=== PATIENT | female | born 1990 | race Caucasian/White ===

== ENCOUNTER 2021-06-30 10:12 | Emergency (ER) | payer BC, SELFPAY ==
[2021-06-30 10:47] VITALS: BP 124/84; PULSE 100; RESP 18; TEMP 36.6; O2SAT 100
--- NOTE | 2021-06-30 11:10 | ED.GENADULT ---
HPI - General Adult General Chief complaint: Upper Respiratory Infection Stated complaint: nasal congestion Time Seen by Provider: 06/30/21 11:10 Source: patient Mode of arrival: ambulatory Limitations: no limitations History of Present Illness HPI narrative: 30-year-old female patient presents to the [facility] with complaints of nasal congestion that started yesterday. Patient states she is also had some drainage to the back of her throat. Denies fevers, body aches or chills. Patient states she is taking Mucinex for her symptoms. Patient states she feels like a sinus infection is coming on. Patient states she was diagnosed with COVID last month and is fully vaccinated. Denies taking any daily antihistamines or Flonase. Patient recently gave last month but is not currently breast-feeding. Related Data Home Medications Medication Instructions Recorded Confirmed [id number] 1 pkg PO DAILY 06/30/21 06/30/21 [Chewable ] Allergies Allergy/AdvReac Type Severity Reaction Status Date / Time cefdinir Allergy Unknown Anaphylactic Verified 06/30/21 10:55 Shock clindamycin Allergy Unknown Verified 06/30/21 10:55 iodine Allergy Unknown surgical Verified 06/30/21 10:55 prep morphine Allergy Unknown Verified 06/30/21 10:55 povidone-iodine Allergy Unknown RASH Verified 06/30/21 10:55 soap Allergy Unknown RASH Verified 06/30/21 10:55 Sulfa (Sulfonamide Allergy Unknown Verified 06/30/21 10:55 Antibiotics) Review of Systems Review of Systems: CONSTITUTIONAL: Denies fever, chills, or sweats. EYES: Denies visual changes, redness, or discharge. ENT: Positive rhinorrhea, congestion, sore throat, denies otalgia. CARDIOVASCULAR: Denies chest pain, palpitations, or edema. RESPIRATORY: Denies cough or dyspnea. GASTROINTESTINAL: Denies abdominal pain, nausea, vomiting, or diarrhea. GENITOURINARY: Denies dysuria or hematuria. SKIN: Denies rash or itching. MUSCULOSKELETAL: Denies back pain, joint pain, or myalgia. NEUROLOGIC: Denies headache, numbness, or weakness. PSYCHIATRIC: Denies anxiety or depression. [facility] Past Medical History Medical History (Updated 06/30/21 @ 11:18 by GUILLERMO Flores) ADD (attention deficit disorder) Depression Eustachian tube disorder Tubes and ear as child Surgical History Surgical History (Updated 06/30/21 @ 11:11 by GUILLERMO Flores) History of orthopedic surgery Right ankle fracture with hardware Hx of cholecystectomy Family History Family History (Updated 06/30/21 @ 11:11 by GUILLERMO Flores) Grandparent Hypertension Family history of dementia Other Diabetes mellitus Heart disease Social History Social History Smoking status: Current every day smoker Alcohol intake: current Comments At the time of my signature I agree with nursing past medical history, surgical, social, and family history. There is no relevant family history pertinent to the presenting complaint. Exam Narrative: GENERAL: Well-appearing, well-nourished, and in no acute distress. HEAD: Normocephalic, atraumatic. EYES: PERRLA and EOMI. ENT: Nares with erythema and edema noted to the left nare, no rhinorrhea or epistaxis. Mucous membranes moist. Posterior pharynx no erythema, tonsillar lodgment, exudates or lesions present. Bilateral TMs are clear with no erythema or foreign body to the canal. Slight fluid noted behind the tympanic membrane of the right ear. NECK: Supple. No lymphadenopathy CHEST: Clear to auscultation. No respiratory distress. HEART: Regular rate and rhythm. No murmur heard. Normal peripheral pulses. ABDOMEN: Soft, nontender, nondistended, normal active bowel sounds. EXTREMITIES: Normal range of motion. No edema. SKIN: Warm, dry, no rash. NEURO: No focal deficits. Alert and oriented x3. Course Course Level of Care: Express Care Visit Vital Signs Vital signs
== END 2021-06-30 11:25 | disposition home or self-care (01) ==
PROVIDERS: Emergency Provider Nurse Practitioner Family; PCP Nurse Practitioner Family
DX: J30.9 Allergic rhinitis, unspecified (principal)
CPT/HCPCS: 99213; G0463

== ENCOUNTER 2023-05-16 10:07 | Outpatient (RCR) | payer OTHER, SELFPAY ==
--- NOTE | 2023-05-16 17:04 | PC.NURSE ---
In- 1007 Out- 1140 Reason for visit: latch issues History: mother has a history of infertility, she is unsure if she had a large blood loss but shares she believes the placenta was manually removed at [place] where she delivered on 05/13. Mother is a former smoker. She was diagnosis with PCOS as a teenager, yet during fertility testing was told she did not have PCOS. She receives IV infusion of Entyvio for her Chrohn's disease and according to [facility] there is a potential for decreased breast milk. Introductions were made yesterday evening when the parents brought their infant to [place] for a bilirubin test that resulted at 13.1 and did not require medical treatment. Infant was latched to the mothers breast on the left breast, the self detached and nipple was slightly misshaped with flattening on the underside. Mother has purple color to the tips of her nipples so there's a concern for Raynaud's syndrome. Discussed warmth to her nipples. Today is post day 3 so, last evening we were not surprised by the breast milk volume not fully in, however; today her breast are firm, filling and mother is able to express the milk easily with her hands. There were no immediate concerns so we made a LC appt for Friday morning giving mother positioning suggestions, is being supplemented, and making sure was latched deeply to prevent pain. Observations: Infant is weighed, then placed upright on mothers chest. When infant demonstrates feeding cues. Infant is brought to the breast. Infant has a big, open, wide gape, however; sucks once, then holds nipple in the mouth. This action was repeated multiple attempts, then waited 30 minutes, then attempted multiple times again with infant repeating the same actions. We discussed her pumps and breast shield sizes. She has a portable pump that I discouraged using based on research doesn't support that type of pump building a adequate milk supply. She also has a Spectra 2 with breast shield sizes 21mm. Mothers nipples measure 12mm and she was instructed to order a smaller breast shield as having one that is too big can cause injury and decrease the milk supply. weight: Mother reports weight 7-0, Lowest weight: 6-8, Last weight: 6-8 Pre-feed weight: 6-9.8 Post-feed weight: Not done as did not breastfeed Plan of Care: Mother will attempt to breastfeed and was instructed to supplement 1.5 oz (EBM or formula) after every feeding if eats 10 times in a 24 hour period of time. Explained to mother that would require less if fed more frequently and fed more supplement if fed less frequently. Mother given pumping instructions for encouraging her milk supply to come to full volume pumping 8 times in 24 hours with 1-2 times at night and to purchase a smaller breast shield. Mother voiced understanding of the information and was given written instructions for pumping, latching, and increasing milk. Reviewed how to find IBCLC resources or MD assistance over the weekend. Follow up plans: Mother will be returning to [facility] 2/3 for 's bilirubin and Laura VENCES is aware of the LC visit and how to make contact with me if needed. Mother will call the next week to follow up. *Follow up phone call margarette mother confirmed she purchased a 15mm breast shield and it will be delivered to her home tomorrow.
== END 2023-08-14 23:59 | disposition home or self-care (01) ==
LOC: ANHOBOP 10:07
PROVIDERS: PCP Nurse Practitioner Family; Visit Provider Pediatrics
DX: Z39.1 Encounter for care and examination of lactating mother (principal)
CPT/HCPCS: 99203; G0463

== ENCOUNTER 2024-04-04 08:05 | Emergency (ER) | payer OTHER, SELFPAY ==
[2024-04-04 08:17] VITALS: BP 123/73; PULSE 98; RESP 18; TEMP 36.6; O2SAT 99
--- NOTE | 2024-04-04 08:21 | ED_ITS ---
HPI - URI/Sore Throat General Chief Complaint: Upper Respiratory Infection Stated Complaint: throat pain Time Seen by Provider: 04/04/24 08:21 Source: patient, RN notes reviewed and old records reviewed Mode of arrival: ambulatory Limitations: no limitations History of Present Illness HPI Narrative: 33-year-old female who presents Express Care with complaints of sinus congestion and drainage on Friday and throat pain started 2 days ago with some difficulty swallowing and pain. patient reports that she has some radiating discomfort to her bilateral ears also. Patient reports she has been taking Zyrtec, Tylenol, and using cough drops. Patient reports she has not had any fevers. MD elicited complaint: sore throat, rhinorrhea, nasal congestion and other ( ear pain) Onset (ago): day(s) ( 5 days nasal congestion and drainage 3 days of sore throat) Consistency: constant Pain scale (0-10): 5 Able to tolerate fluids by mouth: Yes Treatments prior to arrival: acetaminophen and other ( cough drops and Zyrtec) Related Data Home Medications ?Medication ?Instructions ?Recorded ?Confirmed ?Last Taken ?Type vedolizumab 300 mg intravenous 300 mg IV .monthy 07/11/23 02/27/24 Unknown History solution (Entyvio) cetirizine 10 mg capsule (All Day 10 mg PO DAILY PRN 02/27/24 02/27/24 Unknown History Allergy (cetirizine)) Allergies Allergy/AdvReac Type Severity Reaction Status Date / Time clindamycin Allergy Severe Anaphylaxis Verified 04/04/24 08:19 cefdinir Allergy Unknown Anaphylactic Verified 04/04/24 08:19 Shock iodine Allergy Unknown rash Verified 04/04/24 08:19 povidone-iodine Allergy Unknown RASH Verified 04/04/24 08:19 soap Allergy Unknown RASH Verified 04/04/24 08:19 Sulfa (Sulfonamide Allergy Unknown Anaphylactic Verified 04/04/24 08:19 Antibiotics) Shock morphine AdvReac Intermediate Itching Verified 04/04/24 08:19 Review of Systems Review of Systems: CONSTITUTIONAL: reports malaise, no chills, sweats, or fever. EYES: Denies visual changes, redness, or discharge. ENT: Reports rhinorrhea, congestion, no sinus pain, positive otalgia and positive sore throat. CARDIOVASCULAR: Denies chest pain, palpitations, or edema. RESPIRATORY: Reports no cough.? Denies dyspnea. GASTROINTESTINAL: Denies abdominal pain, nausea, vomiting, diarrhea SKIN: Denies rash or itching. MUSCULOSKELETAL: Denies myalgia. NEUROLOGIC: Denies headache. All systems reviewed & are unremarkable except as noted in HPI and below PMFSH Past Medical History Medical History (Updated 04/04/24 @ 08:40 by Juliane Minaya NP) History of pre-eclampsia Obese Crohn's colitis Gestational diabetes Eustachian tube disorder Tubes and ear as child Depression ADD (attention deficit disorder) Surgical History Surgical History (Updated 04/04/24 @ 08:37 by Juliane Minaya NP) History of placement of ear tubes as child H/O LEEP ~2014 History of orthopedic surgery Right ankle fracture with hardware Hx of cholecystectomy Family History Family History Grandparent Hypertension Family history of dementia Heart disease Mother Diabetes mellitus Hypertension Social History Social History Smoking status: Former smoker Alcohol intake: current Substance use: never Do You Feel Safe in your Home?: Yes Lack of Transportation: No Lack of Food: Never True Current Housing: I Have Housing Concerned About Future Housing: No Difficulty Paying Gas/Electric Bills: No Difficulty Paying for Meds: No Currently Unemployed: No Education: Don't Know Difficulty w/ Childcare or Family Care: No Living arrangements: with family Occupation/Education: occupation 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 There is no relevant family history pertinent to the presenting complaint Exam Narrative: GENERAL: Well-appearing, well-nourished, and in no acute distress. HEAD: Normocephalic EYES: PERRLA, conjunctivae clear ENT: Nares clear, turbinates edematous and erythematous, clear discharge. Mucous membranes moist. TM pearly bryan with dull light reflex bilaterally; no tragal tenderness. Oropharynx erythematous without lesions. Tonsils huge red enlarged and without exudate, no drooling, no hoarseness, no trismus, uvula midline and swollen, some postnasal drainage NECK: Supple. positive lymphadenopathy CHEST: Clear to auscultation, breath sounds equal. No wheezing, rhonchi, rales, or stridor. No respiratory distress, speaks in full sentences. SaO2 99% on room air HEART: Regular rate and rhythm. No murmur heard. SKIN: Warm, dry, no rash. NEURO: Alert and oriented x3. PSYCH: Normal mood and affect Course Course Emergency Course: Patient is aware of diagnosis, understands and agrees to treatment plan.? Anticipatory guidance given.? Patient agrees to follow-up as directed and is aware of reasons to seek care at the emergency department. Portions of this record may have been created with voice recognition software Level of Care: Express Care Visit Vital Signs Vital signs: Vital Signs Temperature 36.6 C 04/04/24 08:17 Pulse Rate 98 04/04/24 08:17 Respiratory Rate 18 04/04/24 08:17 Blood Pressure 123/73 04/04/24 08:17 Pulse Oximetry 99 04/04/24 08:17 Oxygen Delivery Room Air 04/04/24 08:17 Temperature 36.6 C 04/04/24 08:17 Pulse Rate 98 04/04/24 08:17 Respiratory Rate 18 04/04/24 08:17 Blood Pressure 123/73 04/04/24 08:17 Pulse Oximetry 99 04/04/24 08:17 Oxygen Delivery Room Air 04/04/24 08:17 Reviewed MDM - URI/Sore Throat MDM Narrative Medical decision making narrative: Differential diagnosis considered: Gonzáles virus, strep pharyngitis, allergic rhinitis, upper respiratory tract infection, sinusitis, rhinosinusitis, nasopharyngitis. viral pharyngitis, otitis media, otitis externa, pneumonia, bronchitis, viral cough syndrome, viral syndrome, and influenza.? Exam findings show no acute concerns or changes; patient is non-toxic appearing and is in no distress.? Patient is appropriate for outpatient treatment and follow-up. Differential Diagnosis Differential diagnosis: Likely upper respiratory infection, sinusitis, viral infection, pharyngitis and other ( strep pharyngitis) Medical Records Attestation: I reviewed the patient's medical records. Lab Data Attestation: I reviewed the patient's lab results. Lab results narrative: strep screen positive Labs: Lab Results 04/04/24 Range/Units 08:32 POC Grp A Strep Screen Positive (Negative) Critical Care Time Critical Care Time Critical Care Time: No Discharge Plan Discharge Clinical Impression: Acute streptococcal pharyngitis Patient Disposition: Home, Self-Care Condition: Stable Instructions: Antibiotic Form, Strep Throat (ED) Additional Instructions: You tested positive for Group A strep . Take the entire course of antibiotics. Throw away your current toothbrush and begin using a new toothbrush in 48 hours in order to prevent re-infection. Sanitize all reusable water bottles . Do not share items with others. Salt water gargles may alleviate some of the throat discomfort. You can take tylenol or ibuprofen per the package instructions for pain/fever. If your symptoms persist, change or worsen significantly before you can contact your personal physician then please, without delay, go to the emergency department for further evaluation. Follow-up with PCP in 7-10 days or sooner if needed Follow up with PCP soon in regards to your blood pressure which is elevated above threshold for referral. Blood pressure above 120/80 may indicate pre- hypertension.Minimal elevation at 123/73 Patient Language: Polish Prescriptions: New amoxicillin 500 mg capsule 500 mg PO Q8H Qty: 30 0RF dexamethasone 6 mg tablet 12 mg PO DAILY 2 Days Qty: 4 0RF No Action etonogestrel-ethinyl estradiol [NuvaRing] 0.12-0.015 mg/24 hr ring 1 vag ring vaginal Q21D Qty: 4 1RF Rx Instructions: place ring vaginally every 21 days to skip cycles Entyvio 300 mg recon soln 300 mg IV .monthy Rx Instructions: administer over 30 mins All Day Allergy (cetirizine) 10 mg capsule 10 mg PO DAILY PRN dextroamphetamine-amphetamine 20 mg capsule,extended release 24hr 20 mg PO DAILY Qty: 30 0RF Follow-up/Referrals: Judy Fishman APRN [Primary Care Provider] - Stand Alone Forms: Work/School Release IP Time of Disposition: 08:52 Quality [place] Coma Scale Eyes: Open Verbal: Oriented and Alert Motor: Follows Commands [place] Coma Total Score: 15
[2024-04-04 08:34] LABS: EDSTREPNEGPOS1 Positive (Negative)
--- OUTSIDE RECORDS SUMMARY | 2024-04-11 06:09 | XMS_ITS | Data Portability ---
Author Organization [place] - [facility] [employer], Main Office Address [address] [place] [address] Assessment No assessment recorded. Plan of Treatment Reminders Order Date Submit Date Provider Last Modified By Organization Details Last Modified Time Details Appointments None record ed. Lab None record ed. Referral None record ed. Procedures None record ed. Surgeries None record ed. Imaging None record ed. Medication Orders None record ed. Patient TargetsNo targets recorded. Patient Instructions Encounter Date Encounter Id Patient Instructions Last Modified By Organization Details Last Modified Time 11/22/2022 [id number] mo fu crohn's, htn, etc. [email or web address] Not available 11/22/2022 10:42:40 Reason for Referral None Reported. Results Created Date Observation Date Name Description Value Unit Range Abnormal Flag Note LastModifiedBy Organization Detail LastModifiedTime 04/12/20 22 04/13/2022 HEMOG LOBIN A1C hemoglobin A1C 5.6 %_of_ total _HGB <5.7 normal For the purpo se of maryan sales for the prese nce of diabe maribell: <5.7% Consi stent with the absen ce of diabe maribell 5.7-6 .4% Consi stent with incre ased risk for diabe maribell (pred iabet es) > or =6.5% Consi stent with diabe maribell This assay resul t is consi stent with a decre ased risk of diabe maribell. Curre ntly, no conse nsus exist alban oliveros use of hemog lobin A1c for diagn osis of diabe maribell in child david. Accor domo to Ameri can Diabe maribell Assoc iatio n (ADA) guide lines , hemog lobin A1c <7.0% repre sents optim al contr ol in non-p regna nt diabe tic patie nts. Diffe rent metri cs may apply to speci fic patie nt popul ation s. Stand ards of Medic al Care in Diabe maribell(A DA). Not Available [address], [address], 04/13/2022 06:48:05 04/12/20 22 04/13/2022 TSH W/REF ADAL TO FT4 TSH w/reflex to FT4 0.53 mIU/L normal Refer ence Range > or = 20 Years 0.40- 4.50 Pregn hermann Range s First trime ster 0.26- 2.66 Secon d trime ster 0.55- 2.73 Third trime ster 0.43- 2.91 Not Available [address], [address], 04/13/2022 06:48:04 04/12/20 22 04/13/2022 CBC (INCL UDES DIFF/ PLT) white blood cell count 9.9 thous and/u L 3.8-10 .8 normal Not Available [address], [address], 04/13/2022 06:48:04 04/12/20 22 04/13/2022 CBC (INCL UDES DIFF/ PLT) red blood cell count 4.57 dalila on/uL 3.80-5 .10 normal Not Available [address], [address], 04/13/2022 06:48:04 04/12/20 22 04/13/2022 CBC (INCL UDES DIFF/ PLT) hemoglobin 11.7 g/dL 11.7-1 5.5 normal Not Available [address], [address], 04/13/2022 06:48:04 04/12/20 22 04/13/2022 CBC (INCL UDES DIFF/ PLT) hematocrit 36.6 % 35.0-4 5.0 normal Not Available [address], [address], 04/13/2022 06:48:04 04/12/20 22 04/13/2022 CBC (INCL UDES DIFF/ PLT) MCV 80.1 fL 80.0-1 00.0 normal Not Available [address], [address], 04/13/2022 06:48:04 04/12/20 22 04/13/2022 CBC (INCL UDES DIFF/ PLT) MCH 25.6 pg 27.0-3 3.0 low Not Available [address], [address], 04/13/2022 06:48:04 04/12/20 22 04/13/2022 CBC (INCL UDES DIFF/ PLT) MCHC 32.0 g/dL 32.0-3 6.0 normal Not Available [address], [address], 04/13/2022 06:48:04 04/12/20 22 04/13/2022 CBC (INCL UDES DIFF/ PLT) RDW 15.1 % 11.0-1 5.0 high Not Available [address], [address], 04/13/2022 06:48:04 04/12/20 22 04/13/2022 CBC (INCL UDES DIFF/ PLT) platelet count 354 thous and/u L 140-40 0 normal Not Available [address], [address], 04/13/2022 06:48:04 04/12/20 22 04/13/2022 CBC (INCL UDES DIFF/ PLT) MPV 10.3 fL 7.5-12 .5 normal Not Available [address], [address], 04/13/2022 06:48:04 04/12/20 22 04/13/2022 CBC (INCL UDES DIFF/ PLT) absolute neutrophils 6475 cells /uL 1500-7 800 normal Not Available [address], [address], 04/13/2022 06:48:04 04/12/20 22 04/13/2022 CBC (INCL UDES DIFF/ PLT) absolute lymphocytes 2604 cells /uL 850-39 00 normal Not Available [address], [address], 04/13/2022 06:48:04 04/12/20 22 04/13/2022 CBC (INCL UDES DIFF/ PLT) absolute monocytes 465 cells /uL 200-95 0 normal Not Available [address], [address], 04/13/2022 06:48:04 04/12/20 22 04/13/2022 CBC (INCL UDES DIFF/ PLT) absolute eosinophils 317 cells /uL 15-500 normal Not Available [address], [address], 04/13/2022 06:48:04 04/12/20 22 04/13/2022 CBC (INCL UDES DIFF/ PLT) absolute basophils 40 cells /uL 0-200 normal Not Available [address], [address], 04/13/2022 06:48:04 04/12/20 22 04/13/2022 CBC (INCL UDES DIFF/ PLT) neutrophils 65.4 % normal Not Available [address], [address], 04/13/2022 06:48:04 04/12/20 22 04/13/2022 CBC (INCL UDES DIFF/ PLT) lymphocytes 26.3 % normal Not Available [address], [address], 04/13/2022 06:48:04 04/12/20 22 04/13/2022 CBC (INCL UDES DIFF/ PLT) monocytes 4.7 % normal Not Available [address], [address], 04/13/2022 06:48:04 04/12/20 22 04/13/2022 CBC (INCL UDES DIFF/ PLT) eosinophils 3.2 % normal Not Available [address], [address], 04/13/2022 06:48:04 04/12/20 22 04/13/2022 CBC (INCL UDES DIFF/ PLT) basophils 0.4 % normal Not Available [address], [address], 04/13/2022 06:48:04 04/12/20 22 04/13/2022 COMPR EHENS MONSTER METAB OLIC PANEL glucose 93 mg/dL 65-99 normal Fasti ng refer ence inter vanessa Not Available [address], [address], 04/13/2022 06:48:03 04/12/20 22 04/13/2022 COMPR EHENS MONSTER METAB OLIC PANEL urea nitrogen (BUN) 10 mg/dL 7-25 normal Not Available [address], [address], 04/13/2022 06:48:03 04/12/20 22 04/13/2022 COMPR EHENS MONSTER METAB OLIC PANEL creatinine 0.59 mg/dL 0.50-0 .96 normal Not Available [address], [address], 04/13/2022 06:48:03 04/12/20 22 04/13/2022 COMPR EHENS MONSTER METAB OLIC PANEL eGFR 125 mL/mi n/1.7 3m2 > or = 60 normal The eGFR is based on the CKD-E PI 2020 equat ion. To calcu late the new eGFR from a previ ous Creat inine or Cysta tin C resul t, go to https :[email or web address] [email or web address] taylor s/ kdoqi /gfr% 5Fcal culat or Not Available [address] [address] [place], [address], 04/13/2022 06:48:03 04/12/20 22 04/13/2022 COMPR EHENS MONSTER METAB OLIC PANEL BUN/creatini ne ratio not applic able (calc ) 6-22 Not Available [address], [address], 04/13/2022 06:48:03 04/12/20 22 04/13/2022 COMPR EHENS MONSTER METAB OLIC PANEL sodium 141 mmol/ L 135-14 6 normal Not Available [address], [address], 04/13/2022 06:48:03 04/12/20 22 04/13/2022 COMPR EHENS MONSTER METAB OLIC PANEL potassium 4.4 mmol/ L 3.5-5. 3 normal Not Available [address], [address], 04/13/2022 06:48:03 04/12/20 22 04/13/2022 COMPR EHENS MONSTER METAB OLIC PANEL chloride 107 mmol/ L 98-110 normal Not Available [address], [address], 04/13/2022 06:48:03 04/12/20 22 04/13/2022 COMPR EHENS MONSTER METAB OLIC PANEL carbon dioxide 27 mmol/ L 20-32 normal Not Available [address] [address] [place], [address], 04/13/2022 06:48:03 04/12/20 22 04/13/2022 COMPR EHENS MONSTER METAB OLIC PANEL calcium 8.9 mg/dL 8.6-10 .2 normal Not Available [address], [address], 04/13/2022 06:48:03 04/12/20 22 04/13/2022 COMPR EHENS MONSTER METAB OLIC PANEL protein, total 6.9 g/dL 6.1-8. 1 normal Not Available [address], [address], 04/13/2022 06:48:03 04/12/20 22 04/13/2022 COMPR EHENS MONSTER METAB OLIC PANEL albumin 3.9 g/dL 3.6-5. 1 normal Not Available [address], [address], 04/13/2022 06:48:03 04/12/20 22 04/13/2022 COMPR EHENS MONSTER METAB OLIC PANEL globulin 3.0 g/dL_ (calc ) 1.9-3. 7 normal Not Available [address], [address], 04/13/2022 06:48:03 04/12/20 22 04/13/2022 COMPR EHENS MONSTER METAB OLIC PANEL albumin/glob ulin ratio 1.3 (calc ) 1.0-2. 5 normal Not Available [address], [address], 04/13/2022 06:48:03 04/12/20 22 04/13/2022 COMPR EHENS MONSTER METAB OLIC PANEL bilirubin, total 0.4 mg/dL 0.2-1. 2 normal Not Available [address], [address], 04/13/2022 06:48:03 04/12/20 22 04/13/2022 COMPR EHENS MONSTER METAB OLIC PANEL alkaline phosphatase 77 U/L 31-125 normal Not Available [address] [place], [address], 04/13/2022 06:48:03 04/12/20 22 04/13/2022 COMPR EHENS MONSTER METAB OLIC PANEL AST 12 U/L 10-30 normal Not Available [address] [address] [place], [address], 04/13/2022 06:48:03 04/12/20 22 04/13/2022 COMPR EHENS MONSTER METAB OLIC PANEL ALT 17 U/L 6-29 normal Not Available [address] [place], [address], 04/13/2022 06:48:03 04/12/20 22 04/13/2022 LIPID PANEL , STAND DUSTIN cholesterol, total 132 mg/dL <200 normal Not Available [address], [address], 04/13/2022 06:48:03 04/12/20 22 04/13/2022 LIPID PANEL , STAND DUSTIN HDL cholesterol 36 mg/dL > or = 50 low Not Available [address], [address], 04/13/2022 06:48:03 04/12/20 22 04/13/2022 LIPID PANEL , STAND DUSTIN triglyceride s 98 mg/dL <150 normal Not Available [address], [address], 04/13/2022 06:48:03 04/12/20 22 04/13/2022 LIPID PANEL , STAND DUSTIN LDL-choleste rol 78 mg/dL _(kim c) normal Refer ence range : <100 Eileen able range <100 mg/dL for prima ry preve ntion ; <70 mg/dL for patie nts with CHD or diabe tic patie nts with > or = 2 CHD risk facto rs. LDL-C is now calcu lated using the [facility] n-Hop kins calcu fatou n, which is a valid ated novel metho d provi ding edy r accur acy than the Fried ketty equat ion in the estim ation of LDL-C . Leslie n SS et al. SANCHEZ. 2013; 310(1 9): 2061- 2068 (http ://ed ucati on.Qu Alexey nicoleBladeLogic. com/f aq/FA Q164) Not Available [address] [address] [address], [place], [address], 04/13/2022 06:48:03 04/12/20 22 04/13/2022 LIPID PANEL , STAND DUSTIN chol/HDLC ratio 3.7 (calc ) <5.0 normal Not Available [address] [address] [address], [place], [address], 04/13/2022 06:48:03 04/12/20 22 04/13/2022 LIPID PANEL , STAND DUSTIN non HDL cholesterol 96 mg/dL _(kim c) <130 normal For patie nts with diabe maribell plus 1 major ASCVD risk facto r, treat ing to a non-H DL-C goal of <100 mg/dL (LDL- C of <70 mg/dL ) is toby schultz n. Not Available [facility] [address] [address] , [place], [address], 04/13/2022 06:48:03 Result Notes None recorded. Problems Name Problem SNOMED Code Status Onset Date Resolution Date Notes Provider Name and Address Organization Details Recorded Time Abscess 353040480 Completed Not Available [facility] 3 09:24:18 Acute sinusiti s 74465740 Completed Not Available [facility] 3 09:24:18 Pain in throat 644744001 Completed Not Available [facility] 3 09:24:18 Dry skin 23066101 Completed 201612/03/2016 Not Available [facility] 3 09:24:19 Impacted cerumen 85718511 Completed 201612/03/2016 Not Available [facility] 3 09:24:19 Fluid level behind tympanic membrane Completed Not Available [facility] 3 09:24:19 Gastroen teritis 56793715 Completed Not Available [facility] 3 09:24:19 On examinat ion - rash present Completed Not Available [facility] 3 09:24:19 Eruption 857076465 Completed Not Available [facility] 3 09:24:19 Pruritic disorder 373951409 Completed Not Available [facility] 3 09:24:19 Crohn's disease 00651976 Active [address] Trent Severino MD GI. Not Available [facility] 3 09:24:19 Fever 212736150 Completed Not Available [facility] 3 09:24:19 Pharyngi tis 305742225 Completed Not Available [facility] 3 09:24:20 Itching of skin 537553665 Completed Not Available [facility] 3 09:24:20 Cough 82780003 Completed Not Available [facility] 3 09:24:20 Upper respirat ory infectio n 24919974 Completed Not Available [facility] 3 09:24:20 Swelling 99694600 Completed 201612/03/2016 Not Available [facility] 3 09:24:20 Posterio r rhinorrh ea 94500695 Completed Not Available [facility] 3 09:24:20 Congesti on of nasal sinus 33108774 Completed Not Available [facility] 3 09:24:20 Fatigue 05353421 Completed Not Available [facility] 3 09:24:21 Obese 686464921 Active 2022 Judy Fishman NP [address] [facility], [facility] [address], [place], [address] , [facility] 3 08:20:25 Problem Notes None recorded. Medical Equipment None Reported. Allergies Allergen ID Allergen Name Allergen Category Reaction Reaction Severity Criticality Documentation Date Start Date Code Code System Note Provider Name and Address Organization Details Recorded Time 96140 Substance with sulfonami de structure and antibacte rial mechanism of action (substanc e) medicatio n anaphylax is Not available Not available 06/12/2022 45827 8003 SNOMED Not Available [facility] 3 09:27:25 48027 Omnicef medicatio n anaphylax is Not available Not available 06/12/2022 39267 RxNorm Not Available [facility] 3 09:27:25 06602 morphine medicatio n itching Not available Not available 06/12/2022 7052 RxNorm Not Available [facility] 3 09:27:25 74219 iodine medicatio n rash moderate Not available 06/12/2022 5933 RxNorm Used iodin e to prep for gallb ladde r remov al Not Available [facility] 3 09:27:26 51573 clindamyc in Not available Not available Not available Not available 06/12/2022 2582 RxNorm Not Available [facility] 3 09:27:26 Medications Name Sig Start Date Stop Date Status Note LastModified by Organization Details LastModified Time cyclobenz aprine 10 mg tablet TK 1 T PO HS 09/26 completed as needed Not Available Not Available Not Available metformin 500 mg tablet Take 1 tablet twice a day by oral route for 90 days. 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 Not Available Not Available Not Available prednison e 10 mg tablet 11/22 completed Not Available Not Available Not Available Vitamin B-6 25 mg tablet TAKE 1 TABLET BY MOUTH THREE TIMES DAILY 11/22 completed Not Available Not Available Not Available famotidin e 10 mg tablet TK 1 T PO D 06/19 completed Not Available Not Available Not Available triamcino lone acetonide 0.5 % topical cream APPLY A THIN LAYER TO THE AFFECTED AREA(S) on arm and hip BY TOPICAL ROUTE 2 TIMES PER DAY for 7-10 days active Not Available Not Available No t Available cetirizin e 10 mg tablet TAKE 1 TABLET BY MOUTH EVERY DAY 03/29 completed Not Available Not Available Not Available azithromy jose 250 mg tablet ZPK 03/29 completed Not Available Not Available Not Available fluconazo le 150 mg tablet TK 1 T PO QD FOR 1 DAY 09/26 completed Not Available Not Available Not Available benzonata te 200 mg capsule TK 1 C PO TID PRF COUGH active Not Available Not Available No t Available glyburide 2.5 mg tablet Take 1 tablet every day by oral route for 90 days. 05/01 completed Not Available Not Available Not Available hydrocodo ne 5 mg-acetam inophen 325 mg tablet TK 1 T PO Q 4 TO 6 H PRN 09/26 completed Not Available Not Available Not Available Avelox 400 mg tablet Take 1 tablet every day by oral route with meals for 10 days. 12/30 completed Not Available Not Available Not Available metronida zole 0.75 % (37.5 mg/5 gram) vaginal gel IVB X 5 NIGHTS active Not Available Not Available No t Available prednison e 20 mg tablet TK 2 TS PO QD FOR 3 DAYS active Not Available Not Available No t Available terconazo le 0.8 % vaginal cream U 1 VAGINALL Y HS 05/09 completed Not Available Not Available Not Available diphenoxy late-atro pine 2.5 mg-0.025 mg tablet Take 2 tablets 4 times a day by oral route as needed for 2 days. 09/28 completed Not Available Not Available Not Available phentermi ne 37.5 mg tablet TK 1 T PO QAM 09/28 completed Not Available Not Available Not Available prochlorp erazine maleate 10 mg tablet 11/22 completed Not Available Not Available Not Available ciproflox acin 500 mg tablet Take 1 tablet every 12 hours by oral route for 7 days. active Not Available Not Available No t Available ondansetr on 8 mg disintegr ating tablet DIS 1 T ON THE TONGUE Q 8 H PRN active pt stated that she is not taking this medicati on Not Available Not Available Not Available Tessalon Perles 100 mg capsule Take 1 capsule every 4-6 hours by oral route as directed for 15 days. 01/04 completed Not Available Not Available Not Available methocarb delta 750 mg tablet Take 1 tablet every 4 hours by oral route as needed. active Not Available Not Available No t Available diphenhyd ramine 25 mg capsule TK 1 C PO Q 4 TO 6 H PRN FOR 15 DAYS active Not Available Not Available No t Available oseltamiv ir 75 mg capsule Take 1 capsule every day by oral route for 7 days. active Not Available Not Available No t Available ranitidin e 150 mg tablet TK 1 T PO BID FOR 15 DAYS active Not Available Not Available No t Available naproxen 500 mg tablet,de layed release TK 1 T PO BID WF 06/19 completed Not Available Not Available Not Available hydrocort isone 2.5 % topical cream APPLY TOPICALL Y TO THE AFFECTED AREA TWICE DAILY 03/29 completed Not Available Not Available Not Available norgestim ate-ethin yl estradiol 0.18 mg/0.215m g/0.25mg- 35 mcg(28)ta blet Take 1 tablet every day by oral route for 84 days. 09/19 completed Not Available Not Available Not Available Baby Aspirin 81 mg chewable tablet Chew 1 tablet every day by oral route. active Not Available Not Available No t Available mupirocin 2 % topical ointment 05/09 completed Not Available Not Available Not Available Levaquin 500 mg tablet Take 1 tablet every 24 hours by oral route for 10 days. 03/01 completed Not Available Not Available Not Available ergocalci ferol (vitamin D2) 1,250 mcg (50,000 unit) capsule active Not Available Not Available Not Available ibuprofen 600 mg tablet 11/22 completed Not Available Not Available Not Available methylpre dnisolone 4 mg tablets in a dose pack TK UTD 09/26 completed Not Available Not Available Not Available fluticaso ne propionat e 50 mcg/actua tion nasal spray,genia pension ADMINIST ER 1 SPRAY IN EACH NOSTRIL EVERY DAY 03/29 completed Not Available Not Available Not Available naproxen 500 mg tablet TK 1 T PO BID PRN 09/19 completed Not Available Not Available Not Available amoxicill in 875 mg-potass ium clavulana te 125 mg tablet active Not Available Not Available Not Available hydroxyzi ne pamoate 25 mg capsule 05/09 completed Not Available Not Available Not Available azithromy jose 500 mg tablet TK 2 TS PO IMMEDIAT TENISHA active Not Available Not Available No t Available tinidazol e 500 mg tablet 01/31 completed Not Available Not Available Not Available nitrofura ntoin monohydra te/macroc rystals 100 mg capsule TK ONE C PO Q 12 H FOR 7 DAYS 05/09 completed Not Available Not Available Not Available Mucinex DM 30 mg-600 mg tablet,ex tended release 12 hr Take 1 tablet every 12 hours by oral route as directed for 14 days. 01/03 completed Not Available Not Available Not Available BD Ultra-Fin e Mini Pen Needle 31 gauge x 3/16 USE DAILY DIRECTED 11/22 completed Not Available Not Available Not Available Vitamin daily active Not Available Not Available Not Available SINGH (28) 3 mg-0.02 mg tablet Take 1 tablet every day by oral route for 84 days. active Not Available Not Available No t Available Ariana 3 mg-0.03 mg tablet Take 1 tablet every day by oral route for 84 days. 09/28 completed Not Available Not Available Not Available OneTouch Verio test strips CHECK BLOOD GLUCOSE FASTING AND 1 HOUR AFTER EACH MEAL 09/28 completed Not Available Not Available Not Available Estarylla 0.25 mg-35 mcg tablet TAKE 1 TABLET BY MOUTH DAILY 09/28 completed Not Available Not Available Not Available Minastrin 24 Fe 1 mg-20 mcg (24)/75 mg (4) chewable tablet active Not Available Not Available Not Available Entyvio 300 mg intraveno us solution Inject by intraven ous route. active infusion every 4 weeks Not Available Not Available Not Available Fluvirin 4709-3509 45 mcg (15 mcg x 3)/0.5 mL intramusc ular suspensio n ADM 0.5ML UTD active Not Available Not Available No t Available Flucelvax Quad 1654-6094 (PF) 60 mcg (15 mcg x 4)/0.5 mL IM syringe active Not Available Not Available Not Available OneTouch Delica Plus Lancet 33 gauge TEST BLOOD SUGAR FASTING AND 1 HOUR AFTER EACH MEAL 09/28 completed Not Available Not Available Not Available Novolin N FlexPen 100 unit/mL (3 mL) subcutane ous insulin pen INJECT 12 UNITS UNDER THE SKIN EVERY DAY AT BEDTIME 09/28 completed Not Available Not Available Not Available OneTouch Verio Reflect Meter USE DIRECTED 09/28 completed Not Available Not Available Not Available Vitals Date Recorded Body mass index (BMI) Body height Oxygen saturation Oxygen saturation in Arterial blood by Pulse oximetry Heart rate Body temperature Body weight Systolic blood pressure Diastolic blood pressure Provider Name and Address Organization Details Last Updated DateTime 2 44.4 kg/m2 157.48 cm 97 % 97 % 76 /min 97.8 [degF] 287047. 95 g 118 mm[Hg] 76 mm[Hg] Not Available [facility] 3 09:21:47 Date Recorded Body mass index (BMI) Body height Oxygen saturation Oxygen saturation in Arterial blood by Pulse oximetry Heart rate Respiratory rate Body temperature Body weight Systolic blood pressure Diastolic blood pressure Provider Name and Address Organization Details Last Updated DateTime 2 45.2 kg/m2 157.48 cm 98 % 98 % 98 /min 18 /min 97.8 [degF] 965849. 32 g 138 mm[Hg] 90 mm[Hg] Not Available [facility] 3 09:21:47 Date Recorded Body mass index (BMI) Body height Oxygen saturation Oxygen saturation in Arterial blood by Pulse oximetry Heart rate Respiratory rate Body temperature Body weight Systolic blood pressure Diastolic blood pressure Provider Name and Address Organization Details Last Updated DateTime 3 44.1 kg/m2 157.48 cm 97 % 97 % 91 /min 16 /min 97 [degF] 942845. 12 g 132 mm[Hg] 77 mm[Hg] Not Available [facility] 3 09:21:47 Date Recorded Body height Body mass index (BMI) Body weight Body temperature Heart rate Respiratory rate Oxygen saturation Oxygen saturation in Arterial blood by Pulse oximetry Systolic blood pressure Diastolic blood pressure Provider Name and Address Organization Details Last Updated DateTime 3 157.48 cm 43.8 kg/m2 521087. 68 g 97 [degF] 89 /min 16 /min 98 % 98 % 128 mm[Hg] 80 mm[Hg] Judy Carrillo RN [facility] [email or web address] 3 10:07:36 Social History Question Answer Notes LastModified by Organizat ion Details LastModified Time Tobacco Smoking Status Former Smoker Judy Carrillo RN [facility], [facility] [employer] 11/22/2022 10:08:27 Do You Have An Advance Directive? No [id number] Information not available 06/12/2022 What Is Your Level Of Alcohol Consumption? Occasional [id number] Information not available 06/12/2022 Is Blood Transfusion Acceptable In An Emergency? Yes Information not available 11/22/2022 What Is Your Level Of Caffeine Consumption? Moderate [id number] Information not available 06/12/2022 What Is Your Code Status? Full Code Information not available 11/22/2022 In The 14 Days Before Symptom Onset, Have You Had Close Contact With A Laboratory-confi rmed COVID-19 While That Case Was Ill? No [id number] Information not available 06/12/2022 In The 14 Days Before Symptom Onset, Have You Had Close Contact With A Person Who Is Under Investigation For COVID-19 While That Person Was Ill? No [id number] Information not available 06/12/2022 What Type Of Diet Are You Following? 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 No [id number] Information not available 06/12/2022 Are There Any Guns Present In Your Home? No [id number] Information not available 06/12/2022 Do You Use Insect Repellent Routinely? Yes Information not available 11/22/2022 Where Do You Live? SingleLevelHouse Information not available 11/22/2022 Do You Have A Medical Power Of Wealth Management Advisor? No [id number] Information not available 06/12/2022 Do You Have Any Pets? Yes Information not available 11/22/2022 What Is Your Relationship Status? Single [id number] Information not available 06/12/2022 Do You Use Your Seat Belt Or Car Seat Routinely? Yes [id number] Information not available 06/12/2022 Do You Have Smoke And Carbon Monoxide Detectors In Your Home? Yes Information not available 11/22/2022 At What Age Did You Start Smoking Tobacco? 19 [id number] Information not available 06/12/2022 Are You Passively Exposed To Smoke? No [id number] Information not available 06/12/2022 Are There Any Smokers In Your House? No [id number] Information not available 06/12/2022 How Much Tobacco Do You Smoke? 0.25 PPD [id number] Information not available 06/12/2022 Do You Participate In Social Media? Yes Information not available 11/22/2022 Do You Feel Stressed (tense, Restless, Nervous, Or Anxious, Or Unable To Sleep At Night)? [id number] Information not available 11/22/2022 Do You Use Any Illicit Or Recreational Drugs? No [id number] Information not available 06/12/2022 Do You Use Sunscreen Routinely? Yes Information not available 11/22/2022 Has Tobacco Cessation Counseling Been Provided? No [id number] Information not available 06/12/2022 Have You Recently Traveled Abroad? No [id number] Information not available 06/12/2022 Are You Currently In School? No [id number] Information not available 06/12/2022 Do You Have Any Dietary Restrictions? No [id number].70821 [id number] Information not available 06/12/2022 Do You Or Have You Ever Used Any Other Forms Of Tobacco Or Nicotine? No [id number] [id number] Information not available 06/12/2022 Sex: Female Functional Status Question Answer Note LastModified by Organization D etails LastModified Time What is your exercise level? None Information not available 11/22/2022 Mental Status None recorded. Family History Nothing Reported. Medical History No medical history recorded. Gynecological History Statement/Question Response Date of Last Pap 01/12/2022 Date of LMP Obstetrics History GPAL:G 1 P 0 1 0 1 Type Value Premature 1 Living 1 Total 1 Immunizations Vaccine Type Date Status Note Provider Nam e and Address Organization Details Recorded Time Influenza, split virus, quadrivalent, preservative 7 completed Not Available [facility] 06/12/2022 09:27:10 Influenza, split virus, trivalent, preservative 6 completed Not Available [facility] 06/12/2022 09:27:11 SARS-COV-2 (COVID-19) vaccine, UNSPECIFIED 2 completed Not Available [facility] 06/12/2022 09:27:11 SARS-COV-2 (COVID-19) vaccine, UNSPECIFIED 1 completed Not Available [facility] 06/12/2022 09:27:11 SARS-COV-2 (COVID-19) vaccine, UNSPECIFIED 1 completed Not Available [facility] 06/12/2022 09:27:11 Influenza, split virus, trivalent, preservative 4 completed Not Available [facility] 06/12/2022 09:27:11 Influenza, split virus, trivalent, preservative 3 completed Not Available [facility] 06/12/2022 09:27:11 varicella 3 completed Not Available [facility] 06/12/2022 09:27:12 Past Encounters Encounter ID Performer Location Encounter Start Date Encounter Closed Date Diagnosis/Indication Diagnosis SNOMED-CT Code Diagnosis ICD10 Code [id number] [facility] [address] [place] [address] 01/04/2021 00:00:00 01/04/2021 15:26:21 [id number] [facility] [address] [place], [place] [address] [place] [address] 09/28/2021 00:00:00 09/28/2021 12:11:20 [id number] [facility] [address] [place] [address] 03/29/2022 00:00:00 03/29/2022 13:39:51 [id number] [facility] [address] [place] [address] 05/03/2022 00:00:00 05/03/2022 10:36:37 [id number] Judy Fishman NP [facility] [address] [place] [address] 11/22/2022 09:51:09 11/22/2022 10:44:14 Crohn's disease 54946197 K50.90 Obese [id number] E66.9 [id number] Z33.1 Health Concerns Section Related Observation LastModified by Organization Detai ls LastModified Time None Recorded Concern Status LastModified by Organization Details LastModified Time None Recorded Advance Directives Directive N: Payers Encounter Date Sequence Insurance Name Policy Number Policy [place] Covered Member ID Latham Member ID Guarantor Name 11/22/2022 1 [employer] - [facility] - CHOICE PLUS (PPO) [id number] Ramírez Mancilla [id number] Liliana Mancilla Notes Date Note Type Note Provider Name and Address Organization Details Recorded Time 11/22/2022 text/html Here for 6 mo fu . BP- Stable. on ASA 81 mgCrohn's disease- Getting home health to provide medication.Obese- Overweight Currently 14 weeks . Hx pre-eclampsia on ASA 81 mg. Working as usual. JONNATHAN: may 23, but son was 3 weeks early. Judy iFshman NP [address], [place], [address], [facility] [id number] 11/22/2022 10:42:56 OBGyn Episode No OBEpisode recorded.
--- OUTSIDE RECORDS SUMMARY | 2024-04-11 06:10 | XMS_ITS | Encounter Summary ---
Author Organization [facility] Address [address] [place] [address] Phone Care Team Providers Care Manager Ems Name Role Phone Judy Fishman NP Primary Care Provider + Jessica Martínez MD Unavailable [phone] Reason for Visit * Reason Comments High Risk Gestation Encounter Details Date Type Department Care Team (Late st Contact Info) Description 06/24/2023 10:00 AM CDT Office Visit [facility] Maternal- Medicine [address] [facility] 7th [address] [place] [address] care following vaginal delivery (Primary Dx); Urinary tract infection symptoms Social History Tobacco Use Types Packs/Day Years Used Date Smoking Tobacco: Former Cigarettes Q uit: 10/03/2020 Smokeless Tobacco: Never Tobacco Cessation:Counseling Given: Not Answered Alcohol Use Standard Drinks/Week Comments Yes 2 (1 standard drink = 0.6 oz pur e alcohol) Social Connection and Isolat ion Panel [NHANES] Answer Date Recorded In a typical week, how many times do you talk on the phone with family, friends, or neighbors? More than three times a week 05/14/2023 How often do you get togethe r with friends or relatives? Once a week 05/14/2023 How often do you attend chur or catholic services? 1 to 4 times per year 05/14/2023 Do you belong to any clubs o r organizations such as jainism groups, unions, fraternal or athletic groups, or school groups? Yes 05/14/2023 How often do you attend meet ings of the clubs or organizations you belong to? Never 05/14/2023 Are you , , di vorced, , never , or living with a partner? 05/14/2023 AUDIT-C Answer Date Recorded Q1: How often do you have a drink containing alc ohol? Never 07/04/2022 Average Number of Drinks Not on file 023 Frequency of Binge Drinking Not on file 06/13 Overall Financial Resource Strain (CARDIA) Answe r Date Recorded How hard is it for you to pa y for the very basics like food, housing, medical care, and heating? Not hard at all 05/14/2023 Hunger Vital Sign Answer Date Recorded Within the past 12 months, y ou worried that your food would run out before you got the money to buy more. Never true 05/14/19 24 Within the past 12 months, t he food you bought just didn't last and you didn't have money to get more. Never true 05/14/2023 PRAPARE - Transportation Answer Date Re corded In the past 12 months, has l ack of transportation kept you from medical appointments or from getting medications? No 04/16 In the past 12 months, has l ack of transportation kept you from meetings, work, or from getting things needed for daily living? No 05/14/2023 Housing Stability Vital Sign Answer Héctor e Recorded In the last 12 months, was t here a time when you were not able to pay the mortgage or rent on time? No 05/14/2023 In the last 12 months, how many places have you lived? 1 05/14/2023 In the last 12 months, was t here a time when you did not have a steady place to sleep or slept in a fci (including now)? No 05/14/2023 Cromwell Depression Scale Answer Date Recorded Cromwell Depression Scale Total 0 06/24/2023 The thought of harming myself has occurred to me . Never 06/24/2023 Personal Safety Answer Date Recorded Have you ever been in or are you currently in a harmful physical or emotional relationship or is someone making you feel afraid or unsafe? 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 Gender Identity Not on file Sexual Orientation Not on file documented as of this encounter Last Filed Vital Signs Vital Sign Reading Time Taken Comments Blood Pressure 125/87 06/24/2023 9:52 AM CDT Pulse 83 06/24/2023 9:52 AM CDT Temperature - - Respiratory Rate - - Oxygen Saturation 97% 06/24/2023 9:52 AM CDT Inhaled Oxygen Concentration - - Weight 109.8 kg (242 lb) 06/24/2023 9:52 AM CDT Height 157.5 cm (5' 2 ) 06/24/2023 9:52 AM CDT Body Mass Index 44.26 06/24/2023 9:52 AM CDT documented in this encounter Progress Notes * Judy Polanco, BRAIN PICKER - 06/24/2023 10:00 AM CDT [facility] Visit 06/24/2023 Delivery Date: 05/13/2023 Type: Vaginal [[id number]] Delivery Details: uncomplicated Subjective: Liliana Mancilla is a 32 y.o. now here for 6 weeks exam following a Vaginal Since delivery she has been doing well. No longer having pain or vaginal bleeding. Denies vaginal issues. She reports urinary frequency since delivery. She denies symptoms of UTI but states she typically does not have UTI symptoms and then eventually develops kidney pain. Reports a crohn's flare that has improved with her infusion and prednisone. Currently pumping and denies issues with breasts but reports a low supple. Reports mood has been good. Objective: General: Pleasant female in NAD Breast: no abnormal masses, skin changes or nipple discharge bilaterally : normal appearing labia and vagina Vitals BP 125/87 Pulse 83 Ht 157.5 cm (5' 2 ) Wt 242 lb (109.8 kg) LMP 08/01/2022 SpO2 97% Yes BMI 44.26 kg/m?? Last pap: normal 2021- plan for well women exam with repeat pap in 1 year with primary OB Screened for depression or prior mood disorders/blues: 0 Assessment and Plan: Liliana Mancilla is a 32 y.o. now here for 6 week exam following a Vaginal 1. : Doing well , meeting milestones 2. Medical issues: #crohns - continue care with GI #gdm - for 2 hour gtt at 6 weeks pp- discussed and ordered for quest - counseled on risk of T2DM and recommend good diet, regular exercise and regular f/u with a PCP #gHTN - for counseled on risk of chtn and recommend good diet, regular exercise and regular f/u with a PCP #urinary frequency - plan for culture today 3. Contraception: Plans for partner vasectomy. Declines bridge and plans for condoms. S/p counseling. 4. depression screening as above, discussed normal baby blues and post depressionwarning signs. Will call with questions or concerns. DIEUDONNE Raphael documented in this encounter Miscellaneous Notes * Addendum Note - Torey Bianchi CMA - 06/24/2023 10:00 AM CDTAddended by: TOREY BIANCHI on: 06/24/2023 10:24 AM Modules accepted: Orders documented in this encounter Plan of Treatment Not on file documented as of this encounter Results * Urine culture Urine, clean voided (06/24/2023 2:33 PM CDT) Report Final Report: Less than 100,000 colonies/mL (clinically insignificant growth based on current clinical standards) Organism (CLINICALLY INSIGNIFICANT [facility] Urine, clean voided 06/24/2023 2:33 PM CDT 06/24/2023 3:42 PM CDT Narrative [facility] - 06/25/2023 5:51 PM CDT Testing performed by [facility]biology [facility] ([phone]) us Judy Polanco NP LAB MICROBIOLOGY - GENERAL ORDERABLES Final Result [facility] Department [place] [address] documented in this encounter Visit Diagnoses Diagnosis care following vaginal delivery- Primary Urinary tract infection symptoms Urinary tract infection symptoms documented in this encounter Care Teams Manager Ems Relationship Specialty Start Date End Date Judy Fishman NP [address] [address] PCP - General 07/31/18 Jessica Martínez MD [address] [address] Consulting Physician Obstetrics and Gynecology 11/16/20 documented as of this encounter
--- OUTSIDE RECORDS SUMMARY | 2024-04-11 06:10 | XMS_ITS | Encounter Summary ---
Author Organization [facility] Address [address] [place] [address] Care Team Providers Care Deck Officer Name Role Phone Judy Fishman HOSE INSPECTOR AND PATCHER Primary Care Provider + Jessica Martínez MD Unavailable [phone] Encounter Details Date Type Department Care Team (Latest Contact Info) Description 06/24/2023 12:41 PM CDT - 06/24/2023 11:59 PM CDT Hospital Encounter [address] [address] Urinary tract infection symptoms Discharge Disposition: Discharge to home or self care Social History Tobacco Use Types Packs/Day Years Used Date Smoking Tobacco: Former Cigarettes Q uit: 10/03/2020 Smokeless Tobacco: Never Alcohol Use Standard Drinks/Week Comments Yes 2 [...] 05/14/2023 How often do you attend chur ch or roman catholic services? 1 to 4 times per year 05/14/2023 Do you belong to any clubs o r organizations such as christianity groups, unions, fraternal or athletic groups, or [...] place to sleep or slept in a fdc (including now)? 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 blood glucose diagnostic strip Check glucose fasting and one hour after each meal and as needed, up to 8 times per day 200 each 6 02/10/2023 diphenhydrAMINE HCL 25 mg tablet,disintegr ating Take 25 mg by mouth every 4 (four) hours ferrous sulfate 325 mg (65 mg of elemental iron) tabletIndication s:Iron Deficiency Anemia Take 1 tablet (325 mg total) by mouth every other day 15 tablet 3 02/10/2023 ibuprofen (ADVIL,MOTRIN) 600 mg tabletIndication s:Cramps Take 1 tablet (600 mg total) by mouth every 6 (six) hours 30 tablet 05/14/2023 insulin glargine (LANTUS) 100 unit/mL (3 mL) pen for injection Inject 10 units under the skin in the morning 15 mL 3 02/21/2023 lancets 33 gauge misc CHECK GLUCOSE FASTING AND ONE HOUR AFTER EACH MEAL AND NEEDED, UP TO 8 TIMES PER WEEK 200 each 6 02/10/2023 lidocaine (ASPERCREME) 4 % adhesive patch,medicated Place 2 patches on the skin daily 15 patch 05/14/2023 pen needle, diabetic 33 gauge x 5/32 needle 1 INJECTIONS DAILY DIRECTED 100 each 2 02/21/2023 polyethylene glycol (MIRALAX) 17 gram/dose bulk powderIndication s:constipation Take 17 g by mouth daily 510 g 05/14/2023 vit no.124/iron/foli c ( VITAMIN ORAL) Take by mouth vedolizumab (ENTYVIO) 300 mg recon soln 5 mL (300 mg total) predniSONE (DELTASONE) 10 mg tablet Take 4 tablets (40 mg) by mouth daily for 7 days, THEN 3 tablets (30 mg) daily for 7 days, THEN 2 tablets (20 mg) daily for 7 days, THEN 1 tablet (10 mg) daily for 7 days. Take by mouth as directed. 70 tablet 06/13/2023 4 documented as of this encounter Discharge Disposition Disposition Code Departure Means Destination Discharge to home or self care documented in this encounter Plan of Treatment Not on file documented as of this encounter Procedures Procedure Name Priority Date/Time Associated Diagnosis Comments URINE CULTURE Routine 06/24/2023 2:33 PM CDT Urinary tract infection symptoms documented in this encounter Results * Urine culture Urine, clean voided (06/24/2023 2:33 PM CDT) Report Final Report: Less than 100,000 colonies/mL (clinically insignificant growth based on current clinical standards) Organism (CLINICALLY INSIGNIFICANT GROWTH [facility] Urine, clean voided 06/24/2023 2:33 PM CDT 06/24/2023 3:42 PM CDT Narrative [facility] - 06/25/2023 5:51 PM CDT Testing performed by [facility] Microbiology Laboratory ([phone]) Judy Polanco NP LAB MICROBIOLOGY - GENERAL ORDERABLES Final Result [facility] Department [place] [address] documented in this encounter Visit Diagnoses Diagnosis Urinary tract infection symptoms documented in this encounter Care Teams Deck Officer Relationship Specialty Start Date End Date Judy Fishman NP [address] [address] PCP - General 07/31/18 Jessica Martínez MD [address] [address] Consulting Physician Obstetrics and Gynecology 11/16/20 documented as of this encounter
--- OUTSIDE RECORDS SUMMARY | 2024-04-11 06:10 | XMS_ITS | Encounter Summary ---
Author Organization [facility] Address [address] [place] [address] Phone Care Team Providers Care Dye Jig Operator Name Role Phone Judy Fishman NP Primary Care Provider + Jessica Martínez MD Unavailable [phone] Reason for Visit * Reason Onset Date Comments Medical Records Request 03/30/2024 Encounter Details Date Type Department Care Team (Late st Contact Info) Description 03/30/2024 Telephone [facility] Gastroenterology [address] 12th [place] [address] [place] [address] Hermelinda Don Medical Records Request Social History Tobacco Use Types Packs/Day Years [...] often do you attend chur ch or advent services? 1 to 4 times per year 05/14/2023 Do you belong to any clubs o r organizations such as jewish groups, unions, fraternal or athletic groups, or [...] place to sleep or slept in a [place] (including now)? No 05/14/2023 Hurley Depression Scale Answer Date Recorded Hurley Depression Scale Total 0 06/24/2023 The thought of harming myself has occurred to me . Never 06/24/2023 Personal Safety Answer Date Recorded Have you ever been in or are you currently in a harmful physical or emotional relationship or is someone making you feel afraid or unsafe? 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 Result: The transmission was successful. Explanation: All Pages Ok Pages Sent: 17 Connect Time: 11 minutes, 38 seconds Transmit Time: 03/30/2024 09:29 Transfer Rate: 9600 Status Code: 0000 Retry Count: 0 Job Id: [id number] Unique Id: [id number] Fax Line: 7 Fax Biofuels Technology Manager: [id number] ION PADDER * Telephone Encounter - Hermelinda Don - 03/30/2024 9:29 AM CUSHION PADDER Images from the original note were not included. Faxed last two office notes to [facility] fax #[phone] ION PADDER documented in this encounter Plan of Treatment Not on file documented as of this encounter Visit Diagnoses Not on filedocumented in this encounter Care Teams Dye Jig Operator Relationship Specialty Start Date End Date Judy Fishman NP [address] [address] PCP - General 07/31/18 Jessica Martínez MD [address] [address] Consulting Physician Obstetrics and Gynecology 11/16/20 documented as of this encounter
--- OUTSIDE RECORDS SUMMARY | 2024-04-11 06:10 | XMS_ITS | Clinical Summary ---
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 Active diphenhydrAMINE HCL 25 mg tablet,disinteg rating Take 25 mg by mouth every 4 (four) hours Active acetaminophen 32 mg/mL Active blood glucose diagnostic strip Check glucose fasting and one hour after each meal and as needed, up to 8 times per day 200 each 3 Active Additional Information Patient not taking.Reported on 07/31/2023 lancets 33 gauge misc CHECK GLUCOSE FASTING AND ONE HOUR AFTER EACH MEAL AND NEEDED, UP TO 8 TIMES PER WEEK 200 each 3 Active Additional Information Patient not taking.Reported on 07/31/2023 ferrous sulfate 325 mg (65 mg of elemental iron) tabletIndicatio ns:Iron Deficiency Anemia Take 1 tablet (325 mg total) by mouth every other day 15 tablet 3 3 Active Additional Information Patient not taking.Reported on 07/31/2023 docusate sodium (COLACE) 100 mg capsuleIndicati ons:constipatio n Take 1 capsule (100 mg total) by mouth 2 (two) times a day as needed for constipation 60 capsule 3 3 Active Additional Information Patient not taking.Reported on 12/11/2023 pen needle, diabetic 33 gauge x 5/32 needle 1 INJECTIONS DAILY DIRECTED 100 each 2 3 Active Additional Information Patient not taking.Reported on 07/31/2023 insulin glargine (LANTUS) 100 unit/mL (3 mL) pen for injection Inject 10 units under the skin in the morning 15 mL 3 3 Active Additional Information Patient not taking.Reported on 07/31/2023 acetaminophen (TYLENOL) 325 mg tablet Take 2 tablets (650 mg total) by mouth every 6 (six) hours as needed for pain 30 tablet 4 Active ibuprofen (ADVIL,MOTRIN) 600 mg tabletIndicatio ns:Cramps Take 1 tablet (600 mg total) by mouth every 6 (six) hours 30 tablet 4 Active Additional Information Patient not taking.Reported on 07/31/2023 lidocaine (ASPERCREME) 4 % adhesive patch,medicated Place 2 patches on the skin daily 15 patch 4 Active Additional Information Patient not taking.Reported on 07/31/2023 polyethylene glycol (MIRALAX) 17 gram/dose bulk powderIndicatio ns:constipation Take 17 g by mouth daily 510 g 4 Active Additional Information Patient not taking.Reported on 07/31/2023 EnilloRing 0.12-0.015 mg/24 hr vaginal ring INSERT 1 RING VAGINALLY EVERY 21 DAYS TO SKIP CYCLES 4 Active Active Problems Problem Noted Date Diagnosed Date Decreased movements in third trimester Overview (05/12/2023): Liliana Mancilla is a 32 y.o. female at 38w3d who is dated by 1st trimester ultrasound and is being admitted for decreased movement, elevated BPs for extended monitoring and possible induction . Admit to L&D: Consents signed and placed in chart. Labs: CBC and T&S pending. Induction of labor if meeting criteria for gHTN or distress. FWB: Continuous monitoring. Reactive NST. ID: 3rd trimester HIV (>28 wga) negative on 05/05/23. GBS negative on 04/18/23 . RPR on admission: pending. History of genital HSV or HSV 1/2 seropositivity: No. Membrane Status: intact. Indications for UDS: none. Verbal consent obtained for UDS: Not indicated. MOF: Plans to breastfeed. Urine drug screen not indicated. Patient informed of results: N/A. MOC: Plans to use partner vasectomy for contraception. Pain management: Desires epidural. Post DVT prophylaxis: The patient has the following MAJOR risk factors BMI >/= 40 and the following MINOR risk factors none. enoxaparin 40 mg BID will be ordered for VTE prophylaxis . c/b: #gHTN #hx of preeclampisa: Pt reports two MR BPs while checking at home. MR x1 on admission to [facility]. On ASA 81 mg. Denies WHITE, vision changes, RUQ pain. CMP, CBC, UPC pending. #GDM: On lantus 24u nightly. For insulin OB gtt. Will check fasting BS . #Maternal obesity: For PP DVT prophylaxis. #Crohn's disease of small intestine: In remission since diagnosis in 2019 with no perianal involvement. Current regimen: Entyvio #Hx of PPH: In G1 had vaginal delivery, EBL 3000 mL with QBL 3350 mL related to uterine atony, treated with Hemabate x2, rectal miso, TXA, freddy, Banjo, Bakri + packing, 2u PRBC. Starting Hgb on admission pending. #Hx of LEEP: In 1st trimester. Routine midtrimester cervical length screening normal. Skin rash 08/31/2021 Assessment & Plan (08/31/2021 5:48 PM CDT): A sun related skin rashes unlikely to be associated with Entyvio particularly as she has been on this for the past 2 years. We would recommend that she follow up with Dermatology. As it is itchy, she can try using Aveeno eczema ointment NAFLD (nonalcoholic fatty liver disease) 021 Crohn's disease of small intestine with other co mplication 12/01/2018 Overview (05/02/2023): History - diagnosis: Crohn's disease, in remission since diagnosis in 2019 - current regimen: Entyvio - history of perianal involvement: no - s/p counseling Plan [x] Continue Entyvio and follow-up with Dr. Severino - plan for next infusion following delivery. Last was in March [x] Specialized anatomy [x] Serial growth ultrasounds per GDMA2 problem [x] Mode of delivery: anticipate vaginal Assessment & Plan (04/03/2023 2:06 PM ROBOTIC TOY INVENTOR): Asymptomatic, well controlled. Assessment & Plan (03/06/2023 1:18 AM ROBOTIC TOY INVENTOR): Well controlled. Assessment & Plan (08/31/2021 5:47 PM CDT): The patient seems to be having higher baseline stool frequency, joint pain, and looser stools since before . She also continues to have a high CRP without localizing symptoms. As she has not had a repeat colonoscopy since her index procedure which did not include regional biopsies, we would recommend that she have a repeat colonoscopy later in the summer/fall to verify mucosal healing and determine the extent disease. We would recommend that she reschedule her Entyvio infusion to be in late August rather than September as we suspect she will require a new prior authorization when her new insurance starts on September 12 and this would likely delay her infusion. We will continue to monitor her labs with her infusions Plan 1. Continue monthly Entyvio 2. Patient should schedule her Entyvio infusion a couple days early to assure that this is done before her new insurance kicks in as the unit fusion would likely otherwise be delayed for at least a week or so while we are waiting for this prior authorization 3. Consider repeat colonoscopy towards the end of the summer to verify mucosal healing and determine the extent of her disease activity Assessment & Plan (05/25/2021 9:26 AM ROBOTIC TOY INVENTOR): Discussed recommendation for both stool softener and laxative. Recommend she continue miralax and increase to BID or take senna and colace. Assessment & Plan (11/24/2020 3:08 PM CDT): Duncan was diagnosed with Crohn's disease in 2018 and has been on Entyvio (vedolizumab) since that time without any additional flares. She gets her Entyvio injections q4 weeks. We discussed that the course of Crohn disease during mirrors pre- status. One third of women in remission, compared to 70% of women with active disease at the beginning of , will relapse during , most commonly in the first trimester. Pregnancies complicated by Crohn disease are at increased risk for IUGR, delivery, and abruption, especially with active disease. Furthermore, increased folic acid of 2mg/daily should be considered if there is ileal involvement of the disease or other concerns regarding diet or absorption (ie, low residue diets). Iron and B12 levels should be evaluated in the first trimester to determine if supplementation is needed. Inflammatory bowel disease typically follows a non-Mendelian pattern of inheritance, and the fetus is at increased risk to develop IBD over the general population. Genetic anticipation is sometimes seen in IBD and thus her children may develop the disease with an earlier onset. Given she is on a biologic, we will discuss with pediatrics - baby should avoid all live vaccines for 6 months. Recommendations: - 1st trimester labs: B12, ferritin, folate, Vit D - Anatomy US and MFM appointment at 19-20 weeks - Serial growth US q4 weeks starting at 24-26 weeks - testing starting at 32 weeks - Delivery at 39 weeks unless otherwise indicated--plan given no history of perianal disease. Would recommend CS in the setting of perianal disease. Assessment & Plan (03/30/2019 3:48 PM ROBOTIC TOY INVENTOR): Ileal Crohn's disease. Diagnosed 2018. Started entyvio q 8 weeks in 12/2018. Symptomatic improvement. 1-3 semiformed stools daily. Recent MRE last week shows improvement in TI inflammation since initiation of entyvio. -continue entyvio -will continue to trend CRP -She is Hep B immunte, Had prevnar 01/26/19, has had flu shot, will do pneumovax today -f/u in 6 months Chronic diarrhea 11/08/2018 Resolved Problems Problem Noted Date Diagnosed Date Resolved Date care following vaginal delivery 05/13/2023 06/24/2023 Overview (05/14/2023): # ID: Afebrile. No signs/symptoms of infection. # Heme: QBL 432 mL. Hemodynamically stable. # CV/Pulm: Gestational hypertension - Blood pressures well controlled on no meds since delivery. Asymptomatic, denies WHITE/RUQ pain/vision changes. CBC/CMP wnl, UPC 0.2. # GI/: Tolerating PO. Voiding spontaneously. Enrolled in home BP monitoring. # Pain: Controlled with above regimen. Will add lidoderm patch for back pain. # MOC: vasectomy . # MOF: . Urine drug screen not indicated. Patient informed of results: N/A. # Post DVT prophylaxis: The patient has the following MAJOR risk factors BMI >/= 40 and the following MINOR risk factors none. enoxaparin 40 mg BID ordered for VTE prophylaxis. # Disposition: Follow up task not sent. Continue routine care. complicated by: #GDM: On lantus 24u nightly during . PPD1 BS 83. #Crohn's disease of small intestine: In remission since diagnosis in 2019 with no perianal involvement. Current regimen: Entyvio Gestational diabetes mellitu s, with history of GDM 10/04/2022 06/24/2023 Overview (05/09/2023): - History of GDM in G1 - Early screening with A1C, 5.7 on 10/04/22- follow- up 3hr normal - 3hr OGTT in 2T: 2/4 elevated (84, 183, 138, 143) Current regimen: 05/05/2023 - encouraged to be more consistent with checking after meal values Lantus 24 units every night Continue an evening walk and high protein snack. Keep food log for breakfast S/p counseling Plan [] Send weekly glucose log through [facility] for review [] Twice weekly NSTs scheduled next Fri/Fri, complete for BPP and growth next week to evaluate size [x] Serial growth ultrasounds, complete [] Plan delivery by 39 weeks - IOL scheduled 2 [] 2 hour gtt 6 weeks Assessment & Plan (03/06/2023 1:17 AM ROBOTIC TOY INVENTOR): Has only taken 1 dose of increased lantus dose. Thus will continue for now. Reviewed how to transition from AM dosing to PM dosing and provided written schedule. Assessment & Plan (02/22/2023 11:29 AM ROBOTIC TOY INVENTOR): Recommend initiation of lantus 10U morning given elevated fasting and morning. Rx sent. Do not recommend metformin given Crohns. May consider mealtime with breakfast next review of logs. History of loop electrosurgi kim excision procedure (LEEP) of cervix affecting in first trimester 10/04/2022 06/24/2023 Overview (12/27/2022): Plan [x] Routine midtrimester cervical length screening normal History of hemorr hardik, currently 10/04/2022 06/24/2023 Overview (12/27/2022): - In G1 had vaginal delivery, EBL 3000 mL with QBL 3350 mL related to uterine atony, treated with Hemabate x2, rectal miso, TXA, freddy, Banjo, Bakri + packing, 2u PRBC. Plan - routine care - Optimize anemia: hemoglobin 12.0 09/2022 -Consider T&C at time of delivery Other specified diseases and conditions complicating 09/30/2022 06/24/2023 History of pre-eclampsia in prior , currently in third trimester 09/30/2022 Overview (05/02/2023): - s/p counseling Blood pressure log reviewed on 04/25/2023 - 05/02: BPs normal, mild HAs relived with tylenol Plan [x] Baseline CBC, CMP,- WNL UPC- 57 [x] Low dose aspirin daily starting at 12 weeks gestation until delivery Assessment & Plan (03/06/2023 1:18 AM ROBOTIC TOY INVENTOR): BP at goal today. Assessment & Plan (02/22/2023 11:27 AM ROBOTIC TOY INVENTOR): We reviewed recommendation in future to present for evaluation if has elevated BP and WHITE. Reassuring that WHITE resolved and BP today normotensive. Recommend daily BP monitoring given history. Patient has BP cuff at home that was validated at the time of receipt in last . Supervision of high-risk pre gnancy, third trimester 09/30/2022 06/24/2023 Overview (05/09/2023): [x] Full [facility] Care; [x] Blue Team Referring Provider: Trent XAVIER) [phone] [] or Medicare Insurance [x] Dating Criteria: LMP 08/01/22 with JONNATHAN 05/08/23 [x] Labs: Rh [B positive ], Ab [negative ], Rubella [Imm ], HIV [NR ], HepBSAg [NR ], RPR [NR ], Hep C [NR ], Varicella [ Reactive], GC/CT [Neg/Neg ] [x] Genetic Screening: NIPT- LR- pt aware [x] CBC/Hgb: 12.0/37.1/360K [x] Early 1hr GTT (if indicated) : Hemoglobin A1C: 5.7 [x] UCx: collected on 01/24- insignificant growth [x] Pap: 2021, normal [x] LD ASA (if indicated) starting at 12 weeks: [] EPDS [ ]; PNBHS referral (if indicated) 2nd Tri Labs: [x] Anatomy ultrasound: [x] CBC: 10.6/32.9/296K repeat 3 hr gtt: 84/183/13/143- GDM- pt aware and supplies sent [x] Flu Shot (Dec-Mar):01/24/2023 [x] Tdap (27-36wks): 02/21/2023 3rd Tri Labs: [x] CBC/HIV/RPR/T&S: Hgb 10.7, HIV: NR RPR: NR [x] GBS: neg [x] GC/CT (if indicated): [x] testing: per GDM problem [x] RSV vaccine after 32wks - Also counseled on COVID vaccine 04/03 Counseling [x] MOD: IOL scheduled on 05/16/2023 at 0800- pt letter sent. [x] [facility] of [facility] [x] Epidural: yes [x] MOC: partner vasectomy [x] Method of feeding: Breast [x] Obstetrics Gynecology Md: Pb [x] PP Depression Discussed: Assessment & Plan (02/22/2023 11:29 AM ROBOTIC TOY INVENTOR): Provided [email or web address] website to review. Hypertension in , p reeclampsia, delivered 07/10/2021 09/30/2022 Cardiac risk counseling 07/10/202110/12 Preeclampsia in period 06/05/2021 06/12/2021 Overview (06/05/2021): Diagnosed with Preeclampsia during admission. Not on an agent. BP for most part are mild. Only 1 BP met criteria for starting in period. We discussed new diagnosis for stage 1 HTN. If SBP in 140s or DBP in 90s will initiate agent. Precuations reviewed. Hemorrhoids during , delivered 06/05/2021 06/12/2021 Overview (06/05/2021): Reporting hemorrhoids that are concerning. Already on stool softener - Colace BID and DC MIralax secondary to loose stool Will Rx Anusol care following vaginal delivery 05/29/2021 09/30/2022 Overview (05/31/2021): # ID: Afebrile. No signs/symptoms of infection. #COVID-19: Positive # Heme: EBL 3000 mL with QBL 3350 mL. No symptoms acute blood loss anemia. 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 Bakri with 450cc. Vaginal packing and bakri removed 05/30. Hgb 6.8 > 9.2 post transfusion. PPD#1 AM CBC is 8.0. Plan for PO iron on d/c. # CV/Pulm: #Pre-eclampsia with severe features: For 24 hours magnesium sulfate, complete 05/30/21 @ 1563. Blood pressures well controlled on no agents. CBC/CMP wnl, UPC undetectable. Repeat CMP with calcium 7.7, TUMs ordered. # GI/: Tolerating PO. Voiding spontaneously. #Crohn's disease: Diagnosed with Crohn's disease in 2019 and has been on Entyvio (vedolizumab) since that time without any additional flares. She gets her Entyvio injections q4 weeks. Last 05/18. # GDMA2: Fasting BG PPD#1 113. For PP 2hr gtt # Pain: Controlled with above regimen. # Post DVT prophylaxis: The patient has the following MAJOR risk factors BMI >/= 40 and the following MINOR risk factors PPH (EBL >/= 1000 mL) and preeclampsia. enoxaparin 40 mg BID ordered for VTE prophylaxis held on PPD#1, plan to give PPD#2. # MOC: Natural family planning # MOF: # COVID Vaccination Status: Previously received dose #1, currently has covid. # Disposition: Follow up task sent to [facility] scheduling pool. Desires discharge home today. pending bleeding amount Gestational diabetes mellitu s (GDM) in third trimester 04/12/2021 06/12/2021 Overview (06/05/2021): Failed 3 hour gtt Plan for PP 2 hr OGTT Assessment & Plan (05/10/2021 8:56 AM ROBOTIC TOY INVENTOR): BS log reviewed with the majority of values at or under goal. Continue current regimen. Assessment & Plan (04/26/2021 5:10 PM ROBOTIC TOY INVENTOR): Fastings continue to be elevated with a few elevated breakfast PCs. Will adjust bedtime insulin and have patient send log on Friday for review. Assessment & Plan (04/12/2021 1:50 PM ROBOTIC TOY INVENTOR): Counseled today on diagnosed gDM. Discussed goal BS and briefly reviewed diet recommendations. She had an appt with diabetes education. We reviewed importance of tight glycemic control and recommendation to start medication today. We discussed that insulin the the standard of care in but that metformin could also be an option. Patient did not tolerate metformin previously. We will plan to review her BS logs weekly. Reviewed a risk of diabetes in is LGA fetus and risks associated with LGA include possible need for c/s, vacuum/forcep assisted vaginal delivery, shoulder dystocia and pp hemorrhage. Reviewed risk of hypoglycemia in the . Also discussed risk for T2DM and reviewed importance of 2 hour gtt and a healthy lifestyle with good PCP f/u. Pauline to room for insulin teaching and rx sent. Will review log again in 1 week. Excessive growth affec ting management of in second trimester 02/14/2021 022 Overview (05/10/2021): 02/14/2021 anataomy with growth at the 98%, dating by IVF 04/12/2021 97%, 05/10/2021 95% s/p counseling Continue serial growths Recommend tight glycemic control Supervision of high-risk pre gnancy, unspecified trimester 11/16/2020 06/12/2021 Overview (05/28/2021): [x] Full MFM Care; [] Red Team [x] Blue Team Referring Provider: JESSICA Severino [phone] [facility] Jessica Mauricio: [phone]; [x] Dating Criteria: Embryo Transfer 10/03/20 with JONNATHAN 06/21/21 [x] Labs: Lab Results Component Value Date ABORH B Positive 11/24/2020 IDCOOMB Negative 11/24/2020 [id number] Nonreactive 11/24/2020 LABRPR Nonreactive 11/24/2020 RUBELIGG Reactive 11/24/2020 HEPBSAG Nonreactive 11/24/2020 HGB 11.1 (L) 11/24/2020 HCT 35.4 (L) 11/24/2020 LABPLAT 360 11/24/2020 [x] GC/CT- Neg/Neg [x] Genetic Screening: Erika Low Risk [x] Early 1hr GTT (if indicated) - 12/08: 133 [x] UCx: Negative [x] Pap: 01/2019: negative [x] LD ASA (if indicated) starting at 12 weeks: indicated [] EPDS [ ]; PNBHS referral (if indicated) 2nd Tri Labs: [x] Anatomy ultrasound [x] CBC: 10.7/32.8/320K 1hr gtt at 24-28wks: 148 3 hr GTT completed 03/24/21, 84/173/169/148- failed, pt aware and supplies and DE completed on 03/27 [x] Flu Shot (Dec-Mar): pt receiving vaccine after infusion 02/14 [x] Tdap (27-36wks): 04/26/21 ck [x] COVID Vaccine: s/p dose #1 and #2 3rd Tri Labs: [x] CBC/HIV/RPR: 11.3/34.9 plt, HIV: NR and RPR: NR [x] GBS: Negative on 05/24/21 [] COVID testing: ordered on for the [place] location, pt letter sent Counselling [x] MOD: IOL scheduled on 06/13/21 at 9PM, pt letter sent [x] Place of delivery: [facility] [] MOC: [x] Method of feeding: breast [x] Obstetrics Gynecology Md: [] PP Depression Discussed: [place] should not be given any live vaccines. Assessment & Plan (11/24/2020 3:14 PM CDT): SEROLOGIES NEEDED [] Co-management vs. [] Full MFM Care; [] Red Team [] Blue Team Referring Provider: JESSICA Severino [phone] [facility] Jessica Mauricio: [phone]; [] or Medicare Insurance [x] Dating Criteria: Embryo Transfer 10/03/20 with JONNATHAN 06/21/21 [] Labs: Rh [ ], Ab [ ], Rubella [ ], HIV [ ], HepBSAg [ ], RPR [ ], GC/CT [ ] - collected 11/24 [] Genetic Screening: desires NIPT, discussed 11/24 - be be drawn at 12 weeks [] CBC/Hgb [] Early 1hr GTT (if indicated) - collected 11/24 [] UCx: Collected 11/24 [x] Pap: 01/2019: negative [x] LD ASA (if indicated) starting at 12 weeks: indicated [] EPDS [ ]; PNBHS referral (if indicated) 2nd Tri Labs: [] Anatomy ultrasound: [] CBC/1hr gtt at 24-28wks: [] Flu Shot (Dec-Mar): [] Tdap (27-36wks): [] COVID Vaccine: discussed on 11/24, advised patient of the advantages in . Considering, will discuss at next visit. [] Rhogam at 28 wks (if Rh neg): 3rd Tri Labs: [] CBC/HIV/RPR/T&S: [] GBS: [] GC/CT (if indicated): [] COVID testing: Counselling [] MOD: [] Place of delivery: [] MOC: [] Method of feeding: [] Obstetrics Gynecology Md: [] PP Depression Discussed: care not yet up to date. - serum and urine labs collected today - We discussed the options for aneuploidy screening today, including SS + NT and NIPT. Patient desires NIPT. Recommend drawing at 12-13 weeks. - Discussed recommendation for COVID vaccine in , patient is considering. Should discuss further at next visit if does not get in the meantime Obesity in , antepartum 11/16/2020 06/24/2023 Overview (04/02/2023): - BMI: 44 - s/p counseling Plan [x] Specialized anatomy ultrasound [] Serial growth ultrasounds and testing per GDMA2 problem Assessment & Plan (11/24/2020 3:09 PM CDT): We discussed the risks associated with obesity, including preeclampsia, gestational diabetes, delivery, growth abnormalities (IUGR and macrosomia) and stillbirth. We would recommend a specialized anatomic survey, serial growth assessment and testing. Aspirin 81mg should be started after 12 weeks to decrease the risk of preeclampsia. - Recommend early 1hr GTT - Recommend baseline preeclampsia labs - drawn today - Recommend weight gain of no more than 11-20 lbs during - Recommend low dose aspirin throughout until 36 weeks given ART and obesity resulting from ass isted reproductive technology, antepartum 11/16/2020 03/04/2021 Overview (04/11/2021): Previously counseled [x] ECHO Assessment & Plan (11/24/2020 3:08 PM CDT): We discussed that pregnancies resulting from ART are at increased risk for abnormal placentation, placenta previa, abruption, -induced hypertension, IUGR, , congential anomalies, and delivery. - Recommend continuation of low dose aspirin daily through 36 weeks - Detailed anatomy US at 19-20 weeks BMI 40.0-44.9, adult 06/12/2020 023 Prediabetes 06/12/2020 10/30/2022 Overview (04/26/2021): History of prediabetes with most recent A1c 5.6% (02/2020). [x] early 1hr GTT- wnl [x] Gtt at 24-28 weeks-gDM Assessment & Plan (08/31/2021 5:46 PM CDT): Patient should be back to normal since delivery. We will recheck an A1c with her next infusion Assessment & Plan (11/24/2020 3:10 PM CDT): History of prediabetes with most recent A1c 5.6% (02/2020). - Recommend early 1hr GTT. If normal, recommend GTT repeated at 24-28 weeks. High risk medications (not a nticoagulants) long-term use 03/30/2019 10/30/2022 Assessment & Plan (03/30/2019 3:48 PM ROBOTIC TOY INVENTOR): High risk medications: As with all patients taking immunosuppressive biologic therapies or immunomodulators, we provide a balanced discussion on benefits and risks associated with these medications. Regarding potential risks, we employ a strategy of active monitoring for medication related toxicities. Toxicities and risks discussed in monitoring include, but are not limited to the following: infusion reactions including anaphylaxis; bacterial, viral and fungal infections; pancreatitis; heart failure; neurologic reactions; hematologic and solid tumors malignancy including an increased risk of lymphoma and skin cancers; bone marrow toxicity including anemia, lymphopenia and immune suppression; hepatotoxicity and potential renal toxicity. Patients are actively assessed through routine laboratories (Q4 month or more frequently) which I personally review and are encouraged to contact us with any questions regarding new symptom development. Iron deficiency anemia due t o chronic blood loss 11/13/2018 12/27/2022 Assessment & Plan (08/31/2021 5:46 PM CDT): We will recheck the patient's iron stores with her upcoming infusion Crohn's colitis (CMS/HCC) 10/27/2018 Obesity 10/27/2018 06/12/2020 Encounters Date Type Department Care Team Description 03/30/2024 Telephone [facility] Gastroenterology [address] [facility] 12th [place] [address] [place] [address] Hermelinda Don Medical Records Request 02/25/2024 Documentation Gastroententerology Lydia Rivera M.A. 01/13/2024 Telephone [facility] Gastroenterology [address] [facility] 12th [place] [address] [place] [address] Dianelys Espinoza Signed POT for yunior from Last 3 Months Immunizations Name Administration Dates Next Due Influenza, Quadrivalent, Jessica l Culture-based MDCK, Preservative Free, Antibiotic Free, Intramuscular 01/24/2023,02/07/2017 Influenza, Quadrivalent, Spl it, Intramuscular 01/13/2017 Influenza, Trivalent, IM (MDV) 02/27/2014,2012 Influenza, Trivalent, Preser vative Free, Intramuscular 04/27/2012 Influenza, Unspecified 02/12/2021 MMR 05/14/2023(Deferred: Contraindication - rubella immune) Pneumococcal Conjugate PCV 13 01/26/2019 Pneumococcal Polysaccharide PPV23 03/30/2019 Tdap 02/21/2023,04/26/2021 Varicella 05/14/2023(Deferred: Contraindication - varicella immune) Surgical History Surgery Date Site/Laterality Comments ANKLE FRACTURE SURGERY 04/14/2008 - 04/13/2009 Right CHOLECYSTECTOMY 04/14/2017 - 04/13/2018 CERVICAL BIOPSY W/ LOOP ELEC TRODE EXCISION Medical History Medical History Date Comments Autoimmune disorder (HCC) Crohn's disease (CMS/HCC) (HCC) 2018 Diabetes mellitus (HCC) GDM Hypertension in , preeclampsia, delivered 07/10/2021 care following va ginal delivery 05/29/2021 # ID: Afebrile. No signs/sym ptoms of infection. #COVID-19: Positive # Heme: EBL 3000 mL with QBL 3350 mL. No symptoms acute blood loss anemia. 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 Bakri with 450cc. Vaginal packing and bakri removed 05/30. Hgb 6.8 > 9.2 post transfusion. PPD#1 AM CBC is 8.0. Plan for PO iron on d/c. # CV/Pulm: Iron deficiency anemia due t o chronic blood loss 11/13/2018 Family History Medical History Relation Name Comments Cancer Maternal Grandfather Diabetes Maternal Grandfather Cancer Maternal Grandmother Diabetes Mother Hypertension Mother Cancer Mother's Sister Cancer Paternal Grandmother Crohn's disease Paternal cousin Ulcerative colitis Paternal cousin Relation Name Status Comments Maternal Grandfather Maternal Grandmother Mother Mother's Sister Paternal Grandmother Paternal cousin Social History Tobacco Use Types Packs/Day Years [...] How often do you attend chur or oriental orthodox services? 1 to 4 times per year 05/14/2023 Do you belong to any clubs o r organizations such as evangelical groups, unions, fraternal or athletic groups, or [...] in a fdc (including now)? No 05/14/2023 [place] Depression Scale Answer Date Recorded [place] Depression Scale Total 0 06/24/2023 The thought [...] on file Legal Sex Female 7:54 PM ROBOTIC TOY INVENTOR Gender Identity Not on file Sexual Orientation Not on file Obstetrics History Para Term AB IAB SAB Ectopic Multiple Livin g Live Births 2 2 1 1 0 2 2 Date Outcome GA Total Labor Labor/2nd/3rd Weight Sex Type Anes PTL Melina A1 A5 Name Clin 2021 36w 5d 0h 08m 0h 08m 3.33 kg (7 lb 5.5 oz) M Vag-Sp ont Epidur al Y Livin g 8 9 KORI YORK Micha el McKin ley, MD Complications:Pre eclampsia Delivery Location:[facility] Main C ampus ([facility] 58LD) 2023 Term 38w 4d 0h 05m 0h 05m 3.17 kg (6 lb 15.8 oz) F Vagina l Epidur al N Livin g 8 9 Capri cruz Huysm an, Lay MD Delivery Location:[facility] Main C ampus ([facility] 58LD) Last Filed Vital Signs Vital Sign Reading Time Taken Comments Blood Pressure 119/75 12/11/2023 2:53 PM CDT Pulse 95 12/11/2023 2:53 PM CDT Temperature 36.3 ??C (97.3 ??F) 12/11/2023 2:53 PM CD T Respiratory Rate 16 05/14/2023 7:00 AM ROBOTIC TOY INVENTOR Oxygen Saturation 96% 12/11/2023 2:53 PM CDT Inhaled Oxygen Concentration - - Weight 108.9 kg (240 lb) 12/11/2023 2:53 PM CDT Height 157.5 cm (5' 2 ) 12/11/2023 2:53 PM CDT Body Mass Index 43.9 12/11/2023 2:53 PM CDT Plan of Treatment Health Maintenance Due Date Last Done Comments Cervical Cancer Screening 1992 Hepatitis B Screening 2010 Regular Well Visit/Exam 18-64 2010 Varicella Vaccines (2 of 2 - 13+ 2-dose series) 11/04/2012 10/07/2012 Covid-19 Vaccine ( season) 2023 12/01/2020 Influenza Vaccine (#1) 2023 , 02/12/2021, 02/07/2017, Additional history exists Depression Screening 06/23/2024 06/24/2023 DTaP/Tdap/Td Vaccine (3 - Td or Tdap) 02/21/2033 02/21/2023, 04/26/2021 Pneumococcal vaccine <65 (3 of 3 - PPSV23 or PCV20) 2057 03/30/2019, 01/26/2019 Hepatitis C Screening Completed 10/04/2022 , 11/24/2020, 06/09/2020 HPV Vaccines Aged Out No longer eligi ble based on patient's age to complete this topic Medical Devices Implanted Type Area Quartz Miner Blasting Device Identifier Shelf Expiration Date Model / Serial / Lot Plate/Screws In Right Ankle Ankle Procedures Procedure Name Priority Date/Time Associated Diagnosis Comments TB TEST, QUANTIFERON GOLD Routine 02/20/2024 7:56 AM ROBOTIC TOY INVENTOR Crohn's disease of small intestine with other complication (HCC) CRP (ACUTE PHASE) Routine 02/20/2024 7:5 6 AM ROBOTIC TOY INVENTOR Crohn's disease of small intestine with other complication (HCC) IRON PROFILE W/ IBC Routine 02/20/2024 7 :55 AM ROBOTIC TOY INVENTOR Crohn's disease of small intestine with other complication (HCC) VITAMIN D 25 HYDROXY Routine 02/20/2024 7:55 AM ROBOTIC TOY INVENTOR Crohn's disease of small intestine with other complication (HCC) VITAMIN B12 Routine 02/20/2024 7:55 AM ROBOTIC TOY INVENTOR Crohn's disease of small intestine with other complication (HCC) CBC WITHOUT DIFFERENTIAL Routine 02/20/2024 7:55 AM ROBOTIC TOY INVENTOR Crohn's disease of small intestine with other complication (HCC) COMPREHENSIVE METABOLIC PANEL Routine 02/20/2024 7:51 AM ROBOTIC TOY INVENTOR Crohn's disease of small intestine with other complication (HCC) HEPATITIS C ANTIBODY Routine 10/04/2022 10:07 AM CDT Crohn's disease of small intestine with other complication (HCC) Supervision of high-risk , first trimester from Last 3 Months or Most Recently Relevant to Health Maintenance Results * TB test, quantiferon gold (02/20/2024 7:56 AM ROBOTIC TOY INVENTOR) QuantiFERON(R)-T B Gold Plus, 1 Tube NEGATIVE NEGATIVE [facility] Comment: Negative test result. M. tuberculosis complex infection unlikely. NIL 0.03 IU/mL [facility] MITOGEN-NIL 7.97 IU/mL [facility] TB1-NIL 0.00 IU/mL [facility] TB2-NIL 0.00 IU/mL [facility] Comment: The Nil tube value reflects the background interferon gamma immune response of the patient's blood sample. This value has been subtracted from the patient's displayed TB and Mitogen results. Lower than expected results with the Mitogen tube prevent false-negative Quantiferon readings by detecting a patient with a potential immune suppressive condition and/or suboptimal pre-analytical specimen handling. The TB1 Antigen tube is coated with the M. tuberculosis-specific antigens designed to elicit responses from TB antigen primed CD4+ helper T-lymphocytes. The TB2 Antigen tube is coated with the M. tuberculosis-specific antigens designed to elicit responses from TB antigen primed CD4+ helper and CD8+ cytotoxic T-lymphocytes. For additional information, please refer to https://education.[employer]/faq/YKJ369 (This link is being provided for informational/ educational purposes only.) Blood 02/20/2024 7:56 AM ROBOTIC TOY INVENTOR 02/20/2024 7:57 AM ROBOTIC TOY INVENTOR Narrative [facility] - 02/26/2024 6:44 PM ROBOTIC TOY INVENTOR FASTING:YES FASTING: YES Lizz Clark NP LAB BLOOD ORDERABLES Final Result [facility] [address] [place] [address] * (ABNORMAL) CRP (acute phase) (02/20/2024 7:56 AM ROBOTIC TOY INVENTOR) [facility] C-RP 37.9(H) <8.0 mg/L [facility] Blood 02/20/2024 7:56 AM ROBOTIC TOY INVENTOR 02/20/2024 7:57 AM ROBOTIC TOY INVENTOR Narrative [facility] - 02/26/2024 6:44 PM ROBOTIC TOY INVENTOR FASTING:YES FASTING: YES Lizz Clark LINTING MACHINE OPERATOR LAB BLOOD ORDERABLES Final Result Performing Organization Address [facility] de Phone Number [address] [address] [place] [address] * (ABNORMAL) Iron profile w/ IBC (02/20/2024 7:55 AM ROBOTIC TOY INVENTOR) [facility] Iron 39(L) 40 - 190 mcg/dL [facility] TIBC 455(H) 250 - 450 mcg/dL (calc) [facility] Iron saturation 9(L) 16 - 45 % (calc) [facility] Blood 02/20/2024 7:55 AM ROBOTIC TOY INVENTOR 02/20/2024 7:55 AM ROBOTIC TOY INVENTOR Narrative [facility] - 02/21/2024 3:48 AM ROBOTIC TOY INVENTOR FASTING:YES FASTING: YES Lizz Clark LINTING MACHINE OPERATOR LAB BLOOD ORDERABLES Final Result Performing Organization Address [facility] de Phone Number [facility] [address] [address] [place] [address] * (ABNORMAL) Vitamin D 25 hydroxy (02/20/2024 7:55 AM ROBOTIC TOY INVENTOR) [facility] Vitamin D 25-OH 23(L) 30 - 100 ng/mL [facility] Comment: Vitamin D Status ? 25-OH Vitamin D: Deficiency: ?<20 ng/mL Insufficiency: ? 20 - 29 ng/mL Optimal: ? > or = 30 ng/mL For 25-OH Vitamin D testing on patients on D2-supplementation and patients for whom quantitation of D2 and D3 fractions is required, the [facility](TM) 25-OH VIT D, (D2,D3), LC/MS/MS is recommended: order code 16550 (patients >2yrs). See Note 1 Note 1 For additional information, please refer to http://education.[employer]/faq/PJF208 (This link is being provided for informational/ educational purposes only.) Blood 02/20/2024 7:55 AM ROBOTIC TOY INVENTOR 02/20/2024 7:55 AM ROBOTIC TOY INVENTOR Narrative [facility] - 02/21/2024 3:48 AM ROBOTIC TOY INVENTOR FASTING:YES FASTING: YES Lizz Clark LINTING MACHINE OPERATOR LAB BLOOD ORDERABLES Final Result [facility] [address] [place] [address] * (ABNORMAL) CBC without differential (02/20/2024 7:55 AM ROBOTIC TOY INVENTOR) Pathologist [facility] WBC 8.3 3.8 - 10.8 Thousand/u L [facility] RBC, POC 4.71 3.80 - 5.10 Million/uL [facility] Hgb 12.5 11.7 - 15.5 g/dL [facility] Hct 38.9 35.0 - 45.0 % [facility] MCV 82.6 80.0 - 100.0 fL [facility] MCH 26.5(L) 27.0 - 33.0 pg [facility] MCHC 32.1 32.0 - 36.0 g/dL [facility] Comment: For adults, a slight decrease in the calculated MCHC value (in the range of 30 to 32 g/dL) is most likely not clinically significant; however, it should be interpreted with caution in correlation with other red cell parameters and the patient's clinical condition. Rdw 13.1 11.0 - 15.0 % [facility] Platelets 280 140 - 400 Thousand/u L [facility] MPV 10.6 7.5 - 12.5 fL [facility] Blood 02/20/2024 7:55 AM ROBOTIC TOY INVENTOR 02/20/2024 7:55 AM ROBOTIC TOY INVENTOR Narrative [facility] - 02/21/2024 3:48 AM ROBOTIC TOY INVENTOR FASTING:YES FASTING: YES Lizz Clark NP LAB BLOOD ORDERABLES Final Result Performing Organization Address [facility] de Phone Number [employer] [facility] [address] [place] [address] * Vitamin B12 (02/20/2024 7:55 AM ROBOTIC TOY INVENTOR) [facility] Vitamin B12 344 200 - 1,100 pg/mL [facility] Comment: Please Note: Although the reference range for vitamin B12 is 200-1100 pg/mL, it has been reported that between 5 and 10% of patients with values between 200 and 400 pg/mL may experience neuropsychiatric and hematologic abnormalities due to occult B12 deficiency; less than 1% of patients with values above 400 pg/mL will have symptoms. Blood 02/20/2024 7:55 AM ROBOTIC TOY INVENTOR 02/20/2024 7:55 AM ROBOTIC TOY INVENTOR Narrative [facility] - 02/21/2024 3:48 AM ROBOTIC TOY INVENTOR FASTING:YES FASTING: YES Lizz Clark LINTING MACHINE OPERATOR LAB BLOOD ORDERABLES Final Result Performing Organization Address [facility] de Phone Number [employer] [facility] [address] [place] [address] * Comprehensive metabolic panel (02/20/2024 7:51 AM ROBOTIC TOY INVENTOR) [facility] Glucose 85 65 - 99 mg/dL [facility] Comment: ? Fasting reference interval BUN 9 7 - 25 mg/dL [facility] Creatinine 0.64 0.50 - 0.97 mg/dL [facility] eGFR 121 > OR = 60 mL/min/1.7 3m2 [facility] BUN/creat ratio SEE NOTE: 6 - 22 (calc) [facility] Comment: ?? Not Reported: BUN and Creatinine are within ?? reference range. ? Sodium 140 135 - 146 mmol/L [facility] Potassium, pl 4.4 3.5 - 5.3 mmol/L [facility] Chloride 107 98 - 110 mmol/L [facility] CO2 26 20 - 32 mmol/L [facility] Calcium 8.8 8.6 - 10.2 mg/dL [facility] Protein, sr 7.0 6.1 - 8.1 g/dL [facility] Albumin 4.0 3.6 - 5.1 g/dL [facility] GLOBULIN 3.0 1.9 - 3.7 g/dL (calc) [facility] Alb/glob ratio 1.3 1.0 - 2.5 (calc) [facility] Bilirubin, total 0.4 0.2 - 1.2 mg/dL [facility] Alk phos 69 31 - 125 U/L [facility] AST 11 10 - 30 U/L [facility] ALT (SGPT) 11 6 - 29 U/L [facility] Blood 02/20/2024 7:51 AM ROBOTIC TOY INVENTOR 02/20/2024 7:52 AM ROBOTIC TOY INVENTOR Narrative [facility] - 02/21/2024 6:04 AM ROBOTIC TOY INVENTOR FASTING:YES FASTING: YES us Lizz Clark NP LAB BLOOD ORDERABLES Final Result [facility] [address] [place] [address] * Hepatitis C antibody (10/04/2022 10:07 AM CDT) Hep C Ab Nonreactive Nonreactive [facility] Comment:Antibodies to HCV no t detected. Does NOT exclude the possibility of recent exposure to HCV. Current interpretive data was last revised on 21 Blood 10/04/2022 10:0 7 AM CDT 10/04/2022 11:26 AM CDT us Alley Reynoso MD LAB MICROBIOLOGY - GENERAL ORDERABLES Final Result [facility] Department [place] [address] from Last 3 Months or Most Recently Relevant to Health Maintenance Insurance [facility] [employer] [employer] [place] [facility] ANTHEM ACCESS Advance Directives For more information, please contact: [phone] * Full Code (Latest Code Status on File) Date Activated Date Inactivated Comments 05/13/2023 7:05 AM 05/14/2023 8:48 PM * Full Code Date Activated Date Inactivated Comments 05/12/2023 4:43 PM 05/13/2023 7:05 AM Full CPR in case of cardiopulmonary arrest * Full Code Date Activated Date Inactivated Comments 07/04/2022 11:52 AM 07/04/2022 7:24 PM * Full Code Date Activated Date Inactivated Comments 05/29/2021 6:30 PM 05/31/2021 8:27 PM * Full Code Date Activated Date Inactivated Comments 05/28/2021 12:25 PM 05/29/2021 6:30 PM Full CPR in case of cardiopulmonary arrest Care Teams Automatic Embroidery Machine Tender Relationship Specialty Start Date End Date Judy Fishman NP [address] [address] PCP - General 07/31/18 Jessica Martínez MD [address] [address] Consulting Physician Obstetrics and Gynecology 11/16/20
--- OUTSIDE RECORDS SUMMARY | 2024-04-11 06:10 | XMS_ITS | Encounter Summary ---
Author Organization [facility] Address [address] [place] [address] Phone Care Team Providers Care Engineering Analyst Name Role Phone Judy Fishman NP Primary Care Provider + Jessica Martínez MD Unavailable Reason for Visit * Reason Onset Date Comments Treatment Plan Update 12/11/2023 12/11/2023 rov Encounter Details Date Type Department Care Team (Late st Contact Info) Description 12/11/2023 Documentation [facility] Gastroenterology [address] [facility] 12th [place] [address] [place] [address] Abiola Silverman, RU Treatment Plan Update (12/11/2023 rov) Social History Tobacco Use Types Packs/Day Years [...] How often do you attend chur or methodist services? 1 to 4 times per year 05/14/2023 Do you belong to any clubs o r organizations such as zoroastrian groups, unions, fraternal or athletic groups, or [...] place to sleep or slept in a mcc (including now)? 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 Gender Identity Not on file Sexual Orientation Not on file documented as of this encounter Progress Notes * Abiola Silverman, RN - 12/11/2023 4:15 PM CDT Plan per Lizz: - continue q4 entyvio - labs - rov 8 months 12/17/2023 Per Maycol: - agree w/ plan documented in this encounter Plan of Treatment Not on file documented as of this encounter Visit Diagnoses Not on filedocumented in this encounter Care Teams Engineering Analyst Relationship Specialty Start Date End Date Judy Fishman NP [address] [id number] PCP - General 07/31/18 Jessica Martínez MD [address] [address] Consulting Physician Obstetrics and Gynecology 11/16/20 documented as of this encounter
--- OUTSIDE RECORDS SUMMARY | 2024-04-11 06:10 | XMS_ITS | Encounter Summary ---
Author Organization [facility] Address [address] [place] [address] Phone Care Team Providers Care Circuit Breaker Supervisor Name Role Phone Judy Fishman NP Primary Care Provider + Jessica Martínez MD Unavailable [phone] Reason for Visit * Reason Onset Date Comments bleeding 06/16/2023 Encounter Details Date Type Department Care Team (Late st Contact Info) Description 06/16/2023 Telephone [facility] Maternal- Medicine [address] [facility] 7th [address] [place] [address] Pauline Campos RN postpartum bleeding Social History Tobacco Use Types Packs/Day Years [...] often do you attend chur ch or jehovah's witness services? 1 to 4 times per year 05/14/2023 Do you belong to any clubs o r organizations such as sikh groups, unions, fraternal or athletic groups, or [...] place to sleep or slept in a assisted (including now)? No 05/14/2023 [place] Depression Scale Answer Date Recorded [place] Depression Scale Total 2 07/10/2021 The thought of harming myself has occurred to me . Never 07/10/2021 Personal Safety Answer Date Recorded Have you ever been in or are you currently in a harmful physical or emotional relationship or is someone making you feel afraid or unsafe? Denies 05/12/2023 Comments No Sex and Gender Information Value Date Recorded Sex Assigned at Not on file Legal Sex Female 7:54 PM ANIMAL STUNNER Gender Identity Not on file Sexual Orientation Not on file documented as of this encounter Miscellaneous Notes * Telephone Encounter - Pauline Campos RN - 06/16/2023 9:16 AM CST Liliana called and left a message regarding questions about her bleeding. She is having a Crohn's flare and on steroids currently. She states she thinks she started her period 2 days ago and she is still bleeding. She states she is having small clots sometimes. I asked if she is having to change her pad every hour and she statedno it is every couple of hours or more. She just wanted to make sure this was normal. I reassured her that this is more than likely her first period after having the baby. I gave her precautions of when to call back or be evaluated. She thanked me for the call. AL STUNNER documented in this encounter Plan of Treatment Not on file documented as of this encounter Visit Diagnoses Not on filedocumented in this encounter Care Teams Circuit Breaker Supervisor Relationship Specialty Start Date End Date Judy Fishman NP [address] [id number] PCP - General 07/31/18 Jessica Martínez MD [address] [address] Consulting Physician Obstetrics and Gynecology 11/16/20 documented as of this encounter
--- OUTSIDE RECORDS SUMMARY | 2024-04-11 06:10 | XMS_ITS | Encounter Summary ---
Author Organization [facility] Address [address] [place] [address] Phone Care Team Providers Care Food Service Team Member Name Role Phone Judy Fishman NP Primary Care Provider + Jessica Martínez MD Unavailable [phone] Encounter Details Date Type Department Care Team (Late st Contact Info) Description 05/22/2023 Telephone [facility] Maternal- Medicine [address] [facility] 7th Floor [address] [place] [address] Dorene England BS Social History Tobacco Use Types Packs/Day Years [...] often do you attend chur ch or restorationism services? 1 to 4 times per year 05/14/2023 Do you belong to any clubs o r organizations such as congregational groups, unions, fraternal or athletic groups, or [...] place to sleep or slept in a intermediate (including now)? No 05/14/2023 [place] Depression Scale Answer Date Recorded [place] Depression Scale Total 2 07/10/2021 The thought [...] on file Legal Sex Female 7:54 PM BUCKET PUSHER Gender Identity Not on file Sexual Orientation Not on file documented as of this encounter Miscellaneous Notes * Telephone Encounter - Dorene England BS - 05/22/2023 3:46 PM CST 05/22- patient called stating that she has an [employer] plan with her , and in order to get paid for this, she needs a claim with diagnosis codes for her hospital stay so she an turn this into them for payment. ET PUSHER documented in this encounter Plan of Treatment Not on file documented as of this encounter Visit Diagnoses Not on filedocumented in this encounter Care Teams Food Service Team Member Relationship Specialty Start Date End Date Judy Fishman NP [address] [address] PCP - General 07/31/18 Jessica Martínez MD [address] [address] Consulting Physician Obstetrics and Gynecology 11/16/20 documented as of this encounter
--- OUTSIDE RECORDS SUMMARY | 2024-04-11 06:10 | XMS_ITS | Referral Summary ---
Author Organization [facility] Address [address] [place] [address] Care Team Providers Care Demand Planner Name Role Phone Kye Judy Peter SHUTTLE THREADER Primary Care Provider + Jessica Martínez MD Unavailable [phone] Encounters Date Type Department Care Team Description 03/30/2024 Telephone [facility] Gastroenterology [address] [facility] 12th [place] [address] [place] [address] Hermelinda Don Medical Records Request 02/25/2024 Documentation Gastroententerology Lydia Rivera M.A. 01/13/2024 Telephone [facility] Gastroenterology [address] [facility] 12th [place] [address] [place] [address] Dianelys Espinoza Signed POT for entyvio from Last 3 Months Allergies Active Allergy Reactions Criticality Noted Date [...] 8 times per day 200 each 6 3 Active Additional Information Patient not taking.Reported on 07/31/2023 lancets 33 gauge misc CHECK GLUCOSE FASTING AND ONE HOUR AFTER EACH MEAL AND NEEDED, UP TO 8 TIMES PER WEEK 200 each 6 3 Active Additional Information Patient not taking.Reported [...] at home. MR x1 on admission to [facility]. On ASA 81 mg. Denies [...] Crohn's disease, in remission since diagnosis in 2018 - current regimen: Entyvio - history of perianal involvement: no - s/p counseling Plan [x] Continue Entyvio and follow-up with Dr. Severino - plan for next infusion following delivery. Last was in March [x] Specialized anatomy [x] Serial growth ultrasounds per GDMA2 problem [x] Mode of delivery: anticipate vaginal Assessment & Plan (04/03/2023 2:06 PM LEATHER COLORER): Asymptomatic, well controlled. Assessment & Plan (03/06/2023 1:18 AM LEATHER COLORER): Well controlled. Assessment & Plan (08/31/2021 5:47 [...] activity Assessment & Plan (05/25/2021 9:26 AM LEATHER COLORER): Discussed recommendation for both stool softener and [...] disease. Assessment & Plan (03/30/2019 3:48 PM LEATHER COLORER): Ileal Crohn's disease. Diagnosed 2018. Started entyvio [...] small intestine: In remission since diagnosis in 2018 with no perianal involvement. Current regimen: Entyvio [...] Plan [] Send weekly glucose log through [employer] for review [] Twice weekly NSTs scheduled next Fri/Fri, complete for BPP and growth next week to evaluate size [x] Serial growth ultrasounds, complete [] Plan delivery by 39 weeks - IOL scheduled 2/2 [] 2 hour gtt 6 weeks Assessment & Plan (03/06/2023 1:17 AM LEATHER COLORER): Has only taken 1 dose of increased lantus dose. Thus will continue for now. Reviewed how to transition from AM dosing to PM dosing and provided written schedule. Assessment & Plan (02/22/2023 11:29 AM LEATHER COLORER): Recommend initiation of lantus 10U morning given [...] delivery Assessment & Plan (03/06/2023 1:18 AM LEATHER COLORER): BP at goal today. Assessment & Plan (02/22/2023 11:27 AM LEATHER COLORER): We reviewed recommendation in future to present for evaluation if has elevated BP and WHITE. Reassuring that WHITE resolved and BP today normotensive. Recommend daily BP monitoring given history. Patient has BP cuff at home that was validated at the time of receipt in last . Supervision of high-risk pre gnancy, third trimester 09/30/2022 06/24/2023 Overview (05/09/2023): [x] Full M Care; [x] Blue Team Referring Provider: Trent XAVIER) [phone] [] or Medicare Insurance [x] Dating Criteria: [...] vasectomy [x] Method of feeding: Breast [x] Internet Marketing Director: Pb [x] PP Depression Discussed: Assessment & Plan (02/22/2023 11:29 AM LEATHER COLORER): Provided [email or web address] website to review. Hypertension in [...] # Disposition: Follow up task sent to [facility] scheduling pool. Desires discharge home today. pending bleeding amount Gestational diabetes mellitu s (GDM) in third trimester 04/12/2021 06/12/2021 Overview (06/05/2021): Failed 3 hour gtt Plan for PP 2 hr OGTT Assessment & Plan (05/10/2021 8:56 AM LEATHER COLORER): BS log reviewed with the majority of values at or under goal. Continue current regimen. Assessment & Plan (04/26/2021 5:10 PM LEATHER COLORER): Fastings continue to be elevated with a few elevated breakfast PCs. Will adjust bedtime insulin and have patient send log on Friday for review. Assessment & Plan (04/12/2021 1:50 PM LEATHER COLORER): Counseled today on diagnosed gDM. Discussed goal [...] [x] Blue Team Referring Provider: JESSICA Severino [phone] [facility] Jessica Mauricio: [phone]; [x] Dating Criteria: Embryo Transfer 10/03/20 with JONNATHAN 06/21/21 [x] Labs: Lab Results Component Value Date ABORH B Positive 11/24/2020 IDCOOMB Negative 11/24/2020 [id number] Nonreactive 11/24/2020 LABRPR Nonreactive 11/24/2020 RUBELIGG Reactive [...] [] COVID testing: ordered on for the [place] location, pt letter sent Counselling [x] MOD: IOL scheduled on 06/13/21 at 9PM, pt letter sent [x] Place of delivery: [facility] [] MOC: [x] Method of feeding: breast [x] Internet Marketing Director: [] PP Depression Discussed: [place] should not be given any live vaccines. Assessment & Plan (11/24/2020 3:14 PM CDT): SEROLOGIES NEEDED [] Co-management vs. [] Full MFM Care; [] Red Team [] Blue Team Referring Provider: JESSICA Severino [phone] [facility] Jessica Mauricio: [phone]; [] or Medicare Insurance [x] Dating Criteria: [...] [] MOC: [] Method of feeding: [] Internet Marketing Director: [] PP Depression Discussed: care not yet [...] from ass isted reproductive technology, antepartum 11/16/2020 03/0 04/2021 Overview (04/11/2021): Previously counseled [x] ECHO Assessment [...] 10/30/2022 Assessment & Plan (03/30/2019 3:48 PM LEATHER COLORER): High risk medications: As with all patients [...] stores with her upcoming infusion Crohn's colitis ([facility]) 10/27/2018 Obesity 10/27/2018 06/12/2020 Immunizations Name Administration Dates Next Due Influenza, Quadrivalent, Jessica l Culture-based MDCK, Preservative Free, Antibiotic Free, Intramuscular 01/24/2023,02/07/2017 Influenza, Quadrivalent, Spl it, Intramuscular 01/13/2017 Influenza, Trivalent, IM (MDV) 02/27/2014,2012 Influenza, Trivalent, Preser vative Free, Intramuscular 04/27/2012 Influenza, Unspecified 02/12/2021 MMR 05/14/2023(Deferred: Contraindication - rubella immune) Pneumococcal Conjugate PCV 13 01/26/2019 Pneumococcal Polysaccharide PPV23 03/30/2019 Tdap 02/21/2023,04/26/2021 Varicella 05/14/2023(Deferred: Contraindication - varicella immune) Social History Tobacco Use Types Packs/Day Years [...] any clubs o r organizations such as adventism groups, unions, fraternal or athletic groups, or [...] place to sleep or slept in a long-term (including now)? No 05/14/2023 [place] Depression Scale Answer Date Recorded [place] Depression Scale Total 0 06/24/2023 The thought [...] on file Legal Sex Female 7:54 PM LEATHER COLORER Gender Identity Not on file Sexual Orientation Not on file Last Filed Vital Signs Vital Sign Reading Time Taken Comments Blood Pressure 119/75 12/11/2023 2:53 PM CDT Pulse 95 12/11/2023 2:53 PM CDT Temperature 36.3 ??C (97.3 ??F) 12/11/2023 2:53 PM CD T Respiratory Rate 16 05/14/2023 7:00 AM LEATHER COLORER Oxygen Saturation 96% 12/11/2023 2:53 PM CDT Inhaled Oxygen Concentration - - Weight 108.9 kg (240 lb) 12/11/2023 2:53 PM CDT Height 157.5 cm (5' 2 ) 12/11/2023 2:53 PM CDT Body Mass Index 43.9 12/11/2023 2:53 PM CDT Plan of Treatment Not on file Medical Devices Implanted Type Area Tacker Off Device Identifier Shelf Expiration Date Model / Serial / Lot Plate/Screws In Right Ankle Ankle Procedures Procedure Name Priority Date/Time Associated Diagnosis Comments TB TEST, QUANTIFERON GOLD Routine 02/20/2024 7:56 AM LEATHER COLORER Crohn's disease of small intestine with other complication (HCC) CRP (ACUTE PHASE) Routine 02/20/2024 7:5 6 AM LEATHER COLORER Crohn's disease of small intestine with other complication (HCC) IRON PROFILE W/ IBC Routine 02/20/2024 7 :55 AM LEATHER COLORER Crohn's disease of small intestine with other complication (HCC) VITAMIN D 25 HYDROXY Routine 02/20/2024 7:55 AM LEATHER COLORER Crohn's disease of small intestine with other complication (HCC) VITAMIN B12 Routine 02/20/2024 7:55 AM LEATHER COLORER Crohn's disease of small intestine with other complication (HCC) CBC WITHOUT DIFFERENTIAL Routine 02/20/2024 7:55 AM LEATHER COLORER Crohn's disease of small intestine with other complication (HCC) COMPREHENSIVE METABOLIC PANEL Routine 02/20/2024 7:51 AM LEATHER COLORER Crohn's disease of small intestine with other complication (HCC) HEPATITIS C ANTIBODY Routine 10/04/2022 10:07 AM CDT Crohn's disease of small intestine with other complication (HCC) Supervision of high-risk , first trimester from Last 3 Months or Most Recently Relevant to Health Maintenance Results * TB test, quantiferon gold (02/20/2024 7:56 AM LEATHER COLORER) QuantiFERON(R)-T B Gold Plus, 1 Tube NEGATIVE [...] T-lymphocytes. For additional information, please refer to https://education.WeDeliver.WizIQ/faq/IHI767 (This link is being provided for informational/ educational purposes only.) Blood 02/20/2024 7:56 AM LEATHER COLORER 02/20/2024 7:57 AM LEATHER COLORER Narrative [facility] - 02/26/2024 6:44 PM LEATHER COLORER FASTING:YES FASTING: YES Lizz Clark NP LAB BLOOD ORDERABLES Final Result Performing Organization Address [facility] Co de Phone Number [facility] [address] [place] [address] * (ABNORMAL) CRP (acute phase) (02/20/2024 7:56 AM LEATHER COLORER) C-RP 37.9(H) <8.0 mg/L [facility] Blood 02/20/2024 7:56 AM LEATHER COLORER 02/20/2024 7:57 AM LEATHER COLORER Narrative [facility] - 02/26/2024 6:44 PM LEATHER COLORER FASTING:YES FASTING: YES Lizz Clark SHUTTLE THREADER LAB BLOOD ORDERABLES Final Result Performing Organization Address [facility] de Phone Number [facility] [address] [employer] [place] [address] * (ABNORMAL) Iron profile w/ IBC (02/20/2024 7:55 AM LEATHER COLORER) Iron 39(L) 40 - 190 mcg/dL [facility] TIBC 455(H) 250 - 450 mcg/dL (calc) [facility] Iron saturation 9(L) 16 - 45 % (calc) [facility] Blood 02/20/2024 7:55 AM LEATHER COLORER 02/20/2024 7:55 AM LEATHER COLORER Narrative [facility] - 02/21/2024 3:48 AM LEATHER COLORER FASTING:YES FASTING: YES Lizz Clark NP LAB BLOOD ORDERABLES Final Result Performing Organization Address [facility] Co de Phone Number [employer] [employer] [facility] [address] [place] [address] * (ABNORMAL) Vitamin D 25 hydroxy (02/20/2024 7:55 AM LEATHER COLORER) Pathologist [facility] Vitamin D 25-OH 23(L) 30 - 100 ng/mL [facility] Comment: Vitamin D Status ? 25-OH Vitamin D: Deficiency: ?<20 ng/mL Insufficiency: ? 20 - 29 ng/mL Optimal: ? > or = 30 ng/mL For 25-OH Vitamin D testing on patients on D2-supplementation and patients for whom quantitation of D2 and D3 fractions is required, the QuestAssureD(TM) 25-OH VIT D, (D2,D3), LC/MS/MS is recommended: order code 48210 (patients >2yrs). See Note 1 Note 1 For additional information, please refer to http://education.Retsly/faq/MKM795 (This link is being provided for informational/ educational purposes only.) Blood 02/20/2024 7:55 AM LEATHER COLORER 02/20/2024 7:55 AM LEATHER COLORER Narrative [facility] - 02/21/2024 3:48 AM LEATHER COLORER FASTING:YES FASTING: YES us Lizz Clark SHUTTLE THREADER LAB BLOOD ORDERABLES Final Result Performing Organization Address City/State/[facility] Co de Phone Number [facility] [address] [place] [address] * (ABNORMAL) CBC without differential (02/20/2024 7:55 AM LEATHER COLORER) [facility] WBC 8.3 3.8 - 10.8 Thousand/u [...] [facility] Blood 02/20/2024 7:55 AM LEATHER COLORER 02/20/2024 7:55 AM LEATHER COLORER Narrative [facility] - 02/21/2024 3:48 AM LEATHER COLORER FASTING:YES FASTING: YES Lizz Clark NP LAB BLOOD ORDERABLES Final Result Performing Organization Address [facility] de Phone Number [facility] [address] [place] [address] * Vitamin B12 (02/20/2024 7:55 AM LEATHER COLORER) [facility] Vitamin B12 344 200 - 1,100 pg/mL [...] will have symptoms. Blood 02/20/2024 7:55 AM LEATHER COLORER 02/20/2024 7:55 AM LEATHER COLORER Narrative [facility] - 02/21/2024 3:48 AM LEATHER COLORER FASTING:YES FASTING: YES Lizz Clark NP LAB BLOOD ORDERABLES Final Result Performing Organization Address [facility] de Phone Number [facility] [address] [place] [address] * Comprehensive metabolic panel (02/20/2024 7:51 AM LEATHER COLORER) Glucose 85 65 - 99 mg/dL [facility] Comment: ? Fasting reference interval BUN 9 7 - 25 mg/dL [facility] Creatinine 0.64 0.50 - 0.97 mg/dL [facility] eGFR 121 > OR = 60 mL/min/1.7 3m2 [facility] BUN/creat ratio SEE NOTE: 6 (calc) [facility] Comment: ?? Not [...] [facility] Blood 02/20/2024 7:51 AM LEATHER COLORER 02/20/2024 7:52 AM LEATHER COLORER Narrative [facility] - 02/21/2024 6:04 AM LEATHER COLORER FASTING:YES FASTING: YES Lizz Clark NP LAB BLOOD ORDERABLES Final Result [facility] [address] [facility] [place] [address] * Hepatitis C antibody (10/04/2022 10:07 AM CDT) Hep C Ab Nonreactive Nonreactive [facility] Comment:Antibodies to HCV no t detected. Does NOT exclude the possibility of recent exposure to HCV. Current interpretive data was last revised on 21 Blood 10/04/2022 10:0 7 AM CDT 10/04/2022 11:26 AM CDT Alley Reynoso MD LAB MICROBIOLOGY - GENERAL ORDERABLES Final Result [facility] [place] [address] from Last 3 Months or Most Recently Relevant to Health Maintenance Insurance [facility] CHOICE PLUS CHOICE PRF [place] [facility] CHOICE PLUS [facility] ACCESS [facility] CHOICE PLUS [facility] CHOICE PLUS Advance Directives For more information, please contact: [phone] * Full Code (Latest Code Status on [...] in case of cardiopulmonary arrest Care Teams Demand Planner Relationship Specialty Start Date End Date Judy Fishman NP [address] [address] PCP - General 07/31/18 Jessica Martínez MD [address] [place] [address] Consulting Physician Obstetrics and Gynecology 11/16/20
--- OUTSIDE RECORDS SUMMARY | 2024-04-11 06:10 | XMS_ITS | Encounter Summary ---
Author Organization [facility] Address [address] [place] [address] Phone Care Team Providers Care Porcelain Slusher Name Role Phone Judy Fishman NP Primary Care Provider + Jessica Martínez MD Unavailable [phone] Encounter Details Date Type Department Care Team (Late st Contact Info) Description 05/26/2023 1:30 PM INTERN Telemedicine [facility] Maternal- Medicine [facility] 7th Floor [address] [place] [address] Insulin controlled gestational diabetes mellitus (GDM) in second trimester (Primary Dx) Social History Tobacco Use Types Packs/Day Years [...] often do you attend chur ch or mormonism services? 1 to 4 times per year 05/14/2023 Do you belong to any clubs o r organizations such as caodaism groups, unions, fraternal or athletic groups, or [...] place to sleep or slept in a detention (including now)? No 05/14/2023 [place] Depression Scale Answer Date Recorded [place] Depression Scale Total 2 07/10/2021 The thought [...] on file Legal Sex Female 7:54 PM INTERN Gender Identity Not on file Sexual Orientation Not on file documented as of this encounter Progress Notes * Judy Polanco, ASSOCIATE BRAND MANAGER - 05/26/2023 1:30 PM CST This was a telemedicine visit with Liliana Mancilla alone which took place via Real-time video connection ([employer], [employer] or similar). During the visit, I was located in the office and the patient was located in her home in the [facility]. The patient visit started at 1:31 and ended at 1:41. My total encounter time on 05/26/2023 was 10 minutes which was spent in the activities documented in the note. This includes time spent prior to the visit and after the visit in direct care of the patient. This time does not include time spent in any separately reportable services. The patient: has been informed that the visit may not be secure and acknowledged the information. The option of participating in a telephone or video visit during the [facility] [place] [address] emergencywas explained to them. After being given an opportunity to ask questions about and discuss this type of visit, they verbally consented to proceeding with the telephone/video visit and understand thatthis service replaces an office visit. [facility] Visit 05/27/2023 Delivery Date: 05/13/2023 Type: Vaginal [[id number]] Delivery Details: uncomplicated Subjective: Liliana Mancilla is a 32 y.o. now here for 2 weeks exam following a Vaginal Since delivery she has been doing well. Her pain is well controlled and she reports small vaginal bleeding. Denies vaginal or bladder issues. Her GI issues are stable and she has f/u with GI scheduled. Currently breast feeding and denies issues with breasts. Reports mood has been good. Objective: General: Pleasant female in NAD Last pap: address at 6 weeks pp Verbally screened for depression or prior mood disorders/blues: feels mood has been good,denies concerns for pp depression or anxiety, denies SI/HI Assessment and Plan: Liliana Mancilla is a 32 y.o. now here for 2 week exam following a Vaginal 1. : Doing well , meeting milestones 2. Medical issues: #crohns - continue care with GI #gdm - for 2 hour gtt at 6 weeks pp- discussed and ordered for [facility] - counseled on risk of T2DM and recommend good diet, regular exercise and regular f/u with a PCP #gHTN - for counseling at next visit 3. Contraception: Plans for partner vasectomy. Declines bridge. S/p counseling. 4. depression screening as above, discussed normal baby blues and post depressionwarning signs. Will call with questions or concerns. DIEUDONNE Raphael RN documented in this encounter Plan of Treatment Scheduled Orders Name Type Priority Associated Diagnoses Orde r Schedule Glucose tolerance testing 75 gram non-gestational Lab Timed Insulin controlled gestational diabetes mellitus (GDM) in second trimester Expected: 05/27/2023, Expires: 05/27/2024 documented as of this encounter Visit Diagnoses Diagnosis Insulin controlled gestational diabetes mellitus (GDM) in second trimester- Primary documented in this encounter Discontinued Medications Medication Sig Discontinue Reason Start Date End Da te docusate sodium (COLACE) 100 mg capsuleIndications:const ipation,Stool Softener Take 1 capsule (100 mg total) by mouth 2 (two) times a day 05/14/2023 05/27/2023 documented as of this encounter Care Teams Porcelain Slusher Relationship Specialty Start Date End Date Judy Fishman NP [address] [place] [id number] PCP - General 07/31/18 Jessica Martínez MD [address] [address] Consulting Physician Obstetrics and Gynecology 11/16/20 documented as of this encounter
--- OUTSIDE RECORDS SUMMARY | 2024-04-11 06:10 | XMS_ITS | Encounter Summary ---
Author Organization [facility] Address [address] [place] [address] Phone Care Team Providers Care Management Professor Name Role Phone Judy Fishman NP Primary Care Provider + Jessica Martínez MD Unavailable [phone] Reason for Visit * Reason Onset Date Comments Treatment Plan Update 08/11/2023 07/31/2023 rov Encounter Details Date Type Department Care Team (Late st Contact Info) Description 08/11/2023 Documentation [facility] Gastroenterology [address] [facility] 12th [place] [address] [place] [address] Abiola Silverman, RU Treatment Plan Update (07/31/2023 rov) Social History Tobacco Use Types Packs/Day [...] How often do you attend chur or episcopal services? 1 to 4 times per year 05/14/2023 Do you belong to any clubs o r organizations such as restorationist groups, unions, fraternal or athletic groups, or [...] place to sleep or slept in a alf (including now)? 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 Gender Identity Not on file Sexual Orientation Not on file documented as of this encounter Progress Notes * Abiola Silverman, RN - 08/11/2023 1:27 PM CDT Plan per Lizz: - on q4 entyvio - had flare in June, feeling better now - calpro - rov 4 months Per Maycol: - agree w/ plan - if calpro elevated or new flare, see sooner Staff message sent to scheduling hub re: rov documented in this encounter Plan of Treatment Not on file documented as of this encounter Visit Diagnoses Not on filedocumented in this encounter Care Teams Management Professor Relationship Specialty Start Date End Date Judy Fishman NP [email or web address] [address] PCP - General 07/31/18 Jessica Martínez MD [email or web address] [address] Consulting Physician Obstetrics and Gynecology 11/16/20 documented as of this encounter
--- OUTSIDE RECORDS SUMMARY | 2024-04-11 06:10 | XMS_ITS | Encounter Summary ---
Author Organization [facility] Address [address] [place] [address] Care Team Providers Care Insurance Billing Specialist Name Role Phone Judy Fishman INSURANCE MANAGER Primary Care Provider + Jessica Martínez MD Unavailable [phone] Encounter Details Date Type Department Care Team (Late st Contact Info) Description 02/25/2024 Documentation Gastroententerology Lydia Rivera M.A. Social History Tobacco Use Types Packs/Day Years [...] How often do you attend chur or restorationist services? 1 to 4 times per year [...] place to sleep or slept in a longterm (including now)? No 05/14/2023 [place] Depression Scale Answer Date Recorded [place] Depression Scale Total 0 06/24/2023 The thought [...] on file Legal Sex Female 7:54 PM CREDIT REVIEW MANAGER Gender Identity Not on file Sexual Orientation Not on file documented as of this encounter Miscellaneous Notes * Research Note - yLdia Rivera M.A. - 02/25/2024 7:45 PM CST Completed SmartForm for [facility] study following GI clinic visit on 12/11/2023. IT REVIEW MANAGER documented in this encounter Plan of Treatment Not on file documented as of this encounter Visit Diagnoses Not on filedocumented in this encounter Care Teams Insurance Billing Specialist Relationship Specialty Start Date End Date Judy Fishman NP [address] [place] [address] PCP - General 07/31/18 Jessica Martínez MD [address] [place] [address] Consulting Physician Obstetrics and Gynecology 11/16/20 documented as of this encounter
--- OUTSIDE RECORDS SUMMARY | 2024-04-11 06:10 | XMS_ITS | Encounter Summary ---
Author Organization [facility] Address [address] [place] [address] Phone Care Team Providers Care Commercial Mortgage Broker Name Role Phone Judy Fishman NP Primary Care Provider + Jessica Martínez MD Unavailable [phone] Encounter Details Date Type Department Care Team (Late st Contact Info) Description 06/13/2023 Orders Only [facility] Gastroenterology [address] [facility] [facility] Advanced Medicine 12th [place] [address] [place] [address] Trent Severino MD [address] [place], [place] [id number] Crohn's disease of small intestine with other complication (HCC) (Primary Dx); High risk medications (not anticoagulants) long-term use; Diarrhea, unspecified type Social History Tobacco Use Types Packs/Day Years [...] week 05/14/2023 How often do you attend [facility] or [facility] services? 1 to 4 times per year 05/14/2023 Do you belong to any clubs o r organizations such as catholic groups, unions, fraternal or athletic groups, or [...] place to sleep or slept in a half-way (including now)? No 05/14/2023 [place] Depression Scale Answer Date Recorded [place] Depression Scale Total 2 07/10/2021 The thought [...] on file Legal Sex Female 7:54 PM WATER HAULER Gender Identity Not on file Sexual Orientation Not on file documented as of this encounter Ordered Prescriptions Prescription Sig Dispense Quantity Refills Last Filled Start Date End Date predniSONE (DELTASONE) 10 mg tablet Take 4 tablets (40 mg) by mouth daily for 7 days, THEN 3 tablets (30 mg) daily for 7 days, THEN 2 tablets (20 mg) daily for 7 days, THEN 1 tablet (10 mg) daily for 7 days. Take by mouth as directed. 70 tablet 06/13/2023 documented in this encounter Progress Notes * Rut Palafox LPN - 06/13/2023 3:28 PM CST Images from the original note were not included. R HAULER documented in this encounter Plan of Treatment Not on file documented as of this encounter Procedures Procedure Name Priority Date/Time Associated Diagnosis Comments COPY(IES) SENT TO: Routine 06/16/2023 12 :33 PM WATER HAULER C.DIFF CULT W/REFL Routine 06/16/2023 12 :33 PM WATER HAULER Crohn's disease of small intestine with other complication (HCC) High risk medications (not anticoagulants) long-term use Diarrhea, unspecified type CALPROTECTIN, FECAL Routine 06/16/2023 12:33 PM WATER HAULER Crohn's disease of small intestine with other complication (HCC) High risk medications (not anticoagulants) long-term use Diarrhea, unspecified type documented in this encounter Results * COPY(IES) SENT TO: (06/16/2023 12:33 PM WATER HAULER) COPY(IES) SENT TO: [facility] Comment: ?[facility] ?COPY TO ACCOUNT ?[id number] ?[place] [address] 06/16/2023 12:3 3 PM WATER HAULER 06/16/2023 12:34 PM WATER HAULER Trent Severino MD LAB BLOOD ORDERABLES Final Re sult Performing Organization Address [facility] Co de Phone Number [facility] * Clostridium difficile Culture with Reflex to Clostridium difficile Toxin B, PCR Stool (06/16/2023 12:33 PM WATER HAULER) C. difficile culture NOT ISOLATED [facility], Comment: REFERENCE RANGE: NOT ISOLATED For additional information, please refer to http://education.Lanx/faq/AXY467 (This link is being provided for informational/ educational purposes only.) Stool 06/16/2023 12:3 3 PM WATER HAULER 06/16/2023 12:34 PM WATER HAULER Trent Severino MD LAB MICROBIOLOGY - GENERAL OR DERABLES Final Result Performing Organization Address [facility] de Phone Number [facility], [address] [place] [address] * (ABNORMAL) Calprotectin, fecal (06/16/2023 12:33 PM WATER HAULER) Calprotectin, Stool 615(H) mcg/g [facility], Comment: ?Reference Range: ?<50 ? Normal ?50-120 ??Borderline ?>120 ?Elevated Calprotectin in Crohn's disease and ulcerative colitis can be five to several thousand times above the reference population (50 mcg/g or less). Levels are usually 50 mcg/g or less in healthy patients and with irritable bowel syndrome. Repeat testing in 4-6 weeks is suggested for borderline values. Stool 06/16/2023 12:3 3 PM WATER HAULER 06/16/2023 12:34 PM WATER HAULER Trent Severino MD LAB BODY FLUIDS AND STOOLS OR DERABLES Final Result Performing Organization Address City/State/[facility] Co de Phone Number [facility], [address] [place] [address] documented in this encounter Visit Diagnoses Diagnosis Crohn's disease of small intestine with other complication (HCC)- Primary High risk medications (not anticoagulants) long-term use Encounter for long-term (current) use of other medications Diarrhea, unspecified type documented in this encounter Care Teams Commercial Mortgage Broker Relationship Specialty Start Date End Date Judy Fishman NP [address] [address] PCP - General 07/31/18 Jessica Martínez MD [address] [address] Consulting Physician Obstetrics and Gynecology 11/16/20 documented as of this encounter
--- OUTSIDE RECORDS SUMMARY | 2024-04-11 06:10 | XMS_ITS | Encounter Summary ---
Author Organization [facility] Address [address] [place] [address] Phone Care Team Providers Care Inspector Balance Wheel Motion Name Role Phone Judy Fishman NP Primary Care Provider + Jessica Martínez MD Unavailable [phone] Encounter Details Date Type Department Care Team (Late st Contact Info) Description 12/11/2023 3:30 PM CDT Office Visit [facility] [address] [facility] Advanced Medicine 12th [place] [address] [place] [address] Lizz Clark NP [address] [place] [address] Crohn's disease of small intestine with other complication (HCC) (Primary Dx); High risk medications (not anticoagulants) long-term use Social History Tobacco Use Types Packs/Day Years [...] week 05/14/2023 How often do you attend [facility] or [facility] services? 1 to 4 times per year [...] place to sleep or slept in a senior care (including now)? No 05/14/2023 [place] Depression Scale Answer Date Recorded [place] Depression Scale Total 0 06/24/2023 The thought [...] on file Legal Sex Female 7:54 PM ASSISTANT FRONT OFFICE MANAGER Gender Identity Not on file Sexual Orientation Not on file documented as of this encounter Last Filed Vital Signs Vital Sign Reading Time Taken Comments Blood Pressure 119/75 12/11/2023 2:53 PM CDT Pulse 95 12/11/2023 2:53 PM CDT Temperature 36.3 ??C (97.3 ??F) 12/11/2023 2:53 PM CD T Respiratory Rate - - Oxygen Saturation 96% 12/11/2023 2:53 PM CDT Inhaled Oxygen Concentration - - Weight 108.9 kg (240 lb) 12/11/2023 2:53 PM CDT Height 157.5 cm (5' 2 ) 12/11/2023 2:53 PM CDT Body Mass Index 43.9 12/11/2023 2:53 PM CDT documented in this encounter Progress Notes * Lizz Clark NP - 12/11/2023 3:30 PM CDT NAME: Liliana Mancilla : 1990 DATE: 12/11/2023 Reason for visit: Crohn's disease HPI: Liliana Mancilla is a 33 y.o. female past medical history of at least ileal Crohn's disease whopresents today for follow-up on entyvio every 4 weeks. She delivered her daughter 7 months ago. Hasa 2 year old son as well. Ileal crohn's disease diagnosed in July 2018 after presentation with weight loss and diarrhea. Shewas started on entyvio in December 2018. She was noted to have a low entyvio level in March 2020 and she was advanced to every 6 week infusions. Her levels remain low so in 09/2019 she was furtheradvanced to every 4 weeks. Her last colonoscopy was at time of diagnosis by Dr. Gomez at an outside hospital. She has a family history of crohn's with a paternal aunt and cousins with a historyof Crohn's. MRE 03/2019 showed improvement in terminal ieal inflammation. Last MRE in 2019 no active inflammation seen. Had repeat colonoscopy 06/2022 remains in endoscopic and histologic remission. Had reached out to us in June 2023 with diarrhea, abdominal cramping. Calprotectin high at 615. Did a course of prednisone. Calprotectin normalized and has been doing well since. Having 2-3 stools daily. Denies any abdominal pain. Denies any nausea or vomiting. Denies any hematochezia. Continues to do well. Patient Active Problem List Diagnosis Date Noted Decreased movements in third trimester 05/12/2023 Liliana Mancilla is a 32 y.o. female [...] MAJOR risk factors BMI >/= 40 and thefollowing MINOR risk factors none. enoxaparin 40 mg BID will be ordered for VTE prophylaxis . c/b: #gHTN #hx of preeclampisa: Pt reports two MR BPs while checking at home. MR x1 on admission to [facility].On ASA 81 mg. Denies WHITE, vision changes, [...] Banjo, Bakri + packing, 2u PRBC. Starting Hgbon admission pending. #Hx of LEEP: In 1st trimester. Routine midtrimester cervical length screening normal. Skin rash 08/31/2021 NAFLD (nonalcoholic fatty liver disease) 06/12/2020 Crohn's disease of small intestine with other complication (HCC) 12/01/2018 History - diagnosis: Crohn's disease, in remission since diagnosis in 2019 - current regimen: Entyvio - history of perianal involvement: no - s/p counseling Plan [x] Continue Entyvio and follow-up with Dr. Severino - plan for next infusion following delivery. Last was in March [x] Specialized anatomy [x] Serial growth ultrasounds per GDMA2 problem [x] Mode of delivery: anticipate vaginal Chronic diarrhea 11/08/2018 Past Medical History: Diagnosis Date Autoimmune disorder (HCC) Crohn's disease (CMS/HCC) (HCC) 2018 Diabetes mellitus (HCC) GDM Hypertension in , preeclampsia, delivered 07/10/2021 Iron deficiency anemia due to chronic blood loss 11/13/2018 care following vaginal delivery 05/29/2021 # ID: Afebrile. No signs/symptoms of infection. [...] for PO iron on d/c. # CV/Pulm: Current Outpatient Medications Medication Sig Dispense Refill acetaminophen (TYLENOL) 325 mg tablet Take 2 tablets (650 mg total) by mouth every 6 (six) hours asneeded for pain 30 tablet 0 EnilloRing 0.12-0.015 mg/24 hr vaginal ring INSERT 1 RING VAGINALLY EVERY 21 DAYS TO SKIP CYCLES vedolizumab (ENTYVIO) 300 mg recon soln 5 mL (300 mg total) acetaminophen 32 mg/mL (Patient not taking: Reported on 07/31/2023) aspirin 81 mg chewable tablet Chew 1 tablet every day by oral route. (Patient not taking: Reported on 07/31/2023) blood glucose diagnostic strip Check glucose fasting and one hour after each meal and as needed, upto 8 times per day (Patient not taking: Reported on 07/31/2023) 200 each 6 diphenhydrAMINE HCL 25 mg tablet,disintegrating Take 25 mg by mouth every 4 (four) hours (Patient not taking: Reported on 07/31/2023) docusate sodium (COLACE) 100 mg capsule Take 1 capsule (100 mg total) by mouth 2 (two) times a day as needed for constipation (Patient not taking: Reported on 12/11/2023) 60 capsule 3 ferrous sulfate 325 mg (65 mg of elemental iron) tablet Take 1 tablet (325 mg total) by mouth everyother day (Patient not taking: Reported on 07/31/2023) 15 tablet 3 ibuprofen (ADVIL,MOTRIN) 600 mg tablet Take 1 tablet (600 mg total) by mouth every 6 (six) hours (Patient not taking: Reported on 07/31/2023) 30 tablet 0 insulin glargine (LANTUS) 100 unit/mL (3 mL) pen for injection Inject 10 units under the skin in the morning (Patient not taking: Reported on 07/31/2023) 15 mL 3 lancets 33 gauge misc CHECK GLUCOSE FASTING AND ONE HOUR AFTER EACH MEAL AND NEEDED, UP TO 8 TIMES PER WEEK (Patient not taking: Reported on 07/31/2023) 200 each 6 lidocaine (ASPERCREME) 4 % adhesive patch,medicated Place 2 patches on the skin daily (Patient not taking: Reported on 07/31/2023) 15 patch 0 pen needle, diabetic 33 gauge x 5/32 needle 1 INJECTIONS DAILY DIRECTED (Patient not taking: Reported on 07/31/2023) 100 each 2 polyethylene glycol (MIRALAX) 17 gram/dose bulk powder Take 17 g by mouth daily (Patient not taking: Reported on 07/31/2023) 510 g 0 vit no.124/iron/folic ( VITAMIN ORAL) Take by mouth (Patient not taking: Reported on 12/11/2023) No current facility-administered medications for this visit. Review of Systems: Constitutional: Negative. HENT: Negative for sore throat and trouble swallowing. Eyes: Negative. Respiratory: Negative. Cardiovascular: Negative. Gastrointestinal: See HPI Endocrine: Negative. Genitourinary: Negative. Musculoskeletal: Negative. Skin: Negative. Allergic/Immunologic: Negative. Neurological: Negative. Hematological: Negative. Psychiatric/Behavioral: Negative. Breast: Negative. Physical Exam: BP 119/75 Pulse 95 Temp 36.3 ??C (97.3 ??F) Ht 157.5 cm (5' 2 ) Wt 108.9 kg (240 lb) QvC301% BMI 43.90 kg/m?? GENERAL: Well-appearing, in no acute distress. HEENT: Sclerae anicteric. Oropharynx without lesion. NECK: Supple without lymphadenopathy or thyromegaly. LUNGS: Clear to auscultation bilaterally, breath sounds symmetrical bilaterally CARDIOVASCULAR: Regular rate and rhythm with no murmur, rub or gallop ABDOMEN: Flat, soft, non-tender; bowel sounds normal active in all four quadrants, no hepatosplenomegaly, or palpable masses RECTAL: deferred EXTREMITIES: No clubbing, cyanosis or edema. SKIN: No rash or jaundice. NEUROLOGIC: Grossly nonfocal on simple observation with normal insight, memory, affect, and orientation Imaging Review none Assessment/Plan: Crohn's disease Ileal CD dx 2019 on entyvio every 4 weeks. In remission on colonoscopy 06/2022. Had a daughter 7 months ago. went well. Started to flare in June with calprotectin of 615. Did a course of prednisone and calprotectin normalized and feeling well. -continue entyvio -continue to monitor safety labs -no change in current treatment plan -follow up in 8 months High risk medications: As with all patients [...] review and are encouraged to contact us withany questions regarding new symptom development. No problem-specific Assessment & Plan notes found for this encounter. Follow up: Return in about 8 months (around 08/10/2024). documented in this encounter Plan of Treatment Not on file documented as of this encounter Procedures Procedure Name Priority Date/Time Associated Diagnosis Comments TB TEST, QUANTIFERON GOLD Routine 02/20/2024 7:56 AM ASSISTANT FRONT OFFICE MANAGER Crohn's disease of small intestine with other complication (HCC) CRP (ACUTE PHASE) Routine 02/20/2024 7:5 6 AM ASSISTANT FRONT OFFICE MANAGER Crohn's disease of small intestine with other complication (HCC) IRON PROFILE W/ IBC Routine 02/20/2024 7 :55 AM ASSISTANT FRONT OFFICE MANAGER Crohn's disease of small intestine with other complication (HCC) VITAMIN D 25 HYDROXY Routine 02/20/2024 7:55 AM ASSISTANT FRONT OFFICE MANAGER Crohn's disease of small intestine with other complication (HCC) CBC WITHOUT DIFFERENTIAL Routine 02/20/2024 7:55 AM ASSISTANT FRONT OFFICE MANAGER Crohn's disease of small intestine with other complication (HCC) VITAMIN B12 Routine 02/20/2024 7:55 AM ASSISTANT FRONT OFFICE MANAGER Crohn's disease of small intestine with other complication (HCC) COMPREHENSIVE METABOLIC PANEL Routine 02/20/2024 7:51 AM ASSISTANT FRONT OFFICE MANAGER Crohn's disease of small intestine with other complication (HCC) documented in this encounter Results * TB test, quantiferon gold (02/20/2024 7:56 AM ASSISTANT FRONT OFFICE MANAGER) QuantiFERON(R)-T B Gold Plus, 1 Tube NEGATIVE [...] T-lymphocytes. For additional information, please refer to https://education.[employer]/faq/ARM442 (This link is being provided for informational/ educational purposes only.) Blood 02/20/2024 7:56 AM ASSISTANT FRONT OFFICE MANAGER 02/20/2024 7:57 AM ASSISTANT FRONT OFFICE MANAGER Narrative [facility] - 02/26/2024 6:44 PM ASSISTANT FRONT OFFICE MANAGER FASTING:YES FASTING: YES Lizz Clark NP LAB BLOOD ORDERABLES Final Result Performing Organization Address [facility] Co de Phone Number [facility] [address] [place] [address] * (ABNORMAL) CRP (acute phase) (02/20/2024 7:56 AM ASSISTANT FRONT OFFICE MANAGER) C-RP 37.9(H) <8.0 mg/L [facility] Blood 02/20/2024 7:56 AM ASSISTANT FRONT OFFICE MANAGER 02/20/2024 7:57 AM ASSISTANT FRONT OFFICE MANAGER Narrative [facility] - 02/26/2024 6:44 PM ASSISTANT FRONT OFFICE MANAGER FASTING:YES FASTING: YES Lizz Clark NP LAB BLOOD ORDERABLES Final Result Performing Organization Address [facility] Co de Phone Number [facility] [address] [place] [address] * (ABNORMAL) Iron profile w/ IBC (02/20/2024 7:55 AM ASSISTANT FRONT OFFICE MANAGER) Iron 39(L) 40 - 190 mcg/dL [facility] TIBC 455(H) 250 - 450 mcg/dL (calc) [facility] Iron saturation 9(L) 16 - 45 % (calc) [facility] Blood 02/20/2024 7:55 AM ASSISTANT FRONT OFFICE MANAGER 02/20/2024 7:55 AM ASSISTANT FRONT OFFICE MANAGER Narrative [facility] - 02/21/2024 3:48 AM ASSISTANT FRONT OFFICE MANAGER FASTING:YES FASTING: YES us Lizz Clark HEADING SAW OPERATOR LAB BLOOD ORDERABLES Final Result Performing Organization Address City/State/[facility] Co de Phone Number [facility] [address] [place] [address] * (ABNORMAL) Vitamin D 25 hydroxy (02/20/2024 7:55 AM ASSISTANT FRONT OFFICE MANAGER) Pathologist [facility] Vitamin D 25-OH 23(L) 30 - 100 ng/mL [facility] Comment: Vitamin D Status ? 25-OH Vitamin D: Deficiency: ?<20 ng/mL Insufficiency: ? 20 - 29 ng/mL Optimal: ? > or = 30 ng/mL For 25-OH Vitamin D testing on patients on D2-supplementation and patients for whom quantitation of D2 and D3 fractions is required, the Tablelist IncureD() 25-OH VIT D, (D2,D3), LC/MS/MS is recommended: order code 68515 (patients >2yrs). See Note 1 Note 1 For additional information, please refer to http://education.[employer]/faq/SLG834 (This link is being provided for informational/ educational purposes only.) Blood 02/20/2024 7:55 AM ASSISTANT FRONT OFFICE MANAGER 02/20/2024 7:55 AM ASSISTANT FRONT OFFICE MANAGER Narrative [facility] - 02/21/2024 3:48 AM ASSISTANT FRONT OFFICE MANAGER FASTING:YES FASTING: YES Lizz Clark HEADING SAW OPERATOR LAB BLOOD ORDERABLES Final Result Performing Organization Address [facility] de Phone Number [facility] [address] [place] [address] * Vitamin B12 (02/20/2024 7:55 AM ASSISTANT FRONT OFFICE MANAGER) Pathologist [facility] Vitamin B12 344 200 - 1,100 pg/mL [...] will have symptoms. Blood 02/20/2024 7:55 AM ASSISTANT FRONT OFFICE MANAGER 02/20/2024 7:55 AM ASSISTANT FRONT OFFICE MANAGER Narrative [facility] - 02/21/2024 3:48 AM ASSISTANT FRONT OFFICE MANAGER FASTING:YES FASTING: YES Lizz Clark HEADING SAW OPERATOR LAB BLOOD ORDERABLES Final Result Performing Organization Address [facility] de Phone Number [facility] [address] [place] [address] * (ABNORMAL) CBC without differential (02/20/2024 7:55 AM ASSISTANT FRONT OFFICE MANAGER) Pathologist [facility] WBC 8.3 3.8 - 10.8 Thousand/u L [...] [facility] Blood 02/20/2024 7:55 AM ASSISTANT FRONT OFFICE MANAGER 02/20/2024 7:55 AM ASSISTANT FRONT OFFICE MANAGER Narrative [facility] - 02/21/2024 3:48 AM ASSISTANT FRONT OFFICE MANAGER FASTING:YES FASTING: YES Lizz Clark NP LAB BLOOD ORDERABLES Final Result [facility] [address] [place] [address] * Comprehensive metabolic panel (02/20/2024 7:51 AM ASSISTANT FRONT OFFICE MANAGER) [facility] Glucose 85 65 - 99 mg/dL [facility] Comment: ? Fasting reference interval BUN 9 7 - 25 mg/dL [facility] Creatinine 0.64 0.50 - 0.97 mg/dL [facility] eGFR 121 > OR = 60 mL/min/1.7 3m2 [facility] BUN/creat ratio SEE NOTE: 6 22 (calc) [facility] Comment: ?? [...] [facility] Blood 02/20/2024 7:51 AM ASSISTANT FRONT OFFICE MANAGER 02/20/2024 7:52 AM ASSISTANT FRONT OFFICE MANAGER Narrative [facility] - 02/21/2024 6:04 AM ASSISTANT FRONT OFFICE MANAGER FASTING:YES FASTING: YES us Lizz Clark HEADING SAW OPERATOR LAB BLOOD ORDERABLES Final Result [facility] [address] [place] [address] documented in this encounter Visit Diagnoses Diagnosis Crohn's disease of small intestine with other complication (HCC)- Primary High risk medications (not anticoagulants) long-term use Encounter for long-term (current) use of other medications documented in this encounter Historical Medications * This list may reflect changes made after this encounter. EnilloRing 0.12-0.015 mg/24 hr vaginal ring INSERT 1 RING VAGINALLY EVERY 21 DAYS TO SKIP CYCLES 10/21/2023 added in this encounter Care Teams Inspector Balance Wheel Motion Relationship Specialty Start Date End Date Judy Fishman NP [address] [address] PCP - General 07/31/18 Jessica Martínez MD [address] [address] Consulting Physician Obstetrics and Gynecology 11/16/20 documented as of this encounter
--- OUTSIDE RECORDS SUMMARY | 2024-04-11 06:10 | XMS_ITS | Encounter Summary ---
Author Organization [facility] Address [address] [place] [address] Phone Care Team Providers Care Air Brake Mechanic Name Role Phone Judy Fishman NP Primary Care Provider + Jessica Martínez MD Unavailable [phone] Encounter Details Date Type Department Care Team (Late st Contact Info) Description 07/31/2023 2:30 PM CDT Office Visit [facility] Gastroenterology [address] [facility] [address] 12th [place] [address] [place] [address] Lizz Clark NP [address] [place] [address] Crohn's disease of small intestine with other complication (HCC) (Primary Dx); High risk medications (not anticoagulants) long-term use; NAFLD (nonalcoholic fatty liver disease) Social History Tobacco Use Types Packs/Day Years [...] often do you attend chur ch or jew services? 1 to 4 times per year 05/14/2023 Do you belong to any clubs o r organizations such as samaritan groups, unions, fraternal or athletic groups, or [...] to sleep or slept in a senior living (including now)? 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 Gender Identity Not on file Sexual Orientation Not on file documented as of this encounter Last Filed Vital Signs Vital Sign Reading Time Taken Comments Blood Pressure 126/82 07/31/2023 2:10 PM CDT Pulse 106 07/31/2023 2:10 PM CDT Temperature 36.7 ??C (98.1 ??F) 07/31/2023 2:10 PM CD T Respiratory Rate - - Oxygen Saturation - - Inhaled Oxygen Concentration - - Weight 110 kg (242 lb 6.4 oz) 07/31/2023 2:10 PM CDT Height 157.5 cm (5' 2 ) 07/31/2023 2:10 PM CDT Body Mass Index 44.34 07/31/2023 2:10 PM CDT documented in this encounter Progress Notes * Lizz Clark, BINU - 07/31/2023 2:30 PM CDT NAME: Liliana Mancilla : 1990 DATE: 07/31/2023 Reason for visit: Crohn's disease HPI: Liliana Mancilla is a 33 y.o. female with a past medical history of at least ileal Crohn's disease who presents today for follow-up on entyvio every 4 weeks. She delivered her daughter 11 weeks ago. Ileal crohn's disease diagnosed in July 2018 [...] Had reached out to us in June with diarrhea, abdominal cramping. Calprotectin high at 615. Did a course of prednisone. Now feeling well. Abdominal pain resolved. Having anywhere from 1-4 stools daily depending on the day. Anderson any nausea or vomiting. Has noted some joint pain in her knees, shoulders and back. Patient Active Problem List Diagnosis Date Noted [...] at home. MR x1 on admission to [facility].On ASA 81 mg. Denies WHITE, vision changes, [...] hours asneeded for pain 30 tablet 0 vit no.124/iron/folic ( VITAMIN ORAL) Take by mouth vedolizumab [...] as needed for constipation 60 capsule 3 ferrous sulfate 325 mg [...] taking: Reported on 07/31/2023) 510 g 0 No current facility-administered medications for this visit. Review of Systems: Constitutional: Negative. HENT: Negative for sore throat and trouble swallowing. Eyes: Negative. Respiratory: Negative. Cardiovascular: Negative. Gastrointestinal: See HPI Endocrine: Negative. Genitourinary: Negative. Musculoskeletal: Negative. Skin: Negative. Allergic/Immunologic: Negative. Neurological: Negative. Hematological: Negative. Psychiatric/Behavioral: Negative. Breast: Negative. Physical Exam: BP 126/82 Pulse 106 Temp 36.7 ??C (98.1 ??F) Ht 157.5 cm (5' 2 ) Wt 110 kg (242 lb 6.4 oz) BMI 44.34 kg/m?? GENERAL: Well-appearing, in no acute distress. [...] remission on colonoscopy 06/2022. Had a daughter 11 weeks ago. went well. Started to flare in June with calprotectin of 615. Did a course of prednisone and now feeling well. -continue entyvio -continue to monitor safety labs -repeat calprotectin if elevated consider therapy change -options discussed were stelara vs. skyrizi -follow up in 3-4 months High risk medications: As with all [...] this encounter. Follow up: Return in about 4 months (around 11/30/2023). documented in this encounter Plan of Treatment Not on file documented as of this encounter Procedures Procedure Name Priority Date/Time Associated Diagnosis Comments CALPROTECTIN, FECAL Routine 08/07/2023 1:56 PM CDT Crohn's disease of small intestine with other complication (HCC) documented in this encounter Results * Calprotectin, fecal (08/07/2023 1:56 PM CDT) Calprotectin, Stool 49 mcg/g [facility], Comment: ?Reference Range: ?<50 ? Normal ?50-120 ??Borderline ?>120 ?Elevated Calprotectin in Crohn's disease and ulcerative colitis can be five to several thousand times above the reference population (50 mcg/g or less). Levels are usually 50 mcg/g or less in healthy patients and with irritable bowel syndrome. Repeat testing in 4-6 weeks is suggested for borderline values. Stool 08/07/2023 1:56 PM CDT 08/08/2023 3:45 AM CDT Lizz Clark NP LAB BODY FLUIDS AND STOOLS ORDERABLES Final Result [facility] [address] [place] [address] documented in this encounter Visit Diagnoses Diagnosis Crohn's disease of small intestine with other complication (HCC)- Primary High risk medications (not anticoagulants) long-term use Encounter for long-term (current) use of other medications NAFLD (nonalcoholic fatty liver disease) documented in this encounter Care Teams Air Brake Mechanic Relationship Specialty Start Date End Date Judy Fishman NP [address] [place] [id number] PCP - General 07/31/18 Jessica Martínez MD [address] [place] [id number] Consulting Physician Obstetrics and Gynecology 11/16/20 documented as of this encounter
--- OUTSIDE RECORDS SUMMARY | 2024-04-11 06:10 | XMS_ITS | Encounter Summary ---
Author Organization [facility] Address [address] [place] [address] Phone Care Team Providers Care Manager Membership Name Role Phone Judy Fishman NP Primary Care Provider + Jessica Martínez MD Unavailable [phone] Encounter Details Date Type Department Care Team (Late st Contact Info) Description 05/23/2023 Telephone [facility]etrics [facility] Gynecology [facility] [place] [address] Asha Pfeiffer Social History Tobacco Use Types Packs/Day Years [...] often do you attend chur ch or hindu services? 1 to 4 times per year 05/14/2023 Do you belong to any clubs o r organizations such as confucianist groups, unions, fraternal or athletic groups, or [...] place to sleep or slept in a fpc (including now)? 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 (DM) TIC ATTACHER OVERLOCK documented in this encounter Plan of Treatment Not on file documented as of this encounter Visit Diagnoses Not on filedocumented in this encounter Care Teams Manager Membership Relationship Specialty Start Date End Date Judy Fishman NP [address] [place] [address] [id number] PCP - General 07/31/18 Jessica Martínez MD [address] [id number] Consulting Physician Obstetrics and Gynecology 11/16/20 documented as of this encounter
--- OUTSIDE RECORDS SUMMARY | 2024-04-11 06:10 | XMS_ITS | Encounter Summary ---
Author Organization [facility] Address [address] [place] [address] Phone Care Team Providers Care Assistant Director Of Nursing Name Role Phone Judy Fishman NP Primary Care Provider + Jessica Martínez MD Unavailable [phone] Encounter Details Date Type Department Care Team (Late st Contact Info) Description 06/13/2023 Telephone [facility] Gastroenterology [address] [facility] 12th [place] [address] [place] [address] Lian Mcmanus RMA Social History Tobacco Use Types Packs/Day Years [...] often do you attend chur ch or gnosticism services? 1 to 4 times per year [...] place to sleep or slept in a mcfp (including now)? 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 Sxs started yesterday. Frequent liquid stools to the point where it was difficult to leave the bathroom. Son had a gi bug recently w/ last sxs resolving 2 weeks ago. No one else sick in the family. Pt due for next infusion 06/20/2023. Pt agreeable to stool testing. Advised pt to call after hours number if sxs worsen. Total call time: 4:51 WELL SERVICE OPERATOR * Telephone Encounter - Lian Mcmanus RMA - 06/13/2023 12:00 PM CST Pt called stating she is going to the bathroom very frequent. No pain no blood, just very loose/ liquid stool. States something is usually called in for her. Swati in her chart is pharmacy. CB [phone] WELL SERVICE OPERATOR documented in this encounter Plan of Treatment Not on file documented as of this encounter Visit Diagnoses Not on filedocumented in this encounter Care Teams Assistant Director Of Nursing Relationship Specialty Start Date End Date Judy Fishman NP [address] [address] PCP - General 07/31/18 Jessica Martínez MD [address] [address] Consulting Physician Obstetrics and Gynecology 11/16/20 documented as of this encounter
--- OUTSIDE RECORDS SUMMARY | 2024-04-11 06:10 | XMS_ITS | Encounter Summary ---
Author Organization [facility] Address [address] [place] [address] Phone Care Team Providers Care Side Show Entertainer Name Role Phone Judy Fishman NP Primary Care Provider + Jessica Martínez MD Unavailable [phone] Reason for Visit * Reason Onset Date Comments Signed POT for entyvio 01/13/2024 Encounter Details Date Type Department Care Team (Late st Contact Info) Description 01/13/2024 Telephone [facility] Gastroenterology [address] [facility] [address]th [place] [address] [place] [address] Dianelys Espinoza Signed POT for entyvio Social History Tobacco Use Types Packs/Day Years [...] How often do you attend chur or presybeterian services? 1 to 4 times per year 05/14/2023 Do you belong to any clubs o r organizations such as rastafari groups, unions, fraternal or athletic groups, or [...] in a intermediate (including now)? 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 Gender Identity Not on file Sexual Orientation Not on file documented as of this encounter Miscellaneous Notes * Telephone Encounter - Dianelys Espinoza - 01/13/2024 9:11 PM CDT Signed Plan of Treatment (POT) was scanned into Media documented in this encounter Plan of Treatment Not on file documented as of this encounter Visit Diagnoses Not on filedocumented in this encounter Care Teams Side Show Entertainer Relationship Specialty Start Date End Date Judy Fishman NP [address] [id number] PCP - General 07/31/18 Jessica Martínez MD [address] [phone] Consulting Physician Obstetrics and Gynecology 11/16/20 documented as of this encounter
--- OUTSIDE RECORDS SUMMARY | 2024-04-11 06:11 | XMS_ITS | Encounter Summary ---
Author Organization [facility] Address [address] [place] [address] Phone Care Team Providers Care Metalworker Name Role Phone Judy Fishman NP Primary Care Provider + Jessica Martínez MD Unavailable [phone] Encounter Details Date Type Department Care Team (Late st Contact Info) Description 04/17/2023 3:30 PM ACOUSTICAL TILE CARPENTERS SUPERVISOR Office Visit [facility] Gastroenterology [address] [facility] [address] 12th [place] [address] [place] [address] Lizz Clark NP [address] [place] [address] High risk medications (not anticoagulants) long-term use (Primary Dx); Crohn's disease of small intestine with other complication (HCC) Social History Tobacco Use Types Packs/Day Years [...] neighbors? More than three times a week 05/31/2021 How often do you get togethe r with friends or relatives? Three times a week 05/31/2021 How often do you attend chur ch or confucianism services? 1 to 4 times per year 05/31/2021 Do you belong to any clubs o r organizations such as alevism groups, unions, fraternal or athletic groups, or school groups? Yes 05/31/2021 How often do you attend meet ings of the clubs or organizations you belong to? Never 05/31/2021 Are you , , di vorced, , never , or living with a partner? 05/31/2021 AUDIT-C Answer Date Recorded Q1: How often [...] care, and heating? Not hard at all 05/31/2021 Hunger Vital Sign Answer Date Recorded Within the past 12 months, y ou worried that your food would run out before you got the money to buy more. Never true 05/31/19 22 Within the past 12 months, t he food you bought just didn't last and you didn't have money to get more. Never true 05/31/2021 PRAPARE - Transportation Answer Date Re corded In the past 12 months, has l ack of transportation kept you from medical appointments or from getting medications? No 05/15 In the past 12 months, has l ack of transportation kept you from meetings, work, or from getting things needed for daily living? No 05/31/2021 Housing Stability Vital Sign Answer Héctor e Recorded In the last 12 months, was t here a time when you were not able to pay the mortgage or rent on time? No 05/31/2021 In the last 12 months, how many places have you lived? 1 05/31/2021 In the last 12 months, was t here a time when you did not have a steady place to sleep or slept in a nursing home (including now)? No 05/31/2021 [place] Depression Scale Answer Date Recorded [place] Depression Scale Total 2 07/10/2021 The thought of harming myself has occurred to me . Never 07/10/2021 Personal Safety Answer Date Recorded Getting School Help Needed Denies 03/25 Comments Yes Sex and Gender Information Value Date Recorded Sex Assigned at Not on file Legal Sex Female 7:54 PM ACOUSTICAL TILE CARPENTERS SUPERVISOR Gender Identity Not on file Sexual Orientation Not on file documented as of this encounter Last Filed Vital Signs Vital Sign Reading Time Taken Comments Blood Pressure 119/79 04/17/2023 3:20 PM ACOUSTICAL TILE CARPENTERS SUPERVISOR Pulse 99 04/17/2023 3:20 PM ACOUSTICAL TILE CARPENTERS SUPERVISOR Temperature 36.6 ??C (97.8 ??F) 04/17/2023 3:20 PM CS T Respiratory Rate 16 04/17/2023 3:20 PM ACOUSTICAL TILE CARPENTERS SUPERVISOR Oxygen Saturation 97% 04/17/2023 3:20 PM ACOUSTICAL TILE CARPENTERS SUPERVISOR Inhaled Oxygen Concentration - - Weight 114.4 kg (252 lb 3.2 oz) 04/17/2023 3:20 PM ACOUSTICAL TILE CARPENTERS SUPERVISOR Height 157.5 cm (5' 2 ) 04/17/2023 3:20 PM ACOUSTICAL TILE CARPENTERS SUPERVISOR Body Mass Index 46.13 04/17/2023 3:20 PM ACOUSTICAL TILE CARPENTERS SUPERVISOR documented in this encounter Progress Notes * Lizz Clark, BINU - 04/17/2023 3:30 PM CST NAME: Liliana Mancilla : 1990 DATE: 04/17/2023 Reason for visit: Crohn's disease HPI: Liliana Mancilla is a 32 y.o. female with a past medical history of at least ileal Crohn's disease who presents today for follow-up on entyvio every 4 weeks. She is currently 35 weeks with her second child. Ileal crohn's disease diagnosed in July 2018 [...] 06/2022 remains in endoscopic and histologic remission. She is currently doing well. She had some nausea during her first trimester but has improved. Having a bowel movement daily but will occasionally skip a day. Denies any joint pain. Denies any hematochezia. Denies any significant abdominal pain. Patient Active Problem List Diagnosis Date Noted Gestational diabetes mellitus, with history of GDM 10/04/2022 - History of GDM in G1 - Early screening with A1C, 5.7 on 10/04/22- follow- up 3hr normal - 3hr OGTT in 2T: 2/4 elevated (84, 183, 138, 143) Current regimen: 04/15/2023- encouraged to be more consistent with checking after meal values Lantus 24 units every night Continue an evening walk and high protein snack. Keep food log for breakfast S/p counseling Plan [] Send weekly glucose log through [employer]Next for review [] Weekly testing - counseled weekly vs twice weekly testing. Pt prefers weekly for now due to work scheduled. movement precautions reviewed. [] Serial growth ultrasounds, next scheduled 04/18 [] Plan delivery by 39 weeks [] 2 hour gtt 6 weeks History of loop electrosurgical excision procedure (LEEP) of cervix affecting in first trimester 10/04/2022 Plan [x] Routine midtrimester cervical length screening normal History of hemorrhage, currently 10/04/2022 - In G1 had vaginal delivery, EBL 3000 mL with QBL 3350 mL related to uterine atony, treated with Hemabate x2, rectal miso, TXA, freddy, Banjo, Bakri + packing, 2u PRBC. Plan - routine care - Optimize anemia: hemoglobin 12.0 09/2022 -Consider T&C at time of delivery Other specified diseases and conditions complicating 09/30/2022 History of pre-eclampsia in prior , currently in third trimester 09/30/2022 - s/p counseling Blood pressure log reviewed on 03/21/2023 Plan [x] Baseline CBC, CMP,- WNL UPC- 57 [x] Low dose aspirin daily starting at 12 weeks gestation until delivery Supervision of high-risk , third trimester 09/30/2022 [x] Full M Care; [x] Blue Team Referring Provider: Trent Severino (GI) [phone] [] or Medicare Insurance [x] Dating Criteria: [...] indicated) 2nd Tri Labs: [x] Anatomy ultrasound: scheduled for 12/27 [x] CBC: 10.6/32.9/296K repeat 3 hr gtt: 84/183/13/143- GDM- pt aware and supplies sent [x] Flu Shot (Dec-Mar):01/24/2023 [x] Tdap (27-36wks): 02/21/2023 3rd Tri Labs: [] CBC/HIV/RPR/T&S: ordered 04/03/23 [] GBS: [] GC/CT (if indicated): [] testing: [] RSV vaccine after 32wks - plans to get this week. Also counseled on COVID vaccine 04/03 Counseling [] MOD: [] Place of delivery: [] Last clinic visit SVE: [] IOL start agent: [] Epidural: [] Consents signed: [] MOC: Considering vasectomy vs reversible contraception for her. [x] Method of feeding: Breast [x] Rod Finisher: Pb [] PP Depression Discussed: Skin rash 08/31/2021 Obesity in , antepartum 11/16/2020 - BMI: 44 - s/p counseling Plan [x] Specialized anatomy ultrasound [] Serial growth ultrasounds and testing per GDMA2 problem NAFLD (nonalcoholic fatty liver disease) 06/12/2020 Crohn's disease of small intestine with other complication (HCC) 12/01/2018 History - diagnosis: Crohn's disease, in remission since diagnosis in 2019 - current regimen: Entyvio - history of perianal involvement: no - s/p counseling Plan [x] Continue Entyvio and follow-up with Dr. Severino [x] Specialized anatomy [] Serial growth ultrasounds per GDMA2 problem [] Mode of delivery: anticipate vaginal Chronic diarrhea 11/08/2018 Past Medical History: Diagnosis Date Autoimmune disorder (HCC) Crohn's disease (CMS/HCC) (HCC) 2019 Diabetes mellitus (HCC) GDM Hypertension in , [...] Outpatient Medications Medication Sig Dispense Refill acetaminophen 32 mg/mL aspirin 81 mg chewable tablet Chew 1 tablet every day by oral route. diphenhydrAMINE HCL 25 mg tablet,disintegrating Take 25 mg by mouth every 4 (four) hours docusate sodium (COLACE) 100 mg capsule Take 1 capsule (100 mg total) by mouth 2 (two) times a day as needed for constipation 60 capsule 3 ferrous sulfate 325 mg (65 mg of elemental iron) tablet Take 1 tablet (325 mg total) by mouth everyother day 15 tablet 3 insulin glargine (LANTUS) 100 unit/mL (3 mL) pen for injection Inject 10 units under the skin in the morning 15 mL 3 vit no.124/iron/folic ( VITAMIN ORAL) Take by mouth vedolizumab (ENTYVIO) 300 mg recon soln 5 mL (300 mg total) blood glucose diagnostic strip Check glucose fasting and one hour after each meal and as needed, upto 8 times per day 200 each 6 lancets 33 gauge misc CHECK GLUCOSE FASTING AND ONE HOUR AFTER EACH MEAL AND NEEDED, UP TO 8 TIMES PER WEEK 200 each 6 pen needle, diabetic 33 gauge x 5/32 needle 1 INJECTIONS DAILY DIRECTED 100 each 2 No current facility-administered medications for this visit. Review of Systems: Constitutional: Negative. HENT: Negative for sore throat and trouble swallowing. Eyes: Negative. Respiratory: Negative. Cardiovascular: Negative. Gastrointestinal: See HPI Endocrine: Negative. Genitourinary: Negative. Musculoskeletal: Negative. Skin: Negative. Allergic/Immunologic: Negative. Neurological: Negative. Hematological: Negative. Psychiatric/Behavioral: Negative. Breast: Negative. Physical Exam: BP 119/79 (BP Location: Left arm, Patient Position: Sitting) Pulse 99 Temp 36.6 ??C (97.8 ??F) Resp 16 Ht 157.5 cm (5' 2 ) Wt 114.4 kg (252 lb 3.2 oz) LMP 08/01/2022 SpO2 97% BMI 46.13 kg/m?? GENERAL: Well-appearing, in no acute distress. [...] 4 weeks. In remission on colonoscopy 06/2022. Doing quite well. Is35 weeks -continue entyvio -continue to monitor safety labs -no change in current treatment plan -follow up in 3 months High risk medications: As with all [...] this encounter. Follow up: Return in about 3 months (around 07/17/2023). STICAL TILE CARPENTERS SUPERVISOR documented in this encounter Plan of Treatment Not on file documented as of this encounter Visit Diagnoses Diagnosis High risk medications (not anticoagulants) long-term use- Primary Encounter for long-term (current) use of other medications Crohn's disease of small intestine with other complication (HCC) documented in this encounter Care Teams Metalworker Relationship Specialty Start Date End Date Judy Fishman NP [email or web address] [place] [id number] PCP - General 07/31/18 Jessica Martínez MD [email or web address] [place] [address] Consulting Physician Obstetrics and Gynecology 11/16/20 documented as of this encounter
--- OUTSIDE RECORDS SUMMARY | 2024-04-11 06:11 | XMS_ITS | Encounter Summary ---
Author Organization [facility] Address [address] [place] [address] Phone Care Team Providers Care Electric Engine Mechanic Name Role Phone Judy Fishman NP Primary Care Provider + Jessica Martínez MD Unavailable [phone] Reason for Visit * Reason Comments High Risk Gestation Encounter Details Date Type Department Care Team (Late st Contact Info) Description 05/02/2023 11:45 AM CARD CHECKER Office Visit [facility] Maternal- Medicine [address] [facility] 7th Floor [address] [place] [address] Supervision of high-risk , third trimester (Primary Dx); Insulin controlled gestational diabetes mellitus (GDM) in second trimester; Crohn's disease of small intestine with other complication (HCC); History of pre-eclampsia in prior , currently in third trimester Social History Tobacco Use Types Packs/Day Years [...] week 05/31/2021 How often do you attend [facility] or muslim services? 1 to 4 times per year [...] care, and heating? Not hard at all 05/05/2023 Hunger Vital Sign Answer Date Recorded Within the past 12 months, y ou worried that your food would run out before you got the money to buy more. Never true 05/05/19 24 Within the past 12 months, t he food you bought just didn't last and you didn't have money to get more. Never true 05/05/2023 PRAPARE - Transportation Answer Date Re corded In the past 12 months, has l ack of transportation kept you from medical appointments or from getting medications? No 04/15 In the past 12 months, has l ack of transportation kept you from meetings, work, or from getting things needed for daily living? No 05/05/2023 Housing Stability Vital Sign Answer Héctor e Recorded In the last 12 months, was t here a time when you were not able to pay the mortgage or rent on time? No 05/05/2023 Number of Places Lived in the Last Year Not on f ile 05/05/2023 In the last 12 months, was t here a time when you did not have a steady place to sleep or slept in a residential (including now)? No 05/05/2023 Pelican Depression Scale Answer Date Recorded Pelican Depression Scale Total 2 07/10/2021 The thought of harming myself has occurred to me . Never 07/10/2021 Personal Safety Answer Date Recorded Getting School Help Needed Denies 03/25 Comments Yes Sex and Gender Information Value Date Recorded Sex Assigned at Not on file Legal Sex Female 7:54 PM CARD CHECKER Gender Identity Not on file Sexual Orientation Not on file documented as of this encounter Last Filed Vital Signs Vital Sign Reading Time Taken Comments Blood Pressure 136/82 05/02/2023 11:23 AM CARD CHECKER Pulse 75 05/02/2023 11:23 AM CARD CHECKER Temperature - - Respiratory Rate - - Oxygen Saturation 99% 05/02/2023 11:23 AM CARD CHECKER Inhaled Oxygen Concentration - - Weight 113.9 kg (251 lb) 05/02/2023 11:23 AM CARD CHECKER Height 157.5 cm (5' 2 ) 05/02/2023 11:23 AM CARD CHECKER Body Mass Index 45.91 05/02/2023 11:23 AM CARD CHECKER documented in this encounter Progress Notes * Bertin Reilly MD - 05/02/2023 11:45 AM CST MFM Return Visit 05/02/2023 Liliana Mancilla is a 32 y.o. at 37w0d who is here for a return OB visit. Her is complicated by GDMA2, Crohn's disease, obesity, history of delivery, history of LEEP, historyof preeclampsia. Subjective: She reports felling well, denies any vaginal bleeding, contractions, or leakage of fluid. Reports positive movement. States she has been having more lower pelvic pressure and pain with movement. Nothing c/w contractions. BG log reviewed in [employer]. 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 Only two values elevated in the last week. Next Entyvio scheduled in 1 week; however, going to delay until after delivery and having issues with insurance Brief HAs, frontal, tension in nature over the past week that are relieved with tylenol. Normal BPsat home and in clinic Objective: BP 136/82 Pulse 75 Ht 157.5 cm (5' 2 ) Wt 251 lb (113.9 kg) LMP 08/01/2022 SpO2 99% BMI45.91 kg/m?? General: NAD Heart: regular rate Lungs: non-labored respirations Abdomen: Soft, gravid, NT Extremities: WWP, no edema Ultrasound: 05/02/2023 37w0d Vertex presentation. 2. The biophysical profile is 6/8, off for absence of sustained breathing motion. Normal breathing motion, body motion, tone and amniotic fluid volume. NST reactive for 11/21 testing Assessment/Plan: Liliana Mancilla is a 32 y.o. at 37w0d with a complicated by GDMA2, Crohn's disease, obesity, history of delivery, history of LEEP, history of preeclampsia. Problem List Endocrine and Metabolic Gestational diabetes mellitus, with history of GDM Overview - History of GDM in G1 - Early screening with A1C, 5.7 on 10/04/22- follow- up 3hr normal - 3hr OGTT in 2T: 2/ elevated (84, 183, 138, 143) Current regimen: 05/02/2023- encouraged to be more consistent with checking after meal values Lantus 24 units every night Continue an evening walk and high protein snack. Keep food log for breakfast S/p counseling Plan [] Send weekly glucose log through [employer] for review [] Twice weekly NSTs scheduled next Fri/Fri [x] Serial growth ultrasounds, complete [] Plan delivery by 39 weeks - IOL scheduled 2/2 [] 2 hour gtt 6 weeks Relevant Orders RPR Blood HIV 1/2 Antibody plus p24 Antigen Blood Gastrointestinal and Abdominal Crohn's disease of small intestine with other complication (HCC) Overview History - diagnosis: Crohn's disease, in remission since diagnosis in 2019 - current regimen: Entyvio - history of perianal involvement: no - s/p counseling Plan [x] Continue Entyvio and follow-up with Dr. Severino - plan for next infusion following delivery. Last was in March [x] Specialized anatomy [x] Serial growth ultrasounds per GDMA2 problem [x] Mode of delivery: anticipate vaginal Gravid and Supervision of high-risk , third trimester - Primary Overview [x] Full [facility] Care; [x] Blue Team Referring Provider: Trent Severino (GI) [phone] [] [employer] or Medicare Insurance [x] Dating Criteria: LMP [...] (27-36wks): 02/21/2023 3rd [facility]: [] CBC/HIV/RPR/T&S: Hgb 10.7, HIV/RPR to be collected at home [facility] as of 05/02 [x] GBS: neg [x] GC/CT (if indicated): [x] testing: per GDM problem [x] RSV vaccine after 32wks - Also counseled on COVID vaccine 04/03 Counseling [x] MOD: IOL scheduled on 05/16/2023 at 0800- pt letter sent. [x] Place of delivery: [facility] [] Last clinic visit SVE: [] IOL start agent: [] Epidural: [] Consents signed: [x] MOC: partner vasectomy [x] Method of feeding: Breast [x] Liaison Inspection Laboratory Assistant: bP [x] PP Depression Discussed: Relevant Orders RPR Blood HIV 1/2 Antibody plus p24 Antigen Blood History of pre-eclampsia in prior , currently in third trimester Overview - s/p counseling Blood pressure log reviewed on 04/25/2023 - 05/02: BPs normal, mild HAs relived with tylenol Plan [x] Baseline CBC, CMP,- WNL UPC- 57 [x] Low dose aspirin daily starting at 12 weeks gestation until delivery Patient was seen and discussed with Dr. Barry who agrees with the above documented assessment andplan. NSTs next week. For last EOB visit in 1 week. PreE precautions reviewed. Bertin Reilly MD Cosigned by Sharon Barry MD at 05/05/2023 4:14 PM CARD CHECKER CHECKER CHECKER Associated attestation - Sharon Barry MD - 05/05/2023 4:14 PM CARD CHECKER Attending Attestation I have seen, examined, and discussed Liliana Jose Angel Mancilla with Dr. Reilly on 05/05/2023. I agree with thefindings and the plan of care as documented. documented in this encounter Plan of Treatment Not on file documented as of this encounter Procedures Procedure Name Priority Date/Time Associated Diagnosis Comments HIV 1/2 ANTIBODY PLUS P24 ANTIGEN Routine 05/05/2023 9:00 AM CARD CHECKER Supervision of high-risk , third trimester Insulin controlled gestational diabetes mellitus (GDM) in second trimester RPR Routine 05/05/2023 9:00 AM CARD CHECKER Supervision of high-risk , third trimester Insulin controlled gestational diabetes mellitus (GDM) in second trimester documented in this encounter Results * HIV 1/2 Antibody plus p24 Antigen Blood (05/05/2023 9:00 AM CARD CHECKER) HIV Ag/Ab, 4th gen NON-REACT MONSTER NON-REACT MONSTER [facility] Comment: HIV-1 antigen and HIV-1/HIV-2 antibodies were not detected. There is no laboratory evidence of HIV infection. PLEASE NOTE: This information has been disclosed to you from records whose confidentiality may be protected by state law. ??If your state requires such protection, then the state law prohibits you from making any further disclosure of the information without the specific written consent of the person to whom it pertains, or as otherwise permitted by law. A general authorization for the release of medical or other information is NOT sufficient for this purpose. ?? For additional information please refer to http://education.[employer]/faq/RZZ196 (This link is being provided for informational/ educational purposes only.) The performance of this assay has not been clinically validated in patients less than 2 years old. Blood 05/05/2023 9:00 AM CARD CHECKER 05/05/2023 9:01 AM CARD CHECKER Sharon Barry MD LAB MICROBIOLOGY - GENERAL ORDERABLES Final Result Performing Organization Address City/[facility]/ZIP Co de Phone Number [facility] [address] [place] [address] * RPR Blood (05/05/2023 9:00 AM CARD CHECKER) RPR NON-REACTIV E NON-REACTI VE [facility] Blood 05/05/2023 9:00 AM CARD CHECKER 05/05/2023 9:01 AM CARD CHECKER Sharon Barry MD LAB MICROBIOLOGY - GENERAL ORDERABLES Final Result Performing Organization Address [facility] de Phone Number [facility] [address] [facility] [place] [address] documented in this encounter Visit Diagnoses Diagnosis Supervision of high-risk , third trimester- Primary Insulin controlled gestational diabetes mellitus (GDM) in second trimester Crohn's disease of small intestine with other complication (HCC) History of pre-eclampsia in prior , currently in third trimester documented in this encounter Care Teams Electric Engine Mechanic Relationship Specialty Start Date End Date Judy Fishman NP [address] [address] PCP - General 07/31/18 Jessica Martínez MD [address] [address] Consulting Physician Obstetrics and Gynecology 11/16/20 documented as of this encounter
--- OUTSIDE RECORDS SUMMARY | 2024-04-11 06:11 | XMS_ITS | Encounter Summary ---
Author Organization [facility] Address [address] [place] [address] Care Team Providers Care Pet Care Technician Name Role Phone Judy Fishman NP Primary Care Provider + Jessica Martínez MD Unavailable [phone] Reason for Referral * Diagnostic Imaging (Routine) - Closed Specialty Diagnoses / Procedures Referred By Mary roberson Referred To Contact Diagnoses Supervision of high-risk , first trimester History of pre-eclampsia in prior , currently in first trimester History of hemorrhage, currently History of loop electrosurgical excision procedure (LEEP) of cervix affecting in first trimester Insulin controlled gestational diabetes mellitus (GDM) in second trimester Obesity in , antepartum Crohn's disease of small intestine with other complication (HCC) Procedures US Ob Follow Up Erick Nava MD [address] [phone] [place] [address] Phone: tel: fax: [facility] (All Locations) Referral ID Status Reason Start Date Expiration Date Visits Re quested Visits Authorized [id number] Closed 03/21/2023 04/19/2024 1 1 OR PRODUCT INTEGRITY ENGINEER Reason for Visit * Diagnostic Imaging (Routine) - Closed Specialty Diagnoses / Procedures Referred By Mary roberson Referred To Contact Diagnoses Supervision of high-risk , first trimester History of pre-eclampsia in prior , currently in first trimester History of hemorrhage, currently History of loop electrosurgical excision procedure (LEEP) of cervix affecting in first trimester Insulin controlled gestational diabetes mellitus (GDM) in second trimester Obesity in , antepartum Crohn's disease of small intestine with other complication (HCC) Procedures US Ob Follow Up Erick Nava MD [address] [phone] [place] [address] Phone: tel: fax: [facility] (All Locations) Referral ID Status Reason Start Date Expiration Date Visits Re quested Visits Authorized [id number] Closed 03/21/2023 04/19/2024 1 1 Encounter Details Date Type Department Care Team (Latest Contact Info) Description 04/18/2023 10:15 AM SENIOR PRODUCT INTEGRITY ENGINEER - 04/18/2023 11:59 PM SENIOR PRODUCT INTEGRITY ENGINEER Hospital Encounter [facility]ound [address] [facility] 7th [address], [address] [place] [address] Supervision of high-risk , first trimester; History of pre-eclampsia in prior , currently in first trimester; History of hemorrhage, currently ; History of loop electrosurgical excision procedure (LEEP) of cervix affecting in first trimester; Insulin controlled gestational diabetes mellitus (GDM) in second trimester; Obesity in , antepartum; Crohn's disease of small intestine with other complication (HCC) Discharge Disposition: Discharge to home or self [...] 05/31/2021 How often do you attend chur or hoahaoism services? 1 to 4 times per year 05/31/2021 Do you belong to any clubs o r organizations such as latter day groups, unions, fraternal or athletic groups, or [...] slept in a detention (including now)? No 05/31/2021 [place] Depression Scale Answer Date Recorded [place] Depression Scale Total 2 07/10/2021 The thought of harming myself has occurred to me . Never 07/10/2021 Personal Safety Answer Date Recorded Getting School Help Needed Denies 03/25 Comments Yes Sex and Gender Information Value Date Recorded Sex Assigned at Not on file Legal Sex Female 7:54 PM SENIOR PRODUCT INTEGRITY ENGINEER Gender Identity Not on file Sexual Orientation Not on file documented as of this encounter Medications at Time of Discharge acetaminophen 32 mg/mL aspirin 81 mg chewable tablet Chew 1 tablet every day by oral route. blood glucose diagnostic strip Check glucose fasting and one hour after each meal and as needed, up to 8 times per day 200 each 6 02/10/2023 diphenhydrAMINE HCL 25 mg tablet,disintegr ating Take 25 mg by mouth every 4 (four) hours docusate sodium (COLACE) 100 mg capsuleIndicatio ns:constipation Take 1 capsule (100 mg total) by mouth 2 (two) times a day as needed for constipation 60 capsule 3 02/10/2023 ferrous sulfate 325 mg (65 mg of elemental iron) tabletIndication s:Iron Deficiency Anemia Take 1 tablet (325 mg total) by mouth every other day 15 tablet 3 02/10/2023 insulin glargine (LANTUS) 100 unit/mL (3 mL) pen for injection Inject 10 units under the skin in the morning 15 mL 3 02/21/2023 lancets 33 gauge misc CHECK GLUCOSE FASTING AND ONE HOUR AFTER EACH MEAL AND NEEDED, UP TO 8 TIMES PER WEEK 200 each 6 02/10/2023 pen needle, diabetic 33 gauge x 5/32 needle 1 INJECTIONS DAILY DIRECTED 100 each 2 02/21/2023 vit no.124/iron/foli c ( VITAMIN ORAL) Take by mouth vedolizumab (ENTYVIO) 300 mg recon soln 5 mL (300 mg total) documented as of this encounter Discharge Disposition Disposition Code Departure Means Destination Discharge to home or self care documented in this encounter Plan of Treatment Not on file documented as of this encounter Procedures Procedure Name Priority Date/Time Associated Diagnosis Comments US OB FOLLOW UP Schedule Routine, Read Routine (OP Routine) 04/18/2023 10:15 AM SENIOR PRODUCT INTEGRITY ENGINEER Supervision of high-risk , first trimester History of pre-eclampsia in prior , currently in first trimester History of hemorrhage, currently History of loop electrosurgical excision procedure (LEEP) of cervix affecting in first trimester Insulin controlled gestational diabetes mellitus (GDM) in second trimester Obesity in , antepartum Crohn's disease of small intestine with other complication (HCC) documented in this encounter Results * US Ob Follow Up (04/18/2023 10:15 AM SENIOR PRODUCT INTEGRITY ENGINEER) Fetus# Fetus1 VIEWPOINT Estimated Weight 2,746 g&grams VIEWPOINT Placenta Details posterior, Previa-no VIEWPOINT Presentation Vertex VIEWPOINT Anatomical Region Laterality Modality Abdomen N/A Ultrasound 04/18/2023 10:2 4 AM SENIOR PRODUCT INTEGRITY ENGINEER Impressions 04/18/2023 11:36 AM SENIOR PRODUCT INTEGRITY ENGINEER Interval growth has been normal. ??The biophysical profile is 8/8 with normal breathing motion, body motion, tone and amniotic fluid volume. IUP at 35 weeks AGA growth Reassuring BPP Narrative Procedure Note Bernarda York MD - 04/18/2023 IMPRESSION: Interval growth has been normal. The biophysical profile is 8/8with normal breathing motion, body motion, tone and amniotic fluid volume.IUP at 35 weeks AGA growth Reassuring BPP Erick Nava MD IMG OB US PROCEDU RES Final Result documented in this encounter Visit Diagnoses Diagnosis Supervision of high-risk , first trimester History of pre-eclampsia in prior , currently in first trimester History of hemorrhage, currently with other poor obstetric history History of loop electrosurgical excision procedure (LEEP) of cervix affecting in first trimester Insulin controlled gestational diabetes mellitus (GDM) in second trimester Obesity in , antepartum Obesity complicating , childbirth, or the puerperium, antepartum condition or complication Crohn's disease of small intestine with other complication (HCC) documented in this encounter Care Teams Pet Care Technician Relationship Specialty Start Date End Date Judy Fishman NP [address] [place] [id number] PCP - General 07/31/18 Jessica Martínez MD [address] [address] Consulting Physician Obstetrics and Gynecology 11/16/20 documented as of this encounter
--- OUTSIDE RECORDS SUMMARY | 2024-04-11 06:11 | XMS_ITS | Encounter Summary ---
Author Organization [facility] Address [address] [facility] [address] [place] [address] Phone Care Team Providers Care Radio Frequency Technician Name Role Phone Judy Fishman NP Primary Care Provider + Jessica Martínez MD Unavailable [phone] Reason for Referral * Diagnostic Imaging (Routine) - Closed Specialty Diagnoses / Procedures Referred By Contac t Referred To Contact Diagnoses Supervision of high-risk [...] Up Erick Nava MD [address] [facility] [phone] [place] [address] Phone: tel: fax: [facility] (All Locations) Referral ID Status Reason Start Date Expiration Date Visits Re quested Visits Authorized [id number] Closed 03/21/2023 04/19/2024 1 1 ER AISLE CASHIER Reason for Visit * Reason Comments High Risk Gestation Encounter Details Date Type Department Care Team (Latest Contact Info) Description 03/21/2023 11:30 AM CENTER AISLE CASHIER Office Visit [facility] [address] [facility] 7th [address] [place] [address] Supervision of high-risk , first trimester (Primary Dx); Other specified diseases and conditions complicating ; History of pre-eclampsia in prior , currently [...] often do you attend chur ch or quaker services? 1 to 4 times per year 05/31/2021 Do you belong to any clubs o r organizations such as latter-day groups, unions, fraternal or athletic groups, or [...] place to sleep or slept in a custodial (including now)? No 05/31/2021 [place] Depression Scale Answer Date Recorded [place] Depression Scale Total 2 07/10/2021 The thought of harming myself has occurred to me . Never 07/10/2021 Comments Yes Sex and Gender Information Value Date Recorded Sex Assigned at Not on file Legal Sex Female 7:54 PM CENTER AISLE CASHIER Gender Identity Not on file Sexual Orientation Not on file documented as of this encounter Last Filed Vital Signs Vital Sign Reading Time Taken Comments Blood Pressure 120/89 03/21/2023 11:04 AM CENTER AISLE CASHIER Pulse 95 03/21/2023 11:04 AM CENTER AISLE CASHIER Temperature - - Respiratory Rate - - Oxygen Saturation 97% 03/21/2023 11:04 AM CENTER AISLE CASHIER Inhaled Oxygen Concentration - - Weight 111.1 kg (245 lb) 03/21/2023 11:04 AM CENTER AISLE CASHIER Height 157.5 cm (5' 2 ) 03/21/2023 11:04 AM CENTER AISLE CASHIER Body Mass Index 44.81 03/21/2023 11:04 AM CENTER AISLE CASHIER documented in this encounter Progress Notes * Erick Nava MD - 03/21/2023 11:30 AM CST [facility] Return Visit 03/21/2023 Liliana Mancilla is a 32 y.o. at 31w0d who is here for a return OB visit. Her is complicated by GDM with history of GDM, Crohn's disease, obesity, history of delivery, history of LEEP, history of preeclampsia . Subjective: She reports doing well. +FM, neg VB/LOF/ctx Crohns doing well No PreE symptoms Objective: BP 120/89 Pulse 95 Ht 157.5 cm (5' 2 ) Wt 245 lb (111.1 kg) LMP 08/01/2022 SpO2 97% BMI44.81 kg/m?? General: NAD Ultrasound: 03/21/2023 31w0d EFW 68th percentile Assessment/Plan: Liliana Mancilla is a 32 y.o. at 31w0d with a complicated by: Problem List JONNATHAN 05/08/23 Crohn's disease of small intestine with other complication (HCC) Overview History - diagnosis: Crohn's disease, in remission since diagnosis in 2019 - current regimen: Entyvio - history of perianal involvement: no - s/p counseling Plan [x] Continue Entyvio and follow-up with Dr. Severino [x] Specialized anatomy [] Serial growth ultrasounds q4 weeks starting at 24 weeks, next due in 4 weeks [] Mode of delivery: anticipate vaginal Obesity in , antepartum Overview - BMI: 44 - s/p counseling Plan [x] Early A1C- 5.7 on 10/04/22 [x] Specialized anatomy ultrasound [] Serial growth ultrasounds q4 weeks starting at 24 weeks, next due in 4 weeks [] Weekly testing per history of preeclampsia Other specified diseases and conditions complicating History of pre-eclampsia in prior , currently in first trimester Overview - s/p counseling Blood pressure log reviewed on 03/21/2023 Plan [] testing weekly starting at 32 weeks (previous preeclampsia required delivery) [x] Baseline CBC, CMP,- WNL UPC- pending [x] Low dose aspirin daily starting at 12 weeks gestation until delivery Supervision of high-risk , first trimester - Primary Overview [x] Full MFM Care; [x] Blue Team Referring Provider: Trent Severino (JESSICA) [phone] [] or Medicare Insurance [x] Dating Criteria: [...] (27-36wks): 02/21/2023 3rd Tri Labs: [] CBC/HIV/RPR/T&S: [] GBS: [] GC/CT (if indicated): [] testing: [] RSV vaccine after 32wks Counseling [] MOD: [] Place of delivery: [] Last clinic visit SVE: [] IOL start agent: [] Epidural: [] Consents signed: [] MOC: Considering vasectomy vs reversible contraception for her. [x] Method of feeding: Breast [x] Segmental Paving Supervisor: Pb [] PP Depression Discussed: Gestational diabetes mellitus, with history of GDM Overview - History of GDM in G1 - Early screening with A1C, 5.7 on 10/04/22- follow- up 3hr normal - 3hr OGTT in 2T: 2/4 elevated (84, 183, 138, 143) Current regimen: 03/17/2023 Lantus 18 units---> 20 units in the evening Continue an evening walk and high protein snack. Keep food log for breakfast S/p counseling Plan [] Send weekly glucose log through [employer] for review [] Twice weekly testing if medications needed [] Rate of growth ultrasounds [] Plan delivery by 39 weeks [] 2 hour gtt 6 weeks History of loop electrosurgical excision procedure (LEEP) of cervix affecting in first trimester Overview Plan [x] Routine midtrimester cervical length screening normal History of hemorrhage, currently Overview - In G1 had vaginal delivery, EBL 3000 mL with QBL 3350 mL related to uterine atony, treated with Hemabate x2, rectal miso, TXA, freddy, Banjo, Bakri + packing, 2u PRBC. Plan - routine care - Optimize anemia: hemoglobin 12.0 09/2022 -Consider T&C at time of delivery Specialty Infusion Treatment 2 Crohn's disease of small intestine with other complication (HCC) Overview History - diagnosis: Crohn's disease, in remission since diagnosis in 2019 - current regimen: Entyvio - history of perianal involvement: no - s/p counseling Plan [x] Continue Entyvio and follow-up with Dr. Severino [x] Specialized anatomy [] Serial growth ultrasounds q4 weeks starting at 24 weeks, next due in 4 weeks [] Mode of delivery: anticipate vaginal RSV and COVID vaccine planned next week BGVs since lantus increased at goal NST weekly starting next week RV 2wks, 4wks w/US ER AISLE CASHIER documented in this encounter Plan of Treatment Not on file documented as of this encounter Results * US Ob Follow Up (04/18/2023 10:15 AM CENTER AISLE CASHIER) Fetus# Fetus1 VIEWPOINT Estimated Weight 2,746 g&grams VIEWPOINT Placenta Details posterior, Previa-no VIEWPOINT Presentation Vertex VIEWPOINT Anatomical Region Laterality Modality Abdomen N/A Ultrasound 04/18/2023 10:2 4 AM CENTER AISLE CASHIER Impressions 04/18/2023 11:36 AM CENTER AISLE CASHIER Interval growth has been normal. ??The biophysical [...] Diagnoses Diagnosis Supervision of high-risk , first trimester- Primary Other specified diseases and conditions complicating History of pre-eclampsia in prior , currently [...] (HCC) Supervision of high-risk , first trimester History [...] (HCC) documented in this encounter Care Teams Radio Frequency Technician Relationship Specialty Start Date End Date Judy Fishman NP [email or web address] [address] PCP - General 07/31/18 Jessica Martínez MD [email or web address] [address] Consulting Physician Obstetrics and Gynecology 11/16/20 documented as of this encounter
--- OUTSIDE RECORDS SUMMARY | 2024-04-11 06:11 | XMS_ITS | Encounter Summary ---
Author Organization [facility] Address [address] [place] [address] Care Team Providers Care Wheel Lacer And Truer Name Role Phone Judy Fishman DIRECTOR OF FUNDRAISING Primary Care Provider + Jessica Martínez MD Unavailable Encounter Details Date Type Department Care Team (Latest Contact Info) Description 01/24/2023 11:20 AM CDT - 01/24/2023 11:59 PM CDT Hospital Encounter [address] [address] Supervision of high-risk , first trimester Discharge Disposition: Discharge to home or self [...] often do you attend chur ch or voodoo services? 1 to 4 times per year 05/31/2021 Do you belong to any clubs o r organizations such as yarsanism groups, unions, fraternal or athletic groups, or [...] place to sleep or slept in a snf (including now)? No 05/31/2021 [place] Depression Scale Answer Date Recorded [place] Depression Scale Total 2 07/10/2021 The thought of harming myself has occurred to me . Never 07/10/2021 Comments Yes Sex and Gender Information Value Date Recorded Sex Assigned at Not on file Legal Sex Female 7:54 PM JAVA ENGINEER Gender Identity Not on file Sexual Orientation Not on file documented as of this encounter Medications at Time of Discharge acetaminophen 32 mg/mL aspirin 81 mg chewable tablet Chew 1 tablet every day by oral route. diphenhydrAMINE HCL 25 mg tablet,disintegratin g Take 25 mg by mouth every 4 (four) hours vit no.124/iron/folic ( VITAMIN ORAL) Take by mouth vedolizumab (ENTYVIO) 300 mg recon soln 5 mL (300 mg total) [facility] ranitidine () 150 mg tablet TK 1 T PO BID FOR 15 DAYS 3 ondansetron ODT (ZOFRAN-ODT) 8 mg disintegrating tablet DIS 1 T ON THE TONGUE Q 8 H PRN 3 documented as of this encounter Discharge Disposition Disposition Code Departure Means Destination Discharge to home or self care documented in this encounter Plan of Treatment Not on file documented as of this encounter Procedures Procedure Name Priority Date/Time Associated Diagnosis Comments URINE CULTURE Routine 01/24/2023 3:01 PM CDT Supervision of high-risk , first trimester documented in this encounter Results * Urine culture Urine, clean voided (01/24/2023 3:01 PM CDT) Report Final Report: Less than 100,000 colonies/mL (clinically insignificant growth based on current clinical standards) Organism (CLINICALLY INSIGNIFICANT GROWTH [facility] Urine, clean voided 01/24/2023 3:01 PM CDT 01/24/2023 4:34 PM CDT [facility] - 01/25/2023 5:58 PM CDT Testing performed by [facility] ([phone]) us Jane Montalvo MD LAB MICROBIOLOGY - GENERA L ORDERABLES Final Result [facility] Department [place] [address] documented in this encounter Visit Diagnoses Diagnosis Supervision of high-risk , first trimester documented in this encounter Care Teams Wheel Lacer And Truer Relationship Specialty Start Date End Date Judy Fishman NP [address] [address] PCP - General 07/31/18 Jessica Martínez MD [address] [address] Consulting Physician Obstetrics and Gynecology 11/16/20 documented as of this encounter
--- OUTSIDE RECORDS SUMMARY | 2024-04-11 06:11 | XMS_ITS | Encounter Summary ---
Author Organization [facility] Address [address] [place] [address] Phone Care Team Providers Care Registered Nurses Name Role Phone Judy Fishman NP Primary Care Provider + Jessica Martínez MD Unavailable [phone] Reason for Referral * (Routine) - Pending Review Specialty Diagnoses / Procedures Referred By Contac t Referred To Contact Diagnoses Gestational diabetes mellitus (GDM) in third trimester, gestational diabetes method of control unspecified Procedures nonstress test - America Collins MD [facility] [phone] [place] [address] Phone: tel: fax: [facility] (All Locations) Referral ID Status Reason Start Date Expiration Date V isits Requested Visits Authorized [id number] Pending Review 05/09/2023 06/07/2024 1 1 R DELIVERY RN Reason for Visit * Reason Comments Non-stress Test Encounter Details Date Type Department Care Team (Latest Contact Info) Description 05/09/2023 10:00 AM LABOR DELIVERY RN Clinical Support [facility] Obstetrics and Gynecology [facility] 7th [place] [address] Gestational diabetes mellitus (GDM) in third trimester, gestational diabetes method of control unspecified (Primary Dx) Social History Tobacco Use Types [...] often do you attend chur ch or yazidi services? 1 to 4 times per year 05/31/2021 Do you belong to any clubs o r organizations such as taoist groups, unions, fraternal or athletic groups, or [...] place to sleep or slept in a care home (including now)? No 05/05/2023 [place] Depression Scale Answer Date Recorded [place] Depression Scale Total 2 07/10/2021 The thought of harming myself has occurred to me . Never 07/10/2021 Personal Safety Answer Date Recorded Getting School Help Needed Denies 03/25 Comments Yes Sex and Gender Information Value Date Recorded Sex Assigned at Not on file Legal Sex Female 7:54 PM LABOR DELIVERY RN Gender Identity Not on file Sexual Orientation Not on file documented as of this encounter Last Filed Vital Signs Vital Sign Reading Time Taken Comments Blood Pressure 123/81 05/09/2023 9:46 AM LABOR DELIVERY RN Pulse - - Temperature - - Respiratory Rate - - Oxygen Saturation - - Inhaled Oxygen Concentration - - Weight - - Height - - Body Mass Index - - documented in this encounter Plan of Treatment Not on file documented as of this encounter Procedures Procedure Name Priority Date/Time Associated Diagnosis Comments NONSTRESS TEST Routine 05/09/2023 Gestational diabetes mellitus (GDM) in third trimester, gestational diabetes method of control unspecified documented in this encounter Results * nonstress test - (05/09/2023) America Collins MD OB GYNE ORDERABLES Fin al Result documented in this encounter Visit Diagnoses Diagnosis Gestational diabetes mellitus (GDM) in third trimester, gestational diabetes method of control unspecified- Primary documented in this encounter Care Teams Registered Nurses Relationship Specialty Start Date End Date Judy Fishman NP [address] [address] PCP - General 07/31/18 Jessica Martínez MD [address] [address] Consulting Physician Obstetrics and Gynecology 11/16/20 documented as of this encounter
--- OUTSIDE RECORDS SUMMARY | 2024-04-11 06:11 | XMS_ITS | Encounter Summary ---
Author Organization [facility] Address [address] [place] [address] Phone Care Team Providers Care Intravenous Therapy Nurse Name Role Phone Judy Fishman NP Primary Care Provider + Jessica Martínez MD Unavailable [phone] Reason for Referral * (Routine) - Pending Review Specialty Diagnoses / Procedures Referred By Contac t Referred To Contact Diagnoses Insulin controlled gestational diabetes mellitus (GDM) in second trimester Procedures nonstress test - Judy Polanco NP [address] [facility] [phone] [place] [address] Phone: tel: fax: [facility] (All Locations) Referral ID Status Reason Start Date Expiration Date V isits Requested Visits Authorized [id number] Pending Review 05/06/2023 06/04/2024 1 1 D IDENTIFICATION SPECIALIST Reason for Visit * Reason Comments Non-stress Test Encounter Details Date Type Department Care Team (Latest Contact Info) Description 05/06/2023 10:00 AM FIELD IDENTIFICATION SPECIALIST Clinical Support [facility] Obstetrics and Gynecology [address] [facility] 7th [place] [address] Insulin controlled gestational diabetes mellitus (GDM) in [...] any clubs o r organizations such as nondenominational groups, unions, fraternal or athletic groups, or [...] slept in a fpc (including now)? No 05/05/2023 [place] Depression Scale Answer Date Recorded [place] Depression Scale Total 2 07/10/2021 The thought of harming myself has occurred to me . Never 07/10/2021 Personal Safety Answer Date Recorded Getting School Help Needed Denies 03/25 Comments Yes Sex and Gender Information Value Date Recorded Sex Assigned at Not on file Legal Sex Female 7:54 PM FIELD IDENTIFICATION SPECIALIST Gender Identity Not on file Sexual Orientation Not on file documented as of this encounter Plan of Treatment Not on file documented as of this encounter Procedures Procedure Name Priority Date/Time Associated Diagnosis Comments NONSTRESS TEST Routine 05/06/2023 Insulin controlled gestational diabetes mellitus (GDM) in second trimester documented in this encounter Results * nonstress test - (05/06/2023) Judy Polanco SENSORY SCIENTIST OB GYNE ORDERABLES Final Result documented in this encounter Visit Diagnoses Diagnosis Insulin controlled gestational diabetes mellitus (GDM) in second trimester- Primary documented in this encounter Care Teams Intravenous Therapy Nurse Relationship Specialty Start Date End Date Judy Fishman NP [address] [address] PCP - General 07/31/18 Jessica Martínez MD [address] [address] Consulting Physician Obstetrics and Gynecology 11/16/20 documented as of this encounter
--- OUTSIDE RECORDS SUMMARY | 2024-04-11 06:11 | XMS_ITS | Encounter Summary ---
Author Organization [facility] Address [address] [place] [address] Phone Care Team Providers Care [employer] Name Role Phone Judy Fishman NP Primary Care Provider + Jessica Martínez MD Unavailable [phone] Reason for Visit * Reason Onset Date Comments Treatment Plan Update 04/24/2023 04/21/2023 r ov Encounter Details Date Type Department Care Team (Late st Contact Info) Description 04/24/2023 Documentation [facility] Gastroenterology [address] [facility] 12th [place] [address] [place] [address] Abiola Silverman, [place] Treatment Plan Update (04/21/2023 rov) Social History Tobacco Use Types Packs/Day [...] How often do you attend chur or buddhism services? 1 to 4 times per year 05/31/2021 Do you belong to any clubs o r organizations such as mandaeism groups, unions, fraternal or athletic groups, or [...] slept in a mcfp (including now)? No 05/31/2021 [place] Depression Scale Answer Date Recorded [place] Depression Scale Total 2 07/10/2021 The thought of harming myself has occurred to me . Never 07/10/2021 Personal Safety Answer Date Recorded Getting School Help Needed Denies 03/25 Comments Yes Sex and Gender Information Value Date Recorded Sex Assigned at Not on file Legal Sex Female 7:54 PM INSTRUCTOR OF EDUCATION Gender Identity Not on file Sexual Orientation Not on file documented as of this encounter Progress Notes * Abiola Silverman RN - 04/24/2023 9:56 AM CST Plan per Lizz: - pt doing well on q4 entyvio - rov 3 months Per Maycol: - agree 2/ plan RUCTOR OF EDUCATION documented in this encounter Plan of Treatment Not on file documented as of this encounter Visit Diagnoses Not on filedocumented in this encounter Care Teams [employer] Relationship Specialty Start Date End Date Judy Fishman NP [address] [address] PCP - General 07/31/18 Jessica Martínez MD [address] [address] Consulting Physician Obstetrics and Gynecology 11/16/20 documented as of this encounter
--- OUTSIDE RECORDS SUMMARY | 2024-04-11 06:11 | XMS_ITS | Encounter Summary ---
Author Organization [facility] Healthcare Address [address] [place] [address] Care Team Providers Care School Leader Name Role Phone Judy Fishman ELECTRIC MOTOR REPAIRMAN Primary Care Provider + Jessica Martínez MD Unavailable [phone] Encounter Details Date Type Department Care Team (Latest Contact Info) Description 05/05/2023 7:53 PM AIRCRAFT CAPTAIN - 05/05/2023 9:30 PM AIRCRAFT CAPTAIN Hospital Encounter [address] [address] Katie Kendall MD [address] [address] No leakage of amniotic fluid into vagina (Primary Dx) Discharge Disposition: Discharge to home or self [...] week 05/31/2021 How often do you attend [facility] or christian services? 1 to 4 times per year 05/31/2021 Do you belong to any clubs o r organizations such as rastafarian groups, unions, fraternal or athletic groups, or [...] slept in a mcc (including now)? No 05/05/2023 Lena Depression Scale Answer Date Recorded Lena Depression Scale Total 2 07/10/2021 The thought of harming myself has occurred to me . Never 07/10/2021 Personal Safety Answer Date Recorded Getting School Help Needed Denies 03/25 Comments Yes Sex and Gender Information Value Date Recorded Sex Assigned at Not on file Legal Sex Female 7:54 PM AIRCRAFT CAPTAIN Gender Identity Not on file Sexual Orientation Not on file documented as of this encounter Last Filed Vital Signs Vital Sign Reading Time Taken Comments Blood Pressure 128/79 05/05/2023 8:00 PM AIRCRAFT CAPTAIN Pulse 74 05/05/2023 9:15 PM AIRCRAFT CAPTAIN Temperature 36.7 ??C (98 ??F) 05/05/2023 8:00 PM AIRCRAFT CAPTAIN Respiratory Rate 18 05/05/2023 8:00 PM AIRCRAFT CAPTAIN Oxygen Saturation 98% 05/05/2023 9:15 PM AIRCRAFT CAPTAIN Inhaled Oxygen Concentration - - Weight 114.3 kg (252 lb) 05/05/2023 8:00 PM AIRCRAFT CAPTAIN Height 157.5 cm (5' 2 ) 05/05/2023 8:00 PM AIRCRAFT CAPTAIN Body Mass Index 46.09 05/05/2023 8:00 PM AIRCRAFT CAPTAIN documented in this encounter Discharge Instructions * Discharge Instr - Activity* Sarina Betancourt RN - 05/05/2023 9:25 PM AIRCRAFT CAPTAIN As tolerated RAFT CAPTAIN * Discharge Instr - Diet* Sarina Betancourt RN - 05/05/2023 9:25 PM AIRCRAFT CAPTAIN Follow a well balanced diet and drink 8-10 glasses of water a day. RAFT CAPTAIN documented in this encounter Medications at Time of Discharge [...] recon soln 5 mL (300 mg total) docusate sodium (COLACE) 100 mg capsuleIndicatio ns:constipation, Stool Softener Take 1 capsule (100 mg total) by mouth 2 (two) times a day 30 capsule 05/14/2023 4 documented as of this encounter Discharge Disposition Disposition Code Departure Means Destination Discharge to home or self care documented in this encounter H&P Notes * Katie Kendall MD - 05/05/2023 8:30 PM CST Images from the original note were not included. Obstetrics H&P Chief Complaint: LOF Estimated Date of Delivery: 05/23/23 Provider: YOUNG HPI: Lilianajaspreet Mancilla is a 32 y.o. female at 37w3d gestation, dated by 1st trimester ultrasound presents for complaints of LOF that occurred around 1830PM. She denies VB and endorses +FM. Denies any abdominal pain and or contractions. Her is complicated by: gDM, hx PPH, PTD in G1, SIP, hx PreE, obesity, Crohn's disease andhx of LEEP Patient Denies: [x] Contractions [x] Shortness of Breath [x] Nausea/Vomitting [x] Vaginal Bleeding [x] Headache [x] Abdominal Pain [] Leaking of Fluid [x] Visual changes [x] Decreased Movement OB History Para Term AB Living 2 1 0 1 0 1 SAB IAB Ectopic Multiple Live Births 0 0 0 0 1 # Outcome Date GA Lbr Amor/2nd Weight Sex Delivery Anes PTL Lv 2 Current 1 05/29/21 36w5d 3330 g (7 lb 5.5 oz) M Vag-Spont EPI Y SLIME Complications: Pre eclampsia Name: GAYLA MANCILLA Apgar1: 8 Apgar5: 9 SCOUT LEASER History: Patient's last menstrual period was 08/01/2022. History of Abnormal Pap: Yes, Hx LEEP, most recent pap NILM 2021 STD History: none Past Medical History: Diagnosis Date Autoimmune disorder [...] for PO iron on d/c. # CV/Pulm: Chronic hypertension: No Diabetes: GDM Lantus 24U @ bedtime Asthma: No Past Surgical History: Procedure Laterality Date ANKLE FRACTURE SURGERY Right 2009 CERVICAL BIOPSY W/ LOOP ELECTRODE EXCISION CHOLECYSTECTOMY 2018 Social History Tobacco Use Smoking status: Former Packs/day: .5 Types: Cigarettes Quit date: 10/03/2020 Years since quittin.5 Smokeless tobacco: Never Substance and Sexual Activity Drug use: Never Sexual activity: Yes Partners: Male control/protection: None Alcohol Use: Not At Risk (07/04/2022) AUDIT-C Frequency of Alcohol Consumption: Never Average Number of Drinks: Not on file Frequency of Binge Drinking: Not on file Support System: Supported by family Safe at home: Yes family history includes Cancer in her maternal grandfather, maternal grandmother, mother's sister, and paternal grandmother; Crohn's disease in her paternal cousin; Diabetes in her maternal grandfather and mother; Hypertension in her mother; Ulcerative colitis in her paternal cousin. Family history of bleeding or clotting disorders: No Family history of defects, genetic disorders, or developmental delay: No Allergies Allergen Reactions Cefdinir Swelling Clindamycin Swelling Iodine Rash Povidone-Iodine Rash And chlorahexadine Sulfa (Sulfonamide Antibiotics) Swelling Morphine Itching HOME MEDICATIONS : acetaminophen 32 mg/mL aspirin 81 mg chewable tablet blood glucose diagnostic strip diphenhydrAMINE HCL 25 mg tablet,disintegrating docusate sodium (COLACE) 100 mg capsule ferrous sulfate 325 mg (65 mg of elemental iron) tablet insulin glargine (LANTUS) 100 unit/mL (3 mL) pen for injection lancets 33 gauge misc pen needle, diabetic 33 gauge x 5/32 needle vit no.124/iron/folic ( VITAMIN ORAL) vedolizumab (ENTYVIO) 300 mg recon soln Review of Sys: Negative except per HPI Vitals: Temp: [36.7 ??C (98 ??F)] 36.7 ??C (98 ??F) Pulse: [67-87] 79 Resp: [18] 18 BP: (128)/(79) 128/79 BP: 128/79 Physical Exam: General: NAD, mood appropriate Cardiovascular: Regular rate and rhythm Pulmonary: Clear to ausculation bilaterally Abdomen: Gravid, non-tender Extremities: Warm and well perfused Speculum Exam: no pooling of fluid seen, negative valsalva, Nitrizine test is negative, Ferning test is negative, vaginal discharge: small amount of yellow mucus-like discharge, wet prep results: resulted at bedside: no pathogens and pH 3.5 Cervix: 1 /0 /Floating Monitoring: Baseline: 120 bpm, Variability: Moderate, Accelerations: Present and Decelerations: None Uterine Activity: No contractions seen on toco Interpretation: Reactive Ultrasound: Vertex presentation Posterior placenta Previa: No DVP: 4.98cm and LATRICE: 11.66cm Labs: Lab Results Component Value Date ABORH B Positive 10/04/2022 IDCOOMB Negative 10/04/2022 [id number] Nonreactive 10/04/2022 [id number] NON-REACTIVE 05/25/2021 LABRPR Nonreactive 10/04/2022 RUBELIGG Reactive 10/04/2022 HEPBSAG Nonreactive 10/04/2022 GBS neg 05/24/2021 VZVIGG Reactive 10/04/2022 Assessment and Plan: Patient is a 32 year old @ 37w3d who presents for complaints of LOF #R/o SROM -VSS -SSE: small amount of mucus-like yellow discharge noted, valsalva negative, no pooling of fluid seen, ferning negative, nitrizine negative, wet prep: pH: 3.5, no pathogens -Cervix: 1/L/Floating (same SVE as prior visit) -[facility] BSUS: DVP: 4.98cm and LATRICE: 11.66cm -[place]: relaxed (denies pain) -No e/o SROM and or labor. Reviewed s/s SROM/labor and given return precautions #GDMA -POC B -Regimen Lantus 24Units at bedtime #FWB -Reactive FHR Tracing -Endorses +FM -Discussed importance of good movement and kick counts Plan discussed with Dr. Kendall. Okay to d/c home with strict return precautions. Patient reassuredand discharged home in stable condition. NST appt tomorrow 05/06/23 and OB appt 05/09/23 Angela Regalado NP 05/05/23 MFM Fellow Attestation I have seen and discussed Liliana Mancilla with the above provider on 05/06/2023. I have evaluated the patient and reviewed the treatment plan and recommendations. I agree with the findings and the plan of care as documented in the resident???s note with the following addendum: Briefly, this is a 32 y.o. at 37w4d with complicated by gDM, hx PPH, PTD in G1, SIP, hx PreE, obesity, Crohn's disease and hx of LEEP who presented for rule out rupture. No evidence of rupture on exam Katie Kendall MD Maternal- Medicine Fellow Cosigned by Radha Clemente MD at 05/06/2023 4:30 PM AIRCRAFT CAPTAIN RAFT CAPTAIN RAFT CAPTAIN RAFT CAPTAIN Associated attestation - Radha Clemente MD - 05/06/2023 4:30 PM AIRCRAFT CAPTAIN The resident/fellow saw and examined the patient, we discussed their findings, and I am in agreement with the plan based on the discussion with the resident/fellow. I did not personally examine the patient. documented in this encounter Procedure Notes * Angela Regalado NP - 05/05/2023 9:26 PM CST Procedures Patient is a 32 year old @ 37w3d who presents for complaints of LOF Monitoring: Baseline: 120 bpm, Variability: Moderate, Accelerations: Present and Decelerations: None Uterine Activity: No contractions seen on toco Interpretation: Reactive DIEUDONNE Ring- 05/05/23 Cosigned by Jarrett Bustillo MD at 05/05/2023 9:40 PM AIRCRAFT CAPTAIN RAFT CAPTAIN RAFT CAPTAIN Associated attestation - Jarrett Bustillo MD - 05/05/2023 9:40 PM AIRCRAFT CAPTAIN I have reviewed and agree with nurse practioner's interpretation of NST. My interpretation is baseline 120, moderate variability, accels present, no decels. No contractionson monitor. Reactive NST. Jarrett Bustillo MD documented in this encounter Nursing Notes * Sarina Betancourt RN - 05/05/2023 9:33 PM CST Pt presented to the [facility] with complaints of LOF since 1830 today. Pt states she has no pain just tightness in her upper abdomen. NST reassuring, VSS, BS 91, no further complaints. Pt was seen and evaluated by Katie Regalado NP Urine dipstick performed, speculum exam performed, cervical exam was 1/0/-5 Negative for ROM Pt was given discharge paperwork and verbally states understanding. Given parking voucher. Pt was discharged in stable condition. RAFT CAPTAIN RAFT CAPTAIN documented in this encounter Plan of Treatment Not on file documented as of this encounter Procedures Procedure Name Priority Date/Time Associated Diagnosis Comments US OB LIMITED IP Routine 05/05/2023 9:24 PM AIRCRAFT CAPTAIN No leakage of amniotic fluid into vagina POCT URINALYSIS (CLINITEK) Routine 05/05/2023 9:13 PM AIRCRAFT CAPTAIN POCT GLUCOSE DEVICE Routine 05/05/2023 8 :26 PM AIRCRAFT CAPTAIN documented in this encounter Results * US Ob Limited (05/05/2023 9:24 PM AIRCRAFT CAPTAIN) Anatomical Region Laterality Modality Abdomen N/A Ultrasound Study GA Study Date Study JONNATHAN Working JONNATHAN (Source) Feta l Weight (Method) 05/05/2023 05/23/2023 (Ultrasound) Result Name Value Comments Amniotic fld cm Heart Rate bpm CRL cm Sac Diameter cm Addenda Addendum by Edward Zamorano MD on 05/06/2023 8:51 AM AIRCRAFT CAPTAIN Vertex on images Appropriate LATRICE I have reviewed the images and agree with above. Edward Zamorano MD Narrative 05/05/2023 9:[address] [facility] BSUS: Vertex presentation DVP: 4.98cm ?? LATRICE: 11.66cm us Angela L. Fabricio ELECTRIC MOTOR REPAIRMAN IMG OB US PROCEDURES Edited R esult - Final * (ABNORMAL) POCT urinalysis (Clinitek) (05/05/2023 9:13 PM AIRCRAFT CAPTAIN) Color, ur, POC Yellow Yellow [facility] Clarity, UA, POC Clear Clear [facility] Glucose, ur, POC Negative Negative [facility] Bilirubin, ur, POC Negative Negative [facility] Ketones, ur, POC Negative Negative [facility] Specific gravity, ur, POC 1.020 1.010 - 1.025 [facility] Blood, ur, POC Trace(A) Negative [facility] pH, ur, POC 7.0 [facility] Comment: Interpretive Data Urine pH is affected by diet, medications, systemic acid-base disturbances, and renal tubular function. pH may affect urinary stone formation. For example, urine pH below 6.0 may help reduce the tendency for calcium phosphate stones and pH greater than 6.0 may reduce the tendency for uric acid stone formation. Source: [employer]. Last Revised Date: 04-24-2017 Protein, ur, POC Negative Negative [facility] Urobilinogen, ur, POC 0.2 mg/dL mg/dL [facility] Nitrites, ur, POC Negative Negative [facility] Leukocyte esterase, ur, POC 1+(A) Negative [facility] Urine 05/05/2023 9:13 PM AIRCRAFT CAPTAIN 05/05/2023 9:13 PM AIRCRAFT CAPTAIN Katie Kendall MD LAB POCT ORDERABLES - DEVICE Final Result [facility] Department [place] [address] * POCT glucose (05/05/2023 8:26 PM AIRCRAFT CAPTAIN) Glucose, POC 91 70 - 199 mg/dL [facility] Blood 05/05/2023 8:26 PM AIRCRAFT CAPTAIN 05/05/2023 8:26 PM AIRCRAFT CAPTAIN Katie Kendall MD LAB POCT ORDERABLES - DEVICE Final Result [facility] [place] [address] documented in this encounter Visit Diagnoses Diagnosis No leakage of amniotic fluid into vagina- Primary documented in this encounter Orders Discharge Count Last Ordered Date First Orde red Date DISCHARGE PATIENT 1 05/05/2023 documented in this encounter Care Teams School Leader Relationship Specialty Start Date End Date Judy Fishman NP [address] [place] [id number] PCP - General 07/31/18 Jessica Martínez MD [address] [place] [id number] Consulting Physician Obstetrics and Gynecology 11/16/20 documented as of this encounter
--- OUTSIDE RECORDS SUMMARY | 2024-04-11 06:11 | XMS_ITS | Encounter Summary ---
Author Organization [facility] Address [address] [place] [address] Phone Care Team Providers Care Supervisor Drying And Winding Name Role Phone Judy Fishman NP Primary Care Provider + Jessica Martínez MD Unavailable [phone] Encounter Details Date Type Department Care Team (Late st Contact Info) Description 01/31/2023 Telephone [facility] Maternal- Medicine [facility] [address] [facility] [address] [place] [address] Rut Domínguez Social History Tobacco Use Types Packs/Day Years [...] often do you attend chur ch or protestant services? 1 to 4 times per year 05/31/2021 Do you belong to any clubs o r organizations such as mandaen groups, unions, fraternal or athletic groups, or [...] slept in a assisted (including now)? No 05/31/2021 Mellott Depression Scale Answer Date Recorded Mellott Depression Scale Total 2 07/10/2021 The thought of harming myself has occurred to me . Never 07/10/2021 Comments Yes Sex and Gender Information Value Date Recorded Sex Assigned at Not on file Legal Sex Female 7:54 PM DROSSER Gender Identity Not on file Sexual Orientation Not on file documented as of this encounter Miscellaneous Notes * Telephone Encounter - Rut Domínguez - 01/31/2023 8:49 AM CDT Pt called to report that she had two episodes of bright red bleeding last night. Both happened while she was having a bowel movement. Pt confirmed that the blood was definitely from her vagina. She reports that the first time was just a small amount of blood on the toilet paper when she wiped. The second time it was enough to drip into the toilet bowl. The bleeding has now stopped. She denies anypain, cramping. No leaking of fluid. Good movement. Advised pt that I recommend she present to the [facility] for assessment of bleeding in . She is aware of location. documented in this encounter Plan of Treatment Not on file documented as of this encounter Visit Diagnoses Not on filedocumented in this encounter Care Teams Supervisor Drying And Winding Relationship Specialty Start Date End Date Judy Fishman NP [address] [id number] PCP - General 07/31/18 Jessica Martínez MD [address] [phone] Consulting Physician Obstetrics and Gynecology 11/16/20 documented as of this encounter
--- OUTSIDE RECORDS SUMMARY | 2024-04-11 06:11 | XMS_ITS | Encounter Summary ---
Author Organization [facility] Address [address] [place] [address] Phone Care Team Providers Care Mate Chief Name Role Phone Judy Fishman NP Primary Care Provider + Jessica Martínez MD Unavailable [phone] Reason for Referral * (Routine) - Pending Review Specialty Diagnoses / Procedures Referred By Contac t Referred To Contact Diagnoses Gestational diabetes mellitus (GDM) in third trimester, gestational diabetes method of control unspecified Procedures nonstress test - Judy Polanco NP [address] [facility] [id number] [place] [address] Phone: tel: fax: [facility] (All Locations) Referral ID Status Reason Start Date Expiration Date V isits Requested Visits Authorized [id number] Pending Review 04/10/2023 05/09/2024 1 1 CH CONSULTANT Reason for Visit * Reason Comments Non-stress Test Encounter Details Date Type Department Care Team (Latest Contact Info) Description 04/10/2023 10:30 AM SEARCH CONSULTANT Clinical Support [facility] Obstetrics and Gynecology [address] [facility] [address] [place] [address] Gestational diabetes mellitus (GDM) in third trimester, [...] often do you attend chur ch or evangelical services? 1 to 4 times per year 05/31/2021 Do you belong to any clubs o r organizations such as adventist groups, unions, fraternal or athletic groups, or [...] slept in a half-way (including now)? No 05/31/2021 Rulo Depression Scale Answer Date Recorded Rulo Depression Scale Total 2 07/10/2021 The thought of harming myself has occurred to me . Never 07/10/2021 Personal Safety Answer Date Recorded Getting School Help Needed Denies 03/25 Comments Yes Sex and Gender Information Value Date Recorded Sex Assigned at Not on file Legal Sex Female 7:54 PM SEARCH CONSULTANT Gender Identity Not on file Sexual Orientation Not on file documented as of this encounter Last Filed Vital Signs Vital Sign Reading Time Taken Comments Blood Pressure 98/68 04/10/2023 10:29 AM SEARCH CONSULTANT Pulse - - Temperature - - Respiratory Rate - - Oxygen Saturation - - Inhaled Oxygen Concentration - - Weight - - Height - - Body Mass Index - - documented in this encounter Plan of Treatment Not on file documented as of this encounter Procedures Procedure Name Priority Date/Time Associated Diagnosis Comments NONSTRESS TEST Routine 04/10/2023 11:39 AM SEARCH CONSULTANT Gestational diabetes mellitus (GDM) in third trimester, gestational diabetes method of control unspecified documented in this encounter Results * nonstress test - (04/10/2023 11:39 AM SEARCH CONSULTANT) Judy Polanco PONDMAN OB GYNE ORDERABLES Final Result documented in this encounter Visit Diagnoses Diagnosis Gestational diabetes mellitus (GDM) in third trimester, gestational diabetes method of control unspecified- Primary documented in this encounter Care Teams Mate Chief Relationship Specialty Start Date End Date Judy Fishman NP [address] [address] PCP - General 07/31/18 Jessica Martínez MD [address] [address] Consulting Physician Obstetrics and Gynecology 11/16/20 documented as of this encounter
--- OUTSIDE RECORDS SUMMARY | 2024-04-11 06:11 | XMS_ITS | Encounter Summary ---
Author Organization [facility] Healthcare Address [address] [place] [address] Care Team Providers Care Microsoft Windows Engineer Name Role Phone Judy Fishman WINDOWS APPLICATION PACKAGER Primary Care Provider + Jessica Martínez MD Unavailable [phone] Reason for Visit * Auth/Cert Specialty Diagnoses / Procedures Referred By Mary t Referred To Contact Diagnoses Encounter for induction of labor Procedures n/a Referral ID Status Reason Start Date Expiration Date Visits Re quested Visits Authorized [id number] 1 1 Encounter Details Date Type Department Care Team (Late st Contact Info) Description 05/12/2023 10:55 PM ACCOUNTS PAYABLE PROFESSIONAL Anesthesia Event [address] [address] Vladimir Puga MD PhD [address] [place] [address] Lisa Ruiz MD [address] [place] [address] Anesthesia Record Procedure Summary Procedure Name Responsible Anesthesiologist Anesthesia Start Time Anesthesia Stop Time Labor Analgesia Vladimir Puga MD PhD 05/12/23 55 05/13/23 0633 Events Date Time Event Comment 05/12/2023 2255 An Start 2255 Time out - Regional 2255 Face Time 2300 An Block Induction The patie nt was reevaluated immediately before moderate or deep sedation and before anesthesia induction. 2300 Quick Note Patient with al lergy to chlorhexidine and Povidine/Iodine. Previous epidural skin test with povidine/iodine prior to prep w/o reaction. Similarly, skin test with povidine/iodine on hand no reaction after 10 minutes 2305 Epidural Placed 05/13/2023 0324 0633 An Stop Baby Delivery: 05/13/2023 6:23 AM Placenta Delivery: 05/13/2023 6:28 AM Meds Name Total fentaNYL-BUPivacaine preserv ative free in 0.9% sodium chloride 2 mcg/mL- 0.1 % cassette (premix) 10 mL fentaNYL-BUPivacaine preserv ative free in 0.9% sodium chloride 2 mcg/mL- 0.1 % cassette (premix) 74.17 mL * Agents No agents on file. * Blood No blood administrations on file. Lines, Drains, and Airways Type Details Placement Removal Peripheral IV Placement Date: 05/12/23; Placement Time: 153; Catheter Size: 20 G; Orientation: Left, Posterior; Location: Hand; Site Prep: Chlorhexidine; Inserted by: Tony Ewing RN; Insertion Attempts: 1; Patient Tolerance: Tolerated well; Removal Date: 05/14/23; Removal Time: 1049; Removal Reason: Per protocol 05/12/23 1538 by Iram Ewing RN 05/14/23 1049 by Lizz Sánchez RN Epidural Placement Date: 05/12/23; Placement Time: 2327 (created via procedure documentation); 05/13/23 (Not present on shift); (Not present on shift) 05/12/23 2328 by Lisa Ruiz MD 05/13/23 0000 by Luis Casillas RN Urethral Catheter Placement Date: 05/13/23; Placement Time: 002; Inserted by: Ximena VENCES; Removal Date: 05/13/23; Removal Time: 0700 (removed before this RN came on shift.) 05/13/23 0029 by Ximena Goode RN 05/13/23 0700 by Jing Najera RN documented in this encounter Social History Tobacco Use Types Packs/Day Years [...] often do you attend chur ch or restorationist services? 1 to 4 times [...] place to sleep or slept in a chcf (including now)? No 05/14/2023 [place] Depression Scale Answer Date Recorded [place] Depression Scale Total 2 07/10/2021 The thought of harming myself has occurred to me . Never 07/10/2021 Personal Safety Answer Date Recorded Have you ever been in or are you currently in a harmful physical or emotional relationship or is someone making you feel afraid or unsafe? Denies 05/12/2023 Comments Yes Sex and Gender Information Value Date Recorded Sex Assigned at Not on file Legal Sex Female 7:54 PM ACCOUNTS PAYABLE PROFESSIONAL Gender Identity Not on file Sexual Orientation Not on file documented as of this encounter OR Notes * Anesthesia Postprocedure Evaluation - Symone Mosqueda DO - 05/14/2023 8:02 AM CST Patient: Liliana Mancilla Procedure Summary Date: 05/12/23 Room / Location: Anesthesia Start: 2254 Anesthesia Stop: 05/13/23632 Procedure: Labor Analgesia Diagnosis: Scheduled Providers: Responsible Provider: Vladimir Puga MD PhD Anesthesia Type: epidural ASA Status: 3 Anesthesia Type: epidural Last vitals BP 116/69 Pulse 81 Temp 36.6 ??C (97.9 ??F) (Oral) Resp 16 SpO2 99% Anesthesia Post Evaluation Patient location during evaluation: floor Patient participation: complete - patient participated Level of consciousness: fully awake Pain score: 2 Pain management: adequate Airway patency: adequate Cardiovascular status: acceptable and hemodynamically stable Respiratory status: acceptable and room air Hydration status: euvolemic Pt is: normothermic Nausea/Vomiting status: none Comments: Patient denies headache, fevers, chills, rigors, nausea/vomiting, tingling/weakness/numbness, excessive pain/edema/drainage/erythema at needle puncture site. Patient taking PO, ambulating, urinating without Buenrostro catheter. Puncture site examined - no appreciable induration, erythema, swelling, drainage. Patient counseled on signs/symptoms of epidural abscess/hematoma and post dural puncture headache. Patient advised to seek immediate medical attention should she appreciate any of these. Patient voices understanding. No notable events documented. Cosigned by Lincoln Vuong MD at 05/15/2023 12:43 PM ACCOUNTS PAYABLE PROFESSIONAL UNTS PAYABLE PROFESSIONAL UNTS PAYABLE PROFESSIONAL * Anesthesia Procedure Notes - Lisa Ruiz MD - 05/12/2023 11:26 PM ACCOUNTS PAYABLE PROFESSIONAL Associated Order(s): Epidural Block Epidural Block Patient location: L&D Reason for block: labor analgesia Staff: Placed by: Anesthesiologist: Vladimir Puga MD PhD Procedure prep: Preprocedure checklist: patient identified, procedure contraindications assessed, procedure consentobtained, IV checked, risks, benefits and alternatives discussed and timeout performed Patient Position: sitting Procedure performed while patient: awake Monitoring: oximetry and blood pressure Prep solution: chlorhexadine/alcohol PPE: provider hat/mask, sterile gloves and sterile drape Skin infiltrated with lidocaine 1%: yes Epidural: Approach: midline Imaging guidance used: ultrasound and no Location: L4-5 Number of attempts:2 Epidural needle: Injection technique: GREGORIA saline Needle type: Tuohy Needle gauge: 17 G Needle length: 9 cm Loss of resistance: 7 cm Catheter: Catheter type: multi-orifice. Catheter at skin depth: 12 cm Negative aspiration of blood: no Negative aspiration of CSF: no Test dose: negative Assessment: Sensory level - left: full eval pending Sensory level - right: full eval pending Events: patient tolerated procedure well with no complications Cosigned by Vladimir Puga MD PhD at 05/13/2023 3:27 AM ACCOUNTS PAYABLE PROFESSIONAL UNTS PAYABLE PROFESSIONAL UNTS PAYABLE PROFESSIONAL UNTS PAYABLE PROFESSIONAL * Anesthesia Preprocedure Evaluation - Vladimir Puga MD PhD - 05/12/2023 5:35 PM CST Images from the original note were not included. Anesthesia Evaluation Liliana Mancilla is a 32 y.o. female * No procedures listed * * No Diagnosis Codes entered * HISTORY HPI 32 y.o. female at 38w3d with decreased movement, elevated BPs for extended monitoringand possible induction. Hx: complicated by GDMA2, gHTN, hx PPH, PTD in G1, hx PreE, obesity, Crohn's disease and hx of LEEP Past Medical History Information obtained from: patient. Neurological Neuro/Psych system: negative Cardiovascular + Hypertension (GHTN) Respiratory Respiratory system: negative Hepatic / Heme Hepatic/Heme system: negative Gastrointestinal GI system: negative Renal / Renal/ system: negative Musculoskeletal/Pain + Headaches Endocrine / Other + Diabetes mellitus (Gestational) Outpatient insulin use: current. + Obesity (BMI >30)- morbid obesity (BMI>40). Functional Capacity Functional capacity: 4-6 METs Day of Surgery assessments + Possibility of assessed - known to be . Review of Systems Pertinent negatives: bleeding problems and numbness/tingling Patient Active Problem List Diagnosis Date Noted Decreased movements in third trimester 05/12/2023 Gestational diabetes mellitus, with history of GDM 10/04/2022 History of loop electrosurgical excision procedure (LEEP) of cervix affecting in first trimester 10/04/2022 History of hemorrhage, currently 10/04/2022 Other specified diseases and conditions complicating 09/30/2022 History of pre-eclampsia in prior , currently in third trimester 09/30/2022 Supervision of high-risk , third trimester 09/30/2022 Skin rash 08/31/2021 Obesity in , antepartum 11/16/2020 NAFLD (nonalcoholic fatty liver disease) 06/12/2020 Crohn's disease of small intestine with other complication (HCC) 12/01/2018 Chronic diarrhea 11/08/2018 Past Medical History: Diagnosis [...] for PO iron on d/c. # CV/Pulm: Past Surgical History: Procedure Laterality Date ANKLE FRACTURE SURGERY Right 2009 CERVICAL BIOPSY W/ LOOP ELECTRODE EXCISION CHOLECYSTECTOMY 2018 OB History 2 Para 1 Term 1 AB Living 1 SAB IAB Ectopic Multiple 0 Live Births 1 Allergies Allergen Reactions Cefdinir Swelling Clindamycin Swelling Iodine Rash Povidone-Iodine Rash And chlorahexadine Sulfa (Sulfonamide Antibiotics) Swelling Morphine Itching Med List Status: Nurse Complete Set By: Iram Ewing RN at 05/12/2023 3:14 PM Taking? Last Dose Start Date End Date Provider acetaminophen 32 mg/mL -- -- -- Alejandro Tolentino MD aspirin 81 mg chewable tablet -- -- -- Alejandro Tolentino MD blood glucose diagnostic strip -- 02/10/23 -- Jane Montalvo MD Check glucose fasting and one hour after each meal and as needed, up to 8 times per day Notes: MAY SUBSTITUTE PER INSURANCE NEEDS diphenhydrAMINE HCL 25 mg tablet,disintegrating -- -- -- Alejandro Tolentino MD docusate sodium (COLACE) 100 mg capsule () -- 02/10/23 05/02/23 Jane Montalvo MD Take 1 capsule (100 mg total) by mouth 2 (two) times a day as needed for constipation ferrous sulfate 325 mg (65 mg of elemental iron) tablet -- 02/10/23 -- Jane Montalvo MD Take 1 tablet (325 mg total) by mouth every other day insulin glargine (LANTUS) 100 unit/mL (3 mL) pen for injection -- 02/21/23 -- Radha Clemente MD Inject 10 units under the skin in the morning lancets 33 gauge misc -- 02/10/23 -- Jane Montalvo MD CHECK GLUCOSE FASTING AND ONE HOUR AFTER EACH MEAL AND NEEDED, UP TO 8 TIMES PER WEEK Notes: MAY SUBSTITUTE PER INSURANCE NEEDS pen needle, diabetic 33 gauge x 5/32 needle -- 02/21/23 -- Radha Clemente MD 1 INJECTIONS DAILY DIRECTED Notes: MAY SUBSTITUTE PER INSURANCE NEEDS vit no.124/iron/folic ( VITAMIN ORAL) -- -- -- Alejandro Tolentino MD vedolizumab (ENTYVIO) 300 mg recon soln -- -- -- ProviderAlejandro MD Current Facility-Administered Medications: carboprost (HEMABATE) injection 250 mcg, 250 mcg, intramuscular, Once PRN Carrier Fluids for Secondary Infusion - 0.9% Sodium Chloride, 30 mL, intravenous, PRN dextrose gel in packet 15 g, 15 g, oral, Q15 Min PRN OR dextrose (D10W) 10% bolus 250 mL, 250 mL, intravenous, Q15 Min PRN glucagon injection 1 mg, 1 mg, intramuscular, Q30 Min PRN insulin regular in 0.9% sodium chloride (MYXREDLIN) 100 unit/100 mL (1 unit/mL) infusion (premix), 0-18 Units/hr, intravenous, Titrated Lactated Ringer's (LR) bolus 1,000 mL, 1,000 mL, intravenous, TID PRN Lactated Ringer's (LR) bolus 1,000 mL, 1,000 mL, intravenous, Once PRN lidocaine PF (XYLOCAINE) 10 mg/mL (1 %) preservative free injection 100 mg, 10 mL, infiltration, Once PRN loperamide (IMODIUM) capsule 2 mg, 2 mg, oral, Once PRN methylergonovine (METHERGINE) injection 0.2 mg, 0.2 mg, intramuscular, Once PRN miSOPROStoL (CYTOTEC) tablet 800 mcg, 800 mcg, rectal, Once PRN ondansetron ODT (ZOFRAN-ODT) disintegrating tablet 4 mg, 4 mg, oral, Q6H PRN OR ondansetron (ZOFRAN) injection 4 mg, 4 mg, intravenous, Q6H PRN oxytocin (PITOCIN) injection 10 Units, 10 Units, intramuscular, Once PRN sodium chloride 0.9% flush 0.5-20 mL, 0.5-20 mL, intra-catheter, Q8H PEARL sodium chloride 0.9% flush 0.5-20 mL, 0.5-20 mL, intra-catheter, PRN sodium chloride 0.9% infusion, 30 mL/hr, intravenous, Continuous terbutaline (BRETHINE) injection 0.125 mg, 0.125 mg, intravenous, Once PRN OR terbutaline (BRETHINE) injection 0.25 mg, 0.25 mg, subcutaneous, Once PRN tranexamic acid (CYKLOKAPRON) 1,000 mg/100 mL (10 mg/mL) in sodium chloride (premix) 1,000 mg, 1,000 mg, intravenous, Once PRN Social History Tobacco Use Smoking Status Former Packs/day: .5 Types: Cigarettes Quit date: 10/03/2020 Years since quittin.6 Smokeless Tobacco Never Alcohol Use: Not At Risk (07/04/2022) AUDIT-C Frequency of Alcohol Consumption: Never Average Number of Drinks: Not on file Frequency of Binge Drinking: Not on file Substance and Sexual Activity Drug Use Never Family History Problem Relation Age of Onset Diabetes Mother Hypertension Mother Cancer Mother's Sister Cancer Maternal Grandmother Cancer Maternal Grandfather Diabetes Maternal Grandfather Cancer Paternal Grandmother Ulcerative colitis Paternal cousin Crohn's disease Paternal cousin Vitals: 05/12/23 1517 05/12/23 1522 05/12/23 1625 BP: 126/74 151/80 Comment: Abelardo GREGORY notified Pulse: 79 73 81 Resp: 16 Temp: 36.7 ??C (98 ??F) SpO2: 97% 98% 99% PT: No results found for requested labs within last 30 days. INR: No results found for requested labs within last 30 days. APTT: No results found for requested labs within last 30 days. Hgb A1C: No results found for requested labs within last 30 days. CBC RBC: 05/12/2023: 3.97 M/cumm RDW: No results found for requested labs within last 30 days. MCHC: 05/12/2023: 33.8 g/dL MCH: 05/12/2023: 27.0 pg (L) MCV: 05/12/2023: 79.8 fL (L) Hct: 05/12/2023: 31.7 % (L) Hgb: 05/12/2023: 10.7 g/dL (L) WBC: 05/12/2023: 12.4 K/cumm (H) MPV: 05/12/2023: 11.1 fL Platelets: 05/12/2023: 234 K/cumm RDW CV: 05/12/2023: 14.2 % RDW Sd: 05/12/2023: 41.0 fL BMP Glucose: 05/12/2023: 102 mg/dL Calcium: 05/12/2023: 9.3 mg/dL Sodium: 05/12/2023: 139 mmol/L Potassium: 05/12/2023: 3.6 mmol/L CO2: 05/12/2023: 23 mmol/L Chloride: 05/12/2023: 107 mmol/L BUN: 05/12/2023: 7 mg/dL Creatinine: 05/12/2023: 0.49 mg/dL (L) DOS Physical Exam Medical history, medications, and allergies reviewed. Attestation: This PAT evaluation 05/12/2023. Airway Exam: Mallampati: II Cervical ROM: FROM TM distance: 3.5 EENT Exam: trachea midline Dental Exam: Appears intact Current state: Patient's current state is cooperative and interactive. Anesthesia Plan ASA 3 My patient is approved for the Anesthesia Controlled Medication protocol when under care of a STONEWORK TRACER Planned anesthesia: Epidural Informed Consent: Discussed plan with resident. Anesthesia plan and risks discussed with patient and spouse. Plan and Consent Comments: Discussed risks, benefits, alternatives to neuraxial anesthesia, including but not limited to PDPH,risk of prolonged or permanent numbness/weakness/paralysis, nausea, aspiration, bleeding, infection, possible need to convert to GETA. Pt voiced understanding and acceptance of risks and a desire to proceed with labor neuraxial anesthesia. Consent and Attending signature: I and/or my designee have discussed the anesthesia plan, benefits, possible alternatives, parental presence at time of induction (if indicated), and clinically relevant risks that may include dental injury, unintentional awareness, and/or other complications. The patient and/or parent/legal guardian understand, and agree to proceed. All questions answered. UNTS PAYABLE PROFESSIONAL UNTS PAYABLE PROFESSIONAL UNTS PAYABLE PROFESSIONAL UNTS PAYABLE PROFESSIONAL documented in this encounter Plan of Treatment Not on file documented as of this encounter Procedures Procedure Name Priority Date/Time Associated Diagnosis Comments ID AN PROCEDURE PLACEHOLDER Routine 05/12/2023 11:26 PM ACCOUNTS PAYABLE PROFESSIONAL documented in this encounter Results * ID AN PROCEDURE PLACEHOLDER (05/12/2023 11:26 PM ACCOUNTS PAYABLE PROFESSIONAL) Narrative Vladimir Puga MD PhD - 05/12/2023 11:26 PM ACCOUNTS PAYABLE PROFESSIONAL Lisa Ruiz MD ? 05/12/2023 11:28 PM Epidural Block Patient location: L&D Reason for block: labor analgesia Staff: Placed by: Anesthesiologist: Vladimir Puga MD PhD Procedure prep: Preprocedure checklist: patient identified, procedure contraindications assessed, procedure consent obtained, IV checked, risks, benefits and alternatives discussed and timeout performed Patient Position: sitting Procedure performed while patient: awake Monitoring: oximetry and blood pressure Prep solution: chlorhexadine/alcohol PPE: provider hat/mask, sterile gloves and sterile drape Skin infiltrated with lidocaine 1%: yes Epidural: Approach: midline Imaging guidance used: ultrasound ??and no Location: L4-5 Number of attempts:2 Epidural needle: Injection technique: GREGORIA saline Needle type: Tuohy Needle gauge: 17 G Needle length: 9 cm Loss of resistance: 7 cm Catheter: Catheter type: multi-orifice. Catheter at skin depth: 12 cm Negative aspiration of blood: no Negative aspiration of CSF: no Test dose: negative Assessment: Sensory level - left: full eval pending Sensory level - right: full eval pending Events: patient tolerated procedure well with no complications Vladimir Puga MD PhD ANESTHESIA ORDERABLES E dited Result - Final documented in this encounter Visit Diagnoses Not on filedocumented in this encounter Administered Medications Inactive Administered Medications - up to 3 most recent administrations Medication Order MAR Action Action Date Dose Rate Site fentaNYL-BUPivacaine preservative free in 0.9% sodium chloride 2 mcg/mL- 0.1 % cassette (premix) Continuous Rate: 10 mL/hr, Patient Bolus Dose: other, Patient Bolus Dose (mL): 6, Lockout Interval: 15 Minutes, epidural, Continuous, Starting on Fri05/13/23 at 0000, Until Fri05/13/23 at 0705, 100 mL, Indications: Pain, Stop epidural infusion after placental delivery and any indicated repair is complete., RoutineIndications:Pain New Bag 05/12/2023 11:08 PM ACCOUNTS PAYABLE PROFESSIONAL 10 mL/hr 10 mL/hr fentaNYL-BUPivacaine preservative free in 0.9% sodium chloride 2 mcg/mL- 0.1 % cassette (premix) epidural, As needed, Starting on Fri05/12/23 at 2308, Until Fri05/13/23 at 0638, Routine New Bag 05/12/2023 11:08 PM ACCOUNTS PAYABLE PROFESSIONAL 10 mL documented in this encounter Orders Medications Ordered That Jonathan ht Not Have Been Administered Count Last Ordered Date First Ordered Date fentaNYL-BUPivacaine preserv ative free in 0.9% sodium chloride 2 mcg/mL- 0.1 % cassette (premix) 1 05/12/2023 documented in this encounter Care Teams Microsoft Windows Engineer Relationship Specialty Start Date End Date Judy Fishman NP [address] [id number] PCP - General 07/31/18 Jessica Martínez MD [address] [address] Consulting Physician Obstetrics and Gynecology 11/16/20 documented as of this encounter
--- OUTSIDE RECORDS SUMMARY | 2024-04-11 06:11 | XMS_ITS | Encounter Summary ---
Author Organization [facility] Address [address] [place] [address] Phone Care Team Providers Care Certified Tumor Registrar Name Role Phone Judy Fishman NP Primary Care Provider + Jessica Martínez MD Unavailable [phone] Reason for Referral * Diagnostic Imaging (Routine) - Closed Specialty Diagnoses / Procedures Referred By Contac t Referred To Contact Diagnoses Supervision of high-risk , third trimester Insulin controlled gestational diabetes mellitus (GDM) in second trimester Procedures US Biophysical Profile WO Test Sharon Barry MD [address] [facility] [id number] [place] [address] Phone: tel: fax: [facility] (All Locations) Referral ID Status Reason Start Date Expiration Date Visits Re quested Visits Authorized [id number] Closed 05/02/2023 05/31/2024 1 1 ISTRY TECHNICIAN Encounter Details Date Type Department Care Team (Late st Contact Info) Description 05/02/2023 Orders Only [facility] 7th Floor [address] [place] [address] Pauline Campos RN Supervision of high-risk , third trimester (Primary Dx); Insulin controlled gestational diabetes mellitus (GDM) in second trimester Social History Tobacco Use Types Packs/Day [...] often do you attend chur ch or tenriism services? 1 to 4 times per year [...] place to sleep or slept in a long term (including now)? No 05/31/2021 [place]good Depression Scale Answer Date Recorded [place]good Depression Scale Total 2 07/10/2021 The thought of harming myself has occurred to me . Never 07/10/2021 Personal Safety Answer Date Recorded Getting School Help Needed Denies 03/25 Comments Yes Sex and Gender Information Value Date Recorded Sex Assigned at Not on file Legal Sex Female 7:54 PM CHEMISTRY TECHNICIAN Gender Identity Not on file Sexual Orientation Not on file documented as of this encounter Plan of Treatment Not on file documented as of this encounter Results * US Biophysical Profile WO Test (05/02/2023 10:44 AM CHEMISTRY TECHNICIAN) Fetus# Fetus1 VIEWPOINT Placenta Details posterior, Previa-no VIEWPOINT Presentation Vertex VIEWPOINT Anatomical Region Laterality Modality N/A Ultrasound 05/02/2023 10:4 5 AM CHEMISTRY TECHNICIAN Impressions 05/02/2023 11:37 AM CHEMISTRY TECHNICIAN Turner IUP at 37w0d.1. Vertex presentation. 2. The biophysical profile is 6/8, off for absence of sustained breathing motion. Normal breathing motion, body motion, tone and amniotic fluid volume. Narrative Procedure Note Jane Montalvo MD - 05/02/2023 IMPRESSION: Turner IUP at 37w0d.1. Vertex presentation. 2. The biophysicalprofile is 6/8, off for absence of sustained breathing motion.Normal breathing motion, body motion, tone and amniotic fluid volume. us Sharon Barry MD IMG OB US PROCEDU RES Final Result documented in this encounter Visit Diagnoses Diagnosis Supervision of high-risk , third trimester- Primary Insulin controlled gestational diabetes mellitus (GDM) in second trimester Supervision of high-risk , third trimester Insulin controlled gestational diabetes mellitus (GDM) in second trimester documented in this encounter Care Teams Certified Tumor Registrar Relationship Specialty Start Date End Date Judy Fishman NP [address] [address] PCP - General 07/31/18 Jessica Martínez MD [address] [address] Consulting Physician Obstetrics and Gynecology 11/16/20 documented as of this encounter
--- OUTSIDE RECORDS SUMMARY | 2024-04-11 06:11 | XMS_ITS | Encounter Summary ---
Author Organization [facility] Healthcare Address [address] [place] [address] Care Team Providers Care Special Needs Babysitter Name Role Phone Judy Fishman RESIDENT CARE AIDE Primary Care Provider + Jessica Martínez MD Unavailable [phone] Reason for Referral * Diagnostic Imaging (Routine) - Closed Specialty Diagnoses / Procedures Referred By Mary roberson Referred To Contact Diagnoses Crohn's disease of small intestine with other complication (HCC) Supervision of high-risk , first trimester NAFLD (nonalcoholic fatty liver disease) Procedures US Ob Follow Up Radha Clemente MD [address] [place] [id number] Phone: tel: fax: [facility] (All Locations) Referral ID Status Reason Start Date Expiration Date Visits Re quested Visits Authorized [id number] Closed 02/21/2023 03/22/2024 1 1 ET OR RUG LAYER HELPER Reason for Visit * Diagnostic Imaging (Routine) - Closed Specialty Diagnoses / Procedures Referred By Mary roberosn Referred To Contact Diagnoses Crohn's disease of small intestine with other complication (HCC) Supervision of high-risk , first trimester NAFLD (nonalcoholic fatty liver disease) Procedures [place] [address] [place] [id number] Phone: tel: fax: [facility] (All Locations) Referral ID Status Reason Start Date Expiration Date Visits Re quested Visits Authorized [id number] Closed 02/21/2023 03/22/2024 1 1 Encounter Details Date Type Department Care Team (Latest Contact Info) Description 03/21/2023 10:28 AM CARPET OR RUG LAYER HELPER - 03/21/2023 11:59 PM CARPET OR RUG LAYER HELPER Hospital Encounter [facility] [address], [address], [address] [place] [address] Crohn's disease of small intestine with other complication (HCC); Supervision of high-risk , first trimester; NAFLD (nonalcoholic fatty liver disease) Discharge Disposition: Discharge to home or self [...] often do you attend chur ch or adventist services? 1 to 4 times per year 05/31/2021 Do you belong to any clubs o r organizations such as presybeterian groups, unions, fraternal or athletic groups, or [...] place to sleep or slept in a halfway (including now)? No 05/31/2021 [place] Depression Scale Answer Date Recorded [place] Depression Scale Total 2 07/10/2021 The thought of harming myself has occurred to me . Never 07/10/2021 Comments Yes Sex and Gender Information Value Date Recorded Sex Assigned at Not on file Legal Sex Female 7:54 PM CARPET OR RUG LAYER HELPER Gender Identity Not on file Sexual Orientation [...] UP Schedule Routine, Read Routine (OP Routine) 03/21/2023 10:28 AM CARPET OR RUG LAYER HELPER Crohn's disease of small intestine with other complication (HCC) Supervision of high-risk , first trimester NAFLD (nonalcoholic fatty liver disease) documented in this encounter Results * US Ob Follow Up (03/21/2023 10:28 AM CARPET OR RUG LAYER HELPER) Fetus# Fetus1 VIEWPOINT Estimated Weight 1,858 g&grams VIEWPOINT Placenta Details posterior, Previa-no VIEWPOINT Presentation Vertex VIEWPOINT Anatomical Region Laterality Modality Abdomen N/A Ultrasound 03/21/2023 10:2 8 AM CARPET OR RUG LAYER HELPER Impressions 03/21/2023 4:16 PM CARPET OR RUG LAYER HELPER 31 week IUP - AGA growth pattern, EFW 68th%. Vertex presentation. Normal LATRICE. Narrative Procedure Note Mary Ellen Hopkins MD - 03/21/2023 IMPRESSION: 31 week IUP - AGA growth pattern, EFW 68th%. Vertex presentation. NormalAFI. us Radha Clemente MD IMG OB US PROCEDURES Final Result documented in this encounter Visit Diagnoses Diagnosis Crohn's disease of small intestine with other complication (HCC) Supervision of high-risk , first trimester NAFLD (nonalcoholic fatty liver disease) documented in this encounter Care Teams Special Needs Babysitter Relationship Specialty Start Date End Date Judy Fishman NP [address] [address] PCP - General 07/31/18 Jessica Martínez MD [address] [id number] Consulting Physician Obstetrics and Gynecology 11/16/20 documented as of this encounter
--- OUTSIDE RECORDS SUMMARY | 2024-04-11 06:11 | XMS_ITS | Encounter Summary ---
Author Organization [facility] Address [address] [place] [address] Care Team Providers Care Authorization Specialist Name Role Phone Judy Fishman NP Primary Care Provider + Jessica Martínez MD Unavailable [phone] Reason for Referral * Diagnostic Imaging (Routine) - Closed Specialty Diagnoses / Procedures Referred By Mary roberson Referred To Contact Diagnoses Supervision of high-risk , first trimester History of gestational diabetes in prior , currently Crohn's disease of small intestine with other complication (HCC) History of pre-eclampsia in prior , currently in first trimester Procedures US Ob Follow Up Jane Montalvo MD [address] [place] [address] Phone: tel: fax: [facility] (All Locations) Referral ID Status Reason Start Date Expiration Date Visits Re quested Visits Authorized [id number] Closed 01/24/2023 02/23/2024 1 1 SEWER HAND Reason for Visit * Diagnostic Imaging (Routine) - Closed Specialty Diagnoses / Procedures Referred By Mary roberson Referred To Contact Diagnoses Supervision of high-risk , first trimester History of gestational diabetes in prior , currently Crohn's disease of small intestine with other complication (HCC) History of pre-eclampsia in prior , currently in first trimester Procedures US Ob Follow Up Jane Montalvo MD [address] [place] [address] Phone: tel: fax: [facility] (All Locations) Referral ID Status Reason Start Date Expiration Date Visits Re quested Visits Authorized [id number] Closed 01/24/2023 02/23/2024 1 1 Encounter Details Date Type Department Care Team (Latest Contact Info) Description 02/21/2023 10:17 AM SOLE SEWER HAND - 02/21/2023 11:59 PM SOLE SEWER HAND Hospital Encounter [facility] [address] [facility], [address], [address] [place] [address] Supervision of high-risk , first trimester; History of gestational diabetes in prior , currently ; Crohn's disease of small intestine with other complication (HCC); History of pre-eclampsia in prior , currently in first trimester Discharge Disposition: Discharge to home [...] often do you attend chur ch or muslim services? 1 to 4 times [...] place to sleep or slept in a skilled nursing (including now)? No 05/31/2021 [place] Depression Scale Answer Date Recorded [place] Depression Scale Total 2 07/10/2021 The thought of harming myself has occurred to me . Never 07/10/2021 Comments Yes Sex and Gender Information Value Date Recorded Sex Assigned at Not on file Legal Sex Female 7:54 PM SOLE SEWER HAND Gender Identity Not on file Sexual Orientation [...] UP Schedule Routine, Read Routine (OP Routine) 02/21/2023 10:17 AM SOLE SEWER HAND Supervision of high-risk , first trimester History of gestational diabetes in prior , currently Crohn's disease of small intestine with other complication (HCC) History of pre-eclampsia in prior , currently in first trimester documented in this encounter Results * US Ob Follow Up (02/21/2023 10:17 AM SOLE SEWER HAND) Fetus# Fetus1 VIEWPOINT Estimated Weight 1,051 g&grams VIEWPOINT Placenta Details posterior, Previa-no VIEWPOINT Presentation Breech VIEWPOINT Anatomical Region Laterality Modality Abdomen N/A Ultrasound 02/21/2023 10:1 8 AM SOLE SEWER HAND Impressions 02/21/2023 10:49 AM SOLE SEWER HAND Interval growth has been normal.IUP at 27 weeksAGA growth pattern Narrative Procedure Note Bernarda York MD - 02/21/2023 IMPRESSION: Interval growth has been normal.IUP at 27 weeksAGA growth pattern us Jane Montalvo MD IMG OB US PROCEDURES Cee l Result documented in this encounter Visit Diagnoses Diagnosis Supervision of high-risk , first trimester History of gestational diabetes in prior , currently with other poor obstetric history Crohn's disease of small intestine with other complication (HCC) History of pre-eclampsia in prior , currently in first trimester documented in this encounter Care Teams Authorization Specialist Relationship Specialty Start Date End Date Judy Fishman NP [address] [place] [phone] PCP - General 07/31/18 Jessica Martínez MD [address] [place] [id number] Consulting Physician Obstetrics and Gynecology 11/16/20 documented as of this encounter
--- OUTSIDE RECORDS SUMMARY | 2024-04-11 06:11 | XMS_ITS | Encounter Summary ---
Author Organization [facility] Healthcare Address [address] [place] [address] Care Team Providers Care Software Developer Manager Name Role Phone Judy Fishman ORDER ENTRY Primary Care Provider + Jessica Martínez MD Unavailable [phone] Reason for Visit * Reason Comments Contractions Decreased Movement * Auth/Cert Specialty Diagnoses / Procedures Referred By Contac t Referred To Contact Diagnoses Encounter for induction of labor Procedures n/a Referral ID Status Reason Start Date Expiration Date Visits Re quested Visits Authorized [id number] 1 1 Encounter Details Date Type Department Care Team (Latest Contact Info) Description 05/12/2023 2:18 PM 3D ANIMATOR - 05/14/2023 4:43 PM 3D ANIMATOR Hospital Encounter [address] [id number] Shanti Chavarria MD [address] [address] Magi Gonzalez MD [address] [address] Supervision of high-risk , third trimester (Primary Dx) Discharge Disposition: Discharge to home [...] any clubs o r organizations such as worship groups, unions, fraternal or athletic groups, or [...] slept in a custodial (including now)? No 05/14/2023 [place] Depression Scale Answer Date Recorded [place] Depression Scale Total 2 07/10/2021 The thought [...] on file Legal Sex Female 7:54 PM 3D ANIMATOR Gender Identity Not on file Sexual Orientation Not on file documented as of this encounter Last Filed Vital Signs Vital Sign Reading Time Taken Comments Blood Pressure 116/69 05/14/2023 7:00 AM 3D ANIMATOR Pulse 81 05/14/2023 7:00 AM 3D ANIMATOR Temperature 36.6 ??C (97.9 ??F) 05/14/2023 7:00 AM CS T Respiratory Rate 16 05/14/2023 7:00 AM 3D ANIMATOR Oxygen Saturation 99% 05/14/2023 7:00 AM 3D ANIMATOR Inhaled Oxygen Concentration - - Weight 115 kg (253 lb 8 oz) 05/12/2023 2:[address] Height 157.5 cm (5' 2 ) 05/12/2023 2:50 PM 3D ANIMATOR Body Mass Index 46.37 05/12/2023 2:50 PM 3D ANIMATOR documented in this encounter Discharge Summaries * Kimber Zhou MD - 05/14/2023 12:43 PM CST Inpatient Discharge Summary Admitting Provider: Magi Gonzalez MD Discharge Provider: Magi Gonzalez MD Admission Date: 05/12/2023 Discharge Date: 05/14/2023 Primary Discharge Diagnosis: Vaginal Delivery Secondary Discharge Diagnosis: Active Problems: Decreased movements in third trimester care following vaginal delivery Resolved Problems: No resolved hospital problems. Operative Procedures Performed: Other Treatments: Magnesium sulfate therapy: No Blood transfusion: No Hospital Course: Liliana Velasco is a 32 y.o. female at 38w4d weeks gestation, dated by 1st trimester ultrasound with Estimated Date of Delivery: 05/23/23. Her was notable for GDMA2, gHTN, hx PPH, PTDin G1, hx PreE, obesity, Crohn's disease and hx of LEEP. Vertex presentation and GBS negative confirmed on admission. She presented with decreased movement, newly elevated BPs, and was admittedfor induction of labor . She was diagnosed with gHTN. Her induction was started with misoprostol and was continued with oxytocin and artificial rupture of membranes. She had an epidural placed for anesthesia. She progressed to complete and delivered a viable female with apgars 8 and 9 at oneand five minutes of life respectively. Delivery was uncomplicated. See L&D delivery note for full details. The patient was transferred to . Her course was uncomplicated. Prior to discharge, her pain was well controlled, she was voiding, passing gas, ambulating, and meeting all post milestones. The patient was consented and registered for remote blood pressure monitoring. A blood pressure cuff has been given to the patient. She has confirmed receipt of test message. Her AVS was updated withdischarge instructions on use of the remote blood pressure monitoring system. She will follow up with her primary OB team ([facility]). Symptoms of preeclampsia have been reviewed. #Mother/Baby: Patient has chosen to breastfeed her and has chosen partner vasectomy for contraception. Discharge Details Physical Exam at Discharge: Discharge Condition: Stable Pulse: 81 Resp: 16 BP: 116/69 Temp: 36.6 ??C (97.9 ??F) Weight: 253 lb 8 oz (115 kg) See full physical exam from progress note on day of discharge. Hct Date Value Ref Range Status 05/12/2023 31.7 (L) 35.6 - 45.5 % Final Discharge Disposition: Discharge to home or self care Code Status at Discharge: Full Discharge Instructions: Discharge Medications: Your medication list START taking these medications ibuprofen 600 mg tablet 600 mg, oral, Every 6 hours scheduled Commonly known as: ADVIL,MOTRIN lidocaine 4 % adhesive patch,medicated 2 patches, transdermal, Every 24 hours Commonly known as: ASPERCREME polyethylene glycol 17 gram/dose bulk powder 17 g, oral, Daily Commonly known as: MIRALAX CHANGE how you take these medications acetaminophen 325 mg tablet 650 mg, oral, Every 6 hours PRN Commonly known as: TYLENOL What changed: You were already taking a medication with the same name, and this prescription was added. Make sure you understand how and when to take each. acetaminophen 32 mg/mL No dose, route, or frequency recorded. Commonly known as: TYLENOL What changed: Another medication with the same name was added. Make sure you understand how and when to take each. docusate sodium 100 mg capsule 100 mg, oral, 2 times daily PRN Commonly known as: COLACE What changed: Another medication with the same name was added. Make sure you understand how and when to take each. docusate sodium 100 mg capsule 100 mg, oral, 2 times daily Commonly known as: COLACE What changed: You were already taking a medication with the same name, and this prescription was added. Make sure you understand how and when to take each. CONTINUE taking these medications aspirin 81 mg chewable tablet Chew 1 tablet every day by oral route. blood glucose diagnostic strip Check glucose fasting and one hour after each meal and as needed, up to 8 times per day Doctor's comments: MAY SUBSTITUTE PER INSURANCE NEEDS diphenhydrAMINE HCL 25 mg tablet,disintegrating 25 mg, oral, Every 4 hours ferrous sulfate 325 mg (65 mg of elemental iron) tablet 325 mg, oral, Every other day lancets 33 gauge misc CHECK GLUCOSE FASTING AND ONE HOUR AFTER EACH MEAL AND NEEDED, UP TO 8 TIMES PER WEEK Doctor's comments: MAY SUBSTITUTE PER INSURANCE NEEDS LANTUS 100 unit/mL (3 mL) pen for injection Inject 10 units under the skin in the morning Generic drug: insulin glargine pen needle, diabetic 33 gauge x 5/32 needle 1 INJECTIONS DAILY DIRECTED Doctor's comments: MAY SUBSTITUTE PER INSURANCE NEEDS VITAMIN ORAL oral vedolizumab 300 mg recon soln 300 mg Commonly known as: ENTYVIO Outpatient Follow-Up: 4-6 Weeks Cosigned by Therese Leslie MD at 05/14/2023 2:19 PM 3D ANIMATOR 3D ANIMATOR 3D ANIMATOR documented in this encounter Discharge Instructions * Discharge Instructions* Anabell Prieto NP - 05/13/2023 10:56 AM 3D ANIMATOR Images from the original note were not included. Discharge Instructions - Vaginal Delivery In order to minimize social contact during COVID19 precautions, your visit maybe over the phone. Please remember to wash your hands frequently, do not touch your face, and avoid anyone with feversor cough. Stay at home as much as possible and practice social distancing. COVID19 Precautions: * Wash your hands frequently * Do not touch your face * Avoid anyone with fevers or cough * DO NOT come to clinic or the hospital with mild cold or flu-like symptoms, first call our OB communication center at [phone]. * If you have SEVERE illness including persistent shortness of breath, high fever not responsive totylenol, or nausea and vomiting preventing you from adequately orally hydrating, then call your doctor or go to the ER. Call Your Doctor If: * You have a fever of 100.4 degrees or higher. * You have vaginal bleeding more than your normal menstrual period. * You are passing large blood clots (larger than an egg). * You have a strong foul odor coming from your vagina. * You have burning, pain or difficulty urinating. * You have pain or swelling in your vagina or vulva that gets worse or does not get better. * You have nausea, vomiting or increased abdominal pain. * You have redness or pain in your calves, legs or inner thighs. * You have red, swollen painful breasts. * You have other questions or concerns * You have a headache, difficulty breathing, pain in your upper abdomen, or changes in your vision. * You have decreased urine output. * Your level of consciousness changes. * If you have a blood pressure cuff at home, check your blood pressure once a day and write it down. Call your doctor if your blood pressure is greater than 160 (top number) or 110 (bottom number). Diet: * Follow your regular diet. * Maintain liquid intake of 8 -10 glasses per day. * For constipation - drink prune juice or take stool softener medication ordered by your doctor. Eat foods with fiber (examples - raisins, prunes, washed raw vegetables, whole wheat bread, and bran). Activity: * Do not put anything in your vagina for 6 weeks. NO douching, tampons or sexual intercourse. * Weakness and fatigue are common. * Limit activities and visitors and increase as energy levels return. Rest as often as possible. * No driving while taking narcotics. * If you are not , milk will come in between the 3rd and 4th day . Wear tight support bra and use ice packs to relieve breast discomfort. Care Instructions: * You may shower and shampoo hair as desired. * You may take a tub bath 2 weeks after delivery. * For perineal discomfort sit in warm shallow water for 15-20 minutes. Do this 3-4 times a day. Anystitches you have will dissolve in about 2 weeks. Continue to use sana bottle for the next 5-7 days. Contraception: PARTNER VASECTOMY Vasectomy is successful in more than 99 percent of men. A second method of control is necessary until testing is done to confirm that there are no sperm in the semen. The sperm count is checked, usually three months after the procedure, to ensure that no sperm remain in the ejaculate. A man needs to have ejaculated at least 20 times after vasectomy to clear the ducts of sperm before the follow-up sperm count. A sperm count requires that the man give a semen sample. A man who continues to have sperm in the ejaculate requires a second sperm count, usually performed two months later. If the follow-up check shows sperm that do not move, there is a small chance that a partner may become pre gnant. Another method of contraception should be continued until clearance is given by the doctor. Feeding: : Follow unrestricted . Feed your baby based on baby's hunger cues (or atleast 8-12 feedings per 24 hours). Do NOT supplement unless instructed by Senior Data Quality Analyst. Call your Senior Data Quality Analyst if your baby has poor eating habits (examples: feedings decrease, no feedings in 6 hours, or infant spits up more than ?? of their feeding for 2 consecutive feedings). Once your baby is 5-6 days old, you should expect at least 5 wet diapers and 3 soiled diapers per day. Formula Feeding: Feed your baby based on baby's hunger cues. Your baby will eat about every three to four hours during the day. Babies usually eat on demand (when they wake up at night). Your baby will take1-3 ounces at each feeding, and this will increase as the baby grows. Formula contains all the water and nutrition your baby needs. Do NOT supplement (water, juice, cereal) unless instructed byPediatrician. Call your Senior Data Quality Analyst if your baby has poor eating habits (examples: feedings decrease, no feedings in 6 hours, or infant spits up more than ?? of their feeding for 2 consecutive feedings). Once your baby is 5-6 days old you should expect at least 5 wet diapers and 3 soiled diapers per day. Outpatient Follow Up: Every patient needs a visit. We are currently scheduling some in person and some telemedicine visits for your visits. We are trying to keep you safe and minimize social contact due to COVID19 precautions. If you do not hear from your primary OB to set up your telephone or in person visit, please call your primary OB to set up a telephone or in person visit. Thank you for understanding and remember to wash your hands and avoid anyone with fevers or cough. Stay at home as much as possible and practice social distancing. If you yourself develop fever >100.4F, a new cough, or shortness of breath please call our centralized OB communication center at [phone]. Do not come to the hospital or clinic until you speak with a provider. Contact Information for your primary OB: [facility]) - [facility] - [address] [place], [place] [id number] to schedule an appointment to be seen within 2 and 6 weeks. Future Appointments Date Time Provider Department Center 05/14/2023 8:30 AM OB ROOM [address] [place] [address] 07/31/2023 2:30 PM Lizz Clark NP [facility] Blood Pressure Monitoring: If you are enrolled in home blood pressure monitoring please text your blood pressures when prompted upon hospital discharge. How to use a home blood pressure monitor: Be still. Don't smoke, drink caffeinated beverages or exercise within 30 minutes before measuring your blood pressure. Sit for at least 5 minutes before taking your blood pressure. Sit correctly. Sit with your back straight and supported (on a dining chair, rather than a sofa). Your feet should be flat on the floor and your legs should not be crossed. Your arm should be supported on a flat surface (such as a table) with the upper arm at heart level. Make sure the middle of the cuff is placed directly above the bend of the elbow. Check your monitor's instructions for an illustration or have your healthcare provider show you how. If at ANY time you have symptoms of chest pain, shortness of breath, vision changes, numbness/weakness, difficulty speaking, headache, or if something just doesn't feel right, call our OB communication center at [phone]. High blood pressure problems during & after Preeclampsia or induced hypertension is a high blood pressure disease that can happen in and shortly after delivery (up to 6 weeks after having your baby). Most women will developblood pressure problems towards the end of their , but others will have it for the first time after their delivery. High blood pressure can be dangerous and needs to be monitored closely. Blood pressures can get so high that it can put you at risk for brain injury, stroke, and seizures. Preeclampsia can also hurt your kidneys and liver or cause buildup of fluid in your lungs. If it is very severe and not treatedpreeclampsia can cause . Preeclampsia affects 8-10 out of 100 women and although we don???t know exactly what causes it we do know that some women are at higher risk: - First - If you are under 18 years old or over 40 years old - If you have diabetes, kidney problems, or Lupus - If you are obese - If you have had preeclampsia before - If you had high blood pressure before - If you are with twins or triplets The best way to treat preeclampsia is to have the baby and most of the time your blood pressure will return to normal after delivery, but some people still have high blood pressure after the baby is born. Some people need medication when leaving the hospital to help keep you blood pressure in a normal range. You may only need to take medication for a short time after the baby is born others need it for longer periods of time. It is very important that you get this prescription filled and take the medicine as instructed in order to help control your blood pressure. If you have preeclampsia or another hypertensive disorder of after you go home from the hospital, you should call the doctor if you experience: terminal makeup operator risks of preeclampsia If you had preeclampsia or high blood pressure in you have a higher chance of having highblood pressure sometime later in life. It can also increase your chance of heart disease, heart attack, or stroke in future . May women who get preeclampsia will not have it again in the future but women with preeclampsia have a higher chance of getting it again compared to women who did not have it. If you had a baby before 34 weeks because of preeclampsia, you have the highest chance of getting it again. It is very important you see a primary care doctor for regular checkups to have your blood pressurechecked. Discharge Medications: Take the following medications. Your medication list CONTINUE taking these medications lancets 33 gauge misc CHECK GLUCOSE FASTING AND ONE HOUR AFTER EACH MEAL AND NEEDED, UP TO 8 TIMES PER WEEK Doctor's comments: MAY SUBSTITUTE PER INSURANCE NEEDS pen needle, diabetic 33 gauge x 5/32 needle 1 INJECTIONS DAILY DIRECTED Doctor's comments: MAY SUBSTITUTE PER INSURANCE NEEDS ASK your doctor about these medications acetaminophen 32 mg/mL No dose, route, or frequency recorded. Commonly known as: TYLENOL aspirin 81 mg chewable tablet Chew 1 tablet every day by oral route. blood glucose diagnostic strip Check glucose fasting and one hour after each meal and as needed, up to 8 times per day Doctor's comments: MAY SUBSTITUTE PER INSURANCE NEEDS diphenhydrAMINE HCL 25 mg tablet,disintegrating 25 mg, oral, Every 4 hours docusate sodium 100 mg capsule 100 mg, oral, 2 times daily PRN Commonly known as: COLACE ferrous sulfate 325 mg (65 mg of elemental iron) tablet 325 mg, oral, Every other day LANTUS 100 unit/mL (3 mL) pen for injection Inject 10 units under the skin in the morning Generic drug: insulin glargine VITAMIN ORAL oral vedolizumab 300 mg recon soln 300 mg Commonly known as: ENTYVIO 3D ANIMATOR documented in this encounter Medications at Time [...] 05/14/2023 4 documented as of this encounter Ordered Prescriptions Prescription Sig Dispense Quantity Refills Last Filled Start Date End Date polyethylene glycol (MIRALAX) 17 gram/dose bulk powderIndications: constipation Take 17 g by mouth daily 510 g 05/14/2023 lidocaine (ASPERCREME) 4 % adhesive patch,medicated Place 2 patches on the skin daily 15 patch 05/14/2023 ibuprofen (ADVIL,MOTRIN) 600 mg tabletIndications: Cramps Take 1 tablet (600 mg total) by mouth every 6 (six) hours 30 tablet 05/14/2023 acetaminophen (TYLENOL) 325 mg tablet Take 2 tablets (650 mg total) by mouth every 6 (six) hours as needed for pain 30 tablet 05/14/2023 docusate sodium (COLACE) 100 mg capsuleIndications :constipation,Stoo l Softener Take 1 capsule (100 mg total) by mouth 2 (two) times a day 30 capsule 05/14/2023 4 documented in this encounter Discharge Disposition Disposition Code Departure Means Destination Discharge to home or self care documented in this encounter Progress Notes * Arcelia Kerr MD - 05/14/2023 6:45 AM CST Post Progress Note Delivery Date/Time: 05/13/2023 at 6:23 AM Delivery method: Vaginal [[id number]] Subjective Flatus: Yes Pain: Well controlled Diet: Tolerating regular diet. Ambulating independently Voiding spontaneously Lochia equal to menses Having low back pain near epidural site. Only using APAP/ibu at this time. Scheduled Medications docusate sodium, 100 mg, oral, BID enoxaparin, 40 mg, subcutaneous, Q12H PEARL ibuprofen, 600 mg, oral, Q6H PEARL viatmin, 1 tablet, oral, Daily polyethylene glycol, 17 g, oral, Daily PRN Medications acetaminophen benzocaine-menthoL calcium carbonate hydrocortisone ithnryd-whfzh-dniypbt ondansetron ODT OR ondansetron varicella zoster Vitals: Temp: [36.6 ??C (97.9 ??F)-36.8 ??C (98.2 ??F)] 36.6 ??C (97.9 ??F) Pulse: [63-88] 79 BP: (113-135)/(55-64) 113/64 Resp: [16-20] 18 SpO2: [92 %-100 %] 99 % Intake/Output Summary (Last 24 hours) at 05/14/2023 0645 Last data filed at 05/13/2023 0900 Gross per 24 hour Intake 1241.42 ml Output 432 ml Net 809.42 ml Physical Exam General: No acute distress. Cardiovascular: Regular rate and rhythm. Lungs: Non-labored. Abdomen: Soft, non-distended, non-tender to palpation. Fundus below umbilicus. Extremities: Warm and well-perfused. Neuro: Globally intact Recent Labs Lab Units 05/14/23 0516 05/13/23 0516 05/13/23 0304 05/12/23 1854 05/12/23 1645 05/12/23 1628 05/12/23 1541 WBC K/cumm -- -- -- -- -- -- 12.4* HEMOGLOBIN g/dL -- -- -- -- -- -- 10.7* HEMATOCRIT % -- -- -- -- -- -- 31.7* PLATELETS K/cumm -- -- -- -- -- -- 234 CREATININE mg/dL -- -- -- -- -- -- 0.49* AST Units/L -- -- -- -- -- -- 15 ALT Units/L -- -- -- -- -- -- 10 PROTEIN/CREAT RATIO mg/g CR -- -- -- -- 216.2* -- -- GLUCOSE mg/dL -- -- -- -- -- -- 106 POC GLUCOSE MONITOR mg/dL 83 99 101 < > -- < > -- < > = values in this interval not displayed. Assessment and Plan 32 y.o. PPD#1from . Problem Care Following Vaginal Delivery # ID: Afebrile. No signs/symptoms of infection. [...] 2019 with no perianal involvement. Current regimen: Cathi Kerr MD 05/14/23 R4 Attestation I agree with the above documentation. PPD1 from with preg c/b gHTN (well controlled on no meds), GDMA2 (PPD1 fasting BG wnl), Crohn's (stable on entyvio). Cont PP care. Marian Tao MD PGY-4 Cosigned by Therese Leslie MD at 05/14/2023 9:56 AM 3D ANIMATOR 3D ANIMATOR 3D ANIMATOR 3D ANIMATOR 3D ANIMATOR Associated attestation - Therese Leslie MD - 05/14/2023 9:56 AM 3D ANIMATOR I have seen and examined the patient on 05/14/23. I agree with the findings and plan of care as documented in the resident's/fellow's note. BG this morning 83, does not require additional insulin. Therese Leslie MD * Qi Watkins MD - 05/12/2023 6:47 PM CST Labor Update Note Subjective: Patient is comfortable Objective: BP 125/69 Pulse 84 Temp 36.7 ??C (98 ??F) (Oral) Resp 16 Ht 157.5 cm (5' 2 ) Wt 253 lb 8oz (115 kg) LMP 08/01/2022 SpO2 98% BMI 46.37 kg/m?? SVE: 1 /0 /Ballotable Monitoring: Baseline: 110 bpm Variability: Moderate Accelerations: Present Decelerations: None Uterine Activity: Irregular contractions Assessment and Plan: 32 y.o. at 38w3d - M1 placed @ 1900 - Category I tracing - Vitals notable for mild range elevated blood pressures during admission and concern for gHTN c/b: #hx of preeclampisa, concern for gHTN: Pt reports two MR BPs while checking at home. MR x1 on admission to [facility]. On ASA 81 mg. Denies WHITE, vision changes, RUQ pain. CMP, CBC, UPC pending. #GDMA2: On lantus 24u nightly. For insulin OB [...] trimester. Routine midtrimester cervical length screening normal. Arcelia Kerr MD PGY1 05/12/2023 Addendum I evaluated the patient at the start of my shift at ~1830. Plan to proceed with IOL given decreasedfetal movement, I/s/o newly elevated BP with concern for gHTN and GDMA2. Qi Watkins MD 3D ANIMATOR 3D ANIMATOR documented in this encounter H&P Notes * Magi Gonzalez MD - 05/12/2023 3:02 PM CST Obstetrics H&P Chief Complaint: dFM, VB, ctx Estimated Date of Delivery: 05/23/23 Provider: [facility] HPI: Liliana Velasco is a 32 y.o. female at 38w3d gestation, dated by 1st trimester ultrasound Her is complicated by GDMA2, gHTN, hx PPH, PTD in G1, hx PreE, obesity, Crohn's disease and hx of LEEP Patient presents to [facility] with concern for decreased movement, ctx and vaginal bleeding. She reports that she had intercourse this AM and had a small amount of vaginal bleeding that required wearing a panty liner. She also noticed cramping which has continued since intercourse and has graduallyinvolved more of the abdomen. Finally, she notes decreased movement since 1330. On arrival to [facility] pt had a BP of 141/74. She has previously presented to the [facility] on 04/15/2023 with elevated BP at home x2 and then once at work (131/95, 120s/91 & 125/102). She now meets criteria for gHTN. She denies WHITE, SOB, CP, vision changes, and RUQ pain. 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 History of Abnormal Pap: None STD History: none Past Medical History: Diagnosis Date Autoimmune disorder (HCC) Crohn's disease (CMS/HCC) (HCC) 2018 Diabetes mellitus ([facility]) GDM Hypertension in , preeclampsia, delivered 07/10/2021 [...] d/c. # CV/Pulm: Chronic hypertension: No Diabetes: Yes Asthma: No Past Surgical History: Procedure Laterality Date ANKLE FRACTURE SURGERY Right 2009 CERVICAL BIOPSY W/ LOOP ELECTRODE EXCISION CHOLECYSTECTOMY 2018 Social History Tobacco Use Smoking status: Former Packs/day: .5 Types: Cigarettes Quit date: 10/03/2020 Years since quittin.6 Smokeless tobacco: Never Substance and Sexual Activity Drug use: Never Sexual activity: Yes Partners: Male control/protection: None Alcohol Use: Not At Risk (07/04/2022) AUDIT-C Frequency of Alcohol Consumption: Never Average Number of Drinks: Not on file Frequency of Binge Drinking: Not on file Support System: Supported by Safe at home: Yes family history includes [...] Sys: Negative except per HPI Vitals: Temp: [36.6 ??C (97.8 ??F)-36.7 ??C (98 ??F)] 36.7 ??C (98 ??F) Pulse: [73-96] 81 Resp: [16-20] 16 BP: (126-151)/(74-80) 151/80 Physical Exam: General: NAD, mood appropriate Cardiovascular: Regular rate and rhythm Pulmonary: Normal work of breathing Abdomen: Gravid, non-tender Extremities: Warm and well perfused Speculum Exam: deferred Cervix: 1 /0 /Ballotable Monitoring: Baseline: 120 bpm, Variability: Moderate, Accelerations: Present and Decelerations: None Uterine Activity: No contractions seen on toco Interpretation: Reactive Ultrasound: Vertex presentation Posterior placenta Previa: No Estimated Weight: 2746g (67%) by US, date performed 04/18/2023 Labs: Lab Results Component Value Date ABORH B Positive 05/12/2023 IDCOOMB Negative 05/12/2023 [id number] Nonreactive 10/04/2022 [id number] NON-REACTIVE 05/05/2023 LABRPR NON-REACTIVE 05/05/2023 RUBELIGG Reactive 10/04/2022 HEPBSAG Nonreactive 10/04/2022 GBS neg 05/24/2021 VZVIGG Reactive 10/04/2022 Rh pos/Ab neg/HIV NR (Resulted on: 05/05) 3rd trimester (>28 wga):yes/Rub Imm/RPR NR/HepB NR/HepCNR/VZV Imm/GC/CT neg/neg GBS neg (Resulted on: 04/18) Assessment and Plan Problem Decreased Movements in Third Trimester Liliana Velasco is a 32 y.o. female at 38w3d [...] trimester. Routine midtrimester cervical length screening normal. Plan discussed with Dr. Gonzalez. Kimber Zhou MD 05/12/23 MFM Fellow Attestation I have seen and discussed Liliana Velasco with the resident, Dr. Zhou. I have evaluated the patient and reviewed the treatment plan and recommendations. I agree with the findings and the plan of care as documented in the resident???s note with the following addendum: Briefly, this is a 32 y.o. at 38w3d with complicated by Crohn's disease, GDMA2, history of PEC, history of PPH. She presents today with decreased movement and was found to have mild range BPs, not yet 4h apart, however patient reports intermittent mild range BPs at home. No PEC symptoms. Reactive NST in [facility]. Given possible gHTN, will admit for observation and possible IOL pending labs and repeat BPs. All questions answered. Magi Gonzalez MD Maternal- Medicine Fellow, PGY-5 Cosigned by Radha Clemente MD at 05/15/2023 6:13 PM 3D ANIMATOR 3D ANIMATOR 3D ANIMATOR 3D ANIMATOR 3D ANIMATOR Associated attestation - Radha Clemente MD - 05/15/2023 6:13 PM 3D ANIMATOR I have seen and examined the patient on 05/14/2023. I agree with the findings and plan of care as documented in the resident's/fellow's note. and as discussed with the resident/fellow.. documented in this encounter Nursing Notes * Lizz Sánchez RN - 05/14/2023 3:01 PM CST Patient instructed on participation in home blood pressure monitoring program. Instructed patient on use of omron BP cuff to take home. Patient aware that she is to check bp twice daily when she is prompted per text. She understands she is to text result to phone number. Reviewed normal, mild, and severe range blood pressures. Reviewed signs and symptoms of preeclampsia and when to call MD. Hospital cuff: 124/70 Omron home cuff: 125/82 3D ANIMATOR documented in this encounter Miscellaneous Notes * Plan of Care - Lizz Sánchez RN - 05/14/2023 4:35 PM CST Goals: Clinical Goals for the Shift: shower, manage pain Problem: Activity: Goal: Will verbalize the importance of balancing activity with adequate rest periods Outcome: Completed Problem: Lack of Knowledge: Goal: Will have increased knowledge of Care Outcome: Completed Problem: Coping: Goal: Ability to cope will improve Outcome: Completed Goal: Ability to identify and utilize available resources and services will improve Outcome: Completed Problem: Life Cycle: Goal: Risk for hemorrhage will decrease Outcome: Completed Goal: Chance of risk for complications during the period will decrease Outcome: Completed Problem: Nutritional: Goal: Dietary intake will improve Outcome: Completed Goal: Mother's verbalization of comfort with process will improve Outcome: Completed Problem: Role Relationship: Goal: Ability to interact appropriately with will improve Outcome: Completed Problem: Sensory: Goal: General experience of comfort will improve Outcome: Completed Summary: Discharge instructions reviewed with patient and signed. Patient received home medicationsfrom mobile pharmacy. Patient discharged home in stable condition. 3D ANIMATOR * Note - Blanche Bower RN - 05/14/2023 2:39 PM CST Parent states that infant is feeding without difficulty. Discussed pump for home use. Discussed normal progression in growth and normal parenting concerns. Instructed to call with needs or questions after discharge and visit support group as needed. Support and encouragement provided. 3D ANIMATOR * Initial Assessments - Rita Kim LCSW - 05/14/2023 1:32 PM 3D ANIMATOR Reason for Admission MOB (Liliana Velasco 1990) was admitted on 05/12/2023 for Encounter for induction of labor [Z34.90]. Social Work referral for SDOH check in. Medical History OB-ATMOSPHERIC TECHNICIAN care has been established with [facility]. Pediatric follow-up to be scheduled upon discharge. Medical insurance coverage is through [facility]. Information Baby girl was born on 05/13/2023 at EGA 38.4 weeks and has been named Capri Velasco. Delivery was Vaginal . weighed 6lb 15.8oz at delivery. Killdeer will be breast/formula fed. This is mother's 2nd child. Social History Current address is [address] [place] [id number], where she lives with her family. Currently [phone] (home) is the best phone number for future contact. Mother noted to have 1 other child(david): 2yo son, 05/29/21 MOB reports that her family will be a positive support for her and her child. Father of the baby/, Tacho Velasco, can be reached at [phone]. FOB has been present and supportive at the hospital. Mood and Anxiety Liliana oJse Angel Deoshree denies having any MH hx or concerns for mood instability throughout . Social Work and Lilaina Velasco discussed the signs and symptoms of Mood and Anxiety Disorder. Social Work discussed and normalized increase in emotions and the importance of self-care. Social Work encouraged new mom to take time for herself and utilize supports available. Available support systems reviewed, including: mother and . Warning signs reviewed and MOB encouraged to seek medical and mental health treatment if symptoms arise including possible medication management. MOB engaged in conversation and demonstrates knowledge. Resources Provided and Goals Addressed Social Determinants of Health: Pt denies having any concerns with access to food, transportation, or housing. Family has diapers, safe sleep location, bottles, clothing, and car seat for . Family reports no barriers to accessing follow up care for herself or child. Safe Discharge Plan Mother bonding well with . Preparations have been made at home for and social supports are available. Follow-up medical care has been arranged. Family is connected to resources and will utilize services as needed. There are no concerns for a safe discharge for with family. Social Work will follow for support and additional needs should they arise. Rita MARTÍNEZ, KELSI [facility] Clinical Systems Development Consultant Women and Infants Units 3D ANIMATOR * Plan of Care - Luis Casillas RN - 05/13/2023 10:38 PM CST Problem: Activity: Goal: Will verbalize the importance of balancing activity with adequate rest periods Outcome: Progressing Problem: Lack of Knowledge: Goal: Will have increased knowledge of Care Outcome: Progressing Problem: Coping: Goal: Ability to cope will improve Outcome: Progressing Goal: Ability to identify and utilize available resources and services will improve Outcome: Progressing Problem: Life Cycle: Goal: Risk for hemorrhage will decrease Outcome: Progressing Goal: Chance of risk for complications during the period will decrease Outcome: Progressing Problem: Nutritional: Goal: Dietary intake will improve Outcome: Progressing Goal: Mother's verbalization of comfort with process will improve Outcome: Progressing Problem: Role Relationship: Goal: Ability to interact appropriately with will improve Outcome: Progressing Problem: Sensory: Goal: General experience of comfort will improve Outcome: Progressing Goals: Clinical Goals for the Shift: Patient VSS. Patient pain will be controlled. Summary: Patient is progressing towards shift goals. 3D ANIMATOR * Note - Camila Santillan RN - 05/13/2023 4:59 PM CST Offered assistance with latch and positioning. Pt declines assist at this time. Pt with room full of visitors at this time. Encouraged to call out for support as needed. 3D ANIMATOR * Note - Magi Lezama RN - 05/13/2023 3:15 PM CST Discussed normal behavior, feeding frequency/duration, hand expression and expected void/stool for each day. Observed patient using football hold to latch baby to breast. No latch achieved atthis time due to baby being sleepy. Patient hand expressed 1.5 ml of expressed breast milk and fed to baby with spoon. Encouraged to call for assistance as needed. 3D ANIMATOR * Plan of Care - Lizz Sánchez RN - 05/13/2023 1:12 PM CST Goals: Clinical Goals for the Shift: oriented to unit Problem: Activity: Goal: Will verbalize the importance of balancing activity with adequate rest periods Outcome: Progressing Problem: Lack of Knowledge: Goal: Will have increased knowledge of Care Outcome: Progressing Problem: Coping: Goal: Ability to cope will improve Outcome: Progressing Goal: Ability to identify and utilize available resources and services will improve Outcome: Progressing Problem: Life Cycle: Goal: Risk for hemorrhage will decrease Outcome: Progressing Goal: Chance of risk for complications during the period will decrease Outcome: Progressing Problem: Nutritional: Goal: Dietary intake will improve Outcome: Progressing Goal: Mother's verbalization of comfort with process will improve Outcome: Progressing Problem: Role Relationship: Goal: Ability to interact appropriately with will improve Outcome: Progressing Problem: Sensory: Goal: General experience of comfort will improve Outcome: Progressing Summary: Patient admitted to room 6822 s/p vaginal delivery of baby girl. Patient instructed on meal ordering, call light, pericare, signs and symptoms of hemorrhage. Instructed to call for assistance first time up. 3D ANIMATOR * Hospital Course - Kimber Zhou MD - 05/13/2023 10:54 AM CST Liliana Velasco is a 32 y.o. female at 38w4d weeks gestation, dated by 1st trimester ultrasound with Estimated Date of Delivery: 05/23/23. Her was notable for GDMA2, gHTN, hx PPH, PTDin G1, hx PreE, obesity, Crohn's disease and hx of LEEP. Vertex presentation and GBS negative confirmed on admission. She presented with decreased movement, newly elevated BPs, and was admittedfor induction of labor . She was diagnosed with gHTN. Her induction was started with misoprostol and was continued with oxytocin and artificial rupture of membranes. She had an epidural placed for anesthesia. She progressed to complete and delivered a viable female infant with apgars 8 and 9 at oneand five minutes of life respectively. Delivery was uncomplicated. See L&D delivery note for full details. The patient was transferred to . Her course was uncomplicated. Prior to discharge, her pain was well controlled, she was voiding, passing gas, ambulating, and meeting all post milestones. The patient was consented and registered for remote blood pressure monitoring. A blood pressure cuff has been given to the patient. She has confirmed receipt of test message. Her AVS was updated withdischarge instructions on use of the remote blood pressure monitoring system. She will follow up with her primary OB team (MFM). Symptoms of preeclampsia have been reviewed. #Mother/Baby: Patient has chosen to breastfeed her infant and has chosen partner vasectomy for contraception. 3D ANIMATOR 3D ANIMATOR 3D ANIMATOR * Plan of Care - Jing Najera RN - 05/13/2023 7:19 AM CST Clinical Goals for the Shift: VS, BGs, healthy mom, healthy baby Problem: Lack of Knowledge: Goal: Verbalization of understanding the information provided will improve 05/13/2023718 by Jing Najera RN Outcome: Adequate for Discharge 05/13/2023718 by Jing Najera RN Outcome: Adequate for Discharge Problem: Coping: Goal: Ability to identify appropriate support needs for the childbearing process will improve 05/13/2023718 by Jing Najera, RN Outcome: Adequate for Discharge 05/13/2023718 by Jing Najera, RN Outcome: Adequate for Discharge Goal: Ability to verbilize concerns and feelings about labor and delivery improve 05/13/2023718 by Jing Najera, RN Outcome: Adequate for Discharge 05/13/2023718 by Jing Najera RN Outcome: Adequate for Discharge Problem: Life Cycle: Goal: Ability to maintain clinical measurements within normal limits will improve 05/13/2023718 by Jing Najera, RN Outcome: Adequate for Discharge 05/13/2023718 by Jing Najera RN Outcome: Adequate for Discharge Goal: Ability to make normal progression through stages of labor will improve 05/13/2023718 by Jing Najera RN Outcome: Adequate for Discharge 05/13/2023718 by Jing Najera, RN Outcome: Adequate for Discharge Goal: Ability to effectively push during vaginal delivery will improve 05/13/2023718 by Jing Najera, RN Outcome: Adequate for Discharge 05/13/2023718 by Jing Najera RN Outcome: Adequate for Discharge Problem: Role Relationship: Goal: Ability to demonstrate positive interaction with the child will improve 05/13/2023718 by Jing Najera RN Outcome: Adequate for Discharge 05/13/2023718 by Jing Najera, RN Outcome: Adequate for Discharge Problem: Safety: Goal: Chance of risk for complications during labor and delivery will decrease 05/13/2023718 by Jing Najera, RN Outcome: Adequate for Discharge 05/13/2023718 by Jing Najera RN Outcome: Adequate for Discharge Problem: Sensory: Goal: Relief or control of pain from uterine contractions will improve 05/13/2023718 by Jing Najera RN Outcome: Adequate for Discharge 05/13/2023718 by Jing Najera RN Outcome: Adequate for Discharge Summary: Pt delivered a healthy baby girl vaginally, bonding well with baby. 3D ANIMATOR * L&D Delivery Note - Qi Watkins MD - 05/13/2023 6:48 AM CST [facility] Vaginal Delivery Note Patient's Name: Liliana Velasco : 1990 Attending: Qi Watkins Assisting: Brandy Matson MD Clinic: [facility] Primary Diagnosis: Intrauterine at 38w4d, delivered Decreased movement GDMA2 gHTN, history of PreE History of PPH History of PTB Crohn's disease Obstetrical Medical Risk Factors: Medical Conditions Diagnosis Chronic diarrhea Crohn's disease of small intestine with other complication (HCC) NAFLD (nonalcoholic fatty liver disease) Obesity in , antepartum Skin rash Other specified diseases and conditions complicating History of pre-eclampsia in prior , currently in third trimester Supervision of high-risk , third trimester Gestational diabetes mellitus, with history of GDM History of loop electrosurgical excision procedure (LEEP) of cervix affecting in first trimester History of hemorrhage, currently Decreased movements in third trimester care following vaginal delivery Delivery method: Vaginal [[id number]] Anesthesia: Epidural [254] Membranes: Artificial rupture, clear fluid. Time ruptured prior to delivery: 2h 58m Antibiotics: none Delivery Date: 05/13/2023 Delivery Time: 6:23 AM Placenta Delivery Date & Time: 05/13/2023 6:28 AM Cord: 3 vessels [3] Delayed cord clamping: Yes, 60 seconds. Episiotomy: No Laceration: none QBL: 432 mL : living 6 lb 15.8 oz (3.17 kg) female APGARs: 8 / 9 Disposition: Nursery Labor Summary: Liliana Velasco is a 32 y.o. female at 38w4d weeks gestation, dated by 1st trimester ultrasound with Estimated Date of Delivery: 05/23/23. Her was notable for GDMA2, gHTN, hx PPH, PTDin G1, hx PreE, obesity, Crohn's disease and hx of LEEP. Vertex presentation and GBS negative confirmed on admission. She presented with decreased movement, newly elevated BPs, and was admittedfor induction of labor . She was diagnosed with gHTN. Her induction was started with misoprostol and was continued with oxytocin and artificial rupture of membranes. Epidural was placed for anesthesia. Patient progressed to complete and delivered a viable female infant. The cord was clamped and cutand the baby was handed to mother for skin to skin. The third stage was actively managed with external uterine massage, gentle cord traction and pitocin. The placenta was delivered spontaneously and intact. There were no lacerations or tears. There was lower uterine segment atony. Bimanual massage and oxytocin bolus were performed with improvement.Rectal misoprostol 800mcg was given with adequate hemostasis. All counts were correct before and after the delivery. Additional Procedures Performed: None Description of Additional Procedure Performed: N/A Complications: None Description of Complications: N/A Dr. Qi Watkins was present for the delivery and additional proceedures and management of complications. Brandy Matson MD 05/13/23 MFM Fellow Attestation I was present for the entire delivery. Prolonged decel just prior to delivery, that resolved with repositioning. Patient found to be complete and pushed with good head descent. Uncomplicated . Vigorous with good cry at delivery. Rectal miso placed after uterine atony treated with bimanual massage and oxytocin bolus. Please see resident note for full details. Qi Watkins MD, MPH Cosigned by Radha Clemente MD at 05/13/2023 2:57 PM 3D ANIMATOR 3D ANIMATOR 3D ANIMATOR 3D ANIMATOR Associated attestation - Radha Clemente MD - 05/13/2023 2:57 PM 3D ANIMATOR I have reviewed the above note for Liliana Jose Angel Velasco, and I agree with the documentation by the resident/fellow. Radha Clemente MD 05/13/2023 * Plan of Care - Ximena Goode RN - 05/12/2023 7:20 PM 3D ANIMATOR Goals: Clinical Goals for the Shift: VS, BGs, healthy mom, healthy baby Summary: Problem: Lack of Knowledge: Goal: Verbalization of understanding the information provided will improve Outcome: Progressing Problem: Coping: Goal: Ability to identify appropriate support needs for the childbearing process will improve Outcome: Progressing Goal: Ability to verbilize concerns and feelings about labor and delivery improve Outcome: Progressing Problem: Life Cycle: Goal: Ability to maintain clinical measurements within normal limits will improve Outcome: Progressing Goal: Ability to make normal progression through stages of labor will improve Outcome: Progressing Goal: Ability to effectively push during vaginal delivery will improve Outcome: Progressing Problem: Role Relationship: Goal: Ability to demonstrate positive interaction with the child will improve Outcome: Progressing Problem: Safety: Goal: Chance of risk for complications during labor and delivery will decrease Outcome: Progressing Problem: Sensory: Goal: Relief or control of pain from uterine contractions will improve Outcome: Progressing 3D ANIMATOR * Plan of Peg - Radha Hager RN - 05/12/2023 5:07 PM CST Goals: Clinical Goals for the Shift: healthy mom, healthy baby, pain control Summary: Problem: Lack of Knowledge: Goal: Verbalization of understanding the information provided will improve Outcome: Progressing Problem: Coping: Goal: Ability to identify appropriate support needs for the childbearing process will improve Outcome: Progressing Goal: Ability to verbilize concerns and feelings about labor and delivery improve Outcome: Progressing Problem: Life Cycle: Goal: Ability to maintain clinical measurements within normal limits will improve Outcome: Progressing Goal: Ability to make normal progression through stages of labor will improve Outcome: Progressing Goal: Ability to effectively push during vaginal delivery will improve Outcome: Progressing Problem: Role Relationship: Goal: Ability to demonstrate positive interaction with the child will improve Outcome: Progressing Problem: Safety: Goal: Chance of risk for complications during labor and delivery will decrease Outcome: Progressing Problem: Sensory: Goal: Relief or control of pain from uterine contractions will improve Outcome: Progressing 3D ANIMATOR documented in this encounter Plan of Treatment Not on file documented as of this encounter Procedures Procedure Name Priority Date/Time Associated Diagnosis Comments POCT GLUCOSE DEVICE Routine 05/14/2023 5 :16 AM 3D ANIMATOR SURGICAL PATHOLOGY Routine 05/13/2023 6: 52 AM 3D ANIMATOR POCT GLUCOSE DEVICE Routine 05/13/2023 5 :16 AM 3D ANIMATOR POCT GLUCOSE DEVICE Routine 05/13/2023 3 :04 AM 3D ANIMATOR POCT GLUCOSE DEVICE Routine 05/13/2023 1 :02 AM 3D ANIMATOR POCT GLUCOSE DEVICE Routine 05/12/2023 1 1:17 PM 3D ANIMATOR POCT GLUCOSE DEVICE Routine 05/12/2023 9 :09 PM 3D ANIMATOR US OB LIMITED IP Routine 05/12/2023 7:04 PM 3D ANIMATOR Supervision of high-risk , third trimester POCT GLUCOSE DEVICE Routine 05/12/2023 6 :54 PM 3D ANIMATOR PROTEIN / CREATININE RATIO, URINE, RANDOM Routine 05/12/2023 4:45 PM 3D ANIMATOR POCT GLUCOSE DEVICE Routine 05/12/2023 4 :28 PM 3D ANIMATOR EGFR STAT 05/12/2023 3:41 PM 3D ANIMATOR RPR STAT 05/12/2023 3:41 PM 3D ANIMATOR CBC WITHOUT DIFFERENTIAL STAT 05/12/2023 3:41 PM 3D ANIMATOR TYPE AND SCREEN STAT 05/12/2023 3:41 PM 3D ANIMATOR COMPREHENSIVE METABOLIC PANEL STAT 05/12/2023 3:41 PM 3D ANIMATOR POCT URINALYSIS (CLINITEK) Routine 05/12/2023 3:07 PM 3D ANIMATOR documented in this encounter Results * POCT glucose (05/14/2023 5:16 AM 3D ANIMATOR) Glucose, POC 83 70 - 199 mg/dL [facility] Blood 05/14/2023 5:16 AM 3D ANIMATOR 05/14/2023 5:16 AM 3D ANIMATOR us Magi Gonzalez MD LAB POCT ORDERABLES - JACE CE Final Result [facility] Department [place] [address] * Surgical pathology (05/13/2023 6:52 AM 3D ANIMATOR) Tissue (Placenta) 05/13/2023 6:52 AM 3D ANIMATOR 05/13/2023 8:12 AM 3D ANIMATOR Narrative PATHOLOGY [facility] - 05/19/2023 4:38 PM 3D ANIMATOR EPIC results best viewed via link to PDF [facility] [place] [address] Note to Patients: This report may contain a detailed description of human tissue sent by a health care provider to the laboratory for pathologic evaluation. The content of this report is essential for diagnosis and may provide important critical findings. This information may be unfamiliar to patients to review without a medical professional present. It is advised that the patient review this report in the presence of a health care provider who can answer questions and explain the details. SURGICAL PATHOLOGY REPORT FINAL Patient Name: ?? LILIANA VELASCO Gender: ??F : ??1990 (Age: 32) Address: ??[address] [place] [address] ??[id number] [facility] #: ??[id number] Taken:05/13/2023 Received:05/13/2023 Reported: 05/19/2023 Patient Type: [facility] Inpatient ?? 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 Yudi Fang M.D. Report Electronically Reviewed and Signed Out By ??Yudi Fang M.D. 05/19/2023 16:38:11 Microscopic Description and Comment: Microscopic examination substantiates the above cited diagnosis. Vanesa Silverman M.D. History: Patient is a 32-year-old woman who presents at 38.4 weeks with history of spontaneous vaginal delivery and gestational diabetes mellitus type 2. ??Operative procedure: Vaginal delivery. Specimen(s) Received: A: Placenta, ??third trimester Gross Description: Received in formalin, labeled with the patient? ? s identifiers and Placenta, per requisition - Dimensions: 460 g fixed, trimmed, 16.1 x 15.6 x 1.5-3.3 cm in thickness and discoid - Membranes: Ortega-brown and wrinkled semitranslucent - Membrane insertion: Marginal 80% and circummarginate 20% - Cord: ? 27.5 cm in length by 1.2 cm in diameter detached, 13.3 cm in length by 1.6 cm in diameter attached ? Three vessels ? Eccentric insertion, comes within 3.1 cm from disc edge ? Ortega-white with a 1.1 x 0.9 x 0.6 cm false knot - Surface: York purple and wrinkled with a focal area of subchorionic fibrin - Maternal Surface: The cotyledons are york purple intact and complete with ortega white flecks - Cut surface: Red and spongy with a centrally located cystic area that measures 1.2 x 0.9 cm. Summary of sections: A1 membranes and umbilical cord A2 placental disc A3-A6 Placenta disc, bisected A7 Cystic area Jar: 3 ?? rxr05/14/2023 12:37 PA(s): Erin Thomas, MS, PA(ASCP)CM By this signature, I attest that the above diagnosis is based upon my personal examination of the slides(and/or other material). Addenda/Procedures The performance characteristics of some immunohistochemical stains, fluorescence in-situ hybridization tests and immunophenotyping by flow cytometry cited in this report (if any) were determined by the Surgical Pathology and Flow Cytometry Departments at [facility] as part of an ongoing senior data quality analyst program and in compliance with federally mandated regulations drawn from the Clinical Laboratory Improvement Act of 1988 (CLIA '88). ??Some of these tests rely on the use of analyte specific reagents and are subject to specific labeling requirements by the US Food and Drug Administration. ??Such diagnostic tests may only be performed in a facility that is certified by the Department of Health and Human Services as a high complexity laboratory under CLIA '88. ??The FDA has determined that such clearance or approval is not necessary. ??This test is used for clinical purposes. ??It should not be regarded as investigational or for research. ??Nevertheless, federal rules concerning the medical use of analyte specific reagents require that the following disclaimer be attached to the report: This test was developed and its performance characteristics determined by the Surgical Pathology and Flow Cytometry Departments of [facility]. ??It has not been cleared or approved by the U. S. Food and Drug Administration. IMAGES AND SCANNED DOCUMENTS, IF INCLUDED, ONLY VIEWABLE IN PDF VERSION OF REPORT us Magi Gonzalez MD LAB PATHOLOGY ORDERABLES F inal Result PATHOLOGY [facility] 3rd Floor [place], [place] [phone] * POCT glucose (05/13/2023 5:16 AM 3D ANIMATOR) Glucose, POC 99 70 - 199 mg/dL [facility] Blood 05/13/2023 5:16 AM 3D ANIMATOR 05/13/2023 5:16 AM 3D ANIMATOR Magi Gonzalez MD LAB POCT ORDERABLES - JACE CE Final Result Performing Organization Address [facility] Co de Phone Number [facility] [place] [address] * POCT glucose (05/13/2023 3:04 AM 3D ANIMATOR) Glucose, POC 101 70 - 199 mg/dL [facility] Blood 05/13/2023 3:04 AM 3D ANIMATOR 05/13/2023 3:04 AM 3D ANIMATOR Magi Gonzalez MD LAB POCT ORDERABLES - JACE CE Final Result Performing Organization Address [facility] de Phone Number [facility] [place] [address] * POCT glucose (05/13/2023 1:02 AM 3D ANIMATOR) Glucose, POC 86 70 - 199 mg/dL [facility] Blood 05/13/2023 1:02 AM 3D ANIMATOR 05/13/2023 1:02 AM 3D ANIMATOR Magi Gonzalez MD LAB POCT ORDERABLES - JACE CE Final Result Performing Organization Address [facility] de Phone Number [facility] [place] [address] * POCT glucose (05/12/2023 11:17 PM 3D ANIMATOR) Glucose, POC 86 70 - 199 mg/dL [facility] Blood 05/12/2023 11:1 7 PM 3D ANIMATOR 05/12/2023 11:17 PM 3D ANIMATOR Magi Gonzalez MD LAB POCT ORDERABLES - JACE CE Final Result Performing Organization Address [facility] Co de Phone Number [facility] Department [place] [address] * POCT glucose (05/12/2023 9:09 PM 3D ANIMATOR) Glucose, POC 83 70 - 199 mg/dL [facility] Blood 05/12/2023 9:09 PM 3D ANIMATOR 05/12/2023 9:09 PM 3D ANIMATOR us Magi Gonzalez MD LAB POCT ORDERABLES - JACE CE Final Result Performing Organization Address [facility] de Phone Number [facility] [place] [address] * US Ob Limited (05/12/2023 7:04 PM 3D ANIMATOR) Anatomical Region Laterality Modality Abdomen N/A Ultrasound Narrative 05/12/2023 7:04 PM 3D ANIMATOR Vertex I have reviewed the images and agree with above. Edward Zamorano MD us Edward Zamorano MD IMG OB US PROCEDURES Final Result * POCT glucose (05/12/2023 6:54 PM 3D ANIMATOR) Glucose, POC 82 70 - 199 mg/dL [facility] Blood 05/12/2023 6:54 PM 3D ANIMATOR 05/12/2023 6:54 PM 3D ANIMATOR us Magi Gonzalez MD LAB POCT ORDERABLES - JACE CE Final Result Performing Organization Address [facility] Co de Phone Number [facility] Department [place] [address] * (ABNORMAL) Protein / creatinine ratio, urine, random (05/12/2023 4:45 PM 3D ANIMATOR) Protein, ur, quant 19.2 mg/dL [facility] Comment: Interpretive Data No reference range established. Current interpretive data was last revised 2018. Creatinine Ur 88.8 mg/dL [facility] Comment: Interpretive Data No reference range established. Current interpretive data was last revised 2018. Protein/creatinin e ratio 216.2(H) 0.0 - 180.0 mg/g CR [facility] Urine 05/12/2023 4:45 PM 3D ANIMATOR 05/12/2023 4:59 PM 3D ANIMATOR Magi Gonzalez MD LAB URINE ORDERABLES Final Result Performing Organization Address [facility]/ZIP Co de Phone Number [facility] Department [place] [address] * POCT glucose (05/12/2023 4:28 PM 3D ANIMATOR) Pathologist [facility] Glucose, POC 102 70 - 199 mg/dL [facility] Blood 05/12/2023 4:28 PM 3D ANIMATOR 05/12/2023 4:28 PM 3D ANIMATOR Magi Gonzalez MD LAB POCT ORDERABLES - JACE CE Final Result Performing Organization Address [facility] Co de Phone Number [facility] Department [place] [address] * eGFR (05/12/2023 3:41 PM 3D ANIMATOR) eGFR >90 >=60 mL/min/1. 73 m2 [facility] Comment: Interpretive Data Reference Interval Normal ?>/= 90 mL/min/1.73m2 Mildly decreased* ? 60 - 89 mL/min/1.73m2 Mildly to moderately decreased ?45 - 59 mL/min/1.73m2 Moderately to severely decreased ??30 - 44 mL/min/1.73m2 Severely decreased ?15 - 29 mL/min/1.73m2 Kidney Failure ?< 15 ??mL/min/1.73m2 *Relative to young adult level Estimated glomerular filtration rate is determined by the 2020 CKD-EPI equation recommended by the National Kidney Foundation (A Unifying Approach to GFR Estimation: Recommendations of the NKF-ASK Task Force on Reassessing the Inclusion of Race in Diagnosing Kidney Disease, JASN 2020). The CKD-EPI equation should not be used for patients with unstable renal function and has not been validated in children and those over 70. Current interpretive data was last reviewed 2021. Blood 05/12/2023 3:41 PM 3D ANIMATOR 05/12/2023 3:56 PM 3D ANIMATOR Lisa Gutierrez NP LAB BLOOD ORDERABLES Fin al Result Performing Organization Address City/[facility]/ZIP Co de Phone Number [facility] Department [place] [address] * RPR Blood (05/12/2023 3:41 PM 3D ANIMATOR) RPR Nonreactive Nonreactive [facility] Blood 05/12/2023 3:41 PM 3D ANIMATOR 05/12/2023 3:55 PM 3D ANIMATOR Lisa Gutierrez NP LAB MICROBIOLOGY - GENER AL ORDERABLES Final Result Performing Organization Address [facility]/ZIP Co de Phone Number [facility] Department [place] [address] * Type and screen (05/12/2023 3:41 PM 3D ANIMATOR) ABO Rh B Positive Andres, indirect Negative [facility] Blood 05/12/2023 3:41 PM 3D ANIMATOR 05/12/2023 3:50 PM 3D ANIMATOR Narrative [facility] - 05/12/2023 4:37 PM 3D ANIMATOR Has the patient had Daratumumab or Isatuximab in the past 6 months?->Unknown Lisa Gutierrez ORDER ENTRY LAB BLOOD BANK TEST ORDJosé LAGUERRE Final Result [facility] Department [place] [address] * (ABNORMAL) Comprehensive metabolic panel (05/12/2023 3:41 PM 3D ANIMATOR) [facility] Sodium 139 135 - 145 mmol/L [facility] Potassium, pl 3.6 3.3 - 4.9 mmol/L [facility] Chloride 107 97 - 110 mmol/L [facility] CO2 23 22 - 32 mmol/L [facility] Anion gap 9 2 - 15 mmol/L [facility] BUN 7 6 - 25 mg/dL [facility] Creatinine 0.49(L) 0.60 - 1.10 mg/dL [facility] Glucose 106 70 - 199 mg/dL [facility] Comment: Interpretive Data Fasting glucose >/= 126 mg/dl is diagnostic for diabetes. ?? Fasting is defined as no caloric intake for at least 8 hours. Fasting glucose between 100 mg/dl to 125 mg/dl is diagnostic of prediabetes. In a patient with classic symptoms of hyperglycemia or hyperglycemic crisis, a random glucose >/= 200 mg/dl is diagnostic for diabetes. In the absence of unequivocal hyperglycemia, results should be confirmed by repeat testing. The classification and Diagnosis of Diabetes Diabetes Care 2021; 46: S19-S40. Current interpretive data was last revised 2022. Calcium 9.3 8.5 - 10.3 mg/dL [facility] Bilirubin, total 0.2 0.1 - 1.2 mg/dL [facility] Protein, pl 6.8 6.5 - 8.5 g/dL [facility] Albumin 3.4(L) 3.5 - 5.0 g/dL [facility] Alk phos 101 40 - 130 Units/L [facility] ALT 10 7 - 45 Units/L [facility] AST 15 10 - 45 Units/L [facility] Blood 05/12/2023 3:41 PM 3D ANIMATOR 05/12/2023 3:56 PM 3D ANIMATOR Lisa Gutierrez ORDER ENTRY LAB BLOOD ORDERABLES Fin al Result Performing Organization Address [facility] de Phone Number [facility] Department [place] [address] * (ABNORMAL) CBC without differential (05/12/2023 3:41 PM 3D ANIMATOR) [facility] WBC 12.4(H) 3.8 - 9.9 K/cumm [facility] Hgb 10.7(L) 11.9 - 15.5 g/dL [facility] Hct 31.7(L) 35.6 - 45.5 % [facility] Plt 234 150 - 400 K/cumm [facility] MPV 11.1 9.1 - 12.3 fL [facility] RBC 3.97 3.90 - 5.20 M/cumm [facility] MCV 79.8(L) 81.3 - 96.4 fL [facility] MCH 27.0(L) 27.1 - 33.3 pg [facility] MCHC 33.8 32.3 - 35.7 g/dL [facility] RDW CV 14.2 11.1 - 14.9 % [facility] RDW SD 41.0 35.7 - 48.1 fL [facility] NRBC abs 0.00 0.00 - 0.01 K/cumm [facility] Blood 05/12/2023 3:41 PM 3D ANIMATOR 05/12/2023 3:56 PM 3D ANIMATOR Lisa Gutierrez ORDER ENTRY LAB BLOOD ORDERABLES Fin al Result Performing Organization Address [facility]/ZIP Co de Phone Number [facility] Department [place] [address] * (ABNORMAL) POCT urinalysis (Clinitek) (05/12/2023 3:07 PM 3D ANIMATOR) Color, ur, POC Yellow Yellow [facility] Clarity, UA, POC Clear Clear [facility] Glucose, ur, POC Negative Negative [facility] Bilirubin, ur, POC Negative Negative [facility] Ketones, ur, POC Negative Negative [facility] Specific gravity, ur, POC 1.025 1.010 - 1.025 [facility] Blood, ur, POC 3+(A) Negative [facility] pH, ur, POC 7.0 [facility] Comment: Interpretive Data Urine pH is affected by diet, medications, systemic acid-base disturbances, and renal tubular function. pH may affect urinary stone formation. For example, urine pH below 6.0 may help reduce the tendency for calcium phosphate stones and pH greater than 6.0 may reduce the tendency for uric acid stone formation. Source: [employer]. Last Revised Date: 04-24-2017 Protein, ur, POC 1+(A) Negative [facility] Urobilinogen, ur, POC 0.2 mg/dL mg/dL [facility] Nitrites, ur, POC Negative Negative [facility] Leukocyte esterase, ur, POC Negative Negative [facility] Urine 05/12/2023 3:07 PM 3D ANIMATOR 05/12/2023 3:07 PM 3D ANIMATOR Shanti Chavarria MD LAB POCT ORDERABLES - DEVICE Final Result [facility] Department [place] [address] documented in this encounter Visit Diagnoses Diagnosis Supervision of high-risk , third trimester- Primary Decreased movements in third trimester care following vaginal delivery documented in this encounter Administered Medications Inactive Administered Medications - up to 3 most recent administrations Medication Order MAR Action Action Date Dose Rate Site acetaminophen (TYLENOL) tablet 650 mg 650 mg, oral, Every 6 hours PRN, 1st line for pain, Starting on Fri05/13/23 at 0705 Given 05/14/2023 3:07 PM 3D ANIMATOR 650 mg Given 05/14/2023 4:28 AM 3D ANIMATOR 650 mg Given 05/13/2023 9:58 PM 3D ANIMATOR 650 mg dextrose 5% and Lactated Ringer's infusion 75 mL/hr, intravenous, Continuous, Starting on Fri05/13/23 at 0000 New Bag 05/12/2023 11:27 PM 3D ANIMATOR 75 mL/hr 75 mL/hr docusate sodium (COLACE) capsule 100 mg 100 mg, oral, 2 times daily, First dose on Fri05/13/23 at 0900, Hold if diarrhea., Indications: constipation, Stool SoftenerIndications:constipati on,Stool Softener Given 05/14/2023 7:47 AM 3D ANIMATOR 100 mg Oral Given 05/13/2023 9:59 PM 3D ANIMATOR 100 mg Given 05/13/2023 10:46 AM 3D ANIMATOR 100 mg enoxaparin (LOVENOX) syringe 40 mg 40 mg, subcutaneous, Every 12 hours scheduled, First dose (after last reorder) on Fri05/13/23 at 0900, Indications: Deep Vein Thrombosis PreventionIndications:Deep Vein Thrombosis Prevention Given 05/14/2023 7:48 AM 3D ANIMATOR 40 mg Left Upper Arm ibuprofen (ADVIL,MOTRIN) tablet 600 mg 600 mg, oral, Every 6 hours scheduled, First dose on Fri05/13/23 at 0745, Indications: CrampsIndications:Cramps Given 05/14/2023 12:53 PM 3D ANIMATOR 600 mg Given 05/14/2023 6:34 AM 3D ANIMATOR 600 mg Given 05/13/2023 11:53 PM 3D ANIMATOR 600 mg Lactated Ringer's (LR) bolus 1,000 mL 1,000 mL, intravenous, Once as needed, for epidural placement per anesthesia request, Starting on Fri05/12/23 at 1643, For 1 dose, L&D Pre-Delivery, Administer only on provider request. Start 15 minutes prior to epidural placement New Bag 05/12/2023 10:34 PM 3D ANIMATOR 1,000 mL lidocaine (ASPERCREME) 4 % patch 2 patch 2 patch, transdermal, Administer over 12 Hours, Every 24 hours, First dose on Fri05/14/23 at 0815, Apply to affected area: back miSOPROStol (CYTOTEC) split tablet 25 mcg 25 mcg, vaginal, Once, On Fri05/12/23 at 1930, For 1 dose Given 05/12/2023 6:50 PM 3D ANIMATOR 25 mcg miSOPROStoL (CYTOTEC) tablet 800 mcg 800 mcg, rectal, Once as needed, hemorrhage per MD request, Starting on Fri05/12/23 at 1643, For 1 dose, L&D Pre-Delivery, Administer only on provider request Given by Other 05/13/2023 6:34 AM 3D ANIMATOR 800 mcg ondansetron (ZOFRAN) injection 4 mg 4 mg, intravenous, Administer over 2 Minutes, Every 6 hours PRN, nausea, vomiting, if not tolerating PO, Starting on Fri05/14/23 at 0453, Start in 24 hours after Anesthesia no longer covering., Indications: Nausea and VomitingIndications:Nausea and Vomiting ondansetron ODT (ZOFRAN-ODT) disintegrating tablet 4 mg 4 mg, oral, Every 6 hours PRN, nausea, vomiting, Starting on Fri05/14/23 at 0453, Start in 24 hours after Anesthesia no longer covering., Indications: Nausea and VomitingIndications:Nausea and Vomiting oxytocin 30 unit/500 mL (0.06 unit/mL) in sodium chloride 0.9% (premix) solution 95-334 milliunits/min (95-334 mL/hr), 0.06 units/mL, intravenous, Continuous, Starting on Fri05/13/23 at 0700, Until Fri05/13/23 at 1024, After delivery of placenta initiate at 334 dalila-units/minutes for 30 minutes then decrease infusion to 95 dalila-units/min for 3.5 hours., Routine Rate/Dose Change 05/13/2023 6:55 AM 3D ANIMATOR 95 milliunits/min 95 mL/hr Rate/Dose Change 05/13/2023 6:30 AM 3D ANIMATOR 999 milliunits/min 999 mL/hr New Bag 05/13/2023 6:25 AM 3D ANIMATOR 334 milliunits/min 334 m L/hr oxytocin 30 unit/500 mL (0.06 unit/mL) in sodium chloride 0.9% (premix) solution 0-40 milliunits/min (0-40 mL/hr), 0.06 units/mL, intravenous, Titrated, Starting on Fri05/13/23 at 0015, Until Fri05/13/23 at 0705, Indications: Induction of Labor, Titration instructions: Titrate, Initial Dose: 2 milliunits/min, Titrate: Up/Down, Titrate by: 2 milliunits/min, Every: 30 minutes, Goal: Less than or equal to 5 contractions per 10 minutes, Maximum dose = 40 milliunit/min DO NOT USE FOR Stop oxytocin infusion and notify provider for category III heart rate (FHR) tracing or prolonged FHR deceleration. If oxytocin has been stopped for less than 30 minutes and the heart rate tracing is reassuring and contraction pattern is normal, restart oxytocin titration at half of the prior dose. If oxytocin has been stopped for greater than 30 minutes and the heart rate tracing is reassuring and contraction pattern is normal, restart oxytocin titration at 2 milliunits/minute?? , RoutineIndications:Inducti on of Labor Rate/Dose Change 05/13/2023 5:15 AM 3D ANIMATOR 18 milliunits/min 18 mL/hr Rate/Dose Change 05/13/2023 4:30 AM 3D ANIMATOR 16 milliunits/min 16 mL/hr Rate/Dose Change 05/13/2023 4:00 AM 3D ANIMATOR 14 milliunits/min 14 mL/hr PNV with bqciszt-ligb-FQ tablet 1 tablet 1 tablet, oral, Daily, First dose on Fri05/13/23 at 0900, Begin when normal bowel activity resumes., Indications: Vitamin Deficiency PreventionIndications:Vitamin Deficiency Prevention Given 05/14/2023 7:47 AM 3D ANIMATOR 1 tablet Given 05/13/2023 10:46 AM 3D ANIMATOR 1 tablet polyethylene glycol (MIRALAX) packet 17 g 17 g, oral, Daily, First dose on Fri05/13/23 at 0900, Hold if diarrhea., Indications: constipationIndications:constipation Given 05/14/2023 7:48 AM 3D ANIMATOR 17 g Oral sodium chloride 0.9% flush 0.5-20 mL 0.5-20 mL, intra-catheter, Every 8 hours scheduled, First dose on Fri05/12/23 at 1715, L&D Pre-Delivery, Flush volume based on line type and size. Given 05/12/2023 6:56 PM 3D ANIMATOR 10 mL documented in this encounter Active and Recently Administered Medications Times are shown in 3D ANIMATOR. Scheduled Medication Order 05/12/2023 05/13/2023 05/14/2023 docusate sodium (COLACE) capsule 100 mg 100 mg, oral, 2 times daily, First dose on Fri05/13/23 at 0900, Hold if diarrhea., Indications: constipation, Stool Softener 1046 (Given - Provider: Lizz Sánchez RN)2159 (Given - Provider: Luis Casillas RN) 0747 (Given - Provider: Tami Guajardo) enoxaparin (LOVENOX) syringe 40 mg 40 mg, subcutaneous, Every 12 hours scheduled, First dose (after last reorder) on Fri05/13/23 at 0900, Indications: Deep Vein Thrombosis Prevention 1047 (Not Given - Provider: Lizz Sánchez RN - Reason: Contraindicated)2100 (Not Given - Provider: Luis Casillas RN - Reason: Patient/family refused) 0748 (Given - Provider: Tami Guajardo) ibuprofen (ADVIL,MOTRIN) tablet 600 mg 600 mg, oral, Every 6 hours scheduled, First dose on Fri05/13/23 at 0745, Indications: Cramps 0745 (Hold - Provider: Jing Najera RN - Reason: Patient/family refused)1114 (Given - Provider: Lizz Sánchez RN)1759 (Given - Provider: Lizz Sánchez RN)2353 (Given - Provider: Luis Casillas RN) 0634 (Given - Provider: Luis Casillas RN)1253 (Given - Provider: Lizz Sánchez RN) lidocaine (ASPERCREME) 4 % patch 2 patch 2 patch, transdermal, Administer over 12 Hours, Every 24 hours, First dose on Fri05/14/23 at 0815, Apply to affected area: back 0815 (Due) miSOPROStol (CYTOTEC) split tablet 25 mcg (COMPLETED) 25 mcg, vaginal, Once, On Fri05/12/23 at 1930, For 1 dose 1850 (Given - Provider: Radha Hager RN) PNV with agwlwyb-ifas-SN tablet 1 tablet 1 tablet, oral, Daily, First dose on Fri05/13/23 at 0900, Begin when normal bowel activity resumes., Indications: Vitamin Deficiency Prevention 1046 (Given - Provider: Lizz Sánchez RN) 0747 (Given - Provider: Tami Guajardo) polyethylene glycol (MIRALAX) packet 17 g 17 g, oral, Daily, First dose on Fri05/13/23 at 0900, Hold if diarrhea., Indications: constipation 1047 (Not Given - Provider: Lizz Sánchez RN - Reason: Patient/family refused) 0748 (Given - Provider: Tami Guajardo) sodium chloride 0.9% flush 0.5-20 mL (CANCELED) 0.5-20 mL, intra-catheter, Every 8 hours scheduled, First dose on Fri05/12/23 at 1715, L&D Pre-Delivery, Flush volume based on line type and size. 1856 (Given - Provider: Radha Hager, RU)2350 (Not Given - Provider: Ximena Goode RN - Reason: IV Infusing) 0654 (Not Given - Provider: Ximena Goode RN - Reason: IV Infusing) Continuous Medication Order 05/12/2023 05/13/2023 05/14/2023 dextrose 5% and Lactated Ringer's infusion (CANCELED) 75 mL/hr, intravenous, Continuous, Starting on Fri05/13/23 at 0000 2300 (Canceled Entry - Provider: Ximena Goode RN)2327 (New Bag - Provider: Ximena Goode RN) 0627 (Stopped - Provider: oYko Tejada, RU) fentaNYL-BUPivacaine preservative free in 0.9% sodium chloride 2 mcg/mL- 0.1 % cassette (premix) (CANCELED) Continuous Rate: 10 mL/hr, Patient Bolus Dose: other, Patient Bolus Dose (mL): 6, Lockout Interval: 15 Minutes, epidural, Continuous, Starting on Fri05/13/23 at 0000, Until Fri05/13/23 at 0705, 100 mL, Indications: Pain, Stop epidural infusion after placental delivery and any indicated repair is complete., Routine 2308 (New Bag - Provider: Lisa Ruiz MD) 0633 (Stopped (Dual Sign) - Provider: Yoko Tejada, RU) oxytocin 30 unit/500 mL (0.06 unit/mL) in sodium chloride 0.9% (premix) solution () 95-334 milliunits/min (95-334 mL/hr), 0.06 units/mL, intravenous, Continuous, Starting on Fri05/13/23 at 0700, Until Fri05/13/23 at 1024, After delivery of placenta initiate at 334 dalila-units/minutes for 30 minutes then decrease infusion to 95 dalila-units/min for 3.5 hours., Routine 0625 (New Bag - Provider: Yoko Tejada RN)0630 (Rate/Dose Change - Provider: Yoko Tejada RN)0655 (Rate/Dose Change - Provider: Yoko Tejada RN)0815 (Stopped - Provider: Jing Najera RN) oxytocin 30 unit/500 mL (0.06 unit/mL) in sodium chloride 0.9% (premix) solution (CANCELED)(Linked Group 1) 0-40 milliunits/min (0-40 mL/hr), 0.06 units/mL, intravenous, Titrated, Starting on Fri05/13/23 at 0015, Until Fri05/13/23 at 0705, Indications: Induction of Labor, Titration instructions: Titrate, Initial Dose: 2 milliunits/min, Titrate: Up/Down, Titrate by: 2 milliunits/min, Every: 30 minutes, Goal: Less than or equal to 5 contractions per 10 minutes, Maximum dose = 40 milliunit/min DO NOT USE FOR Stop oxytocin infusion and notify provider for category III heart rate (FHR) tracing or prolonged FHR deceleration. If oxytocin has been stopped for less than 30 minutes and the heart rate tracing is reassuring and contraction pattern is normal, restart oxytocin titration at half of the prior dose. If oxytocin has been stopped for greater than 30 minutes and the heart rate tracing is reassuring and contraction pattern is normal, restart oxytocin titration at 2 milliunits/minute?? , Routine 2345 (New Bag - Provider: Ximena Goode RN - Comment: Verified by Radha VENCES) 0030 (Rate/Dose Change - Provider: Ximena Goode RN)0100 (Rate/Dose Change - Provider: Ximena Goode RN)0130 (Rate/Dose Change - Provider: Ximena Goode RN)0230 (Rate/Dose Change - Provider: Ximena Goode RN)0300 (Rate/Dose Change - Provider: Ximena Goode RN)0400 (Rate/Dose Change - Provider: Ximena Goode RN)0430 (Rate/Dose Change - Provider: Ximena Goode RN)0515 (Rate/Dose Change - Provider: Ximena Goode RN)0626 (Stopped - Provider: Yoko Tejada RN) PRN Medication Order 05/12/2023 05/13/2023 05/14/2023 acetaminophen (TYLENOL) tablet 650 mg 650 mg, oral, Every 6 hours PRN, 1st line for pain, Starting on Fri05/13/23 at 0705 0810 (Given - Provider: Jing Najera RN)1531 (Given - Provider: Bita Burns, RU)2158 (Given - Provider: Luis Casillas, RU) 0428 (Given - Provider: Luis Casillas, RU)1507 (Given - Provider: Lizz Sánchez, RU) benzocaine-menthoL (DERMOPLAST) 20-0.5 % topical spray 1 spray 1 spray, topical, As needed, other, perianal area for pain, Starting on Fri05/13/23 at 0705, Up to 6 times a day., Apply to affected area: perineum, Indications: Minor Skin Wound Pain calcium carbonate (TUMS) chewable tablet 500 mg 500 mg, oral, 4 times daily PRN, heartburn, Starting on Fri05/13/23 at 0705, Indications: Dyspepsia hydrocortisone (ANUSOL-HC) 2.5 % rectal cream rectal, 3 times daily PRN, hemorrhoids, Starting on Fri05/13/23 at 0705, Indications: Hemorrhoids Lactated Ringer's (LR) bolus 1,000 mL (COMPLETED) 1,000 mL, intravenous, Once as needed, for epidural placement per anesthesia request, Starting on Fri05/12/23 at 1643, For 1 dose, L&D Pre-Delivery, Administer only on provider request. Start 15 minutes prior to epidural placement 2234 (New Bag - Provider: Ximena Goode, RU) miSOPROStoL (CYTOTEC) tablet 800 mcg (COMPLETED) 800 mcg, rectal, Once as needed, hemorrhage per MD request, Starting on Fri05/12/23 at 1643, For 1 dose, L&D Pre-Delivery, Administer only on provider request 0634 (Given by Other - Provider: Yoko Tejada RN - Comment: placed by Heber GREGORY) ondansetron (ZOFRAN) injection 4 mg(Linked Group 2) 4 mg, intravenous, Administer over 2 Minutes, Every 6 hours PRN, nausea, vomiting, if not tolerating PO, Starting on Fri05/14/23 at 0453, Start in 24 hours after Anesthesia no longer covering., Indications: Nausea and Vomiting ondansetron ODT (ZOFRAN-ODT) disintegrating tablet 4 mg(Linked Group 2) 4 mg, oral, Every 6 hours PRN, nausea, vomiting, Starting on Fri05/14/23 at 0453, Start in 24 hours after Anesthesia no longer covering., Indications: Nausea and Vomiting Linked Groups Order Group 1: oxytocin 30 unit/500 mL (0.06 unit/mL) in sodium chloride 0.9% (premix) solution (CANCELED)Jump to med 0-40 milliunits/min (0-40 mL/hr), 0.06 units/mL, intravenous, Titrated, Starting on Fri05/13/23 at 0015, Until Fri05/13/23 at 0705, Indications: Induction of Labor, Titration instructions: Titrate, Initial Dose: 2 milliunits/min, Titrate: Up/Down, Titrate by: 2 milliunits/min, Every: 30 minutes, Goal: Less than or equal to 5 contractions per 10 minutes, Maximum dose = 40 milliunit/min DO NOT USE FOR Stop oxytocin infusion and notify provider for category III heart rate (FHR) tracing or prolonged FHR deceleration. If oxytocin has been stopped for less than 30 minutes and the heart rate tracing is reassuring and contraction pattern is normal, restart oxytocin titration at half of the prior dose. If oxytocin has been stopped for greater than 30 minutes and the heart rate tracing is reassuring and contraction pattern is normal, restart oxytocin titration at 2 milliunits/minute?? , Routine And Rupture of membranes Category 3 (III) heart rate tracing Prolonged or recurrent FHR decelerations Prolonged minimal variability Change in FHR baseline Uterine tachysystole requiring intervention ?? (CANCELED) Routine, Continuous, Starting on Fri05/12/23 at 2336, Until Specified, Rupture of membranes Category 3 (III) heart rate tracing Prolonged or recurrent FHR decelerations Prolonged minimal variability Change in FHR baseline Uterine tachysystole requiring intervention Group 2: ondansetron ODT (ZOFRAN-ODT) disintegrating tablet 4 mgJump to med 4 mg, oral, Every 6 hours PRN, nausea, vomiting, Starting on Fri05/14/23 at 0453, Start in 24 hours after Anesthesia no longer covering., Indications: Nausea and Vomiting Or ondansetron (ZOFRAN) injection 4 mgJump to med 4 mg, intravenous, Administer over 2 Minutes, Every 6 hours PRN, nausea, vomiting, if not tolerating PO, Starting on Fri05/14/23 at 0453, Start in 24 hours after Anesthesia no longer covering., Indications: Nausea and Vomiting documented in this encounter Orders Medications Ordered That Jonathan ht Not Have Been Administered Count Last Ordered Date First Ordered Date lidocaine (ASPERCREME) 4 % patch 2 patch 1 05/14/2023 benzocaine-menthoL (DERMOPLA ST) 20-0.5 % topical spray 1 spray 1 05/13/2023 calcium carbonate (TUMS) jayme wable tablet 500 mg 1 05/13/2023 enoxaparin (LOVENOX) syringe 40 mg 1 2023 hydrocortisone (ANUSOL-HC) 2 .5 % rectal cream 1 05/13/2023 ondansetron (ZOFRAN) injection 4 mg 4 05/1305/12/2023 ondansetron ODT (ZOFRAN-ODT) disintegrating tablet 4 mg 2 05/13/2023 05/12/2023 carboprost (HEMABATE) injection 250 mcg 1 0 05/12/2023 Carrier Fluids for Secondary Infusion - 0.9% Sodium Chloride 4 05/12/2023 dextrose (D10W) 10% bolus 250 mL 1 05/12/19 dextrose gel in packet 15 g 1 05/12/2023 fentaNYL-BUPivacaine preserv ative free in 0.9% sodium chloride 2 mcg/mL- 0.1 % cassette (premix) 2 05/12/2023 glucagon injection 1 mg 1 05/12/2023 insulin regular in 0.9% sodi um chloride (MYXREDLIN) 100 unit/100 mL (1 unit/mL) infusion (premix) 1 05/12/2023 Lactated Ringer's (LR) bolus 1,000 mL 1 lidocaine PF (XYLOCAINE) 10 mg/mL (1 %) preservative free injection 100 mg 1 05/12/2023 loperamide (IMODIUM) capsule 2 mg 1 024 methylergonovine (METHERGINE ) injection 0.2 mg 1 05/12/2023 naloxone (NARCAN) 0.4 mg/mL injection 0.04-0.4 mg 2 05/12/2023 oxytocin (PITOCIN) injection 10 Units 1 sodium chloride 0.9% flush 0.5-20 mL 7 04/15 sodium chloride 0.9% infusion 1 05/12/2023 terbutaline (BRETHINE) injection 0.125 mg 1 05/12/2023 terbutaline (BRETHINE) injection 0.25 mg 1 05/12/2023 tranexamic acid (CYKLOKAPRON ) 1,000 mg/100 mL (10 mg/mL) in sodium chloride (premix) 1,000 mg 1 05/12/2023 Lab Orders Without Results Count Last Ordered D ate First Ordered Date POCT GLUCOSE DEVICE 5 05/12/2023 POCT URINALYSIS (CLINITEK) 1 05/12/2023 Nursing Count Last Ordered Date First Orde red Date MISCELLANEOUS NURSING CARE ORDER (SPECIFY) 1 05/12/2023 NURSING COMMUNICATION 1 05/12/2023 VITAL SIGNS 1 05/12/2023 Admission Count Last Ordered Date First Orde red Date ADMIT TO L&D INPATIENT 1 05/12/2023 Transfer Count Last Ordered Date First Orde red Date TRANSFER PATIENT TO NEW UNIT 1 05/13/2023 Discharge Count Last Ordered Date First Orde red Date DISCHARGE PATIENT 1 05/14/2023 CORE MEASURES Count Last Ordered Date First Ord ered Date REASON FOR NO VTE PROPHYLAXIS AT ADMISSION 1 05/12/2023 documented in this encounter Care Teams Software Developer Manager Relationship Specialty Start Date End Date Judy Fishman NP [address] [address] PCP - General 07/31/18 Jessica Martínez MD [address] [address] Consulting Physician Obstetrics and Gynecology 11/16/20 documented as of this encounter
--- OUTSIDE RECORDS SUMMARY | 2024-04-11 06:11 | XMS_ITS | Encounter Summary ---
Author Organization [facility] Healthcare Address [address] [place] [address] Care Team Providers Care Bonbon Cream Warmer Name Role Phone Judy Fishman TAILING MACHINE OPERATOR Primary Care Provider + Jessica Martínez MD Unavailable Reason for Visit * Reason Onset Date Comments Incoming Call 04/15/2023 Elevated Blood Pressure Encounter Details Date Type Department Care Team (Late st Contact Info) Description 04/15/2023 Nurse Triage [address] [address] Sailaja Rolle RN Social History Tobacco Use Types Packs/Day Years [...] often do you attend chur ch or zoroastrianism services? 1 to 4 times [...] place to sleep or slept in a usp (including now)? No 05/31/2021 Sims Depression Scale Answer Date Recorded Sims Depression Scale Total 2 07/10/2021 The thought of harming myself has occurred to me . Never 07/10/2021 Personal Safety Answer Date Recorded Getting School Help Needed Denies 03/25 Comments Yes Sex and Gender Information Value Date Recorded Sex Assigned at Not on file Legal Sex Female 7:54 PM MD UROLOGIST Gender Identity Not on file Sexual Orientation Not on file documented as of this encounter Miscellaneous Notes * Telephone Encounter - Sailaja Rolle RN - 04/15/2023 6:21 AM MD UROLOGIST Reason for Disposition [1] Systolic BP >= 130 OR Diastolic >= 80 AND [2] not taking BP medications Answer Assessment - Initial Assessment Questions 1. BLOOD PRESSURE: What is the blood pressure? Did you take at least two measurements 5 minutes apart? 121/91-0610, 133/95- 0615 2. ONSET: When did you take your blood pressure? This morning while getting ready for work 3. HOW: How did you take your blood pressure? (e.g., automatic home BP monitor, visiting nurse) Automatic Home BP monitor 4. MEDICINES: Are you taking any medicines for blood pressure? Have you missed any doses recently? Baby ASA daily, denies missing a dose 5. OTHER SYMPTOMS: Do you have any symptoms? (e.g., blurred vision, chest pain, difficulty breathing, headache, weakness) Denies any other symptoms of pre-E Protocols used: Blood Pressure - [id number] UROLOGIST documented in this encounter Plan of Treatment Not on file documented as of this encounter Visit Diagnoses Not on filedocumented in this encounter Care Teams Bonbon Cream Warmer Relationship Specialty Start Date End Date Judy Fishman NP [address] [id number] PCP - General 07/31/18 Jessica Martínez MD [address] [phone] Consulting Physician Obstetrics and Gynecology 11/16/20 documented as of this encounter
--- OUTSIDE RECORDS SUMMARY | 2024-04-11 06:11 | XMS_ITS | Encounter Summary ---
Author Organization [facility] Address [address] [place] [address] Phone Care Team Providers Care Housesmith Name Role Phone Judy Fishman NP Primary Care Provider + Jessica Martínez MD Unavailable [phone] Encounter Details Date Type Department Care Team (Late st Contact Info) Description 02/24/2023 Telephone [facility] Maternal- Medicine [facility] [address] [place] [address] Pauline Campos RN Social History Tobacco Use Types Packs/Day [...] often do you attend chur ch or nondenominational services? 1 to 4 times per year 05/31/2021 Do you belong to any clubs o r organizations such as temple groups, unions, fraternal or athletic groups, or [...] in a detention (including now)? No 05/31/2021 [place] Depression Scale Answer Date Recorded [place] Depression Scale Total 2 07/10/2021 The thought of harming myself has occurred to me . Never 07/10/2021 Comments Yes Sex and Gender Information Value Date Recorded Sex Assigned at Not on file Legal Sex Female 7:54 PM DIGITAL CONTENT MANAGER Gender Identity Not on file Sexual Orientation Not on file documented as of this encounter Miscellaneous Notes * Telephone Encounter - Pauline Campos RN - 02/24/2023 8:49 AM CST Images from the original note were not included. GDM: Current regimen: 02/21/2023 Lantus 10U morning TAL CONTENT MANAGER documented in this encounter Plan of Treatment Not on file documented as of this encounter Visit Diagnoses Not on filedocumented in this encounter Care Teams Housesmith Relationship Specialty Start Date End Date Judy Fishman NP [address] [place] [id number] PCP - General 07/31/18 Jessica Martínez MD [address] [place] [address] Consulting Physician Obstetrics and Gynecology 11/16/20 documented as of this encounter
--- OUTSIDE RECORDS SUMMARY | 2024-04-11 06:11 | XMS_ITS | Encounter Summary ---
Author Organization [facility] Address [address] [place] [address] Phone Care Team Providers Care Crap Shooter Name Role Phone Judy Fishman NP Primary Care Provider + Jessica Martínez MD Unavailable [phone] Reason for Referral * (Routine) - Pending Review Specialty Diagnoses / Procedures Referred By Contac t Referred To Contact Diagnoses Insulin controlled gestational diabetes mellitus (GDM) in second trimester Procedures nonstress test - Sharon Barry MD [address] [place] [address] [phone] [place] [address] Phone: tel: fax: [facility] (All Locations) Referral ID Status Reason Start Date Expiration Date V isits Requested Visits Authorized [id number] Pending Review 05/02/2023 05/31/2024 1 1 MOTIVE SWITCH OPERATOR Reason for Visit * Reason Comments Non-stress Test Encounter Details Date Type Department Care Team (Latest Contact Info) Description 05/02/2023 11:00 AM LOCOMOTIVE SWITCH OPERATOR Clinical Support [facility] Obstetrics and Gynecology [facility] 7th [place] [address] Insulin controlled gestational diabetes mellitus (GDM) in [...] often do you attend chur ch or methodist services? 1 to 4 times per year 05/31/2021 Do you belong to any clubs o r organizations such as spiritism groups, unions, fraternal or athletic groups, or [...] in a detention (including now)? No 05/31/2021 Kimberly Depression Scale Answer Date Recorded Kimberly Depression Scale Total 2 07/10/2021 The thought of harming myself has occurred to me . Never 07/10/2021 Personal Safety Answer Date Recorded Getting School Help Needed Denies 03/25 Comments Yes Sex and Gender Information Value Date Recorded Sex Assigned at Not on file Legal Sex Female 7:54 PM LOCOMOTIVE SWITCH OPERATOR Gender Identity Not on file Sexual Orientation Not on file documented as of this encounter Plan of Treatment Not on file documented as of this encounter Procedures Procedure Name Priority Date/Time Associated Diagnosis Comments NONSTRESS TEST Routine 05/02/2023 Insulin controlled gestational diabetes mellitus (GDM) in second trimester documented in this encounter Results * nonstress test - (05/02/2023) us Sharon Barry MD OB GYNE ORDERABLE S Final Result documented in this encounter Visit Diagnoses Diagnosis Insulin controlled gestational diabetes mellitus (GDM) in second trimester- Primary documented in this encounter Care Teams Crap Shooter Relationship Specialty Start Date End Date Judy Fishman NP [address] [address] PCP - General 07/31/18 Jessica Martínez MD [address] [address] Consulting Physician Obstetrics and Gynecology 11/16/20 documented as of this encounter
--- OUTSIDE RECORDS SUMMARY | 2024-04-11 06:11 | XMS_ITS | Encounter Summary ---
Author Organization [facility] Address [address] [place] [address] Phone Care Team Providers Care Cigar Head Stringer Name Role Phone Judy Fishman NP Primary Care Provider + Jessica Martínez MD Unavailable [phone] Encounter Details Date Type Department Care Team (Late st Contact Info) Description 03/13/2023 Orders Only [facility] Maternal- Medicine [facility] [address] [facility] [address] [place] [address] Rut Domínguez Social History Tobacco [...] often do you attend chur ch or samaritan services? 1 to 4 times per year 05/31/2021 Do you belong to any clubs o r organizations such as yazidism groups, unions, fraternal or athletic groups, or [...] slept in a long-term (including now)? No 05/31/2021 Liberty Depression Scale Answer Date Recorded Liberty Depression Scale Total 2 07/10/2021 The thought of harming myself has occurred to me . Never 07/10/2021 Comments Yes Sex and Gender Information Value Date Recorded Sex Assigned at Not on file Legal Sex Female 7:54 PM HOSPITALITY JOB TITLES Gender Identity Not on file Sexual Orientation Not on file documented as of this encounter Plan of Treatment Not on file documented as of this encounter Visit Diagnoses Not on filedocumented in this encounter Care Teams Cigar Head Stringer Relationship Specialty Start Date End Date Judy Fishman NP [address] [phone] PCP - General 07/31/18 Jessica Martínez MD [address] [phone] Consulting Physician Obstetrics and Gynecology 11/16/20 documented as of this encounter
--- OUTSIDE RECORDS SUMMARY | 2024-04-11 06:11 | XMS_ITS | Encounter Summary ---
Author Organization [facility] Address [address] [place] [address] Phone Care Team Providers Care Convenience Store Manager Name Role Phone Judy Fishman NP Primary Care Provider + Jessica Martínze MD Unavailable [phone] Reason for Visit * Reason Comments High Risk Gestation Encounter Details Date Type Department Care Team (Late st Contact Info) Description 04/18/2023 11:15 AM VEHICLE MONITOR TECHNICIAN Office Visit [facility] Maternal- Medicine [address] [facility] [facility] 7[address] [place] [address] Supervision of high-risk , third trimester (Primary Dx); Other specified diseases and conditions complicating ; Obesity in , antepartum; History of pre-eclampsia in prior , currently in third trimester; History of hemorrhage, currently ; Insulin controlled gestational diabetes mellitus (GDM) in [...] often do you attend chur ch or zoroastrian services? 1 to 4 times per year 05/31/2021 Do you belong to any clubs o r organizations such as scientology groups, unions, fraternal or athletic groups, or [...] place to sleep or slept in a penitentiary (including now)? No 05/31/2021 [place] Depression Scale Answer Date Recorded [place] Depression Scale Total 2 07/10/2021 The thought of harming myself has occurred to me . Never 07/10/2021 Personal Safety Answer Date Recorded Getting School Help Needed Denies 03/25 Comments Yes Sex and Gender Information Value Date Recorded Sex Assigned at Not on file Legal Sex Female 7:54 PM VEHICLE MONITOR TECHNICIAN Gender Identity Not on file Sexual Orientation Not on file documented as of this encounter Last Filed Vital Signs Vital Sign Reading Time Taken Comments Blood Pressure 128/85 04/18/2023 11:07 AM VEHICLE MONITOR TECHNICIAN Pulse 88 04/18/2023 11:07 AM VEHICLE MONITOR TECHNICIAN Temperature - - Respiratory Rate - - Oxygen Saturation 97% 04/18/2023 11:07 AM VEHICLE MONITOR TECHNICIAN Inhaled Oxygen Concentration - - Weight 110.7 kg (244 lb) 04/18/2023 11:07 AM VEHICLE MONITOR TECHNICIAN Height 157.5 cm (5' 2 ) 04/18/2023 11:07 AM VEHICLE MONITOR TECHNICIAN Body Mass Index 44.63 04/18/2023 11:07 AM VEHICLE MONITOR TECHNICIAN documented in this encounter Progress Notes * Erick Nava MD - 04/18/2023 11:15 AM CST MFM Return Visit 04/18/2023 Liliana Mancilla is a 32 y.o. at 35w0d who is here for a return OB visit. Her is complicated by GDMA2, history of GDM, Crohn's disease, obesity, history of delivery, history of LEEP, history of preeclampsia. . Subjective: She reports doing okay, LOF and cramping/pressure since yesterday. +FM, neg VB No Crohn's or PreE symptoms Objective: BP 128/85 Pulse 88 Ht 157.5 cm (5' 2 ) Wt 244 lb (110.7 kg) LMP 08/01/2022 SpO2 97% BMI44.63 kg/m?? General: NAD Ultrasound: 04/18/2023 35w0d EFW 67%tile, BPP 11/19 Assessment/Plan: Liliana Mancilla is a 32 y.o. at 35w0d with a complicated by: Problem List JONNATHAN [...] problem [] Mode of delivery: anticipate vaginal Obesity in , antepartum Overview - BMI: 44 - s/p counseling Plan [x] Specialized anatomy ultrasound [] Serial growth ultrasounds and testing per GDMA2 problem Other specified diseases and conditions complicating History of pre-eclampsia in prior , currently in third trimester Overview - s/p counseling Blood pressure log reviewed on 03/21/2023 Plan [x] Baseline CBC, CMP,- WNL UPC- 57 [x] Low dose aspirin daily starting at 12 weeks gestation until delivery Supervision of high-risk , third trimester - Primary Overview [x] Full MFM Care; [x] Blue Team Referring Provider: Trent Severino () [phone] [] Alorica or Medicare Insurance [x] Dating Criteria: LMP [...] her. [x] Method of feeding: Breast [x] Fiber Optic Central Office Installer: Pb [] PP Depression Discussed: Gestational diabetes [...] Plan [] Send weekly glucose log through [employer] for review [] Weekly testing - counseled weekly vs twice weekly testing. Pt prefers weekly for now due to work scheduled. movement precautions reviewed. [] Serial growth ultrasounds, next scheduled 04/18 [] Plan delivery by 39 weeks [] 2 hour gtt 6 weeks History of hemorrhage, currently Overview - In [...] problem [] Mode of delivery: anticipate vaginal RSV and COVID scheduled for tomorrow BGVs reviewed and at goal To [facility] for NST, labor/PPROM rule out, GBS as well. Report called to [facility] SQL DEVELOPER DBA Schedule 39wk IOL RV 2wks CLE MONITOR TECHNICIAN documented in this encounter Plan of Treatment Not on file documented as of this encounter Visit Diagnoses Diagnosis Supervision of high-risk , third trimester- Primary Other specified diseases and conditions complicating Obesity in , antepartum Obesity complicating , childbirth, or the puerperium, antepartum condition or complication History of pre-eclampsia in prior , currently in third trimester History of hemorrhage, currently with other poor obstetric history Insulin controlled gestational diabetes mellitus (GDM) in second trimester Crohn's disease of small intestine with other complication (HCC) documented in this encounter Care Teams Convenience Store Manager Relationship Specialty Start Date End Date Judy Fishman NP [address] [place] [address] PCP - General 07/31/18 Jessica Martínez MD [address] [place] [address] Consulting Physician Obstetrics and Gynecology 11/16/20 documented as of this encounter
--- OUTSIDE RECORDS SUMMARY | 2024-04-11 06:11 | XMS_ITS | Encounter Summary ---
Author Organization [facility] Address [address] [place] [address] Phone Care Team Providers Care Sheet Tester Name Role Phone Judy Fishman NP Primary Care Provider + Jessica Martínez MD Unavailable [phone] Reason for Visit * Reason Onset Date Comments Medical Records Request 04/30/2023 Cathi MCKEON review Encounter Details Date Type Department Care Team (Late st Contact Info) Description 04/30/2023 Telephone [facility] Gastroenterology [facility] 12th [place] [address] [place] [address] Hermelinda Don Medical Records Request (Cathi MCKEON review) Social History Tobacco Use Types Packs/Day Years [...] How often do you attend chur or caodaism services? 1 to 4 times per year [...] [place] [facility] (including now)? No 05/31/2021 [place] Depression Scale Answer Date Recorded [place] Depression Scale Total 2 07/10/2021 The thought of harming myself has occurred to me . Never 07/10/2021 Personal Safety Answer Date Recorded Getting School Help Needed Denies 03/25 Comments Yes Sex and Gender Information Value Date Recorded Sex Assigned at Not on file Legal Sex Female 7:54 PM LOFTSMAN Gender Identity Not on file Sexual Orientation Not on file documented as of this encounter Miscellaneous Notes * Telephone Encounter - Hermelinda Don - 04/30/2023 11:01 AM LOFTSMAN Rcv'd call from Rut at [facility] requesting updated clinical for Cathi auth renewal to be faxed to [phone]. Direct call back #[phone] for questions. I faxed 01/09/23 & 04/17/23 office notes along with 07/04/22 colonoscopy/pathology and labs including CBC, CMP, CRP, Hep B, Hep C, & TB results for review. SMAN documented in this encounter Plan of Treatment Not on file documented as of this encounter Visit Diagnoses Not on filedocumented in this encounter Care Teams Sheet Tester Relationship Specialty Start Date End Date Judy Fishman NP [address] [address] PCP - General 07/31/18 Jessica Martínez MD [address] [address] Consulting Physician Obstetrics and Gynecology 11/16/20 documented as of this encounter
--- OUTSIDE RECORDS SUMMARY | 2024-04-11 06:11 | XMS_ITS | Encounter Summary ---
Author Organization [facility] Address [address] [place] [address] Phone Care Team Providers Care Grab Operator Name Role Phone Judy Fishman NP Primary Care Provider + Jessica Martínez MD Unavailable [phone] Encounter Details Date Type Department Care Team (Late st Contact Info) Description 03/17/2023 Telephone [facility] Maternal- Medicine [facility] [address] [facility] [address] [place] [address] Rut Domínguez Social History Tobacco [...] often do you attend chur ch or baptism services? 1 to 4 times per year 05/31/2021 Do you belong to any clubs o r organizations such as druze groups, unions, fraternal or athletic groups, or [...] slept in a alf (including now)? No 05/31/2021 [place] Depression Scale Answer Date Recorded [place] Depression Scale Total 2 07/10/2021 The thought of harming myself has occurred to me . Never 07/10/2021 Comments Yes Sex and Gender Information Value Date Recorded Sex Assigned at Not on file Legal Sex Female 7:[address] SERVICE Gender Identity Not on file Sexual Orientation Not on file documented as of this encounter Miscellaneous Notes * Telephone Encounter - Rut Domínguez - 03/17/2023 9:13 AM CST Error [address]TER [address]RE[address] SERVICE documented in this encounter Plan of Treatment Not on file documented as of this encounter Visit Diagnoses Not on filedocumented in this encounter Care Teams Grab Operator Relationship Specialty Start Date End Date Judy Fishman NP [id number] [id number] PCP - General 07/31/18 Jessica Martínez MD [address] [address] Consulting Physician Obstetrics and Gynecology 11/16/20 documented as of this encounter
--- OUTSIDE RECORDS SUMMARY | 2024-04-11 06:11 | XMS_ITS | Encounter Summary ---
Author Organization [facility] Address [address] [place] [address] Phone Care Team Providers Care Street Light Servicer Helper Name Role Phone Judy Fishman NP Primary Care Provider + Jessica Martínez MD Unavailable [phone] Reason for Visit * Reason Comments High Risk Gestation Encounter Details Date Type Department Care Team (Latest Contact Info) Description 03/05/2023 4:30 PM SECURITY COMPLIANCE ENGINEER Office Visit [facility] Maternal- Medicine [address] [facility] 7th Floor [address] [place] [address] Insulin controlled gestational diabetes mellitus (GDM) in second trimester (Primary Dx); Crohn's disease of small intestine with other complication (HCC); History of loop electrosurgical excision procedure (LEEP) of cervix affecting in first trimester; History of hemorrhage, currently ; History of pre-eclampsia in prior , currently in first trimester; Obesity in , antepartum; Supervision of high-risk , first trimester Social History Tobacco Use Types Packs/Day [...] often do you attend chur ch or spiritism services? 1 to 4 times per year 05/31/2021 Do you belong to any clubs o r organizations such as pentecostalism groups, unions, fraternal or athletic groups, or [...] place to sleep or slept in a group home (including now)? No 05/31/2021 [place] Depression Scale Answer Date Recorded [place] Depression Scale Total 2 07/10/2021 The thought of harming myself has occurred to me . Never 07/10/2021 Comments Yes Sex and Gender Information Value Date Recorded Sex Assigned at Not on file Legal Sex Female 7:54 PM SECURITY COMPLIANCE ENGINEER Gender Identity Not on file Sexual Orientation Not on file documented as of this encounter Last Filed Vital Signs Vital Sign Reading Time Taken Comments Blood Pressure 129/79 03/05/2023 3:58 PM SECURITY COMPLIANCE ENGINEER Pulse 104 03/05/2023 3:58 PM SECURITY COMPLIANCE ENGINEER Temperature - - Respiratory Rate - - Oxygen Saturation 97% 03/05/2023 3:58 PM SECURITY COMPLIANCE ENGINEER Inhaled Oxygen Concentration - - Weight 110.2 kg (243 lb) 03/05/2023 3:58 PM SECURITY COMPLIANCE ENGINEER Height 157.5 cm (5' 2 ) 03/05/2023 3:58 PM SECURITY COMPLIANCE ENGINEER Body Mass Index 44.45 03/05/2023 3:58 PM SECURITY COMPLIANCE ENGINEER documented in this encounter Progress Notes * Qi Watkins MD - 03/05/2023 4:30 PM CST MFM Return Visit 03/05/2023 Liliana Mancilla is a 32 y.o. at 28w6d who is here for a return OB visit. Her is complicated by GDM with history of GDM, Crohn's disease, obesity, history of delivery, history of LEEP, history of preeclampsia. Subjective: She reports felling well, denies any vaginal bleeding, contractions, or leakage of fluid. Reports positive movement. She reports her Crohn's sx are well controlled when taking colace. She desires the RSV vaccine. BG has been high since she went to [employer] last night. Objective: BP 129/79 Pulse 104 Ht 157.5 cm (5' 2 ) Wt 243 lb (110.2 kg) LMP 08/01/2022 SpO2 97% BMI 44.45 kg/m?? General: NAD Heart: regular rate Lungs: non-labored respirations Ultrasound: Bedside - FHT present and wnl Assessment/Plan: Liliana Mancilla is a 32 y.o. at 28w6d with a complicated by history of GDM, Crohn's disease, obesity, history of delivery, history of LEEP, history of preeclampsia. Problem List Endocrine and Metabolic Gestational diabetes mellitus, with history of GDM - Primary Overview - History of GDM in G1 - Early screening with A1C, 5.7 on 10/04/22- follow- up 3hr normal - 3hr OGTT in 2T: 2/4 elevated (84, 183, 138, 143) Current regimen: 03/03/2023 Lantus 12 units---> 14 units in the evening S/p counseling Plan [] Send weekly glucose log through [employer] for review [] Twice weekly testing if medications needed [] Rate of growth ultrasounds [] Plan delivery by 39 weeks [] 2 hour gtt 6 weeks Current Assessment & Plan Has only taken 1 dose of increased lantus dose. Thus will continue for now. Reviewed how to transition from AM dosing to PM dosing and provided written schedule. Gastrointestinal and Abdominal Crohn's disease of small [...] weeks [] Mode of delivery: anticipate vaginal Current Assessment & Plan Well controlled. Gravid and Obesity in , antepartum Overview - BMI: 44 - s/p counseling Plan [x] Early A1C- 5.7 on 10/04/22 [x] Specialized anatomy ultrasound [] Serial growth ultrasounds q4 weeks starting at 24 weeks, next due in 4 weeks [] Weekly testing per history of preeclampsia History of pre-eclampsia in prior , currently in first trimester Overview - s/p counseling Plan [] testing weekly starting at 32 weeks (previous preeclampsia required delivery) [x] Baseline CBC, CMP,- WNL UPC- pending [x] Low dose aspirin daily starting at 12 weeks gestation until delivery Current Assessment & Plan BP at goal today. Supervision of high-risk , first trimester Overview [x] Full MFM Care; [x] Blue Team Referring Provider: Trent Severino (GI) [phone] [] or Medicare Insurance [x] Dating Criteria: [...] her. [x] Method of feeding: Breast [x] Project Development Manager: Pb [] PP Depression Discussed: History of loop electrosurgical excision procedure (LEEP) [...] 09/2022 -Consider T&C at time of delivery Summary of visit: -Continue Lantus 14, but will plan to switch to nighttime dosing per patient preference, reviewed how to transition and provided written schedule -Reviewed RSV vaccine and recommendations to separate from Entyvio injections -Reviewed pre-eclampsia precautions RTC 2wks w/ growth US Patient was seen and discussed with Dr. Barry. Qi Watkins MD [facility] Fellow Cosigned by Sharon Barry MD at 03/12/2023 8:22 PM SECURITY COMPLIANCE ENGINEER RITY COMPLIANCE ENGINEER RITY COMPLIANCE ENGINEER RITY COMPLIANCE ENGINEER Associated attestation - Sharon Barry MD - 03/12/2023 8:22 PM SECURITY COMPLIANCE ENGINEER Attending Attestation I have seen, examined, and discussed Liliana Mancilla with Dr. Watkins on 03/05/2023. I agree with the findings and the plan of care as documented. documented in this encounter Miscellaneous Notes * Assessment & Plan Note - Qi Watkins MD - 03/06/2023 1:18 AM SECURITY COMPLIANCE ENGINEER Associated Problem(s): History of pre-eclampsia in prior , currently in third trimester (Resolved 06/24/2023) BP at goal today. RITY COMPLIANCE ENGINEER * Assessment & Plan Note - Qi Watkins MD - 03/06/2023 1:18 AM SECURITY COMPLIANCE ENGINEER Associated Problem(s): Crohn's disease of small intestine with other complication (HCC) Well controlled. RITY COMPLIANCE ENGINEER * Assessment & Plan Note - Qi Watkins MD - 03/06/2023 1:17 AM SECURITY COMPLIANCE ENGINEER Associated Problem(s): Gestational diabetes mellitus, with history of GDM (Resolved 06/24/2023) Has only taken 1 dose of increased lantus dose. Thus will continue for now. Reviewed how to transition from AM dosing to PM dosing and provided written schedule. RITY COMPLIANCE ENGINEER documented in this encounter Plan of Treatment Not on file documented as of this encounter Visit Diagnoses Diagnosis Insulin controlled gestational diabetes mellitus (GDM) in second trimester- Primary Crohn's disease of small intestine with other complication (HCC) History of loop electrosurgical excision procedure (LEEP) of cervix affecting in first trimester History of hemorrhage, currently with other poor obstetric history History of pre-eclampsia in prior , currently in first trimester Obesity in , antepartum Obesity complicating , childbirth, or the puerperium, antepartum condition or complication Supervision of high-risk , first trimester documented in this encounter Care Teams Street Light Servicer Helper Relationship Specialty Start Date End Date Judy Fishman NP [address] [id number] PCP - General 07/31/18 Jessica Martínez MD [address] [address] Consulting Physician Obstetrics and Gynecology 11/16/20 documented as of this encounter
--- OUTSIDE RECORDS SUMMARY | 2024-04-11 06:11 | XMS_ITS | Encounter Summary ---
Author Organization [facility] Address [address] [place] [address] Phone Care Team Providers Care Cardiac Nurse Practitioner Name Role Phone Judy Fishman NP Primary Care Provider + Jessica Martínez MD Unavailable [phone] Reason for Visit * Reason Onset Date Comments MFM GLUCOSE LOGS 03/03/2023 Encounter Details Date Type Department Care Team (Late st Contact Info) Description 03/03/2023 Telephone [facility] Maternal- Medicine [facility] [address] [facility] [address] [place] [address] Rut Domínguez MFM GLUCOSE LOGS Social History Tobacco Use Types Packs/Day Years [...] How often do you attend chur or baptist services? 1 to 4 times per year [...] a care home (including now)? No 05/05/2023 [place] Depression Scale Answer Date Recorded [place] Depression Scale Total 2 07/10/2021 The thought of harming myself has occurred to me . Never 07/10/2021 Personal Safety Answer Date Recorded Getting School Help Needed Denies 03/25 Comments Yes Sex and Gender Information Value Date Recorded Sex Assigned at Not on file Legal Sex Female 7:54 PM HEAVY THREADER Gender Identity Not on file Sexual Orientation Not on file documented as of this encounter Miscellaneous Notes * Telephone Encounter - Pauline Campos RN - 05/05/2023 8:32 AM CST Images from the original note were not included. GDM; Glucose log reviewed, overall WNL. No changes, pt notified. Current regimen: 05/02/2023- encouraged to be more consistent with checking after meal values Lantus 24 units every night Continue an evening walk and high protein snack. Keep food log for breakfast Y THREADER * Telephone Encounter - Rut Domínguez - 04/28/2023 1:07 PM CST Images from the original note were not included. GDM: Current log reviewed, overall wnl, no changes. Current regimen: 04/21/2023- encouraged to be more consistent with checking after meal values Lantus 24 units every night Continue an evening walk and high protein snack. Keep food log for breakfast Time Taken Time Submitted Fasting Glucose (mg/dL) (mg/dL) Breakfast Food Log After Breakfast Glucose (mg/dL) Lunch Food Log After Lunch Glucose (mg/dL) Dinner Food Log After Dinner Glucose (mg/dL) Bedtime Snack Food Log 04/28/2023 7:58 AM 04/28/2023 7:58 AM 110 04/28/2023 5:57 AM 04/28/2023 5:58 AM 90 04/27/2023 7:22 PM 04/27/2023 7:22 PM 128 118 137 04/27/2023 7:59 AM 04/27/2023 7:59 AM 92 04/26/2023 8:34 PM 04/26/2023 8:34 PM 132 125 04/26/2023 10:55 AM 04/26/2023 10:56 AM 88 126 04/25/2023 7:00 AM 04/25/2023 7:00 AM 87 04/24/2023 5:11 PM 04/24/2023 5:11 PM 130 04/24/2023 7:16 AM 04/24/2023 7:17 AM 2 rice cakes w peanut butter 140 04/24/2023 6:00 AM 04/24/2023 6:00 AM 94 04/23/2023 1:45 PM 04/23/2023 1:45 PM 134 04/23/2023 7:17 AM 04/23/2023 7:17 AM 2 rice cakes w peanut butter 127 04/23/2023 6:05 AM 04/23/2023 6:06 AM 90 04/22/2023 9:38 AM 04/22/2023 9:38 AM 85 2 rice cakes w peanut butter 143 Y THREADER * Telephone Encounter - Rut Domínguez - 04/21/2023 8:20 AM CST Images from the original note were not included. GDM: Current log reviewed, <50% elevated, continue current plan. Current regimen: 04/15/2023- encouraged to be more consistent with checking after meal values Lantus 24 units every night Continue an evening walk and high protein snack. Keep food log for breakfast Y THREADER * Telephone Encounter - Rut Domínguez - 04/15/2023 10:00 AM CST Images from the original note were not included. GDM: Current log reviewed, overall wnl, no changes. Current regimen: 04/08/2023- encouraged to be more consistent with checking after meal values Lantus 24 units every night Continue an evening walk and high protein snack. Keep food log for breakfast Y THREADER * Telephone Encounter - Pauline Campos RN - 04/08/2023 1:05 PM CST Images from the original note were not included. GDM: Glucose log reviewed, overall WNL. No changes, pt notified. Will encourage that she continue to take and record after meal values consistently Y THREADER * Telephone Encounter - Pauline Campos RN - 03/31/2023 8:36 AM CST Images from the original note were not included. GDM: Glucose log reviewed, overall WNL. No changes, pt notified. Current regimen: 03/24/2023 Lantus 20 units every night Continue an evening walk and high protein snack. Keep food log for breakfast Y THREADER * Telephone Encounter - Rut Domínguez - 03/24/2023 9:25 AM CST Images from the original note were not included. GDM: Current log reviewed, <50% elevated, no changes. Current regimen: 03/17/2023 Lantus 18 units---> 20 units in the evening Continue an evening walk and high protein snack. Keep food log for breakfast Y THREADER * Telephone Encounter - Rut oDmínguez - 03/17/2023 8:18 AM CST Images from the original note were not included. GDM: Current regimen: 03/10/2023 Lantus 14 units---> 18 units in the evening Add an evening walk and high protein snack Y THREADER * Telephone Encounter - Rut Domínguez - 03/10/2023 7:54 AM CST Images from the original note were not included. GDM: Current regimen: 03/03/2023 Lantus 12 units---> 14 units in the morning Y THREADER * Telephone Encounter - Rut Domínguez - 03/03/2023 8:07 AM CST Images from the original note were not included. GDM: Current regimen: 02/24/2023 Lantus 10 units---> 12 units in the morning Y THREADER documented in this encounter Plan of Treatment Not on file documented as of this encounter Visit Diagnoses Not on filedocumented in this encounter Care Teams Cardiac Nurse Practitioner Relationship Specialty Start Date End Date Judy Fishman NP [address] [place] [address] PCP - General 07/31/18 Jessica Martínez MD [address] [place] [address] Consulting Physician Obstetrics and Gynecology 11/16/20 documented as of this encounter
--- OUTSIDE RECORDS SUMMARY | 2024-04-11 06:11 | XMS_ITS | Encounter Summary ---
Author Organization [facility] Address [address] [place] [address] Phone Care Team Providers Care Machine Sander Name Role Phone Judy Fishman NP Primary Care Provider + Jessica Martínez MD Unavailable [phone] Reason for Referral * (Routine) - Pending Review Specialty Diagnoses / Procedures Referred By Contac t Referred To Contact Diagnoses Gestational diabetes mellitus (GDM) in third trimester, gestational diabetes method of control unspecified Obesity in , antepartum Procedures nonstress test - Jane Hunter MD [facility] [id number] [place] [address] Phone: tel: fax: [facility] (All Locations) Referral ID Status Reason Start Date Expiration Date V isits Requested Visits Authorized [id number] Pending Review 04/25/2023 05/24/2024 1 1 ADMINISTRATOR Reason for Visit * Reason Comments Non-stress Test Encounter Details Date Type Department Care Team (Latest Contact Info) Description 04/25/2023 9:00 AM UNIX ADMINISTRATOR Clinical Support [facility] Obstetrics and Gynecology [facility] 7th [place] [address] Gestational diabetes mellitus (GDM) in third trimester, gestational diabetes method of control unspecified (Primary Dx); Obesity in , antepartum Social History Tobacco Use Types Packs/Day Years [...] often do you attend chur ch or church services? 1 to 4 times per year 05/31/2021 Do you belong to any clubs o r organizations such as hoahaoism groups, unions, fraternal or athletic groups, or [...] in a assisted (including now)? No 05/31/2021 [place] Depression Scale Answer Date Recorded [place] Depression Scale Total 2 07/10/2021 The thought of harming myself has occurred to me . Never 07/10/2021 Personal Safety Answer Date Recorded Getting School Help Needed Denies 03/25 Comments Yes Sex and Gender Information Value Date Recorded Sex Assigned at Not on file Legal Sex Female 7:54 PM UNIX ADMINISTRATOR Gender Identity Not on file Sexual Orientation Not on file documented as of this encounter Plan of Treatment Not on file documented as of this encounter Procedures Procedure Name Priority Date/Time Associated Diagnosis Comments NONSTRESS TEST Routine 04/25/2023 12:33 PM UNIX ADMINISTRATOR Gestational diabetes mellitus (GDM) in third trimester, gestational diabetes method of control unspecified Obesity in , antepartum documented in this encounter Results * nonstress test - (04/25/2023 12:33 PM UNIX ADMINISTRATOR) Jane Hunter MD OB GYNE ORDERABLE S Final Result documented in this encounter Visit Diagnoses Diagnosis Gestational diabetes mellitus (GDM) in third trimester, gestational diabetes method of control unspecified- Primary Obesity in , antepartum Obesity complicating , childbirth, or the puerperium, antepartum condition or complication documented in this encounter Care Teams Machine Sander Relationship Specialty Start Date End Date Judy Fishman NP [address] [address] PCP - General 07/31/18 Jessica Martínez MD [address] [address] Consulting Physician Obstetrics and Gynecology 11/16/20 documented as of this encounter
--- OUTSIDE RECORDS SUMMARY | 2024-04-11 06:11 | XMS_ITS | Encounter Summary ---
Author Organization [facility] Address [address] [place] [address] Phone Care Team Providers Care Heel Former Name Role Phone Judy Fishman NP Primary Care Provider + Jessica Martínez MD Unavailable [phone] Reason for Visit * Reason Onset Date Comments Treatment Plan Update 01/20/2023 Encounter Details Date Type Department Care Team (Late st Contact Info) Description 01/20/2023 Documentation [facility] Gastroenterology [address] [place] [address] Medical [address] [place] [address] Abiola Silverman, [place] Treatment Plan Update Social History Tobacco Use Types Packs/Day Years [...] often do you attend chur ch or denominational services? 1 to 4 times per year 05/31/2021 Do you belong to any clubs o r organizations such as protestant groups, unions, fraternal or athletic groups, or [...] slept in a longterm (including now)? No 05/31/2021 [place] Depression Scale Answer Date Recorded [place] Depression Scale Total 2 07/10/2021 The thought of harming myself has occurred to me . Never 07/10/2021 Comments Yes Sex and Gender Information Value Date Recorded Sex Assigned at Not on file Legal Sex Female 7:54 PM CUT FILER Gender Identity Not on file Sexual Orientation Not on file documented as of this encounter Progress Notes * Abiola SilvermanRU - 01/20/2023 3:48 PM CDT Per [place]: - agree w/ alexandra's plan documented in this encounter Plan of Treatment Not on file documented as of this encounter Visit Diagnoses Not on filedocumented in this encounter Care Teams Heel Former Relationship Specialty Start Date End Date Judy Fishman NP [address] [place] [address] PCP - General 07/31/18 Jessica Martínez MD [address] [place] [address] Consulting Physician Obstetrics and Gynecology 11/16/20 documented as of this encounter
--- OUTSIDE RECORDS SUMMARY | 2024-04-11 06:11 | XMS_ITS | Encounter Summary ---
Author Organization [facility] Address [address] [place] [address] Phone Care Team Providers Care Pr Internship Name Role Phone Judy Fishman NP Primary Care Provider + Jessica Martínez MD Unavailable [phone] Encounter Details Date Type Department Care Team (Late st Contact Info) Description 04/03/[address] [facility] Maternal- Medicine [facility] [address] [facility] [address] [place] [address] Pauline Campos RN Supervision of high-risk , first trimester (Primary Dx) Social History Tobacco Use [...] often do you attend chur ch or synagogue services? 1 to 4 times per year 05/31/2021 Do you belong to any clubs o r organizations such as pentecostal groups, unions, fraternal or athletic groups, or [...] slept in a residential (including now)? No 05/31/2021 [place] Depression Scale Answer Date Recorded [place] Depression Scale Total 2 07/10/2021 The thought of harming myself has occurred to me . Never 07/10/2021 Personal Safety Answer Date Recorded Getting School Help Needed Denies 03/25 Comments Yes Sex and Gender Information Value Date Recorded Sex Assigned at Not on file Legal Sex Female 7:54 PM LAB TECH Gender Identity Not on file Sexual Orientation Not on file documented as of this encounter Plan of Treatment Scheduled Orders Name Type Priority Associated Diagnoses Orde r Schedule HIV 1/2 Antibody plus p24 Antigen Blood Microbiology Routine Supervision of high-risk , first trimester Expected: 04/03/2023, Expires: 04/03/2024 CBC without differential Lab Routine Supervision of high-risk , first trimester Expected: 04/03/2023, Expires: 04/03/2024 RPR Blood Microbiology Routine Supervision of high-risk , first trimester Expected: 04/03/2023, Expires: 04/03/2024 documented as of this encounter Visit Diagnoses Diagnosis Supervision of high-risk , first trimester- Primary documented in this encounter Care Teams Pr Internship Relationship Specialty Start Date End Date Judy Fishman NP [address] [address] PCP - General 07/31/18 Jessica Martínez MD [address] [address] Consulting Physician Obstetrics and Gynecology 11/16/20 documented as of this encounter
--- OUTSIDE RECORDS SUMMARY | 2024-04-11 06:11 | XMS_ITS | Encounter Summary ---
Author Organization [facility] Healthcare Address [address] [place] [address] Care Team Providers Care Medical Director Name Role Phone Judy Fishman NETWORK SYSTEMS ADMINISTRATOR Primary Care Provider + Jessica Martínez MD Unavailable Reason for Visit * Reason Comments Hypertension Encounter Details Date Type Department Care Team (Latest Contact Info) Description 04/15/2023 9:19 AM COVER CREASER - 04/15/2023 12:40 PM COVER CREASER Hospital Encounter [address] [address] Eda Cevallos MD [address] [facility] [id number] [place] [address] Discharge Disposition: Discharge to home or self [...] week 05/31/2021 How often do you attend [facility] or mormonism services? 1 to 4 times per year 05/31/2021 Do you belong to any clubs o r organizations such as sabianist groups, unions, fraternal or athletic groups, or [...] in a alf (including now)? No 05/31/2021 [place] Depression Scale Answer Date Recorded [place] Depression Scale Total 2 07/10/2021 The thought of harming myself has occurred to me . Never 07/10/2021 Personal Safety Answer Date Recorded Getting School Help Needed Denies 03/25 Comments Yes Sex and Gender Information Value Date Recorded Sex Assigned at Not on file Legal Sex Female 7:54 PM COVER CREASER Gender Identity Not on file Sexual Orientation Not on file documented as of this encounter Last Filed Vital Signs Vital Sign Reading Time Taken Comments Blood Pressure 107/62 04/15/2023 11:07 AM COVER CREASER Pulse 77 04/15/2023 11:07 AM COVER CREASER Temperature 36.7 ??C (98.1 ??F) 04/15/2023 9:29 AM CS T Respiratory Rate 16 04/15/2023 9:29 AM COVER CREASER Oxygen Saturation 98% 04/15/2023 10: 52 AM COVER CREASER Inhaled Oxygen Concentration - - Weight 113.1 kg (249 lb 4.8 oz) 04/15/2023 9:29 AM COVER CREASER Height 157.5 cm (5' 2 ) 04/15/2023 9:29 AM COVER CREASER Body Mass Index 45.6 04/15/2023 9:29 AM COVER CREASER documented in this encounter Discharge Instructions * Discharge Instr - Activity* Chyna Wise, RN - 04/15/2023 12:17 PM COVER CREASER Please follow up with OB at next scheduled appt Take medications as prescribed PreE Precautions discussed R CREASER * Discharge Instr - Diet* Chyna Wise, RN - 04/15/2023 12:17 PM COVER CREASER Regular diet, please drink 8-10 glasses of water a day R CREASER * Attachments The following attachments cannot be sent through Care Everywhere. * Preeclampsia During (Discharge Care) (Korean) documented in this encounter Medications at Time [...] 15 mL 3 02/21/2023 lancets 33 gauge [facility] CHECK GLUCOSE FASTING AND ONE HOUR AFTER EACH MEAL AND NEEDED, UP TO 8 TIMES PER WEEK 200 each 6 02/10/2023 pen needle, diabetic 33 gauge x /32 needle 1 INJECTIONS DAILY DIRECTED 100 each 2 02/21/2023 vit no.124/iron/foli c ( VITAMIN ORAL) Take by mouth vedolizumab (ENTYVIO) 300 mg recon soln 5 mL (300 mg total) documented as of this encounter Discharge Disposition Disposition Code Departure Means Destination Discharge to home or self care documented in this encounter H&P Notes * Maig Gonzalez MD - 04/15/2023 9:30 AM CST Obstetrics H&P Chief Complaint: elevated BP at home & work this morning Estimated Date of Delivery: 05/23/23 Provider: YOUNG HPI: Liliana Mancilla is a 32 y.o. female at 34w4d gestation, dated by 1st trimester ultrasound. She presents to the [facility] with elevated BP at home x2 and then once at work. (131/95, 120s/91 & 125/102). Has had a headache this morning, took Tylenol 500mg at 7am, rates headache currently rates pain 4/10, but initially was a 6/10. She says on the way here was seeing some floaters in the right eye. Explains headache is in the right temporal area. Denies a history of migraines. Denies any N/V, swelling or RUQ tenderness. Denies any ctx, LOF, or vaginal bleeding. Says she has had some cramping in the RLQ. Endorses +FM. Denies any dysuria and takes colace for constipation. Denies any recent sick contacts. Her is complicated by PTD IOL at 36w5d for pre-E, hx LEEP, hx GDM, hx PPH, obesity, and crohn's Patient Denies: [x] Contractions [x] Shortness of Breath [x] Nausea/Vomitting [x] Vaginal Bleeding [] Headache [x] Abdominal Pain [x] Leaking of Fluid [] Visual changes [x] Decreased Movement OB History [...] Name: GAYLA MANCILLA Apgar1: 8 Apgar5: 9 LABORATORY TECHNICAL SPECIALIST History: Patient's last menstrual period was 08/01/2022. History of Abnormal Pap: Yes, 2014 had a LEEP, been normal since STD History: none Past Medical History: Diagnosis [...] iron on d/c. # CV/Pulm: Chronic hypertension: No, takes a ASA 81mg Diabetes: Yes, GDM takes insulin lantus 24units @ HS Asthma: No Past Surgical History: Procedure Laterality [...] Not on file Support System: Supported by significant other Safe at home: Yes family history includes [...] except per HPI Vitals: Temp: [36.7 ??C (98.1 ??F)] 36.7 ??C (98.1 ??F) Pulse: [77-104] 77 Resp: [16] 16 BP: (105-128)/(60-78) 107/62 Physical Exam: General: NAD, mood appropriate Cardiovascular: Regular rate and rhythm Pulmonary: unlabored Abdomen: Gravid, non-tender Extremities: Warm and well perfused Speculum Exam: deferred Cervix: deferred Monitoring: Baseline: 115 bpm, Variability: Moderate, Accelerations: Present and Decelerations: None Uterine Activity: No contractions seen on toco Interpretation: Reactive Labs: Lab Results Component Value Date ABORH B Positive 10/04/2022 IDCOOMB Negative 10/04/2022 [id number] Nonreactive 10/04/2022 [id number] NON-REACTIVE 05/25/2021 LABRPR Nonreactive 10/04/2022 RUBELIGG Reactive 10/04/2022 HEPBSAG Nonreactive 10/04/2022 GBS neg 05/24/2021 VZVIGG Reactive 10/04/2022 Recent Results (from the past 12 hour(s)) CBC with auto differential Collection Time: 04/15/23 9:50 AM Result Value Ref Range WBC 12.7 (H) 3.8 - 9.9 K/cumm Hgb 10.7 (L) 11.9 - 15.5 g/dL Hct 32.4 (L) 35.6 - 45.5 % Plt 276 150 - 400 K/cumm MPV 10.6 9.1 - 12.3 fL RBC 4.00 3.90 - 5.20 M/cumm MCV 81.0 (L) 81.3 - 96.4 fL MCH 26.8 (L) 27.1 - 33.3 pg MCHC 33.0 32.3 - 35.7 g/dL RDW CV 13.6 11.1 - 14.9 % RDW SD 39.5 35.7 - 48.1 fL NRBC abs 0.00 0.00 - 0.01 K/cumm Comprehensive metabolic panel Collection Time: 04/15/23 9:50 AM Result Value Ref Range Sodium 137 135 - 145 mmol/L Potassium, pl 3.7 3.3 - 4.9 mmol/L Chloride 104 97 - 110 mmol/L CO2 24 22 - 32 mmol/L Anion gap 9 2 - 15 mmol/L BUN 6 6 - 25 mg/dL Creatinine 0.47 (L) 0.60 - 1.10 mg/dL Glucose 73 70 - 199 mg/dL Calcium 8.8 8.5 - 10.3 mg/dL Bilirubin, total 0.2 0.1 - 1.2 mg/dL Protein, pl 7.1 6.5 - 8.5 g/dL Albumin 3.4 (L) 3.5 - 5.0 g/dL Alk phos 90 40 - 130 Units/L ALT 9 7 - 45 Units/L AST 14 10 - 45 Units/L Differential, auto Collection Time: 04/15/23 9:50 AM Result Value Ref Range Neutrophil abs 9.5 (H) 1.5 - 6.5 K/cumm Imm gran abs 0.1 0.0 - 0.1 K/cumm Lymphocyte abs 2.5 0.8 - 3.3 K/cumm Monocyte abs 0.5 0.2 - 0.8 K/cumm Eosinophil abs 0.1 0.0 - 0.5 K/cumm Basophil abs 0.0 0.0 - 0.1 K/cumm Neutrophil pct 74.6 % Imm gran pct 0.5 % Lymphocyte pct 19.7 % Monocyte pct 4.2 % Eosinophil pct 0.8 % Basophil pct 0.2 % eGFR Collection Time: 04/15/23 9:50 AM Result Value Ref Range eGFR >90 >=60 mL/min/1.73 m2 Protein / creatinine ratio, urine, random Collection Time: 04/15/23 10:26 AM Result Value Ref Range Protein, ur, quant 8.0 mg/dL Creatinine Ur 63.5 mg/dL Protein/creatinine ratio 126.0 0.0 - 180.0 mg/g CR POCT urinalysis (Clinitek) Collection Time: 04/15/23 10:28 AM Result Value Ref Range Color, ur, POC Yellow Yellow Clarity, UA, POC Clear Clear Glucose, ur, POC Negative Negative Bilirubin, ur, POC Negative Negative Ketones, ur, POC Negative Negative Specific gravity, ur, POC 1.020 1.010 - 1.025 Blood, ur, POC Trace (A) Negative pH, ur, POC 7.0 Protein, ur, POC Negative Negative Urobilinogen, ur, POC 0.2 mg/dL mg/dL Nitrites, ur, POC Negative Negative Leukocyte esterase, ur, POC 1+ (A) Negative POCT glucose Collection Time: 04/15/23 11:02 AM Result Value Ref Range Glucose, POC 70 70 - 199 mg/dL Assessment and Plan #R/O Pre-E - VSS serial BP (105-128/60-78) - Headache - relieved - Tylenol 1gm given in [facility] - Pain 4/10 -> 0/10 - Denies RUQ tenderness - Denies N/V - Swelling unremarkable - CBC - H/H 10.7/32.4, PLT 276 - CMP - unremarkable - UPC - 0.1 - urine dipstick - sp gr 1.020, pH 7.0, protein neg, ketones neg, nitrites neg, leukocyte 1+, bloodtrace - POCT glucose - 70 #FWB - Reactive FHTs - Endorses + FM Plan discussed with Dr. Gonzalez. Patient to continue taking medications as prescribed, follow up with clinic/US on 04/18/23. Strict return precautions given. Patient had no further questions, verbalized understanding of discharge plan/instructions and was DCd home in Stable condition. Judy Montoya NP 04/15/23 MFM Fellow Attestation I have seen and discussed Liliana Mancilla with Judy Montoya NETWORK SYSTEMS ADMINISTRATOR on 04/15/2023. I have evaluated the patient and reviewed the treatment plan and recommendations. I agree with the findings and the plan of care as documented in the above note with the following addendum: Briefly, this is a 32 y.o. at 34w4d with complicated by history of PEC at 36w in prior , history of LEEP, history of GDM, obesity, and Crohn's disease. She presents today after having mild range BPs at home this morning as well as a headache. Headache resolved in [facility] with Tylenol, and all normotensive BPs noted in [facility]. PEC labs wnl. Discussed with patient PEC precautions, but does not meet criteria atthis time. Plan for d/c home with outpatient follow up scheduled on Friday. Plans to bring BP cuff to her appt for calibration. Strict return precautions discussed. Magi Gonzalez MD Maternal- Medicine Fellow, PGY-5 Cosigned by Eda Cevallos MD at 04/15/2023 10:30 PM COVER CREASER R CREASER R CREASER R CREASER Associated attestation - Eda Cevallos MD - 04/15/2023 10:30 PM COVER CREASER The resident/fellow saw and examined the patient, we discussed their findings, and I am in agreement with the plan based on the discussion with the resident/fellow. I did not personally examine the patient. Eda Cevallos MD 04/15/2023 documented in this encounter Procedure Notes * Judy Montoya NP - 04/15/2023 12:26 PM CST Procedures Monitoring: Baseline: 115 bpm, Variability: Moderate, Accelerations: Present and Decelerations: None Uterine Activity: No contractions seen on toco Interpretation: Reactive Judy Montoya NP 04/15/2023 Cosigned by Eda Cevallos MD at 04/15/2023 4:09 PM COVER CREASER R CREASER R CREASER documented in this encounter Plan of Treatment Not on file documented as of this encounter Procedures Procedure Name Priority Date/Time Associated Diagnosis Comments POCT GLUCOSE DEVICE Routine 04/15/2023 1 1:02 AM COVER CREASER POCT URINALYSIS (CLINITEK) Routine 04/15/2023 10:28 AM COVER CREASER PROTEIN / CREATININE RATIO, URINE, RANDOM STAT 04/15/2023 10:26 AM COVER CREASER EGFR STAT 04/15/2023 9:50 AM COVER CREASER DIFFERENTIAL AUTO STAT 04/15/2023 9:5 0 AM COVER CREASER CBC WITH AUTO DIFFERENTIAL STAT 04/15/2023 9:50 AM COVER CREASER COMPREHENSIVE METABOLIC PANEL STAT 04/15/2023 9:50 AM COVER CREASER documented in this encounter Results * POCT glucose (04/15/2023 11:02 AM COVER CREASER) Glucose, POC 70 70 - 199 mg/dL [facility] Blood 04/15/2023 11:0 2 AM COVER CREASER 04/15/2023 11:02 AM COVER CREASER Eda Cevallos MD LAB POCT ORDERABLES - JACE CE Final [facility] [place] [address] * (ABNORMAL) POCT urinalysis (Clinitek) (04/15/2023 10:28 AM COVER CREASER) Color, ur, POC Yellow Yellow [facility] Clarity, UA, POC Clear Clear CERNER [facility] Glucose, ur, POC Negative Negative CERNER [facility] Bilirubin, ur, POC Negative Negative [facility] Ketones, ur, POC Negative Negative CERNER [facility] Specific gravity, ur, POC 1.020 1.010 - 1.025 CERNER [facility] Blood, ur, POC Trace(A) Negative [facility] pH, ur, POC 7.0 [facility] Comment: Interpretive Data Urine pH is affected by diet, medications, systemic acid-base disturbances, and renal tubular function. pH may affect urinary stone formation. For example, urine pH below 6.0 may help reduce the tendency for calcium phosphate stones and pH greater than 6.0 may reduce the tendency for uric acid stone formation. Source: [facility] [employer]. Last Revised Date: 04-24-2017 Protein, ur, POC Negative Negative [facility] Urobilinogen, ur, POC 0.2 mg/dL mg/dL [facility] Nitrites, ur, POC Negative Negative [facility] Leukocyte esterase, ur, POC 1+(A) Negative [facility] Urine 04/15/2023 10:2 8 AM COVER CREASER 04/15/2023 10:28 AM COVER CREASER Eda Cevallos MD LAB POCT ORDERABLES - JACE CE Final Result RAIZA ABDALLA [facility] [place] [address] * Protein / creatinine ratio, urine, random (04/15/2023 10:26 AM COVER CREASER) Protein, ur, quant 8.0 mg/dL [facility] Comment: Interpretive Data No reference range established. Current interpretive data was last revised 2018. Creatinine Ur 63.5 mg/dL [facility] Comment: Interpretive Data No reference range established. Current interpretive data was last revised 2018. Protein/creatinin e ratio 126.0 0.0 - 180.0 mg/g CR [facility] Urine 04/15/2023 10:2 6 AM COVER CREASER 04/15/2023 10:46 AM COVER CREASER us Judy Montoya NP LAB URINE ORDERABLES Cee yanes Result [facility] Department [place] [address] * eGFR (04/15/2023 9:50 AM COVER CREASER) eGFR >90 >=60 mL/min/1. 73 m2 [facility] Comment: Interpretive Data Reference Interval Normal [...] interpretive data was last reviewed 2021. Blood 04/15/2023 9:50 AM COVER CREASER 04/15/2023 10:12 AM COVER CREASER us Judy Montoya NETWORK SYSTEMS ADMINISTRATOR LAB BLOOD ORDERABLES Cee yanes Result [facility] [place] [address] * (ABNORMAL) Differential, auto (04/15/2023 9:50 AM COVER CREASER) Neutrophil abs 9.5(H) 1.5 - 6.5 K/cumm [facility] Imm gran abs 0.1 0.0 - 0.1 K/cumm [facility] Lymphocyte abs 2.5 0.8 - 3.3 K[facility]umm [facility] Monocyte abs 0.5 0.2 - 0.8 K/cumm [facility] Eosinophil abs 0.1 0.0 - 0.5 K/cumm [facility] Basophil abs 0.0 0.0 - 0.1 K/cumm [facility] Neutrophil pct 74.6 % [facility] Comment: Interpretive Data Percent cell count reference ranges are not reported, since discordance with absolute values may lead to misinterpretation of CBC data. Current Interpretive Data was last revised on 2017. Imm gran pct 0.5 % [facility] Comment: Interpretive Data Percent cell count reference ranges are not reported, since discordance with absolute values may lead to misinterpretation of CBC data. Current Interpretive Data was last revised on 2017. Lymphocyte pct 19.7 % [facility] Comment: Interpretive Data Percent cell count reference ranges are not reported, since discordance with absolute values may lead to misinterpretation of CBC data. Current Interpretive Data was last revised on 2017. Monocyte pct 4.2 % [facility] Comment: Interpretive Data Percent cell count reference ranges are not reported, since discordance with absolute values may lead to misinterpretation of CBC data. Current Interpretive Data was last revised on 2017. Eosinophil pct 0.8 % [facility] Comment: Interpretive Data Percent cell count reference ranges are not reported, since discordance with absolute values may lead to misinterpretation of CBC data. Current Interpretive Data was last revised on 2017. Basophil pct 0.2 % [facility] Comment: Interpretive Data Percent cell count reference ranges are not reported, since discordance with absolute values may lead to misinterpretation of CBC data. Current Interpretive Data was last revised on 2017. Blood 04/15/2023 9:50 AM COVER CREASER 04/15/2023 10:11 AM COVER CREASER us Judy Montoya NETWORK SYSTEMS ADMINISTRATOR LAB BLOOD ORDERABLES Cee yanes Result [facility] Department [place] [address] * (ABNORMAL) Comprehensive metabolic panel (04/15/2023 9:50 AM COVER CREASER) Sodium 137 135 - 145 mmol/L [facility] Potassium, pl 3.7 3.3 - 4.9 mmol/L [facility] Chloride 104 97 - 110 mmol/L [facility] CO2 24 22 - 32 mmol/L [facility] Anion gap 9 2 - 15 mmol/L [facility] BUN 6 6 - 25 mg/dL [facility] Creatinine 0.47(L) 0.60 - 1.10 mg/dL [facility] Glucose 73 70 - 199 mg/dL [facility] Comment: Interpretive Data Fasting glucose >/= [...] classification and Diagnosis of Diabetes Diabetes Care 202; 46: S19-S40. Current interpretive data was last revised 2022. Calcium 8.8 8.5 - 10.3 mg/dL [facility] Bilirubin, total 0.2 0.1 - 1.2 mg/dL [facility] Protein, pl 7.1 6.5 - 8.5 g/dL [facility] Albumin 3.4(L) 3.5 - 5.0 g/dL [facility] Alk phos 90 40 - 130 Units/L [facility] ALT 9 7 - 45 Units/L [facility] AST 14 10 - 45 Units/L [facility] Blood 04/15/2023 9:50 AM COVER CREASER 04/15/2023 10:12 AM COVER CREASER us Judy Montoya NETWORK SYSTEMS ADMINISTRATOR LAB BLOOD ORDERABLES Cee yanes Result [facility] [place] [address] * (ABNORMAL) CBC with auto differential (04/15/2023 9:50 AM COVER CREASER) Pathologist [facility] WBC 12.7(H) 3.8 - 9.9 K/cumm [facility] Hgb 10.7(L) 11.9 - 15.5 g/dL [facility] Hct 32.4(L) 35.6 - 45.5 % [facility] Plt 276 150 - 400 K/cumm [facility] MPV 10.6 9.1 - 12.3 fL [facility] RBC 4.00 3.90 - 5.20 M/cumm [facility] MCV 81.0(L) 81.3 - 96.4 fL [facility] MCH 26.8(L) 27.1 - 33.3 pg [facility] MCHC 33.0 32.3 - 35.7 g/dL [facility] RDW CV 13.6 11.1 - 14.9 % [facility] RDW SD 39.5 35.7 - 48.1 fL [facility] NRBC abs 0.00 0.00 - 0.01 K/cumm [facility] Blood 04/15/2023 9:50 AM COVER CREASER 04/15/2023 10:11 AM COVER CREASER Judy Montoya NETWORK SYSTEMS ADMINISTRATOR LAB BLOOD ORDERABLES Cee joaquín Result [facility]IVE [facility] Department [place] [address] documented in this encounter Visit Diagnoses Not on filedocumented in this encounter Administered Medications Inactive Administered Medications - up to 3 most recent administrations Medication Order MAR Action Action Date Dose Rate Site acetaminophen (TYLENOL) tablet 1,000 mg 1,000 mg, oral, Once, On Fri04/15/23 at 1045, For 1 dose Given 04/15/2023 10:17 AM COVER CREASER 1,000 mg documented in this encounter Active and Recently Administered Medications Times are shown in COVER CREASER. Scheduled Medication Order 04/13/2023 04/14/2023 04/15/2023 acetaminophen (TYLENOL) tablet 1,000 mg (COMPLETED) 1,000 mg, oral, Once, On Fri04/15/23 at 1045, For 1 dose 1017 (Given - Provid er: Chyna Wise RN) documented in this encounter Orders Medications Ordered That Jonathan ht Not Have Been Administered Count Last Ordered Date First Ordered Date acetaminophen (TYLENOL) tablet 1,000 mg 1 0 04/15/2023 Nursing Count Last Ordered Date First Orde red Date VITAL SIGNS 1 04/15/2023 Discharge Count Last Ordered Date First Orde red Date DISCHARGE PATIENT 1 04/15/2023 documented in this encounter Care Teams Medical Director Relationship Specialty Start Date End Date Judy Fishman NP [address] [address] PCP - General 07/31/18 Jessica Martínez MD [address] [address] Consulting Physician Obstetrics and Gynecology 11/16/20 documented as of this encounter
--- OUTSIDE RECORDS SUMMARY | 2024-04-11 06:11 | XMS_ITS | Encounter Summary ---
Author Organization [facility] Healthcare Address [address] [place] [address] Care Team Providers Care Audio Production Instructor Name Role Phone Judy Fishman SURGICAL SCRUB TECH Primary Care Provider + Jessica Martínez MD Unavailable [phone] Reason for Referral * Diagnostic Imaging (Routine) - Closed Specialty Diagnoses / Procedures Referred By Mary roberson Referred To Contact Diagnoses Supervision of high-risk , third trimester Insulin controlled gestational diabetes mellitus (GDM) in second trimester Procedures US Biophysical Profile WO Test Sharon Barry MD [address] [facility] [id number] [place] [address] Phone: tel: fax: [facility] (All Locations) Referral ID Status Reason Start Date Expiration Date Visits Re quested Visits Authorized [id number] Closed 05/02/2023 05/31/2024 1 1 LD [facility] Reason for Visit * Diagnostic Imaging (Routine) - Closed Specialty Diagnoses / Procedures Referred By Mary roberson Referred To Contact Diagnoses Supervision of high-risk , third trimester Insulin controlled gestational diabetes mellitus (GDM) in second trimester Procedures US Biophysical Profile WO Test Sharon Barry MD [address] [facility] [id number] [place] [address] Phone: tel: fax: [facility] (All Locations) Referral ID Status Reason Start Date Expiration Date Visits Re quested Visits Authorized [id number] Closed 05/02/2023 05/31/2024 1 1 Encounter Details Date Type Department Care Team (Latest Contact Info) Description 05/02/2023 10:44 AM RELIEF CAPTAIN - 05/02/2023 11:59 PM RELIEF CAPTAIN Hospital Encounter [facility] [address] [facility], 7th [address], [address] [facility] [place] [address] Supervision of high-risk , third trimester; Insulin controlled gestational diabetes mellitus (GDM) in second trimester Discharge Disposition: Discharge to home or [...] often do you attend chur ch or religion services? 1 to 4 times per year 05/31/2021 Do you belong to any clubs o r organizations such as hindu groups, unions, fraternal or athletic groups, or [...] a group home (including now)? No 05/31/2021 [place] Depression Scale Answer Date Recorded [place] Depression Scale Total 2 07/10/2021 The thought of harming myself has occurred to me . Never 07/10/2021 Personal Safety Answer Date Recorded Getting School Help Needed Denies 03/25 Comments Yes Sex and Gender Information Value Date Recorded Sex Assigned at Not on file Legal Sex Female 7:54 PM RELIEF CAPTAIN Gender Identity Not on file Sexual [...] Name Priority Date/Time Associated Diagnosis Comments US BIOPHYSICAL PROFILE WO TEST Schedule Routine, Read Routine (OP Routine) 05/02/2023 10:44 AM RELIEF CAPTAIN Supervision of high-risk , third trimester Insulin controlled gestational diabetes mellitus (GDM) in second trimester documented in this encounter Results * US Biophysical Profile WO Test (05/02/2023 10:44 AM RELIEF CAPTAIN) Fetus# Fetus1 VIEWPOINT Placenta Details posterior, Previa-no VIEWPOINT Presentation Vertex VIEWPOINT Anatomical Region Laterality Modality N/A Ultrasound 05/02/2023 10:4 5 AM RELIEF CAPTAIN Impressions 05/02/2023 11:37 AM RELIEF CAPTAIN Turner IUP at 37w0d.1. Vertex presentation. 2. [...] Diagnoses Diagnosis Supervision of high-risk , third trimester Insulin controlled gestational diabetes mellitus (GDM) in second trimester documented in this encounter Care Teams Audio Production Instructor Relationship Specialty Start Date End Date Judy Fishman NP [address] [address] PCP - General 07/31/18 Jessica Martínez MD [address] [id number] Consulting Physician Obstetrics and Gynecology 11/16/20 documented as of this encounter
--- OUTSIDE RECORDS SUMMARY | 2024-04-11 06:11 | XMS_ITS | Encounter Summary ---
Author Organization [facility] Address [address] [place] [address] Phone Care Team Providers Care Clinical Rn Name Role Phone Judy Fishman NP Primary Care Provider + Jessica Martínez MD Unavailable [phone] Reason for Referral * Diagnostic Imaging (Routine) - Closed Specialty Diagnoses / Procedures Referred By Contac t Referred To Contact Diagnoses Supervision of high-risk , first trimester History of gestational diabetes in prior , currently Crohn's disease of small intestine with other complication (HCC) History of pre-eclampsia in prior , currently in first trimester Procedures US Ob Follow Up Jane Montalvo MD [address] [place] [address] Phone: tel: fax: [facility] (All Locations) Referral ID Status Reason Start Date Expiration Date Visits Re quested Visits Authorized [id number] Closed 01/24/2023 02/23/2024 1 1 Reason for Visit * Reason Comments High Risk Gestation Encounter Details Date Type Department Care Team (Late st Contact Info) Description 01/24/2023 11:15 AM CDT Office Visit [facility] [address] [place] [address] Health 7th Floor [address] [place] [address] Supervision of high-risk , first trimester (Primary Dx); Need for vaccination for H flu type B; History of gestational diabetes in prior , currently ; Crohn's disease of small intestine with other complication (HCC); Obesity in , antepartum; History of pre-eclampsia in prior , currently in first trimester Social History Tobacco Use Types [...] often do you attend chur ch or yarsanism services? 1 to 4 times per year 05/31/2021 Do you belong to any clubs o r organizations such as oriental orthodox groups, unions, fraternal or athletic groups, or [...] in a longterm (including now)? No 05/31/2021 [place] Depression Scale Answer Date Recorded [place] Depression Scale Total 2 07/10/2021 The thought of harming myself has occurred to me . Never 07/10/2021 Comments Yes Sex and Gender Information Value Date Recorded Sex Assigned at Not on file Legal Sex Female 7:54 PM COUNTER SALES REPRESENTATIVE Gender Identity Not on file Sexual Orientation Not on file documented as of this encounter Last Filed Vital Signs Vital Sign Reading Time Taken Comments Blood Pressure 113/72 01/24/2023 11:05 AM CDT Pulse 77 01/24/2023 11:05 AM CDT Temperature - - Respiratory Rate - - Oxygen Saturation 97% 01/24/2023 11:05 AM CDT Inhaled Oxygen Concentration - - Weight 108.9 kg (240 lb) 01/24/2023 11:05 AM CDT Height 157.5 cm (5' 2 ) 01/24/2023 11:05 AM CDT Body Mass Index 43.9 01/24/2023 11:05 AM CDT documented in this encounter Progress Notes * Bertin Reilly MD - 01/24/2023 11:15 AM CDT M Return Visit 01/24/2023 Liliana Mancilla is a 32 y.o. at 23w0d who is here for a return OB visit. Her is complicated by history of GDM, Crohn's disease, obesity, history of delivery, history of LEEP, history of preeclampsia. Subjective: She reports felling well, denies any vaginal bleeding, contractions, or leakage of fluid. Reports positive movement. Since last visit, she is doing well. Having some tension headaches that improve with tylenol. Crohn's symptoms - she is well controlled w/ no recent flare symptoms. Entyvio infusions are qMonth. Objective: BP 113/72 Pulse 77 Ht 157.5 cm (5' 2 ) Wt 240 lb (108.9 kg) LMP 08/01/2022 SpO2 97% BMI43.90 kg/m?? General: NAD Heart: regular rate Lungs: non-labored respirations Abdomen: Soft, gravid, NT Extremities: WWP, no edema Ultrasound: 01/24/2023 23w0d EFW 611g (72%), cephalic presentation, LATRICE normal, placenta posterior. Anatomy complete Assessment/Plan: Liliana Mancilla is a 32 y.o. at 23w0d with a complicated by history of GDM, Crohn's disease, obesity, history of delivery, history of LEEP, history of preeclampsia. Problem List Endocrine and Metabolic History of gestational diabetes in prior , currently Overview - History of GDM in G1 - Early screening with A1C, 5.7 on 10/04/22- follow- up 3hr normal Plan [] Repeat screening w/ 1 hour GTT at 24-28 weeks Relevant Orders US Ob Follow Up Gastrointestinal and Abdominal Crohn's disease of small [...] weeks [] Mode of delivery: anticipate vaginal Relevant Orders US Ob Follow Up Gravid and History of pre-eclampsia in prior , currently in first trimester Overview - s/p counseling Plan [] testing weekly starting at 32 weeks (previous preeclampsia required delivery) [x] Baseline CBC, CMP,- WNL UPC- pending [x] Low dose aspirin daily starting at 12 weeks gestation until delivery Relevant Orders US Ob Follow Up Supervision of high-risk , first trimester - Primary Overview [x] Full MFM Care; [x] Blue Team Referring Provider: Trent Severino (GI) [phone] [] or Medicare Insurance [x] Dating Criteria: LMP 08/01/22 with JONNATHAN 05/08/23 [x] Labs: Rh [B positive ], Ab [negative ], Rubella [Imm ], HIV [NR ], HepBSAg [NR ], RPR [NR ], Hep C [NR ], Varicella [ Reactive], GC/CT [Neg/Neg ] [x] Genetic Screening: NIPT- LR- pt aware [x] CBC/Hgb: 12.0/37.1/360K [x] Early 1hr GTT (if indicated) : Hemoglobin A1C: 5.7 [] UCx: collected on 01/24 [x] Pap: 2021, normal [x] LD ASA (if indicated) starting at 12 weeks: [] EPDS [ ]; PNBHS referral (if indicated) 2nd Tri Labs: [x] Anatomy ultrasound: scheduled for 12/27 [] CBC: plan for CBC and 1hr between 24-28 weeks [x] Flu Shot (Dec-Mar):01/24/2023 [] Tdap (27-36wks): [] Rhogam at 28 wks (if Rh neg): 3rd Tri Labs: [] CBC/HIV/RPR/T&S: [] GBS: [] GC/CT (if indicated): [] testing: Counseling [] MOD: [] Place of delivery: [] Last clinic visit SVE: [] IOL start agent: [] Epidural: [] Consents signed: [] MOC: [] Method of feeding: [] Cardiology Physician: [] PP Depression Discussed: Relevant Orders Urine culture Urine, clean voided US Ob Follow Up Obesity in , antepartum Overview - BMI: 44 - s/p counseling Plan [x] Early A1C- 5.7 on 10/04/22 [x] Specialized anatomy ultrasound [] Serial growth ultrasounds q4 weeks starting at 24 weeks, next due in 4 weeks [] Weekly testing per history of preeclampsia Patient was seen and discussed with Dr. Montalvo who agrees with the above documented assessment and plan. Plan for 2T labs at [facility] in 1-4 weeks. UCx today. F/u w/ GI as planned. RTC in 4 weeks w/ C[place] Bertin Reilly MD Cosigned by Jane Montalvo MD at 01/24/2023 4:35 PM CDT Associated attestation - Jane Montalvo MD - 01/24/2023 4:35 PM CDT I have seen and examined the patient. I agree with the findings and plan of care as documented in the resident/fellow's note. * Connie Zapata - 01/24/2023 11:15 AM CDT MFM Return Visit 01/24/2023 Liliana Mancilla is a 32 y.o. at 23w0d by LMP who is here for a return OB visit. Her is complicated by Crohn's disease, obesity, elevated 1 hr glucose with normal 3 hr, and hx of gestational diabetes hx of pre-eclampsia. Subjective: She reports felling well today. She denies any vaginal bleeding, contractions, or leakage of fluid. Reports positive movement. No concerns today. Objective: BP 113/72 Pulse 77 Ht 157.5 cm (5' 2 ) Wt 240 lb (108.9 kg) LMP 08/01/2022 SpO2 97% BMI43.90 kg/m?? General: NAD Heart: regular rate Lungs: non-labored respirations Abdomen: Soft, gravid, NT Extremities: WWP, no edema Ultrasound: 01/24/2023 23w0d EFW (72%), cephalic presentation, LATRICE normal, placenta posterior Assessment/Plan: Liliana Mancilla is a 32 y.o. at 23w0d by LMP with a complicated by Crohn's disease, obesity, elevated 1 hr glucose with normal 3 hr, and hx of gestational diabetes hx of pre-eclampsia. Problem List Crohn's disease of small intestine with other [...] weeks [] Mode of delivery: anticipate vaginal Relevant Orders US Ob Follow Up Obesity in , antepartum Overview - BMI: [...] starting at 12 weeks gestation until delivery Relevant Orders US Ob Follow Up Supervision of high-risk , first trimester - Primary Overview [x] Full MFM Care; [x] Blue Team Referring Provider: Trent Severino () [phone] [] [employer] or Medicare Insurance [x] Dating Criteria: LMP 08/01/22 with JONNATHAN 05/08/23 [x] Labs: Rh [B positive ], Ab [negative ], Rubella [Imm ], HIV [NR ], HepBSAg [NR ], RPR [NR ], Hep C [NR ], Varicella [ Reactive], GC/CT [Neg/Neg ] [x] Genetic Screening: NIPT- LR- pt aware [x] CBC/Hgb: 12.0/37.1/360K [x] Early 1hr GTT (if indicated) : Hemoglobin A1C: 5.7 [] UCx: collected on 01/24 [x] Pap: 2021, normal [x] LD ASA (if indicated) starting at 12 weeks: [] EPDS [ ]; PNBHS referral (if indicated) 2nd Tri Labs: [x] Anatomy ultrasound: scheduled for 12/27 [] CBC: plan for CBC and 1hr between 24-28 weeks [x] Flu Shot (Dec-Mar):01/24/2023 [] Tdap (27-36wks): [] Rhogam at 28 wks (if Rh neg): 3rd Tri Labs: [] CBC/HIV/RPR/T&S: [] GBS: [] GC/CT (if indicated): [] testing: Counseling [] MOD: [] Place of delivery: [] Last clinic visit SVE: [] IOL start agent: [] Epidural: [] Consents signed: [] MOC: [] Method of feeding: [] Cardiology Physician: [] PP Depression Discussed: Relevant Orders Urine culture Urine, clean voided US Ob Follow Up History of gestational diabetes in prior , currently Overview - History of GDM in G1 - Early screening with A1C, 5.7 on 10/04/22- follow- up 3hr normal Plan [] Repeat screening w/ 1 hour GTT at 24-28 weeks Relevant Orders US Ob Follow Up Patient was seen and discussed with Dr. Montalvo and Dr. Reilly who agree's with the above documented assessment and plan. Connie Zapata Sub-Silverware Cleaner MFM Cosigned by Jane Montalvo MD at 01/24/2023 4:34 PM CDT documented in this encounter Plan of Treatment Not on file documented as of this encounter Procedures Procedure Name Priority Date/Time Associated Diagnosis Comments GLUCOSE TOLERANCE 3 HOUR, GESTATIONAL, 4 SPECIMENS (100G) Routine 02/08/2023 7:12 AM CDT Supervision of high-risk , first trimester History of gestational diabetes in prior , currently CBC WITHOUT DIFFERENTIAL Routine 02/08/2023 7:12 AM CDT Supervision of high-risk , first trimester History of gestational diabetes in prior , currently documented in this encounter Results * US Ob Follow Up (02/21/2023 10:17 AM COUNTER SALES REPRESENTATIVE) Fetus# Fetus1 VIEWPOINT Estimated Weight 1,051 g&grams VIEWPOINT Placenta Details posterior, Previa-no VIEWPOINT Presentation Breech VIEWPOINT Anatomical Region Laterality Modality Abdomen N/A Ultrasound 02/21/2023 10:1 8 AM COUNTER SALES REPRESENTATIVE Impressions 02/21/2023 10:49 AM COUNTER SALES REPRESENTATIVE Interval growth has been normal.IUP at 27 weeksAGA growth pattern Narrative Procedure Note Bernarda York MD - 02/21/2023 IMPRESSION: Interval growth has been normal.IUP at 27 weeksAGA growth pattern us Jane Montalvo MD IMG OB US PROCEDURES Cee l Result * (ABNORMAL) Glucose Tolerance 3 Hour, Gestational, 4 Specimens (100g) (02/08/2023 7:12 AM CDT) Glucose, fasting 84 65 - 94 mg/dL [facility] Glucose, 1 hour 183(H) <180 mg/dL [facility] Glucose, 100g, 2 hr, pl 138 <155 mg/dL [facility] Glucose, 100g, 3 hr, pl 143(H) <140 mg/dL [facility] Comment [facility] Comment: ?? Melgoza/Coustan Criteria: Two or more values greater than the above reference intervals are suggestive of gestational diabetes. ?? Serum 02/08/2023 7:12 AM CDT 02/08/2023 7:12 AM CDT us Jane Montalvo MD LAB BLOOD ORDERABLES Cee l Result [facility] [address] [place] [address] * (ABNORMAL) CBC without differential (02/08/2023 7:12 AM CDT) WBC 12.1(H) 3.8 - 10.8 Thousand/uL [facility] RBC, POC 3.89 3.80 - 5.10 Million/uL [facility] Hgb 10.6(L) 11.7 - 15.5 g/dL [facility] Hct 32.9(L) 35.0 - 45.0 % [facility] MCV 84.6 80.0 - 100.0 fL [facility] MCH 27.2 27.0 - 33.0 pg [facility] MCHC 32.2 32.0 - 36.0 g/dL [facility] Rdw 13.4 11.0 - 15.0 % [facility] Platelets 296 140 - 400 Thousand/uL [facility] MPV 11.5 7.5 - 12.5 fL [facility] Blood 02/08/2023 7:12 AM CDT 02/08/2023 7:12 AM CDT us Jane Montalvo MD LAB BLOOD ORDERABLES Cee l Result [facility] [address] [place] [address] * Urine culture Urine, clean voided (01/24/2023 3:01 PM CDT) Report Final Report: Less than 100,000 colonies/mL (clinically insignificant growth based on current clinical standards) Organism (CLINICALLY INSIGNIFICANT GROWTH [facility] Urine, clean voided 01/24/2023 3:01 PM CDT 01/24/2023 4:34 PM CDT Narrative [facility] - 01/25/2023 5:58 PM CDT Testing performed by [facility] ([phone]) us Jane Montalvo MD LAB MICROBIOLOGY - GENERA L ORDERABLES Final Result [facility] Department [place] [address] documented in this encounter Visit Diagnoses Diagnosis Supervision of high-risk , first trimester- Primary Need for vaccination for H flu type B Need for prophylactic vaccination against Hemophilus influenza type B (Hib) History of gestational diabetes in prior , currently with other poor obstetric history Crohn's disease of small intestine with other complication (HCC) Obesity in , antepartum Obesity complicating , childbirth, or the puerperium, antepartum condition or complication History of pre-eclampsia in prior , currently in first trimester Supervision of high-risk , first trimester Supervision of high-risk , first trimester History of gestational diabetes in prior , currently with other poor obstetric history Crohn's disease of small intestine with other complication (HCC) History of pre-eclampsia in prior , currently in first trimester documented in this encounter Historical Medications * This list may reflect changes made after this encounter. acetaminophen 32 mg/mL diphenhydrAMINE HCL 25 mg tablet,disintegratin g Take 25 mg by mouth every 4 (four) hours ondansetron ODT (ZOFRAN-ODT) 8 mg disintegrating tablet DIS 1 T ON THE TONGUE Q 8 H PRN 3 [facility] ranitidine () 150 mg tablet TK 1 T PO BID FOR 15 DAYS 3 added in this encounter Orders Immunization/Injection Count Last Ordered Date First Ordered Date FLU VACCINE MDCK QUAD PF 2Y+ IM - FLUCELVAX 1 01/24/2023 documented in this encounter Care Teams Clinical Rn Relationship Specialty Start Date End Date Judy Fishman NP [address] [id number] PCP - General 07/31/18 Jessica Martínez MD [address] [address] Consulting Physician Obstetrics and Gynecology 11/16/20 documented as of this encounter
--- OUTSIDE RECORDS SUMMARY | 2024-04-11 06:11 | XMS_ITS | Encounter Summary ---
Author Organization [facility] Address [address] [facility] [address] [place] [address] Phone Care Team Providers Care Resolution Expert Name Role Phone Judy Fishman NP Primary Care Provider + Jessica Martínez MD Unavailable [phone] Reason for Referral * (Routine) - Pending Review Specialty Diagnoses / Procedures Referred By Contac t Referred To Contact Diagnoses Gestational diabetes mellitus (GDM) in third trimester, gestational diabetes method of control unspecified Obesity in , antepartum History of pre-eclampsia in prior , currently in first trimester Procedures nonstress test - Eda Cevallos MD [address] [facility] [id number] [place] [address] Phone: tel: fax: [facility] (All Locations) Referral ID Status Reason Start Date Expiration Date V isits Requested Visits Authorized [id number] Pending Review 03/28/2023 04/26/2024 1 1 STAYER Reason for Visit * Reason Comments NST/BPP Visit Encounter Details Date Type Department Care Team (Latest Contact Info) Description 03/28/2023 9:30 AM SEAM STAYER Clinical Support [facility] Obstetrics and Gynecology [facility] 7th [place] [address] Gestational diabetes mellitus (GDM) in third trimester, gestational diabetes method of control unspecified; Obesity in , antepartum; History of pre-eclampsia [...] often do you attend chur ch or pentecostal services? 1 to 4 times per year [...] slept in a fdc (including now)? No 05/31/2021 [place] Depression Scale Answer Date Recorded [place] Depression Scale Total 2 07/10/2021 The thought of harming myself has occurred to me . Never 07/10/2021 Personal Safety Answer Date Recorded Getting School Help Needed Denies 03/25 Comments Yes Sex and Gender Information Value Date Recorded Sex Assigned at Not on file Legal Sex Female 7:54 PM SEAM STAYER Gender Identity Not on file Sexual Orientation Not on file documented as of this encounter Last Filed Vital Signs Vital Sign Reading Time Taken Comments Blood Pressure 107/71 03/28/2023 10:08 AM SEAM STAYER Pulse - - Temperature - - Respiratory Rate - - Oxygen Saturation - - Inhaled Oxygen Concentration - - Weight - - Height - - Body Mass Index - - documented in this encounter Plan of Treatment Not on file documented as of this encounter Procedures Procedure Name Priority Date/Time Associated Diagnosis Comments NONSTRESS TEST Routine 03/28/2023 Gestational diabetes mellitus (GDM) in third trimester, gestational diabetes method of control unspecified Obesity in , antepartum History of pre-eclampsia in prior , currently in first trimester documented in this encounter Results * nonstress test - (03/28/2023) Eda Cevallos MD OB GYNE ORDERABLES Final R esult documented in this encounter Visit Diagnoses Diagnosis Gestational diabetes mellitus (GDM) in third trimester, gestational diabetes method of control unspecified Obesity in , antepartum Obesity complicating , childbirth, or the puerperium, antepartum condition or complication History of pre-eclampsia in prior , currently in first trimester documented in this encounter Care Teams Resolution Expert Relationship Specialty Start Date End Date Judy Fishman NP [address] [address] PCP - General 07/31/18 Jessica Martínez MD [address] [address] Consulting Physician Obstetrics and Gynecology 11/16/20 documented as of this encounter
--- OUTSIDE RECORDS SUMMARY | 2024-04-11 06:11 | XMS_ITS | Encounter Summary ---
Author Organization [facility] Address [address] [place] [address] Phone Care Team Providers Care Ecological Economist Name Role Phone Judy Fishman NP Primary Care Provider + Jessica Martínez MD Unavailable [phone] Reason for Visit * Reason Comments Gestational Diabetes * Consultation (Routine) - Closed Specialty Diagnoses / Procedures Referred By Contac t Referred To Contact Diabetes and Nutrition Services Diagnoses Supervision of high-risk , first trimester Obesity in , antepartum Crohn's disease of small intestine with other complication (HCC) Diet controlled gestational diabetes mellitus (GDM) in second trimester Jane Montalvo MD [address] [address] Phone: tel: fax: [facility] Endocrinology Metabolism and Lipid [address] [facility] Medicine 13th [place] [address] [place] [address] Phone: tel: fax: Referral ID Status Reason Start Date Expiration Date V isits Requested Visits Authorized [id number] Closed Specialty Services Required 02/10/2023 03/11/2024 10 10 Encounter Details Date Type Department Care Team (Latest Contact Info) Description 02/21/2023 9:00 AM DIRECTOR RECREATION Clinical Support [facility] Endocrinology Metabolism and Lipid [address] [facility] Medicine [address]th [place] [address] [place] [address] Rose Marie Abbott, RD [address] [place] [address] Supervision of high-risk , first trimester; Obesity in , antepartum; Crohn's disease of small intestine with other complication (HCC); Diet controlled gestational diabetes mellitus (GDM) in second [...] week 05/31/2021 How often do you attend up health system or presybeterian services? 1 to 4 times per year 05/31/2021 Do you belong to any clubs o r organizations such as synagogue groups, unions, fraternal or athletic groups, or [...] a group home (including now)? No 05/31/2021 [place] Depression Scale Answer Date Recorded [place] Depression Scale Total 2 07/10/2021 The thought of harming myself has occurred to me . Never 07/10/2021 Comments Yes Sex and Gender Information Value Date Recorded Sex Assigned at Not on file Legal Sex Female 7:54 PM DIRECTOR RECREATION Gender Identity Not on file Sexual Orientation Not on file documented as of this encounter Progress Notes * Rose Marie Abbott, RD - 02/21/2023 9:00 AM CST Gestational Diabetes MNT Encounter Date: 02/21/2023 Referring Physician: Jane Montalvo MD Start Time: 857 End Time: 930 Total Minutes: 33 min Ms. Liliana Mancilla is a 32 y.o. female : 1990 Liliana is here for initial visit regarding her newly diagnosed Gestational Diabetes. Her is also complicated by Obesity, Crohn's disease. She has a hx of GDM with her first . She took basal insulin at that time. Estimated Gestational Age: 27w0d Estimated Date of Delivery: 05/23/23 -Para: Pertinent Meds: PNV Labs Most recent Hgb A1c 5.7% on 10/04/22 3 hour GTT: Fastin 1 hour: 183 2 hour: 138 3 hour: 143 Reviewed CGM/SMBG records She has already started testing her blood sugar. She is using a Contour Next One blood glucose meter She brought glucose records today which we wereable to review. She is testing her blood sugar 4 times daily, Fasting blood sugars are 94-96 mg/dl, target <95 One hour post meal blood sugars are 144, 145 mg/dl after breakfast, lower after lunch and dinner, target is <140 Nutrition Assessment: 32 y.o. year old patient with newly diagnosed gestational diabetes in her 27w0d week of gestation. Patient with BMI of 42 and PPW of 232 pounds. Current weight is 243 lbs for a change of 11 lbs this . Obtained Food Recall: Breakfast: 2 rice cakes, 2 T peanut butter, water with ana or diet soda Lunch: cape verdean pinwheels, made with low carb wraps, water with ana Dinner: frozen pizza, 2 slices or chicken breast, asparagus or breaded chicken fillet Snacks: AM Snack: bag of skinny pop, cheese stick, keto yogurt, Afternoon Snack: turkey and cheese stick, HS Snack: sugar free pudding, cool whip or skinny pop, water or powerade zero Meal plan Breakfast: 30 g carbs Snack (2-3 hours post first meal): 15 to 30 gm carb Lunch (2-3 hours after morning snack: 45 to 60 g carb Afternoon snack (2 to 3 hours post lunch): 15 to 30 g carb Evening meal (2-3 hours after mid-afternoon snack): 45 to 60 g carb Bedtime snack: 15 to 30 g carb Nutrition Intervention: Patient provided with nutrition education on above diet using verbal/written materials with emphasis on carbohydrate counting, reduced fat choices and increased use of whole grains and higher fiber foods. Patient was instructed in how to determine grams of CHO in her diet using labels and provided resource materials. Sample meal and snack ideas provided to patient as well as reference lists for determining grams ofcarbohydrate in foods eaten. Patient indicated verbal understanding. All patient questions were addressed and answered. Food safety recommendations for processed lunch meats, caffeine, artificial sweetener. Calorie and nutrient needs in . Additional Areas of Review Purpose and frequency of monitoring BG, and when to contact health care team with results; identifyglucose targets and personal targets. Effect of exercise on blood glucose levels. Risks of smoking, alcohol and drug use Relationship between blood glucose control and outcome. Risks of maternal/ complications due to diabetes. Benefits of breast feeding Appropriate weight gain in . Post-: Future risk of diabetes to mom and baby. Need for follow-up tests post . Necessity of maintaining a healthy lifestyle for prevention of Type 2 diabetes. Basal insulin education, use of the insulin pen, storage, site rotation Duncan has a very limited intake of carb and this may be impacting her energy level. We discussed different options for breakfast that may help after meal glucose. I also reviewed ways to increase calcium intake and protein because she tells me she has an aversion to meat during . Patient was given the following: Written Meal plan Handout on Gestational diabetes Snack ideas and sample meal ideas 2 blood glucose log sheets with target goals for fasting and 1 hour after meals. Phone number and name of personal lines account manager for questions and problems. Individualized follow up assessment/education will be provided for problems related to glucose and/or weight gain pattern. Educational Materials given to patient BD GDM booklet My Food Plan - Gestational and Snack Ideas Rose Marie Abbott RD [facility] CTOR RECREATION documented in this encounter Plan of Treatment Not on file documented as of this encounter Visit Diagnoses Diagnosis Supervision of high-risk , first trimester Obesity in , antepartum Obesity complicating , childbirth, or the puerperium, antepartum condition or complication Crohn's disease of small intestine with other complication (HCC) Diet controlled gestational diabetes mellitus (GDM) in second trimester documented in this encounter Orders Outpatient Referral Count Last Ordered Date Fir st Ordered Date AMB REFERRAL TO [facility] 1 02/21/2023 documented in this encounter Care Teams Ecological Economist Relationship Specialty Start Date End Date Judy Fishman NP [address] [address] PCP - General 07/31/18 Jessica Martínez MD [address] [address] Consulting Physician Obstetrics and Gynecology 11/16/20 documented as of this encounter
--- OUTSIDE RECORDS SUMMARY | 2024-04-11 06:11 | XMS_ITS | Encounter Summary ---
Author Organization [facility] Address [address] [place] [address] Phone Care Team Providers Care Hat Measurer Name Role Phone Judy Fishman NP Primary Care Provider + Jessica Martínez MD Unavailable [phone] Reason for Visit * Reason Comments High Risk Gestation Encounter Details Date Type Department Care Team (Late st Contact Info) Description 04/03/2023 1:30 PM INSTRUMENTAL TEACHER Office Visit [facility] Maternal- Medicine [address] [facility] 7th [address] [place] [address] Obesity in , antepartum (Primary Dx); History of pre-eclampsia in prior , currently in third trimester; Supervision of high-risk , third trimester; Insulin [...] week 05/31/2021 How often do you attend [facility] or evangelical services? 1 to 4 times per year 05/31/2021 Do you belong to any clubs o r organizations such as mormonism groups, unions, fraternal or athletic groups, or [...] slept in a fpc (including now)? No 05/31/2021 [place] Depression Scale Answer Date Recorded [place] Depression Scale Total 2 07/10/2021 The thought of harming myself has occurred to me . Never 07/10/2021 Personal Safety Answer Date Recorded Getting School Help Needed Denies 03/25 Comments Yes Sex and Gender Information Value Date Recorded Sex Assigned at Not on file Legal Sex Female 7:54 PM INSTRUMENTAL TEACHER Gender Identity Not on file Sexual Orientation Not on file documented as of this encounter Last Filed Vital Signs Vital Sign Reading Time Taken Comments Blood Pressure 115/73 04/03/2023 1:31 PM INSTRUMENTAL TEACHER Pulse 91 04/03/2023 1:31 PM INSTRUMENTAL TEACHER Temperature - - Respiratory Rate - - Oxygen Saturation 99% 04/03/2023 1:31 PM INSTRUMENTAL TEACHER Inhaled Oxygen Concentration - - Weight 109.3 kg (241 lb) 04/03/2023 1:31 PM INSTRUMENTAL TEACHER Height 157.5 cm (5' 2 ) 04/03/2023 1:31 PM INSTRUMENTAL TEACHER Body Mass Index 44.08 04/03/2023 1:31 PM INSTRUMENTAL TEACHER documented in this encounter Progress Notes * Eda Cevallos MD - 04/03/2023 1:30 PM CST MFM Return Visit 04/03/2023 Liliana Mancilla is a 32 y.o. at 32w6d who is here for a return OB visit. Her is complicated by GDMA2, history of GDM, Crohn's disease, obesity, history of delivery, history of LEEP, history of preeclampsia. Subjective: She reports no complaints. Denies vaginal bleeding, contractions or LOF. Active movement. Denies any hypoglycemia. Thinks her CBGs are overall increasing for the past few weeks. Objective: BP 115/73 Pulse 91 Ht 157.5 cm (5' 2 ) Wt 241 lb (109.3 kg) LMP 08/01/2022 SpO2 99% BMI44.08 kg/m?? General: NAD Abdomen: Gravid NST reactive Assessment/Plan: Liliana Mancilla is a 32 y.o. at 32w6d with a complicated by the following: Problem List Crohn's disease of small intestine with other complication (HCC) - Primary Overview History - diagnosis: Crohn's disease, in remission since diagnosis in 2019 - current regimen: Entyvio - history of perianal involvement: no - s/p counseling Plan [x] Continue Entyvio and follow-up with Dr. Severino [x] Specialized anatomy [] Serial growth ultrasounds per GDMA2 problem [] Mode of delivery: anticipate vaginal Current Assessment & Plan Asymptomatic, well controlled. Obesity in , antepartum Overview - BMI: 44 - s/p counseling Plan [x] Specialized anatomy ultrasound [] Serial growth ultrasounds and testing per GDMA2 problem History of pre-eclampsia in prior , currently in third trimester Overview - s/p counseling Blood pressure log reviewed on 03/21/2023 Plan [x] Baseline CBC, CMP,- WNL UPC- 57 [x] Low dose aspirin daily starting at 12 weeks gestation until delivery Supervision of high-risk , third trimester Overview [x] Full [facility] Care; [x] Blue Team Referring Provider: Trent XAVIER) [phone] [] or Medicare Insurance [x] Dating Criteria: [...] her. [x] Method of feeding: Breast [x] Picker Feeder: bP [] PP Depression Discussed: Gestational diabetes mellitus, with history of GDM Overview - History of GDM in G1 - Early screening with A1C, 5.7 on 10/04/22- follow- up 3hr normal - 3hr OGTT in 2T: 2/4 elevated (84, 183, 138, 143) Current regimen: 04/03/2023 Lantus 20 > 24 units every night Continue an evening walk and high protein snack. Keep food log for breakfast S/p counseling Plan [] Send weekly glucose log through [employer] for review [] Weekly testing - counseled [...] 09/2022 -Consider T&C at time of delivery RTC 2 weeks for MFM visit and growth US Continue weekly NSTs Eda Cevallos MD Maternal Medicine 04/03/2023 RUMENTAL TEACHER documented in this encounter Miscellaneous Notes * Assessment & Plan Note - Eda Cevallos MD - 04/03/2023 2:06 PM INSTRUMENTAL TEACHER Associated Problem(s): Crohn's disease of small intestine with other complication (HCC) Asymptomatic, well controlled. RUMENTAL TEACHER documented in this encounter Plan of Treatment Not on file documented as of this encounter Visit Diagnoses Diagnosis Obesity in , antepartum- Primary Obesity complicating , childbirth, or the puerperium, antepartum condition or complication History of pre-eclampsia in prior , currently in third trimester Supervision of high-risk , third trimester Insulin controlled gestational diabetes mellitus (GDM) in second trimester documented in this encounter Care Teams Hat Measurer Relationship Specialty Start Date End Date Judy Fishman NP [address] [employer] [address] [place] [id number] PCP - General 07/31/18 Jessica Martínez MD [address] [employer] [address] [place] [address] Consulting Physician Obstetrics and Gynecology 11/16/20 documented as of this encounter
--- OUTSIDE RECORDS SUMMARY | 2024-04-11 06:11 | XMS_ITS | Encounter Summary ---
Author Organization [facility] Address [address] [place] [address] Care Team Providers Care Interactive Marketing Strategist Name Role Phone Judy Fishman HOME BUILDER Primary Care Provider + Jessica Martínez MD Unavailable [phone] Encounter Details Date Type Department Care Team (Late st Contact Info) Description 05/05/2023 9:25 PM DOCK COORDINATOR Ancillary Procedure [address] [address] Social History Tobacco Use Types Packs/Day Years [...] often do you attend chur ch or jainism services? 1 to 4 times per year [...] slept in a intermediate (including now)? No 05/05/2023 [place] Depression Scale Answer Date Recorded [place] Depression Scale Total 2 07/10/2021 The thought of harming myself has occurred to me . Never 07/10/2021 Personal Safety Answer Date Recorded Getting School Help Needed Denies 03/25 Comments Yes Sex and Gender Information Value Date Recorded Sex Assigned at Not on file Legal Sex Female 7:54 PM DOCK COORDINATOR Gender Identity Not on file Sexual Orientation Not on file documented as of this encounter Plan of Treatment Not on file documented as of this encounter Procedures Procedure Name Priority Date/Time Associated Diagnosis Comments US OB LIMITED IP Routine 05/05/2023 9:24 PM DOCK COORDINATOR No leakage of amniotic fluid into vagina documented in this encounter Results * US Ob Limited (05/05/2023 9:24 PM DOCK COORDINATOR) Anatomical Region Laterality Modality Abdomen N/A Ultrasound Study GA Study Date Study JONNATHAN Working JONNATHAN (Source) Feta l Weight (Method) 05/05/2023 05/23/2023 (Ultrasound) Result Name Value Comments Amniotic fld cm Heart Rate bpm CRL cm Sac Diameter cm Addenda Addendum by Edward Zamorano MD on 05/06/2023 8:51 AM DOCK COORDINATOR Vertex on images Appropriate LATRICE I have reviewed the images and agree with above. Edward Zamorano MD Narrative 05/05/2023 9:25 PM DOCK COORDINATOR [facility] BSUS: Vertex presentation DVP: 4.98cm ?? LATRICE: 11.66cm us Angela Regalado HOME BUILDER IMG OB US PROCEDURES Edited R esult - Final documented in this encounter Visit Diagnoses Not on filedocumented in this encounter Care Teams Interactive Marketing Strategist Relationship Specialty Start Date End Date Judy Fishman NP [address] [address] PCP - General 07/31/18 Jessica Martínez MD [address] [address] Consulting Physician Obstetrics and Gynecology 11/16/20 documented as of this encounter
--- OUTSIDE RECORDS SUMMARY | 2024-04-11 06:11 | XMS_ITS | Encounter Summary ---
Author Organization [facility] Address [address] [place] [address] Phone Care Team Providers Care Waterworks Supervisor Name Role Phone Judy Fishman NP Primary Care Provider + Jessica Martínez MD Unavailable [phone] Reason for Referral * Diagnostic Imaging (Routine) - Pending Review Specialty Diagnoses / Procedures Referred By Contac t Referred To Contact Diagnoses Supervision of high-risk , third trimester Insulin controlled gestational diabetes mellitus (GDM) in second trimester Obesity in , antepartum Crohn's disease of small intestine with other complication (HCC) Procedures US Ob Follow Up America Collins MD [address] [facility] [phone] [place] [address] Phone: tel: fax: [facility] (All Locations) Referral ID Status Reason Start Date Expiration Date V isits Requested Visits Authorized [id number] Pending Review 05/09/2023 06/07/2024 1 1 AULIC RIVETER Reason for Visit * Reason Comments High Risk Gestation Encounter Details Date Type Department Care Team (Late st Contact Info) Description 05/09/2023 10:30 AM HYDRAULIC RIVETER Office Visit [facility] Maternal- Medicine [address] [facility] Health 7th Floor [address] [place] [address] Supervision of high-risk , third [...] often do you attend chur ch or hinduism services? 1 to 4 times per year [...] in a fdc (including now)? No 05/14/2023 [place] Depression Scale Answer Date Recorded [place] Depression Scale Total 2 07/10/2021 The thought [...] on file Legal Sex Female 7:54 PM HYDRAULIC RIVETER Gender Identity Not on file Sexual Orientation Not on file documented as of this encounter Last Filed Vital Signs Vital Sign Reading Time Taken Comments Blood Pressure 123/81 05/09/2023 10:29 AM HYDRAULIC RIVETER Pulse 88 05/09/2023 10:29 AM HYDRAULIC RIVETER Temperature - - Respiratory Rate - - Oxygen Saturation 98% 05/09/2023 10:29 AM HYDRAULIC RIVETER Inhaled Oxygen Concentration - - Weight 111.6 kg (246 lb) 05/09/2023 10:29 AM HYDRAULIC RIVETER Height 157.5 cm (5' 2 ) 05/09/2023 10:29 AM HYDRAULIC RIVETER Body Mass Index 44.99 05/09/2023 10:29 AM HYDRAULIC RIVETER documented in this encounter Progress Notes * Bertin Reilly MD - 05/09/2023 10:30 AM CST [facility] Return Visit 05/09/2023 Liliana Mancilla is a 32 y.o. at 38w0d who is here for a return OB visit. Her is complicated by GDMA2, Crohn's disease, obesity, history of delivery, history of LEEP, historyof preeclampsia. Subjective: She reports felling well, denies any vaginal bleeding, contractions, or leakage of fluid. Reports positive movement. Seen in [facility] on Friday for rule out labor. Patient has RUQ pain that improves with rest. Mild WHITE relieved by tylenol. No current symptoms. Reports BPs when appropriately taken are within normal limits. Worried about size of current fetus. Last Cachorro on 04/18 was 2746g (67%ile) BG all within normal limits on [employer] Hot [employer] Cutter. Objective: BP 123/81 Pulse 88 Ht 157.5 cm (5' 2 ) Wt 246 lb (111.6 kg) LMP 08/01/2022 SpO2 98% BMI44.99 kg/m?? General: NAD Heart: regular rate Lungs: non-labored respirations Abdomen: Soft, gravid, NT Extremities: WWP, no edema NST: Reactive Assessment/Plan: Liliana Mancilla is a 32 y.o. at 38w0d with a complicated by GDMA2, Crohn's disease, [...] Plan [] Send weekly glucose log through [employer] for review [] Twice weekly NSTs scheduled next Fri/Fri, complete for BPP and growth next week to evaluate size [x] Serial growth ultrasounds, complete [] Plan delivery by 39 weeks - IOL scheduled 2/2 [] 2 hour gtt 6 weeks Relevant Orders US Ob Follow Up [...] problem [x] Mode of delivery: anticipate vaginal Relevant Orders US Ob Follow Up Gravid and Obesity in , antepartum Overview - BMI: 44 - s/p counseling Plan [x] Specialized anatomy ultrasound [] Serial growth ultrasounds and testing per GDMA2 problem Relevant Orders US Ob Follow Up Supervision of high-risk , third trimester - Primary Overview [x] Full MFM Care; [x] Blue Team Referring Provider: Trent XAVIER) [phone] [] or Medicare Insurance [x] Dating Criteria: [...] vasectomy [x] Method of feeding: Breast [x] Programming Coordinator: Pb [x] PP Depression Discussed: Relevant Orders US Ob Follow Up Patient was seen and discussed with Dr. Collins who agrees with the above documented assessment and plan. Plan for Cachorro and BPP next week. IOL next Friday. Expectations reviewed. Reviewed WAC and preE precautions. Bertin Reilly MD Cosigned by America Collins MD at 05/13/2023 8:38 AM HYDRAULIC RIVETER AULIC RIVETER AULIC RIVETER Associated attestation - America Collins MD - 05/13/2023 8:38 AM HYDRAULIC RIVETER Attending Attestation I have personally seen and evaluated the patient, reviewed the documentation, and agree with the fellow's assessment and plan. America Collins MD Handhole Machine Operator Division of Maternal Medicine documented in this encounter Plan of Treatment Scheduled Orders Name Type Priority Associated Diagnoses Orde r Schedule US Ob Follow Up Imaging Schedule Routine , Read Routine (OP Routine) Supervision of high-risk , third trimester Insulin controlled gestational diabetes mellitus (GDM) in second trimester Obesity in , antepartum Crohn's disease of small intestine with other complication (HCC) Expected: 05/09/2023, Expires: 05/09/2024 documented as of this encounter Visit Diagnoses Diagnosis Supervision of high-risk , third trimester- Primary Insulin controlled gestational diabetes mellitus (GDM) in second trimester Obesity in , antepartum Obesity complicating , childbirth, or the puerperium, antepartum condition or complication Crohn's disease of small intestine with other complication (HCC) documented in this encounter Care Teams Waterworks Supervisor Relationship Specialty Start Date End Date Judy Fishman NP [address] [place] [id number] PCP - General 07/31/18 Jessica Martínez MD [address] [place] [id number] Consulting Physician Obstetrics and Gynecology 11/16/20 documented as of this encounter
--- OUTSIDE RECORDS SUMMARY | 2024-04-11 06:11 | XMS_ITS | Encounter Summary ---
Author Organization [facility] Address [address] [place] [address] Phone Care Team Providers Care Machinist Bench Name Role Phone Judy Fishman NP Primary Care Provider + Jessica Martínez MD Unavailable [phone] Reason for Referral * Diagnostic Imaging (Routine) - Closed Specialty Diagnoses / Procedures Referred By Contflora t Referred To Contact Diagnoses Crohn's disease of small intestine with other complication (HCC) Supervision of high-risk , first trimester NAFLD (nonalcoholic fatty liver disease) Procedures [place] [address] [place] [id number] Phone: tel: fax: [facility] (All Locations) Referral ID Status Reason Start Date Expiration Date Visits Re quested Visits Authorized [id number] Closed 02/21/2023 03/22/2024 1 1 F UNIT FORESTER Reason for Visit * Reason Comments High Risk Gestation Encounter Details Date Type Department Care Team (Latest Contact Info) Description 02/21/2023 11:45 AM CHIEF UNIT FORESTER Office Visit [facility] 7th Floor [address] [place] [address] Crohn's disease of small intestine with other complication (HCC) (Primary Dx); Supervision of high-risk , first trimester; NAFLD (nonalcoholic fatty liver disease); Need for Tdap vaccination; Insulin controlled gestational diabetes mellitus (GDM) in second trimester; Obesity in , antepartum; History of pre-eclampsia in prior , currently in first trimester; History of loop electrosurgical excision procedure (LEEP) of cervix affecting in first trimester; History of hemorrhage, currently Social History Tobacco Use Types Packs/Day Years [...] in a senior living (including now)? No 05/31/2021 [place] Depression Scale Answer Date Recorded [place] Depression Scale Total 2 07/10/2021 The thought of harming myself has occurred to me . Never 07/10/2021 Comments Yes Sex and Gender Information Value Date Recorded Sex Assigned at Not on file Legal Sex Female 7:54 PM CHIEF UNIT FORESTER Gender Identity Not on file Sexual Orientation Not on file documented as of this encounter Last Filed Vital Signs Vital Sign Reading Time Taken Comments Blood Pressure 117/80 02/21/2023 10:43 AM CHIEF UNIT FORESTER Pulse 82 02/21/2023 10:43 AM CHIEF UNIT FORESTER Temperature - - Respiratory Rate - - Oxygen Saturation 98% 02/21/2023 10:43 AM CHIEF UNIT FORESTER Inhaled Oxygen Concentration - - Weight 108.4 kg (239 lb) 02/21/2023 10:43 AM CHIEF UNIT FORESTER Height 157.5 cm (5' 2 ) 02/21/2023 10:43 AM CHIEF UNIT FORESTER Body Mass Index 43.71 02/21/2023 10:43 AM CHIEF UNIT FORESTER documented in this encounter Ordered Prescriptions Prescription Sig Dispense Quantity Refills Last Filled Start Date End Date insulin glargine (LANTUS) 100 unit/mL (3 mL) pen for injection Inject 10 units under the skin in the morning 15 mL 3 02/21/2023 pen needle, diabetic 33 gauge x 5/32 needle 1 INJECTIONS DAILY DIRECTED 100 each 2 02/21/2023 documented in this encounter Progress Notes * Qi Watkins MD - 02/21/2023 11:45 AM CST MFM Return Visit 02/21/2023 Liliana Mancilla is a 32 y.o. at 27w0d who is here for a return OB visit. Her is complicated by GDM with history of GDM, Crohn's disease, obesity, history of delivery, history of LEEP, history of preeclampsia. Subjective: She reports felling well, denies any vaginal bleeding, contractions, or leakage of fluid. Reports positive movement. She reports her Crohn's sx are well controlled. Taking colace and iron. No recent exacerbations. Reports episode last week of BP 144/94 with WHITE that then resolved with APAP and rest. Thinks BP was in setting of pain, but continuing to take BP. Since her last visit, she was diagnosed with GDM and have been taking her BG. Fasting with 2/6 elevated and post prandial breakfast almost all elevated 4/6. Other values at goal. Objective: BP 117/80 Pulse 82 Ht 157.5 cm (5' 2 ) Wt 239 lb (108.4 kg) LMP 08/01/2022 SpO2 98% BMI43.71 kg/m?? General: NAD Heart: regular rate Lungs: non-labored respirations Ultrasound: 02/21/2023 27w0d EFW 1051g (49%), breech, LATRICE normal, placenta posterior FHT present and wnl Assessment/Plan: Liliana Mancilla is a 32 y.o. at 27w0d with a complicated by history of GDM, Crohn's disease, obesity, history of delivery, history of LEEP, history of preeclampsia. Problem List Endocrine and Metabolic Gestational diabetes mellitus, with history of GDM Overview - History of GDM in G1 - Early screening with A1C, 5.7 on 10/04/22- follow- up 3hr normal - 3hr OGTT in 2T: 2/4 elevated (84, 183, 138, 143) -Current regimen: lantus 10U morning Counseling We discussed the management of a complicated by gestational diabetes. We reviewed the insulin insensitivity that occurs from , and the abnormal glucose metabolism that occurs. Overall risk is 17-20% for development of an adverse complication. The maternal risks of gestational diabetes include gestational hypertension, pre-eclampsia (complicates 3-7% of pregnancies andwomen who develop diabetes are at an increased risk (~9% per HAPO study GDM results), operative delivery, obstetrical trauma, and section. The risks include macrosomia, operative delivery and resultant injury, shoulder dystocia, hypoglycemia, and hyperbilirubinemia. We additionally discussed the reduction of the above risks with good glycemic control. We reviewed that the risk of developing type II diabetes for her in the next 5-10 years is as high as 50-70%. Because of these risks we recommend a 75 g 2 hr gtt at 6 weeks to evaluate the risk of overt diabetes. The recommended blood glucose monitoring regimen, which is fasting and 1-hour post-prandial daily. The goals are fasting glucose of <95 and a 1-hour post- prandial glucose of <140 as these have been associated with decreased risk of adverse outcomes. We discussed the use of a glucose log and instruction to return them to our office weekly for review. We discussed that medication may be required and this decision will be made based on our review of her weekly glucose logs. We reviewed the importance of diet in the management of GDM. A referral to see a leather stretcher/diabetes education was made. We recommended a growth scan in the third trimester, which has been scheduled for her. If she required medication for glycemic control, we would recommend initiating antepartum surveillance at 32 weeks. Well controlled gestational diabetes will not require delivery prior to 39 weeks or testing in the third trimester. Plan [] Send weekly glucose log through [employer] for review [] Twice weekly testing if medications needed [] Rate of growth ultrasounds [] Plan delivery by 39 weeks [] 2 hour gtt 6 weeks Current Assessment & Plan Recommend initiation of lantus 10U morning given elevated fasting and morning. Rx sent. Do not recommend metformin given Crohns. May consider mealtime with breakfast next review of logs. Relevant Medications insulin glargine (LANTUS) 100 unit/mL (3 mL) pen for injection Gastrointestinal and Abdominal Crohn's disease of small [...] vaginal Relevant Orders US Ob Follow Up NAFLD (nonalcoholic fatty liver disease) Relevant Orders US Ob Follow Up Gravid [...] gestation until delivery Current Assessment & Plan We reviewed recommendation in future to present for evaluation if has elevated BP and WHITE. Reassuring that WHITE resolved and BP today normotensive. Recommend daily BP monitoring given history. Patient has BP cuff at home that was validated at the time of receipt in last . Supervision of high-risk , first trimester Overview [x] Full MFM Care; [x] Blue Team Referring Provider: Trent XAVIER) [phone] [] or Medicare Insurance [x] Dating Criteria: [...] aware and supplies sent [x] Flu Shot (Sep-Dec):01/24/2023 [x] Tdap (27-36wks): 02/21/2023 3rd Tri Labs: [] CBC/HIV/RPR/T&S: [] GBS: [] GC/CT (if indicated): [] testing: Counseling [] MOD: [] Place of delivery: [] Last clinic visit SVE: [] IOL start agent: [] Epidural: [] Consents signed: [] MOC: Considering vasectomy vs reversible contraception for her. [] Method of feeding: [] Residential Director: [] PP Depression Discussed: Current Assessment & Plan Provided [email or web address] website to review. Relevant Orders US Ob Follow Up History of loop electrosurgical excision procedure (LEEP) [...] at time of delivery Summary of visit: -Start lantus 10U -Reviewed growth US -Tdap given -Briefly discussed contraception, considering vasectomy vs her and partner maybe considering another child and then would want reversible contraception -Reviewed pre-eclampsia precautions and recommendation to present if has additional elevated BPs orpersistent neuro sx RTC 2wks and in 4wks w/ growth US Patient was seen and discussed with Dr. Clemente. Qi Watkins MD [facility] Fellow Cosigned by Radha Clemente MD at 02/24/2023 12:58 PM CHIEF UNIT FORESTER F UNIT FORESTER F UNIT FORESTER Associated attestation - Radha Clemente MD - 02/24/2023 12:58 PM CHIEF UNIT FORESTER I have seen and examined the patient. I agree with the findings and plan of care as documented in the resident/fellow's note and as discussed with the resident/fellow. documented in this encounter Miscellaneous Notes * Assessment & Plan Note - Qi Watkins MD - 02/22/2023 11:29 AM CHIEF UNIT FORESTER Associated Problem(s): Supervision of high-risk , third trimester (Resolved 06/24/2023) Provided [email or web address] website to review. F UNIT FORESTER * Assessment & Plan Note - Qi Watkins MD - 02/22/2023 11:27 AM CHIEF UNIT FORESTER Associated Problem(s): History of pre-eclampsia in prior , currently in third trimester (Resolved 06/24/2023) We reviewed recommendation in future to present for evaluation if has elevated BP and WHITE. Reassuring that WHITE resolved and BP today normotensive. Recommend daily BP monitoring given history. Patient has BP cuff at home that was validated at the time of receipt in last . F UNIT FORESTER * Assessment & Plan Note - Qi Watkins MD - 02/22/2023 11:25 AM CHIEF UNIT FORESTER Associated Problem(s): Gestational diabetes mellitus, with history of GDM (Resolved 06/24/2023) Recommend initiation of lantus 10U morning given elevated fasting and morning. Rx sent. Do not recommend metformin given Crohns. May consider mealtime with breakfast next review of logs. F UNIT FORESTER F UNIT FORESTER documented in this encounter Plan of Treatment Not on file documented as of this encounter Results * US Ob Follow Up (03/21/2023 10:28 AM CHIEF UNIT FORESTER) Fetus# Fetus1 VIEWPOINT Estimated Weight 1,858 g&grams VIEWPOINT Placenta Details posterior, Previa-no VIEWPOINT Presentation Vertex VIEWPOINT Anatomical Region Laterality Modality Abdomen N/A Ultrasound 03/21/2023 10:2 8 AM CHIEF UNIT FORESTER Impressions 03/21/2023 4:16 PM CHIEF UNIT FORESTER 31 week IUP - AGA growth pattern, EFW 68th%. Vertex presentation. Normal LATRICE. Narrative Procedure Note Mary Ellen Hopkins MD - 03/21/2023 IMPRESSION: 31 week IUP - AGA growth pattern, EFW 68th%. Vertex presentation. NormalAFI. us Radha Clemente MD IMG OB US PROCEDURES Final Result documented in this encounter Visit Diagnoses Diagnosis Crohn's disease of small intestine with other complication (HCC)- Primary Supervision of high-risk , first trimester NAFLD (nonalcoholic fatty liver disease) Need for Tdap vaccination Need for prophylactic vaccination with combined qbikduylfg-wjplnao-wusudsfhb (DTP) vaccine Insulin controlled gestational diabetes mellitus (GDM) in second trimester Obesity in , antepartum Obesity complicating , childbirth, or the puerperium, antepartum condition or complication History of pre-eclampsia in prior , currently in first trimester History of loop electrosurgical excision procedure (LEEP) of cervix affecting in first trimester History of hemorrhage, currently with other poor obstetric history Crohn's disease of small intestine with other complication (HCC) Supervision of high-risk , first trimester NAFLD (nonalcoholic fatty liver disease) documented in this encounter Orders Immunization/Injection Count Last Ordered Date First Ordered Date TDAP VACCINE GREATER THAN OR EQUAL TO 7YO IM 1 02/21/2023 documented in this encounter Care Teams Machinist Bench Relationship Specialty Start Date End Date Judy Fishman NP [address] [address] PCP - General 07/31/18 Jessica Martínez MD [address] [address] Consulting Physician Obstetrics and Gynecology 11/16/20 documented as of this encounter
--- OUTSIDE RECORDS SUMMARY | 2024-04-11 06:11 | XMS_ITS | Encounter Summary ---
Author Organization [facility] Healthcare Address [address] [place] [address] Care Team Providers Care Section Beamer Name Role Phone Judy Fishman OXIDATION OPERATOR Primary Care Provider + Jessica Martínez MD Unavailable [phone] Reason for Visit * Reason Comments Leakage/Loss of Fluid Encounter Details Date Type Department Care Team (Latest Contact Info) Description 04/18/2023 12:26 PM DISTRIBUTION AGENT - 04/18/2023 2:54 PM DISTRIBUTION AGENT Hospital Encounter [address] [address] Eda Cevallos MD [address] [facility] [id number] [place] [address] Discharge Disposition: Discharge to home or self [...] do you attend up health system or lutheran services? 1 to 4 times per year 05/31/2021 Do you belong to any clubs o r organizations such as religious groups, unions, fraternal or athletic groups, or [...] in a alf (including now)? No 05/31/2021 [place] Depression Scale Answer Date Recorded [place] Depression Scale Total 2 07/10/2021 The thought of harming myself has occurred to me . Never 07/10/2021 Personal Safety Answer Date Recorded Getting School Help Needed Denies 03/25 Comments Yes Sex and Gender Information Value Date Recorded Sex Assigned at Not on file Legal Sex Female 7:54 PM DISTRIBUTION AGENT Gender Identity Not on file Sexual Orientation Not on file documented as of this encounter Last Filed Vital Signs Vital Sign Reading Time Taken Comments Blood Pressure 122/63 04/18/2023 12:38 PM DISTRIBUTION AGENT Pulse 85 04/18/2023 12:38 PM DISTRIBUTION AGENT Temperature 36.7 ??C (98.1 ??F) 04/18/2023 12:[address] Respiratory Rate 18 04/18/2023 12:38 PM DISTRIBUTION AGENT Oxygen Saturation 98% 04/18/2023 12:38 PM DISTRIBUTION AGENT Inhaled Oxygen Concentration - - Weight - - Height - - Body Mass Index - - documented in this encounter Discharge Instructions * Attachments The following attachments cannot be sent through Care Everywhere. * at 35 to 38 Weeks (AfterCare(R) Instructions(ER/ED)) (Grenadian) documented in this encounter Medications at Time [...] H&P Notes * Magi Gonzalez MD - 04/18/2023 1:47 PM CST Images from the original note were not included. Obstetrics H&P Chief Complaint: LOF and Ctxs/Vaginal Pressure Estimated Date of Delivery: 05/23/23 Provider: Jose Angel HPI: Liliana Mancilla is a 32 y.o. female at 35w0d gestation, dated by 1st trimester ultrasound. Pt presents to [facility] from [facility] appointment with complaint of LOF and ctxs/vaginal pressure. Reports that she has noticed that her underwear are slightly wet when she goes to use the restroom since yesterday and has been feeling increased vaginal pressure and occasional ctxs for the past day or so.Denies having a gush of fluid or LOF in between using the restroom. Denies VB, urinary symptoms, concern for infection or other OB related complaints at this time. Endorses feeling good movement. 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 History of Abnormal Pap: Yes STD History: none Past Medical History: Diagnosis [...] Binge Drinking: Not on file Support System: Not addressed Safe at home: Yes family history includes [...] (98.1 ??F)] 36.7 ??C (98.1 ??F) Pulse: [85-88] 85 Resp: [18] 18 BP: (122-128)/(63-85) 122/63 Physical Exam: General: NAD, mood appropriate Cardiovascular: HR and BP WNL Pulmonary: Unlabored breathing Abdomen: Gravid, non-tender Extremities: Warm and well perfused Speculum Exam: no pooling of fluid seen, blood negative, valsalva negative, Nitrizine test is negative, Ferning test is negative, external cervical os is visually closed, wet prep results: resulted at bedside: no pathogens and pH 5.5 Cervix: 1 /0 /Floating Monitoring: Baseline: 120bpm, Variability: Moderate, Accelerations: Present and Decelerations: None Uterine Activity: No contractions seen on toco Interpretation: Reactive Ultrasound: Vertex presentation Posterior placenta Previa: No BPP 8/8, LATRICE 9.5 and DVP 4.8 in office today BSUS performed in [facility]: Vertex, LATRICE 13.76 and DVP 4.78 Estimated Weight: 2746g/67% by US, date performed 04/18/2023 Labs: Lab Results Component Value Date ABORH B Positive 10/04/2022 IDCOOMB Negative 10/04/2022 [id number] Nonreactive 10/04/2022 [id number] NON-REACTIVE 05/25/2021 LABRPR Nonreactive 10/04/2022 RUBELIGG Reactive 10/04/2022 HEPBSAG Nonreactive 10/04/2022 GBS neg 05/24/2021 VZVIGG Reactive 10/04/2022 GBS swab collected in [facility] on 04/18/2023 Assessment and Plan #LOF and Ctxs/Vaginal Pressure -VSS, afebrile -POCT Urine Dip: SG 1.020, trace ketones and trace blood -ROM+ Swab: Negative -SSE: Unremarkable -SVE: 1/L/H -BSUS: Vertex, LATRICE 13.76 and DVP 4.78 -TOCO: no ctxs noted #gDM -POCT B #FWB -Pt endorses feeling good movement -EFM: Reactive, 120bpm baseline Plan discussed with Dr. Gonzalez. Pt dc'd home with return precautions and encouraged to keep next scheduled appointment on 04/25/2023. Katina Mcgee NP 04/18/23 MFM Fellow Attestation I have seen and discussed Liliana Mancilla with Katina Mcgee NP on 04/18/2023. I have evaluated the patient and reviewed the treatment plan and recommendations. I agree with the findings and the plan of care as documented in the above note with the following addendum: Briefly, this is a 32 y.o. at 35w0d with complicated by Crohn's disease, GDMA2, obesity, history of PTB, and history of PEC. She presents today for rule out labor and PPROM. Cervix 1/long/high with SSE negative for PPROM. NST reactive and reassuring in [facility]. Patient discharged home with plan for close outpatient follow up on 04/25. Strict return precautions discussed. Magi Gonzalez MD Maternal- Medicine Fellow, PGY-5 Cosigned by Eda Cevallos MD at 04/20/2023 11:32 AM DISTRIBUTION AGENT RIBUTION AGENT RIBUTION AGENT RIBUTION AGENT Associated attestation - Eda Cevallos MD - 04/20/2023 11:32 AM DISTRIBUTION AGENT I have reviewed the above note for Liliana Mancilla, and I agree with the documented plan by the fellow/MAYNOR. Eda Cevallos MD 04/20/2023 documented in this encounter Nursing Notes * Jose C Enriquez RN - 04/18/2023 2:54 PM CST R/o for ROM RIBUTION AGENT documented in this encounter Plan of Treatment Not on file documented as of this encounter Procedures Procedure Name Priority Date/Time Associated Diagnosis Comments POCT GLUCOSE DEVICE Routine 04/18/2023 2 :36 PM DISTRIBUTION AGENT PAMG-1 PROTEIN MARKER (ROM) Routine 04/18/2023 1:47 PM DISTRIBUTION AGENT GROUP B STREPTOCOCCUS CULTURE Routine 04/18/2023 1:47 PM DISTRIBUTION AGENT POCT URINALYSIS (CLINITEK) Routine 04/18/2023 12:52 PM DISTRIBUTION AGENT documented in this encounter Results * POCT glucose (04/18/2023 2:36 PM DISTRIBUTION AGENT) Glucose, POC 75 70 - 199 mg/dL [facility] Blood 04/18/2023 2:36 PM DISTRIBUTION AGENT 04/18/2023 2:36 PM DISTRIBUTION AGENT Eda Cevallos MD LAB POCT ORDERABLES - JACE CE Final Result [facility] Department [place] [address] * ROM Plus (IGFBP-1/AFP) (04/18/2023 1:47 PM DISTRIBUTION AGENT) IFG Binding Protein-1 / AFP Negative [facility] Swab 04/18/2023 1:47 PM DISTRIBUTION AGENT 04/18/2023 1:55 PM DISTRIBUTION AGENT Katina Mcgee NP LAB BODY FLUIDS AND STOOLS O RDERABLES Final Result [facility] Department [place] [address] * Group B streptococcal culture Vaginal/Rectal (04/18/2023 1:47 PM DISTRIBUTION AGENT) Report Final Report: Negative [facility] Vaginal/Rectal 04/18/2023 1: 47 PM DISTRIBUTION AGENT 04/18/2023 2:26 PM DISTRIBUTION AGENT Narrative [facility] - 04/21/2023 11:56 AM DISTRIBUTION AGENT Testing performed by [facility] ([phone]). us Katina Mcgee NP LAB MICROBIOLOGY - GENERAL O RDERABLES Final Result [facility] Department [place] [address] * (ABNORMAL) POCT urinalysis (Clinitek) (04/18/2023 12:52 PM DISTRIBUTION AGENT) Color, ur, POC Yellow Yellow [facility] Clarity, UA, POC Clear Clear [facility] Glucose, ur, POC Negative Negative [facility] Bilirubin, ur, POC Negative Negative [facility] Ketones, ur, POC Trace(A) Negative [facility] Specific gravity, ur, POC 1.020 1.010 - 1.025 [facility] Blood, ur, POC Trace(A) Negative [facility] pH, ur, POC 7.5 [facility] Comment: Interpretive Data Urine pH is affected by diet, medications, systemic acid-base disturbances, and renal tubular function. pH may affect urinary stone formation. For example, urine pH below 6.0 may help reduce the tendency for calcium phosphate stones and pH greater than 6.0 may reduce the tendency for uric acid stone formation. Source: [employer]. Last Revised Date: 04-24-2017 Protein, ur, POC Negative Negative [facility] Urobilinogen, ur, POC 0.2 mg/dL mg/dL [facility] Nitrites, ur, POC Negative Negative [facility] Leukocyte esterase, ur, POC 1+(A) Negative [facility] Urine 04/18/2023 12:5 2 PM DISTRIBUTION AGENT 04/18/2023 12:52 PM DISTRIBUTION AGENT us Eda Cevallos MD LAB POCT ORDERABLES - JACE CE Final Result [facility] Department [place] [address] documented in this encounter Visit Diagnoses Not on filedocumented in this encounter Orders Discharge Count Last Ordered Date First Orde red Date DISCHARGE PATIENT 1 04/18/2023 documented in this encounter Care Teams Section Beamer Relationship Specialty Start Date End Date Judy Fishman NP [address] [place] [address] PCP - General 07/31/18 Jessica Martínez MD [address] [address] Consulting Physician Obstetrics and Gynecology 11/16/20 documented as of this encounter
--- OUTSIDE RECORDS SUMMARY | 2024-04-11 06:11 | XMS_ITS | Encounter Summary ---
Author Organization [facility] Address [address] [place] [address] Care Team Providers Care Service Station Helper Name Role Phone Judy Fishman NP Primary Care Provider + Jessica Martínez MD Unavailable [phone] Reason for Visit * Reason Comments Vaginal Bleeding Encounter Details Date Type Department Care Team (Latest Contact Info) Description 01/31/2023 10:00 AM CDT - 01/31/2023 11:45 AM CDT Hospital Encounter [address] [address] Citlali Marcial MD [address] [id number] Discharge Disposition: Discharge to home or self [...] week 05/31/2021 How often do you attend [facility] or oriental orthodox services? 1 to 4 times per year 05/31/2021 Do you belong to any clubs o r organizations such as judaism groups, unions, fraternal or athletic groups, or [...] in a [facility] (including now)? No 05/31/2021 [place] Depression Scale Answer Date Recorded [place] Depression Scale Total 2 07/10/2021 The thought of harming myself has occurred to me . Never 07/10/2021 Comments Yes Sex and Gender Information Value Date Recorded Sex Assigned at Not on file Legal Sex Female 7:54 PM INSTRUCTIONAL ASSISTANT Gender Identity Not on file Sexual Orientation Not on file documented as of this encounter Last Filed Vital Signs Vital Sign Reading Time Taken Comments Blood Pressure 127/66 01/31/2023 10:15 AM CDT Pulse 72 01/31/2023 10:15 AM CDT Temperature 36.7 ??C (98.1 ??F) 01/31/2023 1 0:15 AM CDT Respiratory Rate 18 01/31/2023 10:1 5 AM CDT Oxygen Saturation 99% 01/31/2023 10: 15 AM CDT Inhaled Oxygen Concentration - - Weight 110.5 kg (243 lb 9.6 oz) 023 10:15 AM CDT Height 157.5 cm (5' 2 ) 01/31/2023 10:1 5 AM CDT Body Mass Index 44.56 01/31/2023 10:15 AM CDT documented in this encounter Discharge Instructions * Attachments The following attachments cannot be sent through Care Everywhere. * at 23 to 26 Weeks (Skiving Machine Operator) (German) documented in this encounter Medications at Time of Discharge acetaminophen 32 mg/mL aspirin 81 mg chewable tablet Chew 1 tablet every day by oral route. diphenhydrAMINE HCL 25 mg tablet,disintegra ting Take 25 mg by mouth every 4 (four) hours vit no.124/iron/folic ( VITAMIN ORAL) Take by mouth vedolizumab (ENTYVIO) 300 mg recon soln 5 mL (300 mg total) documented as of this encounter Discharge Disposition Disposition Code Departure Means Destination Discharge to home or self care documented in this encounter Progress Notes * Iram Ewing RN - 01/31/2023 11:07 AM CDT Duncan presented to [facility] for an episode of vaginal bleeding last night when having a BM, a drop in toilet and some on toilet paper when wiped, no pain and none today. NST reassuring, VSS, no further complaints. MANAGER POWER assessment complete. Urine sent to rule out UTI, will call if positive for UTI. Stable for d/c home, parking pass, discharge instructions and return precautions given. documented in this encounter H&P Notes * Magi Gonzalez MD - 01/31/2023 10:17 AM CDT Obstetrics H&P Chief Complaint: vaginal bleeding Estimated Date of Delivery: 05/23/23 Provider: YOUNG HPI: Liliana Velasco is a 32 y.o. female at 24w0d gestation, dated by 1st trimester ultrasound Her is complicated by history of PTD IOL at 36w5d for preeclampsia, hx GDM, hx PPH, hx LEEP, obesity, chrons Patient presents for complaint of VB with wiping overnight. She reports in the evening yesterday she had VB with BM, she noticed a spot. She had another episode overnight - she had a BM, noticed blood on toilet paper and then saw a drop in the toilet - it was small, but bright red in color. She believes it is vaginal and not rectal bleeding. It has not continued. No VB now. She denies pain. Reports good movement. Reports she has had constipation on and off, but has not really had in the last 2 weeks. She does have hx Chrons. Patient Denies: [x] Contractions [x] Shortness of [...] Name: GAYLA VELASCO Apgar1: 8 Apgar5: 9 LOTUS NOTES ADMINISTRATOR History: Patient's last menstrual period was 08/01/2022. History of Abnormal Pap: Yes, hx LEEP STD History: none Past Medical History: Diagnosis [...] d/c. # CV/Pulm: Chronic hypertension: No Diabetes: No Asthma: No Past Surgical History: Procedure Laterality Date ANKLE FRACTURE SURGERY Right 2009 CERVICAL BIOPSY W/ LOOP ELECTRODE EXCISION CHOLECYSTECTOMY 2018 Social History Tobacco Use Smoking status: Former Packs/day: .5 Types: Cigarettes Quit date: 10/03/2020 Years since quittin.3 Smokeless tobacco: Never Substance and Sexual Activity Drug use: Never Sexual activity: Yes Partners: Male control/protection: None Alcohol Use: Not At Risk (07/04/2022) AUDIT-C Frequency of Alcohol Consumption: Never Average Number of Drinks: Not on file Frequency of Binge Drinking: Not on file Support System: Supported by mom at bedside Safe at home: Yes family history includes [...] 32 mg/mL aspirin 81 mg chewable tablet diphenhydrAMINE HCL 25 mg tablet,disintegrating [facility] ranitidine () 150 mg tablet ondansetron ODT (ZOFRAN-ODT) 8 mg disintegrating tablet vit no.124/iron/folic ( VITAMIN ORAL) vedolizumab (ENTYVIO) 300 mg recon soln Review of Sys: Negative except per HPI Vitals: Temp: [36.7 ??C (98.1 ??F)] 36.7 ??C (98.1 ??F) Pulse: [72] 72 Resp: [18] 18 BP: (127)/(66) 127/66 Lab Review: Recent Results (from the past 24 hour(s)) POCT urinalysis (Clinitek) Collection Time: 01/31/23 10:06 AM Result Value Ref Range Color, ur, POC Yellow Yellow Clarity, UA, POC Clear Clear Glucose, ur, POC Negative Negative Bilirubin, ur, POC Negative Negative Ketones, ur, POC Negative Negative Specific gravity, ur, POC 1.020 1.010 - 1.025 Blood, ur, POC 2+ (A) Negative pH, ur, POC 7.5 Protein, ur, POC Negative Negative Urobilinogen, ur, POC 0.2 mg/dL mg/dL Nitrites, ur, POC Negative Negative Leukocyte esterase, ur, POC 2+ (A) Negative reviewed the laboratory result(s) Physical Exam: General: NAD, mood appropriate Cardiovascular: HR wnl, BP wnl Pulmonary: Unlabored, regular rate Abdomen: Gravid, non-tender Extremities: Warm and well perfused Speculum Exam: no blood in vagina, wet prep results: resulted at bedside: no pathogens Cervix: visually closed Small hemorrhoid noted, no active bleeding Monitoring: Baseline: 135 bpm, Variability: Moderate, Accelerations: Present and Decelerations: None Uterine Activity: No contractions seen on toco Interpretation: Reactive and reassuring tracing, appropriate for gestational age Ultrasound: Posterior placenta Previa: No Estimated Weight: 611g by US, date performed 01/24/2023 Labs: Lab Results Component Value Date ABORH B Positive 10/04/2022 IDCOOMB Negative 10/04/2022 [id number] Nonreactive 10/04/2022 [id number] NON-REACTIVE 05/25/2021 LABRPR Nonreactive 10/04/2022 RUBELIGG Reactive 10/04/2022 HEPBSAG Nonreactive 10/04/2022 GBS neg 05/24/2021 VZVIGG Reactive 10/04/2022 Patient Active Problem List Diagnosis Chronic diarrhea Crohn's disease of small intestine with other complication (HCC) NAFLD (nonalcoholic fatty liver disease) Obesity in , antepartum Skin rash Other specified diseases and conditions complicating History of pre-eclampsia in prior , currently in first trimester Supervision of high-risk , first trimester History of gestational diabetes in prior , currently History of loop electrosurgical excision procedure (LEEP) of cervix affecting in first trimester History of hemorrhage, currently Assessment and Plan Liliana Velasco is a 32 y.o. female at 24w0d who presented with vaginal bleeding more consistent with rectal bleeding from straining in setting of hemorrhoids #FWB reactive NST Reports good movement #Vaginal Bleeding Blood type B positive POCT UA with + blood and leukocytes Formal UA and urine culture sent. No symptoms of UTI Speculum Exam: no blood in vagina, wet prep results: resulted at bedside: no pathogens Cervix: visually closed Small hemorrhoid noted, no active bleeding. Patient has hemorrhoid ointment at home No contractions on toco. No complaints of pain Abdomen benign. No known previa on formal ultrasound 01/24/2023 No evidence of pre-term labor, cervicitis/vaginitis, or abruption. Plan discussed with Dr. Gonzalez. Lester for discharge to home. To keep next scheduled appointment. Return precautions given. LA NENA Stacy 01/31/23 MFM Fellow Attestation I have seen and discussed Liliana Velasco with Lachelle cox 01/31/2023. I have evaluated the patient and reviewed the treatment plan and recommendations. I agree with the findings and the plan of care as documented in the above note with the following addendum: Briefly, this is a 32 y.o. at 24w0d with complicated by history of iatrogenic PTB at 36w for PEC, hx LEEP, [place], and Crohn's disease who presents with 2 episodes of vaginal bleeding, each occurring after a BM. Reports scant amount of blood on the toilet paper with no bleeding since. Exam by MANAGER POWER reassuring with no blood visualized on speculum exam. Discussed bowel regimen to prevent constipation and straining with hemorrhoids. Return precautions discussed; stable for d/c home. Magi Gonzalez MD Maternal- Medicine Fellow, PGY-5 Cosigned by Citlali Marcial MD at 01/31/2023 3:02 PM CDT Associated attestation - Citlali Marcial MD - 01/31/2023 3:02 PM CDT Attending Attestation I have reviewed and agree with the plan of care as documented in the resident's/fellow's note. documented in this encounter Procedure Notes * Lachelle Babcock NP - 01/31/2023 11:02 AM CDT Procedures Liliana Velasco is a 32 y.o. female at 24w0d weeks gestation with Estimated Date of Delivery: 05/23/23. She presented with vaginal bleeding Time on the monitor: [id number] FHR Baseline: 135 Variability: moderate Accelerations: present Decelerations: absent Contractions: absent Reactive: Yes and reassuring tracing I have reviewed the NST: appropriate for gestational age, reactive and reassuring tracing. I have instructed the RN to take the patient off the monitor. DIEUDONNE Stacy-NILSA 01/31/23 Cosigned by Citlali Marcial MD at 01/31/2023 3:09 PM CDT Associated attestation - Citlali Marcial MD - 01/31/2023 3:09 PM CDT I have independently reviewed this tracing and found it to be reactive for GA documented in this encounter Plan of Treatment Not on file documented as of this encounter Procedures Procedure Name Priority Date/Time Associated Diagnosis Comments URINALYSIS AND REFLEX TO MICROSCOPIC Routine 01/31/2023 11:12 AM CDT URINALYSIS, MICROSCOPIC ONLY Routine 01/31/2023 11:12 AM CDT URINE CULTURE Routine 01/31/2023 11:12 AM CDT POCT URINALYSIS (CLINITEK) Routine 01/31/2023 10:06 AM CDT documented in this encounter Results * (ABNORMAL) Urinalysis, microscopic only (01/31/2023 11:12 AM CDT) WBC, ur 0-5 0 - 5 /HPF RBC, ur 0-2 0 - 2 /HPF [facility] Epithelial cells, squamous, ur 1-5 0 - 5 /HPF [facility] Bacteria, ur Trace(A) [facility] Urine 01/31/2023 11:1 2 AM CDT 01/31/2023 11:21 AM CDT us Lachelle Babcock MANAGER POWER LAB URINE ORDERABLES Final Res ult [facility] Department [place] [address] * (ABNORMAL) Urinalysis reflex to microscopic (01/31/2023 11:12 AM CDT) Color, ur Straw Yellow Clarity, ur Clear Clear [facility] Specific gravity, ur 1.011 1.003 - 1.[address] [facility] pH, urine 7.[address] [facility] Comment: Interpretive Data ? Urine pH is affected by diet, medications, systemic acid-base disturbances, and renal tubular function. ??pH may affect urinary stone formation. ??For example, urine pH below 6.0 may help reduce the tendency for calcium phosphate stones and pH greater than 6.0 may reduce the tendency for uric acid stone formation. Source: [facility] Spins[employer] Current Interpretive Data was last revised on 2017 Protein, ur ql Negative Negative [facility] Glucose, ur ql Negative Negative [facility] Ketones, ur 1+(A) Negative [facility] Bilirubin, ur Negative Negative [facility] Blood, ur Trace(A) Negative [facility] Urobilinogen, ur <2.0 <2.0 mg/dL [facility] Nitrite, ur Negative Negative [facility] Leukocyte esterase, ur 1+(A) Negative [facility] UA reflex comment Reflex to microscopic UA will be performed. [facility] Urine 01/31/2023 11:1 2 AM CDT 01/31/2023 11:21 AM CDT Lachelle Babcock NP LAB URINE ORDERABLES Final Res ult Performing Organization Address [facility] [place] de Phone Number [facility] Department [place] [address] * Urine culture Urine, clean voided (01/31/2023 11:12 AM CDT) Report Final Report: Less than 100,000 colonies/mL (clinically insignificant growth based on current clinical standards) [facility] Organism (CLINICALLY INSIGNIFICANT GROWTH [facility] Urine, clean voided 01/31/2023 11:12 AM CDT 02/01/2023 3:39 PM CDT Narrative [facility] - 02/02/2023 4:20 PM CDT Indications for Culture:-> patient Testing performed by [facility] Microbiology Laboratory ([phone]) Lachelle Babcock NP LAB MICROBIOLOGY - GENERAL ORD ERABLES Final Result Performing Organization Address [facility] de Phone Number [facility] Department [place] [address] * (ABNORMAL) POCT urinalysis (Clinitek) (01/31/2023 10:06 AM CDT) Color, ur, POC Yellow Yellow Clarity, UA, POC Clear Clear [facility] Glucose, ur, POC Negative Negative [facility] Bilirubin, ur, POC Negative Negative [facility] Ketones, ur, POC Negative Negative [facility] Specific gravity, ur, POC 1.020 1.010 - 1.[address] [facility] Blood, ur, POC 2+(A) Negative [facility] pH, ur, POC 7.[address] [facility] Comment: Interpretive Data Urine pH is affected by diet, medications, systemic acid-base disturbances, and renal tubular function. pH may affect urinary stone formation. For example, urine pH below 6.0 may help reduce the tendency for calcium phosphate stones and pH greater than 6.0 may reduce the tendency for uric acid stone formation. Source: [facility] Spins[employer]. Last Revised Date: 04-24-2017 Protein, ur, POC Negative Negative [facility] Urobilinogen, ur, POC 0.2 mg/dL mg/dL [facility] Nitrites, ur, POC Negative Negative [facility] Leukocyte esterase, ur, POC 2+(A) Negative [facility] Urine 01/31/2023 10:0 6 AM CDT 01/31/2023 10:06 AM CDT us Citlali Marcial MD LAB POCT ORDERABLES - DE VICE Final Result [facility] Department [place] [address] documented in this encounter Visit Diagnoses Not on filedocumented in this encounter Discontinued Medications Medication Sig Discontinue Reason Start Date End Da te [facility] ranitidine () 150 mg tablet TK 1 T PO BID FOR 15 DAYS Stop Taking at Discharge 01/31/2023 ondansetron ODT (ZOFRAN-ODT) 8 mg disintegrating tablet DIS 1 T ON THE TONGUE Q 8 H PRN Stop Taking at Discharge 01/31/2023 documented as of this encounter Orders Nursing Count Last Ordered Date First Orde red Date VITAL SIGNS 1 01/31/2023 Discharge Count Last Ordered Date First Orde red Date DISCHARGE PATIENT 1 01/31/2023 documented in this encounter Care Teams Service Station Helper Relationship Specialty Start Date End Date Judy Fishman NP [address] [address] PCP - General 07/31/18 Jessica Martínez MD [address] [place] [id number] Consulting Physician Obstetrics and Gynecology 11/16/20 documented as of this encounter
--- OUTSIDE RECORDS SUMMARY | 2024-04-11 06:11 | XMS_ITS | Encounter Summary ---
Author Organization [facility] Address [address] [place] [address] Phone Care Team Providers Care Marketing Development Representative Name Role Phone Judy Fishman NP Primary Care Provider + Jessica Martínez MD Unavailable [phone] Reason for Referral * Consultation (Routine) - Closed Specialty Diagnoses / Procedures Referred By Contac t Referred To Contact Diabetes and Nutrition Services Diagnoses Supervision of high-risk , first trimester Obesity in , antepartum Crohn's disease of small intestine with other complication (HCC) Diet controlled gestational diabetes mellitus (GDM) in second trimester Jane Montalvo MD [address] [address] Phone: tel: fax: [facility] Endocrinology Metabolism and Lipid [address] [facility] 13th [place] [address] [place] [address] Phone: tel: fax: Referral ID Status Reason Start Date Expiration Date V isits Requested Visits Authorized [id number] Closed Specialty Services Required 02/10/2023 03/11/2024 10 10 Question Answer [id number] No Service requested Diabetes Self-Management Education/Therapy (DSMT) + Medical Nutrition Therapy (MNT) DNCNRFR Gestational Diabetes Reason for Referral New Diagnosis [id number] None Complications/Comorbidities (Check all that apply): None [id number] Initial / Annual Follow-up MNT Please select the performing region: [facility] (All Locations) [167] Please select the performing department: [facility] EML CAM 13B [[id number]] # of visits: 10 Encounter Details Date Type Department Care Team (Late st Contact Info) Description 02/10/2023 Orders Only [facility] Maternal- Medicine [place] [id number] [facility] [address] [place] [address] Pauline Campos RN Supervision of high-risk , first trimester (Primary Dx); Obesity in , antepartum; Crohn's disease of [...] How often do you attend chur or anabaptist services? 1 to 4 times per year 05/31/2021 Do you belong to any clubs o r organizations such as zoroastrianism groups, unions, fraternal or athletic groups, or [...] a senior living (including now)? No 05/31/2021 [place] Depression Scale Answer Date Recorded [place] Depression Scale Total 2 07/10/2021 The thought of harming myself has occurred to me . Never 07/10/2021 Comments Yes Sex and Gender Information Value Date Recorded Sex Assigned at Not on file Legal Sex Female 7:54 PM RECRUITING SCHEDULER Gender Identity Not on file Sexual Orientation Not on file documented as of this encounter Ordered Prescriptions Prescription Sig Dispense Quantity Refills Last Filled Start Date End Date docusate sodium (COLACE) 100 mg capsuleIndication s:constipation Take 1 capsule (100 mg total) by mouth 2 (two) times a day as needed for constipation 60 capsule 3 02/10/2023 ferrous sulfate 325 mg (65 mg of elemental iron) tabletIndications :Iron Deficiency Anemia Take 1 tablet (325 mg total) by mouth every other day 15 tablet 3 02/10/2023 lancets 33 gauge misc CHECK GLUCOSE FASTING AND ONE HOUR AFTER EACH MEAL AND NEEDED, UP TO 8 TIMES PER WEEK 200 each 6 02/10/2023 blood glucose diagnostic strip Check glucose fasting and one hour after each meal and as needed, up to 8 times per day 200 each 6 02/10/2023 blood-glucose meter kit 1 kit once for 1 dose Please use to check your blood sugar values 4 times per day, fasting and 1 hour after each meal and as needed, up to 8 times per day. 1 kit 1 02/10/2023 documented in this encounter Plan of Treatment Scheduled Referrals Name Type Priority Associated Diagnoses Orde r Schedule Ambulatory referral to Diabetic Education & Nutrition Services Outpatient Referral Routine Supervision of high-risk , first trimester Obesity in , antepartum Crohn's disease of small intestine with other complication (HCC) Diet controlled gestational diabetes mellitus (GDM) in second trimester Expected: 02/24/2023 (Approximate), Expires: 02/11/2024 documented as of this encounter Visit Diagnoses Diagnosis Supervision of high-risk , first trimester- Primary Obesity in , antepartum Obesity complicating , childbirth, or the puerperium, antepartum condition or complication Crohn's disease of small intestine with other complication (HCC) Diet controlled gestational diabetes mellitus (GDM) in second trimester documented in this encounter Care Teams Marketing Development Representative Relationship Specialty Start Date End Date Judy Fishman NP [address] [address] PCP - General 07/31/18 Jessica Martínez MD [address] [address] Consulting Physician Obstetrics and Gynecology 11/16/20 documented as of this encounter
--- OUTSIDE RECORDS SUMMARY | 2024-04-11 06:11 | XMS_ITS | Encounter Summary ---
Author Organization [facility] Address [address] [place] [address] Phone Care Team Providers Care Newscast Producer Name Role Phone Judy Fishman NP Primary Care Provider + Jessica Martínez MD Unavailable [phone] Reason for Visit * Reason Onset Date Comments [facility] BLOOD PRESSURE LOGS 02/28/2023 Encounter Details Date Type Department Care Team (Late st Contact Info) Description 02/28/2023 Telephone [facility] Maternal- Medicine [facility] [address] [facility] [address] [place] [address] Rut Domínguez [facility] BLOOD PRESSURE LOGS Social History Tobacco Use Types Packs/Day [...] week 05/31/2021 How often do you attend [facility] or zoroastrian services? 1 to 4 times [...] health care facility (including now)? No 05/31/2021 [place] Depression Scale Answer Date Recorded [place] Depression Scale Total 2 07/10/2021 The thought of harming myself has occurred to me . Never 07/10/2021 Personal Safety Answer Date Recorded Getting School Help Needed Denies 03/25 Comments Yes Sex and Gender Information Value Date Recorded Sex Assigned at Not on file Legal Sex Female 7:54 PM LUBRICATION TECHNICIAN Gender Identity Not on file Sexual Orientation Not on file documented as of this encounter Miscellaneous Notes * Telephone Encounter - Pauline Campos RN - 04/25/2023 7:49 AM CST Images from the original note were not included. History of Pre-E, blood pressure values reviewed, WNL. ICATION TECHNICIAN * Telephone Encounter - Pauline Campos RN - 03/28/2023 11:34 AM CST Images from the original note were not included. History of Pre-E, weekly blood pressure log. Blood pressures have been reviewed and WNL. ICATION TECHNICIAN * Telephone Encounter - Rut Domínguez - 03/21/2023 9:58 AM CST Images from the original note were not included. Current log reviewed, wnl. ICATION TECHNICIAN * Telephone Encounter - Pauline Campos RN - 03/14/2023 12:17 PM CST Images from the original note were not included. History of Pre-E- Blood pressure values reviewed and WNL. Will review again next week. ICATION TECHNICIAN * Telephone Encounter - Rut Domínguez - 02/28/2023 8:51 AM CST Images from the original note were not included. History of Pre E ICATION TECHNICIAN documented in this encounter Plan of Treatment Not on file documented as of this encounter Visit Diagnoses Not on filedocumented in this encounter Care Teams Newscast Producer Relationship Specialty Start Date End Date Judy Fishman NP [address] [address] PCP - General 07/31/18 Jessica Martínez MD [address] [address] Consulting Physician Obstetrics and Gynecology 11/16/20 documented as of this encounter
--- OUTSIDE RECORDS SUMMARY | 2024-04-11 06:11 | XMS_ITS | Encounter Summary ---
Author Organization [facility] Healthcare Address [address] [place] [address] Care Team Providers Care Consulting Practice Manager Name Role Phone Judy Fishman FLOOR LAYER APPRENTICE Primary Care Provider + Jessica Martínez MD Unavailable [phone] Reason for Visit * Reason Onset Date Comments Incoming Call 05/05/2023 Encounter Details Date Type Department Care Team ([facility] Contact Info) Description 05/05/[address] [address] Kiesha Fowler RN Incoming Call Social History Tobacco Use Types Packs/Day Years [...] slept in a detention (including now)? No 05/05/2023 [place] Depression Scale Answer Date Recorded [place] Depression Scale Total 2 07/10/2021 The thought of harming myself has occurred to me . Never 07/10/2021 Personal Safety Answer Date Recorded Getting School Help Needed Denies 03/25 Comments Yes Sex and Gender Information Value Date Recorded Sex Assigned at Not on file Legal Sex Female 7:54 PM CELL ASSEMBLY PINNER Gender Identity Not on file Sexual Orientation Not on file documented as of this encounter Miscellaneous Notes * Telephone Encounter - Kiesha Fowler RN - 05/05/2023 7:59 PM CST Pt 37 wks with c/o noticing underwear and pants being wet. States every time she stands up she feels fluid coming out. Started about 1 hour ago. Baby moving around. Having some abd pain/contractions but nothing regular or real strong. Pt instructed to come in to the [facility] now to be evaluated for r/o ROM. Pt verbalizes understanding and states ok. ASSEMBLY PINNER documented in this encounter Plan of Treatment Not on file documented as of this encounter Visit Diagnoses Not on filedocumented in this encounter Care Teams Consulting Practice Manager Relationship Specialty Start Date End Date Judy Fishman NP [address] [facility] [id number] PCP - General 07/31/18 Jessica Martínez MD [address] [facility] [id number] Consulting Physician Obstetrics and Gynecology 11/16/20 documented as of this encounter
--- OUTSIDE RECORDS SUMMARY | 2024-04-11 06:11 | XMS_ITS | Encounter Summary ---
Author Organization [facility] Healthcare Address [address] [place] [address] Care Team Providers Care Machine Cleaner Name Role Phone Judy Fishman DIMENSION WAREHOUSE SUPERVISOR Primary Care Provider + Jessica Martínez MD Unavailable [phone] Reason for Referral * Diagnostic Imaging (Routine) - Closed Specialty Diagnoses / Procedures Referred By Contac t Referred To Contact Diagnoses History of pre-eclampsia in prior , currently in first trimester Supervision of high-risk , first trimester Procedures Ob Limited Jane Montalov MD [address] [place] [address] Phone: tel: fax: [facility] (All Locations) Referral ID Status Reason Start Date Expiration Date Visits Re quested Visits Authorized [id number] Closed 12/27/2022 01/26/2024 1 1 Reason for Visit * Diagnostic Imaging (Routine) - Closed Specialty Diagnoses / Procedures Referred By Mary roberson Referred To Contact Diagnoses History of pre-eclampsia in prior , currently in first trimester Supervision of high-risk , first trimester Procedures Ob Limited Jane Montalvo MD [address] [place] [address] Phone: tel: fax: [facility] (All Locations) Referral ID Status Reason Start Date Expiration Date Visits Re quested Visits Authorized [id number] Closed 12/27/2022 01/26/2024 1 1 Encounter Details Date Type Department Care Team (Latest Contact Info) Description 01/24/2023 10:03 AM CDT - 01/24/2023 11:59 PM CDT Hospital Encounter [facility]ound [address] [facility], [address], [address] [facility] [place] [address] History of pre-eclampsia in prior , currently in first trimester; Supervision of high-risk , first trimester Discharge [...] often do you attend chur ch or faith services? 1 to 4 times per year [...] money to buy more. Never true 05/31/19 Within the past 12 months, t he [...] place to sleep or slept in a prison (including now)? No 05/31/2021 [place] Depression Scale Answer Date Recorded [place] Depression Scale Total 2 07/10/2021 The thought of harming myself has occurred to me . Never 07/10/2021 Comments Yes Sex and Gender Information Value Date Recorded Sex Assigned at Not on file Legal Sex Female 7:54 PM HAM DOCTOR Gender Identity Not on file Sexual Orientation [...] recon soln 5 mL (300 mg total) INV-BJ ranitidine () 150 mg tablet TK 1 [...] Date/Time Associated Diagnosis Comments US OB LIMITED Schedule Routine, Read Routine (OP Routine) 01/24/2023 10:03 AM CDT History of pre-eclampsia in prior , currently in first trimester Supervision of high-risk , first trimester documented in this encounter Results * US Ob Limited (01/24/2023 10:03 AM CDT) Fetus# Fetus1 VIEWPOINT Estimated Weight 611 g&grams VIEWPOINT Placenta Details posterior, Previa-no VIEWPOINT Presentation Vertex VIEWPOINT Anatomical Region Laterality Modality Abdomen N/A Ultrasound 01/24/2023 10:0 4 AM CDT Impressions 01/24/2023 10:36 AM CDT Interval growth has been normal. ??The anatomical survey was completed today with no anomalies identified, but image resolution remains suboptimal due to maternal acoustic properties.IUP at 23 weeks Narrative Procedure Note Bernarda York MD - 01/24/2023 IMPRESSION: Interval growth has been normal. The anatomical survey wascompleted today with no anomalies identified, but image resolution remainssuboptimal due to maternal acoustic properties.IUP at 23 weeks us Jane Montalvo MD IMG OB US PROCEDURES Cee l Result documented in this encounter Visit Diagnoses Diagnosis History of pre-eclampsia in prior , currently in first trimester Supervision of high-risk , first trimester documented in this encounter Care Teams Machine Cleaner Relationship Specialty Start Date End Date Judy Fishman NP [address] [address] PCP - General 07/31/18 Jessica Martínez MD [address] [address] Consulting Physician Obstetrics and Gynecology 11/16/20 documented as of this encounter
--- OUTSIDE RECORDS SUMMARY | 2024-04-11 06:11 | XMS_ITS | Encounter Summary ---
Author Organization [facility] Address [address] [facility] [address] [place] [address] Phone Care Team Providers Care Court Of Appeals Judge Name Role Phone Judy Fishman NP Primary Care Provider + Jessica Martínez MD Unavailable [phone] Reason for Referral * (Routine) - Pending Review Specialty Diagnoses / Procedures Referred By Contac t Referred To Contact Diagnoses Gestational diabetes mellitus (GDM) in third trimester, gestational diabetes method of control unspecified Obesity in , antepartum Procedures nonstress test - Eda Cevallos MD [address] [facility] [id number] [place] [address] Phone: tel: fax: [facility] (All Locations) Referral ID Status Reason Start Date Expiration Date V isits Requested Visits Authorized [id number] Pending Review 04/03/2023 05/02/2024 1 1 FRAME LAMPSHADE MAKER Reason for Visit * Reason Comments Non-stress Test Encounter Details Date Type Department Care Team (Latest Contact Info) Description 04/03/2023 1:00 PM WIRE FRAME LAMPSHADE MAKER Clinical Support [facility] Obstetrics and Gynecology [facility] [address] [place] [address] Gestational diabetes mellitus (GDM) in third trimester, [...] in a senior care (including now)? No 05/31/2021 [place] Depression Scale Answer Date Recorded [place] Depression Scale Total 2 07/10/2021 The thought of harming myself has occurred to me . Never 07/10/2021 Personal Safety Answer Date Recorded Getting School Help Needed Denies 03/25 Comments Yes Sex and Gender Information Value Date Recorded Sex Assigned at Not on file Legal Sex Female 7:54 PM WIRE FRAME LAMPSHADE MAKER Gender Identity Not on file Sexual Orientation Not on file documented as of this encounter Plan of Treatment Not on file documented as of this encounter Procedures Procedure Name Priority Date/Time Associated Diagnosis Comments NONSTRESS TEST Routine 04/03/2023 1:[address] Gestational diabetes mellitus (GDM) in third trimester, gestational diabetes method of control unspecified Obesity in , antepartum documented in this encounter Results * nonstress test - (04/03/2023 1:29 PM WIRE FRAME LAMPSHADE MAKER) Eda Cevallos MD OB GYNE ORDERABLES Final R esult documented in this encounter Visit Diagnoses Diagnosis Gestational diabetes mellitus (GDM) in third trimester, gestational diabetes method of control unspecified- Primary Obesity in , antepartum Obesity complicating , childbirth, or the puerperium, antepartum condition or complication documented in this encounter Care Teams Court Of Appeals Judge Relationship Specialty Start Date End Date Judy Fishman NP [address] [address] PCP - General 07/31/18 Jessica Martínez MD [address] [address] Consulting Physician Obstetrics and Gynecology 11/16/20 documented as of this encounter
--- OUTSIDE RECORDS SUMMARY | 2024-04-11 06:12 | XMS_ITS | Encounter Summary ---
Author Organization [facility] Address [address] [place] [address] Care Team Providers Care Arc Welding Machine Operator Name Role Phone Judy Fishman ROUTE INSPECTOR Primary Care Provider + Jessica Martínez MD Unavailable [phone] Reason for Visit * Auth/Cert (Routine) Specialty Diagnoses / Procedures Referred By Mary t Referred To Contact Diagnoses Chronic diarrhea Crohn's disease of small intestine with other complication (HCC) Chronic diarrhea [K52.9] Crohn's disease of small intestine with other complication (HCC) [K50.018] Procedures DC COLONOSCOPY FLX DX W/COLLJ SPEC WHEN PFRMD COLONOSCOPY Referral ID Status Reason Start Date Expiration Date Visits Re quested Visits Authorized [id number] 1 1 Encounter Details Date Type Department Care Team (Latest Contact Info) Description 07/04/2022 11:30 AM CDT - 07/04/2022 3:23 PM CDT Hospital Encounter [facility] [id number] [facility] [address] Trent Severino MD [address] [place] [address] Chronic diarrhea; Crohn's disease of small intestine with other [...] often do you attend chur ch or baptist services? 1 to 4 times [...] slept in a intermediate (including now)? No 05/31/2021 [place] Depression Scale Answer Date Recorded [place] Depression Scale Total 2 07/10/2021 The thought of harming myself has occurred to me . 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 Gender Identity Not on file Sexual Orientation Not on file documented as of this encounter Last Filed Vital Signs Vital Sign Reading Time Taken Comments Blood Pressure 104/59 07/04/2022 3:01 PM CDT Pulse 52 07/04/2022 3:01 PM CDT Temperature 36.3 ??C (97.3 ??F) 07/04/2022 2:29 PM CD T Respiratory Rate 16 07/04/2022 3:01 PM CDT Oxygen Saturation 98% 07/04/2022 3:01 PM CDT Inhaled Oxygen Concentration - - Weight 104.3 kg (230 lb) 07/04/2022 11:35 AM CDT Height 157.5 cm (5' 2 ) 07/04/2022 11:35 AM CDT Body Mass Index 42.07 07/04/2022 11:35 AM CDT documented in this encounter Discharge Instructions * Attachments The following attachments cannot be sent through Care Everywhere. * Colonoscopy (Discharge Care) (Thai) documented in this encounter Medications at Time of Discharge vit no.124/iron/folic ( VITAMIN ORAL) Take by mouth vedolizumab (ENTYVIO) 300 mg recon soln 5 mL (300 mg total) documented as of this encounter Discharge Disposition Disposition Code Departure Means Destination Comment s Discharge to home or self care documented in this encounter H&P Notes * Trent Severino MD - 07/04/2022 1:30 PM CDT I have reviewed the H&P, examined the patient, and endorse the findings as written. Plan of Care : Based on the above findings, I consider Liliana Velasco to be an acceptable risk for: Procedure(s): COLONOSCOPY Source Note - Gagan Dye MD - 07/04/2022 11:44 AM CDT Images from the original note were not included. Anesthesia Evaluation Liliana Velasco is a 31 y.o. female Procedure(s): COLONOSCOPY Pre-Op Diagnosis Codes: * Chronic diarrhea [K52.9] * Crohn's disease of small intestine with other complication (HCC) [K50.018] Patient Active Problem List Diagnosis ??? Chronic diarrhea ??? Iron deficiency anemia due to chronic blood loss ??? Crohn's disease of small intestine with other complication (HCC) ??? Healthcare maintenance ??? High risk medications (not anticoagulants) long-term use ??? NAFLD (nonalcoholic fatty liver disease) ??? BMI 40.0-44.9, adult (HCC) ??? Prediabetes ??? care following vaginal delivery ??? Hypertension in , preeclampsia, delivered ??? Cardiac risk counseling ??? Skin rash Past Medical History: Diagnosis Date ??? Autoimmune disorder (CMS/HCC) (HCC) ??? Crohn's disease (CMS/HCC) (HCC) 2018 ??? Diabetes mellitus (HCC) GDM Past Surgical History: Procedure Laterality Date ??? ANKLE FRACTURE SURGERY Right 2008 ??? CERVICAL BIOPSY W/ LOOP ELECTRODE EXCISION ??? CHOLECYSTECTOMY 2018 OB History 1 Para 1 Term 1 AB Living 1 SAB IAB Ectopic Multiple 0 Live Births 1 Allergies Allergen Reactions ??? Cefdinir Swelling ??? Clindamycin Swelling ??? Iodine Rash ??? Povidone-Iodine Rash And chlorahexadine ??? Sulfa (Sulfonamide Antibiotics) Swelling ??? Morphine Itching Taking? Last Dose Start Date End Date Provider vit no.124/iron/folic ( VITAMIN ORAL) -- -- -- ProviderAlejandro MD vedolizumab (ENTYVIO) 300 mg recon soln -- -- -- Alejandro Tolentino MD No current facility-administered medications for this encounter. Social History Tobacco Use Smoking Status Former ??? Packs/day: 0.50 ??? Types: Cigarettes ??? Quit date: 10/03/2020 ??? Years since quittin.7 Smokeless Tobacco Never Alcohol Use: Not on file Substance and Sexual Activity Drug Use Never Family History Problem Relation Age of Onset ??? Diabetes Mother ??? Hypertension Mother ??? Cancer Mother's Sister ??? Cancer Maternal Grandmother ??? Cancer Maternal Grandfather ??? Diabetes Maternal Grandfather ??? Cancer Paternal Grandmother ??? Ulcerative colitis Paternal cousin ??? Crohn's disease Paternal cousin Vitals: 07/04/22 1135 Temp: 36.3 ??C (97.3 ??F) PT: No results found for requested labs within last 720 hours. INR: No results found for requested labs within last 720 hours. APTT: No results found for requested labs within last 720 hours. Hgb A1C: No results found for requested labs within last 720 hours. CBC RBC: No results found for requested labs within last 720 hours. RDW: No results found for requested labs within last 720 hours. MCHC: No results found for requested labs within last 720 hours. MCH: No results found for requested labs within last 720 hours. MCV: No results found for requested labs within last 720 hours. Hct: No results found for requested labs within last 720 hours. Hgb: No results found for requested labs within last 720 hours. WBC: No results found for requested labs within last 720 hours. MPV: No results found for requested labs within last 720 hours. Platelets: No results found for requested labs within last 720 hours. RDW CV: No results found for requested labs within last 720 hours. RDW Sd: No results found for requested labs within last 720 hours. BMP Glucose: No results found for requested labs within last 720 hours. Calcium: No results found for requested labs within last 720 hours. Sodium: No results found for requested labs within last 720 hours. Potassium: No results found for requested labs within last 720 hours. CO2: No results found for requested labs within last 720 hours. Chloride: No results found for requested labs within last 720 hours. BUN: No results found for requested labs within last 720 hours. Creatinine: No results found for requested labs within last 720 hours. DOS Physical Exam Medical history, medications, and allergies reviewed. Attestation: This PAT evaluation Airway Exam: Mallampati: I Cervical ROM: FROM Cardiovascular Exam: Rate: regular Rhythm: regular Pulmonary Exam: LCTA, bilat Anesthesia Plan ASA 2 My patient is approved for the Anesthesia Controlled Medication protocol when under care of a REMOTE SENSING TECHNICIAN Planned anesthesia: General Informed Consent: Anesthesia plan and risks discussed with patient. Consent and Attending signature: I and/or my designee have discussed the anesthesia plan, benefits, possible alternatives, parental presence at time of induction (if indicated), and clinically relevant risks that may include dental injury, unintentional awareness, and/or other complications. The patient and/or parent/legal guardian understand, and agree to proceed. All questions answered. documented in this encounter Procedure Notes * Trent Severino MD - 07/04/2022 1:48 PM CDTAssociated Order(s): COLONOSCOPY ENDOSCOPY LAB Patient Name: Liliana Velasco Procedure Date: 07/04/2022 1:48 PM Date of : 1990 Admit Type: Outpatient Age: 31 Gender: Female Attending MD: Trent Severino M.D. Room: [facility] ENDOSCOPY ROOM 04 Note Status: Finalized Procedure: Colonoscopy Indications: Disease activity assessment of Crohn's disease of the small bowel and colon Providers: Trent Severino M.D. Referring MD: LORE Conroy Medicines: Monitored Anesthesia Care Complications: No immediate complications. Estimated blood loss: Minimal. Estimated Blood Loss: Estimated blood loss was minimal. Procedure: Pre-Anesthesia Assessment: - Using IV propofol under the supervision of an anesthesiologist was determined to be medically necessary for this procedure based on review of the patient's medical history, medications, and prior anesthesia history. The benefits, risks and alternatives of the procedure and sedation were discussed and informed consent was obtained. All questions were answered. Please refer to the signed informed consent document in the medical record. The scope was passed under direct vision. The [id number] was introduced through the anus and advanced to 10 cm into the ileum. The colonoscopy was performed without difficulty. Bowel prep was administered using a split dose. Findings: The perianal and digital rectal examinations were normal. The Simple Endoscopic Score for Crohn's Disease was determined based on the endoscopic appearance of the mucosa in the following segments: - Ileum: Findings include no ulcers present, no ulcerated surfaces, no affected surfaces and no narrowings. Segment score: 0. - Right Colon: Findings include no ulcers present, no ulcerated surfaces, no affected surfaces and no narrowings. Segment score: 0. - Transverse Colon: Findings include no ulcers present, no ulcerated surfaces, no affected surfaces and no narrowings. Segment score: 0. - Left Colon: Findings include no ulcers present, no ulcerated surfaces, no affected surfaces and no narrowings. Segment score: 0. - Rectum: Findings include no ulcers present, no ulcerated surfaces, no affected surfaces and no narrowings. Segment score: 0. - Total SES-CD aggregate score: 0. Biopsies were taken with a cold forceps for histology. The retroflexed view of the distal rectum and anal verge was normal and showed no anal or rectal abnormalities. Impression: - Simple Endoscopic Score for Crohn's Disease: 0, mucosal inflammatory changes secondary to Crohn's disease, in remission. Biopsied. - The distal rectum and anal verge are normal on retroflexion view. Recommendation: - Await pathology results. - Continue present medications. Electronically signed by Trent Severino MD Trent Severino M.D. 07/04/2022 2:34:33 PM Number of Addenda: 0 Note Initiated On: 07/04/2022 1:48 PM documented in this encounter Miscellaneous Notes * Perioperative Nursing Note - Teena Macias RN - 07/04/2022 2:43 PM CDT Pt A & O x4, VSS, tolerating PO, spoke with MD, discharge instructions reviewed No questions noted * Pre-Procedure Instructions - Portia Sr RN - 07/02/2022 4:55 PM CDT Please follow any instruction you were given re:Bowel prep When you arrive come to [facility] hospital entrance. As you enter there will be an information desk-let them know you are here for a procedure and they will direct you to procedure registration area. Once registered one of the endoscopy nurses will come to get you ready for your procedure. Dress comfortable, leave any valuables at home, specifically lundberg, jewelry. For your safety due to the anesthesia you will not be able to drive so please have a ride arranged to and from hospital with a responsible adult. Masking at [facility] is now optional. You may bring a mask and masks are available at hospital entrance. We respect personal choice of anyone who chooses to wear a mask. Please be reassured all employees are ready to mask when providing care upon your request If your otr refrigerated cdl truck driver chooses not to come in or will be picking you up after your procedure with anesthesia we will call your otr refrigerated cdl truck driver to confirm your ride home. documented in this encounter Plan of Treatment Not on file documented as of this encounter Procedures Procedure Name Priority Date/Time Associated Diagnosis Comments SURGICAL PATHOLOGY Routine 07/04/2022 2: 09 PM CDT Chronic diarrhea Crohn's disease of small intestine with other complication (HCC) COLONOSCOPY 07/04/2022 1:48 PM CDT COLON BIOPSY 07/04/2022 1:43 PM CDT Chronic diarrhea Crohn's disease of small intestine with other complication (HCC) POCT HCG, URINE Routine 07/04/2022 11:50 AM CDT documented in this encounter Results * Surgical pathology (07/04/2022 2:09 PM CDT) Tissue (Ileum, Biopsy) 07/04/2022 2:09 PM CDT Tissue (Colon, Biopsy) 07/04/2022 2:09 PM CDT Tissue (Colon, Biopsy) 07/04/2022 2:10 PM CDT Narrative PATHOLOGY [facility] - 07/05/2022 10:58 AM CDT EPIC results best viewed via link to PDF [facility] [place] [address] Note to Patients: This report may contain [...] LILIANA VELASCO Gender: ??F : ??1990 (Age: 31) Address: ??[address], [place] ??[address] Hospital #: ??[id number] Taken:07/04/2022 Received:07/04/2022 Reported: 07/05/2022 Patient Type: [facility] EP SAME Client ?[facility] Service: Gastroenterology Location: Physician(s): ??Parakkal Maycol, M.D. Judy Fishman NP Diagnosis: A. Small bowel, terminal ileum, biopsy ? - Ileal mucosa with mild villous blunting and reactive epithelial changes ? - Negative for granulomas and dysplasia B. Large bowel, right colon, biopsy ? - Normal colonic mucosa C. Large bowel, left colon, biopsy ? - ??Normal colonic mucosa mso/07/05/2022 07:16 By this signature, I attest that the above diagnosis is based upon my personal examination of the slides(and/or other material indicated in the diagnosis). Cyndi Fowler MD Report Electronically Reviewed and Signed Out By ??Cyndi Fowler MD 07/05/2022 10:58:28 Microscopic Description and Comment: Microscopic examination substantiates the above cited diagnosis. Miguel Thomas M.D. History: The patient is a 31-year-old woman presenting with chronic diarrhea; Crohn's disease of small intestine with other complication. ??Operative procedure: ??Colon biopsy. Specimen(s) Received: A: Terminal ileum B: Right colon C: Left colon Gross Description: Received in three formalin jars labeled with the patient's identifiers. A. ??Labeled terminal ileum and consists of multiple ortega fragment(s) of soft tissue measuring 0.8 x 0.6 x 0.2 cm in aggregate. ?? Labeled A1. Jar 0. B. ??Labeled right colon and consists of multiple ortega-yellow fragment(s) of soft tissue measuring 1.0 x 0.8 x 0.2 cm in aggregate. ?? Labeled B1. Jar 0. C. ??Labeled left colon and consists of multiple ortega-red fragment(s) of soft tissue measuring 1.1 x 0.4 x 0.2 cm in aggregate. ?? Labeled C1. Jar 0. ?? sxst/07/04/2022 18:38 PA(s): Kimber Grissom By this signature, I attest that the above diagnosis is based upon my personal examination of the slides(and/or other material). Addenda/Procedures Microscopic slide review and interpretation for this case was performed at [facility], Department of Surgical Pathology, [address] [facility] [place] [id number], ??[place], [place] ??[address] ?? CLIA # [id number] The performance characteristics of some immunohistochemical stains, fluorescence in-situ hybridization tests and immunophenotyping by flow cytometry cited in this report (if any) were determined by the Surgical Pathology and Flow Cytometry Departments at [facility] as part of an ongoing ict quality assurance engineer program and in compliance with federally mandated [...] Surgical Pathology and Flow Cytometry Departments of [facility]. ??It has not been cleared or approved by the U. S. Food and Drug Administration. IMAGES AND SCANNED DOCUMENTS, IF INCLUDED, ONLY VIEWABLE IN PDF VERSION OF REPORT Trent Severino MD LAB PATHOLOGY ORDERABLES Cee l Result PATHOLOGY [facility] [phone] * COLONOSCOPY (07/04/2022 1:48 PM CDT) Anatomical Region Laterality Modality Other Narrative Procedure Note Trent Severino MD - 07/04/2022 1:48 PM CDT ENDOSCOPY LAB Patient Name: Liliana Velasco Procedure Date: 07/04/2022 1:48 PM Date of : 1990 Admit Type: Outpatient Age: 31 Gender: Female Attending MD: Trent Severino M.D. Room: [facility] ENDOSCOPY ROOM 04 Note Status: Finalized Procedure: Colonoscopy Indications: Disease activity assessment of Crohn's disease ofthe small bowel and colon Providers: Trent Severino M.D. Referring MD: LORE Conroy Medicines: Monitored Anesthesia Care Complications: No immediate complications. Estimated blood loss: Minimal. Estimated Blood Loss: Estimated blood loss was minimal. Procedure: Pre-Anesthesia Assessment: - Using IV propofol under the supervision of an anesthesiologist was determined to be medically necessary for this procedure based on review of the patient's medical history, medications, and prior anesthesia history. The benefits, risks and alternatives of theprocedure and sedation were discussed and informed consentwas obtained. All questions were answered. Please referto the signed informed consent document in the medical record. The scope was passed under direct vision.The [id number] was introduced through the anusand advanced to 10 cm into the ileum. The colonoscopywas performed without difficulty. Bowel prep was administered using a split dose. Findings: The perianal and digital rectal examinations were normal. The Simple Endoscopic Score for Crohn's Disease was determined basedon the endoscopic appearance of the mucosa in the following segments: - Ileum: Findings include no ulcers present, no ulcerated surfaces,no affected surfaces and no narrowings. Segment score: 0. - Right Colon: Findings include no ulcers present, no ulcerated surfaces, no affected surfaces and no narrowings. Segment score: 0. - Transverse Colon: Findings include no ulcers present, no ulcerated surfaces, no affected surfaces and no narrowings. Segment score: 0. - Left Colon: Findings include no ulcers present, no ulceratedsurfaces, no affected surfaces and no narrowings. Segment score: 0. - Rectum: Findings include no ulcers present, no ulcerated surfaces,no affected surfaces and no narrowings. Segment score: 0. - Total SES-CD aggregate score: 0. Biopsies were taken with a cold forceps for histology. The retroflexed view of the distal rectum and anal verge was normaland showed no anal or rectal abnormalities. Impression: - Simple Endoscopic Score for Crohn's Disease: 0, mucosal inflammatory changes secondary to Crohn's disease, in remission. Biopsied. - The distal rectum and anal verge are normal on retroflexion view. Recommendation: - Await pathology results. - Continue present medications. Electronically signed by Trent Severino MD Trent Severino M.D. 07/04/2022 2:34:33 PM Number of Addenda: 0 Note Initiated On: 07/04/2022 1:48 PM Trent Severino MD ENDOSCOPY PROCEDURES Final Re sult * POCT hCG, urine (07/04/2022 11:50 AM CDT) HCG, ur, POC Negative Lot Number [id number] QC Backgroud Clear Acceptable QC Control Line Acceptable Urine 07/04/2022 11:5 0 AM CDT us Historical Provider POINT OF CARE TEST ORDERA BLES Final Result documented in this encounter Visit Diagnoses Diagnosis Chronic diarrhea Diarrhea Crohn's disease of small intestine with other complication (HCC) documented in this encounter Admitting Diagnoses Diagnosis Chronic diarrhea Diarrhea Crohn's disease of small intestine with other complication (HCC) documented in this encounter Administered Medications Inactive Administered Medications - up to 3 most recent administrations Medication Order MAR Action Action Date Dose Rate Site ondansetron (ZOFRAN) injection 4 mg 4 mg, intravenous, Administer over 2 Minutes, Every 6 hours PRN, nausea, vomiting, Starting on May 07/04/22 at 1152, Pre-Procedure (GI) sodium chloride 0.9% flush 0.5-20 mL 0.5-20 mL, intra-catheter, As needed, line care, Starting on May 07/04/22 at 1152, Pre-Procedure (GI), Flush volume based on line type and size. Flush before and after each use. , Indications: FlushingIndications:Flushing sodium chloride 0.9% infusion 30 mL/hr, intravenous, Continuous, Starting on May 07/04/22 at 1230 New Bag 07/04/2022 2:09 PM CDT New Bag 07/04/2022 1:42 PM CDT documented in this encounter Historical Medications * This list may reflect changes made after this encounter. vit no.124/iron/folic ( VITAMIN ORAL) Take by mouth added in this encounter Active and Recently Administered Medications Times are shown in CDT. Continuous Medication Order 07/02/2022 07/03/2022 07/04/2022 sodium chloride 0.9% infusion 30 mL/hr, intravenous, Continuous, Starting on May 07/04/22 at 1230 1342 (New Bag - Prov ider: Radha Dye CRNA - Comment: started in preop)1409 (New Bag - Provider: Radha Dye CRNA)1424 (Anesthesia Volume Adjustment - Provider: Radha Dye CRNA)1443 (Stopped - Provider: Teena Macias RN) sodium chloride 0.9% infusion 125 mL/hr, intravenous, Continuous, Starting on May 07/04/22 at 1515, Recovery (GI) 1443 (Stopped - Prov ider: Teena Macias RN - Comment: Not needed) PRN Medication Order 07/02/2022 07/03/2022 07/04/2022 ondansetron (ZOFRAN) injection 4 mg 4 mg, intravenous, Administer over 2 Minutes, Every 6 hours PRN, nausea, vomiting, Starting on May 07/04/22 at 1152, Pre-Procedure (GI) ondansetron (ZOFRAN) injection 4 mg 4 mg, intravenous, Administer over 2 Minutes, Every 30 min PRN, nausea, vomiting, Starting on May 07/04/22 at 1430, For 2 doses, Recovery (GI), Indications: Nausea and Vomiting simethicone (MYLICON) 66.7 mg/mL oral drops (CANCELED) As needed, Starting on May 07/04/22 at 1401, Intra-Op 1401 (Given - Provid er: Trent Severnio MD) sodium chloride 0.9% flush 0.5-20 mL 0.5-20 mL, intra-catheter, As needed, line care, Starting on May 07/04/22 at 1152, Pre-Procedure (GI), Flush volume based on line type and size. Flush before and after each use. , Indications: Flushing documented in this encounter Orders Medications Ordered That Jonathan ht Not Have Been Administered Count Last Ordered Date First Ordered Date ondansetron (ZOFRAN) injection 4 mg 2 07/04 simethicone (MYLICON) 66.7 m g/mL oral drops 1 07/04/2022 sodium chloride 0.9% flush 0.5-20 mL 1 06/13 sodium chloride 0.9% infusion 2 07/04/2022 Discharge Count Last Ordered Date First Orde red Date DISCHARGE PATIENT 1 07/04/2022 documented in this encounter Care Teams Arc Welding Machine Operator Relationship Specialty Start Date End Date Judy Fishman NP [address] [address] PCP - General 07/31/18 Jessica Martínez MD [address] [address] Consulting Physician Obstetrics and Gynecology 11/16/20 documented as of this encounter
--- OUTSIDE RECORDS SUMMARY | 2024-04-11 06:12 | XMS_ITS | Encounter Summary ---
Author Organization [facility] Address [address] [place] [address] Care Team Providers Care Overhead Irrigator Name Role Phone Judy Fishman INSECTICIDE MIXER Primary Care Provider + Jessica Martínez MD Unavailable [phone] Reason for Visit * Auth/Cert (Routine) Specialty Diagnoses / Procedures Referred By Contflora t Referred To Contact Diagnoses Chronic diarrhea Crohn's disease of small intestine with other complication (HCC) Chronic diarrhea [K52.9] Crohn's disease of small intestine with other complication (HCC) [K50.018] Procedures [place] COLONOSCOPY FLX DX W/COLLJ SPEC WHEN PFRMD COLONOSCOPY Referral ID Status Reason Start Date Expiration Date Visits Re quested Visits Authorized [id number] 1 1 Encounter Details Date Type Department Care Team (Late st Contact Info) Description 07/04/2022 1:42 PM CDT Anesthesia Event [facility] [address] [place] [address] Ramírez Covington MD [address] [place] [address] [place] [address] [place] [address] Anesthesia Record Procedure Summary Procedure Name Responsible Anesthesiologist Anesthesia Start Time Anesthesia Stop Time COLON BIOPSY Ramírez Covington MD 07/04/22 1342 1431 Events Date Time Event Comment 07/04/2022 1144 1334 AN Equip Check 1342 An Start 1342 An Start Data 1343 In Room 1343 Start Supplemental O2 1343 Patient Positioned Laterally 1344 An Induction The patient was reevaluated immediately before moderate or deep sedation use and before anesthesia induction. 1344 Anesthesia Ready 1351 Proc Start 1424 Proc Fin 1424 an stop data 1427 Out of Room 1431 Handoff to RN I completed my handoff to the receiving nurse during which we: 1. Patient identified 2. Responsible provider identified 3. Pertinent medical history reviewed 4. Procedure type and surgical course discussed 5. Intraoperative anesthetic management and any significant issues discussed 6. Expectations and concerns for postop period discussed 7. Questions solicited from receiving nurse 8. Patient disposition at the time of handoff: PACU 1431 An Stop Meds Name Total propofol 950 mg Lidocaine IV 2 % 5 mL sodium chloride 0.9% infusion 1,100 mL * Agents Name O2 N2O Air * Blood No blood administrations on file. Lines, Drains, and Airways Type Details Placement Removal Peripheral IV Placement Date: 06/13 07/04; Placement Time: 1200; Catheter Size: 20 G; Orientation: Left; Location: Antecubital; Site Prep: Chlorhexidine; Technique: Transillumination; Inserted by: ru; Insertion Attempts: 1; Patient Tolerance: Tolerated well; Removal Date: 07/04/22; Removal Time: 1517 07/04/22 1200 by Sumi Duran RN 07/04/22 1517 by Teena Macias RN documented in this encounter Social History [...] week 05/31/2021 How often do you attend [facility] or evangelical services? 1 to 4 times per year 05/31/2021 Do you belong to any clubs o r organizations such as scientologist groups, unions, fraternal or athletic groups, or [...] in a fdc (including now)? No 05/31/2021 [place] Depression Scale Answer Date Recorded [place] Depression Scale Total 2 07/10/2021 The thought of harming myself has occurred to me . 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 Gender Identity Not on file Sexual Orientation Not on file documented as of this encounter OR Notes * Anesthesia Postprocedure Evaluation - Ramírez Covington MD - 07/04/2022 2:39 PM CDT Patient: Liliana Mancilla Procedure Summary Date: 07/04/22 Room / Location: [facility] ROOM 04 / [facility] Anesthesia Start: 1342 Anesthesia Stop: 1431 Procedure: COLON BIOPSY Diagnosis: Chronic diarrhea Crohn's disease of small intestine with other complication (HCC) (Chronic diarrhea [K52.9]) (Crohn's disease of small intestine with other complication (HCC) [K50.018]) Providers: Trent Severino MD Responsible Provider: Ramírez Covington MD Anesthesia Type: general TIVA ASA Status: 2 Anesthesia Type: general TIVA Last vitals BP 109/56 (BP Location: Left arm) Pulse 79 Temp 36.3 ??C (97.3 ??F) Resp 16 SpO2 96% Anesthesia Post Evaluation Patient location during evaluation: PACU Patient participation: complete - patient participated Level of consciousness: fully awake Pain score: 0 Pain management: adequate Airway patency: adequate Evidence of recall: no Cardiovascular status: hemodynamically stable and acceptable Respiratory status: acceptable and room air Hydration status: acceptable Pt is: normothermic Nausea/Vomiting status: none No notable events documented. * Anesthesia Preprocedure Evaluation - Gagan Dye MD - 07/04/2022 11:44 AM CDT Images from the original note were not included. Anesthesia Evaluation Liliana Mancilla is a 31 y.o. female Procedure(s): COLONOSCOPY [...] (CMS/HCC) (HCC) ??? Crohn's disease (CMS/HCC) (HCC) 2019 ??? Diabetes mellitus (HCC) GDM Past Surgical History: Procedure Laterality Date ??? ANKLE FRACTURE SURGERY Right 2009 ??? CERVICAL BIOPSY W/ LOOP ELECTRODE EXCISION [...] Medication protocol when under care of a EPIC CUPID ANALYST Planned anesthesia: General Informed Consent: Anesthesia plan [...] All questions answered. documented in this encounter Plan of Treatment Not on file documented as of this encounter Visit Diagnoses Not on filedocumented in this encounter Administered Medications Inactive Administered Medications - up to 3 most recent administrations Medication Order MAR Action Action Date Dose Rate Site lidocaine (XYLOCAINE) 20 mg/mL (2 %) injection intravenous, As needed, Starting on May 07/04/22 at 1344, Anesthesia Intra-op, Indications: Administration of Local AnesthesiaIndications:Administratio n of Local Anesthesia Given 07/04/2022 1:44 PM CDT 5 mL propofoL (DIPRIVAN) 10 mg/mL IV intravenous, As needed, Starting on May 07/04/22 at 1344, Anesthesia Intra-op Given 07/04/2022 2:20 PM CDT 50 mg Given 07/04/2022 2:17 PM CDT 50 mg Given 07/04/2022 2:14 PM CDT 100 mg sodium chloride 0.9% infusion 30 mL/hr, intravenous, Continuous, Starting on May 07/04/22 at 1230 New Bag 07/04/2022 2:09 PM CDT New Bag 07/04/2022 1:42 PM CDT documented in this encounter Care Teams Overhead Irrigator Relationship Specialty Start Date End Date Judy Fishman NP [address] [id number] PCP - General 07/31/18 Jessica Martínez MD [address] [id number] Consulting Physician Obstetrics and Gynecology 11/16/20 documented as of this encounter
--- OUTSIDE RECORDS SUMMARY | 2024-04-11 06:12 | XMS_ITS | Encounter Summary ---
Author Organization [facility] Address [address] [place] [address] Phone Care Team Providers Care Anesthesiologist/Physician Name Role Phone Judy Fishman NP Primary Care Provider + Jessica Martínez MD Unavailable Encounter Details Date Type Department Care Team (Late st Contact Info) Description 11/07/2022 Orders Only [facility] Maternal- Medicine [facility] [address] [place] [address] Pauline Campos RN Social History [...] in a longterm (including now)? No 05/31/2021 [place] Depression Scale Answer Date Recorded [place] Depression Scale Total 2 07/10/2021 The thought of harming myself has occurred to me . 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 Gender Identity Not on file Sexual Orientation Not on file documented as of this encounter Progress Notes * Pauline Campos RN - 11/07/2022 2:03 PM CDT error documented in this encounter Plan of Treatment Not on file documented as of this encounter Visit Diagnoses Not on filedocumented in this encounter Care Teams Anesthesiologist/Physician Relationship Specialty Start Date End Date Judy Fishman NP [address] [id number] PCP - General 07/31/18 Jessica Martínez MD [address] [place] [address] Consulting Physician Obstetrics and Gynecology 11/16/20 documented as of this encounter
--- OUTSIDE RECORDS SUMMARY | 2024-04-11 06:12 | XMS_ITS | Encounter Summary ---
Author Organization [facility] Address [address] [facility] [address] [place] [address] Phone Care Team Providers Care Ticket Collector Name Role Phone Judy Fishman NP Primary Care Provider + Jessica Martínez MD Unavailable [phone] Reason for Referral * Diagnostic Imaging (Routine) - Closed Specialty Diagnoses / Procedures Referred By Contflora roberson Referred To Contact Diagnoses Supervision of high-risk , first trimester Crohn's disease of small intestine with other complication (HCC) History of pre-eclampsia in prior , currently in first trimester Obesity in , antepartum Procedures US Ob Detail Anatomy Single Or First Gestation Erick Nava MD [address] [facility] [phone] [place] [address] Phone: tel: fax: [facility] (All Locations) Referral ID Status Reason Start Date Expiration Date Visits Re quested Visits Authorized [id number] Closed 11/01/2022 12/01/2023 1 1 Reason for Visit * Reason Comments High Risk Gestation Encounter Details Date Type Department Care Team (Late st Contact Info) Description 11/01/2022 11:45 AM CDT Office Visit [facility] Maternal- Medicine [address] [place] [address] Supervision of high-risk , first trimester (Primary Dx); Crohn's disease of small intestine with other complication (HCC); History of pre-eclampsia in prior , currently in first trimester; Obesity in , antepartum Social History Tobacco [...] place to sleep or slept in a retirement (including now)? No 05/31/2021 [place] Depression Scale Answer Date Recorded [place] Depression Scale Total 2 07/10/2021 The thought of harming myself has occurred to me . 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 Gender Identity Not on file Sexual Orientation Not on file documented as of this encounter Last Filed Vital Signs Vital Sign Reading Time Taken Comments Blood Pressure 124/76 11/01/2022 10:54 AM CDT Pulse 76 11/01/2022 10:54 AM CDT Temperature - - Respiratory Rate - - Oxygen Saturation 98% 11/01/2022 10:54 AM CDT Inhaled Oxygen Concentration - - Weight 108.9 kg (240 lb) 11/01/2022 10:54 AM CDT Height 157.5 cm (5' 2 ) 11/01/2022 10:54 AM CDT Body Mass Index 43.9 11/01/2022 10:54 AM CDT documented in this encounter Progress Notes * Erick Nava MD - 11/01/2022 11:45 AM CDT MFM Return Visit 11/01/2022 Liliana Mancilla is a 32 y.o. at 11w0d who is here for a return OB visit. Her is complicated by: Crohn's disease Obesity History of delivery (iatrogenic) History of LEEP History of preeclampsia with severe features and PPH History of GDM Subjective: She reports doing well. Spotting last week, none since, no cramping No Crohn's symptoms Objective: BP 124/76 Pulse 76 Ht 157.5 cm (5' 2 ) Wt 240 lb (108.9 kg) LMP 08/01/2022 SpO2 98% BMI43.90 kg/m?? General: NAD Ultrasound: 11/01/2022 11w0d formal report pending Assessment/Plan: Liliana Mancilla is a 32 y.o. at 11w0d with a complicated by: Problem List JONNATHAN 05/08/23 Crohn's disease of small intestine with other complication (HCC) Overview History - diagnosis: Crohn's disease, in remission since diagnosis in 2019 - current regimen: Entyvio - history of perianal involvement: no Previously counseled Plan [x] Continue Entyvio and follow-up with Dr. Severino [] Specialized anatomy [] Serial growth ultrasounds q4 weeks starting at 24 weeks [] testing [] Mode of delivery: Relevant Orders US Ob Detail Anatomy Single Or First Gestation Obesity in , antepartum Overview BMI: 44 Previously counseled Plan [x] Early A1C- 5.7 on 10/04/22 [] Specialized anatomy ultrasound [] Serial growth ultrasounds q4 weeks starting at 24 weeks [] Weekly testing per history of preeclampsia Relevant Orders US Ob Detail Anatomy Single Or First Gestation History of pre-eclampsia in prior , currently in first trimester Overview We reviewed the patient's history of hypertensive disorder of . We discussed that history of preeclampsia is a risk factor for development of preeclampsia in the current . The risk may be as high as 40% for patients with preeclampsia diagnosed at <28. There are no current teststo predict the development of preeclampsia in this . We recommend initiation of low-dose aspirin for prevention of preeclampsia. Plan [] testing weekly starting at 32 weeks if previous preeclampsia required delivery [x] Baseline CBC, CMP,- WNL UPC- pending [] Low dose aspirin daily starting at 12 weeks gestation until delivery Relevant Orders US Ob Detail Anatomy Single Or First Gestation Supervision of high-risk , first trimester - Primary Overview [x] Full M Care; [x] Red Team Referring Provider: Trent Severino (GI) [phone] [] or Medicare Insurance [x] Dating Criteria: LMP 08/01/22 with JONNATHAN 05/08/23 [x] Labs: Rh [B positive ], Ab [negative ], Rubella [Imm ], HIV [NR ], HepBSAg [NR ], RPR [NR ], Hep C [NR ], Varicella [ Reactive], GC/CT [Neg/Neg ] [] Genetic Screening: [x] CBC/Hgb: 12.0/37.1/360K [x] Early 1hr GTT (if indicated) : Hemoglobin A1C: 5.7 [] UCx: next visit [] Pap: [] LD ASA (if indicated) starting at 12 weeks: [] EPDS [ ]; PNBHS referral (if indicated) 2nd Tri Labs: [] Anatomy ultrasound: [] CBC/Ferritin/1hr gtt at 24-28wks: [] Flu Shot (Dec-Mar): [] Tdap (27-36wks): [] Rhogam at 28 wks (if Rh neg): 3rd Tri Labs: [] CBC/HIV/RPR/T&S: [] GBS: [] GC/CT (if indicated): [] testing: Counseling [] MOD: [] Place of delivery: [] Last clinic visit SVE: [] IOL start agent: [] Epidural: [] Consents signed: [] MOC: [] Method of feeding: [] Coil Wrapper: [] PP Depression Discussed: Relevant Orders US Ob Detail Anatomy Single Or First Gestation Specialty Infusion Treatment 2 Crohn's disease of small intestine with other complication (HCC) Overview History - diagnosis: Crohn's disease, in remission since diagnosis in 2019 - current regimen: Entyvio - history of perianal involvement: no Previously counseled Plan [x] Continue Entyvio and follow-up with Dr. Severino [] Specialized anatomy [] Serial growth ultrasounds q4 weeks starting at 24 weeks [] testing [] Mode of delivery: Relevant Orders US Ob Detail Anatomy Single Or First Gestation Doing well Start ASA at ~12wks RV 4wks, then ~20wks for anatomy documented in this encounter Plan of Treatment Not on file documented as of this encounter Results * US Ob Detail Anatomy Single Or First Gestation (12/27/2022 9:05 AM CDT) Fetus# Fetus1 VIEWPOINT Estimated Weight 289 g&grams VIEWPOINT Placenta Details posterior, Previa-no VIEWPOINT Presentation Vertex VIEWPOINT Anatomical Region Laterality Modality Body N/A Ultrasound 12/27/2022 9:31 AM CDT Impressions 12/27/2022 10:42 AM CDT IUP at 19w 0d. 1. Biometric measurements corresponded to established dates. ??2. A detailed examination is performed and there are no malformations or soft markers for aneuploidy were seen at this time, the exam is incomplete. ??Suboptimal views of sacral spineand aortic arch.3. The cervical length measured within normal limits. Narrative Procedure Note America Collins MD - 12/27/2022 IMPRESSION: IUP at 19w 0d. 1. Biometric measurements corresponded to establisheddates. 2. A detailed examination is performed and there are no fetalmalformations or soft markers for aneuploidy were seen at this time, theexam is incomplete. Suboptimal views of sacral spineand aortic arch.3.The cervical length measured within normal limits. Erick Nava MD IMG OB US PROCEDU RES Final Result documented in this encounter Visit Diagnoses Diagnosis Supervision of high-risk , first trimester- Primary Crohn's disease of small intestine with other complication (HCC) History of pre-eclampsia in prior , currently in first trimester Obesity in , antepartum Obesity complicating , childbirth, or the puerperium, antepartum condition or complication Supervision of high-risk , first trimester Crohn's disease of small intestine with other complication (HCC) History of pre-eclampsia in prior , currently in first trimester Obesity in , antepartum Obesity complicating , childbirth, or the puerperium, antepartum condition or complication documented in this encounter Care Teams Ticket Collector Relationship Specialty Start Date End Date Judy Fishman NP [address] [id number] PCP - General 07/31/18 Jessica Martínez MD [address] [address] Consulting Physician Obstetrics and Gynecology 11/16/20 documented as of this encounter
--- OUTSIDE RECORDS SUMMARY | 2024-04-11 06:12 | XMS_ITS | Encounter Summary ---
Author Organization [facility] Address [address] [place] [address] Phone Care Team Providers Care Him Clerk Name Role Phone Judy Fishman NP Primary Care Provider + Jessica Martínez MD Unavailable [phone] Encounter Details Date Type Department Care Team (Late st Contact Info) Description 09/20/2022 Telephone [facility] Obstetrics and Gynecology [facility] [place] [address] Elena Soto Social History Tobacco Use Types Packs/Day Years [...] any clubs o r organizations such as sabianism groups, unions, fraternal or athletic groups, or [...] in a penitentiary (including now)? No 05/31/2021 [place] Depression Scale Answer Date Recorded [place] Depression Scale Total 2 07/10/2021 The thought of harming myself has occurred to me . 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 Patient is aware of location. * Telephone Encounter - Elena Soto - 09/20/2022 9:11 AM CDT Images from the original note were not included. Patient was contacted to schedule, states she's currently on vacation and will call back Saturday 09/23 to schedule, sent scheduling contact number through [email or web address] for patient as requested. Rut Domínguez Ob Mfm Scheduling Pool Chart reviewed for referral. Please schedule for OBN with limited scan for viability in 2-3 weeks. JONNATHAN 05/08 DX: Crohns, Hx. preE with SF, GDMA2, previous MFM patient. Thank you, Shey documented in this encounter Plan of Treatment Not on file documented as of this encounter Visit Diagnoses Not on filedocumented in this encounter Care Teams Him Clerk Relationship Specialty Start Date End Date Judy Fishman NP [address] [address] PCP - General 07/31/18 Jessica Martínez MD [address] [address] Consulting Physician Obstetrics and Gynecology 11/16/20 documented as of this encounter
--- OUTSIDE RECORDS SUMMARY | 2024-04-11 06:12 | XMS_ITS | Encounter Summary ---
Author Organization [facility] Address [address] [place] [address] Phone Care Team Providers Care Director Geophysical Laboratory Name Role Phone Judy Fishman NP Primary Care Provider + Jessica Martínez MD Unavailable [phone] Reason for Referral * Diagnostic Imaging (Routine) - Closed Specialty Diagnoses / Procedures Referred By Contac t Referred To Contact Diagnoses History of pre-eclampsia in prior , currently in first trimester Supervision of high-risk , first trimester Procedures US Ob Limited Jane Montalvo MD [address] [place] [address] Phone: tel: fax: [facility] (All Locations) Referral ID Status Reason Start Date Expiration Date Visits Re quested Visits Authorized [id number] Closed 12/27/2022 01/26/2024 1 1 Reason for Visit * Reason Comments High Risk Gestation Encounter Details Date Type Department Care Team (Latest Contact Info) Description 12/27/2022 10:30 AM CDT Office Visit [facility] [address] [place] [address] Health 7th Floor [address] [place] [address] History of pre-eclampsia in prior , currently in first trimester (Primary Dx); Supervision of high-risk , first trimester; History of loop electrosurgical excision procedure (LEEP) of cervix affecting in first trimester; History of hemorrhage, currently ; Obesity in , antepartum; History of gestational diabetes in prior , currently Social History Tobacco Use Types Packs/Day [...] often do you attend chur ch or scientologist services? 1 to 4 times per year 05/31/2021 Do you belong to any clubs o r organizations such as orthodoxy groups, unions, fraternal or athletic groups, or [...] in a prison (including now)? No 05/31/2021 [place] Depression Scale Answer Date Recorded [place] Depression Scale Total 2 07/10/2021 The thought of harming myself has occurred to me . Never 07/10/2021 Comments Yes Sex and Gender Information Value Date Recorded Sex Assigned at Not on file Legal Sex Female 7:54 PM PRESS TENDER SMOKE SIGNAL Gender Identity Not on file Sexual Orientation Not on file documented as of this encounter Last Filed Vital Signs Vital Sign Reading Time Taken Comments Blood Pressure 118/73 12/27/2022 10:32 AM CDT Pulse 75 12/27/2022 10:32 AM CDT Temperature - - Respiratory Rate - - Oxygen Saturation 97% 12/27/2022 10:32 AM CDT Inhaled Oxygen Concentration - - Weight 108.9 kg (240 lb) 12/27/2022 10:32 AM CDT Height 157.5 cm (5' 2 ) 12/27/2022 10:32 AM CDT Body Mass Index 43.9 12/27/2022 10:32 AM CDT documented in this encounter Progress Notes * Katie Kendall MD - 12/27/2022 10:30 AM CDT M Return Visit 12/27/2022 Liliana Mancilla is a 32 y.o. at 19w0d who is here for a return OB visit. Her is complicated by history of GDM, Crohn's disease, obesity, history of delivery, history of LEEP, history of preeclampsia Subjective: She reports felling well, denies any vaginal bleeding, contractions, or leakage of fluid. Reports positive movement. No Crohn's symptoms Objective: BP 118/73 Pulse 75 Ht 157.5 cm (5' 2 ) Wt 240 lb (108.9 kg) LMP 08/01/2022 SpO2 97% BMI43.90 kg/m?? General: NAD Heart: regular rate Lungs: non-labored respirations Abdomen: Soft, gravid, NT Extremities: WWP, no edema Ultrasound: FHR normal on bedside ultrasound Assessment/Plan: Liliana Mancilla is a 32 y.o. at 19w0d Problem List Endocrine and Metabolic History of gestational diabetes in prior , currently Overview - History of GDM in G1 - Early screening with A1C, 5.7 on 10/04/22- follow- up 3hr normal Plan [] 1 hour GTT at 24-28 weeks Gravid and Obesity in , antepartum Overview - BMI: 44 - s/p counseling Plan [x] Early A1C- 5.7 on 10/04/22 [] Specialized anatomy ultrasound- incomplete 12/27, for completion at next visit [] Serial growth ultrasounds q4 weeks starting at 24 weeks [] Weekly testing per history of preeclampsia History of pre-eclampsia in prior , currently in first trimester - Primary Overview - s/p counseling Plan [] testing weekly starting at 32 weeks (previous preeclampsia required delivery) [x] Baseline CBC, CMP,- WNL UPC- pending [x] Low dose aspirin daily starting at 12 weeks gestation until delivery Supervision of high-risk , first trimester Overview [x] Full [facility] Care; [x] Red Team Referring Provider: Trent XAVIER) [phone] [] or Medicare Insurance [x] Dating Criteria: [...] Hemoglobin A1C: 5.7 [] UCx: next visit 12/27, lab lost specimen collected on 11/29 [x] Pap: 2021, normal [x] LD ASA (if indicated) starting at 12 weeks: [] EPDS [ ]; PNBHS referral (if indicated) 2nd Tri Labs: [] Anatomy ultrasound: scheduled for 12/27 [] CBC: needed 3 hr Gtt follow up from early 1 hr GTT: 83/163/142/128- passed and pt aware [] Flu Shot (Dec-Mar): [] Tdap (27-36wks): [] Rhogam at 28 wks (if Rh neg): 3rd Tri Labs: [] CBC/HIV/RPR/T&S: [] GBS: [] GC/CT (if indicated): [] testing: Counseling [] MOD: [] Place of delivery: [] Last clinic visit SVE: [] IOL start agent: [] Epidural: [] Consents signed: [] MOC: [] Method of feeding: [] Gymnasium Teacher: [] PP Depression Discussed: History of loop [...] 09/2022 -Consider T&C at time of delivery Patient was seen and discussed with Dr. Montalvo who agree's with the above documented assessment and plan. RTC 4 weeks with completion anatomy and visit Katie Kendall MD Cosigned by Jane Montalvo MD at 12/27/2022 12:27 PM CDT Associated attestation - Jane Montalvo MD - 12/27/2022 12:27 PM CDT I have seen and examined the patient. I agree with the findings and plan of care as documented in the resident/fellow's note. documented in this encounter Plan of Treatment Not on file documented as of this encounter Results * US Ob Limited [...] pre-eclampsia in prior , currently in first trimester- Primary Supervision of high-risk , first trimester History of loop electrosurgical excision procedure (LEEP) of cervix affecting in first trimester History of hemorrhage, currently with other poor obstetric history Obesity in , antepartum Obesity complicating , childbirth, or the puerperium, antepartum condition or complication History of gestational diabetes in prior , currently with other poor obstetric history History of pre-eclampsia in prior , currently in first trimester Supervision of high-risk , first trimester documented in this encounter Historical Medications * This list may reflect changes made after this encounter. aspirin 81 mg chewable tablet Chew 1 tablet every day by oral route. added in this encounter Care Teams Director Geophysical Laboratory Relationship Specialty Start Date End Date Judy Fishman NP [address] [address] PCP - General 07/31/18 Jessica Martínez MD [address] [address] Consulting Physician Obstetrics and Gynecology 11/16/20 documented as of this encounter
--- OUTSIDE RECORDS SUMMARY | 2024-04-11 06:12 | XMS_ITS | Encounter Summary ---
Author Organization [facility] Address [address] [place] [address] Care Team Providers Care Press Operator Automatic Name Role Phone Judy Fishman ADMINISTRATIVE SUPPORT TECHNICIAN Primary Care Provider + Jessica Martínez MD Unavailable Reason for Visit * Reason Onset Date Comments Incoming Call 11/15/2022 Bleeding Encounter Details Date Type Department Care Team (Late st Contact Info) Description 11/15/2022 Nurse Triage [address] [address] Sailaja Rolle RN Social History Tobacco Use [...] often do you attend chur ch or catholic services? 1 to 4 times per year 05/31/2021 Do you belong to any clubs o r organizations such as amish groups, unions, fraternal or athletic groups, or [...] in a snf (including now)? No 05/31/2021 [place] Depression Scale Answer Date Recorded [place] Depression Scale Total 2 07/10/2021 The thought of harming myself has occurred to me . 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 ONSET: When did this bleeding start? Noted when she woke up to go to restroom this morning 2. DESCRIPTION: Describe the bleeding that you are having. How much bleeding is there? - SPOTTING: spotting, or pinkish / brownish mucous discharge; does not fill panty liner or pad - MILD: less than 1 pad / hour; less than patient's usual menstrual bleeding - MODERATE: 1-2 pads / hour; 1 menstrual cup every 6 hours; small-medium blood clots (e.g., pea, grape, small coin) - SEVERE: soaking 2 or more pads/hour for 2 or more hours; 1 menstrual cup every 2 hours; bleeding not contained by pads or continuous red blood from vagina; large blood clots (e.g., golf ball, largecoin) Mild- bright red bleeding 3. ABDOMINAL PAIN SEVERITY: If present, ask: How bad is it? (e.g., Scale 1-10; mild, moderate, orsevere) - MILD (1-3): doesn't interfere with normal activities, abdomen soft and not tender to touch - MODERATE (4-7): interferes with normal activities or awakens from sleep, abdomen tender to touch - SEVERE (8-10): excruciating pain, doubled over, unable to do any normal activities Denies pain at this time 4. : Do you know how many weeks or months you are? When was the first day of your last normal menstrual period? 13 wks 5. HEMODYNAMIC STATUS: Are you weak or feeling lightheaded? If Yes, ask: Can you stand and walk normally? Denies having issues 6. OTHER SYMPTOMS: What other symptoms are you having with the bleeding? (e.g., passed tissue, vaginal discharge, fever, menstrual-type cramps) Denies Protocols used: - Vaginal Bleeding Less Than 20 Weeks [id number] documented in this encounter Plan of Treatment Not on file documented as of this encounter Visit Diagnoses Not on filedocumented in this encounter Care Teams Press Operator Automatic Relationship Specialty Start Date End Date Judy Fishman NP [address] [address] PCP - General 07/31/18 Jessica Martínez MD [address] [address] Consulting Physician Obstetrics and Gynecology 11/16/20 documented as of this encounter
--- OUTSIDE RECORDS SUMMARY | 2024-04-11 06:12 | XMS_ITS | Encounter Summary ---
Author Organization [facility] Address [address] [place] [address] Phone Care Team Providers Care Power Plant Inspector Name Role Phone Judy Fishman NP Primary Care Provider + Jessica Martínez MD Unavailable [phone] Encounter Details Date Type Department Care Team (Late st Contact Info) Description 11/29/2022 Orders Only [facility] [address] [place] [address] Pauline Campos RN Crohn's disease of small intestine with other complication (HCC) (Primary Dx); History of pre-eclampsia in prior , currently in first trimester; Supervision of high-risk , first trimester; History [...] week 05/31/2021 How often do you attend [facility] or tenriism services? 1 to 4 times [...] a long term (including now)? No 05/31/2021 [place] Depression Scale Answer Date Recorded [place] Depression Scale Total 2 07/10/2021 The thought of harming myself has occurred to me . 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 Gender Identity Not on file Sexual Orientation Not on file documented as of this encounter Plan of Treatment Not on file documented as of this encounter Procedures Procedure Name Priority Date/Time Associated Diagnosis Comments GLUCOSE TOLERANCE 3 HOUR, GESTATIONAL, 4 SPECIMENS (100G) Routine 12/14/2022 7:26 AM CDT Crohn's disease of small intestine with other complication (HCC) History of pre-eclampsia in prior , currently in first trimester Supervision of high-risk , first trimester History of gestational diabetes in prior , currently COPY(IES) SENT TO: Routine 12/14/2022 7: 26 AM CDT documented in this encounter Results * COPY(IES) SENT TO: (12/14/2022 7:26 AM CDT) COPY(IES) SENT TO: [facility] Comment: ? [facility] ?[address] ?[place] [address] 12/14/2022 7:26 AM CDT 12/14/2022 7:27 AM CDT Narrative [facility] - 12/17/2022 11:08 AM CDT FASTING:YES FASTING: YES us Jane Hunter MD LAB BLOOD ORDERAB LES Final Result [facility] * Glucose Tolerance 3 Hour, Gestational, 4 Specimens (100g) (12/14/2022 7:26 AM CDT) Glucose, fasting 83 65 - 94 mg/dL [facility] Glucose, 1 hour 163 <180 mg/dL [facility] Glucose, 100g, 2 hr, pl 142 <155 mg/dL [facility] Glucose, 100g, 3 hr, pl 128 <140 mg/dL [facility] Comment [facility] Comment: ?? Rhona/Coustan Criteria: Two or more values greater than the above reference intervals are suggestive of gestational diabetes. ?? Serum 12/14/2022 7:26 AM CDT 12/14/2022 7:27 AM CDT Narrative [facility] - 12/17/2022 11:08 AM CDT FASTING:YES FASTING: YES us Jane Hunter MD LAB BLOOD ORDERAB LES Final Result [facility] [address] [place] [address] documented in this encounter Visit Diagnoses Diagnosis Crohn's disease of small intestine with other complication (HCC)- Primary History of pre-eclampsia in prior , currently in first trimester Supervision of high-risk , first trimester History of gestational diabetes in prior , currently with other poor obstetric history documented in this encounter Care Teams Power Plant Inspector Relationship Specialty Start Date End Date Judy Fishman NP [id number] [address] PCP - General 07/31/18 Jessica Martínez MD [address] [address] Consulting Physician Obstetrics and Gynecology 11/16/20 documented as of this encounter
--- OUTSIDE RECORDS SUMMARY | 2024-04-11 06:12 | XMS_ITS | Encounter Summary ---
Author Organization [facility] Healthcare Address [address] [place] [address] Care Team Providers Care Insulation Cupola Operator Name Role Phone Judy Fishman BLOCK PRESS OPERATOR Primary Care Provider + Jessica Martínez MD Unavailable [phone] Encounter Details Date Type Department Care Team (Latest Contact Info) Description 10/04/2022 12:12 PM CDT - 10/04/2022 11:59 PM CDT Hospital Encounter [address] [address] Supervision of high-risk , first [...] often do you attend chur ch or adventism services? 1 to 4 times per year [...] in a snf (including now)? No 05/31/2021 [place] Depression Scale Answer Date Recorded [place] Depression Scale Total 2 07/10/2021 The thought of harming myself has occurred to me . Never 07/10/2021 Comments Yes Sex and Gender Information Value Date Recorded Sex Assigned at Not on file Legal Sex Female 7:[address] Gender Identity Not on file Sexual Orientation Not on file documented as of this encounter Medications at Time of Discharge vit no.124/iron/foli c ( VITAMIN ORAL) Take by mouth vedolizumab (ENTYVIO) 300 mg recon soln 5 mL (300 mg total) acetaminophen 32 mg/mL 01/09/2023 doxylamine (UNISOM) 25 mg tablet Take 1 tablet (25 mg total) by mouth nightly as needed for sleep 30 tablet 3 10/04/2022 01/09/2023 prochlorperazine (COMPAZINE) 10 mg tablet Take 1 tablet (10 mg total) by mouth every 8 (eight) hours as needed for nausea or vomiting 30 tablet 3 10/04/2022 01/09/2023 pyridoxine (vitamin B-6) 25 mg tablet Take 1 tablet (25 mg total) by mouth 3 (three) times a day 90 tablet 3 10/04/2022 01/09/2023 documented as of this encounter Discharge Disposition Disposition Code Departure Means Destination Discharge to home or self care documented in this encounter Plan of Treatment Not on file documented as of this encounter Procedures Procedure Name Priority Date/Time Associated Diagnosis Comments PROTEIN / CREATININE RATIO, URINE, RANDOM Routine 10/04/2022 5:23 PM CDT Supervision of high-risk , first trimester N. GONORRHOEAE/C. TRACHOMATIS AMPLIFICATION Routine 10/04/2022 12:12 PM CDT Supervision of high-risk , first trimester documented in this encounter Results * Protein / creatinine ratio, urine, random (10/04/2022 5:23 PM CDT) Protein, ur, quant 9.8 mg/dL [facility] Comment: Interpretive Data No reference range established. Current interpretive data was last revised 2018. Creatinine Ur 172.0 mg/dL [facility] Comment: Interpretive Data No reference range established. Current interpretive data was last revised 2018. Protein/creatinin e ratio 57.0 0.0 - 180.0 mg/g CR [facility] Urine 10/04/2022 5:23 PM CDT 10/04/2022 5:51 PM CDT us Alley Reynoso MD LAB URINE ORDERABLES Final Result Performing Organization Address City/[facility] Co de [facility] Number [facility] [place] [address] * N. gonorrhoeae/C. trachomatis Amplification Urine (10/04/2022 12:12 PM CDT) C. trachomatis Not Detected Not Detected [facility] N. gonorrhoeae Not Detected Not Detected [facility] Comment: Interpretive Data Testing performed by the [facility]. This assay detects Chlamydia trachomatis and Neisseria gonorrhoeae by nucleic acid amplification testing (NAAT). This test is approved by the [place] Food and Drug Administration and the performance characteristics have been verified by the laboratory. The performance characteristics of this test have not been evaluated in individuals less than 14 years of age. Current Interpretive Data was last revised on 2018. Urine (None) 10/04/2022 12:1 2 PM CDT 10/04/2022 6:49 PM CDT Alley Reynoso MD LAB MICROBIOLOGY - GENERAL ORDERABLES Final Result Performing Organization Address City/[facility] Co de Phone Number [facility] [place] [address] documented in this encounter Visit Diagnoses Diagnosis Supervision of high-risk , first trimester documented in this encounter Care Teams Insulation Cupola Operator Relationship Specialty Start Date End Date Judy Fishman NP [address] [address] PCP - General 07/31/18 Jessica Martínez MD [address] [address] Consulting Physician Obstetrics and Gynecology 11/16/20 documented as of this encounter
--- OUTSIDE RECORDS SUMMARY | 2024-04-11 06:12 | XMS_ITS | Encounter Summary ---
Author Organization [facility] Address [address] [place] [address] Phone Care Team Providers Care Lead Javascript Developer Name Role Phone Judy Fishman NP Primary Care Provider + Jessica Martínez MD Unavailable Encounter Details Date Type Department Care Team (Late st Contact Info) Description 01/09/2023 3:30 PM CDT Office Visit [facility] Gastroenterology [address] [facility] 12th [place] [address] [place] [address] Lizz Clark NP [address] [place] [address] Crohn's disease of small intestine with other [...] often do you attend chur ch or presybeterian services? 1 to 4 times [...] a group home (including now)? No 05/31/2021 [place] Depression Scale Answer Date Recorded [place] Depression Scale Total 2 07/10/2021 The thought of harming myself has occurred to me . 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 Gender Identity Not on file Sexual Orientation Not on file documented as of this encounter Last Filed Vital Signs Vital Sign Reading Time Taken Comments Blood Pressure 108/73 01/09/2023 3:26 PM CDT Pulse 90 01/09/2023 3:26 PM CDT Temperature 36.7 ??C (98 ??F) 01/09/2023 3:26 PM CDT Respiratory Rate - - Oxygen Saturation 98% 01/09/2023 3:26 PM CDT Inhaled Oxygen Concentration - - Weight 110.7 kg (244 lb) 01/09/2023 3:26 PM CDT Height - - Body Mass Index 44.63 12/27/2022 10:32 AM CDT documented in this encounter Patient Instructions * Patient Instructions* Lizz Clark NP - 01/09/2023 3:30 PM CDT Labs at [facility] in January Follow up in 4 months documented in this encounter Progress Notes * Lizz Clark NP - 01/09/2023 3:30 PM CDT NAME: Liliana Mancilla : 1990 DATE: 01/09/2023 Reason for visit: Crohn's disease HPI: Liliana Mancilla is a 32 y.o. female with a past medical history of at least ileal Crohn's disease who presents today for follow-up on entyvio every 4 weeks. She is currently 21 weeks with her second child. Ileal crohn's [...] her first trimester but has improved. Having 1-2 stools daily. Denies any joint pain. Denies any hematochezia. Denies any abdominal pain. Patient Active Problem List Diagnosis Date Noted History of gestational diabetes in prior , currently 10/04/2022 - History of GDM in G1 - Early screening with A1C, 5.7 on 10/04/22- follow- up 3hr normal Plan [] 1 hour GTT at 24-28 weeks History of loop electrosurgical excision procedure [...] in prior , currently in first trimester 09/30/2022 - s/p counseling Plan [] testing weekly starting at 32 weeks (previous preeclampsia required delivery) [x] Baseline CBC, CMP,- WNL UPC- pending [x] Low dose aspirin daily starting at 12 weeks gestation until delivery Supervision of high-risk , first trimester 09/30/2022 [x] Full [facility] Care; [x] Blue Team Referring Provider: Trent Severino (GI) [phone] [] [employer] or Medicare Insurance [x] Dating Criteria: LMP 08/01/22 with JONNATHAN 05/08/23 [x] Labs: Rh [B positive ], Ab [negative ], Rubella [Imm ], HIV [NR ], HepBSAg [NR ], RPR [NR ], Hep C [NR ], Varicella [ Reactive], GC/CT [Neg/Neg ] - will request [x] Genetic Screening: NIPT- LR- pt aware [...] [] MOC: [] Method of feeding: [] Nail Assembly Machine Operator: [] PP Depression Discussed: Skin rash 08/31/2021 Obesity in , antepartum 11/16/2020 - BMI: 44 - s/p counseling Plan [x] Early A1C- 5.7 on 10/04/22 [] Specialized anatomy ultrasound- incomplete 12/27, for completion at next visit [] Serial growth ultrasounds q4 weeks starting at 24 weeks [] Weekly testing per history of preeclampsia NAFLD (nonalcoholic fatty liver disease) 06/12/2020 Crohn's disease of small intestine with other complication (HCC) 12/01/2018 History - diagnosis: Crohn's disease, in remission since diagnosis in 2019 - current regimen: Entyvio - history of perianal involvement: no - s/p counseling Plan [x] Continue Entyvio and follow-up with Dr. Severino [] Specialized anatomy [] Serial growth ultrasounds q4 weeks starting at 24 weeks [] Mode of delivery: anticipate vaginal Chronic diarrhea 11/08/2018 Past Medical History: Diagnosis Date Autoimmune disorder (HCC) Crohn's disease (CMS/HCC) (HCC) 2019 Diabetes mellitus ([facility]) GDM Hypertension in , preeclampsia, delivered 07/10/2021 [...] Current Outpatient Medications Medication Sig Dispense Refill aspirin 81 mg chewable tablet Chew 1 tablet every day by oral route. vit no.124/iron/folic ( VITAMIN ORAL) Take by mouth vedolizumab (ENTYVIO) 300 mg recon soln 5 mL (300 mg total) acetaminophen 32 mg/mL (Patient not taking: Reported on 11/29/2022) doxylamine (UNISOM) 25 mg tablet Take 1 tablet (25 mg total) by mouth nightly as needed for sleep (Patient not taking: Reported on 12/27/2022) 30 tablet 3 prochlorperazine (COMPAZINE) 10 mg tablet Take 1 tablet (10 mg total) by mouth every 8 (eight) hours as needed for nausea or vomiting (Patient not taking: Reported on 11/29/2022) 30 tablet 3 pyridoxine (vitamin B-6) 25 mg tablet Take 1 tablet (25 mg total) by mouth 3 (three) times a day (Patient not taking: Reported on 11/29/2022) 90 tablet 3 No current facility-administered medications for this visit. Review of Systems: Constitutional: Negative. HENT: Negative for sore throat and trouble swallowing. Eyes: Negative. Respiratory: Negative. Cardiovascular: Negative. Gastrointestinal: See HPI Endocrine: Negative. Genitourinary: Negative. Musculoskeletal: Negative. Skin: Negative. Allergic/Immunologic: Negative. Neurological: Negative. Hematological: Negative. Psychiatric/Behavioral: Negative. Breast: Negative. Physical Exam: BP 108/73 Pulse 90 Temp 36.7 ??C (98 ??F) Wt 110.7 kg (244 lb) LMP 08/01/2022 SpO2 98% BMI 44.63 kg/m?? GENERAL: Well-appearing, in no acute distress. [...] remission on colonoscopy 06/2022. Doing quite well. Is21 weeks -continue entyvio -continue to monitor safety labs -no change in current treatment plan -follow up in 3-4 months prior to delivery High risk medications: As with all patients [...] up: Return in about 4 months (around 05/11/2023). documented in this encounter Plan of Treatment Scheduled Orders Name Type Priority Associated Diagnoses Orde r Schedule CBC with auto differential Lab Routine Crohn's disease of small intestine with other complication (HCC) Expected: 01/09/2023, Expires: 01/10/2024 documented as of this encounter Procedures Procedure Name Priority Date/Time Associated Diagnosis Comments COPY(IES) SENT TO: Routine 02/08/2023 7: 14 AM CDT CRP (ACUTE PHASE) Routine 02/08/2023 7:1 4 AM CDT Crohn's disease of small intestine with other complication (HCC) COMPREHENSIVE METABOLIC PANEL Routine 02/08/2023 7:14 AM CDT Crohn's disease of small intestine with other complication (HCC) documented in this encounter Results * COPY(IES) SENT TO: (02/08/2023 7:14 AM CDT) COPY(IES) SENT TO: [facility] Comment: ?[facility] ?COPY TO ACCOUNT ?[id number] ?[place] [address] 02/08/2023 7:14 AM CDT 02/08/2023 7:14 AM CDT Lizz Clark CHILD SUPPORT CASE OFFICER LAB BLOOD ORDERABLES Final Result [facility] * (ABNORMAL) Comprehensive metabolic panel (02/08/2023 7:14 AM CDT) Glucose 83 65 - 99 mg/dL [facility] Comment: ? Fasting reference interval BUN 6(L) 7 - 25 mg/dL [facility] Creatinine 0.46(L) 0.50 - 0.97 mg/dL [facility] eGFR 132 > OR = 60 mL/min/1.7 3m2 [facility] BUN/creat ratio 13 6 - 22 (calc) [facility] Sodium 137 135 - 146 mmol/L [facility] Potassium, pl 3.8 3.5 - 5.3 mmol/L [facility] Chloride 104 98 - 110 mmol/L [facility] CO2 21 20 - 32 mmol/L [facility] Calcium 8.4(L) 8.6 - 10.2 mg/dL [facility] Protein, sr 6.4 6.1 - 8.1 g/dL [facility] Albumin 3.7 3.6 - 5.1 g/dL [facility] GLOBULIN 2.7 1.9 - 3.7 g/dL (calc) [facility] Alb/glob ratio 1.4 1.0 - 2.5 (calc) [facility] Bilirubin, total 0.3 0.2 - 1.2 mg/dL [facility] Alk phos 71 31 - 125 U/L [facility] AST 8(L) 10 - 30 U/L [facility] ALT (SGPT) 6 6 - 29 U/L [facility] Blood 02/08/2023 7:14 AM CDT 02/08/2023 7:14 AM CDT Lizz Clark CHILD SUPPORT CASE OFFICER LAB BLOOD ORDERABLES Final Result Performing Organization Address [facility]/ZIP Co de Phone Number [facility] [address] [place] [address] * (ABNORMAL) CRP (acute phase) (02/08/2023 7:14 AM CDT) C-RP 30.9(H) <8.0 mg/L [facility] Blood 02/08/2023 7:14 AM CDT 02/08/2023 7:14 AM CDT Lizz Clark NP LAB BLOOD ORDERABLES Final Result Performing Organization Address City/[facility]/ZIP Co de Phone Number [facility] [address] [place] [address] documented in this encounter Visit Diagnoses Diagnosis Crohn's disease of small intestine with other complication (HCC)- Primary High risk medications (not anticoagulants) long-term use Encounter for long-term (current) use of other medications documented in this encounter Discontinued Medications Medication Sig Discontinue Reason Start Date End Da te pyridoxine (vitamin B-6) 25 mg tablet Take 1 tablet (25 mg total) by mouth 3 (three) times a day 10/04/2022 01/09/2023 prochlorperazine (COMPAZINE) 10 mg tablet Take 1 tablet (10 mg total) by mouth every 8 (eight) hours as needed for nausea or vomiting 10/04/2022 01/09/2023 doxylamine (UNISOM) 25 mg tablet Take 1 tablet (25 mg total) by mouth nightly as needed for sleep 10/04/2022 01/09/2023 acetaminophen 32 mg/mL 3 documented as of this encounter Care Teams Lead Javascript Developer Relationship Specialty Start Date End Date Judy Fishman NP [address] [id number] PCP - General 07/31/18 Jessica Martínez MD [address] [phone] Consulting Physician Obstetrics and Gynecology 11/16/20 documented as of this encounter
--- OUTSIDE RECORDS SUMMARY | 2024-04-11 06:12 | XMS_ITS | Encounter Summary ---
Author Organization [facility] Address [address] [place] [address] Phone Care Team Providers Care Property Developer Name Role Phone Judy Fishman NP Primary Care Provider + Jessica Martínez MD Unavailable [phone] Encounter Details Date Type Department Care Team (Latest Contact Info) Description 11/01/2022 10:00 AM CDT Procedure visit [facility] Obstetrics and Gynecology [address] [facility] 7th [place] [address] Genetic testing (Primary Dx) Social History Tobacco Use Types [...] often do you attend chur ch or confucianist services? 1 to 4 times per year 05/31/2021 Do you belong to any clubs o r organizations such as restoration groups, unions, fraternal or athletic groups, or [...] a nursing home (including now)? No 05/31/2021 [place] Depression Scale Answer Date Recorded [place] Depression Scale Total 2 07/10/2021 The thought of harming myself has occurred to me . 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 Pt tolerated well. Sent via FedEx. documented in this encounter Plan of Treatment Not on file documented as of this encounter Visit Diagnoses Diagnosis Genetic testing- Primary Other investigation and testing for procreative management documented in this encounter Care Teams Property Developer Relationship Specialty Start Date End Date Judy Fishman NP [address] [place] [id number] PCP - General 07/31/18 Jessica Martínez MD [address] [place] [id number] Consulting Physician Obstetrics and Gynecology 11/16/20 documented as of this encounter
--- OUTSIDE RECORDS SUMMARY | 2024-04-11 06:12 | XMS_ITS | Encounter Summary ---
Author Organization [facility] Healthcare Address [address] [place] [address] Care Team Providers Care Boot And Shoe Repairman Name Role Phone Judy Fishman ANIMAL EVISCERATOR Primary Care Provider + Jessica Martínez MD Unavailable [phone] Reason for Referral * Diagnostic Imaging (Routine) - Closed Specialty Diagnoses / Procedures Referred By Mary roberson Referred To Contact Diagnoses High risk medications (not anticoagulants) long-term use Crohn's disease of small intestine with other complication (HCC) Less than 8 weeks gestation of Supervision of high-risk , first trimester Procedures Ob Limited Alley Reynoso MD [address] [facility] [id number] [place] [address] Phone: tel: fax: [facility] (All Locations) Referral ID Status Reason Start Date Expiration Date Visits Re quested Visits Authorized [id number] Closed 10/04/2022 11/03/2023 1 1 Reason for Visit * Diagnostic Imaging (Routine) - Closed Specialty Diagnoses / Procedures Referred By Mary roberson Referred To Contact Diagnoses High risk medications (not anticoagulants) long-term use Crohn's disease of small intestine with other complication (HCC) Less than 8 weeks gestation of Supervision of high-risk , first trimester Procedures Ob Limited Alley Reynoso MD [address] [facility] [phone] [place] [address] Phone: tel: fax: [facility] (All Locations) Referral ID Status Reason Start Date Expiration Date Visits Re quested Visits Authorized [id number] Closed 10/04/2022 11/03/2023 1 1 Encounter Details Date Type Department Care Team (Latest Contact Info) Description 11/01/2022 10:12 AM CDT - 11/01/2022 11:59 PM CDT Hospital Encounter [facility]ound [address] [facility], 7th Floor, [address] [place] [facility] [place] [address] Crohn's disease of small intestine with other complication (HCC); Less than 8 weeks gestation of ; Supervision of high-risk , first trimester Discharge [...] often do you attend chur ch or yazidism services? 1 to 4 times per year [...] No 05/31/2021 Housing Stability Vital Sign Answer Hécotr e Recorded In the last 12 months, [...] place to sleep or slept in a jail (including now)? No 05/31/2021 [place] Depression Scale Answer Date Recorded [place] Depression Scale Total 2 07/10/2021 The thought of harming myself has occurred to me . Never 07/10/2021 Comments Yes Sex and Gender Information Value Date Recorded Sex Assigned at Not on file Legal Sex Female 7:[address] WORKER Gender Identity Not on file Sexual Orientation [...] LIMITED Schedule Routine, Read Routine (OP Routine) 11/01/2022 10:12 AM CDT Crohn's disease of small intestine with other complication (HCC) Less than 8 weeks gestation of Supervision of high-risk , first trimester documented in this encounter Results * US Ob Limited (11/01/2022 10:12 AM CDT) Fetus# Fetus1 VIEWPOINT Placenta Details posterior VIEWPOINT Anatomical Region Laterality Modality Abdomen N/A Ultrasound 11/01/2022 10:1 6 AM CDT Impressions 11/01/2022 11:09 AM CDT IUP at 11 weeks with ongoing viability. Narrative Procedure Note America Collins MD - 11/01/2022 IMPRESSION: IUP at 11 weeks with ongoing viability. us Alley Reynoso MD IMG OB US PROCEDURES Edite d documented in this encounter Visit Diagnoses Diagnosis Crohn's disease of small intestine with other complication (HCC) Less than 8 weeks gestation of Supervision of high-risk , first trimester documented in this encounter Care Teams Boot And Shoe Repairman Relationship Specialty Start Date End Date Judy Fishman NP [address] [employer] [id number] PCP - General 07/31/18 Jessica Martínez MD [address] [phone] Consulting Physician Obstetrics and Gynecology 11/16/20 documented as of this encounter
--- OUTSIDE RECORDS SUMMARY | 2024-04-11 06:12 | XMS_ITS | Encounter Summary ---
Author Organization [facility] Address [address] [place] [address] Phone Care Team Providers Care Title Specialist Name Role Phone Judy Fishman NP Primary Care Provider + Jessica Martínez MD Unavailable [phone] Reason for Visit * Reason Onset Date Comments Treatment Plan Update 01/10/2023 Encounter Details Date Type Department Care Team (Late st Contact Info) Description 01/10/2023 Documentation [facility] Gastroenterology [address] [facility] 12th [place] [address] [place] [address] Abiola Silverman, RU Treatment Plan Update Social [...] often do you attend chur ch or episcopalian services? 1 to 4 times per year [...] in a assisted (including now)? No 05/31/2021 [place] Depression Scale Answer Date Recorded [place] Depression Scale Total 2 07/10/2021 The thought of harming myself has occurred to me . 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 Gender Identity Not on file Sexual Orientation Not on file documented as of this encounter Progress Notes * Abiola SilvermanRU - 01/10/2023 9:48 AM CDT Plan per Lizz: - continue q4 entyvio - rov before delivery documented in this encounter Plan of Treatment Not on file documented as of this encounter Visit Diagnoses Not on filedocumented in this encounter Care Teams Title Specialist Relationship Specialty Start Date End Date Judy Fishman NP [address] [employer] [address] [place] [id number] PCP - General 07/31/18 Jessica Martínez MD [address] [employer] [address] [place] [id number] Consulting Physician Obstetrics and Gynecology 11/16/20 documented as of this encounter
--- OUTSIDE RECORDS SUMMARY | 2024-04-11 06:12 | XMS_ITS | Encounter Summary ---
Author Organization [facility] Healthcare Address [address] [place] [address] Care Team Providers Care Engine Turner Name Role Phone Judy Fishman RANGE RIDER Primary Care Provider + Jessica Martínez MD Unavailable [phone] Encounter Details Date Type Department Care Team (Latest Contact Info) Description 11/29/2022 11:39 AM CDT - 11/29/2022 11:59 PM CDT Hospital Encounter [address] [address] Supervision of high-risk , first [...] often do you attend chur ch or christianity services? 1 to 4 times per year [...] in a residential (including now)? No 05/31/2021 [place] Depression Scale Answer Date Recorded [place] Depression Scale Total 2 07/10/2021 The thought of harming myself has occurred to me . 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 Gender Identity Not on file Sexual Orientation [...] Date/Time Associated Diagnosis Comments URINE CULTURE Routine 11/29/2022 2:09 PM CDT documented in this encounter Results * Urine culture Urine, clean voided (11/29/2022 2:09 PM CDT) Report Final Report: Less than 100,000 colonies/mL (clinically insignificant growth based on current clinical standards) [facility] Organism (CLINICALLY INSIGNIFICANT GROWTH [facility] Urine, clean voided 11/29/2022 2:09 PM CDT 12/02/2022 10:51 AM CDT Narrative [facility] - 12/03/2022 4:19 PM CDT Testing performed by [facility] Microbiology Laboratory ([phone]) us Jane Hunter MD LAB MICROBIOLOGY - GENERAL ORDERABLES Final Result [facility] Department [place] [address] documented in this encounter Visit Diagnoses Diagnosis Supervision of high-risk , first trimester documented in this encounter Care Teams Engine Turner Relationship Specialty Start Date End Date Judy Fishman NP [address] [employer] [address] PCP - General 07/31/18 Jessica Martínez MD [address] [address] Consulting Physician Obstetrics and Gynecology 11/16/20 documented as of this encounter
--- OUTSIDE RECORDS SUMMARY | 2024-04-11 06:12 | XMS_ITS | Encounter Summary ---
Author Organization [facility] Address [address] [place] [address] Phone Care Team Providers Care Ballast Cleaning Operator Name Role Phone Judy Fishman NP Primary Care Provider + Jessica Martínez MD Unavailable Reason for Visit * Reason Onset Date Comments GI pre-procedural assessment 06/24/2022 Encounter Details Date Type Department Care Team (Late st Contact Info) Description 06/24/2022 Telephone [facility] Gastroenterology [address] [facility] 12th [place] [address] [place] [address] Dianelys Marcial RMA GI pre-procedural assessment Social History Tobacco Use Types Packs/Day Years [...] often do you attend chur ch or buddhism services? 1 to 4 times per year 05/31/2021 Do you belong to any clubs o r organizations such as muslim groups, unions, fraternal or athletic groups, or school groups? Yes 05/31/2021 How often do you attend meet ings of the clubs or organizations you belong to? Never 05/31/2021 Are you , , di vorced, , never , or living with a partner? 05/31/2021 AUDIT-C Answer Date Recorded Q1: How often do you have a drink containing alc ohol? Never 05/28/2021 Average Number of Drinks Not on file 022 Frequency of Binge Drinking Not on file 05/15 Overall Financial Resource Strain (CARDIA) Answe r [...] in a jail (including now)? No 05/31/2021 Nichols Depression Scale Answer Date Recorded Nichols Depression Scale Total 2 07/10/2021 The thought of harming myself has occurred to me . 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 Wt Readings from Last 1 Encounters: 06/13/22 110.8 kg (244 lb 3.2 oz) [] Patient had GI procedure/CPAP clinic/GI clinic <30 days (if Yes, no medical screening questions needed unless new clinical issues in last 30 days) Medical screening questions: BMI/Weight: NA CARDIOVASCULAR: None RESPIRATORY/LUNG: None RENAL/LIVER/GI: None BLEEDING/CLOTTING: None NEUROLOGICAL: None ENDOCRINE: None PRIOR PROCEDURE ISSUES: None FAMILY DAY CARER/: NA IMPLANTS.: None Notes: DIABETIC MEDS Y/N: No/NA []Yes- Discuss diabetes medication management with prescribing physician DIALYSIS Y/N: No/NA []HD- Schedule on non-HD day, see protocol []PD- Drain PD fluid AM of procedure, if colonoscopy order AB ppx, see protocol PACEMAKER/ICD Y/N: No/NA Device info: Last documented device check: Any shocks since last cards visit (if yes must see cardiology for procedure clearance): BLOOD THINNERS/ANTICOAG/ANTIPLATELET (BESIDES ASA) Medication: NONE Physician contacted for hold order/date sent: Hold order Method sent: Date hold received: Hold instructions: CONTINUE ASPIRIN INFORMATION REQUESTED []Imaging: []Medical Progress Note/H&P []Medication list []Other: PATIENT OPTIMIZATION []Physician reviewing escalation: []CPAP: Date scheduled: Outcome : [] Location limitations: Scheduling Scheduling location limitations: Flocculator Operator needed [] NA Language: POA [] NA Name: SPECIAL PROCEDURE INSTRUCTIONS Scheduling Notes Procedure information Date of procedure: July 04 2022 Time of procedure: 1230 Arrival time: 1130 Location: Proceduralist: Maycol Instructions Method of instructions: MyChart []Confirmation of ride/furniture repairer []Post anesthesia restrictions given []NPO Instructions: []Diet Instructions: []Take non-blood thinner prescription meds that morning []Bring med list, photo ID, insurance card, no valuables []Bring COVID vaccination card (if vaccinated) Bowel Prep Prep prescribed: Miralax Method of Bowel Prep (RX): NA * Telephone Encounter - Dianelys Marcial RMA - 06/24/2022 1:05 PM CDT ----- Message from Abiola Silverman RN sent at 06/13/2022 4:01 PM RETORT FURNACE OPERATOR ----- Regarding: May colonoscopy Per Lizz's visit, pt needs colonoscopy documented in this encounter Plan of Treatment Not on file documented as of this encounter Visit Diagnoses Diagnosis Chronic diarrhea- Primary Diarrhea Crohn's disease of small intestine with other complication (HCC) documented in this encounter Orders Case Request Count Last Ordered Date First Orde red Date CASE REQUEST GI 1 06/24/2022 documented in this encounter Care Teams Ballast Cleaning Operator Relationship Specialty Start Date End Date Judy Fishman NP [address] [address] PCP - General 07/31/18 Jessica Martínez MD [address] [id number] Consulting Physician Obstetrics and Gynecology 11/16/20 documented as of this encounter
--- OUTSIDE RECORDS SUMMARY | 2024-04-11 06:12 | XMS_ITS | Encounter Summary ---
Author Organization [facility] Address [address] [place] [address] Care Team Providers Care Supervisor Plasma Name Role Phone Judy Fishman MARKETING MGR Primary Care Provider + Jessica Martínez MD Unavailable [phone] Encounter Details Date Type Department Care Team (Late st Contact Info) Description 10/04/2022 10:15 AM CDT Lab [facility] [address] [facility] [place], [place] [id number] Crohn's disease of small intestine with other complication (HCC); Supervision of high-risk , first trimester Social [...] in a prison (including now)? No 05/31/2021 [place] Depression Scale Answer Date Recorded [place] Depression Scale Total 2 07/10/2021 The thought of harming myself has occurred to me . 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 Gender Identity Not on file Sexual Orientation Not on file documented as of this encounter Plan of Treatment Not on file documented as of this encounter Procedures Procedure Name Priority Date/Time Associated Diagnosis Comments TYPE AND SCREEN Routine 10/04/2022 10:14 AM CDT Crohn's disease of small intestine with other complication (HCC) Supervision of high-risk , first trimester EGFR Routine 10/04/2022 10:07 AM CDT Crohn's disease of small intestine with other complication (HCC) Supervision of high-risk , first trimester DIFFERENTIAL AUTO Routine 10/04/2022 10: 07 AM CDT Crohn's disease of small intestine with other complication (HCC) Supervision of high-risk , first trimester HIV 1/2 ANTIBODY PLUS P24 ANTIGEN Routine 10/04/2022 10:07 AM CDT Crohn's disease of small intestine with other complication (HCC) Supervision of high-risk , first trimester CBC WITH AUTO DIFFERENTIAL Routine 10/04/2022 10:07 AM CDT Crohn's disease of small intestine with other complication (HCC) Supervision of high-risk , first trimester HEPATITIS C ANTIBODY Routine 10/04/2022 10:07 AM CDT Crohn's disease of small intestine with other complication (HCC) Supervision of high-risk , first trimester RUBELLA IGG Routine 10/04/2022 10:07 AM CDT Crohn's disease of small intestine with other complication (HCC) Supervision of high-risk , first trimester RPR Routine 10/04/2022 10:07 AM CDT Crohn's disease of small intestine with other complication (HCC) Supervision of high-risk , first trimester HEPATITIS B SURFACE ANTIGEN Routine 10/04/2022 10:07 AM CDT Crohn's disease of small intestine with other complication (HCC) Supervision of high-risk , first trimester VARICELLA ZOSTER ANTIBODY, IGG Routine 10/04/2022 10:07 AM CDT Crohn's disease of small intestine with other complication (HCC) Supervision of high-risk , first trimester HEMOGLOBIN A1C Routine 10/04/2022 10:07 AM CDT Crohn's disease of small intestine with other complication (HCC) Supervision of high-risk , first trimester COMPREHENSIVE METABOLIC PANEL Routine 10/04/2022 10:07 AM CDT Crohn's disease of small intestine with other complication (HCC) Supervision of high-risk , first trimester documented in this encounter Results * Type and screen (10/04/2022 10:14 AM CDT) ABO Rh B Positive [facility] Andres, indirect Negative [facility] Blood 10/04/2022 10:1 4 AM CDT 10/04/2022 11:27 AM CDT Narrative [facility] - 10/04/2022 12:46 PM CDT Has the patient had Daratumumab or Isatuximab in the past 6 months?->Unknown Alley Reynoso MD LAB BLOOD BANK TEST ORDERA BLES Final Result [facility] [place] [address] * eGFR (10/04/2022 10:07 AM CDT) Pathologist [facility] eGFR >90 90 - 130 mL/min/1. 73 m2 [facility] Comment: Interpretive Data Reference Interval Normal [...] interpretive data was last reviewed 2021. Blood 10/04/2022 10:0 7 AM CDT 10/04/2022 11:25 AM CDT us Alley Reynoso MD LAB BLOOD ORDERABLES Final Result [facility] [place] [address] * (ABNORMAL) Differential, auto (10/04/2022 10:07 AM CDT) Neutrophil abs 6.8(H) 1.7 - 6.5 K/cumm [facility] Imm gran abs 0.0 0.0 - 0.1 K/cumm [facility] Lymphocyte abs 3.0 0.8 - 3.3 K/cumm [facility] Monocyte abs 0.5 0.2 - 0.8 K/cumm [facility] Eosinophil abs 0.2 0.0 - 0.5 K/cumm [facility] Basophil abs 0.0 0.0 - 0.1 K/cumm [facility] Neutrophil pct 64.1 % [facility] Comment: Interpretive Data Percent cell count reference ranges are not reported, since discordance with absolute values may lead to misinterpretation of CBC data. Current Interpretive Data was last revised on 2017. Imm gran pct 0.3 % [facility] Comment: Interpretive Data Percent cell count reference ranges are not reported, since discordance with absolute values may lead to misinterpretation of CBC data. Current Interpretive Data was last revised on 2017. Lymphocyte pct 28.5 % [facility] Comment: Interpretive Data Percent cell count reference ranges are not reported, since discordance with absolute values may lead to misinterpretation of CBC data. Current Interpretive Data was last revised on 2017. Monocyte pct 4.9 % [facility] Comment: Interpretive Data Percent cell count reference ranges are not reported, since discordance with absolute values may lead to misinterpretation of CBC data. Current Interpretive Data was last revised on 2017. Eosinophil pct 1.8 % [facility] Comment: Interpretive Data Percent cell count reference ranges are not reported, since discordance with absolute values may lead to misinterpretation of CBC data. Current Interpretive Data was last revised on 2017. Basophil pct 0.4 % [facility] Comment: Interpretive Data Percent cell count reference ranges are not reported, since discordance with absolute values may lead to misinterpretation of CBC data. Current Interpretive Data was last revised on 2017. Blood 10/04/2022 10:0 7 AM CDT 10/04/2022 11:25 AM CDT us Alley Reynoso MD LAB BLOOD ORDERABLES Final Result [facility] [place] [address] * Comprehensive metabolic panel (10/04/2022 10:07 AM CDT) Sodium 138 135 - 145 mmol/L [facility] Potassium, pl 3.8 3.3 - 4.9 mmol/L [facility] Chloride 102 97 - 110 mmol/L [facility] CO2 27 22 - 32 mmol/L [facility] Anion gap 9 2 - 15 mmol/L [facility] BUN 8 6 - 25 mg/dL [facility] Creatinine 0.62 0.60 - 1.10 mg/dL [facility] Glucose 92 70 - 199 mg/dL [facility] Comment: Interpretive Data Fasting glucose >/= [...] interpretive data was last revised 2022. Calcium 9.2 8.5 - 10.3 mg/dL [facility] Bilirubin, total 0.3 0.1 - 1.2 mg/dL [facility] Protein, pl 7.9 6.5 - 8.5 g/dL [facility] Albumin 4.0 3.5 - 5.0 g/dL [facility] Alk phos 82 40 - 130 Units/L [facility] ALT 13 7 - 45 Units/L [facility] AST 12 10 - 45 Units/L [facility] Blood 10/04/2022 10:0 7 AM CDT 10/04/2022 11:25 AM CDT Alley Reynoso MD LAB BLOOD ORDERABLES Final Result [facility] [place] [address] * (ABNORMAL) Hemoglobin A1c (10/04/2022 10:07 AM CDT) Hgb A1C 5.7(H) 4.0 - 5.6 % [facility] Estimated Average Glucose 117 mg/dL [facility] Comment: The ADA recommends reporting an estimated Average Glucose (eAG) with all Hemoglobin A1c results using the equation derived from a study of 507 normal and diabetic adults. ??Minority populations were underrepresented and children were not included. ?? (Diabetes Care 2020; 43(S1): S66-S76). ??The eAG is not equivalent to a fasting glucose. Blood 10/04/2022 10:0 7 AM CDT 10/04/2022 11:25 AM CDT Alley Reynoso MD LAB BLOOD ORDERABLES Final Result Performing Organization Address [facility] Co de Phone Number [facility] [place] [address] * (ABNORMAL) CBC with auto differential (10/04/2022 10:07 AM CDT) [facility] WBC 10.7(H) 3.8 - 9.9 K/cumm [facility] Hgb 12.0 11.9 - 15.5 g/dL [facility] Hct 37.1 35.6 - 45.5 % [facility] Plt 360 150 - 400 K/cumm [facility] MPV 10.0 9.1 - 12.3 fL [facility] RBC 4.52 3.90 - 5.20 M/cumm [facility] MCV 82.1 81.3 - 96.4 fL [facility] MCH 26.5(L) 27.1 - 33.3 pg [facility] MCHC 32.3 32.3 - 35.7 g/dL [facility] RDW CV 14.3 11.1 - 14.9 % [facility] RDW SD 42.5 35.7 - 48.1 fL [facility] NRBC abs 0.00 0.00 - 0.01 K/cumm [facility] Blood 10/04/2022 10:0 7 AM CDT 10/04/2022 11:25 AM CDT us Alley Reynoso MD LAB BLOOD ORDERABLES Final Result Performing Organization Address [facility] Co de Phone Number [facility] [place] [address] * Hepatitis B Surface Antigen (10/04/2022 10:07 AM CDT) [facility] HepBsAg Nonreactive Nonreactive [facility] Blood 10/04/2022 10:0 7 AM CDT 10/04/2022 11:26 AM CDT Alley Reynoso MD LAB MICROBIOLOGY - GENERAL ORDERABLES Final Result Performing Organization Address [facility] Co de Phone Number [facility] [place] [address] * RPR Blood (10/04/2022 10:07 AM CDT) RPR Nonreactive Nonreactive [facility] Blood 10/04/2022 10:0 7 AM CDT 10/04/2022 11:26 AM CDT Alley Reynoso MD LAB MICROBIOLOGY - GENERAL ORDERABLES Final Result Performing Organization Address [facility] de Phone Number [facility] [place] [address] * Rubella IgG antibody (10/04/2022 10:07 AM CDT) Rubella IgG Reactive [facility] Comment:Reactive: Results torres ggest response to immunization or prior exposure to the virus. Blood 10/04/2022 10:0 7 AM CDT 10/04/2022 11:26 AM CDT Alley Reynoso MD LAB MICROBIOLOGY - GENERAL ORDERABLES Final Result Performing Organization Address [facility] de Phone Number [facility] [place] [address] * Varicella Zoster IgG antibody Blood (10/04/2022 10:07 AM CDT) VZV IgG Reactive Reactive [facility] Comment:Reactive: Results torres ggest response to immunization or prior exposure to the virus. Blood 10/04/2022 10:0 7 AM CDT 10/04/2022 11:26 AM CDT Alley Reynoso MD LAB MICROBIOLOGY - GENERAL ORDERABLES Final Result Performing Organization Address City/State/[facility] [place] [address] * Hepatitis C antibody (10/04/2022 10:07 AM CDT) Hep C Ab Nonreactive Nonreactive [facility] Comment:Antibodies to HCV no t detected. Does NOT exclude the possibility of recent exposure to HCV. Current interpretive data was last revised on 21 Blood 10/04/2022 10:0 7 AM CDT 10/04/2022 11:26 AM CDT Alley Reynoso MD LAB MICROBIOLOGY - GENERAL ORDERABLES Final Result Performing Organization Address [facility] [place] [address] * HIV 1/2 Antibody plus p24 Antigen Blood (10/04/2022 10:07 AM CDT) HIV 1/2 ab + p24 ag Nonreactive Nonreactive [facility] Comment:Nonreactive for HIV- 1 antigen and HIV-1/HIV-2 antibodies. No laboratory evidence of HIV infection. If acute HIV infection is suspected, consider testing for HIV-1 RNA. Current interpretive data was last revised on 21. Blood 10/04/2022 10:0 7 AM CDT 10/04/2022 11:25 AM CDT Alley Reynoso MD LAB MICROBIOLOGY - GENERAL ORDERABLES Final Result Performing Organization Address City/[facility] [place] [address] documented in this encounter Visit Diagnoses Diagnosis Crohn's disease of small intestine with other complication (HCC) Supervision of high-risk , first trimester documented in this encounter Care Teams Supervisor Plasma Relationship Specialty Start Date End Date Judy Fishman NP [address] [address] PCP - General 07/31/18 Jessica Martínez MD [address] [address] Consulting Physician Obstetrics and Gynecology 11/16/20 documented as of this encounter
--- OUTSIDE RECORDS SUMMARY | 2024-04-11 06:12 | XMS_ITS | Encounter Summary ---
Author Organization [facility] Healthcare Address [address] [place] [address] Care Team Providers Care Applied Research Director Name Role Phone Judy Fishman BARREL INSPECTOR TIGHT Primary Care Provider + Jessica Martínez MD Unavailable [phone] Reason for Visit * Auth/Cert (Routine) Specialty Diagnoses / Procedures Referred By Mary t Referred To Contact Diagnoses Chronic diarrhea Crohn's disease of small intestine with other complication (HCC) Chronic diarrhea [K52.9] Crohn's disease of small intestine with other complication (HCC) [K50.018] Procedures [place] COLONOSCOPY FLX DX W/COLLJ SPEC WHEN PFRMD COLONOSCOPY Referral ID Status Reason Start Date Expiration Date Visits Re quested Visits Authorized [id number] 1 1 Encounter Details Date Type Department Care Team (Late st Contact Info) Description 07/04/2022 12:30 PM CDT - 07/04/2022 1:15 PM CDT Surgery Endoscopy [address] [place] [address] Trent Severino MD [address] [place] [address] COLON BIOPSY Surgery Details Date/Time Status Location OR Service Patient Class Case Class Case Type Trauma Case? 07/04/2022 12:30 PM Posted [facility] ENDOSCOPY Endo 04 Gastroenterology Outpatient Elective Panel 1 Procedure LRB Anes Op Region Wound Class Comments COLON BIOPSY N/A Monitor Anesthesia Care N/A Surgeon Surgeon Role Service Panel Trent Severino MD Primary Gastroenterology 1 documented in this encounter Social History Tobacco [...] a skilled nursing (including now)? No 05/31/2021 [place] Depression Scale Answer Date Recorded [place] Depression Scale Total 2 07/10/2021 The thought of harming myself has occurred to me . 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 * Colonoscopy (Discharge Care) (Marshallese) documented in this encounter Medications at Time [...] BIOPSY W/ LOOP ELECTRODE EXCISION ??? CHOLECYSTECTOMY 2017 OB History 1 Para 1 Term 1 [...] Medication protocol when under care of a OPTOMETRIST/PRACTICE OWNER Planned anesthesia: General Informed Consent: Anesthesia plan [...] Female Attending MD: Trent Severino M.D. Room: [facility] ENDOSCOPY ROOM 04 Note Status: Finalized Procedure: [...] scope was passed under direct vision. The [id number] was introduced through the anus and advanced [...] re:Bowel prep When you arrive come to [facility] hospital entrance. As you enter there will [...] hospital with a responsible adult. Masking at [facility] is now optional. You may bring a mask and masks are available at hospital entrance. We respect personal choice of anyone who chooses to wear a mask. Please be reassured all employees are ready to mask when providing care upon your request If your courtesy car driver chooses not to come in or will be picking you up after your procedure with anesthesia we will call your courtesy car driver to confirm your ride home. documented [...] Biopsy) 07/04/2022 2:10 PM CDT Narrative PATHOLOGY [facility] - 07/05/2022 10:58 AM CDT EPIC results best viewed via link to PDF [facility] [place] [address] Note to Patients: This report may contain [...] Gender: ??F : ??1990 (Age: 31) Address: ??[address] [place] [address] ??[id number] Hospital #: ??[id number] Taken:07/04/2022 Received:07/04/2022 Reported: 07/05/2022 Patient Type: BWC EP SAME Client ?[facility] Service: Gastroenterology Location: Physician(s): ??Trent Severino M.D. Judy Fishman NP Diagnosis: A. Small [...] interpretation for this case was performed at [facility], Department of Surgical Pathology, [address] [facility], [id number], ??[place], [place] ??[address] ?? CLIA # [id number] The performance characteristics of some immunohistochemical stains, fluorescence in-situ hybridization tests and immunophenotyping by flow cytometry cited in this report (if any) were determined by the Surgical Pathology and Flow Cytometry Departments at [facility] as part of an ongoing supplier quality manager program and in compliance with federally mandated [...] Surgical Pathology and Flow Cytometry Departments of [facility]. ??It has not been cleared or approved by the U. S. Food and Drug Administration. IMAGES AND SCANNED DOCUMENTS, IF INCLUDED, ONLY VIEWABLE IN PDF VERSION OF REPORT Trent Severino MD LAB PATHOLOGY ORDERABLES Cee l Result PATHOLOGY [facility] [phone] * COLONOSCOPY (07/04/2022 1:48 PM CDT) Anatomical Region Laterality Modality Other Narrative Procedure Note Trent Severino MD - 07/04/2022 1:48 PM CDT ENDOSCOPY LAB Patient Name: Liliana Velasco Procedure Date: 07/04/2022 1:48 PM Date of : 1990 Admit Type: Outpatient Age: 31 Gender: Female Attending MD: Trent Severino M.D. Room: [facility] ENDOSCOPY ROOM 04 Note Status: Finalized Procedure: [...] The scope was passed under direct vision.The [id number] was introduced through the anusand advanced to [...] Acceptable Urine 07/04/2022 11:5 0 AM CDT [facility] Provider POINT OF CARE TEST ORDERA BLES Final Result documented in this encounter Visit Diagnoses Diagnosis Chronic diarrhea Diarrhea Crohn's disease of small intestine with other complication (HCC) Chronic diarrhea Diarrhea Crohn's disease of small [...] on May 07/04/22 at 1152, Pre-Procedure (GI) simethicone (MYLICON) 66.7 mg/mL oral drops As needed, Starting on May 07/04/22 at 1401, Intra-Op Given 07/04/2022 2:01 PM CDT 40 mg GI Tract sodium chloride 0.9% flush 0.5-20 mL 0.5-20 [...] Intra-Op 1401 (Given - Provid er: Trent Severino MD) sodium chloride 0.9% flush 0.5-20 mL [...] ondansetron (ZOFRAN) injection 4 mg 2 07/04 sodium chloride 0.9% flush 0.5-20 mL 1 06/13 sodium chloride 0.9% infusion 2 07/04/2022 Discharge Count Last Ordered Date First Orde red Date DISCHARGE PATIENT 1 07/04/2022 documented in this encounter Care Teams Applied Research Director Relationship Specialty Start Date End Date uJdy Fishman NP [address] [address] PCP - General 07/31/18 Jessica Martínez MD [address] [address] Consulting Physician Obstetrics and Gynecology 11/16/20 documented as of this encounter
--- OUTSIDE RECORDS SUMMARY | 2024-04-11 06:12 | XMS_ITS | Encounter Summary ---
Author Organization [facility] Healthcare Address [address] [place] [address] Care Team Providers Care Supervisor Lending Activities Name Role Phone Judy Fishman COAL BRIQUETTE MACHINE OPERATOR Primary Care Provider + Jessica Martínez MD Unavailable [phone] Reason for Visit * Reason Comments Vaginal Bleeding Encounter Details Date Type Department Care Team (Latest Contact Info) Description 11/15/2022 7:23 AM CDT - 11/15/2022 9:23 AM CDT Hospital Encounter [address] [address] Claritza Ward MD [address] [facility] [phone] [place] [address] Discharge Disposition: Discharge to home or self [...] week 05/31/2021 How often do you attend [facility] or yarsani services? 1 to 4 times per year 05/31/2021 Do you belong to any clubs o r organizations such as faith groups, unions, fraternal or athletic groups, or [...] health care facility (including now)? No 05/31/2021 [place] Depression Scale Answer Date Recorded [place] Depression Scale Total 2 07/10/2021 The thought of harming myself has occurred to me . Never 07/10/2021 Comments Yes Sex and Gender Information Value Date Recorded Sex Assigned at Not on file Legal Sex Female 7:54 PM ACCOUNT RELATIONSHIP MANAGER Gender Identity Not on file Sexual Orientation Not on file documented as of this encounter Last Filed Vital Signs Vital Sign Reading Time Taken Comments Blood Pressure 124/66 11/15/2022 7:30 AM CDT Pulse 55 11/15/2022 7:30 AM CDT Temperature 36.8 ??C (98.3 ??F) 11/15/2022 7:30 AM CD T Respiratory Rate 17 11/15/2022 7:30 AM CDT Oxygen Saturation 99% 11/15/2022 7:30 AM CDT Inhaled Oxygen Concentration - - Weight 108.5 kg (239 lb 4.8 oz) 11/15/2022 7:30 AM CDT Height - - Body Mass Index 43.77 11/01/2022 10:54 AM CDT documented in this encounter Discharge Instructions * Attachments The following attachments cannot be sent through Care Everywhere. * at 11 to 14 Weeks (AfterCare(R) Instructions(ER/ED)) ([place] Citizen) documented in this encounter Medications at Time [...] in this encounter Progress Notes * Iram Ewing, RN - 11/15/2022 8:26 AM CDT Duncan presented to [facility] with vaginal bleeding while on toilet paper when wiping this morning, ongoing nausea this , taking medication at home for nausea, no pain or any other complaints. VSS. COAL BRIQUETTE MACHINE OPERATOR assessment and ultrasound, showed +FHT. Discharge instructions and return precautions given, stable for d/c home documented in this encounter H&P Notes * Qi Watkins MD - 11/15/2022 8:39 AM CDT Obstetrics H&P Chief Complaint: Vaginal bleeding Estimated Date of Delivery: 05/23/23 Provider: YOUNG HPI: Liliana Mancilla is a 32 y.o. female at 13w0d gestation, dated by 1st trimester ultrasound. She presented today with c/o VB. Reports she noticed bright red blood when wiping after going to the bathroom at 0630 this morning. Did not soak underwear. No further bleeding noticed after wiping a couple times. Denies recent trauma or intercourse in the last 48 hrs. Denies abdominal pain, fever, dysuria, and vaginal irritation. 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 History of Abnormal Pap: None STD History: none Past Medical History: Diagnosis Date Autoimmune disorder (HCC) Crohn's disease (CMS/HCC) (HCC) 2019 Diabetes mellitus (HCC) GDM Hypertension in , preeclampsia, delivered 07/10/2021 care following vaginal delivery 05/29/2021 # ID: [...] History Tobacco Use Smoking status: Former Packs/day: 0.50 Types: Cigarettes Quit date: 10/03/2020 Years since quittin.1 Smokeless tobacco: Never Substance and Sexual Activity [...] Itching HOME MEDICATIONS : acetaminophen 32 mg/mL doxylamine (UNISOM) 25 mg tablet vit no.124/iron/folic ( VITAMIN ORAL) prochlorperazine (COMPAZINE) 10 mg tablet pyridoxine (vitamin B-6) 25 mg tablet vedolizumab (ENTYVIO) 300 mg recon soln Review of Sys: Negative except per HPI Vitals: Temp: [36.8 ??C (98.3 ??F)] 36.8 ??C (98.3 ??F) Pulse: [55] 55 Resp: [17] 17 BP: (124)/(66) 124/66 Physical Exam: General: NAD, mood appropriate Cardiovascular: Regular rate and rhythm Pulmonary: Clear to ausculation bilaterally Abdomen: Gravid, non-tender Extremities: Warm and well perfused Speculum Exam: no pooling of fluid seen, cx visually closed, - valsalva, scant amount of red blood noted at the os, as well as ectropic cx. wet prep results: resulted at bedside: no pathogens and pH 5.0 Cervix: / / visually closed Ultrasound: BSUS with fht's 160, + movement Labs: Lab Results Component Value Date ABORH B Positive 10/04/2022 IDCOOMB Negative 10/04/2022 [id number] Nonreactive 10/04/2022 [id number] NON-REACTIVE 05/25/2021 LABRPR Nonreactive 10/04/2022 RUBELIGG Reactive 10/04/2022 HEPBSAG Nonreactive 10/04/2022 GBS neg 05/24/2021 VZVIGG Reactive 10/04/2022 Lab Results Component Value Date COLORU Light Yellow 11/15/2022 CLARITYU Clear 11/15/2022 SPECGRAVU 1.010 11/15/2022 RHIANNON 7.5 11/15/2022 GLUCOSEUR Negative 11/15/2022 KETONESU Negative 11/15/2022 BLOODUR 0.2 (H) 05/12/2017 PROTUR Negative 11/15/2022 POCURNITRITE Negative 11/15/2022 LEUKOCYTESUR Small (A) 11/15/2022 Assessment and Plan #Vaginal bleeding -Rh Positive -abd exam benign, no pain -1 episode of bright red blood when wiping -SSE: - pooling, - valsalva, cx visually closed. Scant red blood at cx os. -Wet Prep WNL -Udip unremarkable -denies concern for STI's -Early bleeding precautions reviewed #FWB Fhts 160 by BSUS Plan discussed with Dr. Watkins. [place] home. F/u scheduled 11/29. Eda Almonte NP 11/15/22 M Fellow Attestation I have discussed Liliana M Fadler with the above provider on 11/15/2022. I have reviewed the treatmentplan and recommendations. I agree with the findings and the plan of care as documented in the note. Reassuring evaluation. Rh+. Qi Watkins MD, MPH Maternal- Medicine Fellow Cosigned by Mary Ellen Hopkins MD at 11/15/2022 5:59 PM CDT Associated attestation - Mary Ellen Hopkins MD - 11/15/2022 5:59 PM CDT I agree with the medical care and documentation provided. I did not see the patient. Mary Ellen Hopkins MD Metrology Manager Division of Maternal- Medicine documented in this encounter Plan of Treatment Not on file documented as of this encounter Procedures Procedure Name Priority Date/Time Associated Diagnosis Comments POCT URINALYSIS DIPSTICK Routine 11/15/2022 8:20 AM CDT documented in this encounter Results * (ABNORMAL) POCT urinalysis dipstick (11/15/2022 8:20 AM CDT) Color, Urine, POC Light Yellow Clarity, ur, POC Clear Clear Glucose, ur, POC Negative Negative MG/DL Bilirubin, ur, POC Negative Negative, Small, Moderate, Large Ketones, ur, POC Negative Negative Specific Vidal, POC 1.010 1.003 - 1.030 Blood, ur, POC Small(A) Negative pH, ur, POC 7.5 5.0 - 8.0 Protein, ur, POC Negative Negative Urobilinogen, urine, POC 0.2 0.2 - 1.0 mg/dL Nitrite, ur, POC Negative Negative Leukocytes, ur, POC Small(A) Negative Lot Number [id number] Urine 11/15/2022 8:20 AM CDT Eda Almonte COAL BRIQUETTE MACHINE OPERATOR POINT OF CARE TEST ORDERA BLES Final Result documented in this encounter Visit Diagnoses Not on filedocumented in this encounter Orders Nursing Count Last Ordered Date First Orde red Date VITAL SIGNS 1 11/15/2022 Discharge Count Last Ordered Date First Orde red Date DISCHARGE PATIENT 1 11/15/2022 documented in this encounter Care Teams Supervisor Lending Activities Relationship Specialty Start Date End Date Judy Fishman NP [address] [employer] [address] PCP - General 07/31/18 Jessica Martínez MD [address] [employer] [address] Consulting Physician Obstetrics and Gynecology 11/16/20 documented as of this encounter
--- OUTSIDE RECORDS SUMMARY | 2024-04-11 06:12 | XMS_ITS | Encounter Summary ---
Author Organization [facility] Address [address] [place] [address] Phone Care Team Providers Care Master Merchandiser Name Role Phone Judy Fishman NP Primary Care Provider + Jessica Martínez MD Unavailable [phone] Encounter Details Date Type Department Care Team (Late st Contact Info) Description 11/14/2022 Orders Only [facility] Maternal- Medicine [facility] [address] [facility] [address] [place] [address] Pauline Campos RN Supervision of high-risk , first trimester (Primary Dx); Breast feeding status of mother Social History Tobacco Use Types Packs/Day Years [...] How often do you attend chur or restorationism services? 1 to 4 times per year 05/31/2021 Do you belong to any clubs o r organizations such as religion groups, unions, fraternal or athletic groups, or [...] a group home (including now)? No 05/31/2021 [place] Depression Scale Answer Date Recorded [place] Depression Scale Total 2 07/10/2021 The thought of harming myself has occurred to me . Never 07/10/2021 Comments Yes Sex and Gender Information Value Date Recorded Sex Assigned at Not on file Legal Sex Female 7:54 PM ADJUNCT LATIN PROFESSOR Gender Identity Not on file Sexual Orientation Not on file documented as of this encounter Plan of Treatment Not on file documented as of this encounter Visit Diagnoses Diagnosis Supervision of high-risk , first trimester- Primary Breast feeding status of mother documented in this encounter Orders General Supply Count Last Ordered Date First Or dered Date DOUBLE ELECTRIC BREAST PUMP 1 11/14/2022 documented in this encounter Care Teams Master Merchandiser Relationship Specialty Start Date End Date Judy Fishman NP [address] [employer] [address] [place] [id number] PCP - General 07/31/18 Jessica Martínez MD [address] [employer] [address] [place] [id number] Consulting Physician Obstetrics and Gynecology 11/16/20 documented as of this encounter
--- OUTSIDE RECORDS SUMMARY | 2024-04-11 06:12 | XMS_ITS | Encounter Summary ---
Author Organization [facility] Address [address] [place] [address] Phone Care Team Providers Care Oceanologist Name Role Phone Judy Fishman NP Primary Care Provider + Jessica Martínez MD Unavailable [phone] Reason for Referral * Consultation (Routine) - Closed Specialty Diagnoses / Procedures Referred By Contac t Referred To Contact Maternal and Medicine Diagnoses High risk medications (not anticoagulants) long-term use Crohn's disease of small intestine with other complication (HCC) Less than 8 weeks gestation of Trent Severino MD [address] [place] [address] Phone: tel: fax: [facility] (All Locations) Referral ID Status Reason Start Date Expiration Date V isits Requested Visits Authorized [id number] Closed Specialty Services Required 09/19/2022 10/19/2023 1 99 Question Answer Please select the performing region: [facility] (All Locations) [167] # of visits: 1 Encounter Details Date Type Department Care Team (Late st Contact Info) Description 09/19/2022 Orders Only [facility] Gastroenterology [address] [facility] 12th [place] [address] Trent Severino MD [address] [place] [address] High risk medications (not anticoagulants) long-term use (Primary Dx); Crohn's disease of small intestine with other complication (HCC); Less than 8 weeks gestation of Social History Tobacco Use Types Packs/Day Years [...] often do you attend chur ch or gnosticist services? 1 to 4 times per year 05/31/2021 Do you belong to any clubs o r organizations such as confucianism groups, unions, fraternal or athletic groups, or [...] a group home (including now)? No 05/31/2021 [place] Depression Scale Answer Date Recorded [place] Depression Scale Total 2 07/10/2021 The thought of harming myself has occurred to me . Never 07/10/2021 Comments No Sex and Gender Information Value Date Recorded Sex Assigned at Not on file Legal Sex Female 7:54 PM CLAIMS INVESTIGATOR Gender Identity Not on file Sexual Orientation Not on file documented as of this encounter Progress Notes * Abiola Silverman, RU - 09/19/2022 9:07 AM CDT Received notification pt had contacted office reporting a of 7 weeks and requesting a referral to high scaler. Referral placed. documented in this encounter Plan of Treatment Scheduled Referrals Name Type Priority Associated Diagnoses Orde r Schedule Ambulatory referral to Maternal and Medicine Outpatient Referral Routine High risk medications (not anticoagulants) long-term use Crohn's disease of small intestine with other complication (HCC) Less than 8 weeks gestation of Expected: 10/03/2022 (Approximate), Expires: 09/20/2023 documented as of this encounter Visit Diagnoses Diagnosis High risk medications (not anticoagulants) long-term use- Primary Encounter for long-term (current) use of other medications Crohn's disease of small intestine with other complication (HCC) Less than 8 weeks gestation of documented in this encounter Care Teams Oceanologist Relationship Specialty Start Date End Date Judy Fishman NP [address] [address] PCP - General 07/31/18 Jessica Martínez MD [address] [address] Consulting Physician Obstetrics and Gynecology 11/16/20 documented as of this encounter
--- OUTSIDE RECORDS SUMMARY | 2024-04-11 06:12 | XMS_ITS | Encounter Summary ---
Author Organization [facility] Address [address] [place] [address] Care Team Providers Care Analyst Food And Beverage Name Role Phone Judy Fishman BRAKE RELINER Primary Care Provider + Jessica Martínez MD Unavailable [phone] Reason for Referral * Diagnostic Imaging (Routine) [...] Gestation Erick Nava MD [address] [phone] [place] [address] Phone: tel: fax: [facility] (All Locations) Referral ID Status Reason Start Date Expiration Date Visits Re quested Visits Authorized [id number] Closed 11/01/2022 12/01/2023 1 1 Reason for Visit * Diagnostic [...] Gestation Erick Nava MD [address] [phone] [place] [address] Phone: tel: fax: [facility] (All Locations) Referral ID Status Reason Start Date Expiration Date Visits Re quested Visits Authorized [id number] Closed 11/01/2022 12/01/2023 1 1 Encounter Details Date Type Department Care Team (Latest Contact Info) Description 12/27/2022 9:05 AM CDT - 12/27/2022 11:59 PM CDT Hospital Encounter [facility] - Ultrasound [address] [facility] 7th [address], [address] [place] [address] Supervision of high-risk , first trimester; Crohn's disease of small intestine with other complication (HCC); History of pre-eclampsia in prior , currently in first trimester; Obesity in , antepartum Discharge Disposition: Discharge to home or self [...] week 05/31/2021 How often do you attend [facility] or [facility] services? 1 to 4 times per year 05/31/2021 Do you belong to any clubs o r organizations such as mu-ism groups, unions, fraternal or athletic groups, or [...] in a intermediate (including now)? No 05/31/2021 [place] Depression Scale Answer Date Recorded [place] Depression Scale Total 2 07/10/2021 The thought of harming myself has occurred to me . Never 07/10/2021 Comments Yes Sex and Gender Information Value Date Recorded Sex Assigned at Not on file Legal Sex Female 7:54 PM IRRIGATION LABORER Gender Identity Not on file Sexual Orientation Not on file documented as of this encounter Medications at Time of Discharge aspirin 81 mg chewable tablet Chew 1 tablet every day by oral route. vit no.124/iron/foli c ( VITAMIN ORAL) Take [...] Priority Date/Time Associated Diagnosis Comments US OB DETAIL ANATOMY SINGLE OR FIRST GESTATION Schedule Routine, Read Routine (OP Routine) 12/27/2022 9:05 AM CDT Supervision of high-risk , first trimester Crohn's disease of small intestine with other complication (HCC) History of pre-eclampsia in prior , currently in first trimester Obesity in , antepartum documented in this encounter Results * US Ob Detail [...] Diagnosis Supervision of high-risk , first trimester Crohn's disease of small intestine with other complication (HCC) History of pre-eclampsia in prior , currently in first trimester Obesity in , antepartum Obesity complicating , childbirth, or the puerperium, antepartum condition or complication documented in this encounter Care Teams Analyst Food And Beverage Relationship Specialty Start Date End Date Judy Fishman NP [address] [place] [id number] PCP - General 07/31/18 Jessica Martínez MD [address] [employer] [address] Consulting Physician Obstetrics and Gynecology 11/16/20 documented as of this encounter
--- OUTSIDE RECORDS SUMMARY | 2024-04-11 06:12 | XMS_ITS | Encounter Summary ---
Author Organization [facility] Address [address] [place] [address] Phone Care Team Providers Care Hand Tennis Ball Coverer Name Role Phone Judy Fishman NP Primary Care Provider + Jessica Martínez MD Unavailable [phone] Encounter Details Date Type Department Care Team (Late st Contact Info) Description 09/19/2022 Telephone [facility] Maternal- Medicine [facility] [address] [place] [address] Rut Domínguez Social History Tobacco [...] often do you attend chur ch or bahai services? 1 to 4 times per year 05/31/2021 Do you belong to any clubs o r organizations such as denominational groups, unions, fraternal or athletic groups, or [...] a skilled nursing (including now)? No 05/31/2021 [place] Depression Scale Answer Date Recorded [place] Depression Scale Total 2 07/10/2021 The thought of harming myself has occurred to me . Never 07/10/2021 Comments No Sex and Gender Information Value Date Recorded Sex Assigned at Not on file Legal Sex Female 7:54 PM CONTRACT IMPLEMENTATION ANALYST Gender Identity Not on file Sexual Orientation Not on file documented as of this encounter Miscellaneous Notes * Telephone Encounter - Rut Domínguez - 09/19/2022 11:46 AM CDT Attempted to reach pt to discuss the referral for that was sent for her. Left a message. Will also send a [employer] message. documented in this encounter Plan of Treatment Not on file documented as of this encounter Visit Diagnoses Not on filedocumented in this encounter Care Teams Hand Tennis Ball Coverer Relationship Specialty Start Date End Date Judy Fishman NP [address] [place] [id number] PCP - General 07/31/18 Jessica Martínez MD [address] [place] [address] Consulting Physician Obstetrics and Gynecology 11/16/20 documented as of this encounter
--- OUTSIDE RECORDS SUMMARY | 2024-04-11 06:12 | XMS_ITS | Encounter Summary ---
Author Organization [facility] Address [address] [place] [address] Care Team Providers Care Audio/Video Engineer Name Role Phone Judy Fishman IT PORTFOLIO MANAGER Primary Care Provider + Jessica Martínez MD Unavailable [phone] Reason for Referral * Diagnostic Imaging (Routine) - Closed Specialty Diagnoses / Procedures Referred By Contac t Referred To Contact Diagnoses High risk medications (not anticoagulants) long-term use Procedures Ob Limited Clayton Pantoja MD Phone: tel: fax: [facility] (All Locations) Referral ID Status Reason Start Date Expiration Date Visits Re quested Visits Authorized [id number] Closed 09/20/2022 10/20/2023 1 1 Reason for Visit * Diagnostic Imaging (Routine) - Closed Specialty Diagnoses / Procedures Referred By Contac t Referred To Contact Diagnoses High risk medications (not anticoagulants) long-term use Procedures Ob Limited Clayton Pantoja MD Phone: tel: fax: [facility] (All Locations) Referral ID Status Reason Start Date Expiration Date Visits Re quested Visits Authorized [id number] Closed 09/20/2022 10/20/2023 1 1 Encounter Details Date Type Department Care Team (Latest Contact Info) Description 10/04/2022 8:21 AM CDT - 10/04/2022 11:59 PM CDT Hospital Encounter [facility] Ul[facility]ound [address], [address] [place] [address] High risk medications (not anticoagulants) long-term use Discharge Disposition: Discharge to home or self [...] often do you attend chur ch or jain services? 1 to 4 times per year [...] a senior care (including now)? No 05/31/2021 [place] Depression Scale Answer Date Recorded [place] Depression Scale Total 2 07/10/2021 The thought of harming myself has occurred to me . Never 07/10/2021 Comments Yes Sex and Gender Information Value Date Recorded Sex Assigned at Not on file Legal Sex Female 7:54 PM NURSE CONSULTANT Gender Identity Not on file Sexual [...] LIMITED Schedule Routine, Read Routine (OP Routine) 10/04/2022 8:21 AM CDT High risk medications (not anticoagulants) long-term use documented in this encounter Results * US Ob Limited (10/04/2022 8:21 AM CDT) Anatomical Region Laterality Modality Abdomen N/A Ultrasound 10/04/2022 8:43 AM CDT Impressions 10/04/2022 10:54 AM CDT 1. A single viable intrauterine was seen. Cardiac motion was observed.2. The CRL is measuring behind the LMP - the CRL from today's scan would redate the according to ACOG criteria.3. The ovaries appeared normal bilaterally. 4. A small subchorionic hemorrhage is noted in the inferior portion of the lower uterine segment measuring a mean of 6.5 mm. Patient with [facility] visit to follow. Narrative Procedure Note Mary Ellen Hopkins MD - 10/04/2022 IMPRESSION: 1. A single viable intrauterine was seen. Cardiac motion wasobserved.2. The CRL is measuring behind the LMP - the CRL from today'sscan would redate the according to ACOG criteria.3. The ovariesappeared normal bilaterally. 4. A small subchorionic hemorrhage is notedin the inferior portion of the lower uterine segment measuring a mean of6.5 mm. Patient with [facility] visit to follow. Clayton Pantoja MD IMG OB US PROCEDURES F inal Result documented in this encounter Visit Diagnoses Diagnosis High risk medications (not anticoagulants) long-term use Encounter for long-term (current) use of other medications documented in this encounter Care Teams Audio/Video Engineer Relationship Specialty Start Date End Date Judy Fishman NP [address] [place] [id number] PCP - General 07/31/18 Jessica Martínez MD [address] [address] Consulting Physician Obstetrics and Gynecology 11/16/20 documented as of this encounter
--- OUTSIDE RECORDS SUMMARY | 2024-04-11 06:12 | XMS_ITS | Encounter Summary ---
Author Organization [facility] Address [address] [place] [address] Phone Care Team Providers Care Recreation Technician Name Role Phone Judy Fishman NP Primary Care Provider + Jessica Martínez MD Unavailable [phone] Encounter Details Date Type Department Care Team (Late st Contact Info) Description 07/12/2022 Orders Only [facility] Gastroenterology [address] 12th [place] [address] [place] [address] Trent Severino MD [address] [place], [place] [id number] High risk medications (not anticoagulants) long-term use [...] week 05/31/2021 How often do you attend [facility] or taoist services? 1 to 4 times per year 05/31/2021 Do you belong to any clubs o r organizations such as cheondoism groups, unions, fraternal or athletic groups, or [...] in a half-way (including now)? No 05/31/2021 [place] Depression Scale Answer Date Recorded [place] Depression Scale Total 2 07/10/2021 The thought of harming myself has occurred to me . 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 Gender Identity Not on file Sexual Orientation Not on file documented as of this encounter Progress Notes * Hermelinda Don - 07/12/2022 3:00 PM CDT Rcv'd call from pt stating home health infusion nurse was unable to get labs drawn out of IV so requesting lab orders to be sent to [facility] in [place], [place] documented in this encounter Plan of Treatment Not on file documented as of this encounter Procedures Procedure Name Priority Date/Time Associated Diagnosis Comments COPY(IES) SENT TO: Routine 08/23/2022 9: 05 AM CDT CBC WITH AUTO DIFFERENTIAL Routine 08/23/2022 9:05 AM CDT High risk medications (not anticoagulants) long-term use Crohn's disease of small intestine with other complication (HCC) CRP (ACUTE PHASE) Routine 08/23/2022 9:0 5 AM CDT High risk medications (not anticoagulants) long-term use Crohn's disease of small intestine with other complication (HCC) COMPREHENSIVE METABOLIC PANEL Routine 08/23/2022 9:05 AM CDT High risk medications (not anticoagulants) long-term use Crohn's disease of small intestine with other complication (HCC) documented in this encounter Results * COPY(IES) SENT TO: (08/23/2022 9:05 AM CDT) COPY(IES) SENT TO: [facility] Comment: ?[facility] ?COPY TO ACCOUNT ?[id number] ?[place] [address] 08/23/2022 9:0 5 AM CDT 08/23/2022 9:05 AM CDT Narrative [facility] - 08/24/2022 11:03 AM CDT FASTING:NO FASTING: NO Trent Severino MD LAB BLOOD ORDERABLES Final Re sult [facility] * (ABNORMAL) CRP (acute phase) (08/23/2022 9:05 AM CDT) C-RP 22.5(H) <8.0 mg/L [facility] Blood 08/23/2022 9:05 AM CDT 08/23/2022 9:05 AM CDT Narrative [facility] - 08/24/2022 11:03 AM CDT FASTING:NO FASTING: NO Trent Severino MD LAB BLOOD ORDERABLES Final Re sult Performing Organization Address [facility]/ZIP Co de Phone Number [facility] [address] [place] [address] * Comprehensive metabolic panel (08/23/2022 9:05 AM CDT) Glucose 101 65 - 139 mg/dL [facility] Comment: ? Non-fasting reference interval BUN 11 7 - 25 mg/dL [facility] Creatinine 0.64 0.50 - 0.97 mg/dL [facility] eGFR 122 > OR = 60 mL/min/1. 73m2 [facility] Comment: The eGFR is based on the CKD-EPI 2020 equation. To calculate the new eGFR from a previous Creatinine or Cystatin C result, go to https://www.kidney.org/professionals/ kdoqi/gfr%5Fcalculator BUN/creat ratio NOT APPLICABLE 6 - 22 (calc) [facility] Sodium 139 135 - 146 mmol/L [facility] Potassium, pl 4.1 3.5 - 5.3 mmol/L [facility] Chloride 104 98 - 110 mmol/L [facility] CO2 25 20 - 32 mmol/L [facility] Calcium 9.1 8.6 - 10.2 mg/dL [facility] Protein, sr 7.0 6.1 - 8.1 g/dL [facility] Albumin 4.1 3.6 - 5.1 g/dL [facility] GLOBULIN 2.9 1.9 - 3.7 g/dL (calc) [facility] Alb/glob ratio 1.4 1.0 - 2.5 (calc) [facility] Bilirubin, total 0.4 0.2 - 1.2 mg/dL [facility] Alk phos 88 31 - 125 U/L [facility] AST 14 10 - 30 U/L [facility] ALT (SGPT) 20 6 - 29 U/L [facility] Blood 08/23/2022 9:05 AM CDT 08/23/2022 9:05 AM CDT Narrative [facility] - 08/24/2022 11:03 AM CDT FASTING:NO FASTING: NO Trent Severino MD LAB BLOOD ORDERABLES Final Re sult [facility] [address] [place] [address] * (ABNORMAL) CBC with auto differential (08/23/2022 9:05 AM CDT) WBC 8.6 3.8 - 10.8 Thousand/u L [facility] RBC, POC 4.61 3.80 - 5.10 Million/uL [facility] Hgb 12.1 11.7 - 15.5 g/dL [facility] Hct 38.0 35.0 - 45.0 % [facility] MCV 82.4 80.0 - 100.0 fL [facility] MCH 26.2(L) 27.0 - 33.0 pg [facility] MCHC 31.8(L) 32.0 - 36.0 g/dL [facility] Rdw 14.0 11.0 - 15.0 % [facility] Platelets 323 140 - 400 Thousand/u L [facility] MPV 9.8 7.5 - 12.5 fL [facility] Neutrophils, abs 5,194 1,500 - 7,800 cells/uL [facility] Lymphocytes, abs 2,804 850 - 3,900 cells/uL [facility] Monocyte abs 327 200 - 950 cells/uL [facility] Eosinophils, abs 249 15 - 500 cells/uL [facility] Basophils, abs 26 0 - 200 cells/uL [facility] Neutrophils 60.4 % [facility] Lymphocyte pct 32.6 % [facility] Monocytes 3.8 % [facility] Eosinophils 2.9 % [facility] Basophils 0.3 % [facility] Blood 08/23/2022 9:05 AM CDT 08/23/2022 9:05 AM CDT Narrative [facility] - 08/24/2022 11:03 AM CDT FASTING:NO FASTING: NO us Trent Severino MD LAB BLOOD ORDERABLES Final Re sult [facility] [address] [place] [address] documented in this encounter Visit Diagnoses Diagnosis High risk medications (not anticoagulants) long-term use- Primary Encounter for long-term (current) use of other medications Crohn's disease of small intestine with other complication (HCC) documented in this encounter Care Teams Recreation Technician Relationship Specialty Start Date End Date Judy Fishman NP [address] [address] PCP - General 07/31/18 Jessica Martínez MD [address] [address] Consulting Physician Obstetrics and Gynecology 11/16/20 documented as of this encounter
--- OUTSIDE RECORDS SUMMARY | 2024-04-11 06:12 | XMS_ITS | Encounter Summary ---
Author Organization [facility] Address [address] [place] [address] Phone Care Team Providers Care Media Clerk Name Role Phone Judy Fishman NP Primary Care Provider + Jessica Martínez MD Unavailable [phone] Reason for Referral * Diagnostic Imaging (Routine) - Closed Specialty Diagnoses / Procedures Referred By Contac t Referred To Contact Diagnoses High risk medications (not anticoagulants) long-term use Crohn's disease of small intestine with other complication (HCC) Less than 8 weeks gestation of Supervision of high-risk , first trimester Procedures US Ob Limited Alley Reynoso MD [phone] [place] [address] Phone: tel: fax: [facility] (All Locations) Referral ID Status Reason Start Date Expiration Date Visits Re quested Visits Authorized [id number] Closed 10/04/2022 11/03/2023 1 1 Reason for Visit * Reason Comments High Risk Gestation * Consultation (Routine) - Closed Specialty Diagnoses / Procedures Referred By Contac t Referred To Contact Maternal and Medicine Diagnoses High risk medications (not anticoagulants) long-term use Crohn's disease of small intestine with other complication (HCC) Less than 8 weeks gestation of Trent Severino MD [address] [place] [address] Phone: tel: fax: [facility] (All Locations) Referral ID Status Reason Start Date Expiration Date V isits Requested Visits Authorized [id number] Closed Specialty Services Required 09/19/2022 10/19/2023 1 99 Encounter Details Date Type Department Care Team (Latest Contact Info) Description 10/04/2022 9:30 AM CDT Office Visit [facility] Maternal- Medicine [facility] 7th Floor [address] [place] [id number] Supervision of high-risk , first trimester (Primary Dx); Crohn's disease of small intestine with other complication (HCC); Less than 8 weeks gestation of ; Obesity in , antepartum; History of pre-eclampsia in prior , currently in first trimester; History of gestational diabetes in prior , currently ; History of loop electrosurgical excision [...] any clubs o r organizations such as anabaptism groups, unions, fraternal or athletic groups, or [...] a skilled nursing (including now)? No 05/31/2021 Deshler Depression Scale Answer Date Recorded Deshler Depression Scale Total 2 07/10/2021 The thought of harming myself has occurred to me . Never 07/10/2021 Comments Yes Sex and Gender Information Value Date Recorded Sex Assigned at Not on file Legal Sex Female 7:54 PM [employer] Gender Identity Not on file Sexual Orientation Not on file documented as of this encounter Last Filed Vital Signs Vital Sign Reading Time Taken Comments Blood Pressure 116/77 10/04/2022 9:22 AM CDT Pulse 72 10/04/2022 9:22 AM CDT Temperature - - Respiratory Rate - - Oxygen Saturation 98% 10/04/2022 9:22 AM CDT Inhaled Oxygen Concentration - - Weight 108 kg (238 lb) 10/04/2022 9:22 AM CDT Height 157.5 cm (5' 2 ) 10/04/2022 9:22 AM CDT Body Mass Index 43.53 10/04/2022 9:22 AM CDT documented in this encounter Ordered Prescriptions Prescription Sig Dispense Quantity Refills Last Filled Start Date End Date prochlorperazine (COMPAZINE) 10 mg tablet Take 1 tablet (10 mg total) by mouth every 8 (eight) hours as needed for nausea or vomiting 30 tablet 3 10/04/2022 3 doxylamine (UNISOM) 25 mg tablet Take 1 tablet (25 mg total) by mouth nightly as needed for sleep 30 tablet 3 10/04/2022 3 pyridoxine (vitamin B-6) 25 mg tablet Take 1 tablet (25 mg total) by mouth 3 (three) times a day 90 tablet 3 10/04/2022 3 documented in this encounter Progress Notes * Katie Kendall MD - 10/04/2022 9:30 AM CDT Maternal Medicine Initial Visit Liliana Mancilla is a 32 y.o. at 7w0d who is here for her initial OB visit. [facility] Her is currently complicated by: Crohn's disease Obesity History of delivery (iatrogenic) History of LEEP History of preeclampsia with severe features History of GDM Today she reports feeling well. Denies any cramping or vaginal Past Medical History: Diagnosis Date Autoimmune disorder (HCC) Crohn's disease ([facility]/HCC) (HCC) 2019 Diabetes mellitus ([facility]) GDM Hypertension in , preeclampsia, [...] BIOPSY W/ LOOP ELECTRODE EXCISION CHOLECYSTECTOMY 2018 Current Outpatient Medications Medication Instructions acetaminophen 32 mg/mL No dose, route, or frequency recorded. doxylamine (UNISOM) 25 mg, oral, Nightly PRN vit no.124/iron/folic ( VITAMIN ORAL) oral prochlorperazine (COMPAZINE) 10 mg, oral, Every 8 hours PRN pyridoxine (VITAMIN B-6) 25 mg, oral, 3 times daily vedolizumab (ENTYVIO) 300 mg Allergies Allergen Reactions Cefdinir Swelling Clindamycin Swelling Iodine Rash Povidone-Iodine Rash And chlorahexadine Sulfa (Sulfonamide Antibiotics) Swelling Morphine Itching Social History Tobacco Use Smoking status: Former Packs/day: 0.50 Types: Cigarettes Quit date: 10/03/2020 Years since quittin.0 Smokeless tobacco: Never Substance and Sexual Activity Drug use: Never Sexual activity: Yes Partners: Male control/protection: None Alcohol Use: Not At Risk (07/04/2022) AUDIT-C Frequency of Alcohol Consumption: Never Average Number of Drinks: Not on file Frequency of Binge Drinking: Not on file OB History Para Term AB Living 2 1 1 1 SAB IAB Ectopic Multiple Live Births 0 1 # Outcome Date GA Lbr Amor/2nd Weight Sex Delivery Anes PTL Lv 2 Current 1 05/29/21 36w5d 3.33 kg (7 lb 5.5 oz) M Vag-Spont EPI Y SLIME Complications: Pre eclampsia Past Gynecologic History: Patient's last menstrual period was 08/01/2022., Menses: regular, Prior STIs: none. Her last pap smear was 2021 and was normal. Prior control methods: nothing. She has no history of infertility, ART treatment, gynecologic surgery, or breast cancer. She has no history of blood transfusions. Family History: Family History Problem Relation Age of Onset Diabetes Mother Hypertension Mother Cancer Mother's Sister Cancer Maternal Grandmother Cancer Maternal Grandfather Diabetes Maternal Grandfather Cancer Paternal Grandmother Ulcerative colitis Paternal cousin Crohn's disease Paternal cousin Specifically, she denies a family history of defects including spina bifida, congenital heartdefects, limb defects, or kidney defects. She denies a family history of genetic abnormalities including Down Syndrome, cognitive delays, or learning disabilities including autism spectrum disorders.She denies a family history of inherited disorders including cystic fibrosis, thalassemia, sickle cell disease, or muscular dystrophy. Dating: Patient's last menstrual period was 08/01/2022. > JONNATHAN 05/08/23 1st trimester ultrasound 10/04/22 > JONNATHAN 05/23/23 Review of Systems All review of systems are negative except for as per HPI Physical Exam Vitals BP 116/77 Pulse 72 Ht 157.5 cm (5' 2 ) Wt 238 lb (108 kg) LMP 08/01/2022 SpO2 98% BMI 43.53 kg/m?? General: Healthy, alert, active, cooperative, and in no distress Neck: supple, no thyromegaly, JVP within normal limits Heart: Regular rate and rhythm Lungs: clear Abdomen: soft, nontender, normal bowel sounds Extremities: warm, well-perfused without cyanosis, clubbing or edema Pelvic: cervix normal in appearance, external genitalia normal, no adnexal masses or tenderness, and no cervical motion tenderness Ultrasound: Ultrasound: 7w0d, small PEARL, FHR 131 Assessment: Ms. Liliana Mancilla is a wing 32 y.o. at 7w0d Plan: Problem List Endocrine and Metabolic History of gestational diabetes in prior , currently Overview History of GDM in G1 Plan [x] Early screening with A1C, 5.7 on 10/04/22 Gastrointestinal and Abdominal Crohn's disease of small intestine with other complication (HCC) Overview History - diagnosis: Crohn's disease, in remission since diagnosis in 2019 - current regimen: Entyvio - history of perianal involvement: no Counseling Reviewed with patient that ulcerative colitis and Crohn's disease comprise inflammatory bowel disease (IBD). Although they have different presentations with regards to the layer of involvement of theintestinal wall, anatomic location and response to surgical resection, the final common pathology is an increased inflammatory response against the tissues of the gastrointestinal tract. In general, there is an increased risk for , low weight, and being small for gestational age among infants of mothers with IBD, but no increased risk for congenital anomalies. Approximately one-third of patients with active ulcerative colitis or Crohn disease will experience a flare during , which is identical to the annual risk for flaring in non women. Active ulcerative colitis or Crohn disease at the time of conception tends to remain active, and inactive disease tends to remain inactive. IBD disease status is generally followed with history, physical exam findings, and blood test results. In selected patients with IBD, stool studies for infectious causes are needed. Flexiblesigmoidoscopy appears to be safe during , and it is usually the only endoscopic procedure needed in selected IBD patients. Abdominal CT or MRI may be used in carefully selected cases if the benefits outweigh potential risks. patients with IBD should stay on the medications that are maintaining them in remission. Stopping the medications can induce a relapse or flare of disease. Loperamide (Imodium) appears to be safe during . In contrast, there have been reports of fet al malformations in patients exposed to diphenoxylate with atropine (Lomotil) during the first trimester, and it should be avoided. Current recommendations are for delivery by section for women with active perineal disease, and possibly for others with IBD, depending on the patient's unique circumstances. Plan [x] Continue Entyvio and follow-up with Dr. Severino [] Specialized anatomy [] Serial growth ultrasounds q4 weeks starting at 24 weeks [] testing [] Mode of delivery: Relevant Orders Comprehensive metabolic panel (Completed) Hemoglobin A1c (Completed) CBC with auto differential (Completed) Hepatitis B Surface Antigen (Completed) RPR Blood (Completed) Rubella IgG antibody (Completed) Type and screen (Completed) Varicella Zoster IgG antibody Blood (Completed) Hepatitis C antibody (Completed) HIV 1/2 Antibody plus p24 Antigen Blood (Completed) US Ob Limited Gravid and Obesity in , antepartum Overview BMI: 44 Counseling Discussed with patient that obesity in is associated with increased risks. Women with obesity are at increased risks of spontaneous , stillbirth, macrosomia and congenitalanomalies. During the antepartum period they are at increased risk of cardiac dysfunction, proteinuria, sleep apnea, GDM, and preeclampsia. During labor, women with obesity are at a higher risk for delivery, failed trial of labor, endometritis, wound complications, and venous thrombosis. Discussed with patient the recommended weight gain in , and with a BMI of 30 or greater we recommend a weight gain of 11-20lb. Lastly discussed management. Would recommend early glucose screening, specialized anatomy ultrasound with serial growth assessment, and testing. Plan [x] Early A1C- 5.7 on 10/04/22 [...] high-risk , first trimester - Primary Overview SEROLOGIES NEEDED [x] Full [facility] Care; [x] Red Team Referring Provider: Trent XAVIER) [phone] [] rag & bone or Medicare Insurance [x] Dating Criteria: LMP [...] [] MOC: [] Method of feeding: [] Nurse Educator: [] PP Depression Discussed: Relevant Orders Comprehensive metabolic panel (Completed) Hemoglobin A1c (Completed) CBC with auto differential (Completed) Hepatitis B Surface Antigen (Completed) RPR Blood (Completed) Rubella IgG antibody (Completed) Type and screen (Completed) Varicella Zoster IgG antibody Blood (Completed) Hepatitis C antibody (Completed) HIV 1/2 Antibody plus p24 Antigen Blood (Completed) US Ob Limited Protein / creatinine ratio, urine, random (Completed) N. gonorrhoeae/C. trachomatis Amplification Urine (Completed) History of loop electrosurgical excision procedure (LEEP) of cervix affecting in first trimester Overview Plan [] Routine midtrimester cervical length screening History of hemorrhage, currently Overview - In G1 had vaginal delivery, EBL 3000 mL with QBL 3350 mL related to uterine atony, treated with Hemabate x2, rectal miso, TXA, freddy, Banjo, Bakri + packing, 2u PRBC. Plan - routine care - Optimize anemia -Consider T&C at time of delivery Patient will return to clinic in 4 weeks. She was seen and discussed with Dr. Reynoso who agrees with the above assessment and plan. Katie Kendall MD Cosigned by Alley Reynoso MD at 10/07/2022 6:54 PM CDT Associated attestation - Alley Reynoso MD - 10/07/2022 6:54 PM CDT I have seen and examined the patient. I agree with the findings and plan of care as documented in this note. Alley Reynoso MD MS Maternal- Medicine documented in this encounter Plan [...] IUP at 11 weeks with ongoing viability. Alley Reynoso MD IMG OB US PROCEDURES Edite d * Protein / creatinine ratio, urine, random (10/04/2022 5:23 PM CDT) Protein, ur, quant 9.8 mg/dL [facility] Comment: Interpretive Data No reference range established. Current interpretive data was last revised 2018. Creatinine Ur 172.0 mg/dL [facility] Comment: Interpretive Data No reference range established. Current interpretive data was last revised 2018. Protein/creatinin e ratio 57.0 0.0 - 180.0 mg/g CR [facility] Urine 10/04/2022 5:23 PM CDT 10/04/2022 5:51 PM CDT Result [facility] Alley Reynoso MD LAB URINE ORDERABLES Final Result [facility] [place] [address] * N. gonorrhoeae/C. trachomatis Amplification Urine (10/04/2022 12:12 PM CDT) C. trachomatis Not Detected Not Detected [facility] N. gonorrhoeae Not Detected Not Detected [facility] Comment: Interpretive Data Testing performed by the [facility]. This assay detects Chlamydia trachomatis [...] GENERAL ORDERABLES Final Result Performing Organization Address City/[facility]/[place] [address] * Type and screen (10/04/2022 10:14 AM CDT) ABO Rh B Positive [facility] Andres, indirect Negative [facility] Blood 10/04/2022 10:1 4 AM CDT 10/04/2022 11:27 AM CDT Narrative [facility] - 10/04/2022 12:46 PM CDT Has the patient had Daratumumab or Isatuximab in the past 6 months?->Unknown Result [facility] Alley Reynoso MD LAB BLOOD BANK TEST ORDERA BLES Final Result Performing Organization Address [facility] [place] [address] * HIV 1/2 Antibody plus p24 Antigen Blood (10/04/2022 10:07 AM CDT) Pathologist [facility] HIV 1/2 ab + p24 ag Nonreactive Nonreactive [facility] Comment:Nonreactive for HIV- 1 antigen and HIV-1/HIV-2 antibodies. No laboratory evidence of HIV infection. If acute HIV infection is suspected, consider testing for HIV-1 RNA. Current interpretive data was last revised on 21. Blood 10/04/2022 10:0 7 AM CDT 10/04/2022 11:25 AM CDT Alley Reynoso MD LAB MICROBIOLOGY - GENERAL ORDERABLES Final Result Performing Organization Address [facility] Co de Phone Number [facility] [address] * Hepatitis C antibody (10/04/2022 10:07 AM CDT) Hep C Ab Nonreactive Nonreactive [facility] Comment:Antibodies to HCV no t detected. Does NOT exclude the possibility of recent exposure to HCV. Current interpretive data was last revised on 21 Blood 10/04/2022 10:0 7 AM CDT 10/04/2022 11:26 AM CDT Alley Reynoso MD LAB MICROBIOLOGY - GENERAL ORDERABLES Final Result Performing Organization Address [facility] Co de Phone Number [facility] [place] [address] * Varicella Zoster IgG antibody Blood (10/04/2022 10:07 AM CDT) VZV IgG Reactive Reactive [facility] Comment:Reactive: Results torres ggest response to immunization or prior exposure to the virus. Blood 10/04/2022 10:0 7 AM CDT 10/04/2022 11:26 AM CDT Alley Reynoso MD LAB MICROBIOLOGY - GENERAL ORDERABLES Final Result Performing Organization Address [facility] Co de Phone Number [facility] [place] [address] * Rubella IgG antibody (10/04/2022 10:07 AM CDT) Rubella IgG Reactive [facility] Comment:Reactive: Results torres ggest response to immunization or prior exposure to the virus. Blood 10/04/2022 10:0 7 AM CDT 10/04/2022 11:26 AM CDT Alley Reynoso MD LAB MICROBIOLOGY - GENERAL ORDERABLES Final Result Performing Organization Address [facility] Co de Phone Number [facility] [address] * RPR Blood (10/04/2022 10:07 AM CDT) Pathologist [facility] RPR Nonreactive Nonreactive [facility] Blood 10/04/2022 10:0 7 AM CDT 10/04/2022 11:26 AM CDT Alley Reynoso MD LAB MICROBIOLOGY - GENERAL ORDERABLES Final Result Performing Organization Address [facility] Co de Phone Number [facility] [place] [address] * Hepatitis B Surface Antigen (10/04/2022 10:07 AM CDT) Pathologist [facility] HepBsAg Nonreactive Nonreactive [facility] Blood 10/04/2022 10:0 7 AM CDT 10/04/2022 11:26 AM CDT Alley Reynoso MD LAB MICROBIOLOGY - GENERAL ORDERABLES Final Result Performing Organization Address City/[facility] de Phone Number [facility] [place] [address] * (ABNORMAL) CBC with auto differential (10/04/2022 10:07 AM CDT) [facility] WBC 10.7(H) 3.8 - 9.9 K/cumm [facility] Hgb 12.0 11.9 - 15.5 g/dL [facility] Hct 37.1 35.6 - 45.5 % [facility] Plt 360 150 - 400 K/cumm [facility] MPV 10.0 9.1 - 12.3 fL [facility] RBC 4.52 3.90 - 5.20 M/cumm [facility] MCV 82.1 81.3 - 96.4 fL [facility] MCH 26.5(L) 27.1 - 33.3 pg [facility] MCHC 32.3 32.3 - 35.7 g/dL [facility] RDW CV 14.3 11.1 - 14.9 % [facility] RDW SD 42.5 35.7 - 48.1 fL [facility] NRBC abs 0.00 0.00 - 0.01 K/cumm [facility] Blood 10/04/2022 10:0 7 AM CDT 10/04/2022 11:25 AM CDT Alley Reynoso MD LAB BLOOD ORDERABLES Final Result Performing Organization Address [facility] de Phone Number [facility] [place] [address] * (ABNORMAL) Hemoglobin A1c (10/04/2022 10:07 AM CDT) Hgb A1C 5.7(H) 4.0 - 5.6 % [facility] Estimated Average Glucose 117 mg/dL [facility] Comment: The ADA recommends reporting an [...] BLOOD ORDERABLES Final Result Performing Organization Address [facility] de Phone [place] [address] * Comprehensive metabolic panel (10/04/2022 10:07 AM CDT) Sodium 138 135 - 145 mmol/L [facility] Potassium, pl 3.8 3.3 - 4.9 mmol/L [facility] Chloride 102 97 - 110 mmol/L [facility] CO2 27 22 - 32 mmol/L [facility] Anion gap 9 2 - 15 mmol/L [facility] BUN 8 6 - 25 mg/dL [facility] Creatinine 0.62 0.60 - 1.10 mg/dL [facility] Glucose 92 70 - 199 mg/dL [facility] Comment: Interpretive Data Fasting glucose [...] 2022. Calcium 9.2 8.5 - 10.3 mg/dL [facility] Bilirubin, total 0.3 0.1 - 1.2 mg/dL [facility] Protein, pl 7.9 6.5 - 8.5 g/dL [facility] Albumin 4.0 3.5 - 5.0 g/dL [facility] Alk phos 82 40 - 130 Units/L [facility] ALT 13 7 - 45 Units/L [facility] AST 12 10 - 45 Units/L [facility] Blood 10/04/2022 10:0 7 AM CDT 10/04/2022 11:25 AM CDT us Alley Reynoso MD LAB BLOOD ORDERABLES Final Result [facility] Department [place] [address] documented in this encounter Visit Diagnoses Diagnosis Supervision of high-risk , first trimester- Primary Crohn's disease of small intestine with other complication (HCC) Less than 8 weeks gestation of Obesity in , antepartum Obesity complicating , childbirth, or the puerperium, antepartum condition or complication History of pre-eclampsia in prior , currently in first trimester History of gestational diabetes in prior , currently with other poor obstetric history History of loop electrosurgical excision procedure (LEEP) of cervix affecting in first trimester History of hemorrhage, currently with other poor obstetric history Crohn's disease of small intestine with other complication (HCC) Supervision of high-risk , first trimester Crohn's disease of small intestine with other complication (HCC) Less than 8 weeks gestation of Supervision of high-risk , first trimester documented in this encounter Historical Medications * This list may reflect changes made after this encounter. Medication Sig Dispense Quantity Refills Last Filled Start D ate End Date acetaminophen 32 mg/mL 01/09/2023 added in this encounter Orders Outpatient Referral Count Last Ordered Date Fir st Ordered Date AMB REFERRAL TO [facility] 1 10/04/2022 documented in this encounter Care Teams Media Clerk Relationship Specialty Start Date End Date Judy Fishman NP [address] [address] PCP - General 07/31/18 Jessica Martínez MD [address] [id number] Consulting Physician Obstetrics and Gynecology 11/16/20 documented as of this encounter
--- OUTSIDE RECORDS SUMMARY | 2024-04-11 06:12 | XMS_ITS | Encounter Summary ---
Author Organization [facility] Address [address] [place] [address] Phone Care Team Providers Care Follow Up Specialist Name Role Phone Judy Fishman NP Primary Care Provider + Jessica Martínez MD Unavailable [phone] Reason for Visit * Reason Comments High Risk Gestation Encounter Details Date Type Department Care Team (Latest Contact Info) Description 11/29/2022 11:30 AM CDT Office Visit [facility] Maternal- Medicine [address] [facility] 7th [address] [place] [address] History of gestational diabetes in prior , currently (Primary Dx); Crohn's disease of small intestine with other complication (HCC); History of loop electrosurgical excision procedure (LEEP) of cervix affecting in first trimester; History of hemorrhage, currently ; History of pre-eclampsia in prior , currently in first trimester; Supervision of high-risk , first trimester; Obesity in , antepartum Social [...] in a prison (including now)? No 05/31/2021 [place] Depression Scale Answer Date Recorded [place] Depression Scale Total 2 07/10/2021 The thought of harming myself has occurred to me . 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 Gender Identity Not on file Sexual Orientation Not on file documented as of this encounter Last Filed Vital Signs Vital Sign Reading Time Taken Comments Blood Pressure 115/77 11/29/2022 11:29 AM CDT Pulse 71 11/29/2022 11:29 AM CDT Temperature - - Respiratory Rate - - Oxygen Saturation 98% 11/29/2022 11:29 AM CDT Inhaled Oxygen Concentration - - Weight 108.4 kg (239 lb) 11/29/2022 11:29 AM CDT Height 157.5 cm (5' 2 ) 11/29/2022 11:29 AM CDT Body Mass Index 43.71 11/29/2022 11:29 AM CDT documented in this encounter Progress Notes * Katie Kendall MD - 11/29/2022 11:30 AM CDT MFM Return Visit 11/29/2022 iLliana Mancilla is a 32 y.o. at 15w0d who is here for a return OB visit. Her is complicated by history of GDM, Crohn's disease, obesity, history of delivery, history of LEEP, history of preeclampsia Subjective: She reports felling well, denies any vaginal bleeding, contractions, or leakage of fluid. Reports positive movement. Objective: BP 115/77 Pulse 71 Ht 157.5 cm (5' 2 ) Wt 239 lb (108.4 kg) LMP 08/01/2022 SpO2 98% BMI43.71 kg/m?? General: NAD Heart: regular rate Lungs: non-labored respirations Abdomen: Soft, gravid, NT Extremities: WWP, no edema Ultrasound: FHR normal on bedside ultrasound Assessment/Plan: Liliana Mancilla is a 32 y.o. at 15w0d Problem List Endocrine and Metabolic History of gestational diabetes in prior , currently - Primary Overview History of GDM in G1 Plan [] Early screening with A1C, 5.7 on 10/04/22- for follow-up with 3hr GTT per protocol, ordered 11/29 Gastrointestinal and Abdominal Crohn's disease of small [...] weeks [] Mode of delivery: anticipate vaginal Gravid and Obesity in , antepartum Overview [...] high-risk , first trimester Overview [x] Full [facility] Care; [x] Red Team Referring Provider: Trent Severino () [phone] [] or Medicare Insurance [x] Dating Criteria: [...] Hemoglobin A1C: 5.7 [] UCx: next visit 11/29 [x] Pap: 2021, normal [x] LD ASA (if indicated) starting at 12 weeks: [] EPDS [ ]; PNBHS referral (if indicated) 2nd Tri Labs: [] Anatomy ultrasound: scheduled for 12/27 [] CBC/Ferritin/1hr gtt at 24-28wks: [] Flu Shot (Dec-Mar): [] Tdap (27-36wks): [] Rhogam at 28 wks (if Rh neg): 3rd Tri Labs: [] CBC/HIV/RPR/T&S: [] GBS: [] GC/CT (if indicated): [] testing: Counseling [] MOD: [] Place of delivery: [] Last clinic visit SVE: [] IOL start agent: [] Epidural: [] Consents signed: [] MOC: [] Method of feeding: [] Goods Layer: [] PP Depression Discussed: Relevant Orders Urine culture Urine, clean voided History of loop electrosurgical excision procedure (LEEP) [...] Patient was seen and discussed with Dr. Hunter who agree's with the above documented assessment and plan. Katie Kendall MD Cosigned by Jane Hunter MD at 11/29/2022 12:27 PM CDT Associated attestation - Jane Hunter MD - 11/29/2022 12:27 PM CDT MFM Attending Attestation I have seen and examined the patient, Liliana Mancilla, on 11/29/2022 and I am in agreement with the plan as documented in the resident/fellow/MAYNOR's note. Jane Hunter MD 11/29/2022 documented in this encounter Plan of Treatment Not on file documented as of this encounter Visit Diagnoses Diagnosis History of gestational diabetes in prior , currently - Primary with other poor obstetric history Crohn's disease of small intestine with other complication (HCC) History of loop electrosurgical excision procedure (LEEP) of cervix affecting in first trimester History of hemorrhage, currently with other poor obstetric history History of pre-eclampsia in prior , currently in first trimester Supervision of high-risk , first trimester Obesity in , antepartum Obesity complicating , childbirth, or the puerperium, antepartum condition or complication documented in this encounter Care Teams Follow Up Specialist Relationship Specialty Start Date End Date Judy Fishman NP [address] [address] PCP - General 07/31/18 Jessica Martínez MD [address] [address] Consulting Physician Obstetrics and Gynecology 11/16/20 documented as of this encounter
--- OUTSIDE RECORDS SUMMARY | 2024-04-11 06:13 | XMS_ITS | Encounter Summary ---
Author Organization [facility] Address [address] [place] [address] Phone Care Team Providers Care Technical Support Specialist Name Role Phone Judy Fishman NP Primary Care Provider + Jessica Martínez MD Unavailable [phone] Encounter Details Date Type Department Care Team (Late st Contact Info) Description 06/13/2022 3:30 PM SENIOR PHYSICIAN Office Visit [facility] Gastroenterology [address] [facility] 12th [place] [address] [place] [address] Lizz Clark NP [address] [place] [address] High risk medications (not anticoagulants) long-term use [...] place to sleep or slept in a correction (including now)? No 05/31/2021 [place] Depression Scale Answer Date Recorded [place] Depression Scale Total 2 07/10/2021 The thought of harming myself has occurred to me . Never 07/10/2021 Comments Unknown Sex and Gender Information Value Date Recorded Sex Assigned at Not on file Legal Sex Female 7:54 PM SENIOR PHYSICIAN Gender Identity Not on file Sexual Orientation Not on file documented as of this encounter Last Filed Vital Signs Vital Sign Reading Time Taken Comments Blood Pressure 122/79 06/13/2022 3:17 PM SENIOR PHYSICIAN Pulse 97 06/13/2022 3:17 PM SENIOR PHYSICIAN Temperature 36.8 ??C (98.2 ??F) 06/13/2022 3:17 PM CS T Respiratory Rate - - Oxygen Saturation - - Inhaled Oxygen Concentration - - Weight 110.8 kg (244 lb 3.2 oz) 06/13/2022 3:17 PM SENIOR PHYSICIAN Height 157.5 cm (5' 2 ) 06/13/2022 3:17 PM SENIOR PHYSICIAN Body Mass Index 44.66 06/13/2022 3:17 PM SENIOR PHYSICIAN documented in this encounter Patient Instructions * Patient Instructions* Lizz Clark NP - 06/13/2022 3:30 PM SENIOR PHYSICIAN Follow up 6 months Will call to set up colonoscopy OR PHYSICIAN OR PHYSICIAN documented in this encounter Progress Notes * Lizz Clark NP - 06/13/2022 3:30 PM CST Subjective NAME: Liliana Mancilla : 1990 DATE: 06/13/22 Referred here Primary Care Physician: Judy Fishman NP Consult requested by: Judy Fishman, * Chief Complaint: Crohn's disease HPI Liliana Mancilla, is a 31 y.o.female who presents with a past medical history of at least ileal Crohn's disease who presents today for follow-up on entyvio every 4 weeks. Ileal crohn's disease diagnosed in July 2018 [...] MRE in 2019 no active inflammation seen. She feels like she is doing fairly well. Had a bit of a gap at the beginning of the year due to insurance issues of about 4-6 weeks. Infusions now back on track at regular interval. Having 3-4 stoolsdaily. Some occasional lower abdominal cramping prior to defecation. Denies any hematochezia. Some occasional nausea. Denies any joint pain. Patient Active Problem List Diagnosis Date Noted Skin rash 08/31/2021 Hypertension in , preeclampsia, delivered 07/10/2021 Cardiac risk counseling 07/10/2021 care following vaginal delivery 05/29/2021 # [...] severe features: For 24 hours magnesium sulfate, complete05/30/21 @ 1563. Blood pressures well controlled on no agents. CBC/CMP wnl, UPC undetectable. RepeatCMP with calcium 7.7, TUMs ordered. # GI/: Tolerating PO. Voiding spontaneously. #Crohn's disease: Diagnosed with Crohn's disease in 2018 and has [...] # Disposition: Follow up task sent to [facility] scheduling pool. Desires discharge home today. pending bleeding amount NAFLD (nonalcoholic fatty liver disease) 06/12/2020 BMI 40.0-44.9, adult (HCC) 06/12/2020 Prediabetes 06/12/2020 History of prediabetes with most recent A1c 5.6% (02/2020). [x] early 1hr GTT- wnl [x] Gtt at 24-28 weeks-gDM High risk medications (not anticoagulants) long-term use 03/30/2019 Healthcare maintenance 02/14/2019 Crohn's disease of small intestine with other complication ([facility]) 12/01/2018 Diagnosed with Crohn's disease in 2019 and has been on Entyvio (vedolizumab) since that time without any additional flares. She gets her Entyvio injections q4 weeks. No concerns PP. Recommendations: - restart Entyvio on 06/15 and has FU with GI. Iron deficiency anemia due to chronic blood loss 11/13/2018 Chronic diarrhea 11/08/2018 Past Medical History: Diagnosis Date Autoimmune disorder (CMS/HCC) (HCC) Crohn's disease (CMS/HCC) (HCC) Diabetes mellitus (HCC) GDM Past Surgical History: Procedure Laterality Date ANKLE FRACTURE SURGERY 2008 CERVICAL BIOPSY W/ LOOP ELECTRODE EXCISION CHOLECYSTECTOMY 2018 Family History Problem Relation Age of Onset Diabetes Mother Hypertension Mother Cancer Mother's Sister Cancer Maternal Grandmother Cancer Maternal Grandfather Diabetes Maternal Grandfather Cancer Paternal Grandmother Ulcerative colitis Paternal cousin Crohn's disease Paternal cousin Social History Tobacco Use Smoking status: Former Packs/day: 0.50 Types: Cigarettes Quit date: 10/03/2020 Years since quittin.6 Smokeless tobacco: Never Substance and Sexual Activity Drug use: Never Sexual activity: Yes Partners: Male control/protection: None Alcohol Use: Not on file Allergies Allergen Reactions Cefdinir Swelling Clindamycin Swelling Povidone-Iodine Rash And chlorahexadine Sulfa (Sulfonamide Antibiotics) Swelling Unclassified Drug Swelling Morphine Itching Current Outpatient Medications Medication Sig Dispense Refill acetaminophen 500 mg capsule Take 2 capsules (1,000 mg total) by mouth every 6 (six) hours as needed for pain (Patient not taking: No sig reported) 90 tablet 1 cholecalciferol (VITAMIN D-3) 1,000 unit capsule (Patient not taking: No sig reported) docusate sodium (COLACE) 100 mg capsule Take 1 capsule (100 mg total) by mouth 2 (two) times a day as needed for constipation (Patient not taking: No sig reported) 60 capsule 0 ferrous sulfate 325 mg (65 mg of elemental iron) tablet Take 1 tablet (325 mg total) by mouth everyother day (Patient not taking: No sig reported) 30 tablet 3 hydrocortisone 2.5 % cream Apply topically 2 (two) times a day (Patient not taking: No sig reported) 30 g 1 ibuprofen (ADVIL,MOTRIN) 600 mg tablet Take 1 tablet (600 mg total) by mouth every 6 (six) hours asneeded for pain (Patient not taking: No sig reported) 90 tablet 1 norgestimate-ethinyl estradioL (ORTHO-CYCLEN) 0.25-35 mg-mcg per tablet Take 1 tablet by mouth daily (Patient not taking: Reported on 06/13/2022) 28 tablet 12 PNV with [id number]-svae-WS 27 mg iron- 1 mg tablet Take 1 tablet by mouth daily (Patient not taking: No sig reported) 90 tablet 3 vedolizumab (ENTYVIO) 300 mg recon soln 300 mg No current facility-administered medications for this visit. The new patient intake form was reviewed with the patient on @DATE@. Review of Systems: Constitutional: Negative. HENT: Negative for sore throat and trouble swallowing. Eyes: Negative. Respiratory: Negative. Cardiovascular: Negative. Gastrointestinal: See HPI Endocrine: Negative. Genitourinary: Negative. Musculoskeletal: Negative. Skin: Negative. Allergic/Immunologic: Negative. Neurological: Negative. Hematological: Negative. Psychiatric/Behavioral: Negative. Breast: Negative. Vital Signs: BP 122/79 Pulse 97 Temp 36.8 ??C (98.2 ??F) Ht 157.5 cm (5' 2 ) Wt 110.8 kg (244 lb 3.2 oz) BMI 44.66 kg/m?? Physical Exam: GENERAL: Well-appearing, in no acute distress. HEENT: [...] with normal insight, memory, affect, and orientation Labs: No visits with results within 3 Month(s) from this visit. Latest known visit with results is: Hospital Outpatient Visit on 03/01/2022 Component Date Value Ref Range Status CRP 03/01/2022 17.9 (H) <=10.0 mg/L Final Imaging Review none ASSESSMENT and PLAN: Crohn's disease Ileal CD dx 2019 on entyvio every 4 weeks. Last colon was at diagnosis in 2019. Last MRE 2019 no active inflammation seen. Doing fairly well currently -continue entyvio -continue to monitor safety labs -will plan for repeat colonoscopy at this time -follow up in 6 months High risk medications: As with all [...] & Plan notes found for this encounter. No follow-ups on file. OR PHYSICIAN documented in this encounter Plan of Treatment Not on file documented as of this encounter Visit Diagnoses Diagnosis High risk medications (not anticoagulants) long-term use- Primary Encounter for long-term (current) use of other medications Crohn's disease of small intestine with other complication (HCC) documented in this encounter Discontinued Medications Medication Sig Discontinue Reason Start Date End Da te acetaminophen 500 mg capsuleIndications:Fe ghulam,Pain Take 2 capsules (1,000 mg total) by mouth every 6 (six) hours as needed for pain 05/31/2021 06/13/2022 cholecalciferol (VITAMIN D-3) 1,000 unit capsule 06/12/2020 06/13/2022 docusate sodium (COLACE) 100 mg capsuleIndications:co nstipation,Stool Softener Take 1 capsule (100 mg total) by mouth 2 (two) times a day as needed for constipation 05/31/2021 06/13/2022 ferrous sulfate 325 mg (65 mg of elemental iron) tabletIndications:Iro n Deficiency Anemia Take 1 tablet (325 mg total) by mouth every other day 05/31/2021 06/13/2022 hydrocortisone 2.5 % cream Apply topically 2 (two) times a day 06/05/2021 06/13/2022 ibuprofen (ADVIL,MOTRIN) 600 mg tabletIndications:Loss Control Manager mps Take 1 tablet (600 mg total) by mouth every 6 (six) hours as needed for pain 05/31/2021 06/13/2022 norgestimate-ethinyl estradioL (ORTHO-CYCLEN) 0.25-35 mg-mcg per tablet Take 1 tablet by mouth daily 07/10/2021 06/13/2022 PNV with qblayxn-grlr-GM 27 mg iron- 1 mg tabletIndications:Vit toth Deficiency Prevention Take 1 tablet by mouth daily 05/31/2021 06/13/2022 documented as of this encounter Care Teams Technical Support Specialist Relationship Specialty Start Date End Date Judy Fishman NP [address] [place] [address] PCP - General 07/31/18 Jessica Martínez MD [address] [address] Consulting Physician Obstetrics and Gynecology 11/16/20 documented as of this encounter
--- OUTSIDE RECORDS SUMMARY | 2024-04-11 06:13 | XMS_ITS | Encounter Summary ---
Author Organization [facility] Address [address] [place] [address] Phone Care Team Providers Care Barrel Scraper Name Role Phone Judy Fishman NP Primary Care Provider + Jessica Martínez MD Unavailable Encounter Details Date Type Department Care Team (Late st Contact Info) Description 10/17/2021 Orders Only [facility] Gastroenterology [address] [facility] 12th [place] [address] [place] [address] Trent Severino MD [address] [place], [place] [id number] High risk medications (not anticoagulants) long-term use [...] How often do you attend [facility] or spiritism services? 1 to 4 times per year 05/31/2021 Do you belong to any clubs o r organizations such as moravian groups, unions, fraternal or athletic groups, or [...] in a detention (including now)? No 05/31/2021 [place] Depression Scale Answer Date Recorded [place] Depression Scale Total 2 07/10/2021 The thought of harming myself has occurred to me . 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 Gender Identity Not on file Sexual Orientation Not on file documented as of this encounter Progress Notes * Hermelinda Don - 10/17/2021 4:18 PM CDT Rcv'd call from pt requesting TB test order be faxed to [facility] in [place], [place] documented in this encounter Plan of Treatment Scheduled Orders Name Type Priority Associated Diagnoses Orde r Schedule TB test, quantiferon gold Lab Routine High risk medications (not anticoagulants) long-term use Crohn's disease of small intestine with other complication (HCC) Expected: 10/17/2021, Expires: 10/17/2022 documented as of this encounter Visit Diagnoses Diagnosis High risk medications (not anticoagulants) long-term use- Primary Encounter for long-term (current) use of other medications Crohn's disease of small intestine with other complication (HCC) documented in this encounter Care Teams Barrel Scraper Relationship Specialty Start Date End Date Judy Fishman NP [address] [address] PCP - General 07/31/18 Jessica Martínez MD [address] [address] Consulting Physician Obstetrics and Gynecology 11/16/20 documented as of this encounter
--- OUTSIDE RECORDS SUMMARY | 2024-04-11 06:13 | XMS_ITS | Encounter Summary ---
Author Organization [facility] Address [address] [place] [address] Phone Care Team Providers Care Underground Utility Locator Name Role Phone Judy Fishman NP Primary Care Provider + Jessica Martínez MD Unavailable [phone] Reason for Visit * Episode Based Medications (Routine) - Pending Review Specialty Diagnoses / Procedures Referred By Contac t Referred To Contact Diagnoses Crohn's disease of small intestine with other complication (HCC) Procedures MA INJECTION, VEDOLIZUMAB Trent Severino MD [address] [place] [address] Phone: tel: fax: [facility] Infusion Therapy [facility] Advanced Medicine 5th [place] [address] [place] [address] Phone: tel: fax: Referral ID Status Reason Start Date Expiration Date V isits Requested Visits Authorized [id number] Pending Review 09/26/2021 09/26/[phone] Encounter Details Date Type Department Care Team (Late st Contact Info) Description 11/09/2021 10:30 AM CDT Infusion [facility] Infusion Therapy [facility] Advanced Medicine 5th [place] [address] [place] [address] Crohn's disease of small intestine with other complication (HCC) (Primary Dx) Social History Tobacco Use Types [...] often do you attend chur ch or episcopal services? 1 to 4 times [...] health care facility (including now)? No 05/31/2021 [place] Depression Scale Answer Date Recorded [place] Depression Scale Total 2 07/10/2021 The thought of harming myself has occurred to me . Never 07/10/2021 Comments Unknown Sex and Gender Information Value Date Recorded Sex Assigned at Not on file Legal Sex Female 7:54 PM BACK TACKER Gender Identity Not on file Sexual Orientation Not on file documented as of this encounter Progress Notes * Ellie Isbell RN - 11/09/2021 10:30 AM CDT Labs drawn per MD order, Tspot repeated d/t lab not processing last sample. Pt given Entyvio infusion. Pt without s/s of adverse reaction prior to discharge. documented in this encounter Plan of Treatment Not on file documented as of this encounter Procedures Procedure Name Priority Date/Time Associated Diagnosis Comments T-SPOT.TB Routine 11/09/2021 10:18 AM CDT Crohn's disease of small intestine with other complication (HCC) documented in this encounter Results * T-SPOT.TB (11/09/2021 10:18 AM CDT) T-SPOT.TB Negative [facility] Comment: Normal Value: Negative A negative test result does not exclude the possibility of exposure to or infection with Mycobacterium tuberculosis (M. tuberculosis). ??Patients with recent exposure to TB infected individuals exhibiting a negative T-SPOT.TB result should be considered for retesting within 6 weeks or if other relevant clinical symptoms indicate. ??Results from T-SPOT.TB testing must be used in conjunction with each individual's epidemiological history, current medical status, and results of other diagnostic evaluations. ??The T-SPOT.TB test is qualitative and results are reported as positive, borderline or negative, given that the test controls perform as expected. In line with the Centers for Disease Control and Prevention's 2010 recommendation to report quantitative measurements alongside the qualitative result, the laboratory provides spot counts for informational purposes only. ??The T-SPOT.TB test should not be interpreted as a quantitative test. T-SPOT.TB Panel A Spot Count 0 [facility] T-SPOT.TB Panel B Spot Count 1 [facility] T-SPOT.TB Negative Control Passed [facility] T-SPOT.TB Positive Control Passed [facility] Comment: Test Performed at: [facility] [place], [place] ??[address] ? MARC ZAMORA MD,PHD Blood 11/09/2021 10:1 8 AM CDT 11/09/2021 12:14 PM CDT Trent Severino MD LAB MICROBIOLOGY - GENERAL OR DERABLES Final Result [facility] Department [place] [address] documented in this encounter Visit Diagnoses Diagnosis Crohn's disease of small intestine with other complication (HCC)- Primary documented in this encounter Administered Medications Inactive Administered Medications - up to 3 most recent administrations Medication Order MAR Action Action Date Dose Rate Site vedolizumab (ENTYVIO) 300 mg in sodium chloride 0.9% 250 mL IVPB 300 mg, intravenous, at 510 mL/hr, Administer over 30 Minutes, Once, On Fri11/09/21 at 1115, For 1 doseIndications:Crohn's disease of small intestine with other complication (HCC) New Bag 11/09/2021 10:45 AM CDT 300 mg 510 mL/hr documented in this encounter Orders Medications Ordered That Jonathan ht Not Have Been Administered Count Last Ordered Date First Ordered Date vedolizumab (ENTYVIO) 300 mg in sodium chloride 0.9% 250 mL IVPB 1 11/09/2021 documented in this encounter Care Teams Underground Utility Locator Relationship Specialty Start Date End Date Judy Fishman NP [address] [address] PCP - General 07/31/18 Jessica Martínez MD [address] [address] Consulting Physician Obstetrics and Gynecology 11/16/20 documented as of this encounter
--- OUTSIDE RECORDS SUMMARY | 2024-04-11 06:13 | XMS_ITS | Encounter Summary ---
Author Organization [facility] Address [address] [place] [address] Phone Care Team Providers Care Detective Supervisor Name Role Phone Judy Fishman NP Primary Care Provider + Jessica Martínez MD Unavailable [phone] Reason for Visit * Reason Onset Date Comments Med Management 05/09/2022 Encounter Details Date Type Department Care Team (Late st Contact Info) Description 05/09/2022 Telephone [facility] Gastroenterology [address] [facility] Medicine 12th [place] [address] [place] [address] Hermelinda Don Med Management Social History Tobacco Use Types Packs/Day Years [...] often do you attend chur ch or taoist services? 1 to 4 times per year 05/31/2021 Do you belong to any clubs o r organizations such as baptist groups, unions, fraternal or athletic groups, or [...] slept in a mcc (including now)? No 05/31/2021 [place] Depression Scale Answer Date Recorded [place] Depression Scale Total 2 07/10/2021 The thought of harming myself has occurred to me . Never 07/10/2021 Comments Unknown Sex and Gender Information Value Date Recorded Sex Assigned at Not on file Legal Sex Female 7:54 PM PHYSICAL SECURITY ENGINEER Gender Identity Not on file Sexual Orientation Not on file documented as of this encounter Miscellaneous Notes * Telephone Encounter - Hermelinda Don - 05/14/2022 10:57 AM PHYSICAL SECURITY ENGINEER Received a call from Rut at [facility] stating medication is ready to ship, but needing signed orders to do so. Per Rut orders were faxed to our office on 05/08. ICAL SECURITY ENGINEER * Telephone Encounter - Hermelinda Don - 05/13/2022 4:24 PM PHYSICAL SECURITY ENGINEER Pt returned my call asking what infusion center she should call? I advised [facility] is who stated they had approval and provided phone #[phone]. ICAL SECURITY ENGINEER * Telephone Encounter - Hermelinda Don - 05/13/2022 4:07 PM PHYSICAL SECURITY ENGINEER Attempted call back to pt; no answer, left msg letting pt know to contact [facility] re:PA status/updates. ICAL SECURITY ENGINEER * Telephone Encounter - Hermelinda Don - 05/13/2022 1:43 PM PHYSICAL SECURITY ENGINEER VM msg from [facility] at 08:38 this morning and called back again just now stating she rcv'd denial letter for Entyvio and her insurance company told her it was denied through pharmacy benefits and needs to be billed through medical. ICAL SECURITY ENGINEER * Telephone Encounter - Hermelinda Don - 05/09/2022 3:23 PM PHYSICAL SECURITY ENGINEER Rcv'd call from Rut Joyce at [facility] stating they got PA authorized for Entyvio and wantedto verify how soon pt needs to be scheduled? I advised brandi since her 04/26 infusion was cancelled. Rut stated they will reach out to pt to get her going. ICAL SECURITY ENGINEER documented in this encounter Plan of Treatment Not on file documented as of this encounter Visit Diagnoses Not on filedocumented in this encounter Care Teams Detective Supervisor Relationship Specialty Start Date End Date Judy Fishman NP [address] [employer] [address] PCP - General 07/31/18 Jessica Martínez MD [address] [address] Consulting Physician Obstetrics and Gynecology 11/16/20 documented as of this encounter
--- OUTSIDE RECORDS SUMMARY | 2024-04-11 06:13 | XMS_ITS | Encounter Summary ---
Author Organization [facility] Address [address] [place] [address] Phone Care Team Providers Care Lotteries Agent Name Role Phone Judy Fishman NP Primary Care Provider + Jessica Martínez MD Unavailable [phone] Encounter Details Date Type Department Care Team (Late st Contact Info) Description 12/07/2021 8:40 AM CDT Lab [facility] Endocrinology Metabolism and Lipid [address] [facility] [facility] Advanced Medicine 5th [place] [address] [place] [address] Crohn's disease of small intestine [...] often do you attend chur ch or amish services? 1 to 4 times per year [...] in a detention (including now)? No 05/31/2021 [place] Depression Scale Answer Date Recorded [place] Depression Scale Total 2 07/10/2021 The thought of harming myself has occurred to me . Never 07/10/2021 Comments Unknown Sex and Gender Information Value Date Recorded Sex Assigned at Not on file Legal Sex Female 7:54 PM METALIZING SUPERVISOR Gender Identity Not on file Sexual Orientation Not on file documented as of this encounter Plan of Treatment Not on file documented as of this encounter Visit Diagnoses Diagnosis Crohn's disease of small intestine with other complication (HCC) documented in this encounter Care Teams Lotteries Agent Relationship Specialty Start Date End Date Judy Fishman NP [address] [address] PCP - General 07/31/18 Jessica Martínez MD [address] [address] Consulting Physician Obstetrics and Gynecology 11/16/20 documented as of this encounter
--- OUTSIDE RECORDS SUMMARY | 2024-04-11 06:13 | XMS_ITS | Encounter Summary ---
Author Organization [facility] Address [address] [place] [address] Phone Care Team Providers Care Flat Lock Machine Operator Name Role Phone Judy Fishman NP Primary Care Provider + Jessica Martínez MD Unavailable [phone] Reason for Visit * Reason Onset Date Comments Abdominal Pain 05/02/2022 Encounter Details Date Type Department Care Team (Late st Contact Info) Description 05/02/[address] [facility] Gastroenterology [address] [facility] Medicine 12th [place] [address] [place] [address] Tresa Velazquez Abdominal Pain Social History Tobacco Use Types Packs/Day Years [...] any clubs o r organizations such as christian groups, unions, fraternal or athletic groups, or [...] a nursing home (including now)? No 05/31/2021 [place] Depression Scale Answer Date Recorded [place] Depression Scale Total 2 07/10/2021 The thought of harming myself has occurred to me . Never 07/10/2021 Comments Unknown Sex and Gender Information Value Date Recorded Sex Assigned at Not on file Legal Sex Female 7:54 PM YARN PREPARATION SUPERVISOR Gender Identity Not on file Sexual Orientation Not on file documented as of this encounter Ordered Prescriptions Prescription Sig Dispense Quantity Refills Last Filled Start Date End Date predniSONE (DELTASONE) 10 mg tablet Take 3 tablets (30 mg) by mouth daily for 7 days, THEN 2 tablets (20 mg) daily for 7 days, THEN 1 tablet (10 mg) daily for 10 days. Take by mouth as directed. 45 tablet 05/02/2022 3 documented in this encounter Miscellaneous Notes * Addendum Note - Tresa Velazquez - 05/02/2022 4:16 PM CSTAddended by: TRESA VELAZQUEZ on: 05/02/2022 04:16 PM Modules accepted: Orders PREPARATION SUPERVISOR * Telephone Encounter - Tresa Vleazquez - 05/02/2022 4:14 PM YARN PREPARATION SUPERVISOR Sent e-script for prednisone taper to [facility] pharmacy. Per WATER SUPPLY TECHNICIAN Lizz pt to take 30mg daily x 7 days, then 20mg daily x 7 days, then 10mg daily x 10 days. I called/spoke to the pt to let her know. Pt has no further questions at this time. PREPARATION SUPERVISOR * Telephone Encounter - Tresa Velazquez - 05/02/2022 11:52 AM YARN PREPARATION SUPERVISOR Pt called to check status of Entyvio infusions. I explained per notes from precert 04/25 insurance can not longer buy & bill so RN is working on clarification. Pt asking what she can do/take in the meantime? Now c/o she's had increased number of bowel movements over the last 2 days. Pt reports having 5-6 bowel movements per day with stabbing lower abdominal pain that comes and goes with bowel movements. No blood or mucus in stools. Denies fevers, nausea, vomiting. Pt states she has not triedtaking anything OTC for her symptoms. PREPARATION SUPERVISOR documented in this encounter Plan of Treatment Not on file documented as of this encounter Visit Diagnoses Not on filedocumented in this encounter Care Teams Flat Lock Machine Operator Relationship Specialty Start Date End Date Judy Fishman NP [address] [address] PCP - General 07/31/18 Jessica Martínez MD [address] [address] Consulting Physician Obstetrics and Gynecology 11/16/20 documented as of this encounter
--- OUTSIDE RECORDS SUMMARY | 2024-04-11 06:13 | XMS_ITS | Encounter Summary ---
Author Organization [facility] Address [address] [place] [address] Phone Care Team Providers Care Case Worker Name Role Phone Judy Fishman NP Primary Care Provider + Jessica Martínez MD Unavailable [phone] Reason for Visit * Reason Onset Date Comments Treatment Plan Update 06/19/2022 Encounter Details Date Type Department Care Team (Late st Contact Info) Description 06/19/2022 Documentation [facility] Gastroenterology [address] [facility] 12th [place] [address] [place] [address] Abiola Silverman, RU Treatment Plan [...] in a alf (including now)? No 05/31/2021 [place] Depression Scale Answer Date Recorded [place] Depression Scale Total 2 07/10/2021 The thought of harming myself has occurred to me . Never 07/10/2021 Comments Unknown Sex and Gender Information Value Date Recorded Sex Assigned at Not on file Legal Sex Female 7:54 PM QUALITY TECHNICIAN FIBERGLASS Gender Identity Not on file Sexual Orientation Not on file documented as of this encounter Progress Notes * Abiola SilvermanRU - 06/19/2022 4:28 PM CST Per [place]: - agree w/ Lizz's plan ITY TECHNICIAN FIBERGLASS documented in this encounter Plan of Treatment Not on file documented as of this encounter Visit Diagnoses Not on filedocumented in this encounter Care Teams Case Worker Relationship Specialty Start Date End Date Judy Fishman NP [email or web address] [place] [address] PCP - General 07/31/18 Jessica Martínez MD [email or web address] [place] [id number] Consulting Physician Obstetrics and Gynecology 11/16/20 documented as of this encounter
--- OUTSIDE RECORDS SUMMARY | 2024-04-11 06:13 | XMS_ITS | Encounter Summary ---
Author Organization [facility] Address [address] [place] [address] Phone Care Team Providers Care Photo Finisher Name Role Phone Judy Fishman NP Primary Care Provider + Jessica Martínez MD Unavailable [phone] Reason for Visit * Episode Based Medications (Routine) - Pending Review Specialty Diagnoses / Procedures Referred By Contac t Referred To Contact Diagnoses Crohn's disease of small intestine with other complication (HCC) Procedures MD INJECTION, VEDOLIZUMAB Trent Severino MD [address] [place] [address] Phone: tel: fax: [facility] Infusion Therapy [facility] Advanced Medicine 5th [place] [address] [place] [address] Phone: tel: fax: Referral ID Status Reason Start Date Expiration Date V isits Requested Visits Authorized [id number] Pending Review 09/26/2021 09/26/[phone] Encounter Details Date Type Department Care Team (Late st Contact Info) Description 12/07/2021 8:30 AM CDT Infusion [facility] Infusion Therapy [facility] Advanced Medicine 5th [place] [address] [place] [address] Crohn's disease of small intestine [...] often do you attend chur ch or jewish services? 1 to 4 times per year [...] in a jail (including now)? No 05/31/2021 [place] Depression Scale Answer Date Recorded [place] Depression Scale Total 2 07/10/2021 The thought of harming myself has occurred to me . Never 07/10/2021 Comments Unknown Sex and Gender Information Value Date Recorded Sex Assigned at Not on file Legal Sex Female 7:54 PM LEATHER SCRUBBER Gender Identity Not on file Sexual Orientation Not on file documented as of this encounter Progress Notes * Ernesto Covington RN - 12/07/2021 8:30 AM CDT Entyvio 300mg. Infused to LAC, no s/s of adverse reaction, VSS. Next infusions scheduled, cbc,comp,and crp drawn and sent to lab. documented in this encounter Plan of Treatment Not on file documented as of this encounter Procedures Procedure Name Priority Date/Time Associated Diagnosis Comments CBC WITH AUTO DIFFERENTIAL Routine 12/07/2021 8:22 AM CDT Crohn's disease of small intestine with other complication (HCC) COMPREHENSIVE METABOLIC PANEL Routine 12/07/2021 8:22 AM CDT Crohn's disease of small intestine with other complication (HCC) documented in this encounter Results * (ABNORMAL) CBC with auto differential (12/07/2021 8:22 AM CDT) White Blood Count 11.7(H) 3.6 - 11.2 K/uL [facility] RBC 4.51 3.63 - 4.92 M/uL [facility] Hemoglobin 11.3(L) 11.9 - 15.5 g/dL [facility] Hematocrit 35.1(L) 36.1 - 44.3 % [facility] MCV 77.8(L) 80.0 - 97.6 fL [facility] MCH 25.0(L) 26.7 - 33.7 pg [facility] MCHC 32.1(L) 32.7 - 35.5 g/dL [facility] RBC Dist Width 16.1 12.3 - 17.0 % [facility] Platelet Count 400 140 - 440 K/uL [facility] MPV 7.8 6.8 - 10.4 fL [facility] Neutrophils % 65.5 38.7 - 74.5 % [facility] Lymphocyte % 26.3 20.0 - 54.3 % [facility] Monocytes % 4.0(L) 4.3 - 13.5 % [facility] Eosinophils % 3.5 0.0 - 6.0 % [facility] Basophil % 0.7 0.0 - 3.0 % [facility] Absolute Neutrophil 7.6(H) 1.8 - 6.6 K/uL [facility] Absolute Lymphocyte 3.1 0.8 - 3.3 K/uL [facility] Absolute Monocyte 0.5 0.2 - 1.2 K/uL [facility] Absolute Eosinophil 0.4 0.0 - 0.5 K/uL [facility] Absolute Basophil 0.1 0.0 - 0.2 K/uL [facility] Nucleated RBC % 0.0 0.0 - 0.4 /100 WBC [facility] Blood specimen (specimen) 12/07/2021 8:22 AM CDT 12/07/2021 8:53 AM CDT us Trent Severino MD LAB BLOOD ORDERABLES Final Re sult [facility] * (ABNORMAL) Comprehensive metabolic panel (12/07/2021 8:22 AM CDT) Total Protein 7.4 6.1 - 8.4 g/dL [facility] Albumin 3.9 3.5 - 5.2 g/dL [facility] Calcium 9.5 8.6 - 10.3 mg/dL [facility] BUN 10 7 - 23 mg/dL [facility] Total Bilirubin 0.23 0.20 - 1.40 mg/dL [facility] Alk Phos, Total 95 35 - 129 IU/L [facility] AST (SGOT) INTERFERENCE - HEMOLYSIS 11 - 47 IU/L [facility] ALT (SGPT) 22 6 - 53 IU/L [facility] Creatinine 0.54(L) 0.60 - 1.10 mg/dL [facility] Sodium 139 135 - 145 mmol/L [facility] Potassium INTERFERENCE - HEMOLYSIS 3.3 - 5.1 mmol/L [facility] Chloride 101 95 - 107 mmol/L [facility] CO2 Content 21 21 - 29 mmol/L [facility] Glucose 103(H) 64 - 99 mg/dL [facility] Comment: NONFASTING GLUCOSE RANGE = 64-199 mg/dL FASTING GLUCOSE 64 - 99 = NORMAL FASTING GLUCOSE 100 - 125 = IMPAIRED FASTING GLUCOSE FASTING GLUCOSE >=126 = PROVISIONAL DIAGNOSIS OF DIABETES eGFR >90.0 >60.0 mL/min/1 .73 m2 [facility] Blood specimen (specimen) (Blood, Venous) 12/07/2021 8:22 AM CDT 12/07/2021 8:[address] [facility] - 12/07/2021 10:03 AM CDT Specimen Hemolyzed Trent Severino MD LAB BLOOD ORDERABLES Final Re sult [facility] documented in this encounter Visit Diagnoses Diagnosis [...] mL/hr, Administer over 30 Minutes, Once, On Fri12/07/21 at 0930, For 1 doseIndications:Crohn's disease of small intestine with other complication (HCC) New Bag 12/07/2021 8:38 AM CDT 300 mg 5 10 mL/hr documented in this encounter Orders Medications Ordered That Jonathan ht Not Have Been Administered Count Last Ordered Date First Ordered Date vedolizumab (ENTYVIO) 300 mg in sodium chloride 0.9% 250 mL IVPB 1 12/07/2021 Nursing Count Last Ordered Date First Orde red Date ONCBCN NO PREMEDS NEEDED 1 12/07/2021 documented in this encounter Care Teams Photo Finisher Relationship Specialty Start Date End Date Judy Fishman NP [address] [place] [id number] PCP - General 07/31/18 Jessica Martínez MD [address] [employer] [address] Consulting Physician Obstetrics and Gynecology 11/16/20 documented as of this encounter
--- OUTSIDE RECORDS SUMMARY | 2024-04-11 06:13 | XMS_ITS | Encounter Summary ---
Author Organization [facility] Address [address] [place] [address] Phone Care Team Providers Care Roofer Helper Name Role Phone Judy Fishman NP Primary Care Provider + Jessica Martínez MD Unavailable [phone] Reason for Visit * Reason Onset Date Comments Lab Results 10/17/2021 TB Spot Encounter Details Date Type Department Care Team (Late st Contact Info) Description 10/17/2021 Telephone [facility] Gastroenterology [address] [facility] 12th [place] [address] [place] [address] Hermelinda Don Lab Results (TB Spot) Social History Tobacco Use Types Packs/Day Years [...] How often do you attend chur or church services? 1 to 4 times [...] in a fdc (including now)? No 05/31/2021 [place] Depression Scale Answer Date Recorded [place] Depression Scale Total 2 07/10/2021 The thought of harming myself has occurred to me . Never 07/10/2021 Comments Unknown Sex and Gender Information Value Date Recorded Sex Assigned at Not on file Legal Sex Female 7:54 PM NOTCH MACHINE OPERATOR Gender Identity Not on file Sexual Orientation Not on file documented as of this encounter Miscellaneous Notes * Telephone Encounter - Hermelinda Don - 10/17/2021 3:02 PM CDT Rcv'd call from [facility] Customer Service stating pt's TB Spot test was delayed over the holiday weekend and will need new orders to be redrawn. Called pt; LMOR informing pt new lab order placed to be drawn at [facility]. documented in this encounter Plan of Treatment Not on file documented as of this encounter Visit Diagnoses Not on filedocumented in this encounter Care Teams Roofer Helper Relationship Specialty Start Date End Date Judy Fishman NP [address] [address] PCP - General 07/31/18 Jessica Martínez MD [address] [address] Consulting Physician Obstetrics and Gynecology 11/16/20 documented as of this encounter
--- OUTSIDE RECORDS SUMMARY | 2024-04-11 06:13 | XMS_ITS | Encounter Summary ---
Author Organization [facility] Address [address] [place] [address] Phone Care Team Providers Care Carbon Capture Power Plant Operator Name Role Phone Judy Fishman NP Primary Care Provider + Jessica Martínez MD Unavailable [phone] Encounter Details Date Type Department Care Team (Late st Contact Info) Description 04/26/2022 Telephone [facility] Gastroenterology [address] [facility] 12th [place] [address] [place] [address] Hermelinda Don Social History Tobacco Use Types Packs/Day Years [...] often do you attend chur ch or anabaptist services? 1 to 4 times [...] in a half-way (including now)? No 05/31/2021 [place] Depression Scale Answer Date Recorded [place] Depression Scale Total 2 07/10/2021 The thought of harming myself has occurred to me . Never 07/10/2021 Comments Unknown Sex and Gender Information Value Date Recorded Sex Assigned at Not on file Legal Sex Female 7:54 PM STAPLER COIL UNIT Gender Identity Not on file Sexual Orientation Not on file documented as of this encounter Miscellaneous Notes * Telephone Encounter - Hermelinda Don - 04/26/2022 2:37 PM STAPLER COIL UNIT Pt called back to check for infusion update. I advised RN Abiola and Emily are aware and Precert isworking on auth renewal. Someone will contact her when PA is completed. LER COIL UNIT documented in this encounter Plan of Treatment Not on file documented as of this encounter Visit Diagnoses Not on filedocumented in this encounter Care Teams Carbon Capture Power Plant Operator Relationship Specialty Start Date End Date Judy Fishman NP [address] [place] [id number] PCP - General 07/31/18 Jessica Martínez MD [address] [place] [address] Consulting Physician Obstetrics and Gynecology 11/16/20 documented as of this encounter
--- OUTSIDE RECORDS SUMMARY | 2024-04-11 06:13 | XMS_ITS | Encounter Summary ---
Author Organization [facility] Address [address] [place] [address] Phone Care Team Providers Care Vertical Lathe Operator Name Role Phone Judy Fishman NP Primary Care Provider + Jessica Martínez MD Unavailable [phone] Reason for Visit * Episode Based Medications (Routine) - Pending Review Specialty Diagnoses / Procedures Referred By Contac t Referred To Contact Diagnoses Crohn's disease of small intestine with other complication (HCC) Procedures [place] INJECTION, VEDOLIZUMAB Trent Severino MD [address] [place] [address] Phone: tel: fax: [facility] Advanced Medicine 5th [place] [address] [place] [address] Phone: tel: fax: Referral ID Status Reason Start Date Expiration Date V isits Requested Visits Authorized [id number] Pending Review 09/26/2021 09/26/2022 41 [phone] Encounter Details Date Type Department Care Team (Late st Contact Info) Description 01/04/2022 9:30 AM CDT Infusion [facility] Advanced Medicine 5th [place] [address] [place] [address] Crohn's disease of small intestine [...] often do you attend chur ch or uatsdin services? 1 to 4 times per year 05/31/2021 Do you belong to any clubs o r organizations such as gnosticism groups, unions, fraternal or athletic groups, or [...] a skilled nursing (including now)? No 05/31/2021 [place] Depression Scale Answer Date Recorded [place] Depression Scale Total 2 07/10/2021 The thought of harming myself has occurred to me . Never 07/10/2021 Comments Unknown Sex and Gender Information Value Date Recorded Sex Assigned at Not on file Legal Sex Female 7:54 PM PROJECT ARCHITECT Gender Identity Not on file Sexual Orientation Not on file documented as of this encounter Progress Notes * Ernesto Covington, RN - 01/04/2022 9:30 AM CDT Entyvio 300mg. Infused to LAC per protocol, no s/s of adverse reaction, VSS upon D/C. No labs this visit, patient declined pre-infusion medications. documented in this encounter Plan of Treatment [...] mL/hr, Administer over 30 Minutes, Once, On Fri01/04/22 at 1030, For 1 doseIndications:Crohn's disease of small intestine with other complication (HCC) New Bag 01/04/2022 9:35 AM CDT 300 mg 5 10 mL/hr documented in this encounter Orders Medications Ordered That Jonathan ht Not Have Been Administered Count Last Ordered Date First Ordered Date vedolizumab (ENTYVIO) 300 mg in sodium chloride 0.9% 250 mL IVPB 1 01/04/2022 Nursing Count Last Ordered Date First Orde red Date ONCBCN NO PREMEDS NEEDED 1 01/04/2022 documented in this encounter Care Teams Vertical Lathe Operator Relationship Specialty Start Date End Date Judy Fishman NP [address] [address] PCP - General 07/31/18 Jessica Martínez MD [address] [address] Consulting Physician Obstetrics and Gynecology 11/16/20 documented as of this encounter
--- OUTSIDE RECORDS SUMMARY | 2024-04-11 06:13 | XMS_ITS | Encounter Summary ---
Author Organization [facility] Address [address] [place] [address] Phone Care Team Providers Care Shoe Reconditioner Name Role Phone Judy Fishman NP Primary Care Provider + Jessica Martínez MD Unavailable [phone] Reason for Visit * Reason Onset Date Comments Prior Auth 10/02/2021 Entyvio - new in [facility] Encounter Details Date Type Department Care Team (Late st Contact Info) Description 10/02/2021 Telephone [facility] Gastroenterology [address] [facility] 12th [place] [address] [place] [address] Hermelinda Don Prior Auth (Entyvio - new insurance) Social History Tobacco Use Types Packs/Day Years [...] How often do you attend chur or nondenominational services? 1 to 4 times per year 05/31/2021 Do you belong to any clubs o r organizations such as holiness groups, unions, fraternal or athletic groups, or [...] in a snf (including now)? No 05/31/2021 [place] Depression Scale Answer Date Recorded [place] Depression Scale Total 2 07/10/2021 The thought of harming myself has occurred to me . Never 07/10/2021 Comments Unknown Sex and Gender Information Value Date Recorded Sex Assigned at Not on file Legal Sex Female 7:54 PM ACCESS TECH Gender Identity Not on file Sexual Orientation Not on file documented as of this encounter Miscellaneous Notes * Telephone Encounter - Hermelinda Don - 10/09/2021 2:48 PM CDT SPECIALTY DRUG INFUSION AUTHORIZATION Patient: Liliana Mancilla : 1990 Ordering Physician: Trent Severino DRUG NAME: MARKY DOSE/FREQUENCY: 300MG EVERY 4 WEEKS CPT/ADMIN CODE(S):[id number] DX CODE(S): K50.018 LOCATION: IN OFFE Primary Ins[place] Id# [id number] Group# [id number] AUTH# [id number] Effective Date: 05/15/21 Expiration date: 05/15/22 How many visits: 13 Ins Rep Name TIGRE Joyce Date Called: 08/08/2021 Call ref# [id number] Specialist Referral required? NO Referral number/visits/valid dates: NO Is this drug a covered benefit under the medical plan? YES (Rep's name EUN @ [phone] callref#[id number] ) Does the pt have 'BUY AND BILL' benefit (can this drug be supplied in the office or hospital setting, and the medical plan billed?) YES Specialty pharmacy name/phone if applicable: NO PRE-DETERMINATION REQUIRED/RECOMMENDED? NO PRE-D FAX #: NO DATE SUBMITTED:NO PRE-D OUTCOME:NO Second Ins: [facility] [place] Id# [id number] Group# [id number] AUTH# [id number] Effective Date: 09/26/21 Expiration Date: 09/26/22 Ins Rep Name VANDANA Cisneros Date Called: 10/09/21 Call ref# VANDANA Cisneros. 10/09/21 Specialist Referral required?NO Referral number/visits/valid dates: Is this drug a covered benefit under the medical plan? YES (AUGUST A.call ref#REMA Vergara. 10/09/21 11:30AM ACCESS TECH) Does the pt have 'buy and bill' benefit (can this drug be supplied in the office or hospital setting, and the medical plan billed?) YES Specialty pharmacy name/phone if applicable: N/A PRE-DETERMINATION REQUIRED/RECOMMENDED? NO PRE-D FAX #: DATE SUBMITTED: PRE-D OUTCOME: * Telephone Encounter - Hermelinda Don - 10/02/2021 10:07 AM CDT ----- Message from Liliana Mancilla sent at 10/02/2021 7:04 AM CDT ----- Regarding: Pre authorization I was just wondering if you were able to get that prior authorization for my infusions in with the new insurance? Which would be the [facility] care through my Ramírez Mancilla. Please letme know, I have a infusion October 12 Thanks documented in this encounter Plan of Treatment Not on file documented as of this encounter Visit Diagnoses Not on filedocumented in this encounter Additional Health Concerns Infection Onset Date Last Indicated Resolved Time COVID: Recovered Comment:Added based on recent COVID infection. 06/10/2021 06/11/2021 10/08/2021 3:05 AM C DT documented as of this encounter Care Teams Shoe Reconditioner Relationship Specialty Start Date End Date [place], Judy Brittani, SINGING WAITER OR WAITRESS [address] [id number] PCP - General 07/31/18 Jessica Martínez MD [address] [address] Consulting Physician Obstetrics and Gynecology 11/16/20 documented as of this encounter
--- OUTSIDE RECORDS SUMMARY | 2024-04-11 06:13 | XMS_ITS | Encounter Summary ---
Author Organization [facility] Address [address] [place] [address] Phone Care Team Providers Care Superintendent Menagerie Name Role Phone Judy Fishman NP Primary Care Provider + Jessica Martínez MD Unavailable [phone] Reason for Visit * Reason Onset Date Comments Treatment Plan Update 06/13/2022 Encounter Details Date Type Department Care Team (Late st Contact Info) Description 06/13/2022 Documentation [facility] Gastroenterology [address] [facility] 12th [place] [address] [place] [address] Abiola Silverman, RU Treatment Plan [...] often do you attend chur ch or sabianist services? 1 to 4 times per year [...] in a residential (including now)? No 05/31/2021 [place] Depression Scale Answer Date Recorded [place] Depression Scale Total 2 07/10/2021 The thought of harming myself has occurred to me . Never 07/10/2021 Comments Unknown Sex and Gender Information Value Date Recorded Sex Assigned at Not on file Legal Sex Female 7:54 PM EARTH BORING MACHINE OPERATOR Gender Identity Not on file Sexual Orientation Not on file documented as of this encounter Progress Notes * Abiola Silverman RN - 06/13/2022 3:59 PM CST Per Lizz: - continue q4 entyvio - needs colonoscopy. Message sent to Dianelys Knight to coordinate - rov 6 months H BORING MACHINE OPERATOR documented in this encounter Plan of Treatment Not on file documented as of this encounter Visit Diagnoses Not on filedocumented in this encounter Care Teams Superintendent Menagerie Relationship Specialty Start Date End Date Judy Fishman NP [address] [id number] PCP - General 07/31/18 Jessica Martínez MD [address] [address] Consulting Physician Obstetrics and Gynecology 11/16/20 documented as of this encounter
--- OUTSIDE RECORDS SUMMARY | 2024-04-11 06:13 | XMS_ITS | Encounter Summary ---
Author Organization [facility] Address [address] [place] [address] Phone Care Team Providers Care Inside Sales Professional Name Role Phone Judy Fishman NP Primary Care Provider + Jessica Martínez MD Unavailable [phone] Encounter Details Date Type Department Care Team (Late st Contact Info) Description 03/01/2022 10:10 AM HUMANITIES DEPARTMENT CHAIR Lab [facility] Endocrinology Metabolism and Lipid [address] [facility] Advanced Medicine 5th [place] [address] [place] [address] Crohn's disease of small intestine [...] often do you attend chur ch or holiness services? 1 to 4 times per year 05/31/2021 Do you belong to any clubs o r organizations such as voodoo groups, unions, fraternal or athletic groups, or [...] in a alf (including now)? No 05/31/2021 [place] Depression Scale Answer Date Recorded [place] Depression Scale Total 2 07/10/2021 The thought of harming myself has occurred to me . Never 07/10/2021 Comments Unknown Sex and Gender Information Value Date Recorded Sex Assigned at Not on file Legal Sex Female 7:54 PM HUMANITIES DEPARTMENT CHAIR Gender Identity Not on file Sexual Orientation Not on file documented as of this encounter Plan of Treatment Not on file documented as of this encounter Visit Diagnoses Diagnosis Crohn's disease of small intestine with other complication (HCC) documented in this encounter Care Teams Inside Sales Professional Relationship Specialty Start Date End Date Judy Fishman NP [address] [address] PCP - General 07/31/18 Jessica Martínez MD [address] [address] Consulting Physician Obstetrics and Gynecology 11/16/20 documented as of this encounter
--- OUTSIDE RECORDS SUMMARY | 2024-04-11 06:13 | XMS_ITS | Encounter Summary ---
Author Organization [facility] Address [address] [place] [address] Phone Care Team Providers Care Wellness Manager Name Role Phone Judy Fishman NP Primary Care Provider + Jessica Martínez MD Unavailable [phone] Reason for Visit * Reason Onset Date Comments Med Management 04/26/2022 Encounter Details Date Type Department Care Team (Late st Contact Info) Description 04/26/2022 Telephone [facility] Gastroenterology [address] [facility] Medicine 12th [place] [address] [place] [address] Hermelinda Don Med Management Social [...] any clubs o r organizations such as methodist groups, unions, fraternal or athletic groups, or [...] in a intermediate (including now)? No 05/31/2021 [place] Depression Scale Answer Date Recorded [place] Depression Scale Total 2 07/10/2021 The thought of harming myself has occurred to me . Never 07/10/2021 Comments Unknown Sex and Gender Information Value Date Recorded Sex Assigned at Not on file Legal Sex Female 7:54 PM HAIR SPRING WINDER Gender Identity Not on file Sexual Orientation Not on file documented as of this encounter Miscellaneous Notes * Telephone Encounter - Hermelinda Don - 04/26/2022 8:50 AM HAIR SPRING WINDER Pt called stating she was scheduled for Entyvio infusion this morning but is was cancelled d/t insurance. I explained likely d/t pending PA renewal for the new year. Pt would like call back with update. SPRING WINDER documented in this encounter Plan of Treatment Not on file documented as of this encounter Visit Diagnoses Not on filedocumented in this encounter Care Teams Wellness Manager Relationship Specialty Start Date End Date Judy Fishman NP [address] [address] PCP - General 07/31/18 Jessica Martínez MD [address] [address] Consulting Physician Obstetrics and Gynecology 11/16/20 documented as of this encounter
--- OUTSIDE RECORDS SUMMARY | 2024-04-11 06:13 | XMS_ITS | Encounter Summary ---
Author Organization [facility] Address [address] [place] [address] Phone Care Team Providers Care Real Estate Professor Name Role Phone Judy Fishman NP Primary Care Provider + Jessica Martínez MD Unavailable [phone] Reason for Visit * Episode Based Medications (Routine) - Pending Review Specialty Diagnoses / Procedures Referred By Contac t Referred To Contact Diagnoses Crohn's disease of small intestine with other complication (HCC) Procedures [place] INJECTION, VEDOLIZUMAB Trent Severino MD [address] [place] [address] Phone: tel: fax: [facility] Infusion Therapy [facility] Advanced Medicine 5th [place] [address] [place] [address] Phone: tel: fax: Referral ID Status Reason Start Date Expiration Date V isits Requested Visits Authorized [id number] Pending Review 09/26/2021 09/26/[phone] Encounter Details Date Type Department Care Team (Late st Contact Info) Description 02/01/2022 9:30 AM CDT Infusion [facility] Infusion Therapy [facility] Advanced Medicine 5th [place] [address] [place] [address] Crohn's disease of small intestine [...] any clubs o r organizations such as tenriism groups, unions, fraternal or athletic groups, or [...] in a intermediate (including now)? No 05/31/2021 [place] Depression Scale Answer Date Recorded [place] Depression Scale Total 2 07/10/2021 The thought of harming myself has occurred to me . Never 07/10/2021 Comments Unknown Sex and Gender Information Value Date Recorded Sex Assigned at Not on file Legal Sex Female 7:54 PM FOUNDER CHAIRMAN AND CHIEF CREATIVE OFFICER Gender Identity Not on file Sexual Orientation Not on file documented as of this encounter Last Filed Vital Signs Vital Sign Reading Time Taken Comments Blood Pressure 127/81 02/01/2022 9:32 AM CDT Pulse 97 02/01/2022 9:32 AM CDT Temperature - - Respiratory Rate 16 02/01/2022 9:32 AM CDT Oxygen Saturation - - Inhaled Oxygen Concentration - - Weight - - Height - - Body Mass Index - - documented in this encounter Progress Notes * Juan Rios, RU - 02/01/2022 9:30 AM CDT Entyvio infused per protocol. No S/S of adverse reaction. VSS. Follow up scheduled. Dominic Rios RN documented in this encounter Plan of [...] mL/hr, Administer over 30 Minutes, Once, On Fri02/01/22 at 1030, For 1 doseIndications:Crohn's disease of small intestine with other complication (HCC) New Bag 02/01/2022 9:32 AM CDT 300 mg 5 10 mL/hr documented in this encounter Orders Medications Ordered That Jonathan ht Not Have Been Administered Count Last Ordered Date First Ordered Date vedolizumab (ENTYVIO) 300 mg in sodium chloride 0.9% 250 mL IVPB 1 02/01/2022 Nursing Count Last Ordered Date First Orde red Date ONCBCN NO PREMEDS NEEDED 1 02/01/2022 VITAL SIGNS PRE-INFUSION 1 02/01/2022 documented in this encounter Care Teams Real Estate Professor Relationship Specialty Start Date End Date Judy Fishman NP [address] [address] PCP - General 07/31/18 Jessica Martínez MD [address] [address] Consulting Physician Obstetrics and Gynecology 11/16/20 documented as of this encounter
--- OUTSIDE RECORDS SUMMARY | 2024-04-11 06:13 | XMS_ITS | Encounter Summary ---
Author Organization [facility] Address [address] [place] [address] Phone Care Team Providers Care Executive Vice President And Chief Financial Officer Name Role Phone Judy Fishman NP Primary Care Provider + Jessica Martínez MD Unavailable [phone] Reason for Visit * Reason Onset Date Comments Medical Records Request 05/14/2022 Encounter Details Date Type Department Care Team (Late st Contact Info) Description 05/14/2022 Telephone [facility] Gastroenterology [address] [facility] 12th [place] [address] [place] [address] Hermelinda Don Medical Records Request [...] any clubs o r organizations such as yazidi groups, unions, fraternal or athletic groups, or [...] in a prison (including now)? No 05/31/2021 [place] Depression Scale Answer Date Recorded [place] Depression Scale Total 2 07/10/2021 The thought of harming myself has occurred to me . Never 07/10/2021 Comments Unknown Sex and Gender Information Value Date Recorded Sex Assigned at Not on file Legal Sex Female 7:54 PM SALES DONOR RECRUITMENT REPRESENTATIVE Gender Identity Not on file Sexual Orientation Not on file documented as of this encounter Miscellaneous Notes * Telephone Encounter - Hermelinda Don - 05/14/2022 11:25 AM SALES DONOR RECRUITMENT REPRESENTATIVE Rcv'd call back from [facility] at [facility] stating they need TB results faxed. I faxed 10/2021 TB results to fax #[phone] per request S DONOR RECRUITMENT REPRESENTATIVE documented in this encounter Plan of Treatment Not on file documented as of this encounter Visit Diagnoses Not on filedocumented in this encounter Care Teams Executive Vice President And Chief Financial Officer Relationship Specialty Start Date End Date Judy Fishman NP [address] [address] PCP - General 07/31/18 Jessica Martínez MD [address] [address] Consulting Physician Obstetrics and Gynecology 11/16/20 documented as of this encounter
--- OUTSIDE RECORDS SUMMARY | 2024-04-11 06:13 | XMS_ITS | Encounter Summary ---
Author Organization [facility] Address [address] [place] [address] Phone Care Team Providers Care Labor And Employment Paralegal Name Role Phone Judy Fishman NP Primary Care Provider + Jessica Martínez MD Unavailable [phone] Encounter Details Date Type Department Care Team (Late st Contact Info) Description 10/12/2021 11:40 AM CDT Lab [facility] Endocrinology Metabolism and Lipid [address] [facility] Advanced Medicine 5th [place] [address] [place] [address] Social History Tobacco Use Types Packs/Day Years [...] often do you attend chur ch or orthodoxy services? 1 to 4 times per year [...] in a intermediate (including now)? No 05/31/2021 [place] Depression Scale Answer Date Recorded [place] Depression Scale Total 2 07/10/2021 The thought of harming myself has occurred to me . Never 07/10/2021 Comments Unknown Sex and Gender Information Value Date Recorded Sex Assigned at Not on file Legal Sex Female 7:54 PM RADIO BOARD OPERATOR ANNOUNCER Gender Identity Not on file Sexual Orientation Not on file documented as of this encounter Plan of Treatment Not on file documented as of this encounter Visit Diagnoses Not on filedocumented in this encounter Care Teams Labor And Employment Paralegal Relationship Specialty Start Date End Date Judy Fishman NP [address] [address] PCP - General 07/31/18 Jessica Martínez MD [address] [address] Consulting Physician Obstetrics and Gynecology 11/16/20 documented as of this encounter
--- OUTSIDE RECORDS SUMMARY | 2024-04-11 06:13 | XMS_ITS | Encounter Summary ---
Author Organization [facility] Address [address] [place] [address] Phone Care Team Providers Care Pathological Technician Name Role Phone Judy Fishman NP Primary Care Provider + Jessica Martínez MD Unavailable [phone] Reason for Visit * Episode Based Medications (Routine) - Pending Review Specialty Diagnoses / Procedures Referred By Contac t Referred To Contact Diagnoses Crohn's disease of small intestine with other complication (HCC) Procedures [place] INJECTION, VEDOLIZUMAB Trent Severino MD [address] [place] [address] Phone: tel: fax: [facility] Infusion Therapy [facility] Advanced Medicine 5th [place] [address] [place] [address] Phone: tel: fax: Referral ID Status Reason Start Date Expiration Date V isits Requested Visits Authorized [id number] Pending Review 09/26/2021 09/26/2022 41 [phone] Encounter Details Date Type Department Care Team (Late st Contact Info) Description 03/29/2022 9:00 AM SUPERVISOR [employer] Infusion [facility] Infusion Therapy [facility] Advanced Medicine 5th [place] [address] [place] [address] Crohn's disease of small intestine [...] slept in a fci (including now)? No 05/31/2021 [place] Depression Scale Answer Date Recorded [place] Depression Scale Total 2 07/10/2021 The thought of harming myself has occurred to me . Never 07/10/2021 Comments Unknown Sex and Gender Information Value Date Recorded Sex Assigned at Not on file Legal Sex Female 7:54 PM SUPERVISOR [employer] Gender Identity Not on file Sexual Orientation Not on file documented as of this encounter Last Filed Vital Signs Vital Sign Reading Time Taken Comments Blood Pressure 149/78 03/29/2022 8:40 AM SUPERVISOR [employer] Pulse 99 03/29/2022 8:40 AM SUPERVISOR [employer] Temperature - - Respiratory Rate - - Oxygen Saturation - - Inhaled Oxygen Concentration - - Weight - - Height - - Body Mass Index - - documented in this encounter Progress Notes * Oumou Kramer - 03/29/2022 9:00 AM CST Pt presents for Entyvio infusion. No complaints. PIV started and Entyvio adm via pump per protocol.Tolerated procedure and infusion well. PIV removed and gauze pressure drsg applied. See flow sheet and MAR for details. RVISOR [employer] documented in this encounter Plan of Treatment [...] mL/hr, Administer over 30 Minutes, Once, On Fri03/29/22 at 1000, For 1 doseIndications:Crohn's disease of small intestine with other complication (HCC) New Bag 03/29/2022 8:55 AM SUPERVISOR [employer] 300 mg 5 10 mL/hr documented in this encounter Orders Medications Ordered That Jonathan ht Not Have Been Administered Count Last Ordered Date First Ordered Date vedolizumab (ENTYVIO) 300 mg in sodium chloride 0.9% 250 mL IVPB 1 03/29/2022 Nursing Count Last Ordered Date First Orde red Date ONCBCN NO PREMEDS NEEDED 1 03/29/2022 documented in this encounter Care Teams Pathological Technician Relationship Specialty Start Date End Date Judy Fishman NP [address] [address] [address] PCP - General 07/31/18 Jessica Martínez MD [address] [address] Consulting Physician Obstetrics and Gynecology 11/16/20 documented as of this encounter
--- OUTSIDE RECORDS SUMMARY | 2024-04-11 06:13 | XMS_ITS | Encounter Summary ---
Author Organization [facility] Address [address] [place] [address] Phone Care Team Providers Care Schedule Hanger Name Role Phone Judy Fishman NP Primary Care Provider + Jessica Martínez MD Unavailable Reason for Visit * Reason Onset Date Comments Med Management 05/01/2022 Encounter Details Date Type Department Care Team (Late st Contact Info) Description 05/01/2022 Telephone [facility] Gastroenterology [address] [facility] Medicine 12th [place] [address] [place] [address] Hermelidna Don Med Management Social History Tobacco Use [...] often do you attend chur ch or sikhism services? 1 to 4 times per year [...] in a fci (including now)? No 05/31/2021 [place] Depression Scale Answer Date Recorded [place] Depression Scale Total 2 07/10/2021 The thought of harming myself has occurred to me . Never 07/10/2021 Comments Unknown Sex and Gender Information Value Date Recorded Sex Assigned at Not on file Legal Sex Female 7:54 PM DIRECTOR OF CRITICAL CARE Gender Identity Not on file Sexual Orientation Not on file documented as of this encounter Miscellaneous Notes * Telephone Encounter - Abiola Silverman RN - 05/03/2022 2:21 PM CST Called pt to update her on entyvio status. Pt agreeable to go to [facility] in [place]. CTOR OF CRITICAL CARE * Telephone Encounter - Abiola Silverman RN - 05/02/2022 9:02 AM CST Email sent to precert for clarification CTOR OF CRITICAL CARE * Telephone Encounter - Hermelinda Don - 05/01/2022 5:04 PM DIRECTOR OF CRITICAL CARE MIKE msg from pt requesting call back re: infusion PA update. Pt reports insurance approved auth but she hasn't heard anything from our office to reschedule infusion. CTOR OF CRITICAL CARE documented in this encounter Plan of Treatment Not on file documented as of this encounter Visit Diagnoses Not on filedocumented in this encounter Care Teams Schedule Hanger Relationship Specialty Start Date End Date Judy Fishman NP [address] [address] PCP - General 07/31/18 Jessica Martínez MD [address] [phone] Consulting Physician Obstetrics and Gynecology 11/16/20 documented as of this encounter
--- OUTSIDE RECORDS SUMMARY | 2024-04-11 06:13 | XMS_ITS | Encounter Summary ---
Author Organization [facility] Healthcare Address [address] [place] [address] Care Team Providers Care Master Control Engineer Name Role Phone Judy Fishman GUN BARREL FINISHER Primary Care Provider + Jessica Martínez MD Unavailable [phone] Encounter Details Date Type Department Care Team (Latest Contact Info) Description 03/01/2022 8:47 AM CONTACT WORKER - 03/01/2022 11:59 PM [facility] Hospital Encounter [address] [address] Crohn's disease of small intestine with other [...] in a longterm (including now)? No 05/31/2021 [place] Depression Scale Answer Date Recorded [place] Depression Scale Total 2 07/10/2021 The thought of harming myself has occurred to me . Never 07/10/2021 Comments Unknown Sex and Gender Information Value Date Recorded Sex Assigned at Not on file Legal Sex Female 7:54 PM CONTACT WORKER Gender Identity Not on file Sexual Orientation Not on file documented as of this encounter Medications at Time of Discharge vedolizumab (ENTYVIO) 300 mg recon soln 5 mL (300 mg total) acetaminophen 500 mg capsuleIndicatio ns:Fever,Pain Take 2 capsules (1,000 mg total) by mouth every 6 (six) hours as needed for pain 90 tablet 1 05/31/2021 3 cholecalciferol (VITAMIN D-3) 1,000 unit capsule 06/12/2020 3 docusate sodium (COLACE) 100 mg capsuleIndicatio ns:constipation, Stool Softener Take 1 capsule (100 mg total) by mouth 2 (two) times a day as needed for constipation 60 capsule 05/31/2021 3 ferrous sulfate 325 mg (65 mg of elemental iron) tabletIndication s:Iron Deficiency Anemia Take 1 tablet (325 mg total) by mouth every other day 30 tablet 3 05/31/2021 3 hydrocortisone 2.5 % cream Apply topically 2 (two) times a day 30 g 1 06/05/2021 3 ibuprofen (ADVIL,MOTRIN) 600 mg tabletIndication s:Cramps Take 1 tablet (600 mg total) by mouth every 6 (six) hours as needed for pain 90 tablet 1 05/31/2021 3 norgestimate-eth inyl estradioL (ORTHO-CYCLEN) 0.25-35 mg-mcg per tablet Take 1 tablet by mouth daily 28 tablet 12 07/10/2021 3 PNV with padxrvs-oyxf-UG 27 mg iron- 1 mg tabletIndication s:Vitamin Deficiency Prevention Take 1 tablet by mouth daily 90 tablet 3 05/31/2021 3 documented as of this encounter Discharge Disposition Disposition Code Departure Means Destination Discharge to home or self care documented in this encounter Plan of Treatment Not on file documented as of this encounter Procedures Procedure Name Priority Date/Time Associated Diagnosis Comments CRP (ACUTE PHASE) Routine 03/01/2022 8:4 7 AM CONTACT WORKER Crohn's disease of small intestine with other complication (HCC) documented in this encounter Results * (ABNORMAL) CRP (acute phase) (03/01/2022 8:47 AM CONTACT WORKER) CRP 17.9(H) <=10.0 mg/L RAIZA LIVE Blood 03/01/2022 8:47 AM CONTACT WORKER 03/01/2022 10:11 AM CONTACT WORKER Trent Severino MD LAB BLOOD ORDERABLES Final Re sult [facility] Department [place] [address] documented in this encounter Visit Diagnoses Diagnosis Crohn's disease of small intestine with other complication (HCC) documented in this encounter Care Teams Master Control Engineer Relationship Specialty Start Date End Date Judy Fishman NP [address] [id number] PCP - General 07/31/18 Jessica Martínez MD [address] [id number] Consulting Physician Obstetrics and Gynecology 11/16/20 documented as of this encounter
--- OUTSIDE RECORDS SUMMARY | 2024-04-11 06:13 | XMS_ITS | Encounter Summary ---
Author Organization [facility] Address [address] [place] [address] Phone Care Team Providers Care Practice Representative Name Role Phone Judy Fishman NP Primary Care Provider + Jessica Martínez MD Unavailable [phone] Encounter Details Date Type Department Care Team (Late st Contact Info) Description 10/17/2021 Orders Only [facility] Gastroenterology [address] [facility] Advanced Medicine 12th [place] [address] [place] [address] Trent Severino MD [address] [place], [place] [id number] High risk medications (not anticoagulants) long-term use [...] week 05/31/2021 How often do you attend [facility] or jew services? 1 to 4 times [...] in a usp (including now)? No 05/31/2021 [place] Depression Scale Answer Date Recorded [place] Depression Scale Total 2 07/10/2021 The thought of harming myself has occurred to me . Never 07/10/2021 Comments Unknown Sex and Gender Information Value Date Recorded Sex Assigned at Not on file Legal Sex Female 7:54 PM GENERAL SURGEON Gender Identity Not on file Sexual Orientation Not on file documented as of this encounter Plan of Treatment Not on file documented as of this encounter Visit Diagnoses Diagnosis High risk medications (not anticoagulants) long-term use- Primary Encounter for long-term (current) use of other medications Crohn's disease of small intestine with other complication (HCC) documented in this encounter Care Teams Practice Representative Relationship Specialty Start Date End Date Judy Fishman NP [address] [place] [address] PCP - General 07/31/18 Jessica Martínez MD [address] [place] [address] Consulting Physician Obstetrics and Gynecology 11/16/20 documented as of this encounter
--- OUTSIDE RECORDS SUMMARY | 2024-04-11 06:13 | XMS_ITS | Encounter Summary ---
Author Organization [facility] Healthcare Address [address] [place] [address] Care Team Providers Care Plastic Welder Name Role Phone Judy Fishman LUMBER MATERIAL HANDLER Primary Care Provider + Jessica Martínez MD Unavailable [phone] Encounter Details Date Type Department Care Team (Latest Contact Info) Description 10/12/2021 11:25 AM CDT - 10/12/2021 11:59 PM CDT Hospital Encounter [address] [address] Crohn's disease of small intestine [...] often do you attend chur ch or mosque services? 1 to 4 times per year [...] in a mcfp (including now)? No 05/31/2021 [place] Depression Scale Answer Date Recorded [place] Depression Scale Total 2 07/10/2021 The thought of harming myself has occurred to me . Never 07/10/2021 Comments Unknown Sex and Gender Information Value Date Recorded Sex Assigned at Not on file Legal Sex Female 7:54 PM SECOND WORKER Gender Identity Not on file Sexual [...] 28 tablet 12 07/10/2021 3 PNV with [id number]-jbdl-[id number] 27 mg iron- 1 mg tabletIndication s:Vitamin Deficiency Prevention Take 1 tablet by mouth daily 90 tablet 3 05/31/2021 3 documented as of this encounter Discharge Disposition Disposition Code Departure Means Destination Discharge to home or self care documented in this encounter Plan of Treatment Not on file documented as of this encounter Procedures Procedure Name Priority Date/Time Associated Diagnosis Comments T-[email or web address].TB Routine 10/12/2021 11:25 AM CDT Crohn's disease of small intestine with other complication (HCC) documented in this encounter Results * T-SPOT.TB (10/12/2021 11:25 AM CDT) T-SPOT.TB [facility] Comment: Credited, laboratory processing error. TEST NOT PERFORMED Due to a processing error, we are unable to perform this test. The specimen was not processed in time to meet the testing schedule and has/will exceed stability by the next scheduled run. Test Performed at: [email or web address] [facility] [email or web address] [place], [place] ??[phone] ? MARC ZAMORA MD,PHD Blood 10/12/2021 11:2 5 AM CDT 10/12/2021 12:54 PM CDT us Trent Severino MD LAB MICROBIOLOGY - GENERAL OR DERABLES Edited Result - Final RAIZA [facility] Department [place] [address] documented in this encounter Visit Diagnoses Diagnosis Crohn's disease of small intestine with other complication (HCC) documented in this encounter Care Teams Plastic Welder Relationship Specialty Start Date End Date Judy Fishman NP [address] [address] PCP - General 07/31/18 Jessica Martínez MD [address] [address] Consulting Physician Obstetrics and Gynecology 11/16/20 documented as of this encounter
--- OUTSIDE RECORDS SUMMARY | 2024-04-11 06:13 | XMS_ITS | Encounter Summary ---
Author Organization [facility] Address [address] [place] [address] Phone Care Team Providers Care Systems Protection Technician Name Role Phone Judy Fishman NP Primary Care Provider + Jessica Mratínez MD Unavailable [phone] Encounter Details Date Type Department Care Team (Late st Contact Info) Description 05/03/2022 Orders Only [facility] Gastroenterology [address] [facility] Advanced Medicine 12th [place] [address] [place] [address] Trent Severino MD [address] [place], [place] [id number] Crohn's disease of small intestine with other [...] 05/31/2021 How often do you attend [facility] or taoist services? 1 to 4 [...] in a fci (including now)? No 05/31/2021 [place] Depression Scale Answer Date Recorded [place] Depression Scale Total 2 07/10/2021 The thought of harming myself has occurred to me . Never 07/10/2021 Comments Unknown Sex and Gender Information Value Date Recorded Sex Assigned at Not on file Legal Sex Female 7:54 PM CORPORATE TECHNICAL RECRUITER Gender Identity Not on file Sexual Orientation Not on file documented as of this encounter Progress Notes * Abiola Silverman, RN - 05/03/2022 2:32 PM CST Faxed q4 entyvio order and supporting docs to [facility] infusion at [phone] and [phone] ORATE TECHNICAL RECRUITER documented in this encounter Plan of Treatment Not on file documented as of this encounter Visit Diagnoses Diagnosis Crohn's disease of small intestine with other complication (HCC)- Primary documented in this encounter Orders Procedures Count Last Ordered Date First Orde red Date ONCBCN OUTPATIENT FACILITY ORDERS 1 023 documented in this encounter Care Teams Systems Protection Technician Relationship Specialty Start Date End Date Judy Fishman NP [address] [address] PCP - General 07/31/18 Jessica Martínez MD [address] [address] Consulting Physician Obstetrics and Gynecology 11/16/20 documented as of this encounter
--- OUTSIDE RECORDS SUMMARY | 2024-04-11 06:13 | XMS_ITS | Encounter Summary ---
Author Organization [facility] Healthcare Address [address] [place] [address] Care Team Providers Care Seat Mender Name Role Phone Judy Fishman REELING AND TUBING MACHINE OPERATOR Primary Care Provider + Jessica Martínez MD Unavailable [phone] Encounter Details Date Type Department Care Team (Latest Contact Info) Description 12/07/2021 8:16 AM CDT - 12/07/2021 11:59 PM CDT Hospital Encounter [address] [address] Crohn's disease of small intestine [...] often do you attend chur ch or mandaeism services? 1 to 4 times per year [...] in a half-way (including now)? No 05/31/2021 [place] Depression Scale Answer Date Recorded [place] Depression Scale Total 2 07/10/2021 The thought of harming myself has occurred to me . Never 07/10/2021 Comments Unknown Sex and Gender Information Value Date Recorded Sex Assigned at Not on file Legal Sex Female 7:54 PM UNHAIRER Gender Identity Not on file Sexual Orientation [...] 28 tablet 12 07/10/2021 3 PNV with sofiokd-fyvn-XN 27 mg iron- 1 mg tabletIndication s:Vitamin [...] Associated Diagnosis Comments CRP (ACUTE PHASE) Routine 12/07/2021 8:2 2 AM CDT Crohn's disease of small intestine with other complication (HCC) documented in this encounter Results * (ABNORMAL) CRP (acute phase) (12/07/2021 8:22 AM CDT) CRP 36.0(H) <=10.0 mg/L RAIZA LIVE Blood 12/07/2021 8:22 AM CDT 12/07/2021 10:04 AM CDT Trent Severino MD LAB BLOOD ORDERABLES Final Re sult [facility] [place] [address] documented in this encounter Visit Diagnoses Diagnosis Crohn's disease of small intestine with other complication (HCC) documented in this encounter Care Teams Seat Mender Relationship Specialty Start Date End Date Judy Fishman NP [address] [address] PCP - General 07/31/18 Jessica Martínez MD [address] [address] Consulting Physician Obstetrics and Gynecology 11/16/20 documented as of this encounter
--- OUTSIDE RECORDS SUMMARY | 2024-04-11 06:13 | XMS_ITS | Encounter Summary ---
Author Organization [facility] Address [address] [place] [address] Phone Care Team Providers Care Tool Dresser Name Role Phone Judy Fishman NP Primary Care Provider + Jessica Martínez MD Unavailable [phone] Reason for Visit * Episode Based Medications (Routine) - Pending Review Specialty Diagnoses / Procedures Referred By Contac t Referred To Contact Diagnoses Crohn's disease of small intestine with other complication (HCC) Procedures FL INJECTION, VEDOLIZUMAB Trent Severino MD [address] [place] [address] Phone: tel: fax: [facility] Infusion Therapy [facility] Advanced Medicine 5th [place] [address] [place] [address] Phone: tel: fax: Referral ID Status Reason Start Date Expiration Date V isits Requested Visits Authorized [id number] Pending Review 09/26/2021 09/26/2022 41 [phone] Encounter Details Date Type Department Care Team (Late st Contact Info) Description 03/01/2022 9:00 AM STAVE LOG CUT OFF SAW OPERATOR Infusion [facility] Infusion Therapy [facility] Advanced Medicine 5th [place] [address] [place] [address] Crohn's disease of small intestine [...] often do you attend chur ch or rastafarian services? 1 to 4 times per year [...] in a jail (including now)? No 05/31/2021 [place] Depression Scale Answer Date Recorded [place] Depression Scale Total 2 07/10/2021 The thought of harming myself has occurred to me . Never 07/10/2021 Comments Unknown Sex and Gender Information Value Date Recorded Sex Assigned at Not on file Legal Sex Female 7:54 PM STAVE LOG CUT OFF SAW OPERATOR Gender Identity Not on file Sexual Orientation Not on file documented as of this encounter Progress Notes * Ernesto Covington RN - 03/01/2022 9:00 AM CST Entyvio 300mg. Infused per protocol, no s/s of adverse reaction, VSS. Next infusion scheduled, cbc,comp, crp drawn and sent. E LOG CUT OFF SAW OPERATOR documented in this encounter Plan of Treatment Not on file documented as of this encounter Procedures Procedure Name Priority Date/Time Associated Diagnosis Comments CBC WITH AUTO DIFFERENTIAL Routine 03/01/2022 8:47 AM STAVE LOG CUT OFF SAW OPERATOR Crohn's disease of small intestine with other complication (HCC) COMPREHENSIVE METABOLIC PANEL Routine 03/01/2022 8:47 AM STAVE LOG CUT OFF SAW OPERATOR Crohn's disease of small intestine with other complication (HCC) documented in this encounter Results * (ABNORMAL) CBC with auto differential (03/01/2022 8:47 AM STAVE LOG CUT OFF SAW OPERATOR) White Blood Count 9.7 3.6 - 11.2 K/uL [facility] RBC 4.77 3.63 - 4.92 M/uL [facility] Hemoglobin 12.0 11.9 - 15.5 g/dL [facility] Hematocrit 37.5 36.1 - 44.3 % [facility] MCV 78.5(L) 80.0 - 97.6 fL [facility] MCH 25.1(L) 26.7 - 33.7 pg [facility] MCHC 32.0(L) 32.7 - 35.5 g/dL [facility] RBC Dist Width 15.5 12.3 - 17.0 % [facility] Platelet Count 387 140 - 440 K/uL [facility] MPV 8.2 6.8 - 10.4 fL [facility] Neutrophils % 64.3 38.7 - 74.5 % [facility] Lymphocyte % 28.3 20.0 - 54.3 % [facility] Monocytes % 3.6(L) 4.3 - 13.5 % [facility] Eosinophils % 3.5 0.0 - 6.0 % [facility] Basophil % 0.3 0.0 - 3.0 % [facility] Absolute Neutrophil 6.2 1.8 - 6.6 K/uL [facility] Absolute Lymphocyte 2.7 0.8 - 3.3 K/uL [facility] Absolute Monocyte 0.3 0.2 - 1.2 K/uL [facility] Absolute Eosinophil 0.3 0.0 - 0.5 K/uL [facility] Absolute Basophil 0.0 0.0 - 0.2 K/uL [facility] Nucleated RBC % 0.1 0.0 - 0.4 /100 WBC [facility] Blood 03/01/2022 8:47 AM STAVE LOG CUT OFF SAW OPERATOR 03/01/2022 10:28 AM STAVE LOG CUT OFF SAW OPERATOR us Ternt Severino MD LAB BLOOD ORDERABLES Final Re sult [facility] * (ABNORMAL) Comprehensive metabolic panel (03/01/2022 8:47 AM STAVE LOG CUT OFF SAW OPERATOR) Total Protein 7.3 6.1 - 8.4 g/dL [facility] Albumin 4.3 3.5 - 5.2 g/dL [facility] Calcium 9.0 8.6 - 10.3 mg/dL [facility] BUN 12 7 - 23 mg/dL [facility] Total Bilirubin 0.29 0.20 - 1.40 mg/dL [facility] Alk Phos, Total 98 35 - 129 IU/L [facility] AST (SGOT) 16 11 - 47 IU/L [facility] ALT (SGPT) 21 6 - 53 IU/L [facility] Creatinine 0.55(L) 0.60 - 1.10 mg/dL [facility] Sodium 141 135 - 145 mmol/L [facility] Potassium 3.7 3.3 - 5.1 mmol/L [facility] Chloride 105 95 - 107 mmol/L [facility] CO2 Content 24 21 - 29 mmol/L [facility] Glucose 106(H) 64 - 99 mg/dL [facility] Comment: NONFASTING GLUCOSE RANGE = 64-199 mg/dL FASTING GLUCOSE 64 - 99 = NORMAL FASTING GLUCOSE 100 - 125 = IMPAIRED FASTING GLUCOSE FASTING GLUCOSE >=126 = PROVISIONAL DIAGNOSIS OF DIABETES eGFR >90.0 >60.0 mL/min/1.7 3 m2 [facility] Blood (Blood, Venous) 03/01/2022 8:47 AM STAVE LOG CUT OFF SAW OPERATOR 03/01/2022 10:28 AM STAVE LOG CUT OFF SAW OPERATOR Trent Severino MD LAB BLOOD ORDERABLES Final Re sult [facility] documented in [...] mL/hr, Administer over 30 Minutes, Once, On Fri03/01/22 at 1000, For 1 doseIndications:Crohn's disease of small intestine with other complication (HCC) New Bag 03/01/2022 8:50 AM STAVE LOG CUT OFF SAW OPERATOR 300 mg 5 10 mL/hr documented in this encounter Orders Medications Ordered That Jonathan ht Not Have Been Administered Count Last Ordered Date First Ordered Date vedolizumab (ENTYVIO) 300 mg in sodium chloride 0.9% 250 mL IVPB 1 03/01/2022 Nursing Count Last Ordered Date First Orde red Date ONCBCN NO PREMEDS NEEDED 1 03/01/2022 documented in this encounter Care Teams Tool Dresser Relationship Specialty Start Date End Date Judy Fishman NP [address] [address] PCP - General 07/31/18 Jessica Martínez MD [address] [phone] Consulting Physician Obstetrics and Gynecology 11/16/20 documented as of this encounter
--- OUTSIDE RECORDS SUMMARY | 2024-04-11 06:13 | XMS_ITS | Encounter Summary ---
Author Organization [facility] Address [address] [place] [address] Phone Care Team Providers Care Fountain Server Name Role Phone Judy Fishman NP Primary Care Provider + Jessica Martínez MD Unavailable [phone] Reason for Visit * Episode Based Medications (Routine) - Pending Review Specialty Diagnoses / Procedures Referred By Contac t Referred To Contact Diagnoses Crohn's disease of small intestine with other complication (HCC) Procedures [place] INJECTION, VEDOLIZUMAB Trent Severino MD [address] [place] [address] Phone: tel: fax: [facility] Infusion Therapy [facility] Advanced Medicine 5th [place] [address] [place] [address] Phone: tel: fax: Referral ID Status Reason Start Date Expiration Date V isits Requested Visits Authorized [id number] Pending Review 09/26/2021 09/26/2022 41 [phone] Encounter Details Date Type Department Care Team (Late st Contact Info) Description 10/12/2021 11:30 AM CDT Infusion [facility] Infusion Therapy [facility] Advanced Medicine 5th [place] [address] [place] [address] Crohn's disease of small intestine [...] any clubs o r organizations such as episcopalian groups, unions, fraternal or athletic groups, or [...] in a alf (including now)? No 05/31/2021 [place] Depression Scale Answer Date Recorded [place] Depression Scale Total 2 07/10/2021 The thought of harming myself has occurred to me . Never 07/10/2021 Comments Unknown Sex and Gender Information Value Date Recorded Sex Assigned at Not on file Legal Sex Female 7:54 PM SYSTEMS INTEGRATION ANALYST Gender Identity Not on file Sexual Orientation Not on file documented as of this encounter Last Filed Vital Signs Vital Sign Reading Time Taken Comments Blood Pressure 126/84 10/12/2021 11:15 AM CDT Pulse 90 10/12/2021 11:15 AM CDT Temperature - - Respiratory Rate 16 10/12/2021 11:15 AM CDT Oxygen Saturation - - Inhaled Oxygen Concentration - - Weight - - Height - - Body Mass Index - - documented in this encounter Progress Notes * Ellie Isbell RN - 10/12/2021 11:30 AM CDT Labs drawn per MD order. Pt given Entyvio infusion. Pt without s/s of adverse reaction prior to discharge. documented in this encounter Plan of Treatment Not on file documented as of this encounter Results * T-SPOT.TB (10/12/2021 11:25 AM CDT) Pathologist [facility] T-SPOT.TB [facility] Comment: Credited, laboratory processing error. TEST NOT PERFORMED Due to a processing error, we are unable to perform this test. The specimen was not processed in time to meet the testing schedule and has/will exceed stability by the next scheduled run. Test Performed at: [employer] [employer] [address] [place] [address] ??[phone] ? MARC ZAMORA MD,PHD Blood 10/12/2021 11:2 5 AM CDT 10/12/2021 12:54 PM CDT Trent Severino MD LAB MICROBIOLOGY - GENERAL OR DERABLES Edited Result - Final RAIZA [facility] Department [place] [address] documented in this encounter Visit Diagnoses Diagnosis [...] mL/hr, Administer over 30 Minutes, Once, On Fri10/12/21 at 1230, For 1 doseIndications:Crohn's disease of small intestine with other complication (HCC) New Bag 10/12/2021 11:40 AM CDT 300 mg 510 mL/hr documented in this encounter Orders Medications Ordered That Jonathan ht Not Have Been Administered Count Last Ordered Date First Ordered Date vedolizumab (ENTYVIO) 300 mg in sodium chloride 0.9% 250 mL IVPB 1 10/12/2021 documented in this encounter Care Teams Fountain Server Relationship Specialty Start Date End Date Judy Fishman NP [address] [address] PCP - General 07/31/18 Jessica Martínez MD [address] [address] Consulting Physician Obstetrics and Gynecology 11/16/20 documented as of this encounter
--- OUTSIDE RECORDS SUMMARY | 2024-04-11 06:13 | XMS_ITS | Encounter Summary ---
Author Organization [facility] Healthcare Address [address] [place] [address] Care Team Providers Care Chief Of Hospital Medicine Name Role Phone Judy Fishman PARKING LOT SUPERVISOR Primary Care Provider + Jessica Martínez MD Unavailable [phone] Encounter Details Date Type Department Care Team (Latest Contact Info) Description 11/09/2021 10:18 AM CDT - 11/09/2021 11:59 PM CDT Hospital Encounter [address] [address] Discharge Disposition: Discharge to home or self [...] in a jail (including now)? No 05/31/2021 [place] Depression Scale Answer Date Recorded [place] Depression Scale Total 2 07/10/2021 The thought of harming myself has occurred to me . Never 07/10/2021 Comments Unknown Sex and Gender Information Value Date Recorded Sex Assigned at Not on file Legal Sex Female 7:54 PM SITE OPERATIONS MANAGER Gender Identity Not on file Sexual [...] 28 tablet 12 07/10/2021 3 PNV with [id number] 27 mg iron- 1 mg tabletIndication s:Vitamin Deficiency Prevention Take 1 tablet by mouth daily 90 tablet 3 05/31/2021 3 documented as of this encounter Discharge Disposition Disposition Code Departure Means Destination Discharge to home or self care documented in this encounter Plan of Treatment Not on file documented as of this encounter Visit Diagnoses Not on filedocumented in this encounter Care Teams Chief Of Hospital Medicine Relationship Specialty Start Date End Date Judy Fishman NP [address] [id number] PCP - General 07/31/18 Jessica Martínez MD [address] [address] Consulting Physician Obstetrics and Gynecology 11/16/20 documented as of this encounter
--- OUTSIDE RECORDS SUMMARY | 2024-04-11 06:14 | XMS_ITS | Encounter Summary ---
Author Organization [facility] Address [address] [place] [address] Phone Care Team Providers Care Asphalt Mixing Machine Operator Name Role Phone Judy Fishman NP Primary Care Provider + Jessica Martínez MD Unavailable [phone] Encounter Details Date Type Department Care Team (Late st Contact Info) Description 06/05/2021 Orders Only [facility] Maternal- Medicine [address] [facility] Health 7th Floor [address] [place] [address] Pauline Campos RN Social History Tobacco Use [...] any clubs o r organizations such as hinduism groups, unions, fraternal or athletic groups, or [...] a senior care (including now)? No 05/31/2021 Comments No Sex and Gender Information Value Date Recorded Sex Assigned at Not on file Legal Sex Female 7:54 PM OIL FIELD CASER Gender Identity Not on file Sexual Orientation Not on file documented as of this encounter Ordered Prescriptions Prescription Sig Dispense Quantity Refills Last Filled Start Date End Date hydrocortisone 2.5 % cream Apply topically 2 (two) times a day 30 g 1 06/05/2021 3 documented in this encounter Plan of Treatment Not on file documented as of this encounter Visit Diagnoses Not on filedocumented in this encounter Additional Health Concerns Infection Onset Date Last Indicated Resolved Time COVID19 05/28/2021 05/28/2021 06/10/2021 3:06 AM OIL FIELD CASER documented as of this encounter Care Teams Asphalt Mixing Machine Operator Relationship Specialty Start Date End Date Judy Fishman NP [address] [address] PCP - General 07/31/18 Jessica Martínez MD [address] [address] Consulting Physician Obstetrics and Gynecology 11/16/20 documented as of this encounter
--- OUTSIDE RECORDS SUMMARY | 2024-04-11 06:14 | XMS_ITS | Encounter Summary ---
Author Organization [facility] Address [address] [place] [address] Phone Care Team Providers Care Painter And Decorator Name Role Phone Judy Fishman NP Primary Care Provider + Jessica Martínez MD Unavailable [phone] Encounter Details Date Type Department Care Team (Late st Contact Info) Description 05/31/2021 Telephone [facility] Obstetrics and Gynecology [facility] [place] [address] Elena Soto Social History Tobacco [...] any clubs o r organizations such as jew groups, unions, fraternal or athletic groups, or [...] in a halfway (including now)? No 05/31/2021 Comments No Sex and Gender Information Value Date Recorded Sex Assigned at Not on file Legal Sex Female 7:54 PM SWITCH TECHNICIAN Gender Identity Not on file Sexual Orientation Not on file documented as of this encounter Miscellaneous Notes * Telephone Encounter - Elena Soto - 05/31/2021 9:35 AM CST ----- Message from Judy Polanco NP sent at 05/31/2021 9:31 AM SWITCH TECHNICIAN ----- Regarding: RE: I am fine with seeing her via zoom and if there are issues I will schedule her to be seen in person. Asia Nichols ----- Message ----- From: Elena Soto Sent: 05/31/2021 9:19 AM SWITCH TECHNICIAN To: Judy Poalnco NP Subject: FW: Hi Simone, This patient is concerned about her her baby, is she able to be zoom? Elena Betancourt ----- Message ----- From: Edward Zamorano MD Sent: 05/31/2021 8:45 AM SWITCH TECHNICIAN To: Isreal [facility] Scheduling Pool Subject: This patient had a hemorrhage and needs to be seen next week for follow up. Thanks! CH TECHNICIAN documented in this encounter Plan of Treatment Not on file documented as of this encounter Visit Diagnoses Not on filedocumented in this encounter Additional Health Concerns Infection Onset Date Last Indicated Resolved Time COVID19 05/28/2021 05/28/2021 06/10/2021 3:06 AM SWITCH TECHNICIAN documented as of this encounter Care Teams Painter And Decorator Relationship Specialty Start Date End Date Judy Fishman NP [address] [address] PCP - General 07/31/18 Jessica Martínez MD [address] [address] Consulting Physician Obstetrics and Gynecology 11/16/20 documented as of this encounter
--- OUTSIDE RECORDS SUMMARY | 2024-04-11 06:14 | XMS_ITS | Encounter Summary ---
Author Organization [facility] Address [address] [place] [address] Phone Care Team Providers Care Software Manager Name Role Phone Judy Fishman NP Primary Care Provider + Jessica Martínez MD Unavailable [phone] Reason for Visit * Reason Comments Return Patient Encounter Details Date Type Department Care Team (Late st Contact Info) Description 07/10/2021 9:30 AM CDT Office Visit [facility] [address] [facility] Outpatient Health 7th Floor [address] [place] [address] Bita Magdaleno MD [address] [place] [address] Hypertension in , preeclampsia, delivered (Primary Dx); Prediabetes; Cardiac risk counseling Social History Tobacco Use Types Packs/Day Years [...] week 05/31/2021 How often do you attend [facility] or rastafarian services? 1 to 4 times [...] a nursing home (including now)? No 05/31/2021 [place] Depression Scale Answer Date Recorded [place] Depression Scale Total 2 07/10/2021 The thought of harming myself has occurred to me . Never 07/10/2021 Comments No Sex and Gender Information Value Date Recorded Sex Assigned at Not on file Legal Sex Female 7:54 PM FABRIC INSPECTOR Gender Identity Not on file Sexual Orientation Not on file documented as of this encounter Last Filed Vital Signs Vital Sign Reading Time Taken Comments Blood Pressure 115/75 07/10/2021 9:02 AM CDT Pulse 80 07/10/2021 9:02 AM CDT Temperature - - Respiratory Rate - - Oxygen Saturation 98% 07/10/2021 9:02 AM CDT Inhaled Oxygen Concentration - - Weight 109.3 kg (241 lb) 07/10/2021 9:02 AM CDT Height 157.5 cm (5' 2 ) 07/10/2021 9:02 AM CDT Body Mass Index 44.08 07/10/2021 9:02 AM CDT documented in this encounter Patient Instructions * Patient Instructions* Bita Magdaleno MD - 07/10/2021 9:30 AM CDT Follow up in 6 weeks documented in this encounter Progress Notes * Bita Magdaleno MD - 07/10/2021 9:30 AM CDT [facility] Clinic Provider: Bita Magdaleno MD Patient Name: Liliana Mancilla : 1990 Date of Service: 07/10/2021 Primary TRAFFIC ANALYSIS TECHNICIAN: MFM PROBLEM LIST: 1. Preeclampsia with Severe Features 2. COVID-19 infection 05/2021 3. Crohn's Disease 4. Gestational DM 5. Pre-diabetes - A1c 5.8 06/09/20 6. Obesity 7. Vaginal delivery 05/29/21 at 36.5 (IVF conception) a. C/b hemorrhage s/p 2 units PRBCs b. c. Natural family planning for contraception Today I had the pleasure of seeing Liliana Mancilla [facility] due to her recent delivery complicated by Preeclampsia with Severe Features, gestational diabetes. She [facility] 06[facility] . This is her 6 week follow up visit. Current antihypertensive medications include: None The following changes have been made to her medication regimen her last clinic visit: none Medication Adherence: # of missed doses per week - N/A, no antihypertensive medications are prescribed Barriers to adherence include: N/A Home blood pressures have been ranging 120s/80s She has not been readmitted to the hospital since her last clinic visit. Reason for hospital readmission was: N/A Will return to work on September 17. She reports the following cardiac symptoms since her last clinic visit.: Chest pain/pressure: no Shortness of breath/HSU: no PND: no Orthopnea: no Lower extremity edema: no Cough:no Headache: no Visual changes: no She is not . She has chosen the following for contraception: natural family planning MEDICATIONS Outpatient Encounter Medications as of 07/10/2021 Medication Sig Dispense Refill ??? acetaminophen 500 mg capsule Take 2 capsules (1,000 mg total) by mouth every 6 (six) hours as needed for pain 90 tablet 1 ??? vedolizumab (ENTYVIO) 300 mg recon soln 300 mg ??? cholecalciferol (VITAMIN D-3) 1,000 unit capsule (Patient not taking: Reported on 07/10/2021) ??? docusate sodium (COLACE) 100 mg capsule Take 1 capsule (100 mg total) by mouth 2 (two) times a day as needed for constipation (Patient not taking: No sig reported) 60 capsule 0 ??? ferrous sulfate 325 mg (65 mg of elemental iron) tablet Take 1 tablet (325 mg total) by mouth every other day (Patient not taking: Reported on 07/10/2021) 30 tablet 3 ??? hydrocortisone 2.5 % cream Apply topically 2 (two) times a day (Patient not taking: No sig reported) 30 g 1 ??? ibuprofen (ADVIL,MOTRIN) 600 mg tablet Take 1 tablet (600 mg total) by mouth every 6 (six) hours as needed for pain (Patient not taking: No sig reported) 90 tablet 1 ??? PNV with [id number] 27 mg iron- 1 mg tablet Take 1 tablet by mouth daily (Patient not taking: Reported on 07/10/2021) 90 tablet 3 No facility-administered encounter medications on file as of 07/10/2021. ALLERGY Cefdinir, Clindamycin, Povidone-iodine, Sulfa (sulfonamide antibiotics), Unclassified drug, and Morphine REVIEW OF SYSTEMS: Review of systems per HPI and otherwise all other review of systems negative. Hemorrhoids - one bigger, can get irritated and bleed, not painful. Has been using steroid cream BID - helping w irritation, maybe helping with size. HAving some diarrhea, called GI doc, told her to observe. Has improved PHYSICAL EXAM: BP 115/75 Pulse 80 Ht 157.5 cm (5' 2 ) Wt 109.3 kg (241 lb) SpO2 98% BMI 44.08 kg/m?? [place] Depression Score: 2 Vital signs, weight, and intake/output reviewed. Gen: well developed, well nourished, no acute distress HEENT: moist mucus membranes, no jugular venous distension, no carotid bruits Chest: Lungs clear to auscultation bilaterally Cardiac: Regular rate and rhythm, no murmurs/gallops/rubs Abdomen: Positive bowel sounds, soft, nontender, nondistended, no hepatosplenomegaly Extremities: Warm and well-perfused, positive pulses, no cyanosis, clubbing, or edema Skin: No rashes Neurologic: nonfocal exam Psychiatric: alert and oriented DIAGNOSTIC DATA: Sodium Date Value Ref Range Status 06/15/2021 144 135 - 145 mmol/L Final Potassium, pl Date Value Ref Range Status 06/15/2021 4.4 3.3 - 4.9 mmol/L Final Creatinine Date Value Ref Range Status 06/15/2021 0.70 0.60 - 1.10 mg/dL Final 05/30/2021 0.67 0.60 - 1.10 mg/dL Final 05/29/2021 0.70 0.60 - 1.10 mg/dL Final Hgb Date Value Ref Range Status 06/15/2021 9.5 (L) 11.9 - 15.5 g/dL Final 05/30/2021 8.0 (L) 11.9 - 15.5 g/dL Final TSH Date Value Ref Range Status 07/02/2019 0.75 0.30 - 4.20 mcIUnit/mL Final Cholesterol Date Value Ref Range Status 06/09/2020 133 30 - 199 mg/dL Final Comment: Interpretive Data Ages < or = 19 years Acceptable: <170 mg/dL Borderline high: 170-199 mg/dL High: >or= 200 mg/dL Ages > or = 20 years Desirable: <200 mg/dL Borderline high: 200-239 mg/dL High: >or= 240 mg/dL Literature References: 1. Expert Panel on Integrated Guidelines for Cardiovascular Health and Risk Reduction in Children and Adolescents. Pediatrics 2011;128:S213 2. NCEP Expert Panel. Circulation 2004;110:227 Current Interpretive Data was last revised on 2017. Triglycerides Date Value Ref Range Status 06/09/2020 114 <=149 mg/dL Final Comment: Interpretive Data Ages < or = 9 years Acceptable: <75 mg/dL Borderline high: 75-99 mg/dL High: >or= 100 mg/dL Ages 10 to 20 years Acceptable: <90 mg/dL Borderline high: 90-129 mg/dL High: >or= 130 mg/dL Ages > or = 20 years Desirable: <150 mg/dL Borderline high: 150-199 mg/dL High: 200-499 mg/dL Very high: >or= 499 mg/dL Literature References: 1. Expert Panel on Integrated Guidelines for Cardiovascular Health and Risk Reduction in Children and Adolescents. Pediatrics 2011;128:S213 2. NCEP Expert Panel. Circulation 2004;110:227 Current Interpretive Data was last revised on 2017. HDL Date Value Ref Range Status 06/09/2020 33 (L) >=40 mg/dL Final Comment: Interpretive Data Ages < or = 19 years Acceptable: >45 mg/dL Borderline low: 40-45 mg/dL Low: <40 mg/dL Ages > or = 20 years Desirable: >or= 60 mg/dL Low: <40 mg/dL Literature References: 1. Expert Panel on Integrated Guidelines for Cardiovascular Health and Risk Reduction in Children and Adolescents. Pediatrics 2011;128:S213 2. NCEP Expert Panel. Circulation 2003;110:227 Current Interpretive Data was last revised on 2017. LDL, calculated Date Value Ref Range Status 06/09/2020 77 <=129 mg/dL Final Comment: Interpretive Data Ages < or = 19 years Acceptable: <110 mg/dL Borderline high: 110-129 mg/dL High: >or= 130 mg/dL Ages > or = 20 years Optimal: <100 mg/dL Near optimal: 100-129 mg/dL Borderline high: 130-159 mg/dL High: >160 mg/dL Literature References: 1. Expert Panel on Integrated Guidelines for Cardiovascular Health and Risk Reduction in Children and Adolescents. Pediatrics 2011;128:S213 2. NCEP Expert Panel. Circulation 2004;110:227 Current Interpretive Data was last revised on 2017. No results found for: NTPROBNP No components found for: HBA1C ASSESSMENT & PLAN: 1. History of Preeclampsia with Severe Features - Blood pressure today is at goal. The following medication adjustments were made: none. She was counseled to check home blood pressures daily and call with any symptoms of headache, visual changes, dyspnea, pnd, orthopnea, worsening edema, chest pain, lightheadedness/syncope, or palpitations. She was counseled to call with any blood pressure >160/100 or <100 systolic. 2. Cardiac risk counseling - She was counseled on her increased risk of future cardiovascular disease, including hypertension, coronary artery disease, heart failure, and stroke. The importance of risk factor screening and modification was discussed, including recommendations for FBG at 6 weeks and lipid screening/hgb a1c 12 weeks after delivery.Lipid panel/a1c will be drawn at her 12 week visit. We discussed the importance of lifelong annual blood pressure monitoring. We discussed the importance of maintaining healthy weight. We discussed heart healthy diet and exercise recommendations. 3. Planning - The benefits of LARC have been discussed. She has chosen the following for contraception: COCP Thank you very much for letting me participate in the care of this patient. I will plan to see her back at [facility] in follow up in 6 weeks. Please feel free to call with any questions or concerns. Sincerely, Amelia Billy MD Staff Physician I personally interviewed and examined the patient and reviewed the case with the resident/fellow on07/10/21 I agree with the assessment and plan as outlined in the note. Bita Magdaleno MD, [facility] engineered wood designer Labor Trainer of Obstetrics and Gynecology [facility] documented in this encounter Plan of Treatment Not on file documented as of this encounter Visit Diagnoses Diagnosis Hypertension in , preeclampsia, delivered- Primary Mild or unspecified pre-eclampsia, with delivery Prediabetes Other abnormal glucose Cardiac risk counseling documented in this encounter Additional Health Concerns Infection Onset Date Last Indicated Resolved Time COVID: Recovered Comment:Added based on recent COVID infection. 06/10/2021 06/11/2021 10/08/2021 3:05 AM C DT documented as of this encounter Care Teams Software Manager Relationship Specialty Start Date End Date Judy Fishman NP [address] [address] PCP - General 07/31/18 Jessica Martínez MD [address] [address] Consulting Physician Obstetrics and Gynecology 11/16/20 documented as of this encounter
--- OUTSIDE RECORDS SUMMARY | 2024-04-11 06:14 | XMS_ITS | Encounter Summary ---
Author Organization [facility] Address [address] [place] [address] Phone Care Team Providers Care Political Organizer Name Role Phone Judy Fishman NP Primary Care Provider + Jessica Martínez MD Unavailable [phone] Reason for Visit * Reason Comments Follow-up Encounter Details Date Type Department Care Team (Late st Contact Info) Description 06/12/2021 10:15 AM PILOT SAFETY INSPECTOR Office Visit [facility] Maternal- Medicine [address] [facility] Outpatient Health 7th Floor [address] [place] [address] Judy Polanco NP [phone] [place], [place] [id number] History of gestational diabetes (Primary Dx); care following vaginal delivery Social History Tobacco Use Types Packs/Day Years [...] 05/31/2021 How often do you attend [facility] or anglican services? 1 to 4 times per year [...] in a fdc (including now)? No 05/31/2021 [place] Depression Scale Answer Date Recorded [place] Depression Scale Total 2 06/12/2021 The thought of harming myself has occurred to me . Never 06/12/2021 Comments No Sex and Gender Information Value Date Recorded Sex Assigned at Not on file Legal Sex Female 7:54 PM PILOT SAFETY INSPECTOR Gender Identity Not on file Sexual Orientation Not on file documented as of this encounter Last Filed Vital Signs Vital Sign Reading Time Taken Comments Blood Pressure 116/77 06/12/2021 10:02 AM PILOT SAFETY INSPECTOR Pulse 73 06/12/2021 10:02 AM PILOT SAFETY INSPECTOR Temperature - - Respiratory Rate - - Oxygen Saturation 97% 06/12/2021 10:02 AM PILOT SAFETY INSPECTOR Inhaled Oxygen Concentration - - Weight 119.3 kg (263 lb) 06/12/2021 10:02 AM PILOT SAFETY INSPECTOR Height 157.5 cm (5' 2 ) 06/12/2021 10:02 AM PILOT SAFETY INSPECTOR Body Mass Index 48.1 06/12/2021 10:02 AM PILOT SAFETY INSPECTOR documented in this encounter Progress Notes * Judy Polanco, CART ATTENDANT - 06/12/2021 10:[address] [facility] Week 2 Visit 06/12/2021 Delivery Date: 05/29/2021 Type: Vaginal, Spontaneous [250] Delivery Details: 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 Bakri with 450cc. Vaginal packing and bakri removed 05/30. Hgb 6.8 > 9.2 post transfusion. Primary OBGYN: M Diagnosis: preE with SF Subjective: Liliana Mancilla is a 30 y.o. now being seen in the [facility] clinic following a on 05/29/2021 for preE with SF Since delivery she has been doing well. Pain is well controlled and reports small vaginal bleeding.Denies issues with bowel or bladder. Previously had diarrhea but it has since resolved. Her next infusion is scheduled for Friday. She reports a hemorrhoid that she is using cream for and is not painful anymore but she occasionally has bleeding from it. Currently formula feeding and denies issues with breasts. States her delivery was traumatic but she is coping well and baby is doing well at home. Objective: BP 116/77 Pulse 73 Ht 157.5 cm (5' 2 ) Wt 263 lb (119.3 kg) LMP 09/15/2020 (Exact Date) SpO2 97% BMI 48.10 kg/m?? General: Pleasant female in NAD CV: Breathing comfortably, regular heart rate Abdomen: soft, ND, NT Extremities: warm and well-perfused and non-tender, no edema Last pap: 01/2019: negative Screened for depression or prior mood disorders/blues: [place] Depression Scale Total: 2 Assessment and Plan: Liliana Mancilla is a 30 y.o. now here for follow up in the [facility] #preE with SF - Current regimen: no meds - BP today wnl - Continue cardiology f/u with [facility] clinic # - denies issues #crohn's - continue with entryvio and close f/u with GI - plans to discuss hemorrhoids with GI team #gdma2 - for 2 hour gtt at 6 weeks pp- discussed and ordered - counseling at next visit #covid + - diagnosed 05/28 but remains asymptomatic #Contraception: Per notes says natural family planning. Patient states she does desire future pregnancies and this was an IVF without clear reason why. She is aware that she can get and that we would not recommend for a full year. Reviewed risks of short interval including SGA and PTL. Reviewed importance of being the healthiest version of herself before a future . Discussed weight loss, good crohns control and good BP control. Voiced understanding and will consider contraception options. She is worried that BC will affect her future fertility. Education provided regarding contraception and fertility and discouraged a depo injection. Patient will consider other options. Previously on COCs and did well. [facility] precautions reviewed. DIEUDONNE Raphael T SAFETY INSPECTOR documented in this encounter Plan of Treatment Not on file documented as of this encounter Visit Diagnoses Diagnosis History of gestational diabetes- Primary Personal history of other genital system and obstetric disorders care following vaginal delivery documented in this encounter Discontinued Medications Medication Sig Discontinue Reason Start Date End Da te lancets 33 gauge misc CHECK GLUCOSE FASTING AND ONE HOUR AFTER EACH MEAL 03/27/2021 06/12/2021 pen needle, diabetic 33 gauge x 5/32 needle 1 INJECTIONS DAILY DIRECTED 04/12/2021 06/12/2021 polyethylene glycol (MIRALAX) 17 gram packetIndications:con stipation Take 1 packet (17 g total) by mouth daily as needed for constipation 05/31/2021 06/12/2021 documented as of this encounter Additional Health Concerns Infection Onset Date Last Indicated Resolved Time COVID: Recovered Comment:Added based on recent COVID infection. 06/10/2021 06/11/2021 10/08/2021 3:05 AM C DT documented as of this encounter Care Teams Political Organizer Relationship Specialty Start Date End Date Judy Fishman NP [address] [employer] [address] [place] [id number] PCP - General 07/31/18 Jessica Martínez MD [address] [employer] [address] [place] [id number] Consulting Physician Obstetrics and Gynecology 11/16/20 documented as of this encounter
--- OUTSIDE RECORDS SUMMARY | 2024-04-11 06:14 | XMS_ITS | Encounter Summary ---
Author Organization [facility] Healthcare Address [address] [place] [address] Care Team Providers Care Side Stitcher Name Role Phone Judy Fishman DIRECT MARKETING MANAGER Primary Care Provider + Jessica Martínez MD Unavailable [phone] Encounter Details Date Type Department Care Team (Latest Contact Info) Description 09/14/2021 10:40 AM CDT - 09/14/2021 11:59 PM CDT Hospital Encounter [address] [address] Crohn's disease of small intestine [...] health care facility (including now)? No 05/31/2021 [place] Depression Scale Answer Date Recorded [place] Depression Scale Total 2 07/10/2021 The thought of harming myself has occurred to me . Never 07/10/2021 Comments Unknown Sex and Gender Information Value Date Recorded Sex Assigned at Not on file Legal Sex Female 7:54 PM SPORTS TEACHER Gender Identity Not on file Sexual [...] 28 tablet 12 07/10/2021 3 PNV with [id number] 27 mg iron- 1 mg tabletIndication s:Vitamin [...] Associated Diagnosis Comments CRP (ACUTE PHASE) Routine 09/14/2021 10: 40 AM CDT Crohn's disease of small intestine with other complication (HCC) documented in this encounter Results * (ABNORMAL) CRP (acute phase) (09/14/2021 10:40 AM CDT) CRP 13.4(H) <=10.0 mg/L RAIZA LIVE Blood 09/14/2021 10:4 0 AM CDT 09/14/2021 12:51 PM CDT Trent Severino MD LAB BLOOD ORDERABLES Final Re sult [facility] Department [place] [address] documented in this encounter Visit Diagnoses Diagnosis Crohn's disease of small intestine with other complication (HCC) documented in this encounter Additional Health Concerns Infection Onset Date Last Indicated Resolved Time COVID: Recovered Comment:Added based on recent COVID infection. 06/10/2021 06/11/2021 10/08/2021 3:05 AM C DT documented as of this encounter Care Teams Side Stitcher Relationship Specialty Start Date End Date Judy Fishman NP [address] [id number] PCP - General 07/31/18 Jessica Martínez MD [address] [id number] Consulting Physician Obstetrics and Gynecology 11/16/20 documented as of this encounter
--- OUTSIDE RECORDS SUMMARY | 2024-04-11 06:14 | XMS_ITS | Encounter Summary ---
Author Organization [facility] Address [address] [place] [address] Phone Care Team Providers Care Global Marketing Intern Name Role Phone Judy Fishman NP Primary Care Provider + Jessica Martínez MD Unavailable [phone] Encounter Details Date Type Department Care Team (Late st Contact Info) Description 08/31/2021 11:30 AM CDT Office Visit [facility] Gastroenterology [address] [facility] Medicine 12th [place] [address] [place] [address] Noemí Reveles, BINU [address] [place] [address] Crohn's disease of small intestine with other complication (HCC) (Primary Dx); Iron deficiency anemia due to chronic blood loss; Prediabetes; Skin rash Social History Tobacco Use Types Packs/Day Years [...] in a [facility] (including now)? No 05/31/2021 [place] Depression Scale Answer Date Recorded [place] Depression Scale Total 2 07/10/2021 The thought of harming myself has occurred to me . 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 Gender Identity Not on file Sexual Orientation Not on file documented as of this encounter Last Filed Vital Signs Vital Sign Reading Time Taken Comments Blood Pressure 120/81 08/31/2021 11:13 AM CDT Pulse 86 08/31/2021 11:13 AM CDT Temperature 36.4 ??C (97.5 ??F) 08/31/2021 1 1:13 AM CDT Respiratory Rate - - Oxygen Saturation - - Inhaled Oxygen Concentration - - Weight 111.2 kg (245 lb 3.2 oz) 022 11:13 AM CDT Height 157.5 cm (5' 2 ) 08/31/2021 11:1 3 AM CDT Body Mass Index 44.85 08/31/2021 11:13 AM CDT documented in this encounter Progress Notes * Noemí Reveles, ASSISTANT FINANCE DIRECTOR - 08/31/2021 11:30 AM CDT Reason for visit: Follow-up for Crohn's disease after delivery HPI: Liliana Mancilla is a wing 31 y.o. female with past medical history of at least ileal Crohn'sdisease who presents today for follow-up after delivery of son. Past medical history from last note from 04/17/2021: Ileal crohn's disease diagnosed in July 2018 after presentation with weight loss and diarrhea. Shewas started on entyvio in December 2018.??She was noted to have a low entyvio level in March??2019??and she was advanced to every 6 week infusions.?? Her levels remain low so in 09/2019 she has been further advanced to every 4 weeks.??Her last colonoscopy was at time of diagnosis by Dr. Gomez at an outside hospital. She has a family history of crohn's with a paternal aunt and cousins with a history of Crohn's. MRE 03/2019??showed improvement in terminal ieal inflammation. Entyvio??level repeated 08/17/2019 and was 14.??MRE 12/2019 normal . Calprotectin level 11 09/15/2020.? She underwent in vitro fertility treatment. She was 31 weeks at the time of her visit. Continues to be on entyvio every 4 weeks. ileal crohn's disease diagnosed in July 2018 after presentation with weight loss and diarrhea. She was started on entyvio in December 2018.??She was noted to have a low entyvio level in March??2019??and she was advanced to every 6 week infusions.?Since her last office visit 09/2019 she has been further advanced to every 4 weeks.??Her last colonoscopy was at time of diagnosis by Dr. Gomez at an outside hospital. She has a family history of crohn's with a paternal aunt and cousins with a history of Crohn's. MRE 03/2019??showed improvement in terminal ieal inflammation. Entyvio??level repeated 08/17/2019 and was 14.??MRE 12/2019 normal . Calprotectin level .? She underwent in vitro fertility treatment. She is now 31 weeks . Continues to be on entyvio every 4 weeks. Her due date is June 21. She was having 1 stool daily on average. Some occasional constipation. ?? Unfortunately the patient's was complicated by preeclampsia and gestational diabetes requiring earlier delivery of her son, Simone, on 05/29/2021. The delivery was complicated by heavy blood loss requiring a blood transfusion. Patient did tested positive for COVID at the time of delivery. The patient presents today reporting that she was doing great during but is now having increased stool frequency since discharge. She is experiencing 3-4 looser stools daily with some urgency. She denies any hematochezia, mucus, or abdominal pain. She also reports increased joint pain in her knees and hips. She is not sure if this is related to recovering from . She is not taking any iron. She denies any anticipation of her Entyvio. She is changing insurance on September 12 and is scheduled for her Entyvio on September 14. She asked if her Entyvio would cause sun sensitivity as shehad a rash developed on sun- exposed areas starting about 4 weeks ago. The only new medication she has been on is control. Review of Systems: On complete review of systems, all other systems are negative. Problem List: Patient Active Problem List Diagnosis Date Noted ??? Skin rash 08/31/2021 ??? Hypertension in , preeclampsia, delivered 07/10/2021 ??? Cardiac risk counseling 07/10/2021 ??? care following vaginal delivery 05/29/2021 # ID: [...] # Disposition: Follow up task sent to [facility] scheduling pool. Desires discharge home today. pending bleeding amount ??? NAFLD (nonalcoholic fatty liver disease) 06/12/2020 ??? BMI 40.0-44.9, adult (HCC) 06/12/2020 ??? Prediabetes 06/12/2020 History of prediabetes with most recent A1c 5.6% (02/2020). [x] early 1hr GTT- wnl [x] Gtt at 24-28 weeks-gDM ??? High risk medications (not anticoagulants) long-term use 03/30/2019 ??? Healthcare maintenance 02/14/2019 ??? Crohn's disease of small intestine with other complication (HCC) 12/01/2018 Diagnosed with Crohn's disease in 2019 and has been on Entyvio (vedolizumab) since that time without any additional flares. She gets her Entyvio injections q4 weeks. No concerns PP. Recommendations: - restart Entyvio on 06/15 and has FU with GI. ??? Iron deficiency anemia due to chronic blood loss 11/13/2018 ??? Chronic diarrhea 11/08/2018 Outpatient Medications Marked as Taking for the 08/31/21 encounter (Office Visit) with Noemí Reveles NP Medication Sig Dispense Refill ??? norgestimate-ethinyl estradioL (ORTHO-CYCLEN) 0.25-35 mg-mcg per tablet Take 1 tablet by mouth daily 28 tablet 12 ??? vedolizumab (ENTYVIO) 300 mg recon soln 300 mg Physical Exam: BP 120/81 Pulse 86 Temp 36.4 ??C (97.5 ??F) Ht 157.5 cm (5' 2 ) Wt 111.2 kg (245 lb 3.2 oz) BMI 44.85 kg/m?? General: Well-appearing female in no acute cardiopulmonary distress HEENT: Sclerae are not inflamed or icteric, nose mouth obscured by mask Pulmonary: Normal breath sounds Abdomen: Soft, nondistended Extremities: No edema or deformity Skin: Patchy poorly demarcated hyperpigmented rash on forearms L>R and upper thighs Neuro: Alert oriented with no focal deficits Psych: Calm, cooperative, per Labs: Lab Results Component Value Date WBC 9.9 06/15/2021 HGB 9.5 (L) 06/15/2021 HCT 31.9 (L) 06/15/2021 LABPLAT 690 (H) 06/15/2021 CHOL 150 08/21/2021 TRIG 139 08/21/2021 HDL 54 08/21/2021 ALT 48 (H) 06/15/2021 AST 39 06/15/2021 SODIUM 144 06/15/2021 POTASSIUM 4.4 06/15/2021 CHLORIDE 106 06/15/2021 CREATININE 0.70 06/15/2021 BUNSER 14 06/15/2021 CO2 29 06/15/2021 TSH 0.75 07/02/2019 INR 1.0 05/29/2021 HGBA1C 5.8 (H) 06/09/2020 Assessment/Plan: Crohn's disease of small intestine with other complication (HCC) The patient seems to be having higher baseline stool frequency, joint pain, and looser stools sincebefore . She also continues to have a high CRP without localizing symptoms. As she has nothad a repeat colonoscopy since her index procedure which did not include regional biopsies, we would recommend that she have a repeat colonoscopy later in the summer/fall to verify mucosal healing and determine the extent disease. We would recommend that she reschedule her Entyvio infusion to be inlate August rather than September as we suspect [...] determine the extent of her disease activity Iron deficiency anemia due to chronic blood loss We will recheck the patient's iron stores with her upcoming infusion Prediabetes Patient should be back to normal since delivery. We will recheck an A1c with her next infusion Skin rash A sun related skin rashes unlikely to be associated with Entyvio particularly as she has been on this for the past 2 years. We would recommend that she follow up with Dermatology. As it is itchy, shecan try using Aveeno eczema ointment Return in about 4 months (around 01/01/2022) for Next scheduled follow up with Dr. Severino. This note was created in part with the assistance of [employer]vium voice recognition software. Service Superintendent variances may occur. documented in this encounter Miscellaneous Notes * Assessment & Plan Note - Noemí Reveles NP - 08/31/2021 5:47 PM CDTAssociated Problem(s): Skin rash A sun related skin rashes unlikely to be associated with Entyvio particularly as she has been on this for the past 2 years. We would recommend that she follow up with Dermatology. As it is itchy, shecan try using Aveeno eczema ointment * Assessment & Plan Note - Noemí Reveles NP - 08/31/2021 5:46 PM CDTAssociated Problem(s): Prediabetes (Resolved 10/30/2022) Patient should be back to normal since delivery. We will recheck an A1c with her next infusion * Assessment & Plan Note - Noemí Reveles NP - 08/31/2021 5:46 PM CDTAssociated Problem(s): Iron deficiency anemia due to chronic blood loss (Resolved 12/27/2022) We will recheck the patient's iron stores with her upcoming infusion * Assessment & Plan Note - Noemí Reveles NP - 08/31/2021 5:43 PM CDTAssociated Problem(s): Crohn's disease of small intestine with other complication (HCC) The patient seems to be having higher baseline stool frequency, joint pain, and looser stools sincebefore . She also continues to have a high CRP without localizing symptoms. As she has nothad a repeat colonoscopy since her index procedure [...] her infusion. We will continue to monitor herlabs with her infusions Plan 1. Continue monthly [...] determine the extent of her disease activity documented in this encounter Plan of Treatment Not on file documented as of this encounter Visit Diagnoses Diagnosis Crohn's disease of small intestine with other complication (HCC)- Primary Iron deficiency anemia due to chronic blood loss Iron deficiency anemia secondary to blood loss (chronic) Prediabetes Other abnormal glucose Skin rash Rash and other nonspecific skin eruption documented in this encounter Additional Health Concerns Infection Onset Date Last Indicated Resolved Time COVID: Recovered Comment:Added based on recent COVID infection. 06/10/2021 06/11/2021 10/08/2021 3:05 AM C DT documented as of this encounter Care Teams Global Marketing Intern Relationship Specialty Start Date End Date Judy Fishman NP [address] [address] PCP - General 07/31/18 Jessica Martínez MD [address] [address] Consulting Physician Obstetrics and Gynecology 11/16/20 documented as of this encounter
--- OUTSIDE RECORDS SUMMARY | 2024-04-11 06:14 | XMS_ITS | Encounter Summary ---
Author Organization [facility] Address [address] [place] [address] Phone Care Team Providers Care Mental Health Nurse Practitioner Name Role Phone Judy Fishman NP Primary Care Provider + Jessica Martínez MD Unavailable [phone] Encounter Details Date Type Department Care Team (Late st Contact Info) Description 08/31/2021 Orders Only [facility] Gastroenterology [address] [facility] Advanced Medicine 12th [place] [address] [place] [address] Trent Severino MD [address] [place] [address] Social History Tobacco Use Types Packs/Day Years [...] How often do you attend chur or cheondoism services? 1 to 4 times per year 05/31/2021 Do you belong to any clubs o r organizations such as sikhism groups, unions, fraternal or athletic groups, or [...] in a alf (including now)? No 05/31/2021 [place] Depression Scale Answer Date Recorded [place] Depression Scale Total 2 07/10/2021 The thought of harming myself has occurred to me . 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 06/10/2021 06/11/2021 10/08/2021 3:05 AM C DT documented as of this encounter Care Teams Mental Health Nurse Practitioner Relationship Specialty Start Date End Date Judy Fishman NP [address] [address] PCP - General 07/31/18 Jessica Martínez MD [address] [address] Consulting Physician Obstetrics and Gynecology 11/16/20 documented as of this encounter
--- OUTSIDE RECORDS SUMMARY | 2024-04-11 06:14 | XMS_ITS | Encounter Summary ---
Author Organization [facility] Address [address] [place] [address] Phone Care Team Providers Care Pencil Maker Name Role Phone Judy Fishman NP Primary Care Provider + Jessica Martínez MD Unavailable [phone] Reason for Visit * Episode Based Medications (Routine) - Pending Review Specialty Diagnoses / Procedures Referred By Contac t Referred To Contact Diagnoses Crohn's disease of small intestine with other complication (HCC) Procedures [place] INJECTION, VEDOLIZUMAB Trent Severino MD [address] [place] [address] Phone: tel: fax: [facility] Infusion Therapy [facility] Advanced Medicine 5th [place] [address] [place] [address] Phone: tel: fax: Referral ID Status Reason Start Date Expiration Date V isits Requested Visits Authorized [id number] Pending Review 09/26/2021 09/26/2022 41 [phone] Encounter Details Date Type Department Care Team (Late st Contact Info) Description 09/14/2021 11:00 AM CDT Infusion [facility] Infusion Therapy [address] [facility] 5th [place] [address] [place] [address] Crohn's disease of small intestine [...] any clubs o r organizations such as yazdanism groups, unions, fraternal or athletic groups, or [...] in a mcc (including now)? No 05/31/2021 [place] Depression Scale Answer Date Recorded [place] Depression Scale Total 2 07/10/2021 The thought of harming myself has occurred to me . 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 No S/S of adverse reaction. VSS. Follow up scheduled. Dominic Rios RN documented in this encounter Plan of Treatment Not on file documented as of this encounter Procedures Procedure Name Priority Date/Time Associated Diagnosis Comments IRON PROFILE W/ IBC Routine 09/14/2021 1 0:40 AM CDT Crohn's disease of small intestine with other complication (HCC) CBC WITH AUTO DIFFERENTIAL Routine 09/14/2021 10:40 AM CDT Crohn's disease of small intestine with other complication (HCC) VITAMIN D 25 HYDROXY Routine 09/14/2021 10:40 AM CDT Crohn's disease of small intestine with other complication (HCC) HEMOGLOBIN A1C Routine 09/14/2021 10:40 AM CDT Crohn's disease of small intestine with other complication (HCC) COMPREHENSIVE METABOLIC PANEL Routine 09/14/2021 10:40 AM CDT Crohn's disease of small intestine with other complication (HCC) documented in this encounter Results * (ABNORMAL) CBC with auto differential (09/14/2021 10:40 AM CDT) White Blood Count 9.8 3.6 - 11.2 K/uL [facility] RBC 4.78 3.63 - 4.92 M/uL [facility] Hemoglobin 11.9 11.9 - 15.5 g/dL [facility] Hematocrit 36.4 36.1 - 44.3 % [facility] MCV 76.1(L) 80.0 - 97.6 fL [facility] MCH 24.8(L) 26.7 - 33.7 pg [facility] MCHC 32.6(L) 32.7 - 35.5 g/dL [facility] RBC Dist Width 14.9 12.3 - 17.0 % [facility] Platelet Count 404 140 - 440 K/uL [facility] MPV 8.6 6.8 - 10.4 fL [facility] Neutrophils % 57.1 38.7 - 74.5 % [facility] Lymphocyte % 31.1 20.0 - 54.3 % [facility] Monocytes % 4.6 4.3 - 13.5 % [facility] Eosinophils % 6.6(H) 0.0 - 6.0 % [facility] Basophil % 0.6 0.0 - 3.0 % [facility] Absolute Neutrophil 5.6 1.8 - 6.6 K/uL [facility] Absolute Lymphocyte 3.0 0.8 - 3.3 K/uL [facility] Absolute Monocyte 0.4 0.2 - 1.2 K/uL [facility] Absolute Eosinophil 0.6(H) 0.0 - 0.5 K/uL [facility] Absolute Basophil 0.1 0.0 - 0.2 K/uL [facility] Nucleated RBC % 0.1 0.0 - 0.4 /100 WBC [facility] Blood specimen (specimen) 09/14/2021 10:40 AM CDT 09/14/2021 1:05 PM CDT Trent Severino MD LAB BLOOD ORDERABLES Final Re sult [facility] * (ABNORMAL) Comprehensive metabolic panel (09/14/2021 10:40 AM CDT) Total Protein 7.8 6.1 - 8.4 g/dL [facility] Albumin 4.3 3.5 - 5.2 g/dL [facility] Calcium 9.3 8.6 - 10.3 mg/dL [facility] BUN 13 7 - 23 mg/dL [facility] Total Bilirubin 0.18(L) 0.20 - 1.40 mg/dL [facility] Comment:Repeated and Verifie d Alk Phos, Total 94 35 - 129 IU/L [facility] AST (SGOT) 33 11 - 47 IU/L [facility] ALT (SGPT) 43 6 - 53 IU/L [facility] Creatinine 0.49(L) 0.60 - 1.10 mg/dL [facility] Sodium 138 135 - 145 mmol/L [facility] Potassium 4.0 3.3 - 5.1 mmol/L [facility] Chloride 103 95 - 107 mmol/L [facility] CO2 Content 19(L) 21 - 29 mmol/L [facility] Glucose 104(H) 64 - 99 mg/dL [facility] Comment: NONFASTING GLUCOSE RANGE = 64-199 mg/dL FASTING GLUCOSE 64 - 99 = NORMAL FASTING GLUCOSE 100 - 125 = IMPAIRED FASTING GLUCOSE FASTING GLUCOSE >=126 = PROVISIONAL DIAGNOSIS OF DIABETES eGFR >90.0 >60.0 mL/min/1.7 3 m2 [facility] Blood specimen (specimen) (Blood, Venous) 09/14/2021 10:40 AM CDT 09/14/2021 1:05 PM CDT Trent Severino MD LAB BLOOD ORDERABLES Final Re sult Performing Organization Address [facility] de Phone Number [facility] * (ABNORMAL) Iron profile w/ IBC (09/14/2021 10:40 AM CDT) Iron 44 30 - 160 ug/dL [facility] TIBC 441(H) 220 - 420 ug/dL [facility] Iron saturation 10.0(L) 11.0 - 52.0 % [facility] Blood specimen (specimen) 09/14/2021 10:40 AM CDT 09/14/2021 1:05 PM CDT Trent Severino MD LAB BLOOD ORDERABLES Final Re sult Performing Organization Address [facility] de Phone Number [facility] * (ABNORMAL) Vitamin D 25 hydroxy (09/14/2021 10:40 AM CDT) Vitamin D 19.0(L) 30.0 - 100.0 ng/mL [facility] Comment: VITAMIN D DEFICIENCY = LESS THAN or EQUAL TO 20 ng/mL VITAMIN D INSUFFICIENCY = GREATER THAN 20 AND LESS THAN 30 ng/mL RECOMMENDED NORMAL RANGE = 30-100 ng/mL Blood specimen (specimen) 09/14/2021 10:40 AM CDT 09/14/2021 1:05 PM CDT Trent Severino MD LAB BLOOD ORDERABLES Final Re sult Performing Organization Address [facility] Co de Phone Number [facility] * Hemoglobin A1c (09/14/2021 10:40 AM CDT) HbA1c 5.5 5.1 - 5.6 % [facility] Comment: HBA1C 5.1 - 5.6 = NORMAL HBA1C 5.7 - 6.4 = PREDIABETES HBA1C >=6.5 = PROVISIONAL DIAGNOSIS OF DIABETES Estimated Average Glucose 111 mg/dL [facility] Blood specimen (specimen) 09/14/2021 10:40 AM CDT 09/14/2021 1:05 PM CDT Trent Severino MD LAB BLOOD ORDERABLES Final Re sult [facility] documented in [...] mL/hr, Administer over 30 Minutes, Once, On Fri09/14/21 at 1145, For 1 doseIndications:Crohn's disease of small intestine with other complication (HCC) New Bag 09/14/2021 10:45 AM CDT 300 mg 510 mL/hr documented in this encounter Orders Medications Ordered That Jonathan ht Not Have Been Administered Count Last Ordered Date First Ordered Date vedolizumab (ENTYVIO) 300 mg in sodium chloride 0.9% 250 mL IVPB 1 09/14/2021 Nursing Count Last Ordered Date First Orde red Date ONCBCN NO PREMEDS NEEDED 1 09/14/2021 VITAL SIGNS PRE-INFUSION 1 09/14/2021 documented in this encounter Additional Health Concerns Infection Onset Date Last Indicated Resolved Time COVID: Recovered Comment:Added based on recent COVID infection. 06/10/2021 06/11/2021 10/08/2021 3:05 AM C DT documented as of this encounter Care Teams Pencil Maker Relationship Specialty Start Date End Date Judy Fishman NP [address] [address] PCP - General 07/31/18 Jessica Martínez MD [address] [address] Consulting Physician Obstetrics and Gynecology 11/16/20 documented as of this encounter
--- OUTSIDE RECORDS SUMMARY | 2024-04-11 06:14 | XMS_ITS | Encounter Summary ---
Author Organization [facility] Address [address] [place] [address] Care Team Providers Care Tiger Machine Operator Name Role Phone Judy Fishman STOVE POLISHER Primary Care Provider + Jessica Martínez MD Unavailable [phone] Reason for Visit * Reason Onset Date Comments Covid-19 Home Monitoring 06/02/2021 Encounter Details Date Type Department Care Team (Late st Contact Info) Description 06/02/2021 Telephone [facility] Accountable Care Organization [address] [place] [address] Rut Rolle, JOSH [address] [place] [id number] Covid-19 Home Monitoring Social History Tobacco Use Types Packs/Day Years [...] in a fci (including now)? No 05/31/2021 Comments No Sex and Gender Information Value Date Recorded Sex Assigned at Not on file Legal Sex Female 7:54 PM MARKETING INTERN Gender Identity Not on file Sexual Orientation Not on file documented as of this encounter Miscellaneous Notes * Telephone Encounter - Rut Rolle LPN - 06/02/2021 1:59 PM MARKETING INTERN This patient is being disenrolled from the [employer] COVID-19 Home Monitoring program for the following reason: Opted out. This patient has requested to opt out of the [employer] version of the COVID-19 home monitoringprogram. The patient is also aware of the phone number to call if they have further questions or iftheir symptoms get worse: . I am also manually removing the patient's assigned [employer] tasks (in the Patient To Do List activity). Patient states she is not having any symptoms and hasn't since she was diagnosed. ETING INTERN documented in this encounter Plan of Treatment Not on file documented as of this encounter Visit Diagnoses Not on filedocumented in this encounter Additional Health Concerns Infection Onset Date Last Indicated Resolved Time COVID19 05/28/2021 05/28/2021 06/10/2021 3:06 AM MARKETING INTERN documented as of this encounter Care Teams Tiger Machine Operator Relationship Specialty Start Date End Date Judy Fishman NP [address] [address] PCP - General 07/31/18 Jessica Martínez MD [address] [address] Consulting Physician Obstetrics and Gynecology 11/16/20 documented as of this encounter
--- OUTSIDE RECORDS SUMMARY | 2024-04-11 06:14 | XMS_ITS | Encounter Summary ---
Author Organization [facility] Medical [facility] Address [address] [place] [address] Care Team Providers Care Felt Hooker Name Role Phone Judy Fishmna CLIPPER MACHINE OPERATOR Primary Care Provider + Jessica Martínez MD Unavailable [phone] Encounter Details Date Type Department Care Team (Late st Contact Info) Description 06/01/2021 Orders Only [facility] Accountable Care Organization [address] [place] [address] Jam Moss RN [address] [place] [address] [facility] [address] [place] [address] Social History Tobacco Use Types Packs/Day Years [...] often do you attend chur ch or druze services? 1 to 4 times per year 05/31/2021 Do you belong to any clubs o r organizations such as islam groups, unions, fraternal or athletic groups, or [...] a skilled nursing (including now)? No 05/31/2021 Comments No Sex and Gender Information Value Date Recorded Sex Assigned at Not on file Legal Sex Female 7:54 PM GRAPHITE DISK ASSEMBLER Gender Identity Not on file Sexual Orientation Not on file documented as of this encounter Plan of Treatment Not on file documented as of this encounter Visit Diagnoses Not on filedocumented in this encounter Additional Health Concerns Infection Onset Date Last Indicated Resolved Time COVID19 05/28/2021 05/28/2021 06/10/2021 3:06 AM GRAPHITE DISK ASSEMBLER documented as of this encounter Care Teams Felt Hooker Relationship Specialty Start Date End Date Judy Fishman NP [address] [address] PCP - General 07/31/18 Jessica Martínez MD [address] [address] Consulting Physician Obstetrics and Gynecology 11/16/20 documented as of this encounter
--- OUTSIDE RECORDS SUMMARY | 2024-04-11 06:14 | XMS_ITS | Encounter Summary ---
Author Organization [facility] Address [address] [place] [address] Phone Care Team Providers Care Belly Roller Name Role Phone Judy Fishman NP Primary Care Provider + Jessica Martínez MD Unavailable [phone] Reason for Visit * Reason Comments Follow-up Encounter Details Date Type Department Care Team (Late st Contact Info) Description 07/10/2021 9:30 AM CDT Office Visit [facility] Maternal- Medicine [address] [place] [address] Judy Polanco NP [address] [phone] [place], [place] [id number] care following vaginal delivery Social History Tobacco [...] week 05/31/2021 How often do you attend [facility] or hindu services? 1 to 4 times [...] in a halfway (including now)? No 05/31/2021 Golden Gate Depression Scale Answer Date Recorded [place] Depression Scale Total 2 07/10/2021 The thought of harming myself has occurred to me . Never 07/10/2021 Comments No Sex and Gender Information Value Date Recorded Sex Assigned at Not on file Legal Sex Female 7:54 PM MINK RANCHER Gender Identity Not on file Sexual Orientation [...] 9:02 AM CDT documented in this encounter Ordered Prescriptions Prescription Sig Dispense Quantity Refills Last Filled Start Date End Date norgestimate-ethin yl estradioL (ORTHO-CYCLEN) 0.25-35 mg-mcg per tablet Take 1 tablet by mouth daily 28 tablet 12 07/10/2021 06/13/2022 documented in this encounter Progress Notes * Judy Polanco, SENIOR PROJECT ARCHITECT - 07/10/2021 9:30 AM CDT [facility] Week 6 Visit 07/10/2021 Delivery Date: 05/29/2021 Type: Vaginal, Spontaneous [250] Delivery Details: 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 Bakri with 450cc. Vaginal packing and bakri removed 05/30. Hgb 6.8 > 9.2 post transfusion. Primary OBGYN: MFM Diagnosis: preE with SF Subjective: Liliana Mancilla is a 30 y.o. now being seen in the [facility] clinic following a on 05/29/2021 for preE with SF Since delivery she has been doing well. No longer having pain or vaginal bleeding. Denies issues with bowel or bladder. Currently formula feeding and denies issues with breasts. Her mood has been great. Objective: BP 115/75 Pulse 80 Ht 157.5 cm (5' 2 ) Wt 241 lb (109.3 kg) SpO2 98% BMI 44.08 kg/m?? General: Pleasant female in NAD CV: Breathing comfortably, regular heart rate Abdomen: soft, ND, NT Extremities: warm and well-perfused and non-tender, no edema Last pap: 01/2019, negative- plan for well women exam in January Screened for depression or prior mood disorders/blues: [place] Depression Scale Total: 2 Assessment and Plan: Liliana Mancilla is a 30 y.o. now here for follow up in the [facility] Clinic #preE with SF - Current regimen: no meds - BP today wnl - Continue cardiology f/u with [facility] clinic # - denies issues #pp hemorrhage - counseled today regarding risk of reoccurrence - recommend delivery at PVT #crohn's - continue with entryvio and close f/u with GI #gdma2 - for 2 hour gtt at 6 weeks pp- discussed but pt declines at this time and plans for an A1c at 12 weeks pp - counseled on risk of T2DM and recommend good diet, exercise and regular f/u with PCP #Contraception: S/p counseling. Plan for COCs. Instructions reviewed and rx placed. DIEUDONNE Raphael documented in this encounter Plan of Treatment Not on file documented as of this encounter Visit Diagnoses Diagnosis care following vaginal delivery documented in this encounter Additional Health Concerns Infection Onset Date Last Indicated Resolved Time COVID: Recovered Comment:Added based on recent COVID infection. 06/10/2021 06/11/2021 10/08/2021 3:05 AM C DT documented as of this encounter Care Teams Belly Roller Relationship Specialty Start Date End Date Judy Fishman NP [email or web address] [address] PCP - General 07/31/18 Jessica Martínez MD [address] [address] Consulting Physician Obstetrics and Gynecology 11/16/20 documented as of this encounter
--- OUTSIDE RECORDS SUMMARY | 2024-04-11 06:14 | XMS_ITS | Encounter Summary ---
Author Organization [facility] Address [address] [place] [address] Care Team Providers Care Recycling Operator Name Role Phone Judy Fishman TARIFF EXPERT Primary Care Provider + Jessica Martínez MD Unavailable [phone] Encounter Details Date Type Department Care Team (Late st Contact Info) Description 06/15/2021 2:05 PM HERBICIDE SERVICE SALES REPRESENTAT[place] [address] Crohn's disease of small intestine with other [...] a senior living (including now)? No 05/31/2021 Whately Depression Scale Answer Date Recorded Whately Depression Scale Total 2 06/12/2021 The thought of harming myself has occurred to me . Never 06/12/2021 Comments No Sex and Gender Information Value Date Recorded Sex Assigned at Not on file Legal Sex Female 7:54 PM HERBICIDE SERVICE SALES REPRESENTATIVE Gender Identity Not on file Sexual Orientation Not on file documented as of this encounter Plan of Treatment Not on file documented as of this encounter Procedures Procedure Name Priority Date/Time Associated Diagnosis Comments EGFR Routine 06/15/2021 11:25 AM HERBICIDE SERVICE SALES REPRESENTATIVE DIFFERENTIAL AUTO Routine 06/15/2021 11: 25 AM HERBICIDE SERVICE SALES REPRESENTATIVE CBC WITH AUTO DIFFERENTIAL Routine 06/15/2021 11:25 AM HERBICIDE SERVICE SALES REPRESENTATIVE CRP (ACUTE PHASE) Routine 06/15/2021 11: 25 AM HERBICIDE SERVICE SALES REPRESENTATIVE COMPREHENSIVE METABOLIC PANEL Routine 06/15/2021 11:25 AM HERBICIDE SERVICE SALES REPRESENTATIVE documented in this encounter Results * eGFR (06/15/2021 11:25 AM HERBICIDE SERVICE SALES REPRESENTATIVE) eGFR >90 90 - 130 mL/min/1. 73 m2 [facility] Comment: Interpretive Data Reference Interval Normal [...] of Race in Diagnosing Kidney Disease, JASN 202). The CKD-EPI equation should not be used for patients with unstable renal function and has not been validated in children and those over 70. Current interpretive data was last reviewed 2021. Blood 06/15/2021 11:2 5 AM HERBICIDE SERVICE SALES REPRESENTATIVE 06/15/2021 2:12 PM HERBICIDE SERVICE SALES REPRESENTATIVE Trent Severino MD LAB BLOOD ORDERABLES Final Re sult [facility] Department [place] [address] * Differential, auto (06/15/2021 11:25 AM HERBICIDE SERVICE SALES REPRESENTATIVE) Neutrophil abs 5.7 1.7 - 6.5 K/cumm [facility] Imm gran abs 0.1 0.0 - 0.1 K/cumm [facility] Lymphocyte abs 3.3 0.8 - 3.3 K/cumm [facility] Monocyte abs 0.6 0.2 - 0.8 K/cumm [facility] Eosinophil abs 0.3 0.0 - 0.5 K/cumm [facility] Basophil abs 0.0 0.0 - 0.1 K/cumm [facility] Neutrophil pct 57.8 % [facility] Comment: Interpretive Data Percent cell count reference ranges are not reported, since discordance with absolute values may lead to misinterpretation of CBC data. Current Interpretive Data was last revised on 2017. Imm gran pct 0.5 % [facility] Comment: Interpretive Data Percent cell count reference ranges are not reported, since discordance with absolute values may lead to misinterpretation of CBC data. Current Interpretive Data was last revised on 2017. Lymphocyte pct 32.9 % [facility] Comment: Interpretive Data Percent cell count reference ranges are not reported, since discordance with absolute values may lead to misinterpretation of CBC data. Current Interpretive Data was last revised on 2017. Monocyte pct 5.5 % [facility] Comment: Interpretive Data Percent cell count reference ranges are not reported, since discordance with absolute values may lead to misinterpretation of CBC data. Current Interpretive Data was last revised on 2017. Eosinophil pct 2.9 % [facility] Comment: Interpretive Data Percent cell count reference ranges are not reported, since discordance with absolute values may lead to misinterpretation of CBC data. Current Interpretive Data was last revised on 2017. Basophil pct 0.4 % [facility] Comment: Interpretive Data Percent cell count reference ranges are not reported, since discordance with absolute values may lead to misinterpretation of CBC data. Current Interpretive Data was last revised on 2017. Blood 06/15/2021 11:2 5 AM HERBICIDE SERVICE SALES REPRESENTATIVE 06/15/2021 2:04 PM HERBICIDE SERVICE SALES REPRESENTATIVE Trent Severino MD LAB BLOOD ORDERABLES Final Re sult Performing Organization Address [facility] de Phone Number [facility] Department [place] [address] * (ABNORMAL) CRP (acute phase) (06/15/2021 11:25 AM HERBICIDE SERVICE SALES REPRESENTATIVE) CRP 14.9(H) <=10.0 mg/L [facility] Blood 06/15/2021 11:2 5 AM HERBICIDE SERVICE SALES REPRESENTATIVE 06/15/2021 2:04 PM HERBICIDE SERVICE SALES REPRESENTATIVE Result [facility] Trent Severino MD LAB BLOOD ORDERABLES Final Re sult Performing Organization Address [facility] de Phone Number [facility] Department [place] [address] * (ABNORMAL) Comprehensive metabolic panel (06/15/2021 11:25 AM HERBICIDE SERVICE SALES REPRESENTATIVE) Sodium 144 135 - 145 mmol/L [facility] Potassium, pl 4.4 3.3 - 4.9 mmol/L [facility] Chloride 106 97 - 110 mmol/L [facility] CO2 29 22 - 32 mmol/L [facility] Anion gap 9 2 - 15 mmol/L [facility] BUN 14 8 - 25 mg/dL [facility] Creatinine 0.70 0.60 - 1.10 mg/dL [facility] Glucose 76 70 - 199 mg/dL [facility] Comment: Interpretive Data Fasting glucose >/= [...] classification and Diagnosis of Diabetes Diabetes Care 2017;40 (Suppl. 1):S11. Current interpretive data was last revised 2017. Calcium 9.6 8.5 - 10.3 mg/dL [facility] Bilirubin, total 0.2 0.1 - 1.2 mg/dL [facility] Protein, pl 7.7 6.5 - 8.5 g/dL [facility] Albumin 4.3 3.5 - 5.0 g/dL [facility] Alk phos 106 40 - 130 Units/L [facility] ALT 48(H) 7 - 45 Units/L [facility] AST 39 10 - 45 Units/L [facility] Blood 06/15/2021 11:2 5 AM HERBICIDE SERVICE SALES REPRESENTATIVE 06/15/2021 2:04 PM HERBICIDE SERVICE SALES REPRESENTATIVE us Trent Severino MD LAB BLOOD ORDERABLES Final Re sult [facility] Department [place] [address] * (ABNORMAL) CBC with auto differential (06/15/2021 11:25 AM HERBICIDE SERVICE SALES REPRESENTATIVE) WBC 9.9 3.8 - 9.9 K/cumm [facility] Hgb 9.5(L) 11.9 - 15.5 g/dL [facility] Hct 31.9(L) 35.6 - 45.5 % [facility] Plt 690(H) 150 - 400 K/cumm [facility] MPV 9.3 9.1 - 12.3 fL [facility] RBC 3.60(L) 3.90 - 5.20 M/cumm [facility] MCV 88.6 81.3 - 96.4 fL [facility] MCH 26.4(L) 27.1 - 33.3 pg [facility] MCHC 29.8(L) 32.3 - 35.7 g/dL [facility] RDW CV 15.7(H) 11.1 - 14.9 % [facility] RDW SD 49.9(H) 35.7 - 48.1 fL [facility] NRBC abs 0.00 0.00 - 0.01 K/cumm [facility] Blood 06/15/2021 11:2 5 AM HERBICIDE SERVICE SALES REPRESENTATIVE 06/15/2021 2:04 PM HERBICIDE SERVICE SALES REPRESENTATIVE Trent Severino MD LAB BLOOD ORDERABLES Final Re sult [facility] Department [place] [address] documented in this encounter Visit Diagnoses Diagnosis Crohn's disease of small intestine with other complication (HCC) documented in this encounter Orders Lab Orders Without Results Count Last Ordered D ate First Ordered Date CBC WITH AUTO DIFFERENTIAL 2 06/15/2021 COMPREHENSIVE METABOLIC PANEL 2 06/15/2021 documented in this encounter Additional Health Concerns Infection Onset Date Last Indicated Resolved Time COVID: Recovered Comment:Added based on recent COVID infection. 06/10/2021 06/11/2021 10/08/2021 3:05 AM C DT documented as of this encounter Care Teams Recycling Operator Relationship Specialty Start Date End Date Judy Fishman NP [address] [id number] PCP - General 07/31/18 Jessica Martínez MD [address] [address] Consulting Physician Obstetrics and Gynecology 11/16/20 documented as of this encounter
--- OUTSIDE RECORDS SUMMARY | 2024-04-11 06:14 | XMS_ITS | Encounter Summary ---
Author Organization [facility] Address [address] [place] [address] Phone Care Team Providers Care News Library Director Name Role Phone Juyd Fishman NP Primary Care Provider + Jessica Martínez MD Unavailable [phone] Reason for Visit * Episode Based Medications (Routine) - Pending Review Specialty Diagnoses / Procedures Referred By Contac t Referred To Contact Diagnoses Crohn's disease of small intestine with other complication (HCC) Procedures IA INJECTION, VEDOLIZUMAB Trent Severino MD [address] [place] [address] Phone: tel: fax: [facility] Infusion Therapy [facility] 5th [place] [address] [place] [address] Phone: tel: fax: Referral ID Status Reason Start Date Expiration Date V isits Requested Visits Authorized [id number] Pending Review 09/26/2021 09/26/[phone] Encounter Details Date Type Department Care Team (Late st Contact Info) Description 08/17/2021 11:30 AM CDT Infusion [facility] Infusion Therapy [facility] 5th [place] [address] [place] [address] Crohn's disease of small intestine [...] in a fdc (including now)? No 05/31/2021 [place] Depression Scale Answer Date Recorded [place] Depression Scale Total 2 07/10/2021 The thought of harming myself has occurred to me . Never 07/10/2021 Comments No Sex and Gender Information Value Date Recorded Sex Assigned at Not on file Legal Sex Female 7:54 PM HOSTESS HOST Gender Identity Not on file Sexual Orientation Not on file documented as of this encounter Last Filed Vital Signs Vital Sign Reading Time Taken Comments Blood Pressure 123/68 08/17/2021 12:05 PM CDT Pulse 74 08/17/2021 12:05 PM CDT Temperature - - Respiratory Rate 16 08/17/2021 12:05 PM CDT Oxygen Saturation - - Inhaled Oxygen Concentration - - Weight - - Height - - Body Mass Index - - documented in this encounter Progress Notes * Cynthia Mendez RN - 08/17/2021 11:30 AM CDT Pt to infusion center for Entyvio. VSS. Tolerated infusion without adverse reaction. Follow up scheduled in 4 weeks. documented in this encounter Plan of Treatment [...] mL/hr, Administer over 30 Minutes, Once, On Fri08/17/21 at 1230, For 1 doseIndications:Crohn's disease of small intestine with other complication (HCC) New Bag 08/17/2021 11:25 AM CDT 300 mg 510 mL/hr documented in this encounter Orders Medications Ordered That Jonathan ht Not Have Been Administered Count Last Ordered Date First Ordered Date vedolizumab (ENTYVIO) 300 mg in sodium chloride 0.9% 250 mL IVPB 1 08/17/2021 Nursing Count Last Ordered Date First Orde red Date ONCBCN NO PREMEDS NEEDED 1 08/17/2021 documented in this encounter Additional Health Concerns Infection Onset Date Last Indicated Resolved Time COVID: Recovered Comment:Added based on recent COVID infection. 06/10/2021 06/11/2021 10/08/2021 3:05 AM C DT documented as of this encounter Care Teams News Library Director Relationship Specialty Start Date End Date Judy Fishman NP [address] [address] PCP - General 07/31/18 Jessica Martínez MD [address] [address] Consulting Physician Obstetrics and Gynecology 11/16/20 documented as of this encounter
--- OUTSIDE RECORDS SUMMARY | 2024-04-11 06:14 | XMS_ITS | Encounter Summary ---
Author Organization [facility] Medical Group Address [address] [place] [address] Care Team Providers Care Pattern Perforating Machine Operator Name Role Phone Judy Fishman IMAGING TECH Primary Care Provider + Jessica Martínez MD Unavailable [phone] Encounter Details Date Type Department Care Team (Late st Contact Info) Description 06/08/2021 Orders Only [facility] Testing Site - [facility]. [address] [place] [address] Judy Polanco, BINU [address] [facility] [phone] [place] [address] Pre-procedure lab exam (Primary Dx) Social History Tobacco Use Types [...] How often do you attend chur or holiness services? 1 to 4 times [...] a group home (including now)? No 05/31/2021 Comments No Sex and Gender Information Value Date Recorded Sex Assigned at Not on file Legal Sex Female 7:54 PM MARINE DIESEL TECHNICIAN Gender Identity Not on file Sexual Orientation Not on file documented as of this encounter Progress Notes * Nuha Bustillo MA - 06/08/2021 10:46 AM CST Testing types: Pre-procedure ?? Date of Px/chemo/treatment/placement/transfer 06/13/2021 ?? Testing site patient will be sent to: [facility] ?? Testing: COVID-19 RNA ?? Does the patient currently work in a healthcare facility with direct patient contact? No ?? Is the patient a resident of a congregate care or living setting? No ?? ? Yes ?? Date testing requested: 06/09/2021 NE DIESEL TECHNICIAN documented in this encounter Plan of Treatment Not on file documented as of this encounter Visit Diagnoses Diagnosis Pre-procedure lab exam- Primary Pre-procedural laboratory examination documented in this encounter Additional Health Concerns Infection Onset Date Last Indicated Resolved Time COVID19 05/28/2021 05/28/2021 06/10/2021 3:06 AM MARINE DIESEL TECHNICIAN documented as of this encounter Care Teams Pattern Perforating Machine Operator Relationship Specialty Start Date End Date Judy Fishman NP [address] [address] PCP - General 07/31/18 Jessica Martínez MD [address] [address] Consulting Physician Obstetrics and Gynecology 11/16/20 documented as of this encounter
--- OUTSIDE RECORDS SUMMARY | 2024-04-11 06:14 | XMS_ITS | Encounter Summary ---
Author Organization [facility] Address [address] [place] [address] Phone Care Team Providers Care Carpenter Bridge Name Role Phone Judy Fishman NP Primary Care Provider + Jessica Martínez MD Unavailable [phone] Reason for Visit * Episode Based Medications (Routine) - Pending Review Specialty Diagnoses / Procedures Referred By Contac t Referred To Contact Diagnoses Crohn's disease of small intestine with other complication (HCC) Procedures OR INJECTION, VEDOLIZUMAB Trent Severino MD [address] [place] [address] Phone: tel: fax: [facility] Infusion Therapy [facility] Advanced Medicine 5th [place] [address] [place] [address] Phone: tel: fax: Referral ID Status Reason Start Date Expiration Date V isits Requested Visits Authorized [id number] Pending Review 09/26/2021 09/26/2022 41 [phone] Encounter Details Date Type Department Care Team (Late st Contact Info) Description 07/16/2021 11:30 AM CDT Infusion [facility] Infusion Therapy [facility] 5th [place] [address] [place] [address] Crohn's disease of small intestine [...] often do you attend chur ch or sikh services? 1 to 4 times per year [...] in a intermediate (including now)? No 05/31/2021 [place] Depression Scale Answer Date Recorded [place] Depression Scale Total 2 07/10/2021 The thought of harming myself has occurred to me . Never 07/10/2021 Comments No Sex and Gender Information Value Date Recorded Sex Assigned at Not on file Legal Sex Female 7:54 PM INSTRUMENTATION AND CONTROLS TECHNICIAN Gender Identity Not on file Sexual Orientation Not on file documented as of this encounter Last Filed Vital Signs Vital Sign Reading Time Taken Comments Blood Pressure 130/87 07/16/2021 11:15 AM CDT Pulse 77 07/16/2021 11:15 AM CDT Temperature 36.7 ??C (98 ??F) 07/16/2021 11:15 AM CDT Respiratory Rate - - Oxygen Saturation - - Inhaled Oxygen Concentration - - Weight - - Height - - Body Mass Index - - documented in this encounter Progress Notes * Amaya Monroe, RU - 07/16/2021 11:30 AM CDT Pt arrived to clinic and verbalized understanding of entyvio infusion. Pt denies s/s illness today.24g iv established in left ac x 1 attempt. documented in this encounter Plan of Treatment [...] mL/hr, Administer over 30 Minutes, Once, On 07/16/21 at 1215, For 1 doseIndications:Crohn's disease of small intestine with other complication (HCC) New Bag 07/16/2021 11:26 AM CDT 300 mg 510 mL/hr documented in this encounter Orders Medications Ordered That Jonathan ht Not Have Been Administered Count Last Ordered Date First Ordered Date vedolizumab (ENTYVIO) 300 mg in sodium chloride 0.9% 250 mL IVPB 1 07/16/2021 Nursing Count Last Ordered Date First Orde red Date DAILY WEIGHTS 1 07/16/2021 ONCBCN NO PREMEDS NEEDED 1 07/16/2021 ONCBCN NURSING COMMUNICATION [id number] 1 0 07/16/2021 VITAL SIGNS PRE-INFUSION 1 07/16/2021 documented in this encounter Additional Health Concerns Infection Onset Date Last Indicated Resolved Time COVID: Recovered Comment:Added based on recent COVID infection. 06/10/2021 06/11/2021 10/08/2021 3:05 AM C DT documented as of this encounter Care Teams Carpenter Bridge Relationship Specialty Start Date End Date Judy Fishman NP [email or web address] [address] PCP - General 07/31/18 Jessica Martínez MD [email or web address] [address] Consulting Physician Obstetrics and Gynecology 11/16/20 documented as of this encounter
--- OUTSIDE RECORDS SUMMARY | 2024-04-11 06:14 | XMS_ITS | Encounter Summary ---
Author Organization [facility] Address [address] [place] [address] Phone Care Team Providers Care Generating Plant Superintendent Name Role Phone Judy Fishman NP Primary Care Provider + Jessica Martínez MD Unavailable [phone] Encounter Details Date Type Department Care Team (Late st Contact Info) Description 06/05/2021 8:00 AM PARTS COUNTERMAN Telemedicine [facility] Maternal- Medicine [address] [facility] Out[facility] Health 7th Floor [address] [place] [address] America Collins MD [facility] [phone] [place] [address] Crohn's disease of small intestine with other complication (HCC) (Primary Dx); Insulin controlled gestational diabetes mellitus (GDM) in third trimester; Hemorrhoids during , delivered; Preeclampsia in period Social History Tobacco Use Types Packs/Day Years [...] in a jail (including now)? No 05/31/2021 Comments No Sex and Gender Information Value Date Recorded Sex Assigned at Not on file Legal Sex Female 7:54 PM PARTS COUNTERMAN Gender Identity Not on file Sexual Orientation Not on file documented as of this encounter Progress Notes * America Collins MD - 06/05/2021 8:00 AM CST M Visit 06/05/2021 Delivery Date: 05/29/2021 Type: Vaginal, Spontaneous [250] Delivery Details: at 36 weeks and 5 days, PPH - 3 Liters, S/P uterotonics, Preeclampsia with SF, A2DM Subjective: Liliana Mancilla is a 30 y.o. yo now 1 week s/p Since delivery she has been doing well. Reports loose stool but was Rx Miralax and Colace. She has DC the Miralax. She is c/o hemorrhoids. Vaginal bleeding is light. Objective: LMP 09/15/2020 (Exact Date) General: Pleasant female in NAD Last pap: to be obtained Assessment and Plan: Liliana Mancilla is a 30 y.o. yo now 1 week s/p complicated by PPH and preeclampsia. 1. : Doing well , meeting milestones - Pap smear: need to obtain results - Bottlefeeding 2. Medical issues: - Crohn's - restart Entyvio and has infusion scheduled and FU with GI. - Hemorrhoids - colace and Anusol. Will call if worsen. Discuss possibility of thrombosis. - Preeclampsia: SBP 130s and DBP 80-90s. 1 BP 144/88. Will continue to monitor. If persistently 140-150s will start agent. 3. Contraception: nothing. 4. depression screening: EPDS at in person visit. This was a telemedicine visit with Liliana Mancilla alone which took place via real-time video connection with [facility]. During the visit, I was located in the office and the patient was located at home in the state of [place]. The patient visit started at 8:00 and ended at 8:09. My total encounter time on 06/05/2021 was 15 minutes which was spent in the activities documented in the note. This includes timespent prior to the visit and after the visit in direct care of the patient. This time does not include time spent in any separately reportable services.. The patient has been informed that the visit may not be secure and acknowledged the information. I have explained the option of participating in a telephone or video visit during the COVID-19 public health emergency to the patient. After being given an opportunity to ask questions about and discuss this type of visit, the patient verbally consented to proceeding with the telephone/video visit.The patient understands that this service replaces an office visit and they may be billed and/or responsible for any applicable copayments. S COUNTERMAN documented in this encounter Plan of Treatment Not on file documented as of this encounter Visit Diagnoses Diagnosis Crohn's disease of small intestine with other complication (HCC)- Primary Insulin controlled gestational diabetes mellitus (GDM) in third trimester Hemorrhoids during , delivered Preeclampsia in period documented in this encounter Additional Health Concerns Infection Onset Date Last Indicated Resolved Time [facility]19 05/28/2021 05/28/2021 06/10/2021 3:06 AM PARTS COUNTERMAN documented as of this encounter Care Teams Generating Plant Superintendent Relationship Specialty Start Date End Date Judy Fishman NP [address] [address] PCP - General 07/31/18 Jessica Martínez MD [address] [address] Consulting Physician Obstetrics and Gynecology 11/16/20 documented as of this encounter
--- OUTSIDE RECORDS SUMMARY | 2024-04-11 06:14 | XMS_ITS | Encounter Summary ---
Author Organization [facility] Address [address] [place] [address] Phone Care Team Providers Care Duco Polisher Name Role Phone Judy Fishman NP Primary Care Provider + Jessica Martínez MD Unavailable [phone] Encounter Details Date Type Department Care Team (Late st Contact Info) Description 09/14/2021 12:20 PM CDT Lab [facility] Endocrinology Metabolism and Lipid [address] [facility] Advanced Medicine 5th [place] [address] [place] [address] Crohn's disease of small intestine [...] in a half-way (including now)? No 05/31/2021 [place] Depression Scale Answer Date Recorded [place] Depression Scale Total 2 07/10/2021 The thought of harming myself has occurred to me . Never 07/10/2021 Comments Unknown Sex and Gender Information Value Date Recorded Sex Assigned at Not on file Legal Sex Female 7:54 PM CMM TECHNICIAN Gender Identity Not on file Sexual [...] documented as of this encounter Care Teams Duco Polisher Relationship Specialty Start Date End Date Judy Fishman NP [address] [place] [address] PCP - General 07/31/18 Jessica Martínez MD [address] [place] [address] Consulting Physician Obstetrics and Gynecology 11/16/20 documented as of this encounter
--- OUTSIDE RECORDS SUMMARY | 2024-04-11 06:14 | XMS_ITS | Encounter Summary ---
Author Organization [facility] Address [address] [place] [address] Phone Care Team Providers Care Underwear Finisher Name Role Phone Judy Fishman NP Primary Care Provider + Jessica Martínez MD Unavailable [phone] Reason for Visit * Reason Comments Return Patient Encounter Details Date Type Department Care Team (Late st Contact Info) Description 06/12/2021 10:30 AM BROADCAST FIELD SUPERVISOR Office Visit [facility] Cardiology [address] [facility] Outpatient Health 7th Floor [address] [place] [address] Bita Magdaleno MD [address] [place] [address] care following vaginal delivery (Primary Dx); Preeclampsia in period; Insulin controlled gestational diabetes mellitus (GDM) in third trimester Social History Tobacco Use [...] often do you attend [facility] or restoration services? 1 to 4 times per year [...] a senior living (including now)? No 05/31/2021 [place] Depression Scale Answer Date Recorded [place] Depression Scale Total 2 06/12/2021 The thought of harming myself has occurred to me . Never 06/12/2021 Comments No Sex and Gender Information Value Date Recorded Sex Assigned at Not on file Legal Sex Female 7:54 PM BROADCAST FIELD SUPERVISOR Gender Identity Not on file Sexual Orientation Not on file documented as of this encounter Last Filed Vital Signs Vital Sign Reading Time Taken Comments Blood Pressure 116/77 06/12/2021 10:05 AM BROADCAST FIELD SUPERVISOR Pulse 73 06/12/2021 10:05 AM BROADCAST FIELD SUPERVISOR Temperature - - Respiratory Rate - - Oxygen Saturation 97% 06/12/2021 10:05 AM BROADCAST FIELD SUPERVISOR Inhaled Oxygen Concentration - - Weight 119.3 kg (263 lb) 06/12/2021 10:05 AM BROADCAST FIELD SUPERVISOR Height 157.5 cm (5' 2 ) 06/12/2021 10:05 AM BROADCAST FIELD SUPERVISOR Body Mass Index 48.1 06/12/2021 10:05 AM BROADCAST FIELD SUPERVISOR documented in this encounter Patient Instructions * Patient Instructions* Jammie Acuña MD - 06/12/2021 10:30 AM BROADCAST FIELD SUPERVISOR No med changes Keep checking blood pressures once daily. Return in 4 weeks. Come fasting for your oral glucose tolerance test DCAST FIELD SUPERVISOR documented in this encounter Progress Notes * Bita Magdaleno MD - 06/12/2021 10:30 AM CST [facility] Cardiovascular Clinic Provider: Bita Magdaleno MD Patient Name: Liliana Mancilla : 1990 Date of Service: 06/12/2021 Primary BOOM MASTER: MFM PROBLEM LIST: 1. Preeclampsia with Severe Features 2. COVID-19 infection 05/2021 3. Crohn's Disease 4. Gestational DM 5. Pre-diabetes - A1c 5.8 06/09/20 6. Obesity 7. Vaginal delivery 05/29/21 at 36.5 (IVF conception) a. C/b hemorrhage s/p 2 units PRBCs b. c. Natural family planning for contraception Today I had the pleasure of seeing Liliana Mancilla in follow up at the [facility] Cardiovascular due to her recent delivery complicated by Preeclampsia with Severe Features, gestational diabetes. She was last seen in HEART on 06/05/2021. This is her 2 week follow up visit. Current antihypertensive medications include: None The following changes have been made to her medication regimen her last clinic visit: none Medication Adherence: # of missed doses per week - N/A, no antihypertensive medications are prescribed Barriers to adherence include: N/A Home blood pressures have been ranging from 110-135/78-93 She has not been readmitted to the hospital since her last clinic visit. Reason for hospital readmission was: N/A Will return to work on September 17. She reports the following cardiac symptoms since her last clinic visit.: Chest pain/pressure: no Shortness of breath/HSU: no PND: no Orthopnea: no Lower extremity edema: no, now back to normal Cough:no Headache: yes (prev) - now rare Visual changes: no She is not . She has chosen the following for contraception: natural family planning MEDICATIONS Outpatient Encounter Medications as of 06/12/2021 Medication Sig Dispense Refill ??? acetaminophen 500 mg capsule Take 2 capsules (1,000 mg total) by mouth every 6 (six) hours as needed for pain (Patient not taking: Reported on 06/12/2021) 90 tablet 1 ??? cholecalciferol (VITAMIN D-3) 1,000 unit capsule ??? docusate sodium (COLACE) 100 mg capsule Take 1 capsule (100 mg total) by mouth 2 (two) times a day as needed for constipation (Patient not taking: Reported on 06/12/2021) 60 capsule 0 ??? ferrous sulfate 325 mg (65 mg of elemental iron) tablet Take 1 tablet (325 mg total) by mouth every other day 30 tablet 3 ??? hydrocortisone 2.5 % cream Apply topically 2 (two) times a day (Patient not taking: Reported on06/12/2021) 30 g 1 ??? ibuprofen (ADVIL,MOTRIN) 600 mg tablet Take 1 tablet (600 mg total) by mouth every 6 (six) hours as needed for pain (Patient not taking: Reported on 06/12/2021) 90 tablet 1 ??? lancets 33 gauge misc CHECK GLUCOSE FASTING AND ONE HOUR AFTER EACH MEAL 200 each 6 ??? pen needle, diabetic 33 gauge x 5/32 needle 1 INJECTIONS DAILY DIRECTED 200 each 3 ??? PNV with zewhaaw-dzsr-LT 27 mg iron- 1 mg tablet Take 1 tablet by mouth daily 90 tablet 3 ??? polyethylene glycol (MIRALAX) 17 gram packet Take 1 packet (17 g total) by mouth daily as needed for constipation 17 packet 0 ??? vedolizumab (ENTYVIO) 300 mg recon soln 300 mg No facility-administered encounter medications on file as of 06/12/2021. ALLERGY Cefdinir, Clindamycin, Povidone-iodine, Sulfa (sulfonamide antibiotics), [...] to observe. Has improved PHYSICAL EXAM: BP 116/77 Pulse 73 Ht 157.5 cm (5' 2 ) Wt 119.3 kg (263 lb) LMP 09/15/2020 (Exact Date) SpO2 97% BMI 48.10 kg/m?? [place] Depression Score: 2 Vital signs, weight, and [...] DATA: Sodium Date Value Ref Range Status 05/30/2021 140 135 - 145 mmol/L Final Potassium, pl Date Value Ref Range Status 05/30/2021 3.8 3.3 - 4.9 mmol/L Final Creatinine Date Value Ref Range Status 05/30/2021 0.67 0.60 - 1.10 mg/dL Final 05/29/2021 0.70 0.60 - 1.10 mg/dL Final 05/29/2021 0.58 (L) 0.60 - 1.10 mg/dL Final Hgb Date Value Ref Range Status 05/30/2021 8.0 (L) 11.9 - 15.5 g/dL Final 05/29/2021 9.2 (L) 11.9 - 15.5 g/dL Final TSH [...] and lipid screening/hgb a1c 12 weeks after delivery. OGTT will be drawn at her next visit and lipid panel/a1c will be drawn at her 12 week visit. We discussed the importance of lifelong annual blood pressure monitoring. We discussed the importance of maintaining healthy weight. We discussed heart healthy diet and exercise recommendations. We will offer weaver apprentice referral at her follow up visit. 3. Planning - The benefits of LARC have been discussed. She has chosen the following for contraception: natural family planning. Thank you very much for letting me participate in the care of this patient. I will plan to see her back at [facility] in follow up in 4 weeks. Please feel free to call with any questions or concerns. Sincerely, Bita Magdaleno MD [facility] documented in this encounter Plan of Treatment Not on file documented as of this encounter Visit Diagnoses Diagnosis care following vaginal delivery- Primary Preeclampsia in period Insulin controlled gestational diabetes mellitus (GDM) in third trimester documented in this encounter Additional Health Concerns Infection Onset Date Last Indicated Resolved Time COVID: Recovered Comment:Added based on recent COVID infection. 06/10/2021 06/11/2021 10/08/2021 3:05 AM C DT documented as of this encounter Care Teams Underwear Finisher Relationship Specialty Start Date End Date Judy Fishman NP [address] [address] PCP - General 07/31/18 Jessica Martínez MD [address] [address] Consulting Physician Obstetrics and Gynecology 11/16/20 documented as of this encounter
--- OUTSIDE RECORDS SUMMARY | 2024-04-11 06:14 | XMS_ITS | Encounter Summary ---
Author Organization [facility] Address [address] [place] [address] Phone Care Team Providers Care Layout Inspector Name Role Phone Judy Fishman NP Primary Care Provider + Jessica Martínez MD Unavailable [phone] Reason for Visit * Reason Comments Return Patient Encounter Details Date Type Department Care Team (Late st Contact Info) Description 08/21/2021 9:00 AM CDT Office Visit [facility] [address] [facility] 7th Floor [address] [place] [address] Bita Magdaleno MD [address] [place] [address] Hypertension in , preeclampsia, delivered (Primary Dx); Encounter for care or examination of mother immediately after delivery; Prediabetes; Cardiac risk counseling; BMI 40.0-44.9, adult (HCC) Social History Tobacco Use Types Packs/Day [...] any clubs o r organizations such as uatsdin groups, unions, fraternal or athletic groups, or [...] in a intermediate (including now)? No 05/31/2021 Robson Depression Scale Answer Date Recorded Robson Depression Scale Total 2 07/10/2021 The thought of harming myself has occurred to me . Never 07/10/2021 Comments No Sex and Gender Information Value Date Recorded Sex Assigned at Not on file Legal Sex Female 7:54 PM ACCIDENT REPORT CLERK Gender Identity Not on file Sexual Orientation Not on file documented as of this encounter Last Filed Vital Signs Vital Sign Reading Time Taken Comments Blood Pressure 113/78 08/21/2021 9:01 AM CDT Pulse 89 08/21/2021 9:01 AM CDT Temperature - - Respiratory Rate - - Oxygen Saturation 97% 08/21/2021 9:01 AM CDT Inhaled Oxygen Concentration - - Weight 110.7 kg (244 lb) 08/21/2021 9:01 AM CDT Height 157.5 cm (5' 2 ) 08/21/2021 9:01 AM CDT Body Mass Index 44.63 08/21/2021 9:01 AM CDT documented in this encounter Patient Instructions * Patient Instructions* Bita Magdaleno MD - 08/21/2021 9:00 AM CDT Labs today documented in this encounter Progress Notes * Aleida Paiz NP - 08/21/2021 9:00 AM CDT [facility] Cardi[facility] Clinic Provider: Bita Magdaleno MD Patient Name: Liliana Mancilla : 1990 Date of Service: 08/21/2021 Primary BUILDING MAINTENANCE ENGINEER: MFM PROBLEM LIST: 1. Preeclampsia with Severe Features 2. COVID-19 infection 05/2021 3. Crohn's Disease 4. Gestational DM 5. Pre-diabetes - A1c 5.8 06/09/20 6. Obesity 7. Vaginal delivery 05/29/21 at 36.5 (IVF conception) a. C/b hemorrhage s/p 2 units PRBCs b. c. Natural family planning for contraception Today I had the pleasure of seeing Liliana Mancilla in follow up at the [facility] Cardiovascular due to her recent delivery complicated by Preeclampsia with Severe Features, gestational diabetes. She was last seen in [facility] on 07/10[facility]. This is her 12 week follow up visit. Current antihypertensive medications include: None The following changes have been made to her medication regimen her last clinic visit: none Medication Adherence: # of missed doses per week - N/A, no antihypertensive medications are prescribed Barriers to adherence include: None She has not been checking her blood pressure at home but BP readings have been normal at recent office visits. She is exercising 2-3 times per week, walking and swimming. She has not been readmitted to the hospital since her last clinic visit. Reason for hospital readmission was: N/A She reports the following cardiac symptoms since her last clinic visit.: Chest pain/pressure: no Shortness of breath/HSU: no PND: no Orthopnea: no Lower extremity edema: no Cough:no Headache: no Visual changes: no She is not . She has chosen the following for contraception: natural family planning MEDICATIONS Outpatient Encounter Medications as of 08/21/2021 Medication Sig Dispense Refill ??? norgestimate-ethinyl estradioL (ORTHO-CYCLEN) 0.25-35 mg-mcg per tablet Take 1 tablet by mouth daily 28 tablet 12 ??? vedolizumab (ENTYVIO) 300 mg recon soln 300 mg ??? acetaminophen 500 mg capsule Take 2 capsules (1,000 mg total) by mouth every 6 (six) hours as needed for pain (Patient not taking: Reported on 08/21/2021) 90 tablet 1 ??? cholecalciferol (VITAMIN D-3) 1,000 unit capsule (Patient not taking: No sig reported) ??? docusate sodium (COLACE) 100 mg capsule Take 1 capsule (100 mg total) by mouth 2 (two) times a day as needed for constipation (Patient not taking: No sig reported) 60 capsule 0 ??? ferrous sulfate 325 mg (65 mg of elemental iron) tablet Take 1 tablet (325 mg total) by mouth every other day (Patient not taking: No sig reported) 30 tablet 3 ??? hydrocortisone 2.5 % cream Apply topically 2 (two) times a day (Patient not taking: No sig reported) 30 g 1 ??? ibuprofen (ADVIL,MOTRIN) 600 mg tablet Take 1 tablet (600 mg total) by mouth every 6 (six) hours as needed for pain (Patient not taking: No sig reported) 90 tablet 1 ??? PNV with uyxpsuh-illl-AY 27 mg iron- 1 mg tablet Take 1 tablet by mouth daily (Patient not taking: No sig reported) 90 tablet 3 No facility-administered encounter medications on file as of 08/21/2021. ALLERGY Cefdinir, Clindamycin, Povidone-iodine, Sulfa (sulfonamide antibiotics), Unclassified drug, and Morphine REVIEW OF SYSTEMS: Review of systems per HPI and otherwise all other review of systems negative. PHYSICAL EXAM: BP 113/78 Pulse 89 Ht 157.5 cm (5' 2 ) Wt 110.7 kg (244 lb) SpO2 97% BMI 44.63 kg/m?? Robson Depression Score: 1 Vital signs, weight, and intake/output reviewed. Gen: [...] Features - Blood pressure today is at goal on no medications. The following medication adjustments were made: none. She was counseled to check home blood pressures periodically and follow up with PCP annually. 2. Cardiac risk counseling - She was counseled on her increased risk of future cardiovascular disease, including hypertension, coronary artery disease, heart failure, and stroke. The importance of risk factor screening and modification was discussed, including recommendations for labs: lipid panel and A1c will be drawn today. We discussed the importance of lifelong annual blood pressure monitoring. We discussed the importance of maintaining healthy weight. We discussed heart healthy diet and exercise recommendations. 3. Planning - The benefits of LARC have been discussed. She has chosen the following for contraception: natural family planning. Thank you very much for letting me participate in the care of this patient. Sincerely, Aleida Paiz, ANP-BC Bita Magdaleno MD [facility] documented in this encounter Plan of Treatment Not on file documented as of this encounter Visit Diagnoses Diagnosis Hypertension in , preeclampsia, delivered- Primary Mild or unspecified pre-eclampsia, with delivery Encounter for care or examination of mother immediately after delivery Prediabetes Other abnormal glucose Cardiac risk counseling BMI 40.0-44.9, adult (HCC) documented in this encounter Additional Health Concerns Infection Onset Date Last Indicated Resolved Time COVID: Recovered Comment:Added based on recent COVID infection. 06/10/2021 06/11/2021 10/08/2021 3:05 AM C DT documented as of this encounter Care Teams Layout Inspector Relationship Specialty Start Date End Date Judy Fishman NP [address] [place] [phone] PCP - General 07/31/18 Jessica Martínez MD [address] [place] [address] Consulting Physician Obstetrics and Gynecology 11/16/20 documented as of this encounter
--- OUTSIDE RECORDS SUMMARY | 2024-04-11 06:14 | XMS_ITS | Encounter Summary ---
Author Organization [facility] Address [address] [place] [address] Phone Care Team Providers Care Machine Tool Mechanic Name Role Phone Judy Fishman NP Primary Care Provider + Jessica Martínez MD Unavailable [phone] Reason for Visit * Episode Based Medications (Routine) - Pending Review Specialty Diagnoses / Procedures Referred By Contac t Referred To Contact Diagnoses Crohn's disease of small intestine with other complication (HCC) Procedures TX INJECTION, VEDOLIZUMAB Trent Severino MD [address] [place] [address] Phone: tel: fax: [facility] 5th [place] [address] [place] [address] Phone: tel: fax: Referral ID Status Reason Start Date Expiration Date V isits Requested Visits Authorized [id number] Pending Review 09/26/2021 09/26/[phone] Encounter Details Date Type Department Care Team (Late st Contact Info) Description 06/15/2021 11:30 AM CERAMIC MOLD DESIGNER Infusion [facility] 5th [place] [address] [place] [address] Crohn's disease of small intestine [...] a group home (including now)? No 05/31/2021 Helix Depression Scale Answer Date Recorded Helix Depression Scale Total 2 06/12/2021 The thought of harming myself has occurred to me . Never 06/12/2021 Comments No Sex and Gender Information Value Date Recorded Sex Assigned at Not on file Legal Sex Female 7:54 PM CERAMIC MOLD DESIGNER Gender Identity Not on file Sexual Orientation Not on file documented as of this encounter Last Filed Vital Signs Vital Sign Reading Time Taken Comments Blood Pressure 121/78 06/15/2021 12:09 PM CERAMIC MOLD DESIGNER Pulse 86 06/15/2021 12:09 PM CERAMIC MOLD DESIGNER Temperature - - Respiratory Rate - - Oxygen Saturation - - Inhaled Oxygen Concentration - - Weight - - Height - - Body Mass Index - - documented in this encounter Progress Notes * Cynthia Mendez, RU - 06/15/2021 11:30 AM CST Tolerated Entyvio infusion without adverse reaction. Follow up scheduled in 4 weeks. MIC MOLD DESIGNER documented in this encounter Plan of Treatment [...] mL/hr, Administer over 30 Minutes, Once, On Fri06/15/21 at 1230, For 1 doseIndications:Crohn's disease of small intestine with other complication (HCC) New Bag 06/15/2021 11:35 AM CERAMIC MOLD DESIGNER 300 mg 510 mL/hr documented in this encounter Orders Medications Ordered That Jonathan ht Not Have Been Administered Count Last Ordered Date First Ordered Date vedolizumab (ENTYVIO) 300 mg in sodium chloride 0.9% 250 mL IVPB 1 06/15/2021 Nursing Count Last Ordered Date First Orde red Date DAILY WEIGHTS 1 06/15/2021 ONCBCN NO PREMEDS NEEDED 1 06/15/2021 ONCBCN NURSING COMMUNICATION [id number] 1 0 06/15/2021 VITAL SIGNS PRE-INFUSION 1 06/15/2021 documented in this encounter Additional Health Concerns Infection Onset Date Last Indicated Resolved Time COVID: Recovered Comment:Added based on recent COVID infection. 06/10/2021 06/11/2021 10/08/2021 3:05 AM C DT documented as of this encounter Care Teams Machine Tool Mechanic Relationship Specialty Start Date End Date Judy Fishman NP [address] [address] PCP - General 07/31/18 Jessica Martínez MD [address] [address] Consulting Physician Obstetrics and Gynecology 11/16/20 documented as of this encounter
--- OUTSIDE RECORDS SUMMARY | 2024-04-11 06:14 | XMS_ITS | Encounter Summary ---
Author Organization [facility] Address [address] [place] [address] Phone Care Team Providers Care Locum Tenens Psychiatrist Name Role Phone Judy Fishman NP Primary Care Provider + Jessica Martínez MD Unavailable Encounter Details Date Type Department Care Team (Late st Contact Info) Description 06/05/2021 8:15 AM CONTROL CHEMIST Telemedicine [facility] Cardiology [address] [facility] 7th Floor [address] [place] [address] Bita Magdaleno MD [address] [place] [address] Preeclampsia in period (Primary Dx); Insulin controlled gestational diabetes mellitus (GDM) in third trimester; BMI 40.0-44.9, adult (HCC); Crohn's disease of small intestine with other [...] often do you attend chur ch or yazdanism services? 1 to 4 times per year 05/31/2021 Do you belong to any clubs o r organizations such as baptism groups, unions, fraternal or athletic groups, or [...] in a detention (including now)? No 05/31/2021 Comments No Sex and Gender Information Value Date Recorded Sex Assigned at Not on file Legal Sex Female 7:54 PM CONTROL CHEMIST Gender Identity Not on file Sexual Orientation Not on file documented as of this encounter Patient Instructions * Patient Instructions* Bita Magdaleno MD - 06/05/2021 8:15 AM CONTROL CHEMIST Follow up in 5 weeks in [facility] in person Plan to do a glucose tolerance test at the follow up appointment - come fasting Check BP twice a day for the next week. Call if persistently in 140s or ever above 160 Call if headaches do not resolve with tylenol, or if they are associated with any vision changes ROL CHEMIST documented in this encounter Progress Notes * Bita Magdaleno MD - 06/05/2021 8:15 AM CST Images from the original note were not included. [facility] Provider: Bita Magdaleno MD Patient Name: Liliana Mancilla : 1990 Date of Service: 06/05/2021 Primary SHIPPING INSPECTOR: MFM This was a telemedicine visit with Liliana Mancilla which took place via Real- time video connection ([employer], [employer] or similar). During the visit, I was located at [facility] and the patient was located at home in [place]. The session started at 8:17 and ended at 8:26. The patient has been informed that the visit may not be secure and acknowledged the information. I have explained the option of participating in a telephone or video visit during the COVID-19 public health emergency to the patient. After being given an opportunity to ask questions about and discuss this type of visit, the patient verbally consented to proceeding with the telephone / video visit. The patient understands that this service replaces an office visit and they may be billed and/or responsible for any applicable copayments. PROBLEM LIST: 1. Preeclampsia with Severe Features 2. COVID-19 infection 05/2021 3. Crohn's Disease 4. Gestational DM 5. Pre-diabetes - A1c 5.8 06/09/20 6. Obesity 7. Vaginal delivery 05/29/21 at 36.5 a. C/b hemorrhage s/p 2 units PRBCs b. c. Natural family planning for contraception Today I had the pleasure of [facility] her recent delivery complicated by Preeclampsia with Severe Features. She is now day # 7 from a . Delivery complications included: hemorrhage. Dc on no meds WHITE the last few days, resolves w apap Iniitally had a lot of swelling, now improving Discharge antihypertensive medications included: None The following changes have been made to her medication regimen since discharge: none Medication Adherence: # of missed doses per week - N/A, no antihypertensive medications are prescribed Barriers to adherence include: none She has been enrolled in remote blood pressure monitoring. Home blood pressures have been ranging from 130s/90s. She has not been readmitted to the hospital since delivery. Reason for hospital readmission was: N/A She reports the following cardiac symptoms since discharge.: Chest pain/pressure: no Shortness of breath/HSU: no PND: no Orthopnea: no Lower extremity edema: yes - improving Cough:no Headache: yes - resolves w apap Visual changes: no She is not . She has chosen the following for contraception: Natural Family Planning. Needed IVF for this . Previously dx w PCOS, but [place] didn't think she probably had it. PAST MEDICAL HISTORY Thyroid Disorder: no Depression/Anxiety/Mental Illness: no Diabetes: no DVT/PE: no Hypertension: no Autoimmune Disorder: yes - Crohns Hyperlipidemia: no Lupus/SLE: no CKD: no Asthma: no Infectious Disease (HIV, Hep B, Hep C):no Arrhythmia: no Seizure Disorder: no Cancer: no Sickle Cell Disease:no Obesity: yes Migraines: no EZE:no CAD/MN: no CHF: no Other: Crohns - well controlled Stroke: no PAST OBSTETRIC HISTORY Prior Preeclampsia: no Prior Gestational Diabetes: no : yes IUGR/SGA: no MEDICATIONS Outpatient Encounter Medications as of 06/05/2021 Medication Sig Dispense Refill ??? acetaminophen 500 mg capsule Take 2 capsules (1,000 mg total) by mouth every 6 (six) hours as needed for pain 90 tablet 1 ??? cholecalciferol (VITAMIN D-3) 1,000 unit capsule ??? docusate sodium (COLACE) 100 mg capsule Take 1 capsule (100 mg total) by mouth 2 (two) times a day as needed for constipation 60 capsule 0 ??? ferrous sulfate 325 mg (65 mg of elemental iron) tablet Take 1 tablet (325 mg total) by mouth every other day 30 tablet 3 ??? ibuprofen (ADVIL,MOTRIN) 600 mg tablet Take 1 tablet (600 mg total) by mouth every 6 (six) hours as needed for pain 90 tablet 1 ??? lancets 33 gauge misc CHECK GLUCOSE FASTING AND ONE HOUR AFTER EACH MEAL 200 each 6 ??? pen needle, diabetic 33 gauge x 5/32 needle 1 INJECTIONS DAILY DIRECTED 200 each 3 ??? PNV with vwzrrfd-vvdj-KO 27 mg iron- 1 mg tablet Take 1 tablet by mouth daily 90 tablet 3 ??? polyethylene glycol (MIRALAX) 17 gram packet Take 1 packet (17 g total) by mouth daily as needed for constipation 17 packet 0 ??? vedolizumab (ENTYVIO) 300 mg recon soln 300 mg No facility-administered encounter medications on file as of 06/05/2021. 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 PHYSICAL EXAM: This was a telehealth visit. 136/94 DIAGNOSTIC DATA: Sodium Date Value Ref Range [...] and modification was discussed, including recommendations for OGTT at 6 weeks and lipid screening 12 weeks after delivery. We discussed the importance of lifelong annual blood pressure monitoring. 3. GDM - Plan for OGTT at 6 week visit. Given her prior history of pre-diabetes, we will also checkan A1c at 12 weeks Thank you very much for letting me participate in the care of this patient. I will plan to see her back at [facility] in follow up in 5 weeks. Please feel free to call with any questions or concerns. Sincerely, Bita Magdaleno MD [facility] ROL CHEMIST documented in this encounter Plan of Treatment Not on file documented as of this encounter Visit Diagnoses Diagnosis Preeclampsia in period- Primary Insulin controlled gestational diabetes mellitus (GDM) in third trimester BMI 40.0-44.9, adult (HCC) Crohn's disease of small intestine with other complication (HCC) documented in this encounter Additional Health Concerns Infection Onset Date Last Indicated Resolved Time COVID19 05/28/2021 05/28/2021 06/10/2021 3:06 AM CONTROL CHEMIST documented as of this encounter Care Teams Locum Tenens Psychiatrist Relationship Specialty Start Date End Date Judy Fishman NP [address] [employer] [address] [place] [id number] PCP - General 07/31/18 Jessica Martínez MD [address] [employer] [address] [place] [id number] Consulting Physician Obstetrics and Gynecology 11/16/20 documented as of this encounter
--- OUTSIDE RECORDS SUMMARY | 2024-04-11 06:14 | XMS_ITS | Encounter Summary ---
Author Organization [facility] Address [address] [place] [address] Phone Care Team Providers Care Loss Prevention Research Engineer Name Role Phone Judy Fishman NP Primary Care Provider + Jessica Martínez MD Unavailable [phone] Encounter Details Date Type Department Care Team (Late st Contact Info) Description 06/07/2021 Telephone [facility] Gastroenterology [address] [facility] 12th [place] [address] [place] [address] Hermelinda Don Social History Tobacco [...] in a intermediate (including now)? No 05/31/2021 Comments No Sex and Gender Information Value Date Recorded Sex Assigned at Not on file Legal Sex Female 7:54 PM CARTON GLUING MACHINE OPERATOR Gender Identity Not on file Sexual Orientation Not on file documented as of this encounter Miscellaneous Notes * Telephone Encounter - Hermelinda Don - 06/07/2021 1:39 PM CARTON GLUING MACHINE OPERATOR Pt called in wanting clarification on vaccines. Pt states Dr. Severino told her in the officethat only needed to avoid live vaccines, but [facility] message from RN Abiola advised to avoid all vaccines whether live or not. Pt voiced concern because baby was given his Hep B vaccine (not live) before she got notice to avoid all vaccines. RU Culver stated she is waiting for Lara to send her articles for reference. Pt would like a call back brandi to discuss and confirm information. ON GLUING MACHINE OPERATOR documented in this encounter Plan of Treatment Not on file documented as of this encounter Visit Diagnoses Not on filedocumented in this encounter Additional Health Concerns Infection Onset Date Last Indicated Resolved Time COVID19 05/28/2021 05/28/2021 06/10/2021 3:06 AM CARTON GLUING MACHINE OPERATOR documented as of this encounter Care Teams Loss Prevention Research Engineer Relationship Specialty Start Date End Date Judy Fishman NP [address] [address] PCP - General 07/31/18 Jessica Martínez MD [address] [address] Consulting Physician Obstetrics and Gynecology 11/16/20 documented as of this encounter
--- OUTSIDE RECORDS SUMMARY | 2024-04-11 06:14 | XMS_ITS | Encounter Summary ---
Author Organization [facility] Address [address] [place] [address] Phone Care Team Providers Care Paper Cap Machine Operator Name Role Phone Judy Fishman NP Primary Care Provider + Jessica Martínez MD Unavailable [phone] Encounter Details Date Type Department Care Team (Late st Contact Info) Description 08/21/2021 Orders Only [facility] Cardiology [address] [facility] Advanced Medicine 8th [place] [address] [place] [address] Aleida Paiz NP [address] [facility] [address] [place] [address] Social History Tobacco Use Types Packs/Day Years [...] How often do you attend chur or mormon services? 1 to 4 times per year [...] a senior living (including now)? No 05/31/2021 [place] Depression Scale Answer Date Recorded [place] Depression Scale Total 2 07/10/2021 The thought of harming myself has occurred to me . Never 07/10/2021 Comments No Sex and Gender Information Value Date Recorded Sex Assigned at Not on file Legal Sex Female 7:54 PM ROUGH AND TRUEING MACHINE OPERATOR Gender Identity Not on file Sexual Orientation Not on file documented as of this encounter Plan of Treatment Not on file documented as of this encounter Procedures Procedure Name Priority Date/Time Associated Diagnosis Comments CLIENT EDUCATION TRACKING Routine 08/21/2021 9:23 AM CDT LIPID PANEL Routine 08/21/2021 9:23 AM CDT documented in this encounter Results * Client Education Tracking (08/21/2021 9:23 AM CDT) Client Education Tracking [facility] Comment: The Requisition we received did not include a [facility] account number. To prevent delays in testing and processing of your orders please provide the following information with every order submitted: [facility] account number and account name Client address Client phone and fax number NPI number of ordering physician along with the physician name. 08/21/2021 9:23 AM CDT 08/23/2021 1:39 AM CDT Narrative [facility] - 08/24/2021 2:26 AM CDT FASTING: UNKNOWN us Aleida Paiz CUSTODIAL ENGINEER LAB BLOOD ORDERABLES Cee l Result [facility] [address] [place] [address] * Lipid panel (08/21/2021 9:23 AM CDT) Cholesterol 150 <200 mg/dL [facility] HDL 54 > OR = 50 mg/dL [facility] Triglycerides 139 <150 mg/dL [facility] LDL 74 mg/dL (calc) [facility] Comment: Reference range: <100 Desirable range <100 mg/dL for primary prevention; ?? <70 mg/dL for patients with CHD or diabetic patients with > or = 2 CHD risk factors. LDL-C is now calculated using the Urbano calculation, which is a validated novel method providing better accuracy than the Friedewald equation in the estimation of LDL-C. Miguel ORR et al. SANCHEZ. 2013;310(19): 9516-3633 (http://education.IdeaPaint/faq/ITI435) Chol/HDL ratio 2.8 <5.0 (calc) [facility] Non-HDL, (LDL+VLDL) 96 <130 mg/dL (calc) [facility] Comment: For patients with diabetes plus 1 major ASCVD risk factor, treating to a non-HDL-C goal of <100 mg/dL (LDL-C of <70 mg/dL) is considered a therapeutic option. 08/21/2021 9:23 AM CDT 08/23/2021 1:39 AM CDT Narrative [facility] - 08/24/2021 2:26 AM CDT FASTING: UNKNOWN us Aleida Paiz CUSTODIAL ENGINEER LAB BLOOD ORDERABLES Cee yanes Result [facility] [address] [place] [address] documented in this encounter Visit Diagnoses Not on filedocumented in this encounter Additional Health Concerns Infection Onset Date Last Indicated Resolved Time COVID: Recovered Comment:Added based on recent COVID infection. 06/10/2021 06/11/2021 10/08/2021 3:05 AM C DT documented as of this encounter Care Teams Paper Cap Machine Operator Relationship Specialty Start Date End Date Judy Fishman NP [address] [address] PCP - General 07/31/18 Jessica Martínez MD [address] [address] Consulting Physician Obstetrics and Gynecology 11/16/20 documented as of this encounter
--- OUTSIDE RECORDS SUMMARY | 2024-04-11 06:14 | XMS_ITS | Encounter Summary ---
Author Organization [facility] Address [address] [place] [address] Phone Care Team Providers Care Brand Analyst Name Role Phone Judy Fishman NP Primary Care Provider + Jessica Martínez MD Unavailable [phone] Encounter Details Date Type Department Care Team (Late st Contact Info) Description 06/01/2021 Telephone [facility] Obstetrics and Gynecology [facility] [place] [address] Elena Soto Social History Tobacco [...] in a longterm (including now)? No 05/31/2021 Comments No Sex and Gender Information Value Date Recorded Sex Assigned at Not on file Legal Sex Female 7:54 PM LINING MAKER HAND Gender Identity Not on file Sexual Orientation Not on file documented as of this encounter Miscellaneous Notes * Telephone Encounter - Elena Soto - 06/01/2021 8:07 AM CST Patient is scheduled on Monday 06/05. NG MAKER HAND * Telephone Encounter - Elena Soto - 06/01/2021 8:07 AM CST ----- Message from Carolyn Gray sent at 05/31/2021 11:59 AM LINING MAKER HAND ----- Regarding: MYHEART Patient Akhil Elena, This patient will need to see Kostas Magdaleno during myheart for blood pressure. I tried to call and get her scheduled for Friday instead of Friday and was unable to reach her. If possible could you reach out and schedule her for a Friday morning zoom? Thanks so much, Carolyn NG MAKER HAND documented in this encounter Plan of Treatment Not on file documented as of this encounter Visit Diagnoses Not on filedocumented in this encounter Additional Health Concerns Infection Onset Date Last Indicated Resolved Time COVID19 05/28/2021 05/28/2021 06/10/2021 3:06 AM LINING MAKER HAND documented as of this encounter Care Teams Brand Analyst Relationship Specialty Start Date End Date Judy Fishman NP [address] [address] PCP - General 07/31/18 Jessica Martínez MD [address] [address] Consulting Physician Obstetrics and Gynecology 11/16/20 documented as of this encounter
--- OUTSIDE RECORDS SUMMARY | 2024-04-11 06:14 | XMS_ITS | Encounter Summary ---
Author Organization [facility] Address [address] [place] [address] Phone Care Team Providers Care Company Miner Blasting Name Role Phone Judy Fishman NP Primary Care Provider + Jessica Martínez MD Unavailable [phone] Encounter Details Date Type Department Care Team (Late st Contact Info) Description 09/19/2021 Orders Only [facility] Gastroenterology [address] [facility] Advanced [facility] 12th [place] [address] [place] [address] Abiola Silverman RN Social History Tobacco Use Types Packs/Day [...] often do you attend chur ch or alevism services? 1 to 4 times per year [...] in a mcc (including now)? No 05/31/2021 [place] Depression Scale Answer Date Recorded [place] Depression Scale Total 2 07/10/2021 The thought of harming myself has occurred to me . Never 07/10/2021 Comments Unknown Sex and Gender Information Value Date Recorded Sex Assigned at Not on file Legal Sex Female 7:54 PM MAGNETIC TESTER Gender Identity Not on file Sexual Orientation Not on file documented as of this encounter Progress Notes * Abiola Silverman, RU - 09/19/2021 12:18 PM CDT Updated chart to reflect [facility] coverage. entyvio therapy plan sent to precert documented in this encounter Plan of Treatment Not on file documented as of this encounter Visit Diagnoses Not on filedocumented in this encounter Additional Health Concerns Infection Onset Date Last Indicated Resolved Time COVID: Recovered Comment:Added based on recent COVID infection. 06/10/2021 06/11/2021 10/08/2021 3:05 AM C DT documented as of this encounter Care Teams Company Miner Blasting Relationship Specialty Start Date End Date Judy Fishman NP [address] [address] PCP - General 07/31/18 Jessica Martínez MD [address] [address] Consulting Physician Obstetrics and Gynecology 11/16/20 documented as of this encounter
--- OUTSIDE RECORDS SUMMARY | 2024-04-11 06:14 | XMS_ITS | Encounter Summary ---
Author Organization [facility] Address [address] [place] [address] Phone Care Team Providers Care Assistant Track And Field Coach Name Role Phone Judy Fishman NP Primary Care Provider + Jessica Martínez MD Unavailable [phone] Encounter Details Date Type Department Care Team (Late st Contact Info) Description 06/06/2021 Telephone [facility] Obstetrics and Gynecology [facility] [place] [address] Elena Soto Social History Tobacco [...] often do you attend chur ch or congregational services? 1 to 4 times per year 05/31/2021 Do you belong to any clubs o r organizations such as mormon groups, unions, fraternal or athletic groups, or [...] in a prison (including now)? No 05/31/2021 Comments No Sex and Gender Information Value Date Recorded Sex Assigned at Not on file Legal Sex Female 7:54 PM CHECK VIEWER Gender Identity Not on file Sexual Orientation Not on file documented as of this encounter Miscellaneous Notes * Telephone Encounter - Elena Soto - 06/06/2021 12:10 PM CST Patient is schedule in person on 06/12 K VIEWER * Telephone Encounter - Elena Soto - 06/06/2021 12:10 PM CST ----- Message from Elena Soto sent at 06/06/2021 12:09 PM CHECK VIEWER ----- Regarding: FW: follow up visit ----- Message ----- From: Elena Soto Sent: 06/06/2021 11:54 AM CHECK VIEWER To: Carolyn Gray Subject: RE: follow up visit Thank you, she is added to the schedule at 10:15 & 10:30. ----- Message ----- From: DannychayaCarolyn crystal Sent: 06/06/2021 11:14 AM CHECK VIEWER To: Elena Soto Subject: RE: follow up visit Ct Elena, It is okay to double book this patient for an in-person appointment. Thanks! Carolyn ----- Message ----- From: Elena Soto Sent: 06/05/2021 4:14 PM CHECK VIEWER To: Carolyn Gray Subject: FW: follow up visit Ct, This patient need an appt in [address] Magdaleno and is completely booked on 06/12, is there a time to add this patient to the schedule, looks as Smione schedule is booked as well. With the impressionthe patients are normally seen in 1 week then 2 weeks and 6 week follow up? Elena Betancourt ----- Message ----- From: Pauline Campos RN Sent: 06/05/2021 3:25 PM CHECK VIEWER To: Isreal Elmore [facility] Scheduling Pool Subject: follow up visit Liliana was seen by Dr. Collins and Dr. Magdaleno in [facility] today. She will need 1 week follow up visits with Simone and Dr. Magdaleno in my heart clinic. Thank you, Pauline K VIEWER documented in this encounter Plan of Treatment Not on file documented as of this encounter Visit Diagnoses Not on filedocumented in this encounter Additional Health Concerns Infection Onset Date Last Indicated Resolved Time COVID19 05/28/2021 05/28/2021 06/10/2021 3:06 AM CHECK VIEWER documented as of this encounter Care Teams Assistant Track And Field Coach Relationship Specialty Start Date End Date Judy Fishman NP [address] [address] PCP - General 07/31/18 Jessica Martínez MD [address] [address] Consulting Physician Obstetrics and Gynecology 11/16/20 documented as of this encounter
--- OUTSIDE RECORDS SUMMARY | 2024-04-11 06:14 | XMS_ITS | Encounter Summary ---
Author Organization [facility] Address [address] [place] [address] Phone Care Team Providers Care Package Reinspector Name Role Phone Judy Fishman NP Primary Care Provider + Jessica Martínez MD Unavailable [phone] Encounter Details Date Type Department Care Team (Late st Contact Info) Description 08/13/2021 Telephone [facility] [address] [facility] [address] [place] [address] [place] [address] Hermelinda Don Social History Tobacco [...] a skilled nursing (including now)? No 05/31/2021 [place] Depression Scale Answer Date Recorded [place] Depression Scale Total 2 07/10/2021 The thought of harming myself has occurred to me . Never 07/10/2021 Comments No Sex and Gender Information Value Date Recorded Sex Assigned at Not on file Legal Sex Female 7:54 PM ACID CONDITIONER Gender Identity Not on file Sexual Orientation Not on file documented as of this encounter Miscellaneous Notes * Telephone Encounter - Hermelinda Don - 08/13/2021 5:35 PM CDT Pt returned call. [facility] appt to 08/31 with Preethi SUPERVISOR ESTIMATOR AND DRAFTER * Telephone Encounter - Hermelinda Don - 08/13/2021 5:21 PM CDT LMOR requesting pt call back to [facility] 08/[address] Severino is ill. documented in this encounter Plan of Treatment Not on file documented as of this encounter Visit Diagnoses Not on filedocumented in this encounter Additional Health Concerns Infection Onset Date Last Indicated Resolved Time COVID: Recovered Comment:Added based on recent COVID infection. 06/10/2021 06/11/2021 10/08/2021 3:05 AM C DT documented as of this encounter Care Teams Package Reinspector Relationship Specialty Start Date End Date Judy Fishman NP [address] [address] PCP - General 07/31/18 Jessica Martínez MD [address] [address] Consulting Physician Obstetrics and Gynecology 11/16/20 documented as of this encounter
--- OUTSIDE RECORDS SUMMARY | 2024-04-11 06:14 | XMS_ITS | Encounter Summary ---
Author Organization [facility] Address [address] [facility] [address] [place] [address] Care Team Providers Care Club Manager Name Role Phone Judy Fishman ADOBE CQ DEVELOPER Primary Care Provider + Jessica Martínez MD Unavailable [phone] Reason for Visit * Reason Onset Date Comments Covid-19 Home Monitoring 06/02/2021 Encounter Details Date Type Department Care Team (Late st Contact Info) Description 06/02/2021 Telephone [facility] Organization [address] [place] [address] Rut Rolle, JOSH [address] [place] [address] Covid-19 Home Monitoring Social History Tobacco Use [...] How often do you attend chur or adventist services? 1 to 4 times per year 05/31/2021 Do you belong to any clubs o r organizations such as gnosticist groups, unions, fraternal or athletic groups, or [...] in a fdc (including now)? No 05/31/2021 Comments No Sex and Gender Information Value Date Recorded Sex Assigned at Not on file Legal Sex Female 7:54 PM ACID PLANT HELPER Gender Identity Not on file Sexual Orientation Not on file documented as of this encounter Miscellaneous Notes * Telephone Encounter - Rut Rolle LPN - 06/02/2021 1:49 PM ACID PLANT HELPER This patient is enrolled in the COVID-19 Home Monitoring Program and had not responded to the dailysymptom questionnaire. Telephonic outreach attempted to assess patient???s symptoms. Home Monitoring symptom questionnaire was not completed today, because the patient could not be reached. Symptom Questionnaire to be completed by patient tomorrow. PLANT HELPER documented in this encounter Plan of Treatment Not on file documented as of this encounter Visit Diagnoses Not on filedocumented in this encounter Additional Health Concerns Infection Onset Date Last Indicated Resolved Time COVID19 05/28/2021 05/28/2021 06/10/2021 3:06 AM ACID PLANT HELPER documented as of this encounter Care Teams Club Manager Relationship Specialty Start Date End Date Judy Fishman NP [address] [place] [address] [address] PCP - General 07/31/18 Jessica Martínez MD [address] [place] [address] Consulting Physician Obstetrics and Gynecology 11/16/20 documented as of this encounter
--- OUTSIDE RECORDS SUMMARY | 2024-04-11 06:15 | XMS_ITS | Encounter Summary ---
Author Organization [facility] Address [address] [place] [address] Phone Care Team Providers Care Communications Coordinator Name Role Phone Juyd Fishman NP Primary Care Provider + Jessica Martínez MD Unavailable [phone] Reason for Visit * Reason Comments High Risk Gestation Encounter Details Date Type Department Care Team (Late st Contact Info) Description 05/24/2021 9:30 AM VESSEL CAPTAIN Office Visit [facility] Maternal- Medicine [address] [facility] 7th Floor [address] [place] [address] Judy Polanco, BINU [address] [phone] [place], [place] [id number] Crohn's disease of small intestine with other complication (HCC) (Primary Dx); Excessive growth affecting management of in second trimester, single or unspecified fetus; Gestational diabetes mellitus (GDM) in third trimester, gestational diabetes method of control unspecified; Obesity affecting , antepartum; Prediabetes; resulting from assisted reproductive technology, antepartum; Supervision of high-risk , unspecified trimester Social History Tobacco Use Types Packs/Day Years Used Date Smoking Tobacco: Former Cigarettes Q uit: 10/03/2020 Smokeless Tobacco: Never Alcohol Use Standard Drinks/Week Comments Yes 2 (1 standard drink = 0.6 oz pur e alcohol) Comments Yes Sex and Gender Information Value Date Recorded Sex Assigned at Not on file Legal Sex Female 7:54 PM VESSEL CAPTAIN Gender Identity Not on file Sexual Orientation Not on file documented as of this encounter Last Filed Vital Signs Vital Sign Reading Time Taken Comments Blood Pressure 115/76 05/24/2021 9:33 AM VESSEL CAPTAIN Pulse 84 05/24/2021 9:33 AM VESSEL CAPTAIN Temperature - - Respiratory Rate - - Oxygen Saturation 98% 05/24/2021 9:33 AM VESSEL CAPTAIN Inhaled Oxygen Concentration - - Weight 116.1 kg (256 lb) 05/24/2021 9:33 AM VESSEL CAPTAIN Height 157.5 cm (5' 2 ) 05/24/2021 9:33 AM VESSEL CAPTAIN Body Mass Index 46.82 05/24/2021 9:33 AM VESSEL CAPTAIN documented in this encounter Progress Notes * Judy Polanco, VACUUM EVAPORATION OPERATOR - 05/24/2021 9:30 AM CST MFM Return Visit 05/25/2021 Liliana Mancilla is a 30 y.o. at 36w0d who is here for a return OB visit. Her is complicated by Crohn's disease, IVF , BMI 42, and history of prediabetes. Subjective: Continues to not sleep well and continues to have constipation. She does not find miralax to be helpful and has switched to colace. She denies contractions, loss of fluid, or vaginal bleeding and reports good movement. Denies symptoms of flare. Objective: BP 115/76 Pulse 84 Ht 157.5 cm (5' 2 ) Wt 256 lb (116.1 kg) LMP 09/15/2020 (Exact Date) SpO2 98% BMI 46.82 kg/m?? General: NAD Abdomen: Soft, gravid, NT, FHR + (reactive NST) Extremities: WWP, no edema Ultrasound: 05/25/2021 n/a Assessment/Plan: Liliana Mancilla is a 30 y.o. at 36w0d with a complicated by the following: Problem List JONNATHAN 06/21/21 Crohn's disease of small intestine with other complication (HCC) - Primary Overview Diagnosed with Crohn's disease in 2019 and has been on Entyvio (vedolizumab) since that time without any additional flares. She gets her Entyvio injections q4 weeks. Recommendations: - 1st trimester labs: B12 [328] , ferritin [125], folate [19.8], Vit D[39] - Anatomy US- complete and wnl - Serial growth US - testing starting at 32 weeks - Delivery at 39 weeks unless otherwise indicated--plan given no history of perianal disease. -Would recommend CS in the setting of perianal disease. Final infusion 2/4 at 35 weeks, will plan for infusion Current Assessment & Plan Discussed recommendation for both stool softener and laxative. Recommend she continue miralax and increase to BID or take senna and colace. Prediabetes Overview History of prediabetes with most recent A1c 5.6% (02/2020). [x] early 1hr GTT- wnl [x] Gtt at 24-28 weeks-gDM Obesity affecting , antepartum Overview Previously counseled Rrecommend a specialized anatomic survey, serial growth assessment and testing. Aspirin 81mg should be started after 12 weeks resulting from assisted reproductive technology, antepartum Overview Previously counseled [x] ECHO Excessive growth affecting management of in second trimester Overview 02/14/2021 anataomy with growth at the 98%, dating by IVF 04/12/2021 97%, 05/10/2021 95% s/p counseling Continue serial growths Recommend tight glycemic control Gestational diabetes mellitus (GDM) in third trimester Overview Failed 3 hour gtt S/p counseling 04/12/2021 Current regimen: 05/10/2021 16 units qHS Plan: Serial growths testing at 32 weeks- continue Delivery by 39 Supervision of high-risk , unspecified trimester Overview [x] Full MFM Care; [] Red Team [x] Blue Team Referring Provider: JESSICA Severino [phone] [facility] Jessica Mauricio: [phone]; [x] Dating Criteria: Embryo Transfer 10/03/20 with JONNATHAN 06/21/21 [x] Labs: Lab Results Component Value Date ABORH B Positive 11/24/2020 IDCOOMB Negative 11/24/2020 [id number] Nonreactive 11/24/2020 LABRPR Nonreactive 11/24/2020 RUBELIGG Reactive 11/24/2020 HEPBSAG Nonreactive 11/24/2020 HGB 11.1 (L) 11/24/2020 HCT 35.4 (L) 11/24/2020 LABPLAT 360 11/24/2020 [x] GC/CT- Neg/Neg [x] Genetic Screening: [place] Low Risk [x] Early 1hr GTT (if [...] dose #1 and #2 3rd Tri Labs: [] CBC/HIV/RPR: 11.3/34.9 plt, HIV and RPR [] GBS: sent today [] COVID testing: ordered on for the [place] location, pt letter sent Counselling [x] MOD: IOL scheduled on 06/13/21 at 9PM, pt letter sent [x] Place of delivery: [facility] [] MOC: [x] Method of feeding: breast [x] [place] Supervisor: [] PP Depression Discussed: [place] should not be given any live vaccines. Relevant Orders Group B streptococcal culture Vaginal/Rectal Specialty Infusion Treatment 2 Crohn's disease of small intestine with other complication (HCC) - Primary Overview Diagnosed with Crohn's disease in 2019 and has been on Entyvio (vedolizumab) since that time without any additional flares. She gets her Entyvio injections q4 weeks. Recommendations: - 1st trimester labs: B12 [328] , ferritin [125], folate [19.8], Vit D[39] - Anatomy US- complete and wnl - Serial growth US - testing starting at 32 weeks - Delivery at 39 weeks unless otherwise indicated--plan given no history of perianal disease. -Would recommend CS in the setting of perianal disease. Final infusion 2/4 at 35 weeks, will plan for infusion Current Assessment & Plan Discussed recommendation for both stool softener and laxative. Recommend she continue miralax and increase to BID or take senna and colace. PTL/PEC/FKC precautions reviewed. Reviewed the importance of presenting to her closest hospital in the case of an emergency for evaluation and if necessary and safe will be transferred to [facility] EL CAPTAIN documented in this encounter Miscellaneous Notes * Assessment & Plan Note - Judy Polanco NP - 05/25/2021 9:26 AM CSTAssociated Problem(s): Crohn's disease of small intestine with other complication (HCC) Discussed recommendation for both stool softener and laxative. Recommend she continue miralax and increase to BID or take senna and colace. EL CAPTAIN documented in this encounter Plan of Treatment Not on file documented as of this encounter Procedures Procedure Name Priority Date/Time Associated Diagnosis Comments GROUP B STREPTOCOCCUS CULTURE Routine 05/24/2021 10:16 AM VESSEL CAPTAIN Supervision of high-risk , unspecified trimester documented in this encounter Results * Group B streptococcal culture Vaginal/Rectal (05/24/2021 10:16 AM VESSEL CAPTAIN) Strep B culture, resp [facility] Comment: ??STREPTOCOCCUS, GROUP B CULTURE ?Micro Number: ?[id number] ??Test Status: ? Final ??Specimen Source: ?? Vaginal/rectal ??Specimen Quality: ??Adequate ??Result: ?No group B Streptococcus isolated ? Note per CDC guidelines optimal recovery is ? achieved by swabbing both the lower vagina and ? rectum (through the anal sphincter). Vaginal/Rectal 05/24/2021 10 :16 AM VESSEL CAPTAIN 05/25/2021 12:16 AM VESSEL CAPTAIN Judy Polanco NP LAB MICROBIOLOGY - GENERAL ORDERABLES Final Result [facility] [address] [place] [address] documented in this encounter Visit Diagnoses Diagnosis Crohn's disease of small intestine with other complication (HCC)- Primary Excessive growth affecting management of in second trimester, single or unspecified fetus Gestational diabetes mellitus (GDM) in third trimester, gestational diabetes method of control unspecified Obesity affecting , antepartum Prediabetes Other abnormal glucose resulting from assisted reproductive technology, antepartum Supervision of high-risk , unspecified trimester documented in this encounter Historical Medications * This list may reflect changes made after this encounter. docusate sodium (COLACE) 100 mg capsuleIndication s:constipation Take 100 mg by mouth 2 (two) times a day 05/31/2021 added in this encounter Care Teams Communications Coordinator Relationship Specialty Start Date End Date Judy Fishman NP [address] [address] PCP - General 07/31/18 Jessica Martínez MD [address] [address] Consulting Physician Obstetrics and Gynecology 11/16/20 documented as of this encounter
--- OUTSIDE RECORDS SUMMARY | 2024-04-11 06:15 | XMS_ITS | Encounter Summary ---
Author Organization [facility] Address [address] [place] [address] Phone Care Team Providers Care Bilingual Inside Sales Representative Name Role Phone Judy Fishman NP Primary Care Provider + Jessica Martínez MD Unavailable [phone] Reason for Referral * (Routine) - Closed Specialty Diagnoses / Procedures Referred By Contac t Referred To Contact Diagnoses Gestational diabetes mellitus (GDM) in third trimester, gestational diabetes method of control unspecified Crohn's disease of small intestine with other complication (HCC) Procedures nonstress test - Radha Clemente MD [address] [place] [address] Phone: tel: fax: [facility] (All Locations) Referral ID Status Reason Start Date Expiration Date Visits Re quested Visits Authorized [id number] Closed 05/28/2021 06/27/2022 1 1 RVISOR TUMBLING AND ROLLING Reason for Visit * Reason Comments NST/BPP Visit Encounter Details Date Type Department Care Team (Latest Contact Info) Description 05/28/2021 8:30 AM SUPERVISOR TUMBLING AND ROLLING Clinical Support [facility] Obstetrics and Gynecology [address] [place] [address] Health 7th [place] [address] Gestational diabetes mellitus (GDM) in third trimester, gestational diabetes method of control unspecified (Primary Dx); Crohn's disease of small intestine with other complication (HCC) Social History Tobacco Use Types Packs/Day Years Used Date Smoking Tobacco: Former Cigarettes Q uit: 10/03/2020 Smokeless Tobacco: Never Alcohol Use Standard Drinks/Week Comments Yes 2 (1 standard drink = 0.6 oz pur e alcohol) AUDIT-C Answer Date Recorded Q1: How often do you have a drink containing alc ohol? Never 05/28/2021 Average Number of Drinks Not on file 022 Frequency of Binge Drinking Not on file 05/15 Comments Yes Sex and Gender Information Value Date Recorded Sex Assigned at Not on file Legal Sex Female 7:54 PM SUPERVISOR TUMBLING AND ROLLING Gender Identity Not on file Sexual Orientation Not on file documented as of this encounter Last Filed Vital Signs Vital Sign Reading Time Taken Comments Blood Pressure 138/87 05/28/2021 8:56 AM SUPERVISOR TUMBLING AND ROLLING Pulse - - Temperature - - Respiratory Rate - - Oxygen Saturation - - Inhaled Oxygen Concentration - - Weight - - Height - - Body Mass Index - - documented in this encounter Plan of Treatment Not on file documented as of this encounter Procedures Procedure Name Priority Date/Time Associated Diagnosis Comments NONSTRESS TEST Routine 05/28/2021 Gestational diabetes mellitus (GDM) in third trimester, gestational diabetes method of control unspecified Crohn's disease of small intestine with other complication (HCC) documented in this encounter Results * nonstress test - (05/28/2021) Radha Clemente MD OB GYNE ORDERABLES Final R esult documented in this encounter Visit Diagnoses Diagnosis Gestational diabetes mellitus (GDM) in third trimester, gestational diabetes method of control unspecified- Primary Crohn's disease of small intestine with other complication (HCC) documented in this encounter Additional Health Concerns Infection Onset Date Last Indicated Resolved Time COVID19 05/28/2021 05/28/2021 06/10/2021 3:06 AM SUPERVISOR TUMBLING AND ROLLING documented as of this encounter Care Teams Bilingual Inside Sales Representative Relationship Specialty Start Date End Date Judy Fishman NP [address] [employer] [address] PCP - General 07/31/18 Jessica Martínez MD [address] [employer] [address] Consulting Physician Obstetrics and Gynecology 11/16/20 documented as of this encounter
--- OUTSIDE RECORDS SUMMARY | 2024-04-11 06:15 | XMS_ITS | Encounter Summary ---
Author Organization [facility] Address [address] [place] [address] Care Team Providers Care Picking Table Worker Name Role Phone Judy Fishman SEAT COVER CUTTER Primary Care Provider + Jessica Martínez MD Unavailable [phone] Encounter Details Date Type Department Care Team (Late st Contact Info) Description 03/16/2021 10:15 AM CHAIN MAKER MACHINE Lab [facility] for [facility] [address] [place] [address] Outpatient [place], [place] [id number] Crohn's disease of small intestine with other complication (HCC); Encounter for supervision of normal first in second trimester; Excessive growth affecting management of in second trimester, single or unspecified fetus; Supervision of high-risk , unspecified trimester Social History Tobacco Use Types Packs/Day Years Used Date Smoking Tobacco: Former Cigarettes Q uit: 10/03/2020 Smokeless Tobacco: Never Alcohol Use Standard Drinks/Week Comments Yes 2 (1 standard drink = 0.6 oz pur e alcohol) Comments Yes Sex and Gender Information Value Date Recorded Sex Assigned at Not on file Legal Sex Female 7:54 PM CHAIN MAKER MACHINE Gender Identity Not on file Sexual Orientation Not on file documented as of this encounter Plan of Treatment Not on file documented as of this encounter Procedures Procedure Name Priority Date/Time Associated Diagnosis Comments GTT 50GM 1HR GESTATIONAL SCREEN Routine 03/16/2021 11:17 AM CHAIN MAKER MACHINE Encounter for supervision of normal first in second trimester Excessive growth affecting management of in second trimester, single or unspecified fetus Supervision of high-risk , unspecified trimester Crohn's disease of small intestine with other complication (HCC) CBC WITHOUT DIFFERENTIAL Routine 03/16/2021 11:17 AM CHAIN MAKER MACHINE Encounter for supervision of normal first in second trimester Excessive growth affecting management of in second trimester, single or unspecified fetus Supervision of high-risk , unspecified trimester Crohn's disease of small intestine with other complication (HCC) CRP (ACUTE PHASE) Routine 03/16/2021 11: 17 AM CHAIN MAKER MACHINE Crohn's disease of small intestine with other complication (HCC) documented in this encounter Results * (ABNORMAL) CBC without differential (03/16/2021 11:17 AM CHAIN MAKER MACHINE) WBC 12.6(H) 3.8 - 9.9 K/cumm [facility] Hgb 10.7(L) 11.9 - 15.5 g/dL [facility] Hct 32.8(L) 35.6 - 45.5 % [facility] Plt 320 150 - 400 K/cumm [facility] MPV 10.5 9.1 - 12.3 fL [facility] RBC 3.94 3.90 - 5.20 M/cumm [facility] MCV 83.2 81.3 - 96.4 fL [facility] MCH 27.2 27.1 - 33.3 pg [facility] MCHC 32.6 32.3 - 35.7 g/dL [facility] RDW CV 14.1 11.1 - 14.9 % [facility] RDW SD 42.6 35.7 - 48.1 fL [facility] NRBC abs 0.00 0.00 - 0.01 K/cumm [facility] Blood 03/16/2021 11:1 7 AM CHAIN MAKER MACHINE 03/16/2021 11:57 AM CHAIN MAKER MACHINE us Erick Nava MD LAB BLOOD ORDERAB LES Final Result [facility] [place] [address] * (ABNORMAL) Glucose tolerance testing 50 gram gestational screen (03/16/2021 11:17 AM CHAIN MAKER MACHINE) GTT 50g gest screen 149(H) <=140 mg/dL [facility] Comment: Interpretive Data Used for suspected gestational diabetes. The screening test uses 50 grams of glucose with sample obtained 1 hr later. Normal range: < 140 mg/dL. A glucose value of >140 mg/dL generally indicates the need for a full diagnostic tolerance test. Reference Interval Info: Diabetes Care 2005, Vol 28. Supplement 1,S37-S42. Report of the Expert Committee on the Diagnosis and Classification of Diabetes Mellitus. Diabetes Care 2020; 43(Supplement 1):S14-31. Current interpretive data was last revised on 2020. Blood 03/16/2021 11:1 7 AM CHAIN MAKER MACHINE 03/16/2021 11:57 AM CHAIN MAKER MACHINE Erick Nava MD LAB BLOOD ORDERAB LES Final Result Performing Organization Address City/[facility]/ZIP Co de Phone Number [facility] [place] [address] * (ABNORMAL) CRP (acute phase) (03/16/2021 11:17 AM CHAIN MAKER MACHINE) CRP 39.4(H) <=10.0 mg/L [facility] Blood 03/16/2021 11:1 7 AM CHAIN MAKER MACHINE 03/16/2021 11:57 AM CHAIN MAKER MACHINE Trent Severino MD LAB BLOOD ORDERABLES Final Re sult [facility] Department [place] [employer] [address] documented in this encounter Visit Diagnoses Diagnosis Crohn's disease of small intestine with other complication (HCC) Encounter for supervision of normal first in second trimester Excessive growth affecting management of in second trimester, single or unspecified fetus Supervision of high-risk , unspecified trimester documented in this encounter Orders Lab Orders Without Results Count Last Ordered D ate First Ordered Date COMPREHENSIVE METABOLIC PANEL 1 03/16/2021 documented in this encounter Care Teams Picking Table Worker Relationship Specialty Start Date End Date Judy Fishman NP [address] [address] PCP - General 07/31/18 Jessica Martínez MD [address] [address] Consulting Physician Obstetrics and Gynecology 11/16/20 documented as of this encounter
--- OUTSIDE RECORDS SUMMARY | 2024-04-11 06:15 | XMS_ITS | Encounter Summary ---
Author Organization [facility] Healthcare Address [address] [place] [address] Care Team Providers Care Stamp Redemption Clerk Name Role Phone Judy Fishman KITCHEN OPERATOR Primary Care Provider + Jessica Martínez MD Unavailable [phone] Reason for Referral * Diagnostic Imaging (Routine) - Closed Specialty Diagnoses / Procedures Referred By Contac t Referred To Contact Diagnoses Crohn's disease of small intestine with other complication (HCC) Procedures US Ob Follow Up Judy Polanco NP [address] [facility] [phone] [place] [address] Phone: tel: fax: [facility] (All Locations) Referral ID Status Reason Start Date Expiration Date Visits Re quested Visits Authorized [id number] Closed 04/12/2021 05/12/2022 1 1 RNATIONAL GUEST COORDINATOR Reason for Visit * Diagnostic Imaging (Routine) - Closed Specialty Diagnoses / Procedures Referred By Contflora t Referred To Contact Diagnoses Crohn's disease of small intestine with other complication (HCC) Procedures US Ob Follow Up Judy Polanco NP [address] [facility] [phone] [place] [address] Phone: tel: fax: [facility] (All Locations) Referral ID Status Reason Start Date Expiration Date Visits Re quested Visits Authorized [id number] Closed 04/12/2021 05/12/2022 1 1 Encounter Details Date Type Department Care Team (Latest Contact Info) Description 05/10/2021 7:17 AM INTERNATIONAL GUEST COORDINATOR - 05/10/2021 11:59 PM INTERNATIONAL GUEST COORDINATOR Hospital Encounter [facility] Center for Outpatient [facility] - Ultrasound [address] [facility] 7th Floor, [address] [place] [address] No, Physician Judy Polanco, KITCHEN OPERATOR [address] [phone] [place] [address] Crohn's disease of small intestine with other [...] on file Legal Sex Female 7:54 PM INTERNATIONAL GUEST COORDINATOR Gender Identity Not on file Sexual Orientation Not on file documented as of this encounter Medications at Time of Discharge vedolizumab (ENTYVIO) 300 mg recon soln 5 mL (300 mg total) aspirin 81 mg enteric coated tablet Take 81 mg by mouth daily 2 blood glucose diagnostic strip Check glucose fasting and one hour after each meal 200 each 6 03/27/2021 2 calcium carbonate (TUMS ORAL) Take by mouth 2 cholecalciferol (VITAMIN D-3) 1,000 unit capsule 06/12/2020 3 diphenhydramine HCl (UNISOM, DIPHENHYDRAMINE, ORAL) Take by mouth 2 insulin NPH (HumuLIN N, NovoLIN N) 100 unit/mL (3 mL) pen for injection Inject 12 units under the skin every day at bedtime 15 mL 3 04/12/2021 2 lancets 33 gauge misc CHECK GLUCOSE FASTING AND ONE HOUR AFTER EACH MEAL 200 each 6 03/27/2021 2 pen needle, diabetic 33 gauge x 5/32 needle 1 INJECTIONS DAILY DIRECTED 200 each 3 04/12/2021 2 polyethylene glycol (MIRALAX) 17 gram packetIndication s:constipation Take 17 g by mouth daily 2 no122/iron/folic acid ( MULTI ORAL) Take by mouth daily 2 documented as of this encounter Discharge Disposition Disposition Code Departure Means Destination Discharge to home or self care documented in this encounter Plan of Treatment Not on file documented as of this encounter Procedures Procedure Name Priority Date/Time Associated Diagnosis Comments US OB FOLLOW UP Schedule Routine, Read Routine (OP Routine) 05/10/2021 7:17 AM INTERNATIONAL GUEST COORDINATOR Crohn's disease of small intestine with other complication (HCC) documented in this encounter Results * US Ob Follow Up (05/10/2021 7:17 AM INTERNATIONAL GUEST COORDINATOR) Fetus# Fetus1 VIEWPOINT Placenta Details anterior, Previa-no VIEWPOINT Estimated Weight 2,905 g&grams VIEWPOINT Presentation Vertex VIEWPOINT Anatomical Region Laterality Modality Abdomen N/A Ultrasound 05/10/2021 7:18 AM INTERNATIONAL GUEST COORDINATOR us Judy Polanco KITCHEN OPERATOR IMG OB US PROCEDURE S Final Result documented in this encounter Visit Diagnoses Diagnosis Crohn's disease of small intestine with other complication (HCC) documented in this encounter Care Teams Stamp Redemption Clerk Relationship Specialty Start Date End Date Judy Fishman NP [address] [address] PCP - General 07/31/18 Jessica Martínez MD [address] [address] Consulting Physician Obstetrics and Gynecology 11/16/20 documented as of this encounter
--- OUTSIDE RECORDS SUMMARY | 2024-04-11 06:15 | XMS_ITS | Encounter Summary ---
Author Organization [facility] Address [address] [place] [address] Phone Care Team Providers Care Wire Weaver Helper Name Role Phone Judy Fishman NP Primary Care Provider + Jessica Martínez MD Unavailable [phone] Encounter Details Date Type Department Care Team (Late st Contact Info) Description 04/25/2021 Telephone [facility] [place] [address] Arianna Campos Social History Tobacco Use Types Packs/Day Years Used Date Smoking Tobacco: Former Cigarettes Q uit: 10/03/2020 Smokeless Tobacco: Never Alcohol Use Standard Drinks/Week Comments Yes 2 (1 standard drink = 0.6 oz pur e alcohol) Comments Yes Sex and Gender Information Value Date Recorded Sex Assigned at Not on file Legal Sex Female 7:54 PM PIT TANNER Gender Identity Not on file Sexual Orientation Not on file documented as of this encounter Miscellaneous Notes * Telephone Encounter - Arianna Campos - 04/25/2021 7:50 AM CST ----- Message from Mandi Jefferson sent at 04/24/2021 3:36 PM PIT TANNER ----- Regarding: RE: NO INSURANCE I left a message to go over this with her, but haven't heard back yet. She will need to pay the $131.25 upfront for the NST and then sign a pt responsibility for her appointment that will be billed if her insurance is not re-instated. I left a note on her appointment. ----- Message ----- From: Val Aguilar B.A. Sent: 04/24/2021 3:30 PM PIT TANNER To: Arianna Campos, Mandi Elliselor, # Subject: RE: NO INSURANCE That works ----- Message ----- From: Mandi Jefferson Sent: 04/24/2021 3:02 PM PIT TANNER To: Val Aguilar B.A., Arianna Campos, # Subject: RE: NO INSURANCE Okay, she said since this was her 's employers fault, they have offered to pay the out of pocket cost, so should I just let her know she'll be billed for that and she'll pay NST upfront? ----- Message ----- From: Val Aguilar B.A. Sent: 04/24/2021 2:58 PM PIT TANNER To: Airanna Campos Mandi Jefferson, # Subject: RE: NO INSURANCE I am not sure how they would break that down either. Lets just collect for the NST for now. Thanks Elias ----- Message ----- From: Justin Marvin Sent: 04/24/2021 2:49 PM PIT TANNER To: Val Aguilar B.A., Arianna Campos, # Subject: RE: NO INSURANCE Hi there, I think for a OB consult the cpt code 46192, if it is just a [place] ob [place] [address]. Thanks, Justin Marvin ----- Message ----- From: Ronny Mandi Sent: 04/24/2021 2:43 PM PIT TANNER To: Val Aguilar B.A., Arianna Campos, # Subject: RE: NO INSURANCE So I just spoke with this patient and she said she's still waiting on the insurance to be re-instated. Since we usually bill for a global and she's had insurance during the majority of her ,I'm honestly not sure how the pricing would break down for a single visit, so I guess we could charge for an MFM consult and then the NST would be separate. The NST would be $131.25 I would just need the cpt code for the consult to perdue if that is what we decide to do. Elias do you have any other suggestions? ----- Message ----- From: Justin Marvin Sent: 04/24/2021 2:04 PM PIT TANNER To: Arianna Campos, # Subject: RE: NO INSURANCE Hi there, Can I please get pricing for this patient's appointments? Her insurance is coming back that it termed as of 02/11/2021. Thanks, Justin Marvin ----- Message ----- From: Arianna Campos Sent: 04/24/2021 1:52 PM PIT TANNER To: Justin Marvin Subject: RE: NO INSURANCE Did you forward to [facility]? ----- Message ----- From: Justin Marvin Sent: 04/24/2021 1:33 PM PIT TANNER To: Arianna Campos Subject: RE: NO INSURANCE Hi there, I would send it to [facility], bc I am showing on the portal that this plan termed on 02/11/2021. Thanks, Justin Marvin ----- Message ----- From: Arianna Campos Sent: 04/24/2021 12:08 PM PIT TANNER To: Justin Marvin Subject: RE: NO INSURANCE On phone with patient who states everything was updated. Are you able to call plan to inquire before I have her talk to [facility]? ----- Message ----- From: Justin Marvin Sent: 04/24/2021 9:00 AM PIT TANNER To: Arianna Campos Subject: RE: NO INSURANCE Hi there, She is still coming back inactive. Thanks, Justin Marvin ----- Message ----- From: Arianna Campos Sent: 04/20/2021 12:58 PM PIT TANNER To: Justin Marvin, # Subject: FW: NO INSURANCE Wilfred, Patient called back to state the laboratory cureman of the employer the insurance is through, [employer], did not submit payment for coverage. He submitted the payment today and should be active again next week. Patient was informed that the plan shows a term date of 02/11/2021, I asked that shecontact [facility] to confirm ID and group number is not different. She stated she would call the plan today and confirm. She will follow up if anything is different. I added the info back to her chart. Please rerun it on Friday. Her appt with [facility] is . Thank you, Betsey ----- Message ----- From: Arianna Campos Sent: 04/20/2021 12:43 PM PIT TANNER To: Justin Marvin, # Subject: FW: NO INSURANCE Hello, I spoke to this patient-she states there are no gaps in covereage, no job changes, no new ID cards.I informed her the [facility] [place] plan she states she has is coming up inactive. I advised her to contact the plan today and to call back with the information or send back a [employer] message. Can the plan be contacted to confirm? Thank you, Betsey ----- Message ----- From: Arianna Campos Sent: 04/20/2021 12:36 PM PIT TANNER To: Justin Marvin Subject: RE: NO INSURANCE Hello Justin, For [facility], please direct to the M scheduling pool and add me as well so there are no delays to responses as I am seafood team member. For this particular patient, I reached out to her as it looks like her insurance termed. I left a message requesting she contact [facility]. Thank you, Betsey ----- Message ----- From: Mandi Bullock Sent: 04/20/2021 11:34 AM PIT TANNER To: Justin Marvin, Occ Med Physician Admin Pool, # Subject: RE: NO INSURANCE Hello, This is an MFM patient I have attached them to this message. Mandi ----- Message ----- From: Justin Marvin Sent: 04/20/2021 10:29 AM PIT TANNER To: Occ Med Physician Admin Pool Subject: NO INSURANCE Hi there, This patient does not have any insurance attached to her visits. Can someone please update? Thanks, Justin Marvin TANNER documented in this encounter Plan of Treatment Not on file documented as of this encounter Visit Diagnoses Not on filedocumented in this encounter Care Teams Wire Weaver Helper Relationship Specialty Start Date End Date Judy Fishman NP [address] [address] PCP - General 07/31/18 Jessica Martínez MD [address] [address] Consulting Physician Obstetrics and Gynecology 11/16/20 documented as of this encounter
--- OUTSIDE RECORDS SUMMARY | 2024-04-11 06:15 | XMS_ITS | Encounter Summary ---
Author Organization [facility] Address [address] [place] [address] Phone Care Team Providers Care Regulatory Affairs Spec Name Role Phone Judy Fishman NP Primary Care Provider + Jessica Martínez MD Unavailable [phone] Reason for Visit * Episode Based Medications (Routine) - Pending Review Specialty Diagnoses / Procedures Referred By Contac t Referred To Contact Diagnoses Crohn's disease of small intestine with other complication (HCC) Procedures MD INJECTION, VEDOLIZUMAB Trent Severino MD [address] [place] [address] Phone: tel: fax: [facility] Advanced Medicine 5th [place] [address] [place] [address] Phone: tel: fax: Referral ID Status Reason Start Date Expiration Date V isits Requested Visits Authorized [id number] Pending Review 09/26/2021 09/26/2022 41 41 Encounter Details Date Type Department Care Team (Late st Contact Info) Description 03/16/2021 11:30 AM CRYPTOANALYSIS TEACHER Infusion [facility] Advanced Medicine 5th [place] [address] [place] [address] Crohn's disease of small intestine [...] on file Legal Sex Female 7:54 PM CRYPTOANALYSIS TEACHER Gender Identity Not on file Sexual Orientation Not on file documented as of this encounter Progress Notes * Hermelinda Pan RN - 03/16/2021 11:30 AM CST Patient to clinic for entyvio infusion. VSS, IV placed in LAC. Labs drawn post infusion. Premedications declined. Entyvio administered per protocol, patient tolerated infusion. Follow up in 4 weeks. Ambulatory at discharge, no concerns. TOANALYSIS TEACHER documented in this encounter Plan of [...] mL/hr, Administer over 30 Minutes, Once, On Fri03/16/21 at 1245, For 1 doseIndications:Crohn's disease of small intestine with other complication (HCC) New Bag 03/16/2021 11:50 AM CRYPTOANALYSIS TEACHER 300 mg 510 mL/hr documented in this encounter Orders Medications Ordered That Jonathan ht Not Have Been Administered Count Last Ordered Date First Ordered Date sodium chloride 0.9% flush 10 mL 1 03/16/20 21 vedolizumab (ENTYVIO) 300 mg in sodium chloride 0.9% 250 mL IVPB 1 03/16/2021 documented in this encounter Care Teams Regulatory Affairs Spec Relationship Specialty Start Date End Date Judy Fishman NP [address] [address] PCP - General 07/31/18 Jessica Martínez MD [address] [address] Consulting Physician Obstetrics and Gynecology 11/16/20 documented as of this encounter
--- OUTSIDE RECORDS SUMMARY | 2024-04-11 06:15 | XMS_ITS | Encounter Summary ---
Author Organization [facility] Address [address] [place] [address] Phone Care Team Providers Care Separator Inserter Name Role Phone Judy Fishman NP Primary Care Provider + Jessica Martínez MD Unavailable [phone] Encounter Details Date Type Department Care Team (Late st Contact Info) Description 05/18/2021 11:40 AM TIG WELDER Lab [facility] Endocrinology Metabolism and Lipid [address] [facility] Advanced Medicine 5th [place] [address] [place] [address] Crohn's disease of small intestine [...] on file Legal Sex Female 7:54 PM TIG WELDER Gender Identity Not on file Sexual Orientation Not on file documented as of this encounter Plan of Treatment Not on file documented as of this encounter Visit Diagnoses Diagnosis Crohn's disease of small intestine with other complication (HCC) documented in this encounter Care Teams Separator Inserter Relationship Specialty Start Date End Date Judy Fishman NP [address] [address] PCP - General 07/31/18 Jessica Martínez MD [address] [address] Consulting Physician Obstetrics and Gynecology 11/16/20 documented as of this encounter
--- OUTSIDE RECORDS SUMMARY | 2024-04-11 06:15 | XMS_ITS | Encounter Summary ---
Author Organization [facility] Address [address] [place] [address] Care Team Providers Care Assistant Manager Airside Operations Name Role Phone Judy Fishman WATER SUPPLY ENGINEER Primary Care Provider + Jessica Martínez MD Unavailable Encounter Details Date Type Department Care Team (Late st Contact Info) Description 05/18/2021 1:15 PM AUTOMATION DRIVER Lab [address] [address] Crohn's disease of small intestine [...] on file Legal Sex Female 7:54 PM AUTOMATION DRIVER Gender Identity Not on file Sexual Orientation Not on file documented as of this encounter Plan of Treatment Not on file documented as of this encounter Procedures Procedure Name Priority Date/Time Associated Diagnosis Comments CRP (ACUTE PHASE) Routine 05/18/2021 1:1 4 PM AUTOMATION DRIVER Crohn's disease of small intestine with other complication (HCC) documented in this encounter Results * (ABNORMAL) CRP (acute phase) (05/18/2021 1:14 PM AUTOMATION DRIVER) CRP 29.6(H) <=10.0 mg/L [facility] Blood 05/18/2021 1:14 PM AUTOMATION DRIVER 05/18/2021 1:26 PM AUTOMATION DRIVER Trent Severino MD LAB BLOOD ORDERABLES Final Re sult [facility] [address] [facility] Department [place] [address] documented in this encounter Visit Diagnoses Diagnosis Crohn's disease of small intestine with other complication (HCC) documented in this encounter Care Teams Assistant Manager Airside Operations Relationship Specialty Start Date End Date Judy Fishman NP [address] [address] PCP - General 07/31/18 Jessica Martínez MD [address] [address] Consulting Physician Obstetrics and Gynecology 11/16/20 documented as of this encounter
--- OUTSIDE RECORDS SUMMARY | 2024-04-11 06:15 | XMS_ITS | Encounter Summary ---
Author Organization [facility] Address [address] [place] [address] Phone Care Team Providers Care Retort Engineer Name Role Phone Judy Fismhan NP Primary Care Provider + Jessica Martínez MD Unavailable [phone] Reason for Visit * Cardiology (Routine) - Closed Specialty Diagnoses / Procedures Referred By Contac t Referred To Contact Diagnoses Supervision of high-risk , unspecified trimester resulting from assisted reproductive technology, antepartum Procedures Echocardiogram Judy Polanco NP [address] [facility] [id number] [place] [address] Phone: tel: fax: [facility] (All Locations) Referral ID Status Reason Start Date Expiration Date Visits Re quested Visits Authorized [id number] Closed 02/14/2021 03/16/2022 2 2 Encounter Details Date Type Department Care Team (Late st Contact Info) Description 02/23/2021 1:00 PM BUSINESS LAW PROFESSOR Office Visit [facility] [place] Pediatric Cardiology [facility] [address] [place] [address] Balwinder Li MD [facility] [address] [place] [address] resulting from in vitro fertilization in second trimester (Primary Dx) Social History Tobacco Use Types Packs/Day Years Used Date Smoking Tobacco: Former Cigarettes Q uit: 10/03/2020 Smokeless Tobacco: Never Alcohol Use Standard Drinks/Week Comments Yes 2 (1 standard drink = 0.6 oz pur e alcohol) Comments Yes Sex and Gender Information Value Date Recorded Sex Assigned at Not on file Legal Sex Female 7:54 PM BUSINESS LAW PROFESSOR Gender Identity Not on file Sexual Orientation Not on file documented as of this encounter Last Filed Vital Signs Vital Sign Reading Time Taken Comments Blood Pressure 125/78 02/23/2021 1:07 PM BUSINESS LAW PROFESSOR Pulse 84 02/23/2021 1:07 PM BUSINESS LAW PROFESSOR Temperature 36.4 ??C (97.5 ??F) 02/23/2021 1:07 PM CS T Respiratory Rate 20 02/23/2021 1:07 PM BUSINESS LAW PROFESSOR Oxygen Saturation 96% 02/23/2021 1:07 PM BUSINESS LAW PROFESSOR Inhaled Oxygen Concentration - - Weight 113.9 kg (251 lb) 02/23/2021 1:07 PM BUSINESS LAW PROFESSOR Height 157.5 cm (5' 2 ) 02/23/2021 1:07 PM BUSINESS LAW PROFESSOR Body Mass Index 45.91 02/23/2021 1:07 PM BUSINESS LAW PROFESSOR documented in this encounter Progress Notes * Balwinder Li MD - 02/23/2021 1:00 PM CST CARDIOLOGY CONSULTATION RE: Liliana Mancilla : 1990 I had the pleasure of seeing Ms. Liliana Mancilla in cardiac consultation at our [facility] clinic in [place], [place]. Liliana is a 30 y.o. female referred today for echocardiogram due to IVF pregancy. Her JONNATHAN is 06/21/2021, making the gestational age approximately 23 1/7 weeks at the time of this evaluation. She plans to deliver at [place]. She reports she is carrying a malefetus. She is accompanied by her mother. No other anomalies have been noted. Genetic testing: cffDNA normal Referring OB: Judy Polanco Past Medical History: Diagnosis Date ??? Autoimmune disorder (CMS/HCC) (HCC) ??? Crohn's disease (CMS/HCC) (HCC) Current Outpatient Medications: ??? aspirin 81 mg enteric coated tablet, Take 81 mg by mouth daily, Disp: , Rfl: ??? cholecalciferol (Vitamin D3) 1,000 unit capsule, , Disp: , Rfl: ??? diphenhydramine HCl (UNISOM, DIPHENHYDRAMINE, ORAL), Take by mouth, Disp: , Rfl: ??? vedolizumab (ENTYVIO) 300 mg recon soln, 300 mg, Disp: , Rfl: ??? no122/iron/folic acid ( MULTI ORAL), Take by mouth daily, Disp: , Rfl: ??? pyridoxine (vitamin B-6) 100 mg tablet, Take 100 mg by mouth daily (Patient not taking: Reported on 02/14/2021), Disp: , Rfl: Allergies Allergen Reactions ??? Cefdinir Swelling ??? Clindamycin Swelling ??? Povidone-Iodine Rash And chlorahexadine ??? Sulfa (Sulfonamide Antibiotics) Swelling ??? Unclassified Drug Swelling ??? Morphine Itching Family History Problem Relation Age of Onset ??? Diabetes Mother ??? Hypertension Mother ??? Cancer Mother's Sister ??? Cancer Maternal Grandmother ??? Cancer Maternal Grandfather ??? Diabetes Maternal Grandfather ??? Cancer Paternal Grandmother ??? Ulcerative colitis Paternal cousin ??? Crohn's disease Paternal cousin There is no known congenital heart disease, defects, or genetic syndromes. 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 She denies tobacco, alcohol, or illicit drug use. Vitals: 02/23/21 1307 BP: 125/78 BP Location: Right arm Patient Position: Sitting Pulse: 84 Resp: 20 Temp: 36.4 ??C (97.5 ??F) SpO2: 96% Weight: 113.9 kg (251 lb) Height: 157.5 cm (5' 2 ) Body mass index is 45.91 kg/m??. Echocardiogram: Initial echocardiogram (2D, color, Doppler) performed on a 23 1/7 week single fetus JONNATHAN (06/21/2021). Study quality is technically difficult study secondary to maternal body habitus The fetus is in the breech position. Balanced four chamber view with qualitatively normal systolic function. There is levocardia noted. Normally related great vessels. No inflow or outflow tract obstruction. No obvious VSD. No valvar regurgitation. Unobstructed aortic and ductal arches. Left aortic arch. At least 2 pulmonary veins drain normally to the LA. Normal systemic venous return. Impression and Recommendations: In summary, it is my impression that this male fetus at 23 1/7 weeks gestation has a structurally normal heart with no evidence of hemodynamically significant congenital heart disease. I do not anticipate the need for further cardiology follow-up. I discussed with Liliana the limitations of echocardiography and of this study in particular, including the inability to rule out small septal defects, mild valve abnormalities, aortic coarctation, and that there are certain cardiac structures patent in utero that normally close following delivery. Should there be concerns about this infant following delivery, we would be happy to consult and/or interpret an echocardiogram at that time. Thank you for the opportunity of consultation. Please contact me at [phone] with questions or concerns regarding these findings or recommendations. I spent a total of 30 minutes [id number] with the patient and greater than 50% of the time was spent on counseling. Sincerely, Balwinder Li MD NESS LAW PROFESSOR documented in this encounter Plan of Treatment Not on file documented as of this encounter Visit Diagnoses Diagnosis resulting from in vitro fertilization in second trimester- Primary documented in this encounter Care Teams Retort Engineer Relationship Specialty Start Date End Date Judy Fishman NP [address] [address] PCP - General 07/31/18 Jessica Martínez MD [address] [address] Consulting Physician Obstetrics and Gynecology 11/16/20 documented as of this encounter
--- OUTSIDE RECORDS SUMMARY | 2024-04-11 06:15 | XMS_ITS | Encounter Summary ---
Author Organization [facility] Address [address] [facility] [address] [place] [address] Phone Care Team Providers Care Hide Puller Name Role Phone Judy Fishman NP Primary Care Provider + Jessica Martínez MD Unavailable [phone] Reason for Visit * Reason Comments Diabetic Education * Consultation (Routine) - Closed Specialty Diagnoses / Procedures Referred By Contac t Referred To Contact Diabetes and Nutrition Services Diagnoses Diet controlled gestational diabetes mellitus (GDM) in second trimester Supervision of high-risk , unspecified trimester Obesity affecting , antepartum Erick Nava MD [address] [facility] [phone] [place] [address] Phone: tel: fax: [facility] Endocrinology Metabolism and Lipid [address] [facility] [address] [facility] [address] [place] [address] [place] [address] Phone: tel: fax: Referral ID Status Reason Start Date Expiration Date V isits Requested Visits Authorized [id number] Closed Specialty Services Required 03/27/2021 04/26/2022 30 30 Encounter Details Date Type Department Care Team (Latest Contact Info) Description 03/27/2021 3:00 PM TELESALES TEAM LEADER Clinical Support [facility] Endocrinology Metabolism and Lipid [address] [facility] [address] [facility] [address] [place] [address] [place] [address] Flor Almaguer, RD [address] [address] Diet controlled gestational diabetes mellitus (GDM) in second trimester (Primary Dx); Supervision of high-risk , unspecified trimester; Obesity affecting , antepartum Social History Tobacco Use Types Packs/Day Years Used Date Smoking Tobacco: Former Cigarettes Q uit: 10/03/2020 Smokeless Tobacco: Never Alcohol Use Standard Drinks/Week Comments Yes 2 (1 standard drink = 0.6 oz pur e alcohol) Comments Yes Sex and Gender Information Value Date Recorded Sex Assigned at Not on file Legal Sex Female 7:54 PM TELESALES TEAM LEADER Gender Identity Not on file Sexual Orientation Not on file documented as of this encounter Progress Notes * Tripp Flor Sharan, RD - 03/27/2021 3:00 PM CST Gestational Diabetes MNT Encounter Date: 03/27/2021 Referring Physician: Erick Nava MD Start Time: End Time: Total Minutes: Ms. Liliana Mancilla is a 30 y.o. female : 1990 Liliana is here for initial visit regarding her newly diagnosed Gestational Diabetes. Her is also complicated by Crohn's Disease, Prediabetes, Excessive growth. , MONTOYA and Obesity Estimated Gestational Age: 27w5d Estimated Date of Delivery: 06/21/21 -Para: Pertinent Meds: PNV Labs 3 hour GTT: Fastin 1 hour: 173 2 hour: 169 3 hour: 148 Reviewed CGM/SMBG records She is not currently testing her blood sugar. I gave her a new One Touch Verio Reflect blood glucose meter meter today and instructed her on it'suse. Her blood sugar when tested in my office today was 101 Mg/dL. This was 3.5 hours after lunch. Nutrition Assessment: ?? 30 y.o. year old patient with newly diagnosed gestational diabetes in her 27w5d week of gestation. ?? Patient with BMI of 46.27 and PPW of 250 pounds. - she lost 10 pounds in the first trimester which she has now regained. ?? Current weight is 252 for a change of + 2 lbs this . Obtained Food Recall: Breakfast: 530 am, eats breakfast in car, bagel - [employer] - cream cheese, ICE brand sparkling water, on weekends - yoruba [place] Lunch: noon brings food from home - microwave meals pizza rolls, 10-12 ( 37g carb) plus popcorn On goes out with office, Fast Food- Mr Ar[employer] - meatball sub, diet coke, Dinner: 6-630 pm mostly home cooked, last night had cheeseburger rice, cheese, 1 cup, Regular sprite, if eats out [employer], Pizza - [employer] Handtossed - 2- 3 slices Snacks: AM Snack: 930-1015 am cheese, cashews,, Afternoon Snack: chips, cookies,, HS Snack: sugar free popcicle, halloween candy, usually something sweet, Meal plan Breakfast: 30 g carbs Snack (2-3 hours post first meal): 30 gm carb Lunch (2-3 hours after morning snack: 45 g carb Afternoon snack (2 to 3 hours post lunch): 15 to 30 g carb Evening meal (2-3 hours after mid-afternoon snack): 45 g carb Bedtime snack: 0-15 g carb Nutrition Intervention: 1. Patient provided with nutrition education on above diet using verbal/written materials with emphasis on carbohydrate counting, reduced fat choices and increased use of whole grains and higher fiber foods. 2. Patient was instructed in how to determine grams of CHO in her diet using labels and provided resource materials. 3. Sample meal and snack ideas provided to patient as well as reference lists for determining gramsof carbohydrate in foods eaten. 4. Patient indicated verbal understanding. All patient questions were addressed and answered. 5. Food safety recommendations for processed lunch meats, caffeine, artificial sweetener. Additional Areas of Review ?? Purpose and frequency of monitoring BG, and when to contact health care team with results; identify glucose targets and personal targets. ?? Shown how to use the glucose meter and state when to check blood glucose levels. Given One TouchVerio Reflect blood glucose meter ?? Effect of exercise on blood glucose levels. ?? Risks of smoking, alcohol and drug use ?? Relationship between blood glucose control and outcome. ?? Risks of maternal/ complications due to diabetes. ?? Benefits of breast feeding ?? Appropriate weight gain in . ?? Post-: Future risk of diabetes to mom and baby. ?? Need for follow-up tests post . ?? Necessity of maintaining a healthy lifestyle for prevention of Type 2 diabetes. Patient was given the following: Written Meal plan, Pamphlet on Gestational diabetes Snack and meal ideas, Phone number and name of personnel manager for questions and problems. Individualized follow up assessment/education will be provided for problems related to glucose and/or weight gain pattern. Flor Almaguer RD Diabetes Education and Nutritional Counseling SALES TEAM LEADER documented in this encounter Plan of Treatment Not on file documented as of this encounter Visit Diagnoses Diagnosis Diet controlled gestational diabetes mellitus (GDM) in second trimester- Primary Supervision of high-risk , unspecified trimester Obesity affecting , antepartum documented in this encounter Orders Outpatient Referral Count Last Ordered Date Fir st Ordered Date AMB REFERRAL TO [facility] 1 03/28/2021 documented in this encounter Care Teams Hide Puller Relationship Specialty Start Date End Date Judy Fishman NP [address] [address] PCP - General 07/31/18 Jessica Martínez MD [address] [address] Consulting Physician Obstetrics and Gynecology 11/16/20 documented as of this encounter
--- OUTSIDE RECORDS SUMMARY | 2024-04-11 06:15 | XMS_ITS | Encounter Summary ---
Author Organization [facility] Address [address] [place] [address] Phone Care Team Providers Care Annealing Furnace Tender Name Role Phone Judy Fishman NP Primary Care Provider + Jessica Martínez MD Unavailable [phone] Encounter Details Date Type Department Care Team (Late st Contact Info) Description 04/17/2021 4:15 PM SIGNALS OFFICER Office Visit [facility] Gastroenterology [address] [facility] 12th [place] [address] [place] [address] Trent Severino MD [address] [place] [address] High risk medications (not anticoagulants) long-term use [...] on file Legal Sex Female 7:54 PM SIGNALS OFFICER Gender Identity Not on file Sexual Orientation Not on file documented as of this encounter Last Filed Vital Signs Vital Sign Reading Time Taken Comments Blood Pressure 128/88 04/17/2021 4:00 PM SIGNALS OFFICER Pulse 106 04/17/2021 4:00 PM SIGNALS OFFICER Temperature 36.1 ??C (97 ??F) 04/17/2021 4:00 PM SIGNALS OFFICER Respiratory Rate - - Oxygen Saturation - - Inhaled Oxygen Concentration - - Weight 115 kg (253 lb 9.6 oz) 04/17/2021 4:00 PM SIGNALS OFFICER Height 157.5 cm (5' 2 ) 04/17/2021 4:00 PM SIGNALS OFFICER Body Mass Index 46.38 04/17/2021 4:00 PM SIGNALS OFFICER documented in this encounter Progress Notes * Lizz Clark NP - 04/17/2021 4:15 PM CST Subjective NAME: Liliana Mancilla : 1990 DATE: 04/17/21 Referred here Primary Care Physician: Judy Fishman NP Consult requested by: Judy Fishman, * Chief Complaint: Crohn's disease My total encounter time on 04/17/2021 was 30 minutes which was spent in the activities documented in the note. This includes time spent prior to the visit and after the visit in direct care of the patient. This time does not include time spent in any separately reportable services. HPI Liliana Mancilla, is a 30 y.o.female who presents for follow up of her ileal crohn's disease diagnosed in July 2018 [...] was 14.??MRE 12/2019 normal . Calprotectin level . ?? She underwent in vitro fertility treatment. She is now 31 weeks . Continues to be on entyvio every 4 weeks. Her due date is June 21. Has Entyvio dose due 01/18 prior to this. ?? She is having 1 stool daily on average. Some occasional constipation. Denies any urgency of stool. Denies abdominal pain. Denies any hematochezia. Denies any nausea or vomiting. Patient Active Problem List Diagnosis Date Noted ??? Gestational diabetes mellitus (GDM) in third trimester 04/12/2021 Priority: Medium Failed 3 hour gtt S/p counseling 04/12/2021 Current regimen: NPH 12 units qHS Plan: Serial growths testing at 32 weeks Delivery by 39 ??? Excessive growth affecting management of in second trimester 02/14/2021 Priority: Medium 02/14/2021 anataomy with growth at the 98%, dating by IVF 04/12/2021 97%, s/p counseling Continue serial growths Recommend tight glycemic control ??? Supervision of high-risk , unspecified trimester 11/16/2020 [x] Full MFM Care; [] Red Team [x] Blue Team Referring Provider: JESSICA Severino [phone] [facility] Jessica Mauricio: [phone]; [x] Dating Criteria: Embryo Transfer 10/03/20 with JONNATHAN 06/21/21 [x] Labs: Lab Results Component Value Date ABORH B Positive 11/24/2020 IDCOOMB Negative 11/24/2020 [id number] Nonreactive 11/24/2020 LABRPR Nonreactive 11/24/2020 RUBELIGG Reactive 11/24/2020 HEPBSAG Nonreactive 11/24/2020 HGB 11.1 (L) 11/24/2020 HCT 35.4 (L) 11/24/2020 LABPLAT 360 11/24/2020 [x] GC/CT- Neg/Neg [x] Genetic Screening: [place] Low Risk [x] Early 1hr GTT (if [...] (Dec-Mar): pt receiving vaccine after infusion 02/14 [] Tdap (27-36wks): [x] COVID Vaccine: s/p dose #1 and #2 3rd Tri Labs: [] CBC/HIV/RPR: [] GBS: [] COVID testing: Counselling [] MOD: [x] Place of delivery: [facility] [] MOC: [] Method of feeding: [] Head Of Measurement & Insights: [] PP Depression Discussed: ??? Obesity affecting , antepartum 11/16/2020 Previously counseled Rrecommend a specialized anatomic survey, serial growth assessment and testing. Aspirin 81mg should be started after 12 weeks ??? resulting from assisted reproductive technology, antepartum 11/16/2020 Previously counseled [x] ECHO ??? NAFLD (nonalcoholic fatty liver disease) 06/12/2020 ??? BMI 40.0-44.9, adult (HCC) 06/12/2020 ??? Prediabetes 06/12/2020 History of prediabetes with most recent A1c 5.6% (02/2020). [x] early 1hr GTT- wnl [x] Gtt at 24-28 weeks-148 elevated, 3 hr GTT ordered., pt aware and to have done at [facility] in [place] ??? High risk medications (not anticoagulants) long-term use 03/30/2019 ??? Healthcare maintenance 02/14/2019 ??? Crohn's disease of small intestine with other complication (HCC) 12/01/2018 Diagnosed with Crohn's disease in 2019 and has been on Entyvio (vedolizumab) since that time without any additional flares. She gets her Entyvio injections q4 weeks. Try to time infusion prior to delivery at ~36 weeks Recommendations: - 1st trimester labs: B12 [328] , ferritin [125], folate [19.8], Vit D[39] - Anatomy US- complete and wnl - Serial growth US - testing starting at 32 weeks - Delivery at 39 weeks unless otherwise indicated--plan given no history of perianal disease. Would recommend CS in the setting of perianal disease. ??? Iron deficiency anemia due to chronic blood loss 11/13/2018 ??? Chronic diarrhea 11/08/2018 Past Medical History: Diagnosis Date ??? Autoimmune disorder (CMS/HCC) (HCC) ??? Crohn's disease (CMS/HCC) (HCC) Past Surgical History: Procedure Laterality Date ??? ANKLE FRACTURE SURGERY 2009 ??? CERVICAL BIOPSY W/ LOOP ELECTRODE EXCISION ??? CHOLECYSTECTOMY 2018 Family History Problem Relation Age of Onset ??? Diabetes Mother ??? Hypertension Mother ??? Cancer Mother's Sister ??? Cancer Maternal Grandmother ??? Cancer Maternal Grandfather ??? Diabetes Maternal Grandfather ??? Cancer Paternal Grandmother ??? Ulcerative colitis Paternal cousin ??? Crohn's disease Paternal cousin Social History Socioeconomic History ??? Marital status: Spouse name: Not on file ??? Number of children: Not on file ??? Years of education: Not on file ??? Highest education level: Not on file Occupational History ??? Not on file Tobacco Use ??? Smoking status: Former Smoker Packs/day: 0.50 Types: Cigarettes Quit date: 10/03/2020 Years since quittin.5 ??? Smokeless tobacco: Never Used Substance and Sexual Activity ??? Alcohol use: Yes Alcohol/week: 2.0 standard drinks Types: 2 Glasses of wine per week ??? Drug use: Never ??? Sexual activity: Yes Partners: Male control/protection: None Other Topics Concern ??? Not on file Social History Narrative ??? Not on file Social Determinants of Health Financial Resource Strain: Not on file Food Insecurity: Not on file Transportation Needs: Not on file Physical Activity: Not on file Stress: Not on file Social Connections: Not on file Intimate Partner Violence: Not on file Housing Stability: Not on file Allergies Allergen Reactions ??? Cefdinir Swelling ??? Clindamycin Swelling ??? Povidone-Iodine Rash And chlorahexadine ??? Sulfa (Sulfonamide Antibiotics) Swelling ??? Unclassified Drug Swelling ??? Morphine Itching Current Outpatient Medications Medication Sig Dispense Refill ??? aspirin 81 mg enteric coated tablet Take 81 mg by mouth daily ??? blood glucose diagnostic strip Check glucose fasting and one hour after each meal 200 each 6 ??? calcium carbonate-vitamin D3 1,500 mg (600 mg elemental)-1,000 unit capsule Take by mouth ??? cholecalciferol (Vitamin D3) 1,000 unit capsule ??? diphenhydramine HCl (UNISOM, DIPHENHYDRAMINE, ORAL) Take by mouth ??? insulin NPH (HumuLIN N, NovoLIN N) 100 unit/mL (3 mL) pen for injection Inject 12 units under the skin every day at bedtime 15 mL 3 ??? lancets 33 gauge misc CHECK GLUCOSE FASTING AND ONE HOUR AFTER EACH MEAL 200 each 6 ??? pen needle, diabetic 33 gauge x 5/32 needle 1 INJECTIONS DAILY DIRECTED 200 each 3 ??? no122/iron/folic acid ( MULTI ORAL) Take by mouth daily ??? vedolizumab (ENTYVIO) 300 mg recon soln 300 mg ??? pyridoxine (vitamin B-6) 100 mg tablet Take 100 mg by mouth daily (Patient not taking: Reportedon 04/17/2021) No current facility-administered medications for this visit. The new patient intake form was reviewed with the patient on @DATE@. Review of Systems: Constitutional: Negative. HENT: Negative for sore throat and trouble swallowing. Eyes: Negative. Respiratory: Negative. Cardiovascular: Negative. Gastrointestinal: See HPI Endocrine: Negative. Genitourinary: Negative. Musculoskeletal: Negative. Skin: Negative. Allergic/Immunologic: Negative. Neurological: Negative. Hematological: Negative. Psychiatric/Behavioral: Negative. Breast: Negative. Vital Signs: BP 128/88 Pulse 106 Temp 36.1 ??C (97 ??F) Ht 157.5 cm (5' 2 ) Wt 115 kg (253 lb 9.6 oz) LMP 09/15/2020 (Exact Date) BMI 46.38 kg/m?? Physical Exam: GENERAL: Well-appearing, in no [...] normal insight, memory, affect, and orientation Labs: Hospital Outpatient Visit on 04/12/2021 Component Date Value Ref Range Status ??? Fetus# 04/12/2021 Fetus1 Final ??? Placenta Details 04/12/2021 anterior, Previa-no Final ? ? Estimated Weight 04/12/2021 1,954 g&grams Final ??? Presentation 04/12/2021 Vertex Final Orders Only on 03/20/2021 Component Date Value Ref Range Status ??? Glucose, fasting 03/24/2021 84 65 - 94 mg/dL Final ? ? Glucose, 1 hour 03/24/2021 173 <180 mg/dL Final ? ? Glucose, 100g, 2 hr, pl 03/24/2021 169* <155 mg/dL Final ? ? Glucose, 100g, 3 hr, pl 03/24/2021 148* <140 mg/dL Final ??? Comment 03/24/2021 Final Hospital Outpatient Visit on 03/16/2021 Component Date Value Ref Range Status ??? Fetus# 03/16/2021 Fetus1 Final ??? Placenta Details 03/16/2021 anterior, Previa-no Final ? ? Estimated Weight 03/16/2021 1,213 g&grams Final ??? Presentation 03/16/2021 Vertex Final Lab on 03/16/2021 Component Date Value Ref Range Status ? ? CRP 03/16/2021 39.4* <=10.0 mg/L Final ? ? GTT 50g gest screen 03/16/2021 149* <=140 mg/dL Final ??? WBC 03/16/2021 12.6* 3.8 - 9.9 K/cumm Final ??? Hgb 03/16/2021 10.7* 11.9 - 15.5 g/dL Final ??? Hct 03/16/2021 32.8* 35.6 - 45.5 % Final ??? Plt 03/16/2021 320 150 - 400 K/cumm Final ??? MPV 03/16/2021 10.5 9.1 - 12.3 fL Final ??? RBC 03/16/2021 3.94 3.90 - 5.20 M/cumm Final ??? MCV 03/16/2021 83.2 81.3 - 96.4 fL Final ??? MCH 03/16/2021 27.2 27.1 - 33.3 pg Final ??? MCHC 03/16/2021 32.6 32.3 - 35.7 g/dL Final ??? RDW CV 03/16/2021 14.1 11.1 - 14.9 % Final ??? RDW SD 03/16/2021 42.6 35.7 - 48.1 fL Final ??? NRBC abs 03/16/2021 0.00 0.00 - 0.01 K/cumm Final Lab on 02/16/2021 Component Date Value Ref Range Status ? ? CRP 02/16/2021 44.2* <=10.0 mg/L Final Infusion on 02/16/2021 Component Date Value Ref Range Status ??? Total Protein 02/16/2021 6.9 6.1 - 8.4 g/dL Final ??? Albumin 02/16/2021 3.5 3.5 - 5.2 g/dL Final ??? Calcium 02/16/2021 9.4 8.6 - 10.3 mg/dL Final ??? BUN 02/16/2021 7 7 - 23 mg/dL Final ??? Total Bilirubin 02/16/2021 0.21 0.20 - 1.40 mg/dL Final ??? Alk Phos, Total 02/16/2021 76 35 - 129 IU/L Final ??? AST (SGOT) 02/16/2021 10* 11 - 47 IU/L Final ??? ALT (SGPT) 02/16/2021 7 6 - 53 IU/L Final ??? Creatinine 02/16/2021 0.53* 0.60 - 1.10 mg/dL Final ??? Sodium 02/16/2021 136 135 - 145 mmol/L Final ??? Potassium 02/16/2021 3.6 3.3 - 5.1 mmol/L Final ??? Chloride 02/16/2021 101 95 - 107 mmol/L Final ??? CO2 Content 02/16/2021 22 21 - 29 mmol/L Final ??? Glucose 02/16/2021 86 64 - 99 mg/dL Final ? ? eGFR 02/16/2021 >90.0 >60.0 mL/min/1.73 m2 Final ? ? eGFR 02/16/2021 >90.0 >60.0 mL/min/1.73 m2 Final ??? White Blood Count 02/16/2021 13.3* 3.6 - 11.2 K/uL Final ??? RBC 02/16/2021 3.88 3.63 - 4.92 M/uL Final ??? Hemoglobin 02/16/2021 10.7* 11.9 - 15.5 g/dL Final ??? Hematocrit 02/16/2021 32.3* 36.1 - 44.3 % Final ??? MCV 02/16/2021 83.1 80.0 - 97.6 fL Final ??? MCH 02/16/2021 27.6 26.7 - 33.7 pg Final ??? MCHC 02/16/2021 33.2 32.7 - 35.5 g/dL Final ??? RBC Dist Width 02/16/2021 14.8 12.3 - 17.0 % Final ??? Platelet Count 02/16/2021 309 140 - 440 K/uL Final ??? MPV 02/16/2021 9.1 6.8 - 10.4 fL Final ??? Neutrophils % 02/16/2021 69.2 38.7 - 74.5 % Final ??? Lymphocyte % 02/16/2021 25.3 20.0 - 54.3 % Final ??? Monocytes % 02/16/2021 3.7* 4.3 - 13.5 % Final ??? Eosinophils % 02/16/2021 1.2 0.0 - 6.0 % Final ??? Basophil % 02/16/2021 0.6 0.0 - 3.0 % Final ??? Absolute Neutrophil 02/16/2021 9.2* 1.8 - 6.6 K/uL Final ??? Absolute Lymphocyte 02/16/2021 3.4* 0.8 - 3.3 K/uL Final ??? Absolute Monocyte 02/16/2021 0.5 0.2 - 1.2 K/uL Final ??? Absolute Eosinophil 02/16/2021 0.2 0.0 - 0.5 K/uL Final ??? Absolute Basophil 02/16/2021 0.1 0.0 - 0.2 K/uL Final ??? Nucleated RBC % 02/16/2021 0.0 0.0 - 0.4 /100 WBC Final Hospital Outpatient Visit on 02/14/2021 Component Date Value Ref Range Status ??? Fetus# 02/14/2021 Fetus1 Final ??? Placenta Details 02/14/2021 anterior, Previa-no Final ? ? Estimated Weight 02/14/2021 592 g&grams Final ??? Presentation 02/14/2021 Breech Final Lab on 01/19/2021 Component Date Value Ref Range Status ? ? CRP 01/19/2021 34.3* <=10.0 mg/L Final Infusion on 01/19/2021 Component Date Value Ref Range Status ??? WBC 01/19/2021 11.8* 3.8 - 9.9 K/cumm Final ??? Hgb 01/19/2021 10.1* 11.9 - 15.5 g/dL Final ??? Hct 01/19/2021 30.8* 35.6 - 45.5 % Final ??? Plt 01/19/2021 305 150 - 400 K/cumm Final ??? MPV 01/19/2021 11.0 9.1 - 12.3 fL Final ??? RBC 01/19/2021 3.66* 3.90 - 5.20 M/cumm Final ??? MCV 01/19/2021 84.2 81.3 - 96.4 fL Final ??? MCH 01/19/2021 27.6 27.1 - 33.3 pg Final ??? MCHC 01/19/2021 32.8 32.3 - 35.7 g/dL Final ??? RDW CV 01/19/2021 14.0 11.1 - 14.9 % Final ??? RDW SD 01/19/2021 43.3 35.7 - 48.1 fL Final ??? NRBC abs 01/19/2021 0.00 0.00 - 0.01 K/cumm Final ??? Neutrophil abs 01/19/2021 8.4* 1.7 - 6.5 K/cumm Final ??? Imm gran abs 01/19/2021 0.1 0.0 - 0.1 K/cumm Final ??? Lymphocyte abs 01/19/2021 2.6 0.8 - 3.3 K/cumm Final ??? Monocyte abs 01/19/2021 0.6 0.2 - 0.8 K/cumm Final ??? Eosinophil abs 01/19/2021 0.2 0.0 - 0.5 K/cumm Final ??? Basophil abs 01/19/2021 0.0 0.0 - 0.1 K/cumm Final ??? Neutrophil pct 01/19/2021 70.7 % Final ??? Imm gran pct 01/19/2021 0.4 % Final ??? Lymphocyte pct 01/19/2021 22.1 % Final ??? Monocyte pct 01/19/2021 4.8 % Final ??? Eosinophil pct 01/19/2021 1.7 % Final ??? Basophil pct 01/19/2021 0.3 % Final Imaging Review none ASSESSMENT and PLAN: Crohn's disease Ding well on entyvio??to every 4 weeks. In general, 1 stool daily. Denies any hematochezia. Is 31 weeks currently -continue entyvio -continue safety labs -she is up to date on recommended vaccinations -discussed guidelines for dosing of entyvio with -follow up in 3 months ?? High risk medications High risk medications:??As with all patients taking immunosuppressive biologic therapies or immunomodulators, we provide a balanced discussion on benefits and risks associated with these medications.Regarding potential risks, we employ a strategy of active monitoring for medication related toxicities. Toxicities and risks discussed in monitoring include, but are not limited to the following: infusion reactions including anaphylaxis; bacterial, viral and fungal infections; pancreatitis; heart failure; neurologic reactions; hematologic and solid tumors malignancy including an increased risk oflymphoma and skin cancers; bone marrow toxicity including anemia, lymphopenia and immune suppression; hepatotoxicity and potential renal toxicity. Patients are actively assessed through routine laboratories (Q4 month or more frequently) which I personally review and are encouraged to contact us with any questions regarding new symptom development. No problem-specific Assessment & Plan notes found for this encounter. No follow-ups on file. Cosigned by Trent Severino MD at 06/25/2021 11:44 AM CDT ALS OFFICER Associated attestation - Trent Severino MD - 06/25/2021 11:44 AM CDT I have seen and examined the patient. I agree with the findings and plan of care as in nurse practitioner's note . documented in this encounter Plan of Treatment Not on file documented as of this encounter Visit Diagnoses Diagnosis High risk medications (not anticoagulants) long-term use- Primary Encounter for long-term (current) use of other medications Crohn's disease of small intestine with other complication (HCC) documented in this encounter Historical Medications * This list may reflect changes made after this encounter. calcium carbonate-vitamin D3 1,500 mg (600 mg elemental)-1,000 unit capsule Take by mouth 04/26/2021 added in this encounter Care Teams Annealing Furnace Tender Relationship Specialty Start Date End Date Judy Fishman NP [address] [address] PCP - General 07/31/18 Jessica Martínez MD [address] [id number] Consulting Physician Obstetrics and Gynecology 11/16/20 documented as of this encounter
--- OUTSIDE RECORDS SUMMARY | 2024-04-11 06:15 | XMS_ITS | Encounter Summary ---
Author Organization [facility] Address [address] [place] [address] Phone Care Team Providers Care Oilfield Plant And Field Operator Name Role Phone Judy Fishman NP Primary Care Provider + Jessica Martínez MD Unavailable [phone] Encounter Details Date Type Department Care Team (Late st Contact Info) Description 05/28/2021 Documentation [facility] Maternal- Medicine [address] [facility] 7th Floor [address] [place] [address] Yessi Pizarro MD [phone] [place] [address] Social History Tobacco Use Types Packs/Day Years [...] on file 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 BP at 8:30 was 145/87 on repeat 138/87. She denies any symptoms of preeclampsia. Discussed with the patient the recommendation to proceed to the [facility] for rule out preeclampsia. The patient was amendable to this plan. Sign out was given to the [facility]. Yessi Pizarro MD Maternal Medicine Fellow, PGY7 CHILLA FARMER documented in this encounter Plan of Treatment Not on file documented as of this encounter Visit Diagnoses Not on filedocumented in this encounter Care Teams Oilfield Plant And Field Operator Relationship Specialty Start Date End Date Judy Fishman NP [email or web address] [address] PCP - General 07/31/18 Jessica Martínez MD [email or web address] [address] Consulting Physician Obstetrics and Gynecology 11/16/20 documented as of this encounter
--- OUTSIDE RECORDS SUMMARY | 2024-04-11 06:15 | XMS_ITS | Encounter Summary ---
Author Organization [facility] Address [address] [place] [address] Phone Care Team Providers Care Director Statistical Programming Name Role Phone Judy Fishman NP Primary Care Provider + Jessica Martínez MD Unavailable [phone] Reason for Visit * Episode Based Medications (Routine) - Pending Review Specialty Diagnoses / Procedures Referred By Contac t Referred To Contact Diagnoses Crohn's disease of small intestine with other complication (HCC) Procedures OK INJECTION, VEDOLIZUMAB Trent Severino MD [address] [place] [address] Phone: tel: fax: [facility] Advanced Medicine 5th [place] [address] [place] [address] Phone: tel: fax: Referral ID Status Reason Start Date Expiration Date V isits Requested Visits Authorized [id number] Pending Review 09/26/2021 09/26/2022 41 41 Encounter Details Date Type Department Care Team (Late st Contact Info) Description 04/20/2021 11:30 AM ADMINISTRATION VICE PRESIDENT Infusion [facility] Advanced Medicine 5th [place] [address] [place] [address] Crohn's disease of small intestine [...] on file Legal Sex Female 7:54 PM ADMINISTRATION VICE PRESIDENT Gender Identity Not on file Sexual Orientation Not on file documented as of this encounter Last Filed Vital Signs Vital Sign Reading Time Taken Comments Blood Pressure 142/82 04/20/2021 11:52 AM ADMINISTRATION VICE PRESIDENT Pulse 61 04/20/2021 11:52 AM ADMINISTRATION VICE PRESIDENT Temperature - - Respiratory Rate 16 04/20/2021 11:52 AM ADMINISTRATION VICE PRESIDENT Oxygen Saturation - - Inhaled Oxygen Concentration - - Weight - - Height - - Body Mass Index - - documented in this encounter Progress Notes * Juan Rios, RN - 04/20/2021 11:30 AM CST Entyvio infused per protocol. No S/S of adverse reaction. VSS. Follow up scheduled. Dominic Rios RN NISTRATION VICE PRESIDENT documented in this encounter Plan of Treatment [...] mL/hr, Administer over 30 Minutes, Once, On Fri04/20/21 at 1245, For 1 doseIndications:Crohn's disease of small intestine with other complication (HCC) New Bag 04/20/2021 11:57 AM ADMINISTRATION VICE PRESIDENT 300 mg 510 mL/hr documented in this encounter Orders Medications Ordered That Jonathan ht Not Have Been Administered Count Last Ordered Date First Ordered Date sodium chloride 0.9% flush 10 mL 1 04/20/19 vedolizumab (ENTYVIO) 300 mg in sodium chloride 0.9% 250 mL IVPB 1 04/20/2021 documented in this encounter Care Teams Director Statistical Programming Relationship Specialty Start Date End Date Judy Fishman NP [address] [address] PCP - General 07/31/18 Jessica Martínez MD [address] [address] Consulting Physician Obstetrics and Gynecology 11/16/20 documented as of this encounter
--- OUTSIDE RECORDS SUMMARY | 2024-04-11 06:15 | XMS_ITS | Encounter Summary ---
Author Organization [facility] Address [address] [place] [address] Phone Care Team Providers Care Health Informatics Instructor Name Role Phone Judy Fishman NP Primary Care Provider + Jessica Martínez MD Unavailable Reason for Referral * (Routine) - Closed Specialty Diagnoses / Procedures Referred By Contac t Referred To Contact Diagnoses Gestational diabetes mellitus (GDM) in third trimester, gestational diabetes method of control unspecified Procedures nonstress test - Radha Clemente MD [address] [place] [address] Phone: tel: fax: [facility] (All Locations) Referral ID Status Reason Start Date Expiration Date Visits Re quested Visits Authorized [id number] Closed 05/07/2021 06/06/2022 1 1 STRIAL MILLWRIGHT Reason for Visit * Reason Comments NST/BPP Visit Encounter Details Date Type Department Care Team (Latest Contact Info) Description 05/07/2021 8:30 AM INDUSTRIAL MILLWRIGHT Clinical Support [facility] Obstetrics and Gynecology [address] [place] [address] Health 7th [place] [address] Gestational diabetes mellitus (GDM) in third trimester, [...] on file Legal Sex Female 7:54 PM INDUSTRIAL MILLWRIGHT Gender Identity Not on file Sexual Orientation Not on file documented as of this encounter Plan of Treatment Not on file documented as of this encounter Procedures Procedure Name Priority Date/Time Associated Diagnosis Comments NONSTRESS TEST Routine 05/07/2021 Gestational diabetes mellitus (GDM) in third trimester, gestational diabetes method of control unspecified documented in this encounter Results * nonstress test - (05/07/2021) Radha Clemente MD OB GYNE ORDERABLES Final R esult documented in this encounter Visit Diagnoses Diagnosis Gestational diabetes mellitus (GDM) in third trimester, gestational diabetes method of control unspecified- Primary documented in this encounter Care Teams Health Informatics Instructor Relationship Specialty Start Date End Date Judy Fishman NP [address] [id number] PCP - General 07/31/18 Jessica Martínez MD [address] [address] Consulting Physician Obstetrics and Gynecology 11/16/20 documented as of this encounter
--- OUTSIDE RECORDS SUMMARY | 2024-04-11 06:15 | XMS_ITS | Encounter Summary ---
Author Organization [facility] Address [address] [place] [address] Phone Care Team Providers Care Barn Operator Name Role Phone Judy Fishman NP Primary Care Provider + Jessica Martínez MD Unavailable [phone] Reason for Visit * Reason Onset Date Comments symptoms of low blood sugar. 03/30/2021 Encounter Details Date Type Department Care Team (Late st Contact Info) Description 03/30/2021 Telephone [facility] Endocrinology Metabolism and Lipid [address] [facility] Advanced Medicine 13th [place] [address] [place] [address] Flor Almaguer, CHADD [address] [facility] [address] [place] [address] symptoms of low blood sugar. 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 She said today she has something unusual happen. For Breakfast she had a bagel thin and an egg, Blood sugar before breakfast was 105 mg/dl, 1 hour , A few hours later she had a snack ofstring cheese and skinny pop, 1 hour after that 80 mg/dl with symptoms of low. she reports she broke out in a sweat and felt nauseous. She ate a piece of string cheese and went home from work. It was only after lunch that she finely started feeling better. We talked about how it sounds like she had symptoms of low despite blood sugar being in a normal range at 80. She is not currently taking any diabetes medicine that would cause her to go to low. I reviewed treatment of low blood sugar with her and that string cheese should not be her first choice. Symptoms might resolve more quickly if she has chosen a carb/sugar source instead of protein/fat. If it happens again and does not resolve quickly after eating a glucose source she should let her OB know. USINE RENTAL CLERK documented in this encounter Plan of Treatment Not on file documented as of this encounter Visit Diagnoses Not on filedocumented in this encounter Care Teams Barn Operator Relationship Specialty Start Date End Date Judy Fishman NP [address] [id number] PCP - General 07/31/18 Jessica Martínez MD [address] [address] Consulting Physician Obstetrics and Gynecology 11/16/20 documented as of this encounter
--- OUTSIDE RECORDS SUMMARY | 2024-04-11 06:15 | XMS_ITS | Encounter Summary ---
Author Organization [facility] Healthcare Address [address] [place] [address] Care Team Providers Care Gas Leak Inspector Helper Name Role Phone Judy Fishman SOLIDS CONTROL TECHNICIAN Primary Care Provider + Jessica Martínez MD Unavailable [phone] Encounter Details Date Type Department Care Team (Late st Contact Info) Description 05/28/2021 7:22 PM [facility]UMBER Anesthesia Event [address] [id number] Usman Felder MD PhD [address] [place] [address] Karan Kelly MD [address] [place] [address] Anesthesia Record Procedure Summary Procedure Name Responsible Anesthesiologist Anesthesia Start Time Anesthesia Stop Time Labor Analgesia Hawk Felder MD PhD 05/28/21192105/29/21 181 Events Date Time Event Comment 05/28/2021 192 An Start 1923 Time out - Regional 1923 Face Time 1950 An Block Induction The patie nt was reevaluated immediately before moderate or deep sedation and before anesthesia induction. 1957 Epidural Placed 05/29/2021 1614 Quick Note Team Hemorrhage called 1710 Quick Note 2u PRBC over ~1 [id number] 1812 An Stop Meds Name Total epinePHRINE 1:200,000-lidocaine 1.5 % 3 mL fentaNYL-bupivacaine preserv ative free in 0.9% sodium chloride 2 mcg/mL- 0.1 % cassette (premix) 207.13 mL fentaNYL (SUBLIMAZE) 200 mcg , bupivacaine HCl (MARCAINE) 20 mL in sodium chloride 0.9% 100 mL epidural 10 mL phenylephrine 1 mg/10 mL inj (100 mcg/mL ) 550 mcg phenylephrine infusion (100 mcg/mL) 4.55 mg LR 1,000 mL albumin human bottle 5 % 250 mL * Agents No agents on file. * Blood No blood administrations on file. Lines, Drains, and Airways Type Details Placement Removal Peripheral IV Placement Date: 05/28/21; Placement Time: 1010; Catheter Size: 18 G; Orientation: Right; Location: Hand; Site Prep: Alcohol; Inserted by: RU Larios; Insertion Attempts: 1; Patient Tolerance: Tolerated well; Removal Date: 11/09/21; Removal Time: 1051; Removal Reason: Not present on admission 05/28/21 1010 by Saima Betancur RN 11/09/21 1051 by Ellie Isbell RN Urethral Catheter Placement Date: 05/28/21; Placement Time: 1600; Inserted by: Tony Rae RN; Type: Non-latex; Balloon Size: 10 mL; Urine Returned: Yes; Removal Date: 05/29/21; Removal Time: 1540; Removal Reason: Per protocol 05/28/21 1600 by Dorene Rae RN 05/29/21 1540 by Mabel Sosa RN Epidural Placement Date: 05/28/21; Placement Time: 2011 (created via procedure documentation); 05/29/21; 221905/28/212011 by You Rodriguez MD 05/29/21 222 by Quiana Epstein RN OB Uterine Tampenade Balloon 05/29/21; 1633; CHAPPELL; 450 mL; Well; 05/30/21; 0915 05/29/21 1633 by Mabel Sosa RN 05/30/21 0915 by Kathya Lorenz RN Intentionally Retained Surgical Items 05/29/21; 1634; CHAPPELL; Vagina; 2 packs tied together; 05/30/21; 0915; Tere Becker MD 05/29/21 1634 by Mabel Sosa RN 05/30/21 0915 by Kathya Lorenz RN Urethral Catheter Placement Date: 05/29/21; Placement Time: 1634; Inserted by: Nicole GREGORY; Type: Non-latex; Balloon Size: 10 mL; Urine Returned: Yes; Removal Date: 05/30/21; Removal Time: 0915; Removal Reason: Per protocol 05/29/21 1634 by Mabel Sosa RN 05/30/21 0915 by Kathya Lorenz RN Peripheral IV Placement Date: 05/29/21; Placement Time: 1640; Catheter Size: 18 G; Orientation: Left; Location: Antecubital; Removal Date: 07/16/21 (unknown, ,not present on admission); Removal Time: 11205/29/21 1640 by Mabel Sosa RN 07/16/21 1125 by Amaya Monroe RN documented in this encounter Social History [...] week 05/31/2021 How often do you attend [facility] or congregation services? 1 to 4 times per year [...] a long term (including now)? No 05/31/2021 Comments Yes Sex and Gender Information Value Date Recorded Sex Assigned at Not on file Legal Sex Female 7:54 PM [facility]ARY PLUMBER Gender Identity Not on file Sexual Orientation Not on file documented as of this encounter OR Notes * Anesthesia Postprocedure Evaluation - Shaun Coleman MD - 05/30/2021 12:54 PM CST Patient: Liliana Mancilla Procedure Summary Date: 05/28/21 Room / Location: Anesthesia Start: 1921 Anesthesia Stop: 05/29/211812 Procedure: Labor Analgesia Diagnosis: Scheduled Providers: Responsible Provider: Usman Felder MD PhD Anesthesia Type: epidural ASA Status: 3 Anesthesia Type: epidural Last vitals BP 118/56 Pulse 94 Temp 36.4 ??C (97.6 ??F) (Oral) Resp 18 SpO2 98% Anesthesia Post Evaluation Patient location during evaluation: floor Patient participation: complete - patient participated Level of consciousness: fully awake Pain management: satisfactory to patient Cardiovascular status: acceptable Respiratory status: acceptable Hydration status: acceptable Pt is: normothermic Nausea/Vomiting status: none Comments: [...] any of these. Patient voices understanding. No complications documented. Cosigned by Syd Gutierres MD at 05/30/2021 1:56 PM SANITARY PLUMBER TARY PLUMBER TARY PLUMBER * Anesthesia Preprocedure Evaluation - Usman Felder MD PhD - 05/29/2021 12:15 AM CST Images from the original note were not included. Anesthesia Evaluation Liliana Mancilla is a 30 y.o. female * No procedures listed * * No Diagnosis Codes entered * HISTORY HPI Liliana Mancilla is a 30 y.o. female who is presenting for labor. Hx of crohns, gDM. No hypertensionor diabetes prior to . Past Medical History Information obtained from: patient. Cardiovascular Cardiac system: negative Respiratory Respiratory system: negative Hepatic / Heme + History of anemia - iron deficiency Endocrine / Other + Diabetes mellitus (gestational, 16u novalin nightly) + Obesity (BMI >30) + Rheumatological disease - Crohn's disease. Day of Surgery assessments + Possibility of assessed - known to be . PAT Summary and Plans Additional comments: ADDENDUM: NOTE: Significant cutaneous allergy with chlorhexidine in past with local rash and treatment with systemic steroids required. No airway swelling/SOB. Unsure if she has an allergy to povidone/iodine. Discussed with pharmacy and with attending physicians Farnaz - very few alternatives to chlorhexidine or povidone/iodine. Discussed risk of significant rash with patient, and patient elects to proceed. Test use of povidone/iodine on patient's left dorsal hand with no itching/rash/induration at ~6 minutes. Then proceeded with patient understanding that she may still develop a rash or reaction.. Patient Active Problem List Diagnosis ??? Chronic diarrhea ??? Iron deficiency anemia due to chronic blood loss ??? Crohn's disease of small intestine with other complication (HCC) ??? Healthcare maintenance ??? High risk medications (not anticoagulants) long-term use ??? NAFLD (nonalcoholic fatty liver disease) ??? BMI 40.0-44.9, adult (HCC) ??? Prediabetes ??? Supervision of high-risk , unspecified trimester ??? Obesity affecting , antepartum ??? resulting from assisted reproductive technology, antepartum ??? Excessive growth affecting management of in second trimester ??? Gestational diabetes mellitus (GDM) in third trimester Past Medical History: Diagnosis Date ??? Autoimmune disorder (CMS/HCC) (HCC) ??? Crohn's disease (CMS/HCC) (HCC) ??? Diabetes mellitus (HCC) GDM Past Surgical History: Procedure Laterality Date ??? ANKLE FRACTURE SURGERY 2009 ??? CERVICAL BIOPSY W/ LOOP ELECTRODE EXCISION ??? CHOLECYSTECTOMY 2018 OB History 1 Para Term AB Living SAB IAB Ectopic Multiple Live Births Allergies Allergen Reactions ??? Cefdinir Swelling ??? Clindamycin Swelling ??? Povidone-Iodine Rash And chlorahexadine ??? Sulfa (Sulfonamide Antibiotics) Swelling ??? Unclassified Drug Swelling ??? Morphine Itching Taking? Last Dose Start Date End Date Provider aspirin 81 mg enteric coated tablet 05/28/2021 -- -- Alejandro Tolentino MD blood glucose diagnostic strip 05/28/2021 03/27/21 -- Erick Nava MD Check glucose fasting and one hour after each meal Notes: MAY SUBSTITUTE BRAND PER INSURANCE NEEDS calcium carbonate (TUMS ORAL) 05/28/2021 -- -- Alejandro Tolentino MD cholecalciferol (VITAMIN D-3) 1,000 unit capsule 05/28/2021 06/12/20 -- Alejandro Tolentino MD diphenhydramine HCl (UNISOM, DIPHENHYDRAMINE, ORAL) 05/28/2021 -- -- Aeljandro Tolentino MD docusate sodium (COLACE) 100 mg capsule 05/28/2021 -- -- Alejandro Tolentino MD insulin NPH (HumuLIN N, NovoLIN N) 100 unit/mL (3 mL) pen for injection 05/27/2021 04/12/21 -- Alley Reynoso MD Inject 12 units under the skin every day at bedtime Patient taking differently: Inject 16 Units under the skin bedtime Inject 16 units under the skin every day at bedtime Notes: MAY SUBSTITUTE NOVOLIN or HUMULIN NPH or VIALS NEEDED PER INSURANCE NEEDS lancets 33 gauge misc 05/28/2021 03/27/21 -- Erick Nava MD CHECK GLUCOSE FASTING AND ONE HOUR AFTER EACH MEAL Notes: MAY SUBSTITUTE BRAND OR GAUGE PER INSURANCE NEEDS pen needle, diabetic 33 gauge x 5/32 needle 05/27/2021 04/12/21 -- Alley Reynoso MD 1 INJECTIONS DAILY DIRECTED Notes: MAY SUBSTITUTE BRAND OR GAUGE PER INSURANCE NEEDS polyethylene glycol (MIRALAX) 17 gram packet Unknown -- -- Alejandro Tolentino MD no122/iron/folic acid ( MULTI ORAL) 05/28/2021 -- -- Alejandro Tolentnio MD vedolizumab (ENTYVIO) 300 mg recon soln Past Month -- -- Alejandro Tolentino MD Current Facility-Administered Medications: ??? acetaminophen (TYLENOL) tablet 1,000 mg, 1,000 mg, oral, Q6H PRN, 1,000 mg at 05/28/212218 ??? calcium gluconate 100 mg/mL (10%) injection 1 g, 1 g, intravenous, Once PRN ??? carboprost (HEMABATE) injection 250 mcg, 250 mcg, intramuscular, Once PRN ??? dextrose (GLUTOSE) 40 % gel 15 g, 15 g, oral, Q15 Min PRN OR dextrose (D10W) 10% bolus 250 mL, 250 mL, intravenous, Q15 Min PRN ??? dextrose 5% and Lactated Ringer's infusion, 125 mL/hr, intravenous, Continuous, Last Rate: 75 mL/hr at 05/28/21 1241, 75 mL/hr at 05/28/21 1241 ??? diphenhydrAMINE (BENADRYL) injection 25 mg, 25 mg, intravenous, Q6H PRN ??? fentaNYL-bupivacaine preservative free in 0.9% sodium chloride 2 mcg/mL- 0.1 % cassette (premix), , epidural, Continuous, New Syringe/Cartridge at 05/28/212009 ??? glucagon injection 1 mg, 1 mg, intramuscular, Q30 Min PRN ??? insulin regular in 0.9% sodium chloride (MYXREDLIN) 100 unit/100 mL (1 unit/mL) infusion (premix), 0-18 Units/hr, intravenous, Titrated, Held at 05/28/21 1345 ??? Lactated Ringer's (LR) bolus 1,000 mL, 1,000 mL, intravenous, TID PRN ??? Lactated Ringer's (LR) bolus 1,000 mL, 1,000 mL, intravenous, Once, Stopped at 05/28/21 2030 ??? lidocaine PF (XYLOCAINE) 10 mg/mL (1 %) preservative free injection 100 mg, 10 mL, infiltration, Once PRN ??? loperamide (IMODIUM) capsule 2 mg, 2 mg, oral, Once PRN ??? magnesium sulfate 20 g/500 mL in water infusion (premix), 2 g/hr, intravenous, Continuous, LastRate: 50 mL/hr at 05/28/212027, 2 g/hr at 05/28/212027 ??? methylergonovine (METHERGINE) injection 0.2 mg, 0.2 mg, intramuscular, Once PRN ??? miSOPROStoL (CYTOTEC) tablet 800 mcg, 800 mcg, rectal, Once PRN ??? naloxone (NARCAN) 0.4 mg/mL injection 0.04-0.4 mg, 0.04-0.4 mg, intravenous, Once PRN ??? ondansetron ODT (ZOFRAN-ODT) disintegrating tablet 4 mg, 4 mg, oral, Q6H PRN OR ondansetron(ZOFRAN) injection 4 mg, 4 mg, intravenous, Q6H PRN ??? oxytocin (PITOCIN) injection 10 Units, 10 Units, intramuscular, Once PRN ??? oxytocin 30 unit/500 mL (0.06 unit/mL) in sodium chloride 0.9% (premix) solution, 0.5-40 milliunits/min, intravenous, Titrated, Last Rate: 20 mL/hr at 05/29/21 0000, 20 milliunits/min at 000 ??? sodium chloride 0.9% flush 0.5-20 mL, 0.5-20 mL, intra-catheter, Q8H PEARL ??? sodium chloride 0.9% flush 0.5-20 mL, 0.5-20 mL, intra-catheter, PRN, 10 mL at 05/28/21 1011 ??? sodium chloride 0.9% flush 0.5-20 mL, 0.5-20 mL, intra-catheter, Q8H PEARL ??? sodium chloride 0.9% flush 0.5-20 mL, 0.5-20 mL, intra-catheter, PRN ??? sodium chloride 0.9% flush 0.5-20 mL, 0.5-20 mL, intra-catheter, Q8H PEARL ??? sodium chloride 0.9% flush 0.5-20 mL, 0.5-20 mL, intra-catheter, PRN ??? Insert peripheral IV, , , Once AND [] Maintain IV access, , , Once AND Saline lock IV, , , Once AND sodium chloride 0.9% flush 3 mL, 3 mL, intravenous, PRN ??? sodium chloride 0.9% infusion, 30 mL/hr, intravenous, Continuous, Held at 05/28/21 1346 ??? terbutaline (BRETHINE) injection 0.125 mg, 0.125 mg, intravenous, Once PRN OR terbutaline (BRETHINE) injection 0.25 mg, 0.25 mg, subcutaneous, Once PRN ??? tranexamic acid (CYKLOKAPRON) 1,000 mg/100 mL (10 mg/mL) in sodium chloride (premix) 1,000 mg, 1,000 mg, intravenous, Once PRN Social History Tobacco Use Smoking Status Former Smoker ??? Packs/day: 0.50 ??? Types: Cigarettes ??? Quit date: 10/03/2020 ??? Years since quittin.6 Smokeless Tobacco Never Used Substance and Sexual Activity Alcohol Use Yes ??? Alcohol/week: 2.0 standard drinks ??? Types: 2 Glasses of wine per week Substance and Sexual Activity Drug Use Never Family History Problem Relation Age of Onset ??? Diabetes Mother ??? Hypertension Mother ??? Cancer Mother's Sister ??? Cancer Maternal Grandmother ??? Cancer Maternal Grandfather ??? Diabetes Maternal Grandfather ??? Cancer Paternal Grandmother ??? Ulcerative colitis Paternal cousin ??? Crohn's disease Paternal cousin PAT Physical Exam Airway Exam: Mallampati: II Cardiovascular Exam: Rate: regular Rhythm: regular Pulmonary Exam: LCTA EENT Exam: trachea midline Dental Exam: Appears intact Current state: Patient's current state is cooperative. Vitals: 05/28/21 2305 05/28/21 2310 05/28/21 2315 BP: 116/62 Pulse: 70 86 76 Resp: 18 Temp: SpO2: 100% 99% 100% PT: No results found for requested labs within last 720 hours. INR: No results found for requested labs within last 720 hours. APTT: No results found for requested labs within last 720 hours. Hgb A1C: No results found for requested labs within last 720 hours. CBC RBC: 05/28/2021: 4.04 M/cumm RDW: 05/25/2021: 13.8 % MCHC: 05/28/2021: 32.8 g/dL MCH: 05/28/2021: 27.2 pg MCV: 05/28/2021: 82.9 fL Hct: 05/28/2021: 33.5 % (L) Hgb: 05/28/2021: 11.0 g/dL (L) WBC: 05/28/2021: 14.3 K/cumm (H) MPV: 05/28/2021: 10.8 fL Platelets: 05/28/2021: 360 K/cumm RDW CV: 05/28/2021: 14.1 % RDW Sd: 05/28/2021: 41.8 fL BMP Glucose: 05/28/2021: 89 mg/dL Calcium: 05/28/2021: 9.6 mg/dL Sodium: 05/28/2021: 142 mmol/L Potassium: 05/28/2021: 3.6 mmol/L CO2: 05/28/2021: 25 mmol/L Chloride: 05/28/2021: 108 mmol/L BUN: 05/28/2021: 7 mg/dL (L) Creatinine: 05/28/2021: 0.56 mg/dL (L) DOS Physical Exam Medical history, medications, and allergies reviewed. Attestation: This PAT evaluation 05/28/2021. Airway Exam: Mallampati: II Cervical ROM: FROM TM distance: decreased Patient presents with reduced sternomental distance. Cardiovascular Exam: Rate: regular Rhythm: regular Pulmonary Exam: LCTA EENT Exam: trachea midline Dental Exam: Appears intact Skin Exam: Skin is moist. Turgor is normal. Anterior Fontanelles: Fontanelles are closed. Current state: Patient's current state is cooperative and anxious. Anesthesia Plan ASA 3 My patient is approved for the Anesthesia Controlled Medication protocol when under care of a [facility] CON[facility]TER BLOWER Planned anesthesia: Epidural Postoperative Plan: Postoperative administration opioids intended. No postoperative mechanical ventilation intended. Patient's planned disposition post procedure is Floor. Informed Consent: Discussed plan with resident. Anesthesia plan and risks discussed with patient. Plan and Consent Comments: Discussed risks, benefits, alternatives to neuraxial analgesia, including but not limited to hypotension, PDPH, risk of prolonged or permanent numbness/weakness/paralysis, bleeding, infection, and possible need to convert to GETA. Pt voiced understanding and acceptance of risks and a desire to proceed with labor neuraxial analgesia. Consent and Attending signature: I and/or my designee have discussed the anesthesia plan, benefits, possible alternatives, parental presence at time of induction (if indicated), and clinically relevant risks that may include dental injury, unintentional awareness, and/or other complications. The patient and/or parent/legal guardian understand, and agree to proceed. All questions answered. TARY PLUMBER * Anesthesia Procedure Notes - You Rodriguez MD - 05/28/2021 7:59 PM CSTAssociated Order(s): Epidural Block Epidural Block Patient location: L&D Reason for block: labor analgesia Staff: Supervising provider: Usman Felder MD PhD Placed by: Anesthesiologist: Usman Felder MD PhD Resident: You Rodriguez MD Procedure prep: Preprocedure checklist: patient identified, procedure contraindications assessed, procedure consentobtained, surgical consent, IV checked, risks, benefits and alternatives discussed, monitors and equipment checked and timeout performed Patient Position: sitting Procedure performed while patient: awake Monitoring: ECG, oximetry and blood pressure Prep solution: chlorhexadine/alcohol PPE: provider hat/mask, sterile gloves and sterile drape Skin infiltrated with lidocaine 1%: yes Epidural: Approach: midline Imaging guidance used: no Location: L3-4 Number of attempts:1 Epidural needle: Injection technique: GREGORIA saline Needle type: Tuohy Needle gauge: 18 G Needle length: 9 cm Loss of resistance: 7 cm Catheter: Catheter type: multi-orifice. Catheter at skin depth: 15 cm Negative aspiration of blood: no Negative aspiration of CSF: no Test dose: negative Assessment: Sensory level - left: full eval pending Sensory level - right: full eval pending Events: patient tolerated procedure well with no complications Additional comments: NOTE: Significant cutaneous allergy with chlorhexidine in past with local rashand treatment with systemic steroids required. No airway swelling/SOB. Unsure if she has an allergyto povidone/iodine. Discussed with pharmacy and with attending physicians Farnaz - very few alternatives to chlorhexidine or povidone/iodine. Discussed risk of significant rash with patient, and patient elects to proceed. Test use of povidone/iodine on patient's left dorsal hand with no itching/rash/induration at ~6 minutes. Then proceeded with patient understanding that she may still develop a rash or reaction. Difficult epidural with 2 attempts by senior resident and 3 attempts b y attending. Significant cranial angle needed. TARY PLUMBER * Anesthesia Preprocedure Evaluation - You Rodriguez MD - 05/28/2021 12:19 PM CST Images from the original note were not included. Anesthesia Evaluation Liliana Mancilla is a 30 y.o. female * No procedures listed * * No Diagnosis Codes entered * HISTORY HPI Liliana Mancilla is a 30 y.o. female who is presenting for labor. Hx of crohns, gDM. No hypertensionor diabetes prior to . Past Medical History Information obtained from: patient. Cardiovascular Cardiac system: negative Respiratory Respiratory system: negative Hepatic / Heme + History of anemia - iron deficiency Endocrine / Other + Diabetes mellitus (gestational, 16u novalin nightly) + Obesity (BMI >30) + Rheumatological disease - Crohn's disease. Day of Surgery assessments + Possibility of assessed - known to be . PAT Summary and Plans Additional comments: ADDENDUM: NOTE: Significant cutaneous allergy with chlorhexidine in past with local rash and treatment with systemic steroids required. No airway swelling/SOB. Unsure if she has an allergy to povidone/iodine. Discussed with pharmacy and with attending physicians Farnaz - very few alternatives to chlorhexidine or povidone/iodine. Discussed risk of significant rash with patient, and patient elects to proceed. Test use of povidone/iodine on patient's left dorsal hand with no itching/rash/induration at ~6 minutes. Then proceeded with patient understanding that she may still develop a rash or reaction.. Patient Active Problem List Diagnosis ??? Chronic diarrhea ??? Iron deficiency anemia due to chronic blood loss ??? Crohn's disease of small intestine with other complication (HCC) ??? Healthcare maintenance ??? High risk medications (not anticoagulants) long-term use ??? NAFLD (nonalcoholic fatty liver disease) ??? BMI 40.0-44.9, adult (HCC) ??? Prediabetes ??? Supervision of high-risk , unspecified trimester ??? Obesity affecting , antepartum ??? resulting from assisted reproductive technology, antepartum ??? Excessive growth affecting management of in second trimester ??? Gestational diabetes mellitus (GDM) in third trimester Past Medical History: Diagnosis Date ??? Autoimmune disorder (CMS/HCC) (HCC) ??? Crohn's disease (CMS/HCC) (HCC) ??? Diabetes mellitus (HCC) GDM Past Surgical History: Procedure Laterality Date ??? ANKLE FRACTURE SURGERY 2009 ??? CERVICAL BIOPSY W/ LOOP ELECTRODE EXCISION ??? CHOLECYSTECTOMY 2018 OB History 1 Para Term AB Living SAB IAB Ectopic Multiple Live Births Allergies Allergen Reactions ??? Cefdinir Swelling ??? Clindamycin Swelling ??? Povidone-Iodine Rash And chlorahexadine ??? Sulfa (Sulfonamide Antibiotics) Swelling ??? Unclassified Drug Swelling ??? Morphine Itching Taking? Last Dose Start Date End Date Provider aspirin 81 mg enteric coated tablet 05/28/2021 -- -- Alejandro Tolentino MD blood glucose diagnostic strip 05/28/2021 03/27/21 -- Erick Nava MD Check glucose fasting and one hour after each meal Notes: MAY SUBSTITUTE BRAND PER INSURANCE NEEDS calcium carbonate (TUMS ORAL) 05/28/2021 -- -- Alejandro Tolentino MD cholecalciferol (VITAMIN D-3) 1,000 unit capsule 05/28/2021 06/12/20 -- Alejandro Tolentino MD diphenhydramine HCl (UNISOM, DIPHENHYDRAMINE, ORAL) 05/28/2021 -- -- Alejandro Tolentino MD docusate sodium (COLACE) 100 mg capsule 05/28/2021 -- -- Alejandro Tolentino MD insulin NPH (HumuLIN N, NovoLIN N) 100 unit/mL (3 mL) pen for injection 05/27/2021 04/12/21 -- Alley Reynoso MD Inject 12 units under the skin every day at bedtime Patient taking differently: Inject 16 Units under the skin bedtime Inject 16 units under the skin every day at bedtime Notes: MAY SUBSTITUTE NOVOLIN or HUMULIN NPH or VIALS NEEDED PER INSURANCE NEEDS lancets 33 gauge misc 05/28/2021 03/27/21 -- Erick Nava MD CHECK GLUCOSE FASTING AND ONE HOUR AFTER EACH MEAL Notes: MAY SUBSTITUTE BRAND OR GAUGE PER INSURANCE NEEDS pen needle, diabetic 33 gauge x 5/32 needle 05/27/2021 04/12/21 -- Alley Reynoso MD 1 INJECTIONS DAILY DIRECTED Notes: MAY SUBSTITUTE BRAND OR GAUGE PER INSURANCE NEEDS polyethylene glycol (MIRALAX) 17 gram packet Unknown -- -- Alejandro Tolentino MD no122/iron/folic acid ( MULTI ORAL) 05/28/2021 -- -- Alejandro Tolentino MD vedolizumab (ENTYVIO) 300 mg recon soln Past Month -- -- Provider, MD Alejandro Current Facility-Administered Medications: ??? sodium chloride 0.9% flush 0.5-20 mL, 0.5-20 mL, intra-catheter, Q8H PEARL ??? sodium chloride 0.9% flush 0.5-20 mL, 0.5-20 mL, intra-catheter, PRN, 10 mL at 05/28/21 1011 Social History Tobacco Use Smoking Status Former Smoker ??? Packs/day: 0.50 ??? Types: Cigarettes ??? Quit date: 10/03/2020 ??? Years since quittin.6 Smokeless Tobacco Never Used Substance and Sexual Activity Alcohol Use Yes ??? Alcohol/week: 2.0 standard drinks ??? Types: 2 Glasses of wine per week Substance and Sexual Activity Drug Use Never Family History Problem Relation Age of Onset ??? Diabetes Mother ??? Hypertension Mother ??? Cancer Mother's Sister ??? Cancer Maternal Grandmother ??? Cancer Maternal Grandfather ??? Diabetes Maternal Grandfather ??? Cancer Paternal Grandmother ??? Ulcerative colitis Paternal cousin ??? Crohn's disease Paternal cousin PAT Physical Exam Airway Exam: Mallampati: II Cardiovascular Exam: Rate: regular Rhythm: regular Pulmonary Exam: LCTA EENT Exam: trachea midline Dental Exam: Appears intact Current state: Patient's current state is cooperative. Vitals: 05/28/21 1100 05/28/21 1120 05/28/21 1201 BP: 103/60 136/84 Pulse: 83 82 96 Resp: Temp: SpO2: 96% 98% PT: No results found for requested labs within last 720 hours. INR: No results found for requested labs within last 720 hours. APTT: No results found for requested labs within last 720 hours. Hgb A1C: No results found for requested labs within last 720 hours. CBC RBC: 05/28/2021: 4.04 M/cumm RDW: 05/18/2021: 14.7 % MCHC: 05/28/2021: 32.8 g/dL MCH: 05/28/2021: 27.2 pg MCV: 05/28/2021: 82.9 fL Hct: 05/28/2021: 33.5 % (L) Hgb: 05/28/2021: 11.0 g/dL (L) WBC: 05/28/2021: 14.3 K/cumm (H) MPV: 05/28/2021: 10.8 fL Platelets: 05/28/2021: 360 K/cumm RDW CV: 05/28/2021: 14.1 % RDW Sd: 05/28/2021: 41.8 fL BMP Glucose: 05/28/2021: 94 mg/dL Calcium: 05/28/2021: 9.6 mg/dL Sodium: 05/28/2021: 142 mmol/L Potassium: 05/28/2021: 3.6 mmol/L CO2: 05/28/2021: 25 mmol/L Chloride: 05/28/2021: 108 mmol/L BUN: 05/28/2021: 7 mg/dL (L) Creatinine: 05/28/2021: 0.56 mg/dL (L) TARY PLUMBER TARY PLUMBER documented in this encounter Plan of Treatment Not on file documented as of this encounter Procedures Procedure Name Priority Date/Time Associated Diagnosis Comments ANESTHESIA EPIDURAL BLOCK Routine 05/28/2021 7:59 PM SANITARY PLUMBER documented in this encounter Results * Epidural Block (05/28/2021 7:59 PM SANITARY PLUMBER) Narrative You Rodriguez MD - 05/28/2021 7:59 PM SANITARY PLUMBER You Rodriguez MD ? 05/28/2021 ??8:12 PM Epidural Block Patient location: L&D Reason for block: labor analgesia Staff: Supervising provider: Usman Felder MD PhD Placed by: Anesthesiologist: Usman Felder MD PhD Resident: You Rodriguez MD Procedure prep: Preprocedure checklist: patient identified, procedure contraindications assessed, procedure consent obtained, surgical consent, IV checked, risks, benefits and alternatives discussed, monitors and equipment checked and timeout performed Patient Position: sitting Procedure performed while patient: awake Monitoring: ECG, oximetry and blood pressure Prep solution: chlorhexadine/alcohol PPE: provider hat/mask, sterile gloves and sterile drape Skin infiltrated with lidocaine 1%: yes Epidural: Approach: midline Imaging guidance used: no Location: L3-4 Number of attempts:1 Epidural needle: Injection technique: GREGORIA saline Needle type: Tuohy Needle gauge: 18 G Needle length: 9 cm Loss of resistance: 7 cm Catheter: Catheter type: multi-orifice. Catheter at skin depth: 15 cm Negative aspiration of blood: no Negative aspiration of CSF: no Test dose: negative Assessment: Sensory level - left: full eval pending Sensory level - right: full eval pending Events: patient tolerated procedure well with no complications Additional comments: NOTE: Significant cutaneous allergy with chlorhexidine in past with local rash and treatment with systemic steroids required. No airway swelling/SOB. Unsure if she has an allergy to povidone/iodine. Discussed with pharmacy and with attending physicians Farnaz - very few alternatives to chlorhexidine or povidone/iodine. Discussed risk of significant rash with patient, and patient elects to proceed. Test use of povidone/iodine on patient's left dorsal hand with no itching/rash/induration at ~6 minutes. Then proceeded with patient understanding that she may still develop a rash or reaction. Difficult epidural with 2 attempts by senior resident and 3 attempts by attending. Significant cranial angle needed. You Rodriguez MD ANESTHESIA ORDERABLES Fi nal Result documented in this encounter Visit Diagnoses Not on filedocumented in this encounter Administered Medications Inactive Administered Medications - up to 3 most recent administrations Medication Order MAR Action Action Date Dose Rate Site albumin 5 % bottle intravenous, Continuous PRN, Starting on Fri05/29/21 at 1745, Anesthesia Intra-op New Bag 05/29/2021 5:45 PM SANITARY PLUMBER fentaNYL (SUBLIMAZE) 200 mcg, bupivacaine HCl (MARCAINE) 20 mL in sodium chloride 0.9% 100 mL epidural epidural, Continuous PRN, Starting on Fri05/28/21 at 1958, Anesthesia Intra-op New Bag 05/28/2021 7:58 PM SANITARY PLUMBER 10 mL fentaNYL-bupivacaine preservative free in 0.9% sodium chloride 2 mcg/mL- 0.1 % cassette (premix) Continuous Rate: 10 mL/hr, Patient Bolus Dose: other (comment) / 6 mL, Lockout Interval: 15 Minutes, epidural, Continuous, Starting on Fri05/28/21 at 2230, Until Fri05/29/21 at 2349, 100 mL, Indications: Pain, Stop epidural infusion after placental delivery and any indicated repair is complete., RoutineIndications:Pain Rate/Dose Change 05/29/2021 4:19 PM SANITARY PLUMBER 2 mL/hr 2 mL/hr New Syringe/Cartridge 05/29/2021 2:45 PM SANITARY PLUMBER New Syringe/Cartridge 05/29/2021 8:05 AM SANITARY PLUMBER 100 mL Lactated Ringer's (LR) infusion intravenous, Continuous PRN, Starting on Fri05/29/21 at 1620, Anesthesia Intra-op New Bag 05/29/2021 4:20 PM SANITARY PLUMBER lidocaine-EPINEPHrine (XYLOCAINE with EPI) 1.5 %-1:200,000 preservative free injection epidural, As needed, Starting on Fri05/28/21 at 1958, Anesthesia Intra-op, Indications: Administration of Local AnesthesiaIndications:Administration of Local Anesthesia Given 05/28/2021 7:58 PM SANITARY PLUMBER 3 mL phenylephrine (COCO-SYNEPHRINE) 1 mg/10 mL (100 mcg/mL) in sodium chloride 0.9% (premix) intravenous, As needed, Starting on Fri05/29/21 at 1621, Anesthesia Intra-op Given 05/29/2021 4:35 PM SANITARY PLUMBER 200 mcg Given 05/29/2021 4:29 PM SANITARY PLUMBER 200 mcg Given 05/29/2021 4:21 PM SANITARY PLUMBER 150 mcg phenylephrine (COCO-SYNEPHRINE) 5 mg/50 mL (100 mcg/mL) in sodium chloride 0.9% (premix) intravenous, Continuous PRN, Starting on Fri05/29/21 at 1637, Anesthesia Intra-op Rate/Dose Change 05/29/2021 5:32 PM SANITARY PLUMBER 0.3 mcg/kg/min 21.546 mL/hr Rate/Dose Change 05/29/2021 5:16 PM SANITARY PLUMBER 0.5 mcg/kg/min 35. 91 mL/hr Rate/Dose Change 05/29/2021 4:46 PM SANITARY PLUMBER 0.8 mcg/kg/min 57. 456 mL/hr documented in this encounter Additional Health Concerns Infection Onset Date Last Indicated Resolved Time COVID19 05/28/2021 05/28/2021 06/10/2021 3:06 AM SANITARY PLUMBER documented as of this encounter Care Teams Gas Leak Inspector Helper Relationship Specialty Start Date End Date Judy Fishman NP [address] [address] PCP - General 07/31/18 Jessica Martínez MD [address] [address] Consulting Physician Obstetrics and Gynecology 11/16/20 documented as of this encounter
--- OUTSIDE RECORDS SUMMARY | 2024-04-11 06:15 | XMS_ITS | Encounter Summary ---
Author Organization [facility] Healthcare Address [address] [place] [address] Care Team Providers Care Fast Food Services Manager Name Role Phone Judy Fishman SENIOR C SOFTWARE DEVELOPER Primary Care Provider + Jessica Martínez MD Unavailable [phone] Encounter Details Date Type Department Care Team (Late st Contact Info) Description 02/16/2021 1:50 PM CDT Lab [address] [address] Crohn's disease of small intestine [...] on file Legal Sex Female 7:54 PM MUSIC ORCHESTRATOR Gender Identity Not on file Sexual Orientation Not on file documented as of this encounter Plan of Treatment Not on file documented as of this encounter Procedures Procedure Name Priority Date/Time Associated Diagnosis Comments CRP (ACUTE PHASE) Routine 02/16/2021 1:4 6 PM CDT Crohn's disease of small intestine with other complication (HCC) documented in this encounter Results * (ABNORMAL) CRP (acute phase) (02/16/2021 1:46 PM CDT) CRP 44.2(H) <=10.0 mg/L [facility] Blood 02/16/2021 1:46 PM CDT 02/16/2021 2:09 PM CDT Trent Severino MD LAB BLOOD ORDERABLES Final Re sult [facility] [place] [address] documented in this encounter Visit Diagnoses Diagnosis Crohn's disease of small intestine with other complication (HCC) documented in this encounter Care Teams Fast Food Services Manager Relationship Specialty Start Date End Date Judy Fishman NP [address] [address] PCP - General 07/31/18 Jessica Martínez MD [address] [address] Consulting Physician Obstetrics and Gynecology 11/16/20 documented as of this encounter
--- OUTSIDE RECORDS SUMMARY | 2024-04-11 06:15 | XMS_ITS | Encounter Summary ---
Author Organization [facility] Address [address] [place] [address] Phone Care Team Providers Care Life Underwriter Name Role Phone Judy Fishman NP Primary Care Provider + Jessica Martínez MD Unavailable [phone] Reason for Referral * (Routine) - Closed Specialty Diagnoses / Procedures Referred By Contac t Referred To Contact Diagnoses Gestational diabetes mellitus (GDM) in third trimester, gestational diabetes method of control unspecified Crohn's disease of small intestine with other complication (HCC) Procedures nonstress test - Radha Clemente MD [address] [place] [address] Phone: tel: fax: [facility] (All Locations) Referral ID Status Reason Start Date Expiration Date Visits Re quested Visits Authorized [id number] Closed 05/21/2021 06/20/2022 1 1 MANAGEMENT SPECIALIST Reason for Visit * Reason Comments Non-stress Test Encounter Details Date Type Department Care Team (Latest Contact Info) Description 05/21/2021 9:00 AM CASH MANAGEMENT SPECIALIST Clinical Support [facility] Obstetrics and Gynecology [address] [place] [address] Outpatient Health 7th [place] [address] Gestational diabetes mellitus (GDM) in third trimester, [...] on file Legal Sex Female 7:54 PM CASH MANAGEMENT SPECIALIST Gender Identity Not on file Sexual Orientation Not on file documented as of this encounter Plan of Treatment Not on file documented as of this encounter Procedures Procedure Name Priority Date/Time Associated Diagnosis Comments NONSTRESS TEST Routine 05/21/2021 Gestational diabetes mellitus (GDM) in third trimester, gestational diabetes method of control unspecified Crohn's disease of small intestine with other complication (HCC) documented in this encounter Results * nonstress test - (05/21/2021) Radha Clemente MD OB GYNE ORDERABLES Final R esult documented in this encounter Visit Diagnoses Diagnosis Gestational diabetes mellitus (GDM) in third trimester, gestational diabetes method of control unspecified- Primary Crohn's disease of small intestine with other complication (HCC) documented in this encounter Care Teams Life Underwriter Relationship Specialty Start Date End Date Judy Fishman NP [address] [address] PCP - General 07/31/18 Jessica Martínez MD [address] [address] Consulting Physician Obstetrics and Gynecology 11/16/20 documented as of this encounter
--- OUTSIDE RECORDS SUMMARY | 2024-04-11 06:15 | XMS_ITS | Encounter Summary ---
Author Organization [facility] Address [address] [place] [address] Phone Care Team Providers Care Corner Cutter Machine Operator Name Role Phone Judy Fishman NP Primary Care Provider + Jessica Martínez MD Unavailable [phone] Encounter Details Date Type Department Care Team (Late st Contact Info) Description 04/20/2021 Telephone [facility] Obstetrics and Gynecology [facility] [place] [address] Arianna Campos Social History Tobacco Use Types Packs/Day Years Used Date Smoking Tobacco: Former Cigarettes Q uit: 10/03/2020 Smokeless Tobacco: Never Alcohol Use Standard Drinks/Week Comments Yes 2 (1 standard drink = 0.6 oz pur e alcohol) Comments Yes Sex and Gender Information Value Date Recorded Sex Assigned at Not on file Legal Sex Female 7:54 PM SET UP TECHNICIAN Gender Identity Not on file Sexual Orientation Not on file documented as of this encounter Miscellaneous Notes * Telephone Encounter - Arianna Campos - 04/20/2021 12:38 PM CST Telephone call made to patient regarding insurance termed. No answer; message left on voicemail as well as Mychart message sent-requesting she contact [facility] Scheduling today. UP TECHNICIAN documented in this encounter Plan of Treatment Not on file documented as of this encounter Visit Diagnoses Not on filedocumented in this encounter Care Teams Corner Cutter Machine Operator Relationship Specialty Start Date End Date Judy Fishman NP [address] [address] PCP - General 07/31/18 Jessica Martínez MD [address] [address] Consulting Physician Obstetrics and Gynecology 11/16/20 documented as of this encounter
--- OUTSIDE RECORDS SUMMARY | 2024-04-11 06:15 | XMS_ITS | Encounter Summary ---
Author Organization [facility] Address [address] [place] [address] Phone Care Team Providers Care Developer Prover Mechanical Name Role Phone Judy Fishman NP Primary Care Provider + Jessica Martínez MD Unavailable [phone] Reason for Visit * Reason Comments High Risk Gestation Encounter Details Date Type Department Care Team (Late st Contact Info) Description 05/10/2021 8:15 AM MACHINE STITCHER Office Visit [facility] Maternal- Medicine [address] [facility] Outpatient Health 7th Floor [address] [place] [address] Judy Polanco, BINU [address] [phone] [place], [place] [id number] Crohn's disease of small intestine with other [...] on file Legal Sex Female 7:54 PM MACHINE STITCHER Gender Identity Not on file Sexual Orientation Not on file documented as of this encounter Last Filed Vital Signs Vital Sign Reading Time Taken Comments Blood Pressure 128/84 05/10/2021 8:11 AM MACHINE STITCHER Pulse 98 05/10/2021 8:11 AM MACHINE STITCHER Temperature - - Respiratory Rate - - Oxygen Saturation 98% 05/10/2021 8:11 AM MACHINE STITCHER Inhaled Oxygen Concentration - - Weight 114.8 kg (253 lb) 05/10/2021 8:11 AM MACHINE STITCHER Height 157.5 cm (5' 2 ) 05/10/2021 8:11 AM MACHINE STITCHER Body Mass Index 46.27 05/10/2021 8:11 AM MACHINE STITCHER documented in this encounter Progress Notes * Judy Polanco, BARREL ROLLER OPERATOR - 05/10/2021 8:15 AM CST MFM Return Visit 05/10/2021 Liliana Mancilla is a 30 y.o. at 34w0d who is here for a return OB visit. Her is complicated by Crohn's disease, IVF , BMI 42, and history of prediabetes. Subjective: Continues to not sleep well. Reports some constipation that she has been using miralax for. Her last BM was yesterday. She denies contractions, loss of fluid, or vaginal bleeding and reports good movement. Denies symptoms of flare. Objective: BP 128/84 Pulse 98 Ht 157.5 cm (5' 2 ) Wt 253 lb (114.8 kg) LMP 09/15/2020 (Exact Date) SpO2 98% BMI 46.27 kg/m?? General: NAD Abdomen: Soft, gravid, NT, FHR + Extremities: WWP, no edema Ultrasound: 05/10/2021 95%, BPP 8/8- see finalized US report Assessment/Plan: Liliana Mancilla is a 30 y.o. at 34w0d with a complicated by the following: Problem List JONNATHAN 06/21/21 Crohn's disease of small intestine with other complication (HCC) - Primary Overview Diagnosed with Crohn's disease in 2019 and has been on Entyvio (vedolizumab) since that time without any additional flares. She gets her Entyvio injections q4 weeks. Final infusion currently scheduled for 2/ at 35 weeks, will plan for infusion Recommendations: - 1st trimester labs: B12 [328] , ferritin [125], folate [19.8], Vit D[39] - Anatomy US- complete and wnl - Serial growth US - testing starting at 32 weeks - Delivery at 39 weeks unless otherwise indicated--plan given no history of perianal disease. -Would recommend CS in the setting of perianal disease. Prediabetes Overview History of prediabetes with most [...] at 32 weeks- continue Delivery by 39 Current Assessment & Plan BS log reviewed with the majority of values at or under goal. Continue current regimen. Relevant Orders US Ob Follow Up Supervision of high-risk , unspecified trimester Overview [x] Full MFM Care; [] Red Team [x] Blue Team Referring Provider: JESSICA Severino [phone] [facility] Jessica Mauricio: [phone]; [x] Dating Criteria: Embryo Transfer 10/03/20 with JONNATHAN 06/21/21 [x] Labs: Lab Results Component Value Date ABORH B Positive 11/24/2020 IDCOOMB Negative 11/24/2020 [id number] Nonreactive 11/24/2020 LABRPR Nonreactive 11/24/2020 RUBELIGG Reactive 11/24/2020 HEPBSAG Nonreactive 11/24/2020 HGB 11.1 (L) 11/24/2020 HCT 35.4 (L) 11/24/2020 LABPLAT 360 11/24/2020 [x] GC/CT- Neg/Neg [x] Genetic Screening: Hollis Low Risk [x] Early 1hr GTT (if [...] [] CBC/HIV/RPR: [] GBS: [] COVID testing: ordered on for the [place] location, pt letter sent Counselling [x] MOD: IOL scheduled on 06/13/21 at 9PM, pt letter sent [x] Place of delivery: [facility] [] MOC: [x] Method of feeding: breast [x] Pathology Tech: [] PP Depression Discussed: Merom should not be given any live vaccines. Relevant Orders CBC without differential HIV 1/2 Antibody plus p24 Antigen Blood RPR Specialty Infusion Treatment 2 Crohn's disease of small intestine with other complication (HCC) - Primary Overview Diagnosed with Crohn's disease in 2019 and has been on Entyvio (vedolizumab) since that time without any additional flares. She gets her Entyvio injections q4 weeks. Final infusion currently scheduled for 2/ at 35 weeks, will plan for infusion Recommendations: - 1st trimester labs: B12 [328] , ferritin [125], folate [19.8], Vit D[39] - Anatomy US- complete and wnl - Serial growth US - testing starting at 32 weeks - Delivery at 39 weeks unless otherwise indicated--plan given no history of perianal disease. -Would recommend CS in the setting of perianal disease. PTL/PEC/FKC precautions reviewed. Reviewed the importance of presenting to her closest hospital in the case of an emergency for evaluation and if necessary and safe will be transferred to [facility] INE STITCHER documented in this encounter Miscellaneous Notes * Assessment & Plan Note - Judy Polanco NP - 05/10/2021 8:55 AM CSTAssociated Problem(s): Gestational diabetes mellitus (GDM) in third trimester (Resolved 06/12/2021) BS log reviewed with the majority of values at or under goal. Continue current regimen. INE STITCHER documented in this encounter Plan of Treatment Not on file documented as of this encounter Procedures Procedure Name Priority Date/Time Associated Diagnosis Comments HIV 1/2 ANTIBODY PLUS P24 ANTIGEN Routine 05/25/2021 1:36 PM MACHINE STITCHER Supervision of high-risk , unspecified trimester RPR Routine 05/25/2021 1:36 PM MACHINE STITCHER Supervision of high-risk , unspecified trimester CBC WITHOUT DIFFERENTIAL Routine 05/25/2021 1:36 PM MACHINE STITCHER Supervision of high-risk , unspecified trimester documented in this encounter Results * RPR (05/25/2021 1:36 PM MACHINE STITCHER) RPR NON-REACTIV E NON-REACTI VE [facility] Blood specimen (specimen) 05/25/2021 1:36 PM MACHINE STITCHER 05/25/2021 1:37 PM MACHINE STITCHER us Judy Polanco NP LAB MICROBIOLOGY - GENERAL ORDERABLES Final Result [place] [address] [place] [address] * HIV 1/2 Antibody plus p24 Antigen Blood (05/25/2021 1:36 PM MACHINE STITCHER) Pathologist [facility] HIV Ag/Ab, 4th gen NON-REACT MONSTER NON-REACT MONSTER [facility] Comment: HIV-1 antigen and HIV-1/HIV-2 antibodies were [...] ?? For additional information please refer to http://education.[employer]/faq/YCX549 (This link is being provided for informational/ educational purposes only.) The performance of this assay has not been clinically validated in patients less than 2 years old. Blood specimen (specimen) 05/25/2021 1:36 PM MACHINE STITCHER 05/25/2021 1:37 PM MACHINE STITCHER Judy Polanco NP LAB MICROBIOLOGY - GENERAL ORDERABLES Final Result [facility] [address] [place] [address] * (ABNORMAL) CBC without differential (05/25/2021 1:36 PM MACHINE STITCHER) Pathologist [facility] WBC 13.6(H) 3.8 - 10.8 Thousand/uL [facility] RBC, POC 3.95 3.80 - 5.10 Million/uL [facility] Hgb 10.8(L) 11.7 - 15.5 g/dL [facility] Hct 32.3(L) 35.0 - 45.0 % [facility] MCV 81.8 80.0 - 100.0 fL [facility] MCH 27.3 27.0 - 33.0 pg [facility] MCHC 33.4 32.0 - 36.0 g/dL [facility] Rdw 13.8 11.0 - 15.0 % [facility] Platelets 333 140 - 400 Thousand/uL [facility] MPV 11.0 7.5 - 12.5 fL [facility] Blood specimen (specimen) 05/25/2021 1:36 PM MACHINE STITCHER 05/25/2021 1:37 PM MACHINE STITCHER Judy Polanco NP LAB BLOOD ORDERABLE S Final Result [facility] [address] [place] [address] documented in this encounter Visit Diagnoses Diagnosis [...] may reflect changes made after this encounter. polyethylene glycol (MIRALAX) 17 gram packetIndications :constipation Take 17 g by mouth daily 05/31/2021 added in this encounter Care Teams Developer Prover Mechanical Relationship Specialty Start Date End Date Judy Fishman NP [address] [address] PCP - General 07/31/18 Jessica Martínez MD [address] [address] Consulting Physician Obstetrics and Gynecology 11/16/20 documented as of this encounter
--- OUTSIDE RECORDS SUMMARY | 2024-04-11 06:15 | XMS_ITS | Encounter Summary ---
Author Organization [facility] Address [address] [place] [address] Phone Care Team Providers Care Operations Processor Name Role Phone Judy Fishman NP Primary Care Provider + Jessica Martínez MD Unavailable [phone] Reason for Referral * Diagnostic Imaging (Routine) - Closed Specialty Diagnoses / Procedures Referred By Contac t Referred To Contact Diagnoses Excessive growth affecting management of in second trimester, single or unspecified fetus Supervision of high-risk , unspecified trimester Crohn's disease of small intestine with other complication (HCC) Prediabetes Procedures US Ob Follow Up Erick Nava MD [address] [facility] [phone] [place] [address] Phone: tel: fax: [facility] (All Locations) Referral ID Status Reason Start Date Expiration Date Visits Re quested Visits Authorized [id number] Closed 03/16/2021 04/15/2022 1 6 NT SIDE LASTER Reason for Visit * Reason Comments High Risk Gestation Encounter Details Date Type Department Care Team (Late st Contact Info) Description 03/16/2021 9:30 AM CEMENT SIDE LASTER Office Visit [facility] Maternal- Medicine [facility] 7th Floor [address] [place] [address] Erick Nava MD [address] [facility] [phone] [place] [address] Encounter for supervision of normal first in second trimester (Primary Dx); Excessive growth affecting management of in second trimester, single or unspecified fetus; Supervision of high-risk , unspecified trimester; Crohn's disease of small intestine with other complication (HCC); Prediabetes Social History Tobacco Use Types Packs/Day Years Used Date Smoking Tobacco: Former Cigarettes Q uit: 10/03/2020 Smokeless Tobacco: Never Alcohol Use Standard Drinks/Week Comments Yes 2 (1 standard drink = 0.6 oz pur e alcohol) Comments Yes Sex and Gender Information Value Date Recorded Sex Assigned at Not on file Legal Sex Female 7:54 PM CEMENT SIDE LASTER Gender Identity Not on file Sexual Orientation Not on file documented as of this encounter Last Filed Vital Signs Vital Sign Reading Time Taken Comments Blood Pressure 105/76 03/16/2021 9:05 AM CEMENT SIDE LASTER Pulse - - Temperature - - Respiratory Rate - - Oxygen Saturation - - Inhaled Oxygen Concentration - - Weight 114.8 kg (253 lb) 03/16/2021 9:05 AM CEMENT SIDE LASTER Height 157.5 cm (5' 2 ) 03/16/2021 9:05 AM CEMENT SIDE LASTER Body Mass Index 46.27 03/16/2021 9:05 AM CEMENT SIDE LASTER documented in this encounter Progress Notes * Ernesto Campos MD - 03/16/2021 9:30 AM CST [facility] Return Visit 02/14/2021 ?? Liliana Mancilla is a 30 y.o. at 26w1d dated by embryo transfer who is here for a return OB visit. Her is complicated by Crohn's disease, IVF , BMI 42, and history of prediabetes. ?? Subjective: Feels well today. She denies cramping, loss of fluid, or vaginal bleeding. Denes symptoms of flare. Continues to struggle with sleep, primarily going back to sleep after waking up to voidat night, using techniques to address at home. Sees chiropractor that specializes in . Objective: BP 105/76 Ht 157.5 cm (5' 2 ) Wt 253 lb (114.8 kg) LMP 09/15/2020 (Exact Date) BMI 46.27 kg/m?? General: NAD Abdomen: Soft, gravid, NT Extremities: WWP, no edema ?? Ultrasound: 03/16/21: EFW 1213g (99%ile), LATRICE 15.4, Vertex presentation, Anterior placenta, no previa, FHR 155 ?? Assessment/Plan: Liliana Mancilla is a 30 y.o. at 26w1d with a complicated by the following: Problem Crohn's disease of small intestine with other complication (HCC) Diagnosed with Crohn's disease in 2019 and [...] CS in the setting of perianal disease. RTC in 4 weeks, with repeat Cachorro prior to visit. Patient seen and discussed with Dr. Nava. Kashmir Campos MD Obstetrics and Gynecology PGY1 03/16/2021 Cosigned by Erick Nava MD at 03/16/2021 10:58 AM CEMENT SIDE LASTER NT SIDE LASTER Associated attestation - Erick Nava MD - 03/16/2021 10:58 AM CEMENT SIDE LASTER I have seen and examined the patient. I agree with the findings and plan of care as documented in the resident/fellow's note. Given growth US will try and get GTT today documented in this encounter Plan of Treatment Not on file documented as of this encounter Results * US Ob Follow Up (04/12/2021 7:35 AM CEMENT SIDE LASTER) Fetus# Fetus1 VIEWPOINT Placenta Details anterior, Previa-no VIEWPOINT Estimated Weight 1,954 g&grams VIEWPOINT Presentation Vertex VIEWPOINT Anatomical Region Laterality Modality Abdomen N/A Ultrasound 04/12/2021 7:37 AM CEMENT SIDE LASTER Erick Nava MD IMG OB US PROCEDU RES Final Result * (ABNORMAL) Glucose tolerance testing 50 gram gestational screen (03/16/2021 11:17 AM CEMENT SIDE LASTER) GTT 50g gest screen 149(H) <=140 mg/dL [facility] Comment: Interpretive Data Used for suspected [...] on 2020. Blood 03/16/2021 11:1 7 AM CEMENT SIDE LASTER 03/16/2021 11:57 AM CEMENT SIDE LASTER Erick Nava MD LAB BLOOD ORDERAB LES Final Result [facility] Department [place] [address] * (ABNORMAL) CBC without differential (03/16/2021 11:17 AM CEMENT SIDE LASTER) Pathologist [facility] WBC 12.6(H) 3.8 - 9.9 K/cumm [facility] Hgb 10.7(L) 11.9 - 15.5 g/dL [facility] Hct 32.8(L) 35.6 - 45.5 % [facility] Plt 320 150 - 400 K/cumm [facility] MPV 10.5 9.1 - 12.3 fL [facility] RBC 3.94 3.90 - 5.20 M/cumm [facility] MCV 83.2 81.3 - 96.4 fL [facility] MCH 27.2 27.1 - 33.3 pg [facility] MCHC 32.6 32.3 - 35.7 g/dL [facility] RDW CV 14.1 11.1 - 14.9 % [facility] RDW SD 42.6 35.7 - 48.1 fL [facility] NRBC abs 0.00 0.00 - 0.01 K/cumm [facility] Blood 03/16/2021 11:1 7 AM CEMENT SIDE LASTER 03/16/2021 11:57 AM CEMENT SIDE LASTER us Erick Nava MD LAB BLOOD ORDERAB LES Final Result [facility] Department [place] [address] documented in this encounter Visit Diagnoses Diagnosis Encounter for supervision of normal first in second trimester- Primary Excessive growth affecting management of in second trimester, single or unspecified fetus Supervision of high-risk , unspecified trimester Crohn's disease of small intestine with other complication (HCC) Prediabetes Other abnormal glucose documented in this encounter Care Teams Operations Processor Relationship Specialty Start Date End Date Judy Fishman NP [address] [address] PCP - General 07/31/18 Jessica Martínez MD [address] [address] Consulting Physician Obstetrics and Gynecology 11/16/20 documented as of this encounter
--- OUTSIDE RECORDS SUMMARY | 2024-04-11 06:15 | XMS_ITS | Encounter Summary ---
Author Organization [facility] Address [address] [place] [address] Phone Care Team Providers Care Belly Dancer Name Role Phone Judy Fishman NP Primary Care Provider + Jessica Martínez MD Unavailable [phone] Encounter Details Date Type Department Care Team (Late st Contact Info) Description 03/20/2021 Orders Only [facility] Maternal- Medicine [address] [facility] 7th Floor [address] [place] [address] Pauline Campos RN Supervision of high-risk , unspecified trimester (Primary Dx); Excessive growth affecting management of in second trimester, single or unspecified fetus; BMI 40.0-44.9, adult (HCC) Social History Tobacco Use Types Packs/Day Years Used Date Smoking Tobacco: Former Cigarettes Q uit: 10/03/2020 Smokeless Tobacco: Never Alcohol Use Standard Drinks/Week Comments Yes 2 (1 standard drink = 0.6 oz pur e alcohol) Comments Yes Sex and Gender Information Value Date Recorded Sex Assigned at Not on file Legal Sex Female 7:54 PM GRAIN THRESHER Gender Identity Not on file Sexual Orientation Not on file documented as of this encounter Plan of Treatment Not on file documented as of this encounter Procedures Procedure Name Priority Date/Time Associated Diagnosis Comments GLUCOSE TOLERANCE 3 HOUR, GESTATIONAL, 4 SPECIMENS (100G) Routine 03/24/2021 8:31 AM GRAIN THRESHER Supervision of high-risk , unspecified trimester Excessive growth affecting management of in second trimester, single or unspecified fetus BMI 40.0-44.9, adult (HCC) documented in this encounter Results * (ABNORMAL) Glucose Tolerance 3 Hour, Gestational, 4 Specimens (100g) (03/24/2021 8:31 AM GRAIN THRESHER) Glucose, fasting 84 65 - 94 mg/dL [facility] Glucose, 1 hour 173 <180 mg/dL [facility] Glucose, 100g, 2 hr, pl 169(H) <155 mg/dL [facility] Glucose, 100g, 3 hr, pl 148(H) <140 mg/dL [facility] Comment [facility] Comment: ?? Melgoza/Coustan Criteria: Two or more values greater than the above reference intervals are suggestive of gestational diabetes. ?? Serum 03/24/2021 8:31 AM GRAIN THRESHER 03/24/2021 8:31 AM GRAIN THRESHER Narrative [facility] - 03/26/2021 3:04 PM GRAIN THRESHER FASTING:YES FASTING: YES us Erick Nava MD LAB BLOOD ORDERAB LES Final Result [facility] [address] [place] [address] documented in this encounter Visit Diagnoses Diagnosis Supervision of high-risk , unspecified trimester- Primary Excessive growth affecting management of in second trimester, single or unspecified fetus BMI 40.0-44.9, adult (HCC) documented in this encounter Care Teams Belly Dancer Relationship Specialty Start Date End Date Judy Fishman NP [address] [id number] PCP - General 07/31/18 Jessica Martínez MD [address] [id number] Consulting Physician Obstetrics and Gynecology 11/16/20 documented as of this encounter
--- OUTSIDE RECORDS SUMMARY | 2024-04-11 06:15 | XMS_ITS | Encounter Summary ---
Author Organization [facility] Address [address] [place] [address] Phone Care Team Providers Care Duplicating Machine Mechanic Name Role Phone Judy Fishman NP Primary Care Provider + Jessica Martínez MD Unavailable [phone] Reason for Referral * (Routine) - Closed Specialty Diagnoses / Procedures Referred By Contac t Referred To Contact Diagnoses Gestational diabetes mellitus (GDM) in third trimester, gestational diabetes method of control unspecified Crohn's disease of small intestine with other complication (HCC) Procedures nonstress test - Bita Mckay NP [address] [place] [address] Phone: tel: fax: [facility] (All Locations) Referral ID Status Reason Start Date Expiration Date Visits Re quested Visits Authorized [id number] Closed 05/18/2021 06/17/2022 1 1 LEIZER Reason for Visit * Reason Comments Non-stress Test Encounter Details Date Type Department Care Team (Latest Contact Info) Description 05/18/2021 10:15 AM MARBLEIZER Clinical Support [facility] Obstetrics and Gynecology [address] [place] [address] Health 7th [place] [address] Gestational diabetes mellitus (GDM) in third trimester, [...] on file Legal Sex Female 7:54 PM MARBLEIZER Gender Identity Not on file Sexual Orientation Not on file documented as of this encounter Plan of Treatment Not on file documented as of this encounter Procedures Procedure Name Priority Date/Time Associated Diagnosis Comments NONSTRESS TEST Routine 05/18/2021 Gestational diabetes mellitus (GDM) in third trimester, gestational diabetes method of control unspecified Crohn's disease of small intestine with other complication (HCC) documented in this encounter Results * nonstress test - (05/18/2021) Bita Mckay COMBINED RAIL OPERATOR OB GYNE ORDERABLES F inal Result documented in this encounter Visit Diagnoses Diagnosis Gestational diabetes mellitus (GDM) in third trimester, gestational diabetes method of control unspecified- Primary Crohn's disease of small intestine with other complication (HCC) documented in this encounter Care Teams Duplicating Machine Mechanic Relationship Specialty Start Date End Date Judy Fishman NP [address] [address] PCP - General 07/31/18 Jessica Martínez MD [address] [address] Consulting Physician Obstetrics and Gynecology 11/16/20 documented as of this encounter
--- OUTSIDE RECORDS SUMMARY | 2024-04-11 06:15 | XMS_ITS | Encounter Summary ---
Author Organization [facility] Address [address] [place] [address] Phone Care Team Providers Care Director Of Golf Name Role Phone Judy Fishman NP Primary Care Provider + Jessica Martínez MD Unavailable [phone] Reason for Visit * Episode Based Medications (Routine) - Pending Review Specialty Diagnoses / Procedures Referred By Contac t Referred To Contact Diagnoses Crohn's disease of small intestine with other complication (HCC) Procedures CO INJECTION, VEDOLIZUMAB Trent Severino MD [address] [place] [address] Phone: tel: fax: [facility] Advanced Medicine 5th [place] [address] [place] [address] Phone: tel: fax: Referral ID Status Reason Start Date Expiration Date V isits Requested Visits Authorized [id number] Pending Review 09/26/2021 09/26/2022 41 [phone] Encounter Details Date Type Department Care Team (Late st Contact Info) Description 05/18/2021 11:30 AM CNC MANAGER Infusion [facility] Advanced Medicine 5th [place] [address] [place] [address] Crohn's disease of small intestine [...] on file Legal Sex Female 7:54 PM CNC MANAGER Gender Identity Not on file Sexual Orientation Not on file documented as of this encounter Last Filed Vital Signs Vital Sign Reading Time Taken Comments Blood Pressure 124/75 05/18/2021 12:15 PM CNC MANAGER Pulse 89 05/18/2021 12:15 PM CNC MANAGER Temperature - - Respiratory Rate - - Oxygen Saturation - - Inhaled Oxygen Concentration - - Weight - - Height - - Body Mass Index - - documented in this encounter Plan of Treatment Not on file documented as of this encounter Procedures Procedure Name Priority Date/Time Associated Diagnosis Comments CBC WITH AUTO DIFFERENTIAL Routine 05/18/2021 11:32 AM CNC MANAGER Crohn's disease of small intestine with other complication (HCC) COMPREHENSIVE METABOLIC PANEL Routine 05/18/2021 11:32 AM CNC MANAGER Crohn's disease of small intestine with other complication (HCC) documented in this encounter Results * (ABNORMAL) CBC with auto differential (05/18/2021 11:32 AM CNC MANAGER) White Blood Count 12.1(H) 3.6 - 11.2 K/uL [facility] RBC 4.23 3.63 - 4.92 M/uL [facility] Hemoglobin 11.7(L) 11.9 - 15.5 g/dL [facility] Hematocrit 34.9(L) 36.1 - 44.3 % [facility] MCV 82.6 80.0 - 97.6 fL [facility] MCH 27.6 26.7 - 33.7 pg [facility] MCHC 33.4 32.7 - 35.5 g/dL [facility] RBC Dist Width 14.7 12.3 - 17.0 % [facility] Platelet Count 338 140 - 440 K/uL [facility] MPV 9.1 6.8 - 10.4 fL [facility] Neutrophils % 69.5 38.7 - 74.5 % [facility] Lymphocyte % 24.3 20.0 - 54.3 % [facility] Monocytes % 4.0(L) 4.3 - 13.5 % [facility] Eosinophils % 1.8 0.0 - 6.0 % [facility] Basophil % 0.4 0.0 - 3.0 % [facility] Absolute Neutrophil 8.4(H) 1.8 - 6.6 K/uL [facility] Absolute Lymphocyte 2.9 0.8 - 3.3 K/uL [facility] Absolute Monocyte 0.5 0.2 - 1.2 K/uL [facility] Absolute Eosinophil 0.2 0.0 - 0.5 K/uL [facility] Absolute Basophil 0.1 0.0 - 0.2 K/uL [facility] Nucleated RBC % 0.0 0.0 - 0.4 /100 WBC [facility] Blood specimen (specimen) 05/18/2021 11:32 AM CNC MANAGER 05/18/2021 12:14 PM CNC MANAGER us Trent Severino MD LAB BLOOD ORDERABLES Final Re sult [facility] * (ABNORMAL) Comprehensive metabolic panel (05/18/2021 11:32 AM CNC MANAGER) Total Protein 6.4 6.1 - 8.4 g/dL [facility] Albumin 3.4(L) 3.5 - 5.2 g/dL [facility] Calcium 9.4 8.6 - 10.3 mg/dL [facility] BUN 9 7 - 23 mg/dL [facility] Total Bilirubin 0.21 0.20 - 1.40 mg/dL [facility] Comment:Repeated and Verifie d Alk Phos, Total 136(H) 35 - 129 IU/L [facility] Comment:Repeated and Verifie d AST (SGOT) 14 11 - 47 IU/L [facility] ALT (SGPT) 14 6 - 53 IU/L [facility] Creatinine 0.58(L) 0.60 - 1.10 mg/dL [facility] Sodium 139 135 - 145 mmol/L [facility] Potassium 4.0 3.3 - 5.1 mmol/L [facility] Chloride 105 95 - 107 mmol/L [facility] CO2 Content 19(L) 21 - 29 mmol/L [facility] Glucose 78 64 - 99 mg/dL [facility] Comment: NONFASTING GLUCOSE RANGE = 64-199 mg/dL FASTING GLUCOSE 64 - 99 = NORMAL FASTING GLUCOSE 100 - 125 = IMPAIRED FASTING GLUCOSE FASTING GLUCOSE >=126 = PROVISIONAL DIAGNOSIS OF DIABETES eGFR >90.0 >60.0 mL/min/1.7 3 m2 [facility] Comment:eGFR updated to new CKD-EPI (2020) calculation without race on 02/26/21. Blood specimen (specimen) (Blood, Venous) 05/18/2021 11:32 AM CNC MANAGER 05/18/2021 12:14 PM CNC MANAGER Trent Severino MD LAB BLOOD ORDERABLES Final [...] mL/hr, Administer over 30 Minutes, Once, On Fri05/18/21 at 1230, For 1 doseIndications:Crohn's disease of small intestine with other complication (HCC) New Bag 05/18/2021 11:40 AM CNC MANAGER 300 mg 510 mL/hr documented in this encounter Orders Medications Ordered That Jonathan ht Not Have Been Administered Count Last Ordered Date First Ordered Date vedolizumab (ENTYVIO) 300 mg in sodium chloride 0.9% 250 mL IVPB 1 05/18/2021 Nursing Count Last Ordered Date First Orde red Date ONCBCN NO PREMEDS NEEDED 1 05/18/2021 documented in this encounter Care Teams Director Of Golf Relationship Specialty Start Date End Date [place], Judy Brittani, OSHA INSPECTOR [address] [address] PCP - General 07/31/18 Jessica Martínez MD [address] [phone] Consulting Physician Obstetrics and Gynecology 11/16/20 documented as of this encounter
--- OUTSIDE RECORDS SUMMARY | 2024-04-11 06:15 | XMS_ITS | Encounter Summary ---
Author Organization [facility] Healthcare Address [address] [place] [address] Care Team Providers Care Apprentice Painter Neckties Name Role Phone Judy Fishman COURT CLERK Primary Care Provider + Jessica Martínez MD Unavailable [phone] Reason for Visit * Reason Comments Hypertension In [facility] office this m orning for NST and had increased blood pressures sent to [facility] for evaluation. Encounter Details Date Type Department Care Team (Late st Contact Info) Description 05/28/2021 9:33 AM CITY SUPERVISOR - 05/31/2021 4:26 PM [facility] Hospital Encounter [facility] [address] [place] [id number] Elena Robles MD [address] [facility] [phone] [place] [address] Erick Nava MD [address] [facility] [phone] [place] [address] Jane Hunter MD [address] [facility] [id number] [place], [place] [id number] Discharge Disposition: Discharge to home or self [...] in a long-term (including now)? No 05/31/2021 Comments No Sex and Gender Information Value Date Recorded Sex Assigned at Not on file Legal Sex Female 7:54 PM CITY SUPERVISOR Gender Identity Not on file Sexual Orientation Not on file documented as of this encounter Last Filed Vital Signs Vital Sign Reading Time Taken Comments Blood Pressure 114/67 05/31/2021 5:39 AM CITY SUPERVISOR Pulse 90 05/31/2021 5:39 AM CITY SUPERVISOR Temperature 36.7 ??C (98.06 ??F) 05/31/2021 5:[address] Respiratory Rate 20 05/31/2021 5:39 AM CITY SUPERVISOR Oxygen Saturation 98% 05/31/2021 5:39 AM CITY SUPERVISOR Inhaled Oxygen Concentration - - Weight 119.7 kg (263 lb 14.3 oz) 2021 12:01 PM CITY SUPERVISOR Height 157.5 cm (5' 2 ) 05/28/2021 12:0 1 PM CITY SUPERVISOR Body Mass Index 48.27 05/28/2021 12:01 PM CITY SUPERVISOR documented in this encounter Discharge Diagnoses Diagnosis Severe pre-eclampsia complicating childbirth - SEVERE PRE-ECLAMPSIA COMPLICATING CHILDBIRTH Single live - SINGLE LIVE 36 weeks gestation of - 36 WEEKS GESTATION OF COVID-19 - COVID-19 Other viral diseases complicating childbirth - OTHER VIRAL DISEASES COMPLICATING CHILDBIRTH Crohn's disease of small intestine without complications (HCC) - CROHN'S DISEASE OF SMALL INTESTINE WITHOUT COMPLICATIONS Personal history of nicotine dependence - PERSONAL HISTORY OF NICOTINE DEPENDENCE Obesity complicating childbirth - OBESITY COMPLICATING CHILDBIRTH Maternal care for excessive growth, third trimester, not applicable or unspecified - MATERNAL CARE FOR EXCESSIVE GROWTH, THIRD TRIMESTER, NOT APPLICABLE OR UNSPECIFIED Diseases of the digestive system complicating childbirth - DISEASES OF THE DIGESTIVE SYSTEM COMPLICATING CHILDBIRTH Other immediate hemorrhage - OTHER IMMEDIATE HEMORRHAGE Gestational diabetes mellitus in childbirth, insulin controlled - GESTATIONAL DIABETES MELLITUS IN CHILDBIRTH, INSULIN CONTROLLED Hypocalcemia - HYPOCALCEMIA Endocrine, nutritional and metabolic diseases complicating the puerperium - ENDOCRINE, NUTRITIONAL AND METABOLIC DISEASES COMPLICATING THE PUERPERIUM documented in this encounter Discharge Summaries * Cici Stephen MD - 05/31/2021 2:28 PM CST Inpatient Discharge Summary Admitting Provider: Erick Nava MD Discharge Provider: Erick Nava* Admission Date: 05/28/2021 Discharge Date: 05/31/2021 Delivery Date/Time: 05/29/2021 at 3:53 PM Delivery method: Vaginal, Spontaneous [250] Primary Discharge Diagnosis: Intrauterine at 36w5d, delivered Secondary Discharge Diagnosis: Medical Conditions Diagnosis ??? Chronic diarrhea ??? Iron deficiency [...] Gestational diabetes mellitus (GDM) in third trimester ??? care following vaginal delivery Procedures Performed: Vaginal delivery Uterine curettage with Banjo curette with vaginal packing Other Treatments: Magnesium sulfate therapy: No Blood transfusion: Yes Hospital Course: Liliana Velasco is a 30 y.o. female at 36w5d weeks gestation, dated by IVF=1 with Estimated Date of Delivery: 06/21/21. Her was notable for pre-eclampsia with severe features, obesity, gestational diabetes, and Crohn's disease without a history of perianal complications. Vertex presentation and GBS negative confirmed on admission. She presented for induction of labor. Her induction was started with Saldana balloon, misoprostol, then augmented with amniotomy and oxytocin. Epidural was placed for anesthesia. Patient progressed to complete and delivered a viable male infant with apgars 8 and 9 at one and five minutes of life respectively. Delivery was complicated by Hemo rrhage . See L&D delivery note for full details. The patient was transferred to . Her course was uncomplicated following bakri balloon removal and vaginal packing removal. Prior to discharge, her pain was well controlled, she was voiding, passing gas, ambulating, and meeting all post milestones. #COVID-19: Positive # Heme: EBL 3000 mL [...] PPD#1 113. For PP 2hr gtt # Post DVT prophylaxis: The patient has the following MAJOR risk factors BMI >/= 40 and the following MINOR risk factors PPH (EBL >/= 1000 mL) and preeclampsia. enoxaparin 40 mg BID ordered for VTE prophylaxis held on PPD#1 The patient was consented and registered for remote blood pressure monitoring. A blood pressure cuff has been given to the patient. She has confirmed receipt of test message. Her AVS was updated withdischarge instructions on use of the remote blood pressure monitoring system. She will follow up in1 week for a blood pressure check in [facility]. Symptoms of preeclampsia have been reviewed. # Mother/Baby: The patient has chosen to breastfeed her infant and has chosen Natural Family Planning for contraception. Discharge Details Physical Exam at Discharge: Discharge Condition: Stable Pulse: 90 Resp: 20 BP: 114/67 Temp: 36.7 ??C (98.06 ??F) Weight: 263 lb 14.3 oz (119.7 kg) See full physical exam from progress note on day of discharge. Lab Results Component Value Date HCT 24.0 (L) 05/30/2021 ABORH B Positive 05/28/2021 RUBELIGG Reactive 11/24/2020 [x] Iron prescribed on discharge [] Post Rhogam given [] Post MMR given Immunization History Administered Date(s) Administered ??? Influenza, Quadrivalent, Cell Culture-based MDCK, Preservative Free, Antibiotic Free, Intramuscular 02/07/2017 ??? Influenza, Quadrivalent, Split, Intramuscular 01/13/2017 ??? Influenza, Trivalent, Intramuscular 01/28/2013, 02/27/2014 ??? Influenza, Trivalent, Preservative Free, Intramuscular 04/27/2012 ??? Influenza, Unspecified 02/12/2021 ??? Pfizer SARS-CoV-2 Vaccination (12+ yrs) PURPLE 12/01/2020 ??? Pneumococcal Conjugate PCV 13 01/26/2019 ??? Pneumococcal Polysaccharide PPV23 03/30/2019 ??? Tdap 04/26/2021 Discharge Medications: Your medication list START taking these medications acetaminophen 500 mg capsule Take 2 capsules (1,000 mg total) by mouth every 6 (six) hours as needed for pain ferrous sulfate 325 mg (65 mg of elemental iron) tablet Take 1 tablet (325 mg total) by mouth every other day ibuprofen 600 mg tablet Take 1 tablet (600 mg total) by mouth every 6 (six) hours as needed for pain Commonly known as: ADVIL,MOTRIN PNV with [id number] 27 mg iron- 1 mg tablet Take 1 tablet by mouth daily CHANGE how you take these medications docusate sodium 100 mg capsule Take 1 capsule (100 mg total) by mouth 2 (two) times a day as needed for constipation Commonly known as: COLACE What changed: when to take this reasons to take this polyethylene glycol 17 gram packet Take 1 packet (17 g total) by mouth daily as needed for constipation Commonly known as: MIRALAX What changed: when to take this reasons to take this CONTINUE taking these medications cholecalciferol 1,000 unit capsule Commonly known as: VITAMIN D-3 lancets 33 gauge misc CHECK GLUCOSE FASTING AND ONE HOUR AFTER EACH MEAL pen needle, diabetic 33 gauge x 5/32 needle 1 INJECTIONS DAILY DIRECTED vedolizumab 300 mg recon soln Commonly known as: ENTYVIO STOP taking these medications aspirin 81 mg enteric coated tablet blood glucose diagnostic strip insulin NPH 100 unit/mL (3 mL) pen for injection Commonly known as: HumuLIN N, NovoLIN N MULTI ORAL TUMS ORAL UNISOM (DIPHENHYDRAMINE) ORAL Future Appointments Date Time Provider Department Center 06/04/2021 2:[address] CLERK [facility] 7 OB 06/13/2021 9:00 PM [facility] INDUCTION [facility] L&D PROC [facility] Main 06/15/2021 11:30 AM IM INFUSION 7, CAM 5C INF CAM 5C [facility] INF / INJ 08/14/2021 1:30 PM Trent Severino MD GI CAM 12B [facility] GASTRO Cosigned by Edward Zamorano MD at 05/31/2021 2:40 PM CITY SUPERVISOR SUPERVISOR SUPERVISOR documented in this encounter Discharge Instructions * Discharge Instructions* Lachelle Babcock, BINU - 05/30/2021 12:37 PM CITY SUPERVISOR Images from the original note were not [...] first call our OB communication center at [phone]. * If you have SEVERE illness including [...] bottle for the next 5-7 days. Contraception: LACTATIONAL AMENORRHEA can be an effective method to prevent if ALL of the following are true: 1) you are on demand, with at least 80% of feeds at the breast (not pumped breast milk orformula), 2) you have not gotten your first menstrual period after delivery, and 3) your baby is less than 6 months old. Ask your doctor about other methods of control if any of those things are no longer true. DESIRES CONDOMS / DECLINES CONTRACEPTION: You can get within 2 weeks of giving , though we recommend no sexual intercourse for at least 6 weeks. Condoms can be an effective method of control. However, other methods of control are better at preventing . Use a new condom every time you have sex. If you do not use a condom, or the condom breaks, you can use emergency contraceptive pills (Plan B) to preventpregnancy. You can get them at a pharmacy without a prescription. You can also get a prescription by calling your doctor. Emergency contraception works best if used right away. However, you can stilluse it within 5 days after unprotected sex. Feeding: : Follow unrestricted . Feed your baby based on baby's hunger cues (or atleast 8-12 feedings per 24 hours). Do NOT supplement unless instructed by Top Distribution Executive. Call your Top Distribution Executive if your baby has poor eating habits [...] minimize social contact due to COVID19 precautions. A member of our team will reach out by phone to check in with you in the next 2-6 weeks. If you do not hear from our office please call your primary provider to set up either an in person or phone appointment. Thank you for understanding and remember to wash your hands and avoid anyone with fevers or cough. Stay at home as much as possible and practice socialdistancing. If you yourself develop fever >100.4F, a new cough, or shortness of breath please call our centralized OB communication center at [phone]. Do not come to the hospital or clinic until you speak with a provider. Contact Information for your primary OB: * [facility]) - [facility]MMATERNAL MEDICINE - [id number] [place], [place] [address]Uuyr to schedule an appointment in 1-2 and 6 weeks. Future Appointments Date Time Provider Department Center 06/13/2021 9:00 PM [facility] INDUCTION [facility] L&D PROC [facility] Main 06/15/2021 11:30 AM IM INFUSION 7, CAM 5C INF CAM 5C [facility] INF / INJ 08/14/2021 1:30 PM Trent Severino MD GI CAM 12B [facility] GASTRO Blood Pressure Monitoring: If you are enrolled in home blood pressure monitoring please text your blood pressures when prompted upon hospital discharge.How to use a home blood pressure monitor: Be still. Don't smoke, drink caffeinated beverages or exercise within 30 minutes before measuring your blood pressure. Sit for at least 5 minutes before taking your blood pressure.Sit correctly. Sit with your back straight and supported (on a dining chair, rather than a sofa). Your feet should be flat onthe floor and your legs should not be crossed. Your arm should be supported on a flat surface (suchas a table) with the upper arm at heart level. Make sure the middle of the cuff is placed directly above the bend of the elbow. Check your monitor's instructions for an illustration or have your healthcare provider show you how. *If at ANY time you have symptoms of chest pain, shortness of breath, vision changes, numbness/weakness, difficulty speaking, headache, or if something just doesn't feel right, call our OB communication center at [phone]. High blood pressure problems during & after [...] should call the doctor if you experience: senior living risks of preeclampsia If you had preeclampsia [...] FASTING AND ONE HOUR AFTER EACH MEAL pen needle, diabetic 33 gauge x 5/32 needle 1 INJECTIONS DAILY DIRECTED ASK your doctor about these medications aspirin 81 mg enteric coated tablet blood glucose diagnostic strip Check glucose fasting and one hour after each meal cholecalciferol 1,000 unit capsule Commonly known as: VITAMIN D-3 docusate sodium 100 mg capsule Commonly known as: COLACE insulin NPH 100 unit/mL (3 mL) pen for injection Inject 12 units under the skin every day at bedtime Commonly known as: HumuLIN N, NovoLIN N polyethylene glycol 17 gram packet Commonly known as: MIRALAX MULTI ORAL TUMS ORAL UNISOM (DIPHENHYDRAMINE) ORAL vedolizumab 300 mg recon soln Commonly known as: ENTYVIO SUPERVISOR documented in this encounter Medications at Time [...] other day 30 tablet 3 05/31/2021 3 ibuprofen (ADVIL,MOTRIN) 600 mg tabletIndication s:Cramps Take 1 tablet (600 mg total) by mouth every 6 (six) hours as needed for pain 90 tablet 1 05/31/2021 3 lancets 33 gauge misc CHECK GLUCOSE FASTING AND ONE HOUR AFTER EACH MEAL 200 each 6 03/27/2021 2 pen needle, diabetic 33 gauge x /32 needle 1 INJECTIONS DAILY DIRECTED 200 each 3 04/12/2021 2 PNV with [id number] 27 mg iron- 1 mg tabletIndication s:Vitamin Deficiency Prevention Take 1 tablet by mouth daily 90 tablet 3 05/31/2021 3 polyethylene glycol (MIRALAX) 17 gram packetIndication s:constipation Take 1 packet (17 g total) by mouth daily as needed for constipation 17 packet 05/31/2021 2 documented as of this encounter Ordered Prescriptions Prescription Sig Dispense Quantity Refills Last Filled Start Date End Date ferrous sulfate 325 mg (65 mg of elemental iron) tabletIndications :Iron Deficiency Anemia Take 1 tablet (325 mg total) by mouth every other day 30 tablet 3 05/31/2021 3 ibuprofen (ADVIL,MOTRIN) 600 mg tabletIndications :Cramps Take 1 tablet (600 mg total) by mouth every 6 (six) hours as needed for pain 90 tablet 1 05/31/2021 3 acetaminophen 500 mg capsuleIndication s:Fever,Pain Take 2 capsules (1,000 mg total) by mouth every 6 (six) hours as needed for pain 90 tablet 1 05/31/2021 3 PNV with [id number] 27 mg iron- 1 mg tabletIndications :Vitamin Deficiency Prevention Take 1 tablet by mouth daily 90 tablet 3 05/31/2021 3 polyethylene glycol (MIRALAX) 17 gram packetIndications :constipation Take 1 packet (17 g total) by mouth daily as needed for constipation 17 packet 05/31/2021 2 docusate sodium (COLACE) 100 mg capsuleIndication s:constipation,St ool Softener Take 1 capsule (100 mg total) by mouth 2 (two) times a day as needed for constipation 60 capsule 05/31/2021 3 documented in this encounter Discharge Disposition Disposition Code Departure Means Destination Discharge to home or self care documented in this encounter Progress Notes * Rita Kim LCSW - 05/31/2021 10:16 AM CST This clinician speaks directly with MOB Liliana Velasco 1990 for support and check-in. Pt currently admitted for delivery of (baby boy, Simone Velasco, EGA 36.5 weeks). MOB noted to be formula/breast feeding- has worked with inpatient for support throughout admission. No SDOH concerns indicated throughout conversation- family confirms having access to food, utilities, and transportation needs. No hx of MH or SA concerns noted throughout chart. MOB denies any concerns for mood instability recently or currently. Social Work and Liliana Velasco discussed the signs and symptoms of Mood and Anxiety Disorder. Social Work discussed and normalized increase in emotions and the importance of self-care. Social Work encouraged new mom to take time for herself and utilize supports available. Available support systems reviewed. Warning signs reviewed and MOB encouraged to seek medical and mental health treatment if symptoms persist including possible medication management. Resources for counseling provided in Mother/Baby folder and MOB encouraged to contact if needed. MOB engaged in conversation and demonstrates knowledge. MOB confirms having all needed baby items prepared for , including car seat, clothing, crib/bassinet, bottles, etc. SW provides support and encouragement. Family denies having any questions or concerns. No further SW needs indicated at this time. Rita MARTÍNEZ LCSW [facility] Clinical Corporate Director Talent Assessment [facility] Inf[facility] SUPERVISOR * Cici Stephen MD - 05/31/2021 6:15 AM CST Post Progress Note Delivery Date/Time: 05/29/2021 at 3:53 PM Delivery method: Vaginal, Spontaneous [250] Obstetrical/Medical Problems: Medical Conditions Diagnosis ??? Chronic diarrhea ??? Iron deficiency [...] Gestational diabetes mellitus (GDM) in third trimester ??? care following vaginal delivery Subjective Flatus: Yes Pain: Well controlled Diet: Tolerating regular diet. Ambulating independently Voiding spontaneously Lochia: like a period No acute events overnight Denies WHITE, vision changes, SOB, RUQ pain. Pt denies dizziness or lightheadedness when walking around today. Interested in d/c today if possible. Scheduled Medications calcium carbonate, 400 mg of elemental calcium, oral, Daily docusate sodium, 100 mg, oral, BID enoxaparin, 40 mg, subcutaneous, Q12H PEARL viatmin, 1 tablet, oral, Daily polyethylene glycol, 17 g, oral, Daily senna, 1 tablet, oral, BID sodium chloride 0.9%, 0.5-20 mL, intra-catheter, Q8H PEARL PRN Medications ??? acetaminophen ??? benzocaine-menthoL ??? bisacodyL ??? hydrocortisone ??? ibuprofen ??? ondansetron ODT OR ondansetron ??? oxyCODONE ??? sodium chloride 0.9% Vitals: Temp: [36.4 ??C (97.6 ??F)-36.8 ??C (98.2 ??F)] 36.7 ??C (98.06 ??F) Pulse: [76-111] 90 BP: (112-130)/(56-77) 114/67 Resp: [16-20] 20 SpO2: [90 %-100 %] 98 % Intake/Output Summary (Last 24 hours) at 05/31/2021 0657 Last data filed at 05/30/2021 1300 Gross per 24 hour Intake 818.33 ml Output 2025 ml Net -1206.67 ml Physical Exam General: No acute distress. Cardiovascular: Regular rate and rhythm. Lungs: Non-labored. Clear to auscultation bilaterally. Abdomen: Soft, non-distended, appropriately tender to palpation. Fundus firm and below umbilicus. Peripad with minimal spotting. Extremities: Warm and well-perfused. Neuro: Globally intact. Recent Labs Lab Units 05/30/21 0743 05/30/21 0734 05/29/21 2109 05/29/21 1735 05/29/21 1727 05/29/21 1720 05/28/21 1344 05/28/21 1002 WBC K/cumm -- 20.6* 28.3* -- -- 26.1* -- 14.3* HEMOGLOBIN, POC g/dL -- -- -- -- 7.4* -- < > -- HEMOGLOBIN g/dL -- 8.0* 9.2* -- -- 6.8* -- 11.0* HEMATOCRIT % -- 24.0* 26.8* -- -- 21.5* -- 33.5* HEMATOCRIT POC % -- -- -- -- 22.0* -- < > -- PLATELETS K/cumm -- 244 239 -- -- 269 -- 360 CREATININE mg/dL -- 0.67 0.70 -- -- 0.58* -- 0.56* AST Units/L -- 28 28 -- -- 18 -- 13 ALT Units/L -- 13 11 -- -- 10 -- 14 PROTEIN/CREAT RATIO mg/g CR -- -- -- -- -- -- -- See Comment GLUCOSE mg/dL -- 110 114 -- -- 490* -- 94 POC GLUCOSE MONITOR mg/dL 113 -- -- < > 404* -- < > -- < > = values in this interval not displayed. Labs: Lab Results Component Value Date ABORH B Positive 05/28/2021 IDCOOMB Negative 05/28/2021 [id number] Nonreactive 11/24/2020 [id number] NON-REACTIVE 05/25/2021 LABRPR NON-REACTIVE 05/25/2021 RUBELIGG Reactive 11/24/2020 HEPBSAG Nonreactive 11/24/2020 GBS neg 05/24/2021 Assessment and Plan 30 y.o. PPD#2 s/p complicated by team hemorrhage with QBL 3350 requiring multiple agents, Bakri with vaginal packing, transfusion, and pressor support briefly. Now improving and doing well on milestones otherwise. Problem Care Following Vaginal Delivery # ID: [...] gets her Entyvio injections q4 weeks. Last 2/4. # GDMA2: Fasting BG PPD#1 113. For [...] has covid. # Disposition: Follow up task not sent. Desires discharge home today. pending bleeding amount Cici Stephen MD 05/31/21 I have reviewed and agree with the above documentation. 30 y.o. PPD#2 from vaginal deliverycomplicated by PPH. Hgb 8.0 with minimal bleeding. WBC down-trending, VSS. Meeting milestones. Mariana Rivera MD, MPHS PGY-4, Obstetrics & Gynecology Cosigned by Edward Zamorano MD at 05/31/2021 8:46 AM CITY SUPERVISOR SUPERVISOR SUPERVISOR SUPERVISOR Associated attestation - Edward Zamorano MD - 05/31/2021 8:46 AM CITY SUPERVISOR I have seen and examined the patient on 05/31/21. I agree with the findings and plan of care as documented in the resident's/fellow's note.. * Erick Nava MD - 05/30/2021 9:59 AM CST Vaginal packing removed - two packs tied together identified Bakri balloon deflated and removed. No bleeding Will monitor on L&D for two hours, then transfer to SUPERVISOR * Noemí Valle MD - 05/30/2021 4:17 AM CST Post Progress Note Delivery Date/Time: 05/29/2021 at 3:53 PM Delivery method: Vaginal, Spontaneous [250] Obstetrical/Medical Problems: Medical Conditions Diagnosis ??? Chronic diarrhea ??? Iron deficiency [...] Gestational diabetes mellitus (GDM) in third trimester ??? care following vaginal delivery Subjective Flatus: Yes Pain: Well controlled Diet: Tolerating regular diet. Not yet ambulating. - receiving mag Saldana still in place Lochia: still with Bakri balloon and vaginal packing x2 in place. No acute events overnight Denies WHITE, vision changes, SOB, RUQ pain Scheduled Medications docusate sodium, 100 mg, oral, BID [Held by Provider] enoxaparin, 40 mg, subcutaneous, Q12H PEARL loperamide, 2 mg, oral, Once viatmin, 1 tablet, oral, Daily polyethylene glycol, 17 g, oral, Daily senna, 1 tablet, oral, BID sodium chloride 0.9%, 0.5-20 mL, intra-catheter, Q8H PEARL PRN Medications ??? acetaminophen ??? benzocaine-menthoL ??? bisacodyL ??? calcium gluconate ??? hydrocortisone ??? ibuprofen ??? ondansetron ODT OR ondansetron ??? oxyCODONE ??? sodium chloride 0.9% Vitals: Temp: [36.7 ??C (98.1 ??F)-37.7 ??C (99.9 ??F)] 36.9 ??C (98.4 ??F) Pulse: [74-159] 115 BP: (75-161)/(40-105) 107/60 Resp: [16-18] 16 SpO2: [81 %-100 %] 96 % Intake/Output Summary (Last 24 hours) at 05/30/2021 0545 Last data filed at 05/30/2021 0440 Gross per 24 hour Intake 6552.92 ml Output 8600 ml Net -2047.08 ml Physical Exam General: No acute distress. Cardiovascular: Regular rate and rhythm. Lungs: Non-labored. Clear to auscultation bilaterally. Abdomen: Soft, non-distended, appropriately tender to palpation. Fundus firm and below umbilicus. Peripad with minimal spotting. Still with bakri and vaginal packing. Extremities: Warm and well-perfused. Neuro: Globally intact. 2+ reflexes Recent Labs Lab Units 05/29/219 05/29/21195705/29/21 1735 05/29/21 1727 05/29/21 1720 05/28/21 1344 05/28/21 1002 WBC K/cumm 28.3* -- -- -- 26.1* -- 14.3* HEMOGLOBIN, POC g/dL -- -- -- 7.4* -- < > -- HEMOGLOBIN g/dL 9.2* -- -- -- 6.8* -- 11.0* HEMATOCRIT % 26.8* -- -- -- 21.5* -- 33.5* HEMATOCRIT POC % -- -- -- 22.0* -- < > -- PLATELETS K/cumm 239 -- -- -- 269 -- 360 CREATININE mg/dL 0.70 -- -- -- 0.58* -- 0.56* AST Units/L 28 -- -- -- 18 -- 13 ALT Units/L 11 -- -- -- 10 -- 14 PROTEIN/CREAT RATIO mg/g CR -- -- -- -- -- -- See Comment GLUCOSE mg/dL 114 -- -- -- 490* -- 94 POC GLUCOSE MONITOR mg/dL -- 131 127 404* -- < > -- < > = values in this interval not displayed. Labs: Lab Results Component Value Date ABORH B Positive 05/28/2021 IDCOOMB Negative 05/28/2021 [id number] Nonreactive 11/24/2020 [id number] NON-REACTIVE 05/25/2021 LABRPR NON-REACTIVE 05/25/2021 RUBELIGG Reactive 11/24/2020 HEPBSAG Nonreactive 11/24/2020 GBS neg 05/24/2021 Assessment and Plan 30 y.o. PPD#1 s/p complicated by team hemorrhage with QBL 3350 requiring multiple agents, Bakri with vaginal packing, transfusion, and pressor support briefly. Now improving and doing well on milestones otherwise. Problem Care Following Vaginal Delivery # ID: Afebrile. No signs/symptoms of infection. #COVID-19: Positive # Heme: EBL 3000 mL with QBL 3350 mL. No symptoms acute blood loss anemia. 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 Bakri with 450cc, 200cc removed 2/15 PM. 175cc output over PM shift. Pads have remained dryovernight. Plan for the remainder of the fluid within the bakri to be removed at 2/16 AM. Hgb 6.8 > 9.2 post transfusion. PPD#1 AM CBC ordered to be drawn at 7:00am. # CV/Pulm: #Pre-eclampsia with severe features: For 24 hours magnesium sulfate, complete05/30/21 @ 1563. Blood pressures well controlled on no agents. CBC/CMP wnl, UPC undetectable. RepeatCMP ordered for 7:00am. # GI/: Tolerating PO. Adequate urine output, void trial after completion of Magnesium Sulfate andwhen vaginal packing removed. #Crohn's disease: Diagnosed with Crohn's disease in 2019 and has beenon Entyvio (vedolizumab) since that time without any additional flares. She gets her Entyvio injections q4 weeks. Last 05/18. # GDMA2: Fasting BG PPD#1 pending # Pain: Controlled with above regimen. # Post DVT prophylaxis: The patient has the following MAJOR risk factors BMI >/= 40 and the following MINOR risk factors PPH (EBL >/= 1000 mL) and preeclampsia. enoxaparin 40 mg BID ordered for VTE prophylaxis. # MOC: Natural family planning # MOF: # COVID Vaccination Status: Previously received dose #1, address dose #2 on . # Disposition: Follow up task not sent. Continue routine care. Scotty Peña MD 05/30/21 I agree with the above documentation Scotty Peña MD, MPH PGY-4, Obstetrics & Gynecology Cosigned by Erick Nava MD at 05/30/2021 8:09 AM CITY SUPERVISOR SUPERVISOR SUPERVISOR SUPERVISOR SUPERVISOR Associated attestation - Erick Nava MD - 05/30/2021 8:09 AM CITY SUPERVISOR I have seen and examined the patient on 05/30/21. I agree with the findings and plan of care as documented in the resident's/fellow's note.. Feeling well this morning CBC pending Assuming hgb stable, will DC bakri and vaginal packing this morning * Karan Kelly MD - 05/29/2021 10:59 PM CST Obstetric Anesthesiology- Post Hemorrhage Update Patient stable, VSS, pain well controlled after 1 dose of dilaudid. Labs reviewed, Lactate now 1.5,previous 6.2. Hgb stable 9.2, coags stable. Remains hypocalcemic, iCal 3.93 Plan: 3g Calcium Gluconate IV Given unremarkable coags, ok to remove epidural Continue PO intake Pain meds PRN Discussed plan with Dr. Meneses, attending anesthesiologist, as well as OB team. Karan Kelly MD CA-2, Anesthesiology [facility] SUPERVISOR SUPERVISOR * Scotty Peña MD - 05/29/2021 8:18 PM CST Images from the original note were not included. R4 OB Note Late Entry / to patient care MD to bedside to assess patient in the setting of intense pressure and complaints of intense constipation. Explained that her symptoms are likely worsened by the bakri balloon and vaginal packing in place. The Bakri bag has about 200mL of bloody fluid. There is 450cc in the Bakri Balloon curruently. No active bleeding visualized in the tubing. BSUS with bakri balloon in the lower uterine segment with heterogenous material in the uterine cavity above the balloon. Heterogenous material above the bakri balloon Bakri in lower uterine segment 200ml removed from the bakri balloon (so 250cc remains in the bakri balloon). Vaginal packing remains in place. Pad remains dry currently. Next labs ordered for 2100. Will continue to monitor bleeding. Scotty Peña MD, MPH PGY-4, Obstetrics & Gynecology SUPERVISOR * Mariana Rviera MD - 05/29/2021 6:34 PM CST Recent Labs Lab Units 05/29/21 1727 05/29/21 1720 05/29/21 1637 05/28/21 1002 HEMOGLOBIN, POC g/dL 7.4* -- 11.2* -- HEMOGLOBIN g/dL -- 6.8* -- 11.0* Patient transfused 2 units RBC following Hgb 6.8. 250 mL of albumin administered in addition to 1L LR. 1 gram calcium chloride administered by anesthesia. Mg held given hypotension. LR running @ 50. Repeat CBC, PT/INR, aPTT, ionized Ca, lactate at 2100. Bakri remains in place, 450 mL; 2 vag packs (tied together) in place. Saldana for strict I/O with packing. Mariana Rivera MD, MPHS PGY-4, Obstetrics & Gynecology SUPERVISOR * Erick Nava MD - 05/29/2021 5:30 PM CST I was present for management of PPH. EBL ~2-3L Serial labs pending Second unit of pRBC running with significant improvement in symptoms and pressor requirements I discussed the events at length with Ms Velasco and her partner. We went over what has happened so far and the interventions that we performed. We discussed next steps if the bleeding is recurrent. At this time, we plan serial labs, with removal of the bakri balloon tomorrow morning SUPERVISOR * Cici Stephen MD - 05/29/2021 3:38 PM CST Patient 100/10/[address] Zamorano is aware. Cici Stephen MD, MS PGY-1 05/29/21 SUPERVISOR * Jane Rolle MD - 05/29/2021 1:48 PM CST Labor Update Note S: Patient s/p epidural, no headache, vision changes, SOB, or RUQ pain and Comfortable O: BP 124/67 Pulse 83 Temp 36.6 ??C (97.8 ??F) Resp 18 Ht 157.5 cm (5' 2 ) Wt 263 lb 14.3oz (119.7 kg) LMP 09/15/2020 (Exact Date) SpO2 98% BMI 48.27 kg/m?? SVE: /0 Monitoring: Baseline: 130 bpm, Variability: Moderate, Accelerations: Absent and Decelerations: None Uterine Activity: Contractions present, q2 minutes A/P: 30 y.o. at 36w5d Category I tracing Vitals preeclampsia with severe features on magnesium, normotensive FSE placed. Making good cervical change. Anticipate vaginal delivery soon. Maria De Jesus Rolle MD, MPH Obstetrics & Gynecology, PGY-1 05/29/21 SUPERVISOR * Mariana Rivera MD - 05/29/2021 10:57 AM CST Labor Update Note O: BP 124/67 Pulse 83 Temp 36.6 ??C (97.8 ??F) Resp 18 Ht 157.5 cm (5' 2 ) Wt 263 lb 14.3oz (119.7 kg) LMP 09/15/2020 (Exact Date) SpO2 98% BMI 48.27 kg/m?? Monitoring: Baseline: 120 bpm, Variability: Moderate, Accelerations: Present and Decelerations: None Uterine Activity: infrequent A/P: 30 y.o. at 36w5d Category 1 tracing Vitals reviewed, previously dx with pre-eclampsia with severe features Restart OT Mariana Rivera MD SUPERVISOR * Dayanara Foley MD - 05/29/2021 8:51 AM CST Labor Update Note S: Patient s/p epidural and Comfortable O: BP 124/67 Pulse 83 Temp 36.6 ??C (97.8 ??F) Resp 18 Ht 157.5 cm (5' 2 ) Wt 263 lb 14.3oz (119.7 kg) LMP 09/15/2020 (Exact Date) SpO2 98% BMI 48.27 kg/m?? SVE: 5.5 /90 /-2 Monitoring: Baseline: 130 bpm, Variability: Moderate, Accelerations: Present and Decelerations: None Uterine Activity: Contractions present, q2-5 minutes, 125 MVUs on 40 of OT A/P: 30 y.o. at 36w5d - Category 1 tracing. - Vitals preeclampsia with severe features on magnesium: BPs normotensive to mild range on MgSO4. Required L20 IV x24 hours for spotting. - Plan for OT break now, with 1 mg propranolol IV. Will also place Traxi at this time for suspectedlabor curve dystocia. Dayanara Foley MD Cosigned by Erick Nava MD at 05/29/2021 10:53 AM CITY SUPERVISOR SUPERVISOR SUPERVISOR Associated attestation - Erick Nava MD - 05/29/2021 10:53 AM CITY SUPERVISOR I have seen and examined the patient on 05/29/21. I agree with the findings and plan of care as documented in the resident's/fellow's note.. Doing well now that epidural working * Scotty Peña MD - 05/29/2021 6:43 AM CST R4 OB Note MD to bedside to replace IUPC as the previous one was showing a high resting tone. IUPC replaced without issue with a slightly lower resting tone and more complete contraction tracing. Scotty Peña MD, MPH PGY-4, Obstetrics & Gynecology SUPERVISOR * Noemí Valle MD - 05/29/2021 6:20 AM CST Labor Update Note S: Patient s/p epidural and Comfortable. Headache returned, located bilateral front and down sides of face. Improved with compazine earlier O: BP 137/81 Pulse 88 Temp 36.6 ??C (97.8 ??F) Resp 18 Ht 157.5 cm (5' 2 ) Wt 263 lb 14.3oz (119.7 kg) LMP 09/15/2020 (Exact Date) SpO2 100% BMI 48.27 kg/m?? SVE: 5.5 /75 /-2 Monitoring: Baseline: 130 bpm, Variability: Moderate, Accelerations: Present and Decelerations: None Uterine Activity: Contractions present, q3-5 minutes A/P: 30 y.o. at 36w5d Category 1 tracing Vitals preeclampsia with severe features on magnesium IUPC placed given no cervical change since midnight. Patient tolerated well. Difficult to 0 the catheter as would briefly be 0 then rapidly return to basal tone in 50s, resulting in peak of contraction being truncated. This did not improve with additional advancement of catheter. Will attempt to further 0. BGs well controlled For repeat compazine now Noemí Valle MD SUPERVISOR * Therese Leslie MD - 05/29/2021 1:56 AM CST Labor Update Note S: Patient s/p epidural, no headache, vision changes, SOB, or RUQ pain and Comfortable O: BP 112/66 Pulse 75 Temp 36.6 ??C (97.8 ??F) Resp 16 Ht 157.5 cm (5' 2 ) Wt 263 lb 14.3oz (119.7 kg) LMP 09/15/2020 (Exact Date) SpO2 98% BMI 48.27 kg/m?? SVE: 5.5 /75 /-2 Monitoring: Baseline: 120 bpm, Variability: Moderate, Accelerations: Absent and Decelerations: None Uterine Activity: Contractions present, q3-4 minutes A/P: 30 y.o. at 36w5d Category I tracing Vitals preeclampsia with severe features on magnesium; has not required spotting Continue OT, currently at 22 Plan for SVE within 1hr to reassess COVID+ Therese Leslie MD SUPERVISOR * Dayanara Foley MD - 05/28/2021 5:33 PM CST Labor Update Note S: Patient Comfortable, feeling minimal contractions O: BP 133/72 Pulse 69 Temp 36.8 ??C (98.2 ??F) (Oral) Resp 16 Ht 157.5 cm (5' 2 ) Wt 263 lb 14.3 oz (119.7 kg) LMP 09/15/2020 (Exact Date) SpO2 100% BMI 48.27 kg/m?? SVE: 4 /50 /-3 Monitoring: Baseline: 130 bpm, Variability: Moderate, Accelerations: Present and Decelerations: None Uterine Activity: Irregular contractions A/P: 30 y.o. at 36w4d Category 1 tracing Vitals preeclampsia with severe features on magnesium: BPs normotensive to mild range. Will CTM. AROM clear fluid without complication. Continue to uptitrate OT per protocol. Dayanara Foley MD SUPERVISOR * Dayanara Foley MD - 05/28/2021 4:22 PM CST Labor Update Note S: Patient Comfortable, feeling minimal contractions O: BP 132/75 Pulse 80 Temp 36.9 ??C (98.4 ??F) (Oral) Resp 18 Ht 157.5 cm (5' 2 ) Wt 263 lb 14.3 oz (119.7 kg) LMP 09/15/2020 (Exact Date) SpO2 98% BMI 48.27 kg/m?? SVE: /-3 Monitoring: Baseline: 130 bpm, Variability: Moderate, Accelerations: Present and Decelerations: None Uterine Activity: Difficult to visualize contractions on toco. A/P: 30 y.o. at 36w4d Category 1 tracing Vitals preeclampsia with severe features on magnesium: BPs normotensive to mild range. Will CTM. Saldana balloon out. Plan for AROM in 30 minutes to 1 hour. Dayanara Foley MD SUPERVISOR * Jane Rolle MD - 05/28/2021 1:28 PM CST Mechanical Cervical Ripening Device Insertion Note A Saldana Balloon was placed and filled with 60 cc of fluid in the uterine balloon and placed on tension at 1315. A misoprostol was placed concurrently. The patient tolerated placement well. Maria De Jesus Rolle MD, MPH Obstetrics & Gynecology, PGY-1 05/28/21 SUPERVISOR documented in this encounter H&P Notes * Katina Mcgee NP - 05/28/2021 9:36 AM CST Obstetrics H&P Chief Complaint: r/o PreE with Mild Range BP at [facility] Estimated Date of Delivery: 06/21/21 Provider: [facility] HPI: Liliana Velasco is a 30 y.o. female at 36w4d gestation, dated by IVF dating. Pt presents to [facility] from [facility] appointment after having mild range BP. Reported BP readings of 145/87 and 138/87 per MD Moira. Reports that seh has a mild WHITE at this time, declines Tylenol and has notice an increased in swelling in her hands and bilateral LE over the last few days. Pt denies VB, LOF, SOB, visual changes, RUQ pain, or other OB related complaints. Pt endorses good movement at this time. Her is complicated by gDM, LGA 97%, IVF , obesity and Crohn's Patient Denies: [x] Contractions [x] Shortness of Breath [x] Nausea/Vomitting [x] Vaginal Bleeding [x] Headache [x] Abdominal Pain [x] Leaking of Fluid [x] Visual changes [x] Decreased Movement OB History Para Term AB Living 1 0 0 0 0 0 SAB IAB Ectopic Multiple Live Births 0 0 0 0 0 # Outcome Date GA Lbr Amor/2nd Weight Sex Delivery Anes PTL Lv 1 Current [employer] History: Patient's last menstrual period was 09/15/2020 (exact date). History of Abnormal Pap: None STD History: none Past Medical History: Diagnosis Date ??? Autoimmune disorder (CMS/HCC) (HCC) ??? Crohn's disease (CMS/HCC) (HCC) ??? Diabetes mellitus (HCC) GDM Chronic hypertension: No Diabetes: Yes, current regimen of 16 units sHS Asthma: No Past Surgical History: Procedure Laterality Date ??? ANKLE FRACTURE SURGERY 2008 ??? CERVICAL BIOPSY W/ LOOP ELECTRODE EXCISION ??? CHOLECYSTECTOMY 2017 Social History Socioeconomic History ??? Marital status: Tobacco Use ??? Smoking status: Former Smoker Packs/day: 0.50 Types: Cigarettes Quit date: 10/03/2020 Years since quittin.6 ??? Smokeless tobacco: Never Used Substance and Sexual Activity ??? Alcohol use: Yes Alcohol/week: 2.0 standard drinks Types: 2 Glasses of wine per week ??? Drug use: Never ??? Sexual activity: Yes Partners: Male control/protection: None Support System: Supported by SO Safe at home: Yes family history includes Cancer in her maternal grandfather, maternal grandmother, mother's sister, and paternal grandmother; Crohn's disease in her paternal cousin; Diabetes in her maternal grandfather and mother; Hypertension in her mother; Ulcerative colitis in her paternal cousin. Family history of bleeding or clotting disorders: No Family history of defects, genetic disorders, or developmental delay: No Allergies Allergen Reactions ??? Cefdinir Swelling ??? Clindamycin Swelling ??? Povidone-Iodine Rash And chlorahexadine ??? Sulfa (Sulfonamide Antibiotics) Swelling ??? Unclassified Drug Swelling ??? Morphine Itching HOME MEDICATIONS : aspirin 81 mg enteric coated tablet blood glucose diagnostic strip calcium carbonate (TUMS ORAL) cholecalciferol (VITAMIN D-3) 1,000 unit capsule diphenhydramine HCl (UNISOM, DIPHENHYDRAMINE, ORAL) docusate sodium (COLACE) 100 mg capsule insulin NPH (HumuLIN N, NovoLIN N) 100 unit/mL (3 mL) pen for injection lancets 33 gauge misc pen needle, diabetic 33 gauge x 5/32 needle polyethylene glycol (MIRALAX) 17 gram packet no122/iron/folic acid ( MULTI ORAL) vedolizumab (ENTYVIO) 300 mg recon soln Review of Sys: All systems negative except cardiovascalur Vitals: Temp: [36.9 ??C (98.4 ??F)] 36.9 ??C (98.4 ??F) Pulse: [82-106] 82 Resp: [18-20] 20 BP: (103-173)/(60-95) 103/60 Physical Exam: General: NAD, mood appropriate Cardiovascular: HR WNL, BP initially severe range with return to normotensive after treatment Pulmonary: Unlabored breathing Abdomen: Gravid, non-tender Extremities: Warm and well perfused, 2+ pitting edema noted in bilateral LE Speculum Exam: deferred Cervix: / / deferred Monitoring: Baseline: 135 bpm, Variability: Moderate, Accelerations: Present and Decelerations: None Uterine Activity: Irregular contractions with irritability Interpretation: Reactive Ultrasound: Vertex presentation Anterior placenta Previa: No Estimated Weight: 2906 grams (95%) on 05/10 Labs: Lab Results Component Value Date ABORH B Positive 11/24/2020 IDCOOMB Negative 11/24/2020 [id number] Nonreactive 11/24/2020 LABRPR Nonreactive 11/24/2020 RUBELIGG Reactive 11/24/2020 HEPBSAG Nonreactive 11/24/2020 GBS neg 05/24/2021 GBS Neg Assessment and Plan Liliana Velasco is a 30 y.o. female at 36w4d who presents for r/o PreE #r/o PreE -POCT Urine Dip: unremarkable -CBC: WBC 14.3, otherwise unremarkable -CMP: Unremarkable, glucose 94 -Uric Acid: WNL -UPC: unable to calculate -Serial BP Monitoring: severe range upon arrival, return to normotensive following treatment -20mg IV Labetalol @ 1012, BP to 130/90 -Admit to labor for IOL and mag therapy #FWB -Pt endorses good movement at this time -NST: Reactive, 135bpm baseline 1. Induction of labor for gHTN/PreE: Admit to L&D. Consents signed and placed in chart. Send CBC/T&S. Induction of labor with FB/Misoprostol. 2. FWB: Continuous monitoring. tracing category I 3. ID: HIV negative. GBS negative. Membrane Status: intact. 4. Indications for UDS: none. Verbal consent obtained for UDS: Not indicated 5. MOF: Plans to breastfeed. 6. MOC: Plans to use natural family planning for contraception. 7. Pain management: Desires epidural upon request. 8. Post DVT prophylaxis: The patient has the following MAJOR risk factors BMI >/= 40 and the following MINOR risk factors none. SCDs will be ordered for VTE prophylaxis . 9. COVID Vaccine Status: Previously received 10. COVID Test Status: Test sent on admission 11. GDM: for accu check Plan discussed with Dr. Nava and Dr. Rivera. Katina Mcgee NP 05/28/21 Cosigned by Erick Nava MD at 05/29/2021 6:07 AM CITY SUPERVISOR SUPERVISOR SUPERVISOR documented in this encounter Procedure Notes * Katina Mcgee NP - 05/28/2021 11:22 AM CST Procedures Electronic Monitoring/Non-Stress Test in [facility] Date: 05/28/2021 FHR Baseline: 135bom Variability: moderate Accelerations: present Decelerations: absent Contractions: irrergular with irritability, pt denies feeling ctxs at this time Reactive: Yes Comments: pt presents for r/o PreE from [facility] I have reviewed NST with MD Brandy and instructed RN to take off monitor Katina Mcgee NP Cosigned by Erick Nava MD at 05/28/2021 12:04 PM CITY SUPERVISOR SUPERVISOR SUPERVISOR documented in this encounter Nursing Notes * Ryan Leigh RN - 05/31/2021 4:26 PM CST Patient discharged home in a stable general condition in the company of the spouse. Self care instructions given, patient verbalized understanding. Blood Pressure cuff given and patient states she knows how to use the machine. Printed instructions given. SUPERVISOR * Mabel Sosa RN - 05/29/2021 7:00 PM CST Team hemorrhage called at approxiametely 1610 via order by Brandy GREGORY. Multiple providers and nurses to bedside. Multiple medications given, baakri & vag packing insterted, labs drawn, plan ofcare discussed with patient & family member throughout process SUPERVISOR * Mabel Sosa RN - 05/29/2021 5:28 PM CST 2 unit of PRBCs started by anesthesia at bedside SUPERVISOR * Mabel Sosa RN - 05/29/2021 5:10 PM CST First unit of PRBCs started by anesthesia MD Kelly at bedside SUPERVISOR * Mabel Sosa RN - 05/29/2021 3:53 PM CST This RN at bedside continuously during patient pushing evaluating FHR SUPERVISOR documented in this encounter Miscellaneous Notes * Note - Blanche Bower RN - 05/31/2021 3:40 PM CST Mother states that is feeding without difficulty. Discussed obtaining pump for home use. Discussed normal progression in growth and normal parenting concerns. Instructed to call with needs or questions after discharge and visit virtual or in person support group as needed. Support and encouragement provided. SUPERVISOR * Plan of Care - Ryan Leigh RN - 05/31/2021 9:56 AM CST Problem: Activity: Goal: Will verbalize the importance of balancing activity with adequate rest periods Outcome: Progressing Goals: Clinical Goals for the Shift: Discharge instructions. Summary: Adequate for discharge. SUPERVISOR * Plan of Care - Mary Ellen Vargas RN - 05/30/2021 11:49 PM CST Problem: Activity: Goal: Will verbalize [...] Progressing Goals: Clinical Goals for the Shift: pain control < 4 Summary: Pt progressing well toward goals. Pain controlled on oral medication. Pt able to ambulate independently and care for self well. Voiding without difficulty. SUPERVISOR * [facility] 05/30/2021 12:38 PM CITY SUPERVISOR Liliana Velasco is a 30 y.o. female at 36w5d weeks gestation, dated by IVF=1 with Estimated Date of Delivery: 06/21/21. Her was notable for pre-eclampsia with severe features, obesity, gestational diabetes, and Crohn's disease without a history of perianal complications. Vertex presentation and GBS negative confirmed on admission. She presented for induction of labor. Her induction was started with Saldana balloon, misoprostol, then augmented with amniotomy and oxytocin. Epidural was placed for anesthesia. Patient progressed to complete and delivered a viable male infant with apgars 8 and 9 at one and five minutes of life respectively. Delivery was complicated by Hemor rhage . See L&D delivery note for full details. The patient was transferred to . Her course was uncomplicated following bakri balloon removal and vaginal packing removal. Prior to discharge, her pain was well controlled, she was voiding, passing gas, ambulating, and meeting all post milestones. #COVID-19: Positive # Heme: EBL 3000 mL [...] PPD#1 113. For PP 2hr gtt # Post DVT prophylaxis: The patient has the following MAJOR risk factors BMI >/= 40 and the following MINOR risk factors PPH (EBL >/= 1000 mL) and preeclampsia. enoxaparin 40 mg BID ordered for VTE prophylaxis held on PPD#1 The patient was consented and registered for remote blood pressure monitoring. A blood pressure cuff has been given to the patient. She has confirmed receipt of test message. Her AVS was updated withdischarge instructions on use of the remote blood pressure monitoring system. She will follow up in1 week for a blood pressure check in [facility]. Symptoms of preeclampsia have been reviewed. # Mother/Baby: The patient has chosen to breastfeed her infant and has chosen Natural Family Planning for contraception. SUPERVISOR SUPERVISOR SUPERVISOR SUPERVISOR SUPERVISOR * Note - Blanche Bower RN - 05/30/2021 11:12 AM CST Discussed normal behavior. Discussed benefits of breastmilk. Encouraged regular feeding andhand expression to increase milk supply. Discussed importance of frequent breast stimulation for milk supply. Support and encouragement provided. Encouraged to call for latch assistance as needed. Mother to be transferred to within the hour. Instructed parents to ask for pump as soon as they arrive on unit. SUPERVISOR * Plan of Care - Kathya Lorenz RN - 05/30/2021 8:33 AM CST Problem: Lack of Knowledge: Goal: Ability to state ways to decrease the risk of falls will improve Outcome: Progressing Problem: Safety: Goal: Will remain free from falls Outcome: Progressing Goal: Will remain free from injury from falls Outcome: Progressing Goal: Will remain free from falls and injury in home environment Outcome: Progressing Problem: Lack of Knowledge: Goal: Knowledge of disease or condition and prescribed therapeutic regimen will improve Outcome: Progressing Problem: Coping: Goal: Level of anxiety will decrease Outcome: Progressing Problem: Life Cycle: Goal: Will achieve delivery and avoid or minimize maternal and complications Outcome: Progressing Problem: Sensory: Goal: Pain level will decrease Outcome: Progressing Problem: Activity: Goal: Mobility will improve Outcome: Progressing Problem: Lack of Knowledge: Goal: Understanding of ways to prevent future skin breakdown will improve Outcome: Progressing Goal: Ability to identify appropriate dietary choices will improve Outcome: Progressing Problem: Nutritional: Goal: Dietary intake will improve Outcome: Progressing Goal: Ability to maintain a balanced intake and output will improve Outcome: Progressing Problem: Skin Integrity: Goal: Risk for impaired skin integrity will decrease Outcome: Progressing Goal: Ability to demonstrate warm and dry skin will improve Outcome: Progressing Goal: Circulation will improve to fullest extent possible Outcome: Progressing Goals: Clinical Goals for the Shift: Pain Control, Stable vitals, Remove Bakri, Ann with baby Summary: Progressing SUPERVISOR * Plan of Care - Aleida Hansen RN - 05/29/2021 9:54 PM CST Goals: Clinical Goals for the Shift: pain control; monitor bleeding; stable vitals Summary: Problem: Lack of Knowledge: Goal: Ability to state ways to decrease the risk of falls will improve Outcome: Progressing Problem: Safety: Goal: Will remain free from falls Outcome: Progressing Goal: Will remain free from injury from falls Outcome: Progressing Goal: Will remain free from falls and injury in home environment Outcome: Progressing Problem: Lack of Knowledge: Goal: Knowledge of disease or condition and prescribed therapeutic regimen will improve Outcome: Progressing Problem: Coping: Goal: Level of anxiety will decrease Outcome: Progressing Problem: Sensory: Goal: Pain level will decrease Outcome: Progressing Problem: Activity: Goal: Mobility will improve Outcome: Progressing Problem: Lack of Knowledge: Goal: Understanding of ways to prevent future skin breakdown will improve Outcome: Progressing Goal: Ability to identify appropriate dietary choices will improve Outcome: Progressing Problem: Nutritional: Goal: Dietary intake will improve Outcome: Progressing Goal: Ability to maintain a balanced intake and output will improve Outcome: Progressing SUPERVISOR * Significant Event - Karan Kelly MD - 05/29/2021 6:13 PM CITY SUPERVISOR OB Anesthesiology- Team Hemorrhage Note Team Hemorrhage called at 1614. Initial EBL estimated over 700cc. On initial exam, patient was maintaining patent airway, oxygenating well, normotensive. However tachycardic in the 120s. Patient had 18g in right hand. Additional 18g placed in left AC by anesthesia team and VBG sent. 1L LR bolus in pressure bag started. Given continuation of active bleeding, 4u PRBC prepared Initial VBG demonstrated Hgb 11, iCal 3.6. 500mg of calcium chloride administered. Multiple phenylephrine boluses (100-200mcg each) given during this time. Phenylephrine infusion started at 0.5mcg/kg/min and then increasedto 0.8mcg/kg/min. Patient continued to remain tachycardic with HR in the 140s-150s. At this time, EBL estimated 1500-2000ml, bakri balloon placed along with packing. Lowest BP 90/50. 1u PRBC started.HR trending down, BP improving and titrating phenylephrine down. Additional 1u PRBC administered, pressors off, followed by 250cc 5% Albumin, additional 500mg of calcium chloride given. Normotensive,NSR. UOP over two hours 225cc. Total EBL 3L. Assessment and Plan: Neuro: -Patient AxO/4 -Complaining of pain 2/2 bakri -Hydromorphone 0.5mg once, will continue to discuss with OB team -Epidural remains in place, 2cc/hr KVO, will remain in place to ensure that patient is not coagulopathic prior to removal CV: -Off pressors -Normotensive, NSR -CTM for hypotension and tachycardia Pulm: -Currently on room air, patent airway, oxygenating well -CTM for signs of fluid overload and pulm edema given hx of PreE FEN/Renal -Found to be hypocalcemic, total 1g CaCl given -UOP 225cc over two hours -Plan on repeat labs, BMP, iCal, and CTM UOP GI -Patient vomiting during hemorrhage, increased aspiration risk -Ice chips currently Heme: -2u PRBC given -Prior to transfusion, Hgb 6.8 -NEISHA pending -Repeat CBC Endo: -BG on VBG 404 -Repeat on Accucheck 127 Access- 18g PIVx2 LAC, RHand Staffed with Dr. Meneses, attending anesthesiologist Karan Kelly MD CA-2, Anesthesiology [facility] SUPERVISOR * L&D Delivery Note - Mariana Rivera MD - 05/29/2021 4:44 PM CST [facility] Vaginal Delivery Note Patient's Name: Liliana Velasco : 1990 Attending: Erick Nava Assisting: Mariana Rivera MD, Cici Stephen MD Clinic: [facility] Primary Diagnosis: Intrauterine at 36w5d, delivered Pre-eclampsia with severe features Obesity Gestational diabetes Crohn's disease Obstetrical Medical Risk Factors: Medical Conditions Diagnosis ??? Chronic diarrhea ??? Iron deficiency [...] Gestational diabetes mellitus (GDM) in third trimester ??? care following vaginal delivery Delivery method: Vaginal, Spontaneous [250] Anesthesia: Epidural [254] Membranes: Artificial rupture, clear fluid. Time ruptured prior to delivery: 22h 23m Antibiotics: none Delivery Date: 05/29/2021 Delivery Time: 3:53 PM Placenta Delivery Date & Time: 05/29/2021 4:01 PM Cord: 3 vessels [3] Delayed cord clamping: Yes, 60 seconds. Episiotomy: No Laceration: none EBL: 3000 mL : living 7 lb 5.5 oz (3.33 kg) male APGARs: 8 / 9 Disposition: Nursery Labor Summary: Liliana Velasco is a 30 y.o. female at 36w5d weeks gestation, dated by IVF=1 with Estimated Date of Delivery: 06/21/21. Her was notable for pre-eclampsia with severe features, obesity, gestational diabetes, and Crohn's disease without a history of perianal complications. Vertex presentation and GBS negative confirmed on admission. She presented for induction of labor. Her induction was started with Saldana balloon, misoprostol, then augmented with amniotomy and oxytocin. Epidural was placed for anesthesia. Patient progressed to complete and delivered a viable male infant. The cordwas clamped and cut and the baby was handed to mother for skin to skin. The third stage was actively managed with external uterine massage, gentle cord traction and pitocin. The placenta was delivered spontaneously and intact. There were no lacerations or tears. Excellent hemostasis was noted. All counts were correct before and after the delivery. Additional Procedures Performed: None Description of Additional Procedure Performed: N/A Complications: Hemorrhage Description of Complications: hemorrhage: - Following completion of delivery there was noted to be continued vaginal bleeding. Examination demonstrated uterine atony. Bimanual examination was performed with minimal improvement in uterine tone. Oxytocin was administered per standard protocol. The following agents were administered: IM hemabate (x2) and rectal misoprostol. - Tranexamic acid was administered. Team Hemorrhage was paged for additional assistance. Anesthesiaat bedside to push IV phenylephrine and obtain additional IV access. - At this time, continued bleeding was noted and additional evaluation was performed. There were novaginal lacerations. Evaluation of the cervix was performed with right angle and ring forceps and cervix confirmed intact without laceration. Given ongoing concern for atony, ultrasound was used for evaluation without evidence of retained products of conception. Banjo curettage was performed under ultrasound guidance. A bakri balloon was placed under ultrasound guidance. The balloon was filled to450 mL. A saldana catheter was placed. Vaginal packing was placed. - 4 units of blood were ordered. 2 units of blood were called for from blood bank. Dr. Erick Nava was present for the delivery and additional procedures and management of complications. Mariana Rivera MD 05/29/21 Cosigned by Erick Nava MD at 05/30/2021 8:10 AM CITY SUPERVISOR SUPERVISOR SUPERVISOR Associated attestation - Erick Nava MD - 05/30/2021 8:10 AM CITY SUPERVISOR I was present for delivery and management of the PPH * Plan of Care - Mabel Sosa RN - 05/29/2021 7:54 AM CST Problem: Lack of Knowledge: Goal: Ability to state ways to decrease the risk of falls will improve Outcome: Progressing Problem: Safety: Goal: Will remain free from falls Outcome: Progressing Goal: Will remain free from injury from falls Outcome: Progressing Goal: Will remain free from falls and injury in home environment Outcome: Progressing Problem: Lack of Knowledge: Goal: Knowledge of disease or condition and prescribed therapeutic regimen will improve Outcome: Progressing Problem: Coping: Goal: Level of anxiety will decrease Outcome: Progressing Problem: Life Cycle: Goal: Will achieve delivery and avoid or minimize maternal and complications Outcome: Progressing Problem: Sensory: Goal: Pain level will decrease Outcome: Progressing Problem: Activity: Goal: Mobility will improve Outcome: Progressing Problem: Lack of Knowledge: Goal: Understanding of ways to prevent future skin breakdown will improve Outcome: Progressing Goal: Ability to identify appropriate dietary choices will improve Outcome: Progressing Problem: Nutritional: Goal: Dietary intake will improve Outcome: Progressing Goal: Ability to maintain a balanced intake and output will improve Outcome: Progressing Problem: Skin Integrity: Goal: Risk for impaired skin integrity will decrease Outcome: Progressing Goal: Ability to demonstrate warm and dry skin will improve Outcome: Progressing Goal: Circulation will improve to fullest extent possible Outcome: Progressing Goals: Clinical Goals for the Shift: Labor progression, stable VS, adequate pain control Summary: SUPERVISOR * Plan of Peg - Yoko Wilkes RN - 05/28/2021 9:05 PM CST Problem: Lack of Knowledge: Goal: Ability to state ways to decrease the risk of falls will improve Outcome: Progressing Problem: Safety: Goal: Will remain free from falls Outcome: Progressing Goal: Will remain free from injury from falls Outcome: Progressing Goal: Will remain free from falls and injury in home environment Outcome: Progressing Problem: Lack of Knowledge: Goal: Knowledge of disease or condition and prescribed therapeutic regimen will improve Outcome: Progressing Problem: Coping: Goal: Level of anxiety will decrease Outcome: Progressing Problem: Life Cycle: Goal: Will achieve delivery and avoid or minimize maternal and complications Outcome: Progressing Problem: Sensory: Goal: Pain level will decrease Outcome: Progressing Goals: healthy mom, healthy baby, safe delivery, monitor BP, monitor BG, pain control Summary: SUPERVISOR * Plan of Wallace Werner RN - 05/28/2021 12:22 PM CST Goals: Clinical Goals for the Shift: iol monitier vital signs , and blood glucose Summary: Problem: Lack of Knowledge: Goal: Ability to state ways to decrease the risk of falls will improve 05/28/2021 1222 by Wallace Tinsley RN Outcome: Progressing 05/28/2021 1221 by Wallace Tinsley RN Outcome: Progressing Problem: Safety: Goal: Will remain free from falls 05/28/2021 1222 by Wallace Tinsley RN Outcome: Progressing 05/28/2021 1221 by Wallace Tinsley RN Outcome: Progressing Goal: Will remain free from injury from falls 05/28/2021 1222 by Wallace Tinsley RN Outcome: Progressing 05/28/2021 1221 by Wallace Tinsley RN Outcome: Progressing Goal: Will remain free from falls and injury in home environment 05/28/2021 1222 by Wallace Tinsley RN Outcome: Progressing 05/28/2021 1221 by Wallace Tinsley RN Outcome: Progressing Problem: Lack of Knowledge: Goal: Knowledge of disease or condition and prescribed therapeutic regimen will improve 05/28/2021 1222 by Wallace Tinsley RN Outcome: Progressing 05/28/2021 1221 by Wallace Tinsley RN Outcome: Progressing Problem: Coping: Goal: Level of anxiety will decrease 05/28/2021 1222 by Wallace Tinsley RN Outcome: Progressing 05/28/2021 1221 by Wallace Tinsley RN Outcome: Progressing Problem: Life Cycle: Goal: Will achieve delivery and avoid or minimize maternal and complications 05/28/2021 1222 by Wallace Tinsley RN Outcome: Progressing 05/28/2021 1221 by Wallace Tinsley RN Outcome: Progressing Problem: Sensory: Goal: Pain level will decrease 05/28/2021 1222 by Wallace Tinsley RN Outcome: Progressing 05/28/2021 1221 by Wallace Tinsley RN Outcome: Progressing SUPERVISOR * Plan of Care - Wallace Tinsley RN - 05/28/2021 12:22 PM CST Goals: Clinical Goals for the Shift: iol monitier vital signs , and blood glucose Summary: Problem: Lack of Knowledge: Goal: Ability to state ways to decrease the risk of falls will improve 05/28/2021 1222 by Wallace Tinsley RN Outcome: Progressing 05/28/2021 1221 by Wallace Tinsley RN Outcome: Progressing Problem: Safety: Goal: Will remain free from falls 05/28/2021 1222 by Wallace Tinsley RN Outcome: Progressing 05/28/2021 1221 by Wallace Tinsley RN Outcome: Progressing Goal: Will remain free from injury from falls 05/28/2021 1222 by Wallace Tinsley RN Outcome: Progressing 05/28/2021 1221 by Wallace Tinsley RN Outcome: Progressing Goal: Will remain free from falls and injury in home environment 05/28/2021 1222 by Wallace Tinsley RN Outcome: Progressing 05/28/2021 1221 by Wallace Tinsley RN Outcome: Progressing Problem: Lack of Knowledge: Goal: Knowledge of disease or condition and prescribed therapeutic regimen will improve 05/28/2021 1222 by Wallace Tinsley RN Outcome: Progressing 05/28/2021 1221 by Wallace Tinsley RN Outcome: Progressing Problem: Coping: Goal: Level of anxiety will decrease 05/28/2021 1222 by Wallace Tinsley RN Outcome: Progressing 05/28/2021 1221 by Wallace Tinsley RN Outcome: Progressing Problem: Life Cycle: Goal: Will achieve delivery and avoid or minimize maternal and complications 05/28/2021 1222 by Wallace Tinsley RN Outcome: Progressing 05/28/2021 1221 by Wallace Tinsley RN Outcome: Progressing Problem: Sensory: Goal: Pain level will decrease 05/28/2021 1222 by Wallace Tinsley RN Outcome: Progressing 05/28/2021 1221 by Wallace Tinsley RN Outcome: Progressing SUPERVISOR documented in this encounter Plan of Treatment Not on file documented as of this encounter Procedures Procedure Name Priority Date/Time Associated Diagnosis Comments POCT GLUCOSE DEVICE Routine 05/30/2021 7 :43 AM CITY SUPERVISOR EGFR Timed 05/30/2021 7:34 AM CITY SUPERVISOR DIFFERENTIAL AUTO Timed 05/30/2021 7:3 4 AM CITY SUPERVISOR CALCIUM, IONIZED Timed 05/30/2021 7:34 AM CITY SUPERVISOR CBC WITH AUTO DIFFERENTIAL Timed 05/30 7:34 AM CITY SUPERVISOR COMPREHENSIVE METABOLIC PANEL Timed 05/30/2021 7:34 AM CITY SUPERVISOR EGFR Timed 05/29/2021 9:09 PM CITY SUPERVISOR CALCIUM, IONIZED Timed 05/29/2021 9:09 PM CITY SUPERVISOR LACTATE, WHOLE BLOOD Timed 05/29/2021 9:09 PM CITY SUPERVISOR APTT Timed 05/29/2021 9:09 PM CITY SUPERVISOR PROTIME-INR Timed 05/29/2021 9:09 PM CITY SUPERVISOR FIBRINOGEN Timed 05/29/2021 9:09 PM CITY SUPERVISOR CBC WITHOUT DIFFERENTIAL Timed 022 9:09 PM CITY SUPERVISOR COMPREHENSIVE METABOLIC PANEL Timed 05/29/2021 9:09 PM CITY SUPERVISOR POCT GLUCOSE DEVICE Routine 05/29/2021 7 :58 PM CITY SUPERVISOR POCT GLUCOSE DEVICE Routine 05/29/2021 5 :35 PM CITY SUPERVISOR TRANSFUSE RED BLOOD CELLS Timed 2021 5:28 PM CITY SUPERVISOR POC BLOOD GAS AND CHEMISTRIES, ARTERIAL Routine 05/29/2021 5:27 PM CITY SUPERVISOR EGFR Timed 05/29/2021 5:20 PM CITY SUPERVISOR LYSIS INHIBITED THROMBOELASTOMETRY (APTEM) STAT 05/29/2021 5:20 PM CITY SUPERVISOR CRITICAL RESULT CALLBACK CHEMISTRY Timed 05/29/2021 5:20 PM CITY SUPERVISOR EXTRINSIC THROMBOELASTOMETRY (EXTEM) STAT 05/29/2021 5:20 PM CITY SUPERVISOR THROMBOCYTE INHIBITED FIBRINOGEN (FIBTEM) STAT 05/29/2021 5:20 PM CITY SUPERVISOR INTRINSIC THROMBOELASTOMETRY (INTEM) STAT 05/29/2021 5:20 PM CITY SUPERVISOR HEPARIN NEUTRALIZATION (HEPTEM) STAT 05/29/2021 5:20 PM CITY SUPERVISOR PROTIME-INR STAT 05/29/2021 5:20 PM CITY SUPERVISOR FIBRINOGEN STAT 05/29/2021 5:20 PM CITY SUPERVISOR CBC WITHOUT DIFFERENTIAL Timed 022 5:20 PM CITY SUPERVISOR COMPREHENSIVE METABOLIC PANEL Timed 05/29/2021 5:20 PM CITY SUPERVISOR TRANSFUSE RED BLOOD CELLS Timed 2021 5:10 PM CITY SUPERVISOR POC BLOOD GAS AND CHEMISTRIES, ARTERIAL Routine 05/29/2021 4:37 PM CITY SUPERVISOR PREPARE RBC STAT 05/29/2021 4:23 PM CITY SUPERVISOR POCT GLUCOSE DEVICE Routine 05/29/2021 2 :50 PM CITY SUPERVISOR POCT GLUCOSE DEVICE Routine 05/29/2021 1 2:14 PM CITY SUPERVISOR POCT GLUCOSE DEVICE Routine 05/29/2021 1 0:14 AM CITY SUPERVISOR SURGICAL PATHOLOGY Routine 05/29/2021 10 :01 AM CITY SUPERVISOR POCT GLUCOSE DEVICE Routine 05/29/2021 8 :03 AM CITY SUPERVISOR POCT GLUCOSE DEVICE Routine 05/29/2021 6 :19 AM CITY SUPERVISOR POCT GLUCOSE DEVICE Routine 05/29/2021 4 :03 AM CITY SUPERVISOR POCT GLUCOSE DEVICE Routine 05/29/2021 2 :04 AM CITY SUPERVISOR POCT GLUCOSE DEVICE Routine 05/28/2021 1 1:51 PM CITY SUPERVISOR POCT GLUCOSE DEVICE Routine 05/28/2021 1 0:10 PM CITY SUPERVISOR POCT GLUCOSE DEVICE Routine 05/28/2021 8 :19 PM CITY SUPERVISOR POCT GLUCOSE DEVICE Routine 05/28/2021 6 :07 PM CITY SUPERVISOR POCT GLUCOSE DEVICE Routine 05/28/2021 4 :12 PM CITY SUPERVISOR POCT GLUCOSE DEVICE Routine 05/28/2021 1 :44 PM CITY SUPERVISOR TYPE AND SCREEN STAT 05/28/2021 11:51 AM CITY SUPERVISOR INFLUENZA A/B, RSV, AND COVID-19 PCR Routine 05/28/2021 11:42 AM CITY SUPERVISOR POCT URINALYSIS DIPSTICK Routine 022 10:58 AM CITY SUPERVISOR EGFR STAT 05/28/2021 10:02 AM CITY SUPERVISOR DIFFERENTIAL AUTO STAT 05/28/2021 10: 02 AM CITY SUPERVISOR CBC WITH AUTO DIFFERENTIAL STAT 05/28 10:02 AM CITY SUPERVISOR PROTEIN / CREATININE RATIO, URINE, RANDOM Routine 05/28/2021 10:02 AM CITY SUPERVISOR URIC ACID STAT 05/28/2021 10:02 AM CITY SUPERVISOR COMPREHENSIVE METABOLIC PANEL STAT 05/28/2021 10:02 AM CITY SUPERVISOR GROUP B STREPTOCOCCUS CULTURE Routine 05/24/2021 documented in this encounter Results * POCT glucose (05/30/2021 7:43 AM CITY SUPERVISOR) [facility] Glucose, POC 113 70 - 199 mg/dL [facility] Blood 05/30/2021 7:43 AM CITY SUPERVISOR 05/30/2021 7:43 AM CITY SUPERVISOR Erick Nava MD LAB POCT ORDERABL ES - DEVICE Final Result Performing Organization Address [facility] Co ut Phone Number [facility] [place] [address] * eGFR (05/30/2021 7:34 AM CITY SUPERVISOR) eGFR >90 90 - 130 mL/min/1. 73 m2 [facility] Comment: Interpretive Data Reference Interval [...] interpretive data was last reviewed 2021. Blood 05/30/2021 7:34 AM CITY SUPERVISOR 05/30/2021 8:02 AM CITY SUPERVISOR Erick Nava MD LAB BLOOD ORDERAB LES Final Result [facility] [place] [address] * (ABNORMAL) Differential, auto (05/30/2021 7:34 AM CITY SUPERVISOR) Neutrophil abs 16.3(H) 1.7 - 6.5 K/cumm [facility] Imm gran abs 0.1 0.0 - 0.1 K/cumm [facility] Lymphocyte abs 3.0 0.8 - 3.3 K/cumm [facility] Monocyte abs 1.1(H) 0.2 - 0.8 K/cumm [facility] Eosinophil abs 0.1 0.0 - 0.5 K/cumm [facility] Basophil abs 0.0 0.0 - 0.1 K/cumm [facility] Neutrophil pct 79.1 % [facility] Comment: Interpretive Data Percent cell count reference ranges are not reported, since discordance with absolute values may lead to misinterpretation of CBC data. Current Interpretive Data was last revised on 2017. Imm gran pct 0.7 % [facility] Comment: Interpretive Data Percent cell count reference ranges are not reported, since discordance with absolute values may lead to misinterpretation of CBC data. Current Interpretive Data was last revised on 2017. Lymphocyte pct 14.4 % [facility] Comment: Interpretive Data Percent cell count reference ranges are not reported, since discordance with absolute values may lead to misinterpretation of CBC data. Current Interpretive Data was last revised on 2017. Monocyte pct 5.1 % [facility] Comment: Interpretive Data Percent cell count reference ranges are not reported, since discordance with absolute values may lead to misinterpretation of CBC data. Current Interpretive Data was last revised on 2017. Eosinophil pct 0.5 % [facility] Comment: Interpretive Data Percent cell count reference ranges are not reported, since discordance with absolute values may lead to misinterpretation of CBC data. Current Interpretive Data was last revised on 2017. Basophil pct 0.2 % [facility] Comment: Interpretive Data Percent cell count reference ranges are not reported, since discordance with absolute values may lead to misinterpretation of CBC data. Current Interpretive Data was last revised on 2017. Blood 05/30/2021 7:34 AM CITY SUPERVISOR 05/30/2021 8:02 AM CITY SUPERVISOR Erick Nava MD LAB BLOOD ORDERAB LES Final Result Performing Organization Address City/[facility]/ZIP Co de Phone Number [facility] [place] [employer] [place] [address] * (ABNORMAL) Calcium, ionized (05/30/2021 7:34 AM CITY SUPERVISOR) Calcium, Ionized 4.44(L) 4.50 - 5.10 mg/dL [facility] Blood 05/30/2021 7:34 AM CITY SUPERVISOR 05/30/2021 8:02 AM CITY SUPERVISOR Mariana Rivera MD LAB BLOOD ORDERABLES Final Resul t Performing Organization Address [facility] Co de Phone Number [facility] [place] [address] * (ABNORMAL) Comprehensive metabolic panel (05/30/2021 7:34 AM CITY SUPERVISOR) Sodium 140 135 - 145 mmol/L [facility] Potassium, pl 3.8 3.3 - 4.9 mmol/L [facility] Chloride 110 97 - 110 mmol/L [facility] CO2 24 22 - 32 mmol/L [facility] Anion gap 6 2 - 15 mmol/L [facility] BUN 5(L) 8 - 25 mg/dL [facility] Creatinine 0.67 0.60 - 1.10 mg/dL [facility] Glucose 110 70 - 199 mg/dL [facility] Comment: Interpretive Data Fasting glucose [...] interpretive data was last revised 2017. Calcium 7.7(L) 8.5 - 10.3 mg/dL [facility] Bilirubin, total 0.3 0.1 - 1.2 mg/dL [facility] Protein, pl 5.1(L) 6.5 - 8.5 g/dL [facility] Albumin 2.5(L) 3.5 - 5.0 g/dL [facility] Alk phos 99 40 - 130 Units/L [facility] ALT 13 7 - 45 Units/L [facility] AST 28 10 - 45 Units/L [facility] Blood 05/30/2021 7:34 AM CITY SUPERVISOR 05/30/2021 8:02 AM CITY SUPERVISOR Erick Nava MD LAB BLOOD ORDERAB LES Final Result [facility] [place] [address] * (ABNORMAL) CBC with auto differential (05/30/2021 7:34 AM CITY SUPERVISOR) WBC 20.6(H) 3.8 - 9.9 K/cumm [facility] Hgb 8.0(L) 11.9 - 15.5 g/dL [facility] Hct 24.0(L) 35.6 - 45.5 % [facility] Plt 244 150 - 400 K/cumm [facility] MPV 10.7 9.1 - 12.3 fL [facility] RBC 2.96(L) 3.90 - 5.20 M/cumm [facility] MCV 81.1(L) 81.3 - 96.4 fL [facility] MCH 27.0(L) 27.1 - 33.3 pg [facility] MCHC 33.3 32.3 - 35.7 g/dL [facility] RDW CV 15.5(H) 11.1 - 14.9 % [facility] RDW SD 44.2 35.7 - 48.1 fL [facility] NRBC abs 0.00 0.00 - 0.01 K/cumm [facility] Blood 05/30/2021 7:34 AM CITY SUPERVISOR 05/30/2021 8:02 AM CITY SUPERVISOR Erick Nava MD LAB BLOOD ORDERAB LES Final Result Performing Organization Address [facility] Co de Phone Number [facility] [place] [address] * Transfuse RBC (05/29/2021 9:22 PM CITY SUPERVISOR) Blood specimen (specimen) Erick Nava MD BLOOD TRANSFUSION ORDERABLES Final Result Performing Organization Address [facility] de Phone Number [facility] Department [place] [address] * Transfuse RBC: 2 Units (05/29/2021 9:22 PM CITY SUPERVISOR) Blood specimen (specimen) Erick Nava MD BLOOD TRANSFUSION ORDERABLES Final Result * eGFR (05/29/2021 9:09 PM CITY SUPERVISOR) [facility] eGFR >90 90 - 130 mL/min/1. 73 m2 [facility] Comment: Interpretive Data Reference Interval [...] interpretive data was last reviewed 2021. Blood 05/29/2021 9:09 PM CITY SUPERVISOR 05/29/2021 9:35 PM CITY SUPERVISOR us Erick Nava MD LAB BLOOD ORDERAB LES Final Result Performing Organization Address City/[facility]/ZIP Co de Phone Number [facility] Department [place] [address] * Lactate, whole blood (05/29/2021 9:09 PM CITY SUPERVISOR) Lactate, bld 1.5 0.7 - 2.0 mmol/L [facility] Blood 05/29/2021 9:09 PM CITY SUPERVISOR 05/29/2021 9:22 PM CITY SUPERVISOR Erick Nava MD LAB BLOOD ORDERAB LES Final Result [facility] Department [place] [employer] [place] [address] * (ABNORMAL) Calcium, ionized (05/29/2021 9:09 PM CITY SUPERVISOR) Calcium, Ionized 3.93(L) 4.50 - 5.10 mg/dL [facility] Blood 05/29/2021 9:09 PM CITY SUPERVISOR 05/29/2021 9:22 PM CITY SUPERVISOR Erick Nava MD LAB BLOOD ORDERAB LES Final Result Performing Organization Address [facility] Co de Phone Number [facility] [place] [address] * (ABNORMAL) aPTT (05/29/2021 9:09 PM CITY SUPERVISOR) aPTT 26(L) 27 - 37 sec [facility] Comment: Interpretive Data Therapeutic heparin range: 60.0 - 94.0 seconds. Based on correlation with therapeutic heparin activity range of 0.3-0.7 Units/mL. Current interpretive data was last revised on 2020. Blood 05/29/2021 9:09 PM CITY SUPERVISOR 05/29/2021 9:30 PM CITY SUPERVISOR Erick Nava MD LAB BLOOD ORDERAB LES Final Result Performing Organization Address [facility] de Phone Number [facility] [place] [address] * Protime-INR (05/29/2021 9:09 PM CITY SUPERVISOR) PT 11.0 9.5 - 13.6 sec [facility] INR 1.0 0.9 - 1.2 [facility] Comment: Interpretive data Oral anticoagulant therapeutic ranges: Venous thromboembolism prophylaxis or treatment: 2.0-3.0 CARDIOLOGY Standard range: 2.0-3.0 High-intensity range: 2.5-3.5 Refer to indication-specific guidelines for appropriate target ranges for prosthetic heart valve replacement. Current interpretive data was last revised on 2019. Blood 05/29/2021 9:09 PM CITY SUPERVISOR 05/29/2021 9:30 PM CITY SUPERVISOR Erick Nava MD LAB BLOOD ORDERAB LES Final Result Performing Organization Address [facility] Co de Phone Number [facility] [place] [address] * (ABNORMAL) Fibrinogen (05/29/2021 9:09 PM CITY SUPERVISOR) Pathologist [facility] [place] Fibrinogen 466(H) 170 - 400 mg/dL [facility] Blood 05/29/2021 9:09 PM CITY SUPERVISOR 05/29/2021 9:30 PM CITY SUPERVISOR Erick Nava MD LAB BLOOD ORDERAB LES Final Result [facility] Department [place] [address] * (ABNORMAL) Comprehensive metabolic panel (05/29/2021 9:09 PM CITY SUPERVISOR) Pathologist [facility] [place] Sodium 134(L) 135 - 145 mmol/L [facility] Potassium, pl 3.5 3.3 - 4.9 mmol/L [facility] Chloride 104 97 - 110 mmol/L [facility] CO2 21(L) 22 - 32 mmol/L [facility] Anion gap 9 2 - 15 mmol/L [facility] BUN 6(L) 8 - 25 mg/dL [facility] Creatinine 0.70 0.60 - 1.10 mg/dL [facility] Glucose 114 70 - 199 mg/dL [facility] Comment: Interpretive Data Fasting glucose [...] interpretive data was last revised 2017. Calcium 7.0(L) 8.5 - 10.3 mg/dL [facility] Bilirubin, total 1.4(H) 0.1 - 1.2 mg/dL [facility] Comment:Reviewed Protein, pl 5.1(L) 6.5 - 8.5 g/dL [facility] Albumin 2.3(L) 3.5 - 5.0 g/dL [facility] Comment:Reviewed Alk phos 111 40 - 130 Units/L [facility] ALT 11 7 - 45 Units/L [facility] AST 28 10 - 45 Units/L [facility] Blood 05/29/2021 9:09 PM CITY SUPERVISOR 05/29/2021 9:35 PM CITY SUPERVISOR Erick Nava MD LAB BLOOD ORDERAB LES Final Result [facility] [place] [address] * (ABNORMAL) CBC without differential (05/29/2021 9:09 PM CITY SUPERVISOR) WBC 28.3(H) 3.8 - 9.9 K/cumm [facility] Hgb 9.2(L) 11.9 - 15.5 g/dL [facility] Hct 26.8(L) 35.6 - 45.5 % [facility] Plt 239 150 - 400 K/cumm [facility] MPV 10.7 9.1 - 12.3 fL [facility] RBC 3.32(L) 3.90 - 5.20 M/cumm [facility] MCV 80.7(L) 81.3 - 96.4 fL [facility] Comment:MCV delta due to yovani arent blood transfusion. MCH 27.7 27.1 - 33.3 pg [facility] MCHC 34.3 32.3 - 35.7 g/dL [facility] RDW CV 14.5 11.1 - 14.9 % [facility] RDW SD 42.2 35.7 - 48.1 fL [facility] NRBC abs 0.00 0.00 - 0.01 K/cumm [facility] Blood 05/29/2021 9:09 PM CITY SUPERVISOR 05/29/2021 9:35 PM CITY SUPERVISOR Erick Nava MD LAB BLOOD ORDERAB LES Final Result Performing Organization Address [facility] [place] [address] * POCT glucose (05/29/2021 7:58 PM CITY SUPERVISOR) Glucose, POC 131 70 - 199 mg/dL [facility] Blood 05/29/2021 7:58 PM CITY SUPERVISOR 05/29/2021 7:58 PM CITY SUPERVISOR Erick Nava MD LAB POCT ORDERABL ES - DEVICE Final Result Performing Organization Address [facility] [place] [address] * POCT glucose (05/29/2021 5:35 PM CITY SUPERVISOR) [facility] Signature Glucose, POC 127 70 - 199 mg/dL [facility] Blood 05/29/2021 5:35 PM CITY SUPERVISOR 05/29/2021 5:35 PM CITY SUPERVISOR Erick Nava MD LAB POCT ORDERABL ES - DEVICE Final Result Performing Organization Address [facility] de Phone Number [facility] Department [place] [employer] [place] [address] * Transfuse RBC (05/29/2021 5:27 PM CITY SUPERVISOR) Blood specimen (specimen) Erick Nava MD BLOOD TRANSFUSION ORDERABLES Final Result Performing Organization Address [facility] Co de Phone Number [facility] [place] [employer] [place] [address] * (ABNORMAL) POC Blood Gas and Chemistries, Arterial - (05/29/2021 5:27 PM CITY SUPERVISOR) pH, Art POC 7.25(L) 7.35 - 7.45 [facility] pCO2, Art POC 34(L) 35 - 45 mmHg [facility] pO2, Art POC 24(C) 83 - 108 mmHg [facility] Na, POC 136 135 - 145 mmol/L [facility] K POC 3.2(L) 3.3 - 4.9 mmol/L [facility] Comment: Interpretive Data Unable to assess hemolysis. ??Invitro hemolysis causes falsely elevated potassium. Current Interpretive Data was last revised on 2019. Cl, POC 106 97 - 110 mmol/L [facility] Ionized Ca, POC 3.88(L) 4.50 - 5.10 mg/dL [facility] Glucose, POC 404(H) 70 - 199 mg/dL [facility] Lactate, POC 6.2(C) 0.7 - 2.2 mmol/L [facility] SO2 (mary) arterial 30(C) 90 - 95 % [facility] Base excess, POC -11.3 mmol/L [facility] HCO3, Art POC 15(L) 20 - 30 mmol/L [facility] Hct, POC 22.0(L) 36.3 - 45.3 % [facility] O2 Sat, Art POC (Calc) 32 % [facility] Total Hb, POC 7.4(L) 11.9 - 15.5 g/dL [facility] Blood 05/29/2021 5:27 PM CITY SUPERVISOR 05/29/2021 5:27 PM CITY SUPERVISOR Erick Nava MD LAB POCT ORDERABL ES - DEVICE Final Result [facility] Department [place] [address] * Critical Result Callback Chemistry (05/29/2021 5:20 PM CITY SUPERVISOR) Date Notified [id number] [facility] Time Notified 18:24 [facility] TestName glucose, calcium RAIZA LIVE Called/Read Back ania [facility] Credentials RN RAIZA LIVE Called By justen [facility] Blood 05/29/2021 5:20 PM CITY SUPERVISOR 05/29/2021 5:43 PM CITY SUPERVISOR us Jane Hunter MD LAB BLOOD ORDERAB LES Final Result [facility] [place] [address] * eGFR (05/29/2021 5:20 PM CITY SUPERVISOR) eGFR >90 90 - 130 mL/min/1. 73 m2 RAIZA [facility] Comment: Interpretive Data Reference Interval Normal ?>/= [...] interpretive data was last reviewed 2021. Blood 05/29/2021 5:20 PM CITY SUPERVISOR 05/29/2021 5:43 PM CITY SUPERVISOR Jane Hunter MD LAB BLOOD ORDERAB LES Final Result Performing Organization Address [facility] Co de Phone Number [facility] [place] [employer] [place] [address] * Fibrinogen (05/29/2021 5:20 PM CITY SUPERVISOR) Fibrinogen 364 170 - 400 mg/dL [facility] Blood 05/29/2021 5:20 PM CITY SUPERVISOR 05/29/2021 5:29 PM CITY SUPERVISOR Lincoln Vuong MD LAB BLOOD ORDERABLES Final Res ult Performing Organization Address [facility] [place] [address] * Protime-INR (05/29/2021 5:20 PM CITY SUPERVISOR) Pathologist [facility] [place] PT 11.8 9.5 - 13.6 sec [facility] INR 1.1 0.9 - 1.2 [facility] Comment: Interpretive data Oral anticoagulant therapeutic ranges: Venous thromboembolism prophylaxis or treatment: 2.0-3.0 CARDIOLOGY Standard range: 2.0-3.0 High-intensity range: 2.5-3.5 Refer to indication-specific guidelines for appropriate target ranges for prosthetic heart valve replacement. Current interpretive data was last revised on 2019. Blood 05/29/2021 5:20 PM CITY SUPERVISOR 05/29/2021 5:29 PM CITY SUPERVISOR us Lincoln Vuong MD LAB BLOOD ORDERABLES Final Res ult Performing Organization Address [facility] Co de Phone Number [facility] [employer] [place] [address] * Thrombocyte inhibited fibrinogen (FIBTEM) (05/29/2021 5:20 PM CITY SUPERVISOR) Maximum Clot Firm-Fibrinogen 28 9 - 29 mm [facility] Blood 05/29/2021 5:20 PM CITY SUPERVISOR 05/29/2021 6:17 PM CITY SUPERVISOR Lincoln Vuong MD LAB BLOOD ORDERABLES Edited [facility] Performing Organization Address [facility] Co de Phone Number RAIZA LIVE [facility] [place] [address] * Lysis inhibited thromboelastometry (APTEM) (05/29/2021 5:20 PM CITY SUPERVISOR) Clot Time-Lysis Inhibitor 50 38 - 78 sec [facility] Clot Form Time-Lysis Inhibitor 65 48 - 144 sec [facility] Angle-Lysis Inhibitor 77 63 - 82 Degree [facility] Maximum Clot Firmness-Lysis Inhib 73 53 - 74 mm [facility] Lysis 30 Index-Lysis Inhib 100 85 - 100 % [facility] Blood 05/29/2021 5:20 PM CITY SUPERVISOR 05/29/2021 6:17 PM CITY SUPERVISOR us Lincoln Vuong MD LAB BLOOD ORDERABLES Edited [facility] Performing Organization Address [facility] de Phone Number RAIZA LIVE [facility] [place] [address] * (ABNORMAL) Intrinsic thromboelastometry (INTEM) (05/29/2021 5:20 PM CITY SUPERVISOR) Clotting Time 122(L) 138 - 192 sec [facility] Clot Formation Time 48 40 - 111 sec [facility] Alpha Angle 80 70 - 83 Degree [facility] Maximum Clot Firmness 73 53 - 73 mm [facility] Maximum Lysis Index 100 86 - 100 % [facility] Blood 05/29/2021 5:20 PM CITY SUPERVISOR 05/29/2021 6:17 PM CITY SUPERVISOR Lincoln Vuong MD LAB BLOOD ORDERABLES Edited [facility] Performing Organization Address [facility] Co de Phone Number [facility] Department [place] [address] * (ABNORMAL) Heparin neutralization (HEPTEM) (05/29/2021 5:20 PM CITY SUPERVISOR) [facility] Clotting Time-heparin 126(L) 131 - 196 sec [facility] Clot Formation Time-Heparin 61 42 - 129 sec [facility] Alpha Angle-heparin 77 67 - 83 Degree [facility] Maximum Clot Firmness-Hepar in 67 50 - 70 mm [facility] Maximum Lysis Index-Heparin 100 86 - 100 % [facility] Blood 05/29/2021 5:20 PM CITY SUPERVISOR 05/29/2021 6:17 PM CITY SUPERVISOR us Lincoln Vuong MD LAB BLOOD ORDERABLES Edited Re sult - Final Performing Organization Address [facility] Co de Phone Number [facility] [place] [address] * Extrinsic thromboelastometry (EXTEM) (05/29/2021 5:20 PM CITY SUPERVISOR) [facility] Clotting Time-Extrinsic 51 42 - 60 sec [facility] Clot Formation Time-Extrinsic 62 45 - 131 sec [facility] Angle-Extrinsic 77 65 - 83 Degree [facility] Max Clot Firmness-Extrin sic 71 53 - 75 mm [facility] Lysis 30-Extrinsic 100 85 - 100 % [facility] Blood 05/29/2021 5:20 PM CITY SUPERVISOR 05/29/2021 6:17 PM CITY SUPERVISOR Lincoln Vuong MD LAB BLOOD ORDERABLES Edited Re sult - Final Performing Organization Address City/[facility]/ZIP Co de Phone Number [facility] [place] [address] * (ABNORMAL) Comprehensive metabolic panel (05/29/2021 5:20 PM CITY SUPERVISOR) Sodium 137 135 - 145 mmol/L [facility] Potassium, pl 3.2(L) 3.3 - 4.9 mmol/L [facility] Chloride 109 97 - 110 mmol/L [facility] CO2 17(L) 22 - 32 mmol/L [facility] Anion gap 11 2 - 15 mmol/L [facility] BUN 4(L) 8 - 25 mg/dL [facility] Creatinine 0.58(L) 0.60 - 1.10 mg/dL [facility] Glucose 490(C) 70 - 199 mg/dL [facility] Comment: Reviewed Interpretive Data Fasting glucose >/= 126 mg/dl [...] interpretive data was last revised 2017. Calcium 6.0(C) 8.5 - 10.3 mg/dL [facility] Comment:Reviewed Bilirubin, total 0.4 0.1 - 1.2 mg/dL [facility] Protein, pl 4.0(L) 6.5 - 8.5 g/dL [facility] Albumin 1.5(L) 3.5 - 5.0 g/dL [facility] Comment:Reviewed Alk phos 96 40 - 130 Units/L [facility] ALT 10 7 - 45 Units/L [facility] AST 18 10 - 45 Units/L [facility] Blood 05/29/2021 5:20 PM CITY SUPERVISOR 05/29/2021 5:43 PM CITY SUPERVISOR us Jane Hunter MD LAB BLOOD ORDERAB LES Final Result [facility] [place] [address] * (ABNORMAL) CBC without differential (05/29/2021 5:20 PM CITY SUPERVISOR) [facility] WBC 26.1(H) 3.8 - 9.9 K/cumm [facility] Hgb 6.8(L) 11.9 - 15.5 g/dL [facility] Comment:Hemoglobin delta due to active bleeding. reported to JOSE LOPES RN Hct 21.5(L) 35.6 - 45.5 % [facility] Plt 269 150 - 400 K/cumm [facility] Comment:No clot detected in sample. MPV 11.2 9.1 - 12.3 fL [facility] RBC 2.44(L) 3.90 - 5.20 M/cumm [facility] MCV 88.1 81.3 - 96.4 fL [facility] Comment:MCV delta due to yovani arent blood transfusion. MCH 27.9 27.1 - 33.3 pg [facility] MCHC 31.6(L) 32.3 - 35.7 g/dL [facility] RDW CV 14.1 11.1 - 14.9 % [facility] RDW SD 44.3 35.7 - 48.1 fL [facility] NRBC abs 0.00 0.00 - 0.01 K/cumm [facility] Blood 05/29/2021 5:20 PM CITY SUPERVISOR 05/29/2021 5:43 PM CITY SUPERVISOR us Jane Hunter MD LAB BLOOD ORDERAB LES Final Result [facility] Department [place] [address] * (ABNORMAL) POC Blood Gas and Chemistries, Arterial - (05/29/2021 4:37 PM CITY SUPERVISOR) [facility] pH, Art POC 7.30(L) 7.35 - 7.45 [facility] pCO2, Art POC 40 35 - 45 mmHg [facility] pO2, Art POC <20(C) 83 - 108 mmHg [facility] Na, POC 133(L) 135 - 145 mmol/L [facility] K POC 3.3 3.3 - 4.9 mmol/L [facility] Comment: Interpretive Data Unable to assess hemolysis. ??Invitro hemolysis causes falsely elevated potassium. Current Interpretive Data was last revised on 2019. Cl, POC 101 97 - 110 mmol/L [facility] Ionized Ca, POC 3.63(L) 4.50 - 5.10 mg/dL [facility] Glucose, POC 100 70 - 199 mg/dL [facility] Lactate, POC 3.6(H) 0.7 - 2.2 mmol/L [facility] SO2 (mary) arterial 18(C) 90 - 95 % [facility] Base excess, POC -6.3 mmol/L [facility] HCO3, Art POC 20 20 - 30 mmol/L [facility] Hct, POC 34.0(L) 36.3 - 45.3 % [facility] O2 Sat, Art POC (Calc) 21 % [facility] Total Hb, POC 11.2(L) 11.9 - 15.5 g/dL [facility] Blood 05/29/2021 4:37 PM CITY SUPERVISOR 05/29/2021 4:37 PM CITY SUPERVISOR Erick Nava MD LAB POCT ORDERABL ES - DEVICE Final Result [facility] [place] [address] * Prepare RBC: 4 Units (05/29/2021 4:23 PM CITY SUPERVISOR) Product code [id number] [facility] Unit Number [id number] [facility] Product Blood Type BPOS [facility] Dispense Status PRESUMED TRANSFUSED [facility] Product code [id number] [facility] Unit Number [id number] [facility] Product Blood Type BPOS [facility] Dispense Status PRESUMED TRANSFUSED [facility] Product code [id number] [facility] Unit Number [id number] [facility] Product Blood Type BPOS [facility] Dispense Status RETURNED [facility] Product code [id number] [facility] Unit Number [id number] [facility] Product Blood Type BPOS [facility] Dispense Status RETURNED [facility] Blood 05/29/2021 4:23 PM CITY SUPERVISOR 05/29/2021 4:23 PM CITY SUPERVISOR Narrative [facility] - 05/30/2021 8:48 AM CITY SUPERVISOR Are special requirements needed? (All products are leukoreduced and CMV- safe)- >No Date required:-[id number] LRRBC # of [id number] Reasons:-Hemorrhagic shock/Life-threatening bleeding} us Lincoln Vuong MD BLOOD BANK PRODUCT ORDERABLES Final Result Performing Organization Address [facility] Co de Phone Number [facility] [place] [employer] [place] [address] * POCT glucose (05/29/2021 2:50 PM CITY SUPERVISOR) Glucose, POC 82 70 - 199 mg/dL [facility] Blood 05/29/2021 2:50 PM CITY SUPERVISOR 05/29/2021 2:50 PM CITY SUPERVISOR us Erick Nava MD LAB POCT ORDERABL ES - DEVICE Final Result Performing Organization Address [facility] Co de Phone Number [facility] [place] [employer] [place] [address] * POCT glucose (05/29/2021 12:14 PM CITY SUPERVISOR) Glucose, POC 86 70 - 199 mg/dL [facility] Blood 05/29/2021 12:1 4 PM CITY SUPERVISOR 05/29/2021 12:14 PM CITY SUPERVISOR us Erick Nava MD LAB POCT ORDERABL ES - DEVICE Final Result Performing Organization Address [facility] Co de Phone Number [facility] [place] [address] * POCT glucose (05/29/2021 10:14 AM CITY SUPERVISOR) Glucose, POC 98 70 - 199 mg/dL [facility]IZ[facility] Blood 05/29/2021 10:1 4 AM CITY SUPERVISOR 05/29/2021 10:14 AM CITY SUPERVISOR Erick Nava MD LAB POCT ORDERABL ES - DEVICE Final Result [facility] [place] [address] * Surgical pathology (05/29/2021 10:01 AM CITY SUPERVISOR) Placenta 05/29/2021 10:0 1 AM CITY SUPERVISOR 05/30/2021 8:45 AM CITY SUPERVISOR Narrative 06/04/2021 11:37 AM CITY SUPERVISOR EPIC results best viewed via link to PDF [facility] [place] [address] Note to Patients: This report may contain [...] LILIANA VELASCO Gender: ??F : ??1990 (Age: 30) Address: ??[address] [place] [address] [facility] #: ??[id number] Taken:05/29/2021 Received:05/30/2021 Reported: 06/04/2021 Patient Type: [facility] Inpatient ?? Service: Obstetrics Location: [facility] ??[address] Physician(s): ??Mariana Rivera, MPHS Diagnosis: Placenta, vaginal delivery ? - 721.2 g, appropriate for gestational age, near-term chapin placenta ? 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 - Three vessel umbilical cord with stromal hemorrhage amxw/06/03/2021 22:05 By this signature, I attest that the above diagnosis is based upon my personal examination of the slides(and/or other material indicated in the diagnosis). Yudi Fang M.D. Report Electronically Reviewed and Signed Out By ??Yudi Fang M.D. 06/04/2021 11:37:02 Microscopic Description and Comment: Microscopic examination substantiates the above cited diagnosis. Mary Ellen Oneal M.D., PhD History: The patient is a 30-year-old woman at 36 weeks 5 days gestation with a history of Crohn's disease and obesity with a complicated by preeclampsia with severe features, gestational diabetes, hemorrhage, and COVID-19 infection at time of delivery. Operative procedure: Vaginal delivery. Specimen(s) Received: A: Placenta, ??36 weeks and 5 days Gross Description: The specimen is received in a single formalin filled container, labeled with the patient's identifiers. A. ?Received fixed, labeled with the patient's identifiers, is a 721.2 gram, 22.2 x 16.5 x 3.1 cm placental disc with attached cord and membranes. The 22.5 x 2.0 cm three vessel umbilical cord inserts paracentrally, 4.2 cm from the nearest disc margin. At the insertion of the umbilical cord to the placenta, it is markedly dilated, with a diameter of 3.0 cm with hemorrhage surrounding blood vessels. No knots or other lesions are identified. In the same container is a separate 15.0 cm length of umbilical cord. The membranes are ortega and translucent and attached to the disc margin, and have a site of rupture 9.0 cm from the nearest disc margin. The surface is blue-bryan with white plaques consistent with subchorionic fibrin deposition accounting for 5% of the total surface. The vessels arborize in the normal pattern and are unremarkable. The maternal surface is complete, with gritty, weblike white deposits on the surface accounting for 20% of the total maternal surface. Sections show a beefy red parenchyma with no lesions. Labeled A1- umbilical cord and membranes; A2-dilated umbilical cord with hemorrhage at insertion to placental disc; A3-section of placenta with subchorionic fibrin; A4-section of placenta with gritty maternal surface. Jar 4. erg05/31/2021 14:51 Gross Resident:Cristy Escalona M.D. By this signature, I attest that the above diagnosis is based upon my personal examination of the slides(and/or other material). Addenda/Procedures The performance characteristics of some immunohistochemical stains, fluorescence in-situ hybridization tests and immunophenotyping by flow cytometry cited in this report (if any) were determined by the Surgical Pathology and Flow Cytometry Departments at [facility] as part of an ongoing quality cloth tester program and in compliance with federally mandated [...] Surgical Pathology and Flow Cytometry Departments of [facility]. ??It has not been cleared or approved by the U. [place]. Food and Drug Administration. IMAGES AND SCANNED DOCUMENTS, IF INCLUDED, ONLY VIEWABLE IN PDF VERSION OF REPORT Mariana Rivera MD LAB PATHOLOGY ORDERABLES Final R esult * POCT glucose (05/29/2021 8:03 AM CITY SUPERVISOR) Glucose, POC 100 70 - 199 mg/dL [facility] Blood 05/29/2021 8:03 AM CITY SUPERVISOR 05/29/2021 8:03 AM CITY SUPERVISOR us Erick Nava MD LAB POCT ORDERABL ES - DEVICE Final Result Performing Organization Address [facility] de Phone Number [facility] [employer] [place] [address] * POCT glucose (05/29/2021 6:19 AM CITY SUPERVISOR) Glucose, POC 103 70 - 199 mg/dL [facility] Blood 05/29/2021 6:19 AM CITY SUPERVISOR 05/29/2021 6:19 AM CITY SUPERVISOR us Jane Hunter MD LAB POCT ORDERABL ES - DEVICE Final Result Performing Organization Address [facility] Phone Number [facility] [place] [address] * POCT glucose (05/29/2021 4:03 AM CITY SUPERVISOR) Glucose, POC 110 70 - 199 mg/dL [facility] Blood 05/29/2021 4:03 AM CITY SUPERVISOR 05/29/2021 4:03 AM CITY SUPERVISOR us Jane Hunter MD LAB POCT ORDERABL ES - DEVICE Final Result Performing Organization Address [facility] de Phone Number [facility] [place] [employer] [place] [address] * POCT glucose (05/29/2021 2:04 AM CITY SUPERVISOR) Glucose, POC 101 70 - 199 mg/dL [facility] Blood 05/29/2021 2:04 AM CITY SUPERVISOR 05/29/2021 2:04 AM CITY SUPERVISOR us Jane Hunter MD LAB POCT ORDERABL ES - DEVICE Final Result Performing Organization Address [facility]/ZIP Co de Phone Number [facility] [place] [employer] [place] [address] * POCT glucose (05/28/2021 11:51 PM CITY SUPERVISOR) Glucose, POC 89 70 - 199 mg/dL [facility] Blood 05/28/2021 11:5 1 PM CITY SUPERVISOR 05/28/2021 11:51 PM CITY SUPERVISOR us Jane Hunter MD LAB POCT ORDERABL ES - DEVICE Final Result Performing Organization Address [facility] [place] [address] * POCT glucose (05/28/2021 10:10 PM CITY SUPERVISOR) Glucose, POC 93 70 - 199 mg/dL [facility] Blood 05/28/2021 10:1 0 PM CITY SUPERVISOR 05/28/2021 10:10 PM CITY SUPERVISOR us Jane Hunter MD LAB POCT ORDERABL ES - DEVICE Final Result Performing Organization Address [facility] Co de Phone Number [facility] [employer] [place] [address] * POCT glucose (05/28/2021 8:19 PM CITY SUPERVISOR) Glucose, POC 94 70 - 199 mg/dL [facility] Blood 05/28/2021 8:19 PM CITY SUPERVISOR 05/28/2021 8:19 PM CITY SUPERVISOR us Jane Hunter MD LAB POCT ORDERABL ES - DEVICE Final Result Performing Organization Address [facility] Co de Phone Number [facility] [employer] [place] [address] * POCT glucose (05/28/2021 6:07 PM CITY SUPERVISOR) Glucose, POC 84 70 - 199 mg/dL [facility] Blood 05/28/2021 6:07 PM CITY SUPERVISOR 05/28/2021 6:07 PM CITY SUPERVISOR us Jane Hunter MD LAB POCT ORDERABL ES - DEVICE Final Result Performing Organization Address City/[facility]/ZIP Co de Phone Number [facility] [place] [employer] [place] [address] * POCT glucose (05/28/2021 4:12 PM CITY SUPERVISOR) Glucose, POC 84 70 - 199 mg/dL [facility] Blood 05/28/2021 4:12 PM CITY SUPERVISOR 05/28/2021 4:12 PM CITY SUPERVISOR us Erick Nava MD LAB POCT ORDERABL ES - DEVICE Final Result Performing Organization Address City/[facility]/ZIP Co de Phone Number [facility] [place] [employer] [place] [address] * POCT glucose (05/28/2021 1:44 PM CITY SUPERVISOR) Glucose, POC 86 70 - 199 mg/dL [facility] Blood 05/28/2021 1:44 PM CITY SUPERVISOR 05/28/2021 1:44 PM CITY SUPERVISOR us Erick Nava MD LAB POCT ORDERABL ES - DEVICE Final Result Performing Organization Address City/[facility] Co de Phone Number [facility] [place] [employer] [place] [address] * Type and screen (05/28/2021 11:51 AM CITY SUPERVISOR) Andres, indirect Negative [facility] ABO Rh B Positive [facility] Blood 05/28/2021 11:5 1 AM CITY SUPERVISOR 05/28/2021 12:00 PM CITY SUPERVISOR Narrative [facility] - 05/28/2021 12:52 PM CITY SUPERVISOR Has the patient had Daratumumab or Isatuximab in the past 6 months?->Unknown Erick Nava MD LAB BLOOD BANK TE ST ORDERABLES Final Result [facility] [place] [address] * (ABNORMAL) Influenza A/B, RSV, and COVID-19 PCR Nasopharyngeal (05/28/2021 11:42 AM CITY SUPERVISOR) Pathologist [facility] [place] COVID-19 RNA Positive(A) Negative [facility] Influenza A RNA Negative Negative [facility] Influenza B RNA Negative Negative [facility] RSV RNA Negative Negative [facility] Comment: Interpretive data: Testing performed by [facility] ([phone]). This test is performed using the [employer] Xpert Xpress CoV-2/Flu/RSV plus assay. This is a multiplex, real-time reverse transcriptase PCR assay intended for the qualitative detection of nucleic acid from SARS-CoV-2, influenza A, influenza B, and respiratory syncytial virus. This assay has been reviewed by the FDA for Emergency Use Authorization (EUA). The performance characteristics have been verified by the [facility]. Results must be considered in the clinical context, and a negative result does not rule out infection. Interpretive Data last revised 2021. First COVID-19 test? No [facility] Employeed in healthcare? Unknown [facility] status? Yes [facility] Group care resident? Unknown [facility] Hospitalized? No [facility] Is patient in ICU? No [facility] Symptomatic as defined by CDC? No [facility] Nasopharyngeal 05/28/2021 11 :42 AM CITY SUPERVISOR 05/28/2021 1:17 PM CITY SUPERVISOR Narrative [facility] - 05/28/2021 2:29 PM CITY SUPERVISOR Reason for testing?->Labor and delivery Known exposure to confirmed or suspected COVID-19 case?->No us Erick Nava MD LAB MICROBIOLOGY - GENERAL ORDERABLES Final Result [facility] [place] [address] * POCT urinalysis dipstick (05/28/2021 10:58 AM CITY SUPERVISOR) Pathologist [facility] [place] Color, Urine, POC Yellow Clarity, ur, POC Clear Clear Glucose, ur, POC Negative Negative mg/dL Bilirubin, ur, POC Negative Negative, Small, Moderate, Large Ketones, ur, POC Negative Negative Specific [place], POC 1.005 1.005 - 1.030 Blood, ur, POC Negative Negative pH, ur, POC 6.5 5.0 - 8.0 Protein, ur, POC Negative Negative Urobilinogen, urine, POC 0.2 0.2 - 1.0 mg/dL Nitrite, ur, POC Negative Negative Leukocytes, ur, POC Negative Negative Lot Number [id number] Urine 05/28/2021 10:5 8 AM CITY SUPERVISOR us Katina Mcgee NP POINT OF CARE TEST ORDERABLE S Final Result * eGFR (05/28/2021 10:02 AM CITY SUPERVISOR) eGFR >90 90 - 130 mL/min/1. 73 m2 [facility] Comment: Interpretive Data Reference Interval Normal ?>/= [...] interpretive data was last reviewed 2021. Blood 05/28/2021 10:0 2 AM CITY SUPERVISOR 05/28/2021 10:36 AM CITY SUPERVISOR us Katina Mcgee COURT CLERK LAB BLOOD ORDERABLES Final R esult [facility] [place] [address] * (ABNORMAL) Differential, auto (05/28/2021 10:02 AM CITY SUPERVISOR) Neutrophil abs 10.5(H) 1.7 - 6.5 K/cumm [facility] Imm gran abs 0.1 0.0 - 0.1 K/cumm [facility] Lymphocyte abs 3.0 0.8 - 3.3 K/cumm [facility] Monocyte abs 0.6 0.2 - 0.8 K/cumm [facility] Eosinophil abs 0.1 0.0 - 0.5 K/cumm [facility] Basophil abs 0.0 0.0 - 0.1 K/cumm [facility] Neutrophil pct 73.2 % [facility] Comment: Interpretive Data Percent cell count reference ranges are not reported, since discordance with absolute values may lead to misinterpretation of CBC data. Current Interpretive Data was last revised on 2017. Imm gran pct 0.5 % [facility] Comment: Interpretive Data Percent cell count reference ranges are not reported, since discordance with absolute values may lead to misinterpretation of CBC data. Current Interpretive Data was last revised on 2017. Lymphocyte pct 21.0 % [facility] Comment: Interpretive Data Percent cell count reference ranges are not reported, since discordance with absolute values may lead to misinterpretation of CBC data. Current Interpretive Data was last revised on 2017. Monocyte pct 4.2 % [facility] Comment: Interpretive Data Percent cell count reference ranges are not reported, since discordance with absolute values may lead to misinterpretation of CBC data. Current Interpretive Data was last revised on 2017. Eosinophil pct 0.9 % [facility] Comment: Interpretive Data Percent cell count reference ranges are not reported, since discordance with absolute values may lead to misinterpretation of CBC data. Current Interpretive Data was last revised on 2017. Basophil pct 0.2 % [facility] Comment: Interpretive Data Percent cell count reference ranges are not reported, since discordance with absolute values may lead to misinterpretation of CBC data. Current Interpretive Data was last revised on 2017. Blood 05/28/2021 10:0 2 AM CITY SUPERVISOR 05/28/2021 10:36 AM CITY SUPERVISOR us Katina Mcgee COURT CLERK LAB BLOOD ORDERABLES Final R esult [facility] [place] [address] * Protein / creatinine ratio, urine, random (05/28/2021 10:02 AM CITY SUPERVISOR) Protein, ur, quant <5.0 mg/dL [facility] Comment: Interpretive Data No reference range established. Current interpretive data was last revised 2018. Creatinine Ur 21.4 mg/dL [facility] Comment: Interpretive Data No reference range established. Current interpretive data was last revised 2018. Protein/creatini ne ratio See Comment 0.0 - 180.0 mg/g CR [facility] Comment:Unable to Calculate Urine 05/28/2021 10:0 2 AM CITY SUPERVISOR 05/28/2021 10:26 AM CITY SUPERVISOR us Katina Mcgee COURT CLERK LAB URINE ORDERABLES Final R esult [facility] [place] [address] * Uric acid (05/28/2021 10:02 AM CITY SUPERVISOR) Pathologist [facility] [place] Uric acid 4.4 2.5 - 7.0 mg/dL [facility] Blood 05/28/2021 10:0 2 AM CITY SUPERVISOR 05/28/2021 10:36 AM CITY SUPERVISOR Katina Kaylieалескандр Mcgee COURT CLERK LAB BLOOD ORDERABLES Final [facility] Performing Organization Address [facility] Co de Phone Number [facility] [place] [address] * (ABNORMAL) Comprehensive metabolic panel (05/28/2021 10:02 AM CITY SUPERVISOR) Pathologist [facility] [place] Sodium 142 135 - 145 mmol/L [facility] Potassium, pl 3.6 3.3 - 4.9 mmol/L [facility] Chloride 108 97 - 110 mmol/L [facility] CO2 25 22 - 32 mmol/L [facility] Anion gap 9 2 - 15 mmol/L [facility] BUN 7(L) 8 - 25 mg/dL [facility] Creatinine 0.56(L) 0.60 - 1.10 mg/dL [facility] Glucose 94 70 - 199 mg/dL [facility] Comment: Interpretive Data Fasting glucose [...] 2017. Calcium 9.6 8.5 - 10.3 mg/dL [facility] Bilirubin, total 0.2 0.1 - 1.2 mg/dL [facility] Protein, pl 6.7 6.5 - 8.5 g/dL [facility] Albumin 3.3(L) 3.5 - 5.0 g/dL [facility] Alk phos 148(H) 40 - 130 Units/L [facility] ALT 14 7 - 45 Units/L [facility] AST 13 10 - 45 Units/L [facility] Blood 05/28/2021 10:0 2 AM CITY SUPERVISOR 05/28/2021 10:36 AM CITY SUPERVISOR us Katina Mcgee COURT CLERK LAB BLOOD ORDERABLES Final R esult [facility] [place] [address] * (ABNORMAL) CBC with auto differential (05/28/2021 10:02 AM CITY SUPERVISOR) WBC 14.3(H) 3.8 - 9.9 K/cumm [facility] Hgb 11.0(L) 11.9 - 15.5 g/dL [facility] Hct 33.5(L) 35.6 - 45.5 % [facility] Plt 360 150 - 400 K/cumm [facility] MPV 10.8 9.1 - 12.3 fL [facility] RBC 4.04 3.90 - 5.20 M/cumm [facility] MCV 82.9 81.3 - 96.4 fL [facility] MCH 27.2 27.1 - 33.3 pg [facility] MCHC 32.8 32.3 - 35.7 g/dL [facility] RDW CV 14.1 11.1 - 14.9 % [facility] RDW SD 41.8 35.7 - 48.1 fL [facility] NRBC abs 0.00 0.00 - 0.01 K/cumm [facility] Blood 05/28/2021 10:0 2 AM CITY SUPERVISOR 05/28/2021 10:36 AM CITY SUPERVISOR us Katina Mcgee COURT CLERK LAB BLOOD ORDERABLES Final R esult [facility] [place] [address] * Group B streptococcal culture (05/24/2021) SCRIBED Group B Strep neg Mariana iRvera MD LAB MICROBIOLOGY - GENERAL ORDER ROCIO Final Result documented in this encounter Visit Diagnoses Diagnosis care following vaginal delivery documented in this encounter Administered Medications Inactive Administered Medications - up to 3 most recent administrations Medication Order MAR Action Action Date Dose Rate Site acetaminophen (TYLENOL) tablet 1,000 mg 1,000 mg, oral, Every 6 hours PRN, 1st line for pain, Starting on Fri05/28/21 at 1224, L&D Pre-Delivery, Indications: PainIndications:Pain Given 05/28/2021 10:19 PM CITY SUPERVISOR 1,000 mg Given 05/28/2021 1:06 PM CITY SUPERVISOR 1,000 mg acetaminophen (TYLENOL) tablet 1,000 mg 1,000 mg, oral, Every 6 hours PRN, 1st line for pain, Starting on Fri05/29/21 at 1830, Indications: Fever, PainIndications:Fever,Pain Given 05/31/2021 3:32 PM CITY SUPERVISOR 1,000 mg Given 05/31/2021 8:32 AM CITY SUPERVISOR 1,000 mg Given 05/30/2021 7:07 PM CITY SUPERVISOR 1,000 mg butalbital-acetamino phen-caffeine (ESGIC) 50-325-40 mg per tablet 1 tablet 1 tablet, oral, Once, On Fri05/29/21 at 0745, For 1 dose Given 05/29/2021 7:33 AM CITY SUPERVISOR 1 tablet calcium carbonate (TUMS) chewable tablet 1,000 mg 1,000 mg (400 mg of elemental calcium), oral, Daily, First dose on Fri05/31/21 at 0900 Given 05/31/2021 8:32 AM CITY SUPERVISOR 1,000 mg calcium gluconate 3 g in sodium chloride 0.9% 100 mL IVPB 3 g, intravenous, at 130 mL/hr, Administer over 60 Minutes, Once, On Fri05/29/21 at 2245, For 1 dose, Indications: hypocalcemiaIndicati ons:hypocalcemia New Bag 05/29/2021 11:37 PM CITY SUPERVISOR 3 g 130 mL/hr carboprost (HEMABATE) 250 mcg/mL injection - ADS Override Pull Starting on Fri05/29/21 at 1629, For 1 dose, Created by cabinet override Refrigerate carboprost (HEMABATE) injection 250 mcg 250 mcg, intramuscular, Once as needed, hemorrhage per MD request, Starting on Fri05/28/21 at 1224, For 1 dose, L&D Pre-Delivery, Administer only on provider request Refrigerate Given 05/29/2021 4:05 PM CITY SUPERVISOR 250 mcg Right Anterior Thigh carboprost (HEMABATE) injection 250 mcg 250 mcg, intramuscular, Once, On Fri05/29/21 at 1715, For 1 dose, Refrigerate Given 05/29/2021 4:31 PM CITY SUPERVISOR 250 mcg Left Anterior Thigh dextrose 5% and Lactated Ringer's infusion 125 mL/hr, intravenous, Continuous, Starting on Fri05/28/21 at 1300, L&D Pre-Delivery Rate/Dose Change 05/29/2021 8:46 AM CITY SUPERVISOR 35 mL/hr 35 mL/hr New Bag 05/28/2021 12:41 PM CITY SUPERVISOR 75 mL/hr 75 mL/hr diphenhydrAMINE (BENADRYL) injection 25 mg 25 mg, intravenous, Administer over 2 Minutes, Every 6 hours PRN, itching, Starting on Fri05/28/21 at 2152, May switch to nalbuphine if itching not resolved in 30 minutes. Discontinue after delivery., Indications: ItchingIndications:Itching Given 05/29/2021 3:06 PM CITY SUPERVISOR 25 m g docusate sodium (COLACE) capsule 100 mg 100 mg, oral, 2 times daily, First dose on Fri05/29/21 at 2100, Hold if diarrhea., Indications: constipation, Stool SoftenerIndications:constipation,Stool Softener Given 05/31/2021 8:32 AM CITY SUPERVISOR 100 mg Given 05/30/2021 7:07 PM CITY SUPERVISOR 100 mg Given 05/30/2021 8:45 AM CITY SUPERVISOR 100 mg enoxaparin (LOVENOX) syringe 40 mg 40 mg, subcutaneous, Every 12 hours scheduled, First dose (after last modification) on May 05/31/21 at 2100, Indications: Deep Vein Thrombosis PreventionIndications:Deep Vein Thrombosis Prevention fentaNYL-bupivacaine preservative free in 0.9% sodium chloride 2 mcg/mL- 0.1 % cassette (premix) Continuous Rate: 10 mL/hr, Patient Bolus Dose: other (comment) / 6 mL, Lockout Interval: 15 Minutes, epidural, Continuous, Starting on Fri05/28/21 at 2230, Until Fri05/29/21 at 2349, 100 mL, Indications: Pain, Stop epidural infusion after placental delivery and any indicated repair is complete., RoutineIndications:Pain Rate/Dose Change 05/29/2021 4:19 PM CITY SUPERVISOR 2 mL/hr 2 mL/hr New Syringe/Cartridge 05/29/2021 2:45 PM CITY SUPERVISOR New Syringe/Cartridge 05/29/2021 8:05 AM CITY SUPERVISOR 100 mL HYDROmorphone (DILAUDID) injection 0.5 mg 0.5 mg, intravenous, Administer over 2 Minutes, Once, On Fri05/29/21 at 1915, For 1 dose Given 05/29/2021 7:28 PM CITY SUPERVISOR 0.5 mg ibuprofen (ADVIL,MOTRIN) tablet 600 mg 600 mg, oral, Every 6 hours PRN, other, cramping, Starting on Fri05/29/21 at 1830, Indications: CrampsIndications:Cramps Given 05/31/2021 3:32 PM CITY SUPERVISOR 600 mg Given 05/31/2021 8:32 AM CITY SUPERVISOR 600 mg Given 05/30/2021 10:11 PM CITY SUPERVISOR 600 mg labetaloL (NORMODYNE,TRANDATE) injection 20 mg 20 mg, intravenous, at 120 mL/hr, Administer over 2 Minutes, Once, On Fri05/28/21 at 1045, For 1 dose Given 05/28/2021 10:10 AM CITY SUPERVISOR 20 mg 120 mL/hr Lactated Ringer's (LR) bolus 1,000 mL 1,000 mL, intravenous, at 1,000 mL/hr, Administer over 1 Hours, Once as needed, for epidural placement per anesthesia request, Starting on Fri05/28/21 at 1224, For 1 dose, L&D Pre-Delivery, Administer only on provider request. Start 15 minutes prior to epidural placement New Bag 05/28/2021 6:46 PM CITY SUPERVISOR 1,000 mL 1000 mL/h r Lactated Ringer's (LR) bolus 1,000 mL 1,000 mL, intravenous, 3 times daily PRN, for nonreassuring heart rate, variable decelerations, or late deceleration., Starting on Fri05/28/21 at 1224, For 1 dose, L&D Pre-Delivery New Bag 05/29/2021 6:20 PM CITY SUPERVISOR 1,000 mL 50 mL/hr Lactated Ringer's (LR) infusion 75 mL/hr, intravenous, Continuous, Starting on Fri05/30/21 at 0100 New Bag 05/30/2021 7:35 AM CITY SUPERVISOR 75 mL/hr 75 mL/hr New Bag 05/30/2021 1:11 AM CITY SUPERVISOR 75 mL/hr 75 mL/hr loperamide (IMODIUM) capsule 2 mg 2 mg, oral, Once as needed, diarrhea, per MD request, Starting on Fri05/28/21 at 1224, For 1 dose, L&D Pre-Delivery, Administer only on provider request Given 05/29/2021 4:09 PM CITY SUPERVISOR 2 mg magnesium sulfate 20 g/500 mL in water infusion (premix) 2 g/hr (50 mL/hr), intravenous, Continuous, Starting on Fri05/28/21 at 1300, Suspected magnesium toxicity - Stop if maternal respiratory rate less than 12 breaths/minute, apply oximeter and administer O2 at 8-12 LPM per tight face mask to maintain SaO2 95% or more and notify MD., Indications: Pre-EclampsiaIndications:Pre- Eclampsia Rate/Dose Verify 05/30/2021 2:30 PM CITY SUPERVISOR 2 g/hr 50 mL/hr Rate/Dose Verify 05/30/2021 12:30 PM CITY SUPERVISOR 2 g/hr 50 mL/ hr New Bag 05/30/2021 11:35 AM CITY SUPERVISOR 2 g/hr 50 mL/hr magnesium sulfate bolus from bag 6 g 6 g, intravenous, Administer over 30 Minutes, Once, On Fri05/28/21 at 1300, For 1 dose, L&D Pre-Delivery, Indications: Pre-EclampsiaIndications:Pr e-Eclampsia Bolus from Bag 05/28/2021 12:43 PM CITY SUPERVISOR 6 g miSOPROStol (CYTOTEC) split tablet 25 mcg 25 mcg, vaginal, Once, On Fri05/28/21 at 1345, For 1 dose Given 05/28/2021 1:22 PM CITY SUPERVISOR 25 mcg miSOPROStoL (CYTOTEC) tablet 800 mcg 800 mcg, rectal, Once as needed, hemorrhage per MD request, Starting on Fri05/28/21 at 1224, For 1 dose, L&D Pre-Delivery, Administer only on provider request Given 05/29/2021 4:07 PM CITY SUPERVISOR 800 mcg ondansetron (ZOFRAN) injection 4 mg 4 mg, intravenous, Administer over 2 Minutes, Every 6 hours PRN, nausea, vomiting, if not tolerating PO, Starting on Fri05/30/21 at 1408, Start in 24 hours after Anesthesia no longer covering., Indications: Nausea and VomitingIndications:Nausea and Vomiting ondansetron ODT (ZOFRAN-ODT) disintegrating tablet 4 mg 4 mg, oral, Every 6 hours PRN, nausea, vomiting, Starting on Fri05/30/21 at 1408, Start in 24 hours after Anesthesia no longer covering., Indications: Nausea and VomitingIndications:Nausea and Vomiting oxyCODONE (ROXICODONE) tablet 5 mg 5 mg, oral, 4 times daily PRN, breakthrough pain, Starting on Fri05/29/21 at 1831, Indications: PainIndications:Pain oxytocin 30 unit/500 mL (0.06 unit/mL) in sodium chloride 0.9% (premix) solution 0.5-40 milliunits/min (0.5-40 mL/hr), 0.06 units/mL, intravenous, Titrated, Starting on Fri05/28/21 at 1700, Until Fri05/29/21 at 1830, Indications: Induction of Labor, Start at 2 dalila-units/min and increase by 2 dalila-units/minutes every 30 minutes until contraction frequency is every 2-3 minutes. - - 20 milliunits/minutes maximum - All other patients 40 milliunits/minute maximum Discontinue for distress or uterine hyperstimulation., RoutineIndications:Inductio n of Labor New Bag 05/29/2021 4:55 PM CITY SUPERVISOR 95 milliunits/min 95 mL/hr New Bag 05/29/2021 3:55 PM CITY SUPERVISOR 999 milliunits/min 999 m L/hr Rate/Dose Change 05/29/2021 1:01 PM CITY SUPERVISOR 18 milliunits/min 18 mL/hr PNV with qqjwfon-[id number]-EY tablet 1 tablet 1 tablet, oral, Daily, First dose on Fri05/29/21 at 1915, Begin when normal bowel activity resumes., Indications: Vitamin Deficiency PreventionIndications:Vitamin Deficiency Prevention Given 05/31/2021 8:32 AM CITY SUPERVISOR 1 tablet Given 05/30/2021 8:45 AM CITY SUPERVISOR 1 tablet polyethylene glycol (MIRALAX) packet 17 g 17 g, oral, Daily, First dose on Fri05/29/21 at 1915, Hold if diarrhea., Indications: constipationIndications:constipation Given 05/31/2021 8:32 AM CITY SUPERVISOR 17 g Given 05/30/2021 8:45 AM CITY SUPERVISOR 17 g prochlorperazine (COMPAZINE) tablet 10 mg 10 mg, oral, Once, On Fri05/29/21 at 0030, For 1 dose Given 05/28/2021 11:59 PM CITY SUPERVISOR 10 mg prochlorperazine (COMPAZINE) tablet 10 mg 10 mg, oral, Once, On Fri05/29/21 at 0700, For 1 dose Given 05/29/2021 6:24 AM CITY SUPERVISOR 10 mg propranoloL (INDERAL) injection 1 mg 1 mg, intravenous, Once, On Fri05/29/21 at 0915, For 1 dose, For IV administration, do not exceed a rate of 1 mg/min. Given 05/29/2021 10:31 AM CITY SUPERVISOR 1 mg senna (SENOKOT) tablet 1 tablet 1 tablet, oral, 2 times daily, First dose on Fri05/29/21 at 2100, Hold if diarrhea., Indications: constipationIndications:constipation Given 05/31/2021 8:32 AM CITY SUPERVISOR 1 table t Given 05/30/2021 7:07 PM CITY SUPERVISOR 1 tablet Given 05/30/2021 8:45 AM CITY SUPERVISOR 1 tablet sodium chloride 0.9% flush 0.5-20 mL 0.5-20 mL, intra-catheter, As needed, line care, Starting on Fri05/28/21 at 0954, Flush volume based on line type and size. Flush before and after each use. Given 05/28/2021 10:11 AM CITY SUPERVISOR 10 mL sodium chloride 0.9% flush 0.5-20 mL 0.5-20 mL, intra-catheter, Every 8 hours scheduled, First dose on Fri05/30/21 at 0030, Flush volume based on line type and size. Given 05/31/2021 4:30 AM CITY SUPERVISOR 10 mL Given 05/30/2021 10:13 PM CITY SUPERVISOR 10 mL Given 05/30/2021 1:11 AM CITY SUPERVISOR 10 mL sodium chloride 0.9% flush 0.5-20 mL 0.5-20 mL, intra-catheter, As needed, line care, Starting on Fri05/29/21 at 2350, Flush volume based on line type and size. Flush before and after each use. tranexamic acid (CYKLOKAPRON) 1,000 mg/100 mL (10 mg/mL) in sodium chloride (premix) 1,000 mg 1,000 mg, intravenous, at 400 mL/hr, Administer over 15 Minutes, Once as needed, hemorrhage per MD request, Starting on Fri05/28/21 at 1224, For 1 dose, L&D Pre-Delivery, Administer only on provider request, Indications: HemorrhageIndications: Hemorrhage New Bag 05/29/2021 4:20 PM CITY SUPERVISOR 1,000 mg 400 mL/hr documented in this encounter Discontinued Medications Medication Sig Discontinue Reason Start Date End Da te no122/iron/folic acid ( MULTI ORAL) Take by mouth daily Stop Taking at Discharge 05/31/2021 aspirin 81 mg enteric coated tablet Take 81 mg by mouth daily Stop Taking at Discharge 05/31/2021 diphenhydramine HCl (UNISOM, DIPHENHYDRAMINE, ORAL) Take by mouth Stop Taking at Discharge 05/31/2021 blood glucose diagnostic strip Check glucose fasting and one hour after each meal Stop Taking at Discharge 03/27/2021 05/31/2021 insulin NPH (HumuLIN N, NovoLIN N) 100 unit/mL (3 mL) pen for injection Inject 12 units under the skin every day at bedtime Stop Taking at Discharge 04/12/2021 05/31/2021 calcium carbonate (TUMS ORAL) Take by mouth Stop Taking at Discharge 05/31/2021 polyethylene glycol (MIRALAX) 17 gram packetIndications:cons tipation Take 17 g by mouth daily Stop Taking at Discharge 05/31/2021 docusate sodium (COLACE) 100 mg capsuleIndications:con stipation Take 100 mg by mouth 2 (two) times a day Stop Taking at Discharge 05/31/2021 documented as of this encounter Active and Recently Administered Medications Times are shown in CITY SUPERVISOR. Scheduled Medication Order 05/29/2021 05/30/2021 05/31/2021 butalbital-acetaminophe n-caffeine (ESGIC) 50-325-40 mg per tablet 1 tablet (COMPLETED) 1 tablet, oral, Once, On Fri05/29/21 at 0745, For 1 dose 0733 (Given - Provider: Mabel Sosa, RU) calcium carbonate (TUMS) chewable tablet 1,000 mg 1,000 mg (400 mg of elemental calcium), oral, Daily, First dose on Fri05/31/21 at 0900 0832 (Given - Provider: Ryan Leigh, RU) calcium gluconate 3 g in sodium chloride 0.9% 100 mL IVPB (COMPLETED) 3 g, intravenous, at 130 mL/hr, Administer over 60 Minutes, Once, On Fri05/29/21 at 2245, For 1 dose, Indications: hypocalcemia 2337 (New Bag - Provider: Quiana Epstein, RU) carboprost (HEMABATE) injection 250 mcg (COMPLETED)(Linked Group 1) 250 mcg, intramuscular, Once, On Fri05/29/21 at 1715, For 1 dose, Refrigerate 1631 (Given - Provider: Mabel Sosa, RU) docusate sodium (COLACE) capsule 100 mg 100 mg, oral, 2 times daily, First dose on Fri05/29/21 at 2100, Hold if diarrhea., Indications: constipation, Stool Softener 2113 (Given - Provider: Quiana Epstein, RU) 0845 (Given - Provider: Kathya Lorenz, RU)1907 (Given - Provider: Arcelia Anderson, RU)2211 (Not Given - Provider: Mary Ellen Vargas RN - Reason: Order parameters not met) 0832 (Given - Provider: Ryan Leigh RN) enoxaparin (LOVENOX) syringe 40 mg 40 mg, subcutaneous, Every 12 hours scheduled, First dose (after last modification) on Fri05/31/21 at 2100, Indications: Deep Vein Thrombosis Prevention HYDROmorphone (DILAUDID) injection 0.5 mg (COMPLETED) 0.5 mg, intravenous, Administer over 2 Minutes, Once, On Fri05/29/21 at 191, For 1 dose 1927 (Given - Provider: Quiana Epsetin RN) PNV with [id number] tablet 1 tablet 1 tablet, oral, Daily, First dose on Fri05/29/21 at 1914, Begin when normal bowel activity resumes., Indications: Vitamin Deficiency Prevention 1914 (Not Given - Provider: Quiana Epstein RN - Reason: NPO) 0845 (Given - Provider: Kathya Lorenz RN) 0832 (Given - Provider: Ryan Leigh RN) polyethylene glycol (MIRALAX) packet 17 g 17 g, oral, Daily, First dose on Fri05/29/21 at 1914, Hold if diarrhea., Indications: constipation 1836 (Not Given - Provider: Mabel Sosa RN - Reason: Other - Comment: patient on eating ice chips) 0845 (Given - Provider: Kathya Lorenz RN) 0832 (Given - Provider: Ryan Leigh RN) prochlorperazine (COMPAZINE) tablet 10 mg (COMPLETED) 10 mg, oral, Once, On Fri05/29/21 at 0700, For 1 dose 0624 (Given - Provider: Yoko Wilkes RN) propranoloL (INDERAL) injection 1 mg (COMPLETED) 1 mg, intravenous, Once, On Fri05/29/21 at 0915, For 1 dose, For IV administration, do not exceed a rate of 1 mg/min. 1031 (Given - Provider: Mabel Sosa, RU) senna (SENOKOT) tablet 1 tablet 1 tablet, oral, 2 times daily, First dose on Fri05/29/21 at 2100, Hold if diarrhea., Indications: constipation 2112 (Given - Provider: Quiana Epstein RN) 0845 (Given - Provider: Kathya Lorenz RN)1906 (Given - Provider: Arcelia Anderson RN) 0832 (Given - Provider: Ryan Leigh RN) sodium chloride 0.9% flush 0.5-20 mL 0.5-20 mL, intra-catheter, Every 8 hours scheduled, First dose on Fri05/30/21 at 0030, Flush volume based on line type and size. 0111 (Given - Provider: Quiana Epstein RN)0600 (Not Given - Provider: Quiana Epstein RN - Reason: Other)1400 (Due)2213 (Given - Provider: Mary Ellen Vargas, RN) 0430 (Given - Provider: Mary Ellen Vargas RN)1400 (Due) Continuous Medication Order 05/29/2021 05/30/2021 05/31/2021 dextrose 5% and Lactated Ringer's infusion (CANCELED) 125 mL/hr, intravenous, Continuous, Starting on Fri05/28/21 at 1300, L&D Pre-Delivery 0846 (Rate/Dose Change - Provider: Mabel Sosa RN - Comment: per fluid restriction order)1730 (Stopped - Provider: Mabel Sosa RN) fentaNYL-bupivacaine preservative free in 0.9% sodium chloride 2 mcg/mL- 0.1 % cassette (premix) (CANCELED) Continuous Rate: 10 mL/hr, Patient Bolus Dose: other (comment) / 6 mL, Lockout Interval: 15 Minutes, epidural, Continuous, Starting on Fri05/28/21 at 2230, Until Fri05/29/21 at 2349, 100 mL, Indications: Pain, Stop epidural infusion after placental delivery and any indicated repair is complete., Routine 0215 (New Syringe/Cartridge - Provider: Yoko Wilkes RN)0805 (New Syringe/Cartridge - Provider: Mabel Sosa RN)1445 (New Syringe/Cartridge - Provider: Mabel Sosa, RU)1619 (Rate/Dose Change - Provider: Karan Kelly MD)2250 (Stopped (Dual Sign) - Provider: Quiana Epstein RN) Lactated Ringer's (LR) infusion (CANCELED) 75 mL/hr, intravenous, Continuous, Starting on Fri05/30/21 at 0100 0111 (New Bag - Provider: Quiana Epstein RN)0735 (New Bag - Provider: Kathya Lorenz RN) magnesium sulfate 20 g/500 mL in water infusion (premix) (CANCELED) 2 g/hr (50 mL/hr), intravenous, Continuous, Starting on Fri05/28/21 at 1300, Suspected magnesium toxicity - Stop if maternal respiratory rate less than 12 breaths/minute, apply oximeter and administer O2 at 8-12 LPM per tight face mask to maintain SaO2 95% or more and notify MD., Indications: Pre-Eclampsia 0626 (Rate/Dose Verify - Provider: Yoko Wilkes RN)1654 (Stopped - Provider: Mabel Sosa RN)1800 (Stopped - Provider: Mabel Sosa RN) 0108 (New Bag - Provider: Quiana Epstein, RN)1135 (New Bag - Provider: Kathya Lorenz RN)1230 (Rate/Dose Verify - Provider: Arcelia Anderson RN)1430 (Rate/Dose Verify - Provider: Arcelia Anderson, RU)1553 (Stopped - Provider: Arcelia Anderson RN - Comment: d/c) oxytocin 30 unit/500 mL (0.06 unit/mL) in sodium chloride 0.9% (premix) solution (CANCELED) 0.5-40 milliunits/min (0.5-40 mL/hr), 0.06 units/mL, intravenous, Titrated, Starting on Fri05/28/21 at 1700, Until Fri05/29/21 at 1830, Indications: Induction of Labor, Start at 2 dalila-units/min and increase by 2 dalila-units/minutes every 30 minutes until contraction frequency is every 2-3 minutes. - - 20 milliunits/minutes maximum - All other patients 40 milliunits/minute maximum Discontinue for distress or uterine hyperstimulation., Routine 0000 (Rate/Dose Change - Provider: Yoko Wilkes RN)0100 (Rate/Dose Change - Provider: Yoko Wilkes RN)0200 (Rate/Dose Change - Provider: Yoko Wilkes RN)0315 (Rate/Dose Change - Provider: Yoko Wilkes RN)0400 (Rate/Dose Change - Provider: Yoko Wilkes RN)0500 (Rate/Dose Change - Provider: Yoko Wilkes RN)0530 (Rate/Dose Change - Provider: Yoko Wilkes RN)0600 (Rate/Dose Change - Provider: Yoko Wilkes RN)0630 (Rate/Dose Change - Provider: Yoko Wilkes RN)0700 (Rate/Dose Change - Provider: Yoko Wilkes RN)0734 (Rate/Dose Change - Provider: Mabel Sosa RN)0846 (Stopped - Provider: Mabel Sosa RN)1057 (Rate/Dose Change - Provider: Mabel Sosa RN)1131 (Rate/Dose Change - Provider: Mabel Sosa RN)1205 (Rate/Dose Change - Provider: Mabel Sosa RN)1235 (Rate/Dose Change - Provider: Mabel Sosa RN)1301 (Rate/Dose Change - Provider: Mabel Sosa RN)1555 (New Bag - Provider: Mabel Sosa RN - Comment: miguel damon MD at bedside)1655 (New Bag - Provider: Mabel Sosa RN - Comment: miguel nava MD at bedside) PRN Medication Order 05/29/2021 05/30/2021 05/31/2021 acetaminophen (TYLENOL) tablet 1,000 mg 1,000 mg, oral, Every 6 hours PRN, 1st line for pain, Starting on Fri05/29/21 at 1830, Indications: Fever, Pain 0443 (Given - Provider: Quiana Epstein RN)1907 (Given - Provider: Arcelia Anderson RN) 0832 (Given - Provider: Ryan Leigh, RU)1532 (Given - Provider: Ryan Leigh RN) benzocaine-menthoL (DERMOPLAST) 20-0.5 % topical spray 1 spray 1 spray, topical, As needed, other, perianal area for pain, Starting on Fri05/29/21 at 1830, Up to 6 times a day., Apply to affected area: perineum, Indications: Minor Skin Wound Pain bisacodyL (DULCOLAX) suppository 10 mg 10 mg, rectal, Daily PRN, constipation, Starting on Fri05/29/21 at 1830, Indications: constipation carboprost (HEMABATE) injection 250 mcg (COMPLETED) 250 mcg, intramuscular, Once as needed, hemorrhage per MD request, Starting on Fri05/28/21 at 1224, For 1 dose, L&D Pre-Delivery, Administer only on provider request Refrigerate 1605 (Given - Provider: Mabel Sosa, RU) diphenhydrAMINE (BENADRYL) injection 25 mg (CANCELED) 25 mg, intravenous, Administer over 2 Minutes, Every 6 hours PRN, itching, Starting on Fri05/28/21 at 2152, May switch to nalbuphine if itching not resolved in 30 minutes. Discontinue after delivery., Indications: Itching 1506 (Given - Provider: Mabel Sosa, RU) hydrocortisone (ANUSOL-HC) 2.5 % rectal cream rectal, 3 times daily PRN, hemorrhoids, Starting on Fri05/29/21 at 1830, Indications: Hemorrhoids ibuprofen (ADVIL,MOTRIN) tablet 600 mg 600 mg, oral, Every 6 hours PRN, other, cramping, Starting on Fri05/29/21 at 1830, Indications: Cramps 2211 (Given - Provider: Mary Ellen Vargas RN) 0832 (Given - Provider: Ryan Leigh, RU)1532 (Given - Provider: Ryan Leigh RN) Lactated Ringer's (LR) bolus 1,000 mL (CANCELED) 1,000 mL, intravenous, 3 times daily PRN, for nonreassuring heart rate, variable decelerations, or late deceleration., Starting on Fri05/28/21 at 1224, For 1 dose, L&D Pre-Delivery 1820 (New Bag - Provider: Mabel Sosa RN - Comment: per Leticia GREGORY at bedside) loperamide (IMODIUM) capsule 2 mg (COMPLETED) 2 mg, oral, Once as needed, diarrhea, per MD request, Starting on Fri05/28/21 at 1224, For 1 dose, L&D Pre-Delivery, Administer only on provider request 1609 (Given - Provider: Mabel Sosa, RU) miSOPROStoL (CYTOTEC) tablet 800 mcg (COMPLETED) 800 mcg, rectal, Once as needed, hemorrhage per MD request, Starting on Fri05/28/21 at 1224, For 1 dose, L&D Pre-Delivery, Administer only on provider request 1607 (Given - Provider: Mabel Sosa RN - Comment: given by MD) ondansetron (ZOFRAN) injection 4 mg(Linked Group 2) 4 mg, intravenous, Administer over 2 Minutes, Every 6 hours PRN, nausea, vomiting, if not tolerating PO, Starting on Fri05/30/21 at 1408, Start in 24 hours after Anesthesia no longer covering., Indications: Nausea and Vomiting ondansetron ODT (ZOFRAN-ODT) disintegrating tablet 4 mg(Linked Group 2) 4 mg, oral, Every 6 hours PRN, nausea, vomiting, Starting on Fri05/30/21 at 1408, Start in 24 hours after Anesthesia no longer covering., Indications: Nausea and Vomiting oxyCODONE (ROXICODONE) tablet 5 mg 5 mg, oral, 4 times daily PRN, breakthrough pain, Starting on Fri05/29/21 at 1831, Indications: Pain sodium chloride 0.9% flush 0.5-20 mL 0.5-20 mL, intra-catheter, As needed, line care, Starting on Fri05/29/21 at 2350, Flush volume based on line type and size. Flush before and after each use. tranexamic acid (CYKLOKAPRON) 1,000 mg/100 mL (10 mg/mL) in sodium chloride (premix) 1,000 mg (COMPLETED) 1,000 mg, intravenous, at 400 mL/hr, Administer over 15 Minutes, Once as needed, hemorrhage per MD request, Starting on Fri05/28/21 at 1224, For 1 dose, L&D Pre-Delivery, Administer only on provider request, Indications: Hemorrhage 1620 (New Bag - Provider: Mabel Sosa RN) Linked Groups Order Group 1: carboprost (HEMABATE) injection 250 mcg (COMPLETED)Jump to med 250 mcg, intramuscular, Once, On Fri05/29/21 at 1715, For 1 dose, Refrigerate And loperamide (IMODIUM) capsule 2 mg () 2 mg, oral, Once, On Fri05/29/21 at 1715, For 1 dose, Maximum recommended dose 16 mg/day, Indications: prevention of diarrhea Group 2: ondansetron ODT (ZOFRAN-ODT) disintegrating tablet 4 mgJump to med 4 mg, oral, Every 6 hours PRN, nausea, vomiting, Starting on Fri05/30/21 at 1408, Start in 24 hours after Anesthesia no longer covering., Indications: Nausea and Vomiting Or ondansetron (ZOFRAN) injection 4 mgJump to med 4 mg, intravenous, Administer over 2 Minutes, Every 6 hours PRN, nausea, vomiting, if not tolerating PO, Starting on Fri05/30/21 at 1408, Start in 24 hours after Anesthesia no longer covering., Indications: Nausea and Vomiting documented in this encounter Orders Medications Ordered That Jonathan ht Not Have Been Administered Count Last Ordered Date First Ordered Date enoxaparin (LOVENOX) syringe 40 mg 2 202105/30/2021 benzocaine-menthoL (DERMOPLA ST) 20-0.5 % topical spray 1 spray 1 05/29/2021 bisacodyL (DULCOLAX) suppository 10 mg 1 dextrose 5% and Lactated Ringer's infusion 1 05/29/2021 hydrocortisone (ANUSOL-HC) 2 .5 % rectal cream 1 05/29/2021 loperamide (IMODIUM) capsule 2 mg 1 022 ondansetron (ZOFRAN) injection 4 mg 3 05/2905/28/2021 ondansetron ODT (ZOFRAN-ODT) disintegrating tablet 4 mg 3 05/29/2021 05/28/2021 oxyCODONE (ROXICODONE) tablet 5 mg 1 2021 oxytocin 30 unit/500 mL (0.0 6 unit/mL) in sodium chloride 0.9% (premix) solution 1 05/29/2021 sodium chloride 0.9% flush 0.5-20 mL 6 05/1505/28/2021 sodium chloride 0.9% IVPB 0-250 mL 2 2021 calcium gluconate 100 mg/mL (10%) injection 1 g 1 05/28/2021 dextrose (D10W) 10% bolus 250 mL 1 05/28/19 dextrose (GLUTOSE) 40 % gel 15 g 1 05/28/19 glucagon injection 1 mg 1 05/28/2021 insulin regular in 0.9% sodi um chloride (MYXREDLIN) 100 unit/100 mL (1 unit/mL) infusion (premix) 1 05/28/2021 Lactated Ringer's (LR) bolus 1,000 mL 1 lidocaine PF (XYLOCAINE) 10 mg/mL (1 %) preservative free injection 100 mg 1 05/28/2021 methylergonovine (METHERGINE ) injection 0.2 mg 1 05/28/2021 naloxone (NARCAN) 0.4 mg/mL injection 0.04-0.4 mg 1 05/28/2021 oxytocin (PITOCIN) injection 10 Units 1 sodium chloride 0.9% flush 3 mL 1 sodium chloride 0.9% infusion 1 05/28/2021 terbutaline (BRETHINE) injection 0.125 mg 1 05/28/2021 terbutaline (BRETHINE) injection 0.25 mg 1 05/28/2021 Nursing Count Last Ordered Date First Orde red Date VITAL SIGNS 1 05/28/2021 Transfer Count Last Ordered Date First Orde red Date TRANSFER PATIENT 2 05/29/2021 CORE MEASURES Count Last Ordered Date First Ord ered Date REASON FOR NO VTE PROPHYLAXI S - HOSPITAL ADMISSION - MEDICATIONS 1 05/28/2021 documented in this encounter Additional Health Concerns Infection Onset Date Last Indicated Resolved Time COVID19 05/28/2021 05/28/2021 06/10/2021 3:06 AM CITY 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
--- OUTSIDE RECORDS SUMMARY | 2024-04-11 06:15 | XMS_ITS | Encounter Summary ---
Author Organization [facility] Address [address] [place] [address] Phone Care Team Providers Care Stock Worker Name Role Phone Judy Fishman NP Primary Care Provider + Jessica Martínez MD Unavailable [phone] Reason for Referral * Diagnostic Imaging (Routine) - Closed Specialty Diagnoses / Procedures Referred By Mary roberson Referred To Contact Diagnoses Crohn's disease of small intestine with other complication (HCC) Procedures US Ob Follow Up Judy Polanco NP [address] [facility] [phone] [place] [address] Phone: tel: fax: [facility] (All Locations) Referral ID Status Reason Start Date Expiration Date Visits Re quested Visits Authorized [id number] Closed 04/12/2021 05/12/2022 1 1 CAR MAKE READY WORKER Reason for Visit * Reason Comments High Risk Gestation Encounter Details Date Type Department Care Team (Late st Contact Info) Description 04/12/2021 8:45 AM USED CAR MAKE READY WORKER Office Visit [facility] Maternal- Medicine [address] [facility] [address] [place] [address] Judy Polanco NP [address] [facility] [phone] [place] [address] Crohn's disease of small intestine with other complication (HCC) (Primary Dx); Excessive growth affecting management of in second trimester, single or unspecified fetus; Obesity affecting , antepartum; Prediabetes; resulting from assisted reproductive technology, antepartum; Supervision of high-risk , unspecified trimester; Gestational diabetes mellitus (GDM) in third trimester, gestational diabetes method of control unspecified Social History Tobacco Use Types Packs/Day Years Used Date Smoking Tobacco: Former Cigarettes Q uit: 10/03/2020 Smokeless Tobacco: Never Alcohol Use Standard Drinks/Week Comments Yes 2 (1 standard drink = 0.6 oz pur e alcohol) Comments Yes Sex and Gender Information Value Date Recorded Sex Assigned at Not on file Legal Sex Female 7:54 PM USED CAR MAKE READY WORKER Gender Identity Not on file Sexual Orientation Not on file documented as of this encounter Last Filed Vital Signs Vital Sign Reading Time Taken Comments Blood Pressure 131/81 04/12/2021 8:10 AM USED CAR MAKE READY WORKER Pulse 83 04/12/2021 8:10 AM USED CAR MAKE READY WORKER Temperature - - Respiratory Rate - - Oxygen Saturation 98% 04/12/2021 8:10 AM USED CAR MAKE READY WORKER Inhaled Oxygen Concentration - - Weight 112.9 kg (249 lb) 04/12/2021 8:10 AM USED CAR MAKE READY WORKER Height 157.5 cm (5' 2 ) 04/12/2021 8:10 AM USED CAR MAKE READY WORKER Body Mass Index 45.54 04/12/2021 8:10 AM USED CAR MAKE READY WORKER documented in this encounter Ordered Prescriptions Prescription Sig Dispense Quantity Refills Last Filled Start Date End Date pen needle, diabetic 33 gauge x 5/32 needle 1 INJECTIONS DAILY DIRECTED 200 each 3 04/12/2021 2 insulin NPH (HumuLIN N, NovoLIN N) 100 unit/mL (3 mL) pen for injection Inject 12 units under the skin every day at bedtime 15 mL 3 04/12/2021 2 documented in this encounter Progress Notes * Judy Polanco, BINU - 04/12/2021 8:45 AM CST M Return Visit 04/12/2021 Liliana Mancilla is a 30 y.o. at 30w0d who is here for a return OB visit. Her is complicated by Crohn's disease, IVF , BMI 42, and history of prediabetes. Subjective: Tearful today following discussion of diabetes and need for insulin. She denies contractions, loss of fluid, or vaginal bleeding and reports good movement. Denies symptoms of flare. Objective: BP 131/81 Pulse 83 Ht 157.5 cm (5' 2 ) Wt 249 lb (112.9 kg) LMP 09/15/2020 (Exact Date) SpO2 98% BMI 45.54 kg/m?? General: NAD Abdomen: Soft, gravid, NT, FHR + Extremities: WWP, no edema Ultrasound: 04/12/2021 LGA- see finalized US report Assessment/Plan: Liliana Mancilla is a 30 y.o. at 30w0d with a complicated by the following: Problem [...] CS in the setting of perianal disease. Relevant Orders US Ob Follow Up Prediabetes Overview History of prediabetes with most recent A1c 5.6% (02/2020). [x] early 1hr GTT- wnl [x] Gtt at 24-28 weeks-148 elevated, 3 hr GTT ordered., pt aware and to have done at [facility] in [place] Obesity affecting , antepartum Overview Previously counseled [...] testing at 32 weeks Delivery by 39 Current Assessment & Plan Counseled today on diagnosed gDM. Discussed goal [...] Will review log again in 1 week. Relevant Medications insulin NPH (HumuLIN N, NovoLIN N) 100 unit/mL (3 mL) pen for injection Supervision of high-risk , unspecified trimester Overview [x] Full MFM Care; [] Red Team [x] Blue Team Referring Provider: JESSICA Severino [phone] [facility] Jessica Mauricio: [phone]; [x] Dating Criteria: Embryo Transfer 10/03/20 with JONNATHAN 06/21/21 [x] Labs: Lab Results Component Value Date ABORH B Positive 11/24/2020 IDCOOMB Negative 11/24/2020 [id number] Nonreactive 11/24/2020 LABRPR Nonreactive 11/24/2020 RUBELIGG Reactive 11/24/2020 HEPBSAG Nonreactive 11/24/2020 HGB 11.1 (L) 11/24/2020 HCT 35.4 (L) 11/24/2020 LABPLAT 360 11/24/2020 [x] GC/CT- Neg/Neg [x] Genetic Screening: [place] Low Risk [x] Early 1hr GTT (if [...] [] MOC: [] Method of feeding: [] Returned Goods Receiving Clerk: [] PP Depression Discussed: Specialty Infusion Treatment 2 Crohn's disease of [...] CS in the setting of perianal disease. Relevant Orders US Ob Follow Up PTL/PEC/FKC precautions reviewed. Reviewed the importance of presenting to her closest hospital in the case of an emergency for evaluation and if necessary and safe will be transferred to [facility]. DIEUDONNE Raphael Cosigned by Alley Reynoso MD at 04/18/2021 2:47 PM USED CAR MAKE READY WORKER CAR MAKE READY WORKER CAR MAKE READY WORKER CAR MAKE READY WORKER * Pauline Campos RN - 04/12/2021 8:45 AM CST Insulin teaching performed with Liliana and her . We discussed insulin administration with both pens/pen needles and vials/syringes. I discussed her insulin dosing and that is was a lower dose and she should anticipate an increase in the coming weeks as we titrate her insulin to manage her diabetes. I discussed protein rich snacks and meals along with carbs. I encouraged her to continue what she is doing and let her know we are hear for her if she needs anything. I also let her know she is going to have some elevated values and that is ok as I feel it is important that she doesn't feel emotionally guilty or bad regarding her elevated blood sugars and understands that this is a related issue and she only has so much control. She verbalized understanding and thanked me for the support and teaching. CAR MAKE READY WORKER documented in this encounter Miscellaneous Notes * Assessment & Plan Note - Judy Polanco, BINU - 04/12/2021 1:48 PM CSTAssociated Problem(s): Gestational diabetes mellitus (GDM) in third trimester (Resolved 06/12/2021) Counseled today on diagnosed gDM. Discussed goal [...] Will review log again in 1 week. CAR MAKE READY WORKER documented in this encounter Plan of Treatment Not on file documented as of this encounter Results * US Ob Follow Up (05/10/2021 7:17 AM USED CAR MAKE READY WORKER) Fetus# Fetus1 VIEWPOINT Placenta Details anterior, Previa-no VIEWPOINT Estimated Weight 2,905 g&grams VIEWPOINT Presentation Vertex VIEWPOINT Anatomical Region Laterality Modality Abdomen N/A Ultrasound 05/10/2021 7:18 AM USED CAR MAKE READY WORKER us Judy Polanco SOURCING ASSOCIATE IMG OB US PROCEDURE S Final Result documented in this encounter Visit Diagnoses Diagnosis Crohn's disease of small intestine with other complication (HCC)- Primary Excessive growth affecting management of in second trimester, single or unspecified fetus Obesity affecting , antepartum Prediabetes Other abnormal glucose resulting from assisted reproductive technology, antepartum Supervision of high-risk , unspecified trimester Gestational diabetes mellitus (GDM) in third trimester, gestational diabetes method of control unspecified documented in this encounter Care Teams Stock Worker Relationship Specialty Start Date End Date Judy Fishman NP [address] [address] PCP - General 07/31/18 Jessica Martínez MD [address] [address] Consulting Physician Obstetrics and Gynecology 11/16/20 documented as of this encounter
--- OUTSIDE RECORDS SUMMARY | 2024-04-11 06:15 | XMS_ITS | Encounter Summary ---
Author Organization [facility] Address [address] [place] [address] Phone Care Team Providers Care Hospice Coordinator Name Role Phone Judy Fishman NP Primary Care Provider + Jessica Martínez MD Unavailable Encounter Details Date Type Department Care Team (Late st Contact Info) Description 03/19/2021 Telephone [facility] Obstetrics and Gynecology [facility] [place] [address] Emily Brownlee Social History Tobacco Use Types Packs/Day Years Used Date Smoking Tobacco: Former Cigarettes Q uit: 10/03/2020 Smokeless Tobacco: Never Alcohol Use Standard Drinks/Week Comments Yes 2 (1 standard drink = 0.6 oz pur e alcohol) Comments Yes Sex and Gender Information Value Date Recorded Sex Assigned at Not on file Legal Sex Female 7:54 PM MARINE EQUIPMENT TEST ENGINEER Gender Identity Not on file Sexual Orientation Not on file documented as of this encounter Miscellaneous Notes * Telephone Encounter - Emily Pena - 03/19/2021 8:49 AM CST Left voicemail for patient to call NE EQUIPMENT TEST ENGINEER * Telephone Encounter - Emily Pena - 03/19/2021 8:49 AM CST ----- Message from Pauline Campos RN sent at 03/16/2021 10:03 AM MARINE EQUIPMENT TEST ENGINEER ----- Hi Team, Liliana had to go straight to the lab and then to an infusion in the CAM and couldn't stop at check out. Could you please call her later today and get her scheduled for the following:Ob return, Ok Team, visit in 4 weeks with a growthThank you, Pauline Campos RN NE EQUIPMENT TEST ENGINEER documented in this encounter Plan of Treatment Not on file documented as of this encounter Visit Diagnoses Not on filedocumented in this encounter Care Teams Hospice Coordinator Relationship Specialty Start Date End Date Judy Fishman NP [address] [address] PCP - General 07/31/18 Jessica Martínez MD [address] [address] Consulting Physician Obstetrics and Gynecology 11/16/20 documented as of this encounter
--- OUTSIDE RECORDS SUMMARY | 2024-04-11 06:15 | XMS_ITS | Encounter Summary ---
Author Organization [facility] Address [address] [place] [address] Phone Care Team Providers Care Cartridge Assembler Name Role Phone Judy Fishman NP Primary Care Provider + Jessica Martínez MD Unavailable [phone] Encounter Details Date Type Department Care Team (Late st Contact Info) Description 04/25/2021 Telephone [facility] Obstetrics and Gynecology [facility] [place] [address] Arianna Campos Social History Tobacco Use Types Packs/Day Years Used Date Smoking Tobacco: Former Cigarettes Q uit: 10/03/2020 Smokeless Tobacco: Never Alcohol Use Standard Drinks/Week Comments Yes 2 (1 standard drink = 0.6 oz pur e alcohol) Comments Yes Sex and Gender Information Value Date Recorded Sex Assigned at Not on file Legal Sex Female 7:54 PM POWDER EXPERT Gender Identity Not on file Sexual Orientation Not on file documented as of this encounter Miscellaneous Notes * Telephone Encounter - Arianna Campos - 04/25/2021 9:25 AM CST ----- Message from Mandi Jefferson sent at 04/25/2021 8:10 AM POWDER EXPERT ----- Regarding: RE: NO INSURANCE Good morning, I got a call back from her and she said she has gotten a confirmation from the insurance that they will be backdating all the way to February 12, 2021. I told her it is okay to just sign a patient responsibility form and not pay anything upfront in this case. She understands that if for whatever reason the insurance doesn't end up picking it up, she'd be billed the self-pay prices for the NST and appointment and will be responsible for that payment. I'll add a note to her appointments for when she checks in. Mandi Betancourt ----- Message ----- From: Arianna Campos Sent: 04/25/2021 7:50 AM POWDER EXPERT To: Val Aguilar B.A., Mandi Jefferson, # Subject: RE: NO INSURANCE Thank you all. ----- Message ----- From: Mandi Jefferson Sent: 04/24/2021 3:36 PM POWDER EXPERT To: Val Aguilar B.A., Arianna Campos, # Subject: RE: NO INSURANCE I left a message [...] Val Aguilar B.A. Sent: 04/24/2021 3:30 PM POWDER EXPERT To: Arianna Campos, Mandi Jefferson, # Subject: RE: NO INSURANCE That works ----- Message ----- From: Mandi Jefferson Sent: 04/24/2021 3:02 PM POWDER EXPERT To: Val Aguilar B.A., Arianna Campos, # Subject: RE: NO INSURANCE Okay, she said since this was her 's employers fault, they have offered to pay the out of pocket cost, so should I just let her know she'll be billed for that and she'll pay NST upfront? ----- Message ----- From: Val Aguilar B.A. Sent: 04/24/2021 2:58 PM POWDER EXPERT To: Mandi Nicole, # Subject: RE: NO INSURANCE I am not sure how they would break that down either. Lets just collect for the NST for now. Thanks Elias ----- Message ----- From: Justin Marvin Sent: 04/24/2021 2:49 PM POWDER EXPERT To: Val Aguilar B.A., Arianna Campos, # Subject: RE: NO INSURANCE Hi there, I think for a OB consult [place] cpt code 27283, if it [place] [address]. Thanks, Justin Marvin ----- Message ----- From: Ronny Mandi Sent: 04/24/2021 2:43 PM POWDER EXPERT To: Val Aguilar B.A., Arianna Campos, # [...] From: Justin Marvin Sent: 04/24/2021 2:04 PM POWDER EXPERT To: Arianna Campos, # Subject: RE: NO INSURANCE Hi there, Can I please get pricing for this patient's appointments? Her insurance is coming back that it termed as of 02/11/2021. Thanks, Justin Marvin ----- Message ----- From: Arianna Campos Sent: 04/24/2021 1:52 PM POWDER EXPERT To: Justin Marvin Subject: RE: NO INSURANCE Did you forward to [facility]? ----- Message ----- From: Justin Marvin Sent: 04/24/2021 1:33 PM POWDER EXPERT To: Arianna Campos Subject: RE: NO INSURANCE Hi there, I would send it to Maegan I am showing on the portal that this plan termed on 02/11/2021. Thanks, Justin Marvin ----- Message ----- From: Arianna Campos Sent: 04/24/2021 12:08 PM POWDER EXPERT To: Justin Marvin Subject: RE: NO INSURANCE On phone with patient who states everything was updated. Are you able to call plan to inquire before I have her talk to Maegan? ----- Message ----- From: Justin Marvin Sent: 04/24/2021 9:00 AM POWDER EXPERT To: Arianna Campos Subject: RE: NO INSURANCE Hi there, She is still coming back inactive. Thanks, Justin Marvin ----- Message ----- From: Arianna Campos Sent: 04/20/2021 12:58 PM POWDER EXPERT To: Justin Marvin, # Subject: FW: NO INSURANCE Hello, Patient called back to state the assistant professor of nursing of the employer the insurance is through, [employer], did not submit payment for coverage. He submitted the payment today and should be active again next week. Patient was informed that the plan shows a term date of 02/11/2021, I asked that shecontact [facility] to confirm ID and group number is not different. She stated she would call the plan today and confirm. She will follow up if anything is different. I added the info back to her chart. Please rerun it on Friday. Her appt with [facility] is . Thank you, Betsey ----- Message ----- From: Arianna Campos Sent: 04/20/2021 12:43 PM POWDER EXPERT To: Justin Marvin, # Subject: FW: NO INSURANCE Hello, I spoke to this patient-she states there are no gaps in covereage, no job changes, no new ID cards.I informed her the [facility] plan she states she has is coming up inactive. I advised her to contact the plan today and to call back with the information or send back a HYGIEIAt message. Can the plan be contacted to confirm? Thank you, Betsey ----- Message ----- From: Arianna Campos Sent: 04/20/2021 12:36 PM POWDER EXPERT To: Justin Marvin Subject: RE: NO INSURANCE Kyle Anderson, For M, please direct to the M scheduling pool and add me as well so there are no delays to responses as I am merchandise flow team member. For this particular patient, I reached out to her as it looks like her insurance termed. I left a message requesting she contact [facility]. Thank you, Betsey ----- Message ----- From: Mandi Bullock Sent: 04/20/2021 11:34 AM POWDER EXPERT To: Justin Marvin, [employer], # Subject: RE: NO INSURANCE Hello, This is an [facility] patient I have attached them to this message. Mandi ----- Message ----- From: Justin Marvin Sent: 04/20/2021 10:29 AM POWDER EXPERT To: [employer]r Admin Pool Subject: NO INSURANCE Hi there, This patient does not have any insurance attached to her visits. Can someone please update? Thanks, Justin Marvin ER EXPERT documented in this encounter Plan of Treatment Not on file documented as of this encounter Visit Diagnoses Not on filedocumented in this encounter Care Teams Cartridge Assembler Relationship Specialty Start Date End Date Judy Fishman NP [address] [address] PCP - General 07/31/18 Jessica Martínez MD [address] [address] Consulting Physician Obstetrics and Gynecology 11/16/20 documented as of this encounter
--- OUTSIDE RECORDS SUMMARY | 2024-04-11 06:15 | XMS_ITS | Encounter Summary ---
Author Organization [facility] Address [address] [place] [address] Phone Care Team Providers Care Laborer Chemical Processing Name Role Phone Judy Fishman NP Primary Care Provider + Jessica Martínez MD Unavailable [phone] Reason for Referral * (Routine) - Closed Specialty Diagnoses / Procedures Referred By Contac t Referred To Contact Diagnoses Gestational diabetes mellitus (GDM) in third trimester, gestational diabetes method of control unspecified Crohn's disease of small intestine with other complication (HCC) Procedures nonstress test - Judy Polanco NP [address] [facility] [id number] [place] [address] Phone: tel: fax: [facility] (All Locations) Referral ID Status Reason Start Date Expiration Date Visits Re quested Visits Authorized [id number] Closed 04/26/2021 05/26/2022 1 1 TING MACHINE OPERATOR Reason for Visit * Reason Comments Non-stress Test Encounter Details Date Type Department Care Team (Latest Contact Info) Description 04/26/2021 8:30 AM TREATING MACHINE OPERATOR Clinical Support [facility] Obstetrics and Gynecology [address] [facility] 7th [place] [address] Gestational diabetes mellitus (GDM) in third trimester, [...] on file Legal Sex Female 7:54 PM TREATING MACHINE OPERATOR Gender Identity Not on file Sexual Orientation Not on file documented as of this encounter Last Filed Vital Signs Vital Sign Reading Time Taken Comments Blood Pressure 125/70 04/26/2021 8:48 AM TREATING MACHINE OPERATOR Pulse - - Temperature - - Respiratory Rate - - Oxygen Saturation - - Inhaled Oxygen Concentration - - Weight - - Height - - Body Mass Index - - documented in this encounter Plan of Treatment Not on file documented as of this encounter Procedures Procedure Name Priority Date/Time Associated Diagnosis Comments NONSTRESS TEST Routine 04/26/2021 Gestational diabetes mellitus (GDM) in third trimester, gestational diabetes method of control unspecified Crohn's disease of small intestine with other complication (HCC) documented in this encounter Results * nonstress test - (04/26/2021) Judy Polanco HORTICULTURAL FARM MANAGER OB GYNE ORDERABLES Final Result documented in this encounter Visit Diagnoses Diagnosis Gestational diabetes mellitus (GDM) in third trimester, gestational diabetes method of control unspecified- Primary Crohn's disease of small intestine with other complication (HCC) documented in this encounter Care Teams Laborer Chemical Processing Relationship Specialty Start Date End Date Judy Fishman NP [address] [address] PCP - General 07/31/18 Jessica Martínez MD [address] [address] Consulting Physician Obstetrics and Gynecology 11/16/20 documented as of this encounter
--- OUTSIDE RECORDS SUMMARY | 2024-04-11 06:15 | XMS_ITS | Encounter Summary ---
Author Organization [facility] Address [address] [place] [address] Phone Care Team Providers Care Information Technology Advisor Name Role Phone Camilla Fishman NP Primary Care Provider + Jessica Martínez MD Unavailable [phone] Reason for Visit * Cardiology (Routine) - Closed Specialty Diagnoses / Procedures Referred By Contac t Referred To Contact Diagnoses Supervision of high-risk , unspecified trimester resulting from assisted reproductive technology, antepartum Procedures Echocardiogram Camilla Botello, BINU [address] [facility] [id number] [place] [address] Phone: tel: fax: [facility] (All Locations) Referral ID Status Reason Start Date Expiration Date Visits Re quested Visits Authorized [id number] Closed 02/14/2021 03/16/2022 2 2 Encounter Details Date Type Department Care Team (Latest Contact Info) Description 02/23/2021 1:00 PM COLLECTION SUPPORT SPECIALIST Ancillary Procedure [facility] Pediatric Cardiology [facility] [address] [place] [address] Supervision of high-risk , unspecified trimester; resulting from assisted reproductive technology, antepartum Social History Tobacco Use Types Packs/Day Years Used Date Smoking Tobacco: Former Cigarettes Q uit: 10/03/2020 Smokeless Tobacco: Never Alcohol Use Standard Drinks/Week Comments Yes 2 (1 standard drink = 0.6 oz pur e alcohol) Comments Yes Sex and Gender Information Value Date Recorded Sex Assigned at Not on file Legal Sex Female 7:54 PM COLLECTION SUPPORT SPECIALIST Gender Identity Not on file Sexual Orientation Not on file documented as of this encounter Plan of Treatment Not on file documented as of this encounter Procedures Procedure Name Priority Date/Time Associated Diagnosis Comments ECHOCARDIOGRAM Routine 02/23/2021 3:05 PM COLLECTION SUPPORT SPECIALIST Supervision of high-risk , unspecified trimester resulting from assisted reproductive technology, antepartum documented in this encounter Results * Echocardiogram (02/23/2021 3:05 PM COLLECTION SUPPORT SPECIALIST) Anatomical Region Laterality Modality Ultrasound 02/23/2021 1:00 PM COLLECTION SUPPORT SPECIALIST Narrative 02/23/2021 3:59 PM COLLECTION SUPPORT SPECIALIST ?[facility] ? Echo Report ?[facility]'s [address], [place] ??[address] ?[phone] ? Patient Name: LILIANA MANCILLA ? Study Type: Echo ? Patient : 1990 ? Exam Date: ??02/23/2021 ? Age: ?30Y ? Exam Time: ??1:00:00 PM ? Referring MD: CAMILLA BOTELLO ?? Height: ? 157.5cm ?Weight: ? 118.64kg ? BSA: ?2.14 m2 ?Sex: FEMALE ? BP: ? 125/78 ? Electric Motor Mechanic: Noemí Pryor ? Pat. Stat.: Outpatient ? Room: [facility] ? Account:[id number] ? Indications for Study:I.V.F. ? Procedures: COLORFLOW, DOPPLER COMPLETE, , COMPLETE SUMMARY: Initial echocardiogram (2D, color, Doppler) performed on [...] to the LA. Normal systemic venous return. Normal heart rate, 149 bpm with 1:1 AV conduction. No pericardial effusion. Three vessel cord noted, with normal Doppler pattern. Normal ductus venosus Doppler. Atria: Situs: Solitus. RA Size: Normal. ??LA Size: Normal. Septum: PFO. Defect sz. Moderate ??Shunt: [id number] ?? Ventricles: D-looped ??LV size: Normal. LV function:Normal. Rv size: Normal. ??RV function: Normal. IVS: Motion: ??Normal. ??Defect Type/Size: None./None. ??Shunt: None. Grt Vessls: Normal. Aortic Root: Normal. MPA: Normal LPA: Normal. RPA: Normal. ?? Aortic Arch: Unobstructed Ductus Arteriosus: ?78 ? cm/sec Systm Veins: SVC: Normal. IVC: Normal. Pulm Veins: Visualized: 2/4. Connections: Normal. Pericardium: ??Normal Mitral Valve: Biphasic Structure: Normal. Stenosis: No. Regurgitation: No. Tricuspid Valve: Biphasic Structure: Normal. Stenosis:No. Regurgitation: No. Pulmonary Valve: Flow velocity ?? 60 ??cm/sec ??Structure: Normal. Stenosis: No. Regurgitation: No. Aortic Valve: Flow velocity ??73 ?? cm/sec ??Structure: Normal. Stenosis: No. Regurgitation: No. Pulsatility index: Ductal Arch: ??2.7 cardiac rhythm: 1:1 AV conduction Rate: 149 ?bpm FINDINGS: Signed 02/23/2021 03:59 PM Balwinder Li MD Procedure Note Balwinder Li MD - 02/23/2021 [facility] Echo Report [address] [address] Patient Name: LILIANA MANCILLA Study Type: Echo Patient : 1990 Exam Date: 02/23/2021 Age: 30Y Exam Time: 1:00:00 PM Referring MD: CAMILLA BOTELLO Height: 157.5cm Weight: 118.64kg BSA: 2.14 m2 Sex: FEMALE BP: 125/78 Electric Motor Mechanic: Noemí Pryor Pat. Stat.: Outpatient Room: [facility] Account:[id number] Indications for Study:I.V.F. Procedures: COLORFLOW, DOPPLER COMPLETE, , COMPLETE SUMMARY: Initial echocardiogram (2D, color, Doppler) performed on [...] to the LA. Normal systemic venous return. Normal heart rate, 149 bpm with 1:1 AV conduction. No pericardial effusion. Three vessel cord noted, with normal Doppler pattern. Normal ductus venosus Doppler. Atria: Situs: Solitus. RA Size: Normal. LA Size: Normal. Septum: PFO. Defect sz. Moderate Shunt: Blarx-xy-Oviu Ventricles: D-looped LV size: Normal. LV function:Normal. Rv size: Normal. RV function: Normal. IVS: Motion: Normal. Defect Type/Size: None./None. Shunt: None. Grt Vessls: Normal. Aortic Root: Normal. MPA: Normal LPA: Normal. RPA: Normal. Aortic Arch: Unobstructed Ductus Arteriosus: 78 cm/sec Systm Veins: SVC: Normal. IVC: Normal. Pulm Veins: Visualized: 2/4. Connections: Normal. Pericardium: Normal Mitral Valve: Biphasic Structure: Normal. Stenosis: No. Regurgitation: No. Tricuspid Valve: Biphasic Structure: Normal. Stenosis:No. Regurgitation: No. Pulmonary Valve: Flow velocity 60 cm/sec Structure: Normal. Stenosis: No. Regurgitation: No. Aortic Valve: Flow velocity 73 cm/sec Structure: Normal. Stenosis: No. Regurgitation: No. Pulsatility index: Ductal Arch: 2.7 cardiac rhythm: 1:1 AV conduction Rate: 149 bpm FINDINGS: Signed 02/23/2021 03:59 PM Balwinder Li MD Camilla Botello NP CV ECHO PROCEDURES Final Result documented in this encounter Visit Diagnoses Diagnosis Supervision of high-risk , unspecified trimester resulting from assisted reproductive technology, antepartum documented in this encounter Care Teams Information Technology Advisor Relationship Specialty Start Date End Date Camilla Fishman NP [address] [address] PCP - General 07/31/18 Jessica Martínez MD [address] [address] Consulting Physician Obstetrics and Gynecology 11/16/20 documented as of this encounter
--- OUTSIDE RECORDS SUMMARY | 2024-04-11 06:15 | XMS_ITS | Encounter Summary ---
Author Organization [facility] Address [address] [place] [address] Phone Care Team Providers Care Oncology Social Work Name Role Phone Judy Fishman NP Primary Care Provider + Jessica Martínez MD Unavailable [phone] Reason for Visit * Reason Onset Date Comments GLUCOSE LOG 04/19/2021 MFM GLUCOSE LO G Encounter Details Date Type Department Care Team (Late st Contact Info) Description 04/19/2021 Telephone [facility] Maternal- Medicine [facility] 7th Floor [address] [place] [address] Pauline Campos RN GLUCOSE LOG (MFM GLUCOSE LOG) Social History Tobacco Use Types Packs/Day Years Used Date Smoking Tobacco: Former Cigarettes Q uit: 10/03/2020 Smokeless Tobacco: Never Alcohol Use Standard Drinks/Week Comments Yes 2 (1 standard drink = 0.6 oz pur e alcohol) Comments Yes Sex and Gender Information Value Date Recorded Sex Assigned at Not on file Legal Sex Female 7:54 PM CAMPAIGN MANAGEMENT SENIOR MANAGER Gender Identity Not on file Sexual Orientation Not on file documented as of this encounter Miscellaneous Notes * Telephone Encounter - Pauline Campos RN - 05/01/2021 1:39 PM CST Thank you. Patient notified via my chart AIGN MANAGEMENT SENIOR MANAGER * Telephone Encounter - Yessi Pizarro MD - 05/01/2021 9:46 AM CAMPAIGN MANAGEMENT SENIOR MANAGER I have reviewed her glucose log and recommend she increase her NPH from 14 to 16 units at night. Yessi Pizarro MD Maternal Medicine Fellow, PGY7 AIGN MANAGEMENT SENIOR MANAGER * Telephone Encounter - Pauline Campos RN - 05/01/2021 9:25 AM CST Images from the original note were not included. GDM: Current regimen: 04/26/2021 NPH 14 units qHS AIGN MANAGEMENT SENIOR MANAGER * Telephone Encounter - Pauline Campos RN - 04/19/2021 10:11 AM CST Images from the original note were not included. GDM: Glucose log reviewed, overall WNL. No changes, pt notified. Current regimen: started 04/16 NPH 12 units qHS AIGN MANAGEMENT SENIOR MANAGER documented in this encounter Plan of Treatment Not on file documented as of this encounter Visit Diagnoses Not on filedocumented in this encounter Care Teams Oncology Social Work Relationship Specialty Start Date End Date Judy Fishman NP [address] [address] PCP - General 07/31/18 Jessica Martínez MD [address] [address] Consulting Physician Obstetrics and Gynecology 11/16/20 documented as of this encounter
--- OUTSIDE RECORDS SUMMARY | 2024-04-11 06:15 | XMS_ITS | Encounter Summary ---
Author Organization [facility] Address [address] [place] [address] Phone Care Team Providers Care Orchard Worker Name Role Phone Judy Fishman NP Primary Care Provider + Jessica Martínez MD Unavailable [phone] Reason for Referral * (Routine) - Closed Specialty Diagnoses / Procedures Referred By Contac t Referred To Contact Diagnoses Gestational diabetes mellitus (GDM) in third trimester, gestational diabetes method of control unspecified Crohn's disease of small intestine with other complication (HCC) Procedures nonstress test - Ellie Lugo MD Phone: tel: fax: [facility] (All Locations) Referral ID Status Reason Start Date Expiration Date Visits Re quested Visits Authorized [id number] Closed 05/04/2021 06/03/2022 1 1 D TEACHER Reason for Visit * Reason Comments Non-stress Test Encounter Details Date Type Department Care Team (Latest Contact Info) Description 05/04/2021 11:45 AM BLIND TEACHER Clinical Support [facility] Obstetrics and Gynecology [facility] 7th [place] [address] Gestational diabetes mellitus (GDM) in third trimester, [...] on file Legal Sex Female 7:54 PM BLIND TEACHER Gender Identity Not on file Sexual Orientation Not on file documented as of this encounter Plan of Treatment Not on file documented as of this encounter Procedures Procedure Name Priority Date/Time Associated Diagnosis Comments NONSTRESS TEST Routine 05/04/2021 Gestational diabetes mellitus (GDM) in third trimester, gestational diabetes method of control unspecified Crohn's disease of small intestine with other complication (HCC) documented in this encounter Results * nonstress test - (05/04/2021) Ellie Amaya Lugo MD OB GYNE ORDERABLES Final Result documented in this encounter Visit Diagnoses Diagnosis Gestational diabetes mellitus (GDM) in third trimester, gestational diabetes method of control unspecified- Primary Crohn's disease of small intestine with other complication (HCC) documented in this encounter Care Teams Orchard Worker Relationship Specialty Start Date End Date Judy Fishman NP [address] [address] PCP - General 07/31/18 Jessica Martínez MD [address] [address] Consulting Physician Obstetrics and Gynecology 11/16/20 documented as of this encounter
--- OUTSIDE RECORDS SUMMARY | 2024-04-11 06:15 | XMS_ITS | Encounter Summary ---
Author Organization [facility] Healthcare Address [address] [place] [address] Care Team Providers Care Sales Demonstrator Name Role Phone Jduy Fishman SUPPORT COORDINATOR Primary Care Provider + Jessica Martínez MD Unavailable [phone] Reason for Referral * Diagnostic Imaging (Routine) - Closed Specialty Diagnoses / Procedures Referred By Contac t Referred To Contact Diagnoses Obesity affecting , antepartum Procedures US Ob Follow Up Judy Polanco NP [address] [facility] [phone] [place] [address] Phone: tel: fax: [facility] (All Locations) Referral ID Status Reason Start Date Expiration Date Visits Re quested Visits Authorized [id number] Closed 02/14/2021 03/16/2022 1 6 STAR Reason for Visit * Diagnostic Imaging (Routine) - Closed Specialty Diagnoses / Procedures Referred By Contac t Referred To Contact Diagnoses Obesity affecting , antepartum Procedures US Ob Follow Up Judy Polanco NP [address] [facility] [phone] [place] [address] Phone: tel: fax: [facility] (All Locations) Referral ID Status Reason Start Date Expiration Date Visits Re quested Visits Authorized [id number] Closed 02/14/2021 03/16/2022 1 6 Encounter Details Date Type Department Care Team (Latest Contact Info) Description 03/16/2021 8:33 AM ROCK STAR - 03/16/2021 11:59 PM ROCK STAR Hospital Encounter [facility] - Ultrasound [address] [facility], 7th Floor, [address] [facility] [place] [address] Rose Marie Alonso MD [address] [facility] [address] [place] [address] Judy Polanco, BINU [address] [phone] [place] [address] Obesity affecting , antepartum Discharge Disposition: Discharge to home [...] on file Legal Sex Female 7:54 PM ROCK STAR Gender Identity Not on file Sexual Orientation Not on file documented as of this encounter Medications at Time of Discharge vedolizumab (ENTYVIO) 300 mg recon soln 5 mL (300 mg total) aspirin 81 mg enteric coated tablet Take 81 mg by mouth daily 05/31/2021 cholecalciferol (VITAMIN D-3) 1,000 unit capsule 06/12/2020 06/13/2022 diphenhydramine HCl (UNISOM, DIPHENHYDRAMINE, ORAL) Take by mouth 05/31/2021 no122/iron/folic acid ( MULTI ORAL) Take by mouth daily 05/31/2021 pyridoxine (vitamin B-6) 100 mg tablet Take 100 mg by mouth daily 04/26/2021 documented as of this encounter Discharge Disposition Disposition Code Departure Means Destination Discharge to home or self care documented in this encounter Plan of Treatment Not on file documented as of this encounter Procedures Procedure Name Priority Date/Time Associated Diagnosis Comments US OB FOLLOW UP Schedule Routine, Read Routine (OP Routine) 03/16/2021 8:33 AM ROCK STAR Obesity affecting , antepartum documented in this encounter Results * US Ob Follow Up (03/16/2021 8:33 AM ROCK STAR) Fetus# Fetus1 VIEWPOINT Placenta Details anterior, Previa-no VIEWPOINT Estimated Weight 1,213 g&grams VIEWPOINT Presentation Vertex VIEWPOINT Anatomical Region Laterality Modality Abdomen N/A Ultrasound 03/16/2021 8:39 AM ROCK STAR us Judy Polanco SUPPORT COORDINATOR IMG OB US PROCEDURE S Final Result documented in this encounter Visit Diagnoses Diagnosis Obesity affecting , antepartum documented in this encounter Care Teams Sales Demonstrator Relationship Specialty Start Date End Date Judy Fishman NP [address] [employer] [address] [place] [address] PCP - General 07/31/18 Jessica Martínez MD [address] [employer] [address] [place] [address] Consulting Physician Obstetrics and Gynecology 11/16/20 documented as of this encounter
--- OUTSIDE RECORDS SUMMARY | 2024-04-11 06:15 | XMS_ITS | Encounter Summary ---
Author Organization [facility] Address [address] [place] [address] Care Team Providers Care College [employer] Registrar Name Role Phone Judy Fishman SURGEON/PRESIDENT Primary Care Provider + Jessica Martínez MD Unavailable [phone] Reason for Referral * Diagnostic Imaging (Routine) - Closed Specialty Diagnoses / Procedures Referred By Mary roberson Referred To Contact Diagnoses Excessive growth affecting management of in second trimester, single or unspecified fetus Supervision of high-risk , unspecified trimester Crohn's disease of small intestine with other complication (HCC) Prediabetes Procedures US Ob Follow Up Erick Nava MD [address] [facility] [phone] [place] [address] Phone: tel: fax: [facility] (All Locations) Referral ID Status Reason Start Date Expiration Date Visits Re quested Visits Authorized [id number] Closed 03/16/2021 04/15/2022 1 6 BUILDER Reason for Visit * Diagnostic Imaging (Routine) - Closed Specialty Diagnoses / Procedures Referred By Mary roberson Referred To Contact Diagnoses Excessive growth affecting management of in second trimester, single or unspecified fetus Supervision of high-risk , unspecified trimester Crohn's disease of small intestine with other complication (HCC) Prediabetes Procedures US Ob Follow Up Erick Nava MD [address] [facility] [phone] [place] [address] Phone: tel: fax: [facility] (All Locations) Referral ID Status Reason Start Date Expiration Date Visits Re quested Visits Authorized [id number] Closed 03/16/2021 04/15/2022 1 6 Encounter Details Date Type Department Care Team (Latest Contact Info) Description 04/12/2021 7:35 AM FORM BUILDER - 04/12/2021 11:59 PM FORM BUILDER Hospital Encounter [facility] - Ultrasound [address] [facility], 7th Floor, [address] [place] [address] Erick Nava MD [address] [phone] [place] [address] Excessive growth affecting management of in second trimester, single or unspecified fetus; Supervision of high-risk , unspecified trimester; Crohn's disease of small intestine with other complication (HCC); Prediabetes Discharge Disposition: Discharge to home or self care Social History Tobacco Use Types Packs/Day Years Used Date Smoking Tobacco: Former Cigarettes Q uit: 10/03/2020 Smokeless Tobacco: Never Alcohol Use Standard Drinks/Week Comments Yes 2 (1 standard drink = 0.6 oz pur e alcohol) Comments Yes Sex and Gender Information Value Date Recorded Sex Assigned at Not on file Legal Sex Female 7:54 PM FORM BUILDER Gender Identity Not on file Sexual Orientation Not on file documented as of this encounter Medications at Time of Discharge vedolizumab (ENTYVIO) 300 mg recon soln 5 mL (300 mg total) aspirin 81 mg enteric coated tablet Take 81 mg by mouth daily 2 blood glucose diagnostic strip Check glucose fasting and one hour after each meal 200 each 6 03/27/2021 2 cholecalciferol (VITAMIN D-3) 1,000 unit capsule [...] DAILY DIRECTED 200 each 3 04/12/2021 2 no122/iron/folic acid ( MULTI ORAL) Take by mouth daily 2 pyridoxine (vitamin B-6) 100 mg tablet Take 100 mg by mouth daily 2 documented as of this encounter Discharge Disposition Disposition Code Departure Means Destination Discharge to home or self care documented in this encounter Plan of Treatment Not on file documented as of this encounter Procedures Procedure Name Priority Date/Time Associated Diagnosis Comments US OB FOLLOW UP Schedule Routine, Read Routine (OP Routine) 04/12/2021 7:35 AM FORM BUILDER Excessive growth affecting management of in second trimester, single or unspecified fetus Supervision of high-risk , unspecified trimester Crohn's disease of small intestine with other complication (HCC) Prediabetes documented in this encounter Results * US Ob Follow Up (04/12/2021 7:35 AM FORM BUILDER) Fetus# Fetus1 VIEWPOINT Placenta Details anterior, Previa-no VIEWPOINT Estimated Weight 1,954 g&grams VIEWPOINT Presentation Vertex VIEWPOINT Anatomical Region Laterality Modality Abdomen N/A Ultrasound 04/12/2021 7:37 AM FORM BUILDER us Erick Nava MD IMG OB US PROCEDU RES Final Result documented in this encounter Visit Diagnoses Diagnosis Excessive growth affecting management of in second trimester, single or unspecified fetus Supervision of high-risk , unspecified trimester Crohn's disease of small intestine with other complication (HCC) Prediabetes Other abnormal glucose documented in this encounter Care Teams [employer] Registrar Relationship Specialty Start Date End Date Judy Fishman NP [address] [address] PCP - General 07/31/18 Jessica Martínez MD [address] [address] Consulting Physician Obstetrics and Gynecology 11/16/20 documented as of this encounter
--- OUTSIDE RECORDS SUMMARY | 2024-04-11 06:15 | XMS_ITS | Encounter Summary ---
Author Organization [facility] Address [address] [place] [address] Phone Care Team Providers Care Life Sciences Teacher Name Role Phone Judy Fishman NP Primary Care Provider + Jessica Martínez MD Unavailable [phone] Reason for Referral * (Routine) - Closed Specialty Diagnoses / Procedures Referred By Contac t Referred To Contact Diagnoses Gestational diabetes mellitus (GDM) in third trimester, gestational diabetes method of control unspecified Procedures nonstress test - Judy Polanco NP [address] [facility] [phone] [place] [address] Phone: tel: fax: [facility] (All Locations) Referral ID Status Reason Start Date Expiration Date Visits Re quested Visits Authorized [id number] Closed 05/01/2021 05/31/2022 1 1 ICAL PLANT TECHNICAL DIRECTOR Reason for Visit * Reason Comments NST/BPP Visit Encounter Details Date Type Department Care Team (Latest Contact Info) Description 05/01/2021 3:00 PM CHEMICAL PLANT TECHNICAL DIRECTOR Clinical Support [facility] Obstetrics and Gynecology [facility] 7th [place] [address] Gestational diabetes mellitus (GDM) in third trimester, [...] on file Legal Sex Female 7:54 PM CHEMICAL PLANT TECHNICAL DIRECTOR Gender Identity Not on file Sexual Orientation Not on file documented as of this encounter Plan of Treatment Not on file documented as of this encounter Procedures Procedure Name Priority Date/Time Associated Diagnosis Comments NONSTRESS TEST Routine 05/01/2021 Gestational diabetes mellitus (GDM) in third trimester, gestational diabetes method of control unspecified documented in this encounter Results * nonstress test - (05/01/2021) Judy Polanco REGIONAL ENGINEER OB GYNE ORDERABLES Final Result documented in this encounter Visit Diagnoses Diagnosis Gestational diabetes mellitus (GDM) in third trimester, gestational diabetes method of control unspecified- Primary documented in this encounter Care Teams Life Sciences Teacher Relationship Specialty Start Date End Date Judy Fishman NP [address] [address] PCP - General 07/31/18 Jessica Martínez MD [address] [address] Consulting Physician Obstetrics and Gynecology 11/16/20 documented as of this encounter
--- OUTSIDE RECORDS SUMMARY | 2024-04-11 06:15 | XMS_ITS | Encounter Summary ---
Author Organization [facility] Address [address] [facility] [address] [place] [address] Phone Care Team Providers Care Asphalt Engineer Name Role Phone Judy Fishman NP Primary Care Provider + Jessica Martínez MD Unavailable [phone] Reason for Referral * Consultation (Routine) - Closed Specialty Diagnoses / Procedures Referred By Contac t Referred To Contact Diabetes and Nutrition Services Diagnoses Diet controlled gestational diabetes mellitus (GDM) in second trimester Supervision of high-risk , unspecified trimester Obesity affecting , antepartum Erick Nava MD [address] [facility] [phone] [place] [address] Phone: tel: fax: [facility] Endocrinology Metabolism and Lipid [address] [facility] 13th [place] [address] [place] [address] Phone: tel: fax: Referral ID Status Reason Start Date Expiration Date V isits Requested Visits Authorized [id number] Closed Specialty Services Required 03/27/2021 04/26/2022 30 30 Question Answer [id number] No Service requested Diabetes Self-Management Education/Therapy (DSMT) + Medical Nutrition Therapy (MNT) DNCNRFR Gestational Diabetes Reason for Referral New Diagnosis [id number] None Complications/Comorbidities (Check all that apply): None [id number] Initial / Annual Follow-up MNT Please select the performing region: [facility] (All Locations) [[id number]] Please select the performing department: [facility] EML CAM 13B [[id number]] # of visits: 10 Comments Next appointment with MFM in 04/12. IC SEPARATOR OPERATOR Encounter Details Date Type Department Care Team (Late st Contact Info) Description 03/27/2021 Orders Only [facility] Maternal- Medicine [address] [facility] 7th Floor [address] [place] [address] Pauline Campos RN Diet controlled gestational diabetes mellitus (GDM) in [...] file Legal Sex Female 7:54 PM FABRIC SEPARATOR OPERATOR Gender Identity Not on file Sexual Orientation Not on file documented as of this encounter Ordered Prescriptions Prescription Sig Dispense Quantity Refills Last Filled Start Date End Date lancets 33 gauge misc CHECK GLUCOSE FASTING AND ONE HOUR AFTER EACH MEAL 200 each 6 03/27/2021 2 blood glucose diagnostic strip Check glucose fasting and one hour after each meal 200 each 6 03/27/2021 2 blood-glucose meter kit 1 kit once for 1 dose 1 kit 1 03/27/2021 1 documented in this encounter Plan of Treatment Scheduled Referrals Name Type Priority Associated Diagnoses Orde r Schedule Ambulatory referral to Diabetic Education & Nutrition Services Outpatient Referral Routine Diet controlled gestational diabetes mellitus (GDM) in second trimester Supervision of high-risk , unspecified trimester Obesity affecting , antepartum Expected: 04/10/2021 (Approximate), Expires: 03/27/2022 documented as of this encounter Visit Diagnoses Diagnosis Diet controlled gestational diabetes mellitus (GDM) in second trimester- Primary Supervision of high-risk , unspecified trimester Obesity affecting , antepartum documented in this encounter Care Teams Asphalt Engineer Relationship Specialty Start Date End Date Judy Fishman NP [address] [id number] PCP - General 07/31/18 Jessica Martínez MD [address] [address] Consulting Physician Obstetrics and Gynecology 11/16/20 documented as of this encounter
--- OUTSIDE RECORDS SUMMARY | 2024-04-11 06:15 | XMS_ITS | Encounter Summary ---
Author Organization [facility] Address [address] [place] [address] Phone Care Team Providers Care Shower Doors And Panels Fabricator Name Role Phone Judy Fishman NP Primary Care Provider + Jessica Martínez MD Unavailable [phone] Encounter Details Date Type Department Care Team (Late st Contact Info) Description 05/30/2021 Telephone [facility] Obstetrics and Gynecology [facility] [place] [address] Elena Soto Social History Tobacco [...] in a usp (including now)? No 05/31/2021 [place] Depression Scale Answer Date Recorded [place] Depression Scale Total 2 06/12/2021 The thought of harming myself has occurred to me . Never 06/12/2021 Comments No Sex and Gender Information Value Date Recorded Sex Assigned at Not on file Legal Sex Female 7:54 PM FORESTRY LABORER Gender Identity Not on file Sexual Orientation Not on file documented as of this encounter Miscellaneous Notes * Telephone Encounter - Elena Soto - 05/30/2021 9:54 AM CST Patient called in to cancel future appointments, stating that she delivered on 05/29, she asked to schedule follow up appointments. Notified patient we will contact her to schedule once discharge notes are entered. STRY LABORER documented in this encounter Plan of Treatment Not on file documented as of this encounter Visit Diagnoses Not on filedocumented in this encounter Additional Health Concerns Infection Onset Date Last Indicated Resolved Time COVID19 05/28/2021 05/28/2021 06/10/2021 3:06 AM FORESTRY LABORER COVID: Recovered Comment:Added based on recent COVID infection. 06/10/2021 06/11/2021 10/08/2021 3:05 AM C DT documented as of this encounter Care Teams Shower Doors And Panels Fabricator Relationship Specialty Start Date End Date Judy Fishman NP [address] [address] PCP - General 07/31/18 Jessica Martínez MD [address] [address] Consulting Physician Obstetrics and Gynecology 11/16/20 documented as of this encounter
--- OUTSIDE RECORDS SUMMARY | 2024-04-11 06:15 | XMS_ITS | Encounter Summary ---
Author Organization [facility] Address [address] [place] [address] Phone Care Team Providers Care Ski Lift Mechanic Name Role Phone Judy Fishman NP Primary Care Provider + Jessica Martínez MD Unavailable [phone] Reason for Visit * Reason Comments High Risk Gestation Encounter Details Date Type Department Care Team (Late st Contact Info) Description 04/26/2021 9:15 AM SOYBEAN SPECIALTIES COOK Office Visit [facility] Maternal- Medicine [address] [facility] Outpatient Health 7th Floor [address] [place] [address] Judy Polanco, BINU [address] [facility] [address] [phone] [place], [place] [id number] Crohn's disease of small intestine with other [...] on file Legal Sex Female 7:54 PM SOYBEAN SPECIALTIES COOK Gender Identity Not on file Sexual Orientation Not on file documented as of this encounter Last Filed Vital Signs Vital Sign Reading Time Taken Comments Blood Pressure 125/70 04/26/2021 9:01 AM [employer]YBEAN SPECIALTIES COOK Pulse 96 04/26/2021 9:01 AM [employer] [facility] Temperature - - Respiratory Rate - - Oxygen Saturation 98% 04/26/2021 9:01 AM [employer]YBEAN [employer] COOK Inhaled Oxygen Concentration - - Weight 114.3 kg (252 lb) 04/26/2021 9:01 AM [employer]BE[employer] C[employer] Height 157.5 cm (5' 2 ) 04/26/2021 9:01 AM SO[employer]BE[employer] COOK Body Mass Index 46.09 04/26/2021 9:01 AM SOYBEAN [employer] COOK documented in this encounter Progress Notes * Judy Polanco, PREPARED FOODS SUPERVISOR - 04/26/2021 9:15 AM CST MFM Return Visit 04/26/2021 Liliana Mancilla is a 30 y.o. at 32w0d who is here for a return OB visit. Her is complicated by Crohn's disease, IVF , BMI 42, and history of prediabetes. Subjective: Feels well today. She denies contractions, loss of fluid, or vaginal bleeding and reports good movement. Denies symptoms of flare. Objective: BP 125/70 Pulse 96 Ht 157.5 cm (5' 2 ) Wt 252 lb (114.3 kg) LMP 09/15/2020 (Exact Date) SpO2 98% BMI 46.09 kg/m?? General: NAD Abdomen: Soft, gravid, NT, FHR + (reactive NST) Extremities: WWP, no edema Ultrasound: 04/26/2021 n/a Assessment/Plan: Liliana Mancilla is a 30 y.o. at 32w0d with a complicated by the following: Problem List JONNATHAN 06/21/21 Crohn's disease of small intestine with other complication (HCC) - Primary Overview Diagnosed with Crohn's disease in 2019 and has been on Entyvio (vedolizumab) since that time without any additional flares. She gets her Entyvio injections q4 weeks. Final infusion currently scheduled for 05/18 at 35 weeks, will plan for infusion Recommendations: - 1st trimester labs: B12 [328] , ferritin [125], folate [19.8], Vit D[39] - Anatomy US- complete and wnl - Serial growth US - testing starting at 32 weeks - Delivery at 39 weeks unless otherwise indicated--plan given no history of perianal disease. Would recommend CS in the setting of perianal disease. Relevant Orders Labor Induction - Prediabetes Overview History of prediabetes with most recent A1c 5.6% (02/2020). [x] early 1hr GTT- wnl [x] Gtt at 24-28 weeks-gDM Obesity affecting , antepartum Overview Previously counseled Rrecommend a specialized anatomic survey, serial growth assessment and testing. Aspirin 81mg should be started after 12 weeks Relevant Orders Labor Induction - resulting from assisted reproductive technology, antepartum Overview Previously counseled [x] ECHO Relevant Orders Labor Induction - Excessive growth affecting management of in second trimester Overview 02/14/2021 anataomy with growth at the 98%, dating by IVF 04/12/2021 97%, s/p counseling Continue serial growths Recommend tight glycemic control Relevant Orders Labor Induction - Gestational diabetes mellitus (GDM) in third trimester Overview Failed 3 hour gtt S/p counseling 04/12/2021 Current regimen: 04/26/2021 NPH 14 units qHS Plan: Serial growths testing at 32 weeks Delivery by 39 Current Assessment & Plan Fastings continue to be elevated with a few elevated breakfast PCs. Will adjust bedtime insulin andhave patient send log on Friday for review. Relevant Orders Labor Induction - Supervision of high-risk , unspecified trimester Overview [x] Full MFM Care; [] Red Team [x] Blue Team Referring Provider: JESSICA Severino [phone] [facility] Jessica Mauricio: [phone]; [x] Dating Criteria: Embryo Transfer 10/03/20 with JONNATHAN 06/21/21 [x] Labs: Lab Results Component Value Date ABORH B Positive 11/24/2020 IDCOOMB Negative 11/24/2020 [id number] Nonreactive 11/24/2020 LABRPR Nonreactive 11/24/2020 RUBELIGG Reactive 11/24/2020 HEPBSAG Nonreactive 11/24/2020 HGB 11.1 (L) 11/24/2020 HCT 35.4 (L) 11/24/2020 LABPLAT 360 11/24/2020 [x] GC/CT- Neg/Neg [x] Genetic Screening: [place] Low Risk [x] Early 1hr GTT (if [...] GBS: [] COVID testing: Counselling [] MOD: plan for IOL 3/ PM- MFM RN to set up [x] Place of delivery: [facility] [] MOC: [x] Method of feeding: breast [x] Supervisor Liquid Yeast: [] PP Depression Discussed: should not be given any live vaccines. Relevant Orders Labor Induction - Tdap vaccine greater than or equal to 7yo IM (Completed) Specialty Infusion Treatment 2 Crohn's disease of small intestine with other complication (HCC) - Primary Overview Diagnosed with Crohn's disease in 2019 and has been on Entyvio (vedolizumab) since that time without any additional flares. She gets her Entyvio injections q4 weeks. Final infusion currently scheduled for 05/18 at 35 weeks, will plan for infusion Recommendations: - 1st trimester labs: B12 [328] , ferritin [125], folate [19.8], Vit D[39] - Anatomy US- complete and wnl - Serial growth US - testing starting at 32 weeks - Delivery at 39 weeks unless otherwise indicated--plan given no history of perianal disease. Would recommend CS in the setting of perianal disease. Relevant Orders Labor Induction - PTL/PEC/FKC precautions reviewed. Reviewed the importance of presenting to her closest hospital in the case of an emergency for evaluation and if necessary and safe will be transferred to [facility] documented in this encounter Miscellaneous Notes * Assessment & Plan Note - Judy Polanco NP - 04/26/2021 5:10 PM CSTAssociated Problem(s): Gestational diabetes mellitus (GDM) in third trimester (Resolved 06/12/2021) Fastings continue to be elevated with a few elevated breakfast PCs. Will adjust bedtime insulin andhave patient send log on Friday for review. [facility] [employer] [facility] documented in this encounter Plan of Treatment [...] , unspecified trimester documented in this encounter Discontinued Medications Medication Sig Discontinue Reason Start Date End Da te calcium carbonate-vitamin D3 1,500 mg (600 mg elemental)-1,000 unit capsule Take by mouth Therapy completed 04/26/2021 pyridoxine (vitamin B-6) 100 mg tablet Take 100 mg by mouth daily Therapy completed 04/26/2021 documented as of this encounter Historical Medications * This list may reflect changes made after this encounter. calcium carbonate (TUMS ORAL) Take by mouth 05/31/2021 added in this encounter Orders Immunization/Injection Count Last Ordered Date First Ordered Date TDAP VACCINE GREATER THAN OR EQUAL TO 7YO IM 1 04/26/2021 documented in this encounter Care Teams Ski Lift Mechanic Relationship Specialty Start Date End Date Judy Fishman NP [address] [address] PCP - General 07/31/18 Jessica Martínez MD [address] [address] Consulting Physician Obstetrics and Gynecology 11/16/20 documented as of this encounter
--- OUTSIDE RECORDS SUMMARY | 2024-04-11 06:15 | XMS_ITS | Encounter Summary ---
Author Organization [facility] Address [address] [place] [address] Phone Care Team Providers Care Residential Door Unit Installer Name Role Phone Judy Fishman NP Primary Care Provider + Jessica Martínez MD Unavailable [phone] Reason for Referral * (Routine) - Closed Specialty Diagnoses / Procedures Referred By Contac t Referred To Contact Diagnoses Gestational diabetes mellitus (GDM) in third trimester, gestational diabetes method of control unspecified Crohn's disease of small intestine with other complication (HCC) Procedures nonstress test - Judy Polanco NP [address] [facility] [address] [phone] [place] [address] Phone: tel: fax: [facility] (All Locations) Referral ID Status Reason Start Date Expiration Date Visits Re quested Visits Authorized [id number] Closed 05/24/2021 06/23/2022 1 1 SPORTATION DISPATCHER Reason for Visit * Reason Comments Non-stress Test Encounter Details Date Type Department Care Team (Latest Contact Info) Description 05/24/2021 9:00 AM TRANSPORTATION DISPATCHER Clinical Support [facility] Obstetrics and Gynecology [address] [facility] Health 7th [place] [address] Gestational diabetes mellitus (GDM) in third trimester, [...] on file Legal Sex Female 7:54 PM TRANSPORTATION DISPATCHER Gender Identity Not on file Sexual Orientation Not on file documented as of this encounter Plan of Treatment Not on file documented as of this encounter Procedures Procedure Name Priority Date/Time Associated Diagnosis Comments NONSTRESS TEST Routine 05/24/2021 Gestational diabetes mellitus (GDM) in third trimester, gestational diabetes method of control unspecified Crohn's disease of small intestine with other complication (HCC) documented in this encounter Results * nonstress test - (05/24/2021) Judy Polanco STRAW HAT MACHINE OPERATOR OB GYNE ORDERABLES Final Result documented in this encounter Visit Diagnoses Diagnosis Gestational diabetes mellitus (GDM) in third trimester, gestational diabetes method of control unspecified- Primary Crohn's disease of small intestine with other complication (HCC) documented in this encounter Care Teams Residential Door Unit Installer Relationship Specialty Start Date End Date Judy Fishman NP [address] [address] PCP - General 07/31/18 Jessica Martínez MD [address] [address] Consulting Physician Obstetrics and Gynecology 11/16/20 documented as of this encounter
--- OUTSIDE RECORDS SUMMARY | 2024-04-11 06:16 | XMS_ITS | Encounter Summary ---
Author Organization [facility] Address [address] [facility] [address] [place] [address] Care Team Providers Care Computing Architect Name Role Phone Judy Fishman NUCLEAR WORKER TECHNICIAN Primary Care Provider + Jessica Martínez MD Unavailable [phone] Encounter Details Date Type Department Care Team (Late st Contact Info) Description 01/03/2021 Orders Only [facility] Testing Site - [facility]. [place] [id number] [facility] [address] [place] [address] America Collins MD [address] [facility] [phone] [place], [place] [id number] Exposure to SARS-associated coronavirus (Primary Dx) Social History Tobacco Use Types Packs/Day Years Used Date Smoking Tobacco: Former Cigarettes Q uit: 10/03/2020 Smokeless Tobacco: Never Alcohol Use Standard Drinks/Week Comments Yes 2 (1 standard drink = 0.6 oz pur e alcohol) Comments Yes Sex and Gender Information Value Date Recorded Sex Assigned at Not on file Legal Sex Female 7:54 PM PLASTIC WELDER Gender Identity Not on file Sexual Orientation Not on file documented as of this encounter Progress Notes * Nuha Bustillo MA - 01/03/2021 1:01 PM CDT Testing types: Symptomatic High Risk ?? Date of Symptom Onset 01/02/2021 ?? Testing site patient will be sent to: [facility] [place] ?? Date testing requested: 01/03/2021 ?? Testing: COVID-19 RNA Flu/RSV Strep Is this the first COVID-19 test for this patient? Does the patient currently work in a healthcare facility with direct patient contact? Unknown ?? Is the patient a resident of a congregate care or living setting? No ?? Is the patient ? Yes documented in this encounter Miscellaneous Notes * Addendum Note - Helen Ruiz - 01/03/2021 1:01 PM CDTAddended by: HELEN RUIZ on: 01/03/2021 05:39 PM Modules accepted: Orders documented in this encounter Plan of Treatment Not on file documented as of this encounter Results * Influenza A/B and RSV PCR Nasopharyngeal (01/03/2021 1:40 PM CDT) Pathologist [facility] Influenza A RNA Negative Negative [facility] Influenza B RNA Negative Negative [facility] RSV RNA Negative Negative [facility] Comment: Interpretive Data Testing performed by the [facility] Molecular Infectious Disease Laboratory. ??This test is performed using the JAQUELINE Influenza A/B and RSV Assay. ??This is a real-time RT-PCR test for the qualitative detection of nucleic acid from Influenza A, Influenza B, and RSV. ??This assay has been cleared by the FDA for routine clinical use. ??The performance characteristics have been verified by the [facility] Laboratory. ?? Results should be interpreted in combination with clinical context and a negative result does not rule out infection. Interpretive data last revised 2020. Nasopharyngeal 01/03/2021 1: 40 PM CDT 01/03/2021 7:13 PM CDT us America Collins MD LAB MICROBIOLOGY - GEN ERAL ORDERABLES Final Result [facility] [place] [address] * Streptococcus Group A PCR (01/03/2021 1:40 PM CDT) Strep A DNA Not Detected Not Detected [facility] Throat 01/03/2021 1:40 PM CDT 01/03/2021 6:55 PM CDT America Collins MD LAB MICROBIOLOGY - GEN ERAL ORDERABLES Final Result Performing Organization Address City/State/[facility] Co de Phone Number [facility] Department [place] [address] documented in this encounter Visit Diagnoses Diagnosis Exposure to SARS-associated coronavirus- Primary documented in this encounter Additional Health Concerns Infection Onset Date Last Indicated Resolved Time COVID: Suspected 01/03/2021 01/03/2021 01/03/2021 9:27 PM CDT documented as of this encounter Care Teams Computing Architect Relationship Specialty Start Date End Date Judy Fishman NP [address] [address] PCP - General 07/31/18 Jessica Martínez MD [address] [address] Consulting Physician Obstetrics and Gynecology 11/16/20 documented as of this encounter
--- OUTSIDE RECORDS SUMMARY | 2024-04-11 06:16 | XMS_ITS | Encounter Summary ---
Author Organization [facility] Address [address] [place] [address] Phone Care Team Providers Care System Auditor Name Role Phone Judy Fishman GRADE TEACHER Primary Care Provider + Encounter Details Date Type Department Care Team (Late st Contact Info) Description 10/27/2020 1:20 PM CDT Lab [facility] Endocrinology Metabolism and Lipid [address] [facility] 5th [place] [address] [place] [address] Crohn's disease of small intestine with other complication (HCC) Social History Tobacco Use Types Packs/Day Years Used Date Smoking Tobacco: Every Day Cigarettes Smokeless Tobacco: Never Alcohol Use Standard Drinks/Week Comments Yes 2 (1 standard drink = 0.6 oz pur e alcohol) Comments Unknown Sex and Gender Information Value Date Recorded Sex Assigned at Not on file Legal Sex Female 7:54 PM ADDICTION COUNSELOR Gender Identity Not on file Sexual Orientation Not on file documented as of this encounter Plan of Treatment Not on file documented as of this encounter Visit Diagnoses Diagnosis Crohn's disease of small intestine with other complication (HCC) documented in this encounter Care Teams System Auditor Relationship Specialty Start Date End Date Juyd Fishman NP [address] [id number] PCP - General 07/31/18 documented as of this encounter
--- OUTSIDE RECORDS SUMMARY | 2024-04-11 06:16 | XMS_ITS | Encounter Summary ---
Author Organization [facility] Address [address] [place] [address] Phone Care Team Providers Care Automotive Mechanical Engineer Name Role Phone Judy Fishman ROOF BOLTER Primary Care Provider + Jessica Martínez MD Unavailable [phone] Encounter Details Date Type Department Care Team (Late st Contact Info) Description 12/19/2020 Documentation [facility] Gastroenterology [address] [facility] 8th [place] [address] [place] [address] Abiola Silverman RN Social History Tobacco Use Types Packs/Day Years Used Date Smoking Tobacco: Former Cigarettes Q uit: 10/03/2020 Smokeless Tobacco: Never Alcohol Use Standard Drinks/Week Comments Yes 2 (1 standard drink = 0.6 oz pur e alcohol) Comments Yes Sex and Gender Information Value Date Recorded Sex Assigned at Not on file Legal Sex Female 7:54 PM GAS PLUMBER Gender Identity Not on file Sexual Orientation Not on file documented as of this encounter Progress Notes * Abiola Silverman RN - 12/19/2020 4:44 PM CDT Plan per [place]: - [facility] documented in this encounter Plan of Treatment Not on file documented as of this encounter Visit Diagnoses Not on filedocumented in this encounter Care Teams Automotive Mechanical Engineer Relationship Specialty Start Date End Date Judy Fishman NP [address] [address] PCP - General 07/31/18 Jessica Martínez MD [address] [address] Consulting Physician Obstetrics and Gynecology 11/16/20 documented as of this encounter
--- OUTSIDE RECORDS SUMMARY | 2024-04-11 06:16 | XMS_ITS | Encounter Summary ---
Author Organization [facility] Address [address] [place] [address] Phone Care Team Providers Care Wire Annealer Name Role Phone Judy Fishman DOCTOR'S ASSISTANT Primary Care Provider + Reason for Visit * Episode Based Medications (Routine) - Pending Review Specialty Diagnoses / Procedures Referred By Mary roberson Referred To Contact Diagnoses Crohn's disease of small intestine with other complication (HCC) Procedures AL INJECTION, VEDOLIZUMAB Trent Severino MD [address] [place] [address] Phone: tel: fax: [facility] Infusion Therapy [facility] [address]th [place] [address] [place] [address] Phone: tel: fax: Referral ID Status Reason Start Date Expiration Date V isits Requested Visits Authorized [id number] Pending Review 09/26/2021 09/26/2022 41 41 Encounter Details Date Type Department Care Team (Late st Contact Info) Description 10/27/2020 11:30 AM CDT Infusion 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 VSS. Dominic Rios RN documented in this encounter Plan of Treatment Not on file documented as of this encounter Procedures Procedure Name Priority Date/Time Associated Diagnosis Comments CBC WITH AUTO DIFFERENTIAL Routine 10/27/2020 11:25 AM CDT Crohn's disease of small intestine with other complication (HCC) COMPREHENSIVE METABOLIC PANEL Routine 10/27/2020 11:25 AM CDT Crohn's disease of small intestine with other complication (HCC) documented in this encounter Results * (ABNORMAL) CBC with auto differential (10/27/2020 11:25 AM CDT) White Blood Count 12.6(H) 3.6 - 11.2 K/uL [facility] RBC 3.90 3.63 - 4.92 M/uL [facility] Hemoglobin 11.0(L) 11.9 - 15.5 g/dL [facility] Hematocrit 32.7(L) 36.1 - 44.3 % [facility] MCV 83.9 80.0 - 97.6 fL [facility] MCH 28.2 26.7 - 33.7 pg [facility] MCHC 33.6 32.7 - 35.5 g/dL [facility] RBC Dist Width 13.5 12.3 - 17.0 % [facility] Platelet Count 332 140 - 440 K/uL [facility] MPV 8.6 6.8 - 10.4 fL [facility] Neutrophils % 63.0 38.7 - 74.5 % [facility] Lymphocyte % 29.7 20.0 - 54.3 % [facility] Monocytes % 3.7(L) 4.3 - 13.5 % [facility] Eosinophils % 3.1 0.0 - 6.0 % [facility] Basophil % 0.5 0.0 - 3.0 % [facility] Absolute Neutrophil 8.0(H) 1.8 - 6.6 K/uL [facility] Absolute Lymphocyte 3.7(H) 0.8 - 3.3 K/uL [facility] Absolute Monocyte 0.5 0.2 - 1.2 K/uL [facility] Absolute Eosinophil 0.4 0.0 - 0.5 K/uL [facility] Absolute Basophil 0.1 0.0 - 0.2 K/uL [facility] Nucleated RBC % 0.0 0.0 - 0.4 /100 WBC [facility] Blood specimen (specimen) 10/27/2020 11:25 AM CDT 10/27/2020 12:21 PM CDT Trent Severino MD LAB BLOOD ORDERABLES Final Re sult [facility] * (ABNORMAL) Comprehensive metabolic panel (10/27/2020 11:25 AM CDT) Total Protein 6.9 6.1 - 8.4 g/dL [facility] Albumin 3.5 3.5 - 5.2 g/dL [facility] Calcium 8.7 8.6 - 10.3 mg/dL [facility] BUN 8 7 - 23 mg/dL [facility] Total Bilirubin 0.23 0.20 - 1.40 mg/dL [facility] Alk Phos, Total 73 35 - 129 IU/L [facility] AST (SGOT) INTERFERENCE - HEMOLYSIS 11 - 47 IU/L [facility] ALT (SGPT) 10 6 - 53 IU/L [facility] Creatinine 0.49(L) 0.60 - 1.10 mg/dL [facility] Sodium 136 135 - 145 mmol/L [facility] Potassium INTERFERENCE - HEMOLYSIS 3.3 - 5.1 mmol/L [facility] Chloride 103 95 - 107 mmol/L [facility] CO2 Content 20(L) 21 - 29 mmol/L [facility] Glucose 104(H) 64 - 99 mg/dL [facility] Comment: NONFASTING GLUCOSE RANGE = 64-199 mg/dL FASTING GLUCOSE 64 - 99 = NORMAL FASTING GLUCOSE 100 - 125 = IMPAIRED FASTING GLUCOSE FASTING GLUCOSE >=126 = PROVISIONAL DIAGNOSIS OF DIABETES eGFR >90.0 >60.0 mL/min/1 .73 m2 [facility] Comment:eGFR calculated for [place] eGFR >90.0 >60.0 mL/min/1 .73 m2 [facility] Comment:eGFR calculated for -Americans Blood specimen (specimen) (Blood, Venous) 10/27/2020 11:25 AM CDT 10/27/2020 12:21 PM CDT Narrative [facility] - 10/27/2020 2:00 PM CDT Specimen Hemolyzed Trent Severino MD LAB BLOOD ORDERABLES Final Re sult [facility] * T-SPOT.TB (10/27/2020 11:25 AM CDT) [facility] T-SPOT.TB Negative [facility] Comment: Normal Value: Negative A negative test [...] test. T-SPOT.TB Panel A Spot Count 0 [facility] T-SPOT.TB Panel B Spot Count 0 [facility] T-SPOT.TB Negative Control Passed [facility] T-SPOT.TB Positive Control Passed [facility] Comment: Test Performed at: [facility] [place], [place] ??[address] ? MARC ZAMORA MD,PHD Blood specimen (specimen) 10/27/2020 11:25 AM CDT 10/27/2020 1:39 PM CDT Trent Severino MD LAB MICROBIOLOGY - GENERAL OR DERABLES Final Result [facility] Department [place] [address] documented in this encounter Visit Diagnoses Diagnosis [...] mL/hr, Administer over 30 Minutes, Once, On Fri10/27/20 at 1215, For 1 doseIndications:Crohn's disease of small intestine with other complication (HCC) New Bag 10/27/2020 11:30 AM CDT 300 mg 510 mL/hr documented in this encounter Orders Medications Ordered That Jonathan ht Not Have Been Administered Count Last Ordered Date First Ordered Date vedolizumab (ENTYVIO) 300 mg in sodium chloride 0.9% 250 mL IVPB 1 10/27/2020 Nursing Count Last Ordered Date First Orde red Date ONCBCN NO PREMEDS NEEDED 1 10/27/2020 VITAL SIGNS PRE-INFUSION 1 10/27/2020 documented in this encounter Care Teams Wire Annealer Relationship Specialty Start Date End Date Judy Fishman NP [address] [address] PCP - General 07/31/18 documented as of this encounter
--- OUTSIDE RECORDS SUMMARY | 2024-04-11 06:16 | XMS_ITS | Encounter Summary ---
Author Organization [facility] Address [address] [place] [address] Care Team Providers Care Montessori Lead Teacher Name Role Phone Judy Fishman NP Primary Care Provider + Jessica Martínez MD Unavailable [phone] Reason for Referral * Diagnostic Imaging (Routine) - Closed Specialty Diagnoses / Procedures Referred By Mary roberson Referred To Contact Diagnoses Crohn's disease of small intestine with other complication (HCC) Supervision of high-risk , unspecified trimester resulting from assisted reproductive technology, antepartum Obesity affecting , antepartum Procedures US Ob Detail Anatomy Single Or First Gestation Judy Polanco NP [address] [facility] [id number] [place] [address] Phone: tel: fax: [facility] (All Locations) Referral ID Status Reason Start Date Expiration Date Visits Re quested Visits Authorized [id number] Closed 12/20/2020 04/13/2021 1 12 Reason for Visit * Diagnostic Imaging (Routine) - Closed Specialty Diagnoses / Procedures Referred By Mary roberson Referred To Contact Diagnoses Crohn's disease of small intestine with other complication (HCC) Supervision of high-risk , unspecified trimester resulting from assisted reproductive technology, antepartum Obesity affecting , antepartum Procedures US Ob Detail Anatomy Single Or First Gestation Judy Polanco NP [address] [facility] [id number] [place] [address] Phone: tel: fax: [facility] (All Locations) Referral ID Status Reason Start Date Expiration Date Visits Re quested Visits Authorized [id number] Closed 12/20/2020 04/13/2021 1 12 Encounter Details Date Type Department Care Team (Latest Contact Info) Description 02/14/2021 7:17 AM CDT - 02/14/2021 11:59 PM CDT Hospital Encounter [facility] - Ultrasound [address] [facility], 7th Floor, [address] [facility] [place] [address] Rose Marie Alonso MD [address] [facility] [address] [place] [address] Judy Polanco, BINU [address] [phone] [place] [address] Crohn's disease of small intestine with other complication (HCC); Supervision of high-risk , unspecified trimester; resulting from assisted reproductive technology, antepartum; Obesity affecting , antepartum Discharge Disposition: Discharge [...] on file 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 Gender Identity Not on file Sexual [...] GESTATION Schedule Routine, Read Routine (OP Routine) 02/14/2021 7:17 AM CDT Crohn's disease of small intestine with other complication (HCC) Supervision of high-risk , unspecified trimester resulting from assisted reproductive technology, antepartum Obesity affecting , antepartum documented in this encounter Results * US Ob Detail Anatomy Single Or First Gestation (02/14/2021 7:17 AM CDT) Fetus# Fetus1 VIEWPOINT Placenta Details anterior, Previa-no VIEWPOINT Estimated Weight 592 g&grams VIEWPOINT Presentation Breech VIEWPOINT Anatomical Region Laterality Modality Body N/A Ultrasound 02/14/2021 7:23 AM CDT us Judy Polanco TRACK REPAIR SUPERVISOR IMG OB US PROCEDURE S Final Result documented in this encounter Visit Diagnoses Diagnosis Crohn's disease of small intestine with other complication (HCC) Supervision of high-risk , unspecified trimester resulting from assisted reproductive technology, antepartum Obesity affecting , antepartum documented in this encounter Care Teams Montessori Lead Teacher Relationship Specialty Start Date End Date Judy Fishman NP [address] [address] PCP - General 07/31/18 Jessica Martínez MD [address] [address] Consulting Physician Obstetrics and Gynecology 11/16/20 documented as of this encounter
--- OUTSIDE RECORDS SUMMARY | 2024-04-11 06:16 | XMS_ITS | Encounter Summary ---
Author Organization [facility] Address [address] [place] [address] Phone Care Team Providers Care Diamond Powder Mixer Name Role Phone Judy Fishman RAIL TRANSIT OPERATOR Primary Care Provider + Encounter Details Date Type Department Care Team (Late st Contact Info) Description 09/14/2020 Orders Only [facility] [address] 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 Gender Identity Not on file Sexual Orientation Not on file documented as of this encounter Plan of Treatment Not on file documented as of this encounter Procedures Procedure Name Priority Date/Time Associated Diagnosis Comments COPY(IES) SENT TO: Routine 09/15/2020 1:07 PM CDT CALPROTECTIN, FECAL Routine 09/15/2020 1:07 PM CDT Crohn's disease with complication, unspecified gastrointestinal tract location (CMS/HCC) documented in this encounter Results * COPY(IES) SENT TO: (09/15/2020 1:07 PM CDT) COPY(IES) SENT TO: [facility] Comment: ?[facility] ?COPY TO ACCOUNT ?[id number] [facility] [address] ?[place] [address] 09/15/2020 1:07 PM CDT 09/15/2020 1:08 PM CDT us Trent Severino MD LAB BLOOD ORDERABLES Final Re sult [facility] * Calprotectin, fecal (09/15/2020 1:07 PM CDT) Calprotectin, Stool 11 mcg/g [facility], Comment: ?Reference Range: ?<50 ? Normal ?50-120 ??Borderline ?>120 ?Elevated Calprotectin in Crohn's disease and ulcerative colitis can be five to several thousand times above the reference population (50 mcg/g or less). Levels are usually 50 mcg/g or less in healthy patients and with irritable bowel syndrome. Repeat testing in 4-6 weeks is suggested for borderline values. Stool 09/15/2020 1:07 PM CDT 09/15/2020 1:08 PM CDT Trent Severino MD LAB BODY FLUIDS AND STOOLS OR DERABLES Final Result [facility], [address] [place] [address] documented in this encounter Visit Diagnoses Diagnosis Crohn's disease with complication, unspecified gastrointestinal tract location (HCC)- Primary documented in this encounter Care Teams Diamond Powder Mixer Relationship Specialty Start Date End Date Judy Fishman NP [address] [place] [address] PCP - General 07/31/18 documented as of this encounter
--- OUTSIDE RECORDS SUMMARY | 2024-04-11 06:16 | XMS_ITS | Encounter Summary ---
Author Organization [facility] Address [address] [place] [address] Care Team Providers Care Information Systems Auditor Name Role Phone Judy Fishman CYCLE COUNTER Primary Care Provider + Jessica Martínez MD Unavailable [phone] Encounter Details Date Type Department Care Team (Late st Contact Info) Description 01/03/2021 6:55 [place] [address] Exposure to SARS-associated coronavirus Social History Tobacco Use Types Packs/Day Years Used Date Smoking Tobacco: Former Cigarettes Q uit: 10/03/2020 Smokeless Tobacco: Never Alcohol Use Standard Drinks/Week Comments Yes 2 (1 standard drink = 0.6 oz pur e alcohol) Comments Yes Sex and Gender Information Value Date Recorded Sex Assigned at Not on file 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 Gender Identity Not on file Sexual Orientation Not on file documented as of this encounter Plan of Treatment Not on file documented as of this encounter Procedures Procedure Name Priority Date/Time Associated Diagnosis Comments COVID-19 CORONAVIRUS RNA Timed 01/03/2021 1:40 PM CDT STREPTOCOCCUS GROUP A PCR Routine 01/03/2021 1:40 PM CDT Exposure to SARS-associated coronavirus documented in this encounter Results * COVID-19 Coronavirus RNA Nasopharyngeal (01/03/2021 1:40 PM CDT) COVID-19 RNA Negative Negative [facility] Comment: Interpretive Data Synonyms for this test include: PCR and NAAT . ??Testing performed by the [facility] Molecular Infectious Disease [facility]. ??This test is performed using the Attensa SARS-CoV-2 Assay. ??This is a real-time RT-PCR test for the qualitative detection of nucleic acid from SARS-CoV-2. ??This assay has been reviewed by the FDA for Emergency Use Authorization (EUA). ??The performance characteristics have been verified by the [facility] Laboratory. ?? Additional sample types have been validated by the performing laboratory. ??All results should be interpreted in clinical context and a negative result does not rule out infection. ?? Interpretive data last revised May 18, 2020. First COVID-19 test? Unknown [facility] Employeed in healthcare? Unknown [facility] status? Unknown [facility] Group care resident? Unknown [facility] Hospitalized? Unknown [facility] Is patient in ICU? Unknown [facility] Symptomatic as defined by CDC? Unknown [facility] Nasopharyngeal 01/03/2021 1: 40 PM CDT 01/03/2021 7:13 PM CDT America Collins MD LAB MICROBIOLOGY - GEN ERAL ORDERABLES Final Result Performing Organization Address City/[facility]/ZIP Co de Phone Number [facility] Department [place] [address] * Streptococcus Group A PCR (01/03/2021 1:40 PM CDT) Strep A DNA Not Detected Not Detected [facility] Throat 01/03/2021 1:40 PM CDT 01/03/2021 6:55 PM CDT America Collins MD LAB MICROBIOLOGY - GEN ERAL ORDERABLES Final Result [facility] Department [place] [address] documented in this encounter Visit Diagnoses Diagnosis Exposure to SARS-associated coronavirus documented in this encounter Additional Health Concerns Infection Onset Date Last Indicated Resolved Time COVID: Suspected 01/03/2021 01/03/2021 01/03/2021 9:27 PM CDT documented as of this encounter Care Teams Information Systems Auditor Relationship Specialty Start Date End Date Judy Fishman NP [address] [employer] [address] [place] [id number] PCP - General 07/31/18 Jessica Martínez MD [address] [employer] [address] [place] [id number] Consulting Physician Obstetrics and Gynecology 11/16/20 documented as of this encounter
--- OUTSIDE RECORDS SUMMARY | 2024-04-11 06:16 | XMS_ITS | Encounter Summary ---
Author Organization [facility] Address [address] [place] [address] Phone Care Team Providers Care Assistant Kitchen Manager Name Role Phone Judy Fishman [facility] Primary Care Provider + Reason for Visit * Episode Based Medications (Routine) - Pending Review Specialty Diagnoses / Procedures Referred By Mary roberson Referred To Contact Diagnoses Crohn's disease of small intestine with other complication (HCC) Procedures [place] INJECTION, VEDOLIZUMAB Trent Severino MD [address] [place] [address] Phone: tel: fax: [facility] Infusion Therapy [facility] 5th [place] [address] [place] [address] Phone: tel: fax: Referral ID Status Reason Start Date Expiration Date V isits Requested Visits Authorized [id number] Pending Review 09/26/2021 09/26/2022 41 41 Encounter Details Date Type Department Care Team (Late st Contact Info) Description 09/29/2020 1:00 PM CDT Infusion [facility] Infusion Therapy [facility] 5th [place] [address] [place] [address] Crohn's disease of small intestine with other complication (CMS/HCC) (Primary Dx) Social History Tobacco Use Types Packs/Day Years Used Date Smoking Tobacco: Every Day Cigarettes Smokeless Tobacco: Never Alcohol Use Standard Drinks/Week Comments Yes 2 (1 standard drink = 0.6 oz pur e alcohol) Comments Unknown Sex and Gender Information Value Date Recorded Sex Assigned at Not on file 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 IV placed in left ac. VSS. Pre-med's declined. Tolerated well, no adverse reactions. Follow up appointment scheduled. No concerns. documented in this encounter Plan of Treatment [...] mL/hr, Administer over 30 Minutes, Once, On Fri09/29/20 at 1415, For 1 doseIndications:Crohn's disease of small intestine with other complication (HCC) New Bag 09/29/2020 1:11 PM CDT 300 mg 5 10 mL/hr documented in this encounter Orders Medications Ordered That Jonathan ht Not Have Been Administered Count Last Ordered Date First Ordered Date vedolizumab (ENTYVIO) 300 mg in sodium chloride 0.9% 250 mL IVPB 1 09/29/2020 documented in this encounter Care Teams Assistant Kitchen Manager Relationship Specialty Start Date End Date Judy Fishman NP [address] [address] PCP - General 07/31/18 documented as of this encounter
--- OUTSIDE RECORDS SUMMARY | 2024-04-11 06:16 | XMS_ITS | Encounter Summary ---
Author Organization [facility] Address [address] [place] [address] Phone Care Team Providers Care Tower Attendant Name Role Phone Judy Fishman NP Primary Care Provider + Jessica Martínez MD Unavailable [phone] Reason for Visit * Episode Based Medications (Routine) - Pending Review Specialty Diagnoses / Procedures Referred By Contac t Referred To Contact Diagnoses Crohn's disease of small intestine with other complication (HCC) Procedures TN INJECTION, VEDOLIZUMAB Trent Severino MD [address] [place] [address] Phone: tel: fax: [facility] Infusion Therapy [facility] Advanced Medicine 5th [place] [address] [place] [address] Phone: tel: fax: Referral ID Status Reason Start Date Expiration Date V isits Requested Visits Authorized [id number] Pending Review 09/26/2021 09/26/2022 41 41 Encounter Details Date Type Department Care Team (Late st Contact Info) Description 01/19/2021 11:30 AM CDT Infusion 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 VSS, IV placed in LAC. Labs drawn post infusion. Premedications declined. Entyvio administered per protocol, patient tolerated infusion. Follow up in 4 weeks. Ambulatory at discharge, no concerns. documented in this encounter Plan of Treatment Not on file documented as of this encounter Procedures Procedure Name Priority Date/Time Associated Diagnosis Comments DIFFERENTIAL AUTO Routine 01/19/2021 12: 10 PM CDT Crohn's disease of small intestine with other complication (HCC) CBC WITH AUTO DIFFERENTIAL Routine 01/19/2021 12:10 PM CDT Crohn's disease of small intestine with other complication (HCC) documented in this encounter Results * (ABNORMAL) Differential, auto (01/19/2021 12:10 PM CDT) Neutrophil abs 8.4(H) 1.7 - 6.5 K/cumm [facility] Imm gran abs 0.1 0.0 - 0.1 K/cumm [facility] Lymphocyte abs 2.6 0.8 - 3.3 K/cumm [facility] Monocyte abs 0.6 0.2 - 0.8 K/cumm [facility] Eosinophil abs 0.2 0.0 - 0.5 K/cumm [facility] Basophil abs 0.0 0.0 - 0.1 K/cumm [facility] Neutrophil pct 70.7 % [facility] Comment: Interpretive Data Percent cell count reference ranges are not reported, since discordance with absolute values may lead to misinterpretation of CBC data. Current Interpretive Data was last revised on 2017. Imm gran pct 0.4 % [facility] Comment: Interpretive Data Percent cell count reference ranges are not reported, since discordance with absolute values may lead to misinterpretation of CBC data. Current Interpretive Data was last revised on 2017. Lymphocyte pct 22.1 % [facility] Comment: Interpretive Data Percent cell count reference ranges are not reported, since discordance with absolute values may lead to misinterpretation of CBC data. Current Interpretive Data was last revised on 2017. Monocyte pct 4.8 % [facility] Comment: Interpretive Data Percent cell count reference ranges are not reported, since discordance with absolute values may lead to misinterpretation of CBC data. Current Interpretive Data was last revised on 2017. Eosinophil pct 1.7 % [facility] Comment: Interpretive Data Percent cell count reference ranges are not reported, since discordance with absolute values may lead to misinterpretation of CBC data. Current Interpretive Data was last revised on 2017. Basophil pct 0.3 % [facility] Comment: Interpretive Data Percent cell count reference ranges are not reported, since discordance with absolute values may lead to misinterpretation of CBC data. Current Interpretive Data was last revised on 2017. Blood 01/19/2021 12:1 0 PM CDT 01/19/2021 2:40 PM CDT Trent Severino MD LAB BLOOD ORDERABLES Final Re sult [facility] Department [place] [address] * (ABNORMAL) CBC with auto differential (01/19/2021 12:10 PM CDT) WBC 11.8(H) 3.8 - 9.9 K/cumm [facility] Hgb 10.1(L) 11.9 - 15.5 g/dL [facility] Hct 30.8(L) 35.6 - 45.5 % [facility] Plt 305 150 - 400 K/cumm [facility] MPV 11.0 9.1 - 12.3 fL [facility] RBC 3.66(L) 3.90 - 5.20 M/cumm [facility] MCV 84.2 81.3 - 96.4 fL [facility] MCH 27.6 27.1 - 33.3 pg [facility] MCHC 32.8 32.3 - 35.7 g/dL [facility] RDW CV 14.0 11.1 - 14.9 % [facility] RDW SD 43.3 35.7 - 48.1 fL [facility] NRBC abs 0.00 0.00 - 0.01 K/cumm [facility] Blood 01/19/2021 12:1 0 PM CDT 01/19/2021 2:40 PM CDT Trent Severino MD LAB BLOOD ORDERABLES Final Re sult [facility] Department [place] [address] documented in this encounter Visit Diagnoses Diagnosis [...] mL/hr, Administer over 30 Minutes, Once, On Fri01/19/21 at 1215, For 1 doseIndications:Crohn's disease of small intestine with other complication (HCC) New Bag 01/19/2021 11:35 AM CDT 300 mg 510 mL/hr documented in this encounter Orders Medications Ordered That Jonathan ht Not Have Been Administered Count Last Ordered Date First Ordered Date sodium chloride 0.9% flush 10 mL 1 01/20/20 21 vedolizumab (ENTYVIO) 300 mg in sodium chloride 0.9% 250 mL IVPB 1 01/19/2021 documented in this encounter Care Teams Tower Attendant Relationship Specialty Start Date End Date Judy Fishman NP [address] [place] [address] PCP - General 07/31/18 Jessica Martínez MD [address] [address] Consulting Physician Obstetrics and Gynecology 11/16/20 documented as of this encounter
--- OUTSIDE RECORDS SUMMARY | 2024-04-11 06:16 | XMS_ITS | Encounter Summary ---
Author Organization [facility] Address [address] [place] [address] Care Team Providers Care Quality Specialist Name Role Phone Judy Fishman BREADMAN Primary Care Provider + Jessica Martínez MD Unavailable [phone] Reason for Referral * Diagnostic Imaging (Routine) - Closed Specialty Diagnoses / Procedures Referred By Contac t Referred To Contact Diagnoses Crohn's disease of small intestine with other complication (HCC) Procedures Ob Limited Clayton Pantoja MD Phone: tel: fax: [facility] (All Locations) Referral ID Status Reason Start Date Expiration Date Visits Re quested Visits Authorized [id number] Closed 11/01/2020 04/13/2021 1 2 Reason for Visit * Diagnostic Imaging (Routine) - Closed Specialty Diagnoses / Procedures Referred By Contflora roberson Referred To Contact Diagnoses Crohn's disease of small intestine with other complication (HCC) Procedures Ob Limited Clayton Pantoja MD Phone: tel: fax: [facility] (All Locations) Referral ID Status Reason Start Date Expiration Date Visits Re quested Visits Authorized [id number] Closed 11/01/2020 04/13/2021 1 2 Encounter Details Date Type Department Care Team (Latest Contact Info) Description 11/24/2020 8:43 AM CDT - 11/24/2020 11:59 PM CDT Hospital Encounter [facility] Ultrasound [address] [facility], 7th Floor, [address] [place] [address] Clayton Pantoja MD [address] [place] [phone] [place] [address] Crohn's disease of small intestine with other [...] on file 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 Gender Identity Not on file Sexual Orientation Not on file documented as of this encounter Medications at Time of Discharge aspirin 81 mg enteric coated tablet Take [...] LIMITED Schedule Routine, Read Routine (OP Routine) 11/24/2020 8:43 AM CDT Crohn's disease of small intestine with other complication (HCC) documented in this encounter Results * US Ob Limited (11/24/2020 8:43 AM CDT) Anatomical Region Laterality Modality Abdomen N/A Ultrasound 11/24/2020 8:50 AM CDT Narrative 11/24/2020 10:53 AM CDT There are no Discrete Measurement Components for this test result - Please see .pdf Procedure Note Radha Clemente MD - 11/24/2020 There are no Discrete Measurement Components for this test result - Pleasesee .pdf us Clayton Pantoja MD IMG OB US PROCEDURES F inal Result documented in this encounter Visit Diagnoses Diagnosis Crohn's disease of small intestine with other complication (HCC) documented in this encounter Care Teams Quality Specialist Relationship Specialty Start Date End Date Judy Fishman NP [address] [address] PCP - General 07/31/18 Jessica Martínez MD [address] [address] Consulting Physician Obstetrics and Gynecology 11/16/20 documented as of this encounter
--- OUTSIDE RECORDS SUMMARY | 2024-04-11 06:16 | XMS_ITS | Encounter Summary ---
Author Organization [facility] Address [address] [place] [address] Phone Care Team Providers Care Substation Superintendent Name Role Phone Judy Fishman NP Primary Care Provider + Jessica Martínez MD Unavailable [phone] Encounter Details Date Type Department Care Team (Late st Contact Info) Description 02/14/2021 Telephone [facility] Obstetrics and Gynecology [address] [place] [address] Arianna Campos Social History Tobacco Use Types Packs/Day Years Used Date Smoking Tobacco: Former Cigarettes Q uit: 10/03/2020 Smokeless Tobacco: Never Alcohol Use Standard Drinks/Week Comments Yes 2 (1 standard drink = 0.6 oz pur e alcohol) Comments Yes Sex and Gender Information Value Date Recorded Sex Assigned at Not on file Legal Sex Female 7:54 PM DEPARTMENT HEAD Gender Identity Not on file Sexual Orientation Not on file documented as of this encounter Miscellaneous Notes * Telephone Encounter - Arianna Campos - 02/14/2021 12:34 PM CDT Thank you * Telephone Encounter - Pauline Campos RN - 02/14/2021 12:17 PM CDT Thank you Betsey. I will reach out to the patient and give the information to schedule. Pauline * Telephone Encounter - Arianna Campos - 02/14/2021 11:03 AM CDT Automated prior auth confirmation: [id number] for the following CPT Codes: 41106 [id number] Codes do not require authorization for echo. documented in this encounter Plan of Treatment Not on file documented as of this encounter Visit Diagnoses Not on filedocumented in this encounter Care Teams Substation Superintendent Relationship Specialty Start Date End Date Judy Fishman NP [address] [address] PCP - General 07/31/18 Jessica Martínez MD [address] [address] Consulting Physician Obstetrics and Gynecology 11/16/20 documented as of this encounter
--- OUTSIDE RECORDS SUMMARY | 2024-04-11 06:16 | XMS_ITS | Encounter Summary ---
Author Organization [facility] Address [address] [place] [address] Phone Care Team Providers Care Supervisor Blood Donor Recruiters Name Role Phone Judy Fishman NP Primary Care Provider + Jessica Martínez MD Unavailable [phone] Reason for Referral * Diagnostic Imaging (Routine) - Closed Specialty Diagnoses / Procedures Referred By Mary roberson Referred To Contact Diagnoses Crohn's disease of small intestine with other complication (HCC) Supervision of high-risk , unspecified trimester resulting from assisted reproductive technology, antepartum Obesity affecting , antepartum Procedures US Ob Detail Anatomy Single Or First Gestation Judy Polanco NP [address] [facility] [phone] [place] [address] Phone: tel: fax: [facility] (All Locations) Referral ID Status Reason Start Date Expiration Date Visits Re quested Visits Authorized [id number] Closed 12/20/2020 04/13/2021 1 12 Reason for Visit * Reason Comments High Risk Gestation Encounter Details Date Type Department Care Team (Late st Contact Info) Description 12/20/2020 8:45 AM CDT Office Visit [facility] [address] [facility] 7th Floor [address] [place] [address] Judy Polanco NP [address] [facility] [phone] [place] [address] Crohn's disease of small intestine with other complication (HCC) (Primary Dx); Supervision of high-risk , unspecified trimester; resulting from assisted reproductive technology, antepartum; Prediabetes; Obesity affecting , antepartum Social History Tobacco Use Types Packs/Day Years Used Date Smoking Tobacco: Former Cigarettes Q uit: 10/03/2020 Smokeless Tobacco: Never Alcohol Use Standard Drinks/Week Comments Yes 2 (1 standard drink = 0.6 oz pur e alcohol) Comments Yes Sex and Gender Information Value Date Recorded Sex Assigned at Not on file 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 Gender Identity Not on file Sexual Orientation Not on file documented as of this encounter Last Filed Vital Signs Vital Sign Reading Time Taken Comments Blood Pressure 124/83 12/20/2020 8:22 AM CDT Pulse 107 12/20/2020 8:22 AM CDT Temperature - - Respiratory Rate - - Oxygen Saturation 98% 12/20/2020 8:22 AM CDT Inhaled Oxygen Concentration - - Weight 112.8 kg (248 lb 9.6 oz) 12/20/2020 8:22 AM CDT Height 162.6 cm (5' 4 ) 12/20/2020 8:22 AM CDT Body Mass Index 42.67 12/20/2020 8:22 AM CDT documented in this encounter Progress Notes * Judy Polanco, BINU - 12/20/2020 8:30 AM CDT [facility] Return Visit 12/20/2020 Liliana Mancilla is a 30 y.o. at 13w6d who is here for a return OB visit. Her is complicated by Crohn's disease, IVF , BMI 42, and history of prediabetes. Subjective: Feels well today. She denies cramping, loss of fluid, or vaginal bleeding. Denies symptoms of flare. Had a visit with her GI doctor yesterday. Objective: BP 124/83 Pulse 107 Ht 162.6 cm (5' 4 ) Wt 248 lb 9.6 oz (112.8 kg) LMP 09/15/2020 (Exact Date) SpO2 98% BMI 42.67 kg/m?? General: NAD Abdomen: Soft, gravid, NT, FHR + Extremities: WWP, no edema Ultrasound: 12/20/2020 see finalized US report Assessment/Plan: Liliana Mancilla is a 30 y.o. at 13w6d with a complicated by the following: Problem List JONNATHAN 06/21/21 Crohn's disease of small intestine with other complication (HCC) - Primary Overview Diagnosed with Crohn's disease in 2019 and has been on Entyvio (vedolizumab) since that time without any additional flares. She gets her Entyvio injections q4 weeks. Previously counseled Recommendations: - 1st trimester labs: B12 [328] , ferritin [125], folate [19.8], Vit D[39] - Anatomy US and MFM appointment at 19 weeks - Serial growth US q4 weeks starting at 24-26 weeks - testing starting at 32 weeks - Delivery at 39 weeks unless otherwise indicated--plan given no history of perianal disease. Would recommend CS in the setting of perianal disease. Relevant Orders US Ob Detail Anatomy Single Or First Gestation Prediabetes Overview History of prediabetes with most recent A1c 5.6% (02/2020). [x] early 1hr GTT- wnl [] Gtt at 24-28 weeks Obesity affecting , antepartum Overview Previously counseled Rrecommend a specialized anatomic survey, serial growth assessment and testing. Aspirin 81mg should be started after 12 weeks Relevant Orders US Ob Detail Anatomy Single Or First Gestation resulting from assisted reproductive technology, antepartum Overview Previously counseled Relevant Orders US Ob Detail Anatomy Single Or First Gestation Supervision of high-risk , unspecified trimester Overview [x] Full MFM Care; [] Red Team [] Blue Team Referring Provider: JESSICA Severino [phone] [facility] Jessica Mauricio: [phone]; [x] Dating Criteria: Embryo Transfer 10/03/20 with JONNATHAN 06/21/21 [x] Labs: Lab Results Component Value Date ABORH B Positive 11/24/2020 IDCOOMB Negative 11/24/2020 YOB25OKMGPSC Nonreactive 11/24/2020 LABRPR Nonreactive 11/24/2020 RUBELIGG Reactive 11/24/2020 HEPBSAG Nonreactive 11/24/2020 HGB 11.1 (L) 11/24/2020 HCT 35.4 (L) 11/24/2020 LABPLAT 360 11/24/2020 [] GC/CT- sent today [x] Genetic Screening: [place] Low Risk [x] Early 1hr GTT (if indicated) - 12/08: 133 [x] UCx: Negative [x] Pap: 01/2019: negative [x] LD ASA (if indicated) starting at 12 weeks: indicated [] EPDS [ ]; PNBHS referral (if indicated) 2nd Tri Labs: [] Anatomy ultrasound: scheduled [] CBC/1hr gtt at 24-28wks: [] Flu Shot (Dec-Mar): [] Tdap (27-36wks): [] COVID Vaccine: s/p dose #1, dose #2 scheduled 3rd Tri Labs: [] CBC/HIV/RPR: [] GBS: [] COVID testing: Counselling [] MOD: [x] Place of delivery: [facility] [] MOC: [] Method of feeding: [] Patient Insurance Clerk: [] PP Depression Discussed: Relevant Orders US Ob Detail Anatomy Single Or First Gestation Specialty Infusion Treatment 2 Crohn's disease of small intestine with other complication (HCC) - Primary Overview Diagnosed with Crohn's disease in 2019 and has been on Entyvio (vedolizumab) since that time without any additional flares. She gets her Entyvio injections q4 weeks. Previously counseled Recommendations: - 1st trimester labs: B12 [328] , ferritin [125], folate [19.8], Vit D[39] - Anatomy US and MFM appointment at 19 weeks - Serial growth US q4 weeks starting at 24-26 weeks - testing starting at 32 weeks - Delivery at 39 weeks unless otherwise indicated--plan given no history of perianal disease. Would recommend CS in the setting of perianal disease. Relevant Orders US Ob Detail Anatomy Single Or First Gestation Precautions reviewed. DIEUDONNE Raphael documented in this encounter Miscellaneous Notes * Addendum Note - Simokaitis, Rebeka, FINAL INSPECTOR PAPER - 12/20/2020 8:45 AM CDTAddended by: REBEKA PUTNAM on: 12/20/2020 09:15 AM Modules accepted: Orders documented in this encounter Plan of Treatment Not on file documented as of this encounter Procedures Procedure Name Priority Date/Time Associated Diagnosis Comments N. GONORRHOEAE/C. TRACHOMATIS AMPLIFICATION Routine 12/20/2020 9:15 AM CDT Supervision of high-risk , unspecified trimester HARMONY TEST Routine 12/19/2020 documented in this encounter Results * US Ob Detail Anatomy Single Or First Gestation (02/14/2021 7:17 AM CDT) Fetus# Fetus1 VIEWPOINT Placenta Details anterior, Previa-no VIEWPOINT Estimated Weight 592 g&grams VIEWPOINT Presentation Breech VIEWPOINT Anatomical Region Laterality Modality Body N/A Ultrasound 02/14/2021 7:2 3 AM CDT us Judy Polanco NP IMG OB US PROCEDURE S Final Result * N. gonorrhoeae/C. trachomatis Amplification Urine (12/20/2020 9:15 AM CDT) C. trachomatis RNA NOT DETECTED NOT DETECTED [facility] N. gonorrhoeae RNA NOT DETECTED NOT DETECTED [facility] Comment [facility] Comment: The analytical performance characteristics of this assay, when used to test SurePath(TM) specimens have been determined by [employer]. The modifications have not been cleared or approved by the FDA. This assay has been validated pursuant to the CLIA regulations and is used for clinical purposes. For additional information, please refer to https://education.Chumby/faq/EAE124 (This link is being provided for information/ educational purposes only.) Urine (None) 12/20/2020 9:15 AM CDT 12/21/2020 4:12 AM CDT Judy Polanco NP LAB MICROBIOLOGY - GENERAL ORDERABLES Final Result [facility] [address] [place] [address] * [place] Test (12/19/2020) Eda Hernandez MD LAB BLOOD ORDERABLES Final Result EXTERNAL LAB documented in this encounter Visit Diagnoses Diagnosis Crohn's disease of small intestine with other complication (HCC)- Primary Supervision of high-risk , unspecified trimester resulting from assisted reproductive technology, antepartum Prediabetes Other abnormal glucose Obesity affecting , antepartum documented in this encounter Care Teams Supervisor Blood Donor Recruiters Relationship Specialty Start Date End Date Judy Fishman NP [address] [address] PCP - General 07/31/18 Jessica Martínez MD [address] [address] Consulting Physician Obstetrics and Gynecology 11/16/20 documented as of this encounter
--- OUTSIDE RECORDS SUMMARY | 2024-04-11 06:16 | XMS_ITS | Encounter Summary ---
Author Organization [facility] Address [address] [place] [address] Phone Care Team Providers Care Packing Machine Tender Name Role Phone Judy Fishman REPAIR TABLE OPERATOR Primary Care Provider + Encounter Details Date Type Department Care Team (Late st Contact Info) Description 11/01/2020 Telephone [facility] Obstetrics and Gynecology [address] [place] [address] Arianna Campos Social History Tobacco Use Types Packs/Day Years Used Date Smoking Tobacco: Every Day Cigarettes Smokeless Tobacco: Never Alcohol Use Standard Drinks/Week Comments Yes 2 (1 standard drink = 0.6 oz pur e alcohol) Comments Unknown Sex and Gender Information Value Date Recorded Sex Assigned at Not on file Legal 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 Need LMP or JONNATHAN. Check with patient to see if she had confirmed and obtain records. 11/01-message left to schedule. Needs Viability US and OBN-need lmp or jonnathan obn dx: Crohn's Disease lmp or jonnathan recs in [facility] documented in this encounter Plan of Treatment Not on file documented as of this encounter Visit Diagnoses Not on filedocumented in this encounter Care Teams Packing Machine Tender Relationship Specialty Start Date End Date Judy Fishman, BINU [address] [address] PCP - General 07/31/18 documented as of this encounter
--- OUTSIDE RECORDS SUMMARY | 2024-04-11 06:16 | XMS_ITS | Encounter Summary ---
Author Organization [facility] Healthcare Address [address] [place] [address] Care Team Providers Care Spinning Machine Tender Name Role Phone Judy Fishman BACTERIOLOGIST FISHERY Primary Care Provider + Jessica Martínez MD Unavailable [phone] Encounter Details Date Type Department Care Team (Late st Contact Info) Description 01/03/2021 5:40 PM CDT Lab [place] [id number] Crohn's disease of small intestine with other complication (HCC); Exposure to SARS-associated coronavirus Social History Tobacco Use Types Packs/Day Years Used Date Smoking Tobacco: Former Cigarettes Q uit: 10/03/2020 Smokeless Tobacco: Never Alcohol Use Standard Drinks/Week Comments Yes 2 (1 standard drink = 0.6 oz pur e alcohol) Comments Yes Sex and Gender Information Value Date Recorded Sex Assigned at Not on file Legal 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 Female 7:54 PM DIRECTOR OF ROOMS Gender Identity Not on file Sexual Orientation Not on file documented as of this encounter Plan of Treatment Not on file documented as of this encounter Procedures Procedure Name Priority Date/Time Associated Diagnosis Comments INFLUENZA A/B AND RSV PCR Routine 01/03/2021 1:40 PM CDT Exposure to SARS-associated coronavirus documented in this encounter Results * Influenza A/B and RSV PCR Nasopharyngeal (01/03/2021 1:40 PM CDT) Influenza A RNA Negative Negative [facility] Influenza B RNA Negative Negative [facility] RSV RNA Negative Negative [facility] Comment: Interpretive Data Testing performed by the [facility] Molecular Infectious Disease Laboratory. ??This test is performed using the JAQUELINE Influenza A/B and RSV Assay. ??This is a real-time RT-PCR test for the qualitative detection of nucleic acid from Influenza A, Influenza B, and RSV. ??This assay has been cleared by the FDA for routine clinical use. ??The performance characteristics have been verified by the [facility] Laboratory. ?? Results should be interpreted in combination with clinical context and a negative result does not rule out infection. Interpretive data last revised 2020. Nasopharyngeal 01/03/2021 1: 40 PM CDT 01/03/2021 7:13 PM CDT America Collins MD LAB MICROBIOLOGY - GEN ERAL ORDERABLES Final Result [facility] Department [place] [address] documented in this encounter Visit Diagnoses Diagnosis Crohn's disease of small intestine with other complication (HCC) Exposure to SARS-associated coronavirus documented in this encounter Additional Health Concerns Infection Onset Date Last Indicated Resolved Time COVID: Suspected 01/03/2021 01/03/2021 01/03/2021 9:27 PM CDT documented as of this encounter Care Teams Spinning Machine Tender Relationship Specialty Start Date End Date Judy Fishman NP [address] [address] PCP - General 07/31/18 Jessica Martínez MD [address] [address] Consulting Physician Obstetrics and Gynecology 11/16/20 documented as of this encounter
--- OUTSIDE RECORDS SUMMARY | 2024-04-11 06:16 | XMS_ITS | Encounter Summary ---
Author Organization [facility] Healthcare Address [address] [place] [address] Care Team Providers Care Boring Machine Operator Double End Name Role Phone Jduy Fishman REFRIGERATION INSTALLER Primary Care Provider + Jessica Martínez MD Unavailable [phone] Encounter Details Date Type Department Care Team (Late st Contact Info) Description 01/06/2021 Telephone [facility] [address] [place] [address] Eda Monte MD [address] [facility] [phone] [place] [address] Social History Tobacco Use Types Packs/Day Years Used Date Smoking Tobacco: Former Cigarettes Q uit: 10/03/2020 Smokeless Tobacco: Never Alcohol Use Standard Drinks/Week Comments Yes 2 (1 standard drink = 0.6 oz pur e alcohol) Comments Yes Sex and Gender Information Value Date Recorded Sex Assigned at Not on file 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 States main symptoms are sinus pain/pressure/congestion, cough, ear pressure. Currently on: psudephedrine, Zyrtex, benadryl. Recommended DC'ing pseudephedrine. Can continue Zyrtec and benadryl. Recommended trial of Mucinex DM (guafenesin and dextromethorphan) or Mucinex Fast Max (acetaminophen, dextromethorphan, guafenesin). Come to [facility] if fevers, inability to tolerate PO, shortness of breath Endorses understanding. All questions answered. Eda Monte MD Maternal- Medicine Fellow Department of Obstetrics and Gynecology Pager: [phone] documented in this encounter Plan of Treatment Not on file documented as of this encounter Visit Diagnoses Not on filedocumented in this encounter Care Teams Boring Machine Operator Double End Relationship Specialty Start Date End Date Judy Fishman NP [address] [id number] PCP - General 07/31/18 Jessica Martínez MD [address] [place] [id number] Consulting Physician Obstetrics and Gynecology 11/16/20 documented as of this encounter
--- OUTSIDE RECORDS SUMMARY | 2024-04-11 06:16 | XMS_ITS | Encounter Summary ---
Author Organization [facility] Address [address] [place] [address] Phone Care Team Providers Care Inside Solar Sales Consultant Name Role Phone Judy Fishman CHIEF WHEELAGE CLERK Primary Care Provider + Encounter Details Date Type Department Care Team (Late st Contact Info) Description 10/04/2020 Telephone [facility] Gastroenterology [address] [place] [address] 8th [place] [address] [place] [phone] Susan Chawla RMA Social History Tobacco Use Types Packs/Day Years Used Date Smoking Tobacco: Every Day Cigarettes Smokeless Tobacco: Never Alcohol Use Standard Drinks/Week Comments Yes 2 (1 standard drink = 0.6 oz pur e alcohol) Comments Unknown Sex and Gender Information Value Date Recorded Sex Assigned at Not on file Legal Sex Female 7: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 documented in this encounter Plan of Treatment Not on file documented as of this encounter Visit Diagnoses Not on filedocumented in this encounter Care Teams Inside Solar Sales Consultant Relationship Specialty Start Date End Date Judy Fishman NP [address] [address] [address] PCP - General 07/31/18 documented as of this encounter
--- OUTSIDE RECORDS SUMMARY | 2024-04-11 06:16 | XMS_ITS | Encounter Summary ---
Author Organization [facility] Address [address] [place] [address] Phone Care Team Providers Care Sr. Manager Corporate Communications Name Role Phone Judy Fishman ROTARY FURNACE OPERATOR Primary Care Provider + Encounter Details Date Type Department Care Team (Late st Contact Info) Description 09/13/2020 Orders Only [facility] Gastroenterology [address] [facility] 8th [place] [address] [place] [address] Cammy, Susan, RMA Social History Tobacco Use Types Packs/Day Years Used Date Smoking Tobacco: Every Day Cigarettes Smokeless Tobacco: Never Alcohol Use Standard Drinks/Week Comments Yes 2 (1 standard drink = 0.6 oz pur e alcohol) Comments Unknown Sex and Gender Information Value Date Recorded Sex Assigned at Not on file Legal 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 Manager Corporate Communications Relationship Specialty Start Date End Date Judy Fishman, BINU [address] [facility] [address] [place] [address] PCP - General 07/31/18 documented as of this encounter
--- OUTSIDE RECORDS SUMMARY | 2024-04-11 06:16 | XMS_ITS | Encounter Summary ---
Author Organization [facility] Address [address] [place] [address] Care Team Providers Care Pocket Creaser Name Role Phone Simone Fishmanelle Brittani BUNDLE CLERK Primary Care Provider + Encounter Details Date Type Department Care Team (Late st Contact Info) Description 10/27/2020 1:40 PM CDT Lab [address] [address] Crohn's disease of small intestine with other complication (HCC) Social History Tobacco Use Types Packs/Day Years Used Date Smoking Tobacco: Every Day Cigarettes Smokeless Tobacco: Never Alcohol Use Standard Drinks/Week Comments Yes 2 (1 standard drink = 0.6 oz pur e alcohol) Comments Unknown Sex and Gender Information Value Date Recorded Sex Assigned at Not on file 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 Gender Identity Not on file Sexual Orientation Not on file documented as of this encounter Plan of Treatment Not on file documented as of this encounter Procedures Procedure Name Priority Date/Time Associated Diagnosis Comments T-SPOT.TB Routine 10/27/2020 11:25 AM CDT Crohn's disease of small intestine with other complication (HCC) CRP (ACUTE PHASE) Routine 10/27/2020 11: 25 AM CDT Crohn's disease of small intestine with other complication (HCC) documented in this encounter Results * (ABNORMAL) CRP (acute phase) (10/27/2020 11:25 AM CDT) CRP 53.5(H) <=10.0 mg/L [facility] Blood specimen (specimen) 10/27/2020 11:25 AM CDT 10/27/2020 1:39 PM CDT Trent Severino MD LAB BLOOD ORDERABLES Final Re sult [facility] Department [place] [address] * T-SPOT.TB (10/27/2020 11:25 AM CDT) Pathologist [facility] T-SPOT.TB Negative SeeBelow [facility] Comment: Normal Value: Negative A negative test [...] test. T-SPOT.TB Panel A Spot Count 0 [facility] T-SPOT.TB Panel B Spot Count 0 [facility] T-SPOT.TB Negative Control Passed [facility] T-SPOT.TB Positive Control Passed [facility] Comment: Test Performed at: [facility], [employer] [address] [place] [address] ??[id number] ? MARC ZAMORA MD,PHD Blood specimen (specimen) 10/27/2020 11:25 AM CDT 10/27/2020 1:39 PM CDT Trent Severino MD LAB MICROBIOLOGY - GENERAL OR DERABLES Final Result [facility] Department [place] [address] documented in this encounter Visit Diagnoses Diagnosis Crohn's disease of small intestine with other complication (HCC) documented in this encounter Care Teams Pocket Creaser Relationship Specialty Start Date End Date Judy Fishman NP [address] [address] PCP - General 07/31/18 documented as of this encounter
--- OUTSIDE RECORDS SUMMARY | 2024-04-11 06:16 | XMS_ITS | Encounter Summary ---
Author Organization 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 Gender Identity Not on file Sexual Orientation Not on file documented as of this encounter Plan of Treatment Not on file documented as of this encounter Procedures Procedure Name Priority Date/Time Associated Diagnosis Comments GTT 50GM 1HR GESTATIONAL SCREEN Routine 12/08/2020 12:53 PM CDT High-risk in first trimester Supervision of high-risk , unspecified trimester Crohn's disease of small intestine with other complication (HCC) documented in this encounter Results * Glucose tolerance testing 50 gram gestational screen (12/08/2020 12:53 PM CDT) GTT 50g gest screen 133 <=140 mg/dL [facility] Comment: Interpretive Data Used for suspected gestational [...] data was last revised on 2020. Blood 12/08/2020 12:5 3 PM CDT 12/08/2020 1:35 PM CDT us Sharon Barry MD LAB BLOOD ORDERAB LES Final Result [facility] Department [place] [address] documented in this encounter Visit Diagnoses Diagnosis High-risk in first trimester Supervision of high-risk , unspecified trimester Crohn's disease of small intestine with other complication (HCC) documented in this encounter Care Teams Oral Hygienist Relationship Specialty Start Date End Date Judy Fishman NP [address] [address] PCP - General 07/31/18 Jessica Martínez MD [address] [address] Consulting Physician Obstetrics and Gynecology 11/16/20 documented as of this encounter
--- OUTSIDE RECORDS SUMMARY | 2024-04-11 06:16 | XMS_ITS | Encounter Summary ---
Author Organization [facility] Address [address] [place] [address] Phone Care Team Providers Care Rotor Casting Machine Setup Operator Name Role Phone Judy Fishman LATHE SANDER Primary Care Provider + Reason for Referral * Consultation (Routine) - Closed Specialty Diagnoses / Procedures Referred By Mary roberson Referred To Contact Maternal and Medicine Diagnoses High-risk in first trimester Trent Severino MD [address] [place] [address] Phone: tel: fax: [facility] (All Locations) Referral ID Status Reason Start Date Expiration Date V isits Requested Visits Authorized [id number] Closed Specialty Services Required 11/01/2020 04/13/2021 1 36 Question Answer Please select the performing region: [facility] (All Locations) [[id number]] # of visits: 1 Comments Trent Severino would like to refer this patient to the MFM team for OB care. She is currently 6 weeks 6 days through IVF and has a history of Crohn's Disease. She will be released from her IVF team on 11/14 with the need to f/u with MFM 1-3 weeks after 11/14. Encounter Details Date Type Department Care Team (Late st Contact Info) Description 11/01/2020 Orders Only [facility] Gastroenterology [facility] 8th [place] [address] [place] [address] Trent Seevrino MD [address] [place] [address] High-risk in first trimester (Primary Dx) Social History Tobacco Use Types Packs/Day Years Used Date Smoking Tobacco: Every Day Cigarettes Smokeless Tobacco: Never Alcohol Use Standard Drinks/Week Comments Yes 2 (1 standard drink = 0.6 oz pur e alcohol) Comments Unknown Sex and Gender Information Value Date Recorded Sex Assigned at Not on file 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 Gender Identity Not on file Sexual Orientation Not on file documented as of this encounter Plan of Treatment Scheduled Referrals Name Type Priority Associated Diagnoses Order Schedule Ambulatory referral to Maternal and Medicine Outpatient Referral Routine High-risk in first trimester Expected: 12/02/2020 (Approximate), Expires: 11/01/2021 documented as of this encounter Visit Diagnoses Diagnosis High-risk in first trimester- Primary documented in this encounter Care Teams Rotor Casting Machine Setup Operator Relationship Specialty Start Date End Date Judy Fishman NP [address] [address] PCP - General 07/31/18 documented as of this encounter
--- OUTSIDE RECORDS SUMMARY | 2024-04-11 06:16 | XMS_ITS | Encounter Summary ---
Author Organization [facility] Healthcare Address [address] [place] [address] Care Team Providers Care Rumper Name Role Phone Judy Fishman QUALITY CONTROL SPECIALIST Primary Care Provider + Jessica Martínez MD Unavailable [phone] Encounter Details Date Type Department Care Team (Late st Contact Info) Description 12/08/2020 12:55 PM CDT Lab [facility] [address] [place] [address] [place] [address] Social History Tobacco Use Types Packs/Day Years Used Date Smoking Tobacco: Former Cigarettes Q uit: 10/03/2020 Smokeless Tobacco: Never Alcohol Use Standard Drinks/Week Comments Yes 2 (1 standard drink = 0.6 oz pur e alcohol) Comments Yes Sex and Gender Information Value Date Recorded Sex Assigned at Not on file 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
--- OUTSIDE RECORDS SUMMARY | 2024-04-11 06:16 | XMS_ITS | Encounter Summary ---
Author Organization [facility] Healthcare Address [address] [place] [address] Care Team Providers Care Promotions Intern Name Role Phone Judy Fishman JAILER Primary Care Provider + Jessica Martínez MD Unavailable [phone] Encounter Details Date Type Department Care Team (Late st Contact Info) Description 01/19/2021 2:35 PM CDT Lab [address] [address] Crohn's disease of small intestine [...] on file Legal Sex Female 7:54 PM JOIST SETTER Gender Identity Not on file Sexual Orientation Not on file documented as of this encounter Plan of Treatment Not on file documented as of this encounter Procedures Procedure Name Priority Date/Time Associated Diagnosis Comments CRP (ACUTE PHASE) Routine 01/19/2021 12: 10 PM CDT Crohn's disease of small intestine with other complication (HCC) documented in this encounter Results * (ABNORMAL) CRP (acute phase) (01/19/2021 12:10 PM CDT) CRP 34.3(H) <=10.0 mg/L [facility] Blood 01/19/2021 12:1 0 PM CDT 01/19/2021 2:40 PM CDT Trent Severino MD LAB BLOOD ORDERABLES Final Re sult [facility] [place] [address] documented in this encounter Visit Diagnoses Diagnosis Crohn's disease of small intestine with other complication (HCC) documented in this encounter Orders Lab Orders Without Results Count Last Ordered D ate First Ordered Date CBC WITH AUTO DIFFERENTIAL 1 01/19/2021 COMPREHENSIVE METABOLIC PANEL 1 01/19/2021 documented in this encounter Care Teams Promotions Intern Relationship Specialty Start Date End Date Judy Fishman NP [address] [address] PCP - General 07/31/18 Jessica Martínez MD [address] [place] [address] Consulting Physician Obstetrics and Gynecology 11/16/20 documented as of this encounter
--- OUTSIDE RECORDS SUMMARY | 2024-04-11 06:16 | XMS_ITS | Encounter Summary ---
Author Organization [facility] Address [address] [place] [address] Phone Care Team Providers Care Engine Research Engineer Name Role Phone Judy Fishman NP Primary Care Provider + Jessica Martínez MD Unavailable [phone] Encounter Details Date Type Department Care Team (Late st Contact Info) Description 12/19/2020 4:00 PM CDT Office Visit [facility] Gastroenterology [address] Advanced [facility] 8th [place] [address] [place] [address] Trent Severino MD [address] [place] [address] Crohn's disease of small intestine with other [...] on file 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 Gender Identity Not on file Sexual Orientation Not on file documented as of this encounter Last Filed Vital Signs Vital Sign Reading Time Taken Comments Blood Pressure 139/69 12/19/2020 3:56 PM CDT Pulse 130 12/19/2020 3:56 PM CDT Temperature 37.1 ??C (98.7 ??F) 12/19/2020 3:56 PM CD T Respiratory Rate - - Oxygen Saturation - - Inhaled Oxygen Concentration - - Weight 112.5 kg (248 lb) 12/19/2020 3:56 PM CDT Height 162.6 cm (5' 4 ) 12/19/2020 3:56 PM CDT Body Mass Index 42.57 12/19/2020 3:56 PM CDT documented in this encounter Progress Notes * Lizz Clark NP - 12/19/2020 4:00 PM CDT Subjective NAME: Liliana Mancilla : 1990 DATE: 12/19/20 Referred here Primary Care Physician: Judy Fishman NP Consult requested by: Judy Fishman, * Chief Complaint: Crohn's disease My total encounter time on 12/19/2020 was 30 minutes which was spent in [...] has been further advanced to every 4 weeks. Her last colonoscopy was at time of diagnosis by Dr. Gomez at an outside hospital. She has a family history of crohn's with a paternal aunt and cousins with a history of Crohn's. MRE 03/2019??showed improvement in terminal ieal inflammation. Entyvio??level repeated 08/17/2019 and was 14. MRE 12/2019 normal . Calprotectin level . She underwent in vitro fertility treatment. She is now 14 weeks . Did have recent elevated CRP 10/27 at 53.5. Continues to be on entyvio every 4 weeks. ?? She is having 0-3 stools daily on average. Some occasional constipation. Denies any urgency of stool. Denies any hematochezia. Denies any joint pain. Nausea and vomiting improved. Denies any abdominal pain. Stools are semi soft to formed in consistency. ?? Patient Active Problem List Diagnosis Date Noted ??? Supervision of high-risk , unspecified trimester 11/16/2020 [x] Full [facility] Care; [] Red Team [] Blue Team Referring Provider: JESSICA Severino [phone] [facility] Jessica Mauricio: [phone]; [x] Dating Criteria: Embryo Transfer 10/03/20 with JONNATHAN 06/21/21 [x] Labs: Lab Results Component Value Date ABORH B Positive 11/24/2020 IDCOOMB Negative 11/24/2020 [id number] Nonreactive 11/24/2020 LABRPR Nonreactive 11/24/2020 RUBELIGG Reactive 11/24/2020 HEPBSAG Nonreactive 11/24/2020 HGB 11.1 (L) 11/24/2020 HCT 35.4 (L) 11/24/2020 LABPLAT 360 11/24/2020 [] GC/CT [] Genetic Screening: desires NIPT, Drawn [x] Early 1hr GTT (if indicated) - [...] . Considering, will discuss at next visit. 3rd Tri Labs: [] CBC/HIV/RPR/T&S: [] GBS: [] GC/CT (if indicated): [] COVID testing: Counselling [] MOD: [] Place of delivery: [] MOC: [] Method of feeding: [] Pick Pulling Machine Operator: [] PP Depression Discussed: ??? Obesity affecting , antepartum 11/16/2020 Previously counseled Rrecommend a specialized anatomic survey, serial growth assessment and testing. Aspirin 81mg should be started after 12 weeks ??? resulting from assisted reproductive technology, antepartum 11/16/2020 Previously counseled ??? NAFLD (nonalcoholic fatty liver disease) 06/12/2020 ??? BMI 40.0-44.9, adult (CMS/HCC) (HCC) 06/12/2020 ??? Prediabetes 06/12/2020 History of prediabetes with most recent A1c 5.6% (02/2020). [] Recommend early 1hr GTT. If normal, recommend GTT repeated at 24-28 weeks. ??? High risk medications (not anticoagulants) long-term [...] Types: Cigarettes Quit date: 10/03/2020 Years since quittin.2 ??? Smokeless tobacco: Never Used Substance and Sexual Activity ??? Alcohol use: Yes Alcohol/week: 2.0 standard drinks Types: 2 Glasses of wine per week ??? Drug use: Never ??? Sexual activity: Yes Partners: Male control/protection: None Other Topics Concern ??? Not on file Social History Narrative ??? Not on file Social Determinants of Health Financial Resource Strain: ??? Difficulty of Paying Living Expenses: Not on file Food Insecurity: ??? Worried About Running Out of Food in the Last Year: Not on file ??? Ran Out of Food in the Last Year: Not on file Transportation Needs: ??? Lack of Transportation (Medical): Not on file ??? Lack of Transportation (Non-Medical): Not on file Physical Activity: ??? Days of Exercise per Week: Not on file ??? Minutes of Exercise per Session: Not on file Stress: ??? Feeling of Stress : Not on file Social Connections: ??? Frequency of Communication with Friends and Family: Not on file ??? Frequency of Social Gatherings with Friends and Family: Not on file ??? Attends Latter-Day Services: Not on file ??? Active Member of Clubs or Organizations: Not on file ??? Attends Club or Organization Meetings: Not on file ??? Marital Status: Not on file Intimate Partner Violence: ??? Fear of Current or Ex-Partner: Not on file ??? Emotionally Abused: Not on file ??? Physically Abused: Not on file ??? Sexually Abused: Not on file Allergies Allergen Reactions ??? Cefdinir Swelling ??? Clindamycin Swelling ??? Povidone-Iodine Rash And chlorahexadine ??? Sulfa (Sulfonamide Antibiotics) Swelling ??? Unclassified Drug Swelling ??? Morphine Itching Current Outpatient Medications Medication Sig Dispense Refill ??? aspirin 81 mg enteric coated tablet Take 81 mg by mouth daily ??? cholecalciferol (Vitamin D3) 1,000 unit capsule ??? diphenhydramine HCl (UNISOM, DIPHENHYDRAMINE, ORAL) Take by mouth ??? no122/iron/folic acid ( MULTI ORAL) Take by mouth daily ??? pyridoxine (vitamin B-6) 100 mg tablet Take 100 mg by mouth daily ??? vedolizumab (ENTYVIO) 300 [...] Psychiatric/Behavioral: Negative. Breast: Negative. Vital Signs: BP 139/69 Pulse (!) 130 Temp 37.1 ??C (98.7 ??F) Ht 162.6 cm (5' 4 ) Wt 112.5 kg (248 lb) LMP 09/15/2020 (Exact Date) BMI 42.57 kg/m?? Physical Exam: GENERAL: Well-appearing, in no [...] normal insight, memory, affect, and orientation Labs: Lab on 12/08/2020 Component Date Value Ref Range Status ? ? GTT 50g gest screen 12/08/2020 133 <=140 mg/dL Final Lab on 11/24/2020 Component Date Value Ref Range Status ??? Sodium 11/24/2020 139 135 - 145 mmol/L Final ??? Potassium, pl 11/24/2020 3.5 3.3 - 4.9 mmol/L Final ??? Chloride 11/24/2020 107 97 - 110 mmol/L Final ??? CO2 11/24/2020 23 22 - 32 mmol/L Final ??? Anion gap 11/24/2020 9 2 - 15 mmol/L Final ??? BUN 11/24/2020 7* 8 - 25 mg/dL Final ??? Creatinine 11/24/2020 0.51* 0.60 - 1.10 mg/dL Final ??? Glucose 11/24/2020 75 70 - 199 mg/dL Final ??? Calcium 11/24/2020 8.7 8.5 - 10.3 mg/dL Final ? ? Bilirubin, total 11/24/2020 <0.2 0.1 - 1.2 mg/dL Final ??? Protein, pl 11/24/2020 6.9 6.5 - 8.5 g/dL Final ??? Albumin 11/24/2020 3.7 3.5 - 5.0 g/dL Final ??? Alk phos 11/24/2020 65 40 - 130 Units/L Final ??? ALT 11/24/2020 11 7 - 45 Units/L Final ??? AST 11/24/2020 13 10 - 45 Units/L Final ??? Ferritin 11/24/2020 125 15 - 150 ng/mL Final ??? Vitamin D, 25-hydroxy 11/24/2020 39 30 - 80 ng/mL Final ? ? Folic acid 11/24/2020 19.8 >=5.0 ng/mL Final ??? Vitamin B12 11/24/2020 328 230 - 1,250 pg/mL Final ??? Hep C Ab 11/24/2020 Nonreactive Nonreactive Final ??? HIV 1/2 Ab + p24 Ag 11/24/2020 Nonreactive Nonreactive Final ??? HepBsAg 11/24/2020 Nonreactive Nonreactive Final ??? WBC 11/24/2020 12.3* 3.8 - 9.9 K/cumm Final ??? Hgb 11/24/2020 11.1* 11.9 - 15.5 g/dL Final ??? Hct 11/24/2020 35.4* 35.6 - 45.5 % Final ??? Plt 11/24/2020 360 150 - 400 K/cumm Final ??? MPV 11/24/2020 10.5 9.1 - 12.3 fL Final ??? RBC 11/24/2020 4.13 3.90 - 5.20 M/cumm Final ??? MCV 11/24/2020 85.7 81.3 - 96.4 fL Final ??? MCH 11/24/2020 26.9* 27.1 - 33.3 pg Final ??? MCHC 11/24/2020 31.4* 32.3 - 35.7 g/dL Final ??? RDW CV 11/24/2020 13.3 11.1 - 14.9 % Final ??? RDW SD 11/24/2020 41.5 35.7 - 48.1 fL Final ??? NRBC abs 11/24/2020 0.00 0.00 - 0.01 K/cumm Final ??? Neutrophil abs 11/24/2020 7.7* 1.7 - 6.5 K/cumm Final ??? Imm gran abs 11/24/2020 0.1 0.0 - 0.1 K/cumm Final ??? Lymphocyte abs 11/24/2020 3.4* 0.8 - 3.3 K/cumm Final ??? Monocyte abs 11/24/2020 0.7 0.2 - 0.8 K/cumm Final ??? Eosinophil abs 11/24/2020 0.4 0.0 - 0.5 K/cumm Final ??? Basophil abs 11/24/2020 0.0 0.0 - 0.1 K/cumm Final ??? Neutrophil pct 11/24/2020 62.6 % Final ??? Imm gran pct 11/24/2020 0.5 % Final ??? Lymphocyte pct 11/24/2020 28.1 % Final ??? Monocyte pct 11/24/2020 5.6 % Final ??? Eosinophil pct 11/24/2020 2.9 % Final ??? Basophil pct 11/24/2020 0.3 % Final ??? RPR 11/24/2020 Nonreactive Nonreactive Final ??? Rubella IgG 11/24/2020 Reactive Final ??? ABO Rh 11/24/2020 B Positive Final ??? Andres, indirect 11/24/2020 Negative Final ? ? eGFR 11/24/2020 >90* 90 - 130 mL/min/1.73 m2 Final Office Visit on 11/24/2020 Component Date Value Ref Range Status ??? Urine culture 11/24/2020 Final ??? Creatinine, ur 11/24/2020 127 20 - 275 mg/dL Final ??? Protein/creatinine ratio 11/24/2020 118 21 - 161 mg/g creat Final ??? Protein/Creatinine Ratio 11/24/2020 0.118 0.021 - 0.161 mg/mg creat Final ??? Protein, ur, quant 11/24/2020 15 5 - 24 mg/dL Final Lab on 10/27/2020 Component Date Value Ref Range Status ??? T-SPOT.TB 10/27/2020 Negative SeeBelow Final ??? T-SPOT.TB Panel A Spot Count 10/27/2020 0 Final ??? T-SPOT.TB Panel B Spot Count 10/27/2020 0 Final ??? T-SPOT.TB Negative Control 10/27/2020 Passed Final ??? T-SPOT.TB Positive Control 10/27/2020 Passed Final ? ? CRP 10/27/2020 53.5* <=10.0 mg/L Final Infusion on 10/27/2020 Component Date Value Ref Range Status ??? Total Protein 10/27/2020 6.9 6.1 - 8.4 g/dL Final ??? Albumin 10/27/2020 3.5 3.5 - 5.2 g/dL Final ??? Calcium 10/27/2020 8.7 8.6 - 10.3 mg/dL Final ??? BUN 10/27/2020 8 7 - 23 mg/dL Final ??? Total Bilirubin 10/27/2020 0.23 0.20 - 1.40 mg/dL Final ??? Alk Phos, Total 10/27/2020 73 35 - 129 IU/L Final ??? AST (SGOT) 10/27/2020 INTERFERENCE - HEMOLYSIS 11 - 47 IU/L Final ??? ALT (SGPT) 10/27/2020 10 6 - 53 IU/L Final ??? Creatinine 10/27/2020 0.49* 0.6 - 1.1 mg/dL Final ??? Sodium 10/27/2020 136 135 - 145 mmol/L Final ??? Potassium 10/27/2020 INTERFERENCE - HEMOLYSIS 3.3 - 5.1 mmol/L Final ??? Chloride 10/27/2020 103 95 - 107 mmol/L Final ??? CO2 Content 10/27/2020 20* 21 - 29 mmol/L Final ??? Glucose 10/27/2020 104* 64 - 99 mg/dL Final ? ? eGFR 10/27/2020 >90.0 >60.0 mL/min/1.73 m2 Final ? ? eGFR 10/27/2020 >90.0 >60.0 mL/min/1.73 m2 Final ??? White Blood Count 10/27/2020 12.6* 3.6 - 11.2 K/uL Final ??? RBC 10/27/2020 3.90 3.63 - 4.92 M/uL Final ??? Hemoglobin 10/27/2020 11.0* 11.9 - 15.5 g/dL Final ??? Hematocrit 10/27/2020 32.7* 36 - 44 % Final ??? MCV 10/27/2020 83.9 80.0 - 97.6 fL Final ??? MCH 10/27/2020 28.2 26.7 - 33.7 pg Final ??? MCHC 10/27/2020 33.6 32 - 35 g/dL Final ??? RBC Dist Width 10/27/2020 13.5 12.3 - 17.0 % Final ??? Platelet Count 10/27/2020 332 140 - 440 K/uL Final ??? MPV 10/27/2020 8.6 6.8 - 10.4 fL Final ??? Neutrophils % 10/27/2020 63.0 38 - 74 % Final ??? Lymphocyte % 10/27/2020 29.7 20.0 - 54.3 % Final ??? Monocytes % 10/27/2020 3.7* 4 - 13 % Final ??? Eosinophils % 10/27/2020 3.1 0 - 6 % Final ??? Basophil % 10/27/2020 0.5 0.0 - 3.0 % Final ??? Absolute Neutrophil 10/27/2020 8.0* 1 - 6 K/uL Final ??? Absolute Lymphocyte 10/27/2020 3.7* 0.8 - 3.3 K/uL Final ??? Absolute Monocyte 10/27/2020 0.5 0.2 - 1.2 K/uL Final ??? Absolute Eosinophil 10/27/2020 0.4 0.0 - 0.5 K/uL Final ??? Absolute Basophil 10/27/2020 0.1 0.0 - 0.2 K/uL Final ??? Nucleated RBC % 10/27/2020 0.0 0.0 - 0.4 /100 WBC Final Imaging Review none ASSESSMENT and PLAN: Crohn's disease Has noted resolution of anticipatory symptoms since advancement of entyvio??to every 4 weeks. In general, 0-3 stools daily. Denies any hematochezia. She is now 14 weeks . Recent elevated CRP -continue entyvio -continue to vitamin D supplementation -continue safety labs -she is up to date on recommended vaccinations -follow up in 3 months ?? High [...] Severino MD at 06/25/2021 11:44 AM CDT Associated attestation - Trent Severino MD - 06/25/2021 11:44 AM CDT I have seen and examined the patient. I agree with the findings and plan of care as in nurse practitioner's note . documented in this encounter Plan of Treatment Not on file documented as of this encounter Procedures Procedure Name Priority Date/Time Associated Diagnosis Comments COPY(IES) SENT TO: Routine 12/29/2020 12 :30 PM CDT CALPROTECTIN, FECAL Routine 12/29/2020 12:30 PM CDT High risk medications (not anticoagulants) long-term use Crohn's disease of small intestine with other complication (HCC) documented in this encounter Results * COPY(IES) SENT TO: (12/29/2020 12:30 PM CDT) COPY(IES) SENT TO: [facility] Comment: ?[facility] ?COPY TO ACCOUNT ?[id number] [address] ?[place] [address] 12/29/2020 12:3 0 PM CDT 12/29/2020 1:12 PM CDT Trent Severino MD LAB BLOOD ORDERABLES Final Re sult [facility] * Calprotectin, fecal (12/29/2020 12:30 PM CDT) Calprotectin, Stool 48 mcg/g [facility]/Sangeetha brooks [facility] [place], Comment: ?Reference Range: ?<50 ? Normal ?50-120 ??Borderline ?>120 ?Elevated Calprotectin in Crohn's disease and ulcerative colitis can be five to several thousand times above the reference population (50 mcg/g or less). Levels are usually 50 mcg/g or less in healthy patients and with irritable bowel syndrome. Repeat testing in 4-6 weeks is suggested for borderline values. Stool 12/29/2020 12:3 0 PM CDT 12/29/2020 1:12 PM CDT Trent Severino MD LAB BODY FLUIDS AND STOOLS OR DERABLES Final Result Performing Organization Address [facility]/State/ZIP Co de Phone Number [facility], [address] [place] [address] documented in this encounter Visit Diagnoses Diagnosis Crohn's disease of small intestine with other complication (HCC)- Primary High risk medications (not anticoagulants) long-term use Encounter for long-term (current) use of other medications documented in this encounter Historical Medications * This list may reflect changes made after this encounter. vedolizumab (ENTYVIO) 300 mg recon soln 5 mL (300 mg total) added in this encounter Care Teams Engine Research Engineer Relationship Specialty Start Date End Date Judy Fishman NP [email or web address] [id number] PCP - General 07/31/18 Jessica Martínez MD [address] [address] Consulting Physician Obstetrics and Gynecology 11/16/20 documented as of this encounter
--- OUTSIDE RECORDS SUMMARY | 2024-04-11 06:16 | XMS_ITS | Encounter Summary ---
Author Organization [facility] Address [address] [place] [address] Phone Care Team Providers Care Driver Medic Name Role Phone Judy Fishman CLASSROOM PARAPROFESSIONAL Primary Care Provider + Jessica Martínez MD Unavailable [phone] Reason for Visit * Reason Comments High Risk Gestation Encounter Details Date Type Department Care Team (Late st Contact Info) Description 01/17/2021 8:00 AM CDT Office Visit [facility] Maternal- Medicine [address] [facility] [address] 7th [address] [place] [address] Judy Polanco, BINU [id number] [place], [place] [id number] Crohn's disease of small intestine with other complication (HCC) (Primary Dx); Obesity affecting , antepartum; Prediabetes; resulting from [...] file 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 Gender Identity Not on file Sexual Orientation Not on file documented as of this encounter Last Filed Vital Signs Vital Sign Reading Time Taken Comments Blood Pressure 123/81 01/17/2021 7:46 AM CDT Pulse 103 01/17/2021 7:46 AM CDT Temperature - - Respiratory Rate - - Oxygen Saturation 98% 01/17/2021 7:46 AM CDT Inhaled Oxygen Concentration - - Weight 112.5 kg (248 lb) 01/17/2021 7:46 AM CDT Height - - Body Mass Index 42.57 12/20/2020 8:22 AM CDT documented in this encounter Progress Notes * Judy Polanco, CLASSROOM PARAPROFESSIONAL - 01/17/2021 8:00 AM CDT MFM Return Visit 01/17/2021 Liliana Mancilla is a 30 y.o. at 17w6d who is here for a return OB visit. Her is complicated by Crohn's disease, IVF , BMI 42, and history of prediabetes. Subjective: Feels well today. She is not sleeping well despite taking unisom. She denies cramping, loss of fluid, or vaginal bleeding. Denies symptoms of flare. Objective: BP 123/81 Pulse 103 Wt 248 lb (112.5 kg) LMP 09/15/2020 (Exact Date) SpO2 98% BMI 42.57 kg/m?? General: NAD Abdomen: Soft, gravid, NT, FHR + Extremities: WWP, no edema Ultrasound: 01/17/2021 n/a Assessment/Plan: Liliana Mancilla is a 30 y.o. at 17w6d with a complicated by the following: Problem [...] assisted reproductive technology, antepartum Overview Previously counseled Supervision of high-risk , unspecified trimester Overview [x] Full M Care; [] Red Team [] Blue Team Referring Provider: JESSICA Severino [phone] [facility] Jessica Mauricio: [phone]; [x] Dating Criteria: Embryo Transfer 10/03/20 with JONNATHAN 06/21/21 [x] Labs: Lab Results Component Value Date ABORH B Positive 11/24/2020 IDCOOMB Negative 11/24/2020 [id number] Nonreactive 11/24/2020 LABRPR Nonreactive 11/24/2020 RUBELIGG Reactive 11/24/2020 HEPBSAG Nonreactive 11/24/2020 HGB 11.1 (L) 11/24/2020 HCT 35.4 (L) 11/24/2020 LABPLAT 360 11/24/2020 [x] GC/CT- Neg/Neg [x] Genetic Screening: [place] Low Risk [x] Early 1hr GTT (if indicated) - 12/08: 133 [x] UCx: Negative [x] Pap: 01/2019: negative [x] LD ASA (if indicated) starting at 12 weeks: indicated [] EPDS [ ]; PNBHS referral (if indicated) 2nd Tri Labs: [] Anatomy ultrasound: scheduled 02/14/21 [] CBC/1hr gtt at 24-28wks: [] Flu Shot (Dec-Mar): [] Tdap (27-36wks): [] COVID Vaccine: s/p dose #1, dose #2 scheduled 3rd Tri Labs: [] CBC/HIV/RPR: [] GBS: [] COVID testing: Counselling [] MOD: [x] Place of delivery: [facility] [] MOC: [] Method of feeding: [] Provider Network Mgr: [] PP Depression Discussed: Specialty Infusion Treatment [...] CS in the setting of perianal disease. #sleep - discussed good sleep hygiene - taking unisom 25mg nightly Precautions reviewed. DIEUDONNE Raphael documented in this encounter Plan of Treatment Not on file documented as of this encounter Visit Diagnoses Diagnosis Crohn's disease of small intestine with other complication (HCC)- Primary Obesity affecting , antepartum Prediabetes Other abnormal glucose resulting from assisted reproductive technology, antepartum Supervision of high-risk , unspecified trimester documented in this encounter Care Teams Driver Medic Relationship Specialty Start Date End Date Judy Fishman NP [address] [address] PCP - General 07/31/18 Jessica Martínez MD [address] [address] Consulting Physician Obstetrics and Gynecology 11/16/20 documented as of this encounter
--- OUTSIDE RECORDS SUMMARY | 2024-04-11 06:16 | XMS_ITS | Encounter Summary ---
Author Organization [facility] Address [address] [place] [address] Phone Care Team Providers Care Photograph Inspector Name Role Phone Judy Fishman NP Primary Care Provider + Jessica Martínez MD Unavailable [phone] Reason for Visit * Reason Onset Date Comments HARMONY RESULTS 12/19/2020 Encounter Details Date Type Department Care Team (Late st Contact Info) Description 12/19/2020 Telephone [facility] Maternal- Medicine [facility] [address] 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 Pt notified of results via [employer]. documented in this encounter Plan of Treatment Not on file documented as of this encounter Visit Diagnoses Not on filedocumented in this encounter Care Teams Photograph Inspector Relationship Specialty Start Date End Date Judy Fishman NP [address] [address] PCP - General 07/31/18 Jessica Martínez MD [address] [address] Consulting Physician Obstetrics and Gynecology 11/16/20 documented as of this encounter
--- OUTSIDE RECORDS SUMMARY | 2024-04-11 06:16 | XMS_ITS | Encounter Summary ---
Author Organization [facility] Address [address] [place] [address] Phone Care Team Providers Care Waterproofer Helper Name Role Phone Judy Fishman NP Primary Care Provider + Jessica Martínez MD Unavailable [phone] Reason for Referral * Diagnostic Imaging (Routine) - Closed Specialty Diagnoses / Procedures Referred By Contac t Referred To Contact Diagnoses High-risk in first trimester Supervision of high-risk , unspecified trimester Crohn's disease of small intestine with other complication (HCC) Procedures US Ob Detail Anatomy Single Or First Gestation Sharon Barry MD [address] [facility] [phone] [place] [address] Phone: tel: fax: [facility] (All Locations) Referral ID Status Reason Start Date Expiration Date Visits Re quested Visits Authorized [id number] Closed 11/24/2020 04/13/2021 1 2 Reason for Visit * Reason Comments Consult * Consultation (Routine) - Closed Specialty Diagnoses / Procedures Referred By Contac t Referred To Contact Maternal and Medicine Diagnoses High-risk in first trimester Trent Severino MD [address] [place] [address] Phone: tel: fax:[phone] [facility] (All Locations) Referral ID Status Reason Start Date Expiration Date V isits Requested Visits Authorized [id number] Closed Specialty Services Required 11/01/2020 04/13/2021 1 36 Encounter Details Date Type Department Care Team (Late st Contact Info) Description 11/24/2020 9:30 AM CDT Office Visit [facility] Maternal- Medicine [address] 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 Maternal Medicine Initial Visit Note Liliana Mancilla is a 30 y.o. at 10w1d by embryo transfer date consistent with 1st trimester US here today for initial OB visit. Her is complicated by Crohn's disease, IVF , BMI 42, and history of prediabetes (most recent HbA1c 5.6% in 02/2020). Duncan is doing well today. She is happy that things are going well with the . She denies anyleakage of fluid, vaginal bleeding, contractions, or dysuria/abnormal discharge. She has not had a Crohn's flare since her initial diagnosis in 2019, and has been well controlled on her biologic agent since. She has been taking a low dose aspirin due to the IVF , and notes that she stoppedtaking her supplemental estrogen and progesterone yesterday. Past Medical History: Diagnosis Date ??? Autoimmune disorder (CMS/HCC) (HCC) ??? Crohn's disease (CMS/HCC) (HCC) Past Surgical History: Procedure Laterality Date ??? ANKLE FRACTURE SURGERY 2008 ??? CERVICAL BIOPSY W/ LOOP ELECTRODE EXCISION ??? CHOLECYSTECTOMY 2018 Past Gynecologic History: Patient's last menstrual period was 09/15/2020 (exact date)., Menses: irregular, Prior STIs: none. Her last pap smear was 2019 - normal. Prior control methods: did not address. She has a history of infertility - this is an IVF . No history of gynecologic surgery or breast cancer. Shehas no history of blood transfusions. OB History Para Term AB Living 1 SAB TAB Ectopic Multiple Live Births # Outcome Date GA Lbr Amor/2nd Weight Sex Delivery Anes PTL Lv 1 Current Medications: Current Outpatient Medications: ??? aspirin 81 mg enteric coated tablet, Take 81 mg by mouth daily, Disp: , Rfl: ??? cholecalciferol (Vitamin D3) 1,000 unit capsule, , Disp: , Rfl: ??? diphenhydramine HCl (UNISOM, DIPHENHYDRAMINE, ORAL), Take by mouth, Disp: , Rfl: ??? no122/iron/folic acid ( MULTI ORAL), Take by mouth daily, Disp: , Rfl: ??? pyridoxine (vitamin B-6) 100 mg tablet, Take 100 mg by mouth daily, Disp: , Rfl: No current facility-administered medications for this visit. Family History: Family History Problem Relation Age of Onset ??? Diabetes Mother ??? Hypertension Mother ??? Cancer Mother's Sister ??? Cancer Maternal Grandmother ??? Cancer Maternal Grandfather ??? Diabetes Maternal Grandfather ??? Cancer Paternal Grandmother ??? Ulcerative colitis Paternal cousin ??? Crohn's disease Paternal cousin Specifically, she denies a family history of defects including spina bifida, congenital heartdefects, limb defects, or kidney defects. She denies a family history of genetic abnormalities including Down Syndrome, cognitive delays, or learning disabilities including autism spectrum disorders.She denies a family history of inherited disorders including cystic fibrosis, thalassemia, sickle cell disease, or muscular dystrophy. Allergies Allergen Reactions ??? Cefdinir Swelling ??? Clindamycin Swelling ??? Povidone-Iodine Rash And chlorahexadine ??? Sulfa (Sulfonamide Antibiotics) Swelling ??? Unclassified Drug Swelling ??? Morphine Itching Soc Hx: Social History Socioeconomic History ??? Marital status: Occupational History ??? Not on file Tobacco Use ??? Smoking status: Former Smoker Packs/day: 0.50 Types: Cigarettes Quit date: 10/03/2020 Years since quittin.1 ??? Smokeless tobacco: Never Used Substance and Sexual Activity ??? Alcohol use: Yes Alcohol/week: 2.0 standard drinks Types: 2 Glasses of wine per week ??? Drug use: Never ??? Sexual activity: Yes Partners: Male control/protection: None Other Topics Concern ??? Not on file Social History Narrative ??? Not on file Dating: Embryo transfer date: 10/03/2020 > JONNATHAN 06/21/21 Ultrsaound 11/01/20 > JONNATHAN 06/21/21 Review of Systems All review of systems are negative except for noted in HPI Physical Exam Vitals BP 124/82 Pulse 95 Wt 249 lb (112.9 kg) LMP 09/15/2020 (Exact Date) SpO2 97% BMI 45.54 kg/m?? General: Healthy, alert, active, cooperative HEENT: NCAT Heart: Normal rate Lungs: Normal work of breathing on room air Extremities: warm, well-perfused without cyanosis, clubbing or edema Pelvic: deferred Heart Rate: Present on formal US Labs: Lab Results Component Value Date WBC 12.3 (H) 11/24/2020 HGB 11.1 (L) 11/24/2020 HCT 35.4 (L) 11/24/2020 MCV 85.7 11/24/2020 LABPLAT 360 11/24/2020 Chemistry Lab Results Component Value Date SODIUM 139 06/09/2020 POTASSIUM 3.5 06/09/2020 CHLORIDE 106 06/09/2020 CO2 20 (L) 10/27/2020 ANIONGAP 7 06/09/2020 BUNSER 8 06/09/2020 CREATININE 0.49 (L) 10/27/2020 GLUCOSE 104 (H) 10/27/2020 CALCIUM 8.7 10/27/2020 BILITOT 0.23 10/27/2020 ALBUMIN 3.5 10/27/2020 GFRNAA >90.0 04/12/2020 ALKPHOS 73 10/27/2020 AST INTERFERENCE - HEMOLYSIS 10/27/2020 ALT 10 10/27/2020 Ultrasound at our [facility]: Ultrasound 11/24/2020: 10w1d CRL 32.4 mm, consistent with 10w1d. Anterior placenta. Normal fluid. Cardiac motion present. Assessment: Ms. Liliana Mancilla is a wing 30 y.o. at 10w1d by embryo transfer date here today for a consult regarding Crohn's disease. Her is also complicated by IVF , BMI 42, and history of prediabetes (most recent HbA1c 5.6% in 02/2020). Crohn's disease of small intestine with other complication (HCC) Duncan was diagnosed with Crohn's disease in 2019 and has [...] for IUGR, delivery, and abruption, especially with activedisease. Furthermore, increased folic acid of 2mg/daily should [...] CS in the setting of perianal disease. Obesity affecting , antepartum We discussed the risks associated with obesity, [...] weeks given ART and obesity resulting from assisted reproductive technology, antepartum We discussed that pregnancies resulting from ART are at increased risk for abnormal placentation, placenta previa, abruption, -induced hypertension, IUGR, , congential anomalies, and delivery. - Recommend continuation of low dose aspirin daily through 36 weeks - Detailed anatomy US at 19-20 weeks Prediabetes History of prediabetes with most recent A1c 5.6% (02/2020). - Recommend early 1hr GTT. If normal, recommend GTT repeated at 24-28 weeks. Supervision of high-risk , unspecified trimester SEROLOGIES NEEDED [] Co-management vs. [] Full MF Care; [] Red Team [] Blue Team Referring Provider: JESSICA Severino [phone] [facility] Jessica Martínez: [phone]; [] or Medicare Insurance [x] Dating Criteria: Embryo Transfer 10/03/20 with JONNATHAN 06/21/21 [] Labs: Rh [ ], Ab [ ], Rubella [ ], HIV [ ], HepBSAg [ ], RPR [ ], GC/CT [ ] - collected11/24 [] Genetic Screening: desires NIPT, discussed 11/24 [...] [] MOC: [] Method of feeding: [] Beating Machine Operator: [] PP Depression Discussed: care not yet [...] if does not get in the meantime Recommend RTC in 4 weeks. She was seen and examined with Dr. Barry who is in agreement with the documented assessment and plan. Laxmi Vincent MD Maternal Medicine, PGY-5 Cosigned by Sharon Barry MD at 11/28/2020 8:32 AM CDT Associated attestation - Sharon Barry MD - 11/28/2020 8:32 AM CDT Attending Attestation I have seen, examined, and discussed Liliana Mancilla with Dr. Vincent. I agree with the findings andthe plan of care as documented. documented in this encounter Miscellaneous Notes * Assessment & Plan Note - Laxmi Vincent MD - 11/24/2020 3:12 PM CDT Associated Problem(s): Supervision of high-risk , unspecified trimester (Resolved 06/12/2021) SEROLOGIES NEEDED [] Co-management vs. [] Full MFM Care; [] Red Team [] Blue Team Referring Provider: JESSICA Severino [phone] [facility] Jessica Mauricio: [phone]; [] or Medicare Insurance [x] Dating Criteria: Embryo Transfer 10/03/20 with JONNATHAN 06/21/21 [] Labs: Rh [ ], Ab [ ], Rubella [ ], HIV [ ], HepBSAg [ ], RPR [ ], GC/CT [ ] - collected11/24 [] Genetic Screening: desires NIPT, discussed 11/24 [...] [] MOC: [] Method of feeding: [] Beating Machine Operator: [] PP Depression Discussed: care not yet [...] if does not get in the meantime * Assessment & Plan Note - Laxmi Vincent MD - 11/24/2020 3:10 PM CDT Associated Problem(s): Prediabetes (Resolved 10/30/2022) History of prediabetes with most recent A1c 5.6% (02/2020). - Recommend early 1hr GTT. If normal, recommend GTT repeated at 24-28 weeks. * Assessment & Plan Note - Laxmi Vincent MD - 11/24/2020 3:08 PM CDT Associated Problem(s): resulting from assisted reproductive technology, antepartum (Resolved 06/12/2021) We discussed that pregnancies resulting from ART are at increased risk for abnormal placentation, placenta previa, abruption, -induced hypertension, IUGR, , congential anomalies, and delivery. - Recommend continuation of low dose aspirin daily through 36 weeks - Detailed anatomy US at 19-20 weeks * Assessment & Plan Note - Laxmi Vincent MD - 11/24/2020 3:07 PM CDT Associated Problem(s): Obesity in , antepartum (Resolved 06/24/2023) We discussed the risks associated with obesity, [...] until 36 weeks given ART and obesity * Assessment & Plan Note - Laxmi Vincent MD - 11/24/2020 3:03 PM CDT Associated Problem(s): Crohn's disease of small intestine with other complication (HCC) Duncan was diagnosed with Crohn's disease in 2019 and has [...] for IUGR, delivery, and abruption, especially with activedisease. Furthermore, increased folic acid of 2mg/daily should [...] CS in the setting of perianal disease. documented in this encounter Plan of Treatment Not on file documented as of this encounter Procedures Procedure Name Priority Date/Time Associated Diagnosis Comments PROTEIN / CREATININE RATIO, URINE, RANDOM Routine 11/24/2020 10:22 AM CDT High-risk in first trimester Supervision of high-risk , unspecified trimester Crohn's disease of small intestine with other complication (HCC) URINE CULTURE Routine 11/24/2020 10:22 AM CDT High-risk in first trimester Supervision of high-risk , unspecified trimester Crohn's disease of small intestine with other complication (HCC) documented in this encounter Results * US Ob Detail Anatomy Single Or First Gestation (12/20/2020 7:16 AM CDT) Anatomical Region Laterality Modality Body N/A Ultrasound 12/20/2020 7:19 AM CDT Narrative 12/20/2020 8:31 AM CDT There are no Discrete Measurement Components for this test result - Please see .pdf Procedure Note Cayetano Beltre MD - 12/20/2020 There are no Discrete Measurement Components for this test result - Pleasesee .pdf us Sharon Barry MD IMG OB US PROCEDU RES Final Result * Glucose tolerance testing 50 gram gestational screen (12/08/2020 12:53 PM CDT) GTT 50g gest screen 133 <=140 mg/dL [facility] Comment: Interpretive Data Used for [...] MD LAB BLOOD ORDERAB LES Final Result [facility] [place] [address] * (ABNORMAL) Comprehensive metabolic panel (11/24/2020 2:37 PM CDT) [facility] Sodium 139 135 - 145 mmol/L [facility] Potassium, pl 3.5 3.3 - 4.9 mmol/L [facility] Chloride 107 97 - 110 mmol/L [facility] CO2 23 22 - 32 mmol/L [facility] Anion gap 9 2 - 15 mmol/L [facility] BUN 7(L) 8 - 25 mg/dL [facility] Creatinine 0.51(L) 0.60 - 1.10 mg/dL [facility] Glucose 75 70 - 199 mg/dL [facility] Comment: Interpretive Data Fasting glucose [...] interpretive data was last revised 2017. Calcium 8.7 8.5 - 10.3 mg/dL [facility] Bilirubin, total <0.2 0.1 - 1.2 mg/dL [facility] Protein, pl 6.9 6.5 - 8.5 g/dL [facility] Albumin 3.7 3.5 - 5.0 g/dL [facility] Alk phos 65 40 - 130 Units/L [facility] ALT 11 7 - 45 Units/L [facility] AST 13 10 - 45 Units/L [facility] Blood specimen (specimen) 11/24/2020 2:37 PM CDT 11/24/2020 2:56 PM CDT us Sharon Barry MD LAB BLOOD ORDERAB LES Final Result Performing Organization Address [facility] Co de Phone Number [facility] Department [place] [address] * Ferritin (11/24/2020 2:37 PM CDT) Pathologist [facility] Ferritin 125 15 - 150 ng/mL [facility] Blood specimen (specimen) 11/24/2020 2:37 PM CDT 11/24/2020 2:56 PM CDT us Sharon Barry MD LAB BLOOD ORDERAB LES Final Result Performing Organization Address City/[facility] Co de Phone Number [facility] [place] [address] * Vitamin D 25 hydroxy (11/24/2020 2:37 PM CDT) Vitamin D 25-OH 39 30 - 80 ng/mL [facility] Blood specimen (specimen) 11/24/2020 2:37 PM CDT 11/24/2020 2:56 PM CDT us Sharon Barry MD LAB BLOOD ORDERAB LES Final Result Performing Organization Address City/[facility]/ZIP Co de Phone Number [facility] [place] [address] * Folate (11/24/2020 2:37 PM CDT) [facility] Folic acid 19.8 >=5.0 ng/mL [facility] Blood specimen (specimen) 11/24/2020 2:37 PM CDT 11/24/2020 2:56 PM CDT Sharon Barry MD LAB BLOOD ORDERAB LES Final Result Performing Organization Address [facility] Co de Phone Number [facility] [place] [address] * Vitamin B12 (11/24/2020 2:37 PM CDT) [facility] Vitamin B12 328 230 - 1,250 pg/mL [facility] Blood specimen (specimen) 11/24/2020 2:37 PM CDT 11/24/2020 2:56 PM CDT Sharon Barry MD LAB BLOOD ORDERAB LES Final Result Performing Organization Address [facility] Co de Phone Number [facility] [place] [address] * Hepatitis C antibody (11/24/2020 2:37 PM CDT) [facility] Hep C Ab Nonreactive Nonreactive [facility] Comment:Antibodies to HCV no t detected. Does NOT exclude the possibility of recent exposure to HCV. Blood specimen (specimen) 11/24/2020 2:37 PM CDT 11/24/2020 2:57 PM CDT us Sharon Barry MD LAB MICRO BIOLOGY - GENERAL ORDERABLES Edited Result - Final Performing Organization Address City/[facility] Co de Phone Number [facility] [place] [address] * HIV 1/2 Antibody plus p24 Antigen (11/24/2020 2:37 PM CDT) Pathologist [facility] HIV 1/2 ab + p24 ag Nonreactive Nonreactive [facility] Comment: Nonreactive for HIV-1 antigen and HIV-1/HIV-2 antibodies. No laboratory evidence of HIV infection. If acute HIV infection is suspected, consider testing for HIV-1 RNA. Blood specimen (specimen) 11/24/2020 2:37 PM CDT 11/24/2020 2:57 PM CDT Sharon Barry MD LAB MICROBIOLOGY - GENERAL ORDERABLES Final Result [facility] [place] [address] * Protein / creatinine ratio, urine, random (11/24/2020 10:22 AM CDT) Pathologist [facility] Creatinine, ur 127 20 - 275 mg/dL [facility] Protein/creatin ine ratio 118 21 - 161 mg/g creat [facility] Protein/Creatin ine Ratio 0.118 0.021 - 0.161 mg/mg creat [facility] Protein, ur, quant 15 5 - 24 mg/dL [facility] Urine 11/24/2020 10:2 2 AM CDT 11/25/2020 5:44 AM CDT Sharon Barry MD LAB URINE ORDERAB LES Final Result [facility] [address] [place] [address] * Urine culture Urine, clean voided (11/24/2020 10:22 AM CDT) Pathologist [facility] Urine culture [facility] Comment: ??CULTURE, URINE, ROUTINE ?Micro Number: ?[id number] ??Test Status: ? Final ??Specimen Source: ?? Urine ??Specimen Quality: ??Adequate ??Result: ?No Growth Urine, clean voided 11/24/2020 10:22 AM CDT 11/25/2020 4:13 AM CDT Sharon Barry MD LAB MICROBIOLOGY - GENERAL ORDERABLES Final Result [facility] [address] [place] [address] documented in this encounter Visit Diagnoses Diagnosis Supervision of high-risk , unspecified trimester- Primary High-risk in first trimester Crohn's disease of small intestine with other complication (HCC) High-risk in first trimester Supervision of high-risk , unspecified trimester Crohn's disease of small intestine with other complication (HCC) documented in this encounter Historical Medications * This list may reflect changes made after this encounter. diphenhydramine HCl (UNISOM, DIPHENHYDRAMINE, ORAL) Take by mouth 05/31/2021 aspirin 81 mg enteric coated tablet Take 81 mg by mouth daily 05/31/2021 pyridoxine (vitamin B-6) 100 mg tablet Take 100 mg by mouth daily 04/26/2021 cholecalciferol (VITAMIN D-3) 1,000 unit capsule 06/12/2020 06/13/2022 added in this encounter Orders Outpatient Referral Count Last Ordered Date Fir st Ordered Date AMB REFERRAL TO [facility]ERNAL AND MEDICINE 1 11/24/2020 documented in this encounter Care Teams Waterproofer Helper Relationship Specialty Start Date End Date Judy Fishman NP [address] [id number] PCP - General 07/31/18 Jessica Martínez MD [address] [address] Consulting Physician Obstetrics and Gynecology 11/16/20 documented as of this encounter
--- OUTSIDE RECORDS SUMMARY | 2024-04-11 06:16 | XMS_ITS | Encounter Summary ---
Author Organization [facility] Address [address] [place] [address] Phone Care Team Providers Care Senior Media Director Name Role Phone Judy Fishman NP Primary Care Provider + Jessica Martínez MD Unavailable [phone] Reason for Visit * Episode Based Medications (Routine) - Pending Review Specialty Diagnoses / Procedures Referred By Contac t Referred To Contact Diagnoses Crohn's disease of small intestine with other complication (HCC) Procedures [place] INJECTION, VEDOLIZUMAB Trent Severino MD [address] [place] [address] Phone: tel: fax: [facility] Infusion Therapy [facility] 5th [place] [address] [place] [address] Phone: tel: fax: Referral ID Status Reason Start Date Expiration Date V isits Requested Visits Authorized [id number] Pending Review 09/26/2021 09/26/2022 41 [phone] Encounter Details Date Type Department Care Team (Late st Contact Info) Description 12/22/2020 11:30 AM CDT Infusion [facility] Infusion Therapy [address] [facility] Advanced [facility] 5th [place] [address] [place] [address] Crohn's disease of small intestine [...] on file 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 IV placed in??left ac.??VSS. Pre- med's declined. Tolerated well, no adverse reactions. Follow up appointment scheduled. Pt stated she was getting her COVID vaccine after this appt, was educated to wait 72 hours in between, stated she will reschedule her vaccine. No other concerns.?? documented in this encounter Plan of Treatment [...] mL/hr, Administer over 30 Minutes, Once, On Fri12/22/20 at 1245, For 1 doseIndications:Crohn's disease of small intestine with other complication (HCC) New Bag 12/22/2020 11:47 AM CDT 300 mg 510 mL/hr documented in this encounter Orders Medications Ordered That Jonathan ht Not Have Been Administered Count Last Ordered Date First Ordered Date vedolizumab (ENTYVIO) 300 mg in sodium chloride 0.9% 250 mL IVPB 1 12/22/2020 documented in this encounter Care Teams Senior Media Director Relationship Specialty Start Date End Date Judy Fishman NP [address] [id number] PCP - General 07/31/18 Jessica Martínez MD [address] [place] [address] Consulting Physician Obstetrics and Gynecology 11/16/20 documented as of this encounter
--- OUTSIDE RECORDS SUMMARY | 2024-04-11 06:16 | XMS_ITS | Encounter Summary ---
Author Organization [facility] Address [address] [place] [address] Phone Care Team Providers Care Layout Artist Name Role Phone Judy Fishman NP Primary Care Provider + Jessica Martínez MD Unavailable [phone] Encounter Details Date Type Department Care Team (Late st Contact Info) Description 12/08/2020 11:30 AM CDT Procedure visit [facility] Obstetrics and Gynecology [facility] Health 7th [place] [address] Genetic screening Social History Tobacco Use Types Packs/Day Years Used Date Smoking Tobacco: Former Cigarettes Q uit: 10/03/2020 Smokeless Tobacco: Never Alcohol Use Standard Drinks/Week Comments Yes 2 (1 standard drink = 0.6 oz pur e alcohol) Comments Yes Sex and Gender Information Value Date Recorded Sex Assigned at Not on file 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 Sent off with [employer]. documented in this encounter Plan of Treatment Not on file documented as of this encounter Visit Diagnoses Diagnosis Genetic screening Other genetic screening documented in this encounter Care Teams Layout Artist Relationship Specialty Start Date End Date Judy Fishman NP [address] [address] PCP - General 07/31/18 Jessica Martínez MD [address] [address] Consulting Physician Obstetrics and Gynecology 11/16/20 documented as of this encounter
--- OUTSIDE RECORDS SUMMARY | 2024-04-11 06:16 | XMS_ITS | Encounter Summary ---
Author Organization [facility] Healthcare Address [address] [place] [address] Care Team Providers Care [employer] Ax Consultant Name Role Phone Judy Fishman PROGRESS WORKER Primary Care Provider + Jessica Martínez MD Unavailable [phone] Reason for Referral * Diagnostic Imaging (Routine) - Closed Specialty Diagnoses / Procedures Referred By Mray roberson Referred To Contact Diagnoses High-risk in first trimester Supervision of high-risk , unspecified trimester Crohn's disease of small intestine with other complication (HCC) Procedures US Ob Detail Anatomy Single Or First Gestation Sharon Barry MD [address] [facility] [id number] [place] [address] Phone: tel: fax: [facility] (All Locations) Referral ID Status Reason Start Date Expiration Date Visits Re quested Visits Authorized [id number] Closed 11/24/2020 04/13/2021 1 2 Reason for Visit * Diagnostic Imaging (Routine) - Closed Specialty Diagnoses / Procedures Referred By Mary roberson Referred To Contact Diagnoses High-risk in first trimester Supervision of high-risk , unspecified trimester Crohn's disease of small intestine with other complication (HCC) Procedures US Ob Detail Anatomy Single Or First Gestation Sharon Barry MD [address] [facility] [phone] [place] [address] Phone: tel: fax: [facility] (All Locations) Referral ID Status Reason Start Date Expiration Date Visits Re quested Visits Authorized [id number] Closed 11/24/2020 04/13/2021 1 2 Encounter Details Date Type Department Care Team (Latest Contact Info) Description 12/20/2020 7:16 AM CDT - 12/20/2020 11:59 PM CDT Hospital Encounter [facility] - Ultrasound [address] [facility], 7th Floor, [address] [place] [address] [place] [address] [place] [address] AVE [facility] [phone] [place] [address] High-risk in first trimester; Supervision of high-risk [...] on file Legal Sex Female 7:54 PM FOUNDRY HELPER Gender Identity Not on file Sexual [...] GESTATION Schedule Routine, Read Routine (OP Routine) 12/20/2020 7:16 AM CDT High-risk in first trimester Supervision [...] (HCC) documented in this encounter Care Teams [employer] Ax Consultant Relationship Specialty Start Date End Date Judy Fishman NP [address] [address] PCP - General 07/31/18 Jessica Martínez MD [address] [address] Consulting Physician Obstetrics and Gynecology 11/16/20 documented as of this encounter
--- OUTSIDE RECORDS SUMMARY | 2024-04-11 06:16 | XMS_ITS | Encounter Summary ---
Author Organization [facility] Address [address] [place] [address] Phone Care Team Providers Care Cover Creaser Name Role Phone Camilla Fishman NP Primary Care Provider + Jessica Martínez MD Unavailable [phone] Reason for Referral * Cardiology (Routine) - Closed Specialty Diagnoses / Procedures Referred By Contac t Referred To Contact Diagnoses Supervision of high-risk , unspecified trimester resulting from assisted reproductive technology, antepartum Procedures Echocardiogram Camilla Botello NP [address] [facility] [phone] [place] [address] Phone: tel: fax: [facility] (All Locations) Referral ID Status Reason Start Date Expiration Date Visits Re quested Visits Authorized [id number] Closed 02/14/2021 03/16/2022 2 2 Encounter Details Date Type Department Care Team (Late st Contact Info) Description 02/14/2021 Orders Only [facility] Maternal- Medicine [address] [facility] Health 7th Floor [address] [place] [address] Pauline Campos RN Supervision of high-risk , unspecified trimester (Primary Dx); resulting from assisted reproductive technology, antepartum Social History Tobacco Use Types Packs/Day Years Used Date Smoking Tobacco: Former Cigarettes Q uit: 10/03/2020 Smokeless Tobacco: Never Alcohol Use Standard Drinks/Week Comments Yes 2 (1 standard drink = 0.6 oz pur e alcohol) Comments Yes Sex and Gender Information Value Date Recorded Sex Assigned at Not on file Legal Sex Female 7:54 PM CHARACTER ACTRESS Gender Identity Not on file Sexual Orientation Not on file documented as of this encounter Plan of Treatment Not on file documented as of this encounter Results * Echocardiogram (02/23/2021 3:05 PM CHARACTER ACTRESS) Anatomical Region Laterality Modality Ultrasound 02/23/2021 1:00 PM CHARACTER ACTRESS Narrative 02/23/2021 3:59 PM CHARACTER ACTRESS ?[facility] ? Echo Report ?[facility] ??[address] ?[phone] ? Patient Name: LILIANA MANCILLA ? Study Type: Echo ? Patient : 1990 ? Exam Date: ??02/23/2021 ? Age: ?30Y ? Exam Time: ??1:00:00 PM ? Referring MD: CAMILLA BOTELLO ?? Height: ? 157.5cm ?Weight: ? 118.64kg ? BSA: ?2.14 m2 ?Sex: FEMALE ? BP: ? 125/78 ? Truck Washer: Noemí Pryor ? Pat. Stat.: Outpatient ? Room: [facility] ? Account:[id number] ? Indications for Study:I.V.F. ? Procedures: COLORFLOW, [...] Normal. Septum: PFO. Defect sz. Moderate ??Shunt: Qzprc-[id number]-Knko ?? Ventricles: D-looped ??LV size: Normal. LV [...] Procedure Note Balwinder Li MD - 02/23/2021 [facility] Echo Report [address] [address] Patient Name: LILIANA MANCILLA Study Type: Echo Patient : 1990 Exam Date: 02/23/2021 Age: 30Y Exam Time: 1:00:00 PM Referring MD: CAMILLA BOTELLO Height: 157.5cm Weight: 118.64kg BSA: 2.14 m2 Sex: FEMALE BP: 125/78 Truck Washer: Noemí Pryor Pat. Stat.: Outpatient Room: [facility] Account:[id number] Indications for Study:I.V.F. Procedures: COLORFLOW, DOPPLER COMPLETE, [...] Normal. Septum: PFO. Defect sz. Moderate Shunt: [id number] Ventricles: D-looped LV size: Normal. LV function:Normal. [...] Signed 02/23/2021 03:59 PM Balwinder Li MD Result [facility] Camilla Botello NP CV ECHO PROCEDURES Final Result documented in this encounter Visit Diagnoses Diagnosis Supervision of high-risk , unspecified trimester- Primary resulting from assisted reproductive technology, antepartum Supervision of high-risk , unspecified trimester resulting from assisted reproductive technology, antepartum documented in this encounter Care Teams Cover Creaser Relationship Specialty Start Date End Date Camilla Fishman NP [address] [address] PCP - General 07/31/18 Jessica Martínez MD [address] [address] Consulting Physician Obstetrics and Gynecology 11/16/20 documented as of this encounter
--- OUTSIDE RECORDS SUMMARY | 2024-04-11 06:16 | XMS_ITS | Encounter Summary ---
Author Organization [facility] Address [address] [place] [address] Phone Care Team Providers Care Laborer Wrecking And Salvaging Name Role Phone Judy Fishman NP Primary Care Provider + Jessica Martínez MD Unavailable [phone] Encounter Details Date Type Department Care Team (Late st Contact Info) Description 01/03/2021 Telephone [facility] Maternal- Medicine [facility] [address] [facility] Medical [address] [place] [address] Kristyn Cordova RN Social History Tobacco Use Types Packs/Day Years Used Date Smoking Tobacco: Former Cigarettes Q uit: 10/03/2020 Smokeless Tobacco: Never Alcohol Use Standard Drinks/Week Comments Yes 2 (1 standard drink = 0.6 oz pur e alcohol) Comments Yes Sex and Gender Information Value Date Recorded Sex Assigned at Not on file Legal Sex Female 7:54 PM PROCESS AREA SUPERVISOR Gender Identity Not on file Sexual Orientation Not on file documented as of this encounter Miscellaneous Notes * Telephone Encounter - Kristyn Cordova RN - 01/03/2021 12:52 PM CDT Call received from pt c/o congestion, headache, sore throat and temp of 98.8 that started yesterday. Instructed pt that she should be tested for COVID. Discussed with Dr. Collins, will order test. documented in this encounter Plan of Treatment Not on file documented as of this encounter Visit Diagnoses Not on filedocumented in this encounter Care Teams Laborer Wrecking And Salvaging Relationship Specialty Start Date End Date Judy Fishman NP [address] [address] PCP - General 07/31/18 Jessica Martínez MD [address] [address] Consulting Physician Obstetrics and Gynecology 11/16/20 documented as of this encounter
--- OUTSIDE RECORDS SUMMARY | 2024-04-11 06:16 | XMS_ITS | Encounter Summary ---
Author Organization [facility] Healthcare Address [address] [place] [address] Care Team Providers Care Therapeutic Massage Technician Name Role Phone Judy Fishman DEBUBBLIZER Primary Care Provider + Jessica Martínez MD Unavailable [phone] Reason for Visit * Reason Onset Date Comments Incoming Call 01/06/2021 Encounter Details Date Type Department Care Team (Late st Contact Info) Description 01/06/2021 Nurse Triage [address] [address] Kiesha Fowler, [place] Social History Tobacco Use Types Packs/Day Years Used Date Smoking Tobacco: Former Cigarettes Q uit: 10/03/2020 Smokeless Tobacco: Never Alcohol Use Standard Drinks/Week Comments Yes 2 (1 standard drink = 0.6 oz pur e alcohol) Comments Yes Sex and Gender Information Value Date Recorded Sex Assigned at Not on file Legal Sex Female 7:54 PM CAMP DIRECTOR Gender Identity Not on file Sexual Orientation Not on file documented as of this encounter Miscellaneous Notes * Telephone Encounter - Kiesha Fowler RN - 01/06/2021 8:00 PM CDT Pt called in with c/o having super sore sinuses , being congested, coughing up green gross nasty stuff and ears are full of fluid. States that she called and spoke with someone on Friday. Took a COVID test and it came back negative. Was told to contact her primary doctor. When she called her primary doctor they told her because she is she needs to call her OB for meds. Denies any difficulty breathing, SOB or chest pain. Pt is requesting for a Rx to be sent to the [facility] in [place], [place]. Pt informed that someone will be contacting her back. Pt verbalizes understanding and states ok. Eda Monte phoned and informed of pt's complaints. States that she will call the pt back. Reason for Disposition ??? [1] Sinus pain (not just congestion) AND [2] fever Protocols used: COMMON [id number] documented in this encounter Plan of Treatment Not on file documented as of this encounter Visit Diagnoses Not on filedocumented in this encounter Care Teams Therapeutic Massage Technician Relationship Specialty Start Date End Date Judy Fishman NP [address] [address] PCP - General 07/31/18 Jessica Martínez MD [address] [address] Consulting Physician Obstetrics and Gynecology 11/16/20 documented as of this encounter
--- OUTSIDE RECORDS SUMMARY | 2024-04-11 06:16 | XMS_ITS | Encounter Summary ---
Author Organization [facility] Address [address] [place] [address] Phone Care Team Providers Care Back Hand Name Role Phone Judy Fishman NP Primary Care Provider + Jessica Martníez MD Unavailable [phone] Reason for Visit * Episode Based Medications (Routine) - Pending Review Specialty Diagnoses / Procedures Referred By Contac t Referred To Contact Diagnoses Crohn's disease of small intestine with other complication (HCC) Procedures PA INJECTION, VEDOLIZUMAB Trent Severino MD [address] [place] [address] Phone: tel: fax: [facility] 5th [place] [address] [place] [address] Phone: tel: fax: Referral ID Status Reason Start Date Expiration Date V isits Requested Visits Authorized [id number] Pending Review 09/26/2021 09/26/2022 41 41 Encounter Details Date Type Department Care Team (Late st Contact Info) Description 02/16/2021 11:30 AM CDT Infusion [facility] 5th [place] [address] [place] [address] Crohn's disease of small intestine [...] on file Legal Sex Female 7:54 PM STATE EPIDEMIOLOGIST Gender Identity Not on file Sexual Orientation Not on file documented as of this encounter Last Filed Vital Signs Vital Sign Reading Time Taken Comments Blood Pressure 113/69 02/16/2021 12:30 PM CDT Pulse 83 02/16/2021 12:30 PM CDT Temperature - - Respiratory Rate - - Oxygen Saturation - - Inhaled Oxygen Concentration - - Weight - - Height - - Body Mass Index - - documented in this encounter Progress Notes * Cynthia Mendez RN - 02/16/2021 11:30 AM CDT Pt to infusion center for Entyvio. VSS. Tolerated infusion without adverse reaction. Follow up scheduled in 4 weeks. documented in this encounter Plan of Treatment Not on file documented as of this encounter Procedures Procedure Name Priority Date/Time Associated Diagnosis Comments CBC WITH AUTO DIFFERENTIAL Routine 02/16/2021 11:31 AM CDT Crohn's disease of small intestine with other complication (HCC) COMPREHENSIVE METABOLIC PANEL Routine 02/16/2021 11:31 AM CDT Crohn's disease of small intestine with other complication (HCC) documented in this encounter Results * (ABNORMAL) CBC with auto differential (02/16/2021 11:31 AM CDT) White Blood Count 13.3(H) 3.6 - 11.2 K/uL [facility] RBC 3.88 3.63 - 4.92 M/uL [facility] Hemoglobin 10.7(L) 11.9 - 15.5 g/dL [facility] Hematocrit 32.3(L) 36.1 - 44.3 % [facility] MCV 83.1 80.0 - 97.6 fL [facility] MCH 27.6 26.7 - 33.7 pg [facility] MCHC 33.2 32.7 - 35.5 g/dL [facility] RBC Dist Width 14.8 12.3 - 17.0 % [facility] Platelet Count 309 140 - 440 K/uL [facility] MPV 9.1 6.8 - 10.4 fL [facility] Neutrophils % 69.2 38.7 - 74.5 % [facility] Lymphocyte % 25.3 20.0 - 54.3 % [facility] Monocytes % 3.7(L) 4.3 - 13.5 % [facility] Eosinophils % 1.2 0.0 - 6.0 % [facility] Basophil % 0.6 0.0 - 3.0 % [facility] Absolute Neutrophil 9.2(H) 1.8 - 6.6 K/uL [facility] Absolute Lymphocyte 3.4(H) 0.8 - 3.3 K/uL [facility] Absolute Monocyte 0.5 0.2 - 1.2 K/uL [facility] Absolute Eosinophil 0.2 0.0 - 0.5 K/uL [facility] Absolute Basophil 0.1 0.0 - 0.2 K/uL [facility] Nucleated RBC % 0.0 0.0 - 0.4 /100 WBC [facility] Blood specimen (specimen) 02/16/2021 11:31 AM CDT 02/16/2021 12:07 PM CDT us Trent Severino MD LAB BLOOD ORDERABLES Final Re sult [facility] * (ABNORMAL) Comprehensive metabolic panel (02/16/2021 11:31 AM CDT) Total Protein 6.9 6.1 - 8.4 g/dL [facility] Albumin 3.5 3.5 - 5.2 g/dL [facility] Calcium 9.4 8.6 - 10.3 mg/dL [facility] BUN 7 7 - 23 mg/dL [facility] Total Bilirubin 0.21 0.20 - 1.40 mg/dL [facility] Alk Phos, Total 76 35 - 129 IU/L [facility] AST (SGOT) 10(L) 11 - 47 IU/L [facility] ALT (SGPT) 7 6 - 53 IU/L [facility] Comment:Repeated and Verifie d Creatinine 0.53(L) 0.60 - 1.10 mg/dL [facility] Sodium 136 135 - 145 mmol/L [facility] Potassium 3.6 3.3 - 5.1 mmol/L [facility] Chloride 101 95 - 107 mmol/L [facility] CO2 Content 22 21 - 29 mmol/L [facility] Glucose 86 64 - 99 mg/dL [facility] Comment: NONFASTING GLUCOSE RANGE = 64-199 mg/dL FASTING GLUCOSE 64 - 99 = NORMAL FASTING GLUCOSE 100 - 125 = IMPAIRED FASTING GLUCOSE FASTING GLUCOSE >=126 = PROVISIONAL DIAGNOSIS OF DIABETES eGFR >90.0 >60.0 mL/min/1.7 3 m2 [facility] Comment:eGFR calculated for Tvx-Ansrnre-Dlsyhdllr eGFR >90.0 >60.0 mL/min/1.7 3 m2 [facility] Comment:eGFR calculated for -Americans Blood specimen (specimen) (Blood, Venous) 02/16/2021 11:31 AM CDT 02/16/2021 12:07 PM CDT Trent Severino MD LAB BLOOD [...] mL/hr, Administer over 30 Minutes, Once, On Fri02/16/21 at 1230, For 1 doseIndications:Crohn's disease of small intestine with other complication (HCC) New Bag 02/16/2021 11:55 AM CDT 300 mg 510 mL/hr documented in this encounter Orders Medications Ordered That Jonathan ht Not Have Been Administered Count Last Ordered Date First Ordered Date vedolizumab (ENTYVIO) 300 mg in sodium chloride 0.9% 250 mL IVPB 1 02/16/2021 Nursing Count Last Ordered Date First Orde red Date DAILY WEIGHTS 1 02/16/2021 ONCBCN NO PREMEDS NEEDED 1 02/16/2021 ONCBCN NURSING COMMUNICATION [id number] 1 1 04/18/2020 VITAL SIGNS PRE-INFUSION 1 02/16/2021 documented in this encounter Care Teams Back Hand Relationship Specialty Start Date End Date Judy Fishman NP [address] [id number] PCP - General 07/31/18 Jessica Martínez MD [address] [id number] Consulting Physician Obstetrics and Gynecology 11/16/20 documented as of this encounter
--- OUTSIDE RECORDS SUMMARY | 2024-04-11 06:16 | XMS_ITS | Encounter Summary ---
Author Organization [facility] Address [address] [place] [address] Phone Care Team Providers Care Shake Sawyer Name Role Phone Judy Fishman NP Primary Care Provider + Jessica Martínez MD Unavailable [phone] Reason for Referral * Diagnostic Imaging (Routine) - Closed Specialty Diagnoses / Procedures Referred By Contflora t Referred To Contact Diagnoses Obesity affecting , antepartum Procedures US Ob Follow Up Judy Polanco NP [address] [facility] [phone] [place] [address] Phone: tel: fax: [facility] (All Locations) Referral ID Status Reason Start Date Expiration Date Visits Re quested Visits Authorized [id number] Closed 02/14/2021 03/16/2022 1 6 Reason for Visit * Reason Comments High Risk Gestation Encounter Details Date Type Department Care Team (Late st Contact Info) Description 02/14/2021 8:30 AM CDT Office Visit [facility] Maternal- Medicine [address] [facility] 7th Floor [address] [place] [address] Judy Polanco NP [address] [facility] [phone] [place] [address] Crohn's disease of small intestine with other complication (HCC) (Primary Dx); Obesity affecting , antepartum; Prediabetes; resulting from assisted reproductive technology, antepartum; Supervision of high-risk , unspecified trimester; Excessive growth affecting management of in second trimester, single or unspecified fetus Social History Tobacco Use Types Packs/Day Years Used Date Smoking Tobacco: Former Cigarettes Q uit: 10/03/2020 Smokeless Tobacco: Never Alcohol Use Standard Drinks/Week Comments Yes 2 (1 standard drink = 0.6 oz pur e alcohol) Comments Yes Sex and Gender Information Value Date Recorded Sex Assigned at Not on file Legal Sex Female 7:54 PM NURSE PRACTITIONER ADULT Gender Identity Not on file Sexual Orientation Not on file documented as of this encounter Last Filed Vital Signs Vital Sign Reading Time Taken Comments Blood Pressure 120/75 02/14/2021 8:35 AM CDT Pulse 89 02/14/2021 8:35 AM CDT Temperature - - Respiratory Rate - - Oxygen Saturation 97% 02/14/2021 8:35 AM CDT Inhaled Oxygen Concentration - - Weight 113.9 kg (251 lb) 02/14/2021 8:35 AM CDT Height 157.5 cm (5' 2 ) 02/14/2021 8:35 AM CDT Body Mass Index 45.91 02/14/2021 8:35 AM CDT documented in this encounter Progress Notes * Judy Polanco, BINU - 02/14/2021 8:30 AM CDT [facility] Return Visit 02/14/2021 Liliana Mancilla is a 30 y.o. at 21w5d who is here for a return OB visit. Her is complicated by Crohn's disease, IVF , BMI 42, and history of prediabetes. Subjective: Feels well today. She denies cramping, loss of fluid, or vaginal bleeding. Denies symptoms of flare. Continues to struggle with sleep. Objective: BP 120/75 Pulse 89 Ht 157.5 cm (5' 2 ) Wt 251 lb (113.9 kg) LMP 09/15/2020 (Exact Date) SpO2 97% BMI 45.91 kg/m?? General: NAD Abdomen: Soft, gravid, NT, FHR + Extremities: WWP, no edema Ultrasound: 02/14/2021 LGA, anatomy complete and wnl- see finalized US report Assessment/Plan: Liliana Mancilla is a 30 y.o. at 21w5d with a complicated by the following: Problem [...] after 12 weeks Relevant Orders US Ob Follow Up resulting from assisted reproductive technology, antepartum Overview Previously counseled [] ECHO- ordered Excessive growth affecting management of in second trimester Overview 02/14/2021 anataomy with growth at the 98%, dating by IVF S/p normal early gtt, accu check in clinic 02/14/2021 117 (2 hour PC breakfast) [] normal gtt 24-28 weeks Supervision of high-risk , unspecified trimester Overview [x] Full MFM Care; [] Red Team [x] Blue Team Referring Provider: JESSICA Severino [phone] [facility] Jessica Mauricio: [phone]; [x] Dating Criteria: Embryo Transfer 10/03/20 with JONNATHAN 06/21/21 [x] Labs: Lab Results Component Value Date ABORH B Positive 11/24/2020 IDCOOMB Negative 11/24/2020 [id number] Nonreactive 11/24/2020 LABRPR Nonreactive 11/24/2020 RUBELIGG Reactive 11/24/2020 HEPBSAG Nonreactive 11/24/2020 HGB 11.1 (L) 11/24/2020 HCT 35.4 (L) 11/24/2020 LABPLAT 360 11/24/2020 [x] GC/CT- Neg/Neg [x] Genetic Screening: [place] Low Risk [x] Early 1hr GTT (if indicated) - 12/08: 133 [x] UCx: Negative [x] Pap: 01/2019: negative [x] LD ASA (if indicated) starting at 12 weeks: indicated [] EPDS [ ]; PNBHS referral (if indicated) 2nd Tri Labs: [x] Anatomy ultrasound [] CBC/1hr gtt at 24-28wks: discussed for 28 weeks [x] Flu Shot (Dec-Mar): pt receiving vaccine after infusion 02/14 [] Tdap (27-36wks): [x] COVID Vaccine: s/p dose #1 and #2 3rd Tri Labs: [] CBC/HIV/RPR: [] GBS: [] COVID testing: Counselling [] MOD: [x] Place of delivery: [facility] [] MOC: [] Method of feeding: [] Fabric Pattern Grader: [] PP Depression Discussed: Specialty Infusion Treatment [...] CS in the setting of perianal disease. #classes/books - resources provided today via [employer] AGt Precautions reviewed. DIEUDONNE Raphael * Felicia Bianchi - 02/14/2021 8:30 AM CDT Accu-check done today AM- read 117 documented in this encounter Plan of Treatment Not on file documented as of this encounter Results * US Ob Follow Up (03/16/2021 8:33 AM NURSE PRACTITIONER ADULT) Fetus# Fetus1 VIEWPOINT Placenta Details anterior, Previa-no VIEWPOINT Estimated Weight 1,213 g&grams VIEWPOINT Presentation Vertex VIEWPOINT Anatomical Region Laterality Modality Abdomen N/A Ultrasound 03/16/2021 8:39 AM NURSE PRACTITIONER ADULT us Judy Polanco MS SQL SERVER DEVELOPER IMG OB US PROCEDURE S Final Result documented in this encounter Visit Diagnoses Diagnosis Crohn's disease of small intestine with other complication (HCC)- Primary Obesity affecting , antepartum Prediabetes Other abnormal glucose resulting from assisted reproductive technology, antepartum Supervision of high-risk , unspecified trimester Excessive growth affecting management of in second trimester, single or unspecified fetus documented in this encounter Care Teams Shake Sawyer Relationship Specialty Start Date End Date Judy Fishman NP [address] [address] PCP - General 07/31/18 Jessica Martínez MD [address] [address] Consulting Physician Obstetrics and Gynecology 11/16/20 documented as of this encounter
--- OUTSIDE RECORDS SUMMARY | 2024-04-11 06:16 | XMS_ITS | Encounter Summary ---
Author Organization [facility] Address [address] [place] [address] Phone Care Team Providers Care Paint Dipper Name Role Phone Judy Fishman NP Primary Care Provider + Encounter Details Date Type Department Care Team (Late st Contact Info) Description 09/25/2020 8:00 AM CDT Telemedicine [facility] Gastroenterology [address] [facility] 2nd Floor [address] [place] [address] Lizz Clark NP [address] [place] [address] Crohn's disease of small intestine with other complication (CMS/HCC) (Primary Dx); High risk medications (not anticoagulants) long-term use Social History Tobacco Use Types Packs/Day Years Used Date Smoking Tobacco: Every Day Cigarettes Smokeless Tobacco: Never Alcohol Use Standard Drinks/Week Comments Yes 2 (1 standard drink = 0.6 oz pur e alcohol) Comments Unknown Sex and Gender Information Value Date Recorded Sex Assigned at Not on file Legal Sex Female 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 During thevisit, I was located in the office and the patient was located at home in the state of [place]. The patient visit started at 0814 and ended at 0819. My total encounter time on 09/25/2020 was 15 minutes which was spent in the activities documented in the note. This includes time spent prior to the visit and after the visit in direct care of the patient. This time does not include time spent in any separately reportable services.. The patient: has been informed that the visit may not be secure and acknowledged the information. The option of participating in a telephone or video visit during the COVID-19 public [facility] emergencywas explained to them. After being given an opportunity to ask questions about and discuss this type of visit, they verbally consented to proceeding with the telephone/video visit and understand thatthis service replaces an office visit and they may be billed and/or responsible for any applicable copayments. Lizz Clakr NP Referred here Primary Care Physician: Judy Fishman NP Consult requested by: No ref. provider found Chief Complaint: Crohn's disease HPI Liliana Mancilla, is a 30 y.o.female who presents for follow up of her ileal crohn's disease diagnosed in July 2018 after presentation with weight loss and diarrhea. She was started on entyvio in December 2018. She was noted to have a low entyvio level in March 2020 and she was advanced to every 6 week infusions. Since her last office visit 09/2019 she has been further advanced to every 4 weeks. Her last colonoscopy was at time of diagnosis by Dr. Gomez at an outside hospital. She has a family history of crohn's with a paternal aunt and cousins with a history of Crohn's. MRE 03/2019 showed improvement in terminal ieal inflammation. Entyvio level repeated 08/17/2019 and was 14. MRE 12/14 020 normal . Calprotectin level . She wanted to discuss clearance today for upcoming fertility treatment. ?? Overall, she is feeling well. Has noted improvement in symptoms since advancement to every 4 week entyvio. No longer having anticipatory symptoms. In general, having 1-2 stools daily on average. Denies any hematochezia or urgency of stool Denies any abdominal pain.. Denies any nausea or vomiting. Denies any joint pain. ?? No past medical history on file. Past Surgical History: Procedure Laterality Date ??? ANKLE FRACTURE SURGERY 2008 ??? CHOLECYSTECTOMY 2017 Patient Active Problem List Diagnosis Date Noted ??? NAFLD (nonalcoholic fatty liver disease) 06/12/2020 ??? BMI 40.0-44.9, adult (CMS/HCC) 06/12/2020 ??? Prediabetes 06/12/2020 ??? High risk medications (not anticoagulants) long-term use 03/30/2019 ??? Healthcare maintenance 02/14/2019 ??? Crohn's disease of small intestine with other complication (CMS/HCC) 12/01/2018 Overview Note: Year of diagnosis: 2018 Year symptoms began: 2018 Phenotype: Inflammatory (B1) without perianal disease. Distribution: ileal (L1) without upper GI disease (L4). Extraintestinal manifestations: none Complications: none Prior treatments: entocort, flagyl Current treatment: entyvio (started 12/2018) Prior surgeries: none Endoscopies: Colonoscopy 07/2018 at [facility] showed terminal ileitis Imaging: MRE 03/2019 Interval improvement of distal terminal ileum wall thickening. No new areas of small bowel wall thickening. No fluid collections or evidence of penetrating disease MRE 11/2018 Slight wall thickening of the distalmost ileum with associated minimal active inflammation, without penetrating disease or stricture. ??? Iron deficiency anemia due to chronic blood loss 11/13/2018 ??? Chronic diarrhea 11/08/2018 Current Outpatient Medications Medication Sig Dispense Refill ??? no122/iron/folic acid ( MULTI ORAL) Take by mouth daily No current facility-administered medications for this visit. Cefdinir, Clindamycin, Povidone-iodine, Sulfa (sulfonamide antibiotics), Unclassified drug, and Morphine Family History Problem Relation Age of Onset ??? Diabetes Mother ??? Hypertension Mother ??? Cancer Mother's Sister ??? Cancer Maternal Grandmother ??? Cancer Maternal Grandfather ??? Diabetes Maternal Grandfather ??? Cancer Paternal Grandmother ??? Ulcerative colitis Paternal cousin ??? Crohn's disease Paternal cousin Social History Tobacco Use ??? Smoking status: Current Every Day Smoker Packs/day: 0.50 ??? Smokeless tobacco: Never Used Substance Use Topics ??? Alcohol use: Yes Alcohol/week: 2.0 standard drinks Types: 2 Glasses of wine per week ??? Drug use: Never ROS Constitutional: Negative. HENT: Negative for sore throat and trouble swallowing. Eyes: Negative. Respiratory: Negative. Cardiovascular: Negative. Gastrointestinal: See HPI Endocrine: Negative. Genitourinary: Negative. Musculoskeletal: Negative. Skin: Negative. Allergic/Immunologic: Negative. Neurological: Negative. Hematological: Negative. Psychiatric/Behavioral: Negative. Breast: Negative. All other systems negative. Vital Signs Deferred due to telemedicine visit. Physical Exam GENERAL: Well-appearing, in no acute distress. Results Results for orders placed or performed in visit on 09/14/20 Calprotectin, fecal Result Value Ref Range Calprotectin, Stool 11 mcg/g COPY(IES) SENT TO: Result Value Ref Range COPY(IES) SENT TO: Assessment/Plan Crohn's disease Has noted resolution of anticipatory symptoms since advancement of entyvio to every 4 weeks. In general, 1-2 stools daily. Denies any hematochezia. -continue entyvio -okay to proceed with fertility treatments -continue safety labs -she is up to date on recommended vaccinations -follow up in 3 months ?? High risk medications High risk medications: As with all patients [...] us withany questions regarding new symptom development. Orders No orders of the defined types were placed in this encounter. Explained to patient that these recommendations are given taking into account given unique circumstances around evolving COVID-19 pandemic. We are taking into account considerations including patientcontacts, age, underlying medical diseases, travel history, and best estimate regarding acuity of this problem when determining the best time for patient to present live in our clinical setting. * Lizz Clark NP - 09/25/2020 8:00 AM CDT To: Dr. Jessica Martínez [facility] From: Lizz Clark [facility] [email or web address] Dear Dr. Martínez, I am writing you this letter today on behalf of Liliana Mancilla 1990. I saw her today in clinic for a follow up visit. She is doing quite well in regards to her Crohn's disease. She is on entyvio every 4 weeks. Her MRE in December was normal and in remission. Recent calprotectin test normal. It appears she is currently in clinical remission. She has been cleared for her upcoming enbryo transfer and it is okay to proceed with this. Sincerely, Lizz Clark NP documented in this encounter Plan of Treatment Not on file documented as of this encounter Visit Diagnoses Diagnosis Crohn's disease of small intestine with other complication (HCC)- Primary High risk medications (not anticoagulants) long-term use Encounter for long-term (current) use of other medications documented in this encounter Care Teams Paint Dipper Relationship Specialty Start Date End Date Judy Fishman NP [address] [place] [address] PCP - General 07/31/18 documented as of this encounter
--- OUTSIDE RECORDS SUMMARY | 2024-04-11 06:16 | XMS_ITS | Encounter Summary ---
Author Organization [facility] Address [address] [place] [address] Phone Care Team Providers Care Store Warehouse Associate Name Role Phone Kye Judy Brittani FLAG FOOTBALL COACH Primary Care Provider + Encounter Details Date Type Department Care Team (Late st Contact Info) Description 11/01/2020 Telephone [facility] Gastroenterology [facility] 8th [place] [address] [place] [address] Dianelys Espinoza Social History Tobacco Use Types Packs/Day Years Used Date Smoking Tobacco: Every Day Cigarettes Smokeless Tobacco: Never Alcohol Use Standard Drinks/Week Comments Yes 2 (1 standard drink = 0.6 oz pur e alcohol) Comments Unknown Sex and Gender Information Value Date Recorded Sex Assigned at Not on file 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 6 weeks [address] Severino recommended high school library media specialist when she did get and she is asking for referral. Will place referral to MFM group. She will be released from IVF after 11/14 and they advised for her to f/u with an OB 1-3 weeks after that. documented in this encounter Plan of Treatment Not on file documented as of this encounter Visit Diagnoses Not on filedocumented in this encounter Care Teams Store Warehouse Associate Relationship Specialty Start Date End Date Judy Fishman NP [address] [address] PCP - General 07/31/18 documented as of this encounter
--- OUTSIDE RECORDS SUMMARY | 2024-04-11 06:16 | XMS_ITS | Encounter Summary ---
Author Organization [facility] Address [address] [place] [address] Phone Care Team Providers Care Chain Sales Consultant Name Role Phone Judy Fishman NP Primary Care Provider + Jessica Martínez MD Unavailable [phone] Reason for Visit * Episode Based Medications (Routine) - Pending Review Specialty Diagnoses / Procedures Referred By Contac t Referred To Contact Diagnoses Crohn's disease of small intestine with other complication (HCC) Procedures CT INJECTION, VEDOLIZUMAB Trent Severino MD [address] [place] [address] Phone: tel: fax: [facility] Infusion Therapy [facility] 5th [place] [address] [place] [address] Phone: tel: fax: Referral ID Status Reason Start Date Expiration Date V isits Requested Visits Authorized [id number] Pending Review 09/26/2021 09/26/2022 41 [phone] Encounter Details Date Type Department Care Team (Late st Contact Info) Description 11/24/2020 11:30 AM CDT Infusion [facility] Infusion Therapy [address] [facility] 5th [place] [address] [place] [address] Crohn's disease of small intestine [...] on file Legal Sex Female 7:54 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 No S/S of adverse reaction. Dominic Rios RN documented in this encounter [...] mL/hr, Administer over 30 Minutes, Once, On Fri11/24/20 at 1230, For 1 doseIndications:Crohn's disease of small intestine with other complication (HCC) New Bag 11/24/2020 11:20 AM CDT 300 mg 510 mL/hr documented in this encounter Orders Medications Ordered That Jonathan ht Not Have Been Administered Count Last Ordered Date First Ordered Date vedolizumab (ENTYVIO) 300 mg in sodium chloride 0.9% 250 mL IVPB 1 11/24/2020 Nursing Count Last Ordered Date First Orde red Date ONCBCN NO PREMEDS NEEDED 1 11/24/2020 VITAL SIGNS PRE-INFUSION 1 11/24/2020 documented in this encounter Care Teams Chain Sales Consultant Relationship Specialty Start Date End Date Judy Fishman NP [address] [address] PCP - General 07/31/18 Jessica Martínez MD [address] [address] Consulting Physician Obstetrics and Gynecology 11/16/20 documented as of this encounter
--- OUTSIDE RECORDS SUMMARY | 2024-04-11 06:16 | XMS_ITS | Encounter Summary ---
Author Organization [facility] Address [address] [place] [address] Phone Care Team Providers Care Market Stall Vendor Name Role Phone Judy Fishman TIE BUCKER Primary Care Provider + Jessica Martínez MD Unavailable [phone] Encounter Details Date Type Department Care Team (Late st Contact Info) Description 02/15/2021 Telephone [facility] Pediatric Cardiology [facility] 2nd Floor [address] [place] [address] Laura Perdomo BS Social History Tobacco Use Types Packs/Day Years Used Date Smoking Tobacco: Former Cigarettes Q uit: 10/03/2020 Smokeless Tobacco: Never Alcohol Use Standard Drinks/Week Comments Yes 2 (1 standard drink = 0.6 oz pur e alcohol) Comments Yes Sex and Gender Information Value Date Recorded Sex Assigned at Not on file Legal 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 Female 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 Gender Identity Not on file Sexual Orientation Not on file documented as of this encounter Miscellaneous Notes * Telephone Encounter - Laura Perdomo BS - 02/15/2021 12:59 PM CDT Left voice mail requesting call back to schedule echo documented in this encounter Plan of Treatment Not on file documented as of this encounter Visit Diagnoses Not on filedocumented in this encounter Care Teams Market Stall Vendor Relationship Specialty Start Date End Date Judy Fishman NP [address] [id number] PCP - General 07/31/18 Jessica Martínez MD [address] [address] Consulting Physician Obstetrics and Gynecology 11/16/20 documented as of this encounter
--- OUTSIDE RECORDS SUMMARY | 2024-04-11 06:16 | XMS_ITS | Encounter Summary ---
Author Organization [facility] Address [address] [place] [address] Phone Care Team Providers Care Hand Compositor Name Role Phone Judy Fishman NP Primary Care Provider + Jessica Martínez MD Unavailable [phone] Encounter Details Date Type Department Care Team (Late st Contact Info) Description 01/12/2021 Telephone [facility] Maternal- Medicine [address] [facility] 7th Floor [address] [place] [address] Pauline Campos RN Social History Tobacco Use Types Packs/Day Years Used Date Smoking Tobacco: Former Cigarettes Q uit: 10/03/2020 Smokeless Tobacco: Never Alcohol Use Standard Drinks/Week Comments Yes 2 (1 standard drink = 0.6 oz pur e alcohol) Comments Yes Sex and Gender Information Value Date Recorded Sex Assigned at Not on file Legal Sex Female 7:54 PM 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 She stated Simone called her and told her she could have an ultrasound whenever she wanted for reassurance. I reviewed her chart and spoke with Dr. Monte who was the provider that spoke with her on 01/06 regarding her being sick. I let Dr. Monte know that Duncan is scheduled for an appt with Simone on Wednesday 01/17. I discuss either doppling heart tones or a bedside ultrasound for reassurance. Dr. Monte agreed. I called Duncan and explained the plan and she verbalized understanding and stated that would be great. documented in this encounter Plan of Treatment Not on file documented as of this encounter Visit Diagnoses Not on filedocumented in this encounter Care Teams Hand Compositor Relationship Specialty Start Date End Date Judy Fishman NP [address] [address] PCP - General 07/31/18 Jessica Martínez MD [address] [address] Consulting Physician Obstetrics and Gynecology 11/16/20 documented as of this encounter
--- OUTSIDE RECORDS SUMMARY | 2024-04-11 06:16 | XMS_ITS | Encounter Summary ---
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 Gender Identity Not on file Sexual Orientation Not on file documented as of this encounter Plan of Treatment Not on file documented as of this encounter Procedures Procedure Name Priority Date/Time Associated Diagnosis Comments EGFR Routine 11/24/2020 2:37 PM CDT High-risk in first trimester Supervision of high-risk , unspecified trimester Crohn's disease of small intestine with other complication (HCC) DIFFERENTIAL AUTO Routine 11/24/2020 2:3 7 PM CDT High-risk in first trimester Supervision of high-risk , unspecified trimester Crohn's disease of small intestine with other complication (HCC) HIV 1/2 ANTIBODY PLUS P24 ANTIGEN Routine 11/24/2020 2:37 PM CDT High-risk in first trimester Supervision of high-risk , unspecified trimester Crohn's disease of small intestine with other complication (HCC) CBC WITH AUTO DIFFERENTIAL Routine 11/24/2020 2:37 PM CDT High-risk in first trimester Supervision of high-risk , unspecified trimester Crohn's disease of small intestine with other complication (HCC) HEPATITIS C ANTIBODY Routine 11/24/2020 2:37 PM CDT High-risk in first trimester Supervision of high-risk , unspecified trimester Crohn's disease of small intestine with other complication (HCC) OBSTETRIC PANEL Routine 11/24/2020 2:37 PM CDT High-risk in first trimester Supervision of high-risk , unspecified trimester Crohn's disease of small intestine with other complication (HCC) VITAMIN D 25 HYDROXY Routine 11/24/2020 2:37 PM CDT High-risk in first trimester Supervision of high-risk , unspecified trimester Crohn's disease of small intestine with other complication (HCC) RUBELLA IGG Routine 11/24/2020 2:37 PM CDT High-risk in first trimester Supervision of high-risk , unspecified trimester Crohn's disease of small intestine with other complication (HCC) RPR Routine 11/24/2020 2:37 PM CDT High-risk in first trimester Supervision of high-risk , unspecified trimester Crohn's disease of small intestine with other complication (HCC) HEPATITIS B SURFACE ANTIGEN Routine 11/24/2020 2:37 PM CDT High-risk in first trimester Supervision of high-risk , unspecified trimester Crohn's disease of small intestine with other complication (HCC) FOLATE Routine 11/24/2020 2:37 PM CDT High-risk in first trimester Supervision of high-risk , unspecified trimester Crohn's disease of small intestine with other complication (HCC) FERRITIN Routine 11/24/2020 2:37 PM CDT High-risk in first trimester Supervision of high-risk , unspecified trimester Crohn's disease of small intestine with other complication (HCC) VITAMIN B12 Routine 11/24/2020 2:37 PM CDT High-risk in first trimester Supervision of high-risk , unspecified trimester Crohn's disease of small intestine with other complication (HCC) COMPREHENSIVE METABOLIC PANEL Routine 11/24/2020 2:37 PM CDT High-risk in first trimester Supervision of high-risk , unspecified trimester Crohn's disease of small intestine with other complication (HCC) TYPE AND SCREEN Routine 11/24/2020 11:15 AM CDT High-risk in first trimester Supervision of high-risk , unspecified trimester Crohn's disease of small intestine with other complication (HCC) documented in this encounter Results * (ABNORMAL) eGFR (11/24/2020 2:37 PM CDT) Pathologist [facility] eGFR >90(H) 90 - 130 mL/min/1.7 3 m2 [facility] Comment: Interpretive Data Reference Interval Normal ?>/= 90 mL/min/1.73m2 Mildly decreased* ? 60 - 89 mL/min/1.73m2 Mildly to moderately decreased ?45 - 59 mL/min/1.73m2 Moderately to severely decreased ??30 - 44 mL/min/1.73m2 Severely decreased ?15 - 29 mL/min/1.73m2 Kidney Failure ?< 15 ??mL/min/1.73m2 *Relative to young adult level Estimated glomerular filtration rate is determined by the CKD-EPI equation recommended by the National Kidney Foundation (KDIGO 2012 Clinical Practice Guideline for the Evaluation and Management of Chronic Kidney Disease. Kidney Intnl Suppl Apr 2012;3:1). The CKD-EPI equation should not be used for patients with unstable renal function and has not been validated in children and those over 70. Current interpretive data was last reviewed 2020 Blood specimen (specimen) 11/24/2020 2:37 PM CDT 11/24/2020 2:56 PM CDT Sharon Barry MD LAB BLOOD ORDERAB LES Final Result Performing Organization Address [facility] de Phone Number [facility] [employer] [place] [address] * Rubella IgG (11/24/2020 2:37 PM CDT) Rubella IgG Reactive [facility] Comment: Interpretive Data Nonreactive: ??No detectable antibody to rubella. Such individuals are presumed to be uninfected with rubella and to be susceptible to primary infection. Equivocal: Presence or absence of detectable antibody to rubella cannot be determined and test should be repeated. ?? Reactive: Indicates the presence of detectable antibody to rubella. ??Indicative of current or past infection or vaccination. Current Interpretive Data was last revised on 2020. Blood specimen (specimen) 11/24/2020 2:37 PM CDT 11/24/2020 2:57 PM CDT Sharon Barry MD LAB MICROBIOLOGY - GENERAL ORDERABLES Final Result Performing Organization Address [facility] de Phone Number [facility] [place] [address] * RPR (11/24/2020 2:37 PM CDT) RPR Nonreactive Nonreactive [facility] Blood specimen (specimen) 11/24/2020 2:37 PM CDT 11/24/2020 2:57 PM CDT us Sharon Barry MD LAB MICROBIOLOGY - GENERAL ORDERABLES Final Result [facility] Department [place] [address] * (ABNORMAL) Differential, auto (11/24/2020 2:37 PM CDT) Neutrophil abs 7.7(H) 1.7 - 6.5 K/cumm [facility] Imm gran abs 0.1 0.0 - 0.1 K[facility] Lymphocyte abs 3.4(H) 0.8 - 3.3 K/cumm [facility] Monocyte abs 0.7 0.2 - 0.8 K/cumm [facility] Eosinophil abs 0.4 0.0 - 0.5 K/cumm [facility] Basophil abs 0.0 0.0 - 0.1 K/cumm [facility] Neutrophil pct 62.6 % [facility] Comment: Interpretive Data Percent cell count reference ranges are not reported, since discordance with absolute values may lead to misinterpretation of CBC data. Current Interpretive Data was last revised on 2017. Imm gran pct 0.5 % [facility] Comment: Interpretive Data Percent cell count reference ranges are not reported, since discordance with absolute values may lead to misinterpretation of CBC data. Current Interpretive Data was last revised on 2017. Lymphocyte pct 28.1 % [facility] Comment: Interpretive Data Percent cell count reference ranges are not reported, since discordance with absolute values may lead to misinterpretation of CBC data. Current Interpretive Data was last revised on 2017. Monocyte pct 5.6 % [facility] Comment: Interpretive Data Percent cell count reference ranges are not reported, since discordance with absolute values may lead to misinterpretation of CBC data. Current Interpretive Data was last revised on 2017. Eosinophil pct 2.9 % [facility] Comment: Interpretive Data Percent cell count reference ranges are not reported, since discordance with absolute values may lead to misinterpretation of CBC data. Current Interpretive Data was last revised on 2017. Basophil pct 0.3 % [facility] Comment: Interpretive Data Percent cell count reference ranges are not reported, since discordance with absolute values may lead to misinterpretation of CBC data. Current Interpretive Data was last revised on 2017. Blood specimen (specimen) 11/24/2020 2:37 PM CDT 11/24/2020 2:57 PM CDT us Sharon Barry MD LAB BLOOD ORDERAB LES Final Result [facility] Department [place] [address] * (ABNORMAL) CBC with auto differential (11/24/2020 2:37 PM CDT) WBC 12.3(H) 3.8 - 9.9 K/cumm [facility] Hgb 11.1(L) 11.9 - 15.5 g/dL [facility] Hct 35.4(L) 35.6 - 45.5 % [facility] Plt 360 150 - 400 K/cumm [facility] MPV 10.5 9.1 - 12.3 fL [facility] RBC 4.13 3.90 - 5.20 M/cumm [facility] MCV 85.7 81.3 - 96.4 fL [facility] MCH 26.9(L) 27.1 - 33.3 pg [facility] MCHC 31.4(L) 32.3 - 35.7 g/dL [facility] RDW CV 13.3 11.1 - 14.9 % [facility] RDW SD 41.5 35.7 - 48.1 fL [facility] NRBC abs 0.00 0.00 - 0.01 K/cumm [facility] Blood specimen (specimen) 11/24/2020 2:37 PM CDT 11/24/2020 2:57 PM CDT Sharon Barry MD LAB BLOOD ORDERAB LES Final Result Performing Organization Address [facility] Co de Phone Number [facility] [place] [address] * Hepatitis B Surface Antigen (11/24/2020 2:37 PM CDT) Pathologist [facility] HepBsAg Nonreactive Nonreactive [facility] Blood specimen (specimen) 11/24/2020 2:37 PM CDT 11/24/2020 2:57 PM CDT Sharon Barry MD LAB MICRO BIOLOGY - GENERAL ORDERABLES Edited Result - Final Performing Organization Address [facility] [place] [address] * HIV 1/2 Antibody plus p24 Antigen (11/24/2020 2:37 PM CDT) [facility] HIV 1/2 ab + p24 ag Nonreactive Nonreactive [facility] Comment: Nonreactive for HIV-1 antigen and HIV-1/HIV-2 antibodies. No laboratory evidence of HIV infection. If acute HIV infection is suspected, consider testing for HIV-1 RNA. Blood specimen (specimen) 11/24/2020 2:37 PM CDT 11/24/2020 2:57 PM CDT Sharon Barry MD LAB MICROBIOLOGY - GENERAL ORDERABLES Final Result Performing Organization Address [facility] [place] [address] * Hepatitis C antibody (11/24/2020 2:37 PM CDT) [facility] Hep C Ab Nonreactive Nonreactive [facility] Comment:Antibodies to HCV no t detected. Does NOT exclude the possibility of recent exposure to HCV. Blood specimen (specimen) 11/24/2020 2:37 PM CDT 11/24/2020 2:57 PM CDT Sharon Barry MD LAB MICRO BIOLOGY - GENERAL ORDERABLES Edited Result - Final Performing Organization Address [facility]/ZIP Co de Phone Number [facility] [place] [address] * Vitamin B12 (11/24/2020 2:37 PM CDT) Vitamin B12 328 230 - 1,250 pg/mL [facility] Blood specimen (specimen) 11/24/2020 2:37 PM CDT 11/24/2020 2:56 PM CDT Sharon Barry MD LAB BLOOD ORDERAB LES Final Result Performing Organization Address [facility] Co de Phone Number [facility] [place] [address] * Folate (11/24/2020 2:37 PM CDT) Folic acid 19.8 >=5.0 ng/mL [facility] Blood specimen (specimen) 11/24/2020 2:37 PM CDT 11/24/2020 2:56 PM CDT Sharon Barry MD LAB BLOOD ORDERAB LES Final Result Performing Organization Address City/[facility]/[place] [address] * Vitamin D 25 hydroxy (11/24/2020 2:37 PM CDT) Vitamin D 25-OH 39 30 - 80 ng/mL [facility] Blood specimen (specimen) 11/24/2020 2:37 PM CDT 11/24/2020 2:56 PM CDT Sharon Barry MD LAB BLOOD ORDERAB LES Final Result [facility] [place] [address] * Ferritin (11/24/2020 2:37 PM CDT) Pathologist [facility] Ferritin 125 15 - 150 ng/mL [facility] Blood specimen (specimen) 11/24/2020 2:37 PM CDT 11/24/2020 2:56 PM CDT Sharon Barry MD LAB BLOOD ORDERAB LES Final Result Performing Organization Address [facility] Co de Phone Number [facility] Department [place] [address] * (ABNORMAL) Comprehensive metabolic panel (11/24/2020 2:37 PM CDT) [facility] Sodium 139 135 - 145 mmol/L [facility] Potassium, pl 3.5 3.3 - 4.9 mmol/L [facility] Chloride 107 97 - 110 mmol/L [facility] CO2 23 22 - 32 mmol/L [facility] Anion gap 9 2 - 15 mmol/L [facility] BUN 7(L) 8 - 25 mg/dL [facility] Creatinine 0.51(L) 0.60 - 1.10 mg/dL [facility] Glucose 75 70 - 199 mg/dL [facility] Comment: Interpretive Data Fasting glucose >/= [...] 2017. Calcium 8.7 8.5 - 10.3 mg/dL [facility] Bilirubin, total <0.2 0.1 - 1.2 mg/dL [facility] Protein, pl 6.9 6.5 - 8.5 g/dL [facility] Albumin 3.7 3.5 - 5.0 g/dL [facility] Alk phos 65 40 - 130 Units/L [facility] ALT 11 7 - 45 Units/L [facility] AST 13 10 - 45 Units/L [facility] Blood specimen (specimen) 11/24/2020 2:37 PM CDT 11/24/2020 2:56 PM CDT Sharon Barry MD LAB BLOOD ORDERAB LES Final Result Performing Organization Address City/[facility]/ZIP Co de Phone Number [facility] Department [place] [address] * Type and screen (11/24/2020 11:15 AM CDT) ABO Rh B Positive [facility] Andres, indirect Negative [facility] Blood specimen (specimen) 11/24/2020 11:15 AM CDT 11/24/2020 3:28 PM CDT Sharon Barry MD LAB BLOOD BANK TE ST ORDERABLES Final Result [facility] Department [place] [address] documented in this encounter Visit Diagnoses Diagnosis High-risk in first trimester Supervision of high-risk , unspecified trimester Crohn's disease of small intestine with other complication (HCC) documented in this encounter Care Teams Stationary Equipment Mechanic Relationship Specialty Start Date End Date Judy Fishman NP [address] [address] PCP - General 07/31/18 Jessica Martínez MD [address] [place] [address] Consulting Physician Obstetrics and Gynecology 11/16/20 documented as of this encounter
--- OUTSIDE RECORDS SUMMARY | 2024-04-11 06:17 | XMS_ITS | Encounter Summary ---
Author Organization [facility] Address [address] [place] [address] Phone Care Team Providers Care Privacy Manager Name Role Phone Judy Fishman SQUARE DANCE CALLER Primary Care Provider + Reason for Visit * Episode Based Medications (Routine) - Pending Review Specialty Diagnoses / Procedures Referred By Mary roberson Referred To Contact Diagnoses Crohn's disease of small intestine with other complication (HCC) Procedures [place] INJECTION, VEDOLIZUMAB Trent Severino MD [address] [place] [address] Phone: tel: fax: [facility] Infusion Therapy [facility] 5th [place] [address] [place] [address] Phone: tel: fax: Referral ID Status Reason Start Date Expiration Date V isits Requested Visits Authorized [id number] Pending Review 09/26/2021 09/26/[phone] Encounter Details Date Type Department Care Team (Late st Contact Info) Description 07/07/2020 1:00 PM CDT Infusion [facility] Infusion Therapy [facility] 5th [place] [address] [place] [address] Crohn's disease of small intestine [...] on file 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 VSS. Tolerated infusion without adverse reaction. Follow up in 4weeks. documented in this encounter Plan of Treatment [...] mL/hr, Administer over 30 Minutes, Once, On Fri07/07/20 at 1415, For 1 doseIndications:Crohn's disease of small intestine with other complication (HCC) New Bag 07/07/2020 1:24 PM CDT 300 mg 5 10 mL/hr documented in this encounter Orders Medications Ordered That Jonathan ht Not Have Been Administered Count Last Ordered Date First Ordered Date vedolizumab (ENTYVIO) 300 mg in sodium chloride 0.9% 250 mL IVPB 1 07/07/2020 Nursing Count Last Ordered Date First Orde red Date ONCBCN NO PREMEDS NEEDED 1 07/07/2020 documented in this encounter Care Teams Privacy Manager Relationship Specialty Start Date End Date Judy Fishman NP [address] [address] PCP - General 07/31/18 documented as of this encounter
--- OUTSIDE RECORDS SUMMARY | 2024-04-11 06:17 | XMS_ITS | Encounter Summary ---
Author Organization [facility] Address [address] [place] [address] Phone Care Team Providers Care Director Of Laboratory Operations Name Role Phone Judy Fishman RUG CUTTER Primary Care Provider + Encounter Details Date Type Department Care Team (Late st Contact Info) Description 01/11/2020 Orders Only [facility] [address] [facility] [address] [place] [address] [place] [address] Trent Severino MD [address] [place] [address] Social History Tobacco Use Types Packs/Day Years Used Date Smoking Tobacco: Every Day Cigarettes Smokeless Tobacco: Never Alcohol Use Standard Drinks/Week Comments Yes 2 (1 standard drink = 0.6 oz pur e alcohol) Comments Unknown Sex and Gender Information Value Date Recorded Sex Assigned at Not on file 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
--- OUTSIDE RECORDS SUMMARY | 2024-04-11 06:17 | XMS_ITS | Encounter Summary ---
Author Organization [facility] Address [address] [place] [address] Phone Care Team Providers Care Assembler Gold Frame Name Role Phone Judy Fishman HR BUSINESS PARTNER Primary Care Provider + Encounter Details Date Type Department Care Team (Late st Contact Info) Description 06/12/2020 8:30 AM CYBER INTELLIGENCE ANALYST Telemedicine [facility] Gastroenterology [address] [facility] 2nd Floor [address] [place] [address] Brian Hogue MD [address] [place] [address] NAFLD (nonalcoholic fatty liver disease) (Primary Dx); Crohn's disease of small intestine with other complication (CMS/HCC); BMI 40.0-44.9, adult (CMS/HCC); Prediabetes Social History Tobacco Use Types Packs/Day Years Used Date Smoking Tobacco: Every Day Cigarettes Smokeless Tobacco: Never Alcohol Use Standard Drinks/Week Comments Yes 2 (1 standard drink = 0.6 oz pur e alcohol) Comments Unknown Sex and Gender Information Value Date Recorded Sex Assigned at Not on file Legal Sex Female 7:54 PM CYBER INTELLIGENCE ANALYST Gender Identity Not on file Sexual Orientation Not on file documented as of this encounter Progress Notes * Brian Hogue MD - 06/12/2020 8:30 AM CST Images from the original note were not included. [facility] DEPARTMENT OF INTERNAL MEDICINE DIVISION OF GASTROENTEROLOGY [facility]OLOG[facility] Mailing Address: [address], [place] [address] Primary Care Provider: Judy Fishman NP Reason For Visit: Initial office visit for hepatic steatosis Subjective This was a telemedicine visit with Liliana Mancilla and her mother which took place via real-time video connection with [employer]. During the visit, I was located in the office and the patient was located at home in the [facility]. The patient visit started at 08:30 and ended at 09:00. My total encounter time on 06/12/2020 was 45 minutes which was spent in the activities [...] or video visit during the COVID-19 public [facility] emergency to the patient. After being given an opportunity to ask questions about and discuss this type of visit, the patient verbally consented to proceeding with the telephone/video visit.The patient understands that this service replaces an office visit and they may be billed and/or responsible for any applicable copayments. Brian Hogue MD HPI: Liliana Mancilla is a 29 y.o. female with history of Crohn's disease here for an initial officevisit for hepatic steatosis. She was first told about about hepatic steatosis after it was determined by screening her MR enterography using proton density fat fraction mapping in December 2019. She denies any current symptoms attributable to liver disease (abdominal pain, abdominal distension, dyspnea, overt blood in the stool, altered sleep-wake cycle, hospitalizations for confusion, pruritis or jaundice). She has risk factors for liver disease including an aunt with alcohol-related liver disease and tattoos (professionally placed, first age 20 years and last age 22 years) but denies any history of at-risk alcohol use, IV/illicit drug use. She weighed 180 lbs at age 20 years and was first at his heaviest weight (240 lbs) at age 27 years. Her last use of corticosteroids was August 2018. She had previously seen a line o scribe operator for weight loss as a teenager and she had seen a medical weight loss specialist as part of a hCG monitored program in 2018. All this weight has been regained and she is now still 240 lbs. She has never been diagnosed with hypertension, dyslipidemia or diabetes mellitus. She has been told she is pre-diabetic since age 18 years. Her alcohol use assessment is current drinker with current alcohol use pattern described as light (less than 1 drink of wine a week with a bottle of wine taking a month). There is no history of legal/social/medical complications clearly attributed to alcohol. She is CAGE negative. She was interviewed today with her mother and they had no further questions by the end of the visit. Review of Systems: On complete review of systems, all other systems are negative. Problem List: Patient Active Problem List Diagnosis ??? Chronic diarrhea ??? Iron deficiency anemia due to chronic blood loss ??? Crohn's disease of small intestine with other complication (CMS/HCC) ??? Healthcare maintenance ??? High risk medications (not anticoagulants) long-term use ??? NAFLD (nonalcoholic fatty liver disease) ??? BMI 40.0-44.9, adult (CMS/HCC) ??? Prediabetes Allergy History: Allergies Allergen Reactions ??? Cefdinir Swelling ??? Clindamycin Swelling ??? Povidone-Iodine Rash And chlorahexadine ??? Sulfa (Sulfonamide Antibiotics) Swelling ??? Unclassified Drug Swelling ??? Morphine Itching Current Medications: Current Outpatient Medications Medication Sig Dispense Refill ??? drospirenone-ethinyl estradioL (MIRA,OCELLA) 3-0.03 mg per tablet Take 1 tablet by mouth daily ??? liraglutide, weight loss, 3 mg/0.5 mL (18 mg/3 mL) pen injector Indications: weight loss management for an obese person 0.6 mg once daily for 1 week; increase by 0.6 mg daily at weekly intervals to a target dose of 3 daily 5 pen 3 ??? metFORMIN XR (GLUCOPHAGE XR) 500 mg 24 hr tablet Take 2 tablets (1,000 mg total) by mouth 2 (two) times a day after breakfast and dinner 360 tablet 3 ??? pen needle, diabetic (Comfort EZ Pen [place]) 32 gauge x 5/32 needle Use with Saxenda pen 100 each 3 ??? no122/iron/folic acid ( MULTI ORAL) Take by mouth daily No current facility-administered medications for this visit. Social History: Social History Socioeconomic History ??? Marital status: Single Spouse name: Not on file ??? Number of children: Not on file ??? Years of education: Not on file ??? Highest education level: Not on file Occupational History ??? Not on file Tobacco Use ??? Smoking status: Current Every Day Smoker Packs/day: 0.50 ??? Smokeless tobacco: Never Used Substance and Sexual Activity ??? Alcohol use: Yes Alcohol/week: 2.0 standard drinks Types: 2 Glasses of wine per week ??? Drug use: Never ??? Sexual activity: Yes Partners: Male Other Topics Concern ??? Not on file Social History Narrative ??? Not on file Social Determinants of Health Financial Resource Strain: ??? Difficulty of Paying Living Expenses: Food Insecurity: ??? Worried About Running Out of Food in the Last Year: ??? Ran Out of Food in the Last Year: Transportation Needs: ??? Lack of Transportation (Medical): ??? Lack of Transportation (Non-Medical): Physical Activity: ??? Days of Exercise per Week: ??? Minutes of Exercise per Session: Stress: ??? Feeling of Stress : Social Connections: ??? Frequency of Communication with Friends and Family: ??? Frequency of Social Gatherings with Friends and Family: ??? Attends Rastafarian Services: ??? Active Member of Clubs or Organizations: ??? Attends Club or Organization Meetings: ??? Marital Status: Intimate Partner Violence: ??? Fear of Current or Ex-Partner: ??? Emotionally Abused: ??? Physically Abused: ??? Sexually Abused: Family History: Family History Problem Relation Age of Onset ??? Diabetes Mother ??? Hypertension Mother ??? Cancer Mother's Sister ??? Cancer Maternal Grandmother ??? Cancer Maternal Grandfather ??? Diabetes Maternal Grandfather ??? Cancer Paternal Grandmother ??? Ulcerative colitis Paternal cousin ??? Crohn's disease Paternal cousin Objective Physical Exam: General - well nourished, no acute distress HEENT - No temporal wasting, mucous membranes appear moistOcular - no scleral icterus, conjunctiva without pallor/injectionLymphatics: no visible cervical lymphadenopathyCardiovascular - No lower extremity edema or signs of cyanosisRespiratory - breathingis unlabored, speaking in full sentences without respiratory distressGastrointestinal - abdomen is not distended, no distended abdominal veins, non-tender to self-palpationExtremities - no clubbingNeurologic: awake and alert, no focal deficit, no asterixisPsych: mood is euthymic, conversation is appropriateDermatologic - no rashes appreciated, skin is not jaundiced Labs: Chronic Viral Hepatitis Labs Lab Results Component Value Date HEPCAB Nonreactive 06/09/2020 HEPBSAG Nonreactive 10/27/2018 HEPBSAB Reactive 10/27/2018 HEPBSAB 61.8 (H) 10/27/2018 HEPBCAB Nonreactive 10/27/2018 Immune-mediated Liver Disease Labs Lab Results Component Value Date PRISCILA Negative 06/09/2020 SMOOTHMUSCAB Negative 06/09/2020 MITOAB Negative 06/09/2020 IMMUNM 230.0 06/09/2020 TTGIGA <0.5 06/09/2020 Metabolic Liver Disease LABS Lab Results Component Value Date FERRITIN 58 10/27/2018 CERULOPLSM 31.9 06/09/2020 TRIG 114 06/09/2020 LDLCALC 77 06/09/2020 HGBA1C 5.8 (H) 06/09/2020 Lab Results Component Value Date WBC 12.4 (H) 06/09/2020 HGB 12.1 06/09/2020 LABPLAT 353 06/09/2020 Lab Results Component Value Date AST 20 06/09/2020 ALT 21 06/09/2020 ALKPHOS 84 06/09/2020 PROT 7.7 06/09/2020 ALBUMIN 4.3 06/09/2020 BILITOT 0.3 06/09/2020 SODIUM 139 06/09/2020 POTASSIUM 3.5 06/09/2020 CHLORIDE 106 06/09/2020 CO2 26 06/09/2020 ANIONGAP 7 06/09/2020 BUNSER 8 06/09/2020 CREATININE 0.62 06/09/2020 GLUCOSE 86 06/09/2020 CALCIUM 9.4 06/09/2020 Fibrosis-4 (FIB-4) Calculator: 0.35 at 06/12/2020 3:32 PM Calculated from: SGOT/AST: 20 Units/L at 06/09/2020 2:30 PM SGPT/ALT: 21 Units/L at 06/09/2020 2:30 PM Platelets: 353 K/cumm at 06/09/2020 2:30 PM Age: 29 years 10 months Imaging Results: MR Enterography (12/16/2019) - Normal MR enterography. - MR Liver Fat quantification shows hepatic steatosis with a proton density fat fraction of 13% Assessment Medical Decision Making: Liliana Mancilla is a very pleasant 29 year old lady that is here for an initial office visit for hepatic steatosis. I am confident in the diagnosis of nonalcoholic fatty liver disease (NAFLD). This is based on her imaging of steatosis, lack of at-risk alcohol use and a pre-test probability of NAFLD using the Steven Steatosis Index of 67%. Unfortunately she is obese, which synergizes in the setting of Inflammatory Bowel Disease with a combination of altered enterokines, cytokines, secondary bacterial metabolites and/or medications. I have already sent laboratory workup to exclude immune-mediated, chronic viral and other metabolic causes of liver disease. The liver-related complications of NAFLD are a function of the extremely variable severity of the inflammatory response to the hepatic lipid droplets that subsequently lead to progressive hepatic fibrosis. Unfortunately, normal liver biochemistries do a very poor job discriminating steatohepatitis from simple hepatic steatosis. Luckily her non-invasive fibrosis assessment using the NAFLD fibrosisscore and the Fibrosis-4 score are both predicting a low-risk for advanced stage fibrosis. Unfortunately I will have to differ a Fibroscan (another non-invasive method of fibrosis assessment that could corroborate that impression) as she is undergoing fertility treatment, and Fibroscan is not approved in patients that may become . The more important outcome for patients with NAFLD regardless of the amount of inflammatory response to the hepatic lipid droplets is related to the almost universal peripheral insulin resistance increasing both the prevalence and incidence of cardiometabolic complications. I recommend screening for and subsequent aggressive risk factor modification of dyslipidemia (both with statins for LDL cholesterol and omega-3 fatty acids for elevated triglycerides), hypertension (potential benefit of agents that act through the renin- angiotension pathway) and diabetes mellitus (specific benefit using GLP-1 agonists such as liraglutide). Regarding both her cardiometabolic and liver-related risk, the current treatment goal from the hepatology side is weight loss through a combination of diet and exercise. At a goal of >5% total body weight loss, there is improvement in hepatic steatosis while a goal of >10% is associated with some improvement even in hepatic fibrosis. I counseled her on some simple strategies (calorie countin g, avoiding sugary beverages, portion control), and I will request that they see a medical weight loss specialist to further help guide their weight loss attempt. I gave her a feasible weight loss goal of 20 lbs. I will tentatively plan on seeing her back in clinic (either telehealth or in- person) in 6 months to ensure that there has been some success at weight loss. R INTELLIGENCE ANALYST documented in this encounter Plan of Treatment Not on file documented as of this encounter Visit Diagnoses Diagnosis NAFLD (nonalcoholic fatty liver disease)- Primary Crohn's disease of small intestine with other complication (HCC) BMI 40.0-44.9, adult (HCC) Prediabetes Other abnormal glucose documented in this encounter Discontinued Medications Medication Sig Discontinue Reason Start Date End Da te drospirenone-ethinyl estradioL (MIRA,OCELLA) 3-0.03 mg per tablet Take 1 tablet by mouth daily 06/12/2020 liraglutide, weight loss, 3 mg/0.5 mL (18 mg/3 mL) pen injectorIndications:Noah ght Loss Management for Obese Patient (BMI >= 30) Indications: weight loss management for an obese person 0.6 mg once daily for 1 week; increase by 0.6 mg daily at weekly intervals to a target dose of 3 daily 08/17/2019 06/12/2020 metFORMIN XR (GLUCOPHAGE XR) 500 mg 24 hr tabletIndications:PCOS (polycystic ovarian syndrome) Take 2 tablets (1,000 mg total) by mouth 2 (two) times a day after breakfast and dinner 12/21/2019 06/12/2020 pen needle, diabetic (Comfort EZ Pen [place]) 32 gauge x 5/32 needleIndications:Class 3 severe obesity without serious comorbidity with body mass index (BMI) of 40.0 to 44.9 in adult, unspecified obesity type (HCC) Use with Saxenda pen 08/17/2019 06/12/2020 documented as of this encounter Care Teams Assembler Gold Frame Relationship Specialty Start Date End Date Judy Fishman, BINU [address] [id number] PCP - General 07/31/18 documented as of this encounter
--- OUTSIDE RECORDS SUMMARY | 2024-04-11 06:17 | XMS_ITS | Encounter Summary ---
Author Organization [facility] Address [address] [place] [address] Phone Care Team Providers Care Parcel Post Clerk Name Role Phone Judy Fishman SOLAR PANEL INSTALLER Primary Care Provider + Reason for Visit * Episode Based Medications (Routine) - Pending Review Specialty Diagnoses / Procedures Referred By Mary roberson Referred To Contact Diagnoses Crohn's disease of small intestine with other complication (HCC) Procedures [place] INJECTION, VEDOLIZUMAB Trent Severino MD [address] [place] [address] Phone: tel: fax: [facility] Infusion Therapy [facility] Advanced Medicine 5th [place] [address] [place] [address] Phone: tel: fax: Referral ID Status Reason Start Date Expiration Date V isits Requested Visits Authorized [id number] Pending Review 09/26/2021 09/26/2022 41 [phone] Encounter Details Date Type Department Care Team (Late st Contact Info) Description 12/17/2019 1:00 PM CDT Infusion [facility] Infusion Therapy [facility] Advanced Medicine 5th [place] [address] [place] [address] Crohn's disease of small intestine [...] on file Legal Sex Female 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 VSS. Denies illness. Tolerated infusion without adverse reaction. Follow up scheduled in 6 weeks. No concerns. documented in this encounter Plan [...] mL/hr, Administer over 30 Minutes, Once, On Fri12/17/19 at 1400, For 1 doseIndications:Crohn's disease of small intestine with other complication (HCC) New Bag 12/17/2019 1:20 PM CDT 300 mg 5 10 mL/hr documented in this encounter Orders Medications Ordered That Jonathan ht Not Have Been Administered Count Last Ordered Date First Ordered Date vedolizumab (ENTYVIO) 300 mg in sodium chloride 0.9% 250 mL IVPB 1 12/17/2019 documented in this encounter Care Teams Parcel Post Clerk Relationship Specialty Start Date End Date Judy Fishman NP [address] [id number] PCP - General 07/31/18 documented as of this encounter
--- OUTSIDE RECORDS SUMMARY | 2024-04-11 06:17 | XMS_ITS | Encounter Summary ---
Author Organization [facility] Address [address] [place] [address] Phone Care Team Providers Care Tobacco Packer Name Role Phone Judy Fishman KIER TENDER Primary Care Provider + Encounter Details Date Type Department Care Team (Late st Contact Info) Description 09/23/[address] [facility] Endocrinology Metabolism and Lipid [address] [place] [address] [place] [address] Andria Lindquist Social History Tobacco Use Types Packs/Day Years Used Date Smoking Tobacco: Every Day Cigarettes Smokeless Tobacco: Never Alcohol Use Standard Drinks/Week Comments Yes 2 (1 standard drink = 0.6 oz pur e alcohol) Comments Unknown Sex and Gender Information Value Date Recorded Sex Assigned at Not on file Legal Sex Female 7:54 PM LEAKAGE TESTER Gender Identity Not on file Sexual Orientation Not on file documented as of this encounter Miscellaneous Notes * Telephone Encounter - Andria Lindquist - 09/23/2019 10:52 AM CDT Left voice message for appointment confirmation and COVID prescreening documented in this encounter Plan of Treatment Not on file documented as of this encounter Visit Diagnoses Not on filedocumented in this encounter Care Teams Tobacco Packer Relationship Specialty Start Date End Date Judy Fishman, BINU [address] [address] PCP - General 07/31/18 documented as of this encounter
--- OUTSIDE RECORDS SUMMARY | 2024-04-11 06:17 | XMS_ITS | Encounter Summary ---
Author Organization [facility] Address [address] [place] [address] Phone Care Team Providers Care Perinatal Technician Name Role Phone Judy Fishmna ALMOND GRINDER Primary Care Provider + Reason for Referral * Diagnostic Imaging (Routine) - Closed Specialty Diagnoses / Procedures Referred By Mary roberson Referred To Contact Radiology Diagnoses Crohn's disease of small intestine with other complication (HCC) Procedures MRI Abdomen Enterography W WO Contrast Trent Severino MD [address] [place] [address] Phone: tel: fax: [address] [address] Referral ID Status Reason Start Date Expiration Date Visits Re quested Visits Authorized [id number] Closed 10/13/2019 04/23/2021 1 1 Encounter Details Date Type Department Care Team (Late st Contact Info) Description 10/13/2019 Orders Only [facility] Advanced Medicine 8th [place] [address] [place] [address] Dianelys Marcial RMA Crohn's disease of small intestine with other [...] on file 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 Dictated by: Bradford Rosales M.D. The radiology attending physician has personally reviewed this study, and had reviewed and/or edited this written report and agrees with it. Electronically signed by: Roby Zuniga M.D. Narrative 12/16/2019 3:45 PM CDT EXAMINATION: MAGNETIC RESONANCE IMAGING OF THE ABDOMEN WITH AND WITHOUT CONTRAST HISTORY: 29 year old woman with Crohn's disease, on Entyvio. TECHNIQUE: Magnetic resonance imaging of the abdomen was performed prior to and following the uneventful administration of intravenous Gadolinium contrast. Oral Volumen and 1 mg of intravenous glucagon was administered prior to the examination. Protocol: MR Enterography Contrast: Dotarem 18 mL COMPARISON: MR Enterography dated 03/26/19. FINDINGS: Bowel: The small and large bowel are normal. ??There is no mural hyperenhancement, bowel wall thickening, or penetrating disease. ??No gross evidence of perianal fistula. Liver/Bile Ducts: No surface nodularity. ??No hepatic steatosis or iron deposition. ??No intra or extrahepatic biliary dilation. Gallbladder: Normal. Pancreas: Normal. Spleen: Normal. Adrenals: Normal. Kidneys: Normal. ??There is no hydronephrosis. Bladder: Normal. Reproductive organs: The uterus is normal. ??Follicular cysts are present within both ovaries. Other Findings: There are trace bilateral pleural effusions. ??There is no suspicious abdominal or pelvic lymphadenopathy. ??There are no suspicious osseous lesions. Procedure Note Roby Zuniga MD - 12/16/2019 EXAMINATION: MAGNETIC RESONANCE IMAGING OF THE ABDOMEN WITH AND WITHOUT CONTRAST HISTORY: 29 year old woman with Crohn's disease, on Entyvio. TECHNIQUE: Magnetic resonance imaging of the abdomen was performed prior to and following the uneventful administration of intravenous Gadolinium contrast. Oral Volumen and 1 mg of intravenous glucagon was administered prior to the examination. Protocol: MR Enterography Contrast: Dotarem 18 mL COMPARISON: MR Enterography dated 03/26/19. FINDINGS: Bowel: The small and large bowel are normal. There is no mural hyperenhancement, bowel wall thickening, or penetrating disease. No gross evidence of perianal fistula. Liver/Bile Ducts: No surface nodularity. No hepatic steatosis or iron deposition. No intra or extrahepatic biliary dilation. Gallbladder: Normal. Pancreas: Normal. Spleen: Normal. Adrenals: Normal. Kidneys: Normal. There is no hydronephrosis. Bladder: Normal. Reproductive organs: The uterus is normal. Follicular cysts are present within both ovaries. Other Findings: There are trace bilateral pleural effusions. There is no suspicious abdominal or pelvic lymphadenopathy. There are no suspicious osseous lesions. IMPRESSION: Normal MR enterography. Dictated by: Bradford Rosales M.D. The radiology attending physician has personally reviewed this study, and had reviewed and/or edited this written report and agrees with it. Electronically signed by: Roby Zuniga M.D. Madalynhi Maycol [place] IM MRI PROCEDURES Final Resu lt documented in this encounter Visit Diagnoses Diagnosis Crohn's disease of small intestine with other complication (HCC)- Primary Crohn's disease of small intestine with other complication (HCC) documented in this encounter Care Teams Perinatal Technician Relationship Specialty Start Date End Date Judy Fishman NP [address] [address] PCP - General 07/31/18 documented as of this encounter
--- OUTSIDE RECORDS SUMMARY | 2024-04-11 06:17 | XMS_ITS | Encounter Summary ---
Author Organization [facility] Healthcare Address [address] [place] [address] Care Team Providers Care Chronic Care Nurse Name Role Phone Kye, Judy Brittani BATCHER OPERATOR Primary Care Provider + Encounter Details Date Type Department Care Team (Late st Contact Info) Description 04/12/2020 3:05 PM STRATEGIC SOURCING CONSULTANT Lab [address] [address] Crohn's disease of small intestine with other complication (CMS/HCC) Social History Tobacco Use Types Packs/Day Years Used Date Smoking Tobacco: Every Day Cigarettes Smokeless Tobacco: Never Alcohol Use Standard Drinks/Week Comments Yes 2 (1 standard drink = 0.6 oz pur e alcohol) Comments Unknown Sex and Gender Information Value Date Recorded Sex Assigned at Not on file Legal Sex Female 7:54 PM STRATEGIC SOURCING CONSULTANT Gender Identity Not on file Sexual Orientation Not on file documented as of this encounter Plan of Treatment Not on file documented as of this encounter Procedures Procedure Name Priority Date/Time Associated Diagnosis Comments CRP (ACUTE PHASE) Routine 04/12/2020 3:0 2 PM STRATEGIC SOURCING CONSULTANT Crohn's disease of small intestine with other complication (CMS/HCC) documented in this encounter Results * (ABNORMAL) CRP (acute phase) (04/12/2020 3:02 PM STRATEGIC SOURCING CONSULTANT) CRP 16.0(H) <=10.0 mg/L [facility] Blood specimen (specimen) 04/12/2020 3:02 PM STRATEGIC SOURCING CONSULTANT 04/12/2020 3:26 PM STRATEGIC SOURCING CONSULTANT us Trent Severino MD LAB BLOOD ORDERABLES Final Re sult [facility] [place] [address] documented in this encounter Visit Diagnoses Diagnosis Crohn's disease of small intestine with other complication (HCC) documented in this encounter Care Teams Chronic Care Nurse Relationship Specialty Start Date End Date Judy Fishman NP [address] [address] PCP - General 07/31/18 documented as of this encounter
--- OUTSIDE RECORDS SUMMARY | 2024-04-11 06:17 | XMS_ITS | Encounter Summary ---
Author Organization [facility] Address [address] [place] [address] Phone Care Team Providers Care Isobutylene Operator Chief Name Role Phone Simone Fishmanelle Brittani CONE MACHINE FEEDER Primary Care Provider + Encounter Details Date Type Department Care Team (Late st Contact Info) Description 06/19/2020 Telephone [facility] 8th [place] [address] [place] [address] Elena Walden LPN Social History Tobacco Use Types Packs/Day Years Used Date Smoking Tobacco: Every Day Cigarettes Smokeless Tobacco: Never Alcohol Use Standard Drinks/Week Comments Yes 2 (1 standard drink = 0.6 oz pur e alcohol) Comments Unknown Sex and Gender Information Value Date Recorded Sex Assigned at Not on file Legal Sex Female 7:54 PM BALL MILL MIXER Gender Identity Not on file Sexual Orientation Not on file documented as of this encounter Miscellaneous Notes * Telephone Encounter - Elena Walden LPN - 06/19/2020 10:41 AM CST ----- Message from Brian Mariscal MD sent at 06/16/2020 4:34 PM BALL MILL MIXER ----- Chronic liver disease work-up is unremarkable. The diagnosis remains nonalcoholic fatty liver disease (NAFLD). Chronic Viral Hepatitis Labs HEPCAB Nonreactive 06/09/2020 HEPBSAG Nonreactive 10/27/2018 HEPBSAB Reactive 10/27/2018 HEPBSAB 61.8 (H) 10/27/2018 HEPBCAB Nonreactive 10/27/2018 Immune-mediated Liver Disease Labs PRISCILA Negative 06/09/2020 SMOOTHMUSCAB Negative 06/09/2020 MITOAB Negative 06/09/2020 IMMUNM 230.0 06/09/2020 TTGIGA <0.5 06/09/2020 Metabolic Liver Disease Labs A1A 156 06/09/2020 J5WBXKGK MM 06/09/2020 FERRITIN 58 10/27/2018 CERULOPLSM 31.9 06/09/2020 TRIG 114 06/09/2020 LDLCALC 77 06/09/2020 HGBA1C 5.8 (H) 06/09/2020 MILL MIXER documented in this encounter Plan of Treatment Not on file documented as of this encounter Visit Diagnoses Not on filedocumented in this encounter Care Teams Isobutylene Operator Chief Relationship Specialty Start Date End Date Judy Fishman NP [address] [address] PCP - General 07/31/18 documented as of this encounter
--- OUTSIDE RECORDS SUMMARY | 2024-04-11 06:17 | XMS_ITS | Encounter Summary ---
Author Organization [facility] Address [address] [place] [address] Care Team Providers Care Hand Woven Carpet And Rug Mender Name Role Phone Judy Fishman CMM PROGRAMMER Primary Care Provider + Reason for Referral * Diagnostic Imaging (Routine) - Closed Specialty Diagnoses / Procedures Referred By aMry t Referred To Contact Radiology Diagnoses Crohn's disease of small intestine with other complication (HCC) Procedures MRI Abdomen Enterography W WO Contrast Trent Severino MD [address] [address] [address] Phone: tel: fax: [address] [phone] Referral ID Status Reason Start Date Expiration Date Visits Re quested Visits Authorized [id number] Closed 10/13/2019 04/23/2021 1 1 Reason for Visit * Diagnostic Imaging (Routine) - Closed Specialty Diagnoses / Procedures Referred By Contflora t Referred To Contact Radiology Diagnoses Crohn's disease of small intestine with other complication (HCC) Procedures MRI Abdomen Enterography W WO Contrast Trent Severino MD [address] [address] Phone: tel: fax: [address] [phone] Referral ID Status Reason Start Date Expiration Date Visits Re quested Visits Authorized [id number] Closed 10/13/2019 04/23/2021 1 1 Encounter Details Date Type Department Care Team (Latest Contact Info) Description 12/16/2019 12:18 PM CDT - 12/16/2019 11:59 PM CDT Hospital Encounter [facility] [address] [place] [address] Trent Severino MD [address] [place] [address] Crohn's disease of small intestine with other complication (CMS/HCC) Discharge Disposition: Discharge to home or self care Social History Tobacco Use Types Packs/Day Years Used Date Smoking Tobacco: Every Day Cigarettes Smokeless Tobacco: Never Alcohol Use Standard Drinks/Week Comments Yes 2 (1 standard drink = 0.6 oz pur e alcohol) Comments Unknown Sex and Gender Information Value Date Recorded Sex Assigned at Not on file Legal Sex Female 7:54 PM STOCK TAKER Gender Identity Not on file Sexual Orientation Not on file documented as of this encounter Medications at Time of Discharge drospirenone-ethi nyl estradioL (MIRA,OCELLA) 3-0.03 mg per tablet Take 1 tablet by mouth daily 1 liraglutide, weight loss, 3 mg/0.5 mL (18 mg/3 mL) pen injectorIndicatio ns:Weight Loss Management for Obese Patient (BMI >= 30) Indications: weight loss management for an obese person 0.6 mg once daily for 1 week; increase by 0.6 mg daily at weekly intervals to a target dose of 3 daily 5 pen 3 08/17/2019 1 pen needle, diabetic (Comfort EZ Pen Pepin) 32 gauge x 5/32 needleIndications :Class 3 severe obesity without serious comorbidity with body mass index (BMI) of 40.0 to 44.9 in adult, unspecified obesity type (HCC) Use with Saxenda pen 100 each 3 08/17/2019 1 no122/iron/folic acid ( MULTI ORAL) Take by mouth daily 2 documented as of this encounter Discharge Disposition Disposition Code Departure Means Destination Discharge to home or self care documented in this encounter Progress Notes * Brian Mariscal MD - 12/16/2019 2:00 PM CDT MR Liver Fat quantification shows hepatic steatosis with a proton density fat fraction of 13% K TAKER documented in this encounter Plan of Treatment Not on file documented as of this encounter Procedures Procedure Name Priority Date/Time Associated Diagnosis Comments MRI ABDOMENT ENTEROGRAPHY W WO CONTRAST Schedule Routine, Read Routine (OP Routine) 12/16/2019 2:52 PM CDT Crohn's disease of small intestine with other complication (CMS/HCC) documented in this encounter Results * MRI Abdomen Enterography [...] it. Electronically signed by: Roby Zuniga M.D. Trent Severino MD IMG MRI PROCEDURES Final Resu lt documented in this encounter Visit Diagnoses Diagnosis Crohn's disease of small intestine with other complication (HCC) documented in this encounter Administered Medications Inactive Administered Medications - up to 3 most recent administrations Medication Order MAR Action Action Date Dose Rate Site gadoterate meglumine (DOTAREM) 0.5 mmol/mL injection 21.54 mL 21.54 mL (0.1 mmol/kg ? 107.7 kg), intravenous, Once in imaging, contrast, Starting on May 9/3/20 at 1318, For 1 dose, Imaging Protocol Orders Given 12/16/2019 2:36 PM CDT 18 mL glucagon injection 1 mg 1 mg, intravenous, Administer over 1 Minutes, Once in imaging, low blood sugar, Starting on May 12/16/19 at 1318, For 1 dose, Imaging Protocol Orders Given 12/16/2019 2:11 PM CDT 1 mg documented in this encounter Care Teams Hand Woven Carpet And Rug Mender Relationship Specialty Start Date End Date Judy Fishman NP [address] [address] PCP - General 07/31/18 documented as of this encounter
--- OUTSIDE RECORDS SUMMARY | 2024-04-11 06:17 | XMS_ITS | Encounter Summary ---
Author Organization [facility] Address [address] [place] [address] Care Team Providers Care Custom Applicator Name Role Phone Judy Fishman LIBRARY CLERICAL ASSISTANT Primary Care Provider + Encounter Details Date Type Department Care Team (Late st Contact Info) Description 08/17/2019 11:45 AM CDT Lab [address] [address] Crohn's disease of small intestine with other complication (CMS/HCC) Social History Tobacco Use Types Packs/Day Years Used Date Smoking Tobacco: Every Day Cigarettes Smokeless Tobacco: Never Alcohol Use Standard Drinks/Week Comments Yes 2 (1 standard drink = 0.6 oz pur e alcohol) Comments Unknown Sex and Gender Information Value Date Recorded Sex Assigned at Not on file Legal Sex Female 7:54 PM OPERATING THEATRE TECHNICIAN Gender Identity Not on file Sexual Orientation Not on file documented as of this encounter Plan of Treatment Not on file documented as of this encounter Procedures Procedure Name Priority Date/Time Associated Diagnosis Comments REFLEX VEDOLIZUMAB AB Routine 08/17/2019 10:46 AM CDT VEDOLIZUMAB WITH REFLEX TO AB Routine 08/17/2019 10:46 AM CDT Crohn's disease of small intestine with other complication (CMS/HCC) CRP (ACUTE PHASE) Routine 08/17/2019 10: 46 AM CDT Crohn's disease of small intestine with other complication (CMS/HCC) documented in this encounter Results * Reflex Vedolizumab Ab (08/17/2019 10:46 AM CDT) Vedolizumab Ab <9.8 <9.8 ng/mL [facility] Vedolizumab interp See Footnote [facility] PRUETT Comment: RESULT: Absence of detectable thticokt-zr-cdikvnkjzxr. ADDITIONAL INFORMATION This test was developed and its performance characteristics determined by [facility] in a manner consistent with CLIA requirements. This test has not been cleared or approved by the U.S. Food and Drug Administration. Test Performed by: [facility] [address] [place] [address] Education Department Chair: Shaun Benitez M.D. Ph.D.; CLIA# [id number] Blood specimen (specimen) 08/17/2019 10:46 AM CDT 08/17/2019 11:40 AM CDT Trent Severino MD LAB BLOOD ORDERABLES Final Re sult Performing Organization Address City/[facility]/ZIP Co de Phone Number [facility] Department [email or web address] [address] * (ABNORMAL) CRP (acute phase) (08/17/2019 10:46 AM CDT) CRP 13.7(H) <=10.0 mg/L [facility] Blood specimen (specimen) 08/17/2019 10:46 AM CDT 08/17/2019 11:21 AM CDT Trent Severino MD LAB BLOOD ORDERABLES Final Re sult Performing Organization Address City/[facility]/ZIP Co de Phone Number [facility] [place] [address] * (ABNORMAL) Vedolizumab with Reflex to Ab (08/17/2019 10:46 AM CDT) Vedolizumab Qn 14.0(L) mcg/mL [facility] Comment: For concentrations of vedolizumab less than or equal to 15.0 mcg/mL, reflex testing for ijghgqllpj-iv-zwgyesckajb will be performed. REFERENCE VALUE Lower limit of quantitation = 2.0 mcg/mL ADDITIONAL INFORMATION This test was developed and its performance characteristics determined by [facility] in a manner consistent with CLIA requirements. This test has not been cleared or approved by the U.S. Food and Drug Administration. Test Performed by: [facility] [address] [place] [address] Education Department Chair: Shaun Benitez M.D. Ph.D.; CLIA# [id number] Blood specimen (specimen) 08/17/2019 10:46 AM CDT 08/17/2019 11:40 AM CDT Trent Severino MD LAB BLOOD ORDERABLES Final Re sult [facility] CAL[facility] Department [place] [address] documented in this encounter Visit Diagnoses Diagnosis Crohn's disease of small intestine with other complication (HCC) documented in this encounter Care Teams Custom Applicator Relationship Specialty Start Date End Date Judy Fishman NP [address] [address] PCP - General 07/31/18 documented as of this encounter
--- OUTSIDE RECORDS SUMMARY | 2024-04-11 06:17 | XMS_ITS | Encounter Summary ---
Author Organization [facility] Address [address] [place] [address] Phone Care Team Providers Care Inspector Paper Products Name Role Phone Judy Fishman MEDICAL COLLECTIONS Primary Care Provider + Reason for Visit * Episode Based Medications (Routine) - Pending Review Specialty Diagnoses / Procedures Referred By Mary roberson Referred To Contact Diagnoses Crohn's disease of small intestine with other complication (HCC) Procedures [place] INJECTION, VEDOLIZUMAB Trent Severino MD [address] [place] [address] Phone: tel: fax: [facility] Infusion Therapy [facility] 5th [place] [address] [place] [address] Phone: tel: fax: Referral ID Status Reason Start Date Expiration Date V isits Requested Visits Authorized [id number] Pending Review 09/26/2021 09/26/2022 41 41 Encounter Details Date Type Department Care Team (Late st Contact Info) Description 11/05/2019 12:30 PM CDT Infusion [facility] Infusion Therapy [facility] 5th [place] [address] [place] [address] Crohn's disease of small intestine [...] on file Legal Sex Female 7:54 PM CALL CENTER MANAGER Gender Identity Not on file Sexual Orientation Not on file documented as of this encounter Progress Notes * Elena Bullock - 11/05/2019 12:30 PM CDT Infusion [facility] for Entyvio 300 mg infusion in 250ml NS over 30 minutes (500 ml/hr). Denied signs/sx of infection. Voiced no c/o. Pt declined pre medications. IV inserted left AC without problems. Labs drawn: CBC, CMP, CRP, and T Spot. VSS. F/U appointment in 6 weeks scheduled. Ambulatory post fromunit documented in this encounter Plan of Treatment Not on file documented as of this encounter Procedures Procedure Name Priority Date/Time Associated Diagnosis Comments CBC WITH AUTO DIFFERENTIAL Routine 11/05/2019 12:15 PM CDT Crohn's disease of small intestine with other complication (CMS/HCC) COMPREHENSIVE METABOLIC PANEL Routine 11/05/2019 12:15 PM CDT Crohn's disease of small intestine with other complication (CMS/HCC) documented in this encounter Results * (ABNORMAL) CBC with auto differential (11/05/2019 12:15 PM CDT) White Blood Count 13.7(H) 3.6 - 11.2 K/uL [facility] RBC 4.45 3.63 - 4.92 M/uL [facility] Hemoglobin 12.5 11.9 - 15.5 g/dL [facility] Hematocrit 37.7 36.1 - 44.3 % [facility] MCV 84.8 80.0 - 97.6 fL [facility] MCH 28.2 26.7 - 33.7 pg [facility] MCHC 33.2 32.7 - 35.5 g/dL [facility] RBC Dist Width 14.0 12.3 - 17.0 % [facility] Platelet Count 306 140 - 440 K/uL [facility] MPV 9.4 6.8 - 10.4 fL [facility] Neutrophils % 60.7 38.7 - 74.5 % [facility] Lymphocyte % 30.8 20.0 - 54.3 % [facility] Monocytes % 4.4 4.3 - 13.5 % [facility] Eosinophils % 3.8 0.0 - 6.0 % [facility] Basophil % 0.3 0.0 - 3.0 % [facility] Absolute Neutrophil 8.3(H) 1.8 - 6.6 K/uL [facility] Absolute Lymphocyte 4.2(H) 0.8 - 3.3 K/uL [facility] Absolute Monocyte 0.6 0.2 - 1.2 K/uL [facility] Absolute Eosinophil 0.5 0.0 - 0.5 K/uL [facility] Absolute Basophil 0.0 0.0 - 0.2 K/uL [facility] Nucleated RBC % 0.1 0.0 - 0.4 /100 WBC [facility] Blood specimen (specimen) 11/05/2019 12:15 PM CDT 11/05/2019 1:00 PM CDT us Trent Sevreino MD LAB BLOOD ORDERABLES Final Re sult [facility] * (ABNORMAL) Comprehensive metabolic panel (11/05/2019 12:15 PM CDT) Total Protein 7.8 6.1 - 8.4 g/dL [facility] Albumin 4.4 3.5 - 5.2 g/dL [facility] Calcium 9.3 8.6 - 10.3 mg/dL [facility] BUN 7 7 - 23 mg/dL [facility] Total Bilirubin 0.34 0.20 - 1.40 mg/dL [facility] Alk Phos, Total 91 35 - 129 IU/L [facility] AST (SGOT) INTERFERENCE - HEMOLYSIS 11 - 47 IU/L [facility] ALT (SGPT) INTERFERENCE - HEMOLYSIS 6 - 53 IU/L [facility] Creatinine 0.57(L) 0.60 - 1.10 mg/dL [facility] Sodium 136 135 - 145 mmol/L [facility] Potassium INTERFERENCE - HEMOLYSIS 3.3 - 5.1 mmol/L [facility] Chloride 98 95 - 107 mmol/L [facility] CO2 Content 24 21 - 29 mmol/L [facility] Glucose 93 64 - 99 mg/dL [facility] Comment: NONFASTING GLUCOSE RANGE = 64-199 mg/dL FASTING GLUCOSE 64 - 99 = NORMAL FASTING GLUCOSE 100 - 125 = IMPAIRED FASTING GLUCOSE FASTING GLUCOSE >=126 = PROVISIONAL DIAGNOSIS OF DIABETES eGFR NON-AFR. [place] LEONE[place] >90.0 >60.0 mL/min/1 .73 m2 [facility] eGFR >90.0 >60.0 mL/min/1 .73 m2 [facility] Blood specimen (specimen) (Blood, Venous) 11/05/2019 12:15 PM CDT 11/05/2019 1:00 PM CDT Narrative [facility] - 11/05/2019 1:47 PM CDT Specimen Hemolyzed Trent Severino MD LAB BLOOD ORDERABLES Final Re sult [facility] * T-SPOT.TB (11/05/2019 12:15 PM CDT) Pathologist [facility] T-SPOT.TB Negative Negative [facility] Comment: Limitations from the T-SPOT.TB Package Insert p.15 Results from T-SPOT.TB testing must be used in conjunction with each individual's epidemiological history, current medical status and results of other diagnostic evaluations.The performance of T-SPOT.TB has not been adequately evaluated with specimens from individuals younger than 17 years, in women, and in patients with hemophilia. A false positive result was obtained for T-SPOT.TB when tested in subjects with M. xenopi, M. kansasii and M. gordonae. While ESAT-6 and CFP10 antigens are absent from BCG strains of M. bovis and from most environmental mycobacteria, it is possible that a positive T-SPOT.TB result may be due to infection with M. kansasii, M. szulgai, M. gordonae or M. marinum. Alternative tests would be required if these infections are suspected. A negative test result does not exclude the possibility of exposure to, or infection with M. tuberculosis. Patients with recent exposure to TB infected individuals exhibiting a negative T-SPOT.TB result should be considered for retesting within 6 weeks or if other relevant clinical symptoms indicate possible infection. A positive test result does not rule in active TB disease; other tests should be performed to confirm the diagnosis of active TB disease such as sputum smear and culture, PCR, and chest radiography. T-SPOT.TB has not been evaluated in subjects who have received >1 month of anti-TB therapy. Refrigerated and frozen samples are not recommended for use with T-SPOT.TB test. T-Spot testing performed by [employer] [address] [place] [address]. [id number] A negative test result does not exclude [...] test. T-SPOT.TB Panel A Spot Count 0 [facility] T-SPOT.TB Panel B Spot Count 0 [facility] T-SPOT.TB Negative Control Passed [facility] T-SPOT.TB Positive Control Passed [facility] Blood specimen (specimen) 11/05/2019 12:15 PM CDT 11/05/2019 3:39 PM CDT us Parakkal Maycol MD LAB MICROBIOLOGY - GENERAL OR DERABLES Final Result [facility] One [facility] [place] [address] documented in this encounter Visit Diagnoses Diagnosis [...] mL/hr, Administer over 30 Minutes, Once, On Fri11/05/19 at 1315, For 1 doseIndications:Crohn's disease of small intestine with other complication (HCC) New Bag 11/05/2019 12:30 PM CDT 300 mg 510 mL/hr documented in this encounter Orders Medications Ordered That Jonathan ht Not Have Been Administered Count Last Ordered Date First Ordered Date vedolizumab (ENTYVIO) 300 mg in sodium chloride 0.9% 250 mL IVPB 1 11/05/2019 Nursing Count Last Ordered Date First Orde red Date DAILY WEIGHTS 1 11/05/2019 ONCBCN NO PREMEDS NEEDED 1 11/05/2019 ONCBCN NURSING COMMUNICATION [id number] 1 0 11/05/2019 ONCBCN PROVIDER COMMUNICATION 1 1 0 VITAL SIGNS PRE-INFUSION 1 11/05/2019 documented in this encounter Care Teams Inspector Paper Products Relationship Specialty Start Date End Date Judy Fishman NP [address] [address] PCP - General 07/31/18 documented as of this encounter
--- OUTSIDE RECORDS SUMMARY | 2024-04-11 06:17 | XMS_ITS | Encounter Summary ---
Author Organization [facility] Address [address] [place] [address] Phone Care Team Providers Care Internal Grinding Machine Operator Name Role Phone Simone Fishmanelle Brittani MARINE ELECTRONICS REPAIRER Primary Care Provider + Encounter Details Date Type Department Care Team (Late st Contact Info) Description 09/06/2020 Telephone [facility] 8th [place] [address] [place] [phone] Susan Chawla RMA Social History Tobacco Use Types Packs/Day Years Used Date Smoking Tobacco: Every Day Cigarettes Smokeless Tobacco: Never Alcohol Use Standard Drinks/Week Comments Yes 2 (1 standard drink = 0.6 oz pur e alcohol) Comments Unknown Sex and Gender Information Value Date Recorded Sex Assigned at Not on file Legal Sex Female 7:54 PM JAVASCRIPT SOFTWARE ENGINEER Gender Identity Not on file Sexual Orientation Not on file documented as of this encounter Miscellaneous Notes * Telephone Encounter - Abiola Silverman RN - 09/07/2020 11:33 AM CDT Would recommend she complete a fecal calprotectin to ensure remission. Concern that her CRP is persistently elevated in the teens with elevated WBC * Telephone Encounter - Susan Chawla BS - 09/06/2020 3:34 PM CDT Patient called requesting a letter of clearance for IVF. [phone] documented in this encounter Plan of Treatment Not on file documented as of this encounter Visit Diagnoses Not on filedocumented in this encounter Care Teams Internal Grinding Machine Operator Relationship Specialty Start Date End Date Judy Fishman NP [address] [id number] PCP - General 07/31/18 documented as of this encounter
--- OUTSIDE RECORDS SUMMARY | 2024-04-11 06:17 | XMS_ITS | Encounter Summary ---
Author Organization [facility] Address [address] [place] [address] Phone Care Team Providers Care Meals On Wheels Driver Name Role Phone Judy Fishman DIRECTOR OF CATEGORY MANAGEMENT Primary Care Provider + Encounter Details Date Type Department Care Team (Late st Contact Info) Description 04/12/2020 1:50 PM VISITING HOUSEKEEPER Lab [facility] Endocrinology Metabolism and Lipid [address] [facility] 5th [place] [address] [place] [address] Crohn's disease of small intestine with other complication (CMS/HCC) Social History Tobacco Use Types Packs/Day Years Used Date Smoking Tobacco: Every Day Cigarettes Smokeless Tobacco: Never Alcohol Use Standard Drinks/Week Comments Yes 2 (1 standard drink = 0.6 oz pur e alcohol) Comments Unknown Sex and Gender Information Value Date Recorded Sex Assigned at Not on file Legal Sex Female 7:54 PM VISITING HOUSEKEEPER Gender Identity Not on file Sexual Orientation Not on file documented as of this encounter Plan of Treatment Not on file documented as of this encounter Visit Diagnoses Diagnosis Crohn's disease of small intestine with other complication (HCC) documented in this encounter Care Teams Meals On Wheels Driver Relationship Specialty Start Date End Date Judy Fishman NP [address] [id number] PCP - General 07/31/18 documented as of this encounter
--- OUTSIDE RECORDS SUMMARY | 2024-04-11 06:17 | XMS_ITS | Encounter Summary ---
Author Organization [facility] Address [address] [place] [address] Phone Care Team Providers Care Egg Smeller Name Role Phone Judy Fishman APPLIANCE MECHANIC Primary Care Provider + Encounter Details Date Type Department Care Team (Late st Contact Info) Description 12/21/2019 1:20 PM CDT Telemedicine [facility] Endocrinology Metabolism and Lipid [address] [facility] 5th [place] [address] [place] [phone] Belem De La Torre MD [address] [facility] [address] [place] [address] PCOS (polycystic ovarian syndrome) (Primary Dx); Class 3 severe obesity without serious comorbidity with body mass index (BMI) of 40.0 to 44.9 in adult, unspecified obesity type (CMS/HCC) Social History Tobacco Use Types Packs/Day Years Used Date Smoking Tobacco: Every Day Cigarettes Smokeless Tobacco: Never Alcohol Use Standard Drinks/Week Comments Yes 2 (1 standard drink = 0.6 oz pur e alcohol) Comments Unknown Sex and Gender Information Value Date Recorded Sex Assigned at Not on file 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 Gender Identity Not on file Sexual Orientation Not on file documented as of this encounter Last Filed Vital Signs Vital Sign Reading Time Taken Comments Blood Pressure - - Pulse - - Temperature 36.2 ??C (97.2 ??F) 12/21/2019 1:14 PM CD T Respiratory Rate - - Oxygen Saturation - - Inhaled Oxygen Concentration - - Weight 104.3 kg (230 lb) 12/21/2019 1:14 PM CDT Height 157.5 cm (5' 2 ) 12/21/2019 1:14 PM CDT Body Mass Index 42.07 12/21/2019 1:14 PM CDT documented in this encounter Ordered Prescriptions Prescription Sig Dispense Quantity Refills Last Filled Start Date End Date metFORMIN XR (GLUCOPHAGE XR) 500 mg 24 hr tabletIndications: PCOS (polycystic ovarian syndrome) Take 2 tablets (1,000 mg total) by mouth 2 (two) times a day after breakfast and dinner 360 tablet 3 12/21/2019 1 documented in this encounter Progress Notes * Mulu De La Torre MD - 12/21/2019 1:20 PM CDT Images from the original note were not included. Endocrine Patient Visit This was a telemedicine visit with Liliana Mancilla juan pablo which took place via real-time video connection with Zoom. During the visit, I was located in the office and the patient was located at home. The patient visit started at 1:20 and ended at 1:30 . Total encounter time was 20 minutes, which includes time spent today on pre charting, the patient encounter, and post charting. The patient has been informed that the visit may not be secure and acknowledged the information. I have explained the option of participating in a telephone or video visit during the [facility] emergency to the patient. After being given an opportunity to ask questions about and discuss this type of visit, the patient verbally consented to proceeding with the telephone/video visit.The patient understands that this service replaces an office visit and they may be billed and/or responsible for any applicable copayments. Mulu De La Torre MD Referring provider: Steph Garces MD Chief Complaint: obesity HPI: Initial visit on 06/15/2019 Patient is a 29 y.o. Lady with history of PCOS and recent diagnosis of crohn's disease on vedolizumab was referred to the endocrine clinic for obesity management in view of PCOS. Weight resisnce and walk 40 min She is also on ketogenic diet. Has been losing weight. PCOS history: Diagnosed with PCOS in 2013 when had abdominal pain and had an ulrasound done and was told she had an ovarian cyst. Menarche 13 years old , irregular periods since menarche. Also had issuse with facial hair. She has been on OCPs ( Drospirenone per patient's report) until February 2019. She stopped it because she got and she would like to conceive. She has taken metformin before, but couldn't tolerate due to severe diarrhea. Has been on glyburide in the past. She reports that her [facility]AF[facility]Y [facility]IST physician has checked her insulin level which was elevated, so was told she has insulin resistance. Her most recent A1c is 5.2% per her report. No OGTT performed. FH No known POCS in the family multiple family memebers suffered from diabetes complications Grandfather and uncle had premature heart disease Patient Active Problem List Diagnosis ??? Obesity ??? Chronic diarrhea ??? Iron deficiency anemia due to chronic blood loss ??? Crohn's disease of small intestine with other complication (CMS/HCC) ??? Healthcare maintenance ??? High risk medications (not anticoagulants) long-term use Current Outpatient Medications Medication ??? no122/iron/folic acid ( MULTI ORAL) ??? drospirenone-ethinyl estradioL (MIRA,OCELLA) 3-0.03 mg per tablet ??? liraglutide, weight loss, 3 mg/0.5 mL (18 mg/3 mL) pen injector ??? pen needle, diabetic (Comfort EZ Pen [place]) 32 gauge x 5/32 needle No current facility-administered medications for this visit. Review of Systems Review of systems per HPI and otherwise all other systems are negative. History reviewed. No pertinent past medical history. Past Surgical History: Procedure Laterality Date ??? ANKLE FRACTURE SURGERY 2008 ??? CHOLECYSTECTOMY 2017 (Not in a hospital admission) Allergies Allergen Reactions ??? Cefdinir Swelling ??? Clindamycin Swelling ??? Povidone-Iodine Rash And chlorahexadine ??? Sulfa (Sulfonamide Antibiotics) Swelling ??? Unclassified Drug Swelling ??? Morphine Itching Social History Tobacco Use ??? Smoking status: Current Every Day Smoker Packs/day: 0.50 ??? Smokeless tobacco: Never Used Substance Use Topics ??? Alcohol use: Yes Alcohol/week: 2.0 standard drinks Types: 2 Glasses of wine per week Family History Problem Relation Age of Onset ??? Diabetes Mother ??? Hypertension Mother ??? Cancer Mother's Sister ??? Cancer Maternal Grandmother ??? Cancer Maternal Grandfather ??? Diabetes Maternal Grandfather ??? Cancer Paternal Grandmother ??? Ulcerative colitis Paternal cousin ??? Crohn's disease Paternal cousin Labs: Component Latest Ref Rng & Units 07/02/2019 08/17/2019 Total Protein 6.1 - 8.4 g/dL 7.2 Albumin 3.5 - 5.2 g/dL 3.8 Calcium 8.6 - 10.3 mg/dL 9.1 BUN 7 - 23 mg/dL 9 Bilirubin, total 0.20 - 1.40 mg/dL 0.21 Alk phos 35 - 129 IU/L 83 AST 11 - 47 IU/L 13 ALT 6 - 53 IU/L 14 Creatinine 0.60 - 1.10 mg/dL 0.55 (L) Sodium 135 - 145 mmol/L 139 Potassium Lvl 3.3 - 5.1 mmol/L 4.2 Chloride 95 - 107 mmol/L 107 CO2 21 - 29 mmol/L 22 Glucose 64 - 99 mg/dL 101 (H) GFR >60.0 mL/min/1.73 m2 >90.0 GFR- >60.0 mL/min/1.73 m2 >90.0 Vitamin D, 25-hydroxy 30 - 80 ng/mL 19 (L) TSH 0.30 - 4.20 mcIUnit/mL 0.75 Prolactin 5.2 - 26.5 ng/mL 4.5 (L) HCG, quant 0.0 - 5.0 IUnits/L <5.0 Results for LILIANA MANCILLA ( ) as of 06/15/2019 18:15 Ref. Range 05/21/2019 12:44 Sodium Latest Ref Range: 135 - 145 mmol/L 140 Potassium Lvl Latest Ref Range: 3.3 - 5.1 mmol/L 3.7 Chloride Latest Ref Range: 95 - 107 mmol/L 101 CO2 Latest Ref Range: 21 - 29 mmol/L 24 BUN Latest Ref Range: 7 - 23 mg/dL 8 Creatinine Latest Ref Range: 0.60 - 1.10 mg/dL 0.57 (L) Glucose Latest Ref Range: 64 - 99 mg/dL 76 Calcium Latest Ref Range: 8.6 - 10.3 mg/dL 9.5 Total Protein Latest Ref Range: 6.1 - 8.4 g/dL 8.2 Albumin Latest Ref Range: 3.5 - 5.2 g/dL 4.7 Bilirubin, total Latest Ref Range: 0.20 - 1.40 mg/dL 0.28 GFR Latest Ref Range: >60.0 mL/min/1.73 m2 >90.0 GFR- Latest Ref Range: >60.0 mL/min/1.73 m2 >90.0 Alk phos Latest Ref Range: 35 - 129 IU/L 93 AST Latest Ref Range: 11 - 47 IU/L 19 ALT Latest Ref Range: 6 - 53 IU/L 27 Results for LILIANA MANCILLA ( ) as of 06/15/2019 18:15 Ref. Range 10/27/2018 10:04 Chol/HDL ratio Unknown 3 HDL Cholesterol Latest Ref Range: >=40 mg/dL 48 LDL Cholesterol Calc Latest Ref Range: <=129 mg/dL 78 Non-HDL Cholesterol Latest Units: mg/dL 104 Triglycerides Latest Ref Range: <=149 mg/dL 128 Results for LILIANA MANCILLA ( ) as of 06/15/2019 18:15 Ref. Range 10/27/2018 10:04 Vitamin D, 25-hydroxy Latest Ref Range: 30 - 80 ng/mL 17 (L) Assessment/Plan: Patient is a 28 y.o. Lady with history of PCOS and recent diagnosis of crohn's disease on vedolizumab is here for obesity management and PCOS. Plan/ recommendations: Prescribed metformin 500 mg BID to be increased to 1000 mg BID if tolerated. She would like to see a dietitian for assistance with weight loss. I have placed a referral request. Also gave her contact info for weight management clinic. RTC in 3 months Mulu De La Torre MD Instructor in Medicine Division of Endocrinology, Metabolism and Lipid [facility] documented in this encounter Plan of Treatment Not on file documented as of this encounter Visit Diagnoses Diagnosis PCOS (polycystic ovarian syndrome)- Primary Polycystic ovaries Class 3 severe obesity without serious comorbidity with body mass index (BMI) of 40.0 to 44.9 in adult, unspecified obesity type (HCC) documented in this encounter Care Teams Egg Smeller Relationship Specialty Start Date End Date Judy Fishman, BINU [address] [id number] PCP - General 07/31/18 documented as of this encounter
--- OUTSIDE RECORDS SUMMARY | 2024-04-11 06:17 | XMS_ITS | Encounter Summary ---
Author Organization [facility] Address [address] [place] [address] Phone Care Team Providers Care Machine Clothing Man Name Role Phone Judy Fishman MANAGER CONFIGURATION Primary Care Provider + Encounter Details Date Type Department Care Team (Late st Contact Info) Description 01/21/2020 2:40 PM CDT Lab [facility] Endocrinology Metabolism and Lipid [address] [facility] 5th [place] [address] [place] [address] Crohn's disease of small intestine with other complication (CMS/HCC) Social History Tobacco Use Types Packs/Day Years Used Date Smoking Tobacco: Every Day Cigarettes Smokeless Tobacco: Never Alcohol Use Standard Drinks/Week Comments Yes 2 (1 standard drink = 0.6 oz pur e alcohol) Comments Unknown Sex and Gender Information Value Date Recorded Sex Assigned at Not on file 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
--- OUTSIDE RECORDS SUMMARY | 2024-04-11 06:17 | XMS_ITS | Encounter Summary ---
Author Organization [facility] Address [address] [place] [address] Care Team Providers Care Web Solutions Architect Name Role Phone Kye Judy Brittani EIGHT SECTION BLOWER Primary Care Provider + Encounter Details Date Type Department Care Team (Late st Contact Info) Description 07/07/2020 4:20 PM CDT Lab [address] [address] Crohn's disease of small intestine with other complication (CMS/HCC) Social History Tobacco Use Types Packs/Day Years Used Date Smoking Tobacco: Every Day Cigarettes Smokeless Tobacco: Never Alcohol Use Standard Drinks/Week Comments Yes 2 (1 standard drink = 0.6 oz pur e alcohol) Comments Unknown Sex and Gender Information Value Date Recorded Sex Assigned at Not on file 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 Gender Identity Not on file Sexual Orientation Not on file documented as of this encounter Plan of Treatment Not on file documented as of this encounter Procedures Procedure Name Priority Date/Time Associated Diagnosis Comments CRP (ACUTE PHASE) Routine 07/07/2020 1:1 0 PM CDT Crohn's disease of small intestine with other complication (CMS/HCC) documented in this encounter Results * (ABNORMAL) CRP (acute phase) (07/07/2020 1:10 PM CDT) CRP 15.0(H) <=10.0 mg/L [facility] Blood specimen (specimen) 07/07/2020 1:10 PM CDT 07/07/2020 4:18 PM CDT us Trent Severino MD LAB BLOOD ORDERABLES Final Re sult [facility] Department [place] [address] documented in this encounter Visit Diagnoses Diagnosis Crohn's disease of small intestine with other complication (HCC) documented in this encounter Care Teams Web Solutions Architect Relationship Specialty Start Date End Date Jduy Fishman NP [address] [address] PCP - General 07/31/18 documented as of this encounter
--- OUTSIDE RECORDS SUMMARY | 2024-04-11 06:17 | XMS_ITS | Encounter Summary ---
Author Organization [facility] Address [address] [place] [address] Care Team Providers Care Workers' Compensation Claims Supervisor Name Role Phone KyeSimoneJudy Brittani SAFETY AND SKILL BASED PAY MANAGER Primary Care Provider + Encounter Details Date Type Department Care Team (Late st Contact Info) Description 01/21/2020 5:05 PM CDT Lab [address] [address] Crohn's disease of small intestine with other complication (CMS/HCC) Social History Tobacco Use Types Packs/Day Years Used Date Smoking Tobacco: Every Day Cigarettes Smokeless Tobacco: Never Alcohol Use Standard Drinks/Week Comments Yes 2 (1 standard drink = 0.6 oz pur e alcohol) Comments Unknown Sex and Gender Information Value Date Recorded Sex Assigned at Not on file Legal Sex Female 7:54 PM RETAIL BUSINESS 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 Gender Identity Not on file Sexual Orientation Not on file documented as of this encounter Plan of Treatment Not on file documented as of this encounter Procedures Procedure Name Priority Date/Time Associated Diagnosis Comments CRP (ACUTE PHASE) Routine 01/21/2020 2:1 5 PM CDT Crohn's disease of small intestine with other complication (CMS/HCC) documented in this encounter Results * (ABNORMAL) CRP (acute phase) (01/21/2020 2:15 PM CDT) CRP 14.5(H) <=10.0 mg/L [facility] Blood specimen (specimen) 01/21/2020 2:15 PM CDT 01/21/2020 5:05 PM CDT us Trent Severino MD LAB BLOOD ORDERABLES Final Re sult [facility] Department [place] [address] documented in this encounter Visit Diagnoses Diagnosis Crohn's disease of small intestine with other complication (HCC) documented in this encounter Care Teams Workers' Compensation Claims Supervisor Relationship Specialty Start Date End Date Judy Fishman NP [address] [address] PCP - General 07/31/18 documented as of this encounter
--- OUTSIDE RECORDS SUMMARY | 2024-04-11 06:17 | XMS_ITS | Encounter Summary ---
Author Organization [facility] Address [address] [place] [address] Care Team Providers Care Delivery Route Driver Name Role Phone Judy Fishman GANG PUSHER Primary Care Provider + Encounter Details Date Type Department Care Team (Late st Contact Info) Description 06/09/2020 4:35 PM DEBATE DIRECTOR Lab [address] [address] Crohn's disease of small intestine with other complication (CMS/HCC); Iron deficiency anemia due to chronic blood loss Social History Tobacco Use Types Packs/Day Years Used Date Smoking Tobacco: Every Day Cigarettes Smokeless Tobacco: Never Alcohol Use Standard Drinks/Week Comments Yes 2 (1 standard drink = 0.6 oz pur e alcohol) Comments Unknown Sex and Gender Information Value Date Recorded Sex Assigned at Not on file Legal Sex Female 7:54 PM DEBATE DIRECTOR Gender Identity Not on file Sexual Orientation Not on file documented as of this encounter Plan of Treatment Not on file documented as of this encounter Procedures Procedure Name Priority Date/Time Associated Diagnosis Comments PRISCILA QUALITATIVE WITH REFLEX TO PRISCILA QUANTITATIVE Routine 06/09/2020 2:30 PM DEBATE DIRECTOR DIFFERENTIAL AUTO Routine 06/09/2020 2:3 0 PM DEBATE DIRECTOR Crohn's disease of small intestine with other complication (CMS/HCC) Iron deficiency anemia due to chronic blood loss SMOOTH MUSCLE ANTIBODY, QUALITATIVE Routine 06/09/2020 2:30 PM DEBATE DIRECTOR Crohn's disease of small intestine with other complication (CMS/HCC) Iron deficiency anemia due to chronic blood loss MITOCHONDRIAL ANTIBODIES, QUALITATIVE Routine 06/09/2020 2:30 PM DEBATE DIRECTOR Crohn's disease of small intestine with other complication (CMS/HCC) Iron deficiency anemia due to chronic blood loss [id number] PHENOTYPE Routine 06/09/2020 2:30 PM DEBATE DIRECTOR Crohn's disease of small intestine with other complication (CMS/HCC) Iron deficiency anemia due to chronic blood loss CBC WITH AUTO DIFFERENTIAL Routine 06/09/2020 2:30 PM DEBATE DIRECTOR Crohn's disease of small intestine with other complication (CMS/HCC) Iron deficiency anemia due to chronic blood loss HEPATITIS C ANTIBODY Routine 06/09/2020 2:30 PM DEBATE DIRECTOR Crohn's disease of small intestine with other complication (CMS/HCC) Iron deficiency anemia due to chronic blood loss TISSUE TRANSGLUTAMINASE, IGA Routine 06/09/2020 2:30 PM DEBATE DIRECTOR Crohn's disease of small intestine with other complication (CMS/HCC) Iron deficiency anemia due to chronic blood loss CERULOPLASMIN Routine 06/09/2020 2:30 PM DEBATE DIRECTOR Crohn's disease of small intestine with other complication (CMS/HCC) Iron deficiency anemia due to chronic blood loss HEMOGLOBIN A1C Routine 06/09/2020 2:30 PM DEBATE DIRECTOR Crohn's disease of small intestine with other complication (CMS/HCC) Iron deficiency anemia due to chronic blood loss IGA Routine 06/09/2020 2:30 PM DEBATE DIRECTOR Crohn's disease of small intestine with other complication (CMS/HCC) Iron deficiency anemia due to chronic blood loss IGM Routine 06/09/2020 2:30 PM DEBATE DIRECTOR Crohn's disease of small intestine with other complication (CMS/HCC) Iron deficiency anemia due to chronic blood loss IGG Routine 06/09/2020 2:30 PM DEBATE DIRECTOR Crohn's disease of small intestine with other complication (CMS/HCC) Iron deficiency anemia due to chronic blood loss LIPID PANEL Routine 06/09/2020 2:30 PM DEBATE DIRECTOR Crohn's disease of small intestine with other complication (CMS/HCC) Iron deficiency anemia due to chronic blood loss COMPREHENSIVE METABOLIC PANEL Routine 06/09/2020 2:30 PM DEBATE DIRECTOR Crohn's disease of small intestine with other complication (CMS/HCC) Iron deficiency anemia due to chronic blood loss documented in this encounter Results * PRISCILA qualitative with reflex to PRISCILA Quantitative (06/09/2020 2:30 PM DEBATE DIRECTOR) PRISCILA Negative [facility] Comment: Interpretive Data Normal range for PRISCILA Qualitative Antibody = Negative. 1. PRISCILA is performed using indirect immunofluorescence against HEp-2 cells 2. PRISCILA titers are performed on all positive qualitative results. 3. A significantly positive PRISCILA result is defined as a positive nuclear fluorescence at a titer of 1:80 or greater. 4. 15% of normal people above age 65 have significantly positive PRISCILA results. ??5% or less of normal people age 65 or under have significantly positive PRISCILA results. Current interpretive data was last revised on 2019. Blood specimen (specimen) 06/09/2020 2:30 PM DEBATE DIRECTOR 06/09/2020 4:39 PM DEBATE DIRECTOR us Brian Mariscal MD LAB BLOOD ORDERABLES Fin al Result [facility] Department [place] [address] * (ABNORMAL) Differential, auto (06/09/2020 2:30 PM DEBATE DIRECTOR) Neutrophil abs 7.0(H) 1.7 - 6.5 K/cumm [facility] Imm gran abs 0.1 0.0 - 0.1 K/cumm [facility] Lymphocyte abs 4.1(H) 0.8 - 3.3 K/cumm [facility] Monocyte abs 0.6 0.2 - 0.8 K/cumm [facility] Eosinophil abs 0.6(H) 0.0 - 0.5 K/cumm [facility] Basophil abs 0.1 0.0 - 0.1 K/cumm [facility] Neutrophil pct 56.3 % [facility] Comment: Interpretive Data Percent cell count reference ranges are not reported, since discordance with absolute values may lead to misinterpretation of CBC data. Current Interpretive Data was last revised on 2017. Imm gran pct 0.5 % [facility] Comment: Interpretive Data Percent cell count reference ranges are not reported, since discordance with absolute values may lead to misinterpretation of CBC data. Current Interpretive Data was last revised on 2017. Lymphocyte pct 33.4 % [facility] Comment: Interpretive Data Percent cell count reference ranges are not reported, since discordance with absolute values may lead to misinterpretation of CBC data. Current Interpretive Data was last revised on 2017. Monocyte pct 4.8 % [facility] Comment: Interpretive Data Percent cell count reference ranges are not reported, since discordance with absolute values may lead to misinterpretation of CBC data. Current Interpretive Data was last revised on 2017. Eosinophil pct 4.6 % [facility] Comment: Interpretive Data Percent cell count reference ranges are not reported, since discordance with absolute values may lead to misinterpretation of CBC data. Current Interpretive Data was last revised on 2017. Basophil pct 0.4 % [facility] Comment: Interpretive Data Percent cell count reference ranges are not reported, since discordance with absolute values may lead to misinterpretation of CBC data. Current Interpretive Data was last revised on 2017. Blood specimen (specimen) 06/09/2020 2:30 PM DEBATE DIRECTOR 06/09/2020 4:39 PM DEBATE DIRECTOR us Brian Mariscal MD LAB BLOOD ORDERABLES Fin al Result [facility] Department [place] [address] * Mitochondrial antibodies, qualitative (06/09/2020 2:30 PM DEBATE DIRECTOR) Anti-mitochond rial Negative Negative [facility] Blood specimen (specimen) 06/09/2020 2:30 PM DEBATE DIRECTOR 06/09/2020 4:39 PM DEBATE DIRECTOR Narrative [facility] - 06/12/2020 12:18 PM DEBATE DIRECTOR Please take these orders to any lab. They are to be completed in May Please fax results to [phone] and call [phone] with any questions. Brian Mariscal MD LAB BLOOD ORDERABLES Fin al Result Performing Organization Address [facility] Co de Phone Number [facility] [employer] [address] * Smooth muscle antibody, qualitative (06/09/2020 2:30 PM DEBATE DIRECTOR) [facility] Anti-smooth muscle Negative Negative [facility] Blood specimen (specimen) 06/09/2020 2:30 PM DEBATE DIRECTOR 06/09/2020 4:39 PM DEBATE DIRECTOR Narrative [facility] - 06/12/2020 12:23 PM DEBATE DIRECTOR Please take these orders to any lab. They are to be completed in May Please fax results to [phone] and call [phone] with any questions. Brian Mariscal MD LAB BLOOD ORDERABLES Fin al Result Performing Organization Address [facility] Co de Phone Number [facility] Department of [employer] [address] * Tissue transglutaminase IgA (TGG-IgA Ab) (06/09/2020 2:30 PM DEBATE DIRECTOR) [facility] TTG ab, IgA <0.5 <=14.9 units/mL [facility] Comment: Interpretive data Negative: <15 units/mL Positive: > or equal to 15 units/mL Current interpretive data was last revised on 2016. Blood specimen (specimen) 06/09/2020 2:30 PM DEBATE DIRECTOR 06/09/2020 4:39 PM DEBATE DIRECTOR Narrative [facility] - 06/10/2020 12:17 PM DEBATE DIRECTOR Please take these orders to any lab. They are to be completed in May Please fax results to [phone] and call [phone] with any questions. Brian Mariscal MD LAB BLOOD ORDERABLES Fin al Result Performing Organization Address [facility] Co de Phone Number [facility] [employer] [address] * IgG (06/09/2020 2:30 PM DEBATE DIRECTOR) Immunoglobulin G 1,168.0 700.0 - 1,600.0 mg/dL [facility] Blood specimen (specimen) 06/09/2020 2:30 PM DEBATE DIRECTOR 06/09/2020 4:39 PM DEBATE DIRECTOR Narrative [facility] - 06/09/2020 5:16 PM DEBATE DIRECTOR Please take these orders to any lab. They are to be completed in May Please fax results to [phone] and call [phone] with any questions. Brian Mariscal MD LAB BLOOD ORDERABLES Fin al Result Performing Organization Address [facility] [place] [address] * IgA (06/09/2020 2:30 PM DEBATE DIRECTOR) [facility] Immunoglobulin A 181.0 70.0 - 400.0 mg/dL [facility] Blood specimen (specimen) 06/09/2020 2:30 PM DEBATE DIRECTOR 06/09/2020 4:39 PM DEBATE DIRECTOR Narrative [facility] - 06/09/2020 5:16 PM DEBATE DIRECTOR Please take these orders to any lab. They are to be completed in May Please fax results to [phone] and call [phone] with any questions. Brian Mariscal MD LAB BLOOD ORDERABLES Fin al Result Performing Organization Address [facility] de Phone Number [facility] [employer] [address] * IgM (06/09/2020 2:30 PM DEBATE DIRECTOR) Pathologist [facility] Immunoglobulin M 230.0 40.0 - 230.0 mg/dL [facility] Blood specimen (specimen) 06/09/2020 2:30 PM DEBATE DIRECTOR 06/09/2020 4:39 PM DEBATE DIRECTOR Narrative [facility] - 06/09/2020 5:16 PM DEBATE DIRECTOR Please take these orders to any lab. They are to be completed in May Please fax results to [phone] and call [phone] with any questions. Brian Mariscal MD LAB BLOOD ORDERABLES Fin al Result Performing Organization Address [facility] [place] [address] * Hepatitis C antibody (06/09/2020 2:30 PM DEBATE DIRECTOR) [facility] Hep C Ab Nonreactive Nonreactive [facility] Comment:Antibodies to HCV no t detected. Does NOT exclude the possibility of recent exposure to HCV. Blood specimen (specimen) 06/09/2020 2:30 PM DEBATE DIRECTOR 06/09/2020 4:39 PM DEBATE DIRECTOR Narrative [facility] - 06/09/2020 6:18 PM DEBATE DIRECTOR Please take these orders to any lab. They are to be completed in May Please fax results to [phone] and call [phone] with any questions. Brian Mariscal MD LAB MICROBIOLOGY - GENER AL ORDERABLES Edited Result - Final Performing Organization Address [facility] Co de Phone Number [facility] Department of [employer] [address] * Ceruloplasmin (06/09/2020 2:30 PM DEBATE DIRECTOR) Pathologist [facility] Ceruloplasmin 31.9 16.0 - 45.0 mg/dL [facility] Blood specimen (specimen) 06/09/2020 2:30 PM DEBATE DIRECTOR 06/09/2020 4:39 PM DEBATE DIRECTOR Narrative [facility] - 06/09/2020 5:16 PM DEBATE DIRECTOR Please take these orders to any lab. They are to be completed in May Please fax results to [phone] and call [phone] with any questions. us Brian Mariscal MD LAB BLOOD ORDERABLES Fin al Result [facility] Department [place] [address] * Xxjpj-7-ohxtzijsqzp phenotype (06/09/2020 2:30 PM DEBATE DIRECTOR) Pathologist [facility] alpha-1 antitrypsin 156 100 - 190 mg/dL [facility] Comment: ADDITIONAL INFORMATION Method: Nephelometry Test Performed by: [place] [address] [employer] Miner: Shaun Benitez M.D. Ph.D.; CLIA# [id number] alpha-1 antitrypsin phenotype MM bands [facility] Comment: A single M isoform is detected. In the context of a normal yxehp-2-dnvuwowhexg concentration, this is consistent with an MM phenotype. ADDITIONAL INFORMATION Method: Isoelectric Focusing, This assay identifies the phenotype of the circulating aplnv-4-rmvmhuhdggh (A1A) protein. If the patient is on replacement therapy or has been recently transfused, the phenotype will detect patient and replacement or transfused plasma A1A protein. This test also cannot detect a null allele which could be responsible for an A1A deficiency. Blood specimen (specimen) 06/09/2020 2:30 PM DEBATE DIRECTOR 06/09/2020 5:31 PM DEBATE DIRECTOR Narrative [facility] - 06/16/2020 4:10 PM DEBATE DIRECTOR Please take these orders to any lab. They are to be completed in May Please fax results to [phone] and call [phone] with any questions. us Brian Mariscal MD LAB BLOOD ORDERABLES Fin al Result [facility] Department [place] [address] * (ABNORMAL) Lipid panel (06/09/2020 2:30 PM DEBATE DIRECTOR) Cholesterol 133 30 - 199 mg/dL [facility] Comment: Interpretive Data Ages < or = 19 years ??Acceptable: ? <170 mg/dL ??Borderline high: ??170-199 mg/dL ??High: ? >or= 200 mg/dL Ages > or = 20 years ??Desirable: ?<200 mg/dL ??Borderline high: ??200-239 mg/dL ??High: ? >or= 240 mg/dL Literature References: 1. Expert Panel on Integrated Guidelines for Cardiovascular Health and Risk Reduction in Children and Adolescents. Pediatrics 2011;128:S213 2. NCEP Expert Panel. Circulation 2004;110:227 Current Interpretive Data was last revised on 2017. Triglycerides 114 <=149 mg/dL [facility] Comment: Interpretive Data Ages < or = 9 years ??Acceptable: ? <75 mg/dL ??Borderline high: ??75-99 mg/dL ??High: ? >or= 100 mg/dL Ages 10 to 20 years ??Acceptable: ? <90 mg/dL ??Borderline high: ??90-129 mg/dL ??High: ? >or= 130 mg/dL Ages > or = 20 years ??Desirable: ?<150 mg/dL ??Borderline high: ??150-199 mg/dL ??High: ? 200-499 mg/dL ?Very high: ?? >or= 499 mg/dL Literature References: 1. Expert Panel on Integrated Guidelines for Cardiovascular Health and Risk Reduction in Children and Adolescents. Pediatrics 2011;128:S213 2. NCEP Expert Panel. Circulation 2004;110:227 Current Interpretive Data was last revised on 2017. HDL 33(L) >=40 mg/dL [facility] Comment: Interpretive Data Ages < or = 19 years ??Acceptable: ? >45 mg/dL ??Borderline low: ?? 40-45 mg/dL ??Low: ? <40 mg/dL Ages > or = 20 years ??Desirable: ?>or= 60 mg/dL ??Low: ? <40 mg/dL Literature References: 1. Expert Panel on Integrated Guidelines for Cardiovascular Health and Risk Reduction in Children and Adolescents. Pediatrics 2011;128:S213 2. NCEP Expert Panel. Circulation 2004;110:227 Current Interpretive Data was last revised on 2017. LDL, calculated 77 <=129 mg/dL [facility] Comment: Interpretive Data Ages < or = 19 years ??Acceptable: ? <110 mg/dL ??Borderline high: ??110-129 mg/dL ??High: ?>or= 130 mg/dL Ages > or = 20 years ??Optimal: ? <100 mg/dL ??Near optimal: ?100-129 mg/dL ??Borderline high: ?? 130-159 mg/dL ??High: ?>160 mg/dL Literature References: 1. Expert Panel on Integrated Guidelines for Cardiovascular Health and Risk Reduction in Children and Adolescents. Pediatrics 2011;128:S213 2. NCEP Expert Panel. Circulation 2004;110:227 Current Interpretive Data was last revised on 2017. Non-HDL Cholesterol 100 mg/dL [facility] Comment: Interpretive Data Ages < or = 19 years ??Acceptable: ?<120 mg/dL ??Borderline high: ??120-144 mg/dL ??High: ?>145 mg/dL Ages > or = 20 years ??When triglycerides are >200 mg/dL, Non-HDL cholesterol is a secondary target of ? therapy with treatment goals that are 30 mg/dL greater than the LDL cholesterol target. ? Literature References: 1. Expert Panel on Integrated Guidelines for Cardiovascular Health and Risk Reduction in Children and Adolescents. Pediatrics 2011;128:S213 2. NCEP Expert Panel. Circulation 2004;110:227 Current Interpretive Data was last revised on 2017. Chol/HDL ratio 4 [facility] Blood specimen (specimen) 06/09/2020 2:30 PM DEBATE DIRECTOR 06/09/2020 4:39 PM DEBATE DIRECTOR Narrative [facility] - 06/09/2020 5:17 PM DEBATE DIRECTOR Please take these orders to any lab. They are to be completed in May Please fax results to [phone] and call [phone] with any questions. us Brian Mariscal MD LAB BLOOD ORDERABLES Fin al Result [facility] Department [place] [address] * (ABNORMAL) Hemoglobin A1c (06/09/2020 2:30 PM DEBATE DIRECTOR) Hgb A1C 5.8(H) 4.0 - 5.6 % [facility] Estimated Average Glucose 120 mg/dL [facility] Comment: The ADA recommends reporting an estimated Average Glucose (eAG) with all Hemoglobin A1c results using the equation derived from a study of 507 normal and diabetic adults. ??Minority populations were underrepresented and children were not included. ?? (Diabetes Care 31:8779-4823, 2008). ??The eAG is not equivalent to a fasting glucose. Blood specimen (specimen) 06/09/2020 2:30 PM DEBATE DIRECTOR 06/09/2020 4:39 PM DEBATE DIRECTOR Narrative [facility] - 06/09/2020 5:06 PM DEBATE DIRECTOR Please take these orders to any lab. They are to be completed in May Please fax results to [phone] and call [phone] with any questions. Brian Mariscal MD LAB BLOOD ORDERABLES Fin al Result [facility] Department [place] [address] * (ABNORMAL) CBC with auto differential (06/09/2020 2:30 PM DEBATE DIRECTOR) WBC 12.4(H) 3.8 - 9.9 K/cumm [facility] Hgb 12.1 11.9 - 15.5 g/dL [facility] Hct 37.2 35.6 - 45.5 % [facility] Plt 353 150 - 400 K/cumm [facility] MPV 10.2 9.1 - 12.3 fL [facility] RBC 4.26 3.90 - 5.20 M/cumm [facility] MCV 87.3 81.3 - 96.4 fL [facility] MCH 28.4 27.1 - 33.3 pg [facility] MCHC 32.5 32.3 - 35.7 g/dL [facility] RDW CV 13.6 11.1 - 14.9 % [facility] RDW SD 42.9 35.7 - 48.1 fL [facility] NRBC abs 0.00 0.00 - 0.01 K/cumm [facility] Blood specimen (specimen) 06/09/2020 2:30 PM DEBATE DIRECTOR 06/09/2020 4:39 PM DEBATE DIRECTOR Narrative [facility] - 06/09/2020 4:57 PM DEBATE DIRECTOR Please take these orders to any lab. They are to be completed in May Please fax results to [phone] and call [phone] with any questions. us Brian Mariscal MD LAB BLOOD ORDERABLES Fin al Result [facility] Department [place] [address] * Comprehensive metabolic panel (06/09/2020 2:30 PM DEBATE DIRECTOR) Sodium 139 135 - 145 mmol/L [facility] Potassium, pl 3.5 3.3 - 4.9 mmol/L [facility] Chloride 106 97 - 110 mmol/L [facility] CO2 26 22 - 32 mmol/L [facility] Anion gap 7 2 - 15 mmol/L [facility] BUN 8 8 - 25 mg/dL [facility] Creatinine 0.62 0.60 - 1.10 mg/dL [facility] Glucose 86 70 - 199 mg/dL [facility] Comment: Interpretive Data Fasting glucose >/= 126 [...] interpretive data was last revised 2017. Calcium 9.4 8.5 - 10.3 mg/dL [facility] Bilirubin, total 0.3 0.1 - 1.2 mg/dL [facility] Protein, pl 7.7 6.5 - 8.5 g/dL [facility] Albumin 4.3 3.5 - 5.0 g/dL [facility] Alk phos 84 40 - 130 Units/L [facility] ALT 21 7 - 45 Units/L [facility] AST 20 10 - 45 Units/L [facility] Blood specimen (specimen) 06/09/2020 2:30 PM DEBATE DIRECTOR 06/09/2020 4:39 PM DEBATE DIRECTOR Narrative [facility] - 06/09/2020 5:17 PM DEBATE DIRECTOR Please take these orders to any lab. They are to be completed in May Please fax results to [phone] and call [phone] with any questions. us Brian Mariscal MD LAB BLOOD ORDERABLES Fin al Result [facility] Department [place] [address] documented in this encounter Visit Diagnoses Diagnosis Crohn's disease of small intestine with other complication (HCC) Iron deficiency anemia due to chronic blood loss Iron deficiency anemia secondary to blood loss (chronic) documented in this encounter Care Teams Delivery Route Driver Relationship Specialty Start Date End Date Judy Fishman NP [address] [address] PCP - General 07/31/18 documented as of this encounter
--- OUTSIDE RECORDS SUMMARY | 2024-04-11 06:17 | XMS_ITS | Encounter Summary ---
Author Organization [facility] Address [address] [place] [address] Phone Care Team Providers Care Last Inserter Name Role Phone Judy Fishman MACHINIST CLASS B Primary Care Provider + Reason for Visit * Episode Based Medications (Routine) - Pending Review Specialty Diagnoses / Procedures Referred By Mary roberson Referred To Contact Diagnoses Crohn's disease of small intestine with other complication (HCC) Procedures [place] INJECTION, VEDOLIZUMAB Trent Severino MD [address] [place] [address] Phone: tel: fax: [facility] Infusion Therapy [facility] Advanced Medicine 5th [place] [address] [place] [address] Phone: tel: fax: Referral ID Status Reason Start Date Expiration Date V isits Requested Visits Authorized [id number] Pending Review 09/26/2021 09/26/2022 41 [phone] Encounter Details Date Type Department Care Team (Late st Contact Info) Description 08/17/2019 10:00 AM CDT Infusion [facility] Infusion Therapy 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 VSS. Denies illness. Labs obtained. Tolerated infusion without adverse reaction. Follow up scheduled in 6 weeks. No concerns. Ambulated from the infusion center without difficulty. documented in this encounter Plan of Treatment Not on file documented as of this encounter Procedures Procedure Name Priority Date/Time Associated Diagnosis Comments CBC WITH AUTO DIFFERENTIAL Routine 08/17/2019 9:54 AM CDT Crohn's disease of small intestine with other complication (CMS/HCC) COMPREHENSIVE METABOLIC PANEL Routine 08/17/2019 9:54 AM CDT Crohn's disease of small intestine with other complication (CMS/HCC) documented in this encounter Results * (ABNORMAL) CBC with auto differential (08/17/2019 9:54 AM CDT) White Blood Count 11.3(H) 3.6 - 11.2 K/uL [facility] RBC 4.48 3.63 - 4.92 M/uL [facility] Hemoglobin 12.4 11.9 - 15.5 g/dL [facility] Hematocrit 38.2 36.1 - 44.3 % [facility] MCV 85.3 80.0 - 97.6 fL [facility] MCH 27.6 26.7 - 33.7 pg [facility] MCHC 32.3(L) 32.7 - 35.5 g/dL [facility] RBC Dist Width 13.3 12.3 - 17.0 % [facility] Platelet Count 340 140 - 440 K/uL [facility] MPV 8.9 6.8 - 10.4 fL [facility] Neutrophils % 59.2 38.7 - 74.5 % [facility] Lymphocyte % 29.4 20.0 - 54.3 % [facility] Monocytes % 5.0 4.3 - 13.5 % [facility] Eosinophils % 6.0 0.0 - 6.0 % [facility] Basophil % 0.4 0.0 - 3.0 % [facility] Absolute Neutrophil 6.7(H) 1.8 - 6.6 K/uL [facility] Absolute Lymphocyte 3.3 0.8 - 3.3 K/uL [facility] Absolute Monocyte 0.6 0.2 - 1.2 K/uL [facility] Absolute Eosinophil 0.7(H) 0.0 - 0.5 K/uL [facility] Absolute Basophil 0.0 0.0 - 0.2 K/uL [facility] Nucleated RBC % 0.2 0.0 - 0.4 /100 WBC [facility] Blood specimen (specimen) 08/17/2019 9:54 AM CDT 08/17/2019 10:19 AM CDT us Trent Severino MD LAB BLOOD ORDERABLES Final Re sult [facility]ILIO [facility] * (ABNORMAL) Comprehensive metabolic panel (08/17/2019 9:54 AM CDT) Total Protein 7.2 6.1 - 8.4 g/dL [facility] Albumin 3.8 3.5 - 5.2 g/dL [facility] Calcium 9.1 8.6 - 10.3 mg/dL [facility] Comment:Repeated and Verifie d BUN 9 7 - 23 mg/dL [facility] Total Bilirubin 0.21 0.20 - 1.40 mg/dL [facility] Alk Phos, Total 83 35 - 129 IU/L [facility] AST (SGOT) 13 11 - 47 IU/L [facility] ALT (SGPT) 14 6 - 53 IU/L [facility] Creatinine 0.55(L) 0.60 - 1.10 mg/dL [facility] Sodium 139 135 - 145 mmol/L [facility] Potassium 4.2 3.3 - 5.1 mmol/L [facility] Chloride 107 95 - 107 mmol/L [facility] CO2 Content 22 21 - 29 mmol/L [facility] Glucose 101(H) 64 - 99 mg/dL [facility] Comment: NONFASTING GLUCOSE RANGE = 64-199 mg/dL FASTING GLUCOSE 64 - 99 = NORMAL FASTING GLUCOSE 100 - 125 = IMPAIRED FASTING GLUCOSE FASTING GLUCOSE >=126 = PROVISIONAL DIAGNOSIS OF DIABETES eGFR NON-AFR. [place] >90.0 >60.0 mL/min/1.7 3 m2 [facility] eGFR >90.0 >60.0 mL/min/1.7 3 m2 [facility] Blood specimen (specimen) (Blood, Venous) 08/17/2019 9:54 AM CDT 08/17/2019 10:19 AM CDT Trent Severino MD LAB BLOOD [...] mL/hr, Administer over 30 Minutes, Once, On Fri08/17/19 at 1100, For 1 doseIndications:Crohn's disease of small intestine with other complication (HCC) New Bag 08/17/2019 10:00 AM CDT 300 mg 510 mL/hr documented in this encounter Orders Medications Ordered That Jonathan ht Not Have Been Administered Count Last Ordered Date First Ordered Date vedolizumab (ENTYVIO) 300 mg in sodium chloride 0.9% 250 mL IVPB 1 08/17/2019 Nursing Count Last Ordered Date First Orde red Date DAILY WEIGHTS 1 08/17/2019 ONCBCN NO PREMEDS NEEDED 1 08/17/2019 ONCBCN NURSING COMMUNICATION [id number] 1 0 08/17/2019 VITAL SIGNS PRE-INFUSION 1 08/17/2019 documented in this encounter Care Teams Last Inserter Relationship Specialty Start Date End Date Judy Fishman NP [address] [employer] [place] [address] PCP - General 07/31/18 documented as of this encounter
--- OUTSIDE RECORDS SUMMARY | 2024-04-11 06:17 | XMS_ITS | Encounter Summary ---
Author Organization [facility] Address [address] [place] [address] Phone Care Team Providers Care Runner Out Name Role Phone Judy Fishman PRINCIPAL SYSTEM SOFTWARE ENGINEER Primary Care Provider + Reason for Visit * Episode Based Medications (Routine) - Pending Review Specialty Diagnoses / Procedures Referred By Mary roberson Referred To Contact Diagnoses Crohn's disease of small intestine with other complication (HCC) Procedures [place] INJECTION, VEDOLIZUMAB Trent Severino MD [address] [place] [address] Phone: tel: fax: [facility] Infusion Therapy [facility] Advanced Medicine 5th [place] [address] [place] [address] Phone: tel: fax: Referral ID Status Reason Start Date Expiration Date V isits Requested Visits Authorized [id number] Pending Review 09/26/2021 09/26/2022 41 [phone] Encounter Details Date Type Department Care Team (Late st Contact Info) Description 09/24/2019 1:00 PM CDT Infusion [facility] Infusion Therapy 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 VSS. Denies illness. No labs drawn during this infusion. Tolerated infusion without adverse reaction. Follow up scheduled in 6 weeks. No concerns. Pt ambulated frominfusion center without difficulty. documented in this encounter [...] mL/hr, Administer over 30 Minutes, Once, On Fri09/24/19 at 1400, For 1 doseIndications:Crohn's disease of small intestine with other complication (HCC) New Bag 09/24/2019 1:30 PM CDT 300 mg 5 10 mL/hr documented in this encounter Orders Medications Ordered That Jonathan ht Not Have Been Administered Count Last Ordered Date First Ordered Date vedolizumab (ENTYVIO) 300 mg in sodium chloride 0.9% 250 mL IVPB 1 09/24/2019 Nursing Count Last Ordered Date First Orde red Date DAILY WEIGHTS 1 09/24/2019 ONCBCN NO PREMEDS NEEDED 1 09/24/2019 ONCBCN NURSING COMMUNICATION [id number] 1 0 09/24/2019 ONCBCN PROVIDER COMMUNICATION 1 1 0 VITAL SIGNS PRE-INFUSION 1 09/24/2019 documented in this encounter Care Teams Runner Out Relationship Specialty Start Date End Date Judy Fishman NP [address] [address] PCP - General 07/31/18 documented as of this encounter
--- OUTSIDE RECORDS SUMMARY | 2024-04-11 06:17 | XMS_ITS | Encounter Summary ---
Author Organization [facility] Address [address] [place] [address] Phone Care Team Providers Care Health Science Writer Name Role Phone [place] FUSION OPERATOR Primary Care Provider + Reason for Visit * Reason Onset Date Comments Prior Auth 08/23/2019 Saxenda Encounter Details Date Type Department Care Team (Late st Contact Info) Description 08/23/2019 Telephone [facility] Endocrinology Metabolism and Lipid [address] [facility] Advanced Medicine 5th [place] [address] [place] [address] Cornelius Grant, EMT Prior Auth (Hussain ) Social History Tobacco Use Types Packs/Day Years Used Date Smoking Tobacco: Every Day Cigarettes Smokeless Tobacco: Never Alcohol Use Standard Drinks/Week Comments Yes 2 (1 standard drink = 0.6 oz pur e alcohol) Comments Unknown Sex and Gender Information Value Date Recorded Sex Assigned at Not on file 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 Gender Identity Not on file Sexual Orientation Not on file documented as of this encounter Miscellaneous Notes * Telephone Encounter - Kim Alexandre MA - 08/23/2019 9:33 AM CDT [place]: [id number] [employer] Saxenda 18MG/3ML pen-injectors Prior Auth Status: Denied Awaiting details on denial * Telephone Encounter - Cornelius Grant EMT - 08/23/2019 8:05 AM CDT Saxenda 0.6 mg daily Sig: Indications: weight loss management for an obese person 0.6 mg once daily for 1 week; increaseby 0.6 mg daily at weekly intervals to a target dose of 3 daily Diagnosis Association: Class 3 severe obesity without serious comorbidity with body mass index (BMI) of 40.0 to 44.9 in adult, unspecified obesity type (CMS/[facility]) (E66.01 , Z68.41) documented in this encounter Plan of Treatment Not on file documented as of this encounter Visit Diagnoses Not on filedocumented in this encounter Care Teams Health Science Writer Relationship Specialty Start Date End Date Judy Fishman NP [address] [address] PCP - General 07/31/18 documented as of this encounter
--- OUTSIDE RECORDS SUMMARY | 2024-04-11 06:17 | XMS_ITS | Encounter Summary ---
Author Organization [facility] Address [address] [place] [address] Phone Care Team Providers Care Government Documents Librarian Name Role Phone Judy Fishman BANQUET COORDINATOR Primary Care Provider + Reason for Visit * Episode Based Medications (Routine) - Pending Review Specialty Diagnoses / Procedures Referred By Mary roberson Referred To Contact Diagnoses Crohn's disease of small intestine with other complication (HCC) Procedures [place] INJECTION, VEDOLIZUMAB Trent Severino MD [address] [place] [address] Phone: tel: fax: [facility] Infusion Therapy [facility] Advanced Medicine 5th [place] [address] [place] [address] Phone: tel: fax: Referral ID Status Reason Start Date Expiration Date V isits Requested Visits Authorized [id number] Pending Review 09/26/2021 09/26/2022 41 41 Encounter Details Date Type Department Care Team (Late st Contact Info) Description 06/09/2020 1:00 PM 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 Infusion [facility] Infusion Therapy [facility] Advanced Medicine 5th [place] [address] [place] [address] Crohn's disease of small intestine [...] on file Legal Sex Female 7:54 PM 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 Gender Identity Not on file Sexual Orientation Not on file documented as of this encounter Last Filed Vital Signs Vital Sign Reading Time Taken Comments Blood Pressure 107/71 06/09/2020 1:50 PM 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 Pulse 82 06/09/2020 1:50 PM 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 Temperature 36.9 ??C (98.4 ??F) 06/09/2020 12:[address] Respiratory Rate - - Oxygen Saturation - - Inhaled Oxygen Concentration - - Weight - - Height - - Body Mass Index - - documented in this encounter Progress Notes * Amaya Monroe RN - 06/09/2020 1:00 PM CST Pt arrived to clinic and verbalized understanding of Entyvio infusion. Pt denies s/s illness today.22g IV established in left ac x 1 attempt. Pt resting quietly, no complaints at this time. ICAL CARE UNIT NURSE documented in this encounter Plan of Treatment [...] mL/hr, Administer over 30 Minutes, Once, On Fri06/09/20 at 1430, For 1 doseIndications:Crohn's disease of small intestine with other complication (HCC) New Bag 06/09/2020 1:05 PM 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 300 mg 5 10 mL/hr documented in this encounter Orders Medications Ordered That Jonathan ht Not Have Been Administered Count Last Ordered Date First Ordered Date vedolizumab (ENTYVIO) 300 mg in sodium chloride 0.9% 250 mL IVPB 1 06/09/2020 Nursing Count Last Ordered Date First Orde red Date DAILY WEIGHTS 1 06/09/2020 ONCBCN NO PREMEDS NEEDED 1 06/09/2020 ONCBCN NURSING COMMUNICATION [id number] 1 0 06/09/2020 VITAL SIGNS PRE-INFUSION 1 06/09/2020 documented in this encounter Care Teams Government Documents Librarian Relationship Specialty Start Date End Date Judy Fishman NP [address] [address] PCP - General 07/31/18 documented as of this encounter
--- OUTSIDE RECORDS SUMMARY | 2024-04-11 06:17 | XMS_ITS | Encounter Summary ---
Author Organization [facility] Address [address] [place] [address] Phone Care Team Providers Care Dietary Tech Name Role Phone Judy Fishman DEMONSTRATOR ELECTRIC GAS APPLIANCES Primary Care Provider + Reason for Visit * Episode Based Medications (Routine) - Pending Review Specialty Diagnoses / Procedures Referred By Mary roberson Referred To Contact Diagnoses Crohn's disease of small intestine with other complication (HCC) Procedures [place] INJECTION, VEDOLIZUMAB Trent Severino MD [address] [place] [address] Phone: tel: fax: [facility] Infusion Therapy [facility] Advanced Medicine 5th [place] [address] [place] [address] Phone: tel: fax: Referral ID Status Reason Start Date Expiration Date V isits Requested Visits Authorized [id number] Pending Review 09/26/2021 09/26/2022 41 41 Encounter Details Date Type Department Care Team (Late st Contact Info) Description 09/01/2020 1:00 PM CDT Infusion [facility] Infusion Therapy 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 Gender Identity Not on file Sexual Orientation Not on file documented as of this encounter Progress Notes * Sona Ruiz RN - 09/01/2020 1:00 PM CDT Pt to infusion center [...] mL/hr, Administer over 30 Minutes, Once, On Fri09/01/20 at 1345, For 1 doseIndications:Crohn's disease of small intestine with other complication (HCC) New Bag 09/01/2020 12:50 PM CDT 300 mg 510 mL/hr documented in this encounter Orders Medications Ordered That Jonathan ht Not Have Been Administered Count Last Ordered Date First Ordered Date vedolizumab (ENTYVIO) 300 mg in sodium chloride 0.9% 250 mL IVPB 1 09/01/2020 documented in this encounter Care Teams Dietary Tech Relationship Specialty Start Date End Date Judy Fishman NP [address] [address] PCP - General 07/31/18 documented as of this encounter
--- OUTSIDE RECORDS SUMMARY | 2024-04-11 06:17 | XMS_ITS | Encounter Summary ---
Author Organization [facility] Address [address] [place] [address] Phone Care Team Providers Care Can Tester Name Role Phone Judy Fishman NP Primary Care Provider + Encounter Details Date Type Department Care Team (Late st Contact Info) Description 06/15/2020 Documentation [facility] Gastroenterology [address] [facility] 8th [place] [address] [place] [address] Elena Walden LPN Social History Tobacco Use [...] of this encounter Progress Notes * Elena Walden LPN - 06/15/2020 2:45 PM CST rov scheduled and mailed Referral for medical weight loss placed HOUSE KEEPER documented in this encounter Plan of Treatment Not on file documented as of this encounter Visit Diagnoses Diagnosis BMI 40.0-44.9, adult (HCC)- Primary NAFLD (nonalcoholic fatty liver disease) documented in this encounter Care Teams Can Tester Relationship Specialty Start Date End Date KyeJudy patel NP [address] [address] PCP - General 07/31/18 documented as of this encounter
--- OUTSIDE RECORDS SUMMARY | 2024-04-11 06:17 | XMS_ITS | Encounter Summary ---
Author Organization [facility] Address [address] [place] [address] Phone Care Team Providers Care Behavioral Instructor Name Role Phone Judy Fishman NP Primary Care Provider + Encounter Details Date Type Department Care Team (Late st Contact Info) Description 10/05/2019 3:30 PM CDT Telemedicine [facility] Gastroenterology [facility] Advanced Medicine 8th [place] [address] [place] [address] Trent Severino MD [address] [place], [place] [id number] Crohn's disease of small intestine with other [...] on file 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 During thevisit, I was located [place], [place] and the patient was located [place], [place]. The session started at 1534 and ended at 1559. The patient has been informed that the visit may not be secure and acknowledged the information. I have explained the option of participating in a telephone or video visit during the COVID-19 [facility] emergency to the patient. After being given an opportunity to ask questions about and discuss this type of visit, the patient verbally consented to proceeding with the telephone / video visit. The patient understands that this service replaces an office visit and they may be billed and/or responsible for any applicable copayments. Referred here Primary Care Physician: Judy Fishman NP Consult requested by: Judy Fishman, * Chief Complaint: Crohn's Disease HPI Liliana Mancilla, is a 29 y.o.female who presents for follow up of her ileal crohn's disease diagnosed in July 2018 after presentation with weight loss and diarrhea. She was started on entyvio in December 2018. She was noted to have a low entyvio level in March and she was advanced to every 6 week infusions. Her last colonoscopy was at time of diagnosis by Dr. Gomez at an outside hospital. She has a family history of crohn's with a paternal aunt and cousins with a history of Crohn's. MRE 03/2019 showed improvement in terminal ieal inflammation. Entyvio level repeated 08/17/2019 and was 14. Overall, she is feeling well. Has noted improvement in symptoms since advancement to every 6 week entyvio. No longer having anticipatory symptoms. Has some increased frequency for about 2 days after an infusion and around menstration. Also has some abdominal pain below her umbilicus around menstrati on. In general, having 2 stools daily on average. Denies any hematochezia. Denies any nausea or vomiting. Denies any joint pain. No past medical history on file. Past Surgical History: Procedure Laterality Date ??? ANKLE FRACTURE SURGERY 2008 ??? CHOLECYSTECTOMY 2017 Patient Active Problem List Diagnosis Date Noted ??? High risk medications (not anticoagulants) long-term [...] Prior surgeries: none Endoscopies: [facility] Imaging: MRE 03/2019 Interval improvement of distal terminal ileum wall thickening. No new areas of small bowel wall thickening. No fluid collections or evidence of penetrating disease MRE 11/2018 Slight wall thickening of the distalmost ileum with associated minimal active inflammation, without penetrating disease or stricture. ??? Iron deficiency anemia due to chronic blood loss 11/13/2018 ??? Chronic diarrhea 11/08/2018 ??? Obesity 10/27/2018 Current Outpatient Medications Medication Sig Dispense Refill [...] of 3 daily 5 pen 3 ??? pen needle, diabetic (Comfort EZ Pen Jermyn) 32 gauge x 5/32 needle Use with Saxenda pen 100 each 3 ??? no122/iron/folic acid ( MULTI ORAL) Take by mouth daily No current facility-administered medications for this visit. Cefdinir; Clindamycin; Povidone-iodine; Sulfa (sulfonamide antibiotics); Unclassified drug; and Morphine Family History Problem Relation Age [...] orders placed or performed in visit on 08/17/19 Vedolizumab with Reflex to Ab Result Value Ref Range Vedolizumab Qn 14.0 (L) mcg/mL CRP (acute phase) Result Value Ref Range C-RP 13.7 (H) <=10.0 mg/L Reflex Vedolizumab Ab Result Value Ref Range Vedolizumab Ab <9.8 <9.8 ng/mL Vedolizumab interp See Footnote Assessment/Plan Crohn's disease Has noted resolution of anticipatory symptoms since advancement of entyvio to every 6 weeks. Some increased frequency of stool for a few days after an infusion and around her period but overall feeling well. In general, 2 stools daily. Denies any hematochezia. -continue entyvio -will plan to repeat MRE in November -with slightly low level of entyvio in August if inflammation noted on this MRE consider advancement to q4 dosing, will stay at every 6 weeks for now -continue safety labs -she is up to date on recommended vaccinations High risk medications High risk medications: As [...] to present live in our clinical setting. Cosigned by Trent Severino MD at 10/10/2019 10:58 PM CDT Associated attestation - Trent Severino MD - 10/10/2019 10:58 PM CDT I agree with the findings and plan of care as documented in the nurse practitioner's note. documented in this encounter Plan of Treatment Not on file documented as of this encounter Visit Diagnoses Diagnosis Crohn's disease of small intestine with other complication (HCC)- Primary High risk medications (not anticoagulants) long-term use Encounter for long-term (current) use of other medications documented in this encounter Care Teams Behavioral Instructor Relationship Specialty Start Date End Date Judy Fishman NP [address] [address] PCP - General 07/31/18 documented as of this encounter
--- OUTSIDE RECORDS SUMMARY | 2024-04-11 06:17 | XMS_ITS | Encounter Summary ---
Author Organization [facility] Address [address] [place] [address] Phone Care Team Providers Care Lining Maker Hand Name Role Phone Judy Fishman TRUCK MECHANIC APPRENTICE Primary Care Provider + Reason for Visit * Episode Based Medications (Routine) - Pending Review Specialty Diagnoses / Procedures Referred By Mary roberson Referred To Contact Diagnoses Crohn's disease of small intestine with other complication (HCC) Procedures UT INJECTION, VEDOLIZUMAB Trent Severino MD [address] [place] [address] Phone: tel: fax: [facility] 5th [place] [address] [place] [address] Phone: tel: fax: Referral ID Status Reason Start Date Expiration Date V isits Requested Visits Authorized [id number] Pending Review 09/26/2021 09/26/[phone] Encounter Details Date Type Department Care Team (Late st Contact Info) Description 05/12/2020 1:30 PM WINDOWS SOFTWARE DEVELOPER Infusion [facility] 5th [place] [address] [place] [address] Crohn's disease of small intestine [...] on file Legal Sex Female 7:54 PM WINDOWS SOFTWARE DEVELOPER Gender Identity Not on file Sexual Orientation Not on file documented as of this encounter Last Filed Vital Signs Vital Sign Reading Time Taken Comments Blood Pressure 134/80 05/12/2020 1:20 PM WINDOWS SOFTWARE DEVELOPER Pulse 85 05/12/2020 1:20 PM WINDOWS SOFTWARE DEVELOPER Temperature 37.1 ??C (98.7 ??F) 05/12/2020 1:20 PM CS T Respiratory Rate 16 05/12/2020 1:20 PM WINDOWS SOFTWARE DEVELOPER Oxygen Saturation - - Inhaled Oxygen Concentration - - Weight - - Height - - Body Mass Index - - documented in this encounter Progress Notes * Juan Rios, RU - 05/12/2020 1:30 PM CST Pt to infusion center for Entyvio. Pre-meds declined. IV to LAC. Infused over 30 mins per protocol.No S/S of adverse reaction. VSS. Follow up scheduled. Dominic Rios RN OWS SOFTWARE DEVELOPER documented in this encounter Plan of Treatment [...] mL/hr, Administer over 30 Minutes, Once, On Fri05/12/20 at 1430, For 1 doseIndications:Crohn's disease of small intestine with other complication (HCC) New Bag 05/12/2020 1:20 PM WINDOWS SOFTWARE DEVELOPER 300 mg 5 10 mL/hr documented in this encounter Orders Medications Ordered That Jonathan ht Not Have Been Administered Count Last Ordered Date First Ordered Date vedolizumab (ENTYVIO) 300 mg in sodium chloride 0.9% 250 mL IVPB 1 05/12/2020 Nursing Count Last Ordered Date First Orde red Date ONCBCN NO PREMEDS NEEDED 1 05/12/2020 documented in this encounter Care Teams Lining Maker Hand Relationship Specialty Start Date End Date Judy Fishman, BINU [address] [id number] PCP - General 07/31/18 documented as of this encounter
--- OUTSIDE RECORDS SUMMARY | 2024-04-11 06:17 | XMS_ITS | Encounter Summary ---
Author Organization [facility] Address [address] [place] [address] Phone Care Team Providers Care Field Marketing Representative Name Role Phone Judy Fishman MATHEMATICAL PHYSICIST Primary Care Provider + Encounter Details Date Type Department Care Team (Late st Contact Info) Description 05/19/2020 Telephone [facility] Gastroenterology Count includes the [facility] 8th [place] [address] [place] [address] Brian Mariscal MD [address] [place], [place] [id number] Social History Tobacco Use Types Packs/Day Years Used Date Smoking Tobacco: Every Day Cigarettes Smokeless Tobacco: Never Alcohol Use Standard Drinks/Week Comments Yes 2 (1 standard drink = 0.6 oz pur e alcohol) Comments Unknown Sex and Gender Information Value Date Recorded Sex Assigned at Not on file Legal Sex Female 7:54 PM SIGNAL CIRCUIT DESIGNER Gender Identity Not on file Sexual Orientation Not on file documented as of this encounter Miscellaneous Notes * Telephone Encounter - Eunice Muñoz BS - 05/19/2020 11:01 AM CST Lab orders created and patient will have done at [facility] 06/09 AL CIRCUIT DESIGNER documented in this encounter Plan of Treatment Not on file documented as of this encounter Results * Comprehensive metabolic panel (06/09/2020 2:30 PM SIGNAL CIRCUIT DESIGNER) Sodium 139 135 - 145 mmol/L [facility] Potassium, pl 3.5 3.3 - 4.9 mmol/L [facility] Chloride 106 97 - 110 mmol/L [facility] CO2 26 22 - 32 mmol/L [facility] Anion gap 7 2 - 15 mmol/L [facility] BUN 8 8 - 25 mg/dL [facility] Creatinine 0.62 0.60 - 1.10 mg/dL [facility] Glucose 86 70 - 199 mg/dL [facility] Comment: Interpretive Data Fasting glucose >/= 126 [...] 2017. Calcium 9.4 8.5 - 10.3 mg/dL [facility] Bilirubin, total 0.3 0.1 - 1.2 mg/dL [facility] Protein, pl 7.7 6.5 - 8.5 g/dL [facility] Albumin 4.3 3.5 - 5.0 g/dL [facility] Alk phos 84 40 - 130 Units/L [facility] ALT 21 7 - 45 Units/L [facility] AST 20 10 - 45 Units/L [facility] Blood specimen (specimen) 06/09/2020 2:30 PM SIGNAL CIRCUIT DESIGNER 06/09/2020 4:39 PM SIGNAL CIRCUIT DESIGNER Narrative [facility] - 06/09/2020 5:17 PM SIGNAL CIRCUIT DESIGNER Please take these orders to any lab. They are to be completed in May Please fax results to [phone] and call [phone] with any questions. us Brian Mariscal MD LAB BLOOD ORDERABLES Fin al Result [facility] Department [place] [address] * (ABNORMAL) CBC with auto differential (06/09/2020 2:30 PM SIGNAL CIRCUIT DESIGNER) WBC 12.4(H) 3.8 - 9.9 K/cumm [facility] Hgb 12.1 11.9 - 15.5 g/dL [facility] Hct 37.2 35.6 - 45.5 % [facility] Plt 353 150 - 400 K/cumm [facility] MPV 10.2 9.1 - 12.3 fL [facility] RBC 4.26 3.90 - 5.20 M/cumm [facility] MCV 87.3 81.3 - 96.4 fL [facility] MCH 28.4 27.1 - 33.3 pg [facility] MCHC 32.5 32.3 - 35.7 g/dL [facility] RDW CV 13.6 11.1 - 14.9 % [facility] RDW SD 42.9 35.7 - 48.1 fL [facility] NRBC abs 0.00 0.00 - 0.01 K/cumm [facility] Blood specimen (specimen) 06/09/2020 2:30 PM SIGNAL CIRCUIT DESIGNER 06/09/2020 4:39 PM SIGNAL CIRCUIT DESIGNER Narrative [facility] - 06/09/2020 4:57 PM SIGNAL CIRCUIT DESIGNER Please take these orders to any lab. They are to be completed in May Please fax results to [phone] and call [phone] with any questions. us Brian Mariscal MD LAB BLOOD ORDERABLES Fin al Result [facility] Department [place] [address] * (ABNORMAL) Hemoglobin A1c (06/09/2020 2:30 PM SIGNAL CIRCUIT DESIGNER) Hgb A1C 5.8(H) 4.0 - 5.6 % [facility] Estimated Average Glucose 120 mg/dL [facility] Comment: The ADA recommends reporting an estimated Average Glucose (eAG) with all Hemoglobin A1c results using the equation derived from a study of 507 normal and diabetic adults. ??Minority populations were underrepresented and children were not included. ?? (Diabetes Care 31:8478-3589, 2008). ??The eAG is not equivalent to a fasting glucose. Blood specimen (specimen) 06/09/2020 2:30 PM SIGNAL CIRCUIT DESIGNER 06/09/2020 4:39 PM SIGNAL CIRCUIT DESIGNER Narrative [facility] - 06/09/2020 5:06 PM SIGNAL CIRCUIT DESIGNER Please take these orders to any lab. They are to be completed in May Please fax results to [phone] and call [phone] with any questions. us Brian Mariscal MD LAB BLOOD ORDERABLES Fin al Result [facility] Department [place] [address] * (ABNORMAL) Lipid panel (06/09/2020 2:30 PM SIGNAL CIRCUIT DESIGNER) Cholesterol 133 30 - 199 mg/dL [facility] Comment: Interpretive Data Ages < or [...] on 2017. Triglycerides 114 <=149 mg/dL [facility] Comment: Interpretive Data Ages < or = [...] revised on 2017. HDL 33(L) >=40 mg/dL [facility] Comment: Interpretive Data Ages < or [...] on 2017. LDL, calculated 77 <=129 mg/dL [facility] Comment: Interpretive Data Ages < or [...] revised on 2017. Non-HDL Cholesterol 100 mg/dL [facility] Comment: Interpretive Data Ages < or [...] last revised on 2017. Chol/HDL ratio 4 [facility] Blood specimen (specimen) 06/09/2020 2:30 PM SIGNAL CIRCUIT DESIGNER 06/09/2020 4:39 PM SIGNAL CIRCUIT DESIGNER Narrative [facility] - 06/09/2020 5:17 PM SIGNAL CIRCUIT DESIGNER Please take these orders to any lab. They are to be completed in May Please fax results to [phone] and call [phone] with any questions. us Brian Mariscal MD LAB BLOOD ORDERABLES Fin al Result [facility] [place] [address] * Apdot-1-yhnwiaoqlfg phenotype (06/09/2020 2:30 PM SIGNAL CIRCUIT DESIGNER) alpha-1 antitrypsin 156 100 - 190 mg/dL [facility] Comment: ADDITIONAL INFORMATION Method: Nephelometry Test Performed by: [facility] [address] [place] [address] [employer] Executive: Shaun Benitez M.D. Ph.D.; [facility]# [id number] alpha-1 antitrypsin phenotype MM bands [facility] Comment: A single M isoform is detected. In the context of a normal khmbu-9-ytgvfvqfagr concentration, this is consistent with an MM phenotype. ADDITIONAL INFORMATION Method: Isoelectric Focusing, This assay identifies the phenotype of the circulating tiyhx-6-pwpmvctlcno (A1A) protein. If the patient is on replacement therapy or has been recently transfused, the phenotype will detect patient and replacement or transfused plasma A1A protein. This test also cannot detect a null allele which could be responsible for an A1A deficiency. Blood specimen (specimen) 06/09/2020 2:30 PM SIGNAL CIRCUIT DESIGNER 06/09/2020 5:31 PM SIGNAL CIRCUIT DESIGNER Narrative [facility] - 06/16/2020 4:10 PM SIGNAL CIRCUIT DESIGNER Please take these orders to any lab. They are to be completed in May Please fax results to [phone] and call [phone] with any questions. us Brian Mariscal MD LAB BLOOD ORDERABLES Fin al Result [facility] [place] [address] * Ceruloplasmin (06/09/2020 2:30 PM SIGNAL CIRCUIT DESIGNER) Ceruloplasmin 31.9 16.0 - 45.0 mg/dL [facility] Blood specimen (specimen) 06/09/2020 2:30 PM SIGNAL CIRCUIT DESIGNER 06/09/2020 4:39 PM SIGNAL CIRCUIT DESIGNER Narrative [facility] - 06/09/2020 5:16 PM SIGNAL CIRCUIT DESIGNER Please take these orders to any lab. They are to be completed in May Please fax results to [phone] and call [phone] with any questions. Result [facility] Brian Mariscal MD LAB BLOOD ORDERABLES Fin al Result Performing Organization Address [facility] Co de Phone Number [facility] [place] [address] * Hepatitis C antibody (06/09/2020 2:30 PM SIGNAL CIRCUIT DESIGNER) [facility] Hep C Ab Nonreactive Nonreactive [facility] Comment:Antibodies to HCV no t detected. Does NOT exclude the possibility of recent exposure to HCV. Blood specimen (specimen) 06/09/2020 2:30 PM SIGNAL CIRCUIT DESIGNER 06/09/2020 4:39 PM SIGNAL CIRCUIT DESIGNER Narrative [facility] - 06/09/2020 6:18 PM SIGNAL CIRCUIT DESIGNER Please take these orders to any lab. They are to be completed in May Please fax results to [phone] and call [phone] with any questions. Brian Mariscal MD LAB MICROBIOLOGY - GENER AL ORDERABLES Edited Result - Final Performing Organization Address [facility] Co de Phone Number [facility] [place] [address] * IgM (06/09/2020 2:30 PM SIGNAL CIRCUIT DESIGNER) [facility] Immunoglobulin M 230.0 40.0 - 230.0 mg/dL [facility] Blood specimen (specimen) 06/09/2020 2:30 PM SIGNAL CIRCUIT DESIGNER 06/09/2020 4:39 PM SIGNAL CIRCUIT DESIGNER Narrative [facility] - 06/09/2020 5:16 PM SIGNAL CIRCUIT DESIGNER Please take these orders to any lab. They are to be completed in May Please fax results to [phone] and call [phone] with any questions. Brian Mariscal MD LAB BLOOD ORDERABLES Fin al Result Performing Organization Address [facility] de Phone Number [facility] [place] [address] * IgA (06/09/2020 2:30 PM SIGNAL CIRCUIT DESIGNER) Pathologist [facility] Immunoglobulin A 181.0 70.0 - 400.0 mg/dL [facility] Blood specimen (specimen) 06/09/2020 2:30 PM SIGNAL CIRCUIT DESIGNER 06/09/2020 4:39 PM SIGNAL CIRCUIT DESIGNER Narrative [facility] - 06/09/2020 5:16 PM SIGNAL CIRCUIT DESIGNER Please take these orders to any lab. They are to be completed in May Please fax results to [phone] and call [phone] with any questions. Brian Mariscal MD LAB BLOOD ORDERABLES Fin al Result Performing Organization Address [facility] de Phone Number [facility] [place] [address] * IgG (06/09/2020 2:30 PM SIGNAL CIRCUIT DESIGNER) Pathologist [facility] Immunoglobulin G 1,168.0 700.0 - 1,600.0 mg/dL [facility] Blood specimen (specimen) 06/09/2020 2:30 PM SIGNAL CIRCUIT DESIGNER 06/09/2020 4:39 PM SIGNAL CIRCUIT DESIGNER Narrative [facility] - 06/09/2020 5:16 PM SIGNAL CIRCUIT DESIGNER Please take these orders to any lab. They are to be completed in May Please fax results to [phone] and call [phone] with any questions. Brian Mariscal MD LAB BLOOD ORDERABLES Fin al Result Performing Organization Address [facility] Co de Phone Number [facility] [place] [address] * Tissue transglutaminase IgA (TGG-IgA Ab) (06/09/2020 2:30 PM SIGNAL CIRCUIT DESIGNER) TTG ab, IgA <0.5 <=14.9 units/mL [facility] Comment: Interpretive data Negative: <15 units/mL Positive: > or equal to 15 units/mL Current interpretive data was last revised on 2016. Blood specimen (specimen) 06/09/2020 2:30 PM SIGNAL CIRCUIT DESIGNER 06/09/2020 4:39 PM SIGNAL CIRCUIT DESIGNER Narrative [facility] - 06/10/2020 12:17 PM SIGNAL CIRCUIT DESIGNER Please take these orders to any lab. They are to be completed in May Please fax results to [phone] and call [phone] with any questions. Brian Mariscal MD LAB BLOOD ORDERABLES Fin al Result Performing Organization Address [facility] Co de Phone Number [facility] [place] [address] * Smooth muscle antibody, qualitative (06/09/2020 2:30 PM SIGNAL CIRCUIT DESIGNER) Anti-smooth muscle Negative Negative [facility] Blood specimen (specimen) 06/09/2020 2:30 PM SIGNAL CIRCUIT DESIGNER 06/09/2020 4:39 PM SIGNAL CIRCUIT DESIGNER Narrative [facility] - 06/12/2020 12:23 PM SIGNAL CIRCUIT DESIGNER Please take these orders to any lab. They are to be completed in May Please fax results to [phone] and call [phone] with any questions. Brian Mariscal MD LAB BLOOD ORDERABLES Fin al Result Performing Organization Address [facility] Co de Phone Number [facility] [place] [address] * Mitochondrial antibodies, qualitative (06/09/2020 2:30 PM SIGNAL CIRCUIT DESIGNER) Anti-mitochond rial Negative Negative [facility] Blood specimen (specimen) 06/09/2020 2:30 PM SIGNAL CIRCUIT DESIGNER 06/09/2020 4:39 PM SIGNAL CIRCUIT DESIGNER Narrative [facility] - 06/12/2020 12:18 PM SIGNAL CIRCUIT DESIGNER Please take these orders to any lab. They are to be completed in May Please fax results to [phone] and call [phone] with any questions. us Brian Mariscal MD LAB BLOOD ORDERABLES Fin al Result [facility] Department [place] [address] documented in this encounter Visit Diagnoses Diagnosis Crohn's disease of small intestine with other complication (HCC)- Primary Iron deficiency anemia due to chronic blood loss Iron deficiency anemia secondary to blood loss (chronic) Crohn's disease of small intestine with other complication (HCC) Iron deficiency anemia due to chronic blood loss Iron deficiency anemia secondary to blood loss (chronic) documented in this encounter Care Teams Field Marketing Representative Relationship Specialty Start Date End Date Judy Fishman NP [address] [address] PCP - General 07/31/18 documented as of this encounter
--- OUTSIDE RECORDS SUMMARY | 2024-04-11 06:17 | XMS_ITS | Encounter Summary ---
Author Organization [facility] Address [address] [place] [address] Phone Care Team Providers Care Ground Host/Hostess Name Role Phone Judy Fishman INTERPRETER DEAF Primary Care Provider + Encounter Details Date Type Department Care Team (Late st Contact Info) Description 09/30/2019 Orders Only [facility] Gastroenterology [address] 8th [place] [address] [place] [address] Breanna Mendez RMA Social History Tobacco Use Types Packs/Day Years Used Date Smoking Tobacco: Every Day Cigarettes Smokeless Tobacco: Never Alcohol Use Standard Drinks/Week Comments Yes 2 (1 standard drink = 0.6 oz pur e alcohol) Comments Unknown Sex and Gender Information Value Date Recorded Sex Assigned at Not on file Legal Sex Female 7:54 PM FISCAL AGENT Gender Identity Not on file Sexual Orientation Not on file documented as of this encounter Plan of Treatment Not on file documented as of this encounter Visit Diagnoses Not on filedocumented in this encounter Discontinued Medications Medication Sig Discontinue Reason Start Date End Da te budesonide EC (ENTOCORT EC) 3 mg 24 hr capsule Take 3 capsules (9 mg total) by mouth every morning Patient Discharge 06/17/2019 09/30/2019 documented as of this encounter Care Teams Ground Host/Hostess Relationship Specialty Start Date End Date Judy Fishman NP [address] [address] PCP - General 07/31/18 documented as of this encounter
--- OUTSIDE RECORDS SUMMARY | 2024-04-11 06:17 | XMS_ITS | Encounter Summary ---
Author Organization [facility] Address [address] [place] [address] Phone Care Team Providers Care Dining Room Supervisor Name Role Phone Judy Fishman COMPUTER SYSTEMS TECHNOLOGY INSTRUCTOR Primary Care Provider + Reason for Visit * Episode Based Medications (Routine) - Pending Review Specialty Diagnoses / Procedures Referred By Mary roberson Referred To Contact Diagnoses Crohn's disease of small intestine with other complication (HCC) Procedures [place] INJECTION, VEDOLIZUMAB Trent Severino MD [address] [place] [address] Phone: tel: fax: [facility] Infusion Therapy [facility] Advanced Medicine 5th [place] [address] [place] [address] Phone: tel: fax: Referral ID Status Reason Start Date Expiration Date V isits Requested Visits Authorized [id number] Pending Review 09/26/2021 09/26/2022 41 [phone] Encounter Details Date Type Department Care Team (Late st Contact Info) Description 01/21/2020 2:00 PM CDT Infusion [facility] Infusion Therapy [facility] Advanced Medicine 5th [place] [address] [place] [address] Crohn's disease of small intestine [...] file Legal Sex Female 7:54 PM ASSISTANT DEAN Gender Identity Not on file Sexual Orientation Not on file documented as of this encounter Progress Notes * Cynthia Mendez RN - 01/21/2020 2:00 PM CDT Patient to infusion clinic for Entyvio infusion. Patient denies illness, VSS. IV started in Left A/C. Patient tolerated infusion. F/U appt set in 4 weeks. Payam Pan RN documented in this encounter Plan of Treatment Not on file documented as of this encounter Procedures Procedure Name Priority Date/Time Associated Diagnosis Comments CBC WITH AUTO DIFFERENTIAL Routine 01/21/2020 2:10 PM CDT Crohn's disease of small intestine with other complication (CMS/HCC) COMPREHENSIVE METABOLIC PANEL Routine 01/21/2020 2:10 PM CDT Crohn's disease of small intestine with other complication (CMS/HCC) documented in this encounter Results * (ABNORMAL) Comprehensive metabolic panel (01/21/2020 2:10 PM CDT) Total Protein 8.0 6.1 - 8.4 g/dL [facility] Albumin 4.2 3.5 - 5.2 g/dL [facility] Calcium 9.4 8.6 - 10.3 mg/dL [facility] BUN 9 7 - 23 mg/dL [facility] Total Bilirubin 0.37 0.20 - 1.40 mg/dL [facility] Alk Phos, Total 94 35 - 129 IU/L [facility] AST (SGOT) INTERFERENCE - HEMOLYSIS 11 - 47 IU/L [facility] ALT (SGPT) 22 6 - 53 IU/L [facility] Creatinine 0.58(L) 0.60 - 1.10 mg/dL [facility] Sodium 137 135 - 145 mmol/L [facility] Potassium INTERFERENCE - HEMOLYSIS 3.3 - 5.1 mmol/L [facility] Chloride 102 95 - 107 mmol/L [facility] CO2 Content 22 21 - 29 mmol/L [facility] Glucose 75 64 - 99 mg/dL [facility] Comment: NONFASTING GLUCOSE RANGE = 64-199 mg/dL FASTING GLUCOSE 64 - 99 = NORMAL FASTING GLUCOSE 100 - 125 = IMPAIRED FASTING GLUCOSE FASTING GLUCOSE >=126 = PROVISIONAL DIAGNOSIS OF DIABETES eGFR NON-AFR. RUSSIAN >90.0 >60.0 mL/min/1 .73 m2 [facility] eGFR >90.0 >60.0 mL/min/1 .73 m2 [facility] Blood specimen (specimen) (Blood, Venous) 01/21/2020 2:10 PM CDT 01/21/2020 3:14 PM CDT Narrative [facility] - 01/21/2020 4:01 PM CDT Specimen Hemolyzed Trent Severino MD LAB BLOOD ORDERABLES Final Re sult [facility] * (ABNORMAL) CBC with auto differential (01/21/2020 2:10 PM CDT) White Blood Count 13.8(H) 3.6 - 11.2 K/uL [facility] RBC 4.33 3.63 - 4.92 M/uL [facility] Hemoglobin 12.2 11.9 - 15.5 g/dL [facility] Hematocrit 36.7 36.1 - 44.3 % [facility] MCV 84.8 80.0 - 97.6 fL [facility] MCH 28.2 26.7 - 33.7 pg [facility] MCHC 33.2 32.7 - 35.5 g/dL [facility] RBC Dist Width 13.9 12.3 - 17.0 % [facility] Platelet Count 331 140 - 440 K/uL [facility] MPV 8.9 6.8 - 10.4 fL [facility] Neutrophils % 60.0 38.7 - 74.5 % [facility] Lymphocyte % 30.7 20.0 - 54.3 % [facility] Monocytes % 4.9 4.3 - 13.5 % [facility] Eosinophils % 4.2 0.0 - 6.0 % [facility] Basophil % 0.2 0.0 - 3.0 % [facility] Absolute Neutrophil 8.3(H) 1.8 - 6.6 K/uL [facility] Absolute Lymphocyte 4.2(H) 0.8 - 3.3 K/uL [facility] Absolute Monocyte 0.7 0.2 - 1.2 K/uL [facility] Absolute Eosinophil 0.6(H) 0.0 - 0.5 K/uL [facility] Absolute Basophil 0.0 0.0 - 0.2 K/uL [facility] Nucleated RBC % 0.0 0.0 - 0.4 /100 WBC [facility] Blood specimen (specimen) 01/21/2020 2:10 PM CDT 01/21/2020 3:14 PM CDT us Trent Severino MD LAB [...] mL/hr, Administer over 30 Minutes, Once, On Fri01/21/20 at 1500, For 1 doseIndications:Crohn's disease of small intestine with other complication (HCC) New Bag 01/21/2020 2:05 PM CDT 300 mg 5 10 mL/hr documented in this encounter Orders Medications Ordered That Jonathan ht Not Have Been Administered Count Last Ordered Date First Ordered Date vedolizumab (ENTYVIO) 300 mg in sodium chloride 0.9% 250 mL IVPB 1 01/21/2020 Lab Orders Without Results Count Last Ordered D ate First Ordered Date COMPREHENSIVE METABOLIC PANEL 2 01/21/2020 Nursing Count Last Ordered Date First Orde red Date ONCBCN NO PREMEDS NEEDED 1 01/21/2020 ONCBCN NURSING COMMUNICATION [id number] 1 1 VITAL SIGNS PRE-INFUSION 1 01/21/2020 documented in this encounter Care Teams Dining Room Supervisor Relationship Specialty Start Date End Date Judy Fishman NP [address] [address] PCP - General 07/31/18 documented as of this encounter
--- OUTSIDE RECORDS SUMMARY | 2024-04-11 06:17 | XMS_ITS | Encounter Summary ---
Author Organization [facility] Address [address] [place] [address] Phone Care Team Providers Care Railway Yard Assistant Name Role Phone Judy Fishman ASSISTANT DIRECTOR OF PLANT OPERATIONS Primary Care Provider + Encounter Details Date Type Department Care Team (Late st Contact Info) Description 08/04/2020 1:20 PM CDT Lab [facility] Endocrinology Metabolism and Lipid [address] [facility] 5th [place] [address] [place] [address] Crohn's disease of small intestine with other complication (CMS/HCC) Social History Tobacco Use Types Packs/Day Years Used Date Smoking Tobacco: Every Day Cigarettes Smokeless Tobacco: Never Alcohol Use Standard Drinks/Week Comments Yes 2 (1 standard drink = 0.6 oz pur e alcohol) Comments Unknown Sex and Gender Information Value Date Recorded Sex Assigned at Not on file Legal Sex Female 7:54 PM TAPE KELLER OPERATOR Gender Identity Not on file Sexual Orientation Not on file documented as of this encounter Plan of Treatment Not on file documented as of this encounter Visit Diagnoses Diagnosis Crohn's disease of small intestine with other complication (HCC) documented in this encounter Care Teams Railway Yard Assistant Relationship Specialty Start Date End Date Judy Fishman NP [address] [facility] [address] [place] [address] PCP - General 07/31/18 documented as of this encounter
--- OUTSIDE RECORDS SUMMARY | 2024-04-11 06:17 | XMS_ITS | Encounter Summary ---
Author Organization [facility] Address [address] [place] [address] Phone Care Team Providers Care Radiosonde Specialist Name Role Phone Judy Fishman RIGGER CHIEF Primary Care Provider + Reason for Visit * Reason Onset Date Comments Scheduling Appointments 06/14/2020 Encounter Details Date Type Department Care Team (Late st Contact Info) Description 06/14/2020 Telephone [facility] Scheduling [address] [place] [address] Mickie Hardin Scheduling Appointments Social History Tobacco Use Types Packs/Day Years Used Date Smoking Tobacco: Every Day Cigarettes Smokeless Tobacco: Never Alcohol Use Standard Drinks/Week Comments Yes 2 (1 standard drink = 0.6 oz pur e alcohol) Comments Unknown Sex and Gender Information Value Date Recorded Sex Assigned at Not on file Legal Sex Female 7:54 PM FLIGHT READINESS TECHNICIAN Gender Identity Not on file Sexual Orientation Not on file documented as of this encounter Miscellaneous Notes * Telephone Encounter - Mickie Hardin - 06/14/2020 9:35 AM CST M for patient to schedule with Dr. Mariscal in December 2020. HT READINESS TECHNICIAN documented in this encounter Plan of Treatment Not on file documented as of this encounter Visit Diagnoses Not on filedocumented in this encounter Care Teams Radiosonde Specialist Relationship Specialty Start Date End Date Judy Fishman, BINU [address] [address] PCP - General 07/31/18 documented as of this encounter
--- OUTSIDE RECORDS SUMMARY | 2024-04-11 06:17 | XMS_ITS | Encounter Summary ---
Author Organization [facility] Address [address] [place] [address] Phone Care Team Providers Care Sheet Roller Operator Name Role Phone Judy Fishman ROCKET ENGINE COMPONENT MECHANIC Primary Care Provider + Reason for Visit * Episode Based Medications (Routine) - Pending Review Specialty Diagnoses / Procedures Referred By Mary roberson Referred To Contact Diagnoses Crohn's disease of small intestine with other complication (HCC) Procedures [place] INJECTION, VEDOLIZUMAB Trent Severino MD [address] [place] [address] Phone: tel: fax: [facility] Infusion Therapy [facility], [id number] [facility] Advanced Medicine 5th [place] [address] [place] [address] Phone: tel: fax: Referral ID Status Reason Start Date Expiration Date V isits Requested Visits Authorized [id number] Pending Review 09/26/2021 09/26/2022 41 [phone] Encounter Details Date Type Department Care Team (Late st Contact Info) Description 08/04/2020 1:00 PM CDT Infusion [facility] Infusion Therapy [facility] [id number] [facility] Advanced Medicine [address]th [place] [address] [place] [address] Crohn's disease of small intestine [...] on file Legal Sex Female 7:54 PM PAROLE DIRECTOR Gender Identity Not on file Sexual Orientation Not on file documented as of this encounter Last Filed Vital Signs Vital Sign Reading Time Taken Comments Blood Pressure 116/79 08/04/2020 1:05 PM CDT Pulse 66 08/04/2020 1:05 PM CDT Temperature - - Respiratory Rate 16 08/04/2020 1:05 PM CDT Oxygen Saturation - - Inhaled Oxygen Concentration - - Weight - - Height - - Body Mass Index - - documented in this encounter Progress Notes * Juan Rios RN - 08/04/2020 1:00 PM CDT Pt to infusion center for Entyvio infusion. Pre-meds declined. IV to LAC. Labs drawn. Entyvio infused over 30 mins per protocol. No S/S of adverse reaction. VSS. Follow up scheduled. Dominic Rios RN documented in this encounter Plan of Treatment Not on file documented as of this encounter Procedures Procedure Name Priority Date/Time Associated Diagnosis Comments CBC WITH AUTO DIFFERENTIAL Routine 08/04/2020 1:05 PM CDT Crohn's disease of small intestine with other complication (CMS/HCC) COMPREHENSIVE METABOLIC PANEL Routine 08/04/2020 1:05 PM CDT Crohn's disease of small intestine with other complication (CMS/HCC) documented in this encounter Results * (ABNORMAL) CBC with auto differential (08/04/2020 1:05 PM CDT) White Blood Count 13.1 H(H) 3.6 - 11.2 K/uL [facility] RBC 4.18 3.63 - 4.92 M/uL [facility] Hemoglobin 11.7 L(L) 11.9 - 15.5 g/dL [facility] Hematocrit 35.6 L(L) 36.1 - 44.3 % [facility] MCV 85.2 80.0 - 97.6 fL [facility] MCH 28.0 26.7 - 33.7 pg [facility] MCHC 32.8 32.7 - 35.5 g/dL [facility] RBC Dist Width 13.8 12.3 - 17.0 % [facility] Platelet Count 329 140 - 440 K/uL [facility] MPV 9.0 6.8 - 10.4 fL [facility] Neutrophils % 55.5 38.7 - 74.5 % [facility] Lymphocyte % 36.2 20.0 - 54.3 % [facility] Monocytes % 4.1 L(L) 4.3 - 13.5 % [facility] Eosinophils % 3.8 0.0 - 6.0 % [facility] Basophil % 0.4 0.0 - 3.0 % [facility] Absolute Neutrophil 7.3 H(H) 1.8 - 6.6 K/uL [facility] Absolute Lymphocyte 4.8 H(H) 0.8 - 3.3 K/uL [facility] Absolute Monocyte 0.5 0.2 - 1.2 K/uL [facility] Absolute Eosinophil 0.5 0.0 - 0.5 K/uL [facility] Absolute Basophil 0.0 0.0 - 0.2 K/uL [facility] Nucleated RBC % 0.0 0.0 - 0.4 /100 WBC [facility] Blood specimen (specimen) 08/04/2020 1:05 PM CDT 08/04/2020 2:15 PM CDT us Trent Severino MD LAB BLOOD ORDERABLES Final Re sult [facility] * Comprehensive metabolic panel (08/04/2020 1:05 PM CDT) Total Protein 7.2 6.1 - 8.4 g/dL [facility] Albumin 3.9 3.5 - 5.2 g/dL [facility] Calcium 9.0 8.6 - 10.3 mg/dL [facility] BUN 10 7 - 23 mg/dL [facility] Total Bilirubin 0.23 0.20 - 1.40 mg/dL [facility] Alk Phos, Total 71 35 - 129 IU/L [facility] AST (SGOT) INTERFERENCE - HEMOLYSIS 11 - 47 IU/L [facility] ALT (SGPT) 13 6 - 53 IU/L [facility] Creatinine 0.61 0.60 - 1.10 mg/dL [facility] Sodium 138 135 - 145 mmol/L [facility] Potassium INTERFERENCE - HEMOLYSIS 3.3 - 5.1 mmol/L [facility] Chloride 100 95 - 107 mmol/L [facility] CO2 Content 23 21 - 29 mmol/L [facility] Glucose 71 64 - 99 mg/dL [facility] Comment: NONFASTING GLUCOSE RANGE = 64-199 mg/dL FASTING GLUCOSE 64 - 99 = NORMAL FASTING GLUCOSE 100 - 125 = IMPAIRED FASTING GLUCOSE FASTING GLUCOSE >=126 = PROVISIONAL DIAGNOSIS OF DIABETES eGFR >90.0 >60.0 mL/min/1 .73 m2 [facility] Comment:eGFR calculated for Ley-Tpiautw-Hthkzvgxh eGFR >90.0 >60.0 mL/min/1 .73 m2 [facility] Comment:eGFR calculated for -Americans Blood specimen (specimen) (Blood, Venous) 08/04/2020 1:05 PM CDT 08/04/2020 2:15 PM CDT Narrative [facility] - 08/04/2020 3:26 PM CDT Specimen Hemolyzed us Trent Severino MD LAB BLOOD ORDERABLES Final Re sult [facility] documented in [...] mL/hr, Administer over 30 Minutes, Once, On Fri08/04/20 at 1400, For 1 doseIndications:Crohn's disease of small intestine with other complication (HCC) New Bag 08/04/2020 1:15 PM CDT 300 mg 5 10 mL/hr documented in this encounter Orders Medications Ordered That Jonathan ht Not Have Been Administered Count Last Ordered Date First Ordered Date sodium chloride 0.9% flush 10 mL 1 08/05/19 vedolizumab (ENTYVIO) 300 mg in sodium chloride 0.9% 250 mL IVPB 1 08/04/2020 Nursing Count Last Ordered Date First Orde red Date ONCBCN NO PREMEDS NEEDED 1 08/04/2020 VITAL SIGNS PRE-INFUSION 1 08/04/2020 documented in this encounter Care Teams Sheet Roller Operator Relationship Specialty Start Date End Date Judy Fishman NP [address] [address] PCP - General 07/31/18 documented as of this encounter
--- OUTSIDE RECORDS SUMMARY | 2024-04-11 06:17 | XMS_ITS | Encounter Summary ---
Author Organization [facility] Address [address] [place] [address] Phone Care Team Providers Care Solutions Executive Cloud Sales Name Role Phone Judy Fishman ROTOR BLADE INSTALLER Primary Care Provider + Reason for Visit * Episode Based Medications (Routine) - Pending Review Specialty Diagnoses / Procedures Referred By Mary roberson Referred To Contact Diagnoses Crohn's disease of small intestine with other complication (HCC) Procedures [place] INJECTION, VEDOLIZUMAB Trent Severino MD [address] [place] [address] Phone: tel: fax: [facility] Infusion Therapy [facility] Advanced Medicine 5th [place] [address] [place] [address] Phone: tel: fax: Referral ID Status Reason Start Date Expiration Date V isits Requested Visits Authorized [id number] Pending Review 09/26/2021 09/26/2022 41 [phone] Encounter Details Date Type Department Care Team (Late st Contact Info) Description 02/18/2020 1:00 PM SURGICAL CLINICAL REVIEWER Infusion [facility] Infusion Therapy [facility] Advanced Medicine [address]th [place] [address] [place] [address] Crohn's disease of small intestine [...] on file Legal Sex Female 7:54 PM SURGICAL CLINICAL REVIEWER Gender Identity Not on file Sexual Orientation Not on file documented as of this encounter Last Filed Vital Signs Vital Sign Reading Time Taken Comments Blood Pressure 118/77 02/18/2020 12:50 PM SURGICAL CLINICAL REVIEWER Pulse 71 02/18/2020 12:50 PM SURGICAL CLINICAL REVIEWER Temperature 36.6 ??C (97.8 ??F) 02/18/2020 12:[address] Respiratory Rate 16 02/18/2020 12:50 PM SURGICAL CLINICAL REVIEWER Oxygen Saturation - - Inhaled Oxygen Concentration - - Weight - - Height - - Body Mass Index - - documented in this encounter Progress Notes * Juan Rios, RU - 02/18/2020 1:00 PM CST Pt to infusion center for Entyvio infusion. IV to [facility]. Denies illness. No S/S of adverse reaction. VSS. Follow up scheduled. Ambulatory from infusion center. Dominic Rios RN ICAL CLINICAL REVIEWER documented in this encounter Plan of Treatment [...] mL/hr, Administer over 30 Minutes, Once, On Fri02/18/20 at 1345, For 1 doseIndications:Crohn's disease of small intestine with other complication (HCC) New Bag 02/18/2020 12:55 PM SURGICAL CLINICAL REVIEWER 300 mg 510 mL/hr documented in this encounter Orders Medications Ordered That Jonathan ht Not Have Been Administered Count Last Ordered Date First Ordered Date vedolizumab (ENTYVIO) 300 mg in sodium chloride 0.9% 250 mL IVPB 1 02/18/2020 documented in this encounter Care Teams Solutions Executive Cloud Sales Relationship Specialty Start Date End Date Judy Fishman NP [id number] [address] PCP - General 07/31/18 documented as of this encounter
--- OUTSIDE RECORDS SUMMARY | 2024-04-11 06:17 | XMS_ITS | Encounter Summary ---
Author Organization [facility] Address [address] [place] [address] Phone Care Team Providers Care Hole Digger Operator Name Role Phone Judy Fishman PROGRAM DIR Primary Care Provider + Reason for Visit * Episode Based Medications (Routine) - Pending Review Specialty Diagnoses / Procedures Referred By Mary roberson Referred To Contact Diagnoses Crohn's disease of small intestine with other complication (HCC) Procedures [place] INJECTION, VEDOLIZUMAB Trent Severino MD [address] [place] [address] Phone: tel: fax: [facility] Infusion Therapy [facility] Advanced Medicine 5th [place] [address] [place] [address] Phone: tel: fax: Referral ID Status Reason Start Date Expiration Date V isits Requested Visits Authorized [id number] Pending Review 09/26/2021 09/26/2022 41 41 Encounter Details Date Type Department Care Team (Late st Contact Info) Description 04/12/2020 1:00 PM TREASURY ANALYST Infusion [facility] Infusion Therapy [facility] Advanced Medicine 5th [place] [address] [place] [address] Crohn's disease of small intestine [...] on file Legal Sex Female 7:54 PM TREASURY ANALYST Gender Identity Not on file Sexual Orientation Not on file documented as of this encounter Last Filed Vital Signs Vital Sign Reading Time Taken Comments Blood Pressure 136/83 04/12/2020 1:00 PM TREASURY ANALYST Pulse 91 04/12/2020 1:00 PM TREASURY ANALYST Temperature 36.9 ??C (98.5 ??F) 04/12/2020 1:00 PM CS T Respiratory Rate 16 04/12/2020 1:00 PM TREASURY ANALYST Oxygen Saturation - - Inhaled Oxygen Concentration - - Weight - - Height - - Body Mass Index - - documented in this encounter Progress Notes * Juan Rios, RN - 04/12/2020 1:00 PM CST Pt to infusion center for Entyvio infusion. Pre-meds declined. IV to LAC. Labs drawn. Infused over 30 mins per protocol. No S/S of adverse reaction. VSS. Follow up scheduled. Dominic Rios RN SURY ANALYST documented in this encounter Plan of Treatment Not on file documented as of this encounter Procedures Procedure Name Priority Date/Time Associated Diagnosis Comments CBC WITH AUTO DIFFERENTIAL Routine 04/12/2020 1:00 PM TREASURY ANALYST Crohn's disease of small intestine with other complication (CMS/HCC) COMPREHENSIVE METABOLIC PANEL Routine 04/12/2020 1:00 PM TREASURY ANALYST Crohn's disease of small intestine with other complication (CMS/HCC) documented in this encounter Results * (ABNORMAL) CBC with auto differential (04/12/2020 1:00 PM TREASURY ANALYST) White Blood Count 13.3 H(H) 3.6 - 11.2 K/uL [facility] RBC 4.24 3.63 - 4.92 M/uL [facility] Hemoglobin 12.0 L 11.9 - 15.5 g/dL [facility] Hematocrit 36.1 36.1 - 44.3 % [facility] MCV 85.1 80.0 - 97.6 fL [facility] MCH 28.3 26.7 - 33.7 pg [facility] MCHC 33.3 32.7 - 35.5 g/dL [facility] RBC Dist Width 14.1 12.3 - 17.0 % [facility] Platelet Count 324 140 - 440 K/uL [facility] MPV 8.3 6.8 - 10.4 fL [facility] Neutrophils % 55.3 38.7 - 74.5 % [facility] Lymphocyte % 34.9 20.0 - 54.3 % [facility] Monocytes % 4.5 4.3 - 13.5 % [facility] Eosinophils % 5.0 0.0 - 6.0 % [facility] Basophil % 0.3 0.0 - 3.0 % [facility] Absolute Neutrophil 7.4 H(H) 1.8 - 6.6 K/uL [facility] Absolute Lymphocyte 4.6 H(H) 0.8 - 3.3 K/uL [facility] Absolute Monocyte 0.6 0.2 - 1.2 K/uL [facility] Absolute Eosinophil 0.7 H(H) 0.0 - 0.5 K/uL [facility] Absolute Basophil 0.0 0.0 - 0.2 K/uL [facility] Nucleated RBC % 0.0 0.0 - 0.4 /100 WBC [facility] Blood specimen (specimen) 04/12/2020 1:00 PM TREASURY ANALYST 04/12/2020 2:17 PM TREASURY ANALYST us Trent Severino MD LAB BLOOD ORDERABLES Final Re sult [facility] * (ABNORMAL) Comprehensive metabolic panel (04/12/2020 1:00 PM TREASURY ANALYST) Total Protein 7.7 6.1 - 8.4 g/dL [facility] Albumin 4.1 3.5 - 5.2 g/dL [facility] Calcium 9.4 8.6 - 10.3 mg/dL [facility] BUN 10 7 - 23 mg/dL [facility] Total Bilirubin 0.30 0.20 - 1.40 mg/dL [facility] Alk Phos, Total 86 35 - 129 IU/L [facility] AST (SGOT) INTERFERENCE - HEMOLYSIS 11 - 47 IU/L [facility] ALT (SGPT) INTERFERENCE - HEMOLYSIS 6 - 53 IU/L [facility] Creatinine 0.54(L) 0.60 - 1.10 mg/dL [facility] Sodium 135 135 - 145 mmol/L [facility] Potassium INTERFERENCE - HEMOLYSIS 3.3 - 5.1 mmol/L [facility] Chloride 99 95 - 107 mmol/L [facility] CO2 Content 22 21 - 29 mmol/L [facility] Glucose 69 64 - 99 mg/dL [facility] Comment: NONFASTING GLUCOSE RANGE = 64-199 mg/dL FASTING GLUCOSE 64 - 99 = NORMAL FASTING GLUCOSE 100 - 125 = IMPAIRED FASTING GLUCOSE FASTING GLUCOSE >=126 = PROVISIONAL DIAGNOSIS OF DIABETES eGFR NON-AFR. ALGERIAN >90.0 >60.0 mL/min/1 .73 m2 [facility] eGFR >90.0 >60.0 mL/min/1 .73 m2 [facility] Blood specimen (specimen) (Blood, Venous) 04/12/2020 1:00 PM TREASURY ANALYST 04/12/2020 2:17 PM TREASURY ANALYST Narrative [facility] - 04/12/2020 2:56 PM TREASURY ANALYST Specimen Hemolyzed Trent Severino MD LAB BLOOD ORDERABLES Final Re sult [facility] [...] mL/hr, Administer over 30 Minutes, Once, On Fri04/12/20 at 1400, For 1 doseIndications:Crohn's disease of small intestine with other complication (HCC) New Bag 04/12/2020 1:10 PM TREASURY ANALYST 300 mg 5 10 mL/hr documented in this encounter Orders Medications Ordered That Jonathan ht Not Have Been Administered Count Last Ordered Date First Ordered Date vedolizumab (ENTYVIO) 300 mg in sodium chloride 0.9% 250 mL IVPB 1 04/12/2020 documented in this encounter Care Teams Hole Digger Operator Relationship Specialty Start Date End Date Judy Fishman NP [address] [address] PCP - General 07/31/18 documented as of this encounter
--- OUTSIDE RECORDS SUMMARY | 2024-04-11 06:17 | XMS_ITS | Encounter Summary ---
Author Organization [facility] Address [address] [place] [address] Phone Care Team Providers Care Brass Cleaner Name Role Phone Judy Fishman SEMICONDUCTOR TESTING GROUP LEADER Primary Care Provider + Reason for Visit * Episode Based Medications (Routine) - Pending Review Specialty Diagnoses / Procedures Referred By Mary roberson Referred To Contact Diagnoses Crohn's disease of small intestine with other complication (HCC) Procedures LA INJECTION, VEDOLIZUMAB Trent Severino MD [address] [place] [address] Phone: tel: fax: [facility] Infusion Therapy [facility] Advanced Medicine 5th [place] [address] [place] [address] Phone: tel: fax: Referral ID Status Reason Start Date Expiration Date V isits Requested Visits Authorized [id number] Pending Review 09/26/2021 09/26/[phone] Encounter Details Date Type Department Care Team (Late st Contact Info) Description 03/17/2020 1:00 PM PROTOZOOLOGIST Infusion [facility] Infusion Therapy [facility] Advanced Medicine 5th [place] [address] [place] [address] Crohn's disease of small intestine [...] on file Legal Sex Female 7:54 PM PROTOZOOLOGIST Gender Identity Not on file Sexual Orientation Not on file documented as of this encounter Last Filed Vital Signs Vital Sign Reading Time Taken Comments Blood Pressure 120/81 03/17/2020 12:55 PM PROTOZOOLOGIST Pulse 86 03/17/2020 12:55 PM PROTOZOOLOGIST Temperature 36.7 ??C (98.1 ??F) 03/17/2020 12:[address] Respiratory Rate 16 03/17/2020 12:55 PM PROTOZOOLOGIST Oxygen Saturation - - Inhaled Oxygen Concentration - - Weight - - Height - - Body Mass Index - - documented in this encounter Progress Notes * Juan Rios, RN - 03/17/2020 1:00 PM CST Pt to infusion center for Entyvio infusion. Pre-meds declined. IV to LAC. Entyvio infused per protocol. No S/S of adverse reaction. VSS. Follow up scheduled. Ambulatory from infusion. Dominic Rios, RU OZOOLOGIST documented in this encounter Plan of Treatment [...] mL/hr, Administer over 30 Minutes, Once, On Fri03/17/20 at 1400, For 1 doseIndications:Crohn's disease of small intestine with other complication (HCC) New Bag 03/17/2020 1:05 PM PROTOZOOLOGIST 300 mg 5 10 mL/hr documented in this encounter Orders Medications Ordered That Jonathan ht Not Have Been Administered Count Last Ordered Date First Ordered Date vedolizumab (ENTYVIO) 300 mg in sodium chloride 0.9% 250 mL IVPB 1 03/17/2020 Nursing Count Last Ordered Date First Orde red Date ONCBCN NO PREMEDS NEEDED 1 03/17/2020 documented in this encounter Care Teams Brass Cleaner Relationship Specialty Start Date End Date Judy Fishman, BINU [address] [address] PCP - General 07/31/18 documented as of this encounter
--- OUTSIDE RECORDS SUMMARY | 2024-04-11 06:17 | XMS_ITS | Encounter Summary ---
Author Organization [facility] Address [address] [place] [address] Phone Care Team Providers Care Mold Stacker Name Role Phone Judy Fishman ENGINEERING PROFESSOR Primary Care Provider + Encounter Details Date Type Department Care Team (Late st Contact Info) Description 09/13/2020 Orders Only [facility] Gastroenterology [address] [facility] 8th [place] [address] [place] [phone] Susan Chawla RMA Social History Tobacco Use Types Packs/Day Years Used Date Smoking Tobacco: Every Day Cigarettes Smokeless Tobacco: Never Alcohol Use Standard Drinks/Week Comments Yes 2 (1 standard drink = 0.6 oz pur e alcohol) Comments Unknown Sex and Gender Information Value Date Recorded Sex Assigned at Not on file Legal Sex Female 7:54 PM SECURITY SYSTEMS INSTALLER Gender Identity Not on file Sexual Orientation Not on file documented as of this encounter Progress Notes * Susan Chawla BS - 09/13/2020 3:05 PM CDT LMOM to discuss having a fecal calprotectin test performed. documented in this encounter Plan of Treatment Not on file documented as of this encounter Visit Diagnoses Not on filedocumented in this encounter Care Teams Mold Stacker Relationship Specialty Start Date End Date Judy Fishman NP [address] [address] PCP - General 07/31/18 documented as of this encounter
--- OUTSIDE RECORDS SUMMARY | 2024-04-11 06:17 | XMS_ITS | Encounter Summary ---
Author Organization [facility] Address [address] [place] [address] Care Team Providers Care Mercury Washer Name Role Phone Judy Fishman SPEECH AND HEARING CLINIC DIRECTOR Primary Care Provider + Encounter Details Date Type Department Care Team (Late st Contact Info) Description 11/05/2019 3:40 PM CDT Lab [address] [address] Crohn's disease of small intestine with other complication (CMS/HCC) Social History Tobacco Use Types Packs/Day Years Used Date Smoking Tobacco: Every Day Cigarettes Smokeless Tobacco: Never Alcohol Use Standard Drinks/Week Comments Yes 2 (1 standard drink = 0.6 oz pur e alcohol) Comments Unknown Sex and Gender Information Value Date Recorded Sex Assigned at Not on file Legal Sex Female 7:54 PM HIDES AND SKINS COLORER Gender Identity Not on file Sexual Orientation Not on file documented as of this encounter Plan of Treatment Not on file documented as of this encounter Procedures Procedure Name Priority Date/Time Associated Diagnosis Comments T-SPOT.TB Routine 11/05/2019 12:15 PM CDT Crohn's disease of small intestine with other complication (CMS/HCC) CRP (ACUTE PHASE) Routine 11/05/2019 12: 15 PM CDT Crohn's disease of small intestine with other complication (CMS/HCC) documented in this encounter Results * T-SPOT.TB (11/05/2019 12:15 PM CDT) T-SPOT.TB Negative Negative [facility] Comment: Limitations from the T-SPOT.TB Package Insert [...] with T-SPOT.TB test. T-Spot testing performed by [facility], [address] [place] [address]. [id number] A negative test result does not exclude [...] T-SPOT.TB Panel A Spot Count 0 [facility] T-SPOT.TB Panel B Spot Count 0 [facility] T-SPOT.TB Negative Control Passed [facility] T-SPOT.TB Positive Control Passed [facility] Blood specimen (specimen) 11/05/2019 12:15 PM CDT 11/05/2019 3:39 PM CDT Trent Severino MD LAB MICROBIOLOGY - GENERAL OR DERABLES Final Result Performing Organization Address City/[facility]/ZIP Co de Phone Number [facility] Department [place] [address] * (ABNORMAL) CRP (acute phase) (11/05/2019 12:15 PM CDT) CRP 18.5(H) <=10.0 mg/L [facility] Blood specimen (specimen) 11/05/2019 12:15 PM CDT 11/05/2019 3:38 PM CDT Trent Severino MD LAB BLOOD ORDERABLES Final Re sult Performing Organization Address City/[facility]/ZIP Co de Phone Number [facility] Department [place] [address] documented in this encounter Visit Diagnoses Diagnosis Crohn's disease of small intestine with other complication (HCC) documented in this encounter Care Teams Mercury Washer Relationship Specialty Start Date End Date Judy Fishman NP [address] [address] PCP - General 07/31/18 documented as of this encounter
--- OUTSIDE RECORDS SUMMARY | 2024-04-11 06:17 | XMS_ITS | Encounter Summary ---
Author Organization [facility] Address [address] [place] [address] Phone Care Team Providers Care Retail Salesperson Name Role Phone Judy Fihsman REEL ASSEMBLER Primary Care Provider + Encounter Details Date Type Department Care Team (Late st Contact Info) Description 08/17/2019 2:[address] [facility] Endocrinology Metabolism and Lipid [address] [facility] Advanced Medicine 5th [place] [address] [place] [phone] Belem De La Torre MD [address] [facility] [address] [place] [address] Class 3 severe obesity without serious comorbidity with body mass index (BMI) of 40.0 to 44.9 in adult, unspecified obesity type (CMS/HCC) (Primary Dx) Social History Tobacco Use Types Packs/Day Years Used Date Smoking Tobacco: Every Day Cigarettes Smokeless Tobacco: Never Alcohol Use Standard Drinks/Week Comments Yes 2 (1 standard drink = 0.6 oz pur e alcohol) Comments Unknown Sex and Gender Information Value Date Recorded Sex Assigned at Not on file Legal Sex Female 7:54 PM SUPERVISOR ACCOUNTING CLERKS Gender Identity Not on file Sexual Orientation Not on file documented as of this encounter Ordered Prescriptions Prescription Sig Dispense Quantity Refills Last Filled Start Date End Date pen needle, diabetic (Comfort EZ Pen [place]) 32 gauge x 5/32 needleIndications: Class 3 severe obesity without serious comorbidity with body mass index (BMI) of 40.0 to 44.9 in adult, unspecified obesity type (HCC) Use with Saxenda pen 100 each 3 08/17/2019 1 liraglutide, weight loss, 3 mg/0.5 mL (18 mg/3 mL) pen injectorIndication s:Weight Loss Management for Obese Patient (BMI >= 30) Indications: weight loss management for an obese person 0.6 mg once daily for 1 week; increase by 0.6 mg daily at weekly intervals to a target dose of 3 daily 5 pen 3 08/17/2019 1 documented in this encounter Progress Notes * Mulu De La Torre MD - 08/17/2019 2:00 PM CDT Images from the original note were not included. Endocrine Patient Visit This was a telemedicine visit with Liliana almeida which took place via a real-time video connection ([employer]/similar). During the visit, I was located Home in [facility] and the patient was located [facility] in [place], [place]. The session started at 2:00 PM and ended at 2:20. The patient has been informed that the [...] for obesity management in view of PCOS. Started last visit on Trulicity. She tolerated it well. She took 4 doses. Coverage was denied by insurance. PCOS history: Diagnosed with PCOS in 2013 [...] in the past. She reports that her GAMING CASHIER physician has checked her insulin level which [...] long-term use Current Outpatient Medications Medication ??? drospirenone-ethinyl estradioL (MIRA,OCELLA) 3-0.03 mg per tablet ??? dulaglutide (TRULICITY) 0.75 mg/0.5 mL pen injector ??? budesonide EC (ENTOCORT EC) 3 mg 24 hr capsule ??? no122/iron/folic acid ( MULTI ORAL) No current facility-administered medications for this visit. Review of Systems Review of systems per HPI and otherwise all other systems are negative. History reviewed. No pertinent past medical history. Past Surgical History: Procedure Laterality Date ??? ANKLE FRACTURE SURGERY 2008 ??? CHOLECYSTECTOMY 2018 (Not in a hospital admission) Allergies Allergen [...] for obesity management and PCOS. Plan/ recommendations: discussed drug therapy options for obesity. She elected to do Saxenda. Will start Saxenda at 0.6 mg daily and increase the dose gradually to The maximum of 3 mg daily. Discussed goal and side effects. Encouraged patient to continue contraception, Follow up in 4 months Mulu De La Torre MD Instructor in Medicine Division of Endocrinology, Metabolism and Lipid Research [facility] documented in this encounter Plan of Treatment Not on file documented as of this encounter Visit Diagnoses Diagnosis Class 3 severe obesity without serious comorbidity with body mass index (BMI) of 40.0 to 44.9 in adult, unspecified obesity type (HCC)- Primary documented in this encounter Discontinued Medications Medication Sig Discontinue Reason Start Date End Da te dulaglutide (TRULICITY) 0.75 mg/0.5 mL pen injectorIndications:PCOS (polycystic ovarian syndrome) Inject 0.5 mL (0.75 mg total) under the skin every 7 days Alternate therapy 07/30/2019 08/17/2019 documented as of this encounter Historical Medications * This list may reflect changes made after this encounter. drospirenone-ethi nyl estradioL (MIRA,OCELLA) 3-0.03 mg per tablet Take 1 tablet by mouth daily 06/12/2020 added in this encounter Care Teams Retail Salesperson Relationship Specialty Start Date End Date Judy Fishman NP [address] [address] PCP - General 07/31/18 documented as of this encounter
--- OUTSIDE RECORDS SUMMARY | 2024-04-11 06:17 | XMS_ITS | Encounter Summary ---
Author Organization [facility] Address [address] [place] [address] Phone Care Team Providers Care [facility] Lab Technician Name Role Phone Simone Fishmanelle Brittani TIME STUDY TECHNICIAN Primary Care Provider + Encounter Details Date Type Department Care Team (Late st Contact Info) Description 05/18/2020 Telephone [facility] Gastroenterology [facility] 8th [place] [address] [place] [phone] Elena Walden LPN Social History Tobacco Use Types Packs/Day Years Used Date Smoking Tobacco: Every Day Cigarettes Smokeless Tobacco: Never Alcohol Use Standard Drinks/Week Comments Yes 2 (1 standard drink = 0.6 oz pur e alcohol) Comments Unknown Sex and Gender Information Value Date Recorded Sex Assigned at Not on file Legal Sex Female 7:54 PM LINER REPLACER Gender Identity Not on file Sexual Orientation Not on file documented as of this encounter Miscellaneous Notes * Telephone Encounter - Elena Walden LPN - 05/18/2020 8:32 AM CST Task sent for testing to be done. IOV scheduled ----- Message from Brian Mariscal MD sent 05/15/2020 1:23 PM LINER REPLACER ----- IOV telehealth within 3 months. Hold off on Fibroscan (she is getting fertility treatment) but should still send CBC, CMP, PRISCILA, AMA, ASMA, TTG, IgG, IgA, IgM, HCV, ceruloplasmin, alpha-1 antitrypsin phenotype, lipid profile, hgb a1c R REPLACER R REPLACER documented in this encounter Plan of Treatment Not on file documented as of this encounter Visit Diagnoses Not on filedocumented in this encounter Care Teams [facility] Lab Technician Relationship Specialty Start Date End Date Judy Fishman NP [address] [address] PCP - General 07/31/18 documented as of this encounter
--- OUTSIDE RECORDS SUMMARY | 2024-04-11 06:18 | XMS_ITS | Encounter Summary ---
Author Organization [facility] Address [address] [place] [address] Phone Care Team Providers Care Admissions Consultant Name Role Phone Judy Fishman SUPERVISOR COMPRESSED YEAST Primary Care Provider + Encounter Details Date Type Department Care Team (Late st Contact Info) Description 03/30/2019 2:30 PM OPTICAL LABORATORY MECHANIC Office Visit [facility] Advanced Medicine 8th [place] [address] [place] [address] Trent Severino MD [address] [place], [place] [id number] High risk medications (not anticoagulants) long-term use (Primary Dx); Healthcare maintenance; Crohn's disease of small intestine with other complication (CMS/HCC) Social History Tobacco Use Types Packs/Day Years Used Date Smoking Tobacco: Every Day Cigarettes Smokeless Tobacco: Never Alcohol Use Standard Drinks/Week Comments Yes 2 (1 standard drink = 0.6 oz pur e alcohol) Comments Unknown Sex and Gender Information Value Date Recorded Sex Assigned at Not on file Legal Sex Female 7:54 PM OPTICAL LABORATORY MECHANIC Gender Identity Not on file Sexual Orientation Not on file documented as of this encounter Last Filed Vital Signs Vital Sign Reading Time Taken Comments Blood Pressure 122/81 03/30/2019 2:28 PM OPTICAL LABORATORY MECHANIC Pulse 92 03/30/2019 2:28 PM OPTICAL LABORATORY MECHANIC Temperature 36.7 ??C (98.1 ??F) 03/30/2019 2:28 PM CS T Respiratory Rate - - Oxygen Saturation - - Inhaled Oxygen Concentration - - Weight 103 kg (227 lb) 03/30/2019 2:28 PM OPTICAL LABORATORY MECHANIC Height 157.5 cm (5' 2 ) 03/30/2019 2:28 PM OPTICAL LABORATORY MECHANIC Body Mass Index 41.52 03/30/2019 2:28 PM OPTICAL LABORATORY MECHANIC documented in this encounter Progress Notes * Dayron Guzman CNA - 03/30/2019 2:30 PM CST Pt was injected with an Pneumo Vax in the lft. Deltoid , pt tolerated well with no complaints. Cosigned by Trent Severino MD at 04/18/2019 3:37 PM OPTICAL LABORATORY MECHANIC CAL LABORATORY MECHANIC CAL LABORATORY MECHANIC * Lizz Clark NP - 03/30/2019 2:30 PM CST Subjective NAME: Liliana Mancilla : 1990 DATE: 03/30/2019 Referred here Primary Care Physician: Judy Fishman NP Consult requested by: Judy Fishman, * Chief Complaint: ileal Crohn's disease HPI Liliana Mancilla, is a 28 y.o.female who presents for follow up of her ileal crohn's disease diagnosed in July 2018 after presentation with weight loss and diarrhea. She was started on entyvio in December 2018. She has had week 0,2, and 6 and induction dose. Had her first maintenance dose and is due for May 21. She reports overall improvement in her symptoms since starting Entyvio q 8 weeks. Her last colonoscopy was at time of diagnosis by Dr. Gomez at an outside hospital. She has a family history of crohn's with a paternal aunt and cousins with a history of Crohn's. She justgot and back [facility] [place] in February. She does continue to have a rising CRP despite symptomatic improvement was 15 in December and 31 in January. She just had an MRE whichshowed improvement in terminal ieal inflammation. She is having 1-3 semiformed stools daily. She reports some lower abdominal cramping usually occurring prior to menstration and prior to defecation. She is trying to get . Recent test negative. She had a few days of sciatic nerve pain last week but this has resolved. She did have an itchy generalized rash for a week or so after returning from [place]. This has resolved as well. Denies any hematochezia. Denies any nausea and vomiting. Patient Active Problem List Diagnosis Date Noted ??? High risk medications (not anticoagulants) long-term use 03/30/2019 ??? Healthcare maintenance 02/14/2019 ??? Crohn's disease of small intestine with other complication ([facility]) 12/01/2018 Year of diagnosis: 2018 symptoms began: 2018 Phenotype: Inflammatory (B1) without perianal disease. Distribution: ileal (L1) without upper GI disease (L4). Extraintestinal manifestations: none Complications: none Prior treatments: entocort, flagyl Current treatment: entyvio Prior surgeries: none Endoscopies: Colonoscopy 07/2018 at [facility] showed terminal ileitis Imaging: MRE 03/2019 [...] ??? Chronic diarrhea 11/08/2018 ??? Obesity 10/27/2018 No past medical history on file. Past Surgical History: Procedure Laterality Date ??? ANKLE FRACTURE SURGERY 2009 ??? CHOLECYSTECTOMY 2018 Family History Problem Relation [...] file Occupational History ??? Not on file Social Needs ??? Financial resource strain: Not on file ??? Food insecurity: Worry: Not on file Inability: Not on file ??? Transportation needs: Medical: Not on file Non-medical: Not on file Tobacco Use ??? Smoking status: Current Every Day Smoker Packs/day: 0.50 ??? Smokeless tobacco: Never Used Substance and Sexual Activity ??? Alcohol use: Yes Alcohol/week: 2.0 standard drinks Types: 2 Glasses of wine per week ??? Drug use: Never ??? Sexual activity: Yes Partners: Male Lifestyle ??? Physical activity: Days per week: Not on file Minutes per session: Not on file ??? Stress: Not on file Relationships ??? Social connections: Talks on phone: Not on file Gets together: Not on file Attends hindu service: Not on file Active member of club or organization: Not on file Attends meetings of clubs or organizations: Not on file Relationship status: Not on file ??? Intimate partner violence: Fear of current or ex partner: Not on file Emotionally abused: Not on file Physically abused: Not on file Forced sexual activity: Not on file Other Topics Concern ??? Not on file Social History Narrative ??? Not on file Allergies Allergen Reactions ??? Cefdinir Swelling ??? Clindamycin Swelling ??? Povidone-Iodine Rash And chlorahexadine ??? Sulfa (Sulfonamide Antibiotics) Swelling ??? Unclassified Drug Swelling ??? Morphine Itching Current Outpatient Medications Medication Sig Dispense Refill ??? budesonide EC (ENTOCORT EC) 3 mg 24 hr capsule 0 ??? cholecalciferol (VITAMIN D-3) 50,000 unit capsule Take 1 capsule (50,000 Units total) by mouth once a week (Patient not taking: Reported on 03/30/2019) 12 capsule 3 ??? cholestyramine (QUESTRAN) 4 gram packet MIX AND TK CNTS PO QD UTD 0 ??? metroNIDAZOLE (FLAGYL) 250 mg tablet TK 1 T QID 0 ??? ondansetron ODT (ZOFRAN-ODT) 4 mg disintegrating tablet Take 4 mg by mouth every 6 hours as needed ??? no122/iron/folic acid ( MULTI ORAL) Take by mouth daily ??? CHAVEZ 3-0.03 mg per tablet No current facility-administered medications for this visit. The new patient intake form was reviewed with the patient on 03/30/2019. Review of Systems: Constitutional: Negative. HENT: Negative for sore throat and trouble swallowing. Eyes: Negative. Respiratory: Negative. Cardiovascular: Negative. Gastrointestinal: See HPI Endocrine: Negative. Genitourinary: Negative. Musculoskeletal: Negative. Skin: Negative. Allergic/Immunologic: Negative. Neurological: Negative. Hematological: Negative. Psychiatric/Behavioral: Negative. Breast: Negative. Vital Signs: BP 122/81 Pulse 92 Temp 36.7 ??C (98.1 ??F) Ht 157.5 cm (5' 2 ) Wt 103 kg (227 lb) BMI 41.52 kg/m?? Physical Exam: GENERAL: Well-appearing, in no [...] and orientation Labs: Hospital Outpatient Visit on 03/26/2019 Component Date Value Ref Range Status ??? HCG, ur, POC 03/26/2019 Negative Final ??? Lot Number 03/26/2019 [id number] Final ??? QC Backgroud Clear 03/26/2019 Acceptable Final ??? QC Control Line 03/26/2019 Acceptable Final Lab on 01/29/2019 Component Date Value Ref Range Status ? ? C-RP 01/29/2019 31.6* <=10.0 mg/L Final ??? Sodium 01/29/2019 139 135 - 145 mmol/L Final ??? Potassium, pl 01/29/2019 3.8 3.3 - 4.9 mmol/L Final ??? Chloride 01/29/2019 103 97 - 110 mmol/L Final ??? CO2 01/29/2019 25 22 - 32 mmol/L Final ??? Anion gap 01/29/2019 11 2 - 15 mmol/L Final ??? BUN 01/29/2019 10 8 - 25 mg/dL Final ??? Creatinine 01/29/2019 0.58* 0.60 - 1.10 mg/dL Final ??? Glucose 01/29/2019 70 70 - 199 mg/dL Final ??? Calcium 01/29/2019 9.5 8.5 - 10.3 mg/dL Final ??? Bilirubin, total 01/29/2019 0.3 0.1 - 1.2 mg/dL Final ??? Protein, pl 01/29/2019 7.9 6.5 - 8.5 g/dL Final ??? Albumin 01/29/2019 4.2 3.5 - 5.0 g/dL Final ??? Alk phos 01/29/2019 67 40 - 130 Units/L Final ??? ALT 01/29/2019 17 7 - 45 Units/L Final ??? AST 01/29/2019 24 10 - 45 Units/L Final ??? WBC 01/29/2019 13.1* 3.8 - 9.9 K/cumm Final ??? Hgb 01/29/2019 11.5* 11.9 - 15.5 g/dL Final ??? Hct 01/29/2019 35.1* 35.6 - 45.5 % Final ??? Plt 01/29/2019 336 150 - 400 K/cumm Final ??? MPV 01/29/2019 10.5 9.1 - 12.3 fL Final ??? RBC 01/29/2019 4.12 3.90 - 5.20 M/cumm Final ??? MCV 01/29/2019 85.2 81.3 - 96.4 fL Final ??? MCH 01/29/2019 27.9 27.1 - 33.3 pg Final ??? MCHC 01/29/2019 32.8 32.3 - 35.7 g/dL Final ??? RDW CV 01/29/2019 13.9 11.1 - 14.9 % Final ??? RDW SD 01/29/2019 43.2 35.7 - 48.1 fL Final ??? NRBC abs 01/29/2019 0.00 0.00 - 0.01 K/cumm Final ??? Neutrophil abs 01/29/2019 8.7* 1.7 - 6.5 K/cumm Final ??? Imm gran abs 01/29/2019 0.0 0.0 - 0.1 K/cumm Final ??? Lymphocyte abs 01/29/2019 3.2 0.8 - 3.3 K/cumm Final ??? Monocyte abs 01/29/2019 0.6 0.2 - 0.8 K/cumm Final ??? Eosinophil abs 01/29/2019 0.5 0.0 - 0.5 K/cumm Final ??? Basophil abs 01/29/2019 0.0 0.0 - 0.1 K/cumm Final ??? Neutrophil pct 01/29/2019 66.5 % Final ??? Imm gran pct 01/29/2019 0.3 % Final ??? Lymphocyte pct 01/29/2019 24.5 % Final ??? Monocyte pct 01/29/2019 4.7 % Final ??? Eosinophil pct 01/29/2019 3.7 % Final ??? Basophil pct 01/29/2019 0.3 % Final Imaging Review MRE 03/26/19 Interval improvement of distal terminal ileum wall thickening. No new areas of small bowel wall thickening. No fluid collections or evidence of penetrating disease. ASSESSMENT and PLAN: Crohn's disease of small intestine with other complication (CMS/HCC) Ileal Crohn's disease. Diagnosed 2018. Started entyvio q 8 weeks in 12/2018. Symptomatic improvement. 1-3 semiformed stools daily. Recent MRE last week shows improvement in TI inflammation since initiation of entyvio. -continue entyvio -will continue to trend CRP -She is Hep B immunte, Had prevnar 01/26/19, has had flu shot, will do pneumovax today -f/u in 6 months High risk medications (not anticoagulants) long-term use High risk medications: As with all patients [...] us withany questions regarding new symptom development. Return in about 6 months (around 09/29/2019). Cosigned by Trent Severino MD at 04/18/2019 4:48 PM OPTICAL LABORATORY MECHANIC CAL LABORATORY MECHANIC CAL LABORATORY MECHANIC Associated attestation - Trent Severino MD - 04/18/2019 4:48 PM OPTICAL LABORATORY MECHANIC I have seen and examined the patient. I agree with the findings and plan of care as documented in the nurse practitioner's note. documented in this encounter Miscellaneous Notes * Assessment & Plan Note - Lizz Clark NP - 03/30/2019 3:48 PM OPTICAL LABORATORY MECHANIC Associated Problem(s): High risk medications (not anticoagulants) long-term use (Resolved 10/30/2022) High risk medications: As with all patients [...] us withany questions regarding new symptom development. CAL LABORATORY MECHANIC * Assessment & Plan Note - Lizz Clark NP - 03/30/2019 3:46 PM OPTICAL LABORATORY MECHANIC Associated Problem(s): Crohn's disease of small intestine with other complication (HCC) Ileal Crohn's disease. Diagnosed 2018. Started entyvio q 8 weeks in 12/2018. Symptomatic improvement. 1-3 semiformed stools daily. Recent MRE last week shows improvement in TI inflammation since initiation of entyvio. -continue entyvio -will continue to trend CRP -She is Hep B immunte, Had prevnar 01/26/19, has had flu shot, will do pneumovax today -f/u in 6 months CAL LABORATORY MECHANIC documented in this encounter Plan of Treatment Not on file documented as of this encounter Visit Diagnoses Diagnosis High risk medications (not anticoagulants) long-term use- Primary Encounter for long-term (current) use of other medications Healthcare maintenance Crohn's disease of small intestine with other complication (HCC) documented in this encounter Orders Immunization/Injection Count Last Ordered Date First Ordered Date PNEUMOCOCCAL POLYSACCHARIDE VACCINE 23-VALENT =>2YO SQ IM 1 03/30/2019 documented in this encounter Care Teams Admissions Consultant Relationship Specialty Start Date End Date Judy Fishman NP [address] [address] PCP - General 07/31/18 documented as of this encounter
--- OUTSIDE RECORDS SUMMARY | 2024-04-11 06:18 | XMS_ITS | Encounter Summary ---
Author Organization [facility] Address [address] [place] [address] Phone Care Team Providers Care Candy Separator Hard Name Role Phone Judy Fishman Brittani REGISTERED VASCULAR TECHNOLOGIST (RVT) Primary Care Provider + Reason for Visit * Reason Onset Date Comments Prior Auth 08/03/2019 dulaglutide (DEANN LICITY) 0.75 mg/0.5 mL pen injector Encounter Details Date Type Department Care Team (Late st Contact Info) Description 08/03/2019 Telephone [facility] Endocrinology Metabolism and Lipid [address] [facility] 2nd Floor [address] [place] [address] Aleida Miguel LPN Prior Auth (dulaglutide (TRULICITY) 0.75 mg/0.5 mL pen injector) Social History Tobacco Use Types Packs/Day Years Used Date Smoking Tobacco: Every Day Cigarettes Smokeless Tobacco: Never Alcohol Use Standard Drinks/Week Comments Yes 2 (1 standard drink = 0.6 oz pur e alcohol) Comments Unknown Sex and Gender Information Value Date Recorded Sex Assigned at Not on file Legal Sex Female 7:54 PM IT DESKTOP SUPPORT TECHNICIAN Gender Identity Not on file Sexual Orientation Not on file documented as of this encounter Miscellaneous Notes * Telephone Encounter - Mulu De La Torre MD - 08/18/2019 12:41 PM CDT I have started the patient on an alternative treatment. Thanks * Telephone Encounter - Aleida Miguel LPN - 08/04/2019 7:[address] De La Torre, please see prior auth denial and explanation per prior auth department. * Telephone Encounter - Sammie Martinez COA - 08/04/2019 7:06 AM CDT A documented diagnosis of Type 2 DM was NOT reported in note or in problem list. A LMN is needed. * Telephone Encounter - Aleida Miguel LPN - 08/03/2019 4:[address] De La Torre's office visit note dated 06/15/19: She has taken metformin before, but couldn't tolerate due to severe diarrhea. Has been on glyburidein the past. currently she is not taking any anti hyperglycemia drug. She reports that her WIRE TEMPERER physician has checked her insulin level which was elevated, so was told she has insulin resistance. Her most recent A1c is 5.2% per her report. * Telephone Encounter - Sammie Martinez COA - 08/03/2019 10:05 AM CDT [place]: [id number] Trulicity 0.75MG/0.5ML pen-injectors Status:Denied Reason:The pt does NOT have a diagnosis of Type 2 diabetes mellitus and the patient has NOT tried and had an inadequate response to one or more of the following antidiabetic agents: an agent containing metformin, sulfonylurea, insulin, or insulin/GLP-1.Please write a letter of medical necessity if you wish to appeal. * Telephone Encounter - Aleida Miguel LPN - 08/03/2019 8:00 AM CDT Prior Auth dulaglutide (TRULICITY) 0.75 mg/0.5 mL pen injector Polycystic Ovarian Syndrome Class 3 severe obesity without serious comorbidity with body mass index (BMI) of 40.0 to 44.9 in adult, unspecified obesity type documented in this encounter Plan of Treatment Not on file documented as of this encounter Visit Diagnoses Not on filedocumented in this encounter Care Teams Candy Separator Hard Relationship Specialty Start Date End Date Judy Fishman NP [address] [address] PCP - General 07/31/18 documented as of this encounter
--- OUTSIDE RECORDS SUMMARY | 2024-04-11 06:18 | XMS_ITS | Encounter Summary ---
Author Organization [facility] Address [address] [place] [address] Care Team Providers Care Coil Connector Repairer Name Role Phone Judy Fishmna RESOURCE TEACHER Primary Care Provider + Encounter Details Date Type Department Care Team (Late st Contact Info) Description 03/30/2019 Documentation Gastroententerology Tia Walden BS Social History Tobacco Use Types Packs/Day Years Used Date Smoking Tobacco: Every Day Cigarettes Smokeless Tobacco: Never Alcohol Use Standard Drinks/Week Comments Yes 2 (1 standard drink = 0.6 oz pur e alcohol) Comments Unknown Sex and Gender Information Value Date Recorded Sex Assigned at Not on file Legal Sex Female 7:54 PM WASTE WATER TREATMENT PLANT OPERATOR Gender Identity Not on file Sexual Orientation Not on file documented as of this encounter Miscellaneous Notes * Research Note - Tia Walden BS - 03/30/2019 11:59 PM CST Follow up office visit. Post MRE, TI inflammation improvement. Continuing treatment with entyvio [id number]. E WATER TREATMENT PLANT OPERATOR documented in this encounter Plan of Treatment Not on file documented as of this encounter Visit Diagnoses Not on filedocumented in this encounter Care Teams Coil Connector Repairer Relationship Specialty Start Date End Date Judy Fishman NP [address] [place] [address] PCP - General 07/31/18 documented as of this encounter
--- OUTSIDE RECORDS SUMMARY | 2024-04-11 06:18 | XMS_ITS | Encounter Summary ---
Author Organization [facility] Address [address] [place] [address] Phone Care Team Providers Care Pool Servicer Name Role Phone Judy Fishman UNIT AIDE Primary Care Provider + Encounter Details Date Type Department Care Team (Late st Contact Info) Description 01/26/2019 3:00 PM CDT Office Visit [facility] Gastroenterology [facility] Advanced Medicine [address]th [place] [address] [place] [address] Trent Severino MD [address] [place], [place] [id number] Chronic diarrhea (Primary Dx); Crohn's disease of small intestine with other complication (CMS/HCC); Healthcare maintenance; Iron deficiency anemia due to chronic blood loss Social History Tobacco Use Types Packs/Day Years Used Date Smoking Tobacco: Every Day Cigarettes Smokeless Tobacco: Never Alcohol Use Standard Drinks/Week Comments Yes 2 (1 standard drink = 0.6 oz pur e alcohol) Comments Unknown Sex and Gender Information Value Date Recorded Sex Assigned at Not on file Legal Sex Female 7:54 PM OFFSET PLATE MAKER Gender Identity Not on file Sexual Orientation Not on file documented as of this encounter Last Filed Vital Signs Vital Sign Reading Time Taken Comments Blood Pressure 117/77 01/26/2019 2:25 PM CDT Pulse 101 01/26/2019 2:25 PM CDT Temperature 36.9 ??C (98.4 ??F) 01/26/2019 2:25 PM CD T Respiratory Rate - - Oxygen Saturation - - Inhaled Oxygen Concentration - - Weight 98.7 kg (217 lb 9.6 oz) 01/26/2019 2:25 P M CDT Height 157.5 cm (5' 2 ) 01/26/2019 2:25 PM CDT Body Mass Index 39.8 01/26/2019 2:25 PM CDT documented in this encounter Progress Notes * Javon Sanchez MA - 01/26/2019 3:00 PM CDT PT GIVEN PREVNAR VACCINE IN LT ARM, PT TOLERATED WELL Cosigned by Trent Severino MD at 02/14/2019 3:51 PM OFFSET PLATE MAKER ET PLATE MAKER ET PLATE MAKER * Trent Severino MD - 01/26/2019 3:00 PM CDT Reason for visit: newly diagnose crohns disease. Present with her mother. Problem List: Patient Active Problem List Diagnosis ??? Obesity ??? Chronic diarrhea ??? Iron deficiency anemia due to chronic blood loss ??? Crohn's disease of small intestine with other complication (CMS/HCC) ??? Healthcare maintenance HPI: Liliana Mancilla is a 28 y.o. female who was in her usual state of health until end of . Her base BM is 1-2 formed bm , She started having 20+ movement, associated with abdominal pain. During that course she lost about 67 lbs (mostly intentional). She Denies BRBPR ,fever or chills. She was seen by her pcp and has done stool cx and c-diff which was negative. She was put on flagyl at the beginning of August which did not help. Following that, she had a small bowel barium which showed mild thickening of her proximal bowel.This was followed by a colonoscopy in July 20 which showed mild chronic inflammation in the terminal ileum but otherwise normal. Then she was put on a tapered courseof entecort by the end of August , started on 9 mg and currently off. She noted marked improvement with 1-5 Bm soft to loose , with no abdominal pain. She denies extraintestinal manefistation, specifically, No ulcers , joint pain, skin rash, ulcer, perianal symptoms,back pain or eye redness. 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 Started on Entyvio with up to 3 BMs a day, soft, with rare crampy abd pain and sleep disturbances. No past medical history on file. Family History Problem Relation Age of Onset [...] file Gets together: Not on file Attends zoroastrianism service: Not on file Active member of [...] Social History Narrative ??? Not on file Current Outpatient Medications Medication Sig Dispense Refill ??? cholecalciferol (VITAMIN D-3) 50,000 unit capsule Take 1 capsule (50,000 Units total) by mouth once a week 12 capsule 3 ??? no122/iron/folic acid ( MULTI ORAL) Take by mouth daily ??? CHAVEZ 3-0.03 mg per tablet ??? budesonide EC (ENTOCORT EC) 3 mg 24 hr capsule 0 ??? cholestyramine (QUESTRAN) 4 gram packet MIX AND TK CNTS PO QD UTD 0 ??? metroNIDAZOLE (FLAGYL) 250 mg tablet TK 1 T QID 0 ??? ondansetron ODT (ZOFRAN-ODT) 4 mg disintegrating tablet Take 4 mg by mouth every 6 hours as needed No current facility-administered medications for this visit. The new patient intake form was reviewed with the patient on 01/26/2019. Review of Systems: No significant ROS Physical Exam: BP 117/77 Pulse 101 Temp 36.9 ??C (98.4 ??F) Ht 157.5 cm (5' 2 ) Wt 98.7 kg (217 lb 9.6 oz) BMI 39.80 kg/m?? GENERAL: Well developed well nourished, in no acute distress. HEENT: Normocephalic atraumatic. Sclerae anicteric. NECK: Supple without lymphadenopathy or thyromegaly. LUNGS: Clear to auscultation bilaterally. No wheezes, rales, rhonchi. CARDIOVASCULAR: Regular rate and rhythm without murmurs. ABDOMEN: Soft, nondistended, nontender. Normoactive bowel sounds. No hepatosplenomegaly. EXTREMITIES: Noclubbing, cyanosis, edema. SKIN: No rashes or jaundice. Labs: Lab Results Component Value Date WBC 13.1 (H) 01/29/2019 HGB 11.5 (L) 01/29/2019 HCT 35.1 (L) 01/29/2019 MCV 85.2 01/29/2019 LABPLAT 336 01/29/2019 Lab Results Component Value Date GLUCOSE 70 01/29/2019 CALCIUM 9.5 01/29/2019 SODIUM 139 01/29/2019 POTASSIUM 3.8 01/29/2019 CO2 25 01/29/2019 CHLORIDE 103 01/29/2019 BUNSER 10 01/29/2019 CREATININE 0.58 (L) 01/29/2019 Lab Results Component Value Date ALT 17 01/29/2019 AST 24 01/29/2019 ALKPHOS 67 01/29/2019 BILITOT 0.3 01/29/2019 Lab Results Component Value Date IRON 82 10/27/2018 TIBC 459 (H) 10/27/2018 FERRITIN 58 10/27/2018 No results found for: OCCULTBLD No results found for: AMYLASE Lab Results Component Value Date LIPASE 39 05/12/2017 Lab Results Component Value Date HEPBCAB Nonreactive 10/27/2018 No results found for: AFP . Visit Diagnoses: 1. Chronic diarrhea 2. Crohn's disease of small intestine with other complication (CMS/HCC) 3. Healthcare maintenance Assessment/Plan: 28 year old female with chronic diarrhea with negative stool studies. Her colonoscopy showed mild chronic inflammation at the terminal ileum. She responded well to a tapered course of Entecort. Started on Entyvio and now having up to 3 BMs a day with rare crampy abdominal pain MRE enterography shows extremely mild wall thickening and mucosal enhancement of the distal 2 cm of terminal ileum. CRP was elevated at 16.2. 1.New onset Ileal crohn's. - Entyvio start. - MRE in 14-16 weeks. - CRP repeat 2. Health maintenance : - Prevnar followed 8-12 weeks later by Pneumovax to be discussed at next visit. - Does not need a DEXA scan. - Annual pap smears are recommended. ET PLATE MAKER documented in this encounter Plan of Treatment Not on file documented as of this encounter Visit Diagnoses Diagnosis Chronic diarrhea- Primary Diarrhea Crohn's disease of small intestine with other complication (HCC) Healthcare maintenance Iron deficiency anemia due to chronic blood loss Iron deficiency anemia secondary to blood loss (chronic) documented in this encounter Historical Medications * This list may reflect changes made after this encounter. no122/iron/folic acid ( MULTI ORAL) Take by mouth daily 05/31/2021 added in this encounter Orders Immunization/Injection Count Last Ordered Date First Ordered Date PNEUMOCOCCAL CONJUGATE VACCI NE 13-VALENT IM 1 01/26/2019 documented in this encounter Care Teams Pool Servicer Relationship Specialty Start Date End Date Judy Fishman NP [address] [address] PCP - General 07/31/18 documented as of this encounter
--- OUTSIDE RECORDS SUMMARY | 2024-04-11 06:18 | XMS_ITS | Encounter Summary ---
Author Organization [facility] Address [address] [place] [address] Phone Care Team Providers Care Pharmacist Assistant Name Role Phone Judy Fishman RESIDENTIAL LIVING ASSISTANT Primary Care Provider + Reason for Visit * Episode Based Medications (Routine) - Pending Review Specialty Diagnoses / Procedures Referred By Mary roberson Referred To Contact Diagnoses Crohn's disease of small intestine with other complication (HCC) Procedures VA INJECTION, VEDOLIZUMAB Trent Severino MD [address] [place] [address] Phone: tel: fax: [facility] Infusion Therapy [facility] Advanced Medicine 5th [place] [address] [place] [address] Phone: tel: fax: Referral ID Status Reason Start Date Expiration Date V isits Requested Visits Authorized [id number] Pending Review 09/26/2021 09/26/[phone] Encounter Details Date Type Department Care Team (Late st Contact Info) Description 12/17/2018 2:00 PM CDT Infusion [facility] Infusion Therapy [facility] Advanced Medicine 5th [place] [address] [place] [address] Crohn's disease of small intestine [...] on file Legal Sex Female 7:54 PM GRADES 1 THROUGH 6 TEACHER Gender Identity Not on file Sexual Orientation Not on file documented as of this encounter Last Filed Vital Signs Vital Sign Reading Time Taken Comments Blood Pressure 127/83 12/17/2018 1:54 PM CDT Pulse 105 12/17/2018 1:54 PM CDT Temperature 36.8 ??C (98.2 ??F) 12/17/2018 1:54 PM CD T Respiratory Rate - - Oxygen Saturation - - Inhaled Oxygen Concentration - - Weight - - Height - - Body Mass Index - - documented in this encounter Progress Notes * Justin Bean RN - 12/17/2018 2:00 PM CDT Infusion Center for Entyvio 300 mg infusion in 250 cc NS over 45 minutes - 1st infusion (475 ml/hr). Denied signs/sx of infection. Voiced no c/o. No pre medications. IV inserted LAC without problems. Labs drawn: CBC, CRP, CMP, study labs for research coordinator. Reviewed procedure/drug side effects/reactions. Mom with patient majority of treatment. VSS. No adverse events. F/U appointment in 2 weeks scheduled. Ambulatory post from unit with Mom. documented in this encounter Plan of Treatment [...] mL/hr, Administer over 30 Minutes, Once, On Fri12/18/18 at 2030, For 1 doseIndications:Crohn's disease of small intestine with other complication (HCC) New Bag 12/17/2018 2:15 PM CDT 300 mg 5 10 mL/hr documented in this encounter Orders Medications Ordered That Jonathan ht Not Have Been Administered Count Last Ordered Date First Ordered Date sodium chloride 0.9% flush 10 mL 1 12/18/19 19 vedolizumab (ENTYVIO) 300 mg in sodium chloride 0.9% 250 mL IVPB 1 12/17/2018 Nursing Count Last Ordered Date First Orde red Date DAILY WEIGHTS 1 12/17/2018 ONCBCN NO PREMEDS NEEDED 1 12/17/2018 ONCBCN NURSING COMMUNICATION [id number] 1 0 12/17/2018 ONCBCN PROVIDER COMMUNICATION 1 1 9 VITAL SIGNS PRE-INFUSION 1 12/17/2018 documented in this encounter Care Teams Pharmacist Assistant Relationship Specialty Start Date End Date Judy Fishman NP [address] [id number] PCP - General 07/31/18 documented as of this encounter
--- OUTSIDE RECORDS SUMMARY | 2024-04-11 06:18 | XMS_ITS | Encounter Summary ---
Author Organization [facility] Address [address] [place] [address] Phone Care Team Providers Care Prison Librarian Name Role Phone [place] Judy Brittani STUDIO CAMERA OPERATOR Primary Care Provider + Reason for Visit * Reason Onset Date Comments response to [place] message 08/12/2019 Encounter Details Date Type Department Care Team (Late st Contact Info) Description 08/12/2019 Telephone [facility] Endocrinology Metabolism and Lipid [address] [facility] 2nd Floor [address] [place] [address] Cornelius Grant EMT response to [place] message Social History Tobacco Use Types Packs/Day Years Used Date Smoking Tobacco: Every Day Cigarettes Smokeless Tobacco: Never Alcohol Use Standard Drinks/Week Comments Yes 2 (1 standard drink = 0.6 oz pur e alcohol) Comments Unknown Sex and Gender Information Value Date Recorded Sex Assigned at Not on file Legal Sex Female 7:54 PM PASTRY DECORATOR Gender Identity Not on file Sexual Orientation Not on file documented as of this encounter Miscellaneous Notes * Telephone Encounter - Cornelius Grant EMT - 08/12/2019 2:43 PM CDT LMOR to have patient call us back to to clarify if she wants to be seen in person vs. Telemedicine and if so try to fix whatever issues she was having with her mychart * Telephone Encounter - Cornelius Grant EMT - 08/12/2019 2:42 PM CDT ----- Message from Liliana Mancilla sent at 08/12/2019 2:12 PM CDT ----- Regarding: Visit Follow-Up Question Contact: In Dr. De La Torre I was called about our appointment on FridayAugust 16 at 2pm. I got a message about signing the consent form for the video visit instead of in person and it say I need to check in but when I go to do it it won't allow me to. The lady I spoke to had no idea why it was doing that and could not help me. So I'm not sure of what to do from here. documented in this encounter Plan of Treatment Not on file documented as of this encounter Visit Diagnoses Not on filedocumented in this encounter Care Teams Prison Librarian Relationship Specialty Start Date End Date Judy Fishman NP [address] [address] PCP - General 07/31/18 documented as of this encounter
--- OUTSIDE RECORDS SUMMARY | 2024-04-11 06:18 | XMS_ITS | Encounter Summary ---
Author Organization [facility] Address [address] [place] [address] Phone Care Team Providers Care Acid Dumper Name Role Phone Judy Fishman IMPORT/EXPORT AGENT Primary Care Provider + Encounter Details Date Type Department Care Team (Late st Contact Info) Description 08/16/2019 Telephone [facility] Infusion Therapy [address] [facility] 5th [place] [address] [place] [address] Speedy Bower, [place] Social History Tobacco Use Types Packs/Day Years Used Date Smoking Tobacco: Every Day Cigarettes Smokeless Tobacco: Never Alcohol Use Standard Drinks/Week Comments Yes 2 (1 standard drink = 0.6 oz pur e alcohol) Comments Unknown Sex and Gender Information Value Date Recorded Sex Assigned at Not on file Legal Sex Female 7:54 PM ASSOCIATE PROFESSOR OF LIBRARY SCIENCE Gender Identity Not on file Sexual Orientation Not on file documented as of this encounter Miscellaneous Notes * Telephone Encounter - Speedy Bower RN - 08/16/2019 2:01 PM CDT [id number] Prescreen documented in this encounter Plan of Treatment Not on file documented as of this encounter Visit Diagnoses Not on filedocumented in this encounter Care Teams Acid Dumper Relationship Specialty Start Date End Date Judy Fishman NP [address] [address] PCP - General 07/31/18 documented as of this encounter
--- OUTSIDE RECORDS SUMMARY | 2024-04-11 06:18 | XMS_ITS | Encounter Summary ---
Author Organization [facility] Address [address] [place] [address] Phone Care Team Providers Care Ghost Writer Name Role Phone Judy Fishman DIORAMIST Primary Care Provider + Reason for Visit * Episode Based Medications (Routine) - Pending Review Specialty Diagnoses / Procedures Referred By Mary roberson Referred To Contact Diagnoses Crohn's disease of small intestine with other complication (HCC) Procedures AR INJECTION, VEDOLIZUMAB Trent Severino MD [address] [place] [address] Phone: tel: fax: [facility] Infusion Therapy [facility] Advanced Medicine 5th [place] [address] [place] [address] Phone: tel: fax: Referral ID Status Reason Start Date Expiration Date V isits Requested Visits Authorized [id number] Pending Review 09/26/2021 09/26/[phone] Encounter Details Date Type Department Care Team (Late st Contact Info) Description 01/01/2019 2:00 PM CDT Infusion [facility] Infusion Therapy [facility] Advanced Medicine 5th [place] [address] [place] [address] Crohn's disease of small intestine [...] on file Legal Sex Female 7:54 PM FLOOR PERSON Gender Identity Not on file Sexual Orientation Not on file documented as of this encounter Last Filed Vital Signs Vital Sign Reading Time Taken Comments Blood Pressure 114/79 01/01/2019 2:45 PM CDT Pulse 88 01/01/2019 2:45 PM CDT Temperature 37.1 ??C (98.7 ??F) 01/01/2019 2:45 PM CD T Respiratory Rate - - [...] mL/hr, Administer over 30 Minutes, Once, On Fri01/01/19 at 1422, For 1 doseIndications:Crohn's disease of small intestine with other complication (HCC) New Bag 01/01/2019 2:10 PM CDT 300 mg 5 10 mL/hr documented in this encounter Orders Medications Ordered That Jonathan ht Not Have Been Administered Count Last Ordered Date First Ordered Date vedolizumab (ENTYVIO) 300 mg in sodium chloride 0.9% 250 mL IVPB 1 01/01/2019 Nursing Count Last Ordered Date First Orde red Date VITAL SIGNS PRE-INFUSION 1 01/01/2019 documented in this encounter Care Teams Ghost Writer Relationship Specialty Start Date End Date Judy Fishman NP [address] [address] PCP - General 07/31/18 documented as of this encounter
--- OUTSIDE RECORDS SUMMARY | 2024-04-11 06:18 | XMS_ITS | Encounter Summary ---
Author Organization [facility] Address [address] [place] [address] Care Team Providers Care Outside Plant Field Engineer Name Role Phone Judy Fishman DIRECTOR OF REAL ESTATE Primary Care Provider + Encounter Details Date Type Department Care Team (Late st Contact Info) Description 01/26/2019 Documentation Gastroententerology Tia Walden BS Social History Tobacco Use Types Packs/Day Years Used Date Smoking Tobacco: Every Day Cigarettes Smokeless Tobacco: Never Alcohol Use Standard Drinks/Week Comments Yes 2 (1 standard drink = 0.6 oz pur e alcohol) Comments Unknown Sex and Gender Information Value Date Recorded Sex Assigned at Not on file Legal Sex Female 7:54 PM ADMINISTRATIVE PROJECT COORDINATOR Gender Identity Not on file Sexual Orientation Not on file documented as of this encounter Miscellaneous Notes * Research Note - Tia Walden BS - 01/26/2019 11:59 PM CDT Post MRE office visit. NISTRATIVE PROJECT COORDINATOR documented in this encounter Plan of Treatment Not on file documented as of this encounter Visit Diagnoses Not on filedocumented in this encounter Care Teams Outside Plant Field Engineer Relationship Specialty Start Date End Date Judy Fishman NP [address] [facility] [address] [place] [address] PCP - General 07/31/18 documented as of this encounter
--- OUTSIDE RECORDS SUMMARY | 2024-04-11 06:18 | XMS_ITS | Encounter Summary ---
Author Organization [facility] Address [address] [place] [address] Phone Care Team Providers Care Deaf Teacher Name Role Phone Judy Fishman BACKGROUND INVESTIGATOR Primary Care Provider + Encounter Details Date Type Department Care Team (Late st Contact Info) Description 06/16/2019 Telephone [facility] Gastroenterology [address] [place] [address] 8th [place] [address] [place] [address] Cammy, Susan, RMA Social History Tobacco Use Types Packs/Day Years Used Date Smoking Tobacco: Every Day Cigarettes Smokeless Tobacco: Never Alcohol Use Standard Drinks/Week Comments Yes 2 (1 standard drink = 0.6 oz pur e alcohol) Comments Unknown Sex and Gender Information Value Date Recorded Sex Assigned at Not on file Legal Sex Female 7:54 PM WINDOWS SERVER ADMINISTRATOR Gender Identity Not on file Sexual Orientation Not on file documented as of this encounter Miscellaneous Notes * Telephone Encounter - Abiola Silverman RN - 06/17/2019 9:42 AM CST Called pt back. Pt stated that she has not had any problems yet today because she hasn't eaten anything. Diarrhea starts pretty soon after eating. Asked pt if she had tried taking imodium. Pt stated that she took it during her last flare and it immediately put her in a constipated state and increased her abdominal cramping tremendously. Recommended a prednisone taper. Pt stated that she really did not want to be on prednisone because she was trying to lose weight (the stressor) and she immediately puts on a lot of weight on pred. Suggested that pt try incorporating more 'sticky' foods such as marshmallows and white bread to help bulk up stool and a more bland diet. Pt agreeable to recomm endations but had concerns about sxs over the weekend. Course of budesonide called into pharmacy. Pt was just increased to q 6 week dosing of entvyio and is scheduled for 07/01. This will be the firstq 6 week dose. Too early to get trough. Asked pt to call back on Friday to update on sxs. OWS SERVER ADMINISTRATOR * Telephone Encounter - Susan Chawla BS - 06/16/2019 2:44 PM CST Symptoms consists of: Diarrhea nonstop for 2 days - very very soft sometimes then liquid others (liquid being more). 3 x's in the past hour today. Abdominal pain when having the bowel movements. 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 No other symptoms to report. Denies fever, vomiting, nausea, blood in stool. Symptoms are similar to her first flare when she was first diagnosed back in Nov 2018. Does not feel like anything has triggered it such as any sour food or anything of that nature. Also, spoke to mom who states that patient is under a lot stress lately. Trying to get . Upset with recommendations that doctor wants her to do and is unsure if this would trigger a flare. She has had about 3 or 4 Entyvio treatments. OWS SERVER ADMINISTRATOR documented in this encounter Plan of Treatment Not on file documented as of this encounter Visit Diagnoses Not on filedocumented in this encounter Care Teams Deaf Teacher Relationship Specialty Start Date End Date Judy Fishman NP [address] [address] PCP - General 07/31/18 documented as of this encounter
--- OUTSIDE RECORDS SUMMARY | 2024-04-11 06:18 | XMS_ITS | Encounter Summary ---
Author Organization [facility] Address [address] [place] [address] Phone Care Team Providers Care Customer Service Correspondence Clerk Name Role Phone Judy Fishman RESIDENT ASSISTANT CNA Primary Care Provider + Encounter Details Date Type Department Care Team (Late st Contact Info) Description 06/17/[address] [facility] Gastroenterology [address] [facility] Advanced Medicine 8th [place] [address] [place] [address] Trent Severino MD [address] [place] [address] Social History Tobacco Use Types Packs/Day Years Used Date Smoking Tobacco: Every Day Cigarettes Smokeless Tobacco: Never Alcohol Use Standard Drinks/Week Comments Yes 2 (1 standard drink = 0.6 oz pur e alcohol) Comments Unknown Sex and Gender Information Value Date Recorded Sex Assigned at Not on file Legal Sex Female 7:54 PM STARTER CUP POWDER MIXER Gender Identity Not on file Sexual Orientation Not on file documented as of this encounter Ordered Prescriptions Prescription Sig Dispense Quantity Refills Last Filled Start Date End Date budesonide EC (ENTOCORT EC) 3 mg 24 hr capsule Take 3 capsules (9 mg total) by mouth every morning 90 capsule 06/17/2019 0 documented in this encounter Plan of Treatment Not on file documented as of this encounter Visit Diagnoses Not on filedocumented in this encounter Care Teams Customer Service Correspondence Clerk Relationship Specialty Start Date End Date Judy Fishman, BINU [address] [address] PCP - General 07/31/18 documented as of this encounter
--- OUTSIDE RECORDS SUMMARY | 2024-04-11 06:18 | XMS_ITS | Encounter Summary ---
Author Organization [facility] Healthcare Address [address] [place] [address] Care Team Providers Care Felt Hat Steamer Name Role Phone KyeSimoneJudy Brittani QUALITY TECHNICIAN FIBERGLASS Primary Care Provider + Encounter Details Date Type Department Care Team (Late st Contact Info) Description 12/17/2018 6:00 PM CDT Lab [address] [address] Crohn's disease of small intestine with other complication (CMS/HCC) Social History Tobacco Use Types Packs/Day Years Used Date Smoking Tobacco: Every Day Cigarettes Smokeless Tobacco: Never Alcohol Use Standard Drinks/Week Comments Yes 2 (1 standard drink = 0.6 oz pur e alcohol) Comments Unknown Sex and Gender Information Value Date Recorded Sex Assigned at Not on file Legal Sex Female 7:54 PM LEASE ADMINISTRATOR Gender Identity Not on file Sexual Orientation Not on file documented as of this encounter Plan of Treatment Not on file documented as of this encounter Procedures Procedure Name Priority Date/Time Associated Diagnosis Comments CRP (ACUTE PHASE) Routine 12/17/2018 2:1 0 PM CDT Crohn's disease of small intestine with other complication (CMS/HCC) documented in this encounter Results * (ABNORMAL) CRP (acute phase) (12/17/2018 2:10 PM CDT) CRP 15.6(H) <=10.0 mg/L [facility] Blood specimen (specimen) 12/17/2018 2:10 PM CDT 12/17/2018 6:02 PM CDT us Trent Severino MD LAB BLOOD ORDERABLES Final Re sult [facility] [address] [place] [address] documented in this encounter Visit Diagnoses Diagnosis Crohn's disease of small intestine with other complication (HCC) documented in this encounter Care Teams Felt Hat Steamer Relationship Specialty Start Date End Date Judy Fishman NP [address] [address] PCP - General 07/31/18 documented as of this encounter
--- OUTSIDE RECORDS SUMMARY | 2024-04-11 06:18 | XMS_ITS | Encounter Summary ---
Author Organization [facility] Address [address] [place] [address] Phone Care Team Providers Care Regional Engineer Name Role Phone Judy Fishman FUEL CELL ENGINEER Primary Care Provider + Reason for Visit * Episode Based Medications (Routine) - Pending Review Specialty Diagnoses / Procedures Referred By Mary roberson Referred To Contact Diagnoses Crohn's disease of small intestine with other complication (HCC) Procedures UT INJECTION, VEDOLIZUMAB Trent Severino MD [address] [place] [address] Phone: tel: fax: [facility] Infusion Therapy [facility] Advanced Medicine 5th [place] [address] [place] [address] Phone: tel: fax: Referral ID Status Reason Start Date Expiration Date V isits Requested Visits Authorized [id number] Pending Review 09/26/2021 09/26/[phone] Encounter Details Date Type Department Care Team (Late st Contact Info) Description 05/21/2019 1:00 PM BIOMETRIC TECHNICIAN Infusion [facility] Infusion Therapy [facility] Advanced Medicine 5th [place] [address] [place] [address] Crohn's disease of small intestine [...] on file Legal Sex Female 7:54 PM BIOMETRIC TECHNICIAN Gender Identity Not on file Sexual Orientation Not on file documented as of this encounter Last Filed Vital Signs Vital Sign Reading Time Taken Comments Blood Pressure 136/80 05/21/2019 1:40 PM BIOMETRIC TECHNICIAN Pulse 87 05/21/2019 1:40 PM BIOMETRIC TECHNICIAN Temperature 36.8 ??C (98.2 ??F) 05/21/2019 1:40 PM CS T Respiratory Rate 14 05/21/2019 1:40 PM BIOMETRIC TECHNICIAN Oxygen Saturation - - Inhaled Oxygen Concentration - - Weight - - Height - - Body Mass Index - - documented in this encounter Plan of Treatment Not on file documented as of this encounter Procedures Procedure Name Priority Date/Time Associated Diagnosis Comments CBC WITH AUTO DIFFERENTIAL Routine 05/21/2019 12:44 PM BIOMETRIC TECHNICIAN Crohn's disease of small intestine with other complication (CMS/HCC) CRP, HIGH SENSITIVITY Routine 05/21/2019 12:44 PM BIOMETRIC TECHNICIAN Crohn's disease of small intestine with other complication (CMS/HCC) COMPREHENSIVE METABOLIC PANEL Routine 05/21/2019 12:44 PM BIOMETRIC TECHNICIAN Crohn's disease of small intestine with other complication (CMS/HCC) documented in this encounter Results * (ABNORMAL) CBC with auto differential (05/21/2019 12:44 PM BIOMETRIC TECHNICIAN) White Blood Count 12.6(H) 3.6 - 11.2 K/uL [facility] RBC 4.38 3.63 - 4.92 M/uL [facility] Hemoglobin 12.3 11.9 - 15.5 g/dL [facility] Hematocrit 37.3 36.1 - 44.3 % [facility] MCV 85.3 80.0 - 97.6 fL [facility] MCH 28.0 26.7 - 33.7 pg [facility] MCHC 32.8 32.7 - 35.5 g/dL [facility] RBC Dist Width 14.0 12.3 - 17.0 % [facility] Platelet Count 344 140 - 440 K/uL [facility] MPV 8.3 6.8 - 10.4 fL [facility] Neutrophils % 49.7 38.7 - 74.5 % [facility] Lymphocyte % 38.1 20.0 - 54.3 % [facility] Monocytes % 4.6 4.3 - 13.5 % [facility] Eosinophils % 7.1(H) 0.0 - 6.0 % [facility] Basophil % 0.5 0.0 - 3.0 % [facility] Absolute Neutrophil 6.3 1.8 - 6.6 K/uL [facility] Absolute Lymphocyte 4.8(H) 0.8 - 3.3 K/uL [facility] Absolute Monocyte 0.6 0.2 - 1.2 K/uL [facility] Absolute Eosinophil 0.9(H) 0.0 - 0.5 K/uL [facility] Absolute Basophil 0.1 0.0 - 0.2 K/uL [facility] Nucleated RBC % 0.0 0.0 - 0.4 /100 WBC [facility] Blood specimen (specimen) 05/21/2019 12:44 PM BIOMETRIC TECHNICIAN 05/21/2019 1:06 PM BIOMETRIC TECHNICIAN us Trent Severino MD LAB BLOOD ORDERABLES Final Re sult [facility] * (ABNORMAL) Comprehensive metabolic panel (05/21/2019 12:44 PM BIOMETRIC TECHNICIAN) Total Protein 8.2 6.1 - 8.4 g/dL [facility] Albumin 4.7 3.5 - 5.2 g/dL [facility] Calcium 9.5 8.6 - 10.3 mg/dL [facility] BUN 8 7 - 23 mg/dL [facility] Total Bilirubin 0.28 0.20 - 1.40 mg/dL [facility] Alk Phos, Total 93 35 - 129 IU/L [facility] AST (SGOT) 19 11 - 47 IU/L [facility] ALT (SGPT) 27 6 - 53 IU/L [facility] Creatinine 0.57(L) 0.60 - 1.10 mg/dL [facility] Sodium 140 135 - 145 mmol/L [facility] Potassium 3.7 3.3 - 5.1 mmol/L [facility] Chloride 101 95 - 107 mmol/L [facility] CO2 Content 24 21 - 29 mmol/L [facility] Glucose 76 64 - 99 mg/dL [facility] Comment: NONFASTING GLUCOSE RANGE = 64-199 mg/dL FASTING GLUCOSE 64 - 99 = NORMAL FASTING GLUCOSE 100 - 125 = IMPAIRED FASTING GLUCOSE FASTING GLUCOSE >=126 = PROVISIONAL DIAGNOSIS OF DIABETES eGFR NON-AFR. CUBAN >90.0 >60.0 mL/min/1.7 3 m2 [facility] eGFR >90.0 >60.0 mL/min/1.7 3 m2 [facility] Blood specimen (specimen) (Blood, Venous) 05/21/2019 12:44 PM BIOMETRIC TECHNICIAN 05/21/2019 1:06 PM BIOMETRIC TECHNICIAN Trent Severino MD LAB BLOOD ORDERABLES Final Re sult Performing Organization Address City/[facility]/ZIP Co de Phone Number [facility] * (ABNORMAL) CRP, high sensitivity (05/21/2019 12:44 PM BIOMETRIC TECHNICIAN) CRP, High Sensitivity 12.40(H) 0.00 - 3.00 mg/L [facility] Comment: Repeated and Verified hsCRP Cardiovascular Risk Assessment Less than 1.0 mg/L = Low Risk 1.0 - 3.0 mg/L ? = Average Risk More than 3.0 mg/L = High Risk Blood specimen (specimen) 05/21/2019 12:44 PM BIOMETRIC TECHNICIAN 05/21/2019 1:06 PM BIOMETRIC TECHNICIAN Trent Severino MD LAB BLOOD ORDERABLES Final Re sult [facility] documented in [...] mL/hr, Administer over 30 Minutes, Once, On Fri05/21/19 at 1257, For 1 doseIndications:Crohn's disease of small intestine with other complication (HCC) New Bag 05/21/2019 1:00 PM BIOMETRIC TECHNICIAN 300 mg 5 10 mL/hr documented in this encounter Orders Medications Ordered That Jonathan ht Not Have Been Administered Count Last Ordered Date First Ordered Date vedolizumab (ENTYVIO) 300 mg in sodium chloride 0.9% 250 mL IVPB 1 05/21/2019 Nursing Count Last Ordered Date First Orde red Date DAILY WEIGHTS 1 05/21/2019 ONCBCN NO PREMEDS NEEDED 1 05/21/2019 ONCBCN NURSING COMMUNICATION [id number] 1 0 05/21/2019 ONCBCN PROVIDER COMMUNICATION 1 1 0 VITAL SIGNS PRE-INFUSION 1 05/21/2019 documented in this encounter Care Teams Regional Engineer Relationship Specialty Start Date End Date Judy Fishman NP [address] [place] [address] PCP - General 07/31/18 documented as of this encounter
--- OUTSIDE RECORDS SUMMARY | 2024-04-11 06:18 | XMS_ITS | Encounter Summary ---
Author Organization [facility] Healthcare Address [address] [place] [address] Care Team Providers Care Radiology Specialist Name Role Phone Kye Judy Brittani TOOTH GRINDER Primary Care Provider + Encounter Details Date Type Department Care Team (Late st Contact Info) Description 03/26/2019 2:30 PM MEDICAL OFFICE ASSISTANT Lab [address] [address] Crohn's disease of small intestine with other complication (CMS/HCC) Social History Tobacco Use Types Packs/Day Years Used Date Smoking Tobacco: Every Day Cigarettes Smokeless Tobacco: Never Alcohol Use Standard Drinks/Week Comments Yes 2 (1 standard drink = 0.6 oz pur e alcohol) Comments Unknown Sex and Gender Information Value Date Recorded Sex Assigned at Not on file Legal Sex Female 7:54 PM MEDICAL OFFICE ASSISTANT Gender Identity Not on file Sexual Orientation Not on file documented as of this encounter Plan of Treatment Not on file documented as of this encounter Procedures Procedure Name Priority Date/Time Associated Diagnosis Comments REFLEX VEDOLIZUMAB AB Routine 03/26/2019 1:33 PM MEDICAL OFFICE ASSISTANT VEDOLIZUMAB WITH REFLEX TO AB Routine 03/26/2019 1:33 PM MEDICAL OFFICE ASSISTANT Crohn's disease of small intestine with other complication (CMS/HCC) documented in this encounter Results * Reflex Vedolizumab Ab (03/26/2019 1:33 PM MEDICAL OFFICE ASSISTANT) Vedolizumab Ab <9.8 <9.8 ng/mL [facility] Vedolizumab interp See Footnote [facility] Comment: RESULT: Absence of detectable [id number]. ADDITIONAL INFORMATION This test was developed and its performance characteristics determined by [facility] in a manner consistent with CLIA requirements. This test has not been cleared or approved by the U.S. Food and Drug Administration. Test Performed by: [facility] [address] [place] [address] Glass Cutter Helper: Shaun Benitez M.D. Ph.D.; CLIA# [id number] Blood specimen (specimen) 03/26/2019 1:33 PM MEDICAL OFFICE ASSISTANT 03/26/2019 1:45 PM MEDICAL OFFICE ASSISTANT Trent Severino MD LAB BLOOD ORDERABLES Final Re sult [facility] [address] [facility] Department [place] [address] * (ABNORMAL) Vedolizumab with Reflex to Ab (03/26/2019 1:33 PM MEDICAL OFFICE ASSISTANT) Vedolizumab Qn 13.8(L) mcg/mL [facility] Comment: For concentrations of vedolizumab less than or equal to 15.0 mcg/mL, reflex testing for [id number] will be performed. REFERENCE VALUE Lower limit of quantitation = 2.0 mcg/mL ADDITIONAL INFORMATION This test was developed and its performance characteristics determined by [facility] in a manner consistent with CLIA requirements. This test has not been cleared or approved by the U.S. Food and Drug Administration. Test Performed by: [facility] [address] [place] [address] Glass Cutter Helper: Shaun Benitez M.D. Ph.D.; CLIA# [id number] Blood specimen (specimen) 03/26/2019 1:33 PM MEDICAL OFFICE ASSISTANT 03/26/2019 1:45 PM MEDICAL OFFICE ASSISTANT us Trent Severino MD LAB BLOOD ORDERABLES Final [facility] [address] [facility] [address] [place] [address] documented in this encounter Visit Diagnoses Diagnosis Crohn's disease of small intestine with other complication (HCC) documented in this encounter Care Teams Radiology Specialist Relationship Specialty Start Date End Date Judy Fishman NP [address] [address] PCP - General 07/31/18 documented as of this encounter
--- OUTSIDE RECORDS SUMMARY | 2024-04-11 06:18 | XMS_ITS | Encounter Summary ---
Author Organization [facility] Address [address] [place] [address] Phone Care Team Providers Care Steel Rule Inspector Name Role Phone Judy Fishman CONCRETE TESTER Primary Care Provider + Encounter Details Date Type Department Care Team (Late st Contact Info) Description 12/01/2018 Orders Only [facility] Gastroenterology [address] [place] [address] [place] [address] OrmeSamia, TAY Social History Tobacco Use Types Packs/Day Years Used Date Smoking Tobacco: Every Day Cigarettes Smokeless Tobacco: Never Alcohol Use Standard Drinks/Week Comments Yes 2 (1 standard drink = 0.6 oz pur e alcohol) Comments Unknown Sex and Gender Information Value Date Recorded Sex Assigned at Not on file Legal Sex Female 7:54 PM ACCOUNT AUDITOR Gender Identity Not on file Sexual Orientation Not on file documented as of this encounter Plan of Treatment Not on file documented as of this encounter Visit Diagnoses Not on filedocumented in this encounter Historical Medications * This list may reflect changes made after this encounter. ondansetron ODT (ZOFRAN-ODT) 4 mg disintegrating tablet Take 4 mg by mouth every 6 hours as needed 0 added in this encounter Care Teams Steel Rule Inspector Relationship Specialty Start Date End Date Judy Fishman NP [address] [place], [place] [address] PCP - General 07/31/18 documented as of this encounter
--- OUTSIDE RECORDS SUMMARY | 2024-04-11 06:18 | XMS_ITS | Encounter Summary ---
Author Organization [facility] Address [address] [place] [address] Care Team Providers Care Occupational Safety Specialist Name Role Phone Judy Fishman TIE CUTTER Primary Care Provider + Encounter Details Date Type Department Care Team (Late st Contact Info) Description 01/29/2019 3:50 PM CDT Lab [address] [address] Crohn's disease of small intestine with other complication (CMS/HCC) Social History Tobacco Use Types Packs/Day Years Used Date Smoking Tobacco: Every Day Cigarettes Smokeless Tobacco: Never Alcohol Use Standard Drinks/Week Comments Yes 2 (1 standard drink = 0.6 oz pur e alcohol) Comments Unknown Sex and Gender Information Value Date Recorded Sex Assigned at Not on file Legal Sex Female 7:54 PM HEALTH CARE RECRUITER Gender Identity Not on file Sexual Orientation Not on file documented as of this encounter Plan of Treatment Not on file documented as of this encounter Procedures Procedure Name Priority Date/Time Associated Diagnosis Comments DIFFERENTIAL AUTO Routine 01/29/2019 1:3 8 PM CDT Crohn's disease of small intestine with other complication (CMS/HCC) CBC WITH AUTO DIFFERENTIAL Routine 01/29/2019 1:38 PM CDT Crohn's disease of small intestine with other complication (CMS/HCC) CRP (ACUTE PHASE) Routine 01/29/2019 1:3 8 PM CDT Crohn's disease of small intestine with other complication (CMS/HCC) COMPREHENSIVE METABOLIC PANEL Routine 01/29/2019 1:38 PM CDT Crohn's disease of small intestine with other complication (CMS/HCC) documented in this encounter Results * (ABNORMAL) Differential, auto (01/29/2019 1:38 PM CDT) Neutrophil abs 8.7(H) 1.7 - 6.5 K/cumm [facility] Imm gran abs 0.0 0.0 - 0.1 K/cumm [facility] Lymphocyte abs 3.2 0.8 - 3.3 K/cumm [facility] Monocyte abs 0.6 0.2 - 0.8 K/cumm [facility] Eosinophil abs 0.5 0.0 - 0.5 K/cumm [facility] Basophil abs 0.0 0.0 - 0.1 K/cumm [facility] Neutrophil pct 66.5 % [facility] Comment: Interpretive Data Percent cell count reference ranges are not reported, since discordance with absolute values may lead to misinterpretation of CBC data. Current Interpretive Data was last revised on 2017. Imm gran pct 0.3 % [facility] Comment: Interpretive Data Percent cell count reference ranges are not reported, since discordance with absolute values may lead to misinterpretation of CBC data. Current Interpretive Data was last revised on 2017. Lymphocyte pct 24.5 % [facility] Comment: Interpretive Data Percent cell count reference ranges are not reported, since discordance with absolute values may lead to misinterpretation of CBC data. Current Interpretive Data was last revised on 2017. Monocyte pct 4.7 % [facility] Comment: Interpretive Data Percent cell count reference ranges are not reported, since discordance with absolute values may lead to misinterpretation of CBC data. Current Interpretive Data was last revised on 2017. Eosinophil pct 3.7 % [facility] Comment: Interpretive Data Percent cell count reference ranges are not reported, since discordance with absolute values may lead to misinterpretation of CBC data. Current Interpretive Data was last revised on 2017. Basophil pct 0.3 % [facility] Comment: Interpretive Data Percent cell count reference ranges are not reported, since discordance with absolute values may lead to misinterpretation of CBC data. Current Interpretive Data was last revised on 2017. Blood specimen (specimen) 01/29/2019 1:38 PM CDT 01/29/2019 3:40 PM CDT Trent Severino MD LAB BLOOD ORDERABLES Final Re sult Performing Organization Address [facility] Co de Phone Number [facility] [address] * (ABNORMAL) CBC with auto differential (01/29/2019 1:38 PM CDT) WBC 13.1(H) 3.8 - 9.9 K/cumm [facility] Hgb 11.5(L) 11.9 - 15.5 g/dL [facility] Hct 35.1(L) 35.6 - 45.5 % [facility] Plt 336 150 - 400 K/cumm [facility] MPV 10.5 9.1 - 12.3 fL [facility] RBC 4.12 3.90 - 5.20 M/cumm [facility] MCV 85.2 81.3 - 96.4 fL [facility] MCH 27.9 27.1 - 33.3 pg [facility] MCHC 32.8 32.3 - 35.7 g/dL [facility] RDW CV 13.9 11.1 - 14.9 % [facility] RDW SD 43.2 35.7 - 48.1 fL [facility] NRBC abs 0.00 0.00 - 0.01 K/cumm [facility] Blood specimen (specimen) 01/29/2019 1:38 PM CDT 01/29/2019 3:40 PM CDT Trent Severino MD LAB BLOOD ORDERABLES Final Re sult Performing Organization Address [facility]/ZIP Co de Phone Number [facility] [address] [place] [address] * (ABNORMAL) Comprehensive metabolic panel (01/29/2019 1:38 PM CDT) Pathologist [facility] Sodium 139 135 - 145 mmol/L [facility] Potassium, pl 3.8 3.3 - 4.9 mmol/L [facility] Chloride 103 97 - 110 mmol/L [facility] CO2 25 22 - 32 mmol/L [facility] Anion gap 11 2 - 15 mmol/L [facility] BUN 10 8 - 25 mg/dL [facility] Creatinine 0.58(L) 0.60 - 1.10 mg/dL [facility] Glucose 70 70 - 199 mg/dL [facility] Comment: Interpretive Data Fasting glucose >/= [...] interpretive data was last revised 2017. Calcium 9.5 8.5 - 10.3 mg/dL [facility] Bilirubin, total 0.3 0.1 - 1.2 mg/dL [facility] Protein, pl 7.9 6.5 - 8.5 g/dL [facility] Albumin 4.2 3.5 - 5.0 g/dL [facility] Alk phos 67 40 - 130 Units/L [facility] ALT 17 7 - 45 Units/L [facility] AST 24 10 - 45 Units/L [facility] Blood specimen (specimen) (Blood, Venous) 01/29/2019 1:38 PM CDT 01/29/2019 3:40 PM CDT Trent Severino MD LAB BLOOD ORDERABLES Final Re sult [facility] [address] [place] [address] * (ABNORMAL) CRP (acute phase) (01/29/2019 1:38 PM CDT) CRP 31.6(H) <=10.0 mg/L [facility] Blood specimen (specimen) 01/29/2019 1:38 PM CDT 01/29/2019 3:40 PM CDT us Trent Severino MD LAB BLOOD ORDERABLES Final Re sult Performing Organization Address City/State/[facility] Co de Phone Number [facility] [address] [place] [address] documented in this encounter Visit Diagnoses Diagnosis Crohn's disease of small intestine with other complication (HCC) documented in this encounter Care Teams Occupational Safety Specialist Relationship Specialty Start Date End Date Judy Fishman NP [address] [address] PCP - General 07/31/18 documented as of this encounter
--- OUTSIDE RECORDS SUMMARY | 2024-04-11 06:18 | XMS_ITS | Encounter Summary ---
Author Organization [facility] Address [address] [place] [address] Phone Care Team Providers Care Firer Portable Boiler Name Role Phone Judy Fishman TRICHOLOGIST Primary Care Provider + Encounter Details Date Type Department Care Team (Late st Contact Info) Description 07/05/2019 Orders Only [facility] Gastroenterology [address] [facility] Advanced Medicine [address]th [place] [address] [place] [address] Trent Severino MD [address] [place] [address] Social History Tobacco Use Types Packs/Day Years Used Date Smoking Tobacco: Every Day Cigarettes Smokeless Tobacco: Never Alcohol Use Standard Drinks/Week Comments Yes 2 (1 standard drink = 0.6 oz pur e alcohol) Comments Unknown Sex and Gender Information Value Date Recorded Sex Assigned at Not on file Legal Sex Female 7:54 PM WREATH AND GARLAND MAKER HAND Gender Identity Not on file Sexual Orientation Not on file COVID-19 Exposure Response Date Recorded In the last month, have you been in contact with someone who was confirmed or suspected to have Coronavirus / COVID-19? No / Unsure 07/02/2019 12:40 PM CDT documented as of this encounter Progress Notes * Abiola Silverman RN - 07/05/2019 10:28 AM CDT entyvio trough added to be drawn before next infusion (2nd at q 6 week dosing) documented in this encounter Plan of Treatment Not on file documented as of this encounter Visit Diagnoses Not on filedocumented in this encounter Care Teams Firer Portable Boiler Relationship Specialty Start Date End Date Judy Fishman NP [address] [address] PCP - General 07/31/18 documented as of this encounter
--- OUTSIDE RECORDS SUMMARY | 2024-04-11 06:18 | XMS_ITS | Encounter Summary ---
Author Organization [facility] Address [address] [place] [address] Phone Care Team Providers Care Orthotics Prosthetics Assistant Name Role Phone Simone Fishmanelle Brittani CUSTOMER CARE ASSOCIATE Primary Care Provider + Encounter Details Date Type Department Care Team (Late st Contact Info) Description 06/29/2019 Telephone [facility] Gastroenterology [address] [place] [address] 8th [place] [address] [place] [address] Susan Chawla RMA Social History Tobacco Use Types Packs/Day Years Used Date Smoking Tobacco: Every Day Cigarettes Smokeless Tobacco: Never Alcohol Use Standard Drinks/Week Comments Yes 2 (1 standard drink = 0.6 oz pur e alcohol) Comments Unknown Sex and Gender Information Value Date Recorded Sex Assigned at Not on file Legal Sex Female 7:54 PM FIELD ARTILLERY BASIC Gender Identity Not on file Sexual Orientation Not on file documented as of this encounter Miscellaneous Notes * Telephone Encounter - Susan Chawla BS - 06/29/2019 8:54 AM CDT Pt. Called. 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 Faxed letter to [phone]. documented in this encounter Plan of Treatment Not on file documented as of this encounter Visit Diagnoses Not on filedocumented in this encounter Care Teams Orthotics Prosthetics Assistant Relationship Specialty Start Date End Date Judy Fishman, BINU [address] [id number] PCP - General 07/31/18 documented as of this encounter
--- OUTSIDE RECORDS SUMMARY | 2024-04-11 06:18 | XMS_ITS | Encounter Summary ---
Author Organization [facility] of [facility] Address [address] [place] [address] Phone Care Team Providers Care Assistant Professor Of Life Sciences Name Role Phone Judy Fishman STRATEGIC MARKETING MANAGER Primary Care Provider + Encounter Details Date Type Department Care Team (Late st Contact Info) Description 12/01/2018 3:45 PM CDT Office Visit [facility] 8th [place] [address] [place] [address] Trent Severino MD [address] [place], [place] [id number] Crohn's disease of small intestine with other complication (CMS/HCC) (Primary Dx); Iron deficiency anemia due to [...] file Legal Sex Female 7:54 PM TRANSPORTATION WORKER Gender Identity Not on file Sexual Orientation Not on file documented as of this encounter Last Filed Vital Signs Vital Sign Reading Time Taken Comments Blood Pressure 118/81 12/01/2018 2:58 PM CDT Pulse 101 12/01/2018 2:58 PM CDT Temperature 36.7 ??C (98 ??F) 12/01/2018 2:58 PM CDT Respiratory Rate - - Oxygen Saturation - - Inhaled Oxygen Concentration - - Weight 96.9 kg (213 lb 9.6 oz) 12/01/2018 2:58 P M CDT Height 157.5 cm (5' 2 ) 12/01/2018 2:58 PM CDT Body Mass Index 39.07 12/01/2018 2:58 PM CDT documented in this encounter Progress Notes * Trent Severino MD - 12/01/2018 3:45 PM CDT Reason for visit: newly diagnose crohns disease. Present with her mother. Problem List: Patient Active Problem List Diagnosis ??? Obesity ??? Chronic diarrhea ??? Iron deficiency anemia due to chronic blood loss ??? Crohn's disease of small intestine with other complication (CMS/HCC) HPI: Liliana Peralta is a 28 y.o. female who was [...] endorses that she is getting in February. She comes back today after MRE and review of slides as discussed at last visit. History reviewed. No pertinent past medical history. Family History Problem Relation Age of Onset [...] Sexual Activity ??? Alcohol use: Yes Alcohol/week: 1.2 oz Types: 2 Glasses of wine per week ??? Drug use: Never ??? Sexual activity: Yes Partners: Male Lifestyle ??? Physical activity: Days per week: Not on file Minutes per session: Not on file ??? Stress: Not on file Relationships ??? Social connections: Talks on phone: Not on file Gets together: Not on file Attends jainism service: Not on file Active member of [...] once a week 12 capsule 3 ??? CHAVEZ 3-0.03 mg per tablet ??? [...] form was reviewed with the patient on 12/01/2018. Review of Systems: No significant ROS Physical Exam: BP 118/81 Pulse 101 Temp 36.7 ??C (98 ??F) Ht 157.5 cm (5' 2 ) Wt 96.9 kg (213 lb 9.6 oz) BMI 39.07 kg/m?? GENERAL: Well developed well nourished, in no acute distress. HEENT: Normocephalic atraumatic. Sclerae anicteric. NECK: Supple without lymphadenopathy or thyromegaly. LUNGS: Clear to auscultation bilaterally. No wheezes, rales, rhonchi. CARDIOVASCULAR: Regular rate and rhythm without murmurs. ABDOMEN: Soft, nondistended, nontender. Normoactive bowel sounds. No hepatosplenomegaly. EXTREMITIES: Noclubbing, cyanosis, edema. SKIN: No rashes or jaundice. Labs: Lab Results Component Value Date WBC 14.1 (H) 12/17/2018 HGB 11.8 (L) 12/17/2018 HCT 35.8 (L) 12/17/2018 MCV 83.0 12/17/2018 LABPLAT 340 10/27/2018 Lab Results Component Value Date GLUCOSE 98 12/17/2018 CALCIUM 9.4 12/17/2018 SODIUM 140 10/27/2018 POTASSIUM 4.4 10/27/2018 CO2 22 12/17/2018 CHLORIDE 106 10/27/2018 BUNSER 10 10/27/2018 CREATININE 0.55 (L) 12/17/2018 Lab Results Component Value Date ALT 15 12/17/2018 AST 13 12/17/2018 ALKPHOS 77 12/17/2018 BILITOT 0.17 (L) 12/17/2018 Lab Results Component Value Date IRON 82 10/27/2018 TIBC 459 (H) 10/27/2018 FERRITIN 58 10/27/2018 No results found for: OCCULTBLD No results found for: AMYLASE Lab Results Component Value Date LIPASE 39 05/12/2017 Lab Results Component Value Date HEPBCAB Nonreactive 10/27/2018 No results found for: AFP . Visit Diagnoses: 1. Crohn's disease of small intestine with other complication (CMS/HCC) Assessment/Plan: 28 year old female with chronic diarrhea with negative stool studies. Her colonoscopy showed mild chronic inflammation at the terminal ileum. She responded well to a tapered course of Entecort. MRE enterography shows extremely mild wall thickening and mucosal enhancement of the distal 2 cm of terminal ileum. CRP was elevated at 16.2. 1.New onset Ileal crohn's. - We have discussed with her that crohn's disease is the diagnosis, - She was teary as she is getting soon And was concerned about how is this going to affect her fertility and lifestyle. We have explained that IBD should not prevent her from getting as long as her IBD is under control and she is not taking one the contraindicated medications (E.g MTX) during - We have also spoke to her about possible treatment options and decided that Entyvio would be the one with the least side-effects. 2. Health maintenance : - Prevnar followed 8-12 weeks later by Pneumovax to be discussed at next visit. - Flu shot at next visit. - Does not need a DEXA scan. - Annual pap smears are recommended. documented in this encounter Plan of Treatment Not on file documented as of this encounter Visit Diagnoses Diagnosis Crohn's disease of small intestine with other complication (HCC)- Primary Iron deficiency anemia due to chronic blood loss Iron deficiency anemia secondary to blood loss (chronic) documented in this encounter Care Teams Assistant Professor Of Life Sciences Relationship Specialty Start Date End Date Judy Fishman NP [address] [address] PCP - General 07/31/18 documented as of this encounter
--- OUTSIDE RECORDS SUMMARY | 2024-04-11 06:18 | XMS_ITS | Encounter Summary ---
Author Organization [facility] Address [address] [facility] [address] [place] [address] Phone Care Team Providers Care Telesales Agent Name Role Phone [place] Judy Brittani PRACTICE SPECIALIST Primary Care Provider + Encounter Details Date Type Department Care Team (Late st Contact Info) Description 05/20/2019 Telephone [facility] Gastroenterology [address] [place] [address] 8th [place] [address] [place] [phone] Min German LPN Social History Tobacco Use Types Packs/Day Years Used Date Smoking Tobacco: Every Day Cigarettes Smokeless Tobacco: Never Alcohol Use Standard Drinks/Week Comments Yes 2 (1 standard drink = 0.6 oz pur e alcohol) Comments Unknown Sex and Gender Information Value Date Recorded Sex Assigned at Not on file Legal Sex Female 7:54 PM MANAGER TRAINING Gender Identity Not on file Sexual Orientation Not on file documented as of this encounter Miscellaneous Notes * Telephone Encounter - Min German LPN - 05/20/2019 9:45 AM CST Contacted pt to inform her that she has been approved for her infusions at [facility] tomorrow and she may attend her appointment as scheduled per our PreCert department. GER TRAINING GER TRAINING documented in this encounter Plan of Treatment Not on file documented as of this encounter Visit Diagnoses Not on filedocumented in this encounter Care Teams Telesales Agent Relationship Specialty Start Date End Date Judy Fishman, BINU [address] [address] PCP - General 07/31/18 documented as of this encounter
--- OUTSIDE RECORDS SUMMARY | 2024-04-11 06:18 | XMS_ITS | Encounter Summary ---
Author Organization [facility] Address [address] [place] [address] Phone Care Team Providers Care Mushroom Spawn Maker Name Role Phone Judy Fishman RESIDENTIAL MORTGAGE UNDERWRITER Primary Care Provider + Encounter Details Date Type Department Care Team (Late st Contact Info) Description 04/28/2019 Orders Only [facility] Gastroenterology [address] [facility] 8th [place] [address] [place] [address] Trent Severino MD [address] [place] [address] Social History Tobacco Use Types Packs/Day Years Used Date Smoking Tobacco: Every Day Cigarettes Smokeless Tobacco: Never Alcohol Use Standard Drinks/Week Comments Yes 2 (1 standard drink = 0.6 oz pur e alcohol) Comments Unknown Sex and Gender Information Value Date Recorded Sex Assigned at Not on file Legal Sex Female 7:54 PM TOOL DESIGNER Gender Identity Not on file Sexual Orientation Not on file documented as of this encounter Progress Notes * Abiola Silverman RN - 04/28/2019 11:46 AM CST entyvio therapy plan updated to q 6 week infusions d/t low trough level. Therapy plan sent to precert DESIGNER documented in this encounter Plan of Treatment Not on file documented as of this encounter Visit Diagnoses Not on filedocumented in this encounter Care Teams Mushroom Spawn Maker Relationship Specialty Start Date End Date Judy Fishman, BINU [address] [address] PCP - General 07/31/18 documented as of this encounter
--- OUTSIDE RECORDS SUMMARY | 2024-04-11 06:18 | XMS_ITS | Encounter Summary ---
Author Organization [facility] Address [address] [place] [address] Phone Care Team Providers Care Radio Electronics Technician Name Role Phone Judy Fishman ENVIRONMENT COORDINATOR Primary Care Provider + Encounter Details Date Type Department Care Team (Late st Contact Info) Description 12/09/2018 Telephone [facility] Gastroenterology [address] [facility] 8th [place] [address] [place] [address] Min German LPN Social History Tobacco Use Types Packs/Day Years Used Date Smoking Tobacco: Every Day Cigarettes Smokeless Tobacco: Never Alcohol Use Standard Drinks/Week Comments Yes 2 (1 standard drink = 0.6 oz pur e alcohol) Comments Unknown Sex and Gender Information Value Date Recorded Sex Assigned at Not on file Legal Sex Female 7:54 PM QUIRK SANDER Gender Identity Not on file Sexual Orientation Not on file documented as of this encounter Miscellaneous Notes * Telephone Encounter - Min Greman LPN - 12/09/2018 10:29 AM CDT Left VM on phone explaining to pt that her Entyvio infusions have been approved for the [facility] 5th floor and provided her with the number to call and schedule them at this time. documented in this encounter Plan of Treatment Not on file documented as of this encounter Visit Diagnoses Not on filedocumented in this encounter Care Teams Radio Electronics Technician Relationship Specialty Start Date End Date Judy Fishman NP [address] [address] PCP - General 07/31/18 documented as of this encounter
--- OUTSIDE RECORDS SUMMARY | 2024-04-11 06:18 | XMS_ITS | Encounter Summary ---
Author Organization [facility] Address [address] [place] [address] Care Team Providers Care Farm Planner Name Role Phone Judy Fishman INFUSION RN Primary Care Provider + Reason for Visit * Diagnostic Imaging (Routine) - Closed Specialty Diagnoses / Procedures Referred By Contac t Referred To Contact Radiology Diagnoses Crohn's disease of small intestine with other complication (HCC) Procedures MRI Abdomen Enterography WO Contrast MRI Enterography (abdomen) W WO Contrast Trent Severino MD [address] [place] [address] Phone: tel: fax: [facility] [address] [place] [address] Referral ID Status Reason Start Date Expiration Date Visits Re quested Visits Authorized [id number] Closed 03/02/2019 04/16/2019 1 1 Encounter Details Date Type Department Care Team (Latest Contact Info) Description 03/26/2019 1:37 PM FRONT DESK AGENT - 03/26/2019 11:59 PM FRONT DESK AGENT Hospital Encounter [facility] [place], [place] [id number] Trent Severino MD [address] [place], [place] [id number] Crohn's disease of small intestine with other [...] on file Legal Sex Female 7:54 PM FRONT DESK AGENT Gender Identity Not on file Sexual Orientation Not on file documented as of this encounter Medications at Time of Discharge budesonide EC (ENTOCORT EC) 3 mg 24 hr capsule 0 08/31/2018 0 cholecalciferol (VITAMIN D-3) 50,000 unit capsuleIndications:V itamin D Deficiency Take 1 capsule (50,000 Units total) by mouth once a week 12 capsule 3 11/13/2018 0 cholestyramine (QUESTRAN) 4 gram packet MIX AND TK CNTS PO QD UTD 0 07/20/2018 0 metroNIDAZOLE (FLAGYL) 250 mg tablet TK 1 T QID 0 08/03/2018 0 ondansetron ODT (ZOFRAN-ODT) 4 mg disintegrating tablet Take 4 mg by mouth every 6 hours as needed 0 no122/iron/folic acid ( MULTI ORAL) Take by mouth daily 2 CHAVEZ 3-0.03 mg per tablet 08/06/2018 0 documented as of this encounter Discharge Disposition Disposition Code Departure Means Destination Discharge to home or self care documented in this encounter Plan of Treatment Not on file documented as of this encounter Procedures Procedure Name Priority Date/Time Associated Diagnosis Comments MRI ABDOMEN ENTEROGRAPHY WO CONTRAST Schedule Routine, Read Routine (OP Routine) 03/26/2019 4:10 PM FRONT DESK AGENT Crohn's disease of small intestine with other complication (CMS/HCC) POCT HCG, URINE Routine 03/26/2019 2:25 PM FRONT DESK AGENT documented in this encounter Results * MRI Abdomen Enterography WO Contrast (03/26/2019 4:10 PM FRONT DESK AGENT) Anatomical Region Laterality Modality Body N/A Magnetic Resonan ce 03/27/2019 10:4 7 AM FRONT DESK AGENT Impressions 03/28/2019 9:11 AM FRONT DESK AGENT Interval improvement of distal terminal ileum wall thickening. ??No new areas of small bowel wall thickening. ?No fluid collections or evidence of penetrating disease. Dictated by: Stewart Dias The radiology attending physician has personally reviewed this study, and had reviewed and/or edited this written report and agrees with it. Electronically signed by: Roby Zuniga M.D. Narrative 03/28/2019 9:11 AM FRONT DESK AGENT EXAMINATION: MAGNETIC RESONANCE IMAGING OF THE ABDOMEN WITH AND WITHOUT CONTRAST HISTORY: 28-year-old woman with concern for ileal Crohn's disease. Patient previously treated with a tapered course of Entecort after colonoscopy showed mild inflammation of the terminal ileum.. TECHNIQUE: Magnetic resonance imaging of the abdomen was performed prior to and following the uneventful administration of intravenous Gadolinium contrast. Oral Volumen and 1 mg of intravenous glucagon was administered prior to the examination. Protocol: MR Enterography Contrast: Dotarem 19.7 mL COMPARISON: 11/18/2018 FINDINGS: Bowel: There is been interval improvement of bowel wall thickening of the terminal ileum. ??The proximal small bowel is normal. ??There are no new sites of wall thickening. ??There is no bowel hyperemia. ??There is no fluid collection. ??No evidence of penetrating disease. Liver/Bile Ducts: There is a normal variant of the liver where the left hemiliver draped within the left upper quadrant. ??There is a 5 mm hemangioma within segment 7/8 unchanged Gallbladder: Normal Pancreas: Normal Spleen: Normal Adrenals: Normal Kidneys: Normal Bladder: Normal Reproductive organs: There are physiological follicles within the ovaries. ??The uterus is normal. Other Findings: There are no osseous lesions. ??There is no pleural effusions. ??There is no lymphadenopathy. Procedure Note Roby Zuniga MD - 03/28/2019 EXAMINATION: MAGNETIC RESONANCE IMAGING OF THE ABDOMEN WITH AND WITHOUT CONTRAST HISTORY: 28-year-old woman with concern for ileal Crohn's disease. Patient previously treated with a tapered course of Entecort after colonoscopy showed mild inflammation of the terminal ileum.. TECHNIQUE: Magnetic resonance imaging of the abdomen was performed prior to and following the uneventful administration of intravenous Gadolinium contrast. Oral Volumen and 1 mg of intravenous glucagon was administered prior to the examination. Protocol: MR Enterography Contrast: Dotarem 19.7 mL COMPARISON: 11/18/2018 FINDINGS: Bowel: There is been interval improvement of bowel wall thickening of the terminal ileum. The proximal small bowel is normal. There are no new sites of wall thickening. There is no bowel hyperemia. There is no fluid collection. No evidence of penetrating disease. Liver/Bile Ducts: There is a normal variant of the liver where the left hemiliver draped within the left upper quadrant. There is a 5 mm hemangioma within segment 7/8 unchanged Gallbladder: Normal Pancreas: Normal Spleen: Normal Adrenals: Normal Kidneys: Normal Bladder: Normal Reproductive organs: There are physiological follicles within the ovaries. The uterus is normal. Other Findings: There are no osseous lesions. There is no pleural effusions. There is no lymphadenopathy. IMPRESSION: Interval improvement of distal terminal ileum wall thickening. No new areas of small bowel wall thickening. No fluid collections or evidence of penetrating disease. Dictated by: Stewart Dias The radiology attending physician has personally reviewed this study, and had reviewed and/or edited this written report and agrees with it. Electronically signed by: Roby Zuniga M.D. Trent Severino MD IMG MRI PROCEDURES Final Resu lt * POCT hCG, urine (03/26/2019 2:25 PM FRONT DESK AGENT) HCG, ur, POC Negative Lot Number [id number] QC Backgroud Clear Acceptable QC Control Line Acceptable Urine 03/26/2019 2:25 PM FRONT DESK AGENT Trent Severino MD POINT OF CARE TEST ORDERABLES Final Result documented in this encounter Visit Diagnoses Diagnosis Crohn's disease of small intestine with other complication (HCC) documented in this encounter Administered Medications Inactive Administered Medications - up to 3 most recent administrations Medication Order MAR Action Action Date Dose Rate Site glucagon injection 1 mg 1 mg, intravenous, Administer over 1 Minutes, Once in imaging, low blood sugar, Starting on Fri03/26/19 at 1437, For 1 dose, Imaging Protocol Orders Given 03/26/2019 3:19 PM FRONT DESK AGENT 1 mg documented in this encounter Orders Medications Ordered That Jonathan ht Not Have Been Administered Count Last Ordered Date First Ordered Date glucagon injection 1 mg 1 03/26/2019 documented in this encounter Care Teams Farm Planner Relationship Specialty Start Date End Date Judy Fishman, BINU [address] [address] PCP - General 07/31/18 documented as of this encounter
--- OUTSIDE RECORDS SUMMARY | 2024-04-11 06:18 | XMS_ITS | Encounter Summary ---
Author Organization [facility] Address [address] [place] [address] Phone Care Team Providers Care Wool Presser Name Role Phone [place] Judy Brittani [employer] Primary Care Provider + Encounter Details Date Type Department Care Team (Late st Contact Info) Description 06/04/2019 Telephone [facility] Gastroenterology [address] [place] [address] 8th [place] [address] [place] [phone] Min German LPN Social History Tobacco Use Types Packs/Day Years Used Date Smoking Tobacco: Every Day Cigarettes Smokeless Tobacco: Never Alcohol Use Standard Drinks/Week Comments Yes 2 (1 standard drink = 0.6 oz pur e alcohol) Comments Unknown Sex and Gender Information Value Date Recorded Sex Assigned at Not on file Legal Sex Female 7:54 PM OPERATING TABLE ASSEMBLER Gender Identity Not on file Sexual Orientation Not on file documented as of this encounter Miscellaneous Notes * Telephone Encounter - Min German LPN - 06/04/2019 1:22 PM CST Spoke to pt at this time. Explained that due to her recent drug level Dr. Severino would like to increase her to Entyvio every 6 weeks and that we have approval from her insurance as well. Instructed her to call the infusion center to move her next infusion up by two weeks. She expressed understanding and agreed to plan. ATING TABLE ASSEMBLER documented in this encounter Plan of Treatment Not on file documented as of this encounter Visit Diagnoses Not on filedocumented in this encounter Care Teams Wool Presser Relationship Specialty Start Date End Date Judy Fishman NP [address] [address] PCP - General 07/31/18 documented as of this encounter
--- OUTSIDE RECORDS SUMMARY | 2024-04-11 06:18 | XMS_ITS | Encounter Summary ---
Author Organization [facility] Facility Care Team Providers Care Poultry Hatchery Man Name Role Phone Judy Fishman LAND DEGRADATION ANALYST Primary Care Provider + Encounter Details Date Type Department Care Team (Latest Contact Info) Description 06/15/2019 Travel Social History Tobacco Use Types Packs/Day Years Used Date Smoking Tobacco: Every Day Cigarettes Smokeless Tobacco: Never Alcohol Use Standard Drinks/Week Comments Yes 2 (1 standard drink = 0.6 oz pur e alcohol) Comments Unknown Sex and Gender Information Value Date Recorded Sex Assigned at Not on file Legal Sex Female 7:54 PM DATA REPORTING ANALYST Gender Identity Not on file Sexual Orientation Not on file documented as of this encounter Plan of Treatment Not on file documented as of this encounter Visit Diagnoses Not on filedocumented in this encounter Care Teams Poultry Hatchery Man Relationship Specialty Start Date End Date Judy Fishman NP [address] [address] PCP - General 07/31/18 documented as of this encounter
--- OUTSIDE RECORDS SUMMARY | 2024-04-11 06:18 | XMS_ITS | Encounter Summary ---
Author Organization [facility] Healthcare Address [address] [place] [address] Care Team Providers Care Art Director Name Role Phone Judy Fishman RECORDS ADMINISTRATOR Primary Care Provider + Encounter Details Date Type Department Care Team (Late st Contact Info) Description 05/21/2019 Documentation Gastroententerology Tia Walden BS Social History Tobacco Use Types Packs/Day Years Used Date Smoking Tobacco: Every Day Cigarettes Smokeless Tobacco: Never Alcohol Use Standard Drinks/Week Comments Yes 2 (1 standard drink = 0.6 oz pur e alcohol) Comments Unknown Sex and Gender Information Value Date Recorded Sex Assigned at Not on file Legal Sex Female 7:54 PM FACILITIES CLERK Gender Identity Not on file Sexual Orientation Not on file documented as of this encounter Miscellaneous Notes * Research Note - Tia Walden BS - 05/21/2019 1:28 PM CST Follow up post 3+ months medication start. LITIES CLERK documented in this encounter Plan of Treatment Not on file documented as of this encounter Visit Diagnoses Not on filedocumented in this encounter Care Teams Art Director Relationship Specialty Start Date End Date Judy Fishman NP [address] [address] PCP - General 07/31/18 documented as of this encounter
--- OUTSIDE RECORDS SUMMARY | 2024-04-11 06:18 | XMS_ITS | Encounter Summary ---
Author Organization [facility] Facility Care Team Providers Care Mica Inspector Name Role Phone Judy Fishman GLASS PRODUCTION MACHINE OPERATOR Primary Care Provider + Encounter Details Date Type Department Care Team (Latest Contact Info) Description 05/21/2019 Travel Social History Tobacco Use Types Packs/Day Years Used Date Smoking Tobacco: Every Day Cigarettes Smokeless Tobacco: Never Alcohol Use Standard Drinks/Week Comments Yes 2 (1 standard drink = 0.6 oz pur e alcohol) Comments Unknown Sex and Gender Information Value Date Recorded Sex Assigned at Not on file Legal Sex Female 7:54 PM PIPE LINE INSPECTOR Gender Identity Not on file Sexual Orientation Not on file documented as of this encounter Plan of Treatment Not on file documented as of this encounter Visit Diagnoses Not on filedocumented in this encounter Care Teams Mica Inspector Relationship Specialty Start Date End Date Judy Fishman NP [address] [address] PCP - General 07/31/18 documented as of this encounter
--- OUTSIDE RECORDS SUMMARY | 2024-04-11 06:18 | XMS_ITS | Encounter Summary ---
Author Organization [facility] Address [address] [place] [address] Phone Care Team Providers Care Professor Of Historical Theology Name Role Phone Judy Fishman WAREHOUSE ADMINISTRATOR Primary Care Provider + Encounter Details Date Type Department Care Team (Late st Contact Info) Description 03/23/2019 Orders Only [facility] Gastroenterology [address] [facility] Advanced Medicine 8th [place] [address] [place] [address] Trent Severino MD [address] [place] [address] Social History Tobacco Use Types Packs/Day Years Used Date Smoking Tobacco: Every Day Cigarettes Smokeless Tobacco: Never Alcohol Use Standard Drinks/Week Comments Yes 2 (1 standard drink = 0.6 oz pur e alcohol) Comments Unknown Sex and Gender Information Value Date Recorded Sex Assigned at Not on file Legal Sex Female 7:54 PM UNIT CONTROL CLERK Gender Identity Not on file Sexual Orientation Not on file documented as of this encounter Progress Notes * Abiola Silverman RN - 03/23/2019 8:49 AM CST Added Entyvio level to infusion plan CONTROL CLERK documented in this encounter Plan of Treatment Not on file documented as of this encounter Visit Diagnoses Not on filedocumented in this encounter Care Teams Professor Of Historical Theology Relationship Specialty Start Date End Date Judy Fishman NP [address] [address] PCP - General 07/31/18 documented as of this encounter
--- OUTSIDE RECORDS SUMMARY | 2024-04-11 06:18 | XMS_ITS | Encounter Summary ---
Author Organization [facility] Healthcare Address [address] [place] [address] Care Team Providers Care Membership Counselor Name Role Phone Kye Judy Brittani FARM MECHANIC APPRENTICE Primary Care Provider + Encounter Details Date Type Department Care Team (Late st Contact Info) Description 07/02/2019 3:45 PM CDT Lab [address] [address] PCOS (polycystic ovarian syndrome); Irregular periods Social History Tobacco Use Types Packs/Day Years Used Date Smoking Tobacco: Every Day Cigarettes Smokeless Tobacco: Never Alcohol Use Standard Drinks/Week Comments Yes 2 (1 standard drink = 0.6 oz pur e alcohol) Comments Unknown Sex and Gender Information Value Date Recorded Sex Assigned at Not on file Legal Sex Female 7:54 PM 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 No / Unsure 07/02/2019 12:40 PM CDT documented as of this encounter Plan of Treatment Not on file documented as of this encounter Procedures Procedure Name Priority Date/Time Associated Diagnosis Comments THYROID FUNCTION CASCADE Routine 07/02/2019 12:55 PM CDT PCOS (polycystic ovarian syndrome) VITAMIN D 25 HYDROXY Routine 07/02/2019 12:55 PM CDT PCOS (polycystic ovarian syndrome) PROLACTIN Routine 07/02/2019 12:55 PM CDT Irregular periods HCG, BLOOD, QUANTITATIVE Routine 07/02/2019 12:55 PM CDT documented in this encounter Results * hCG, blood, quantitative (07/02/2019 12:55 PM CDT) hCG, quant <5.0 0.0 - 5.0 IUnits/L [facility] Comment: Interpretive Data Male: <5.0 IUnits/L Non- Female: <5.0 IUnits/L Weeks Post LMP ?Reference Interval ?1-10 ?202-231,000 IUnits/L ?? 11-15 ? 22,536-234,990 IUnits/L ?? 16-22 ?8,007- 50,064 IUnits/L ?? 23-40 ?1,600- 49,413 IUnits/L All results should be interpreted in context of clinical presentations as rare causes of falsely positive and falsely negative results are known to exist. Current interpretive data last revised on 2017. Blood specimen (specimen) 07/02/2019 12:55 PM CDT 07/02/2019 4:07 PM CDT Belem De La Torre MD LAB BLOOD ORDERABLES Final Resul t Performing Organization Address City/State/[facility] Co de Phone Number [facility] [place] [address] * (ABNORMAL) Prolactin (07/02/2019 12:55 PM CDT) Prolactin 4.5(L) 5.2 - 26.5 ng/mL [facility] Blood specimen (specimen) 07/02/2019 12:55 PM CDT 07/02/2019 3:43 PM CDT Belem De La Torre MD LAB BLOOD ORDERABLES Final Resul t Performing Organization Address City/[facility] [place] [address] * TSH reflex to free T4 (07/02/2019 12:55 PM CDT) TSH 0.75 0.30 - 4.20 mcIUnit/mL [facility] Blood specimen (specimen) 07/02/2019 12:55 PM CDT 07/02/2019 3:43 PM CDT Belem De La Torre MD LAB BLOOD ORDERABLES Final Resul t Performing Organization Address [facility] de Phone Number [facility] [place] [address] * (ABNORMAL) Vitamin D 25 hydroxy (07/02/2019 12:55 PM CDT) Vitamin D 25-OH 19(L) 30 - 80 ng/mL [facility] Blood specimen (specimen) 07/02/2019 12:55 PM CDT 07/02/2019 3:43 PM CDT Belem De La Torre MD LAB BLOOD ORDERABLES Final Resul t Performing Organization Address [facility] [place] [address] documented in this encounter Visit Diagnoses Diagnosis PCOS (polycystic ovarian syndrome) Polycystic ovaries Irregular periods documented in this encounter Orders Lab Orders Without Results Count Last Ordered D ate First Ordered Date HCG, BLOOD, QUALITATIVE 1 07/02/2019 documented in this encounter Care Teams Membership Counselor Relationship Specialty Start Date End Date Judy Fishman NP [address] [address] PCP - General 07/31/18 documented as of this encounter
--- OUTSIDE RECORDS SUMMARY | 2024-04-11 06:18 | XMS_ITS | Encounter Summary ---
Author Organization [facility] Healthcare Address [address] [place] [address] Care Team Providers Care Vp Clinical Research Name Role Phone Judy Fishman BALLPOINT PEN CARTRIDGE TESTER Primary Care Provider + Encounter Details Date Type Department Care Team (Late st Contact Info) Description 01/01/2019 Documentation Gastroententerology Tia Walden BS Social History Tobacco Use Types Packs/Day Years Used Date Smoking Tobacco: Every Day Cigarettes Smokeless Tobacco: Never Alcohol Use Standard Drinks/Week Comments Yes 2 (1 standard drink = 0.6 oz pur e alcohol) Comments Unknown Sex and Gender Information Value Date Recorded Sex Assigned at Not on file Legal Sex Female 7:54 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 DEFENCE OFFICER documented in this encounter Plan of Treatment Not on file documented as of this encounter Visit Diagnoses Not on filedocumented in this encounter Care Teams Vp Clinical Research Relationship Specialty Start Date End Date Judy Fishman NP [address] [facility] [address] [place] [address] PCP - General 07/31/18 documented as of this encounter
--- OUTSIDE RECORDS SUMMARY | 2024-04-11 06:18 | XMS_ITS | Encounter Summary ---
Author Organization [facility] Address [address] [place] [address] Phone Care Team Providers Care Manager Cardiac Name Role Phone Judy Fishman NP Primary Care Provider + Reason for Visit * Consultation (Routine) - Closed Specialty Diagnoses / Procedures Referred By Mary t Referred To Contact Endocrinology Diagnoses PCOS (polycystic ovarian syndrome) Steph Garces MD [address] [place] [address] Phone: tel: fax: [facility] (All Locations) Referral ID Status Reason Start Date Expiration Date V isits Requested Visits Authorized [id number] Closed Specialty Services Required 06/08/2019 12/17/2020 1 1 Encounter Details Date Type Department Care Team (Late st Contact Info) Description 06/15/2019 2:40 PM VOCATIONAL EDUCATION PROFESSIONAL Office Visit [facility] Endocrinology Metabolism and Lipid [address] [facility] Medicine 5th [place] [address] [place] [address] Belem De La Torre MD [address] [facility] [address] [place] [address] Class 3 severe obesity without serious comorbidity with body mass index (BMI) of 40.0 to 44.9 in adult, unspecified obesity type (CMS/HCC) (Primary Dx); PCOS (polycystic ovarian syndrome); Irregular periods Social History Tobacco Use Types Packs/Day Years Used Date Smoking Tobacco: Every Day Cigarettes Smokeless Tobacco: Never Alcohol Use Standard Drinks/Week Comments Yes 2 (1 standard drink = 0.6 oz pur e alcohol) Comments Unknown Sex and Gender Information Value Date Recorded Sex Assigned at Not on file Legal Sex Female 7:54 PM VOCATIONAL EDUCATION PROFESSIONAL Gender Identity Not on file Sexual Orientation Not on file COVID-19 Exposure Response Date Recorded In the last month, have you been in contact with someone who was confirmed or suspected to have Coronavirus / COVID-19? No / Unsure 07/02/2019 12:40 PM CDT documented as of this encounter Last Filed Vital Signs Vital Sign Reading Time Taken Comments Blood Pressure 120/79 06/15/2019 2:48 PM VOCATIONAL EDUCATION PROFESSIONAL Pulse 94 06/15/2019 2:48 PM VOCATIONAL EDUCATION PROFESSIONAL Temperature 36.8 ??C (98.3 ??F) 06/15/2019 2:48 PM CS T Respiratory Rate - - Oxygen Saturation - - Inhaled Oxygen Concentration - - Weight 107.7 kg (237 lb 6.4 oz) 06/15/2019 2:48 PM VOCATIONAL EDUCATION PROFESSIONAL Height 157.5 cm (5' 2 ) 06/15/2019 2:48 PM VOCATIONAL EDUCATION PROFESSIONAL Body Mass Index 43.42 06/15/2019 2:48 PM VOCATIONAL EDUCATION PROFESSIONAL documented in this encounter Patient Instructions * Patient Instructions* Mulu De La Torre MD - 06/15/2019 2:40 PM VOCATIONAL EDUCATION PROFESSIONAL Here are the instructions for the saliva test: 1. Collect the sample at 11 pm. 2. Do not brush your teeth before collecting the sample. 3. Make sure you are not stressed the evening of collecting the sample. 4. Do not sleep and put an alarm to wake you up at 11pm to collect the sample 5. Stay awake till you collect the sample then go to sleep afterward when you like. 6. Do not eat or drink 15 minutes before collecting the sample. 7. Do not touch the swab with your fingers. TIONAL EDUCATION PROFESSIONAL documented in this encounter Progress Notes * Mulu De La Torre MD - 06/15/2019 2:40 PM CST Endocrine Patient Visit Referring provider: Steph Garces MD Chief Complaint: PCOS HPI: Initial visit on 06/15/2019 Patient is a 28 y.o. Lady with history of PCOS and recent diagnosis of crohn's disease on vedolizumab is here for PCOS. Diagnosed with in 2013 when had abdominal pain and [...] Has been on glyburide in the past. currently she is not taking any antihyperglycemia drug. She reports that her MATERIAL HANDLER physician has checked her insulin level which [...] Medication ??? no122/iron/folic acid ( MULTI ORAL) No current facility-administered medications for this visit. Review of Systems Review of systems per HPI and otherwise all other systems are negative. OBJECTIVES Physical exam: BP 120/79 Pulse 94 Temp 36.8 ??C (98.3 ??F) Ht 157.5 cm (5' 2 ) Wt 107.7 kg (237 lb 6.4 oz) BMI 43.42 kg/m?? General Appearance: NAD, well developed Head: No obvious abnormality, Eyes: PERRLA, EOMI, anicteric. No exophthalmos. No lid lag. Neck: Thyroid: Supple, symmetrical, trachea midline, no adenopathy No enlargement/tenderness/nodules Lungs: CTA B/L, No WCR Cardiovascular: RRR, S1 S2. Abdomen: + striae ( narrow and white) Extremities: No cyanosis or edema, Skin: Color/texture normal, no rashes or striae,lesions or bruising Neurologic: AAOX4. Normal reflexes throughout. No tremor. Psychosocial: Normal affect and mood. No past medical history on file. Past Surgical History: Procedure Laterality Date ??? ANKLE FRACTURE SURGERY 2009 ??? CHOLECYSTECTOMY 2018 (Not in a hospital [...] cousin ??? Crohn's disease Paternal cousin Labs: Results for LILIANA MANCILLA ( ) as [...] Ref Range: <=149 mg/dL 128 Results for LILAINA MANCILLA ( ) as of 06/15/2019 18:15 Ref. Range 10/27/2018 10:04 Vitamin D, 25-hydroxy Latest Ref Range: 30 - 80 ng/mL 17 (L) IMAGING: Assessment/Plan: Patient is a 28 y.o. Lady with history of PCOS and recent diagnosis of crohn's disease on vedolizumab is here for PCOS. She meets criteria for PCOS diagnosis Current issues: Obesity: BMI kg/m2 Period Hirsutism Main concern: Obesity, would like to conceive Plan/ recommendations: 1. will check TSH, prolactin and salivary cortisol that could cause irregular periods and hirsutism. 2. Advised Lifestyle modifications and lw calorie diet for weight loss. 3. she couldn't tolerate metformin 4. Gave trulicity sample in the clinic, patient to have blood HCG l in two weeks and if negative , can take her first dose of Trlicity after restarting OCPS . Advised contraception while on turlicity. 5. Check Vitamin D level RTC in 2 months Thank you for allowing me to participate in the care of Ms. Mancilla. Will continue to follow. Mulu De La Torre MD Instructor in Medicine Division of Endocrinology, Metabolism and Lipid Research [facility] TIONAL EDUCATION PROFESSIONAL documented in this encounter Miscellaneous Notes * Addendum Note - Saturnino Parson RN - 06/15/2019 2:40 PM CSTAddended by: SATURNINO PARSON on: 07/02/2019 01:00 PM Modules accepted: Orders * Addendum Note - Saturnino Parson RN - 06/15/2019 2:40 PM CSTAddended by: SATURNINO PARSON on: 07/02/2019 01:01 PM Modules accepted: Orders * Addendum Note - Saturnino Parson RN - 06/15/2019 2:40 PM CSTAddended by: SATURNINO PARSON on: 07/02/2019 01:02 PM Modules accepted: Orders * Addendum Note - Maximilian Canales - 06/15/2019 2:40 PM CSTAddended by: MAXIMILIAN CANALES on: 07/02/2019 03:42 PM Modules accepted: Orders documented in this encounter Plan of Treatment Scheduled Orders Name Type Priority Associated Diagnoses Orde r Schedule CORTISOL, SALIVA 2 Lab Routine PCOS (polycystic ovarian syndrome) Class 3 severe obesity without serious comorbidity with body mass index (BMI) of 40.0 to 44.9 in adult, unspecified obesity type (CMS/HCC) Expected: 06/15/2019, Expires: 06/14/2020 hCG, blood, qualitative Lab Routine PCOS (polycystic ovarian syndrome) Expected: 07/02/2019, Expires: 06/14/2020 documented as of this encounter Results * (ABNORMAL) Vitamin D 25 hydroxy (07/02/2019 12:55 PM CDT) Vitamin D 25-OH 19(L) 30 - 80 ng/mL [facility] Blood specimen (specimen) 07/02/2019 12:55 PM CDT 07/02/2019 3:43 PM CDT us Belem De La Torre MD LAB BLOOD ORDERABLES Final Resul t [facility] Department [place] [address] * TSH reflex to free T4 (07/02/2019 12:55 PM CDT) TSH 0.75 0.30 - 4.20 mcIUnit/mL [facility] Blood specimen (specimen) 07/02/2019 12:55 PM CDT 07/02/2019 3:43 PM CDT Belem De La Torre MD LAB BLOOD ORDERABLES Final Resul t Performing Organization Address [facility] de Phone Number [facility] Department [place] [address] * (ABNORMAL) Prolactin (07/02/2019 12:55 PM CDT) Prolactin 4.5(L) 5.2 - 26.5 ng/mL [facility] Blood specimen (specimen) 07/02/2019 12:55 PM CDT 07/02/2019 3:43 PM CDT Belem De La Torre MD LAB BLOOD ORDERABLES Final Resul t Performing Organization Address [facility] de Phone Number [facility] [place] [address] documented in this encounter Visit Diagnoses Diagnosis Class 3 severe obesity without serious comorbidity with body mass index (BMI) of 40.0 to 44.9 in adult, unspecified obesity type (HCC)- Primary PCOS (polycystic ovarian syndrome) Polycystic ovaries Irregular periods documented in this encounter Discontinued Medications Medication Sig Discontinue Reason Start Date End Da te budesonide EC (ENTOCORT EC) 3 mg 24 hr capsule 08/31/2018 0 cholecalciferol (VITAMIN D-3) 50,000 unit capsuleIndications:Vitamin D Deficiency Take 1 capsule (50,000 Units total) by mouth once a week 11/13/2018 06/15/2019 cholestyramine (QUESTRAN) 4 gram packet MIX AND TK CNTS PO QD UTD 07/20/2018 06/15/2019 metroNIDAZOLE (FLAGYL) 250 mg tablet TK 1 T QID 08/03/2018 06/15/2019 ondansetron ODT (ZOFRAN-ODT) 4 mg disintegrating tablet Take 4 mg by mouth every 6 hours as needed 06/15/2019 CHAVEZ 3-0.03 mg per tablet 08/06/201806/14 documented as of this encounter Orders Outpatient Referral Count Last Ordered Date Fir st Ordered Date AMB REFERRAL TO ENDOCRINOLOGY 1 06/15/2019 documented in this encounter Care Teams Manager Cardiac Relationship Specialty Start Date End Date Judy Fishman NP [address] [address] PCP - General 07/31/18 documented as of this encounter
--- OUTSIDE RECORDS SUMMARY | 2024-04-11 06:18 | XMS_ITS | Encounter Summary ---
Author Organization [facility] Address [address] [place] [address] Phone Care Team Providers Care Editor In Chief Name Role Phone Judy Fishman WORK FROM HOME Primary Care Provider + Reason for Visit * Episode Based Medications (Routine) - Pending Review Specialty Diagnoses / Procedures Referred By Mary roberson Referred To Contact Diagnoses Crohn's disease of small intestine with other complication (HCC) Procedures [place] INJECTION, VEDOLIZUMAB Trent Severino MD [address] [place] [address] Phone: tel: fax: [facility] Advanced Medicine 5th [place] [address] [place] [address] Phone: tel: fax: Referral ID Status Reason Start Date Expiration Date V isits Requested Visits Authorized [id number] Pending Review 09/26/2021 09/26/2022 41 41 Encounter Details Date Type Department Care Team (Late st Contact Info) Description 01/29/2019 2:00 PM CDT Infusion [facility] Advanced Medicine 5th [place] [address] [place] [address] Crohn's disease of small intestine [...] Sign Reading Time Taken Comments Blood Pressure 128/76 01/29/2019 2:25 PM CDT Pulse 100 01/29/2019 2:25 PM CDT Temperature 36.8 ??C (98.3 ??F) 01/29/2019 2:25 PM CD T Respiratory Rate - - Oxygen Saturation - - Inhaled Oxygen Concentration - - Weight - - Height - - Body Mass Index - - documented in this encounter Progress Notes * Cynthia Mendez RN - 01/29/2019 2:00 PM CDT Pt to infusion center for 3/3 loading Entyvio. VSS. Denies illness. Tolerated infusion without adverse reaction. 8 week follow up scheduled. No concerns. documented in this encounter Miscellaneous Notes * Addendum Note - Liliana Steel - 01/29/2019 2:00 PM CDTAddended by: LILIANA STEEL on: 01/29/2019 03:38 PM Modules accepted: Orders documented in this encounter Plan of Treatment Not on file documented as of this encounter Results * (ABNORMAL) Vedolizumab with Reflex to Ab (08/17/2019 10:46 AM CDT) Vedolizumab Qn 14.0(L) mcg/mL [facility] Comment: For concentrations of vedolizumab less than or equal to 15.0 mcg/mL, reflex testing for [id number] will be performed. REFERENCE VALUE Lower limit of quantitation = 2.0 mcg/mL ADDITIONAL INFORMATION This test was developed and its performance characteristics determined by [facility] in a manner consistent with CLIA requirements. This test has not been cleared or approved by the U.S. Food and Drug Administration. Test Performed by: [facility] - [facility] [address] [place] [address] Cipher Expert: Shaun Benitez M.D. Ph.D.; CLIA# [id number] Blood specimen (specimen) 08/17/2019 10:46 AM CDT 08/17/2019 11:40 AM CDT Trent Severino MD LAB BLOOD ORDERABLES Final Re sult [facility] Department [place] [address] documented in this encounter Visit Diagnoses Diagnosis [...] mL/hr, Administer over 30 Minutes, Once, On 01/30/19 at 2000, For 1 doseIndications:Crohn's disease of small intestine with other complication (HCC) New Bag 01/29/2019 1:45 PM CDT 300 mg 5 10 mL/hr documented in this encounter Orders Medications Ordered That Jonathan ht Not Have Been Administered Count Last Ordered Date First Ordered Date sodium chloride 0.9% flush 10 mL 1 01/30/20 19 vedolizumab (ENTYVIO) 300 mg in sodium chloride 0.9% 250 mL IVPB 1 01/29/2019 Nursing Count Last Ordered Date First Orde red Date DAILY WEIGHTS 1 01/29/2019 ONCBCN NO PREMEDS NEEDED 1 01/29/2019 ONCBCN NURSING COMMUNICATION [id number] 1 1 ONCBCN PROVIDER COMMUNICATION 1 1 9 VITAL SIGNS PRE-INFUSION 1 01/29/2019 documented in this encounter Care Teams Editor In Chief Relationship Specialty Start Date End Date Judy Fishman NP [address] [address] PCP - General 07/31/18 documented as of this encounter
--- OUTSIDE RECORDS SUMMARY | 2024-04-11 06:18 | XMS_ITS | Encounter Summary ---
Author Organization [facility] Address [address] [place] [address] Phone Care Team Providers Care Electronic Publications Specialist Name Role Phone Judy Fishman BLUEPRINTER Primary Care Provider + Reason for Visit * Episode Based Medications (Routine) - Pending Review Specialty Diagnoses / Procedures Referred By Mary roberson Referred To Contact Diagnoses Crohn's disease of small intestine with other complication (HCC) Procedures [place] INJECTION, VEDOLIZUMAB Trent Severino MD [address] [place] [address] Phone: tel: fax: [facility] Advanced Medicine 5th [place] [address] [place] [address] Phone: tel: fax: Referral ID Status Reason Start Date Expiration Date V isits Requested Visits Authorized [id number] Pending Review 09/26/2021 09/26/2022 41 41 Encounter Details Date Type Department Care Team (Late st Contact Info) Description 07/02/2019 12:45 PM CDT Infusion [facility] Advanced Medicine 5th [place] [address] [place] [address] Crohn's disease of small intestine [...] on file Legal Sex Female 7:54 PM CIVIL ENGINEERING 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 No / Unsure 07/02/2019 12:40 PM CDT documented as of this encounter Last Filed Vital Signs Vital Sign Reading Time Taken Comments Blood Pressure 113/76 07/02/2019 1:40 PM CDT Pulse 92 07/02/2019 1:40 PM CDT Temperature 36.6 ??C (97.9 ??F) 07/02/2019 1:40 PM CD T Respiratory Rate - - [...] mL/hr, Administer over 30 Minutes, Once, On Fri07/02/19 at 1309, For 1 doseIndications:Crohn's disease of small intestine with other complication (HCC) New Bag 07/02/2019 1:00 PM CDT 300 mg 5 10 mL/hr documented in this encounter Orders Medications Ordered That Jonathan ht Not Have Been Administered Count Last Ordered Date First Ordered Date vedolizumab (ENTYVIO) 300 mg in sodium chloride 0.9% 250 mL IVPB 1 07/02/2019 Nursing Count Last Ordered Date First Orde red Date ONCBCN NO PREMEDS NEEDED 1 07/02/2019 VITAL SIGNS PRE-INFUSION 1 07/02/2019 documented in this encounter Care Teams Electronic Publications Specialist Relationship Specialty Start Date End Date Judy Fishman NP [address] [address] PCP - General 07/31/18 documented as of this encounter
--- OUTSIDE RECORDS SUMMARY | 2024-04-11 06:18 | XMS_ITS | Encounter Summary ---
Author Organization [facility] Address [address] [place] [address] Phone Care Team Providers Care Business Education Professor Name Role Phone Judy Fishman SHOE STITCHER Primary Care Provider + Reason for Visit * Episode Based Medications (Routine) - Pending Review Specialty Diagnoses / Procedures Referred By Mary roberson Referred To Contact Diagnoses Crohn's disease of small intestine with other complication (HCC) Procedures [place] INJECTION, VEDOLIZUMAB Trent Severino MD [address] [place] [address] Phone: tel: fax: [facility] [address] [place] [address] [place] [address] Phone: tel: fax: Referral ID Status Reason Start Date Expiration Date V isits Requested Visits Authorized [id number] Pending Review 09/26/2021 09/26/2022 41 41 Encounter Details Date Type Department Care Team (Late st Contact Info) Description 03/26/2019 12:45 PM DIESEL LOCOMOTIVE ENGINEER Infusion [facility] 5th [place] [address] [place] [address] Crohn's disease of small intestine [...] on file Legal Sex Female 7:54 PM DIESEL LOCOMOTIVE ENGINEER Gender Identity Not on file Sexual Orientation Not on file documented as of this encounter Last Filed Vital Signs Vital Sign Reading Time Taken Comments Blood Pressure 127/76 03/26/2019 1:20 PM DIESEL LOCOMOTIVE ENGINEER Pulse 83 03/26/2019 1:20 PM DIESEL LOCOMOTIVE ENGINEER Temperature 36.7 ??C (98.1 ??F) 03/26/2019 1:20 PM CS T Respiratory Rate 14 03/26/2019 1:20 PM DIESEL LOCOMOTIVE ENGINEER Oxygen Saturation - - Inhaled Oxygen Concentration - - Weight - - Height - - Body Mass Index - - documented in this encounter Plan of Treatment Not on file documented as of this encounter Results * (ABNORMAL) Vedolizumab with Reflex to Ab (03/26/2019 1:33 PM DIESEL LOCOMOTIVE ENGINEER) [facility] Vedolizumab Qn 13.8(L) mcg/mL [facility] Comment: For concentrations of vedolizumab less than or equal to 15.0 mcg/mL, reflex testing for [id number] will be performed. REFERENCE VALUE Lower limit of quantitation = 2.0 mcg/mL ADDITIONAL INFORMATION This test was developed and its performance characteristics determined by [facility] in a manner consistent with CLIA requirements. This test has not been cleared or approved by the U.S. Food and Drug Administration. Test Performed by: [facility] - [address] [address] Aircraft Armament Mechanic: Shaun Benitez M.D. Ph.D.; CLIA# [id number] Blood specimen (specimen) 03/26/2019 1:33 PM DIESEL LOCOMOTIVE ENGINEER 03/26/2019 1:45 PM DIESEL LOCOMOTIVE ENGINEER us Trent Severino MD LAB BLOOD ORDERABLES Final Re sult [facility] Department [place] [address] documented in this encounter Visit Diagnoses Diagnosis [...] mL/hr, Administer over 30 Minutes, Once, On Fri03/26/19 at 1247, For 1 doseIndications:Crohn's disease of small intestine with other complication (HCC) New Bag 03/26/2019 12:45 PM DIESEL LOCOMOTIVE ENGINEER 300 mg 510 mL/hr documented in this encounter Orders Medications Ordered That Jonathan ht Not Have Been Administered Count Last Ordered Date First Ordered Date vedolizumab (ENTYVIO) 300 mg in sodium chloride 0.9% 250 mL IVPB 1 03/26/2019 Nursing Count Last Ordered Date First Orde red Date DAILY WEIGHTS 1 03/26/2019 ONCBCN NO PREMEDS NEEDED 1 03/26/2019 ONCBCN NURSING COMMUNICATION [id number] 1 1 05/27/2018 ONCBCN PROVIDER COMMUNICATION 1 9 VITAL SIGNS PRE-INFUSION 1 03/26/2019 documented in this encounter Care Teams Business Education Professor Relationship Specialty Start Date End Date Judy Fishman NP [address] [address] PCP - General 07/31/18 documented as of this encounter
--- OUTSIDE RECORDS SUMMARY | 2024-04-11 06:18 | XMS_ITS | Encounter Summary ---
Author Organization [facility] Address [address] [place] [address] Phone Care Team Providers Care Heat Plant Specialist Name Role Phone Judy Fishman OPTICAL INSTRUMENT REPAIRER Primary Care Provider + Encounter Details Date Type Department Care Team (Late st Contact Info) Description 03/26/2019 Documentation [facility] [address] [facility] 8th [place] [address] [place] [address] Abiola Silverman, RN Social History Tobacco Use Types Packs/Day Years Used Date Smoking Tobacco: Every Day Cigarettes Smokeless Tobacco: Never Alcohol Use Standard Drinks/Week Comments Yes 2 (1 standard drink = 0.6 oz pur e alcohol) Comments Unknown Sex and Gender Information Value Date Recorded Sex Assigned at Not on file Legal Sex Female 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 Informed tech that if pt would need to drink the contrast even if she was and complete mre as planned like with normal protocol. RGLASS INSULATION INSTALLER documented in this encounter Plan of Treatment Not on file documented as of this encounter Visit Diagnoses Not on filedocumented in this encounter Care Teams Heat Plant Specialist Relationship Specialty Start Date End Date Judy Fishman, BINU [address] [address] PCP - General 07/31/18 documented as of this encounter
--- OUTSIDE RECORDS SUMMARY | 2024-04-11 06:18 | XMS_ITS | Encounter Summary ---
Author Organization [facility] Facility Care Team Providers Care Installation Tech Name Role Phone Judy Fishman CAREER DEVELOPMENT FACILITATOR Primary Care Provider + Encounter Details Date Type Department Care Team (Latest Contact Info) Description 07/02/2019 Travel Social History Tobacco Use Types Packs/Day Years Used Date Smoking Tobacco: Every Day Cigarettes Smokeless Tobacco: Never Alcohol Use Standard Drinks/Week Comments Yes 2 (1 standard drink = 0.6 oz pur e alcohol) Comments Unknown Sex and Gender Information Value Date Recorded Sex Assigned at Not on file 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
--- OUTSIDE RECORDS SUMMARY | 2024-04-11 06:19 | XMS_ITS | Encounter Summary ---
Author Organization [facility] Address [address] [place] [address] Care Team Providers Care Blanket Binder Name Role Phone Judy Fishman BUSINESS DEVELOPER Primary Care Provider + Reason for Referral * Diagnostic Imaging (Routine) - Closed Specialty Diagnoses / Procedures Referred By Mary roberson Referred To Contact Radiology Diagnoses Chronic diarrhea Procedures MRI Abdomen Enterography W WO Contrast Trent Severino MD Phone: tel: fax: [address] [address] Referral ID Status Reason Start Date Expiration Date Visits Re quested Visits Authorized [id number] Closed 11/06/2018 12/21/2018 1 1 Reason for Visit * Diagnostic Imaging (Routine) - Closed Specialty Diagnoses / Procedures Referred By Mary roberson Referred To Contact Radiology Diagnoses Chronic diarrhea Procedures MRI Abdomen Enterography W WO Contrast Trent Severino MD Phone: tel: fax: [address] [address] Referral ID Status Reason Start Date Expiration Date Visits Re quested Visits Authorized [id number] Closed 11/06/2018 12/21/2018 1 1 Encounter Details Date Type Department Care Team (Latest Contact Info) Description 11/18/2018 2:31 PM CDT - 11/18/2018 11:59 PM CDT Hospital Encounter [facility] [address] [place] [address] Trent Severino MD [address] [place] [address] Chronic diarrhea Discharge Disposition: Discharge to home or self care Social History Tobacco Use Types Packs/Day Years Used Date Smoking Tobacco: Every Day Cigarettes Smokeless Tobacco: Never Alcohol Use Standard Drinks/Week Comments Yes 2 (1 standard drink = 0.6 oz pur e alcohol) Comments Unknown Sex and Gender Information Value Date Recorded Sex Assigned at Not on file 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 Gender Identity Not on file Sexual Orientation Not on file documented as of this encounter Medications at Time of Discharge budesonide EC (ENTOCORT EC) 3 mg 24 hr capsule 0 08/31/2018 06/15/19 20 cholecalciferol (VITAMIN D-3) 50,000 unit capsuleIndication s:Vitamin D Deficiency Take 1 capsule (50,000 Units total) by mouth once a week 12 capsule 3 11/13/2018 06/15/2019 cholestyramine (QUESTRAN) 4 gram packet MIX AND TK CNTS PO QD UTD 0 07/20/2018 06/15/2019 metroNIDAZOLE (FLAGYL) 250 mg tablet TK 1 T QID 0 08/03/2018 06/15/2019 CHAVEZ 3-0.03 mg per tablet 08/06/2018 06/15/2019 documented as of this encounter Discharge Disposition Disposition Code Departure Means Destination Discharge to home or self care documented in this encounter Plan of Treatment Not on file documented as of this encounter Procedures Procedure Name Priority Date/Time Associated Diagnosis Comments MRI ABDOMENT ENTEROGRAPHY W WO CONTRAST Schedule Routine, Read Routine (OP Routine) 11/18/2018 4:57 PM CDT Chronic diarrhea documented in this encounter Results * MRI Abdomen Enterography W WO Contrast (11/18/2018 4:57 PM CDT) Anatomical Region Laterality Modality Body N/A Magnetic Resonan ce 11/19/2018 10:0 4 AM CDT Impressions 11/19/2018 12:22 PM CDT Slight wall thickening of the distalmost ileum with associated minimal active inflammation, without penetrating disease or stricture. Dictated by: Crow Parham M.D. The radiology attending physician has personally reviewed this study, and had reviewed and/or edited this written report and agrees with it. Electronically signed by: Jack Patten M.D. Narrative 11/19/2018 12:22 PM CDT EXAMINATION: MAGNETIC RESONANCE IMAGING OF THE ABDOMEN WITH AND WITHOUT CONTRAST HISTORY: Chronic diarrhea. Concern for Crohn's disease. TECHNIQUE: Magnetic resonance imaging of the abdomen was performed prior to and following the uneventful administration of intravenous Gadolinium contrast. Oral Volumen and 1 mg of intravenous glucagon was administered prior to the examination. Protocol: MR Enterography Creatinine: 0.7 mg/dL Estimated GFR: Greater than 60 ml/min/1.73 meters squared Contrast: Dotarem 18 mL COMPARISON: No prior magnetic resonance imaging is available for comparison. FINDINGS: Bowel: Small and large bowel are nonobstructed. There is no stricture. There is extremely mild wall thickening and mucosal enhancement of the distal 2 cm of terminal ileum. No other involved segments are seen. There is no evidence of penetrating disease. There are no sequela of chronic inflammation. Liver/Bile Ducts: Normal. Gallbladder: Surgically absent. Pancreas: Normal. Spleen: Normal. Adrenals: Normal. Kidneys: Normal. Bladder: Normal. Reproductive organs: Normal. Other Findings: No lymphadenopathy. No focal osseous lesion. Procedure Note Jack Patten MD - 11/19/2018 EXAMINATION: MAGNETIC RESONANCE IMAGING OF THE ABDOMEN WITH AND WITHOUT CONTRAST HISTORY: Chronic diarrhea. Concern for Crohn's disease. TECHNIQUE: Magnetic resonance imaging of the abdomen was performed prior to and following the uneventful administration of intravenous Gadolinium contrast. Oral Volumen and 1 mg of intravenous glucagon was administered prior to the examination. Protocol: MR Enterography Creatinine: 0.7 mg/dL Estimated GFR: Greater than 60 ml/min/1.73 meters squared Contrast: Dotarem 18 mL COMPARISON: No prior magnetic resonance imaging is available for comparison. FINDINGS: Bowel: Small and large bowel are nonobstructed. There is no stricture. There is extremely mild wall thickening and mucosal enhancement of the distal 2 cm of terminal ileum. No other involved segments are seen. There is no evidence of penetrating disease. There are no sequela of chronic inflammation. Liver/Bile Ducts: Normal. Gallbladder: Surgically absent. Pancreas: Normal. Spleen: Normal. Adrenals: Normal. Kidneys: Normal. Bladder: Normal. Reproductive organs: Normal. Other Findings: No lymphadenopathy. No focal osseous lesion. IMPRESSION: Slight wall thickening of the distalmost ileum with associated minimal active inflammation, without penetrating disease or stricture. Dictated by: Crow Parham M.D. The radiology attending physician has personally reviewed this study, and had reviewed and/or edited this written report and agrees with it. Electronically signed by: Jack Patten M.D. Trent Severino MD IM MRI PROCEDURES Final Resu lt documented in this encounter Visit Diagnoses Diagnosis Chronic diarrhea Diarrhea documented in this encounter Administered Medications Inactive Administered Medications - up to 3 most recent administrations Medication Order MAR Action Action Date Dose Rate Site gadoterate meglumine (DOTAREM) 0.5 mmol/mL injection 18.64 mL 18.64 mL (0.1 mmol/kg ? 93.2 kg), intravenous, Once in imaging, contrast, Starting on Fri11/18/18 at 1640, For 1 dose, Imaging Protocol Orders Given 11/18/2018 4:47 PM CDT 18 mL glucagon injection 1 mg 1 mg, intravenous, Administer over 1 Minutes, Once in imaging, low blood sugar, Starting on Fri11/18/18 at 1530, For 1 dose, Imaging Protocol Orders Given 11/18/2018 3:54 PM CDT 1 mg documented in this encounter Care Teams Blanket Binder Relationship Specialty Start Date End Date Judy Fishman NP [address] [address] PCP - General 07/31/18 documented as of this encounter
--- OUTSIDE RECORDS SUMMARY | 2024-04-11 06:19 | XMS_ITS | Encounter Summary ---
Author Organization [facility] Address [address] [place] [address] Care Team Providers Care Electric Solderer Name Role Phone Judy Fishman INTERNATIONAL SOURCING MANAGER Primary Care Provider + Encounter Details Date Type Department Care Team (Late st Contact Info) Description 10/27/2018 10:00 AM CDT Lab [facility] Advanced Medicine [facility] Advanced [facility] ([facility]) [address] [place] [phone] Trent Severino MD [address] [place] [address] Chronic diarrhea Discharge Disposition: Discharge to home or self care Social History Tobacco Use Types Packs/Day Years Used Date Smoking Tobacco: Every Day Cigarettes Smokeless Tobacco: Never Alcohol Use Standard Drinks/Week Comments Yes 2 (1 standard drink = 0.6 oz pur e alcohol) Comments Unknown Sex and Gender Information Value Date Recorded Sex Assigned at Not on file Legal 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 Female 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 Gender Identity Not on file Sexual Orientation Not on file documented as of this encounter Discharge Disposition Disposition Code Departure Means Destination Discharge to home or self care documented in this encounter Plan of Treatment Not on file documented as of this encounter Procedures Procedure Name Priority Date/Time Associated Diagnosis Comments T-SPOT.TB Routine 10/27/2018 10:04 AM CDT Chronic diarrhea DIFFERENTIAL AUTO Routine 10/27/2018 10: 04 AM CDT Chronic diarrhea TPMT ACTIVITY Routine 10/27/2018 10:04 AM CDT Chronic diarrhea IRON PROFILE W/ IBC Routine 10/27/2018 1 0:04 AM CDT Chronic diarrhea CBC WITH AUTO DIFFERENTIAL Routine 10/27/2018 10:04 AM CDT Chronic diarrhea HEPATITIS B CORE ANTIBODY, TOTAL Routine 10/27/2018 10:04 AM CDT Chronic diarrhea VITAMIN D 25 HYDROXY Routine 10/27/2018 10:04 AM CDT Chronic diarrhea HEPATITIS B SURFACE ANTIBODY (IMMUNE STATUS) Routine 10/27/2018 10:04 AM CDT Chronic diarrhea HEPATITIS B SURFACE ANTIGEN Routine 10/27/2018 10:04 AM CDT Chronic diarrhea ERYTHROCYTE SEDIMENTATION RATE Routine 10/27/2018 10:04 AM CDT Chronic diarrhea CRP (ACUTE PHASE) Routine 10/27/2018 10: 04 AM CDT Chronic diarrhea FOLATE Routine 10/27/2018 10:04 AM CDT Chronic diarrhea FERRITIN Routine 10/27/2018 10:04 AM CDT Chronic diarrhea VITAMIN B12 Routine 10/27/2018 10:04 AM CDT Chronic diarrhea LIPID PANEL Routine 10/27/2018 10:04 AM CDT Chronic diarrhea COMPREHENSIVE METABOLIC PANEL Routine 10/27/2018 10:04 AM CDT Chronic diarrhea documented in this encounter Results * (ABNORMAL) Differential, auto (10/27/2018 10:04 AM CDT) Neutrophil abs 6.8(H) 1.7 - 6.5 K/cumm [facility] Imm gran abs 0.0 0.0 - 0.1 K/cumm [facility] Lymphocyte abs 3.2 0.8 - 3.3 K/cumm [facility] Monocyte abs 0.6 0.2 - 0.8 K/cumm [facility] Eosinophil abs 0.5 0.0 - 0.5 K/cumm [facility] Basophil abs 0.0 0.0 - 0.1 K/cumm [facility] Neutrophil pct 60.4 % [facility] Comment: Interpretive Data Percent cell count reference ranges are not reported, since discordance with absolute values may lead to misinterpretation of CBC data. Current Interpretive Data was last revised on 2017. Imm gran pct 0.4 % [facility] Comment: Interpretive Data Percent cell count reference ranges are not reported, since discordance with absolute values may lead to misinterpretation of CBC data. Current Interpretive Data was last revised on 2017. Lymphocyte pct 29.0 % [facility] Comment: Interpretive Data Percent cell count reference ranges are not reported, since discordance with absolute values may lead to misinterpretation of CBC data. Current Interpretive Data was last revised on 2017. Monocyte pct 5.3 % [facility] Comment: Interpretive Data Percent cell count reference ranges are not reported, since discordance with absolute values may lead to misinterpretation of CBC data. Current Interpretive Data was last revised on 2017. Eosinophil pct 4.5 % [facility] Comment: Interpretive Data Percent cell count reference ranges are not reported, since discordance with absolute values may lead to misinterpretation of CBC data. Current Interpretive Data was last revised on 2017. Basophil pct 0.4 % [facility] Comment: Interpretive Data Percent cell count reference ranges are not reported, since discordance with absolute values may lead to misinterpretation of CBC data. Current Interpretive Data was last revised on 2017. Blood specimen (specimen) 10/27/2018 10:04 AM CDT 10/27/2018 10:22 AM CDT us Trent Severino MD LAB BLOOD ORDERABLES Final Re sult [facility] Department [place] [address] * (ABNORMAL) CBC with auto differential (10/27/2018 10:04 AM CDT) [facility] WBC 11.2(H) 3.8 - 9.9 K/cumm [facility] Hgb 12.4 11.9 - 15.5 g/dL [facility] Hct 38.3 35.6 - 45.5 % [facility] Plt 340 150 - 400 K/cumm [facility] MPV 10.2 9.1 - 12.3 fL [facility] RBC 4.64 3.90 - 5.20 M/cumm [facility] MCV 82.5 81.3 - 96.4 fL [facility] MCH 26.7(L) 27.1 - 33.3 pg [facility] MCHC 32.4 32.3 - 35.7 g/dL [facility] RDW CV 14.3 11.1 - 14.9 % [facility] RDW SD 43.1 35.7 - 48.1 fL [facility] NRBC abs 0.00 0.00 - 0.01 K/cumm [facility] Blood specimen (specimen) 10/27/2018 10:04 AM CDT 10/27/2018 10:22 AM CDT Trent Severino MD LAB BLOOD ORDERABLES Final Re sult [facility] Department [place] [address] * Comprehensive metabolic panel (10/27/2018 10:04 AM CDT) [facility] Sodium 140 135 - 145 mmol/L [facility] Potassium, pl 4.4 3.3 - 4.9 mmol/L [facility] Chloride 106 97 - 110 mmol/L [facility] CO2 26 22 - 32 mmol/L [facility] Anion gap 8 2 - 15 mmol/L [facility] BUN 10 8 - 25 mg/dL [facility] Creatinine 0.69 0.60 - 1.10 mg/dL [facility] Glucose 87 70 - 199 mg/dL [facility] Comment: Interpretive Data Fasting glucose >/= 126 [...] interpretive data was last revised 2017. Calcium 9.3 8.5 - 10.3 mg/dL [facility] Bilirubin, total 0.2 0.1 - 1.2 mg/dL [facility] Protein, pl 7.8 6.5 - 8.5 g/dL [facility] Albumin 4.0 3.5 - 5.0 g/dL [facility] Alk phos 77 40 - 130 Units/L [facility] ALT 22 7 - 45 Units/L [facility] AST 17 10 - 45 Units/L [facility] Blood specimen (specimen) 10/27/2018 10:04 AM CDT 10/27/2018 10:22 AM CDT Trent Severino MD LAB BLOOD ORDERABLES Final Re sult Performing Organization Address City/[facility]/ZIP Co de Phone Number [facility] Department of [employer] [address] [place] [address] * (ABNORMAL) CRP (acute phase) (10/27/2018 10:04 AM CDT) CRP 16.2(H) <=10.0 mg/L [facility] Blood specimen (specimen) 10/27/2018 10:04 AM CDT 10/27/2018 10:22 AM CDT Trent Severino MD LAB BLOOD ORDERABLES Final Re sult [facility] Department [place] [address] * Erythrocyte sedimentation rate (10/27/2018 10:04 AM CDT) Pathologist [facility] [place] Erythrocyte sedimentation rate 17 1 - 20 mm/hr [facility] Blood specimen (specimen) 10/27/2018 10:04 AM CDT 10/27/2018 10:22 AM CDT Trent Severino MD LAB BLOOD ORDERABLES Final Re sult Performing Organization Address City/[facility]/ZIP Co de Phone Number [facility] Department [place] [address] * Ferritin (10/27/2018 10:04 AM CDT) Pathologist [facility] [place] Ferritin 58 15 - 150 ng/mL [facility] Blood specimen (specimen) 10/27/2018 10:04 AM CDT 10/27/2018 10:22 AM CDT Trent Severino MD LAB BLOOD ORDERABLES Final Re sult Performing Organization Address [facility] Co de Phone Number [facility] [employer] [address] [place] [address] * Folate (10/27/2018 10:04 AM CDT) [facility] Folic acid 11.0 >=5.0 ng/mL [facility] Blood specimen (specimen) 10/27/2018 10:04 AM CDT 10/27/2018 10:23 AM CDT Trent Severino MD LAB BLOOD ORDERABLES Final Re sult Performing Organization Address [facility] Co de Phone Number [facility] [employer] [address] [place] [address] * Hepatitis B core antibody, total (10/27/2018 10:04 AM CDT) Pathologist [facility] [place] Hep B core IgG/IgM Nonreactive Nonreactive [facility] Blood specimen (specimen) 10/27/2018 10:04 AM CDT 10/27/2018 10:23 AM CDT Trent Severino MD LAB MICROBIOLOGY - GENERAL OR DERABLES Edited Result - Final Performing Organization Address [facility] Co de Phone Number [facility] [place] [address] * (ABNORMAL) Hepatitis B surface antibody (immune status) (10/27/2018 10:04 AM CDT) HBsAb (immune status) Reactive [facility] Comment: Interpretive Data A Negative Result indicates HBsAb of less than 10mIU/mL; a Positive Result indicates HBsAb of greater than or equal to 10mIU/mL. If qualitative result is Positive, HBsAb Quantitation will be reported. Assay performance characteristics have not been established as an aid in determining susceptibility to HBV infection prior to or following vaccination in infants, or children. For monitoring serum HBsAb levels during hepatitis B immunoglobulin (HBIG) therapy in transplant recipients, please refer to institutional HBIG protocol for desirable HBsAb levels. Current interpretive data was last revised on 2016. HBsAb (immune status) index 61.8(H) 0.0 - 10.0 mIUnits/m L [facility] Blood specimen (specimen) 10/27/2018 10:04 AM CDT 10/27/2018 10:23 AM CDT Trent Severino MD LAB MICROBIOLOGY - GENERAL OR DERABLES Final Result Performing Organization Address [facility]/ZIP Co de Phone Number [facility] Department [place] [address] * Hepatitis B Surface Antigen (10/27/2018 10:04 AM CDT) HepBsAg Nonreactive Nonreactive [facility] Blood specimen (specimen) 10/27/2018 10:04 AM CDT 10/27/2018 10:23 AM CDT Trent Severino MD LAB MICROBIOLOGY - GENERAL OR DERABLES Edited Result - Final Performing Organization Address [facility] Co de Phone Number [facility] Department [place] [address] * (ABNORMAL) Iron profile w/ IBC (10/27/2018 10:04 AM CDT) Iron 82 35 - 145 mcg/dL [facility] TIBC 459(H) 250 - 400 mcg/dL [facility] Transferrin saturation 18(L) 20 - 50 % [facility] Blood specimen (specimen) 10/27/2018 10:04 AM CDT 10/27/2018 10:23 AM CDT Trent Severino MD LAB BLOOD ORDERABLES Final Re sult Performing Organization Address [facility] de Phone Number [facility] Department [place] [address] * Lipid panel (10/27/2018 10:04 AM CDT) Cholesterol 152 30 - 199 mg/dL [facility] Comment: Interpretive Data Ages < or = [...] Data was last revised on 2017. Triglycerides 128 <=149 mg/dL [facility] Comment: Interpretive Data Ages < or = [...] Data was last revised on 2017. HDL 48 >=40 mg/dL [facility] Comment: Interpretive Data Ages < or = [...] was last revised on 2017. LDL, calculated 78 <=129 mg/dL [facility] Comment: Interpretive Data Ages < or = [...] was last revised on 2017. Non-HDL Cholesterol 104 mg/dL [facility] Comment: Interpretive Data Ages < or = [...] was last revised on 2017. Chol/HDL ratio 3 [facility] Blood specimen (specimen) 10/27/2018 10:04 AM CDT 10/27/2018 10:23 AM CDT Trent Severino MD LAB BLOOD ORDERABLES Final Re sult [facility] Department [place] [address] * T-SPOT.TB (10/27/2018 10:04 AM CDT) T-SPOT.TB Negative Negative [facility] Comment: Limitations from the T-SPOT.TB Package Insert [...] with T-SPOT.TB test. T-Spot testing performed by [facility], [address] [place] [address]. [id number] A negative test result does not exclude [...] test. T-SPOT.TB Panel A Spot Count 0 [facility] T-SPOT.TB Panel B Spot Count 0 [facility] T-SPOT.TB Negative Control Passed [facility] T-SPOT.TB Positive Control Passed [facility] Blood specimen (specimen) 10/27/2018 10:04 AM CDT 10/27/2018 10:35 AM CDT Trent Severino MD LAB MICROBIOLOGY - GENERAL OR DERABLES Final Result Performing Organization Address [facility] Co de Phone Number [facility] Department [place] [address] * TPMT activity profile, RBC (10/27/2018 10:04 AM CDT) 6-METHYLMERCAPTOPURI NE 3.83 3.00 - 6.66 [facility] 6-Methylmercaptopuri ne Riboside 6.75 5.04 - 9.57 [facility] 6-METHYLTHIOGUANINE RIBOSIDE 4.70 2.70 - 5.84 [facility] Interpretation,Comp See Footnote [facility] Comment: *Normal* In this whole blood sample, the profile of activity of thiopurine methyltransferase using three different substrates was normal or essentially normal. ADDITIONAL INFORMATION Liquid Chromatography-Tandem Mass Spectrometry (LC-MS/MS) This test was developed and its performance characteristics determined by [facility] in a manner consistent with CLIA requirements. This test has not been cleared or approved by the U.S. Food and Drug Administration. Reviewed by See Footnote [facility] Comment: RESULT: Kya Diaz M.D. Test Performed by: [address] [address] Blood specimen (specimen) 10/27/2018 10:04 AM CDT 10/27/2018 10:39 AM CDT Trent Severino MD LAB BLOOD ORDERABLES Final Re sult Performing Organization Address [facility] Co de Phone Number [facility] [address] * Vitamin B12 (10/27/2018 10:04 AM CDT) Vitamin B12 515 230 - 1,250 pg/mL [facility] Blood specimen (specimen) 10/27/2018 10:04 AM CDT 10/27/2018 10:23 AM CDT Trent Severino MD LAB BLOOD ORDERABLES Final Re sult Performing Organization Address City/[facility]/[place] [address] * (ABNORMAL) Vitamin D 25 hydroxy (10/27/2018 10:04 AM CDT) Vitamin D 25-OH 17(L) 30 - 80 ng/mL [facility] Blood specimen (specimen) 10/27/2018 10:04 AM CDT 10/27/2018 10:23 AM CDT Trent Severino MD LAB BLOOD [place] [address] documented in this encounter Visit Diagnoses Diagnosis Chronic diarrhea Diarrhea documented in this encounter Care Teams Electric Solderer Relationship Specialty Start Date End Date Judy Fishman NP [address] [address] PCP - General 07/31/18 documented as of this encounter
--- OUTSIDE RECORDS SUMMARY | 2024-04-11 06:19 | XMS_ITS | Encounter Summary ---
Author Organization [facility] Address [address] [place] [address] Care Team Providers Care It Security Manager Name Role Phone Unavailable Primary Care Provider Unavailabl e Encounter Details Date Type Department Care Team (Latest Contact Info) Description 05/12/2017 1:41 AM COMPUTATIONAL SCIENCES PROFESSOR - 05/12/2017 5:31 AM COMPUTATIONAL SCIENCES PROFESSOR Hospital Encounter [facility] Arnulfo Casillas MD [address] [place] [address] Calculus of gallbladder without cholecystitis with obstruction; Myalgia Social History Tobacco Use Types Packs/Day Years Used Date Smoking Tobacco: Never Assessed Comments Unknown Sex and Gender Information Value Date Recorded Sex Assigned at Not on file Legal Sex Female 7:54 PM COMPUTATIONAL SCIENCES PROFESSOR Gender Identity Not on file Sexual Orientation Not on file documented as of this encounter Last Filed Vital Signs Vital Sign Reading Time Taken Comments Blood Pressure 120/72 05/12/2017 1:46 AM COMPUTATIONAL SCIENCES PROFESSOR Pulse 71 05/12/2017 1:46 AM COMPUTATIONAL SCIENCES PROFESSOR Temperature 36.7 ??C (98 ??F) 05/12/2017 1:46 AM COMPUTATIONAL SCIENCES PROFESSOR Respiratory Rate - - Oxygen Saturation 98% 05/12/2017 1:46 AM COMPUTATIONAL SCIENCES PROFESSOR Inhaled Oxygen Concentration - - Weight 111.5 kg (245 lb 13.1 oz) 05/12/2017 1:46 AM COMPUTATIONAL SCIENCES PROFESSOR Height 157.5 cm (5' 2 ) 05/12/2017 1:46 AM COMPUTATIONAL SCIENCES PROFESSOR Body Mass Index 44.96 05/12/2017 1:46 AM COMPUTATIONAL SCIENCES PROFESSOR documented in this encounter Plan of Treatment Not on file documented as of this encounter Procedures Procedure Name Priority Date/Time Associated Diagnosis Comments TNI WITH LIPID PANEL Routine 05/12/2017 2:34 AM COMPUTATIONAL SCIENCES PROFESSOR CBC WITH AUTO DIFFERENTIAL Routine 05/12/2017 2:34 AM COMPUTATIONAL SCIENCES PROFESSOR LIPASE Routine 05/12/2017 2:34 AM COMPUTATIONAL SCIENCES PROFESSOR COMPREHENSIVE METABOLIC PANEL Routine 05/12/2017 2:34 AM COMPUTATIONAL SCIENCES PROFESSOR URINALYSIS, MACRO AND MICRO Routine 05/12/2017 1:55 AM COMPUTATIONAL SCIENCES PROFESSOR CTA CHEST W IV CONTRAST - PE Routine 05/12/2017 12:[address]ES [address] ABDOMEN PELVIS W CONTRAST Routine 05/12/2017 12:00 AM COMPUTATIONAL SCIENCES PROFESSOR documented in this encounter Results * Lipase (05/12/2017 2:34 AM COMPUTATIONAL SCIENCES PROFESSOR) Lipase 39 13 - 60 U/L 05/12/2017 3:16 AM [facility] [employer] [facility] HISTORICAL RESULTS 05/12/2017 2:34 AM COMPUTATIONAL SCIENCES PROFESSOR 05/12/2017 2:45 AM COMPUTATIONAL SCIENCES PROFESSOR us Arnulfo Duncan Casillas MD LAB BLOOD ORDERABLES Final Result [facility] HISTORICAL RESULTS * TNI with LIPID PANEL (05/12/2017 2:34 AM COMPUTATIONAL SCIENCES PROFESSOR) Pathologist [facility] [place] Troponin I < 0.300 0.000 - 0.300 ng/mL 05/12/2017 3:12 AM COMPUTATIONAL SCIENCES PROFESSOR [facility] [employer] [facility] HISTORICAL RESULTS Comment: Reference using EBONY Chemiluminescence ? Negative: Repeat in 4-6 hours as indicated. Triglycerides 109 0 - 199 mg/dL 05/12/2017 3:16 AM [facility] [employer] HISTORICAL RESULTS Comment:12 hr pc highly mindi mmended for Triglyceride Cholesterol 139 0 - 199 mg/dL 05/12/2017 3:16 AM [facility] [employer] HISTORICAL RESULTS Comment: Borderline: ??200-239 High Risk: ?? >239 HDL Cholesterol 47 mg/dL 201 8 3:16 AM [facility] HISTORICAL RESULTS Comment: New methodology in use 03-25-17; New Reference Ranges 04-23-17: Males: >=40 mg/dL Females: >=50 mg/dL LDL Cholesterol, Calc 70 0 - 130 mg/dL Comment:High Risk > 159 mg/d L Cholesterol/HDL Ratio 3.0 Comment: Cholesterol / HDL Ratio 3.5:1 or less is desirable. Cholesterol / HDL Ratio greater than 5:1 is considered higher risk for developing heart disease. 05/12/2017 2:34 AM COMPUTATIONAL SCIENCES PROFESSOR 05/12/2017 2:45 AM COMPUTATIONAL SCIENCES PROFESSOR us Arnulfo Duncan Casillas MD LAB BLOOD ORDERABLES Final Result [facility] HISTORICAL RESULTS * (ABNORMAL) Comprehensive metabolic panel (05/12/2017 2:34 AM COMPUTATIONAL SCIENCES PROFESSOR) Sodium 144 135 - 145 mmol/L Potassium 3.9 3.3 - 5.1 mmol/L Chloride 106 96 - 108 mmol/L Carbon Dioxide 22 22 - 32 mmol/L Anion Gap 16 7 - 16 Glucose 118(H) 70 - 100 mg/dL BUN 9 6 - 20 mg/dL Creatinine 0.5 0.5 - 1.1 mg/dL Comment: NOTE: Estimated GFR (Cockroft-Gault) will NOT be calculated unless patient Height and Weight were entered. Also, Kidney Disease Stage (GFR) and Estimated GFR (Cockroft-Gault) will NOT be calculated if Creatinine result is <0.2. Kidney Disease Stage > 90 mL/MIN Comment: NOTE; ??The GFR is an estimated value using the creatinine, sex, age, and race of the patient. THE Estimated Kidney Disease GFR is validated for AGES 18-70 YEARS STAGE ?mL/Min ?DESCRIPTION ??1 ?90 mL/min or more ?Normal or elevated GFR ??2 ? 60-89 mL/min ?Mildly decreased GFR ??3 ? 30-59 mL/min ?Moderately decreased GFR ??4 ? 15-29 mL/min ?Severely decreased GFR ??5 ? <15 mL/min ? Kidney failure or on dialysis @ Est GFR (Cockcroft-G) 204 ml/MIN Comment: Estimated GFR(Cockroft-Gault)is used to calculate patient medication dosage Calcium 8.9 8.6 - 10.0 mg/dL Total Protein 7.4 6.4 - 8.3 g/dL Albumin 4.0 3.5 - 5.2 g/dL Globulin 3.4 2.3 - 3.5 gm/dL Albumin/Globulin Ratio 1.2 1.1 - 1.8 Total Bilirubin < 0.2 0.0 - 1.2 mg/dL 05/12/2017 3:16 AM COMPUTATIONAL SCIENCES PROFESSOR [employer] [facility] HISTORICAL RESULTS AST 16 0 - 32 U/L 05/12/2017 3:16 AM COMPUTATIONAL SCIENCES PROFESSOR [facility] [employer] HISTORICAL RESULTS ALT 12 0 - 33 U/L 05/12/2017 3:16 AM COMPUTATIONAL SCIENCES PROFESSOR [facility] [employer] [facility] HISTORICAL RESULTS Alkaline Phosphatase 76 35 - 104 U/L 05/12/2017 3:16 AM COMPUTATIONAL SCIENCES PROFESSOR [facility] [employer] HISTORICAL RESULTS 05/12/2017 2:34 AM COMPUTATIONAL SCIENCES PROFESSOR 05/12/2017 2:45 AM COMPUTATIONAL SCIENCES PROFESSOR us Arnulfo Duncan Casillas MD LAB BLOOD ORDERABLES Final Result [facility] HISTORICAL RESULTS * (ABNORMAL) CBC with auto differential (05/12/2017 2:34 AM COMPUTATIONAL SCIENCES PROFESSOR) WBC 13.3(H) 3.5 - 10.5 x10 3/ul 05/12/2017 2:51 AM [facility] [employer] HISTORICAL RESULTS Comment:New Reference Range in use 05/01/17. RBC 4.52 3.76 - 4.80 x10 6/ul 05/12/2017 2:51 AM [facility] [employer] HISTORICAL RESULTS Hemoglobin 12.2 11.0 - 15.0 g/dL 05/12/2017 2:51 AM [facility] [employer] HISTORICAL RESULTS Hct 38.2 33.0 - 43.0 % 05/12/2017 2:51 AM [facility] [employer] [facility] HISTORICAL RESULTS MCV 84.5 80.0 - 97.0 fl 05/12/2017 2:51 AM COMPUTATIONAL SCIENCES PROFESSOR [facility] [employer] [facility] HISTORICAL RESULTS MCH 27.0 27.0 - 31.2 pg 05/12/2017 2:51 AM COMPUTATIONAL SCIENCES PROFESSOR [facility] [employer] HISTORICAL RESULTS MCHC 31.9 31.8 - 35.4 g/dl 05/12/2017 2:51 AM [facility] [employer] HISTORICAL RESULTS RDW 13.5 11.6 - 14.8 % 05/12/2017 2:51 AM COMPUTATIONAL SCIENCES PROFESSOR [facility] [employer] HISTORICAL RESULTS Plt Count 342 150 - 450 X10 3/ul 05/12/2017 2:51 AM COMPUTATIONAL SCIENCES PROFESSOR [facility] [employer] HISTORICAL RESULTS Comment:New Reference Range in use 05/01/17. MPV 10.2 7.4 - 10.4 fl 05/12/2017 2:51 AM [employer] [facility] HISTORICAL RESULTS Neut % 53.4 37.0 - 85.0 % Immature Gran % 0.5 0.0 - 3.0 % Lymph % 33.4 5.0 - 45.0 % [place] % 6.0 3.0 - 15.0 % Eos % 6.3 0.0 - 7.0 % 05/12/2017 2:51 AM COMPUTATIONAL SCIENCES PROFESSOR [facility] HISTORICAL RESULTS Baso % 0.4 0.0 - 2.0 % 05/12/2017 2:51 AM COMPUTATIONAL SCIENCES PROFESSOR [facility] HISTORICAL RESULTS Absolute Neuts (auto) 7.1 1.7 - 8.7 x10 3/ul 05/12/2017 2:51 AM [employer] [facility] HISTORICAL RESULTS Immature Gran # 0.1 0.0 - 0.3 x10 3/ul 05/12/2017 2:51 AM [employer] [facility] HISTORICAL RESULTS Absolute Lymphs (auto) 4.4 0.2 - 4.6 x10 3/ul 05/12/2017 2:51 AM COMPUTATIONAL SCIENCES PROFESSOR [facility] HISTORICAL RESULTS Absolute Monos (auto) 0.8 0.1 - 1.5 x10 3/ul 05/12/2017 2:51 AM [employer] [facility] HISTORICAL RESULTS Absolute Eos (auto) 0.8(H) 0.0 - 0.7 x10 3/ul 05/12/2017 2:51 AM [employer] [facility] HISTORICAL RESULTS Absolute Basos (auto) 0.1 0.0 - 0.2 x10 3/ul 05/12/2017 2:51 AM [employer] [facility] HISTORICAL RESULTS Nucleat RBC Rel Count 0.0 0 - 3 #/100WBC Absolute Nucleated RBC 0.00 x10 3/ul 05/12/2017 2:51 AM [employer] [facility] [employer] [facility] HISTORICAL RESULTS Absolute Neutrophils 7200 200 - 8000 /ul 05/12/2017 2:51 AM [employer] [facility] [employer] [facility] HISTORICAL RESULTS 05/12/2017 2:34 AM COMPUTATIONAL SCIENCES PROFESSOR 05/12/2017 2:45 AM COMPUTATIONAL SCIENCES PROFESSOR us Arnulfo Duncan Casillas MD LAB BLOOD ORDERABLES Final Result [facility] HISTORICAL RESULTS * (ABNORMAL) Urinalysis, macro and micro (05/12/2017 1:55 AM COMPUTATIONAL SCIENCES PROFESSOR) Ur Collection Type CLEAN CATCH Urine Color YELLOW YELLOW Urine Clarity CLEAR CLEAR Urine Glucose (UA) NORMAL NORMAL mg/dL Urine Bilirubin NEGATIVE NEGATIVE mg/dl Urine Ketones NEGATIVE NEGATIVE mg/dL Ur Specific [place] 1.015 1.005 - 1.025 Urine Blood 0.2(H) NEGATIVE mg/dl Urine pH 6.0 5.0 - 8.0 Urine Protein NEGATIVE NEGATIVE mg/dL Urine Urobilinogen NORMAL NORMAL mg/dL Urine Nitrite NEGATIVE NEGATIVE Ur Leukocyte Esterase 25(H) NEGATIVE Reanna/ul Ur Microscopic Review Indicated or Ordered Urine RBC 7 0 - 2 /HPF Urine WBC 1 0 - 2 /HPF Urine Bacteria Few /HPF 05/12/2017 2:10 AM COMPUTATIONAL SCIENCES PROFESSOR [facility] HISTORICAL RESULTS Ur Squamous Epith Cells Rare /LPF 05/12/2017 2:10 AM COMPUTATIONAL SCIENCES PROFESSOR [facility] HISTORICAL RESULTS 05/12/2017 1:55 AM COMPUTATIONAL SCIENCES PROFESSOR 05/12/2017 2:01 AM COMPUTATIONAL SCIENCES PROFESSOR Narrative [facility] HISTORICAL RESULTS - 05/12/2017 2:10 AM COMPUTATIONAL SCIENCES PROFESSOR us Arnulfo Duncan Casillas MD LAB URINE ORDERABLES Final Result [facility] HISTORICAL RESULTS * CT Abdomen Pelvis W Contrast (05/12/2017 12:00 AM COMPUTATIONAL SCIENCES PROFESSOR) Anatomical Region Laterality Modality Body N/A Computed Tomogra phy 05/12/2017 Impressions 05/12/2017 4:33 AM COMPUTATIONAL SCIENCES PROFESSOR ??Gallstones including a 1 cm stone, which appears to be in the cystic duct. ??There is no gallbladder wall thickening or pericholecystic fat stranding at this time. ??If there is a clinical suspicion of acute cholecystitis, correlation with Pineda sign and/or hepatobiliary scintigraphy scan is recommended. THIS IS AN ELECTRONICALLY VERIFIED FINAL REPORT 05/12/2017 4:30 AM - Electronically signed by Gian Beebe MA: TAY D: ??05/12/2017 4:30 AM T: ??05/12/2017 4:30 AM Report ID: [id number] Reading Location: ??[id number] [EOD] Narrative 05/12/2017 4:33 AM COMPUTATIONAL SCIENCES PROFESSOR EXAM DESCRIPTION: ??CT Abd/Pelvis W IV Contrast COMPLETED DATE/TIME: ??05/12/2017 3:15 am REASON FOR STUDY: ??Mid back pain starting at 12:30 a.m.. COMPARISON: ??None available. TECHNIQUE: ??CT scan of the abdomen and pelvis performed with intravenous contrast using helical scanning technique with dynamic intravenous contrast injection. Reconstructed coronal and sagittal MPR images reviewed. All images stored on PACS. 3D rendering was not performed. Automated exposure control was used as a dose optimization technique for this examination. CONTRAST TYPE/DOSE: ??80 ml of Optiray 350 contrast were intravenously injected at the right hand IV. FINDINGS: ABDOMEN/PELVIS: LOWER CHEST: No significant pulmonary abnormalities. No effusion. LIVER: Normal size. ??No mass. No cysts. GALLBLADDER: There is a 1.2 x 0.9 cm oval high density in the gallbladder neck, which may represent a stone. ??There is another 1.0 x 1.0 cm stone, which appears to be in the cystic duct on axial image 46 and coronal image 59. ??No wall thickening or inflammatory changes. BILE DUCTS: No intrahepatic or extrahepatic ductal dilatation. SPLEEN: Normal size. ??No focal lesions. PANCREAS: No masses. No significant calcifications. No adjacent inflammation or peripancreatic fluid collections. Pancreatic duct not dilated. ADRENALS: Normal. KIDNEYS/: No solid masses. No cysts. No stones. No hydronephrosis or hydroureter. ??Symmetric enhancement. Normal bladder. GI: No dilated bowel loops. No wall thickening. Normal appendix best seen on axial image 118. ??No diverticulosis. PERITONEUM/RETROPERITONEUM: No ascites. No free air. No adenopathy. REPRODUCTIVE: No significant abnormality. VASCULATURE: No abdominal aortic aneurysm. MUSCULOSKELETAL: No acute findings. No hernias. Procedure Note Provider, MD Alejandro - 08/29/2020 EXAM DESCRIPTION: CT Abd/Pelvis W IV Contrast COMPLETED DATE/TIME: 05/12/2017 3:15 am REASON FOR STUDY: Mid back pain starting at 12:30 a.m.. COMPARISON: None available. TECHNIQUE: CT scan of the abdomen and pelvis performed with intravenous contrast using helical scanning technique with dynamic intravenouscontrast injection. Reconstructed coronal and sagittal MPR images reviewed. Allimages stored on PACS. 3D rendering was not performed. Automated exposure control was used as adose optimization technique for this examination. CONTRAST TYPE/DOSE: 80 ml of Optiray 350 contrast were intravenouslyinjected at the right hand IV. FINDINGS: ABDOMEN/PELVIS: LOWER CHEST: No significant pulmonary abnormalities. No effusion. LIVER: Normal size. No mass. No cysts. GALLBLADDER: There is a 1.2 x 0.9 cm oval high density in the gallbladder neck, which may represent a stone. There is another 1.0 x 1.0 cm stone,which appears to be in the cystic duct on axial image 46 and coronal image 59.No wall thickening or inflammatory changes. BILE DUCTS: No intrahepatic or extrahepatic ductal dilatation. SPLEEN: Normal size. No focal lesions. PANCREAS: No masses. No significant calcifications. No adjacentinflammation or peripancreatic fluid collections. Pancreatic duct not dilated. ADRENALS: Normal. KIDNEYS/: No solid masses. No cysts. No stones. No hydronephrosis or hydroureter. Symmetric enhancement. Normal bladder. GI: No dilated bowel loops. No wall thickening. Normal appendix best seenon axial image 118. No diverticulosis. PERITONEUM/RETROPERITONEUM: No ascites. No free air. No adenopathy. REPRODUCTIVE: No significant abnormality. VASCULATURE: No abdominal aortic aneurysm. MUSCULOSKELETAL: No acute findings. No hernias. IMPRESSION: Gallstones including a 1 cm stone, which appears to be in the cystic duct. There is no gallbladder wall thickening or pericholecysticfat stranding at this time. If there is a clinical suspicion of acute cholecystitis, correlation with Pineda sign and/or hepatobiliaryscintigraphy scan is recommended. THIS IS AN ELECTRONICALLY VERIFIED FINAL REPORT 05/12/2017 4:30 AM - Electronically signed by Gian Beebe MA: TAY Report ID: [id number] Reading Location: [place] [id number] [EOD] Arnulfo Duncan Casillas MD IM CT PROCEDURES Final Res ult * CTA Chest W IV Contrast - PE (05/12/2017 12:00 AM COMPUTATIONAL SCIENCES PROFESSOR) Anatomical Region Laterality Modality Body N/A Computed Tomogra phy 05/12/2017 Impressions 05/12/2017 4:46 AM COMPUTATIONAL SCIENCES PROFESSOR ??No acute pulmonary embolus. ??No active chest disease. Automated exposure control was used as a dose optimization technique for this examination. THIS IS AN ELECTRONICALLY VERIFIED REPORT 05/12/2017 4:42 AM: ??Ankur Greenwood M.D. ?? Ankur Greenwood M.D. RN:michael 04:42 AM 04:42 AM NOR [EOD] Narrative 05/12/2017 4:46 [address]ES [address]ESSOR [address] CHEST WITH IV CONTRAST FOR ACUTE PULMONARY EMBOLUS. HISTORY: ??Chest and mid back pain onset at 00:30 this morning, with concern for pulmonary thromboembolic disease. FINDINGS: ??CT study of the chest was performed, using the pulmonary embolus protocol after uneventful IV contrast administration of IV contrast via venous catheter without adverse reaction. 3-D Volumetric MIP images were created and reviewed. There is no acute pulmonary embolus. ??There is no infiltrate or effusion. ?? There is no mediastinal or hilar adenopathy. ??There is no pericardial effusion. ??The upper abdomen is unremarkable. Procedure Note Provider, MD Alejandro - 08/29/2020 CT CHEST WITH IV CONTRAST FOR ACUTE PULMONARY EMBOLUS. HISTORY: Chest and mid back pain onset at 00:30 this morning, withconcern for pulmonary thromboembolic disease. FINDINGS: CT study of the chest was performed, using the pulmonaryembolus protocol after uneventful IV contrast administration of IV contrast viavenous catheter without adverse reaction. 3-D Volumetric MIP images were createdand reviewed. There is no acute pulmonary embolus. There is no infiltrate or effusion. There is no mediastinal or hilar adenopathy. There is no pericardial effusion. The upper abdomen is unremarkable. IMPRESSION: No acute pulmonary embolus. No active chest disease. Automated exposure control was used as a dose optimization technique forthis examination. THIS IS AN ELECTRONICALLY VERIFIED REPORT 05/12/2017 4:42 AM: Ankur Greenwood M.D. Ankur Greenwood M.D. RN:rn 04:42 AM 04:42 AM NOR [EOD] Arnulfo Duncan Casillas MD IMG CT PROCEDURES Final Res ult documented in this encounter Visit Diagnoses Diagnosis Calculus of gallbladder without cholecystitis with obstruction Myalgia Unspecified myalgia and myositis documented in this encounter
--- OUTSIDE RECORDS SUMMARY | 2024-04-11 06:19 | XMS_ITS | Encounter Summary ---
Author Organization [facility] Address [address] [place] [address] Phone Care Team Providers Care Dry Mixer Name Role Phone Judy Fishman GUEST RELATIONS MANAGER Primary Care Provider + Reason for Visit * Consultation (Routine) - Closed Specialty Diagnoses / Procedures Referred By Mary roberson Referred To Contact Gastroenterology Diagnoses Chronic diarrhea Lb Roberson MD Phone: tel: fax: [facility] (All Locations) Referral ID Status Reason Start Date Expiration Date V isits Requested Visits Authorized [id number] Closed Specialty Services Required 08/26/2018 03/06/2020 99 [phone] Encounter Details Date Type Department Care Team (Late st Contact Info) Description 10/27/2018 8:00 AM CDT Office Visit [facility] Gastroenterology [facility] 8th [place] [address] [place] [address] Trent Severino MD [address] [place], [place] [id number] Chronic diarrhea Social History Tobacco Use Types Packs/Day Years Used Date Smoking Tobacco: Every Day Cigarettes Smokeless Tobacco: Never Alcohol Use Standard Drinks/Week Comments Yes 2 (1 standard drink = 0.6 oz pur e alcohol) Comments Unknown Sex and Gender Information Value Date Recorded Sex Assigned at Not on file Legal Sex Female 7:54 PM SLEDGER Gender Identity Not on file Sexual Orientation Not on file documented as of this encounter Last Filed Vital Signs Vital Sign Reading Time Taken Comments Blood Pressure 124/82 10/27/2018 8:28 AM CDT Pulse 66 10/27/2018 8:28 AM CDT Temperature 36.9 ??C (98.4 ??F) 10/27/2018 8:28 AM CD T Respiratory Rate - - Oxygen Saturation - - Inhaled Oxygen Concentration - - Weight 93.2 kg (205 lb 8 oz) 10/27/2018 8:28 AM CDT Height 157.5 cm (5' 2 ) 10/27/2018 8:28 AM CDT Body Mass Index 37.59 10/27/2018 8:28 AM CDT documented in this encounter Progress Notes * Casper Hinojosa MD - 10/27/2018 8:00 AM CDT Reason for visit: newly diagnose crohns disease. Present with her mother. Problem List: Patient Active Problem List Diagnosis ??? Crohn's colitis (CMS/HCC) ??? Obesity HPI: Liliana Peralta is a 28 y.o. [...] endorses that she is getting in February. No past medical history on file. Family [...] file Gets together: Not on file Attends [employer] service: Not on file Active member of [...] Outpatient Medications Medication Sig Dispense Refill ??? CHAVEZ 3-0.03 mg per tablet ??? budesonide EC (ENTOCORT EC) 3 mg 24 hr capsule 0 ??? cholestyramine (QUESTRAN) 4 gram packet MIX AND TK CNTS PO QD UTD 0 ??? metroNIDAZOLE (FLAGYL) 250 mg tablet TK 1 T QID 0 No current facility-administered medications for this visit. The new patient intake form was reviewed with the patient on 10/27/2018. Review of Systems: No significant ROS Physical Exam: BP 124/82 Pulse 66 Temp 36.9 ??C (98.4 ??F) Ht 157.5 cm (5' 2 ) Wt 93.2 kg (205 lb 8 oz) BMI 37.59 kg/m?? GENERAL: Well developed well nourished, in no acute distress. HEENT: Normocephalic atraumatic. Sclerae anicteric. NECK: Supple without lymphadenopathy or thyromegaly. LUNGS: Clear to auscultation bilaterally. No wheezes, rales, rhonchi. CARDIOVASCULAR: Regular rate and rhythm without murmurs. ABDOMEN: Soft, nondistended, nontender. Normoactive bowel sounds. No hepatosplenomegaly. EXTREMITIES: Noclubbing, cyanosis, edema. SKIN: No rashes or jaundice. Labs: Lab Results Component Value Date WBC 11.2 (H) 10/27/2018 HGB 12.4 10/27/2018 HCT 38.3 10/27/2018 MCV 82.5 10/27/2018 LABPLAT 340 10/27/2018 Lab Results Component Value Date GLUCOSE 87 10/27/2018 CALCIUM 9.3 10/27/2018 SODIUM 140 10/27/2018 POTASSIUM 4.4 10/27/2018 CO2 26 10/27/2018 CHLORIDE 106 10/27/2018 BUNSER 10 10/27/2018 CREATININE 0.69 10/27/2018 Lab Results Component Value Date ALT 22 10/27/2018 AST 17 10/27/2018 ALKPHOS 77 10/27/2018 BILITOT 0.2 10/27/2018 Lab Results Component Value Date IRON 82 10/27/2018 TIBC 459 (H) 10/27/2018 FERRITIN 58 10/27/2018 No results found for: OCCULTBLD No results found for: AMYLASE Lab Results Component Value Date LIPASE 39 05/12/2017 Lab Results Component Value Date HEPBCAB Nonreactive 10/27/2018 No results found for: AFP . Visit Diagnoses: 1. Chronic diarrhea Assessment/Plan: 28 year old female with chronic diarrhea with negative stool studies. Her colonoscopy showed mild chronic inflammation at the terminal ileum. She responded well to a tapered course of Entecort. 1- Chronic diarrhea: Has improved. Most likely secondary to Ileal crohn's. - We have discussed with her that crohn's disease is he most likely diagnosis, but we would have toget the slides here to get our Gi pathologist to read them and confirm. She was teary as she is getting soon And was concerned about how is this going to affect her fertility and lifestyle. We have explained that IBD should not prevent her from getting as long as her IBD is under control and she is not taking one the contraindicated medications (E.g MTX) during . We have also spoke to her about possible treatment options although we would get further imaging to characterize the extent of the lesion, as this would help us to determine the best option for treatment. - We plan to get the pathology slides to be read by our Gi pathologist - We will order inflammatory markers along routine and iron level. - We will do an MRE/CTE to classify disease extent. We will check with radiology about doing an MRE, as She had a previous metal screw in her ankle. Once we have all these results we will book her for a follow up appointment to discuss treatment options. STELLA Henson Gi fellow Cosigned by Trent Severino MD at 11/08/2018 9:40 PM CDT Associated attestation - Trent Severino MD - 11/08/2018 9:40 PM CDT I have seen and examined the patient. I agree with the findings and plan of care as documented in the resident/fellow's note. documented in this encounter Plan of Treatment Not on file documented as of this encounter Results * (ABNORMAL) Vitamin D 25 hydroxy (10/27/2018 10:04 AM CDT) Vitamin D 25-OH 17(L) 30 - 80 ng/mL [facility] Blood specimen (specimen) 10/27/2018 10:04 AM CDT 10/27/2018 10:23 AM CDT us Trent Severino MD LAB BLOOD ORDERABLES Final Re sult Performing Organization Address City/[facility] [place] [address] * Vitamin B12 (10/27/2018 10:04 AM CDT) Pathologist [facility] Vitamin B12 515 230 - 1,250 pg/mL [facility] Blood specimen (specimen) 10/27/2018 10:04 AM CDT 10/27/2018 10:23 AM CDT Trent Severino MD LAB BLOOD ORDERABLES Final Re sult Performing Organization Address [facility] [place] [address] * TPMT activity profile, RBC (10/27/2018 10:04 AM CDT) Pathologist [facility] 6-METHYLMERCAPTOPURI NE 3.83 3.00 - 6.66 [facility] 6-Methylmercaptopuri ne Riboside 6.75 5.04 - 9.57 [facility] 6-METHYLTHIOGUANINE RIBOSIDE 4.70 2.70 - 5.84 [facility] Interpretation,Comp See Footnote [facility] Comment: *Normal* In this whole blood sample, the profile of activity of thiopurine methyltransferase using three different substrates was normal or essentially normal. ADDITIONAL INFORMATION Liquid Chromatography-Tandem Mass Spectrometry (LC-MS/MS) This test was developed and its performance characteristics determined by [facility] in a manner consistent with CLIA requirements. This test has not been cleared or approved by the U.S. Food and Drug Administration. Reviewed by See Footnote [facility] Comment: RESULT: Kya Diaz M.D. Test Performed by: [address] [address] Blood specimen (specimen) 10/27/2018 10:04 AM CDT 10/27/2018 10:39 AM CDT us Trent Severino MD LAB BLOOD ORDERABLES Final Re sult [facility] Department [place] [address] * T-SPOT.TB (10/27/2018 10:04 AM CDT) T-SPOT.TB Negative Negative [facility] Comment: Limitations from the T-SPOT.TB Package Insert [...] with T-SPOT.TB test. T-Spot testing performed by [employer], [address] [place] [address]. [id number] A negative test result does not exclude [...] test. T-SPOT.TB Panel A Spot Count 0 [facility] T-SPOT.TB Panel B Spot Count 0 [facility] T-SPOT.TB Negative Control Passed [facility] T-SPOT.TB Positive Control Passed [facility] Blood specimen (specimen) 10/27/2018 10:04 AM CDT 10/27/2018 10:35 AM CDT Trent Severino MD LAB MICROBIOLOGY - GENERAL OR DERABLES Final Result [facility] Department [place] [address] * Lipid panel (10/27/2018 10:04 AM CDT) [facility] Signature Cholesterol 152 30 - 199 mg/dL [facility] Comment: Interpretive Data Ages < or [...] revised on 2017. Triglycerides 128 <=149 mg/dL [facility] Comment: Interpretive Data Ages < or = [...] revised on 2017. HDL 48 >=40 mg/dL [facility] Comment: Interpretive Data Ages < or = [...] 2017. LDL, calculated 78 <=129 mg/dL [facility] Comment: Interpretive Data Ages < or = [...] on 2017. Non-HDL Cholesterol 104 mg/dL [facility] Comment: Interpretive Data Ages [...] last revised on 2017. Chol/HDL ratio 3 [facility] Blood specimen (specimen) 10/27/2018 10:04 AM CDT 10/27/2018 10:23 AM CDT us Trent Severino MD LAB BLOOD ORDERABLES Final Re sult [facility] Department [place] [address] * (ABNORMAL) Iron profile w/ IBC (10/27/2018 10:04 AM CDT) Iron 82 35 - 145 mcg/dL [facility] TIBC 459(H) 250 - 400 mcg/dL [facility] Transferrin saturation 18(L) 20 - 50 % [facility] Blood specimen (specimen) 10/27/2018 10:04 AM CDT 10/27/2018 10:23 AM CDT Trent Severino MD LAB BLOOD ORDERABLES Final Re sult Performing Organization Address City/[facility]/ZIP Co de Phone Number [facility] Department [place] [address] * Hepatitis B Surface Antigen (10/27/2018 10:04 AM CDT) [facility] HepBsAg Nonreactive Nonreactive [facility] Blood specimen (specimen) 10/27/2018 10:04 AM CDT 10/27/2018 10:23 AM CDT Trent Severino MD LAB MICROBIOLOGY - GENERAL OR DERABLES Edited Result - Final Performing Organization Address [facility] Co de Phone Number [facility] Department [place] [address] * (ABNORMAL) Hepatitis B surface antibody (immune status) (10/27/2018 10:04 AM CDT) [facility] HBsAb (immune status) Reactive [facility] Comment: Interpretive Data A Negative Result indicates [...] index 61.8(H) 0.0 - 10.0 mIUnits/m L [facility] Blood specimen (specimen) 10/27/2018 10:04 AM CDT 10/27/2018 10:23 AM CDT Trent Severino MD LAB MICROBIOLOGY - GENERAL OR DERABLES Final Result Performing Organization Address [facility]/ZIP Co de Phone Number [facility] [place] [address] * Hepatitis B core antibody, total (10/27/2018 10:04 AM CDT) Hep B core IgG/IgM Nonreactive Nonreactive [facility] Blood specimen (specimen) 10/27/2018 10:04 AM CDT 10/27/2018 10:23 AM CDT Trent Severino MD LAB MICROBIOLOGY - GENERAL OR DERABLES Edited Result - Final Performing Organization Address [facility] Co de Phone Number [facility] Department [place] [address] * Folate (10/27/2018 10:04 AM CDT) Folic acid 11.0 >=5.0 ng/mL [facility] Blood specimen (specimen) 10/27/2018 10:04 AM CDT 10/27/2018 10:23 AM CDT Trent Severino MD LAB BLOOD ORDERABLES Final Re sult Performing Organization Address City/[facility]/ZIP Co de Phone Number [facility] [place] [address] * Ferritin (10/27/2018 10:04 AM CDT) Ferritin 58 15 - 150 ng/mL [facility] Blood specimen (specimen) 10/27/2018 10:04 AM CDT 10/27/2018 10:22 AM CDT Trent Severino MD LAB BLOOD ORDERABLES Final Re sult Performing Organization Address City/[facility]/ZIP Co de Phone Number [facility] [place] [address] * Erythrocyte sedimentation rate (10/27/2018 10:04 AM CDT) Pathologist [facility] Erythrocyte sedimentation rate 17 1 - 20 mm/hr [facility] Blood specimen (specimen) 10/27/2018 10:04 AM CDT 10/27/2018 10:22 AM CDT Trent Severino MD LAB BLOOD ORDERABLES Final Re sult Performing Organization Address [facility] Co de Phone Number [facility] [place] [address] * (ABNORMAL) CRP (acute phase) (10/27/2018 10:04 AM CDT) [facility] CRP 16.2(H) <=10.0 mg/L [facility] Blood specimen (specimen) 10/27/2018 10:04 AM CDT 10/27/2018 10:22 AM CDT Trent Severino MD LAB BLOOD ORDERABLES Final Re sult Performing Organization Address [facility] Co de Phone Number [facility] [place] [address] * Comprehensive metabolic panel (10/27/2018 10:04 AM CDT) Pathologist [facility] Sodium 140 135 - 145 mmol/L [facility] Potassium, pl 4.4 3.3 - 4.9 mmol/L [facility] Chloride 106 97 - 110 mmol/L [facility] CO2 26 22 - 32 mmol/L [facility] Anion gap 8 2 - 15 mmol/L [facility] BUN 10 8 - 25 mg/dL [facility] Creatinine 0.69 0.60 - 1.10 mg/dL [facility] Glucose 87 70 - 199 mg/dL [facility] Comment: Interpretive Data Fasting glucose [...] 2017. Calcium 9.3 8.5 - 10.3 mg/dL [facility] Bilirubin, total 0.2 0.1 - 1.2 mg/dL [facility] Protein, pl 7.8 6.5 - 8.5 g/dL [facility] Albumin 4.0 3.5 - 5.0 g/dL [facility] Alk phos 77 40 - 130 Units/L [facility] ALT 22 7 - 45 Units/L [facility] AST 17 10 - 45 Units/L [facility] Blood specimen (specimen) 10/27/2018 10:04 AM CDT 10/27/2018 10:22 AM CDT Trent Severino MD LAB BLOOD ORDERABLES Final Re sult [facility] Department [place] [address] * (ABNORMAL) CBC with auto differential (10/27/2018 10:04 AM CDT) WBC 11.2(H) 3.8 - 9.9 K/cumm [facility] Hgb 12.4 11.9 - 15.5 g/dL [facility] Hct 38.3 35.6 - 45.5 % [facility] Plt 340 150 - 400 K/cumm [facility] MPV 10.2 9.1 - 12.3 fL [facility] RBC 4.64 3.90 - 5.20 M/cumm [facility] MCV 82.5 81.3 - 96.4 fL [facility] MCH 26.7(L) 27.1 - 33.3 pg [facility] MCHC 32.4 32.3 - 35.7 g/dL [facility] RDW CV 14.3 11.1 - 14.9 % [facility] RDW SD 43.1 35.7 - 48.1 fL [facility] NRBC abs 0.00 0.00 - 0.01 K/cumm [facility] Blood specimen (specimen) 10/27/2018 10:04 AM CDT 10/27/2018 10:22 AM CDT Trent Severino MD LAB BLOOD ORDERABLES Final Re sult [facility] Department [place] [address] documented in this encounter Visit Diagnoses Diagnosis Chronic diarrhea Diarrhea documented in this encounter Orders Outpatient Referral Count Last Ordered Date Fir st Ordered Date AMB REFERRAL TO GASTROENTEROLOGY 1 10/28/19 19 documented in this encounter Care Teams Dry Mixer Relationship Specialty Start Date End Date Judy Fishman NP [address] [address] PCP - General 07/31/18 documented as of this encounter
--- OUTSIDE RECORDS SUMMARY | 2024-04-11 06:19 | XMS_ITS | Encounter Summary ---
Author Organization [facility] Address [address] [place] [address] Phone Care Team Providers Care Batch Or Continuous Still Operator Name Role Phone Judy Fishman SHIP/REC/DOC CONTROL Primary Care Provider + Encounter Details Date Type Department Care Team (Late st Contact Info) Description 09/03/2018 Telephone [facility] Gastroenterology [address] [place] [address] 8th [place] [address] [place] [phone] Dianelys Espinoza Social History Tobacco Use Types Packs/Day Years Used Date Smoking Tobacco: Never Assessed Comments Unknown Sex and Gender Information Value Date Recorded Sex Assigned at Not on file Legal Sex Female 7:54 PM CASEWORKER [employer] Gender Identity Not on file Sexual Orientation Not on file documented as of this encounter Miscellaneous Notes * Telephone Encounter - Dianelys Espinoza - 09/03/2018 11:35 AM CDT LMOR to schedule with IBD physician. Pt has inflammation in small bowel on small bowel series and elevated CRP. Dr. Roberson's office asked for us to expedite with IBD instead of general GI whosefirst available was May 2019. documented in this encounter Plan of Treatment Not on file documented as of this encounter Visit Diagnoses Not on filedocumented in this encounter Care Teams Batch Or Continuous Still Operator Relationship Specialty Start Date End Date Judy Fishman, BINU [address] [address] PCP - General 07/31/18 documented as of this encounter
--- OUTSIDE RECORDS SUMMARY | 2024-04-11 06:19 | XMS_ITS | Encounter Summary ---
Author Organization [facility] Address [address] [place] [address] Phone Care Team Providers Care [employer] French Teacher Name Role Phone Judy Fishman SECURITY INSTALLATION TECHNICIAN Primary Care Provider + Encounter Details Date Type Department Care Team (Late st Contact Info) Description 11/13/2018 Orders Only [facility] Gastroenterology [address] [facility] 8th [place] [address] [place] [address] Trent Severino MD [address] [place], [place] [id number] Iron deficiency anemia due to chronic blood loss (Primary Dx) Social History Tobacco Use Types Packs/Day Years Used Date Smoking Tobacco: Every Day Cigarettes Smokeless Tobacco: Never Alcohol Use Standard Drinks/Week Comments Yes 2 (1 standard drink = 0.6 oz pur e alcohol) Comments Unknown Sex and Gender Information Value Date Recorded Sex Assigned at Not on file Legal Sex Female 7:54 PM DRESS DRAPER Gender Identity Not on file Sexual Orientation Not on file documented as of this encounter Ordered Prescriptions Prescription Sig Dispense Quantity Refills Last Filled Start Date End Date cholecalciferol (VITAMIN D-3) 50,000 unit capsuleIndications :Vitamin D Deficiency Take 1 capsule (50,000 Units total) by mouth once a week 12 capsule 3 11/13/2018 0 documented in this encounter Progress Notes * Abiola Silverman RN - 11/13/2018 12:49 PM CDT lvm informing pt of low vitamin d, low iron, higher inflammatory markers and rov needed after mre. documented in this encounter Plan of Treatment Not on file documented as of this encounter Visit Diagnoses Diagnosis Iron deficiency anemia due to chronic blood loss- Primary Iron deficiency anemia secondary to blood loss (chronic) documented in this encounter Care Teams High School French Teacher Relationship Specialty Start Date End Date Judy Fishman NP [address] [address] PCP - General 07/31/18 documented as of this encounter
--- OUTSIDE RECORDS SUMMARY | 2024-04-11 06:19 | XMS_ITS | Encounter Summary ---
Author Organization [facility] Address [address] [place] [address] Phone Care Team Providers Care Senior Web Designer Name Role Phone Judy Fishman CATERING CHEF Primary Care Provider + Reason for Referral * Diagnostic Imaging (Routine) - Closed Specialty Diagnoses / Procedures Referred By Mary roberson Referred To Contact Radiology Diagnoses Chronic diarrhea Procedures MRI Abdomen Enterography W WO Contrast Trent Severino MD Phone: tel: fax: [address] [address] Referral ID Status Reason Start Date Expiration Date Visits Re quested Visits Authorized [id number] Closed 11/06/2018 12/21/2018 1 1 Encounter Details Date Type Department Care Team (Late st Contact Info) Description 11/02/2018 Orders Only [facility] Gastroenterology [address] [facility] Medicine 8th [place] [address] [place] [address] Ivonne Montiel CMA Chronic diarrhea (Primary Dx) Social History Tobacco Use Types Packs/Day Years Used Date Smoking Tobacco: Every Day Cigarettes Smokeless Tobacco: Never Alcohol Use Standard Drinks/Week Comments Yes 2 (1 standard drink = 0.6 oz pur e alcohol) Comments Unknown Sex and Gender Information Value Date Recorded Sex Assigned at Not on file Legal Sex Female 7:54 PM LIGHT OIL OPERATOR Gender Identity Not on file Sexual [...] by: Jack Patten M.D. Trent Severino MD IMG MRI PROCEDURES Final Resu lt documented in this encounter Visit Diagnoses Diagnosis Chronic diarrhea- Primary Diarrhea Chronic diarrhea Diarrhea documented in this encounter Care Teams Senior Web Designer Relationship Specialty Start Date End Date Judy Fishman NP [address] [address] PCP - General 07/31/18 documented as of this encounter
--- OUTSIDE RECORDS SUMMARY | 2024-04-11 06:19 | XMS_ITS | Encounter Summary ---
Author Organization [facility] Healthcare Address [address] [place] [address] Care Team Providers Care Pot Runner Name Role Phone Judy Fishman INTERMEDIATE DESIGNER Primary Care Provider + Encounter Details Date Type Department Care Team (Late st Contact Info) Description 07/31/2018 8:09 AM CDT - 07/31/2018 9:14 AM CDT Hospital Encounter [facility]IM Lb Roberson MD [address] [facility] [address] [place] [address] Social History Tobacco Use Types Packs/Day Years Used Date Smoking Tobacco: Never Assessed Comments Unknown Sex and Gender Information Value Date Recorded Sex Assigned at Not on file 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 Gender Identity Not on file Sexual Orientation Not on file documented as of this encounter Medications at Time of Discharge cholestyramine (QUESTRAN) 4 gram packet MIX AND TK CNTS PO QD UTD 0 07/20/2018 06/15/2019 documented as of this encounter Plan of Treatment Not on file documented as of this encounter Procedures Procedure Name Priority Date/Time Associated Diagnosis Comments CT ABDOMEN PELVIS W CONTRAST 07/31/2018 12:00 AM CDT documented in this encounter Results * CT Abdomen Pelvis W Contrast (07/31/2018 12:00 AM CDT) Anatomical Region Laterality Modality Body N/A Computed Tomogra phy 07/31/2018 12:4 2 PM CDT Narrative 07/31/2018 12:46 PM CDT Patient Name: LILIANA PRINGLE ?Ordering Dr: Lb Roberson MD ?? D.O.B: 1990 ? Exam Date: 07/31/18 ?? 0000 ?? Age: 28 ?Sex: Female ? MR#: [id number] ?? Loc: ? RADIOLOGY REPORT ?? Order #[id number] ?? CT Scan ? CT Abd/Pelvis W IV Contrast ? Signed ?? EXAM DESCRIPTION: ??CT Abd/Pelvis W IV Contrast ? REASON FOR STUDY: ??Diarrhea for 8 weeks ? TECHNIQUE: ??CT scan of the abdomen and pelvis performed with intravenous and ?? with oral contrast using helical scanning technique with dynamic intravenous ?? contrast injection. Reconstructed coronal and sagittal MPR images reviewed. ?? All images stored on PACS. ? Automated exposure control was used as a dose optimization technique for this ?? examination. ? CONTRAST TYPE/DOSE: ?? PATIENT RECIEVED 100CC OPTIRAY 350 INJECTED INTO RAC ? COMPARISON: ??05/12/2017 ? FINDINGS: ? LOWER CHEST: No significant pulmonary abnormalities. No effusion. ? LIVER: Normal size. ??No identified cystic or solid masses. ? GALLBLADDER: Surgically absent. ? BILE DUCTS: No intrahepatic or extrahepatic ductal dilatation. ? SPLEEN: Normal size. ??No focal lesions. ? PANCREAS: No identified cystic or solid masses. No significant calcifications. ?? No adjacent inflammation or peripancreatic fluid collections. Pancreatic duct ?? not dilated. ? ADRENALS: Normal. ? KIDNEYS/URINARY TRACT: No identified significant cystic or solid masses. No ?? visualized stones. No hydronephrosis or hydroureter. Symmetric enhancement. ?? Urinary bladder is unremarkable. ? GI: No dilated bowel loops. No obvious wall thickening. ??Normal appendix. ??No ?? significant diverticular disease. ? PERITONEUM: No ascites or free air. ? RETROPERITONEUM: No mass or adenopathy. ? REPRODUCTIVE: No significant abnormality. ? VASCULATURE: No abdominal aortic aneurysm. ? MUSCULOSKELETAL: No significant abnormality. ? OTHER: No other abnormality. ? IMPRESSION: ??Cholecystectomy changes. ??No acute inflammation or abnormality ?? identified within the small bowel specifically. ? THIS IS AN ELECTRONICALLY VERIFIED FINAL REPORT ?? 07/31/2018 12:46 PM - Electronically signed by Hiren Juares M.D. ?? Hiren Juares M.D. ? [place] ?? D: ??07/31/2018 12:46 PM ?? T: ? Report ID: [id number] ?? Reading Location: ??[id number] ? REPORT ELECTRONICALLY SIGNED IN OTHER VENDOR SYSTEM ?? Resulting Agency Comment O Procedure Note Hiren Juares MD - 07/31/2018 Patient Name: YARYLILIANA Dr: Lb Roberson MD D.O.B: 1990 Exam Date: 07/31/18 0000 Age: 28 Sex: Female MR#: [id number] Loc: RADIOLOGY REPORT Order #[id number] CT Scan CT Abd/Pelvis W IV Contrast Signed EXAM DESCRIPTION: CT Abd/Pelvis W IV Contrast REASON FOR STUDY: Diarrhea for 8 weeks TECHNIQUE: CT scan of the abdomen and pelvis performed with intravenousand with oral contrast using helical scanning technique with dynamicintravenous contrast injection. Reconstructed coronal and sagittal MPR imagesreviewed. All images stored on PACS. Automated exposure control was used as a dose optimization technique forthis examination. CONTRAST TYPE/DOSE: PATIENT RECIEVED 100CC OPTIRAY 350 INJECTED INTORAC COMPARISON: 05/12/2017 FINDINGS: LOWER CHEST: No significant pulmonary abnormalities. No effusion. LIVER: Normal size. No identified cystic or solid masses. GALLBLADDER: Surgically absent. BILE DUCTS: No intrahepatic or extrahepatic ductal dilatation. SPLEEN: Normal size. No focal lesions. PANCREAS: No identified cystic or solid masses. No significantcalcifications. No adjacent inflammation or peripancreatic fluid collections. Pancreaticduct not dilated. ADRENALS: Normal. KIDNEYS/URINARY TRACT: No identified significant cystic or solid masses.No visualized stones. No hydronephrosis or hydroureter. Symmetricenhancement. Urinary bladder is unremarkable. GI: No dilated bowel loops. No obvious wall thickening. Normal appendix.No significant diverticular disease. PERITONEUM: No ascites or free air. RETROPERITONEUM: No mass or adenopathy. REPRODUCTIVE: No significant abnormality. VASCULATURE: No abdominal aortic aneurysm. MUSCULOSKELETAL: No significant abnormality. OTHER: No other abnormality. IMPRESSION: Cholecystectomy changes. No acute inflammation orabnormality identified within the small bowel specifically. THIS IS AN ELECTRONICALLY VERIFIED FINAL REPORT 07/31/2018 12:46 PM - Electronically signed by Hiren LAKHANI T: Report ID: [id number] Reading Location: [id number] REPORT ELECTRONICALLY SIGNED IN OTHER VENDOR SYSTEM Lb Roberson MD IM CT PROCEDURES Final Result documented in this encounter Visit Diagnoses Not on filedocumented in this encounter Care Teams Pot Runner Relationship Specialty Start Date End Date Judy Fishman NP [address] [phone] PCP - General 07/31/18 documented as of this encounter
--- OUTSIDE RECORDS SUMMARY | 2024-04-11 06:19 | XMS_ITS | Encounter Summary ---
Author Organization [facility] Address [address] [place] [address] Phone Care Team Providers Care Technical Asst Name Role Phone Judy Fishman HOT MILL TIN ROLLER Primary Care Provider + Encounter Details Date Type Department Care Team (Late st Contact Info) Description 10/26/2018 Orders Only [facility] Gastroenterology [address] [facility] 8th [place] [address] [place] [address] Dayron Guzman MA Social History Tobacco Use Types Packs/Day Years Used Date Smoking Tobacco: Never Assessed Comments Unknown Sex and Gender Information Value Date Recorded Sex Assigned at Not on file 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 metroNIDAZOLE (FLAGYL) 250 mg tablet TK 1 T QID 0 08/03/2018 06/15/2019 CHAVEZ 3-0.03 mg per tablet 08/06/2018 06/15/2019 cholestyramine (QUESTRAN) 4 gram packet MIX AND TK CNTS PO QD UTD 0 07/20/2018 06/15/2019 budesonide EC (ENTOCORT EC) 3 mg 24 hr capsule 0 08/31/2018 06/15/19 20 added in this encounter Care Teams Technical Asst Relationship Specialty Start Date End Date Judy Fishman NP [address] [address] PCP - General 07/31/18 documented as of this encounter
--- OUTSIDE RECORDS SUMMARY | 2024-04-11 06:19 | XMS_ITS | Encounter Summary ---
Author Organization [facility] Address [address] [place] [address] Phone Care Team Providers Care Leadership Program Internship Name Role Phone Kye Judy Brittani SCOUT LEASER Primary Care Provider + Encounter Details Date Type Department Care Team (Late st Contact Info) Description 11/02/2018 Documentation [facility] Gastroenterology [address] 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 Patient is scheduled for MRE on 11/18 at 4pm. Appt reminder card mailed to patient. Abiola Silverman, RN Ivonne Montiel MA ?? Pt needs to be scheduled for a MRE (MRI abdomen (enterography) with and without contrast, both oraland IV). Pt has hx of ankle surgery with plate and screws from 08/09/08. So far, all documentation that I have received regarding that surgery shows that the hardware is MRI compatible. documented in this encounter Plan of Treatment Not on file documented as of this encounter Visit Diagnoses Not on filedocumented in this encounter Care Teams Leadership Program Internship Relationship Specialty Start Date End Date Judy Fishman NP [address] [id number] PCP - General 07/31/18 documented as of this encounter
--- OUTSIDE RECORDS SUMMARY | 2024-04-11 06:19 | XMS_ITS | Encounter Summary ---
Author Organization [facility] Address [address] [place] [address] Phone Care Team Providers Care Panelboard Operator Name Role Phone Judy Fishman PHYSICAL THERAPY TECHNICIAN Primary Care Provider + Encounter Details Date Type Department Care Team (Late st Contact Info) Description 11/16/2018 Telephone [facility] Gastroenterology [address] [place] [address] 8th [place] [address] [place] [phone] Abiola Silverman RN Social History Tobacco Use Types Packs/Day Years Used Date Smoking Tobacco: Every Day Cigarettes Smokeless Tobacco: Never Alcohol Use Standard Drinks/Week Comments Yes 2 (1 standard drink = 0.6 oz pur e alcohol) Comments Unknown Sex and Gender Information Value Date Recorded Sex Assigned at Not on file 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 Provided number to call to schedule. documented in this encounter Plan of Treatment Not on file documented as of this encounter Visit Diagnoses Not on filedocumented in this encounter Care Teams Panelboard Operator Relationship Specialty Start Date End Date Judy Fishman, BINU [address] [address] PCP - General 07/31/18 documented as of this encounter
== END 2024-04-04 09:10 | disposition home or self-care (01) ==
PROVIDERS: Emergency Provider Registered Nurse; PCP Nurse Practitioner Family
DX: J02.0 Streptococcal pharyngitis (principal); Z87.891 Personal history of nicotine dependence; K50.90 Crohn's disease, unspecified, without complications; E66.9 Obesity, unspecified; Z68.41 Body mass index [BMI] 40.0-44.9, adult
CPT/HCPCS: 87880; 99213; G0463

== ENCOUNTER 2024-05-30 18:16 | Emergency (ER) | payer OTHER, SELFPAY ==
--- OUTSIDE RECORDS SUMMARY | 2024-05-30 18:18 | XMS_ITS | Data Portability ---
Author Organization [place] - [facility] [employer], Main Office Address [address] [place] [address] Assessment No assessment recorded. Plan of Treatment [...] By Organization Details Last Modified Time 11/22/2022 [id number] 6 mo fu crohn's, htn, etc. [email or web address] [...] Care in Diabe maribell(A DA). Not Available [address], [address], 04/13/2022 06:48:05 04/12/20 22 04/13/2022 TSH W/REF ADAL TO FT4 TSH w/reflex to FT4 0.53 mIU/L normal Refer ence Range > or = 20 Years 0.40- 4.50 Pregn hermann Range s First trime ster 0.26- 2.66 Secon d trime ster 0.55- 2.73 Third trime ster 0.43- 2.91 Not Available [address], [address], 04/13/2022 06:48:04 04/12/20 22 04/13/2022 CBC (INCL UDES DIFF/ PLT) white blood cell count 9.9 thous and/u L 3.8-10 .8 normal Not Available [address], [address], 04/13/2022 06:48:04 04/12/20 22 04/13/2022 CBC (INCL UDES DIFF/ PLT) red blood cell count 4.57 dalila on/uL 3.80-5 .10 normal Not Available [address], [address], 04/13/2022 06:48:04 04/12/20 22 04/13/2022 CBC (INCL UDES DIFF/ PLT) hemoglobin 11.7 g/dL 11.7-1 5.5 normal Not Available [address], [address], 04/13/2022 06:48:04 04/12/20 22 04/13/2022 CBC (INCL UDES DIFF/ PLT) hematocrit 36.6 % 35.0-4 5.0 normal Not Available [address], [address], 04/13/2022 06:48:04 04/12/20 22 04/13/2022 CBC (INCL UDES DIFF/ PLT) MCV 80.1 fL 80.0-1 00.0 normal Not Available [address], [address], 04/13/2022 06:48:04 04/12/20 22 04/13/2022 CBC (INCL UDES DIFF/ PLT) MCH 25.6 pg 27.0-3 3.0 low Not Available [address], [address], 04/13/2022 06:48:04 04/12/20 22 04/13/2022 CBC (INCL UDES DIFF/ PLT) MCHC 32.0 g/dL 32.0-3 6.0 normal Not Available [address], [address], 04/13/2022 06:48:04 04/12/20 22 04/13/2022 CBC (INCL UDES DIFF/ PLT) RDW 15.1 % 11.0-1 5.0 high Not Available [address], [address], 04/13/2022 06:48:04 04/12/20 22 04/13/2022 CBC (INCL UDES DIFF/ PLT) platelet count 354 thous and/u L 140-40 0 normal Not Available [address], [address], 04/13/2022 06:48:04 04/12/20 22 04/13/2022 CBC (INCL UDES DIFF/ PLT) MPV 10.3 fL 7.5-12 .5 normal Not Available [address], [address], 04/13/2022 06:48:04 04/12/20 22 04/13/2022 CBC (INCL UDES DIFF/ PLT) absolute neutrophils 6475 cells /uL 1500-7 800 normal Not Available [address], [address], 04/13/2022 06:48:04 04/12/20 22 04/13/2022 CBC (INCL UDES DIFF/ PLT) absolute lymphocytes 2604 cells /uL 850-39 00 normal Not Available [address], [address], 04/13/2022 06:48:04 04/12/20 22 04/13/2022 CBC (INCL UDES DIFF/ PLT) absolute monocytes 465 cells /uL 200-95 0 normal Not Available [address], [address], 04/13/2022 06:48:04 04/12/20 22 04/13/2022 CBC (INCL UDES DIFF/ PLT) absolute eosinophils 317 cells /uL 15-500 normal Not Available [address], [address], 04/13/2022 06:48:04 04/12/20 22 04/13/2022 CBC (INCL UDES DIFF/ PLT) absolute basophils 40 cells /uL 0-200 normal Not Available [address], [address], 04/13/2022 06:48:04 04/12/20 22 04/13/2022 CBC (INCL UDES DIFF/ PLT) neutrophils 65.4 % normal Not Available [address], [address], 04/13/2022 06:48:04 04/12/20 22 04/13/2022 CBC (INCL UDES DIFF/ PLT) lymphocytes 26.3 % normal Not Available [address], [address], 04/13/2022 06:48:04 04/12/20 22 04/13/2022 CBC (INCL UDES DIFF/ PLT) monocytes 4.7 % normal Not Available [address], [address], 04/13/2022 06:48:04 04/12/20 22 04/13/2022 CBC (INCL UDES DIFF/ PLT) eosinophils 3.2 % normal Not Available [address], [address], 04/13/2022 06:48:04 04/12/20 22 04/13/2022 CBC (INCL UDES DIFF/ PLT) basophils 0.4 % normal Not Available [address], [address], 04/13/2022 06:48:04 04/12/20 22 04/13/2022 COMPR EHENS MONSTER METAB OLIC PANEL glucose 93 mg/dL 65-99 normal Fasti ng refer ence inter vanessa Not Available [address], [address], 04/13/2022 06:48:03 04/12/20 22 04/13/2022 COMPR EHENS MONSTER METAB OLIC PANEL urea nitrogen (BUN) 10 mg/dL 7-25 normal Not Available [address], [address], 04/13/2022 06:48:03 04/12/20 22 04/13/2022 COMPR EHENS MONSTER METAB OLIC PANEL creatinine 0.59 mg/dL 0.50-0 .96 normal Not Available [address], [address], 04/13/2022 06:48:03 04/12/20 22 04/13/2022 COMPR EHENS [...] kdoqi /gfr% 5Fcal culat or Not Available [address] [address] [place], [address], 04/13/2022 06:48:03 04/12/20 22 04/13/2022 COMPR EHENS MONSTER METAB OLIC PANEL BUN/creatini ne ratio not applic able (calc ) 6-22 Not Available [address], [address], 04/13/2022 06:48:03 04/12/20 22 04/13/2022 COMPR EHENS MONSTER METAB OLIC PANEL sodium 141 mmol/ L 135-14 6 normal Not Available [address], [address], 04/13/2022 06:48:03 04/12/20 22 04/13/2022 COMPR EHENS MONSTER METAB OLIC PANEL potassium 4.4 mmol/ L 3.5-5. 3 normal Not Available [address], [address], 04/13/2022 06:48:03 04/12/20 22 04/13/2022 COMPR EHENS MONSTER METAB OLIC PANEL chloride 107 mmol/ L 98-110 normal Not Available [address], [address], 04/13/2022 06:48:03 04/12/20 22 04/13/2022 COMPR EHENS MONSTER METAB OLIC PANEL carbon dioxide 27 mmol/ L 20-32 normal Not Available [address] [address] [place], [address], 04/13/2022 06:48:03 04/12/20 22 04/13/2022 COMPR EHENS MONSTER METAB OLIC PANEL calcium 8.9 mg/dL 8.6-10 .2 normal Not Available [address], [address], 04/13/2022 06:48:03 04/12/20 22 04/13/2022 COMPR EHENS MONSTER METAB OLIC PANEL protein, total 6.9 g/dL 6.1-8. 1 normal Not Available [address], [address], 04/13/2022 06:48:03 04/12/20 22 04/13/2022 COMPR EHENS MONSTER METAB OLIC PANEL albumin 3.9 g/dL 3.6-5. 1 normal Not Available [address], [address], 04/13/2022 06:48:03 04/12/20 22 04/13/2022 COMPR EHENS MONSTER METAB OLIC PANEL globulin 3.0 g/dL_ (calc ) 1.9-3. 7 normal Not Available [address], [address], 04/13/2022 06:48:03 04/12/20 22 04/13/2022 COMPR EHENS MONSTER METAB OLIC PANEL albumin/glob ulin ratio 1.3 (calc ) 1.0-2. 5 normal Not Available [address], [address], 04/13/2022 06:48:03 04/12/20 22 04/13/2022 COMPR EHENS MONSTER METAB OLIC PANEL bilirubin, total 0.4 mg/dL 0.2-1. 2 normal Not Available [address], [address], 04/13/2022 06:48:03 04/12/20 22 04/13/2022 COMPR EHENS MONSTER METAB OLIC PANEL alkaline phosphatase 77 U/L 31-125 normal Not Available [address] [place], [address], 04/13/2022 06:48:03 04/12/20 22 04/13/2022 COMPR EHENS MONSTER METAB OLIC PANEL AST 12 U/L 10-30 normal Not Available [address] [address] [place], [address], 04/13/2022 06:48:03 04/12/20 22 04/13/2022 COMPR EHENS MONSTER METAB OLIC PANEL ALT 17 U/L 6-29 normal Not Available [address] [place], [address], 04/13/2022 06:48:03 04/12/20 22 04/13/2022 LIPID PANEL , STAND DUSTIN cholesterol, total 132 mg/dL <200 normal Not Available [address], [address], 04/13/2022 06:48:03 04/12/20 22 04/13/2022 LIPID PANEL , STAND DUSTIN HDL cholesterol 36 mg/dL > or = 50 low Not Available [address], [address], 04/13/2022 06:48:03 04/12/20 22 04/13/2022 LIPID PANEL , STAND DUSTIN triglyceride s 98 mg/dL <150 normal Not Available [address], [address], 04/13/2022 06:48:03 04/12/20 22 04/13/2022 LIPID PANEL , STAND DUSTIN LDL-choleste rol 78 mg/dL _(kim c) normal Refer ence range : <100 Eileen able range <100 mg/dL for prima ry preve ntion ; <70 mg/dL for patie nts with CHD or diabe tic patie nts with > or = 2 CHD risk facto rs. LDL-C is now calcu lated using the [facility] kins calcu fatou n, which is a valid ated novel metho d provi ding edy r accur acy than the Fried ketty equat ion in the estim ation of LDL-C . Leslie n SS et al. SANCHEZ. 2013; 310(1 9): 2061- 2068 (http ://ed ucati on.Qu Alexey nicoleGenius Blends. com/f aq/FA Q164) Not Available [address] [address], [place], [address], 04/13/2022 06:48:03 04/12/20 22 04/13/2022 LIPID PANEL , STAND DUSTIN chol/HDLC ratio 3.7 (calc ) <5.0 normal Not Available [address], [place], [address], 04/13/2022 06:48:03 04/12/20 22 04/13/2022 LIPID PANEL , STAND DUSTIN non HDL cholesterol 96 mg/dL _(kim c) <130 normal For patie nts with diabe maribell plus 1 major ASCVD risk facto r, treat ing to a non-H DL-C goal of <100 mg/dL (LDL- C of <70 mg/dL ) is toby schultz n. Not Available [facility] [address] , [place], [address], 04/13/2022 06:48:03 Result Notes None recorded. Problems Name Problem SNOMED Code Status Onset Date Resolution Date Notes Provider Name and Address Organization Details Recorded Time Abscess 901300967 Completed Not Available [facility] 3 09:24:18 Acute sinusiti s 26022732 Completed Not Available [facility] 3 09:24:18 Pain in throat 686260542 Completed Not Available [facility] 3 09:24:18 Dry skin 39798098 Completed 201612/03/2016 Not Available [facility] 3 09:24:19 Impacted cerumen 85077058 Completed 201612/03/2016 Not Available [facility] 3 09:24:19 Fluid level behind tympanic membrane Completed Not Available [facility] 3 09:24:19 Gastroen teritis 44990574 Completed Not Available [facility] 3 09:24:19 On examinat ion - rash present Completed Not Available [facility] 3 09:24:19 Eruption 739555884 Completed Not Available [facility] 3 09:24:19 Pruritic disorder 446047990 Completed Not Available [facility] 3 09:24:19 Crohn's disease 53020312 Active [address] Trent Severino MD GI. Not Available [facility] 3 09:24:19 Fever 784340800 Completed Not Available [facility] 3 09:24:19 Pharyngi tis 146210481 Completed Not Available [facility] 3 09:24:20 Itching of skin 039518972 Completed Not Available [facility] 3 09:24:20 Cough 27171848 Completed Not Available [facility] 3 09:24:20 Upper respirat ory infectio n 24720255 Completed Not Available [facility] 3 09:24:20 Swelling 30818613 Completed 201612/03/2016 Not Available [facility] 3 09:24:20 Posterio r rhinorrh ea 65147191 Completed Not Available [facility] 3 09:24:20 Congesti on of nasal sinus 52589639 Completed Not Available [facility] 3 09:24:20 Fatigue 64247123 Completed Not Available [facility] 3 09:24:21 Obese 120450580 Active 2022 Judy Fishman NP [address] [facility], [facility] [address], [place], [address] , [facility] 3 08:20:25 Problem Notes None recorded. Medical Equipment None Reported. Allergies Allergen ID Allergen Name Allergen Category Reaction Reaction Severity Criticality Documentation Date Start Date Code Code System Note Provider Name and Address Organization Details Recorded Time 48537 Substance with sulfonami de structure and antibacte rial mechanism of action (substanc e) medicatio n anaphylax is Not available Not available 06/12/2022 89639 8003 SNOMED Not Available [facility] 3 09:27:25 89392 Omnicef medicatio n anaphylax is Not available Not available 06/12/2022 30128 RxNorm Not Available [facility] 3 09:27:25 05266 morphine medicatio n itching Not available Not available 06/12/2022 7052 RxNorm Not Available [facility] 3 09:27:25 85995 iodine medicatio n rash moderate Not available 06/12/2022 5933 RxNorm Used iodin e to prep for gallb ladde r remov al Not Available [facility] 3 09:27:26 30790 clindamyc in Not available Not available Not available Not available 06/12/2022 2582 RxNorm Not Available [facility] 3 09:27:26 Medications Name Sig Start Date Stop Date Status Note LastModified by Organization Details LastModified Time cyclobenz aprine 10 mg tablet TK 1 T PO HS 09/26 completed as needed Not Available Not Available Not Available metformin 500 mg tablet Take 1 tablet twice a day by oral route for 90 days. 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 Not Available Not Available Not [...] Not Available Not Available Not Available Fluvirin 7597-8838 45 mcg (15 mcg x 3)/0.5 mL intramusc ular suspensio n ADM 0.5ML UTD active Not Available Not Available No t Available Flucelvax Quad 3845-7409 (PF) 60 mcg (15 mcg x 4)/0.5 [...] Date Recorded Body mass index (BMI) Body mass index (BMI) Body mass index (BMI) Body height Body height Body height Oxygen saturation Oxygen saturation in Arterial blood by Pulse oximetry Oxygen saturation Oxygen saturation in Arterial blood by Pulse oximetry Oxygen saturation Oxygen saturation in Arterial blood by Pulse oximetry Heart rate Heart rate Heart rate Respiratory rate Respiratory rate Body temperature Body temperature Body temperature Body weight Body weight Body weight Systolic blood pressure Diastolic blood pressure Systolic blood pressure Diastolic blood pressure Systolic blood pressure Diastolic blood pressure Provider Name and Address Organization Details Last Updated DateTime 3 44.4 kg/m2 45.2 kg/m2 44.1 kg/m2 157.48 cm 157.48 cm 157.48 cm 97 % 97 % 98 % 98 % 97 % 97 % 76 /min 98 /min 91 /min 18 /min 16 /min 97.8 [degF] 97.8 [degF] 97 [degF] 159889. 95 g 338403. 32 g 593360. 12 g 118 mm[Hg] 76 mm[Hg] 138 mm[Hg] 90 mm[Hg] 132 mm[Hg] 77 mm[Hg] Not Available [facility] 3 09:21:47 Date Recorded Body height Body mass index (BMI) Body weight Body temperature Heart rate Respiratory rate Oxygen saturation Oxygen saturation in Arterial blood by Pulse oximetry Pain severity - 0-10 verbal numeric rating [Score] - Reported Systolic blood pressure Diastolic blood pressure Provider Name and Address Organization Details Last Updated DateTime 3 157.48 cm 43.8 kg/m2 048618. 68 g 97 [degF] 89 /min 16 /min 98 % 98 % 0 128 mm[Hg] 80 mm[Hg] Judy Carrillo RN [facility] [employer] 3 10:07:36 Social History Question Answer Notes LastModified by Organizat ion Details LastModified Time Tobacco Smoking Status Former Smoker Judy Carrillo RN [facility], [employer] 11/22/2022 10:08:27 Do You Have An Advance Directive? No [id number] Information not available 06/12/2022 What Is Your Level Of Alcohol Consumption? Occasional MIGRATION.[id number] [id number] Information not available 06/12/2022 Is Blood Transfusion Acceptable In An Emergency? Yes Information not available 11/22/2022 What Is Your Level Of Caffeine Consumption? Moderate MIGRATION.[id number] Information not available 06/12/2022 What Is Your Code Status? Full Code [email or web address] Information not available 11/22/2022 In The 14 Days Before Symptom Onset, Have You Had Close Contact With A Laboratory-confi rmed COVID-19 While That Case Was Ill? No MIGRATION.[id number] Information not available 06/12/2022 In The 14 Days Before Symptom Onset, Have You Had Close Contact With A Person Who Is Under Investigation For COVID-19 While That Person Was Ill? No MIGRATION.35557 [id number] Information not available 06/12/2022 What Type Of Diet Are You Following? 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 No MIGRATION.93875 68794 Information not available 06/12/2022 Are There Any Guns Present In Your Home? No MIGRATION.39654 88990 Information not available 06/12/2022 Do You Use Insect Repellent Routinely? Yes Information not available 11/22/2022 [facility] available 11/22/2022 Do You Have A Medical Power Of Central Office Inspector? No MIGRATION.22532 45783 Information not available 06/12/2022 Do You Have Any Pets? Yes Information not available 11/22/2022 What Is Your Relationship Status? Single MIGRATION.78708 61802 Information not available 06/12/2022 Do You Use Your Seat Belt Or Car Seat Routinely? Yes MIGRATION.56903 40427 Information not available 06/12/2022 Do You Have Smoke And Carbon Monoxide Detectors In Your Home? Yes Information not available 11/22/2022 At What Age Did You Start Smoking Tobacco? 19 MIGRATION.79601 74252 Information not available 06/12/2022 Are You Passively Exposed To Smoke? No MIGRATION.67570 19161 Information not available 06/12/2022 Are There Any Smokers In Your House? No MIGRATION.29904 39186 Information not available 06/12/2022 How Much Tobacco Do You Smoke? 0.25 PPD MIGRATION.52767 86356 Information not available 06/12/2022 Do You Participate In Social Media? Yes Information not available 11/22/2022 Do You Feel Stressed (tense, Restless, Nervous, Or Anxious, Or Unable To Sleep At Night)? [id number] Information not available 11/22/2022 Do You Use Any Illicit Or Recreational Drugs? No MIGRATION.75249 99167 Information not available 06/12/2022 Do You Use Sunscreen Routinely? Yes Information not available 11/22/2022 Has Tobacco Cessation Counseling Been Provided? No MIGRATION.95625 15426 Information not available 06/12/2022 Have You Recently Traveled Abroad? No MIGRATION.25965 21600 Information not available 06/12/2022 Are You Currently In School? No MIGRATION.75461 59024 Information not available 06/12/2022 Do You Have Any Dietary Restrictions? No MIGRATION.08799 73685 Information not available 06/12/2022 Do You Or Have You Ever Used Any Other Forms Of Tobacco Or Nicotine? No MIGRATION.22415 24580 Information not available 06/12/2022 Sex: Female Functional [...] virus, quadrivalent, preservative 7 completed Not Available [facility] 06/12/2022 09:27:10 Influenza, split virus, trivalent, preservative 6 completed Not Available [facility] 06/12/2022 09:27:11 SARS-COV-2 (COVID-19) vaccine, UNSPECIFIED 2 completed Not Available [facility] 06/12/2022 09:27:11 SARS-COV-2 (COVID-19) vaccine, UNSPECIFIED 1 completed Not Available [facility] 06/12/2022 09:27:11 SARS-COV-2 (COVID-19) vaccine, UNSPECIFIED 1 completed Not Available [facility] 06/12/2022 09:27:11 Influenza, split virus, trivalent, preservative 4 completed Not Available [facility] 06/12/2022 09:27:11 Influenza, split virus, trivalent, preservative 3 completed Not Available [facility] 06/12/2022 09:27:11 varicella 3 completed Not Available [facility] 06/12/2022 09:27:12 Past Encounters Encounter ID Performer Location Encounter Start Date Encounter Closed Date Diagnosis/Indication Diagnosis SNOMED-CT Code Diagnosis ICD10 Code Diagnosis Note [id number] [facility]Count includes the [facility] [address] [place] [id number] 1 01/04/2021 00:00:00 01/04/2021 15:26:21 [id number] [facility] [address] [place] [id number] 09/28/2021 00:00:00 09/28/2021 12:11:20 [id number] [facility] [address] [place] [id number] 1 03/29/2022 00:00:00 03/29/2022 13:39:51 [id number] [facility] [address] [place] [id number] 1 05/03/2022 00:00:00 05/03/2022 10:36:37 [id number] Judy Fishman NP [facility] [address] [place] [id number] 1 11/22/2022 09:51:09 11/22/2022 10:44:14 Crohn's disease 48262727 K50.90 Seeing GI. Stable. On biologic. Fighting insurance currently to get medication covered. Getting through home health and working great, every 4 weeks. Obese 706703965 E66.9 Diet and exercise. 96589250 Z33.1 currently 14 weeks with daughter and JONNATHAN 05/23/23 Health Concerns Section Related Observation LastModified by Organization Detai ls LastModified Time None Recorded Concern Status LastModified by Organization Details LastModified Time None Recorded Advance Directives Directive N: Payers Encounter Date Sequence Insurance Name Policy Number Policy [place] Covered Member ID L[place] Member ID Guarantor Name 11/22/2022 1 [employer] [facility] CHO[facility] (PPO) [id number] Ramírez Charo [id number] Liliana Mancilla Notes Date Note Type Note Provider Name and Address Organization Details Recorded Time 11/22/2022 text/html Here for 6 mo fu . BP- Stable. on ASA 81 mgCrohn's disease- Getting home health to provide medication.Obese- Overweight Currently 14 weeks . Hx pre-eclampsia on ASA 81 mg. Working as usual. JONNATHAN: may 23, but son was 3 weeks early. Judy Fishman NP [address] [facility] [address], [place], [address], [place] [facility] [employer] 11/22/2022 10:42:56 OBGyn Episode No OBEpisode recorded.
--- OUTSIDE RECORDS SUMMARY | 2024-05-30 18:19 | XMS_ITS | Clinical Summary ---
Author Organization [facility] Address [address] [place] [address] Care Team Providers Care Thermometer Production Worker Name Role Phone Kye, Judy Brittani OPERATIONS SUPERINTENDENT Primary Care Provider + Jessica Martínez MD Unavailable [phone] Allergies Active Allergy Reactions Criticality Noted Date [...] at home. MR x1 on admission to [facility]. On ASA 81 mg. Denies WHITE, vision [...] vaginal Assessment & Plan (04/03/2023 2:06 PM HOSPITAL TECHNICIAN): Asymptomatic, well controlled. Assessment & Plan (03/06/2023 1:18 AM HOSPITAL TECHNICIAN): Well controlled. Assessment & Plan (08/31/2021 5:47 [...] activity Assessment & Plan (05/25/2021 9:26 AM HOSPITAL TECHNICIAN): Discussed recommendation for both stool softener and [...] disease. Assessment & Plan (03/30/2019 3:48 PM HOSPITAL TECHNICIAN): Ileal Crohn's disease. Diagnosed 2018. Started entyvio [...] Plan [] Send weekly glucose log through [employer] for review [] Twice weekly NSTs scheduled next Fri/Fri, complete for BPP and growth next week to evaluate size [x] Serial growth ultrasounds, complete [] Plan delivery by 39 weeks - IOL scheduled 2 [] 2 hour gtt 6 weeks Assessment & Plan (03/06/2023 1:17 AM HOSPITAL TECHNICIAN): Has only taken 1 dose of increased lantus dose. Thus will continue for now. Reviewed how to transition from AM dosing to PM dosing and provided written schedule. Assessment & Plan (02/22/2023 11:29 AM HOSPITAL TECHNICIAN): Recommend initiation of lantus 10U morning given [...] delivery Assessment & Plan (03/06/2023 1:18 AM HOSPITAL TECHNICIAN): BP at goal today. Assessment & Plan (02/22/2023 11:27 AM HOSPITAL TECHNICIAN): We reviewed recommendation in future to present [...] [x] Blue Team Referring Provider: Trent XAVIER) [phone] [] or Medicare Insurance [x] Dating Criteria: [...] vasectomy [x] Method of feeding: Breast [x] Fast Food Delivery Driver: Pb [x] PP Depression Discussed: Assessment & Plan (02/22/2023 11:29 AM HOSPITAL TECHNICIAN): Provided [email or web address] website to review. Hypertension in [...] OGTT Assessment & Plan (05/10/2021 8:56 AM HOSPITAL TECHNICIAN): BS log reviewed with the majority of values at or under goal. Continue current regimen. Assessment & Plan (04/26/2021 5:10 PM HOSPITAL TECHNICIAN): Fastings continue to be elevated with a few elevated breakfast PCs. Will adjust bedtime insulin and have patient send log on Friday for review. Assessment & Plan (04/12/2021 1:50 PM HOSPITAL TECHNICIAN): Counseled today on diagnosed gDM. Discussed goal [...] [x] Blue Team Referring Provider: JESSICA Severino [phone] [facility] Jessica Mauricio: [phone]; [x] Dating Criteria: Embryo Transfer 10/03/20 with JONNATHAN 06/21/21 [x] Labs: Lab Results Component Value Date ABORH B Positive 11/24/2020 IDCOOMB Negative 11/24/2020 [id number] Nonreactive 11/24/2020 LABRPR Nonreactive 11/24/2020 RUBELIGG Reactive [...] [] COVID testing: ordered on for the [place] location, pt letter sent Counselling [x] MOD: IOL scheduled on 06/13/21 at 9PM, pt letter sent [x] Place of delivery: [facility] [] MOC: [x] Method of feeding: breast [x] Fast Food Delivery Driver: [] PP Depression Discussed: should not be given any live vaccines. Assessment & Plan (11/24/2020 3:14 PM CDT): SEROLOGIES NEEDED [] Co-management vs. [] Full MFM Care; [] Red Team [] Blue Team Referring Provider: JESSICA Severino [phone] [facility] Jessica Mauricio: [phone]; [] or Medicare Insurance [x] Dating Criteria: [...] [] MOC: [] Method of feeding: [] Fast Food Delivery Driver: [] PP Depression Discussed: care not yet [...] 10/30/2022 Assessment & Plan (03/30/2019 3:48 PM HOSPITAL TECHNICIAN): High risk medications: As with all patients [...] Type Department Care Team Description 03/30/2024 Telephone [facility] Gastroenterology [address] [place] [address] [place] [id number] Hermelinda Don Medical Records Request from Last 3 Months Immunizations Immunization Administration Dates Next Due Influenza, Quadrivalent, Jessica [...] in , preeclampsia, delivered 07/10/2021 care following sc ginal delivery 05/29/2021 # ID: Afebrile. No [...] often do you attend chur ch or buddhist services? 1 to 4 times per year [...] in a chcf (including now)? No 05/14/2023 [place] Depression Scale Answer Date Recorded [place] Depression Scale Total 0 06/24/2023 The thought [...] on file Legal Sex Female 7:54 PM HOSPITAL TECHNICIAN Gender Identity Not on file Sexual [...] Epidur al Y Livin g 8 9 FADLE R,BOY Mika Alicea MD Complications:Pre eclampsia Delivery Location:[facility] ([facility] 58LD) 2023 Term 38w 4d 0h 05m 0h 05m 3.17 kg (6 lb 15.8 oz) F Vagina l Epidur al N Livin g 8 9 Lay Reynoso MD Delivery Location:[facility] Main [facility] ([facility] 58LD) Last Filed Vital Signs Vital Sign Reading Time Taken Comments Blood Pressure 119/75 12/11/2023 2:53 PM CDT Pulse 95 12/11/2023 2:53 PM CDT Temperature 36.3 C (97.3 F) 12/11/2023 2:53 PM CDT Respiratory Rate 16 05/14/2023 7:00 AM HOSPITAL TECHNICIAN Oxygen Saturation 96% 12/11/2023 2:53 PM CDT [...] 13+ 2-dose series) 11/04/2012 10/07/2012 Covid-19 Vaccine (2 - season) 2023 12/01/2020 Influenza Vaccine (#1) 2023 [...] this topic Medical Devices Implanted Type Area Pattern Marker Device Identifier Shelf Expiration Date Model / Serial / Lot Plate/Screws In Right Ankle Ankle Procedures Procedure Name Priority Date/Time Associated Diagnosis Comments HEPATITIS C ANTIBODY Routine 10/04/2022 10:07 AM CDT Crohn's disease of small intestine with other complication (HCC) Supervision of high-risk , first trimester from Last 3 Months or Most Recently Relevant to Health Maintenance Results * Hepatitis C antibody (10/04/2022 10:07 AM CDT) Hep C Ab Nonreactive Nonreactive RAIZA [facility] Comment:Antibodies to HCV no t detected. Does NOT exclude the possibility of recent exposure to HCV. Current interpretive data was last revised on 21 Blood 10/04/2022 10:0 7 AM CDT 10/04/2022 11:26 AM CDT Alley Reynoso MD LAB MICROBIOLOGY - GENERAL ORDERABLES Final Result Performing Organization Address City/State/[facility] Co de Phone Number [facility] Department [place] [address] from Last 3 Months or Most Recently Relevant to Health Maintenance Insurance [facility] CHOICE PLUS CHOICE [place] [facility] CHOICE PLUS ANTHEM ACCESS [facility] CHOICE PLUS [facility] CHOICE PLUS Advance Directives For more information, please contact: [phone] * Full Code (Latest Code Status on [...] in case of cardiopulmonary arrest Care Teams Thermometer Production Worker Relationship Specialty Start Date End Date Judy Fishman NP [address] [address] PCP - General 07/31/18 Jessica Martínez MD [address] [address] Consulting Physician Obstetrics and Gynecology 11/16/20
--- OUTSIDE RECORDS SUMMARY | 2024-05-30 18:19 | XMS_ITS | Referral Summary ---
Author Organization [facility] Address [address] [place] [address] Care Team Providers Care Brand Marketing Intern Name Role Phone Judy Fishman CHILD NEUROLOGIST Primary Care Provider + Jessica Martínez MD Unavailable [phone] Encounters Date Type Department Care Team Description 03/30/2024 Telephone [facility] Gastroenterology [address] [place] [address] [place] [address] Hermelinda Don Medical Records Request from Last 3 Months Allergies Active Allergy [...] not taking.Reported on 07/31/2023 lancets [facility] GLUCOSE FASTING AND ONE HOUR AFTER [...] at home. MR x1 on admission to [facility]. On ASA 81 mg. Denies WHITE, vision [...] vaginal Assessment & Plan (04/03/2023 2:06 PM JUVENILE OFFICER): Asymptomatic, well controlled. Assessment & Plan (03/06/2023 1:18 AM JUVENILE OFFICER): Well controlled. Assessment & Plan (08/31/2021 5:47 [...] activity Assessment & Plan (05/25/2021 9:26 AM JUVENILE OFFICER): Discussed recommendation for both stool softener and [...] disease. Assessment & Plan (03/30/2019 3:48 PM JUVENILE OFFICER): Ileal Crohn's disease. Diagnosed 2018. Started entyvio [...] Plan [] Send weekly glucose log through [employer] for review [] Twice weekly NSTs scheduled next Fri/Fri, complete for BPP and growth next week to evaluate size [x] Serial growth ultrasounds, complete [] Plan delivery by 39 weeks - IOL scheduled 2/2 [] 2 hour gtt 6 weeks Assessment & Plan (03/06/2023 1:17 AM JUVENILE OFFICER): Has only taken 1 dose of increased lantus dose. Thus will continue for now. Reviewed how to transition from AM dosing to PM dosing and provided written schedule. Assessment & Plan (02/22/2023 11:29 AM JUVENILE OFFICER): Recommend initiation of lantus 10U morning given [...] delivery Assessment & Plan (03/06/2023 1:18 AM JUVENILE OFFICER): BP at goal today. Assessment & Plan (02/22/2023 11:27 AM JUVENILE OFFICER): We reviewed recommendation in future to present for evaluation if has elevated BP and WHITE. Reassuring that WHITE resolved and BP today normotensive. Recommend daily BP monitoring given history. Patient has BP cuff at home that was validated at the time of receipt in last . Supervision of high-risk pre gnancy, third trimester 09/30/2022 06/24/2023 Overview (05/09/2023): [x] Full MFM Care; [x] Blue Team Referring Provider: Trent XAVIER) [phone] [] or Medicare Insurance [x] Dating Criteria: [...] vasectomy [x] Method of feeding: Breast [x] Can Technician: Pb [x] WEST Depression Discussed: Assessment & Plan (02/22/2023 11:29 AM JUVENILE OFFICER): Provided [email or web address] website to review. Hypertension in , p [...] # Disposition: Follow up task sent to [facility] scheduling pool. Desires discharge home today. pending bleeding amount Gestational diabetes mellitu s (GDM) in third trimester 04/12/2021 06/12/2021 Overview (06/05/2021): Failed 3 hour gtt Plan for PP 2 hr OGTT Assessment & Plan (05/10/2021 8:56 AM JUVENILE OFFICER): BS log reviewed with the majority of values at or under goal. Continue current regimen. Assessment & Plan (04/26/2021 5:10 PM JUVENILE OFFICER): Fastings continue to be elevated with a few elevated breakfast PCs. Will adjust bedtime insulin and have patient send log on Friday for review. Assessment & Plan (04/12/2021 1:50 PM JUVENILE OFFICER): Counseled today on diagnosed gDM. Discussed goal [...] [x] Blue Team Referring Provider: JESSICA Severino [phone] [facility] Jessica [place]: [phone]; [x] Dating Criteria: Embryo Transfer 10/03/20 with JONNATHAN 06/21/21 [x] Labs: Lab Results Component Value Date ABORH B Positive 11/24/2020 IDCOOMB Negative 11/24/2020 [id number] Nonreactive 11/24/2020 LABRPR Nonreactive 11/24/2020 RUBELIGG Reactive 11/24/2020 HEPBSAG Nonreactive 11/24/2020 HGB 11.1 (L) 11/24/2020 HCT 35.4 (L) 11/24/2020 LABPLAT 360 11/24/2020 [x] GC/CT- Neg/Neg [x] Genetic Screening: [place] Low Risk [x] Early 1hr GTT (if [...] [] COVID testing: ordered on for the [facility], pt letter sent Counselling [x] MOD: IOL scheduled on 06/13/21 at 9PM, pt letter sent [x] Place of delivery: [facility] [] MOC: [x] Method of feeding: breast [x] Can Technician: [] PP Depression Discussed: [place] should not be given any live vaccines. Assessment & Plan (11/24/2020 3:14 PM CDT): SEROLOGIES NEEDED [] Co-management vs. [] Full M Care; [] Red Team [] Blue Team Referring Provider: JESSICA Severino [phone] [facility] Jessica Mauricio: [phone]; [] or Medicare Insurance [x] Dating Criteria: [...] [] MOC: [] Method of feeding: [] Can Technician: [] PP Depression Discussed: care not yet [...] 10/30/2022 Assessment & Plan (03/30/2019 3:48 PM JUVENILE OFFICER): High risk medications: As with all patients [...] stores with her upcoming infusion Crohn's colitis ([facility]) 10/27/2018 Obesity 10/27/2018 06/12/2020 Immunizations Immunization Administration Dates Next Due Influenza, [...] week 05/14/2023 How often do you attend [facility] or scientologist services? 1 to 4 times [...] in a group home (including now)? No 05/14/2023 [place] Depression Scale Answer Date Recorded [place] Depression Scale Total 0 06/24/2023 The thought [...] on file Legal Sex Female 7:54 PM JUVENILE OFFICER Gender Identity Not on file Sexual Orientation Not on file Last Filed Vital Signs Vital Sign Reading Time Taken Comments Blood Pressure 119/75 12/11/2023 2:53 PM CDT Pulse 95 12/11/2023 2:53 PM CDT Temperature 36.3 C (97.3 F) 12/11/2023 2:53 PM CDT Respiratory Rate 16 05/14/2023 7:00 AM JUVENILE OFFICER Oxygen Saturation 96% 12/11/2023 2:53 PM CDT Inhaled Oxygen Concentration - - Weight 108.9 kg (240 lb) 12/11/2023 2:53 PM CDT Height 157.5 cm (5' 2 ) 12/11/2023 2:53 PM CDT Body Mass Index 43.9 12/11/2023 2:53 PM CDT Plan of Treatment Not on file Medical Devices Implanted Type Area Chemicals Distiller Device Identifier Shelf Expiration Date Model / [...] CDT) Hep C Ab Nonreactive Nonreactive RA[facility]A [facility] Comment:Antibodies to HCV no t detected. Does NOT exclude the possibility of recent exposure to HCV. Current interpretive data was last revised on 21 Blood 10/04/2022 10:0 7 AM CDT 10/04/2022 11:26 AM CDT us Alley Reynoso MD LAB MICROBIOLOGY - GENERAL ORDERABLES Final Result RAIZA LIVE [facility] [place] [address] from Last 3 Months or Most Recently Relevant to Health Maintenance Insurance [facility] CHOICE PLUS CHOICE [place] [facility] CHOICE PLUS ANTHEM ACCESS CHOICE [facility] Address: [address] [place] [address] [place] [phone] [facility] CHOICE PLUS Advance Directives For more information, please contact: [phone] * Full Code (Latest Code Status on [...] in case of cardiopulmonary arrest Care Teams Brand Marketing Intern Relationship Specialty Start Date End Date Judy Fishman NP [address] [address] PCP - General 07/31/18 Jessica Martínez MD [address] [address] Consulting Physician Obstetrics and Gynecology 11/16/20
[2024-05-30 18:31] VITALS: BP 117/75; PULSE 91; RESP 18; TEMP 36.4; O2SAT 100
--- NOTE | 2024-05-30 19:00 | ED.URI ---
HPI - URI/Sore Throat General Chief Complaint: Upper Respiratory Infection Stated Complaint: Sore throat Source: patient Mode of arrival: ambulatory Limitations: no limitations History of Present Illness HPI Narrative: 33-year-old female presents to [facility] with complaints of sore throat and headache since this morning. Patient reports history of strep throat with last episode of strep being 2 months ago. Patient has been taking [id number] Tylenol with little relief. Patient denies fever, body aches, chills, nausea, vomiting or diarrhea. Patient is nonsmoker. Patient denies recent travel. MD elicited complaint: sore throat and other (headache) Onset (ago): hour(s) (8) Able to tolerate fluids by mouth: Yes Exacerbating factors: swallowing Treatments prior to arrival: acetaminophen Related Data Home Medications ?Medication ?Instructions ?Recorded ?Confirmed ?Last Taken ?Type vedolizumab 300 mg intravenous 300 mg IV .monthy 07/11/23 02/27/24 Unknown History solution (Entyvio) cetirizine 10 mg capsule (All Day 10 mg PO DAILY PRN 02/27/24 02/27/24 Unknown History Allergy (cetirizine)) Allergies Allergy/AdvReac Type Severity Reaction Status Date / Time clindamycin Allergy Severe Anaphylaxis Verified 05/30/24 18:34 cefdinir Allergy Unknown Anaphylactic Verified 05/30/24 18:34 Shock iodine Allergy Unknown rash Verified 05/30/24 18:34 povidone-iodine Allergy Unknown RASH Verified 05/30/24 18:34 soap Allergy Unknown RASH Verified 05/30/24 18:34 Sulfa (Sulfonamide Allergy Unknown Anaphylactic Verified 05/30/24 18:34 Antibiotics) Shock morphine AdvReac Intermediate Itching Verified 05/30/24 18:34 Review of Systems Constitutional: Constitutional: Denies chills, Denies fatigue, Denies fever(s) and Denies weakness ENT: Denies epistaxis, Denies nasal congestion and Reports sore throat Cardiovascular: Cardiovascular: Denies chest pain Respiratory: Respiratory: Denies cough, Denies dyspnea and Denies wheezing Gastrointestinal: Gastrointestinal: Denies diarrhea, Denies nausea and Denies vomiting Integumentary/Breasts: Skin/Breast: Denies erythema Neurologic: Denies syncope, Reports headache(s) and Denies focal weakness PMFSH Past Medical History Medical History History of pre-eclampsia Obese Crohn's colitis Gestational diabetes Eustachian tube disorder Tubes and ear as child Depression ADD (attention deficit disorder) Surgical History Surgical History History of placement of ear tubes as child H/O LEEP ~2015 History of orthopedic surgery Right ankle fracture with hardware Hx of cholecystectomy Family History Family History Grandparent Hypertension Family history of dementia Heart disease Mother Diabetes mellitus Hypertension Social History Social History Smoking status: Former smoker Alcohol intake: current Substance use: never Do You Feel Safe in your Home?: Yes Lack of Transportation: No Lack of Food: Never True Current Housing: I Have Housing Concerned About Future Housing: No Difficulty Paying Gas/Electric Bills: No Difficulty Paying for Meds: No Currently Unemployed: No Education: Don't Know Difficulty w/ Childcare or Family Care: No Living arrangements: with family Occupation/Education: occupation 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 There is no relevant family history pertinent to the presenting complaint. Exam Const: General: healthy appearing and no acute distress Nutritional Appearance: well nourished Orientation/consciousness: patient oriented x3 Limitations: no limitations HENMT: Head: normal to inspection Ears: external ears normal, TM's normal bilaterally and EAC's normal Face/Nose/Sinus: Normal external nose present and Normal nares present Mouth: Yes Normal oral and palatal mucosa present, Yes lip normal and Yes moist mucous membranes Teeth and gingiva: dentition normal Other: 1+ swelling with mild erythema noted to bilateral tonsils. There is no peritonsillar abscess or exudate noted. Eyes: Conjunctivae: conjunctivae normal Neck: Neck: normal visual inspection Resp: Effort & Inspection: normal respiratory effort and not labored Auscultation: clear to auscultation bilaterally, no crackles, no rales, no rhonchi and no wheezes Cardio: Rate: regular rate Rhythm: regular rhythm Heart sounds: no murmurs Skin: General skin exam: normal color Rashes: no rashes Neuro: General: patient oriented x3 and moves all extremities Speech: normal speech Gait exam (Neuro): Normal gait present Psych: Mental Status: mental status grossly normal Affect: normal affect Attitude: cooperative Course Course Level of Care: Express Care Visit Vital Signs Vital signs: Vital Signs Temperature 36.4 C L 05/30/24 18:31 Pulse Rate 91 05/30/24 18:31 Respiratory Rate 18 05/30/24 18:31 Blood Pressure 117/75 05/30/24 18:31 Pulse Oximetry 100 05/30/24 18:31 Oxygen Delivery Room Air 05/30/24 18:31 Temperature 36.4 C L 05/30/24 18:31 Pulse Rate 91 05/30/24 18:31 Respiratory Rate 18 05/30/24 18:31 Blood Pressure 117/75 05/30/24 18:31 Pulse Oximetry 100 05/30/24 18:31 Oxygen Delivery Room Air 05/30/24 18:31 MDM - URI/Sore Throat MDM Narrative Medical decision making narrative: Discussed positive strep results with patient. Patient agrees to take antibiotic as prescribed. Patient agrees to dispose of toothbrush hours of starting antibiotic. Patient agrees to alternate Motrin and Tylenol as needed Differential Diagnosis Differential diagnosis: Likely upper respiratory infection, otitis media and sinusitis Lab Data Labs: Positive strep results Critical Care Time Critical Care Time Critical Care Time: No Discharge Plan Discharge Clinical Impression: Acute streptococcal pharyngitis Patient Disposition: Home, Self-Care Condition: Stable Instructions: Antibiotic Form, Strep Throat (ED) Additional Instructions: You tested positive for Group A strep. Take the entire course of antibiotics. Throw away your current toothbrush and begin using a new toothbrush in 48 hours in order to prevent re-infection. Sanitize all reusable water bottles. Do not share items with others. Salt water gargles may alleviate some of the throat discomfort. You can take tylenol or ibuprofen per the package instructions for pain/fever. Patient Language: Jordanian Prescriptions: New azithromycin [Zithromax Z-Margarito] 250 mg tablet See Rx Instructions .ROUTE .COMPLEX Qty: 6 0RF Rx Instructions: For 250 mg dose pack: take 500 mg today (day 1), then 250 mg for 4 days (days 2-5) No Action Entyvio 300 mg recon soln 300 mg IV .monthy Rx Instructions: administer over 30 mins All Day Allergy (cetirizine) 10 mg capsule 10 mg PO DAILY PRN dextroamphetamine-amphetamine 20 mg capsule,extended release 24hr 20 mg PO DAILY Qty: 30 0RF etonogestrel-ethinyl estradiol [NuvaRing] 0.12-0.015 mg/24 hr ring 1 vag ring vaginal Q21D Qty: 4 1RF Rx Instructions: place ring vaginally every 21 days to skip cycles Follow-up/Referrals: Judy Fishman APRN [Primary Care Provider] - Stand Alone Forms: Work/School Release IP Time of Disposition: 19:07
[2024-05-31 13:36] LABS: EDSTREPNEGPOS1 Positive (Negative)
== END 2024-05-30 19:12 | disposition home or self-care (01) ==
PROVIDERS: Emergency Provider Nurse Practitioner Family; PCP Nurse Practitioner Family
DX: J02.0 Streptococcal pharyngitis (principal); K50.90 Crohn's disease, unspecified, without complications; F90.9 Attention-deficit hyperactivity disorder, unspecified type; E66.9 Obesity, unspecified; Z68.39 Body mass index [BMI] 39.0-39.9, adult; Z87.891 Personal history of nicotine dependence
CPT/HCPCS: 87880; 99213; G0463

== ENCOUNTER 2024-06-01 16:15 | Emergency (ER) | payer OTHER, SELFPAY ==
--- OUTSIDE RECORDS SUMMARY | 2024-06-01 16:17 | XMS_ITS | Clinical Summary ---
Author Organization [facility] Address [address] [place] [address] Care Team Providers Care Attacher Name Role Phone Kye, Judy Brittani LEAF FAT SCRAPER Primary Care Provider + Jessica Martínez MD Unavailable [phone] Allergies Active Allergy Reactions Criticality Noted Date [...] at home. MR x1 on admission to [facility]. On ASA 81 mg. Denies WHITE, vision [...] vaginal Assessment & Plan (04/03/2023 2:[address] SPECIALIST): Asymptomatic, well controlled. Assessment & Plan (03/06/2023 1:[address] SPECIALIST): Well controlled. Assessment & Plan (08/31/2021 5:47 [...] activity Assessment & Plan (05/25/2021 9:[address] SPECIALIST): Discussed recommendation for both stool softener and [...] disease. Assessment & Plan (03/30/2019 3:[address] SPECIALIST): Ileal Crohn's disease. Diagnosed 2018. Started entyvio [...] Plan [] Send weekly glucose log through [employer] for review [] Twice weekly NSTs scheduled next Fri/Fri, complete for BPP and growth next week to evaluate size [x] Serial growth ultrasounds, complete [] Plan delivery by 39 weeks - IOL scheduled 2 [] 2 hour gtt 6 weeks Assessment & Plan (03/06/2023 1:[address] SPECIALIST): Has only taken 1 dose of increased lantus dose. Thus will continue for now. Reviewed how to transition from AM dosing to PM dosing and provided written schedule. Assessment & Plan (02/22/2023 11:[address] SPECIALIST): Recommend initiation of lantus 10U morning given [...] delivery Assessment & Plan (03/06/2023 1:[address] SPECIALIST): BP at goal today. Assessment & Plan (02/22/2023 11:[address] SPECIALIST): We reviewed recommendation in future to present for evaluation if has elevated BP and WHITE. Reassuring that WHITE resolved and BP today normotensive. Recommend daily BP monitoring given history. Patient has BP cuff at home that was validated at the time of receipt in last . Supervision of high-risk pre gnancy, third trimester 09/30/2022 06/24/2023 Overview (05/09/2023): [x] Full [facility] Care; [x] Blue Team Referring Provider: Trent XAVIER) [phone] [] or Medicare Insurance [x] Dating Criteria: [...] vasectomy [x] Method of feeding: Breast [x] Air Vice Marshal: Pb [x] PP Depression Discussed: Assessment & Plan (02/22/2023 11:[address] SPECIALIST): Provided [email or web address] website to review. Hypertension in [...] # Disposition: Follow up task sent to [facility] scheduling pool. Desires discharge home today. pending bleeding amount Gestational diabetes mellitu s (GDM) in third trimester 04/12/2021 06/12/2021 Overview (06/05/2021): Failed 3 hour gtt Plan for PP 2 hr OGTT Assessment & Plan (05/10/2021 8:[address] SPECIALIST): BS log reviewed with the majority of values at or under goal. Continue current regimen. Assessment & Plan (04/26/2021 5:[address] SPECIALIST): Fastings continue to be elevated with a few elevated breakfast PCs. Will adjust bedtime insulin and have patient send log on Friday for review. Assessment & Plan (04/12/2021 1:[address] SPECIALIST): Counseled today on diagnosed gDM. Discussed goal [...] [x] Blue Team Referring Provider: JESSICA Severino [phone] [facility] Jessica Mauricio: [phone]; [x] Dating Criteria: Embryo Transfer 10/03/20 with JONNATHAN 06/21/21 [x] Labs: Lab Results Component Value Date ABORH B Positive 11/24/2020 IDCOOMB Negative 11/24/2020 [id number] Nonreactive 11/24/2020 LABRPR Nonreactive 11/24/2020 RUBELIGG Reactive [...] [] COVID testing: ordered on for the [place] location, pt letter sent Counselling [x] MOD: IOL scheduled on 06/13/21 at 9PM, pt letter sent [x] Place of delivery: [facility] [] MOC: [x] Method of feeding: breast [x] Air Vice Marshal: [] PP Depression Discussed: should not be given any live vaccines. Assessment & Plan (11/24/2020 3:14 PM CDT): SEROLOGIES NEEDED [] Co-management vs. [] Full MFM Care; [] Red Team [] Blue Team Referring Provider: JESSICA Severino [phone] [facility] Jessica Mauricio: [phone]; [] or Medicare Insurance [x] Dating Criteria: [...] [] MOC: [] Method of feeding: [] Air Vice Marshal: [] PP Depression Discussed: care not yet [...] 10/30/2022 Assessment & Plan (03/30/2019 3:[address] SPECIALIST): High risk medications: As with all patients [...] Type Department Care Team Description 03/30/2024 Telephone [facility] [address] [place] [address] [place] [id number] Hermelinda Don Medical Records Request from Last [...] in , preeclampsia, delivered 07/10/2021 care following pr ginal delivery 05/29/2021 # ID: Afebrile. No [...] slept in a usp (including now)? No 05/14/2023 [place] Depression Scale Answer Date Recorded [place] Depression Scale Total 0 06/24/2023 The thought [...] on file Legal Sex Female 7:[address] SPECIALIST Gender Identity Not on file Sexual [...] Complications:Pre eclampsia Delivery Location:[facility] ([facility]) 2023 Term 38w 4d 0h 05m 0h 05m 3.17 kg (6 lb 15.8 oz) F Vagina l Epidur al N Livin g 8 9 Lay Reynoso MD Delivery Location:[facility] ([facility]) Last Filed Vital Signs Vital Sign Reading Time Taken Comments Blood Pressure 119/75 12/11/2023 2:53 PM CDT Pulse 95 12/11/2023 2:53 PM CDT Temperature 36.3 C (97.3 F) 12/11/2023 2:53 PM CDT Respiratory Rate 16 05/14/2023 7:[address] SPECIALIST Oxygen Saturation 96% 12/11/2023 2:53 PM CDT [...] Pneumococcal vaccine <65 (3 of 3 - PCV20 or PCV21) 2042 03/30/2019, 01/26/2019 Hepatitis C Screening Completed 10/04/2022 , 11/24/2020, 06/09/2020 HPV Vaccines Aged Out No longer eligi ble based on patient's age to complete this topic Medical Devices Implanted Type Area Sanitation Engineer Device Identifier Shelf Expiration Date Model / [...] CDT) Hep C Ab Nonreactive Nonreactive [facility] Comment:Antibodies to HCV no t detected. Does NOT exclude the possibility of recent exposure to HCV. Current interpretive data was last revised on 21 Blood 10/04/2022 10:0 7 AM CDT 10/04/2022 11:26 AM CDT Alley Reynoso MD LAB MICROBIOLOGY - GENERAL ORDERABLES Final Result Performing Organization Address City/State/[facility] Co de Phone Number [facility] Department [place] [address] from Last 3 Months or Most Recently Relevant to Health Maintenance Insurance [facility] CHOICE PLUS [facility] HMO/PPO Address: [facility] [address] [place] [address] [place]F [place] BLUE ACCESS [place] [facility] CHOICE PLUS [facility] HMO/PPO Address: [address] [address] [place] [address] [employer] [facility] [facility] HMO/PPO Address: [address] [place] [address] [facility] CHOICE PLUS [facility] C[facility] HMO/PPO Address: [place] [address] Advance Directives For more information, please contact: [phone] * Full Code (Latest Code Status on [...] in case of cardiopulmonary arrest Care Teams Attacher Relationship Specialty Start Date End Date Judy Fishman NP [address] [address] PCP - General 07/31/18 Jessica Martínez MD [address] [address] Consulting Physician Obstetrics and Gynecology 11/16/20
--- OUTSIDE RECORDS SUMMARY | 2024-06-01 16:17 | XMS_ITS | Referral Summary ---
Author Organization [facility] Address [address] [place] [address] Care Team Providers Care Flight Inspector Name Role Phone Judy Fishman CORPORATE ASSOCIATE ATTORNEY Primary Care Provider + Jessica Martínez MD Unavailable [phone] Encounters Date Type Department Care Team Description 03/30/2024 Telephone [facility] [address] [place] [address] [place] [address] Hermelinda Don Medical Records Request [...] not taking.Reported on 07/31/2023 lancets 33 gauge [place] [facility] GLUCOSE FASTING AND ONE HOUR AFTER [...] at home. MR x1 on admission to [facility]. On ASA 81 mg. Denies WHITE, vision [...] vaginal Assessment & Plan (04/03/2023 2:06 PM DUB ROOM ENGINEER): Asymptomatic, well controlled. Assessment & Plan (03/06/2023 1:18 AM DUB ROOM ENGINEER): Well controlled. Assessment & Plan (08/31/2021 5:47 [...] activity Assessment & Plan (05/25/2021 9:26 AM DUB ROOM ENGINEER): Discussed recommendation for both stool softener and [...] disease. Assessment & Plan (03/30/2019 3:48 PM DUB ROOM ENGINEER): Ileal Crohn's disease. Diagnosed 2018. Started entyvio [...] Plan [] Send weekly glucose log through [employer] for review [] Twice weekly NSTs scheduled next Fri/Fri, complete for BPP and growth next week to evaluate size [x] Serial growth ultrasounds, complete [] Plan delivery by 39 weeks - IOL scheduled 2/2 [] 2 hour gtt 6 weeks Assessment & Plan (03/06/2023 1:17 AM DUB ROOM ENGINEER): Has only taken 1 dose of increased lantus dose. Thus will continue for now. Reviewed how to transition from AM dosing to PM dosing and provided written schedule. Assessment & Plan (02/22/2023 11:29 AM DUB ROOM ENGINEER): Recommend initiation of lantus 10U morning given [...] delivery Assessment & Plan (03/06/2023 1:18 AM DUB ROOM ENGINEER): BP at goal today. Assessment & Plan (02/22/2023 11:27 AM DUB ROOM ENGINEER): We reviewed recommendation in future to present [...] [x] Blue Team Referring Provider: Trent XAVIER) [phone] [] or Medicare Insurance [x] Dating Criteria: [...] vasectomy [x] Method of feeding: Breast [x] Survey Research Center Director: Pb [x] WEST Depression Discussed: Assessment & Plan (02/22/2023 11:29 AM DUB ROOM ENGINEER): Provided [email or web address] website to review. Hypertension in , p [...] OGTT Assessment & Plan (05/10/2021 8:56 AM DUB ROOM ENGINEER): BS log reviewed with the majority of values at or under goal. Continue current regimen. Assessment & Plan (04/26/2021 5:10 PM DUB ROOM ENGINEER): Fastings continue to be elevated with a few elevated breakfast PCs. Will adjust bedtime insulin and have patient send log on Friday for review. Assessment & Plan (04/12/2021 1:50 PM DUB ROOM ENGINEER): Counseled today on diagnosed gDM. Discussed goal [...] [x] Blue Team Referring Provider: JESSICA Severino [phone] [facility] Jessica Mound: [phone]; [x] Dating Criteria: Embryo Transfer 10/03/20 with JONNATHAN 06/21/21 [x] Labs: Lab Results Component Value Date ABORH B Positive 11/24/2020 IDCOOMB Negative 11/24/2020 [id number] Nonreactive 11/24/2020 LABRPR Nonreactive 11/24/2020 RUBELIGG Reactive 11/24/2020 HEPBSAG Nonreactive 11/24/2020 HGB 11.1 (L) 11/24/2020 HCT 35.4 (L) 11/24/2020 LABPLAT 360 11/24/2020 [x] GC/CT- Neg/Neg [x] Genetic Screening: [place] Low Risk [x] Early 1hr GTT (if [...] COVID testing: ordered on for the [facility], pt letter sent Counselling [x] MOD: IOL scheduled on 06/13/21 at 9PM, pt letter sent [x] Place of delivery: [facility] [] MOC: [x] Method of feeding: breast [x] Survey Research Center Director: [] PP Depression Discussed: [place] should not be given any live vaccines. Assessment & Plan (11/24/2020 3:14 PM CDT): SEROLOGIES NEEDED [] Co-management vs. [] Full M Care; [] Red Team [] Blue Team Referring Provider: JESSICA Severino [phone] [facility] Jessica Mauricio: [phone]; [] or Medicare Insurance [x] Dating Criteria: [...] [] MOC: [] Method of feeding: [] Survey Research Center Director: [] PP Depression Discussed: care not [...] 10/30/2022 Assessment & Plan (03/30/2019 3:48 PM DUB ROOM ENGINEER): High risk medications: As with all patients [...] stores with her upcoming infusion Crohn's colitis ([facility]) 10/27/2018 Obesity 10/27/2018 06/12/2020 Immunizations Immunization Administration [...] week 05/14/2023 How often do you attend [facility] or hoahaoism services? 1 to 4 times per year 05/14/2023 Do you belong to any clubs o r organizations such as bahai groups, unions, fraternal or athletic groups, or [...] in a assisted (including now)? No 05/14/2023 [place] Depression Scale Answer Date Recorded [place] Depression Scale Total 0 06/24/2023 The thought [...] on file Legal Sex Female 7:54 PM DUB ROOM ENGINEER Gender Identity Not on file Sexual Orientation Not on file Last Filed Vital Signs Vital Sign Reading Time Taken Comments Blood Pressure 119/75 12/11/2023 2:53 PM CDT Pulse 95 12/11/2023 2:53 PM CDT Temperature 36.3 C (97.3 F) 12/11/2023 2:53 PM CDT Respiratory Rate 16 05/14/2023 7:00 AM DUB ROOM ENGINEER Oxygen Saturation 96% 12/11/2023 2:53 PM CDT Inhaled Oxygen Concentration - - Weight 108.9 kg (240 lb) 12/11/2023 2:53 PM CDT Height 157.5 cm (5' 2 ) 12/11/2023 2:53 PM CDT Body Mass Index 43.9 12/11/2023 2:53 PM CDT Plan of Treatment Not on file Medical Devices Implanted Type Area Fringe Knotter Device Identifier Shelf Expiration Date Model / [...] GENERAL ORDERABLES Final Result [facility] Department [place] [address] from Last 3 Months or Most Recently Relevant to Health Maintenance Insurance [facility] H[facility]PPO Address: [address] [address] [place] [address] [place] [facility] CHO[facility] H[facility]/PPO Address: [address] [address] [place] [address] [facility] [facility] HMO/PPO Address: [address] [address] [place] [id number] [facility] CHO[facility] H[facility]/PPO Address: [facility] [id number] [place] [address] Advance Directives For more information, please contact: [phone] * Full Code (Latest Code Status on [...] in case of cardiopulmonary arrest Care Teams Flight Inspector Relationship Specialty Start Date End Date Judy Fishman NP [address] [address] PCP - General 07/31/18 Jessica Martínez MD [address] [address] Consulting Physician Obstetrics and Gynecology 11/16/20
--- OUTSIDE RECORDS SUMMARY | 2024-06-01 16:19 | XMS_ITS | Data Portability ---
Author Organization [place] - [facility] [employer], Main Office Address [address] [place] [address] Assessment No assessment recorded. Plan of Treatment [...] By Organization Details Last Modified Time 11/22/2022 [id number] 6 mo fu crohn's, htn, etc. [email or web address] Not available 11/22/2022 10:42:40 Reason for Referral None Reported. Results Created Date Observation Date Name Description Value Unit Range Abnormal Flag Note LastModifiedBy Organization Detail LastModifiedTime 04/12/20 22 04/13/2022 HEMOG LOBIN A1C hemoglobin A1C 5.6 %_of_ total _HGB <5.7 normal For the purpo se of maryan sales for the prese nce of diabe amribell: <5.7% Consi stent with the absen ce [...] of diabe maribell in child david. Accor dmoo to Ameri can Diabe maribell Assoc iatio n (ADA) guide lines , hemog lobin A1c <7.0% repre sents optim al contr ol in non-p regna nt diabe tic patie nts. Diffe rent metri cs may apply to speci fic patie nt popul ation s. Stand ards of Medic al Care in Diabe maribell(A DA). Not Available [address], [address], 04/13/2022 06:48:05 04/12/20 22 04/13/2022 TSH W/REF ADAL TO FT4 TSH w/reflex to FT4 0.53 mIU/L normal Refer ence Range > or = 20 Years 0.40- 4.50 Pregn hermann Range s First trime ster 0.26- 2.66 Secon d trime ster 0.55- 2.73 Third trime ster 0.43- 2.91 Not Available [address], [address], 04/13/2022 06:48:04 04/12/20 22 04/13/2022 CBC (INCL UDES DIFF/ PLT) white blood cell count 9.9 thous and/u L 3.8-10 .8 normal Not Available [address], [address], 04/13/2022 06:48:04 04/12/20 22 04/13/2022 CBC (INCL UDES DIFF/ PLT) red blood cell count 4.57 dalila on/uL 3.80-5 .10 normal Not Available [address], [address], 04/13/2022 06:48:04 04/12/20 22 04/13/2022 CBC (INCL UDES DIFF/ PLT) hemoglobin 11.7 g/dL 11.7-1 5.5 normal Not Available [address], [address], 04/13/2022 06:48:04 04/12/20 22 04/13/2022 CBC (INCL UDES DIFF/ PLT) hematocrit 36.6 % 35.0-4 5.0 normal Not Available [address], [address], 04/13/2022 06:48:04 04/12/20 22 04/13/2022 CBC (INCL UDES DIFF/ PLT) MCV 80.1 fL 80.0-1 00.0 normal Not Available [address], [address], 04/13/2022 06:48:04 04/12/20 22 04/13/2022 CBC (INCL UDES DIFF/ PLT) MCH 25.6 pg 27.0-3 3.0 low Not Available [address], [address], 04/13/2022 06:48:04 04/12/20 22 04/13/2022 CBC (INCL UDES DIFF/ PLT) MCHC 32.0 g/dL 32.0-3 6.0 normal Not Available [address], [address], 04/13/2022 06:48:04 04/12/20 22 04/13/2022 CBC (INCL UDES DIFF/ PLT) RDW 15.1 % 11.0-1 5.0 high Not Available [address], [address], 04/13/2022 06:48:04 04/12/20 22 04/13/2022 CBC (INCL UDES DIFF/ PLT) platelet count 354 thous and/u L 140-40 0 normal Not Available [address], [address], 04/13/2022 06:48:04 04/12/20 22 04/13/2022 CBC (INCL UDES DIFF/ PLT) MPV 10.3 fL 7.5-12 .5 normal Not Available [address], [address], 04/13/2022 06:48:04 04/12/20 22 04/13/2022 CBC (INCL UDES DIFF/ PLT) absolute neutrophils 6475 cells /uL 1500-7 800 normal Not Available [address], [address], 04/13/2022 06:48:04 04/12/20 22 04/13/2022 CBC (INCL UDES DIFF/ PLT) absolute lymphocytes 2604 cells /uL 850-39 00 normal Not Available [address], [address], 04/13/2022 06:48:04 04/12/20 22 04/13/2022 CBC (INCL UDES DIFF/ PLT) absolute monocytes 465 cells /uL 200-95 0 normal Not Available [address], [address], 04/13/2022 06:48:04 04/12/20 22 04/13/2022 CBC (INCL UDES DIFF/ PLT) absolute eosinophils 317 cells /uL 15-500 normal Not Available [address], [address], 04/13/2022 06:48:04 04/12/20 22 04/13/2022 CBC (INCL UDES DIFF/ PLT) absolute basophils 40 cells /uL 0-200 normal Not Available [address], [address], 04/13/2022 06:48:04 04/12/20 22 04/13/2022 CBC (INCL UDES DIFF/ PLT) neutrophils 65.4 % normal Not Available [address], [address], 04/13/2022 06:48:04 04/12/20 22 04/13/2022 CBC (INCL UDES DIFF/ PLT) lymphocytes 26.3 % normal Not Available [address], [address], 04/13/2022 06:48:04 04/12/20 22 04/13/2022 CBC (INCL UDES DIFF/ PLT) monocytes 4.7 % normal Not Available [address], [address], 04/13/2022 06:48:04 04/12/20 22 04/13/2022 CBC (INCL UDES DIFF/ PLT) eosinophils 3.2 % normal Not Available [address], [address], 04/13/2022 06:48:04 04/12/20 22 04/13/2022 CBC (INCL UDES DIFF/ PLT) basophils 0.4 % normal Not Available [address], [address], 04/13/2022 06:48:04 04/12/20 22 04/13/2022 COMPR EHENS MONSTER METAB OLIC PANEL glucose 93 mg/dL 65-99 normal Fasti ng refer ence inter vanessa Not Available [address], [address], 04/13/2022 06:48:03 04/12/20 22 04/13/2022 COMPR EHENS MONSTER METAB OLIC PANEL urea nitrogen (BUN) 10 mg/dL 7-25 normal Not Available [address], [address], 04/13/2022 06:48:03 04/12/20 22 04/13/2022 COMPR EHENS MONSTER METAB OLIC PANEL creatinine 0.59 mg/dL 0.50-0 .96 normal Not Available [address], [address], 04/13/2022 06:48:03 04/12/20 22 04/13/2022 COMPR EHENS OMNSTER METAB OLIC PANEL eGFR 125 mL/mi n/1.7 3m2 > or = 60 normal The eGFR is based on the CKD-E PI 2020 equat ion. To calcu late the new eGFR from a previ ous Creat inine or Cysta tin C resul t, go to https ://ernesto celaya.[email or web address] parkinson/[email or web address] taylor s/ kdoqi /gfr% 5Fcal culat or Not Available [address] [address] [place], [address], 04/13/2022 06:48:03 04/12/20 22 04/13/2022 COMPR EHENS MONSTER METAB OLIC PANEL BUN/creatini ne ratio not applic able (calc ) 6-22 Not Available [address], [address], 04/13/2022 06:48:03 04/12/20 22 04/13/2022 COMPR EHENS MONSTER METAB OLIC PANEL sodium 141 mmol/ L 135-14 6 normal Not Available [address], [address], 04/13/2022 06:48:03 04/12/20 22 04/13/2022 COMPR EHENS MONSTER METAB OLIC PANEL potassium 4.4 mmol/ L 3.5-5. 3 normal Not Available [address], [address], 04/13/2022 06:48:03 04/12/20 22 04/13/2022 COMPR EHENS MONSTER METAB OLIC PANEL chloride 107 mmol/ L 98-110 normal Not Available [address], [address], 04/13/2022 06:48:03 04/12/20 22 04/13/2022 COMPR EHENS MONSTER METAB OLIC PANEL carbon dioxide 27 mmol/ L 20-32 normal Not Available [address] [address] [place], [address], 04/13/2022 06:48:03 04/12/20 22 04/13/2022 COMPR EHENS MONSTER METAB OLIC PANEL calcium 8.9 mg/dL 8.6-10 .2 normal Not Available [address], [address], 04/13/2022 06:48:03 04/12/20 22 04/13/2022 COMPR EHENS MONSTER METAB OLIC PANEL protein, total 6.9 g/dL 6.1-8. 1 normal Not Available [address], [address], 04/13/2022 06:48:03 04/12/20 22 04/13/2022 COMPR EHENS MONSTER METAB OLIC PANEL albumin 3.9 g/dL 3.6-5. 1 normal Not Available [address], [address], 04/13/2022 06:48:03 04/12/20 22 04/13/2022 COMPR EHENS MONSTER METAB OLIC PANEL globulin 3.0 g/dL_ (calc ) 1.9-3. 7 normal Not Available [address], [address], 04/13/2022 06:48:03 04/12/20 22 04/13/2022 COMPR EHENS MONSTER METAB OLIC PANEL albumin/glob ulin ratio 1.3 (calc ) 1.0-2. 5 normal Not Available [address], [address], 04/13/2022 06:48:03 04/12/20 22 04/13/2022 COMPR EHENS MONSTER METAB OLIC PANEL bilirubin, total 0.4 mg/dL 0.2-1. 2 normal Not Available [address], [address], 04/13/2022 06:48:03 04/12/20 22 04/13/2022 COMPR EHENS MONSTER METAB OLIC PANEL alkaline phosphatase 77 U/L 31-125 normal Not Available [address] [place], [address], 04/13/2022 06:48:03 04/12/20 22 04/13/2022 COMPR EHENS MONSTER METAB OLIC PANEL AST 12 U/L 10-30 normal Not Available [address] [address] [place], [address], 04/13/2022 06:48:03 04/12/20 22 04/13/2022 COMPR EHENS MONSTER METAB OLIC PANEL ALT 17 U/L 6-29 normal Not Available [address] [place], [address], 04/13/2022 06:48:03 04/12/20 22 04/13/2022 LIPID PANEL , STAND DUSTIN cholesterol, total 132 mg/dL <200 normal Not Available [address], [address], 04/13/2022 06:48:03 04/12/20 22 04/13/2022 LIPID PANEL , STAND DUSTIN HDL cholesterol 36 mg/dL > or = 50 low Not Available [address], [address], 04/13/2022 06:48:03 04/12/20 22 04/13/2022 LIPID PANEL , STAND DUSTIN triglyceride s 98 mg/dL <150 normal Not Available [address], [address], 04/13/2022 06:48:03 04/12/20 22 04/13/2022 LIPID PANEL , STAND DUSTIN LDL-choleste rol 78 mg/dL _(kim c) normal Refer ence range : <100 Eileen able range <100 mg/dL for prima ry preve ntion ; <70 mg/dL for patie nts with CHD or diabe tic patie nts with > or = 2 CHD risk facto rs. LDL-C is now calcu lated using the [facility] n-Hop kins calcu fatou n, which is a valid ated novel metho d provi ding edy r accur acy than the Fried ketty equat ion in the estim ation of LDL-C . Leslie n SS et al. SANCHEZ. 2013; 310(1 9): 2061- 2068 (http ://ed ucati on.Qu Alexey nicoleM2TECH. com/f aq/FA Q164) Not Available [address] [address] [address], [place], [address], 04/13/2022 06:48:03 04/12/20 22 04/13/2022 LIPID PANEL , STAND DUSTIN chol/HDLC ratio 3.7 (calc ) <5.0 normal Not Available [address] [address] [address], [place], [address], 04/13/2022 06:48:03 04/12/20 22 04/13/2022 LIPID PANEL , STAND DUSTIN non HDL cholesterol 96 mg/dL _(kim c) <130 normal For patie nts with diabe maribell plus 1 major ASCVD risk facto r, treat ing to a non-H DL-C goal of <100 mg/dL (LDL- C of <70 mg/dL ) is toby schultz n. Not Available [facility] [address] [address] , [place], [address], 04/13/2022 06:48:03 Result Notes None recorded. Problems Name Problem SNOMED Code Status Onset Date Resolution Date Notes Provider Name and Address Organization Details Recorded Time Abscess 862567195 Completed Not Available [facility] 3 09:24:18 Acute sinusiti s 63368275 Completed Not Available [facility] 3 09:24:18 Pain in throat 607855913 Completed Not Available [facility] 3 09:24:18 Dry skin 82814759 Completed 201612/03/2016 Not Available [facility] 3 09:24:19 Impacted cerumen 79789317 Completed 201612/03/2016 Not Available [facility] 3 09:24:19 Fluid level behind tympanic membrane Completed Not Available [facility] 3 09:24:19 Gastroen teritis 09457596 Completed Not Available [facility] 3 09:24:19 On examinat ion - rash present Completed Not Available [facility] 3 09:24:19 Eruption 635731693 Completed Not Available [facility] 3 09:24:19 Pruritic disorder 934237840 Completed Not Available [facility] 3 09:24:19 Crohn's disease 00924826 Active [address] Trent Severino MD GI. Not Available [facility] 3 09:24:19 Fever 526424919 Completed Not Available [facility] 3 09:24:19 Pharyngi tis 300643087 Completed Not Available [facility] 3 09:24:20 Itching of skin 902248457 Completed Not Available [facility] 3 09:24:20 Cough 93017654 Completed Not Available [facility] 3 09:24:20 Upper respirat ory infectio n 00665133 Completed Not Available [facility] 3 09:24:20 Swelling 51245636 Completed 201612/03/2016 Not Available [facility] 3 09:24:20 Posterio r rhinorrh ea 58799741 Completed Not Available [facility] 3 09:24:20 Congesti on of nasal sinus 89427608 Completed Not Available [facility] 3 09:24:20 Fatigue 57384561 Completed Not Available [facility] 3 09:24:21 Obese 320889022 Active 2022 Judy Fishman NP [address] [facility] [facility] [address], [place], [address] , [facility] 3 08:20:25 Problem Notes None recorded. Medical Equipment None Reported. Allergies Allergen ID Allergen Name Allergen Category Reaction Reaction Severity Criticality Documentation Date Start Date Code Code System Note Provider Name and Address Organization Details Recorded Time 70903 Substance with sulfonami de structure and antibacte rial mechanism of action (substanc e) medicatio n anaphylax is Not available Not available 06/12/2022 57504 8003 SNOMED Not Available [facility] 3 09:27:25 26241 Omnicef medicatio n anaphylax is Not available Not available 06/12/2022 03161 RxNorm Not Available [facility] 3 09:27:25 83557 morphine medicatio n itching Not available Not available 06/12/2022 7052 RxNorm Not Available [facility] 3 09:27:25 41719 iodine medicatio n rash moderate Not available 06/12/2022 5933 RxNorm Used iodin e to prep for gallb ladde r remov al Not Available [facility] 3 09:27:26 52671 clindamyc in Not available Not available Not available Not available 06/12/2022 2582 RxNorm Not Available [facility] 3 09:27:26 Medications Name Sig Start Date Stop Date Status Note LastModified by Organization Details LastModified Time cyclobenz aprine 10 mg tablet TK 1 T PO HS 09/26 completed as needed Not Available Not Available Not Available metformin 500 mg tablet Take 1 tablet twice a day by oral route for 90 days. 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 95 g 835686. 32 g 803675. 12 g 118 mm[Hg] 76 mm[Hg] 138 mm[Hg] 90 mm[Hg] 132 mm[Hg] 77 mm[Hg] Not Available [facility] 3 09:21:47 Date Recorded Body height Body mass index (BMI) Body weight Body temperature Heart rate Respiratory rate Oxygen saturation Oxygen saturation in Arterial blood by Pulse oximetry Pain severity - 0-10 verbal numeric rating [Score] - Reported Systolic blood pressure Diastolic blood pressure Provider Name and Address Organization Details Last Updated DateTime 3 157.48 cm 43.8 kg/m2 189395. 68 g 97 [degF] 89 /min 16 /min 98 % 98 % 0 128 mm[Hg] 80 mm[Hg] Judy Carrillo RN [facility] [employer] 3 10:07:36 Social History Question Answer Notes LastModified by Organizat ion Details LastModified Time Tobacco Smoking Status Former Smoker Judy Carrillo RN [facility], [facility] 11/22/2022 10:08:27 Do You Have An Advance Directive? No [id number] Information not available 06/12/2022 What Is Your Level Of Alcohol Consumption? Occasional MIGRATION.87278 42043 Information not available 06/12/2022 Is Blood Transfusion Acceptable In An Emergency? Yes Information not available 11/22/2022 What Is Your Level Of Caffeine Consumption? Moderate MIGRATION.44446 85436 Information not available 06/12/2022 What Is Your Code Status? Full Code critical access [email or web address] Information not available 11/22/2022 In The 14 Days Before Symptom Onset, Have You Had Close Contact With A Laboratory-confi rmed COVID-19 While That Case Was Ill? No MIGRATION.51622 [id number] Information not available 06/12/2022 In The 14 Days Before Symptom Onset, Have You Had Close Contact With A Person Who Is Under Investigation For COVID-19 While That Person Was Ill? No MIGRATION.11923 71901 Information not available 06/12/2022 What Type Of Diet Are You Following? 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 No MIGRATION.56515 17573 Information not available 06/12/2022 Are There Any Guns Present In Your Home? No MIGRATION.48998 12382 Information not available 06/12/2022 Do You Use Insect Repellent Routinely? Yes Information not available 11/22/2022 [facility] Information not available 11/22/2022 Do You Have A Medical Power Of Job Development Specialist? No MIGRATION.28169 73541 Information not available 06/12/2022 Do You Have Any Pets? Yes Information not available 11/22/2022 What Is Your Relationship Status? Single MIGRATION.51837 42621 Information not available 06/12/2022 Do You Use Your Seat Belt Or Car Seat Routinely? Yes MIGRATION.95093 05626 Information not available 06/12/2022 Do You Have Smoke And Carbon Monoxide Detectors In Your Home? Yes Information not available 11/22/2022 At What Age Did You Start Smoking Tobacco? 19 MIGRATION.58156 88842 Information not available 06/12/2022 Are You Passively Exposed To Smoke? No MIGRATION.09397 96803 Information not available 06/12/2022 Are There Any Smokers In Your House? No MIGRATION.61848 33391 Information not available 06/12/2022 How Much Tobacco Do You Smoke? 0.25 PPD MIGRATION.52301 80022 Information not available 06/12/2022 Do You Participate In Social Media? Yes Information not available 11/22/2022 Do You Feel Stressed (tense, Restless, Nervous, Or Anxious, Or Unable To Sleep At Night)? [id number] Information not available 11/22/2022 Do You Use Any Illicit Or Recreational Drugs? No MIGRATION.64361 24505 Information not available 06/12/2022 Do You Use Sunscreen Routinely? Yes Information not available 11/22/2022 Has Tobacco Cessation Counseling Been Provided? No MIGRATION.81999 19032 Information not available 06/12/2022 Have You Recently Traveled Abroad? No MIGRATION.31151 72322 Information not available 06/12/2022 Are You Currently In School? No MIGRATION.88079 25383 Information not available 06/12/2022 Do You Have Any Dietary Restrictions? No MIGRATION.09057 22488 Information not available 06/12/2022 Do You Or Have You Ever Used Any Other Forms Of Tobacco Or Nicotine? No MIGRATION.42276 28345 Information not available 06/12/2022 Sex: Female Functional [...] virus, quadrivalent, preservative 7 completed Not Available [facility] 06/12/2022 09:27:10 Influenza, split virus, trivalent, preservative 6 completed Not Available [facility] 06/12/2022 09:27:11 SARS-COV-2 (COVID-19) vaccine, UNSPECIFIED 2 completed Not Available [facility] 06/12/2022 09:27:11 SARS-COV-2 (COVID-19) vaccine, UNSPECIFIED 1 completed Not Available [facility] 06/12/2022 09:27:11 SARS-COV-2 (COVID-19) vaccine, UNSPECIFIED 1 completed Not Available [facility] 06/12/2022 09:27:11 Influenza, split virus, trivalent, preservative 4 completed Not Available [facility] 06/12/2022 09:27:11 Influenza, split virus, trivalent, preservative 3 completed Not Available [facility] 06/12/2022 09:27:11 varicella 3 completed Not Available [facility] 06/12/2022 09:27:12 Past Encounters Encounter ID Performer Location Encounter Start Date Encounter Closed Date Diagnosis/Indication Diagnosis SNOMED-CT Code Diagnosis ICD10 Code Diagnosis Note [id number] [facility] [address] [place] [id number] 1 01/04/2021 00:00:00 01/04/2021 15:26:21 [id number] [facility] [address] [place] [id number] 1 09/28/2021 00:00:00 09/28/2021 12:11:20 [id number] [facility] [address] [place] [id number] 1 03/29/2022 00:00:00 03/29/2022 13:39:51 [id number] [facility] [address] [place] [id number] 1 05/03/2022 00:00:00 05/03/2022 10:36:37 [id number] Judy Fishman NP [facility] [address] [place] [id number] 1 11/22/2022 09:51:09 11/22/2022 10:44:14 Crohn's disease 76295515 K50.90 Seeing GI. Stable. On biologic. Fighting insurance currently to get medication covered. Getting through home health and working great, every 4 weeks. Obese 017119855 E66.9 Diet and exercise. 75224983 Z33.1 currently 14 weeks with daughter and JONNATHAN 05/23/23 Health Concerns Section Related Observation LastModified by Organization Detai ls LastModified Time None Recorded Concern Status LastModified by Organization Details LastModified Time None Recorded Advance Directives Directive N: Payers Encounter Date Sequence Insurance Name Policy Number Policy [place] Covered Member ID [place] Member ID Guarantor Name 11/22/2022 1 [employer] - [facility] - CHOICE PLUS (PPO) [id number] Ramírez Charo [id number] Liliana Mancilla Notes Date Note Type Note Provider Name and Address Organization Details Recorded Time 11/22/2022 text/html Here for 6 mo fu . BP- Stable. on ASA 81 mgCrohn's disease- Getting home health to provide medication.Obese- Overweight Currently 14 weeks . Hx pre-eclampsia on ASA 81 mg. Working as usual. JONNATHAN: may 23, but son was 3 weeks early. Judy Fishman NP [address] [facility] [address], [place], [address], [place] [email or web address] 11/22/2022 10:42:56 OBGyn Episode No OBEpisode recorded.
[2024-06-01 16:27] VITALS: BP 119/72; PULSE 98; RESP 17; TEMP 36.2; O2SAT 100
--- NOTE | 2024-06-01 16:35 | ED.GENADULT ---
HPI - General Adult General Chief complaint: Upper Respiratory Infection Stated complaint: sore throat History of Present Illness HPI narrative: Liliana Mancilla Is a 33-year-old female who presents today with complaints of continued sore throat. She states that she was here 2 days ago and was diagnosed with strep throat and she started her antibiotics and a night 2 days ago which was the azithromycin. She states that she is back today because she is not feeling any better. she states the last time she had amoxicillin for her strep throat she feels like that worked better. However she is allergic to clindamycin cefdinir the provider did feel comfortable giving her amoxicillin 2 days ago for her strep infection. She denies SOB/CP/Difficulty swallowing. Related Data Home Medications ?Medication ?Instructions ?Recorded ?Confirmed ?Last Taken ?Type vedolizumab 300 mg intravenous 300 mg IV .monthy 07/11/23 02/27/24 Unknown History solution (Entyvio) cetirizine 10 mg capsule (All Day 10 mg PO DAILY PRN 02/27/24 02/27/24 Unknown History Allergy (cetirizine)) Allergies Allergy/AdvReac Type Severity Reaction Status Date / Time clindamycin Allergy Severe Anaphylaxis Verified 06/01/24 16:33 cefdinir Allergy Unknown Anaphylactic Verified 06/01/24 16:33 Shock iodine Allergy Unknown rash Verified 06/01/24 16:33 povidone-iodine Allergy Unknown RASH Verified 06/01/24 16:33 soap Allergy Unknown RASH Verified 06/01/24 16:33 Sulfa (Sulfonamide Allergy Unknown Anaphylactic Verified 06/01/24 16:33 Antibiotics) Shock morphine AdvReac Intermediate Itching Verified 06/01/24 16:33 Review of Systems Review of Systems: All systems reviewed & are unremarkable except as noted in HPI and below PMFSH Past Medical History Medical History History of pre-eclampsia Obese Crohn's colitis Gestational diabetes Eustachian tube disorder Tubes and ear as child Depression ADD (attention deficit disorder) Surgical History Surgical History History of placement of ear tubes as child H/O LEEP ~2014 History of orthopedic surgery Right ankle fracture with hardware Hx of cholecystectomy Family History Family History Grandparent Hypertension Family history of dementia Heart disease Mother Diabetes mellitus Hypertension Social History Social History Smoking status: Former smoker Alcohol intake: current Substance use: never Do You Feel Safe in your Home?: Yes Lack of Transportation: No Lack of Food: Never True Current Housing: I Have Housing Concerned About Future Housing: No Difficulty Paying Gas/Electric Bills: No Difficulty Paying for Meds: No Currently Unemployed: No Education: Don't Know Difficulty w/ Childcare or Family Care: No Living arrangements: with family Occupation/Education: occupation 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 HEAD: Normocephalic, atraumatic. EYES: PERRLA and EOMI. ENT: Nares clear, no rhinorrhea or epistaxis. Mucous membranes moist. Oropharynx + erythema with bilateral tonsillar hypertrophy +3 no obvious exudate or other lesions, . Bilateral TMs pearly bryan non-bulging. NECK: Supple. No adenopathy or masses. No carotid bruits or JVD CHEST: Clear to auscultation. No respiratory distress. No wheezes rales or rhonchi HEART: Regular rate and rhythm. No murmur heard. Normal peripheral pulses. EXTREMITIES: Normal range of motion. No edema. SKIN: Warm, dry, no rash. NEURO: No focal deficits. Alert and oriented x3. PSYCH: Normal mood and affect. Course Course Level of Care: Express Care Visit Vital Signs Vital signs: Vital Signs Temperature 36.2 C L 06/01/24 16:27 Pulse Rate 98 06/01/24 16:27 Respiratory Rate 17 06/01/24 16:27 Blood Pressure 119/72 06/01/24 16:27 Pulse Oximetry 100 06/01/24 16:27 Oxygen Delivery Room Air 06/01/24 16:27 Temperature 36.2 C L 06/01/24 16:27 Pulse Rate 98 06/01/24 16:27 Respiratory Rate 17 06/01/24 16:27 Blood Pressure 119/72 06/01/24 16:27 Pulse Oximetry 100 06/01/24 16:27 Oxygen Delivery Room Air 06/01/24 16:27 Medical Decision Making MDM Narrative Medical decision making narrative: 33-year-old who presents after starting antibiotics 2 days ago for strep infection he states that she does not feel like she is getting any better. With continued sore throat. On exam there is erythema in the oropharynx and she bilateral tonsil erythema and swelling +3. Airway is intact. there is no unilateral swelling for concern peritonsillar abscess. Lung sounds clear respirations even unlabored she has taken Tylenol for pain but not taken any Motrin. Checking viral swab to ensure she is not anything else that could be causing her symptoms viral swab- negative I discussed with patient that I do not feel comfortable changing her antibiotics mid course of azithromycin. Azithromycin can be used to treat strep infection. And with her allergies to cefdinir it does seem that it could be risky starting her on amoxicillin. She verbalized understanding and denies eating anything further I let her know that I believe that she should start to feel improvement in the next couple days but she had all has any worsening symptoms increased swelling unable to tolerate liquids to return or go to the ER. She verbalizes understanding and all questions answered. Medical Records Medical records reviewed: Yes I reviewed the external patient's medical records. Vital Signs Vital Signs: Vital Signs Temperature 36.2 C L 06/01/24 16:27 Pulse Rate 98 06/01/24 16:27 Respiratory Rate 17 06/01/24 16:27 Blood Pressure 119/72 06/01/24 16:27 Pulse Oximetry 100 06/01/24 16:27 Oxygen Delivery Room Air 06/01/24 16:27 Temperature 36.2 C L 06/01/24 16:27 Pulse Rate 98 06/01/24 16:27 Respiratory Rate 17 06/01/24 16:27 Blood Pressure 119/72 06/01/24 16:27 Pulse Oximetry 100 06/01/24 16:27 Oxygen Delivery Room Air 06/01/24 16:27 Vitals reviewed by me Lab Data Lab results reviewed: Yes I reviewed the patient's lab results. Discharge Plan Discharge Clinical Impression: Strep pharyngitis Patient Disposition: Home, Self-Care Condition: Stable Instructions: Antibiotic Form Additional Instructions: Continue the Azithromycin as ordered You may also try the Lozenges to help with the sore throat Continue Tylenol for pain Follow up with your PCP in 3-5 days I expect you to feel improvement in the next couple days If you develop any worsening symptoms or concerns return or proceed to the ER Patient Language: Greek Prescriptions: New benzocaine 15 mg lozenge 15 mg mucous membrane Q3H PRN (Reason: sore throat) Qty: 18 0RF No Action azithromycin [Zithromax Z-Margarito] 250 mg tablet See Rx Instructions .ROUTE .COMPLEX Qty: 6 0RF Rx Instructions: For 250 mg dose pack: take 500 mg today (day 1), then 250 mg for 4 days (days 2-5) Entyvio 300 mg recon soln 300 mg IV .monthy Rx Instructions: administer over 30 mins All Day Allergy (cetirizine) 10 mg capsule 10 mg PO DAILY PRN dextroamphetamine-amphetamine 20 mg capsule,extended release 24hr 20 mg PO DAILY Qty: 30 0RF etonogestrel-ethinyl estradiol [NuvaRing] 0.12-0.015 mg/24 hr ring 1 vag ring vaginal Q21D Qty: 4 1RF Rx Instructions: place ring vaginally every 21 days to skip cycles Follow-up/Referrals: Judy Fishman APRN [Primary Care Provider] - 1 Week Time of Disposition: 16:44
[2024-06-01 16:43] LABS: EDINFLUASCREEN Negative (Negative); EDINFLUBSCREEN Negative (Negative)
== END 2024-06-01 16:59 | disposition home or self-care (01) ==
PROVIDERS: Emergency Provider Nurse Practitioner Family; PCP Nurse Practitioner Family
DX: J02.0 Streptococcal pharyngitis (principal); K50.90 Crohn's disease, unspecified, without complications; E66.9 Obesity, unspecified; F98.8 Other specified behavioral and emotional disorders with onset usually occurring in childhood and adolescence
CPT/HCPCS: 87804; 99213; G0463

== ENCOUNTER 2024-09-12 16:29 | Emergency (ER) | payer OTHER, SELFPAY ==
[2024-09-12 16:35] VITALS: BP 121/72; PULSE 99; RESP 18; TEMP 36.8; O2SAT 100
--- NOTE | 2024-09-12 16:36 | ED.SKABFB ---
HPI - Skin/Abscess/Foreign Bdy General Chief complaint: Skin/Abscess/Foreign Body Stated complaint: Rash patient presents to the [facility] with complaints of rash following sunburn. Patient reports she was in [place] on vacation and did get a sunburn even with sunscreens noted she has been using aloe, Tylenol, ibuprofen, pepcid, benadryl, and other topical medications with minimal relief of symptoms. Patient reports this is not the 1st time she has had a rash after sunburn but usually she can manage this with qhdm-tio-dldudne medications and get this to resolve. Denies tongue swelling, lip swelling, or drainage from the rash. Source: patient Mode of arrival: ambulatory Related Data Home Medications ?Medication ?Instructions ?Recorded ?Confirmed ?Last Taken ?Type vedolizumab 300 mg intravenous 300 mg IV .monthy 07/11/23 06/18/24 Unknown History solution (Entyvio) cetirizine 10 mg capsule (All Day 10 mg PO DAILY PRN 02/27/24 06/18/24 Unknown History Allergy (cetirizine)) Allergies Allergy/AdvReac Type Severity Reaction Status Date / Time cefdinir Allergy Severe Anaphylactic Verified 09/12/24 16:32 Shock clindamycin Allergy Severe Anaphylaxis Verified 09/12/24 16:32 Sulfa (Sulfonamide Allergy Severe Anaphylactic Verified 09/12/24 16:32 Antibiotics) Shock iodine Allergy Mild rash Verified 09/12/24 16:32 povidone-iodine Allergy Mild RASH Verified 09/12/24 16:32 soap Allergy Mild RASH Verified 09/12/24 16:32 morphine AdvReac Mild Itching Verified 09/12/24 16:32 Review of Systems Constitutional: Constitutional: Reports as per HPI, Denies chills, Denies fatigue, Denies fever(s) and Denies weakness Eyes: Eyes: Reports no additional eye complaints ENT: Reports system reviewed and no additional complaints, except as documented Cardiovascular: Cardiovascular: Reports no additional cardiovascular complaints Respiratory: Respiratory: Reports no additional respiratory complaints Gastrointestinal: Gastrointestinal: Reports no additional gastrointestinal complaints Genitourinary: Genitourinary: Reports no additional female genitourinary complaints Musculoskeletal: Musculoskeletal: Reports no additional musculoskeletal complaints Integumentary/Breasts: Skin/Breast: Reports pruritus, Reports erythema, Reports rash and Denies skin ulcer Neurologic: Reports system reviewed and no additional complaints, except as documented Psychiatric: Psychiatric: Reports no additional psychiatric complaints Endocrine: Endocrine: Reports no additional endocrine complaints Hematologic/Lymphatic: Hematologic/Lymphatic: Reports no additional hematologic/lymphatic complaints Allergic/Immunologic: Allergic/Immunologic: Reports no additional allergic/immunologic complaints [facility] Past Medical History Medical History History of pre-eclampsia Obese Crohn's colitis Gestational diabetes Eustachian tube disorder Tubes and ear as child Depression ADD (attention deficit disorder) Surgical History Surgical History History of placement of ear tubes as child H/O LEEP ~2014 History of orthopedic surgery Right ankle fracture with hardware Hx of cholecystectomy Family History Family History Grandparent Hypertension Family history of dementia Heart disease Mother Diabetes mellitus Hypertension Social History Social History Smoking status: Former smoker Alcohol intake: current Substance use: never Do You Feel Safe in your Home?: Yes Lack of Transportation: No Lack of Food: Never True Current Housing: I Have Housing Concerned About Future Housing: No Difficulty Paying Gas/Electric Bills: No Difficulty Paying for Meds: No Currently Unemployed: No Education: Don't Know Difficulty w/ Childcare or Family Care: No Living arrangements: with family Occupation/Education: occupation 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 Agree to blood products: Yes Exam Const: General: healthy appearing and no acute distress; No diaphoretic or ill appearing Nutritional Appearance: well nourished Orientation/consciousness: patient oriented x3 Limitations: no limitations HENMT: Head: normal to inspection Mouth: Yes Normal oral and palatal mucosa present, Yes lip normal and Yes moist mucous membranes Resp: Effort & Inspection: normal respiratory effort Auscultation: clear to auscultation bilaterally Cardio: Rate: regular rate Rhythm: regular rhythm Skin: Rashes: rash noted Wounds: no wounds Other: diffuse papular rash to bilateral forearms, dorsum of bilateral hands, anterior bilateral thighs, and dorsum of bilateral feet- no active drainage or crusting noted. Neuro: General: patient oriented x3 Speech: normal speech Gait exam (Neuro): Normal gait present Extrem: General: no clubbing, cyanosis or edema, no pedal edema and no edema Psych: Mental Status: mental status grossly normal Affect: normal affect Attitude: cooperative Course Course Level of Care: Express Care Visit Vital Signs Vital signs: Vital Signs Temperature 98.2 F 09/12/24 16:35 Pulse Rate 99 09/12/24 16:35 Respiratory Rate 18 09/12/24 16:35 Blood Pressure 121/72 09/12/24 16:35 Pulse Oximetry 100 09/12/24 16:35 Oxygen Delivery Room Air 09/12/24 16:35 Temperature 98.2 F 09/12/24 16:35 Pulse Rate 99 09/12/24 16:35 Respiratory Rate 18 09/12/24 16:35 Blood Pressure 121/72 09/12/24 16:35 Pulse Oximetry 100 09/12/24 16:35 Oxygen Delivery Room Air 09/12/24 16:35 MDM - Skin/Abscess/Foreign Bdy MDM Narrative Medical decision making narrative: Unable to call in prescriptions spoke with pharmacist at [facility] triamcinolone cream and prednisone taper Discharge instructions reviewed with patient, as well as provided in writing per nursing staff. The instructions also include specific and strict return/GO TO THE ER as well as f/u information. All questions have been answered, and the patient deny any further questions with discharge and discharge plan. Differential Diagnosis Differential diagnosis: Likely urticaria, allergic reaction to drug, cellulitis and contact dermatitis Medical Records Attestation: I reviewed the patient's medical records. Discharge Plan Discharge Clinical Impression: Contact dermatitis Patient Disposition: Home Condition: Stable Instructions: Antibiotic Form, Acute Rash (ED), Dermatitis (ED) Patient Language: Kuwaiti Prescriptions: No Action ondansetron 8 mg tablet,disintegrating 8 mg PO Q12H Qty: 20 0RF Entyvio 300 mg recon soln 300 mg IV .monthy Rx Instructions: administer over 30 mins All Day Allergy (cetirizine) 10 mg capsule 10 mg PO DAILY PRN etonogestrel-ethinyl estradiol [NuvaRing] 0.12-0.015 mg/24 hr ring 1 vag ring vaginal Q21D Qty: 4 1RF Rx Instructions: place ring vaginally every 21 days to skip cycles dextroamphetamine-amphetamine 20 mg capsule,extended release 24hr 20 mg PO DAILY Qty: 30 0RF Follow-up/Referrals: Judy Fishman APRN [Primary Care Provider] - Time of Disposition: 17:02
--- OUTSIDE RECORDS SUMMARY | 2024-09-12 18:17 | XMS_ITS | Clinical Summary ---
Author Organization [facility] Address [address] [place] [address] Care Team Providers Care Dessert Cup Machine Feeder Name Role Phone Kye Judy Peter BIOMEDICAL SERVICE ENGINEER Primary Care Provider + Jessica Martínez MD Unavailable [phone] Allergies Active Allergy Reactions Criticality Noted Date Comments Cefdinir Swelling Medium 08/05/2018 Clindamycin Swelling Medium 08/05/2018 Iodine Rash Medium 07/02/2022 Morphine Itching Low 08/05/2018 Povidone-Iodine Rash Medium 08/05/2018 And chlorahexadine Sulfa (Sulfonamide Antibiotics) Swelling Medium 07/14 Medications vedolizumab (ENTYVIO) 300 mg recon soln 5 mL (300 mg total) Active vit no.124/iron/folic ( VITAMIN ORAL) Take by mouth Active aspirin 81 mg chewable tablet Chew 1 tablet every day by oral route. Active diphenhydrAMINE HCL 25 mg tablet,disintegra ting Take 25 mg by mouth every 4 (four) hours Active acetaminophen 32 mg/mL Active blood glucose diagnostic strip Check glucose fasting and one hour after each meal and as needed, up to 8 times per day 200 each 023 Active Additional Information Patient not taking.Reported on 08/05/2024 lancets 33 gauge misc CHECK GLUCOSE FASTING AND ONE HOUR AFTER EACH MEAL AND NEEDED, UP TO 8 TIMES PER WEEK 200 each 023 Active Additional Information Patient not taking.Reported on 08/05/2024 ferrous sulfate 325 mg (65 mg of elemental iron) tabletIndications :Iron Deficiency Anemia Take 1 tablet (325 mg total) by mouth every other day 15 tablet 3 Active Additional Information Patient not taking.Reported on 08/05/2024 docusate sodium (COLACE) 100 mg capsuleIndication s:constipation Take 1 capsule (100 mg total) by mouth 2 (two) times a day as needed for constipation 60 capsule 3 Active Additional Information Patient not taking.Reported on 12/11/2023 pen needle, diabetic 33 gauge x 5/32 needle 1 INJECTIONS DAILY DIRECTED 100 each 2 023 Active Additional Information Patient not taking.Reported on 08/05/2024 insulin glargine (LANTUS) 100 unit/mL (3 mL) pen for injection Inject 10 units under the skin in the morning 15 mL 3 Active Additional Information Patient not taking.Reported on 08/05/2024 acetaminophen (TYLENOL) 325 mg tablet Take 2 tablets (650 mg total) by mouth every 6 (six) hours as needed for pain 30 tablet Active Additional Information Patient not taking.Reported on 08/05/2024 ibuprofen (ADVIL,MOTRIN) 600 mg tabletIndications :Cramps Take 1 tablet (600 mg total) by mouth every 6 (six) hours 30 tablet Active Additional Information Patient not taking.Reported on 08/05/2024 lidocaine (ASPERCREME) 4 % adhesive patch,medicated Place 2 patches on the skin daily 15 patch Active Additional Information Patient not taking.Reported on 08/05/2024 polyethylene glycol (MIRALAX) 17 gram/dose bulk powderIndications :constipation Take 17 g by mouth daily 510 g Active Additional Information Patient not taking.Reported on 08/05/2024 EnilloRing 0.12-0.015 mg/24 hr vaginal ring INSERT 1 RING VAGINALLY EVERY 21 DAYS TO SKIP CYCLES 024 Active dextroamphetamine -amphetamine XR (ADDERALL XR) 20 mg 24 hr capsule Take 1 capsule (20 mg total) by mouth daily 025 Active ondansetron ODT (ZOFRAN-ODT) 8 mg disintegrating tablet DISSOLVE 1 TABLET ON THE TONGUE EVERY 12 HOURS 025 Active cholecalciferol, vitamin D3, (VITAMIN D3 ORAL) Take by mouth QD Active ferrous sulfate (IRON ORAL) Take by mouth QD Active VITAMIN A ORAL Take by mouth QD Active cetirizine (ZyrTEC) 10 mg tablet Take 1 tablet (10 mg total) by mouth daily Active budesonide EC (ENTOCORT EC) 3 mg 24 hr capsule Take 3 capsules (9 mg total) by mouth every morning 126 capsule [address]/ER (UCERIS) 9 mg tablet, delayed & ext.releaseIndica tions:Ulcerative Colitis Take 1 tablet (9 mg total) by mouth daily 42 tablet 025 2024 Discontinued Active Problems Problem Noted Date Diagnosed Date Decreased movements in third trimester Overview (05/12/2023): Liliana Velasco is a 32 y.o. female [...] at home. MR x1 on admission to [facility]. On ASA 81 mg. Denies WHITE, [...] vaginal Assessment & Plan (04/03/2023 2:06 PM MEDICAL OFFICE TECHNICIAN): Asymptomatic, well controlled. Assessment & Plan (03/06/2023 1:18 AM MEDICAL OFFICE TECHNICIAN): Well controlled. Assessment & Plan (08/31/2021 [...] activity Assessment & Plan (05/25/2021 9:26 AM MEDICAL OFFICE TECHNICIAN): Discussed recommendation for both stool softener [...] disease. Assessment & Plan (03/30/2019 3:48 PM MEDICAL OFFICE TECHNICIAN): Ileal Crohn's disease. Diagnosed 2018. Started [...] 2019 with no perianal involvement. Current regimen: Entdarianne Gestational diabetes mellitu s, with history of [...] Plan [] Send weekly glucose log through [employer] for review [] Twice weekly NSTs scheduled next Fri/Fri, complete for BPP and growth next week to evaluate size [x] Serial growth ultrasounds, complete [] Plan delivery by 39 weeks - IOL scheduled 2/2 [] 2 hour gtt 6 weeks Assessment & Plan (03/06/2023 1:17 AM MEDICAL OFFICE TECHNICIAN): Has only taken 1 dose of increased lantus dose. Thus will continue for now. Reviewed how to transition from AM dosing to PM dosing and provided written schedule. Assessment & Plan (02/22/2023 11:29 AM MEDICAL OFFICE TECHNICIAN): Recommend initiation of lantus 10U morning [...] delivery Assessment & Plan (03/06/2023 1:18 AM MEDICAL OFFICE TECHNICIAN): BP at goal today. Assessment & Plan (02/22/2023 11:27 AM MEDICAL OFFICE TECHNICIAN): We reviewed recommendation in future to present for evaluation if has elevated BP and WHITE. Reassuring that WHITE resolved and BP today normotensive. Recommend daily BP monitoring given history. Patient has BP cuff at home that was validated at the time of receipt in last . Supervision of high-risk pre gnancy, third trimester 09/30/2022 06/24/2023 Overview (05/09/2023): [x] Full [facility] Care; [x] Blue Team Referring Provider: Trent XAVIER) [phone] [] or Medicare Insurance [x] Dating Criteria: [...] vasectomy [x] Method of feeding: Breast [x] Communication Lecturer: Pb [x] PP Depression Discussed: Assessment & Plan (02/22/2023 11:29 AM MEDICAL OFFICE TECHNICIAN): Provided [email or web address] website to review. Hypertension [...] # Disposition: Follow up task sent to [facility] scheduling pool. Desires discharge home today. pending bleeding amount Gestational diabetes mellitu s (GDM) in third trimester 04/12/2021 06/12/2021 Overview (06/05/2021): Failed 3 hour gtt Plan for PP 2 hr OGTT Assessment & Plan (05/10/2021 8:56 AM MEDICAL OFFICE TECHNICIAN): BS log reviewed with the majority of values at or under goal. Continue current regimen. Assessment & Plan (04/26/2021 5:10 PM MEDICAL OFFICE TECHNICIAN): Fastings continue to be elevated with a few elevated breakfast PCs. Will adjust bedtime insulin and have patient send log on Friday for review. Assessment & Plan (04/12/2021 1:50 PM MEDICAL OFFICE TECHNICIAN): Counseled today on diagnosed gDM. Discussed [...] [x] Blue Team Referring Provider: JESSICA Severino [phone] [facility] Jessica Mauricio: [phone]; [x] Dating Criteria: Embryo Transfer 10/03/20 with JONNATHAN 06/21/21 [x] Labs: Lab Results Component Value Date ABORH B Positive 11/24/2020 IDCOOMB Negative 11/24/2020 [id number] Nonreactive 11/24/2020 LABRPR Nonreactive 11/24/2020 RUBELIGG Reactive 11/24/2020 HEPBSAG Nonreactive 11/24/2020 HGB 11.1 (L) 11/24/2020 HCT 35.4 (L) 11/24/2020 LABPLAT 360 11/24/2020 [x] GC/CT- Neg/Neg [x] Genetic Screening: Tiger Low Risk [x] Early 1hr GTT (if [...] [] COVID testing: ordered on for the [place] location, pt letter sent Counselling [x] MOD: IOL scheduled on 06/13/21 at 9PM, pt letter sent [x] Place of delivery: [facility] [] MOC: [x] Method of feeding: breast [x] Communication Lecturer: [] PP Depression Discussed: should not be given any live vaccines. Assessment & Plan (11/24/2020 3:14 PM CDT): SEROLOGIES NEEDED [] Co-management vs. [] Full [facility]FM Care; [] Red Team [] Blue Team Referring Provider: JESSICA Severino [phone] ANTONELLA Lopez Mauricio: [phone]; [] or Medicare Insurance [x] Dating Criteria: [...] CBC/1hr gtt at 24-28wks: [] Flu Shot (Sep-Mar): [] Tdap (27-36wks): [] COVID Vaccine: discussed on 11/24, advised patient of the advantages in . Considering, will discuss at next visit. [] Rhogam at 28 wks (if Rh neg): 3rd Tri Labs: [] CBC/HIV/RPR/T&S: [] GBS: [] GC/CT (if indicated): [] COVID testing: Counselling [] MOD: [] Place of delivery: [] MOC: [] Method of feeding: [] Communication Lecturer: [] PP Depression Discussed: care not yet [...] 10/30/2022 Assessment & Plan (03/30/2019 3:48 PM MEDICAL OFFICE TECHNICIAN): High risk medications: As with all [...] stores with her upcoming infusion Crohn's colitis 10/27/2018 11/08/2018 Obesity 10/27/2018 06/12/2020 Encounters Date Type Department Care Team Description 08/30/2024 Orders Only [facility] Gastroenterology [address] [place] [address] Medicine 12th [place] [address] [place] [address] Trent Severino MD 08/27/2024 Orders Only [facility] Gastroenterology [address] [place] [address] 12th [place] [address] [place] [address] Trent Severino MD 08/26/2024 Orders Only [facility] Gastroenterology [address] [place] [address] 12th [place] [address] [place] [address] Trent Severino MD 08/26/2024 Documentation [facility] Gastroenterology [address] [place] [address] 12th [place] [address] [place] [address] Abiola Silverman, RN Treatment Plan Update 08/23/2024 Telephone [facility] Gastroenterology [address] [place] [address] [place] [id number] Hermelinda Don GI Problem 08/09/2024 Documentation [facility] Gastroenterology [address] [place] [address] [place] [id number] Abiola Silverman, RN Treatment Plan Update (08/05/2024 rov) 08/05/2024 3:30 PM CDT Office Visit [facility] Gastroenterology [address] [place] [address] [place] [phone] Lizz Clark, BINU Crohn's disease of small intestine with other complication (HCC) (Primary Dx); High risk medications (not anticoagulants) long-term use from Last 3 Months Immunizations Immunization Administration Dates Next Due Influenza, Quadrivalent, Jessica l Culture-based MDCK, Preservative Free, Antibiotic Free, Intramuscular 01/24/2023,02/07/2017 Influenza, Quadrivalent, Spl it, Intramuscular 01/13/2017 Influenza, Trivalent, IM (MDV) 02/27/2014,2012 Influenza, Trivalent, Preser vative Free, Intramuscular 04/27/2012 Influenza, Unspecified 02/12/2021 MMR 05/14/2023(Deferred: Contraindication - rubella immune) Pneumococcal Conjugate PCV 13 01/26/2019 Pneumococcal Conjugate Pcv20 08/05/2024 Pneumococcal Polysaccharide PPV23 03/30/2019 Tdap 02/21/2023,04/26/2021 Varicella 05/14/2023(Deferred: Contraindication - varicella immune) Surgical History Surgery Date Site/Laterality Comments ANKLE FRACTURE SURGERY 04/14/2008 - 04/13/2009 Right CHOLECYSTECTOMY 04/14/2017 - 04/13/2018 CERVICAL BIOPSY W/ LOOP ELEC TRODE EXCISION Medical History Medical History Date Comments Autoimmune disorder Crohn's disease (HCC) 2018 Diabetes mellitus (HCC) GDM Hypertension [...] any clubs o r organizations such as buddhism groups, unions, fraternal or athletic groups, or [...] slept in a penitentiary (including now)? No 05/14/2023 [place] Depression Scale Answer Date Recorded [place] Depression Scale Total 0 06/24/2023 The thought [...] Legal Sex Female 7:54 PM MEDICAL OFFICE TECHNICIAN Gender Identity Not on file Sexual [...] el McKin ley, MD Complications:Pre eclampsia Delivery Location:[facility] Main C ampus ([facility] 58LD) 2023 Term 38w 4d 0h 05m 0h 05m 3.17 kg (6 lb 15.8 oz) F Vagina l Epidur al N Livin g 8 9 Capri cruz Huysm an, Lay MD Delivery Location:[facility] Main C ampus ([facility] 58LD) Last Filed Vital Signs Vital Sign Reading Time Taken Comments Blood Pressure 112/78 08/05/2024 3:28 PM CDT Pulse 94 08/05/2024 3:28 PM CDT Temperature 36.7 C (98.1 F) 08/05/2024 3:28 PM CDT Respiratory Rate 16 05/14/2023 7:00 AM MEDICAL OFFICE TECHNICIAN Oxygen Saturation 96% 12/11/2023 2:53 PM CDT Inhaled Oxygen Concentration - - Weight 98 kg (216 lb) 08/05/2024 3:28 PM CDT Height 157.5 cm (5' 2) 08/05/2024 3:28 PM CDT Body Mass Index 39.51 08/05/2024 3:28 PM CDT Plan of Treatment Health Maintenance Due Date Last Done Comments Cervical Cancer Screening 1992 Hepatitis B Screening 2010 Regular Well Visit/Exam 18-64 2010 Varicella Vaccines (2 of 2 - 13+ 2-dose series) 11/04/2012 10/07/2012 Covid-19 Vaccine ( - season) 2023 12/01/2020 Depression Screening 06/23/2024 06/24/2023 Influenza Vaccine (Season Ended) 2024 01/24/2023, 02/12/2021, 02/07/2017, Additional history exists DTaP/Tdap/Td Vaccine (3 - Td or Tdap) 02/21/2033 02/21/2023, 04/26/2021 Pneumococcal vaccine <65 (3 of 3 - PCV20 or PCV21) 2042 08/05/2024, 03/30/2019, 01/26/2019 Hepatitis C Screening Completed 10/04/2022 , 11/24/2020, 06/09/2020 HPV Vaccines Aged Out No longer eligi ble based on patient's age to complete this topic Medical Devices Implanted Type Area Enterprise Resource Planning Consultant Device Identifier Shelf Expiration Date Model / Serial / Lot Plate/Screws In Right Ankle Ankle Procedures Procedure Name Priority Date/Time Associated Diagnosis Comments CALPROTECTIN, FECAL Routine 08/24/2024 9 :23 AM CDT Crohn's disease of small intestine with other complication (HCC) Change in bowel habits Diarrhea, unspecified type Abdominal pain CLOSTRIDIUM DIFFICILE TOXIN/GDH WITH REFLEX TO PCR Routine 08/24/2024 9:22 AM CDT Crohn's disease of small intestine with other complication (HCC) Change in bowel habits Diarrhea, unspecified type Abdominal pain TB TEST, QUANTIFERON GOLD Routine 08/23/2024 12:39 PM CDT CRP (ACUTE PHASE) Routine 08/23/2024 12: 39 PM CDT CBC WITH AUTO DIFFERENTIAL Routine 08/23/2024 12:39 PM CDT COMPREHENSIVE METABOLIC PANEL Routine 08/23/2024 12:39 PM CDT IRON PROFILE W/ IBC Routine 08/23/2024 1 2:39 PM CDT Crohn's disease of small intestine with other complication (HCC) VITAMIN B12 Routine 08/23/2024 12:39 PM CDT Crohn's disease of small intestine with other complication (HCC) VITAMIN D 25 HYDROXY Routine 08/23/2024 12:39 PM CDT Crohn's disease of small intestine with other complication (HCC) HEPATITIS C ANTIBODY Routine 10/04/2022 10:07 AM CDT Crohn's disease of small intestine with other complication (HCC) Supervision of high-risk , first trimester from Last 3 Months or Most Recently Relevant to Health Maintenance Results * Calprotectin, fecal (08/24/2024 9:23 AM CDT) Calprotectin, Stool 74 mcg/g [facility], Comment: Reference Range: <50 Normal 50-120 Borderline >120 Elevated Calprotectin in Crohn's disease and ulcerative colitis can be five to several thousand times above the reference population (50 mcg/g or less). Levels are usually 50 mcg/g or less in healthy patients and with irritable bowel syndrome. Repeat testing in 4-6 weeks is suggested for borderline values. Stool 08/24/2024 9:23 AM CDT 08/25/2024 4:02 AM CDT Trent Severino MD LAB BODY FLUIDS AND STOOLS OR DERABLES Final Result Performing Organization Address [facility] Co de Phone Number [facility], [address] [place] [address] * Clostridium difficile Toxin/GDH with Reflex to PCR Stool (08/24/2024 9:22 AM CDT) C difficile Toxins/GDH w/refl to PCR [facility] Comment: CLOSTRIDIUM DIFFICILE TOXIN/GDH W/REFL TO PCR Micro Number: [id number] Test Status: Final Specimen Source: Stool Specimen Quality: Adequate GDH Antigen: Not Detected Toxin A and B: Not Detected COMMENT: No toxigenic C. difficile detected For additional information, please refer to http://education.[place]/faq/TIT584 (This link is being provided for informational/educational purposes only.) Stool 08/24/2024 9:22 AM CDT 08/25/2024 4:00 AM CDT Trent Severino MD LAB MICROBIOLOGY - GENERAL OR DERABLES Final Result Performing Organization Address [facility]/ZIP Co de Phone Number [facility] [address] [place] [address] * TB test, quantiferon gold (08/23/2024 12:39 PM CDT) [facility] QuantiFERON(R)-T B Gold Plus, 1 Tube NEGATIVE NEGATIVE [facility] Comment: Negative test result. M. tuberculosis complex infection unlikely. NIL 0.07 IU/mL [facility] MITOGEN-NIL 9.47 IU/mL [facility] TB1-NIL <0.00 IU/mL [facility] TB2-NIL <0.00 IU/mL [facility] Comment: The Nil [...] T-lymphocytes. For additional information, please refer to https://education.[employer]/faq/ZXI337 (This link is being provided for informational/ educational purposes only.) 08/23/2024 12:3 9 PM CDT 08/23/2024 12:40 PM CDT us Lizz Clark BIOMEDICAL SERVICE ENGINEER LAB BLOOD ORDERABLES Final Result [facility] [address] [place] [address] * (ABNORMAL) Iron profile w/ IBC (08/23/2024 12:39 PM CDT) [facility] Iron 33(L) 40 - 190 mcg/dL [facility] TIBC 378 250 - 450 mcg/dL (calc) [facility] Iron saturation 9(L) 16 - 45 % (calc) [facility] Blood 08/23/2024 12:3 9 PM CDT 08/23/2024 12:40 PM CDT us Lizz Clark BIOMEDICAL SERVICE ENGINEER LAB BLOOD ORDERABLES Final Result [facility] [address] [place] [address] * (ABNORMAL) CBC with auto differential (08/23/2024 12:39 PM CDT) WBC 6.6 3.8 - 10.8 Thousand/u L [facility] RBC, POC 5.00 3.80 - 5.10 Million/uL [facility] Hgb 13.0 11.7 - 15.5 g/dL [facility] Hct 40.6 35.0 - 45.0 % [facility] MCV 81.2 80.0 - 100.0 fL [facility] MCH 26.0(L) 27.0 - 33.0 pg [facility] MCHC 32.0 32.0 - 36.0 g/dL [facility] Comment: For adults, a slight decrease in the calculated MCHC value (in the range of 30 to 32 g/dL) is most likely not clinically significant; however, it should be interpreted with caution in correlation with other red cell parameters and the patient's clinical condition. Rdw 13.3 11.0 - 15.0 % [facility] Platelets 301 140 - 400 Thousand/u L [facility] MPV 10.4 7.5 - 12.5 fL [facility] Neutrophils, abs 3,412 1,500 - 7,800 cells/uL [facility] Lymphocytes, abs 2,488 850 - 3,900 cells/uL [facility] Monocyte abs 370 200 - 950 cells/uL [facility] Eosinophils, abs 290 15 - 500 cells/uL [facility] Basophils, abs 40 0 - 200 cells/uL [facility] Neutrophils 51.7 % [facility] Lymphocyte pct 37.7 % [facility] Monocytes 5.6 % [facility] Eosinophils 4.4 % [facility] Basophils 0.6 % [facility] 08/23/2024 12:3 9 PM CDT 08/23/2024 12:40 PM CDT Lizz Clark LAB BLOOD ORDERABLES Final Result Performing Organization Address [facility] de Phone Number [facility] [address] [place] [address] * (ABNORMAL) Vitamin D 25 hydroxy (08/23/2024 12:39 PM CDT) [facility] Vitamin D 25-OH 29(L) 30 - 100 ng/mL [facility] Comment: Vitamin D Status 25-OH Vitamin D: Deficiency: <20 ng/mL Insufficiency: 20 - 29 ng/mL Optimal: > or = 30 ng/mL For 25-OH Vitamin D testing on patients on D2-supplementation and patients for whom quantitation of D2 and D3 fractions is required, the Quest[facility]ure[facility](TM) 25-OH VIT D, (D2,D3), LC/MS/MS is recommended: order code 14959 (patients >2yrs). See Note 1 Note 1 For additional information, please refer to http://education.[place]/faq/IUT536 (This link is being provided for informational/ educational purposes only.) Blood 08/23/2024 12:3 9 PM CDT 08/23/2024 12:40 PM CDT Lizz Clark BIOMEDICAL SERVICE ENGINEER LAB BLOOD ORDERABLES Final Result Performing Organization Address [facility] Co de Phone Number [facility] [address] [place] [address] * (ABNORMAL) CRP (acute phase) (08/23/2024 12:39 PM CDT) [facility] C-RP 29.6(H) <8.0 mg/L [facility] 08/23/2024 12:3 9 PM CDT 08/23/2024 12:40 PM CDT Lizz Clark BIOMEDICAL SERVICE ENGINEER LAB BLOOD ORDERABLES Final Result Performing Organization Address [facility]/ZIP Co de Phone Number [facility] [address] [place] [address] * Vitamin B12 (08/23/2024 12:39 PM CDT) [facility] Vitamin B12 472 200 - 1,100 pg/mL [facility] Blood 08/23/2024 12:3 9 PM CDT 08/23/2024 12:40 PM CDT Lizz Clark BIOMEDICAL SERVICE ENGINEER LAB BLOOD ORDERABLES Final Result Performing Organization Address [facility] de Phone Number [facility] [address] [place] [address] * (ABNORMAL) Comprehensive metabolic panel (08/23/2024 12:39 PM CDT) [facility] Glucose 102(H) 65 - 99 mg/dL [facility] Comment: Fasting reference interval For someone without known diabetes, a glucose value between 100 and 125 mg/dL is consistent with prediabetes and should be confirmed with a follow-up test. BUN 10 7 - 25 mg/dL [facility] Creatinine 0.58 0.50 - 0.97 mg/dL [facility] eGFR 123 > OR = 60 mL/min/1.7 3m2 [facility] BUN/creat ratio SEE NOTE: 6 - 22 (calc) [facility] Comment: Not Reported: BUN and Creatinine are within reference range. Sodium 144 135 - 146 mmol/L [facility] Potassium, pl 3.7 3.5 - 5.3 mmol/L [facility] Chloride 108 98 - 110 mmol/L [facility] CO2 25 20 - 32 mmol/L [facility] Calcium 8.9 8.6 - 10.2 mg/dL [facility] Protein, sr 7.1 6.1 - 8.1 g/dL [facility] Albumin 4.1 3.6 - 5.1 g/dL [facility] GLOBULIN 3.0 1.9 - 3.7 g/dL (calc) [facility] Alb/glob ratio 1.4 1.0 - 2.5 (calc) [facility] Bilirubin, total 0.3 0.2 - 1.2 mg/dL [facility] Alk phos 83 31 - 125 U/L [facility] AST 20 10 - 30 U/L [facility] ALT (SGPT) 25 6 - 29 U/L [facility] 08/23/2024 12:3 9 PM CDT 08/23/2024 12:40 PM CDT us Lizz Clark NP LAB BLOOD ORDERABLES Final Result [facility] [address] [place] [address] * Hepatitis C antibody (10/04/2022 10:07 AM CDT) Hep C Ab Nonreactive Nonreactive [facility] Comment:Antibodies to HCV no t detected. Does NOT exclude the possibility of recent exposure to HCV. Current interpretive data was last revised on 21 Blood 10/04/2022 10:0 7 AM CDT 10/04/2022 11:26 AM CDT Alley Reynoso MD LAB MICROBIOLOGY - GENERAL ORDERABLES Final Result [facility] Department [place] [address] from Last 3 Months or Most Recently Relevant to Health Maintenance Insurance [facility] CHOICE PLUS CHOICE PRF [place] [facility] CHOICE PLUS [place]THE[place] ACCESS [facility] Address: [address] [place] [address] [place] [id number] [facility] CHOICE PLUS [place] [id number] Advance Directives For more information, please contact: [phone] * Full Code (Latest Code Status on [...] in case of cardiopulmonary arrest Care Teams Dessert Cup Machine Feeder Relationship Specialty Start Date End Date Judy Fishman NP PCP - General 07/31/18 Jessica Martínez MD Consulting Physician Obstetrics and Gynecology 11/16/20
--- OUTSIDE RECORDS SUMMARY | 2024-09-12 18:17 | XMS_ITS | Referral Summary ---
Author Organization [facility] Address [address] [place] [address] Care Team Providers Care Conservation Enforcement Officer Name Role Phone Judy Fishman FLOOR SURFACER Primary Care Provider + Jessica Martínez MD Unavailable [phone] Encounters Date Type Department Care Team Description 08/30/2024 Orders Only [facility] [address] [place] [address] [place] [address] Trent Severino MD 08/27/2024 Orders Only [facility] [address] [place] [id number] Trent Severino MD 08/26/2024 Orders Only [facility] [address] [place] [address] Trent Severino MD 08/26/2024 Documentation [facility] [address] [place] [id number] Abiola Silverman RN Treatment Plan Update 08/23/2024 Telephone [facility] [address] [place] [phone] Hermelinda Don GI Problem 08/09/2024 Documentation [facility] [address] [place] [address] [place] [id number] Abiola Silverman, RU Treatment Plan Update (08/05/2024 rov) 08/05/2024 3:30 PM CDT Office Visit [facility] [address] [facility] 12[address] [place] [address] Lizz Clark, BINU Crohn's disease of small intestine with other complication (HCC) (Primary Dx); High risk medications (not anticoagulants) long-term use from Last 3 Months Allergies Active Allergy [...] 8 times per day 200 each 6 023 Active Additional Information Patient not taking.Reported on 08/05/2024 lancets 33 gauge misc CHECK GLUCOSE FASTING AND ONE HOUR AFTER EACH MEAL AND NEEDED, UP TO 8 TIMES PER WEEK 200 each 6 023 Active Additional Information Patient not taking.Reported on 08/05/2024 ferrous sulfate 325 mg (65 mg of elemental iron) tabletIndications :Iron Deficiency Anemia Take 1 tablet (325 mg total) by mouth every other day 15 tablet 3 023 Active Additional Information Patient not taking.Reported on 08/05/2024 docusate sodium (COLACE) 100 mg capsuleIndication s:constipation Take 1 capsule (100 mg total) by mouth 2 (two) times a day as needed for constipation 60 capsule 3 023 Active Additional Information Patient not taking.Reported on 12/11/2023 pen needle, diabetic 33 gauge x 5/32 needle 1 INJECTIONS DAILY DIRECTED 100 each 2 023 Active Additional Information Patient not taking.Reported on 08/05/2024 insulin glargine (LANTUS) 100 unit/mL (3 mL) pen for injection Inject 10 units under the skin in the morning 15 mL 3 023 Active Additional Information Patient not taking.Reported [...] at home. MR x1 on admission to [facility]. On ASA 81 mg. Denies WHITE, [...] vaginal Assessment & Plan (04/03/2023 2:06 PM PIPELINE SUPERINTENDENT): Asymptomatic, well controlled. Assessment & Plan (03/06/2023 1:18 AM PIPELINE SUPERINTENDENT): Well controlled. Assessment & Plan (08/31/2021 5:47 [...] activity Assessment & Plan (05/25/2021 9:26 AM PIPELINE SUPERINTENDENT): Discussed recommendation for both stool softener and [...] disease. Assessment & Plan (03/30/2019 3:48 PM PIPELINE SUPERINTENDENT): Ileal Crohn's disease. Diagnosed 2018. Started entyvio [...] Plan [] Send weekly glucose log through [employer] for review [] Twice weekly NSTs scheduled next Fri/Fri, complete for BPP and growth next week to evaluate size [x] Serial growth ultrasounds, complete [] Plan delivery by 39 weeks - IOL scheduled 2/2 [] 2 hour gtt 6 weeks Assessment & Plan (03/06/2023 1:17 AM PIPELINE SUPERINTENDENT): Has only taken 1 dose of increased lantus dose. Thus will continue for now. Reviewed how to transition from AM dosing to PM dosing and provided written schedule. Assessment & Plan (02/22/2023 11:29 AM PIPELINE SUPERINTENDENT): Recommend initiation of lantus 10U morning given [...] delivery Assessment & Plan (03/06/2023 1:18 AM PIPELINE SUPERINTENDENT): BP at goal today. Assessment & Plan (02/22/2023 11:27 AM PIPELINE SUPERINTENDENT): We reviewed recommendation in future to present [...] [x] Blue Team Referring Provider: Trent XAVIER) [phone] [] or Medicare Insurance [x] Dating Criteria: [...] vasectomy [x] Method of feeding: Breast [x] Mold Burner: Pb [x] PP Depression Discussed: Assessment & Plan (02/22/2023 11:29 AM PIPELINE SUPERINTENDENT): Provided [email or web address] website to review. Hypertension in [...] # Disposition: Follow up task sent to [facility] scheduling pool. Desires discharge home today. pending bleeding amount Gestational diabetes mellitu s (GDM) in third trimester 04/12/2021 06/12/2021 Overview (06/05/2021): Failed 3 hour gtt Plan for PP 2 hr OGTT Assessment & Plan (05/10/2021 8:56 AM PIPELINE SUPERINTENDENT): BS log reviewed with the majority of values at or under goal. Continue current regimen. Assessment & Plan (04/26/2021 5:10 PM PIPELINE SUPERINTENDENT): Fastings continue to be elevated with a few elevated breakfast PCs. Will adjust bedtime insulin and have patient send log on Friday for review. Assessment & Plan (04/12/2021 1:50 PM PIPELINE SUPERINTENDENT): Counseled today on diagnosed gDM. Discussed goal [...] [x] Blue Team Referring Provider: JESSICA Severino [phone] [facility] Jessica Mauricio: [phone]; [x] Dating Criteria: Embryo Transfer 10/03/20 with JONNATHAN 06/21/21 [x] Labs: Lab Results Component Value Date ABORH B Positive 11/24/2020 IDCOOMB Negative 11/24/2020 [id number] Nonreactive 11/24/2020 LABRPR Nonreactive 11/24/2020 RUBELIGG Reactive [...] [] COVID testing: ordered on for the [place] location, pt letter sent Counselling [x] MOD: IOL scheduled on 06/13/21 at 9PM, pt letter sent [x] Place of delivery: [facility] [] MOC: [x] Method of feeding: breast [x] Mold Burner: [] PP Depression Discussed: should not be given any live vaccines. Assessment & Plan (11/24/2020 3:14 PM CDT): SEROLOGIES NEEDED [] Co-management vs. [] Full MFM Care; [] Red Team [] Blue Team Referring Provider: JESSICA Severino [phone] [facility] Jessica Mauricio: [phone]; [] or Medicare Insurance [x] Dating Criteria: [...] [] MOC: [] Method of feeding: [] Mold Burner: [] PP Depression Discussed: care not yet [...] 10/30/2022 Assessment & Plan (03/30/2019 3:48 PM PIPELINE SUPERINTENDENT): High risk medications: As with all patients [...] Crohn's colitis 10/27/2018 11/08/2018 Obesity 10/27/2018 06/12/2020 Immunizations Immunization Administration Dates [...] in a chcf (including now)? No 05/14/2023 [place] Depression Scale Answer Date Recorded [place] Depression Scale Total 0 06/24/2023 The thought [...] on file Legal Sex Female 7:54 PM PIPELINE SUPERINTENDENT Gender Identity Not on file Sexual Orientation Not on file Last Filed Vital Signs Vital Sign Reading Time Taken Comments Blood Pressure 112/78 08/05/2024 3:28 PM CDT Pulse 94 08/05/2024 3:28 PM CDT Temperature 36.7 C (98.1 F) 08/05/2024 3:28 PM CDT Respiratory Rate 16 05/14/2023 7:00 AM PIPELINE SUPERINTENDENT Oxygen Saturation 96% 12/11/2023 2:53 PM CDT Inhaled Oxygen Concentration - - Weight 98 kg (216 lb) 08/05/2024 3:28 PM CDT Height 157.5 cm (5' 2) 08/05/2024 3:28 PM CDT Body Mass Index 39.51 08/05/2024 3:28 PM CDT Plan of Treatment Not on file Medical Devices Implanted Type Area Automobile Detailer Device Identifier Shelf Expiration Date Model / [...] AM CDT) Calprotectin, Stool 74 mcg/g [facility], Comment: Reference Range: <50 Normal 50-120 [...] 9:23 AM CDT 08/25/2024 4:02 AM CDT us Trent Severino MD LAB BODY FLUIDS AND STOOLS OR DERABLES Final Result [facility], [address] [place] [address] * Clostridium difficile Toxin/GDH with Reflex to PCR Stool (08/24/2024 9:22 AM CDT) C difficile Toxins/GDH w/refl to PCR [email or web address] Comment: CLOSTRIDIUM DIFFICILE TOXIN/GDH W/REFL TO PCR Micro Number: [id number] Test Status: Final Specimen Source: Stool Specimen Quality: Adequate GDH Antigen: Not Detected Toxin A and B: Not Detected COMMENT: No toxigenic C. difficile detected For additional information, please refer to http://education.Alerts/faq/BJM302 (This link is being provided for informational/educational purposes only.) Stool 08/24/2024 9:22 AM CDT 08/25/2024 4:00 AM CDT Trent Severino MD LAB MICROBIOLOGY - GENERAL OR DERABLES Final Result [facility] [address] [place] [address] * TB test, quantiferon gold (08/23/2024 12:39 PM CDT) QuantiFERON(R)-T B Gold Plus, 1 Tube NEGATIVE [...] T-lymphocytes. For additional information, please refer to https://education.[employer]/faq/DPL649 (This link is being provided for informational/ educational purposes only.) 08/23/2024 12:3 9 PM CDT 08/23/2024 12:40 PM CDT Lizz Clark LAB BLOOD ORDERABLES Final Result Performing Organization Address [facility] Co de Phone Number [facility] [address] [place] [address] * (ABNORMAL) Iron profile w/ IBC (08/23/2024 12:39 PM CDT) Pathologist [facility] Iron 33(L) 40 - 190 mcg/dL [facility] TIBC 378 250 - 450 mcg/dL (calc) [facility] Iron saturation 9(L) 16 - 45 % (calc) [facility] Blood 08/23/2024 12:3 9 PM CDT 08/23/2024 12:40 PM CDT Lizz Clark FLOOR SURFACER LAB BLOOD ORDERABLES Final Result Performing Organization Address [facility] Phone Number [facility] [address] [place] [address] * (ABNORMAL) CBC with auto differential (08/23/2024 12:39 PM CDT) Pathologist [facility] WBC 6.6 3.8 - 10.8 Thousand/u L [...] CDT 08/23/2024 12:40 PM CDT Lizz Clark NP LAB BLOOD ORDERABLES Final Result [facility] [address] [place] [address] * (ABNORMAL) Vitamin D 25 hydroxy (08/23/2024 12:39 PM CDT) Pathologist [facility] Vitamin D 25-OH 29(L) 30 - 100 [...] D, (D2,D3), LC/MS/MS is recommended: order code 97266 (patients >2yrs). See Note 1 Note 1 For additional information, please refer to http://education.Alerts/faq/NBE832 (This link is being provided for informational/ educational purposes only.) Blood 08/23/2024 12:3 9 PM CDT 08/23/2024 12:40 PM CDT Lizz Clark FLOOR SURFACER LAB BLOOD ORDERABLES Final Result Performing Organization Address [facility]/ZIP Co de Phone Number [facility] [address] [place] [address] * (ABNORMAL) CRP (acute phase) (08/23/2024 12:39 PM CDT) C-RP 29.6(H) <8.0 mg/L [email or web address] 08/23/2024 12:3 9 PM CDT 08/23/2024 12:40 PM CDT Lizz Clark FLOOR SURFACER LAB BLOOD ORDERABLES Final Result Performing Organization Address [facility] Co de Phone Number [facility] [address] [place] [address] * Vitamin B12 (08/23/2024 12:39 PM CDT) Vitamin B12 472 200 - 1,100 pg/mL [facility] Blood 08/23/2024 12:3 9 PM CDT 08/23/2024 12:40 PM CDT Lizz Clark NP LAB BLOOD ORDERABLES Final Result Performing Organization Address [facility]/ZIP Co de Phone Number [facility] [address] [facility] [place] [address] * (ABNORMAL) Comprehensive metabolic panel (08/23/2024 12:39 PM CDT) Glucose 102(H) 65 - 99 mg/dL [facility] [...] CDT 08/23/2024 12:40 PM CDT Lizz Clark NP LAB BLOOD ORDERABLES Final Result [facility] [address] [facility] [place] [address] * Hepatitis C antibody (10/04/2022 10:07 AM CDT) Hep C Ab Nonreactive Nonreactive [facility] Comment:Antibodies to HCV no t detected. Does NOT exclude the possibility of recent exposure to HCV. Current interpretive data was last revised on 21 Blood 10/04/2022 10:0 7 AM CDT 10/04/2022 11:26 AM CDT us Alley Reynoso MD LAB MICROBIOLOGY - GENERAL ORDERABLES Final Result Performing Organization Address City/[facility] Co de Phone Number [facility] Department [place] [address] from Last 3 Months or Most Recently Relevant to Health Maintenance Insurance [facility] CHOICE PLUS [facility] HMO/PPO Address: [facility] [address] [place] [address] CHOICE PRF [place] [facility] CHOICE PLUS [facility] HMO/PPO Address: [address] [address] [place] [address] [facility] ACCESS [facility] CHOICE PLUS [facility] HMO/PPO Address: [address] [place] [address] [facility] CHOICE PLUS [facility] HMO/PPO Address: [address] [place] [address] Advance Directives For more information, please contact: [phone] * Full Code (Latest Code Status on [...] in case of cardiopulmonary arrest Care Teams Conservation Enforcement Officer Relationship Specialty Start Date End Date Judy Fishman NP PCP - General 07/31/18 Jessica Martínez MD Consulting Physician Obstetrics and Gynecology 11/16/20
--- OUTSIDE RECORDS SUMMARY | 2024-09-12 18:17 | XMS_ITS | Data Portability ---
Author Organization [place] - [facility], Main Office Address [address] [place] [address] Assessment No assessment recorded. Plan of Treatment [...] By Organization Details Last Modified Time 11/22/2022 [id number] 6 mo fu crohn's, htn, etc. [email or web address] [...] Care in Diabe maribell(A DA). Not Available [address], [address], 04/13/2022 06:48:05 04/12/20 22 04/13/2022 TSH W/REF ADAL TO FT4 TSH w/reflex to FT4 0.53 mIU/L normal Refer ence Range > or = 20 Years 0.40- 4.50 Pregn hermann Range s First trime ster 0.26- 2.66 Secon d trime ster 0.55- 2.73 Third trime ster 0.43- 2.91 Not Available [address], [address], 04/13/2022 06:48:04 04/12/20 22 04/13/2022 CBC (INCL UDES DIFF/ PLT) white blood cell count 9.9 thous and/u L 3.8-10 .8 normal Not Available [address], [address], 04/13/2022 06:48:04 04/12/20 22 04/13/2022 CBC (INCL UDES DIFF/ PLT) red blood cell count 4.57 dalila on/uL 3.80-5 .10 normal Not Available [address], [address], 04/13/2022 06:48:04 04/12/20 22 04/13/2022 CBC (INCL UDES DIFF/ PLT) hemoglobin 11.7 g/dL 11.7-1 5.5 normal Not Available [address], [address], 04/13/2022 06:48:04 04/12/20 22 04/13/2022 CBC (INCL UDES DIFF/ PLT) hematocrit 36.6 % 35.0-4 5.0 normal Not Available [address], [address], 04/13/2022 06:48:04 04/12/20 22 04/13/2022 CBC (INCL UDES DIFF/ PLT) MCV 80.1 fL 80.0-1 00.0 normal Not Available [address], [address], 04/13/2022 06:48:04 04/12/20 22 04/13/2022 CBC (INCL UDES DIFF/ PLT) MCH 25.6 pg 27.0-3 3.0 low Not Available [address], [address], 04/13/2022 06:48:04 04/12/20 22 04/13/2022 CBC (INCL UDES DIFF/ PLT) MCHC 32.0 g/dL 32.0-3 6.0 normal Not Available [address], [address], 04/13/2022 06:48:04 04/12/20 22 04/13/2022 CBC (INCL UDES DIFF/ PLT) RDW 15.1 % 11.0-1 5.0 high Not Available [address], [address], 04/13/2022 06:48:04 04/12/20 22 04/13/2022 CBC (INCL UDES DIFF/ PLT) platelet count 354 thous and/u L 140-40 0 normal Not Available [address], [address], 04/13/2022 06:48:04 04/12/20 22 04/13/2022 CBC (INCL UDES DIFF/ PLT) MPV 10.3 fL 7.5-12 .5 normal Not Available [address], [address], 04/13/2022 06:48:04 04/12/20 22 04/13/2022 CBC (INCL UDES DIFF/ PLT) absolute neutrophils 6475 cells /uL 1500-7 800 normal Not Available [address], [address], 04/13/2022 06:48:04 04/12/20 22 04/13/2022 CBC (INCL UDES DIFF/ PLT) absolute lymphocytes 2604 cells /uL 850-39 00 normal Not Available [address], [address], 04/13/2022 06:48:04 04/12/20 22 04/13/2022 CBC (INCL UDES DIFF/ PLT) absolute monocytes 465 cells /uL 200-95 0 normal Not Available [address], [address], 04/13/2022 06:48:04 04/12/20 22 04/13/2022 CBC (INCL UDES DIFF/ PLT) absolute eosinophils 317 cells /uL 15-500 normal Not Available [address], [address], 04/13/2022 06:48:04 04/12/20 22 04/13/2022 CBC (INCL UDES DIFF/ PLT) absolute basophils 40 cells /uL 0-200 normal Not Available [address], [address], 04/13/2022 06:48:04 04/12/20 22 04/13/2022 CBC (INCL UDES DIFF/ PLT) neutrophils 65.4 % normal Not Available [address], [address], 04/13/2022 06:48:04 04/12/20 22 04/13/2022 CBC (INCL UDES DIFF/ PLT) lymphocytes 26.3 % normal Not Available [address], [address], 04/13/2022 06:48:04 04/12/20 22 04/13/2022 CBC (INCL UDES DIFF/ PLT) monocytes 4.7 % normal Not Available [address], [address], 04/13/2022 06:48:04 04/12/20 22 04/13/2022 CBC (INCL UDES DIFF/ PLT) eosinophils 3.2 % normal Not Available [address], [address], 04/13/2022 06:48:04 04/12/20 22 04/13/2022 CBC (INCL UDES DIFF/ PLT) basophils 0.4 % normal Not Available [address], [address], 04/13/2022 06:48:04 04/12/20 22 04/13/2022 COMPR EHENS MONSTER METAB OLIC PANEL glucose 93 mg/dL 65-99 normal Fasti ng refer ence inter vanessa Not Available [address], [address], 04/13/2022 06:48:03 04/12/20 22 04/13/2022 COMPR EHENS MONSTER METAB OLIC PANEL urea nitrogen (BUN) 10 mg/dL 7-25 normal Not Available [address], [address], 04/13/2022 06:48:03 04/12/20 22 04/13/2022 COMPR EHENS MONSTER METAB OLIC PANEL creatinine 0.59 mg/dL 0.50-0 .96 normal Not Available [address], [address], 04/13/2022 06:48:03 04/12/20 22 04/13/2022 COMPR EHENS [...] kdoqi /gfr% 5Fcal culat or Not Available [address] [address] [place], [address], 04/13/2022 06:48:03 04/12/20 22 04/13/2022 COMPR EHENS MONSTER METAB OLIC PANEL BUN/creatini ne ratio not applic able (calc ) 6-22 Not Available [address], [address], 04/13/2022 06:48:03 04/12/20 22 04/13/2022 COMPR EHENS MONSTER METAB OLIC PANEL sodium 141 mmol/ L 135-14 6 normal Not Available [address], [address], 04/13/2022 06:48:03 04/12/20 22 04/13/2022 COMPR EHENS MONSTER METAB OLIC PANEL potassium 4.4 mmol/ L 3.5-5. 3 normal Not Available [address], [address], 04/13/2022 06:48:03 04/12/20 22 04/13/2022 COMPR EHENS MONSTER METAB OLIC PANEL chloride 107 mmol/ L 98-110 normal Not Available [address], [address], 04/13/2022 06:48:03 04/12/20 22 04/13/2022 COMPR EHENS MONSTER METAB OLIC PANEL carbon dioxide 27 mmol/ L 20-32 normal Not Available [address] [address] [place], [address], 04/13/2022 06:48:03 04/12/20 22 04/13/2022 COMPR EHENS MONSTER METAB OLIC PANEL calcium 8.9 mg/dL 8.6-10 .2 normal Not Available [address], [address], 04/13/2022 06:48:03 04/12/20 22 04/13/2022 COMPR EHENS MONSTER METAB OLIC PANEL protein, total 6.9 g/dL 6.1-8. 1 normal Not Available [address], [address], 04/13/2022 06:48:03 04/12/20 22 04/13/2022 COMPR EHENS MONSTER METAB OLIC PANEL albumin 3.9 g/dL 3.6-5. 1 normal Not Available [address], [address], 04/13/2022 06:48:03 04/12/20 22 04/13/2022 COMPR EHENS MONSTER METAB OLIC PANEL globulin 3.0 g/dL_ (calc ) 1.9-3. 7 normal Not Available [address], [address], 04/13/2022 06:48:03 04/12/20 22 04/13/2022 COMPR EHENS MONSTER METAB OLIC PANEL albumin/glob ulin ratio 1.3 (calc ) 1.0-2. 5 normal Not Available [address], [address], 04/13/2022 06:48:03 04/12/20 22 04/13/2022 COMPR EHENS MONSTER METAB OLIC PANEL bilirubin, total 0.4 mg/dL 0.2-1. 2 normal Not Available [address], [address], 04/13/2022 06:48:03 04/12/20 22 04/13/2022 COMPR EHENS MONSTER METAB OLIC PANEL alkaline phosphatase 77 U/L 31-125 normal Not Available [address] [place], [address], 04/13/2022 06:48:03 04/12/20 22 04/13/2022 COMPR EHENS MONSTER METAB OLIC PANEL AST 12 U/L 10-30 normal Not Available [address] [address] [place], [address], 04/13/2022 06:48:03 04/12/20 22 04/13/2022 COMPR EHENS MONSTER METAB OLIC PANEL ALT 17 U/L 6-29 normal Not Available [address] [place], [address], 04/13/2022 06:48:03 04/12/20 22 04/13/2022 LIPID PANEL , STAND DUSTIN cholesterol, total 132 mg/dL <200 normal Not Available [address], [address], 04/13/2022 06:48:03 04/12/20 22 04/13/2022 LIPID PANEL , STAND DUSTIN HDL cholesterol 36 mg/dL > or = 50 low Not Available [address], [address], 04/13/2022 06:48:03 04/12/20 22 04/13/2022 LIPID PANEL , STAND DUSTIN triglyceride s 98 mg/dL <150 normal Not Available [address], [address], 04/13/2022 06:48:03 04/12/20 22 04/13/2022 LIPID PANEL [...] 2061- 2068 (http ://ed ucati on.Qu Alexey [employer]. com/f aq/FA Q164) Not Available [address], [place], [address], 04/13/2022 06:48:03 04/12/20 22 04/13/2022 LIPID PANEL , STAND DUSTIN chol/HDLC ratio 3.7 (calc ) <5.0 normal Not Available [address], [place], [address], 04/13/2022 06:48:03 04/12/20 22 04/13/2022 LIPID PANEL , STAND DUSTIN non HDL cholesterol 96 mg/dL _(kim c) <130 normal For patie nts with diabe maribell plus 1 major ASCVD risk facto r, treat ing to a non-H DL-C goal of <100 mg/dL (LDL- C of <70 mg/dL ) is toby schultz n. Not Available [facility] [address] , [place], [address], 04/13/2022 06:48:03 Result Notes None recorded. Problems Name Problem SNOMED Code Status Onset Date Resolution Date Notes Provider Name and Address Organization Details Recorded Time Abscess 770000896 Completed Not Available [facility] 3 09:24:18 Acute sinusiti s 98535800 Completed Not Available [facility] 3 09:24:18 Pain in throat 295682584 Completed Not Available [facility] 3 09:24:18 Dry skin 20616486 Completed 201612/03/2016 Not Available [facility] 3 09:24:19 Impacted cerumen 97720290 Completed 201612/03/2016 Not Available [facility] 3 09:24:19 Fluid level behind tympanic membrane Completed Not Available [facility] 3 09:24:19 Gastroen teritis 85391684 Completed Not Available [facility] 3 09:24:19 On examinat ion - rash present Completed Not Available [facility] 3 09:24:19 Eruption 655408649 Completed Not Available [facility] 3 09:24:19 Pruritic disorder 949553154 Completed Not Available [facility] 3 09:24:19 Crohn's disease 17327671 Active [address] Trent Severino MD GI. Not Available [facility] 3 09:24:19 Fever 280993864 Completed Not Available [facility] 3 09:24:19 Pharyngi tis 558299841 Completed Not Available [facility] 3 09:24:20 Itching of skin 014404367 Completed Not Available [facility] 3 09:24:20 Cough 81233031 Completed Not Available [facility] 3 09:24:20 Upper respirat ory infectio n 04803790 Completed Not Available [facility] 3 09:24:20 Swelling 79459550 Completed 201612/03/2016 Not Available [facility] 3 09:24:20 Posterio r rhinorrh ea 51462293 Completed Not Available [facility] 3 09:24:20 Congesti on of nasal sinus 47184461 Completed Not Available [facility] 3 09:24:20 Fatigue 70828935 Completed Not Available [facility] 3 09:24:21 Obese 275586206 Active 2022 Judy Fishman NP [address] [facility], [facility] [address], [place], [address] , [facility] 3 08:20:25 Problem Notes None recorded. Medical Equipment None Reported. Allergies Allergen ID Allergen Name Allergen Category Reaction Reaction Severity Criticality Documentation Date Start Date Code Code System Note Provider Name and Address Organization Details Recorded Time 28939 Substance with sulfonami de structure and antibacte rial mechanism of action (substanc e) medicatio n anaphylax is Not available Not available 06/12/2022 32756 8003 SNOMED Not Available [facility] 3 09:27:25 37119 Omnicef medicatio n anaphylax is Not available Not available 06/12/2022 52491 RxNorm Not Available [facility] 3 09:27:25 84055 morphine medicatio n itching Not available Not available 06/12/2022 7052 RxNorm Not Available [facility] 3 09:27:25 20227 iodine medicatio n rash moderate Not available 06/12/2022 5933 RxNorm Used iodin e to prep for gallb ladde r remov al Not Available [facility] 3 09:27:26 69475 clindamyc in Not available Not available Not available Not available 06/12/2022 2582 RxNorm Not Available [facility] 3 09:27:26 Medications Name Sig Start Date Stop Date Status Note LastModified by Organization Details LastModified Time cyclobenz aprine 10 mg tablet TK 1 T PO HS 09/26 completed as needed Not Available Not Available Not Available metformin 500 mg tablet Take 1 tablet twice a day by oral route for 90 days. active Pt stopped taking awhile ago-- [employer] PRES[employer] ES Not Available Not Available Not [...] Available Not Available norgestim ate-ethin yl estradiol 0.18mg/0. 215mg/0.2 5mg-0.035 mg(28)tab let Take 1 tablet every day by oral [...] Available Not Available Not Available Estarylla 0.25 mg-0.035 mg tablet TAKE 1 TABLET BY MOUTH DAILY 09/28 completed Not Available Not Available Not Available Minastrin 24 Fe 1 mg-20 mcg (24)/75 mg (4) chewable tablet active Not Available Not Available Not Available Entyvio 300 mg intraveno us solution Inject by intraven ous route. active infusion every 4 weeks Not Available Not Available Not Available Fluvirin 6911-3310 45 mcg (15 mcg x 3)/0.5 mL intramusc ular suspensio n ADM 0.5ML UTD active Not Available Not Available No t Available Flucelvax Quad 8353-2624 (PF) 60 mcg (15 mcg x 4)/0.5 [...] % 91 /min 16 /min 97 [degF] 139569. 12 g 132 mm[Hg] 77 mm[Hg] Not Available [facility] 3 09:21:47 Date Recorded Body mass index (BMI) Body height Oxygen saturation Oxygen saturation in Arterial blood by Pulse oximetry Heart rate Body temperature Body weight Systolic blood pressure Diastolic blood pressure Provider Name and Address Organization Details Last Updated DateTime 2 44.4 kg/m2 157.48 cm 97 % 97 % 76 /min 97.8 [degF] 944621. 95 g 118 mm[Hg] 76 mm[Hg] Not Available [facility] 3 09:21:47 Date Recorded Body height Body mass index (BMI) Body weight Body temperature Heart rate Respiratory rate Oxygen saturation Oxygen saturation in Arterial blood by Pulse oximetry Systolic blood pressure Diastolic blood pressure Provider Name and Address Organization Details Last Updated DateTime 3 157.48 cm 43.8 kg/m2 943621. 68 g 97 [degF] 89 /min 16 /min 98 % 98 % 128 mm[Hg] 80 mm[Hg] Judy Carrillo RN [facility] 3 10:07:36 Date Recorded Body mass index (BMI) Body height Oxygen saturation Oxygen saturation in Arterial blood by Pulse oximetry Heart rate Respiratory rate Body temperature Body weight Systolic blood pressure Diastolic blood pressure Provider Name and Address Organization Details Last Updated DateTime 2 45.2 kg/m2 157.48 cm 98 % 98 % 98 /min 18 /min 97.8 [degF] 880052. 32 g 138 mm[Hg] 90 mm[Hg] Not Available [facility] 3 09:21:47 Social History Question Answer Notes LastModified by Organizat ion Details LastModified Time Tobacco Smoking Status Former Smoker Judy Carrillo RN [facility], [facility] 11/22/2022 10:08:27 Do You Have An Advance Directive? No [id number] Information not available 06/12/2022 Is Blood Transfusion Acceptable In An Emergency? Yes Information not available 11/22/2022 What Is Your Level Of Caffeine Consumption? Moderate MIGRATION.[id number] Information not available 06/12/2022 What Is Your Code Status? Full Code Information not available 11/22/2022 In The 14 Days Before Symptom Onset, Have You Had Close Contact With A Laboratory-confir med COVID-19 While That Case Was Ill? No MIGRATION.89107 [id number] Information not available 06/12/2022 In The 14 Days Before Symptom Onset, Have You Had Close Contact With A Person Who Is Under Investigation For COVID-19 While That Person Was Ill? No MIGRATION.20188 [id number] Information not available 06/12/2022 What Type Of Diet Are You Following? REGULAR MIGRATION.85589 15605 Information not available 06/12/2022 Have There Been Any Changes To Your Family Or Social Situation? No MIGRATION.55279 83889 Information not available 06/12/2022 Are There Any Guns Present In Your Home? No MIGRATION.48533 76902 Information not available 06/12/2022 Do You Use Insect Repellent Routinely? Yes Information not available 11/22/2022 Where Do You Live? SingleLevelHouse Information not available 11/22/2022 Do You Have A Medical Power Of Wharf Worker? No MIGRATION.22697 04390 Information not available 06/12/2022 Do You Have Any Pets? Yes Information not available 11/22/2022 What Is Your Relationship Status? Single MIGRATION.19815 82293 Information not available 06/12/2022 Do You Use Your Seat Belt Or Car Seat Routinely? Yes MIGRATION.42680 21540 Information not available 06/12/2022 Do You Have Smoke And Carbon Monoxide Detectors In Your Home? Yes Information not available 11/22/2022 At What Age Did You Start Smoking Tobacco? 19 MIGRATION.25741 64757 Information not available 06/12/2022 Are You Passively Exposed To Smoke? No MIGRATION.58743 36668 Information not available 06/12/2022 Are There Any Smokers In Your House? No MIGRATION.66878 80004 Information not available 06/12/2022 How Much Tobacco Do You Smoke? 0.25 PPD MIGRATION.81395 47067 Information not available 06/12/2022 Do You Participate In Social Media? Yes Information not available 11/22/2022 Do You Use Sunscreen Routinely? Yes Information not available 11/22/2022 Has Tobacco Cessation Counseling Been Provided? No MIGRATION.05847 62624 Information not available 06/12/2022 Have You Recently Traveled Abroad? No MIGRATION.27942 73482 Information not available 06/12/2022 Are You Currently In School? No MIGRATION.20162 19183 Information not available 06/12/2022 Do You Have Any Dietary Restrictions? No MIGRATION.38852 53165 Information not available 06/12/2022 Sex: Female Functional Status Question Answer Note LastModified by Organizat ion Details LastModified Time Do you use any illicit or recreational drugs? No MIGRATION.277744 7018 Information not available 06/12/2022 Do you or have you ever used any other forms of tobacco or nicotine? No MIGRATION.098725 1073 Information not available 06/12/2022 What is your level of alcohol consumption? 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 None Information not available 11/22/2022 Mental Status Question Answer Note LastModified by Organization D etails LastModified Time Do you feel stressed (tense, restless, nervous, or anxious, or unable to sleep at night)? [id number] Information not available 11/22/2022 Family History Nothing Reported. Medical History No [...] quadrivalent, preservative 7 completed Not Available [facility] 06/12/2022 09:27:10 Influenza, split virus, trivalent, preservative 6 completed Not Available [facility] 06/12/2022 09:27:11 SARS-COV-2 (COVID-19) vaccine, UNSPECIFIED 2 completed Not Available [facility] 06/12/2022 09:27:11 SARS-COV-2 (COVID-19) vaccine, UNSPECIFIED 1 completed Not Available [facility] 06/12/2022 09:27:11 SARS-COV-2 (COVID-19) vaccine, UNSPECIFIED 1 completed Not Available [facility] 06/12/2022 09:27:11 Influenza, split virus, trivalent, preservative 4 completed Not Available [facility] 06/12/2022 09:27:11 Influenza, split virus, trivalent, preservative 3 completed Not Available [facility] 06/12/2022 09:27:11 varicella 3 completed Not Available [facility] 06/12/2022 09:27:12 Past Encounters Encounter ID Performer Location Encounter Start Date Encounter Closed Date Diagnosis/Indication Diagnosis SNOMED-CT Code Diagnosis ICD10 Code Diagnosis Note [id number] Atilio Calle MD [address] [address] 01/04/2021 00:00:00 01/04/2021 15:26:21 [id number] Atilio Calle MD [address] [address] 09/28/2021 00:00:00 09/28/2021 12:11:20 [id number] Atilio Calle MD [address] [address] 03/29/2022 00:00:00 03/29/2022 13:39:51 [id number] Atilio Calle MD [address] [address] 05/03/2022 00:00:00 05/03/2022 10:36:37 [id number] Judy Fishman NP [address] [address] 11/22/2022 09:51:09 11/22/2022 10:44:14 Crohn's disease 36093253 K50.90 Seeing GI. Stable. On biologic. Fighting insurance currently to get medication covered. Getting through home health and working great, every 4 weeks. Obese 964299720 E66.9 Diet and exercise. [id number] Z33.1 currently 14 weeks with daughter and JONNATHAN 05/23/23 Health Concerns Section Related Observation LastModified by Organization Detai ls LastModified Time None Recorded Concern Status LastModified by Organization Details LastModified Time None Recorded Advance Directives Directive N: Payers Encounter Date Sequence Insurance Name Policy Number Policy [place] Covered Member ID L[place] Member ID Guarantor Name 11/22/2022 1 [employer] - [facility] [id number] Ramírez Mancilla [id number] Liliana Mancilla Notes Date Note Type Note Provider Name and Address Organization Details Recorded Time 11/22/2022 text/html Here for 6 mo fu . BP- Stable. on ASA 81 mgCrohn's disease- Getting home health to provide medication.Obese- Overweight Currently 14 weeks . Hx pre-eclampsia on ASA 81 mg. Working as usual. JONNATHAN: may 23, but son was 3 weeks early. Judy Fishman NP [address] [facility], [facility] [address], [place], [address], [facility] [email or web address] 11/22/2022 10:42:56 OBGyn Episode No OBEpisode recorded.
== END 2024-09-12 17:00 | disposition home or self-care (01) ==
PROVIDERS: Emergency Provider Nurse Practitioner Family; PCP Nurse Practitioner Family
DX: L25.9 Unspecified contact dermatitis, unspecified cause (principal); Z87.891 Personal history of nicotine dependence; K50.90 Crohn's disease, unspecified, without complications; F98.8 Other specified behavioral and emotional disorders with onset usually occurring in childhood and adolescence; E66.9 Obesity, unspecified; Z68.38 Body mass index [BMI] 38.0-38.9, adult
CPT/HCPCS: 99213; G0463